=== PATIENT | female | born 1945 | race Caucasian/White ===

== ENCOUNTER 2023-04-26 10:14 | Outpatient (OUT) | payer MEDICARE, OTHER, SELFPAY ==
--- NOTE | 2023-04-26 | XR_ITS ---
The [address] [address] Patient Name: HOLA REESE MRN: [id number] date: 1945 Sex: F Assigned Patient Location: [facility] Current Patient Location: [facility] Accession/Order Number: [id number] Exam Date: 04/26/2023 10:44 Report Date: 04/26/2023 16:33 At the request of: REJI SINHA Procedure: XR foot TIARA min 3V EXAM: XR foot TIARA min 3V HISTORY: BILATERAL FOOT PAIN. COMPARISON: None. TECHNIQUE: Routine views of the bilateral feet were obtained. FINDINGS/IMPRESSION: Left foot: 1. There is severe osteoarthritis at the tarsometatarsal, first metatarsophalangeal and at the interphalangeal joints of the toes. 2. There is no evidence of acute fracture or subluxation. Right foot: 1. There is severe osteoarthritis at the first metatarsophalangeal joint and at the tarsometatarsal joints and moderate osteoarthritis at the interphalangeal joints of the toes. 2. There is no evidence of acute fracture or subluxation. Electronically authenticated by: KARIN CAMARGO Date: 04/26/2023 16:33
== END 2023-04-26 10:15 | disposition home or self-care (01) ==
LOC: RAD 10:15
PROVIDERS: Visit Provider Podiatrist Foot & Ankle Surgery
DX: M79.671 Pain in right foot (principal); M79.672 Pain in left foot
CPT/HCPCS: 73630

== ENCOUNTER 2023-11-22 10:57 | Outpatient (OUT) | payer MEDICARE, OTHER, SELFPAY ==
--- NOTE | 2023-11-22 | XR_ITS ---
The [address] [address] Patient Name: HOLA REESE MRN: [id number] date: 1945 Sex: F Assigned Patient Location: Current Patient Location: Accession/Order Number: [id number] Exam Date: 11/22/2023 11:09 Report Date: 11/24/2023 07:01 At the request of: REJI SINHA Procedure: XR foot LT min 3V PROCEDURE: XR foot LT min 3V HISTORY: LEFT FOOT PAIN ; first and 5th toe pain; no known injury COMPARISON: XR foot bilateral 04/26/2023 FINDINGS: BONES:Questionable nondisplaced fracture involving base of 5th metatarsal. SOFT TISSUES:No visible soft tissue swelling. EFFUSION:None visible. OTHER: Negative. XR/XR foot LT min 3V IMPRESSION: 1. No acute or suspicious abnormality the first toe. 2. Nondisplaced fracture versus summation artifact involving base of 5th proximal phalanx. Fracture is suspected. Electronically authenticated by: KENNEDY SUAREZ Date: 11/24/2023 07:01
== END 2023-11-22 10:58 | disposition home or self-care (01) ==
LOC: EC 10:58
PROVIDERS: Visit Provider Podiatrist Foot & Ankle Surgery
DX: M79.672 Pain in left foot (principal)
CPT/HCPCS: 73630

== ENCOUNTER 2023-12-05 13:29 | Outpatient (RCR) | payer MEDICARE, OTHER, SELFPAY | END 2024-01-07 10:03 | disposition home or self-care (01) | LOC: PT 13:29 | PROVIDERS: PCP Family Medicine | DX: M48.061 Spinal stenosis, lumbar region without neurogenic claudication (principal); M47.27 Other spondylosis with radiculopathy, lumbosacral region | CPT/HCPCS: 97012; 97110; 97140; 97162; G0283 ==

== ENCOUNTER 2024-05-21 11:17 | Outpatient (OUT) | payer MEDICARE, OTHER, SELFPAY ==
--- NOTE | 2024-05-21 13:12 | P.CN_ITS ---
Consult Note: HPI Data of Consult Patient: new to practice Consult date: 05/21/24 Requesting Physician: Iker Downs MD Primary Care Provider: ERICH JASSO Family Provider: ERICH JASSO Consult Narrative Reason for consult: bilateral foot, bilateral leg pain Narrative: 79yof who presents for evaluation. longstanding pain throughout bilateral feet. notes occasional sharp, stabbing pain in big toes bilaterally. also notes pain in right thigh. imaging shows multilevel disc displacement with resultant nerve root compression at l3-4 and l5-s1. also has multilevel facet arthropathy noted. is scheduled for what sounds like lumbar epidural steroid injection at [facility] next week. uses gabapentin, which does not help much. denies adverse med side effects. cc:: CC: Iker Downs MD Review of Systems ROS Status of ROS 10 or more systems reviewed and unremark able except as noted in history and below Exam Narrative Exam Narrative: Psych-alert and oriented x 3. Attentive and appropriate, constitutionally normal, displays normal mood and affect per situation. There are no obvious deficits in memory, reasoning, or intellect.? Skin-no obvious rashes, bruising, erythema noted to the patient's area of pain.? Extremities- extremities are warm with minimal edema and palpable pulses. Lumbar-tenderness to palpation noted in the lumbar spine and paraspinal musculature. Pain is not elicited with flexion, extension, and lateral rotation of the lumbar spine. Range of motion is not diminished with these motions. Facet loading maneuvers are negative.? Strength-noted to be unremarkable Sensory-no notable sensory deficits in the bilateral lower extremities to touch or pinprick in all dermatomal distributions with the exception to decreased sensation to the bilateral L5, S1 dermatomal distribution Coordination remains intact.? Gait remains non-antalgic. Assessment and Plan Assessment and Plan (1) Lumbar stenosis with neurogenic claudication: (2) Diabetic peripheral neuropathy: Plan 79yof who presents for evaluation. failed conservative measures, as noted. imaging reviewed, as noted. will try to obtain lumbar mri and emg results from [facility]. discussed that she may benefit from injection at l5-s1 for pain in feet. will assess after she sees [facility]. at this point, will discontinue g abapentin and trial lyrica 100mg tid. may be candidate for qutenza in the future. follow up in 4 weeks.
== END 2024-05-21 11:18 | disposition home or self-care (01) ==
PROVIDERS: PCP Family Medicine; Visit Provider Anesthesiology
DX: M48.062 Spinal stenosis, lumbar region with neurogenic claudication (principal); E11.42 Type 2 diabetes mellitus with diabetic polyneuropathy
CPT/HCPCS: G0463

== ENCOUNTER 2024-07-04 12:56 | Outpatient (OUT) | payer MEDICARE, OTHER, SELFPAY ==
--- NOTE | 2024-07-04 13:40 | PM.CN ---
Consult Note: HPI Data of Consult Requesting Physician: Marizol Holt NP Primary Care Provider: ERICH JASSO Family Provider: ERICH JASSO Consult Narrative Reason for consult: bilateral foot, bilateral leg pain Narrative: 79yof who presents for evaluation. longstanding pain throughout bilateral feet. notes occasional sharp, stabbing pain in big toes bilaterally. also notes pain in right thigh. imaging shows multilevel disc displacement with resultant nerve root compression at l3-4 and l5-s1. also has multilevel facet arthropathy noted. following with [facility] for back pain. unsure what injections shes been recieving. at last visit she was started on pregabalin ordered 100mg TID however shes taking 300mg HS with benefit. cc:: CC: Marizol Holt NP Review of Systems ROS Status of ROS 10 or more systems reviewed and unremarkable except as noted in history and below [facility] Medical History (Updated 05/21/24 @ 14:50 by Ayaka Collazo, RN) Osteoarthritis ?M19.90 - Unspecified osteoarthritis, unspecified site (ICD-10) Neuropathy ?G62.9 - Polyneuropathy, unspecified (ICD-10) Diabetes ?E11.9 - Type 2 diabetes mellitus without complications (ICD-10) Surgical History (Updated 05/21/24 @ 14:50 by Ayaka Collazo, RN) History of carpal tunnel release ?Z98.890 - Other specified postprocedural states (ICD-10) History of knee replacement ?Z96.659 - Presence of unspecified artificial knee joint (ICD-10) History of hysterectomy ?Z90.710 - Acquired absence of both cervix and uterus (ICD-10) Meds Home Medications and Allergies Home Medications ?Medication ?Instructions ?Recorded ?Confirmed ?Type cetirizine 10 mg tablet (24Hour 10 mg PO DAILY PRN allergy symptoms 05/21/24 05/21/24 History Allergy) citalopram 20 mg tablet 20 mg PO DAILY 05/21/24 05/21/24 History clonazepam 0.5 mg tablet 0.5 mg PO DAILY 05/21/24 05/21/24 History fluticasone propionate 50 2 spray intranasal DAILY PRN 05/21/24 05/21/24 History mcg/actuation nasal allergy symptoms spray,suspension (24 Hour Allergy Relief) pravastatin 20 mg tablet 20 mg PO DAILY 05/21/24 05/21/24 History pregabalin 100 mg capsule (Lyrica) 100 mg PO TID #90 caps 05/21/24 Rx tirzepatide 5 mg/0.5 mL 5 mg subcut QWEEK 05/21/24 05/21/24 History subcutaneous pen injector (Mounjaro) pregabalin 100 mg capsule (Lyrica) 100 mg PO TID #90 caps 06/21/24 Rx Allergies Allergy/AdvReac Type Severity Reaction Status Date / Time levofloxacin (From Levaquin) Allergy Rash Verified 05/21/24 13:47 moxifloxacin (From Avelox) Allergy Rash Verified 05/21/24 13:47 aspirin AdvReac Unknown Verified 05/21/24 13:47 Exam Narrative Exam Narrative: Psych-alert and oriented x 3. Attentive and appropriate, constitutionally normal, displays normal mood and affect per situation. There are no obvious deficits in memory, reasoning, or intellect.? Skin-no obvious rashes, bruising, erythema noted to the patient's area of pain.? Extremities- extremities are warm with minimal edema and palpable pulses. Lumbar-tenderness to palpation noted in the lumbar spine and paraspinal musculature. Pain is not elicited with flexion, extension, and lateral rotation of the lumbar spine. Range of motion is not diminished with these motions. Facet loading maneuvers are negative.? Strength-noted to be unremarkable Sensory-no notable sensory deficits in the bilateral lower extremities to touch or pinprick in all dermatomal distributions with the exception to decreased sensation to the bilateral L5, S1 dermatomal distribution Coordination remains intact.? Gait remains non-antalgic. Assessment and Plan Assessment and Plan (1) Lumbar stenosis with neurogenic claudication: (2) Diabetic peripheral neuropathy: Plan pt not interested in interventional therapy with our office, would like to transfer care to [facility]. increase pregabalin 150mg BID, risks vs benefits reviewed. f/u in 6 weeks to assess medication changes unless [facility] takes over.
== END 2024-07-04 12:57 | disposition home or self-care (01) ==
PROVIDERS: PCP Family Medicine; Visit Provider Nurse Practitioner
DX: M48.062 Spinal stenosis, lumbar region with neurogenic claudication (principal); E11.42 Type 2 diabetes mellitus with diabetic polyneuropathy
CPT/HCPCS: G0463

== ENCOUNTER 2024-11-07 12:27 | Outpatient (OUT) | payer MEDICARE, OTHER, SELFPAY ==
--- OUTSIDE RECORDS SUMMARY | 2024-01-31 06:15 | XMS_ITS ---
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 Name Role Phone Mike Gillis DO Primary Care Provider Agustin Valdes [phone] Allergies Allergen (clinical drug ingredient) Drug/Non Drug Allergy documented on EMR Reaction Allergy Type Onset Date Status moxifloxacin Avelox rash Drug Allergy Acti ve Levaquin rash Drug Allergy Active aspirin Aspirin blood platelets Drug Allergy A ctive REASON FOR VISIT 2 month follow up Medications Medication SIG (Take, Route, Frequency, Duration) Notes Start Date End Date Status Multi For Her Active Flogen 250-650 MG as directed Orally Active Gabapentin 300 MG 1 capsule Orally Onc e a day Active Fludrocortisone Acetate 0.1 MG 2 tablets Oral Once a day for 90 days Active Magnesium Active Citalopram Hydrobromide 20 MG 1 tablet Orally Once a day Active Calcium Active Claritin 10 MG 1 tablet Orally Once a day Active Urea 40 % 1 application as nee ded Externally Once a day for 30 days 07/06/2023 Active Ozempic (0.25 or 0.5 MG/DOSE) 2 MG/3ML INJECT 0.5mg SUBCUTANEOUSLY once a WEEK Subcutaneous for 90 Days Active Social History Tobacco Use: Social History Observation Description Date Details (start date - stop date) Never Smoker NA - NA Tobacco Use/Smoking Question Answer Notes Patient is a nonsmoker Vital Signs Height 68 in 01/31/2024 Temperature 97.9 degrees Fahrenheit 01/31/20 24 Heart Rate 80 /min 01/31/2024 Oximetry 97 % 01/31/2024 Encounters Encounter Location Date Provider Diagnosis [facility] (PODIATRY) [address] [place] [address] [place] [address] 01/31/2024 Agustin Bentley Left foot pain M79.672 ; Type 2 diabetes mellitus with diabetic polyneuropathy E11.42 and Primary osteoarthritis, left ankle and foot M19.072 Assessments Encounter Date Diagnosis (ICD Code) Assessment Notes Treatment Notes Treatment Clinical Notes Section Notes 01/31/2024 Left foot pain (ICD-10 - M79.672) Patient follows up relating that she does feel little bit better but her pain is still seemingly out of proportion. I did review her x-rays which were obtained at last appointment and reviewed them with her. Radiographically she does have moderate to severe midfoot arthritis but this does not correspond to the patient's main issue. I believe her pain is likely secondary to neuropathy [place] from her back or diabetes. Gabapentin was increased and has not seemed to help. Patient is scheduled to undergo injections with pain management in a few weeks and I am hopeful that this will help her foot pain. I did provide a prescription for physical therapy for nerve desensitization, range of motion and strengthening. Patient may follow-up with me as needed 01/31/2024 Type 2 diabetes mellitus with diabetic polyneuropathy (ICD-10 - E11.42) 01/31/2024 Primary osteoarthritis, left ankle and foot (ICD-10 - M19.072) Plan Of Treatment Treatment Notes Assessment Notes Left foot pain Patient follows up r elating that she does feel little bit better but her pain is still seemingly out of proportion. I did review her x-rays which were obtained at last appointment and reviewed them with her. Radiographically she does have moderate to severe midfoot arthritis but this does not correspond to the patient's main issue. I believe her pain is likely secondary to neuropathy [place] from her back or diabetes. Gabapentin was increased and has not seemed to help. Patient is scheduled to undergo injections with pain management in a few weeks and I am hopeful that this will help her foot pain. I did provide a prescription for physical therapy for nerve desensitization, range of motion and strengthening. Patient may follow-up with me as needed Progress Notes * Kina DOUGLAS:1945 (78 yo F)Acc No.[id number]:01/31/2024 Follow Up Patient: Phoebe FERRER Provider: Skyler Bentley DPM, MS :1945 A ge:78 Y S ex:Female Date:01/31/2024 Address:[address], [id number] Pcp:Mike Gillis, DO Check In:09:51 AM ESTCheck O ut:10:24 AM EST Subjective: * Chief Complaints: * 2 month follow up * HPI: G eneral: Patient returns to office today for reevaluation of left foot pain. Patient states her pain is a little better . States her left great toe and lateral foot hurts alot & all the time. also has a dorsal foot 'bump' that causes discomfort periodically. She is using a compound from [employer] on her foot but can only use 3 days in a row and then take a break due to causing dry skin to her foot. Describes pain is achy/sore 06/18. * ROS: G eneral/Constitutional: Chills d enies. F ever d enies. W eight gain?denies. W eight loss d enies. S kin: Skin Ulcers d enies. S kin lesion(s) d enies. ? C ardiovascular: Difficulty breathing on exertion d enies. L eg cramps?denies. E lindsay d enies. C hest pain d enies. R espiratory: Difficulty breathing d enies. D yspnea d enies.?Cough d enies. G astrointestinal: Diarrhea d enies. N ausea d enies. V omiting?denies. M usculoskeletal: Bone/Joint Symptoms d enies. C care home Pain d enies.?Leg cramps d enies. N eurologic: Numbness d enies. T ingling d enies . G ait abnormality d enies. ? H ematology: Anemia D enies. E asy bruising d enies. ? A ll Other Systems: Review of Systems (ROS) S ee HPI for details,All others negative except those mentioned in HPI. * Active Problem List M20.21 Hallux rigidus, righ t foot Modified On:05/03/2023W/U Status:confirmed M77.41 Metatarsalgia, right foot Modified On:05/03/2023W/U Status:confirmed S92.302A Fracture of unspecif ied metatarsal bone(s), left foot, initial encounter for closed fracture Modified On:07/06/2023U Status:confirmed M76.72 Peroneal tendinitis, left leg Modified On:07/06/2023U Status:confirmed M19.072 Primary osteoarthrit is, left ankle and foot Modified On:05/03/2023U Status:confirmed E11.42 Type 2 diabetes mary itus with diabetic polyneuropathy Modified On:07/06/2023U Status:confirmed M79.672 Left foot pain Modified On:11/16/2023 Status:confirmed * Medical History: * Surgical History: l eft knee replacement hysterectomy left hand surgery * Hospitalization/Major Diagno stic Procedure: * Family History: F ather: diagnosed with Diabetes mellitus without mention of complication, type II or unspecified type, not stated as uncontrolled, Unspecified heart disease. B rother(s): diagnosed with Diabetes mellitus without mention of complication, type II or unspecified type, not stated as uncontrolled. * Social History: T obacco Use: T obacco Use/Smoking P atient is a n onsmoker * Medications: T akingCalcium Citalopram Hydrobromide 20 MG Tablet 1 tablet Orally Once a day Claritin(Loratadine) 10 MG Tablet 1 tablet Orally Once a day Flogen(Hesperidin-Diosmin) 250-650 MG Tablet as directed Orally Fludrocortisone Acetate 0.1 MG Tablet 2 tablets Oral Once a day Gabapentin 300 MG Capsule 1 capsule Orally Once a day Magnesium Multi For Her Ozempic (0.25 or 0.5 MG/DOSE)(Semaglutide(0.25 or 0.5MG/DOS)) 2 MG/3ML Solution Pen-injector INJECT 0.5mg SUBCUTANEOUSLY once a WEEK Subcutaneous Urea 40 % Cream 1 application as needed Externally Once a day Taking Calcium Taking Citalopram Hydrobromide 20 MG Tablet 1 tablet Orally Once a day Taking Claritin(Loratadine) 10 MG Tablet 1 tablet Orally Once a day Taking Flogen(Hesperidin-Diosmin) 250-650 MG Tablet as directed Orally Taking Fludrocortisone Acetate 0.1 MG Tablet 2 tablets Oral Once a day Taking Gabapentin 300 MG Capsule 1 capsule Orally Once a day Taking Magnesium Taking Multi For Her Taking Ozempic (0.25 or 0.5 MG/DOSE)(Semaglutide(0.25 or 0.5MG/DOS)) 2 MG/3ML Solution Pen-injector INJECT 0.5mg SUBCUTANEOUSLY once a WEEK Subcutaneous Taking Urea 40 % Cream 1 application as needed Externally Once a day DiscontinuedAzithromycin 250 MG Tablet Oral Ozempic Urea 20 Intensive Hydrating(Urea) 20 % Cream apply 1 APPLICATION if needed externally once daily for 30 DAYS External Medication List reviewed and reconciled with the patientDiscontinued Azithromycin 250 MG Tablet Oral Discontinued Ozempic Discontinued Urea 20 Intensive Hydrating(Urea) 20 % Cream apply 1 APPLICATION if needed externally once daily for 30 DAYS External Medication List reviewed and reconciled with the patient * Allergies: A spirin: blood plateletsLevaquin: rashAvelox: rashno[Allergies Verified] Objective: * Vitals: H t: 68 in, Temp:97.9F, HR:80/min, Pain scale:31-10, Oxygen sat %:97%, Ht-cm: 172.72 cm. * Examination: P odiatry Examination: SKIN: s kin intact, n o sign of infection. MUSCULOSKELETAL: P atient's pain is out of proportion even with light touch over the great toe and lateral border of the foot. Any sort of range of motion of the foot or ankle elicits extreme pain. Patient does have a mild cavus foot with midfoot osteophyte but no significant swelling or erythema. Strength testing is guarded bilaterally.? NEUROLOGICAL: l ight touch sensation intact but hypersensitive along the first and fifth metatarsals.. VASCULAR: P edal pulses palpable, C apillaryrefill is brisk to toe, mild varicose veins noted bilaterally. . Assessment: * Assessment: 1. L eft foot pain - M79.672 (Primary) 2 . T ype 2 diabetes mellitus with diabetic polyneuropathy - E11.42 3 . P rimary osteoarthritis, left ankle and foot - M19.072 Plan: * Treatment: * Procedure Codes: * * Sign off status: Completed Visit Status: C HK (Check Out) true * Provider: Skyler Bentley DPM, MS Date: 1 Generated for Angie meadows/[employer]/eTransmitting on: 0 11/07/2024 12:32 PM EDT History and Physical Notes * HPI (History of Present Illness) Category Sub-Category Detail Notes Category Not es General Patient returns to office today for reevaluation of left foot pain. Patient states her pain is a little better . States her left great toe and lateral foot hurts alot & all the time. also has a dorsal foot 'bump' that causes discomfort periodically. She is using a compound from [employer] on her foot but can only use 3 days in a row and then take a break due to causing dry skin to her foot. Describes pain is achy/sore 06/18. Examination Category Sub-Category Detail Notes Category Not es Podiatry Examination SKIN: skin intact, no sign of infection MUSCULOSKELETAL: Patient's pain is ou t of proportion even with light touch over the great toe and lateral border of the foot. Any sort of range of motion of the foot or ankle elicits extreme pain. Patient does have a mild cavus foot with midfoot osteophyte but no significant swelling or erythema. Strength testing is guarded bilaterally NEUROLOGICAL: light touch sensatio n intact but hypersensitive along the first and fifth metatarsals. VASCULAR: Pedal pulses palpable, Capillary refill is brisk to toe, mild varicose veins noted bilaterally.
--- OUTSIDE RECORDS SUMMARY | 2024-03-27 06:30 | XMS_ITS ---
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 Role Phone Mike Gillis DO Primary Care Provider Agustin Valdes [phone] Allergies Allergen (clinical drug ingredient) Drug/Non Drug Allergy documented on EMR Reaction Allergy Type Onset Date Status moxifloxacin Avelox rash Drug Allergy Acti ve Levaquin rash Drug Allergy Active aspirin Aspirin blood platelets Drug Allergy A ctive REASON FOR VISIT 8 week f/u Medications Medication SIG (Take, Route, Frequency, Duration) Notes Start Date End Date Status Urea 40 % 1 application as nee ded Externally Once a day for 30 days 07/06/2023 Active Ozempic (0.25 or 0.5 MG/DOSE) 2 MG/3ML INJECT 0.5mg SUBCUTANEOUSLY once a WEEK Subcutaneous for 90 Days Active Multi For Her Active Citalopram Hydrobromide 20 MG 1 tablet Orally Once a day Active Calcium Active Gabapentin 300 MG 1 capsule Orally Onc e a day Active Fludrocortisone Acetate 0.1 MG 2 tablets Oral Once a day for 90 days Active Magnesium Active Flogen 250-650 MG as directed Orally Active Claritin 10 MG 1 tablet Orally Once a day Active Social History Tobacco Use: Social History Observation Description Date Details (start date - stop date) Never Smoker NA - NA Tobacco Use/Smoking Question Answer Notes Patient is a nonsmoker Problems Problem Type SNOMED Code ICD Code Onset Dates Problem Status W/U Status Risk Notes Problem [id number] 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) Active confirmed Vital Signs Height 68 in 03/27/2024 Temperature 97.9 degrees Fahrenheit 03/27/20 24 Heart Rate 78 /min 03/27/2024 Oximetry 96 % 03/27/2024 Encounters Encounter Location Date Provider Diagnosis [facility] (PODIATRY) [address] [place] [address] [place] [address] 03/27/2024 Agustin Bentley Causalgia of bilateral lower limbs G57.73 ; Primary osteoarthritis, left ankle and foot M19.072 ; Type 2 diabetes mellitus with diabetic polyneuropathy E11.42 and Corns and callosities L84 Assessments Encounter Date Diagnosis (ICD Code) Assessment Notes Treatment Notes Treatment Clinical Notes Section Notes 03/27/2024 Causalgia of bilateral lower limbs (ICD-10 - G57.73) Patient's symptoms subjectively and objectively are concerning for chronic regional pain syndrome. There is skin discoloration that is notable today as well as hypersensitivity bilaterally. Her pain is definitely out of proportion. She does have midfoot arthritis and mild hallux valgus but I do not recommend any surgical intervention for these issues as they do not correspond to the patient's subjective pain. I recommended continue following up with pain management 03/27/2024 Primary osteoarthritis, left ankle and foot (ICD-10 - M19.072) 03/27/2024 Type 2 diabetes mellitus with diabetic polyneuropathy (ICD-10 - E11.42) 03/27/2024 Corns and callosities (ICD-10 - L84) I recommended moisturizer and a pumice stone to be used daily. Cover fissure with a Band-Aid. Follow-up in 3 weeks if not improved Plan Of Treatment Treatment Notes Assessment Notes Causalgia of bilateral lower limbs Patie nt's symptoms subjectively and objectively are concerning for chronic regional pain syndrome. There is skin discoloration that is notable today as well as hypersensitivity bilaterally. Her pain is definitely out of proportion. She does have midfoot arthritis and mild hallux valgus but I do not recommend any surgical intervention for these issues as they do not correspond to the patient's subjective pain. I recommended continue following up with pain management Corns and callosities I recommended mois turizer and a pumice stone to be used daily. Cover fissure with a Band-Aid. Follow-up in 3 weeks if not improved Progress Notes * Libby DOUGLASOB:1945 (78 yo F)Acc No.[id number]:03/27/2024 Follow Up Patient: Phoebe FERRER Provider: Skyler Bentley DPM, MS :1945 A ge:78 Y S ex:Female Date:03/27/2024 Address:[address] [id number] Pcp:Mike Gillis, DO Check In:10:20 AM ESTCheck O ut:11:09 AM EST Subjective: * Chief Complaints: * 8 week f/u * HPI: G eneral: Patient returns to office today for bilateral foot pain. She has been having increased left foot pain in her great toe. Today she rates her pain 6/10 in b ut can reach 10/10 at times. She realtes that it feels like a shooting pain in her left great toe. TOday she is also having pain in her right foot. The pain is located in her right plantar heel and metatarsal fat pad. she states her right foot is hard to put pressure on and painful to walk. Patient did under go injections with pain managment but did not help with foot pain like we hoped. Patient has not started physical therapy but did finish balance therapy that she was doing at the [facility] in [place]. S he is continuing to use a compound from [facility] which she realted dries out her skin. * Active Problem List M20.21 Hallux rigidus, righ t foot Modified On:05/03/2023U Status:confirmed M77.41 Metatarsalgia, right foot Modified On:05/03/2023U Status:confirmed S92.302A Fracture of unspecif ied metatarsal bone(s), left foot, initial encounter for closed fracture Modified On:07/06/2023U Status:confirmed M76.72 Peroneal tendinitis, left leg Modified On:07/06/2023U Status:confirmed M19.072 Primary osteoarthrit is, left ankle and foot Modified On:05/03/2023 Status:confirmed E11.42 Type 2 diabetes mary itus with diabetic polyneuropathy Modified On:07/06/2023U Status:confirmed M79.672 Left foot pain Modified On:08/07/2024W/U Status:confirmed G57.73 Causalgia of bilater al lower limbs Modified On:03/27/2024W/U Status:confirmed * Medical History: * Surgical History: l eft knee replacement hysterectomy left hand surgery * Hospitalization/Major Diagno stic Procedure: N o Hospitalization History. * Family History: F ather: diagnosed with [...] application as needed Externally Once a day * Allergies: A spirin: blood plateletsLevaquin: rashAvelox: rashno[Allergies Verified] Objective: * Vitals: H t: 68 in, Temp:97.9F, HR:78/min, Oxygen sat %:96%, Ht-cm: 172.72 cm. * Examination: P odiatry Examination: SKIN: H yperkeratotic skin On plantar heels and over the forefoot especially medially. There is a small fissure on the posterior right heel. No signs of infection. MUSCULOSKELETAL: P ain on palpation globally over bilateral feet across the midfoot and toes as well as over the malleoli. Mild hallux valgus. NEUROLOGICAL: l ight touch sensation intact and is hypersensitive to all nerve distributions with the right being more severe than the left. VASCULAR: P edal pulses palpable, C apillaryrefill is brisk to toe, discoloration ofSkin: With the right foot being more pale in the left foot being red and warm.. Assessment: * Assessment: 1. C ausalgia of bilateral lower limbs - G57.73 (Primary) 2 . P rimary osteoarthritis, left ankle and foot - M19.072 3 . T ype 2 diabetes mellitus with diabetic polyneuropathy - E11.42 4 . C orns and callosities - L84 Plan: * Treatment: 2. C orns and callosities Notes: I recommended moisturizer and a pumice stone to be used daily. Cover fissure with a Band-Aid. Follow-up in 3 weeks if not improved * Procedure Codes: * * Sign off status: Completed Visit Status: C HK (Check Out) true * Provider: Skyler Bentley DPM, MS Date: 05/28/2023 Generated for Angie meadows/[employer]/Gunnaritting on: 0 11/07/2024 12:32 PM EDT History and Physical Notes * HPI (History of Present Illness) Category Sub-Category Detail Notes Category Not es General Patient returns to office today for bilateral foot pain. She has been having increased left foot pain in her great toe. Today she rates her pain 6/10 in but can reach 10/10 at times. She realtes that it feels like a shooting pain in her left great toe. TOday she is also having pain in her right foot. The pain is located in her right plantar heel and metatarsal fat pad. she states her right foot is hard to put pressure on and painful to walk. Patient did under go injections with pain managment but did not help with foot pain like we hoped. Patient has not started physical therapy but did finish balance therapy that she was doing at the [facility] in [place]. She is continuing to use a compound from [facility] which she realted dries out her skin. Examination Category Sub-Category Detail Notes Category Not es Podiatry Examination SKIN: Hyperkerato tic skin On plantar heels and over the forefoot especially medially. There is a small fissure on the posterior right heel. No signs of infection MUSCULOSKELETAL: Pain on palpation gl obally over bilateral feet across the midfoot and toes as well as over the malleoli. Mild hallux valgus NEUROLOGICAL: light touch sensatio n intact and is hypersensitive to all nerve distributions with the right being more severe than the left VASCULAR: Pedal pulses palpable, Capillary refill is brisk to toe, discoloration ofSkin: With the right foot being more pale in the left foot being red and warm.
--- OUTSIDE RECORDS SUMMARY | 2024-05-15 06:15 | XMS_ITS ---
Author Organization [facility] in [place] Address [address] [place] [address] Care Team Providers Care Clinical Researcher Name Role Phone Mike Gillis DO Primary Care Provider Agustin Valdes [phone] Allergies Allergen (clinical drug ingredient) Drug/Non Drug Allergy documented on EMR Reaction Allergy Type Onset Date Status moxifloxacin Avelox rash Drug Allergy Acti ve Levaquin rash Drug Allergy Active aspirin Aspirin blood platelets Drug Allergy A ctive Reason For Referral Reason Referral to Dr. Garnica Diagnosis 1 Causalgia of bilater al lower limbs (G57.73) Referral Organization [facility] (PODIATRY) Referring Provider First Name Agustin Referring Provider Last Name Mc Referring Provider Speciality Podiatry Referred Provider Specialty Pain Medicin e Referral Priority Routine REASON FOR VISIT left great toe pain Medications Medication SIG (Take, Route, Frequency, Duration) Notes Start Date End Date Status Ozempic (0.25 or 0.5 MG/DOSE) 2 MG/3ML INJECT 0.5mg SUBCUTANEOUSLY once a WEEK Subcutaneous for 90 Days Active Urea 40 % 1 application as nee ded Externally Once a day for 30 days 07/06/2023 Active Magnesium Active Multi For Her Active Gabapentin 300 MG 1 capsule Orally Onc e a day Active Flogen 250-650 MG as directed Orally Active Citalopram Hydrobromide 20 MG 1 tablet Orally Once a day Active Claritin 10 MG 1 tablet Orally Once a day Active Calcium Active Fludrocortisone Acetate 0.1 MG 2 tablets Oral Once a day for 90 days Active Social History Tobacco Use: Social History Observation Description Date Details (start date - stop date) Never Smoker NA - NA Tobacco Use/Smoking Question Answer Notes Patient is a nonsmoker Problems Problem Type SNOMED Code ICD Code Onset Dates Problem Status W/U Status Risk Notes Problem [id number] Other hammer toe(s) (acquired), left foot (M20.42) Active confirmed Vital Signs Height 68 in 05/15/2024 Temperature 97.0 degrees Fahrenheit 05/15/19 25 Heart Rate 78 /min 05/15/2024 Oximetry 98 % 05/15/2024 Encounters Encounter Location Date Provider Diagnosis [facility] (PODIATRY) [address] [place] [address] [place] [address] 05/15/2024 Agustin Bentley Causalgia of bilateral lower limbs G57.73 ; Type 2 diabetes mellitus with diabetic polyneuropathy E11.42 and Other hammer toe(s) (acquired), left foot M20.42 Assessments Encounter Date Diagnosis (ICD Code) Assessment Notes Treatment Notes Treatment Clinical Notes Section Notes 05/15/2024 Causalgia of bilateral lower limbs (ICD-10 - G57.73) Patient seen and evaluated. Patient education provided and all questions answered to her satisfaction. At last visit I discussed referral to pain management however this appointment was never made and I believe that, as stated in my previous note, that she has minor orthopedic type issues which include adductovarus fifth toe, mild bunion and midfoot arthritis however her pain is out of proportion. She also relates that pain is present at rest and at night with even the bed sheets on her toes.I believe her pain out of proportion is either secondary to CRPS versus painful diabetic neuropathy. I again referred her to pain management for evaluation and treatment as seen fit. 05/15/2024 Type 2 diabetes mellitus with diabetic polyneuropathy (ICD-10 - E11.42) 05/15/2024 Other hammer toe(s) (acquired), left foot (ICD-10 - M20.42) A gel pad/sleeve for her fifth toe was dispensed and she may attempt this to see if this makes her more comfortable. I do not recommend any invasive treatment including surgery or injections until she can be evaluated by pain management Plan Of Treatment Treatment Notes Assessment Notes Causalgia of bilateral lower limbs Patie nt seen and evaluated. Patient education provided and all questions answered to her satisfaction. At last visit I discussed referral to pain management however this appointment was never made and I believe that, as stated in my previous note, that she has minor orthopedic type issues which include adductovarus fifth toe, mild bunion and midfoot arthritis however her pain is out of proportion. She also relates that pain is present at rest and at night with even the bed sheets on her toes.I believe her pain out of proportion is either secondary to CRPS versus painful diabetic neuropathy. I again referred her to pain management for evaluation and treatment as seen fit. Other hammer toe(s) (acquired), left roberta t A gel pad/sleeve for her fifth toe was dispensed and she may attempt this to see if this makes her more comfortable. I do not recommend any invasive treatment including surgery or injections until she can be evaluated by pain management Referrals Referral Date Details 05/15/2024 05/15/2024, Referral to Dr. Garnica Progress Notes * Libby DOUGLASOB:1945 (79 yo F)Acc No.[id number]:05/15/2024 Follow Up Patient: Phoebe FERRER Provider: Skyler Bentley DPM, MS :1945 A ge:79 Y S ex:Female Date:05/15/2024 Address:[facility] [address] [place], [id number] Pcp:Mike Gillis, DO Check In:09:50 AM ESTCheck Al ut:11:42 AM EST Subjective: * Chief Complaints: * L eft great toe pain * HPI: G eneral: Patient returns to office today with increased right great toe pain. She states her pain reaches 9/10 when walking as well as at rest. She describes her pain as sharp shooting pains. She states that at times she has to take her sock and shoe off to massage her toe to ind comfort and alleviate the pain. She relates to periodic discoloration of bilateral feet but worse on the left. She has difficulty sleeping secondary to pain which is exacerbated by even the sheets running over her feet. She relates that she was recently seen by neurology at [facility] for workup for Parkinson's which was reportedly negative. She also attempted topical compound on her feet which did not help at all. She has not seen pain management as recommended at last appointment. * ROS: G eneral/Constitutional: Chills d enies. [...] M usculoskeletal: Bone/Joint Symptoms d enies. C jazmine Pain d enies.?Leg cramps d enies. N [...] On:07/06/2023U Status:confirmed M79.672 Left foot pain Modified On:11/16/2023U Status:confirmed G57.73 Causalgia of bilater al lower limbs Modified On:03/27/2024U Status:confirmed M20.42 Other hammer toe(s) (acquired), left foot Modified On:05/15/2024/U Status:confirmed * Medical History: * Surgical History: l eft knee replacement hysterectomy left hand surgery * Hospitalization/Major Diagno stic Procedure: N o Hospitalization History. * Family History: F ather: diagnosed with Unspecified heart disease, Diabetes mellitus without mention of complication, type II or unspecified type, not stated as uncontrolled. B rother(s): diagnosed with Diabetes mellitus without [...] application as needed Externally Once a day Medication List reviewed and reconciled with the patientTaking Calcium Taking Citalopram Hydrobromide 20 MG Tablet [...] application as needed Externally Once a day Medication List reviewed and reconciled with the patient * Allergies: A spirin: blood plateletsLevaquin: rashAvelox: rashno[Allergies Verified] Objective: * Vitals: H t: 68 in, Temp:97.0F, HR:78/min, Pain scale:61-10, Oxygen sat %:98%, Ht-cm: 172.72 cm. * Examination: P odiatry Examination: SKIN: s kin intact, n o sign of infection. MUSCULOSKELETAL: M ild hallux valgus deformity noted bilaterally as well as adductovarus fifth toe which is worse on the left compared to the right. Muscle strength is equal and symmetric in all planes. Examination ofRange of Motion: Is difficult given patient's pain out of proportion which is seemingly little worse on the left. NEUROLOGICAL: l ight touch sensation intact but is hypersensitive with pain out of proportion along the medial forefoot and into the left great toe. Hypersensitivity also noted on the dorsal right foot.. VASCULAR: P edal pulses palpable, C apillaryrefill is brisk to toe, D igitalhair absent. No swelling. No discoloration noted today. Assessment: * Assessment: 1. C ausalgia of bilateral lower limbs - G57.73 (Primary) 2 . T ype 2 diabetes mellitus with diabetic polyneuropathy - E11.42 3 . O ther hammer toe(s) (acquired), left foot - M20.42 Plan: * Treatment: 2. O ther hammer toe(s) (acquired), left foot Notes: A gel pad/sleeve for her fifth toe was dispensed and she may attempt this to see if this makes her more comfortable. I do not recommend any invasive treatment including surgery or injections until she can be evaluated by pain management * Procedure Codes: * * Sign off status: Completed Visit Status: C HK (Check Out) true * Provider: Skyler Bentley DPM, MS Date: 05/15/2024 Generated for Angie meadows/Bravo/Gunnaritting on: 0 11/07/2024 12:31 PM EDT History and Physical Notes * HPI (History of Present Illness) Category Sub-Category Detail Notes Category Not es General Patient returns to office today with increased right great toe pain. She states her pain reaches 9/10 when walking as well as at rest. She describes her pain as sharp shooting pains. She states that at times she has to take her sock and shoe off to massage her toe to ind comfort and alleviate the pain. She relates to periodic discoloration of bilateral feet but worse on the left. She has difficulty sleeping secondary to pain which is exacerbated by even the sheets running over her feet. She relates that she was recently seen by neurology at [facility] for workup for Parkinson's which was reportedly negative. She also attempted topical compound on her feet which did not help at all. She has not seen pain management as recommended at last appointment. Examination Category Sub-Category Detail Notes Category Not es Podiatry Examination SKIN: skin intact, no sign of infection MUSCULOSKELETAL: Mild hallux valgus d eformity noted bilaterally as well as adductovarus fifth toe which is worse on the left compared to the right. Muscle strength is equal and symmetric in all planes. Examination ofRange of Motion: Is difficult given patient's pain out of proportion which is seemingly little worse on the left NEUROLOGICAL: light touch sensatio n intact but is hypersensitive with pain out of proportion along the medial forefoot and into the left great toe. Hypersensitivity also noted on the dorsal right foot. VASCULAR: Pedal pulses palpable, Capillary refill is brisk to toe, Digital hair absent. No swelling. No discoloration noted today Consultation Request Notes Referral Date Referring Provider Referred Provider Not es 05/15/2024 Agustin Bentley , Referral t al Garnica
--- OUTSIDE RECORDS SUMMARY | 2024-10-08 06:00 | XMS_ITS ---
Author Organization [facility] Address [address] [place] [address] Care Team Providers Care Intake Man Name Role Phone Miri Domínguez Primary Care Provider [phone] Humera Fuentes [phone] REASON FOR VISIT BH f/u 2-4 weeks Encounters Encounter Location Date Provider Diagnosis [facility] [place] [address] [place] [address] 10/08/2024 Humera Fuentes Plan Of Treatment Next Appt Details Provider Name:Humera nevarez, 11/16/2024 09:00:00 AM, [facility] [place], [address], Progress Notes * ELISA DOUGLASOB:1945 (79 yo F)Acc No.[id number]:10/08/2024 BH F/U - Patient Patient: HOLA FERRER Provider: Felecia Fuentes :1945 A ge:79 Y S ex:Female Date:10/08/2024 Address:[address] [id number] Pcp:Miri Domínguez Subjective: * Chief Complaints: * 1 . BH f/u 2-4 weeks. Objective: Therapeutic Interventions: Assessment: Plan: * Images: Care Plan Details* * Electronic signature of SEBASTIEN Friend on 11/07/2024 at 12:31 PM EDT Sign off status: Pending * Provider: Felecia Fuentes Date: 0 10/08/2024 Generated for Angie meadows/Bravo/Kendell on: 0 11/07/2024 12:31 PM EDT
--- OUTSIDE RECORDS SUMMARY | 2024-10-30 05:30 | XMS_ITS ---
Author Organization [facility] Address [address] [place] [address] Care Team Providers Care Service Shop Foreman Name Role Phone Miri Domínguez Primary Care Provider Humera Fuentes [phone] REASON FOR VISIT BH f/u 2-4 weeks 10/08 Encounters Encounter Location Date Provider Diagnosis [facility] [address] [place] [address] 10/30/2024 Humera Fuentes Major depression, recurrent, chronic F33.9 Assessments Encounter Date Diagnosis (ICD Code) Assessment Notes Treatment Notes Treatment Clinical Notes Section Notes 10/30/2024 Major depression, recurrent, chronic (ICD-10 - F33.9) with anxious distress Plan Of Treatment Next Appt Details Provider Name:Humera nevarez, 11/16/2024 09:00:00 AM, [address] [place], [address], Progress Notes * ELISA DOUGLASOB:1945 (79 yo F)Acc No.[id number]:10/30/2024 F/U - Patient Patient: HOLA FERRER Provider: Felecia Fuentes :1945 A ge:79 Y S ex:Female Date:10/30/2024 Address:[address] [place], [id number] Pcp:Miri Domínguez Subjective: * Chief Complaints: * B H f/u 2-4 weeks RS 10/08 * Medications: Objective: Therapeutic Interventions: Assessment: * Assessment: 1. M cory depression, recurrent, chronic - F33.9 (Primary) N otes :with anxious distress Plan: * Procedure Codes: G 0470 PPS MENTAL HLTH EST [id number] EST PT&/FAMILY 60 MIN (53+) * Images: Care Plan Details* Problem B H F/U Progress Note, Assessing Risks/Immediate Needs Addendum Present At Appointment: Skyler chapman Session Type: F chelsey to Face Start Time/End Time: 9 :33am - 10:27am: 54 minutes Mental Status Examination Orientation: O riented x 4 Mood: A nxious Affect: C onstricted Insight/Judgment: G ood Thought Process: C omments :logical, goal directed and coherent Speech: N ormal Intervention Risk Assessment: P T denies all areas of risk. No contrary indications present. Therapy Modality: c ognitive behavioral;dialectical behavior therapy Interventions: a ssess safety risks;cognitive challenging;cognitive refocusing;cognitive reframing;encourage expression of needs;exploration of coping skills;exploration of relationship problems;healthy boundaries;identify unmet emotional needs;increase awareness of warning signs to triggers;psycho-education;reflective listening;process trauma/significant life events;review mood symptoms and triggers;supportive reflectionComments :Therapist and patient explored past and present stressors. Challenged negative thinking patterns. Encouraged increased self-care behaviors. Explored treatment goals and needs due to therapist leaving the agency. Response to Intervention: Skyler chapman engaged well during the appt., with minor prompts and encouragement. Patient reflected on how while she was waiting for today's appt., to start she began feeling significant anxiety and took several deep breaths and this was able to help her. 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 Patient reflected on her past marriage and how this impacted her present mood. Patient expressed how she has continued to improve her boundaries with her son. Patient expressed sadness upon hearing therapist is leaving the agency. Progress: m oderate-high Plan Recommended Frequency of Morgan atment: a s neededComments :3-4 weeks Homework: e xplore self-talk;mindfulness;healthy boundaries BH Case Management Assessing Risks/Immediate Needs Follow Up For Care/Coordinat ion P atient scheduled for for follow-up counseling appt. * Sign off status: Completed true * Provider: Felecia Fuentes Date: 10/30/2024 Generated for Angie Scruggs/Kendell on: 11/07/2024 12:31 PM EDT
--- OUTSIDE RECORDS SUMMARY | 2024-11-07 12:31 | XMS_ITS | Clinical Summary ---
Author Organization [facility] Address [address] [place] [address] Phone Care Team Providers Care Developer Programmer Analyst Name Role Phone Unavailable Primary Care Provider Unavailabl e Social History Tobacco Use Types Packs/Day Years Used Date Smoking Tobacco: Never Assessed Comments Unknown Sex and Gender Information Value Date Recorded Sex Assigned at Not on file Legal Sex Female 9:56 PM EST Gender Identity Not on file Sexual Orientation Not on file Plan of Treatment Not on file
--- OUTSIDE RECORDS SUMMARY | 2024-11-07 12:32 | XMS_ITS | Patient Health Record ---
Author Organization [facility] [place] Address [address] [place] [address] Care Team Providers Care Lathe Scalper Operator Name Role Phone Mike Gillis DO Primary Care Provider Reji Valdes [phone] Allergies Allergen (clinical drug ingredient) Drug/Non Drug Allergy documented on EMR Reaction Allergy Type Onset Date Status moxifloxacin Avelox rash Drug Allergy Acti ve Levaquin rash Drug Allergy Active aspirin Aspirin blood platelets Drug Allergy A ctive Results Component Value Reference Range Notes XR foot LT min 3V (Not yet r eviewed by provider) Interpretation: Performing Lab: Notes/Report: Source Facility: [place] [address] XRay Report Signed Patient: Phoebe Douglas MR#: [id number] : 1945 Acct:[id number] Age/Sex: 78 / F ADM Date: 11/22/23 Loc: EC Attending Dr: Reji Bentley D.P.M. Ordering Physician: Reji Bentley D.P.M. Date of Service: 11/22/23 Procedure(s): XR foot LT min 3V Accession Number(s): [id number] cc: Reji Bentley D.P.M.; Physician,Non-Staff [place] [address] Patient Name: PHOEBE DOUGLAS MRN: [id number] date: 1945 Sex: F Assigned Patient Location: EC Current Patient Location: Accession/Order Number: [id number] Exam Date: 11/22/2023 11:09 Report Date: 11/24/2023 07:01 At the request of: REJI BENTLEY Procedure: XR foot LT min 3V PROCEDURE: XR foot LT min 3V HISTORY: LEFT FOOT PAIN ; first and 5th toe pain; no known injury COMPARISON: XR foot bilateral 04/26/2023 FINDINGS: BONES:Questionable nondisplaced fracture involving base of 5th metatarsal. SOFT TISSUES:No visible soft tissue swelling. EFFUSION:None visible. OTHER: Negative. XR/XR foot LT min 3V IMPRESSION: 1. No acute or suspicious abnormality the first toe. 2. Nondisplaced fracture versus summation artifact involving base of 5th proximal phalanx. Fracture is suspected. Electronically authenticated by: CHINTAN MITTAL Date: 11/24/2023 07:01 Dictated By: Chintan Mittal M.D. Signed By: 11/24/23703 DD/ 0 TD/TT: [facility] Bander Hand: [place] [address] XRay Report Signed Patient: Estrellita Douglas MR#: [id number] : 1945 Acct:[id number] Age/Sex: 78 / F ADM Date: 11/22/23 Loc: EC Attending Dr: Reji Bentley D.P.M. Ordering Physician: Reji Bentley D.P.M. Date of Service: 11/22/23 Procedure(s): XR foot LT min 3V Accession Number(s): [id number] cc: Reji Bentley D.P.M.; Physician,Non-Staff [place] [address] Patient Name: PHOEBE DOUGLAS MRN: [id number] date: 1945 Sex: F Assigned Patient Location: EC Current Patient Location: Accession/Order Numb er: [id number] Exam Date: 11/22/2023 11:09 Report Date: 11/24/2023 07:01 At the request of: REJI BENTLEY Procedure: XR foot LT min 3V PROCEDURE: XR foot LT min 3V HISTORY: LEFT FOOT P AIN ; first and 5th toe pain; no known injury COMPARISON: XR foot bilateral 04/26/2023 FINDINGS: BONES:Questionable n ondisplaced fracture involving base of 5th metatarsal. SOFT TISSUES:No visi ble soft tissue swelling. EFFUSION:None visible. OTHER: Negative. X R/XR foot LT min 3V IMPRESSION: 1. No acute or suspi cious abnormality the first toe. 2. Nondisplaced frac ture versus summation artifact involving base of 5th proximal phalanx. Fr acture is suspected. Electronically authe nticated by: CHINTAN MITTAL Date: 11/24/2023 07:01 Dictated By: Chintan Mittal M.D. Signed By: 11/24/23703 DD/ 0 TD/TT: [facility]: Reason For Referral Reason see attached order Diagnosis 1 Left foot pain (M79. 672) Referral Organization [facility] (PODIAT[facility]) Referring Provider First Name Reji Referring Provider Last Name [facility] Referring Provider Speciality Podiatry Referred Provider Specialty Pharmacist Referral Priority Routine Reason Referral to Dr. Garnica Diagnosis 1 Causalgia of bilater al lower limbs (G57.73) Referral Organization [facility] ([facility]) Referring Provider First Name Reji Referring Provider Last Name [facility] Referring Provider Speciality Podiatry Referred Provider Specialty Pain Medicin e Referral Priority Routine Medications Medication SIG (Take, Route, Frequency, Duration) Notes Start Date End Date Status Flogen 250-650 MG as directed Orally Active Citalopram Hydrobromide 20 MG 1 tablet Orally Once a day Active Claritin 10 MG 1 tablet Orally Once a day Active Calcium Active Ozempic (0.25 or 0.5 MG/DOSE) 2 MG/3ML INJECT 0.5mg SUBCUTANEOUSLY once a WEEK Subcutaneous for 90 Days Active Urea 40 % 1 application as nee ded Externally Once a day for 30 days 07/06/2023 Active Magnesium Active Multi For Her Active Fludrocortisone Acetate 0.1 MG 2 tablets Oral Once a day for 90 days Active Gabapentin 300 MG 1 capsule Orally Onc e a day Active Social History Tobacco Use: Social History Observation Description Date Details (start date - stop date) Never Smoker NA - NA Tobacco Use/Smoking Question Answer Notes Patient is a nonsmoker Problems Problem Type SNOMED Code ICD Code Onset Dates Problem Status W/U Status Risk Notes Problem 37573436 Type 2 diabetes mellitus with diabetic polyneuropathy (E11.42) Active confirmed Problem 4318309220517744 Primary osteoarthritis, left ankle and foot (M19.072) Active confirmed Problem 856422048 Hallux rigidus, right foot (M20.21) Active confirmed Problem 680416594 Other hammer toe(s) (acquired), left foot (M20.42) Active confirmed Problem 296227219055866 Peroneal tendinitis, left leg (M76.72) Active confirmed Problem 396569386764423 Metatarsalgia, right foot (M77.41) Active confirmed Problem 56263434914825613 Fracture of unspecified metatarsal bone(s), left foot, initial encounter for closed fracture (S92.302A) Active confirmed Problem Left foot pain (M79.672) Active confirmed Problem 959554976 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) Active confirmed Vital Signs Heart Rate 78 /min 05/15/2024 Temperature 97.0 degrees Fahrenheit 05/15/2024 Oximetry 98 % 05/15/2024 Height 68 in 05/15/2024 Weight 175 lbs 11/22/2023 BMI 26.61 kg/m2 11/22/2023 Encounters Encounter Location Date Provider Diagnosis [facility] (PODI[facility]) [address] [place] [address] [place] [address] 11/22/2023 Reji Bentley Primary osteoarthritis, left ankle and foot M19.072 ; Type 2 diabetes mellitus with diabetic polyneuropathy E11.42 and Left foot pain M79.672 [facility] (PODIAT[facility]) [address] [place] [address] [place] [address] 01/31/2024 Reji Bentley Left foot pain M79.672 ; Type 2 diabetes mellitus with diabetic polyneuropathy E11.42 and Primary osteoarthritis, left ankle and foot M19.072 [facility] (PODI[facility]) [address] [place] [address] [place] [address] 03/27/2024 Reji Bentley Causalgia of bilateral lower limbs G57.73 ; Primary osteoarthritis, left ankle and foot M19.072 ; Type 2 diabetes mellitus with diabetic polyneuropathy E11.42 and Corns and callosities L84 [facility] (PODI[facility]) [address] [place] [address] [place] [address] 05/15/2024 Reji Bentley Causalgia of bilateral lower limbs G57.73 ; Type 2 diabetes mellitus with diabetic polyneuropathy E11.42 and Other hammer toe(s) (acquired), left foot M20.42 Assessments Encounter Date Diagnosis (ICD Code) Assessment Notes Treatment Notes Treatment Clinical Notes Section Notes 11/22/2023 Primary osteoarthritis, left ankle and foot (ICD-10 - M19.072) Patient seen and evaluated. Patient education provided. Patient recently had gabapentin increased by PCP has not seemed to help much. I [facility].I recommended alternative lacing and/or moleskin under the tongue of the shoe for additional padding. Referral was provided for new diabetic shoes. Patient will follow-up in 2 to 3 months no new x-rays are needed 11/22/2023 Type 2 diabetes mellitus with diabetic polyneuropathy (ICD-10 - E11.42) 03/27/2024 Causalgia of bilateral lower limbs (ICD-10 [...] left ankle and foot (ICD-10 - M19.072) 01/31/2024 Left foot pain (ICD-10 - M79.672) [...] with diabetic polyneuropathy (ICD-10 - E11.42) 05/15/2024 Causalgia of bilateral lower limbs (ICD-10 [...] she can be evaluated by pain management 01/31/2024 Primary osteoarthritis, left ankle and foot (ICD-10 - M19.072) 03/27/2024 Type 2 diabetes mellitus with diabetic polyneuropathy (ICD-10 - E11.42) 11/22/2023 Left foot pain (ICD-10 - M79.672) 03/27/2024 Corns and callosities (ICD-10 - L84) I recommended moisturizer and a pumice stone to be used daily. Cover fissure with a Band-Aid. Follow-up in 3 weeks if not improved Plan Of Treatment Pending Test Test Name Order Date XR Foot LT (3 views) * 11/22/2023 XR foot LT min 3V 11/24/2023 Insurance Providers Payer Name Payer Address Payer Phone Subscriber Number Group Number Insured Name Patient Relationship to Insured Coverage Start Date Coverage End Date [place] [address] [place] [address] [id number] Phoebe Douglas Self - patient is the insured [employer] [place] [address] [facility] [facility] MEDIC[facility] SUPP [facility] [address] [phone] [id number] PLAN Phoebe Caal Self - patient is the insured Medical (General) History Medical History History ICD Code hypotension diabetes arthritis Surgical History Surgery Date(Month/Year) left hand surgery left knee replacement hysterectomy
--- OUTSIDE RECORDS SUMMARY | 2024-11-07 12:33 | XMS_ITS | Patient Health Record ---
Author Organization [facility] Address [facility] [place] [address] Care Team Providers Care Rn Research Name Role Phone Lorraine Oneill MD Primary Care Provider UnavailZay Stern Unavailable [phone] Allergies Allergen (clinical drug ingredient) Drug/Non Drug Allergy documented on EMR Reaction Allergy Type Onset Date Status aspirin Aspirin Unknown Drug Allergy Active moxifloxacin Avelox Unknown Drug Allergy Acti ve Ciprofloxacin Unknown Drug Allergy Act jcarlos Levaquin Unknown Drug Allergy Active Reason For Referral No Information Medications Medication SIG (Take, Route, Frequency, Duration) Notes Start Date End Date Status Rosuvastatin Calcium 5 MG 1 tablet Orally Once a day Active Gabapentin 300 MG 1 capsule Orally Thr ee times a day Active Urea 20 Intensive Hydrating 20 % apply 1 APPLICATION if needed externally once daily for 30 DAYS; Duration: 30 Active Citalopram Hydrobromide 20 MG 1 tablet Orally Once a day A ctive Multivitamin Active Vitamin D3 5000 UNIT 1 capsule Orally On ce a week Active Calcium 600-200 MG-UNIT as directed Orally Active Ozempic 0.25 or 0.5 MG/DOSE as directed Subcutaneous Act jcarlos NexIUM 20 MG 1 capsule Orally Onc e a day Active clonazePAM 1 MG 1 tablet Orally Once a day Active Fluticasone Propionate 50 MCG/ACT 1 spray in each nostril Nasally Once a day Active Claritin 10 MG 1 capsule Orally Onc e a day Active Immunizations Vaccine Route Administration Date Status Comme nts Influenza Unknown 12/19/2017 Administered Pneumococcal Unknown 01/13/2015 Administered Social History Tobacco Use: Social History Observation Description Date Details (start date - stop date) Never Smoker NA - NA tobacco use Question Answer Notes Patient is a: non smoker Problems Problem Type SNOMED Code ICD Code Onset Dates Problem Status W/U Status Risk Notes Problem Polyneuropathy due to type 2 diabetes mellitus (583925832) Type 2 diabetes mellitus with diabetic polyneuropathy (E11.42) Active confirmed Problem Plantar nerve lesion (411927847) Lesion of plantar nerve, right lower limb (G57.61) Active confirmed Problem Plantar nerve lesion (991653560) Lesion of plantar nerve, left lower limb (G57.62) Active confirmed Problem Disorder of skin AND/OR subcutaneous tissue (25896535) Other specified disorders of the skin and subcutaneous tissue (L98.8) Active confirmed Problem Primary gout (06421874) Idiopathic gout, left ankle and foot (M10.072) Active confirmed Problem Localized, primary osteoarthritis of the ankle and/or foot (593679771) Primary osteoarthritis, left ankle and foot (M19.072) Active confirmed Problem Acquired hammer toe of right foot (6777318208719427 ) Other hammer toe(s) (acquired), right foot (M20.41) Active confirmed Problem Acquired hammer toe of left foot (9734462013904486 ) Other hammer toe(s) (acquired), left foot (M20.42) Active confirmed Problem Peroneal tendinitis (56603072) Peroneal tendinitis, left leg (M76.72) Active confirmed Problem Tibialis tendinitis (14673669) Posterior tibial tendinitis, right leg (M76.821) Active confirmed Problem Pain in right foot (840803618281098) Pain in right foot (M79.671) Active confirmed Problem Pain in left foot (775830630460436) Pain in left foot (M79.672) Active confirmed Problem Pain in limb (00860227) Pain in right toe(s) (M79.674) Active confirmed Problem Stress fracture of metatarsal bone (708422503) Stress fracture, right foot, initial encounter for fracture (M84.374A) Active confirmed Problem Stress fracture of right foot (disorder) (1205588570635961 4) Stress fracture, right foot, subsequent encounter for fracture with routine healing (M84.374D) Active confirmed Problem Stress fracture of metatarsal bone (032674580) Stress fracture, left foot, initial encounter for fracture (M84.375A) Active confirmed Problem Stress fracture of left foot (disorder) (8607077735540793 5) Stress fracture, left foot, subsequent encounter for fracture with routine healing (M84.375D) Active confirmed Problem Closed fracture of metatarsal bone (84541642) Nondisplaced fracture of second metatarsal bone, left foot, initial encounter for closed fracture (S92.325A) Active confirmed Problem Tinea unguium (007006956) Tinea unguium (B35.1) Active confirmed Plan Of Treatment Pending Test Test Name Order Date X ray: Foot, left 08/30/2013 X ray: Foot, right 08/30/2013 XR foot LT 2V 01/21/2020 XR foot LT 2V 11/11/2020 XR foot LT 2V 01/21/2023 XR foot RT 2V 11/11/2020 XR foot LT min 3V* 02/28/2023 XR foot LT min 3V* 08/09/2017 XR foot LT min 3V* 08/28/2018 XR foot RT min 3V* 06/05/2018 Insurance Providers Payer Name Payer Address Payer Phone Subscriber Number Group Number Insured Name Patient Relationship to Insured Coverage Start Date Coverage End Date Medicare Part B J-15 Part [facility] [place] [address] [id number] Phoebe Douglas Self - [place] [address] [phone] [id number] Phoebe Douglas Self - patient is the insured Medical (General) History Medical History History ICD Code diabetic gout hypercholesteremia hay fever IBS restless leg syndrome neuropathy low blood pressure Surgical History Surgery Date(Month/Year) hysterectomy 1993 1977 carpal tunnel release right 2006 lumpectomy 2001 Hospitalization History Reason Date(Month/Year) see sx hx
--- NOTE | 2024-11-07 13:00 | CA_ITS ---
[facility] Test Date: 2024-11-07 Pat Name: HOLA REESE Department: Room: - Gender: Female Account Management Specialist: Courtney Jalloh : 1945 Requested By: REJI SINHA Order Number: [id number] Heather MD: YVETTE PATEL M.D. Interpretive Statements Summary of the findings: Right leg: MELISSA= 1.19; TBI= 0.80. Doppler waveforms demonstrate biphasic flow at the posterior tibial and dorsalis pedis arteries. Left leg: MELISSA= 1.24; TBI= 0.88. Doppler waveforms demonstrate biphasic flow at the posterior tibial and dorsalis pedis arteries. Segmental pressures: Segmental pressures are normal bilaterally. Pulse volume recordings: PVRs at the high thigh, below knee, and ankle levels show normal waveforms. Conclusion: Right and left ankle-brachial indices are suggestive of normal overall arterial flow at rest. Toe-brachial indices are not suggestive of PAD. Segmental pressures show no segmental disease. Pulse volume recordings indicate good overall resting arterial flow. Overall normal physiologic examination. Electronically Signed On 11-07-2024 19:55:54 EDT by YVETTE PATEL M.D.
== END 2024-11-07 12:28 | disposition home or self-care (01) ==
PROVIDERS: PCP Family Medicine; Visit Provider Podiatrist Foot & Ankle Surgery
DX: R09.89 Other specified symptoms and signs involving the circulatory and respiratory systems (principal)
CPT/HCPCS: 93923

== ENCOUNTER 2025-01-15 13:53 | Outpatient (RCR) | payer MEDICARE, OTHER, SELFPAY | END 2025-02-22 09:54 | disposition home or self-care (01) | LOC: PT 13:53 | PROVIDERS: PCP Family Medicine; Visit Provider Podiatrist Foot & Ankle Surgery | DX: M76.71 Peroneal tendinitis, right leg (principal) | CPT/HCPCS: 97035; 97110; 97112; 97140; 97162 ==

== ENCOUNTER 2025-03-04 13:56 | Outpatient (OUT) | payer MEDICARE, OTHER, SELFPAY ==
--- OUTSIDE RECORDS SUMMARY | 2025-02-20 15:31 | XMS_ITS | Encounter Summary ---
Author Organization [facility] Address [address] [place] [address] Care Team Providers Care Salvager Name Role Phone Mike Gillis Primary Care Provider [phone] No, Referral Unavailable Unavailable Abhilash Conrad MD Unavailable [phone] Source Comments In the event this information is protected by the Federal Confidentiality of Alcohol and Drug AbusePatient Records regulations: The Federal rules restrict any use of the information to criminally investigate or prosecute any alcohol or drug abuse patient.[facility] Encounter Details DateTypeDepartmentCare Team (Latest Contact Info)Cjitvealuml14/12/2025 3:31 PM EST - 02/20/2025 11:59 PM ESTHospital Encounter [facility] Radiology Mammography [address] [place], [place] [id number] Discharge Disposition: Home Social History Tobacco UseTypesPacks/DayYears UsedDateSmoking Tobacco: NeverSmokeless Tobacco: NeverAlcohol UseStandard Drinks/WeekCommentsNot Currently0 (1 standard drink = 0.6 oz pure alcohol)PHQ-2AnswerDate RecordedPHQ-2 attrg0605Area Deprivation IndexAnswerDate RecordedNational Score (1-100), lower number is lower prtv253512/23/2022State Score (1-10), lower number is lower vmbu024 Data from: https://www.neighborhoodatlas.[facility].edu/. Last address used for nnmfdselpwc[address]CommentsNoSex and Gender InformationValueDate RecordedSex Assigned at TosqnLctubj60/28/2021 7:54 AM EDT Legal JmqYohegt35/02/2012 9:28 AM ESTGender GbpityjeQthtsl90/28/2021 7:54 AM EDT Sexual DvjtdmsnwwuHysfuval35/13/2022 1:03 PM ESTdocumented as of this encounter Functional Status * Are you deaf or do you have serious difficulty hearing?AnswerDate of YysjqwnsaoFyhzflLf93/15/2015 12:20 PM Esperanza Ortez LPN * Are you blind or do you have serious difficulty seeing, even when wearing glasses?AnswerDate of PtydtozezpOdyyrxLp67/15/2015 12:20 PM Esperanza Otrez LPN * Do you have serious difficulty walking or climbing stairs?AnswerDate of YamclnpgzjJhjdlwXf36/15/2015 12:20 PM Esperanza Ortez LPN * Do you have difficulty dressing or bathing?AnswerDate of AssessmentAuthorNo 07/24/2014 12:20 PM Esperanza Ortez LPN * Because of a physical, mental, or emotional condition, do you have difficulty doing errands alone such as visiting a doctor's office or shopping?AnswerDate of TqbxfysvfbGcyvnrNr91/15/2015 12:20 PM Esperanza Ortez LPN documented as of this encounter Mental Status * Because of a physical, mental, or emotional condition, do you have serious difficulty concentrating, remembering, or making decisions?AnswerEntry Date FdzgapZm22/15/2015 12:20 PM Esperanza Ortez LPN documented in this encounter Medications at Time of Discharge MedicationSigDispense QuantityRefillsLast FilledStart DateEnd pravastatin (PRAVACHOL) 10 mg tablet Take 1 tablet by mouth once daily. 90 tablet tirzepatide (MOUNJARO) 7.5 mg/0.5 mL pen injector Inject 7.5 mg subcutaneously one time a week. 2 mL 5004/18/2025 fludrocortisone (FLORINEF) 0.1 mg tablet Indications:Orthostatic lightheadednessTake 2 tablets by mouth once daily. 60 tablet citalopram (CELEXA) 20 mg tablet Take 1 tablet by mouth once daily.07/23/2024 DULoxetine (CYMBALTA) 30 mg capsule Take 1 capsule by mouth once daily.08/22/2024 pregabalin (LYRICA) 150 mg capsule Take 1 capsule by mouth two times a day.08/21/2024 lancets (TRUEPLUS LANCETS) 33 gauge Indications: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athy (HCC)Use with blood glucose test once daily 100 Each blood sugar diagnostic (TRUE METRIX GLUCOSE TEST STRIP) test strip Indications: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athy (HCC)Use with blood glucose test once daily 100 Strip Blood-Glucose Meter (TRUE METRIX GLUCOSE METER) Indications: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athy (HCC)1 Each once daily. 1 Each 09/08/2023 ergocalciferol 50,000 unit capsule (VITAMIN D2, DRISDOL) Indications:Vitamin D insufficiencyTAKE 1 CAPSULE ONE TIME WEEKLY 13 capsule clonazePAM (KLONOPIN) 0.5 mg tablet Take 1 tablet by mouth as needed. For restless leg dbdtalek50/08/2022 loratadine (CLARITIN) 10 mg tablet Take 10 mg by mouth once daily. fluticasone (FLONASE) 50 mcg/actuation nasal spray Use 2 Sprays in each nostril twice daily. pen needle, diabetic (COMFORT EZ PEN NEEDLES) 33 gauge x 5/16 ndle Indications:Well controlled type 2 diabetes mellitus with neurological manifestations (HCC)To inject weekly 10 Each MULTIVITAMIN (MULTI-DAY ORAL) Take by mouth once daily. calcium carbonate 600 mg-cholecalciferol 200 units (CALCIUM 600 + D,3,) 600 mg(1,500mg) -200 unit tab Take 1 tablet by mouth once daily. ocumented as of this encounter Progress Notes * Elayne Estrella RT(R) - 02/20/2025 3:40 PM EST Radiology Service Progress Note PATIENT NAME: Phoebe Douglas DATE OF SERVICE: February 20, 2025 TIME: 5:06 PM PATIENT IDENTITY VERIFICATION COMPLETED USING TWO (2) IDENTIFIERS: Name and Date of confirmedby patient verbally. FALL SCREENING: Has the patient had 2 falls in the last year or 1 fall with injury or currently using an Ambulatory Assistive Device (Walker, Cane, Wheelchair, Crutches, etc.)? No PATIENT GENDER DATA: Assigned female at . status: : No status:NO. PATIENT RELEVANT IMPLANT DATA REVIEWED: Not Applicable PATIENT PRESENTS WITH AN IMPLANTABLE OR ATTACHED FACE PAINTER: No RADIOLOGY DEPARTMENT: Mammography PERIPHERAL IV DATA: Not applicable SIGNED BY: RT Rohan(R) February 20, 2025 5:06 PM documented in this encounter Plan of Treatment DateTypeDepartmentCare Team (Latest Contact Info)Ycjnhtwnicq74/25/2025 10:00 AM ESTOffice Visit Neurology [address] [phone] Mariza Wolfe PA-C [address] [place] [address] 03/13/2025 4:00 PM ESTOffice Visit Neurology [id number] [place] [address] Kang H[place] [address] [place] [address] Bcxwubvt24/09/2026 11:00 AM ESTEducation Endocrinology [address] [place] [address] [address] [place] [address] Please schedule pt for in-person, joint follow-up with spouse Sravan ( ) on 04/19/24 @ 11AM-12PM. Thank you!05/07/2025 11:20 AM ESTOffice Visit Orthopaedics [address] [place] [address] Carl Hernadez MD [address] [place] [address] right hip pain05/29/2025 11:00 AM ESTEducation Endocrinology [address] [place] [address] [place] [address] Izuahw2208/21/2025 7:30 AM EDTProcedure Cardiology [address] [place] [address] DX:POTS (postural orthostatic tachycardia syndrome)08/21/2025 8:00 AM EDT Appointment Cardiology [address] [place] [address] DX:POTS (postural orthostatic tachycardia syndrome)08/21/2025 9:00 AM EDTOffice Visit Cardiology [address] [place] [address] Abhilash Conrad MD [address] [place] [address] DX:POTS (postural orthostatic tachycardia syndrome)08/21/2025 2:30 PM EDTOffice Visit Endocrinology [address] [place] [address] Lorraine Oneill MD [address] [place] [address] follow up01/17/2026 10:30 AM EDTOffice Visit Endocrinology [address] [place] [address] Saba Cook APRN.PARTS EXPEDITER [address] [place] [address] 1 year follow updocumented as of this encounter Goals GoalPatient Goal TypeAssociated ProblemsRecent ProgressPatient-Stated?Author Blood Pressure < 130/80 Blood Hxymasgy646/74(01/18/2025 11:06 AM EDT)Andrea You, MDdocumented as of this encounter Visit Diagnoses Not on filedocumented in this encounter Care Teams Team MemberRelationshipSpecialtyStart DateEnd Date Mike Gillis [address] [place] [phone] PCP - General10/28/09 No, Referral Referring12/29/17 Abhilash Conrad MD [address] [place] [address] Primary Staff PhysicianCardiology06/27/18documented as of this encounter
--- OUTSIDE RECORDS SUMMARY | 2025-02-21 03:31 | XMS_ITS | Continuity of Care Document ---
Author Organization [facility] Address [address] [place] [address] Phone Care Team Providers Care Yarn Packer Name Role Phone Mike Gillis DO Primary Care Provider [phone] Lorraine Oneill Attending Provider Mike Gillis DO Attending Provider Antony Ellis MD Attending Provider [phone] Care Teams Patient Care Team Team Status: Active Member Role/Relationship Status Dates Meliton Smith MD Specialist Active Moris Allen ManagerActiveLorraine DegrootpecialistActiveKENYATTA PaulpecialistActiveCoKENYATTA WatkinspecialistActiveAndrius Himanshu MD SpecialistActiveAgustin Bentley DPM MSSpecialistARimma Gillis DO Primary Care ProviderActive Visit Care Team Team Status: Active Member Role/Relationship Status Dates Mike Gillis DO Primary Care Provider Active Sta rt: November 28, 2024 Lorraine Andersen ProviderActiveStart: November 28, 2024 Visit Care Team Team Status: Inactive Member Role/Relationship Status Dates Mike Gillis DO Primary Care Provider Active Sta rt: December 18, 2024 End: December 18barbara Gillis DOAttmarisel ProviderActiveStart: December 18, 2024 End: December 18, 2024 Visit Care Team Team Status: Inactive Member Role/Relationship Status Dates Mike Gillis DO Primary Care Provider Active Sta rt: January 28, 2025 End: January 28, 2025Misty Caballero ProviderActiveStart: January 28, 2025 End: January 28, 2025 Patient Care Team Team Status: Inactive Member Role/Relationship Status Dates Mike Gillis DO Primary Care Provider Active Sta rt: February 21, 2025 End: February 21retmarvin Gillis DOAttmarisel ProviderActiveStart: February 21, 2025 End: February 21, 2025 Chief Complaint and Reason for Visit Chief Complaint Admit Date 3 month f/u- December 18, 2024 9:54am [facility] ([facility]) January 102024 9:53am Vist for DM shoes only February 21 7:42am Reason for Visit Admit Date Anxiety and depression December 18 9:54am Constipation December 18, 2024 9:54am Elevated TSH December 18, 2024 9:54am Lumbar radiculopathy December 18, 2024 9:54am Neuropathy December 18, 2024 9:54am Type 2 diabetes mellitus with complicati ons December 18, 2024 9:54am Unable to lose weight December 18 9:54am Abnormal weight gain January 28, 2025 9:53am Anxiety and depression January 28 9:53am CKD (chronic kidney disease) stage 3, GF R 30-59 ml/min January 28, 2025 9:53am Elevated TSH January 28, 2025 9 :53am Hepatic steatosis January 28, 2025 9 :53am Lumbar radiculopathy January 28, 2025 9:53am Metabolic syndrome January 28, 2025 9 :53am Mixed hyperlipidemia January 28, 2025 9:53am Type 2 diabetes mellitus with complicati ons January 28, 2025 9:53am Osteoarthritis of knee January 28 9:53am Allergies, Adverse Reactions, Alerts Allergen Type Severity Reaction Last Updated Verified Status Comments aspirin Allergy Severe Unknown Reaction February 21, 2025 7:56am Yes Active Bruising, platelet dysfunction levofloxacin Allergy Unknown Diarrhea, diarrhea, hot flashes February 21, 2025 7:56am Yes Active moxifloxacinAllergyUnknownUnknown Reaction, diarrheaNov2024 7:56am YesActiveSensation of Burning up from the inside NSAIDS (Non-Steroidal Anti-InflammaAllergyUnknownUnknown ReactionNovember 2024 7:56amYesActive affects platelets Social History Smoking Status Status Start Date End Date Date of Observa tion Never smoked tobacco (finding) January 28, 2025 10:38am Observation Status Observation Response Date of Response Legal Sex Female (finding) [facility] Family History Relationship Condition Age at Onset Recorded Date/T thuan father Chronic obstructive pulmonary disease Unk nown History of coronary artery bypass surgeryUnknownDiabetes mellitusUnknownDeceased UnknownHeart diseaseUnknownbrotherDiabetes mellitusUnknowngrandparentDiabetes mellitusUnknowngrandparentHistory of ovarian cancerUnknownDeceasedUnknown grandparentAneurysmUnknownDeceasedUnknownmotherAlzheimer's dementiaUnknownFamily history of mental disorderUnknownDeceasedUnknownsisterDeceasedUnknown Problems Active Problems Problem Diagnosis/Recorded Date Onset Date Status C omments Carpal tunnel syndrome, right June 20, 2023 1:53pm Unkn own Active TearfulnessJune 2023 10:54amUnknownActiveAbnormal platelet aggregation in response to epinephrineJune 2018 9:37amUnknownActiveMedicare annual wellness visit, subsequentFebruary 2024 12:19pmUnknownActiveUnable to lose weightSeptember 2024 10:08amUnknownActiveMulti-system degeneration of the autonomic nervous systemJune 2024 1:58pmUnknownActivePrimary osteoarthritis of left kneeMarch 2023 1:53pmUnknownActivePrimary osteoarthritis, right handMarch 2023 1:53pmUnknownActivePrimary osteoarthritis of left handMarch 2023 1:53pmUnknownActiveVaricose veins of bilateral lower extremities with painFebruary 2023 3:39pmUnknownActiveCarpal tunnel syndrome, leftMarch 2023 1:53pmUnknownActiveLumbar radiculopathyJune 2023 9:46amUnknown ActiveStyeJune 2024 2:02pmUnknownActiveRenal colicFebruary 2021 6:57pmUnknownActiveHoarsenessFebruary 2024 1:21pmUnknownActiveHepatic steatosisMar 2023 1:53pmUnknownActiveCKD (chronic kidney disease) stage 3, GFR 30-59 ml/minOctober 2024 4:47pmUnknownActiveCervical radiculopathy June 20, 2023 1:53pmUnknownActiveAbnormal weight gainOctober 2024 4:45pmUnknownActiveSymptomatic varicose veins of right lower extremityFebruary 2023 3:39pmUnknownActiveHyperlipidemiaKindred Hospital [facility] 2023 1:53pmUnknownActive Right leg painApril 2023 10:48amUnknownActiveMaxillary sinusitisMarch 2023 1:53pmUnknownActiveMixed hyperlipidemiaOctober 2024 4:46pmUnknown ActiveEasy bruisabilityMay 2018 1:48pmUnknownActiveType 2 diabetes mellitus with complicationsKindred Hospital [facility] 2023 1:53pmUnknownActiveOsteoarthritis of kneeMay 2018 12:53pmUnknownActiveHistory of fallNovember 2023 2:37pm UnknownActiveMetabolic syndromeOctober 2024 4:47pmUnknownActiveNeuropathy August 22, 2024 11:10amUnknownActiveRestless leg syndromeMar 2023 1:53pm UnknownActiveElevated TSHKindred Hospital [facility] 2023 1:53pmUnknownActiveBMI 28.0-28.9,adult December 18, 2024 10:07amUnknownActivePOTS (postural orthostatic tachycardia syndrome)June 20, 2023 1:53pmUnknownActiveAnxiety and depressionKindred Hospital [facility] 2023 1:53pmUnknownActiveS/P cataract surgeryJune 2023 9:46amUnknownActive bilateral eyes hronic back painJune 2024 2:03pmUnknownActiveLumbar back painMarch 2023 1:53pmUnknownActiveScreening for breast cancerAugust 2024 12:03pmUnknownActiveAllergic rhinitisMarch 2023 1:53pmUnknown ActiveArthritis of carpometacarpal (CMC) joint of thumbAugust 2022 7:52am UnknownActiveArthritis of carpometacarpal (CMC) joint of right thumbOctober 2023 2:54pmUnknownActiveConstipationJune 2024 1:20pmUnknownActive Contact dermatitisAugust 2023 12:02pmUnknownActiveInactive/Resolved Problems Problem Diagnosis/Recorded Date Onset Date Status C omments Right thigh pain February 2023 3:39pm Unknown Res olved Postoperative pain of extremityAugust 2022 7:52amUnknownResolvedBilateral lower extremity edemaFebruary 2023 3:39pmUnknownResolvedH/O carpal tunnel repairMarch 2023 8:09amUnknownResolvedCarpal tunnel syndromeAugust 2022 7:52amUnknownResolvedInfluenza AFebruary 2024 2:02pmUnknownResolved Dog biteMarch 2023 4:01pmUnknownResolvedDog bite of right handMarch 2023 1:59pmUnknownResolvedCerumen debris on tympanic membrane of left earJune 2023 9:48amUnknownResolvedDiverticulitisNovember 2020 2:07pmUnknown ResolvedAbdominal painFebruary 2021 7:13pmUnknownResolved Medications Medication Status Dose Units Route Directions Qty Days Refills S tart Date Stop Date End Date Reason(s) Instructions Adherence Amoxicillin-Pot Clavulanate 875-125 mg tablet Discontinued 1 TAB PO Twice daily 20 0March 2023 3:35pmMay 2023 1:14pmClonazepam 0.5 mg tabletActive0.5MG PODaily at bedtime as needed for Restless Leg(S)76453Fqvowzmp 2023 4:48pm Restless legs syndrome Restless legs syndromeComplies with drug therapyHydrocodone-Homatropine (Hycodan) 5-1.5 mg/5 mL (5 mL) unnulPqpmrpawflvn7QJPTKDBEF 4-6 HOURS as needed for azlwz56751Ynfmmelq 2024June 2024 1:35pmInfluenza due to influenza virus, type A, humanAzithromycin (Zithromax) 250 mg dftvbpGygtuvwwhkjm9OM .UZUUSFO96Jbihkese 2024 12:00amMarch 2024 2:29pmFor 250 mg dose pack: take 500 mg today (day 1), then 250 mg for 4 days (days 2-5) PO Methylprednisolone 4 mg tablets,dose lfwzOcnxczejsfzk6FSyvs package ozbtvwlfif88 0bruary 2024 12:00amMarch 2024 2:29pmPO PER PKG DIRAzithromycin (Zithromax) [address]gcukngxr3UD.[address] 2024 2:28pmJune 2024 1:32pmFor 250 mg dose pack: take 500 mg today (day 1), then 250 mg for 4 days (days 2-5) POMethylprednisolone 4 mg tablets,dose lybqUbsgbctbtpmr7KLrvj package wniaewljcv950Posfr 2024 2:29pmJune 2024 1:35pmPO PER PKG DIR Albuterol Sulfate 2.5 mg /3 mL (0.083 %) solution for nebulizationDiscontinued 2.5MGINHALATIONThree times dssey149Tpvea 2024 11:17amApril 2024 2:01pmAlbuterol Sulfate 90 mcg/actuation HFA aerosol gntlbruZvcmup1WIXHLEMIOJLYR Every 6 hours as needed for shortness of breath or wheezing8.52April 2024 11:00pmComplies with drug therapyPregabalin (Lyrica) 100 mg capsuleDiscontinued 100MGPOThree times aqmlq049833Jwxgb 2024 5:23amApril 2024 9:55am Restless legs syndrome Restless legs syndromePregabalin (Lyrica) 100 mg prdqhwrLvovpuekjcxy645JWVNJbwtu times sbihf999696Rhbpa 2024 9:55amApril 2024 10:01amRestless legs syndrome Restless legs syndromePregabalin (Lyrica) 150 mg umfboffGwyjlerptrub565IXMVMpsbq times motfv070153Ketdg 2024 11:00pmOctober 2024 7:39amRestless legs syndrome Restless legs syndromeDuloxetine (Cymbalta) 30 mg capsule,delayed release(DR/EC) Upszwsimwkav87EKXZZvznc371Zpa 2024 11:00pmJuly 2024 3:45pmNeuropathy Polyneuropathy, unspecifiedTobramycin 0.3 % awxxlRpqkbqtvobxk8PRLOUHTG-DGJWJ Every 4 zxibd393Uwq 2024 11:00pmJune 2024 1:35pmCephalexin 500 mg hgudiezGygckhjolrqv589DMBUKobpw wgwow514XxpAugust 27, 2024 11:00pmJune 2024 1:32pmDuloxetine 30 mg capsule,delayed release(DR/EC)Wpiwjv96HHRCIjmsd950Plsd 2024 3:45pmNeuropathy Polyneuropathy, unspecifiedComplies with drug therapyCitalopram (Celexa) 20 mg cacuoaWbhliripizlc57SRWUKpsgy067Esierm 2024 9:08amSeptember 2024 10:05amPregabalin (Lyrica) 150 mg cpzbrnxXklothlyokvj505IVQOZipdw times xkhpa973 901October 2024 7:39amOctober 2024 12:17pmRestless legs syndrome Restless legs syndromePregabalin (Lyrica) 150 mg udwcspyKfzzat093NJTPVuver times grguz336353Qwsgpfe 2024 12:17pmRestless legs syndrome Restless legs syndromeComplies with drug therapyMetformin 500 mg Tablet Ndsgeuekcefo6SUWIZOdhqv dailyroosevelt general hospitalt 2017 11:00pmJuly 2022 7:30am Albuterol Sulfate 2.5 mg /3 mL (0.083 %) Solution For NebulizationDiscontinued1 DOSEINHALATIONThree times daily as needed for Shortness Of BreathAugust 2017 11:00pmMay 2018 12:33pmCetirizine (Zyrtec) 10 mg TabletDiscontinued1 TABPODailyAuroosevelt general hospitalt 2017 11:00pmApril 2021 6:16amCalcium Carbonate- Vitamin D3 (Calcium 600 + D(3)) 600 mg(1,500mg) -200 unit RxqmupMuehzk2EDEQG Dailyroosevelt general hospital2017 11:00pmComplies with drug therapyCitalopram (Celexa) 20 mg TzgpcbVdevleukytzb56VTLXOXfirpDcfpas 2017 11:00pmMarch 2023 2:09pm Amitriptyline 10 mg FvvmvjMiypzraauqbv6GHVRDBdhva at bedtimeVcu Health [facility]2017 11:00pmFebruary 2021 4:24pmGabapentin 300 mg GlsxhlcRhhcgamnfsye9YFJIB Daily at bedtimeBard College 2017 11:00pmFebruary 2023 10:51amPravastatin (Pravachol) 20 mg BdotgzFyjnwwksvkvw3WEKFYKoywlTsekst 2017 11:00pmFebruary 2023 10:51amErgocalciferol (Vitamin D2) (Vitamin D2) 50,000 unit Capsule Dmbxtgxskofn7BAVTGnswbt weekVcu Health Community Memorial Hospital2017 11:00pmL[facility]des [facility] Hospitalch 2023 2:03pmOn FridaysMethylprednisolone 4 mg tablets,dose bbehIkxtnnzmgcpx5FORFPOz Directed November 10, 2017 11:00pmFebruary 2018 2:58pmAlbuterol Sulfate (Proventil Hfa) 90 mcg/actuation Hfa Aerosol VqeyukiBblnhibkeulv3AZWVGEAUHDBQBHH5C as needed for Shortness Of BreathAugust 2017 11:00pmMay 2018 12:33pm Fluticasone Propionate (Flonase Allergy Relief) 50 mcg/actuation [place],SuspensionActive1 - 2SPRAYINTRANASALDaily at bedtimeBard College 2017 11:00pmComplies with drug claschdNt-Jxjvlne-Ifw-Iron Fm-Fa-Vitk (Multi For Her) 18 mg iron-600 mcg-80 mcg YbhbkgIloxms1UEBVAWtwdpFszmng 2017 11:00pm Complies with drug therapyEmpagliflozin (Jardiance) 10 mg VitxpzFfgsdhasfrsq7OZV PODailyAugust 2017 11:00pmFebruary 2018 2:58pmGabapentin 300 mg vziolauPcawapsexlqz090KYFXEszjy at bedtimeGro[facility] 2023 10:50amMarch 2023 2:09pmGabapentin 300 mg bewxsmrLqrbxumusqhk423GLNIHptvz at bedAccess [facility] 2023 2:07pmMay 2023 1:17pmCitalopram (Celexa) 20 mg tablet Rtbiclzcwiey67INOFAnyalFyqiw 2023 2:07pmJune 2023 10:11amGabapentin 300 mg ggjzdpvSvyknuhzxkml886ZGMMGv [facility] 2023 1:15pmSeptember 2023 10:44am1 am, 1 in the evening and 3 at bedtimeGlyburide 5 mg Tablet Jisxverekesv4WCQDBXknzwPrldtnmc 2018 12:00amMay 2018 12:35pm Semaglutide (Ozempic) 0.25 mg or 0.5 mg(2 mg/1.5 mL) pen injectorDiscontinued 0.25MLSUBCUTAs DirectedMdy 2018 11:00pmFebruary 2021 4:23pmWeekly on SaturdaysHydrocodone-Acetaminophen 5-325 mg VblhplAcmvywwhxkxw4OLDSDA0P as needed for Zzyo104Ajncxfvv pril 2021 6:16amAbdominal pain Unspecified abdominal painAmoxicillin-Pot Clavulanate 875-125 mg tablet Spzlborshdfp0AJRJRNgivf qyitl846Ueuju 2023 12:00amMarch 2023 3:36pm Hydrocodone-Acetaminophen 5-325 mg jgypkyKuhmtvgxbgdi0VOGHPOwykp 6 hours as needed for wfym1570Heoke 2023March 2023 2:13pmDog bite Bitten by dog, initial encounterAmoxicillin-Pot Clavulanate (Augmentin) 875-125 mg xmlbdcTypdmdnqcjlw4MQWFJAvzum bzdwn063Byfjamcj 8th, 2021 12:00amFebruary 2021 11:30amOndansetron Hcl (Zofran) 4 mg hyzywuBbecqrsgboel1ZCQKranng 6 to 8 hours as needed for nausea and scyijqrf695Iuesstmp 2020 12:00am June 04, 2021 4:25pmHydrocodone-Acetaminophen 5-325 mg tabletDiscontinued1 TABPOEVERY 4-6 HOURS as needed for xbte309Wiczigyw 2020February 2021 4:25pmDiverticulitisSemaglutide (Ozempic) 1 mg/dose (4 mg/3 mL) Pen Injector Discontinued0.5MGSUBCUTevery weekFebruary 2021 12:00amMarch 2023 2:02pmmondayEsomeprazole Magnesium (Nexium) 40 mg Capsule,Delayed Release(Dr/Ec) Rsiilngonwfb33NVLRCxgenTdzhzpww 2021 12:00amMarch 2023 2:02pm Hydrocodone-Acetaminophen 5-325 mg szfdruQhudlljmdgja4RTPEYNqeiw daily as needed for qzbl7969Altktzys pril 2021 6:16amRenal colic Unspecified renal colicOndansetron Hcl 4 mg rknrnyLarzyagwjbaq1ZKPSXmorv daily as needed for nausea and gitsptoa9556Puhzaccj 2021 12:00amApril 2021 6:16amLoratadine (Claritin) 10 mg JcebdjRdjeocemsytx43ZZUYDtzkhLcltt 2021 11:00pmJune 2023 9:25amClonazepam 0.5 mg tabletDiscontinued0.5MGPODaily at bedtime as needed for Restless Leg(S)November 04, 2022 11:00pmMay 2023 1:47pmFludrocortisone 0.1 mg tabletDiscontinued0.1MGPOEvery morningJuly 2022 11:00pmNovember 2023 1:44pmHydrocodone-Acetaminophen 5-325 mg tablet Discontinued1 - 2TABPOEVERY 4-6 HOURS as needed for asyo7994Dygovp 2022June 07, 2023 10:51amPostoperative pain of extremity Arthritis of carpometacarpal (CMC) joint of thumb Carpal tunnel syndrome Other acute postprocedural pain Pain in unspecified limb Carpal tunnel syndrome, unspecified upper limbDoxycycline Hyclate 100 mg tablet Sntxzbsfgwdo250OXBJCscef mdgpo9889Tvaaoq 2022 11:00pmFebruary 2023 10:50amFludrocortisone 0.1 mg tabletActive0.2MGPOEvery morningFebruary 22, 2024 1:42pmComplies with drug therapyMethylprednisolone (Medrol (Ian)) 4 mg tablets,dose mexfOzrrdeoxvwcw0LKfwb package bgdvebenpi5783Rkcmu 2023 11:00pmMay 2023 1:15pmPO PER PKG DIRClonazepam 0.5 mg tabletDiscontinued 0.5MGPODaily at bedtime as needed for Restless Leg(S)12889Shi 2023 1:46pm February 14, 2024 4:48pmRestless legs syndrome Restless legs syndromeCetirizine (Zyrtec) 10 mg wmmvqatAuegvefpjrge37VIPJUuogp as neededJune 2023 11:00pmSeptember 2024 9:20amPrednisolone Acetate 1 % drops,suspensionDiscontinuedDROPSOPHTHALMICJune 2023 11:00pmNovember 2023 1:41pmCitalopram (Celexa) 20 mg glihyfWvvcukqgrfxt76MMLZQsbhi190Lpjs 2023 10:07amNovember 2023 2:38pmAzithromycin (Zithromax) 250 mg brzztvNhariwvkiwvy2TV.XDVEQSE95Owww 2023 11:00pmSept2023 10:33amFor 250 mg dose pack: take 500 mg today (day 1), then 250 mg for 4 days (days 2-5) POCetirizine (Zyrtec) 10 mg jzxjfanUfwcsv41SPSSRnleyHppluoehf 9th, 2025 9:17amComplies with drug therapyPregabalin (Lyrica) 100 mg capsule Lrtuvcndroln168WGZOJpqpw times dailyFebruary 2024 12:00amApril 2024 5:24amTirzepatide (Mounjaro) 5 mg/0.5 mL pen txmxihfnOsbhtvumvwnn9GZQGLBQSzoild weekFebr2024 12:00amJune 2024 1:36pmTirzepatide (Mounjaro) 10 mg/0.5 mL pen juoundsiVmrfjqtyoaua66OWWEKQAZewdqv weekSeptember 11, 2024 11:00pm January 28, 2025 9:42amDocusate Sodium (Dulcolax Stool Softener (Dss)) 100 mg drgljraRsyjzjvtsigt919URPTBqsdgGxoj 3rd, 2025 11:00pmJun2024 1:54pm Docusate Sodium (Dulcolax Stool Softener (Dss)) 100 mg uiqjweiOjdhrk987YANUBrjyg September 12, 2024 1:53pmComplies with drug therapyPlecanatide (Trulance) 3 mg clrubcBybhoxnpigec9WAXXAceyr41Mzwn 3rd, 2025 11:00pmSept2024 9:19am sample providedTobramycin 0.3 % obxxdDtdmompvpemw9NAWNLPMJ-RBGOBGewqd 4 bakuo225 September 12, 2024 2:02pmpt2024 9:19amClotrimazole-Betamethasone 1-0.05 % zisdhVsotopofnerz2JVLXRCOTGXUYVUtbmy daily as neededDecember 18, 2024 9:18am January 28, 2025 9:41amCitalopram (Celexa) 20 mg ckrrooIaesvs64FWOJGnyrf064 December 18, 2024 10:05amComplies with drug therapyLinaclotide (Linzess) 72 mcg ektawabUlmpgi07BWNXNYfljs67Dctqmasai 2024 11:00pmconstipationSamples of 72 mg and 145 mg provided. #4 of each.Complies with drug therapyRosuvastatin 5 mg uuqhoeUhuktoizpuew6XNDFVecctwgr 2023 12:00amNovember 2023 1:39pm Semaglutide (Ozempic) 0.25 mg or 0.5 mg (2 mg/3 mL) pen injectorDiscontinuedMG SUBCUTMarch 2023 11:00pmMay 2023 1:17pmEsomeprazole Magnesium 20 mg capsule,delayed release(DR/EC)Vugdegxgeddd39FEHQEkyfmLoizk 2023 11:00pm May 23, 2024 12:41pmCholecalciferol (Vitamin D3) 1,250 mcg (50,000 unit) oduufknEmumpbieslqk3329NFFWHervmn weekMarch 2023 11:00pmOctober 2024 9:40amLidocaine (Lidoderm) 5 % adhesive patch,mgltedggcHkfscvjsumqg2YPNJYJVUJYHW DailyMarch 2023 11:00pmMay 2023 1:15pmleave on most painful area for up to 12 hrsAlbuterol Sulfate 2.5 mg /3 mL (0.083 %) solution for nebulization DiscontinuedMGINHALATIONMarch 2023 11:00pmApril 2024 11:18am FreeTextSi ml prefilled vial Inhalation Three times a day prn; Note: Source Status: Taking; Provider: Carlin Mckeon RNebulizers miscActive0.RouteMarch 2023 11:00pmAs directedHydrocodone-Acetaminophen 5-325 mg izcqsmNijrmkpbxnxt1WYN POEvery 6 hours as needed for casz45134Eogka 2023May 2023 1:15pmDog bite Bitten by dog, initial encounterSemaglutide (Ozempic) 0.25 mg or 0.5 mg (2 mg/3 mL) pen getvlkoySyjgesivqyjd8HZDSLYEOWpi 2023 1:14pmSept2023 10:33amClotrimazole-Betamethasone 1-0.05 % kwhswWjiqblmfqvel7LYHODVTJVYGPUYxmoq tccuj266FozgteNovember 21, 2023 11:00pmSept2024 9:20amMethylprednisolone 4 mg tablets,dose ophuGltzouhlcagw8GOqbl package atptuoytpu845Bqkuhd2023 11:00pmDecember 22, 2023 10:33amPO PER PKG DIRPravastatin 10 mg tabletActive 10MGPONovember 2023 12:00amComplies with drug therapyGabapentin 300 mg gcbsnrmNdfkchleuiwu5VNCb DirectedSw[facility] Hospital2023 1:42pmFebruary 2024 12:41pm1 qam, 1 @ noon, 3 qhs orally as directed; 1 am, 1 in the evening and 3 at bedtimeCitalopram (Celexa) 20 mg tzsnelZavrnwdykxze46WKUDHgpia851Axnwzggd 13th, 2024 2:38pmAugust 2024 9:08amSemaglutide (Ozempic) 1 mg/dose (4 mg/3 mL) pen injectorDiscontinuedMGSUBCUTS2023 11:00pmFebruary 2024 12:43pmMethylprednisolone (Medrol (Ian)) 4 mg tablets,dose packDiscontinued 0POper package rhlevvxjly866Oaaxdeaet 11th, 2024 11:00pmOctober 2023 2:44pmPO PER PKG DIRAzithromycin (Zithromax Z-Ian) 250 mg aiewhmIibwrurrzjfz2IH .UDTCQCV36TgjogvxguDecember 21, 2023 11:00pmOctober 2023 2:44pmFor 250 mg dose pack: take 500 mg today (day 1), then 250 mg for 4 days (days 2-5) POGabapentin 300 mg zzqjhhpUqrrxcopkjtg580GNTMOd Rbmzajne0530Fzqzxlvny 12th, 2024 10:42am February 22, 2024 1:44pm1 am, 1 in the evening and 3 at bedtime Methylprednisolone (Medrol (Ian)) 4 mg tablets,dose efstBlljtmomduuu5KEfff package ahsyifhxys283Ocferuua 21st, 2024 12:00amFebruary 2024 12:43pmPO PER PKG DIRAzithromycin (Zithromax Z-Ian) 250 mg syfvhvPixxrmqhkpix6UN.XSMWGPR79 March 01, 2024 12:00amFebruary 2024 12:40pmFor 250 mg dose pack: take 500 mg today (day 1), then 250 mg for 4 days (days 2-5) POOseltamivir (Tamiflu) 75 mg pjkzpslLmqercjgrsqu51ATMEOqqnw trkgz5734Bwpigrrq 2024 12:00amJune 2024 1:35pmHydrocodone-Homatropine (Hycodan) 5-1.5 mg/5 mL (5 mL) syrup Bkkdrdyotulz9CDKKSCTLD 4-6 HOURS as needed for huskz78977Kthmrxtm 2024June 07, 2024 10:04amInfluenza due to influenza virus, type A, human Cholecalciferol (Vitamin D3) 125 mcg (5,000 unit) zbyzrmuUglwxy849ZOEVLCimja January 27, 2025 11:00pmComplies with drug therapyTirzepatide (Mounjaro) 7.5 mg/0.5 mL pen injectorActive7.5MGSUBCUTevery 2024 11:00pm Complies with drug therapy Immunizations Immunization Event Date Not Given Reason Dose Number It Account Manager Lot Number Reason(s) Given Vaccine Information Statement (VIS) Detail Administration Location COVID-19 mRNA, Comirnaty ([facility]) May 18, 2020 COVID-19 mRNA, Comirnaty ([facility])June 10OVI mRNA, Comirnaty ([facility])February 05OVID mRNA, Comirnaty ([facility])2020 COVID-19 mRNA, Comirnaty ([facility])January 24OVI mRNA, Comirnaty ([facility])March 08OVI mRNA Bivalent Booster ([facility])June 25OVID-19 ([employer]) 12Y and olderSeptember 2023Fluzone TIV High-Dose 65YR+March 30, 2014Fluzone TIV High-Dose 65YR+December 30, 2023Fluzone QIV High-Dose 65YR+December 08, 2020Fluzone QIV High-Dose 65YR+ March 15, 2022Fluzone QIV High-Dose 65YR+April 12, 2023Influenza, trivalentAugust 2017Influenza, trivalentOctober 2018influenza, unspecified formulationDece2013Pneumococcal Conjugate Vaccine, 13 valentAugust , 2019Pneumococcal Polysacc. Vaccine, 23 valentDecember 2021Quadrivalent InfluenzaDecemb, 2015Quadrivalent InfluenzaAugust , 2019Zo Vaccine Recombinant, AdjuvantedJune 2020Zo Vaccine Recombinant, AdjuvantedAugust 2020Tetanus, Diphtheria, Pertussis (Tdap) June [id number] [address] Hospital CtrTrivalent Influenza Vaccine December 01, 2017Trivalent Influenza VaccineOctober 2018Trivalent Influenza VaccineAugust 2019Trivalent Influenza VaccineDecember 2021 Shingles (Zoster)July 17, 2012 Medical Equipment Device Date Implanted Device Details Orthopaedic bone staple, non-adjustable, sterile November 15, 2022 VALARIE: [id number] Orthopaedic bone staple, non-adjustable, sterile November 15, 2022 VALARIE: ()[id number] Orthopaedic bone screw, non-bioabsorbable, non-sterile November 15, 2022 VALARIE: ()[id number] Relevant Diagnostic Tests and/or Laboratory Data Laboratory Results Test Collection Date/Time Result Date/Time Result Interpretation Reference Range Result Comment Performing Site Alanine Aminotransferase (ALT/SGPT) November 28, 2024 8:57am November 28, 2024 8:57am 23 U/L 7-38Thyroid Stimulating Hormone 3rd GenAugus2024 8:57amAugu2024 6:00pm5.150 mIU/LAbove high normal0.270-4.200HDL CholesterolNovember 28, 2024 8:572024 6:00pm33 mg/dLBelow low normal>3940-59 mg/dL, Acceptable>59 mg/dL, High: Negative risk factor for coronary heart disease<40 mg/dL, Low: Positive risk factor for coronary heart diseaseFree ThyroxineNovember 28, 2024 8:572024 8:57am1.0 ng/dL0.9-1.7Hemoglobin H9yAnzzfnNovember 28, 2024 8:572024 8:57am6.2 %Above high normal4.3-5.6American Diabetes Association guidelines indicate that patients with HgbA1c in the range 5.7-6.4% are at increased risk for development of diabetes, and intervention by lifestyle modification may be beneficial. HgbA1c greater or equal to 6.5% is considered diagnostic of diabetes.Urine Random CreatinineNovember 28, 2024 9:2024 9:99ee220.8 mg/dL20.0-300.0AlbuminNovember 28, 2024 8:572024 8:57am4.3 g/dL3.9-4.9LDL Cholesterol, CalculatedNovember 28, 2024 8:2024 6:42kb358 mg/dLAbove high normal<100<100 mg/dL, Optimal 100-129 mg/dL, Near optimal/above optimal 130-159 mg/dL, Borderline high 160-189 mg/dL, High>189 mg/dL, Very highSecondary prevention optimal LDL Cholesterol levels are recommended to be <70 mg/dLLDL cholesterol is calculated using the [place]-NIH equation.Estimated Average GlucoseNovember 28, 2024 8:2024 8:28hk016 mg/dLeAG: (Estimated average glucose) is a calculated value from HgbA1c and is sales representative printing paper of the average blood glucose level in the last 2-3 month period.Urine Albumin/Creatinine RatioNovember 28, 2024 9:092024 9:09am8 mg/g<30Adult Male and Female Nephrotic Criteria:<30 mg/g is considered normal to mildly gowoceotc15-416af/g is considered moderately increased>300 mg/g is considered severely increasedKDIGO. (2013). KDIGO 2012 Clinical Practice Guideline for the Evaluation and Management of Chronic Kidney Disease. Official Journal of the International Society of Nephrology, 3(1), 1-150.Aspartate Amino Transf (AST/SGOT)November 28, 2024 8:57amA2024 8:57am27 U/C88-45Evahpomttrq Risk FactorAugust 2024 8:57amA2024 6:72bc730 mg/dL<200<200 mg/dL, Desirable 200-239 mg/dL, Borderline high>239 mg/dL, HighUrine Microalbumin mg/dlAut 2024 9:09amAugu2024 9:09am12.7 mg/LTotal BilirubinAut 2024 8:57amA2024 8:57am0.5 mg/dL0.2-1.3 Triglycerides LevelAu2024 8:57amA2024 6:46le407 mg/dL Above high normal<150<150 mg/dL, Normal 150-199 mg/dL, Borderline high 200-499 mg/dL, High>499 mg/dL, Very highCarbon Dioxide LevelAu2024 8:57am November 28, 2024 8:57am25 mmol/F21-57Jaypolyblwd/HDL RatioAut 2024 8:57amA2024 6:00pm5.00<5.10Chloride LevelAu2024 8:57am November 28, 2024 8:32nk109 mmol/R68-515Gmmrpgwbyzj Ratio (LDL/HDL)November 28, 2024 8:572024 6:00pm3.15Above high normal<2.54Reference:1. National Cholesterol Education Program ATP III Guideline At-A-Glance Quick Desk Reference: National Heart, Lung, and Blood [place]. National Institutes of Health. 2001: NIH PublicationNo. 01-3305.2. An International Atherosclerosis Society position paper: global recommendations for the management of dyslipidemia: executive summary, Atherosclerosis. 2014: 232(2):410-413. CreatinineAugus2024 8:572024 8:57am1.24 mg/dLAbove high normal0.58-0.96VLDL CholesterolNovember 28, 2024 8:2024 6:00pm 26 mg/dL<30Glucose LevelAugust 2024 8:572024 8:44ru036 mg/dLAbove high -03Qfk [place] Diabetes Association (ADA) provides guidance for cutoff values for fasting glucose andrandom glucose. The ADA defines fasting as no caloric intake for at least 8 hours. Fasting plasma gl ucose results between 100 to 125 mg/dL indicate increased risk for diabetes (prediabetes).Fasting plasma glucose results greater than or equal to 126 mg/dL meet the criteria for diagnosis of diabetes. In the absence of unequivocal hyperglycemia, results should be confirmed by repeat testing. In a patient with classic symptoms of hyperglycemia or hyperglycemic crisis, random plasma glucose resultsgreater than or equal to 200 mg/dL meet the criteria for diagnosis of diabetes.Reference: Standardsof Medical Care in Diabetes 2016, [place] Diabetes Association. Diabetes Care. 2016.39(Suppl 1).Non-HDL CholesterolNovember 28, 2024 8:2024 6:60ne246 mg/dLAbove high normal<130<130 mg/dL, Optimal 130-159 mg/dL, Near optimal/above optimal 160-189 mg/dL, Borderline high 190-219 mg/dL, High>219 mg/dL, Very highSecondary prevention optimal non HDL Cholesterol levels are recommended to be <100 mg/dLPotassium LevelNovember 28, 2024 8:2024 8:57am4.3 mmol/L3.7-5.1Fasting StatusNovember 28, 2024 8:2024 6:00pm12 hrsSerum Total ProteinNovember 28, 2024 8:2024 8:57am6.9 g/dL6.3-8.0Sodium LevelAugus2024 8:572024 8:42df946 mmol/Q912-755Hkcmr Urea NitrogenAu5 8:57amAugust 2024 8:57am17 mg/dL7-21Alkaline PhosphataseAugust 2024 8:57amA2024 8:68ox165 U/P83-856Rafocmo LevelAugust 2024 8:57amAugu2024 8:57am9.9 mg/dL8.5-10.2Anion GapAugust 2024 8:57am November 28, 2024 8:57am11 mmol/L8-15Estimated GFR (CKD-EPI)November 28, 2024 8:57amA2024 8:57am45 mL/min/1.73m???Below low normal>=60Estimated Glomerular Filtration Rate (eGFR) is calculated using the 2020 CKD-EPI creatinine equation. This equation utilizes serum creatinine, sex, and age as parameters. The creatinine assay has traceable calibration to isotope dilution- mass spectrometry. Refer to KDIGO guidelines for clinical interpretation. In patients with unstable renal function, e.g. those with acute kidney injury, the eGFRmay not accurately reflect actual GFR. Vital Signs Vital Reading Result Reference Range Collection Date/Time Height 68 [in_i] December 18, 2024 9:10ldJaehrq50.27 kgSeptember 2024 9:21amHeart Rate79 /tqm39-507Hipopmcul 2024 9:21amRespiratory rate16 /mjc78-61Pbogeskbi 9th, 2025 9:21amOxygen saturation by Pulse lmppubaz66 %95-100September 2024 9:21amBP Gclzkuyn334 mm[Hg]100-140September 2024 9:21amBP Ggpevluyp56 mm[Hg]60-100September 2024 9:21amBMI (Body Mass Index)28.5 kg/m7Ntdbrpirk 2024 9:04vmZnkcoj72.5 [in_i]January 28, 2025 9:22zxQmdvct25.40 kgOctober 2024 9:33amHeart Rate79 /psn54-202Rvznlmk 2024 9:33amRespiratory rate16 /ste32-39Vfyywmm 2024 9:33amOxygen saturation by Pulse hotzawqk71 % 95-100October 2024 9:33amBP Xgvekysi851 mm[Hg]100-140October 2024 9:33amBP Jjuosgjxo58 mm[Hg]60-100October 2024 9:33amBMI (Body Mass Index) 29.5 kg/r6Rpxhfqx 2024 9:80hqLqromt73 [in_i]February 21, 2025 7:52am [facility]u61.18 [facility] 7:52amHeart Rate78 /gjl88-686SgzvubheFebruary 21, 2025 7:52amRespiratory rate16 /cbo95-82Lnkchefc 2024 7:52amOxygen saturation by Pulse cebsualh88 %95-100Nov2024 7:52amBP Bvnijgvm765 mm[Hg]100-140[facility]20[facility] 7:52amBP Umdcyanis42 mm[Hg]60-100Nov2024 7:52amBMI (Body Mass Index)28.8 kg/s5Facpprcr 2024 7:52am Advance Directives Advance Directive Response Recorded Date/ Time Advance Directives No November 22, 2023 7:55am Insurance Providers Guarantor Phoebe Douglas Address [address] [place] [address]Tduoakb Info.Home Phone: Payer Group Member ID Coverage Type Subscriber Relationship to Subscriber Effective Date Expiration Date Medicare [id number] K Braun Id: [id number] [address] [place] [address] Home Phone: Email: [email or web address] [place] Id: Plan [id number] K Braun Id: [id number] [address] [place] [address] Home Phone: Email: [email or web address] [id number] K Braun Id: [id number] [address] [place] [address] Home Phone: Email: [email or web address] Encounters Encounter Location(s) Arrival/Admit Date Discharge/Departure Date Discharge/Departure Disposition Provider(s) Non-patient / Non-visit -[facility] ugust 2024 9:57am Lorraine LinyDeparted Physician/Provider Office Visit-[facility] Family Medicine aSe2024 9:54amSept2024 11:06amDischarged to home care or self care (routine discharge)Mike Gillis , KEVONeparted Physician/Provider Office Visit-[facility] 9:53amOctober 2024 11:43amDischarged to home care or self care (routine discharge)Antony lElis , [facility] Family Medicine Reading February 21, 2025 7:42amNovember 2024 8:30amDischarged to home care or self care (routine discharge)Mike Gillis , DO Recent Diagnosis Onset Date Admit Date Anxiety and depression Unknown December 18, 2024 9:54am Constipation Unknown December 18 9:54am Elevated TSH Unknown December 18 9:54am Lumbar radiculopathy Unknown December 182024 9:54am Neuropathy Unknown December 18 9:54am Type 2 diabetes mellitus with complications Unkn own December 18, 2024 9:54am Unable to lose weight Unknown December 18, 2024 9:54am Abnormal weight gain Unknown January 9:53am Anxiety and depression Unknown January 102024 9:53am CKD (chronic kidney disease) stage 3, GFR 30-59 ml/min Unknown January 28, 2025 9:53am Elevated TSH Unknown January 28 9:53am Hepatic steatosis Unknown January 28, 2025 9:53am Lumbar radiculopathy Unknown January 9:53am Metabolic syndrome Unknown January 28, 2025 9:53am Mixed hyperlipidemia Unknown January 9:53am Type 2 diabetes mellitus with complications Unkn own January 28, 2025 9:53am Osteoarthritis of knee Unknown January 102024 9:53am Assessments Author Antony Ellis [facility]AuthoredOct[facility] 4:55pmAssessment: Highest weight: 191.0 lbs Start weight: 186.0 lbs. Starting Date: 01-28-2025. 1. Abnormal weight gain 2. Obesity-the patient has a long way to go to eat healthy and we went over in detail the plate method/benefits of eating healthy Whole Foods and increasing her activity with starting chair exercises and water exercise slowly. Currently only tolerating Mounjaro 7.5 mg but hopefully with eating more fiber, fruits vegetables drinking more water getting more exercise her constipation will improve and we can increase the Mounjaro dose higher. She previously did not feel that the 10 mg dose helped her lose weight but she was also not following a healthy diet or exercising or being active. Mounjaro is currently covered for her type 2 diabetes her A1c was 6.2 with starting the program. She is going to start FiberCon and increase the dose if no GI side effects or problems she does not get enough fiber in her diet. She will start working with our loan service officer for her type 2 diabetes as she will not be able to see them for her weight as her BMI is currently less than 30. She needs a bioimpedance scan as she most likely has decreased muscle mass with not exercising and not getting enough lean protein in her diet. She was sent here by her PCP and she sees an soaking pits supervisor at the [facility] who treats her type 2 diabetes. She notes despite being up to Mounjaro 10 mg she was not able to lose weight. She was having some worsening constipation so the dose was cut back by her soaking pits supervisor to 7.5 mg. Her last A1c was better at 6.2. She admits to I do not watch what I eat . The 24-hour food diary before starting the program showed a half a blueberry muffin for breakfast, lunch with a vanilla yogurt coleslaw and tapioca pudding afternoon snack a handful of caramel corn, dinner tomato based soup 3 crackers and some vanilla yogurt and evening snack a sherbert ice cream cone. She does like vegetables and fruits. She does not exercise. Her activity has been limited by some chronic low back pain with some radiation into her right lateral thigh. She notes it was recommended that she start chair exercises but she has not. She used to like doing water exercise. She has known fatty liver, incompletely controlled mixed hypercholesterolemia despite being on Pravachol 10 mg, subclinical hypothyroidism. She has had issues with neuropathy and CKD 3. She has a known history of incidental kidney stones. Her PHQ-9 was 10 with starting the program and she takes citalopram for depression. Her mood seemed good with starting the program. She has a history of lower blood pressure she states that is why she is on the fluticasone. ?The patient has a number of weight related health issues anxiety, chronic lowback pain that limits activity, daytime fatigue, Diabetes type 2, kidney stone, Polycystic Ovarian Syndrome. ?Behavioral: The patient's previous eating habits prior to starting our program fair. ?Before starting the program the biggest reasons for weight struggles include boredom eater, health issues, lack of exercise, late night snacking, unhealthy snacks. ?Exercise before starting the program:No. The patient will treat with long-term lifestyle changes of improved nutrition, increased exercise and activity, stress reduction, adequate sleep and behavioral modification versus short-term dieting. 3. Chronic constipation- Her constipation includes a bowel movement every 5 days which can be marblelike and harder despite taking some Colace. She does not have abdominal pain. Constipation handout given allowed lifestyle measures. She feels her recent trial of Linzess was not helpful. She is up-to-date with colonoscopies from 07/27/2021. 4. Type 2 diabetes with neuropathy and EAH-qfiqs-foru treatment with lifestyle changes, decrease simple sweets and starches, increase exercise and weight loss. Continue Mounjaro. 5. Fatty liver-treat with healthy diet and weight loss. 6. 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. Weight loss may be helpful along with correct exercises. 7. Knee arthritis-status post left knee replacement. Treat with weight loss and proper exercise. Recommended seek evaluation by physical therapy from her specialist for her back and knees exercises. 8. Depression-her mood seems good on citalopram. She was forced into nursing home which was stressful and she has not been as healthy since that time but her mood seems good with starting the program. She follows up with Dr. Jolley. She should start working with our psychologist in this program. 9. CKD 3-most recent creatinine 1.24 with GFR of 45. She is going to start drinking more water. 10. Mixed hyperlipidemia-treat with decreasing the simple sweets, added sugars, refined starches, and bad/added fats, increasing activity and exercise and continued long-term weight loss. Her triglycerides were 158, HDL low at 33 and LDL not at goal for a type II diabetic at 104 on Pravachol 10 mg before starting the program. 11. Increase TSH-she follows up with an soaking pits supervisor and is felt to be subclinical at this point. Monitor for worsening hypothyroidism. 12. History of incidental kidney stones-Will increase water intake. Avoid Topamax. 13. History of low blood pressure/POTS 14. Metabolic syndrome-treat with long-term healthy lifestyle changes, behavioral changes, healthy nutritional changes, increased activity and exercise and achieve long-term weight loss. The patient understands the metabolic syndrome increases the risk of diabetes and heart disease. Follow up with me in 6 weeks. New labs needed: Up-to-date. Continue regular blood work with her soaking pits supervisor at [facility] and PCP Dr. Jolley. The patient was instructed to consider logging all foods and caloric beverages. I highly recommended minimizing or stopping caloric beverages including alcohol. The importance of preplanning, shopping at the edge of the store, decreasing unhealthy food cues and environmental control stressed. I recommend packing snacks and meals when out of the home. Remove trigger/unhealthy foods if possible from the home. No macronutrient is completely restricted. We discussed the addictive nature and unhealthy biological changes that occur with ultra processed food. We discussed the brain and peripheral biological changes with obesity that make it a chronic disease. Importance of cooking most food items from scratch discussed. No skipping any meals. Avoid added sugar, refined starches, and added fats. I highly recommended preference for whole foods/real foods. Foods from the farm, not from the factory. The plate method discussed and handout given. Lean unprocessed protein with each meal and each snack to help control appetite, decrease cravings and lessen muscle loss with weight loss advised. Consider use of a protein shake or protein bar instead of missing a meal. The patient will try to get at least 5 or more servings of low carbohydrate veggies/salads daily. Recommend regular follow-up with our registered dietitian. Benefits of regular exercise including cardio and resistance training discussed and recommended as appropriate for the patient. Slowly increase activity. Our exercise program was recommended with our bearing grinder/obesity exercise group. Handout given. Our free weekly group support/food triggers program was highly recommended to help with long-term behavioral change and support. Handout given. The patient must start healthy behavioral changes. The patient was instructed on good sleep hygiene and on the importance of adequate sleep. Circadian rhythm and the importance of mealtime discussed. I recommended stress reduction. Medication addition and subtraction options discussed. Risks and benefits of prescribed meds discussed. Initial rsuh-mh-pmke interview/evaluation. The patient was counseled in detail on the options for weight loss in an individual setting. 77 minutes was spent caring for the patient, counseling/educating patient on the options for the treatment of obesity and related healthcare issues. The program's treatment goals were reviewed with the patient. Each aspect of the program was discussed with the patient. Plan of Treatment Author Stephanie Valentin [facility] HospitalAuthoredSeptember 2024 10:14amNeuropathy has not changed. No worse and no better. I do want to keep the plan of care the same for now. No changes in medication. Chronic constipation. Does take 3 stool softener's on a daily basis. At last visit she was given Trulance to try and she states that it did not help. States has taken miralax but that is not helpful. States she had tried Linzess when it first came out and this gave her diarrhea but is wanting to try it again. I did explain to her that the Linzess is very expensive. I do have a few samples that she could try. I have given her Linzess 72 mg #4 one daily and 145 mg #4 one daily to try and see how she reacts. TSH remains elevated. Thyroid antibodies were negative one year ago. I will continue to monitor. She is taking celexa for the depression with anxiety and this does seem to be keeping her mental health in check. I will provide her with refill on this medication as requested. Patient has been followed by pain management for some time and has had numerous injections that have not been helpful. She was referred to a print support specialist who did perform a different injection but it did not help. She was then referred to a spine surgeon at the [facility] for surgical options but she is refusing back surgery . Has chronic lumbar pain with right lower extremity radiculopathy. Encouraged to follow the plan of care with print support specialist and pain management. Surgical intervention is ultimately her decision. A1C is well controlled on the current medication. She is responding well to the Mounjaro 10 mg daily as far as glycemic control goes. Weight loss has been a struggle but she is not able to exercise due to the chronic back pain. Does have chronic constipation and she is trying to manage this. The weight gain could be due to the constipation and I again have offered Linzess samples today and hopefully this is helpful. She does have concerns about GLP-1 blood levels to see if her levels are off and this could be why she cannot lose weight. I have offered consultation with weight loss specialist, Dr. Ellis, for further discussion about this and weight management. Phoebe reports that she has been struggling to lose weight. This is starting to really bother her from a emotional stand point. Inability to exercise due to the chronic back pain is discouraging. She is on Mounjaro 10 mg weekly and her weight does fluctuate. Does have chronic constipation and has been provided with multiple options for treatment. She has multiple questions about different types of levels in her system the could be potentially off that is causing her inability to lose weight and therefore it was decided to see a bariatric specialist/weight management physician to discuss. Referral has been placed. Referral has been placed to Dr. Ellis to discuss inability to lose weight. Continue with plan of care as outlined. See me back in office in 3 months. A1C at that time Note scribed by Stephanie Valentin LPN for Mike Gillis, DO Future Tests Future scheduled test information is unavailable Pending Tests Pending diagnostic test information is unavailable Future Visits Future appointment information is unavailable Future Procedures Future procedure information is unavailable Future Medications Future medication information is unavailable Patient Instructions Patient instructions are unavailable
--- OUTSIDE RECORDS SUMMARY | 2025-03-04 14:01 | XMS_ITS | Clinical Summary ---
Author Organization [facility] Address [address] [place] [address] Phone Care Team Providers Care Sound Designer Name Role Phone Unavailable Primary Care Provider Unavailabl e Social History Tobacco UseTypesPacks/DayYears UsedDateSmoking Tobacco: Never Assessed CommentsUnknownSex and Gender InformationValueDate RecordedSex Assigned at Not on fileLegal MecNrzule92/25/2022 9:56 PM ESTGender IdentityNot on fileSexual OrientationNot on file Plan of Treatment Not on file
--- NOTE | 2025-03-04 14:02 | XR_ITS ---
The [address] [address] Patient Name: HOLA REESE MRN: [id number] date: 1945 Sex: F Assigned Patient Location: [facility] Current Patient Location: [facility] Accession/Order Number: [id number] Exam Date: 03/04/2025 14:10 Report Date: 03/04/2025 16:36 At the request of: REJI SINHA DPM Procedure: XR foot RT min 3V XR foot RT min 3V 03/04/2025 2:17 PM SIGNS AND SYMPTOMS: Right foot pain PROTOCOL: 3 views of the right foot COMPARISON: 04/26/2023 FINDINGS: There is narrowing of the first metatarsophalangeal joint. There is periosteal thickening along the shaft of the second and third metatarsals suspicious for a remote healed stress injury. There is degenerative change at the tarsometatarsal junctions. No acute displaced fracture. There is plantar surface calcaneal spurring. XR/XR foot RT min 3V IMPRESSION: Degenerative changes are noted at the tarsometatarsal junctions and first metatarsophalangeal joint showing slight interval progression. There is periosteal thickening along the shaft of the second and third metatarsals suspicious for a remote healed stress injury. This is slightly more prominent along the third metatarsal. The prior exam. Impression dictated by: Roberto Markham M.D. 03/04/2025 4:36 PM Dictation Location: [place] [address] Electronically authenticated by: [id number] Date: 03/04/2025 16:36
--- OUTSIDE RECORDS SUMMARY | 2025-03-04 14:02 | XMS_ITS | Clinical Summary ---
Author Organization [facility] Address [address] [place] [address] Care Team Providers Care Gun Perforator Name Role Phone Unavailable Primary Care Provider Unavailabl e Active Problems ProblemNoted DateDiagnosed DateLeft foot pain05/03/2023 Family History Medical HistoryRelationNameCommentsOvarian cancerMaternal GrandmotherRelation NameStatusCommentsFatherAliveMaternal GrandmotherMotherAlive Social History Tobacco UseTypesPacks/DayYears UsedDateSmoking Tobacco: NeverSmokeless Tobacco: Never Tobacco Cessation:Counseling Given: Not Answered Alcohol UseStandard Drinks/WeekCommentsNever0 (1 standard drink = 0.6 oz pure alcohol)caffeine 1-2 cups/dayCommentsUnknownSex and Gender Information ValueDate RecordedSex Assigned at BirthNot on fileLegal LofQjrfvj87/15/2023 7:23 PM EDTGender IdentityNot on fileSexual OrientationNot on file Last Filed Vital Signs Vital SignReadingTime TakenCommentsBlood Jhjmkcdm410/8205 12:00 PM EDT Pulse--Temperature--Respiratory Rate--Oxygen Saturation--Inhaled Oxygen Concentration--Ykinys91.6 kg (180 lb)08/14/2020 12:00 PM SERHfxail001.2 cm (5' 7 )08/14/2020 12:00 PM EDTBody Mass Index28.19008/14/2020 12:00 PM EDT Plan of Treatment DateTypeDepartmentCare Team (Latest Contact Info)Qslpyjslkxz02/05/2026 10:20 AM ESTOffice Visit [facility] [address] [place] [address] Suellen Patton PA [address] [place] [phone] Health MaintenanceDue DateLast DoneCommentsCOVID-19 Vaccine ( season) /, 03/08/2021, 02/05/2021, Additional history existsInfluenza Vaccine (#1)509/, 04/12/2023, 03/15/2022, Additional history existsPneumococcal Vaccine: 65+ LbwpzZuhffmflb16/05/2022, 12/02/2019 Insurance OF [employer], [place] [phone]
--- OUTSIDE RECORDS SUMMARY | 2025-03-04 14:02 | XMS_ITS | Encounter Summary ---
Author Organization 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 Encounter Details DateTypeDepartmentCare Team (Latest Contact Info)Pexydgkgtno06/20/2025Interfaced Data [employer] [address] [place] [address] [facility] Social History Tobacco UseTypesPacks/DayYears UsedDateSmoking Tobacco: NeverSmokeless Tobacco: NeverAlcohol UseStandard Drinks/WeekCommentsNot Currently0 (1 standard drink = 0.6 oz pure alcohol)PHQ-2AnswerDate RecordedPHQ-2 dflyh7735Area Deprivation IndexAnswerDate RecordedNational Score (1-100), lower number is lower cono874112/23/2022State Score (1-10), lower number is lower oknm982/ Data from: https://www.neighborhoodatlas.[facility]/. Last address used for rojbfackxy[address]CommentsNoSex and Gender InformationValueDate RecordedSex Assigned at YqberZwgwog07/28/2021 7:54 AM EDT Legal MokTfbjit79/02/2012 9:28 AM ESTGender FaluikblPzexgh98/28/2021 7:54 AM EDT Sexual HgnqesggzcyFdtpmujt41/13/2022 1:03 PM ESTdocumented as of this encounter Functional Status * Are you deaf or do you have serious difficulty hearing?AnswerDate of MgxwhtjbdrZnomefWa59/15/2015 12:20 PM Esperanza Ortez LPN * Are you blind or do you have serious difficulty seeing, even when wearing glasses?AnswerDate of SfhcushvwyScezzrLt90/15/2015 12:20 PM Esperanza Ortez LPN * Do you have serious difficulty walking or climbing stairs?AnswerDate of BrvsfyobfhFingzwHx76/15/2015 12:20 PM Esperanza Ortez LPN * Do you have difficulty dressing or bathing?AnswerDate of AssessmentAuthorNo 07/24/2014 12:20 PM Esperanza Ortez LPN * Because of a physical, mental, or emotional condition, do you have difficulty doing errands alone such as visiting a doctor's office or shopping?AnswerDate of XfupqbjmypArliptHb94/15/2015 12:20 PM Esperanza Ortez LPN documented as of this encounter Mental Status * Because of a physical, mental, or emotional condition, do you have serious difficulty concentrating, remembering, or making decisions?AnswerEntry Date MecdahTb85/15/2015 12:20 PM Esperanza Ortez LPN documented in this encounter Plan of Treatment DateTypeDepartmentCare Team (Latest Contact Info)Nzwmellfjae32/25/2025 10:00 AM ESTOffice Visit Neurology [address] [id number] Mariza Wolfe PA-C [address] [place] [address] 03/13/2025 4:00 PM ESTOffice Visit Neurology [id number] [place] [address] Kang H[place] [id number] [place] [address] Kmrpocrc19/09/2026 11:00 AM ESTEducation Endocrinology [address] [place] [address] [phone] [place] [address] Please schedule pt for in-person, joint follow-up with spouse Sravan ( ) on 04/19/24 @ 11AM-12PM. Thank you!05/07/2025 11:20 AM ESTOffice Visit Orthopaedics [address] [place] [address] Carl Hernadez MD [address] [place] [address] right hip pain05/29/2025 11:00 AM ESTEducdelaware [facility] center Endocrinology [address] [place] [phone] [place] [address] Duuymy9808/21/2025 7:30 AM EDTProcedure Cardiology [address] [place] [address] DX:POTS (postural orthostatic tachycardia syndrome)08/21/2025 8:00 AM EDT Appointment Cardiology [address] [place] [address] DX:POTS (postural orthostatic tachycardia syndrome)08/21/2025 9:00 AM EDTOffice Visit Cardiology [address] [place] [address] Abhilash Conrad MD [address] [place] [address] DX:POTS (postural orthostatic tachycardia syndrome)08/21/2025 2:30 PM EDTOffice Visit Endocrinology [address] [place] [address] Lorraine Oneill MD [address] [place] [address] follow up01/17/2026 10:30 AM EDTOffice Visit Endocrinology [address] [place] [address] Saba Cook APRN.SCREEN CLEANER [address] [place] [address] 1 year follow updocumented as of this encounter Goals GoalPatient Goal TypeAssociated ProblemsRecent ProgressPatient-Stated?Author Blood Pressure < 130/80 Blood Eiltaaen702/74(01/18/2025 11:06 AM EDT)Andrea You, MDdocumented as of this encounter Visit Diagnoses Not on filedocumented in this encounter Care Teams Team MemberRelationshipSpecialtyStart DateEnd Date Mike Gillis [address] [place] [phone] PCP - General10/28/09 No, Referral Referring12/29/17 Abhilash Conrad MD [address] [place] [address] Primary Staff PhysicianCardiology06/27/18documented as of this encounter
--- OUTSIDE RECORDS SUMMARY | 2025-03-04 14:02 | XMS_ITS | Clinical Summary ---
Author Organization [facility] Address [address] [place] [address] Care Team Providers Care Fabric Sourcer Name Role Phone Mike Gillis Primary Care Provider [phone] No, Referral Unavailable Unavailable Abhilash Conrad MD Unavailable [phone] Allergies Active AllergyReactionsCriticalityNoted HodbGmuimjsbLawjnhvplulZzfz87/08/2005 causes platelet disfunction AspirinUnknown,Other: See ZihtjfulMrkl09/20/2019Moxifloxacin HclIntolerance 06/03/2011 C/O burning feeling on skin LevofloxacinRash,Other: See DgawpfgnKtyf40/20/2018 Per pt feels like she on fire Medications MedicationSigDispense QuantityRefillsLast FilledStart DateEnd DateStatus calcium carbonate 600 mg-cholecalciferol 200 units (CALCIUM 600 + D,3,) 600 mg(1,500mg) -200 unit tab Take 1 tablet by mouth once daily. ctive MULTIVITAMIN (MULTI-DAY ORAL) Take by mouth once daily.Active pen needle, diabetic (COMFORT EZ PEN NEEDLES) 33 gauge x /16 ndle Indications:Well controlled type 2 diabetes mellitus with neurological manifestations (HCC)To inject weekly 10 Each Active fluticasone (FLONASE) 50 mcg/actuation nasal spray Use 2 Sprays in each nostril twice daily.Active loratadine (CLARITIN) 10 mg tablet Take 10 mg by mouth once daily.Active clonazePAM (KLONOPIN) 0.5 mg tablet Take 1 tablet by mouth as needed. For restless leg ydikrhdc57/08/2022Active ergocalciferol 50,000 unit capsule (VITAMIN D2, DRISDOL) Indications:Vitamin D insufficiencyTAKE 1 CAPSULE ONE TIME WEEKLY 13 capsule 3Active Blood-Glucose Meter (TRUE METRIX GLUCOSE METER) Indications: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athy (HCC)1 Each once daily. 1 Each 4Active blood sugar diagnostic (TRUE METRIX GLUCOSE TEST STRIP) test strip Indications: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athy (HCC)Use with blood glucose test once daily 100 Strip 4Active lancets (TRUEPLUS LANCETS) 33 gauge Indications: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athy (HCC)Use with blood glucose test once daily 100 Each 5Active pregabalin (LYRICA) 150 mg capsule Take 1 capsule by mouth two times a day.5Active citalopram (CELEXA) 20 mg tablet Take 1 tablet by mouth once daily.5Active DULoxetine (CYMBALTA) 30 mg capsule Take 1 capsule by mouth once daily.5Active fludrocortisone (FLORINEF) 0.1 mg tablet Indications:Orthostatic lightheadednessTake 2 tablets by mouth once daily. 60 tablet 5Active tirzepatide (MOUNJARO) 7.5 mg/0.5 mL pen injector Inject 7.5 mg subcutaneously one time a week. 2 mL 506Active pravastatin (PRAVACHOL) 10 mg tablet Take 1 tablet by mouth once daily. 90 tablet 5Active Active Problems ProblemNoted DateDiagnosed MzttFirahwqoermu19/13/2025Spinal stenosis of lumbar region with xszfzdngybiuj69/18/2025Lumbar sjynbvszdamqa41/18/2025Lumbosacral spondylosis with zslrifsdxpmxi30/29/2024Chronic bilateral back pain11/29/2023 Abnormal weight gain06/23/2023Type 2 diabetes mellitus with peripheral pwcryxljwk85/10/2022Elevated AST (SGOT)3333Teotcmbdc51/10/2022Restless legs qyfxlrpc67/10/2022ostmenopausal nlopjh5905/21/2021Mixed anxiety depressive zgidworr57/10/4860Aewtlxaeojjctr77/10/7401Mvuxw03/10/2022Chronic pain05/21/2021 Bruises oypyjr2605/21/2021Tinnitus, right ear03/16/2021ensory hearing loss, lhgbkjkaj92/06/2021Orthostatic qukreblnxig50/15/2021yspnea on exertion 12/24/20205359Nvkcwha95/15/2021Qualitative platelet ntqcroyd27/03/2020Osteoarthritis of knee12/05/2018Iron deficiency anemia, tcbwfhazwyy84/14/2019Right buttock pain 03/21/2015Pain in right hip03/21/2015Greater trochanteric bursitis of right hip 03/21/2015Vitamin D juiiajytangig53/03/2014ursitis of hip04/18/2013Type 2 diabetes mellitus with stage 3a chronic kidney disease, without long-term current use of fqjckpk0606/15/2007 Assessment & Plan (11/10/2018 10:32 AM EDT): Assessment: on oral medications Hemoglobin A1C (%) Date Value 05/17/2018 7.1 10/18/2017 6.9 04/19/2017 6.9 10/15/2016 6.4 03/05/2016 6.7 Hemoglobin A1C (POCT) (%) Date Value 09/13/2018 6.3 Mixed zygkzfyymatrdq12/06/2008 Assessment & Plan (11/10/2018 10:32 AM EDT): Assessment: stable on medication Carpal tunnel lrnlqxoi55/21/2006Localized osteoarthrosis not specified whether primary or secondary, hand12/29/2004Nonspecific abnormal findings on radiological or other examinations of the xzmtmk2412/17/2004 Resolved Problems ProblemNoted DateDiagnosed DateResolved DateLesion of ulnar nerve12/15/2004 11/10/2018Pain in limb Encounters DateTypeDepartmentCare UxfdWocvbibrilg08/20/2025Interfaced Data Ground Intelligence Officer Management [address] [place] [address] Mingo Gomes MD 02/20/2025 3:31 PM EST - 02/20/2025 11:59 PM ESTHospital Encounter [facility] Radiology Mammography [address] [place] [address] Discharge Disposition: Home02/14/2025Orders Only Cardiology [address] [place] [address] Abhilash Conrad MD POTS (postural orthostatic tachycardia syndrome) (Primary Dx); Orthostatic lightheadedness; Abnormal electrocardiogram (ECG) (EKG)02/14/20252073Saobxx42/06/2025 Patient [facility] Cardiology [address] [place] [address] Abhilash Conrad MD Appointment Mlufkfn0701/28/2025Refill Cardiology [address] [place] [address] Abhilash Conrad MD Refill Xoroqbe2201/18/2025 11:00 AM EDTOffice Visit Endocrinology [address] [place] [address] Saba Cook APRN.AUTOMOBILE MECHANIC ASSISTANT Type 2 diabetes mellitus with stage 3a chronic kidney disease, without long-term current use of insulin (HCC) (Primary Dx); 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athy (HCC); Overweight (BMI 25.0-29.9)01/18/20256415Zluozb23/01/2025 2:00 PM EDTEducation Endocrinology [address] [place] [address] Medical Nutrition Therapy (Diabetes/ Weight management follow-up)01/08/2025 Qwykpg7601/08/2025Telephone Endocrinology [address] [place] [address] Saba Cook APRN.AUTOMOBILE MECHANIC ASSISTANT 12/20/2024 Patient [facility] Cardiology [address] [place] [address] Abhilash Conrad MD Appointment Yhhvjwo2812/04/2024 Patient [facility] [id number] [place] [address] Provider, Ccf Appointment Time Changefrom Last 3 Months Immunizations ImmunizationAdministration DatesNext DueCOVID-19 original vaccine, age 12+ yr, monovalent (PFIZER-BIONTSearchbox - PURPLE TOP)01/24/2021,06/10/2020,2020 influenza (HD-IIV3) vaccine, age 65+ yr, high dose, trivalent, PF (FLUZONE HIGH-DOSE)03/30/2014influenza (aIIV3) vaccine, age 65+ yr, trivalent, PF (FLUAD) 02/03/2019,12/01/2017zoster (ZVL) vaccine, live (ZOSTAVAX)07/17/2012 Family History Medical HistoryRelationCommentsNo Known ProblemsBrother 1DementiaBrother 2No Known ProblemsBrother 3COPDFatherCoronary Artery DiseaseFatherOvarian cancer Maternal GrandmotherDementiaMotherBreast CancerOtherno known family h/o breast cancerRelationStatusCommentsBrother 1AliveBrother 2AliveBrother 3AliveFather (Age 85)Maternal GrandfatherDeceasedMaternal GrandmotherDeceasedMother (Age 83)OtherPaternal GrandfatherDeceasedPaternal GrandmotherDeceased Social History Tobacco UseTypesPacks/DayYears UsedDateSmoking Tobacco: NeverSmokeless Tobacco: Never Tobacco Cessation:Counseling Given: Not Answered Alcohol UseStandard Drinks/WeekCommentsNot Currently0 (1 standard drink = 0.6 oz pure alcohol)PHQ-2AnswerDate RecordedPHQ-2 xtdqy4775Area Deprivation IndexAnswerDate RecordedNational Score (1-100), lower number is lower risk55 12/23/2022State Score (1-10), lower number is lower mgln6813Data from: https://www.neighborhoodatlas.medicine.[facility], [place].edu/. Last address used for bfapozehecy[address]CommentsNoSex and Gender InformationValueDate RecordedSex Assigned at NjtbiJbvldi14/28/2021 7:54 AM EDT Legal FtmEwawib20/02/2012 9:28 AM ESTGender QdyuicaeLijfbb33/28/2021 7:54 AM EDT Sexual RwlelwpjcllTancjqhj06/13/2022 1:03 PM EST Last Filed Vital Signs Vital SignReadingTime TakenCommentsBlood Tzjbqcbf895/7410 11:06 AM EDT Wbvtp961501/18/2025 11:06 AM YODGkibuccukab54.6 ??C (97.8 ??F)10/09/2024 9:15 AM EDTRespiratory Mtaj1285 9:15 AM EDTOxygen Nujvixvolt94%10/09/2024 9:15 AM EDTInhaled Oxygen Concentration--Ndqzip81.5 kg (186 lb 4.6 oz)01/18/2025 11:06 AM RTNQufkps855.7 cm (5' 8 )09/11/2024 9:49 AM EDTBody Mass Index28.33 09/11/2024 9:49 AM EDT Plan of Treatment DateTypeDepartmentCare Team (Latest Contact Info)Vknavjyxdss16/25/2025 10:00 AM ESTOffice Visit Neurology [address] [place] [address] Mariza Wolfe PA-C [address] [place] [address] 03/13/2025 4:00 PM ESTOffice Visit Neurology [address] [place] [address] Kang Hightower [place] [id number] [place] [address] Mcedzezk22/09/2026 11:00 AM ESTEducation Endocrinology [address] [place] [address] [place] [address] Please schedule pt for in-person, joint follow-up with spouse Sravan ( ) on 04/19/24 @ 11AM-12PM. Thank you!05/07/2025 11:20 AM ESTOffice Visit Orthopaedics [address] [place] [address] Carl Hernadez MD [address] [place] [address] right hip pain05/29/2025 11:00 AM ESTEducation Endocrinology [address] [place] [address] Farzana Morrow, JORDY [address] [place] [address] Koocao5908/21/2025 7:30 AM EDTProcedure Cardiology [address] [place] [address] DX:POTS (postural orthostatic tachycardia syndrome)08/21/2025 8:00 AM EDT Appointment Cardiology [address] [place] [address] DX:POTS (postural orthostatic tachycardia syndrome)08/21/2025 9:00 AM EDTOffice Visit Cardiology [address] [place] [address] Abhilash Conrad MD [address] [place] [address] DX:POTS (postural orthostatic tachycardia syndrome)08/21/2025 2:30 PM EDTOffice Visit Endocrinology [address] [place] [address] Lorraine Oneill MD [address] [place] [address] follow up01/17/2026 10:30 AM EDTOffice Visit Endocrinology [address] [place] [address] Saba Cook APRN.AUTOMOBILE MECHANIC ASSISTANT [address] [place] [address] 1 year follow upHealth MaintenanceDue DateLast DoneCommentsAnnual PCP Team Chronic Disease Visit1965Hepatitis C Aeywckizt25/02/1966Bone Density Xlugruuay30/02/2013Medicare Annual Wellness Visit04/11/2013Hemoglobin/Hematocrit , 12/24/2020, 12/08/2018, Additional history existsRSV Vaccine (1 - 1-dose 75+ series)2022dvance Directive Rygxyrvfqv35/01/2025 Dilated Retinal Exam/, 05/23/2019, 05/19/2018, Additional history existsCovid-19 Vaccine ( season)509/, 06/25/2022, 03/08/2021, Additional history existsInfluenza Vaccine (#1) /, 04/12/2023, 03/15/2022, Additional history fhswlgXaL7S , 07/23/2024, 05/11/2024, Additional history existsDiabetic Foot Exam/, 05/24/2022, 05/21/2021, Additional history exists LDL Pzunpjhlthx27, 07/23/2024, 05/11/2024, Additional history existsSerum Whmlmcrtva95, 07/23/2024, 05/11/2024, Additional history existsUrine Albumin:Creatinine Ratio, 07/23/2024, 05/11/2024, Additional history existsDTaP,Tdap,Td Vaccine (2 - Td or Tdap) /11/2023Shingrix QalotvePdkvpzqgp49/30/2021, 09/18/2020, 07/17/2012 Pneumococcal Vaccine: 50+Psqdmoqtx16/05/2022, 12/02/2019Mammogram Screening Rwghomazbfdf59/12/2025, 01/05/2024, 12/30/2022, Additional history exists Goals GoalPatient Goal TypeAssociated ProblemsRecent ProgressPatient-Stated?Author Blood Pressure < 130/80 Blood Mrgdxmaa054/74(01/18/2025 11:06 AM EDT)Andrea You MD Medical Devices ImplantedTypeAreaManufacturerDevice IdentifierShelf Expiration DateModel / Serial / LotComponent 32mm Tritanium 10mm Patellar Asymmetric - [id number] Implanted:12/05/2018 at [facility] (Quantity not on file)Joint - KneeLeft: Bone - [facility] IETNGMTCGMD29/23/[id number] / / [id number] Triathlon 4 X3 9mm Tibial Condylar Stabilized Knee - [id number] Implanted:12/05/2018 at [facility] (Quantity not on file)Joint - KneeLeft: Bone - [facility] FAQLRQBVNWO61/05/[id number] / / [id number] Triathalon 4 Tritanium Tibial Coated Sterile Knee - [id number] Implanted:12/05/2018 at [facility] (Quantity not on file)Joint - KneeLeft: [facility] - [facility] BGNUPPLVRTK83/16/[id number] / / [id number] Triathlon 4 Pa Femoral Cruciate Retain Bead Knee Left - [id number] Implanted:12/05/2018 at [facility] (Quantity not on file)Joint - KneeLeft: Bone [facility] RWQZWZQFRZL49/08/[id number] / / [id number] Procedures Procedure NamePriorityDate/TimeAssociated DiagnosisCommentsMAM SCREENING W SINAN 02/20/2025 5:04 PM EST ALBUMIN/CREATININE RATIO, YPMKJYwianjp76/20/2025 10:09 AM EDT Type 2 diabetes mellitus with stage 3a chronic kidney disease, without long-term current use of insulin ([facility]) HEMOGLOBIN S6SLssgpal33/20/2025 9:57 AM EDT Type 2 diabetes mellitus with stage 3a chronic kidney disease, without long-term current use of insulin ([facility]) COMPREHENSIVE METABOLIC SHUUANiyvsoy12/20/2025 9:57 AM EDT Type 2 diabetes mellitus with stage 3a chronic kidney disease, without long-term current use of insulin ([facility]) LIPID PANEL, MEYGDOALanfnrc55/20/2025 9:57 AM EDT Type 2 diabetes mellitus with stage 3a chronic kidney disease, without long-term current use of insulin ([facility]) COMPLETE BLOOD SFVKZOwljpge28/02/2022 10:12 AM EST Uncontrolled type 2 diabetes with neuropathy (HCC) from Last 3 Months or Most Recently Relevant to Health Maintenance Results * ITALO SCREENING W SINAN (02/20/2025 5:04 PM EST)Anatomical RegionLaterality ModalityBreastMammographySpecimen (Source)Anatomical Location / Laterality Collection Method / VolumeCollection TimeReceived Time02/20/2025 5:04 PM EST Impressions 02/23/2025 7:15 AM EST IMPRESSION: Finding 1: ??Finding in the left breast requires additional evaluation. Diagnostic mammogram with possible ultrasound is recommended. BI-RADS Category 0: Incomplete: Needs Additional Imaging Evaluation RISK: Based on the Tyrer-Cuzick (TC) risk assessment model, this patient has a 3.0% ??lifetime risk of developing breast cancer, meaning they are at average risk for developing breast cancer. However, this is only an estimate based on available history provided on the patient's questionnaire. We encourage all patients to talk with their providers about these results, further recommendations for managing breast health, and appropriate supplemental screening options if the patient has dense breast tissue. REF#[id number]. Interpreting Radiologist: Xiomara Medrano M.D. Electronically signed on: 02/23/2025 Billing Administrator: RIAZ Transcrialiya Date/Time: Feb 20 2025 ??5:02P Dictated by : XIOMARA MEDRANO MD This examination was interpreted and the report reviewed and electronically signed by: XIOMARA MEDRANO MD on Feb 23 2025 ??7:09AM ??EST Narrative 02/23/2025 7:15 AM EST * * *Final Report* * * DATE OF EXAM: Feb 20 2025 ??5:04PM ?? VHW ?? 0582 ??- ??ITALO SCREENING W SINAN ??/ PROCEDURE REASON: Z12.39 ? * * * * Physician Interpretation * * * * RESULT: [facility] [address] [place] [address] #[id number] - ITALO SCREENING W SINAN HISTORY: 79 year-old patient presents for screening,a palpable abnormality in the lower inner quadrant of the left breast and focal pain in the left breast. Patient states no personal history of breast cancer. The patient has a family history of breast and ovarian cancer. COMPARISON STUDIES: The present examination has been compared to prior imaging studies dated 07/17/2020 (mammogram), 10/22/2021 (mammogram), 12/30/2022 (mammogram) and 01/05/2024 (mammogram). MAMMOGRAM TECHNIQUE: The study was acquired using full field digital technology and interpreted from soft copy. Digital Breast Tomosynthesis (DBT) images were obtained and used to assist in the interpretation of this examination. MAMMOGRAM FINDINGS: There are scattered areas of fibroglandular density. Finding 1: There is no mammographic correlation to correspond with patient's clinical findings of a palpable area in the lower inner left breast and diffuse pain in the left breast. Finding 2: There are post-biopsy changes in the right breast. Procedure Note Provider, [facility] - 02/23/2025 * * *Final Report* * * DATE OF EXAM: Feb 20 2025 5:04PM [facility] 0582 - ITALO SCREENING W SINAN / PROCEDURE REASON: Z12.39 * * * * Physician Interpretation * * * * RESULT: [facility] [address] [place] [address] #[id number] - [facility] SCREENING W SINAN HISTORY: 79 year-old patient presents for screening,a palpable abnormality in the lower inner quadrant of the left breast and focal pain in the left breast. Patient states no personal history of breast cancer. The patient has a family history of breast and ovarian cancer. COMPARISON STUDIES: The present examination has been compared to prior imaging studies dated 07/17/2020 (mammogram), 10/22/2021 (mammogram), 12/30/2022 (mammogram) and 01/05/2024 (mammogram). MAMMOGRAM TECHNIQUE: The study was acquired using full field digital technology and interpreted from soft copy. Digital Breast Tomosynthesis (DBT) images were obtained and used to assist in the interpretation of this examination. MAMMOGRAM FINDINGS: There are scattered areas of fibroglandular density. Finding 1: There is no mammographic correlation to correspond with patient's clinical findings of a palpable area in the lower inner left breast and diffuse pain in the left breast. Finding 2: There are post-biopsy changes in the right breast. IMPRESSION IMPRESSION: Finding 1: Finding in the left breast requires additional evaluation. Diagnostic mammogram with possible ultrasound is recommended. BI-RADS Category 0: Incomplete: Needs Additional Imaging Evaluation RISK: Based on the Tyrer-Cuzick (TC) risk assessment model, this patient has a 3.0% lifetime risk of developing breast cancer, meaning they are at average risk for developing breast cancer. However, this is only an estimate based on available history provided on the patient's questionnaire. We encourage all patients to talk with their providers about these results, further recommendations for managing breast health, and appropriate supplemental screening options if the patient has dense breast tissue. REF#[id number]. Interpreting Radiologist: Xiomara Medrano M.D. Electronically signed on: 02/23/2025 Billing Administrator: RIAZ Transcribe Date/Time: Feb 20 2025 5:02P Dictated by : XIOMARA MEDRANO MD This examination was interpreted and the report reviewed and electronically signed by: XIOMARA MEDRANO MD on Feb 23 2025 7:09AM EST Authorizing ProviderResult TypeResult StatusBrett Leonardo Catherine-PAMAFinal Result * ALBUMIN/CREATININE RATIO, URINE (11/28/2024 10:09 AM EDT)ComponentValueRef RangeTest MethodAnalysis TimePerformed AtPathologist SignatureCreatinine, Ur Random (UCRR)166.820.0 - 300.0 mg/dL11/29/2024 10:38 AM [facility] LABAlbumin, Urine Iqniyb88.7mg/L11/29/2024 10:38 AM [facility] LABAlbumin/Creat Ratio8<30 mg/g011/29/2024 10:38 AM EDT [facility] LABComment: Adult Male and Female Nephrotic Criteria: <30 mg/g is considered normal to mildly increased 30-300 mg/g is considered moderately increased >300 mg/g is considered severely increased KDIGO. (2013). KDIGO 2012 Clinical Practice Guideline for the Evaluation and Management of Chronic Kidney Disease. Official Journal of the International Society of Nephrology, 3(1), 1-150. Specimen (Source)Anatomical Location / LateralityCollection Method / Volume Collection TimeReceived TimeUrineURINE SPECIMEN / UnknownNon Blood / Unknown 11/28/2024 10:09 AM EDT11/28/2024 10:09 AM EDT Narrative Authorizing ProviderResult TypeResult StatusLorraine Oneill MDLABORATORYFinal ResultPerforming OrganizationAddressCity/State/ZIP CodePhone Number [facility] [address] [facility] [address] [place] [address], * (ABNORMAL) LIPID PANEL, FASTING (11/28/2024 9:57 AM EDT)ComponentValueRef RangeTest MethodAnalysis TimePerformed AtPathologist SignatureCholesterol, Axgmn320<200 mg/dL11/28/2024 7:00 PM [facility] LAB Comment: <200 mg/dL, Desirable 200-239 mg/dL, Borderline high >239 mg/dL, High Znqxfidlbggr677(H)<150 mg/dL11/28/2024 7:00 PM [facility] LABComment: <150 mg/dL, Normal 150-199 mg/dL, Borderline high 200-499 mg/dL, High >499 mg/dL, Very high HDL Rnfnpojutwm91(L)>39 mg/dL11/28/2024 7:00 PM [facility] LABComment: 40-59 mg/dL, Acceptable >59 mg/dL, High: Negative risk factor for coronary heart disease <40 mg/dL, Low: Positive risk factor for coronary heart disease LDL Cholesterol, Whjqfrlucf982(H)<100 mg/dL11/28/2024 7:00 PM [facility] LABComment: <100 mg/dL, Optimal 100-129 mg/dL, Near optimal/above optimal 130-159 mg/dL, Borderline high 160-189 mg/dL, High >189 mg/dL, Very high Secondary prevention optimal LDL Cholesterol levels are recommended to be <70 mg/dL LDL cholesterol is calculated using the Browning-NIH equation. Non HDL Jadgrnvpsxt143(H)<130 mg/dL11/28/2024 7:00 PM [facility] LABComment: <130 mg/dL, Optimal 130-159 mg/dL, Near optimal/above optimal 160-189 mg/dL, Borderline high 190-219 mg/dL, High >219 mg/dL, Very high Secondary prevention optimal non HDL Cholesterol levels are recommended to be <100 mg/dL VLDL Xmwarvnejzn59<30 mg/dL11/28/2024 7:00 PM [facility] LABTC:HDL Ratio5.00<5.1008 7:00 PM [facility] LDL:HDL Ratio3.15(H)<2.54011/28/2024 7:00 PM [facility] Comment: Reference: 1. National Cholesterol Education Program ATP III Guideline At-A-Glance Quick Desk Reference: National Heart, Lung, and Blood [place]. National Institutes of Health. 2001: NIH Publication No. 01-3305. 2. An International Atherosclerosis Society position paper: global recommendations for the management of dyslipidemia: executive summary, Atherosclerosis. 2014: 232(2):410-413. Fasting Ijal70xzw93/20/2025 7:00 PM EDTNORTASCENSION [facility] Specimen (Source)Anatomical Location / LateralityCollection Method / Volume Collection TimeReceived TimeBloodBLOOD SPECIMEN / UnknownVenipuncture / Unknown 11/28/2024 9:57 AM EDT11/28/2024 9:57 AM EDT Narrative Authorizing ProviderResult TypeResult StatusLorraine Oneill MDLABORATORYFinal ResultPerforming OrganizationAddressCity/State/ZIP CodePhone Number [facility] [address] [facility] [address] [place] [address], [facility] [address] [place] [address] * (ABNORMAL) HEMOGLOBIN A1C (11/28/2024 9:57 AM EDT)ComponentValueRef RangeTest MethodAnalysis TimePerformed AtPathologist SignatureHemoglobin A1C6.2(H)4.3 - 5.6 %11/28/2024 5:55 PM EDTCJ.W. [facility] LABComment:[place] Diabetes Association guidelines indicate that patients with HgbA1c in the range 5.7-6.4% are at increased risk for development of diabetes, and intervention by lifestyle modification may be beneficial. HgbA1c greater or equal to 6.5% is considered diagnostic of diabetes.Estimated Average Glucose 131mg/dL11/28/2024 5:55 PM EDTCJ.[facility]. [facility] LABComment:eAG: (Estimated average glucose) is a calculated value from HgbA1c and is dermatology sales representative of the average blood glucose level in the last 2-3 month period.Specimen (Source)Anatomical Location / LateralityCollection Method / VolumeCollection TimeReceived TimeBloodBLOOD SPECIMEN / UnknownVenipuncture / Obrplbd3511/28/2024 9:57 AM EDT11/28/2024 9:57 AM EDT Narrative Authorizing ProviderResult TypeResult StatusLorraine Oneill MDLABORATORYFinal ResultPerforming OrganizationAddressCity/State/ZIP CodePhone Number [facility] [address] [place] [address], * (ABNORMAL) COMPREHENSIVE METABOLIC PANEL (11/28/2024 9:57 AM EDT)Component ValueRef RangeTest MethodAnalysis TimePerformed AtPathologist Signature Protein, Total6.96.3 - 8.0 g/dL11/28/2024 10:26 AM [facility]TNOR[facility] LABAlbumin4.33.9 - 4.9 g/dL11/28/2024 10:26 AM [facility]ORT[facility] LABCalcium, Total9.98.5 - 10.2 mg/dL11/28/2024 10:26 AM [facility]TNORT[facility] LABBilirubin, Total0.50.2 - 1.3 mg/dL 11/28/2024 10:26 AM [facility]ORTASC[facility] LABAlkaline Dqoykcgtctg28319 - 123 U/L11/28/2024 10:26 AM [facility] RTJPDV3232 - 35 U/L11/28/2024 10:26 AM [facility] [id number] - 38 U/L11/28/2024 10:26 AM [facility]ORT[facility] AQHKuvqvzg841(H)74 - 99 mg/dL11/28/2024 10:26 AM [facility] LABComment: The [place] [employer] (ADA) provides guidance for cutoff values for fasting glucose andrandom glucose. The ADA defines fasting as no caloric intake for at least 8 hours. Fasting plasma glucose results between 100 to 125 mg/dL indicate increased risk for diabetes (prediabetes). Fasting plasma glucose results greater than or equal to 126 mg/dL meet the criteria for diagnosis of diabetes. In the absence of unequivocal hyperglycemia, results should be confirmed by repeat testing. In a patient with classic symptoms of hyperglycemia or hyperglycemic crisis, random plasma glucose results greater than or equal to 200 mg/dL meet the criteria for diagnosis of diabetes. Reference: Standards of Medical Care in Diabetes 2016, [place] [employer]. Diabetes Care. 2016.39(Suppl 1). MMZ019 - 21 mg/dL11/28/2024 10:26 AM [facility] Creatinine1.24(H)0.58 - 0.96 mg/dL11/28/2024 10:26 AM [facility] TFNDmblgo188104 - 144 mmol/L11/28/2024 10:26 AM [facility] LABPotassium4.33.7 - 5.1 mmol/L11/28/2024 10:26 AM [facility] UFJCvaznsjz10723 - 107 mmol/L11/28/2024 10:26 AM [facility] WCGSO11108 - 30 mmol/L11/28/2024 10:26 AM [facility] LABAnion Ygl048 - 15 mmol/L11/28/2024 10:26 AM [facility] LABEstimated Glomerular Filtration Rate45(L)>=60 mL/min/1.73m 11/28/2024 10:26 AM [facility] LABComment:Estimated Glomerular Filtration Rate (eGFR) is calculated using the 2020 CKD-EPI creatinine equation. This equation utilizes serum creatinine, sex, and age as parameters. The creatinine assay has traceable calibration to isotope dilution- mass spectrometry. Refer to KDIGO guidelines for clinical interpretation. In patients with unstable renal function, e.g. those with acute kidney injury, the eGFRmay not accurately reflect actual GFR.Specimen (Source)Anatomical Location / LateralityCollection Method / VolumeCollection TimeReceived TimeBloodBLOOD SPECIMEN / UnknownVenipuncture / Ujdphov2911/28/2024 9:57 AM EDT11/28/2024 9:57 AM EDT Narrative Authorizing ProviderResult TypeResult StatusLorraine Oneill MDLABORATORYFinal ResultPerforming OrganizationAddressCity/State/ZIP CodePhone Number [facility] [address] [place] [phone] * CBC (2021 10:12 AM EST)ComponentValueRef RangeTest MethodAnalysis Time Performed AtPathologist SignatureWBC9.333.70 - 11.00 k/uL2021 10:09 AM [facility] CareRBC4.233.90 - 5.20 m/uL2021 10:09 AM [facility] DngzGvbphpebej91.111.5 - 15.5 g/dL2021 10:09 AM [facility] CareHematocrit 40.136.0 - 46.0 %2021 10:09 AM [facility] RmskWPU38.880.0 - 100.0 fL2021 10:09 AM [facility] ZfdfPFG35.026.0 - 34.0 pG2021 10:09 AM [facility] AkulUJBA91.730.5 - 36.0 g/dL2021 10:09 AM [facility] CareRDW-CV13.811.5 - 15.0 %2021 10:09 AM [facility] CarePlatelet [id number] - 400 k/uL 2021 10:09 AM [facility] CareMPV9.49.0 - 12.7 fL2021 10:09 AM [facility] CareAbsolute nRBC<0.01<0.01 k/uL02/05/2021 10:09 AM [facility] CareSpecimen (Source)Anatomical Location / LateralityCollection Method / VolumeCollection TimeReceived TimeBloodWHOLE BLOOD SPECIMEN / Unknown 2021 10:12 AM EST2021 10:09 AM EST Narrative Authorizing ProviderResult TypeResult StatusAdi E Apple MDLABORATORYFinal Result Performing OrganizationAddressCity/State/ZIP CodePhone Number [facility] [place] [address] [place] [address] [facility] [address], [place] from Last 3 Months or Most Recently Relevant to Health Maintenance [place] [id number] * Guarantor: [facility]Account TypeRelation to PatientDate of PhoneBilling AddressCorporateOther [address] [place] [address] Care Teams Team MemberRelationshipSpecialtyStart DateEnd Date Mike Gillis [address] [place] [phone] PCP - General10/28/09 No, Referral Referring12/29/17 Abhilash Conrad MD [address] [place] [address] Primary Staff PhysicianCardiology06/27/18
--- OUTSIDE RECORDS SUMMARY | 2025-03-04 14:06 | XMS_ITS | CCD ---
Author Organization [facility] Care Team Providers Care Document Preparation Specialist Name Role Phone ERICH GILLIS Primary Care Physician Erich Gillis Primary Care Provider [phone] No, Referral Unavailable Unavailable Da King MD Unavailable Merary Booth Unavailable Erich Gillis Unavailable Mayco Abel Unavailable Carlin, DO Mckeon Primary Care Provider Carlin, DO Mckeon Attending Provider MD Merary Booth Attending Provider Erich Gillis Primary Care Provider Da King MD Unavailable Erich Gillis Primary Care Provider [phone] No, Referral Unavailable Unavailable Da King MD Unavailable Carlin, DO Mckeon Primary Care Provider [phone] Arsenios, DO Mckeon Attending Provider Kuns, DO Mckeon Primary Care Provider Carlin, DO Mckeon Attending Provider [phone] Arsenios, DO Mckeon Primary Care Provider Carlin, DO Mckeon Attending Provider DO Madi Almonte Emergency Provider [phone] Arsenios, DO Mckeon Primary Care Provider [phone] Carlin, DO Mckeon Attending Provider MD Merary Booth Attending Provider [phone] No, Referral Unavailable Unavailable Arsenios, DO Mckeon Primary Care Provider Kuns, DO Erich Attending Provider Da King MD Unavailable Kuns, DO Erich Primary Care Provider [phone] Kuns, DO Erich Attending Provider Kuns, DO Erich Primary Care Provider Kuns, DO Erich Primary Care Provider MD Merary Booth Attending Provider [phone] Kuns, DO Mckeon Attending Provider [phone] Unavailable Primary Care Provider Unavailabl e DAUCH-SHOSHONE-PAIUTE, TAMEKA Mike Attending Unavail able REJI BENTLEY Referring Unavailable DAUCH-SHOSHONE-PAIUTE, TAMEKA Mike Attending Unavail able REJI BENTLEY Referring Unavailable DAUCH-SHOSHONE-PAIUTE, TAMEKA Mike Attending Unavail able REJI BENTLEY Referring Unavailable DAUCH-SHOSHONE-PAIUTE, TAMEKA Mike Attending Unavail able REJI BENTLEY Referring Unavailable DAUCH-SHOSHONE-PAIUTE, TAMEKA Mike Attending Unavail able REJI BENTLEY Referring Unavailable NEVA EPPS Attending Unavailable REJI BENTLEY Referring Unavailable DO Erich Gillis Primary Care Provider [phone] Jake [facility] Felecia E Emergency Provider WILMER HansenC Cheri Doss Attending Provider Erich Gillis Primary Care Provider Carlin, DO Mckeon Primary Care Provider [phone] Carlin, DO Mckeon Attending Provider KACI Saavedra Admitting Unavailabl e Kristie Saavedra Attending Unavailable ERICH GILLIS Referring Unavailable Anirudh Arroyo Attending Unavailable Anirudh Arroyo Admitting Unavailable ERICH GILLIS Referring Unavailable DO Anirudh Arroyo Admitting Unavailabl e Anirudh Arroyo Attending Unavailable Anirudh Arroyo Referring Unavailable Anirudh Arroyo Attending Unavailable Anirudh Arroyo Referring Unavailable Anirudh Arroyo Admitting Unavailable DO Anirudh Arroyo Admitting Unavailabl e Anirudh Arroyo Attending Unavailable Anirudh Arroyo Referring Unavailable Jamey Malone Attending Unavailable Jaemy Malone Referring Unavailable MD Jamey Malone Admitting Unavailable COOK, Ryan P Attending Unavailable COOK, Ryan P Attending Unavailable COOKRyan P Attending Unavailable Saavedra, Kristie Attending Unavailable Saavedra, Kristie Admitting Unavailable Saavedra, Kristie Attending Unavailable KACI Saavedra Kristie Admitting Unavailabl e KUNS, ERICH Referring Unavailable Saavedra, Kristie Attending Unavailable KACI Saavedra Kristie Admitting Unavailabl e KUNS, ERICH Referring Unavailable RIZWANA, TAGREED M Referring Unavailable KUNS, ERICH LEONARDO Primary Care Unavailable RIZWANA, TAGREED M Referring Unavailable KUNS, ERICH LEONARDO Primary Care Unavailable KUNS, ERICH LEONARDO Primary Care Unavailable RIZWANA, TAGREED M Referring Unavailable KUNS, ERICH LEONARDO Primary Care Unavailable SHERYL SCHWARTZ Referring Unavailable LORRAINE ONEILL Referring Unavailable KUNS, ERICH LEONARDO Primary Care Unavailable RIZWANA, TAGREED M Referring Unavailable KUNS, ERICH LEONARDO Primary Care Unavailable Himanshu BRICENO, Iker Maria Attending Unavailable Kuns, Erich Attending Unavailable Kuns, Erich Primary Care Unavailable Kuns, Erich Admitting Unavailable Kuns, Erich Primary Care Unavailable Cheri Hansen R Attending Unavailable BertoCheri R Admitting Unavailable Kuns, Erich Attending Unavailable Kuns, Erich Primary Care Unavailable Kuns, Erich Admitting Unavailable Kuns, Erich Primary Care Unavailable Bullimore, Felecia E Attending Unavailable Bullimore, Felecia E Admitting Unavailable Kuns DO, Erich Primary Care Provider Kuns DOErich Attending Provider [phone] Da King MD Unavailable Kuns DO, Erich Primary Care Provider Lorraine Oneill Attending Provider [phone] Kuns DO, Erich Attending Provider [phone] RIZWANA, TAGREED Referring Unavailable KUNS, ERICH LEONARDO Primary Care Unavailable RIZWANA, TAGREED Attending Unavailable KUNS, ERICH LEONARDO Primary Care Unavailable LORRAINE ONEILL Attending Unavailable KUNS, ERICH LEONARDO Primary Care Unavailable DA KING Attending Unavailable KUNS, ERICH LEONARDO Primary Care Unavailable SELF Referring Unavailable RIZWANA, TAGREED Referring Unavailable KUNS, ERICH LEONARDO Primary Care Unavailable KUNS, ERICH LEONARDO Primary Care Unavailable MATTHEW, LISBETHN Referring Unavailable KUNS, ERICH LEONARDO Primary Care Unavailable ANDRES RUBIO Attending Unavailable RIZWANA, TAGREED Referring Unavailable KUNS, ERICH LEONARDO Primary Care Unavailable BUCK DAY Attending Unavail able KUNS, ERICH LEONARDO Primary Care Unavailable RIZWANA, TAGREED Attending Unavailable KUNS, ERICH LEONARDO Primary Care Unavailable ZAK COHEN Admitting Unavailable ZAK COHEN Referring Unavailable ZAK COHEN Attending Unavailable KUNS, ERICH LEONARDO Primary Care Unavailable VICKI, ZAK Admitting Unavailable VICKI, ZAK Referring Unavailable ZAK COHEN Attending Unavailable KUNS, ERICH LEONARDO Primary Care Unavailable RIZWANA, TAGREED Referring Unavailable DORI PADILLA Attending Unavailable KUNS, ERICH LEONARDO Primary Care Unavailable ZAK COHEN Attending Unavailable KUNS, ERICH LEONARDO Primary Care Unavailable VICTOR MANUEL COHENIP Admitting Unavailable VICTOR MANUEL COHENIP Referring Unavailable KUNS, ERICH LEONARDO Primary Care Unavailable ZAK COHEN Attending Unavailable ZAK COHEN Admitting Unavailable JOELLEIS, ZAK Referring Unavailable KUNS, ERICH LEONARDO Primary Care Unavailable KARL COOK Attending Unavailable KUNS, ERICH LEONARDO Primary Care Unavailable FARZANA MORROW Attending Unavailable KUNS, ERICH LEONARDO Primary Care Unavailable RIZWANA, TAGREED Referring Unavailable KUNS, ERICH LEONARDO Primary Care Unavailable RIZWANA, TAGREED Attending Unavailable RIZWANA, TAGREED Referring Unavailable KUNS, ERICH LEONARDO Primary Care Unavailable RIZWANA, TAGREED Referring Unavailable KUNS, ERICH LEONARDO Primary Care Unavailable KUNS, ERICH LEONARDO Primary Care Unavailable RIZWANA, TAGREED Referring Unavailable KUNS, ERICH LEONARDO Primary Care Unavailable KARL COOK Attending Unavailable KUNS, ERICH LEONARDO Primary Care Unavailable FARZANA MORROW Attending Unavailable Caleb MD, Antony L Attending Provider [phone] Ryan LIVE Attending Unavailable Ryan LIVE Attending Unavailable Ryan LIVE Attending Unavailable Ryan LIVE Attending Unavailable Allergies Allergy ClassificationReported Allergen(s)Allergy TypeDate of OnsetReaction(s) Facility (20 sources)Aspirin; Translations: [aspirin]Drug Qgnyibt08-61-3304Liiiilk, Other: See Comments, Unknown (qualifier value)[facility] Other Comment on above:Blood platelets go very lowBruising, platelet dysfunction (20 sources)levoFLOXacin; Translations: [levofloxacin]Drug Iurljom57-82-3113 Rash, Other: See Comments, Itching (finding), Burning vapor (physical force) [facility] Other (20 sources)moxifloxacin; Translations: [moxifloxacin]Drug Axgbwoi86-15-2530 Itching (finding), Burning (qualifier value)[employer] Other Comment on above:Sensation of Burning up from the inside (18 sources)AmoxicillinDrug Qyggsyf04-33-3261Acfxrbjwzwc, ItchingWilson Health Work Phone: (20 sources)moxifloxacin; Translations: [MOXIFLOXACIN HCL]Drug Bjemvli76-78-8634 IntoleranceWilson Health (8 sources)Salicylic Acid; Translations: [SALICYLATES]Drug Fhlxhcl26-39-1107 [facility] Work Phone: (20 sources)Salicylate productDrug Ywjygxc87-47-9865[facility] Work Phone: (20 sources)NSAIDS (Non-Steroidal Anti-Inflamma; Translations: [NSAIDS (Non- Steroidal Anti-Inflamma]Allergy to rlpespnne55-29-4541Aarhmsz ReactionOhiohealth Grady Memorial HospitalComment on above:affects platelets (1 source)AspirinDrug Wxchvfa11-40-6552WvzclkqpcOhiohealth Grady Memorial Hospital Repository (1 source)levoFLOXacinDrug Wsrtoou97-52-3289LhhruuvtcOhiohealth Grady Memorial Hospital Repository (1 source)moxifloxacinDrug Yrlpzkm18-47-5738Xlrttzybf [facility] Medications Current Medications MedicationDrug Class(es)DatesSig (Normalized)Sig (Original)0.25 MG, 0.5 MG Dose 3 ML semaglutide 0.68 MG/ML Pen Injector [Ozempic] (9 sources)Start: 12-12-0326Mfgzmol 2 mg/3 mL (0.25 mg or 0.5 mg dose) subcutaneous solution Refills(s) 0 Start Date: 02/08/23 Status: Ordered0.5 ML tirzepatide 15 MG/ML Auto-Injector [Mounjaro] (2 sources)Start: 79-85-5277Zkbvqxzl 7.5 mg/0.5 mL subcutaneous solution 7.5 mg Start Date: 08/21/24 Status: Ordered Medication Dispense Status: Completed Total Allowed Fills: 1 Fills Dispensed: 0Start: 72-00-2793Sdzdwlwj 7.5 mg/0.5 mL subcutaneous solution 7.5 mg Start Date: 08/21/24 Status: Ordered Repeat number: 1Augmentin Tablets 875 MG (2 sources)Start: 04-11-3668vqqp 1 tablet by mouth every twelve hoursAugmentin Tablets 875 MG 1 tablet oral BID for 10 days Oct, Activeazelastine (15 sources)Histamine-1 Receptor AntagonistAstelin ActiveBlood-Glucose Meter (20 sources)Start: 67-79-2398Rnqqg-Glucose Meter Use as directed to check BG daily. Dx: E11.49 not on insulin 1 Each 1 05/28/2022 ActiveStart: 05-24-2022 End: 22-87-1715Qusma-Glucose Meter Use as directed to check BG daily 1 Each 05/24/2022 05/28/2022 DiscontinuedStart: 90-48-8179Pueba-Glucose Meter Use as directed to check BG daily 1 Each 05/24/2022 ActiveComment on above:Use as directed to check BG dailyUse as directed to check BG daily. Dx: E11.49 not on insulinBlood-Glucose Meter (TRUE METRIX GLUCOSE METER) (20 sources)Start: 09-25-9059Kmfeq-Glucose Meter (TRUE METRIX GLUCOSE METER) Indications: 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athy (HCC) 1 Each once daily. 1 Each 09/08/2023 ActiveStart: 45-67-4816Ssrlf-Glucose Meter (TRUE METRIX GLUCOSE METER) Indications: 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athy (HCC) 1 Each once daily. 1 Each 0 09/08/2023 Ecnlju477 actuat budesonide 0.16 mg/actuat / formoterol fumarate 0.0048 mg/actuat / glycopyrrolate 0.009 mg/actuat metered dose inhaler (10 sources)Corticosteroid, beta2-Adrenergic AgonistStart: 77-85-1480jyii 2 puff(s) by inhalation twice dailyBreztri Aerosphere 160-9-4.8 MCG/ACT 2 puffs Inhalation Twice a day Nov, ActiveCalcium (20 sources)Phosphate Binder, CalciumStart: 56-42-8310tplb 1 dose by mouth once dailyCalcium 600+D Oral, Daily, Refill(s) 0, Prophylaxis Start Date: 06/23/15 Status: Ordered Medication Dispense Status: Completed Total Allowed Fills: 1 Fills Dispensed: 0Start: 09-07-6554Djzigfh 600+D Oral, Daily, Refill(s) 0, Prophylaxis Start Date: 06/23/15 Status: Ordered Repeat number: 1Start: 28-61-1653Zkixjdi 600+D Oral, Daily, Refill(s) 0, Prophylaxis Start Date: 06/23/15 Status: Orderedcalcium carbonate 1500 mg oral tablet (20 sources)Start: 83-95-2319gcdm 1 tablet by mouth twice dailycalcium (as carbonate) 600 mg oral tablet 600 mg = 1 tab(s), Oral, BID, Refills(s) 0 Start Date: 11/24/21 Status: Ordered Medication Dispense Status: Completed Total Allowed Fills: 1 Fills Dispensed: 0calcium carbonate 1500 mg / cholecalciferol 200 unt oral tablet (20 sources)Vitamin DStart: 60-93-3018whwc 1 tablet by mouth once dailyCalcium Carbonate-Vitamin D3 (Calcium 600 + D(3)) 600 mg(1,500mg) -200 unit Tablet Active 1 TAB PO Daily November 11, 2017 12:00am Complies with drug therapytake 1 tablet by mouth once daily at mealtimeCalcium + D 600-200 MG-UNIT 1 tablet with food Orally Once a day for 30 day(s) ActiveComment on above:Take 1 tablet by mouth once daily. cefdinir 300 mg oral capsule (6 sources)Cephalosporin AntibacterialStart: 28-26-5968dffq 1 capsule by mouth every twelve hoursCefdinir 300 MG 1 capsule Orally BID for 10 days Sep, ActiveZyrtec (20 sources)Histamine-1 Receptor AntagonistStart: 84-99-8150Kizpmm Refills(s) 0 Start Date: 10/21/23 Status: Ordered Medication Dispense Status: Completed Total Allowed Fills: 1 Fills Dispensed: 0Start: 37-76-0747Mmlcjy Refills(s) 0 Start Date: 10/21/23 Status: Ordered Repeat number: 1Start: 61-82-8135Vqbooe Refills(s) 0 Start Date: 10/21/23 Status: OrderedStart: 10-03-2023 End: 57-94-9074owqy 1 capsule by mouth once dailyCetirizine (Zyrtec) 10 mg capsule Active 10 MG PO Daily December 18, 2024 10:17am Complies with drug therapyStart: 11-11-2017 End: 40-39-8669brkk 1 tablet by mouth once dailyCetirizine (Zyrtec) 10 mg Tablet Discontinued 1 TAB PO Daily November 11, 2017 12:00am July 27, 2021 7:16am cholecalciferol 0.125 mg oral capsule (20 sources)Vitamin DStart: 38-65-9467qqup 1 capsule by mouth once daily Cholecalciferol (Vitamin D3) 125 mcg (5,000 unit) capsule Active 125 MCG PO Daily January 28, 2025 12:00am Complies with drug therapyStart: 06-20-2023 End: 73-22-4341pvbm 1 capsule by mouth every weekCholecalciferol (Vitamin D3) 1,250 mcg (50,000 unit) capsule Discontinued 1250 MCG PO every week June 20, 2023 12:00am January 28, 2025 10:40amtake 1 capsule by mouth every weekVitamin D3 1.25 MG (88880 UT) 1 capsule Orally weekly Activeciprofloxacin 500 mg oral tablet (2 sources)Quinolone AntimicrobialStart: 16-06-7710iodi 1 tablet by mouth every twelve hoursCiprofloxacin HCl 500 MG 1 tablet Orally every 12 hrs for 10 day(s) Feb, ActiveclonazePAM 0.5 mg oral tablet (20 sources)BenzodiazepineStart: 28-73-2450xyeb 0.25 mg by mouth once daily at bedtime as neededClonazePAM 0.5 mg Tab 0.25 mg = 0.5 tab(s), Oral, Once a day (at bedtime), PRN Leg cramps, Refills(s) 0 Start Date: 11/24/21 Status: Ordered Medication Dispense Status: Completed Total Allowed Fills: 1 Fills Dispensed: 0 Start: 08-16-2021 End: 41-31-9219rfgp 1 tablet by mouth once daily at bedtime as neededClonazepam 0.5 mg tablet Discontinued 0.5 MG PO Daily at bedtime as needed for Restless Leg(S) 30 30 2 August 31, 2023 2:46pm February 14, 2024 5:48pm Restless legs syndrome Restless legs syndromeStart: 65-39-4133vrni 1 tablet by mouth every twenty-four hoursKlonoPIN 0.5 MG 1 tablet at bedtime Orally Once a day PRN Dec, ActiveComment on above:Take 1 tablet by mouth as needed. For restless leg syndromedocusate sodium 100 mg oral capsule (6 sources)Start: 64-60-7496Idzszhke Sodium (Dulcolax Stool Softener (Dss)) 100 mg capsule Active 300 MG PO Daily September 12, 2024 2:53pm Complies with drug therapyStart: 09-12-2024 End: 82-55-7504ebzt 1 capsule by mouth once dailyDocusate Sodium (Dulcolax Stool Softener (Dss)) 100 mg capsule Discontinued 100 MG PO Daily September 12, 2024 12:00am September 12, 2024 2:54pmDULoxetine 30 mg delayed release oral capsule (18 sources)Serotonin and Norepinephrine Reuptake InhibitorStart: 08-22-2024 End: 52-51-0002vvul 1 capsule by mouth once dailyDuloxetine 30 mg capsule,delayed release(DR/EC) Active 30 MG PO Daily 90 1 October 24, 2024 4:45pm Neuropathy Polyneuropathy, unspecified Complies with drug therapy fludrocortisone acetate 0.1 mg oral tablet (20 sources)Start: 12-15-2023 End: 00-31-0320kozl 2 tablets by mouth once dailyfludrocortisone (FLORINEF) 0.1 mg tablet Indications: Orthostatic lightheadedness Take 2 tablets bymouth once daily. 60 tablet 3 10/27/2024 ActiveStart: 11-05-2022 End: 85-58-3039ehym 1 tablet by mouth once daily in the morningFludrocortisone 0.1 mg tablet Active 0.2 MG PO Every morning February 22, 2024 2:42pm Complies with drug therapyStart: 01-29-2022 End: 14-45-1972llhc 0.5 tablet by mouth once dailyfludrocortisone (FLORINEF) 0.1 mg tablet Indications: Orthostatic lightheadedness Take 0.5 tablets by mouth once daily. 30 tablet 3 01/29/2022 08/03/2023 DiscontinuedStart: 48-78-4647txau 1 tablet by mouth twice dailyfludrocortisone 0.1 mg Tab 0.1 mg = 1 tab(s), Oral, BID, Refills(s) 0 Start Date: 11/24/21 Status: Ordered Medication Dispense Status: Completed Total Allowed Fills: 1 Fills Dispensed: 0Start: 10-30-2021 End: 75-20-3906hsbh 1 tablet by mouth once dailyfludrocortisone (FLORINEF) 0.1 mg tablet Indications: Orthostatic lightheadedness Take 1 tablet by mouth once daily. 30 tablet 3 08/03/2023 ActiveComment on above:Take 1 tablet by mouth once daily.Take 0.5 tablets by mouth once daily.fluticasone propionate 0.05 mg/actuat metered dose nasal spray (20 sources)CorticosteroidStart: 51-36-3634Vfyezejaeus Propionate (Flonase Allergy Relief) 50 mcg/actuation Holly,Suspension Active 1 - 2 SPRAY INTRANASAL Daily at bedtime November 11, 2017 12:00am Complies with drug therapytake 2 spray(s) nasal route twice dailyfluticasone (FLONASE) 50 mcg/actuation nasal spray Use 2 Sprays in each nostril twice daily. Activetake 1 spray(s) nasal route once dailyFluticasone Propionate 50 MCG/ACT 1 spray in each nostril Nasally Once a day Activetake 1 spray(s) nasal route once dailyFluticasone Propionate 50 MCG/ACT 1 spray in each nostril Nasally Once a day ActiveComment on above:Use 2 Sprays in each nostril twice daily.hydrOXYzine hydrochloride 25 mg oral tablet (1 source)AntihistamineStart: 72-40-6243crzb 1 tablet by mouth every twenty-four hourshydrOXYzine HCl 25 MG 1 tablet at bedtime as needed Orally Once a day for 2 days Dec, Activeiv contrast (will be provided with radiology test) (4 sources)Start: 11-02-2023 End: 25-47-6952tboamr 1 dose intravenously onceiv contrast (will be provided with radiology test) MRI Brain Inject, intravenously, once for 1 dose.No IV access, insert saline lock prior to beginning of sedation, infusion, injection of imaging exam.Discontinue saline lock post exam. If Pt. has a central line or IVAD, may access for administration according to line specific nursing protocol.Once exam is complete flush line and de-access according to line specific nursing protocol in the MR contrast administration guidelines link 1 Each 0 11/02/2023 11/03/2023 ActiveStart: 07-26-2023 End: 73-84-6114lqqjxg 1 dose intravenously onceiv contrast (will be provided with radiology test) MRI Brain Inject, intravenously, once for 1 dose.No IV access, insert saline lock prior to beginning of sedation, infusion, injection of imaging exam.Discontinue saline lock post exam. If Pt. has a central line or IVAD, may access for administration according to line specific nursing protocol.Once exam is complete flush line and de-access according to line specific nursing protocol in the MR contrast administration guidelines link 1 Each 0 07/26/2023 07/27/2023 ActiveComment on above:MRI Brain Inject, intravenously, once for 1 dose.No IV access, insert saline lock prior to beginning of sedation, infusion, injection of imaging exam.Discontinue saline lock post exam. If Pt. has a central line or IVAD, may access for administration according to line specific nursing protocol.Once exam is complete flush line and de-access according to line specific nursing protocol in the MR contrast administration guidelines linklinaclotide 0.072 mg oral capsule (1 source)Guanylate Cyclase-C AgonistStart: 88-36-8762Ddkmtyjnamu (Linzess) 72 mcg capsule Active 72 MCG PO Daily 4 0 December 18, 2024 12:00am constipation Samples of 72 mg and 145 mg provided. #4 of each. Complies with drug therapy Claritin (20 sources)Start: 59-40-4123Ozdjdgoa Daily, Refills(s) 0 Start Date: 02/08/23 Status: OrderedStart: 07-27-2021 End: 51-90-7614brto 1 tablet by mouth once dailyLoratadine (Claritin) 10 mg Tablet Discontinued 10 MG PO Daily July 27, 2021 12:00am October 03, 2023 10:25amComment on above:Take 10 mg by mouth once daily.metroNIDAZOLE 500 mg oral tablet (3 sources)Nitroimidazole AntimicrobialStart: 92-92-5473afje 1 tablet by mouth every eight hoursmetroNIDAZOLE 500 MG 1 tablet Orally Three times a day for 10 day(s) Feb, ActiveMulti For Her (20 sources)Multi For Her as directed Orally ActiveMultivitamin preparation (20 sources)MULTIVITAMIN (MULTI-DAY ORAL) Take by mouth once daily. Active MULTIVITAMIN (MULTI-DAY ORAL) Take by mouth once daily. 0 ActiveComment on above:Take by mouth once daily.Multivitamins and Minerals (20 sources)Start: 81-39-0632atgf 1 tablet by mouth once dailyMultivitamins and Minerals 1 tab, Oral, Daily, Refill(s) 0, Prophylaxis Start Date: 06/24/15 Status:Ordered Medication Dispense Status: Completed Total Allowed Fills: 1 Fills Dispensed: 0Start: 03-07-2039kunt 1 tablet by mouth once daily Multivitamins and Minerals 1 tab, Oral, Daily, Refill(s) 0, Prophylaxis Start Date: 06/24/15 Status:Ordered Repeat number: 1Start: 12-06-0570adou 1 tablet by mouth once dailyMultivitamins and Minerals 1 tab, Oral, Daily, Refill(s) 0, Prophylaxis Start Date: 06/24/15 Status:CmpkjwwYw-Qkjckfy-Gvv-Iron Fm-Fa-Vitk (Multi For Her) 18 mg iron-600 mcg-80 mcg Tablet (20 sources)Start: 83-07-1136xpao 1 tablet by mouth once daily Lk-Vetjkxw-Ivb-Iron Fm-Fa-Vitk (Multi For Her) 18 mg iron-600 mcg-80 mcg Tablet Active 1 TAB PO Daily November 11, 2017 12:00am Complies with drug therapyStart: 35-12-1422exjw 1 tablet by mouth once mlcghHi-Ryvkpag-Qez-Iron Fm-Fa-Vitk (Multi For Her) 18 mg iron-600 mcg-80 mcg Tablet Active 1 TAB PO Daily November 10, 2017 11:00pmStart: 13-71-6007jxce 1 tablet by mouth once daily Ud-Jusvvhg-Wnw-Iron Fm-Fa-Vitk (Multi For Her) 18 mg iron-600 mcg-80 mcg Tablet Active 1 TAB PO Daily November 11, 2017 12:00amnebulizer machine (20 sources)Start: 64-22-2980Qpqfq: 35-45-7132chlxyflua machine as directed prn Apr, ActiveNebulizers (9 sources)Start: 47-38-1563Dzlekkyyrp Active 0 .Route June 20, 2023 12:00am As directedStart: 51-72-1547Dmlhobounp Active 0 .ROUTE June 20, 2023 12:00am As directedNebulizers misc (9 sources)Start: 10-07-3162Cmsatwrhtv misc Active 0 .Route June 20, 2023 12:00am As directedStart: 56-52-6161Hixdmhyxfy misc Active 0 .Route June 19, 2023 11:00pm As directedOzempic 0.25 or 0.5 MG/DOSE (20 sources)inject 0.5 mg by subcutaneous injection every weekOzempic 0.25 or 0.5 MG/DOSE 0.5 mg Subcutaneous weekly ActiveOzempic 0.25 or 0.5 MG/DOSE as directed Subcutaneous 0.5 Activepain medication (2 sources)Start: 18-45-1407tusp medication pain medication, Oral, Pain Start Date: 12/07/22 Status: OrderedPlecanatide (Trulance) 3 mg tablet (1 source)Start: 86-48-4707zzwn 1 tablet by mouth once dailyPlecanatide (Trulance) 3 mg tablet Active 3 MG PO Daily September 12, 2024 12:00am sample providedpravastatin sodium 10 mg oral tablet (20 sources)HMG-CoA Reductase InhibitorStart: 02-15-2024 End: 71-85-1071Bldsxtspcoz 10 mg tablet Active 10 MG PO February 22, 2024 1:00am Complies with drug therapyStart: 71-45-4982mhvv 1 tablet by mouth once dailypravastatin 20 mg Tab 20 mg = 1 tab(s), Oral, Daily Start Date: 02/06/24 Status: Ordered MedicationDispense Status: Completed Total Allowed Fills: 1 Fills Dispensed: 0Start: 06-23-2015 End: 47-75-5480ohqk 1 tablet by mouth once dailyPravastatin (Pravachol) 20 mg Tablet Discontinued 1 TAB PO Daily November 11, 2017 12:00am June 07, 2023 11:51amComment on above:Take 1 tablet by mouth daily at bedtime.predniSONE 10 mg oral tablet (7 sources)Start: 45-49-7774pwkj 1 tablet by mouth every twelve hourspredniSONE 10 MG 1 tablet Orally bid for 5 days Jun, Activepregabalin 150 mg oral capsule (20 sources)Start: 65-43-7684mycx 1 capsule by mouth twice dailypregabalin (LYRICA) 150 mg capsule Take 1 capsule by mouth two times a day. 08/21/2024 ActiveStart: 08-03-2024 End: 45-56-8697vxpu 1 capsule by mouth three times dailyPregabalin (Lyrica) 150 mg capsule Active 150 MG PO Three times daily 270 90 1 January 28, 2025 8:39am Restless legs syndrome Restless legs syndrome Complies with drug therapyStart: 05-23-2024 End: 17-94-3600omec 1 capsule by mouth three times dailyPregabalin (Lyrica) 100 mg capsule Discontinued 100 MG PO Three times daily 270 90 0 August 01, 2024 10:55am August 03, 2024 11:01am Restless legs syndrome Restless legs syndrome tamsulosin hydrochloride 0.4 mg oral capsule (8 sources)alpha-Adrenergic Blockertake 1 capsule by mouth every twenty-four hoursTamsulosin HCl 0.4 MG 1 capsule Orally Once a day ActiveTirzepatide (1 source)Start: 31-84-3747Wiamltyuori (Mounjaro) 7.5 mg/0.5 mL pen injector Active 7.5 MG SUBCUT every week January 28, 2025 12:00am Complies with drug therapytirzepatide (MOUNJARO) 10 mg/0.5 mL pen injector (15 sources)Start: 98-97-0687boidih 10 mg by subcutaneous injection every week tirzepatide (MOUNJARO) 10 mg/0.5 mL pen injector Indications: Type 2 diabetes mellitus with stage 3a chronic kidney disease, without long-term current use of insulin (HCC) Inject 10 mg subcutaneouslyone time a week. 2 mL 5 08/29/2024 ActiveStart: 30-14-1524bohppt 10 mg by subcutaneous injection every week tirzepatide (MOUNJARO) 10 mg/0.5 mL pen injector Indications: Type 2 diabetes mellitus with stage 3a chronic kidney disease, without long-term current use of insulin (HCC) Inject 10 mg subcutaneouslyone time a week. 2 mL 5 08/21/2024 ActivetraMADol hydrochloride 50 mg oral tablet (15 sources)Opioid AgonistStart: 96-69-6299xzbd 1 tablet by mouth every six hourstraMADol HCl 50 MG 1 tablet Orally QID for 7 day(s) May, Active Start: 20-45-7914wjvj 1 tablet by mouth every six hourstraMADol HCl 50 MG 1 tablet Orally QID for 7 days Apr, ActiveVitamin D (20 sources)Start: 03-42-9471kxsy 1 dose by mouth every weekVitamin D 50,000 International_Unit, Oral, qWeek, Refills(s) 0, Prophylaxis Start Date: 06/23/15 Status: Ordered Medication Dispense Status: Completed Total Allowed Fills: 1 Fills Dispensed: 0Start: 92-10-2205Fjxekdj D 50,000 International_Unit, Oral, qWeek, Refills(s) 0, Prophylaxis Start Date: 06/23/15 Status: Ordered Repeat number: 1Start: 04-30-8402Frlksyr D 50,000 International_Unit, Oral, qWeek, Refills(s) 0, Prophylaxis Start Date: 06/23/15 Status: OrderedVitamin D2 2000 UNIT (20 sources)Vitamin D2 2000 UNIT Orally Activevortioxetine 10 mg oral tablet (11 sources)Start: 45-34-3631lwqa 1 tablet by mouth once dailyTrintellix 10 mg oral tablet 10 mg = 1 tab(s), Oral, Daily, Refills(s) 0 Start Date: 12/07/21 Status: OrderedStart: 11-27-2021 End: 04-37-2868nfgd 1 tablet by mouth every twenty-four hoursTrintellix 5 MG 1 tablet Orally Once a day for 30 day(s) samples Nov, ActiveStart: 17-27-5534otsw 1 tablet by mouth every twenty-four hoursTrintellix 10 MG 1 tablet Orally Once a day samples Nov, Active Completed/Discontinued Medications MedicationDrug Class(es)DatesSig (Normalized)Sig (Original)acetaminophen 325 mg / HYDROcodone bitartrate 5 mg oral tablet (20 sources)Opioid AgonistStart: 06-17-2023 End: 51-92-4716wnzh 1 tablet by mouth every six hours as needed for pain Hydrocodone-Acetaminophen 5-325 mg tablet Discontinued 1 TAB PO Every 6 hours as needed for pain 2430 0 June 20, 2023 August 31, 2023 2:15pm Dog bite Bitten by dog, initial encounterStart: 72-18-7024tfbs 1-2 tablets by mouth every four to six hours as neededNorco 5-325 MG 1-2 tablet as needed Orally every 4-6 hrs Nov, ActiveStart: 02-25-9181ighx 1-2 tablets by mouth every four to six hours as neededNorco 5-325 MG 1-2 tablet as needed Orally every 4-6 hrs for 7 days Nov, ActiveStart: 11-15-2022 End: 12-86-0526saen 1 tablet by mouth every four to six hours as needed for pain Hydrocodone-Acetaminophen 5-325 mg tablet Discontinued 1 - 2 TAB PO EVERY 4-6 HOURS as needed for pain 50 7 0 November 15, 2022 June 07, 2023 11:51am Postoperative pain of extremity Arthritis ofcarpometacarpal (CMC) joint of thumb Carpal tunnel syndrome Other acute postprocedural pain Pain inunspecified limb Carpal tunnel syndrome, unspecified upper limbStart: 06-08-2021 End: 49-02-1357xjch 1 tablet by mouth every four hours as needed for pain Hydrocodone-Acetaminophen 5-325 mg Tablet Discontinued 1 TAB PO Q4H as needed for Pain 6 5 0 June 08, 2021 July 27, 2021 7:16am Abdominal pain Unspecified abdominal painStart: 06-04-2021 End: 76-67-6784fpfp 1 tablet by mouth twice daily as needed for painHydrocodone- Acetaminophen 5-325 mg tablet Discontinued 1 TAB PO Twice daily as needed for pain 10 50 June 04, 2021 July 27, 2021 7:16am Renal colic Unspecified renal colicStart: 02-16-2021 End: 52-89-9763zata 1 tablet by mouth every four to six hours as needed for pain Hydrocodone-Acetaminophen 5-325 mg tablet Discontinued 1 TAB PO EVERY 4-6 HOURS as needed for pain 7 2 0 February 16, 2021 June 04, 2021 5:25pm Diverticulitistake 1 tablet by mouth every six hoursHYDROcodone-Acetaminophen 5- 325 MG 1 tablet as needed Orally every 6 hrs Activeacetylcholine 10% solution - cchs compounding (3 sources)Start: 03-26-2021 End: 69-21-2937vwfhhmkadgneo 10% solution - cchs compoundingStart: 03-26-2021 acetylcholine 10% solution - cchs compoundingalbuterol 0.83 mg/ml inhalation solution (20 sources)beta2-Adrenergic AgonistStart: 07-26-2024 End: 15-61-6980ckuo 2.5 mg by inhalation three times dailyAlbuterol Sulfate 2.5 mg /3 mL (0.083 %) solution for nebulization Discontinued 2.5 MG INHALATION Th ree times daily 90 2 July 26, 2024 12:17pm July 26, 2024 3:01pmStart: 11-86-7379Fjjveyovy Sulfate 90 mcg/actuation HFA aerosol inhaler Active 1 INH INHALATION Every 6 hours as needed for shortness of breath or wheezing 8.5 2 July 26, 2024 12:00am Complies with drug therapyStart: 06-20-2023 End: 35-19-8153ieqtedkbw (PROVENTIL) 2.5 mg /3 mL (0.083 %) nebulizer solution as needed. 0 06/20/2023 09/13/2023 DiscontinuedStart: 06-20-2023 End: 30-07-9997bwgj 3 mL by inhalation three times daily as neededAlbuterol Sulfate 2.5 mg /3 mL (0.083 %) solution for nebulization Discontinued MG INHALATION 2023 12:00am July 26, 2024 12:18pm FreeTextSi ml prefilled vial Inhalation Three timesa day prn; Note: Source Status: Taking; Provider: Carlin Mckeon RStart: 11-11-2017 End: 79-11-5130hxax 1 dose by inhalation three times daily as neededAlbuterol Sulfate 2.5 mg /3 mL (0.083 %) Solution For Nebulization Discontinued 1 DOSE INHALATION Three times daily as needed for Shortness Of Breath November 11, 2017 12:00am August 28, 2018 1:33pmStart: 11-11-2017 End: 49-85-4046rhew 1 puff(s) by inhalation every four hours as neededAlbuterol Sulfate (Proventil Hfa) 90 mcg/actuation Hfa Aerosol Inhaler Discontinued 2 PUFF INHALATION Q4H as needed for Shortness Of Breath November 11, 2017 12:00am August 28, 2018 1:33pmStart: 62-28-5591fznp 2 puff(s) by inhalation every four hours as neededProventil HFA 108 (90 Base) MCG/ACT 2 puffs as needed Inhalation every 4 hrs prn prn Jun, Not-TakingStart: 21-62-0729Prpyb: 99-63-4808Zkwzjupyn Sulfate (2.5 MG/3ML) 0.083% 3 ml prefilled vial Inhalation Three times a day prn Apr, ActiveStart: 50-29-7096Jaywwfyct Sulfate (2.5 MG/3ML) 0.083% 3 ml prefilled vial Inhalation Three times a day prn Apr, ActiveStart: 75-16-0880Yddydykaf Sulfate (2.5 MG/3ML) 0.083% 3 ml prefilled vial Inhalation Three times a day prn for 30 days Apr, ActiveStart: 04-18-2017 amitriptyline hydrochloride 10 mg oral tablet (20 sources)Tricyclic AntidepressantStart: 11-11-2017 End: 55-41-6820anqw 2 tablets by mouth once daily at bedtimeAmitriptyline 10 mg Tablet Discontinued 2 TAB PO Daily at bedtime November 11, 2017 12:00am June 04, 2021 5:24pmamoxicillin 500 mg oral capsule (6 sources)Penicillin-class AntibacterialStart: 06-23-2023 End: 39-06-7739vcdk 4 capsules by mouth every houramoxicillin (AMOXIL) 500 mg capsule TAKE 4 CAPSULES BY MOUTH ONE HOUR PRIOR TO DENTAL APPOINTMENT. 0 06/23/2023 09/13/2023 Discontinuedamoxicillin 875 mg / clavulanate 125 mg oral tablet (20 sources)Penicillin-class AntibacterialStart: 06-17-2023 End: 59-21-6925ebwc 1 tablet by mouth twice dailyAmoxicillin-Pot Clavulanate 875-125 mg tablet Discontinued 1 TAB PO Twice daily 20 June 23, 2023 4:35pm August 31, 2023 2:14pmStart: 31-10-0166ylye 1 tablet by mouth every twelve hours Amoxicillin-Pot Clavulanate 875-125 MG 1 tablet Orally every 12 hrs for 10 day(s) May, ActiveStart: 02-16-2021 End: 53-06-9976keho 1 tablet by mouth twice dailyAmoxicillin-Pot Clavulanate (Augmentin) 875-125 mg tablet Discontinued 1 TAB PO Twice daily 14 February 16, 2021 1:00am June 08, 2021 12:30pmazithromycin 250 mg oral tablet (20 sources)Macrolide AntimicrobialStart: 06-07-2024 End: 10-45-0029Yzqtgfngdewo (Zithromax) 250 mg tablet Discontinued 0 PO .COMPLEX 6 0 June 11, 2024 3:28pm September 12, 2024 2:32pm For 250 mg dose pack: take 500 mg today (day 1), then 250 mg for 4 days (days 2-5) POStart: 03-01-2024 End: 30-78-6298Mwgedafmgbzn (Zithromax Z-Babak) 250 mg tablet Discontinued 0 PO .COMPLEX 6 0 March 01, 2024 1:00am May 23, 2024 1:40pm For 250 mg dose pack: take 500 mg today (day 1), then 250 mg for 4 days (days 2-5) POStart: 10-03-2023 End: 72-05-7127Dqrkdoufbimf (Zithromax Z-Babak) 250 mg tablet Discontinued 0 PO .COMPLEX 6 0 December 22, 2023 12:00am February 08, 2024 3:44pm For 250 mg dose pack: take 500 mg today (day 1), then 250 mg for 4 days (days 2-5) POStart: 29-67-5903Rjyvurxxz Z-Babak 250 MG as directed Orally Mar, ActiveStart: 94-96-3630Qlevlraxt Z-Babak 250 MG as directed Orally as directed 1 pack Feb, ActiveStart: 56-89-6507Wrbtfrnvn Z-Babak 250 MG 2 tablets on the first day, then 1 tablet daily for 4 days Orally Once a dayAugust, ActiveStart: 26-37-9369Kgwtvjgxf Z-Babak 250 MG 2 tablet on the first day, then 1 tablet daily for 4 days Orally Once a day for 5 day(s) August, ActiveStart: 12-25-2020 take 2 tablets by mouth once daily, then take 1 tablet by mouth once daily Zithromax 250 MG 2 tablet on the first day, then 1 tablet daily for 4 days Orally as directed Apr, Activebetamethasone 0.5 mg/ml / clotrimazole 10 mg/ml topical cream (17 sources)Azole Antifungal, CorticosteroidStart: 11-22-2023 End: 42-37-2472Ftedltuaazgo-Betamethasone 1-0.05 % cream Discontinued 1 APPLIC TOPICAL Twice daily as needed December 18, 2024 10:18am January 28, 2025 10:41amStart: 18-76-0373Qfyoj: 26-95-7736Tpdnpjbvlwcy-Betamethasone 1-0.05 % 1 application Externally bid to thumb August, ActiveBlood-Glucose Sensor (DEXCOM G7 SENSOR) inmesh (11 sources)Start: 06-25-2024 End: 51-91-9355Iofaq-Glucose Sensor (DEXCOM G7 SENSOR) nimesh Indications: Type 2 diabetes mellitus with stage 3a chronic kidney disease, without long-term current use of insulin (HCC) , Type 2 diabetes mellitus withperipheral neuropathy (HCC) Change sensor every 10 days. 9 Each 06/25/2024 08/21/2024 DiscontinuedStart: 59-01-2532Cuzdd-Glucose Sensor (DEXCOM G7 SENSOR) nimesh Indications: Type 2 diabetes mellitus with stage 3a chronic kidney disease, without long-term current use of insulin (HCC) , 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athy (HCC) Change sensor every 10 days. 9 Each 06/25/2024 Activecephalexin 500 mg oral capsule (3 sources)Cephalosporin AntibacterialStart: 08-28-2024 End: 48-61-5840losx 1 capsule by mouth twice dailyCephalexin 500 mg capsule Discontinued 500 MG PO Twice daily August 28, 2024 12:00am September 12, 2024 2:32pmcitalopram 20 mg oral tablet (20 sources)Serotonin Reuptake InhibitorStart: 11-11-2017 End: 08-77-1848tbug 1 tablet by mouth once dailyCitalopram (Celexa) 20 mg tablet Discontinued 20 MG PO Daily February 22, 2024 3:38pm 2024 10:08amStart: 06-27-2666ibaa 0.5 tablet by mouth once dailyCitalopram (Celexa) 20 mg Tablet Active 0.5 TAB PO Daily November 11, 2017 12:00amStart: 06-23-2015 End: 44-26-2549xovb 10 mg by mouth once dailyCelexa 10 mg, Oral, Daily, Refills(s) 0, Depression Start Date: 06/23/15 Status: Ordered Medication Dispense Status: Completed Total Allowed Fills: 1 Fills Dispensed: 0Start: 06-23-2015 Celexa Oral, Daily, Refills(s) 0, Depression Start Date: 06/23/15 Status: Ordered Comment on above:Take 10 mg by mouth once daily.Take 20 mg by mouth once daily. diclofenac sodium 0.01 mg/mg topical gel (1 source)Nonsteroidal Anti-inflammatory DrugStart: 82-53-1248wkgay 2 g topically four times dailydiclofenac (VOLTAREN) 1 % topical gel Apply 2 g to affected area four times daily. 50 g 1 12/30/2022 ActiveComment on above:Apply 2 g to affected area four times daily.doxycycline hyclate 100 mg oral tablet (20 sources)Tetracycline-class DrugStart: 11-15-2022 End: 12-91-1005zlpy 1 tablet by mouth twice dailyDoxycycline Hyclate 100 mg tablet Discontinued 100 MG PO Twice daily 10 5 0 November 15, 2022 12:00am June 07, 2023 11:50amempagliflozin 10 mg oral tablet (20 sources)Sodium-Glucose Cotransporter 2 InhibitorStart: 11-11-2017 End: 76-81-9522uzdj 1 tablet by mouth once dailyEmpagliflozin (Jardiance) 10 mg Tablet Discontinued 1 TAB PO Daily November 11, 2017 12:00am June 08, 2018 3:58pmergocalciferol 1.25 mg oral capsule (20 sources)Provitamin D2 CompoundStart: 11-11-2017 End: 34-24-3772dskf 1 tablet by mouth every weekErgocalciferol (Vitamin D2) (Vitamin D2) 50,000 unit Capsule Discontinued 1 TAB PO every week November 11, 2017 12:00am June 20, 2023 3:03pm On Fridays End: 55-48-1391gjhrnjpichroot, vitamin D2, 50 mcg (2,000 unit) cap Take by mouth. 0 10/23/2021 Discontinued (Discontinued by Patient)Comment on above:TAKE 1 CAPSULE ONE TIME WEEKLYTake by mouth.esomeprazole 20 mg delayed release oral capsule (20 sources)Proton Pump InhibitorStart: 06-04-2021 End: 85-69-7983olle 1 capsule by mouth once dailyEsomeprazole Magnesium (Nexium) 40 mg Capsule,Delayed Release(Dr/Ec) Discontinued 40 MG PO Daily June 04, 2021 1:00am June 20, 2023 3:02pmStart: 11-10-2018 End: 25-00-5836sxka 1 capsule by mouth once dailyEsomeprazole Magnesium 20 mg capsule,delayed release(DR/EC) Discontinued 20 MG PO Daily June 12:00am May 23, 2024 1:41pmComment on above:Take 1 capsule by mouth DAILY (6 AM).30 actuat fluticasone furoate 0.1 mg/actuat / umeclidinium 0.0625 mg/actuat / vilanterol 0.025 mg/actuat dry powder inhaler (20 sources)Anticholinergic, Corticosteroid, beta2-Adrenergic AgonistStart: 06-64-7743ybrs 1 puff(s) by inhalation once dailyTrelegy Ellipta 100-62.5-25 MCG/ACT 1 puff Inhalation Once a day sample May, Not-TakingStart: 28-36-0265pwiaziwusz 300 mg oral capsule (20 sources)Anti-epileptic AgentStart: 08-31-2023 End: 70-37-9140qcch 1 capsule by mouth in the morning, then take 1 capsule by mouth in the evening, then take 3 capsules by mouth at bedtimeGabapentin 300 mg capsule Discontinued 300 MG PO As Directed 450 1 December 22, 2023 11:42am February 22, 2024 2:44pm 1 am, 1 in the evening and 3 at bedtimeStart: 08-31-2023 End: 88-53-7047Wgchgkfrgc 300 mg capsule Discontinued 0 PO As Directed February 22, 2024 2:42pm May 23, 2024 1:41pm 1 qam, 1 @ noon, 3 qhs orally as directed; 1 am, 1 in the evening and 3 at bedtimeStart: 07-29-2023 End: 98-93-1239mjpi 1 capsule by mouth twice daily, then take 3 capsules by mouth once daily at bedtimegabapentin (NEURONTIN) 300 mg capsule Take 1 capsule by mouth two times a day AND 3 capsules daily at bedtime. Do all this for 30 days. 150 capsule 0 07/29/2023 ActiveStart: 06-20-2023 End: 74-80-7668xkqn 900 mg by mouth once daily at bedtimeGabapentin Discontinued 900 MG PO Daily at bedtime June 20, 2023 3:07pm August 31, 2023 2:17pmStart: 11-05-2014 End: 26-04-5485zafd 3 tablets by mouth once daily at bedtimegabapentin See Instructions, 300mg qam, q noon, 3 tabs 300 mg Oral at bedtime, Refills(s) 0, Pain Start Date: 06/23/15 Status: Ordered Medication Dispense Status: Completed Total Allowed Fills: 1 Fills Dispensed: 0Start: 11-05-2014 End: 51-90-8228khul 1 capsule by mouth once daily at bedtimeGabapentin 300 mg capsule Discontinued 300 MG PO Daily at bedtime June 07, 2023 11:50am 2023 3:09pmComment on above:TAKE 3 CAPSULES EVERY DAY AT BEDTIMETAKE 3 CAPSULES DAILY AT BEDTIMETake 1 capsule by mouth two times a day AND 3 capsules daily at bedtime. Do all this for 30 days.glyBURIDE 5 mg oral tablet (20 sources)SulfonylureaStart: 06-08-2018 End: 81-27-5437grir 1 tablet by mouth once dailyGlyburide 5 mg Tablet Discontinued 1 TAB PO Daily June 08, 2018 1:00am August 28, 2018 1:35pm homatropine methylbromide 0.3 mg/ml / HYDROcodone bitartrate 1 mg/ml oral solution (20 sources)Opioid Agonist, Cholinergic Muscarinic AgonistStart: 05-30-2024 End: 02-75-3548Wmeqssqsodh-Homatropine (Hycodan) 5-1.5 mg/5 mL (5 mL) syrup Discontinued 5 ML PO EVERY 4-6 HOURS as needed for cough 120 7 0 June 07, 2024 September 12, 2024 2:35pm Influenza due to influenza virus, type A, humanStart: 95-87-4886RTEGErkinpy Bit-Homatrop MBr 5-1.5 MG/5ML 5 mL as needed Orally every 6 hrs prn Feb, ActiveStart: 73-67-1154LBTSRkykygd Bit-Homatrop MBr 5- 1.5 MG/5ML 5 mL as needed Orally BID PRN Apr, Not-TakingStart: 57-06-2918Atppj: 45-30-7643VQQGErorozl-Homatropine 5-1.5 MG/5ML 5 mL Orally every 6 hrs prn Dec, ActiveStart: 73-62-4859nhvi 5 mL by mouth every six hours as neededHycodan Syrup 5mg/1.5 mg 5ml po q 6 hrs prn PRN Dec, Activehyaluronate (20 sources)Start: 43-26-2029Utije: 68-66-2897Oudwohig May, 2 mLStart: 06-11-6796Xykwu: 27-38-2950Xgxtawnj May, 2 mLStart: 86-33-5672Uujhc: 39-06-7009Pxuptcuu May, 2 mLKetorolac (20 sources)Nonsteroidal Anti-inflammatory Drug, Cyclooxygenase InhibitorStart: 28-66-0603Zjqrl: 12-58-2962Cigdyxc per 15 mg Nov,Start: 18-86-3636Ckiha: 95-07-9303Qauczew per 15 mg Feb, 2 mLStart: 54-45-4653Rqyzq: 02-27-2013 Toradol per 15 mg Feb, 2 mLStart: 20-02-3414Totpt: 58-51-5064Gyuxtww per 15 mg Feb, 2 mLStart: 92-32-5652Eexxn: 09-68-6706Yttonwi per 15 mg Jan, 2 mLlidocaine 0.05 mg/mg medicated patch (20 sources)Antiarrhythmic, Amide Local AnestheticStart: 06-20-2023 End: 14-71-0183dvbax 1 dose topically once dailyLidocaine (Lidoderm) 5 % adhesive patch,medicated Discontinued 1 PATCH TOPICAL Daily June 20, 2023 12:00am August 31, 2023 2:15pm leave on most painful area for up to 12 hrsStart: 80-70-2407Scgalktf 5 % 1 patch (may cut to size) remove after 12 hours Externally Once a day Jan, Ansedo28 hr metFORMIN hydrochloride 500 mg extended release oral tablet (20 sources)BiguanideStart: 04-22-0010vfqWLFVQW ER (GLUCOPHAGE XR) 500 mg 24 hr tablet Indications: Well controlled type 2 diabetes mellitus with neurological manifestations (HCC) Take 1 tab twice daily with meals 180 tablet 3 04/21/2022 ActiveStart: 52-48-7565uecMQSUOB ER (GLUCOPHAGE XR) 500 mg 24 hr tablet Indications: Well controlled type 2 diabetes mellitus with neurological manifestations (HCC) Take 1 tab twice daily with meals 180 tablet 3 05/07/2021 ActiveStart: 06-23-2015 End: 80-32-1495mwtg 1 tablet by mouth twice dailyMetformin 500 mg Tablet Discontinued 1 TAB PO Twice daily November 11, 2017 12:00am November 05, 2022 8 :30amComment on above:Take 1 tab twice daily with mealsmethylPREDNISolone 4 mg oral tablet (20 sources)CorticosteroidStart: 06-07-2024 End: 31-36-4799Vrkqpoexgcgvgaqhtu 4 mg tablets,dose pack Discontinued 0 PO per package directions June 11, 2024 3:29pm September 12, 2024 2:35pm PO PER PKG DIRStart: 03-01-2024 End: 59-61-6927piht 1 tablet by mouth onceMethylprednisolone (Medrol (Babak)) 4 mg tablets,dose pack Discontinued 0 PO per package directions March 01, 2024 1:00am May 23, 2024 1:43pm PO PER PKG DIRStart: 12-22-2023 End: 76-76-2228kmyn 1 tablet by mouth onceMethylprednisolone (Medrol (Babak)) 4 mg tablets,dose pack Discontinued 0 PO per package directions December 22, 2023 12:00am February 08, 2024 3:44pm PO PER PKG DIRStart: 11-22-2023 End: 24-03-0285Qrlsyigdwhsgoayzag 4 mg tablets,dose pack Discontinued 0 PO per package directions November 22, 2023 12:00am December 22, 2023 11:33am PO PER PKG DIRStart: 11-22-2023 End: 98-17-8896Hafscxgyqoblfkbfml Discontinued 0 PO per package directions November 22, 2023 12:00am December 22, 2023 11:33am PO PER PKG DIRStart: 48-92-5874Ekdiydnmpncljdtqca Active 0 PO per package directions November 22, 2023 12:00am PO PER PKG DIRStart: 06-28-2023 End: 16-20-3427pisw 1 tablet by mouth onceMethylprednisolone (Medrol (Babak)) 4 mg tablets,dose pack Discontinued 0 PO per package directions June 28, 2023 12:00am August 31, 2023 2:15pm PO PER PKG DIRStart: 98-62-7143Lhjlxk 4 MG as directed Orally Mar, ActiveStart: 55-68-4653ltrscqGLRHXXWudhbu 4 MG as directed Orally as directed 1 pack Feb, ActiveStart: 08-27-2022 methylPREDNISolone 4 MG as directed Orally August, ActiveStart: 09-01-2021 Medrol 4 MG as directed Orally August, ActiveStart: 96-58-0605Aupqmy 4 MG as directed Orally Apr, ActiveStart: 11-11-2017 End: 55-02-5271Eiwogqhnqpthilqxcm 4 mg tablets,dose pack Discontinued 1 TAB PO As Directed November 11, 2017 12:00am June 08, 2018 3:58pmStart: 11-11-2017 End: 57-31-2148Edlbabkibhnhkexfez Discontinued 1 TAB PO As Directed November 10, 2017 11:00pm June 08, 2018 2:58pmStart: 11-11-2017 End: 62-53-6747Hxdqnmgowqupuhucqr Discontinued 1 TAB PO As Directed November 11, 2017 12:00am June 08, 2018 3:58pmnateglinide 60 mg oral tablet (20 sources)GlinideStart: 01-19-2024 End: 69-04-5656tsfc 1 tablet by mouth three times daily before mealtime nateglinide (STARLIX) 60 mg tablet Take 1 tablet by mouth three times a day before meals for 4 days. Start after your steroid injection. 12 tablet 06/25/2024 08/21/2024 Discontinuedondansetron 4 mg oral tablet (20 sources)Serotonin-3 Receptor AntagonistStart: 06-04-2021 End: 99-63-8321reim 1 tablet by mouth twice daily as needed for nausea and vomitingOndansetron Hcl 4 mg tablet Discontinued 4 MG PO Twice daily as needed for nausea and vomiting 20 50 June 04, 2021 1:00am July 27, 2021 7:16am Start: 02-16-2021 End: 98-87-2486Cqhwjrqrzmv Hcl (Zofran) 4 mg tablet Discontinued 4 MG PO every 6 to 8 hours as needed for nausea and vomiting 10 0 February 16, 2021 1:00am June 04, 2021 5:25pmoseltamivir 75 mg oral capsule (4 sources)Neuraminidase InhibitorStart: 05-30-2024 End: 12-81-4293hdzp 1 capsule by mouth twice dailyOseltamivir (Tamiflu) 75 mg capsule Discontinued 75 MG PO Twice daily 10 5 0 May 30, 2024 1:00am September 12, 2024 2:35pmplecanatide 3 mg oral tablet (2 sources)Start: 09-12-2024 End: 21-03-5300qclj 1 tablet by mouth once dailyPlecanatide (Trulance) 3 mg tablet Discontinued 3 MG PO Daily 3 0 September 12, 2024 12:00am December 18, 2024 10:19am sample providedpolyethylene glycol 3350 80808 mg powder for oral solution (20 sources)Osmotic LaxativeMiraLax 17 GM 1 packet mixed with 8 ounces of fluid Orally Once a day PRN Not-Taking/PRNprednisoLONE acetate 10 mg/ml ophthalmic suspension (14 sources)CorticosteroidStart: 10-03-2023 End: 58-16-3683Lxwsfaqdoxvy Acetate 1 % drops,suspension Discontinued DROPS OPHTHALMIC October 03, 2023 12:00am February 22, 2024 2:41pmStart: 10-03-2023 Prednisolone Acetate Active DROPS OPHTHALMIC October 03, 2023 12:00amrosuvastatin calcium 5 mg oral tablet (20 sources)HMG-CoA Reductase InhibitorStart: 06-07-2023 End: 82-20-0174Zrthduspzkvp 5 mg tablet Discontinued 5 MG PO June 07, 2023 1:00am February 22, 2024 2:39pmStart: 01-31-2023 End: 88-03-5662Lhkhexajoris 5 mg tablet Discontinued 5 MG PO June 07, 2023 1:00am February 22, 2024 2:39pmStart: 65-33-8775xxhm 1 tablet by mouth once daily at bedtimerosuvastatin (CRESTOR) 5 mg tablet Take 1 tablet by mouth daily at bedtime. 90 tablet 1 12/23/2022 ActiveComment on above:Take 1 tablet by mouth daily at bedtime.0.25 mg, 0.5 mg dose 1.5 ml semaglutide 1.34 mg/ml pen injector (20 sources)Start: 75-04-1437pbytkefhtil (OZEMPIC) 0.25 mg or 0.5 mg(2 mg/1.5 mL) pen Indications: Well controlled type 2 diabetes mellitus with neurological manifestations (HCC) ITake 0.5 mg q weekly 4.5 mL 3 04/21/2022 ActiveStart: 85-81-5671Mnjcrpa 2 mg/1.5 mL (0.25 mg or 0.5 mg dose) subcutaneous solution 0.25 mg, SubCutaneous, qWeek, Refill(s) 0 Start Date: 06/15/21 Status: Ordered Start: 11-92-6492fxbtievipyu (OZEMPIC) 0.25 mg or 0.5 mg(2 mg/1.5 mL) pen injector Indications: Well controlled type2 diabetes mellitus with neurological manifestations (HCC) ITake 0.5 mg q weekly 4.5 mL 3 05/21/2021 ActiveStart: 08-28-2018 End: 43-65-4362Tldwcnzlpsq (Ozempic) 0.25 mg or 0.5 mg(2 mg/1.5 mL) pen injector Discontinued 0.25 ML SUBCUT As Directed August 28, 2018 12:00am June 04, 2021 5:23pm Weekly on SaturdaysComment on above:ITake 0.5 mg q weeklySemaglutide (20 sources)Start: 12-22-2023 End: 65-45-9106Zmtglcdxgox (Ozempic) 1 mg/dose (4 mg/3 mL) pen injector Discontinued MG SUBCUT December 22, 2023 12:00am May 23, 2024 1:43pm Start: 12-22-2023 End: 89-25-5130Uqjmzzxaxon (Ozempic) 1 mg/dose (4 mg/3 mL) pen injector Discontinued MG SUBCUT December 21, 2023 11:00pm May 23, 2024 12:43pm Start: 91-71-7259Dcmsmfmyyza (Ozempic) 1 mg/dose (4 mg/3 mL) pen injector Active MG SUBCUT December 21, 2023 11:00pmStart: 54-04-3244Lxblftxtreo (Ozempic) 1 mg/dose (4 mg/3 mL) pen injector Active MG SUBCUT December 22, 2023 12:00am Start: 06-04-2021 End: 08-35-3488igorik 1 mg by subcutaneous injection every weekSemaglutide (Ozempic) 1 mg/dose (4 mg/3 mL) Pen Injector Discontinued 0.5 MG SUBCUT every week June 04, 2021 12:00am June 20, 2023 2:02pm mondaystart: 06-04-2021 End: 25-81-2597ckpemo 1 mg by subcutaneous injection every weekSemaglutide (Ozempic) 1 mg/dose (4 mg/3 mL) Pen Injector Discontinued 0.5 MG SUBCUT every week June 04, 2021 1:00am June 20, 2023 3:02pm mondaystart: 06-04-2021 inject 1 mg by subcutaneous injection every weekSemaglutide (Ozempic) 1 mg/dose (4 mg/3 mL) Pen Injector Active 0.5 MG SUBCUT every week June 04, 2021 12:00am mondaystart: 83-82-0270jwsctn 1 mg by subcutaneous injection every week Semaglutide (Ozempic) 1 mg/dose (4 mg/3 mL) Pen Injector Active 0.5 MG SUBCUT every week June 04, 2021 1:00am mondaystart: 30-57-5500amwaia 1 mg by subcutaneous injection every weekSemaglutide (Ozempic) 1 mg/dose (4 mg/3 mL) Pen Injector Active 0.5 MG SUBCUT every week June 04, 2021 12:00amStart: 91-12-3344bappkg 1 mg by subcutaneous injection every weekSemaglutide (Ozempic) 1 mg/dose (4 mg/3 mL) Pen Injector Active 0.5 MG SUBCUT every week June 042021 1:00amSemaglutide (20 sources)Start: 08-31-2023 End: 31-64-9480Qnccqjcginh (Ozempic) 0.25 mg or 0.5 mg (2 mg/3 mL) pen injector Discontinued 1 MG SUBCUT August 1:14pm December 22, 2023 10:33amStart: 08-31-2023 End: 99-71-8082Rheywbjwwpp (Ozempic) 0.25 mg or 0.5 mg (2 mg/3 mL) pen injector Discontinued 1 MG SUBCUT August 2:14pm December 22, 2023 11:33amStart: 97-71-7951Fafhopevyby (Ozempic) 0.25 mg or 0.5 mg (2 mg/3 mL) pen injector Active 1 MG SUBCUT August 31, 2023 2:14pmStart: 06-20-2023 End: 57-47-0593Lsotdzpfbsu (Ozempic) 0.25 mg or 0.5 mg (2 mg/3 mL) pen injector Discontinued MG SUBCUT June 11:00pm August 31, 2023 1:17pmStart: 06-20-2023 End: 89-38-2698Eqqsgnrgrje (Ozempic) 0.25 mg or 0.5 mg (2 mg/3 mL) pen injector Discontinued MG SUBCUT June 12:00am August 31, 2023 2:17pmStart: 60-75-2842Njtozhfrqmi (Ozempic) 0.25 mg or 0.5 mg (2 mg/3 mL) pen injector Active MG SUBCUT June 20, 2023 12:00amsemaglutide (OZEMPIC) 0.25 mg or 0.5 mg (2 mg/3 mL) pen (5 sources)Start: 04-14-2023 End: 29-12-4785zmoabq 0.5 mg by subcutaneous injection every weeksemaglutide (OZEMPIC) 0.25 mg or 0.5 mg (2 mg/3 mL) pen Inject 0.5 mg subcutaneously one time a week. 9 mL 3 04/14/2023 06/23/2023 DiscontinuedStart: 38-50-1983pqagux 0.5 mg by subcutaneous injection every weeksemaglutide (OZEMPIC) 0.25 mg or 0.5 mg (2 mg/3 mL) pen Inject 0.5 mg subcutaneously one time a week. 9 mL 3 04/14/2023 ActiveStart: 94-09-8734dxtmau 0.5 mg by subcutaneous injection every weeksemaglutide (OZEMPIC) 0.25 mg or 0.5 mg (2 mg/3 mL) pen Inject 0.5 mg subcutaneously one time a week. 9 mL 3 12/23/2022 ActiveComment on above:Inject 0.5 mg subcutaneously one time a week.semaglutide (OZEMPIC) 1 mg/dose (4 mg/3 mL) pen (20 sources)Start: 01-19-2024 End: 70-99-9116lfmyxm 1 mg by subcutaneous injection every weeksemaglutide (OZEMPIC) 1 mg/dose (4 mg/3 mL) pen Inject 1 mg subcutaneously one time a week. 6 mL 3 01/19/2024 05/01/2024 DiscontinuedStart: 69-21-2206fzlxub 1 mg by subcutaneous injection every weeksemaglutide (OZEMPIC) 1 mg/dose (4 mg/3 mL) pen Inject 1 mg subcutaneously one time a week. 6 mL 3 01/19/2024 ActiveStart: 10-26-2023 End: 81-07-0350usjnok 1 mg by subcutaneous injection every weeksemaglutide (OZEMPIC) 1 mg/dose (4 mg/3 mL) pen Inject 1 mg subcutaneously one time a week. 6 mL 3 10/26/2023 01/19/2024 DiscontinuedStart: 49-04-1177uhbkwy 1 mg by subcutaneous injection every weeksemaglutide (OZEMPIC) 1 mg/dose (4 mg/3 mL) pen Inject 1 mg subcutaneously one time a week. 6 mL 3 10/26/2023 ActiveStart: 06-23-2023 End: 06-66-8275nwcllv 1 mg by subcutaneous injection every weeksemaglutide (OZEMPIC) 1 mg/dose (4 mg/3 mL) pen Inject 1 mg subcutaneously one time a week. 6 mL 3 06/23/2023 10/26/2023 DiscontinuedStart: 80-37-0272dcmlri 1 mg by subcutaneous injection every weeksemaglutide (OZEMPIC) 1 mg/dose (4 mg/3 mL) pen Inject 1 mg subcutaneously one time a week. 6 mL 3 06/23/2023 ActiveComment on above:Inject 1 mg subcutaneously one time a week.Tirzepatide (6 sources)Start: 05-23-2024 End: 73-87-9707Ixlloyylimj (Mounjaro) 5 mg/0.5 mL pen injector Discontinued 5 MG SUBCUT every week May 23, 2024 1:00am September 12, 2024 2:36pmStart: 78-44-1983Livtfiynvpr (Mounjaro) 5 mg/0.5 mL pen injector Active 5 MG SUBCUT every week May 23, 2024 1:00amStart: 63-76-7999Wgsjzdiypmh (Mounjaro) 5 mg/0.5 mL pen injector Active 5 MG SUBCUT every week May 23, 2024 12:00am Tirzepatide (3 sources)Start: 09-12-2024 End: 98-97-3908Eviffjbfnxi (Mounjaro) 10 mg/0.5 mL pen injector Discontinued 10 MG SUBCUT every week September 12, 2024 12:00am January 28, 2025 10:42amStart: 36-75-7840Fyozbusrhqb (Mounjaro) 10 mg/0.5 mL pen injector Active 10 MG SUBCUT every week September 12, 2024 12:00am Complies with drug therapyStart: 09-12-2024 Tirzepatide (Mounjaro) 10 mg/0.5 mL pen injector Active 10 MG SUBCUT every week September 12, 2024 12:00amtirzepatide (MOUNJARO) 5 mg/0.5 mL pen injector (16 sources)Start: 05-01-2024 End: 60-29-7094iouvty 5 mg by subcutaneous injection every weektirzepatide (MOUNJARO) 5 mg/0.5 mL pen injector Indications: Type 2 diabetes mellitus with stage 3achronic kidney disease, without long-term current use of insulin (HCC) Inject 5 mg subcutaneously one time a week. 6 mL 05/01/2024 06/25/2024 DiscontinuedStart: 05-01-2024 End: 99-38-8683hhohul 5 mg by subcutaneous injection every weektirzepatide (MOUNJARO) 5 mg/0.5 mL pen injector Indications: Type 2 diabetes mellitus with stage 3achronic kidney disease, without long-term current use of insulin (HCC) Inject 5 mg subcutaneously one time a week. 6 mL 05/01/2024 07/30/2024 Active tirzepatide (MOUNJARO) 7.5 mg/0.5 mL pen injector (11 sources)Start: 06-25-2024 End: 14-20-0151pxzrcmswozw (MOUNJARO) 7.5 mg/0.5 mL pen injector Indications: Type 2 diabetes mellitus with stage 3a chronic kidney disease, without long-term current use of insulin (HCC) , Type 2 diabetes mellituswith peripheral neuropathy (HCC) Inject 7.5 mg subcutaneously one time a week. 2 mL 2 06/25/2024 08/21/2024 Discontinued (Dosage adjustment)Start: 06-25-2024 End: 49-21-6294yytzaubwmeo (MOUNJARO) 7.5 mg/0.5 mL pen injector Indications: Type 2 diabetes mellitus with stage 3a chronic kidney disease, without long-term current use of insulin (HCC) , Type 2 diabetes mellituswith peripheral neuropathy (HCC) Inject 7.5 mg subcutaneously one time a week. 2 mL 2 06/25/2024 09/23/2024 Activetobramycin 3 mg/ml ophthalmic solution (19 sources)Aminoglycoside AntibacterialStart: 53-23-2297soxqbfyfau (TOBREX) 0.3 % ophthalmic solution Use 1 drop in the right eye as directed. 08/28/2024 Ac tiveStart: 08-28-2024 End: 57-03-6058oaed 0.3 drop(s) into the eye(s) every four hoursTobramycin 0.3 % drops Discontinued 2 DROPS EYE-RIGHT Every 4 hours 5 7 0 September 12, 2024 3:02pm December 18, 2024 10:19amStart: 08-28-2024 End: 19-39-8356aaep 0.3 drop(s) into the eye(s) every four hoursTobramycin 0.3 % drops Active 2 DROPS EYE-RIGHT Every 4 hours 5 7 September 12, 2024 3:02pm triamcinolone acetonide 40 mg/ml injectable suspension (20 sources)CorticosteroidStart: 72-57-6951Gmogzlb-40 Jun, 20 mgStart: 17-79-8608Oapsbyw-40 Nov, 40 mgStart: 49-15-4092Arypw: 69-92-9285Sywiu: 99-56-8068Gnrfple -40 mg Apr, 20 mgStart: 53-06-1081Dssrs: 05-02-2020 Kenalog -40 mg Apr, 40 mgStart: 72-89-4723Ksnno: 04-73-9754Uzvirky -40 mg August, 40 mgStart: 27-45-3466Vksbe: 64-04-0167GJSYRCQ - 10 mg Oct, 40 mgStart: 69-33-2945Zsvhh: 05-51-3592Nijnbcv -40 mg Feb, 40 mg Start: 81-64-0325Vaqoz: 62-26-3566Ugnoubi -40 mg Jan, 40 mg Problems Active Problems Problem ClassificationProblemDateDocumented DateEpisodic/ChronicAbdominal pain (20 sources)Unspecified abdominal pain; Translations: [Left lower quadrant pain] Onset: 06-08-2021 Resolved: 39-93-4553YwnsbjeuWmgmeubj reactions (15 sources)Contact dermatitis; Translations: [Unspecified contact dermatitis, unspecified cause]80-42-2533YfuavzqgOqktpjz disorders (20 sources)Mixed anxiety and depressive disorder; Translations: [Other specified anxiety disorders]Onset: 05-21-2021 Resolved: 929851-92-2478UeleukbKidewe (20 sources)Moderate persistent asthma with (acute) exacerbation; Translations: [Acute exacerbation of moderatepersistent asthma]Onset: 05-04-2021 Resolved: 48-30-6472PtafpzfXcgxnwxm of urinary tract (20 sources)Kidney stone; Translations: [Calculus of kidney]Onset: 06-08-2021 Resolved: 12-52-2767BpuknflsQxkfjap dysrhythmias (20 sources)Postural orthostatic tachycardia syndrome ; Translations: [Other specified cardiac arrhythmias]ChronicChronic kidney disease (1 source)Chronic kidney disease; Translations: [Stage 3a chronic kidney disease (HCC)]Onset: 99-60-9155Jfpdqiduxdh and hemorrhagic disorders (20 sources)Qualitative platelet disorder; Translations: [Qualitative platelet defects]Onset: 646609-16-1024TksdkerAugnblpu mellitus with complications (20 sources)Type 2 diabetes mellitus; Translations: [Uncontrolled type 2 diabetes with neuropathy]Onset: 188665-66-3327QfxjhlyCbqbxcaf mellitus without complication (2 sources)Diabetes mellitus without complication; Translations: [Type 2 diabetes mellitus with stage 3a chronic kidney disease, without long-term current use of insulin (HCC)]Onset: 57-14-9668Lfbacurkk of lipid metabolism (20 sources)Mixed hyperlipidemia; Translations: [Mixed hyperlipidemia]Onset: 191726-80-9138JgpwxhoLoxzbyszoqzzyw and diverticulitis (20 sources)Diverticulitis; Translations: [Diverticulitis of intestine, part unspecified, without perforation or abscess without bleeding]Onset: 05-21-2021 Resolved: 394304-09-2063QwukpylQ Codes: Fall (3 sources)Fall; Translations: [Unspecified fall, initial encounter]Onset: 787175-96-8068JiegkqylG Codes: Natural/environment (18 sources)Dog bite - wound; Translations: [Bitten by dog, initial encounter] 36-20-8956YodvvqgfGxhvqotng hypertension (20 sources)Benign essential hypertension; Translations: [Essential (primary) hypertension]Onset: 315268-65-8106MskpfvcNtsdjkak of lower limb (1 source)Unspecified fracture of left foot, initial encounter for closed fractureEpisodicGenitourinary symptoms and ill-defined conditions (20 sources)Incontinence; Translations: [Mixed incontinence]Onset: 01-12-2022 03-17-9690JvkgoquEdlhumdidgifr symptoms and ill-defined conditions (20 sources)Delay when starting to pass urine; Translations: [Nocturia]Onset: 352913-29-1094VntsmntrIzgbwkklfzok; infection of eye (except that caused by tuberculosis or sexually transmitteddisease) (4 sources)External hordeolum; Translations: [Hordeolum externum unspecified eye, unspecified eyelid]44-84-8670UptnfickCrxdgpefj (4 sources)Influenza due to Influenza A virus; Translations: [Influenza due to other identified influenza virus with other respiratory manifestations] 31-39-6442HmaqqgvuSlgtyfdoyxugz mental health disorders (14 sources)Crying; Translations: [Other symptoms and signs involving emotional state]92-08-3379VxxihfsxWhhfxeepo of unspecified nature or uncertain behavior (1 source)Neoplasm of uncertain behavior, unspecifiedEpisodicNonmalignant breast conditions (1 source)Fibrocystic changes of bilateral breasts; Translations: [Diffuse cystic mastopathy of right breast]51-88-3961KinbuvmPluofxtgpofg breast conditions (5 sources)Pain of breast; Translations: [Mastodynia]EpisodicNutritional deficiencies (20 sources)Vitamin D deficiency; Translations: [Vitamin D deficiency, unspecified]Onset: 616859-61-7576UbmdtxhLayg wounds of extremities (20 sources)Dog bite of hand; Translations: [Open bite of right hand, initial encounter]53-77-2362NxmcygveJjgmbrtsavdrdw (20 sources)Degenerative joint disease of hand; Translations: [Primary osteoarthritis, unspecified hand]Onset: 12-29-2004 Resolved: 909226-11-0409XenmmorMixal acquired deformities (7 sources)Scoliosis deformity of spine; Translations: [Scoliosis, unspecified] 12-56-3142SkvcverNetew acquired deformities (1 source)Scoliosis, unspecified; Translations: [Scoliosis, unspecified scoliosis type, unspecified spinal region]Onset: 96-25-3030PwlsfmxKgjqv acquired deformities (2 sources)Spondylolisthesis; Translations: [Spondylolisthesis, cervical region] 66-59-3988NirschybHwhjo bone disease and musculoskeletal deformities (1 source)Costal chondritis; Translations: [Chondrocostal junction syndrome [Tietze]]65-75-9258FcwsgpfnBpaye circulatory disease (8 sources)Labile blood pressure; Translations: [Other specified symptoms and signs involving the circulatory and respiratory systems]EpisodicOther circulatory disease (20 sources)Low blood pressure; Translations: [Hypotension, unspecified]Episodic Other circulatory disease (3 sources)Hypotension, unspecifiedOnset: 10-27-2021 Resolved: 29-16-5729OagibpdsMmlsa circulatory disease (3 sources)Chronic hypotension; Translations: [Other hypotension]EpisodicOther circulatory disease (3 sources)Other specified symptoms and signs involving the circulatory and respiratory systems; Translations:[Other symptoms involving respiratory system and chest]Onset: 121149-51-2694HxyhvtjfFxhdn circulatory disease (2 sources)Pulmonary congestion ; Translations: [Other specified symptoms and signs involving the circulatory and respiratory systems]63-17-3347CmglivoiDjpgt connective tissue disease (3 sources)Foot pain; Translations: [Pain in unspecified foot]EpisodicOther connective tissue disease (1 source)Pain in left finger(s)EpisodicOther connective tissue disease (1 source)Pain in left footEpisodicOther connective tissue disease (6 sources)Pain in left foot; Translations: [Pain in left foot]Onset: 05-03-2023 75-28-4252RuhdhirxIdlgy connective tissue disease (16 sources)Thigh pain; Translations: [Pain in right thigh]66-90-6199Heesbnvw Other connective tissue disease (4 sources)Neurological symptom; Translations: [Other symptoms and signs involving the nervous system]59-05-5684OmwizeiuGcomc connective tissue disease (3 sources)Abnormal postural reflex; Translations: [Abnormal posture]07-26-2023 EpisodicOther connective tissue disease (15 sources)Pain in right lower limb; Translations: [Pain in right leg] 62-87-6700QlpohbypIekmv connective tissue disease (3 sources)Pain in right leg; Translations: [Pain in limb]31-21-0223Yqmdpxga Other connective tissue disease (2 sources)Bilateral weakness of upper limbs; Translations: [Other symptoms and signs involving the musculoskeletal system]05-47-4101HegwlbxcMindy connective tissue disease (2 sources)Trochanteric bursitis of right hip; Translations: [Trochanteric bursitis, right hip]57-20-3759RxxapqzbFhujw connective tissue disease (2 sources)Pain of right thigh; Translations: [Pain in right thigh]06-20-2023 EpisodicOther diseases of bladder and urethra (16 sources)Urethral -19-0928EdrlmjyzSqvtx diseases of bladder and urethra (1 source)Male urethral stricture; Translations: [Unspecified urethral stricture, male, unspecified site]Onset: 19-52-1056NszplzusRbhtw ear and sense organ disorders (20 sources)Bilateral sensory hearing loss; Translations: [Sensorineural hearing loss, bilateral]Onset: 946879-38-5252XcgfvwrJnoco ear and sense organ disorders (3 sources)Otalgia, right earEpisodicOther ear and sense organ disorders (1 source)Impacted cerumen, unspecified earEpisodicOther ear and sense organ disorders (1 source)Impacted cerumen, right earEpisodicOther ear and sense organ disorders (14 sources)Wax in ear canal; Translations: [Impacted cerumen, left ear] 72-22-5394RjfkkmqkMussu ear and sense organ disorders (4 sources)Impacted cerumen, left ear; Translations: [Impacted cerumen] 22-91-6248RetcggeyRasxf eye disorders (6 sources)Abnormal saccadic eye movement; Translations: [Saccadic eye movements]24-69-0726AiidvavRnsxq eye disorders (5 sources)Abnormal ocular motility; Translations: [Other irregular eye movements]81-90-4575TafsdgwJywob eye disorders (1 source)Saccadic eye movements; Translations: [Abnormal saccadic eye movement] Onset: 07-93-8617CzdaermHpukp eye disorders (1 source)Other irregular eye movements; Translations: [Pursuit movement deficiency]Onset: 12-40-5583NxesylrZybxl eye disorders (4 sources)Cataract extraction status, unspecified eye; Translations: [Cataract extraction status]51-47-6986UwxsitmwTbysb gastrointestinal disorders (20 sources)Constipation; Translations: [Constipation, unspecified]Onset: 552841-34-2691RbilyluyKazjs gastrointestinal disorders (3 sources)Diarrhea, unspecifiedOnset: 10-19-2021 Resolved: 89-67-6053CknxkyziTwtfk gastrointestinal disorders (1 source)Other specified symptoms and signs involving the digestive system and abdomenEpisodicOther gastrointestinal disorders (1 source)Constipation, unspecified; Translations: [Constipation, unspecified] 67-28-2393IgvuxlppQfgot hereditary and degenerative nervous system conditions (20 sources)Restless legs; Translations: [Restless legs syndrome]Onset: 138246-31-6270IzlzxleYttjh hereditary and degenerative nervous system conditions (11 sources)Restless legs syndrome; Translations: [Restless legs syndrome (RLS)] Onset: 08-12-2021 Resolved: 91-68-3343YfxkbinLevqe hereditary and degenerative nervous system conditions (1 source)Resting tremor; Translations: [Other specified forms of tremor]Chronic Other hereditary and degenerative nervous system conditions (1 source)Sympathotonic orthostatic hypotension; Translations: [Multi-system degeneration of the autonomic nervous system]43-39-6222XpmyqtmPuymt hereditary and degenerative nervous system conditions (3 sources)Multisystem degeneration of autonomic nervous system; Translations: [Multi-system degeneration of the autonomic nervous system]90-70-3255Xdpajds Other hereditary and degenerative nervous system conditions (1 source)Multi-system degeneration of the autonomic nervous system; Translations: [Unspecified disorder of autonomic nervous system]09-12-2024 ChronicOther injuries and conditions due to external causes (9 sources)History of fall; Translations: [History of falling]68-89-8255Nacqdtwk Other injuries and conditions due to external causes (3 sources)History of falling; Translations: [History of fall]03-40-1030Lmpkpjlc Other liver diseases (20 sources)Steatosis of liver; Translations: [Fatty (change of) liver, not elsewhere classified]93-36-2796DctxpxmRlfgg liver diseases (1 source)Fatty (change of) liver, not elsewhere classifiedChronicOther liver diseases (10 sources)Elevated liver enzymes level; Translations: [Abnormal levels of other serum enzymes]84-26-4841VvkcxsvsPqhmf liver diseases (3 sources)Abnormal levels of other serum enzymes; Translations: [Other nonspecific abnormal serum enzyme levels]10-93-0213ZvykzzetOgnep lower respiratory disease (1 source)Rib pain; Translations: [Pleurodynia]EpisodicOther lower respiratory disease (17 sources)Persistent cough; Translations: [Persistent cough]EpisodicOther nervous system disorders (20 sources)Carpal tunnel syndrome; Translations: [Carpal tunnel syndrome, unspecified upper limb]Onset: 302675-89-0599DyrekbhTaopu nervous system disorders (20 sources)Chronic pain; Translations: [Other chronic pain]Onset: 05-21-2021 10-85-1720LgjmsadHfguz nervous system disorders (20 sources)Carpal tunnel syndrome of right wrist; Translations: [Carpal tunnel syndrome, right upper limb]12-10-3004LcijiyaKolsy nervous system disorders (20 sources)Carpal tunnel syndrome of left wrist; Translations: [Carpal tunnel syndrome, left upper limb]98-98-6273HnxptfxQtorc nervous system disorders (20 sources)Carpal tunnel syndrome, left upper limb; Translations: [Carpal tunnel syndrome]Onset: 04-29-2021 Resolved: 84-00-3849GizyiccBgimn nervous system disorders (20 sources)Carpal tunnel syndrome, right upper limb; Translations: [Carpal tunnel syndrome]Onset: 04-29-2021 Resolved: 63-76-2722RxbyhkhZeuce nervous system disorders (2 sources)Small fiber neuropathy; Translations: [Polyneuropathy, unspecified] 51-38-4688XgwmgryEdxsz nervous system disorders (5 sources)Neuropathy; Translations: [Polyneuropathy, unspecified]08-22-2024 ChronicOther nervous system disorders (1 source)Polyneuropathy, unspecified; Translations: [Mononeuritis of unspecified site]14-49-2812YbjxffxPuxnf nervous system disorders (4 sources)Skin sensation disturbance; Translations: [Unspecified disturbances of skin sensation]EpisodicOther nervous system disorders (20 sources)Pain in limb; Translations: [Other acute postprocedural pain]Onset: 12-15-2004 Resolved: 537054-54-1778GcxrxmojFmypl nervous system disorders (1 source)Paresthesia; Translations: [Paresthesia of skin]99-17-7152Nffkpvae Other nervous system disorders (7 sources)Impairment of balance; Translations: [Other abnormalities of gait and mobility]17-40-8394WbiuwqfeOrcqc nervous system disorders (1 source)Postoperative pain ; Translations: [Other acute postprocedural pain] 00-54-4858FrjljyopYfxcd nutritional; endocrine; and metabolic disorders (2 sources)Body mass index 25-29 - overweight; Translations: [Overweight] 43-80-7746OnhnwmlqLiflq nutritional; endocrine; and metabolic disorders (2 sources)Overweight in adulthood with body mass index of 25 or more but less than 30; Translations: [Body mass index (BMI) 27.0-27.9, adult]01-04-2024 EpisodicOther nutritional; endocrine; and metabolic disorders (1 source)Overweight; Translations: [Overweight (BMI 25.0-29.9)]Onset: 73-73-4756UzkdvmcfPpooc nutritional; endocrine; and metabolic disorders (1 source)Body mass index (BMI) 28.0-28.9, adult; Translations: [BMI 28.0-28.9,adult]Onset: 60-04-3294PlhymvyqMpwfx nutritional; endocrine; and metabolic disorders (2 sources)Failure to lose weight; Translations: [Other symptoms and signs concerning food and fluid intake]90-42-2338BslgbkimNljoh screening for suspected conditions (not mental disorders or infectious disease) (20 sources)Abnormal findings on diagnostic imaging of breast; Translations: [Nonspecific abnormal findings on radiological and other examination of breast] Onset: 125869-31-6394YkwxsnapVlxsb skin disorders (20 sources)Easy bruising; Translations: [Other skin changes]Onset: 05-21-2021 88-91-6288BfwpcmdhJxyxp upper respiratory disease (20 sources)Allergic rhinitis; Translations: [Allergic rhinitis, unspecified] 67-28-6118XbwutycInkna upper respiratory disease (20 sources)Nasal discharge; Translations: [Other specified disorders of nose and nasal sinuses]EpisodicOther upper respiratory disease (4 sources)Congestion of nasal sinus; Translations: [Nasal congestion]03-01-2024 EpisodicOther upper respiratory disease (5 sources)Hoarse; Translations: [Dysphonia]52-30-1482ErznwwmaPzifk upper respiratory disease (2 sources)Dysphonia; Translations: [Dysphonia]00-97-7132WrxnjamlYeboh upper respiratory infections (20 sources)Maxillary sinusitis; Translations: [Chronic maxillary sinusitis] ChronicOther upper respiratory infections (20 sources)Acute sinusitis; Translations: [Acute sinusitis, unspecified] EpisodicOtitis media and related conditions (5 sources)Unspecified mastoiditis, unspecified earEpisodicResidual codes; unclassified (1 source)Chills (without fever)EpisodicResidual codes; unclassified (8 sources)Other specified postprocedural states; Translations: [Personal history of surgery to other organs]EpisodicResidual codes; unclassified (18 sources)Bilateral lower limb edema; Translations: [Localized edema] 67-81-2876MrjtzultNlnifoqr codes; unclassified (1 source)Family history of breast cancer; Translations: [Family history of malignant neoplasm of breast]92-66-0300DpnhiuwhWcukphpj codes; unclassified (1 source)Family history of malignant neoplasm of ovary; Translations: [Family history of malignant neoplasm of ovary]13-94-9314QhqyvdkdJrpetozogvf; intervertebral disc disorders; other back problems (20 sources)Cervical arthritis; Translations: [Unspecified inflammatory spondylopathy, cervical region]Onset: 692305-19-0830VfypqzpXtedxmieyec; intervertebral disc disorders; other back problems (20 sources)Cervical radiculopathy; Translations: [Radiculopathy, cervical region]Onset: 923301-22-0608ZmkufhkvYtyzqjj (6 sources)Loss of consciousness; Translations: [Syncope and collapse]Episodic Unclassified (1 source)Cough, unspecified; Translations: [Cough, unspecified]Onset: 10-71-7458Kiqnkcpgetty (1 source)Varicose veins of bilateral lower extremities with pain; Translations: [Varicose veins of bilaterallower extremities with pain]Onset: 06-27-2023 Unclassified (1 source)Puncture wound without foreign body of right hand, initial encounter; Translations: [Puncture woundwithout foreign body of right hand, initial encounter]Onset: 03-21-5632Gxllcjkfnsev (1 source)POTS (postural orthostatic tachycardia syndrome); Translations: [POTS (postural orthostatic tachycardia syndrome)]Onset: 02-91-7355Nqcplwh tract infections (12 sources)Postinfective urethral stricture of female; Translations: [Postinfective urethral stricture, not elsewhere classified, female]Onset: 75-34-9411TvqdgeyvPladozpy veins of lower extremity (20 sources)Varicose veins of lower extremity; Translations: [Varicose veins of bilateral lower extremities with pain]86-05-5122Wxmpfqwx Past or Other Problems Problem ClassificationProblemDateDocumented DateEpisodic/ChronicCardiac dysrhythmias (3 sources)Palpitations; Translations: [Palpitations]Onset: 17-37-7236Lsphacpk Conditions associated with dizziness or vertigo (20 sources)Dizziness and giddiness; Translations: [Dizziness]Onset: 10-19-2021 Resolved: 30-65-0673JcgoxvctSuwkadsqml and other anemia (20 sources)Iron deficiency anemia; Translations: [Iron deficiency anemia, unspecified]Onset: 355128-97-9390WtmlzqliHhuerego; including migraine (3 sources)Headache; including migraineMalaise and fatigue (20 sources)Fatigue; Translations: [Other fatigue]Onset: EpisodicOther circulatory disease (20 sources)Orthostatic hypotension; Translations: [Orthostatic hypotension] Onset: 590408-61-8825FoxfxhjgSaatd circulatory disease (2 sources)Orthostatic hypotension; Translations: [Orthostatic hypotension] Onset: 38-38-2078UllnfjvyCaajd connective tissue disease (20 sources)Bursitis of hip; Translations: [Other bursitis of hip, unspecified hip]Onset: 225425-15-8301WbcljsddFlfih connective tissue disease (20 sources)Pain in buttock; Translations: [Myalgia, other site]Onset: 360846-32-0879GzipxtxtMtpyq connective tissue disease (20 sources)Trochanteric bursitis; Translations: [Trochanteric bursitis, right hip]Onset: 330860-46-3283UzoemttdHdart connective tissue disease (2 sources)Pain in left handOnset: 04-29-2021 Resolved: 14-66-1799HcxmnqpdXbrmc connective tissue disease (2 sources)Pain in right handOnset: 04-29-2021 Resolved: 06-60-0954AgrvubxcNlivi connective tissue disease (3 sources)Other symptoms and signs involving the musculoskeletal system; Translations: [Other musculoskeletalsymptoms referable to limbs]Onset: 011243-75-0051GaodpeogUcrva connective tissue disease (1 source)Other symptoms and signs involving the nervous system; Translations: [Other symptoms and signs involving the nervous system]Onset: 59-03-4942Yztczqtn Other connective tissue disease (1 source)Trochanteric bursitis, right hip; Translations: [Trochanteric bursitis of right hip]Onset: 92-30-3515UvgixdkzCftec ear and sense organ disorders (20 sources)Tinnitus of right ear; Translations: [Tinnitus, right ear]Onset: 692559-07-6727NhazpnlbZkvkt inflammatory condition of skin (1 source)Pruritus, unspecifiedOnset: 12-18-2021 Resolved: 07-87-1001BoaxrsotVfkcf liver diseases (20 sources)Aspartate aminotransferase serum level raised; Translations: [Elevated AST (SGOT)]Onset: 965353-59-5813MgcwgbwyEiztz lower respiratory disease (20 sources)Dyspnea on exertion; Translations: [Dyspnea, unspecified]Onset: 257142-96-5605HtcxgylhDnayr lower respiratory disease (20 sources)Cough; Translations: [Cough]Onset: 264891-82-8214HrwmqtqtUgzdn nervous system disorders (20 sources)Lesion of ulnar nerve; Translations: [Lesion of ulnar nerve, unspecified upper limb]Onset: 12-15-2004 Resolved: 158829-18-7392OulrryoGdklj non-traumatic joint disorders (20 sources)Pain in right hip joint; Translations: [Pain in right hip]Onset: 406568-38-0776VbutzcogPmkkz non-traumatic joint disorders (20 sources)Hip pain; Translations: [Pain in right hip]Onset: 03-21-2015 08-69-6867GvtnolnbLfqkv nutritional; endocrine; and metabolic disorders (20 sources)Abnormal weight gain; Translations: [Abnormal weight gain]Onset: 361197-20-2368BvcnzoboGxqqwnqk codes; unclassified (20 sources)Postmenopausal state; Translations: [Asymptomatic menopausal state] Onset: 806494-32-9057EcrzgslnCfqfjzfgxkhn (1 source)Lumbar back pain M54.50Onset: 10-27-2021 Resolved: 23-15-7565Gpkhshndzdeg (4 sources)Cough R05.9Unclassified (1 source)History of COVID-19 Z86.16Unclassified (1 source)Persistent cough R05.3Unclassified (1 source)Acute cough R05.1 Results Test NameValueInterpretationReference RangeFacilityAmbulatory Visit Summaryon 97-19-9499Putgqcxbag Visit SummaryAmbulatory Visit Summary HOLA DOUGLAS :1945 Visit Date:02/12/2025 Ambulatory Visit Instructions Your Diagnosis Postinfective urethral stricture in female Your Care Team Attending Physician - HIRO BRICENO, Ryan Holland Primary Care Physician - ERICH GILLIS DO This Is Your Medications List Contact prescribing physician if questions or concerns calcium carbonate (calcium (as carbonate) 600 mg oral tablet) calcium-vitamin D (Calcium 600+D) cetirizine (Zyrtec) citalopram (Celexa) clonazepam (ClonazePAM 0.5 mg Tab) ergocalciferol (Vitamin D) fludrocortisone (fludrocortisone 0.1 mg Tab) gabapentin multivitamin with minerals (Multivitamins and Minerals) pravastatin (pravastatin 20 mg Tab) tirzepatide (Mounjaro 7.5 mg/0.5 mL subcutaneous solution) Procedures Performed Injection of sacroiliac joint using fluoroscopic guidance (09/19/2023), Injection of sacroiliac joint using fluoroscopic guidance (06/08/2023), Radiofrequency ablation of nerve root of lumbar spine using fluoroscopic guidance (04/20/2023), Injection into facet joint of lumbar spine using fluoroscopic guidance (02/28/2023), Left wrist (11/2022), Injection of sacroiliac joint using fluoroscopic guidance (11/08/2022), Trigger point (08/12/2022), Epidural injection of lumbar spine using fluoroscopic guidance (12/07/2021), Left hip (06/15/2021), UD - Urethral dilatation (03/27/2020), UD - Urethraldilatation (09/01/2018), UD - Urethral dilatation (11/28/2017), Cystoscope (02/07/2017), Carpal tunnel, Closed fracture of left foot, Injection of facet joint using fluoroscopic guidance. Discharge Vitals Temperature (Temporal Artery) 36.5 ???C Heart Rate (Peripheral) 96 Respiratory Rate 16 Blood Pressure 90/65 Height 172 cm Height 68 in Weight 85.2 kg Weight 187.834 lb BMI 28.8 What to do next Scheduled Follow-Up Appointments Tuesday. 2025 10:45 AM EDT With: Ryan LIVE MD Where: [facility] [address] [place] [address]- You Need to Schedule the Following Appointments Follow Up with Ryan LIVE MD, URL When: Where: [address] [place], [place] [address] [address] [address]- Medications What How Much When Instructions Unchanged calcium carbonate (calcium (as carbonate) 600 mg oral tablet) 1 Tablets By Mouth 2 times a day Contact prescribing physician if questions or concerns Unchanged calcium-vitamin D (Calcium 600+D) By Mouth Every day Contact prescribing physician if questions or concerns Unchanged cetirizine (Zyrtec) Contact prescribing physician if questions or concerns Unchanged citalopram (Celexa) 10 Milligram By Mouth Every day Contact prescribing physician if questions or concerns Unchanged clonazepam (ClonazePAM 0.5 mg Tab) 0.5 Tablets By Mouth Once a day (at bedtime) as neededfor Leg cramps Contact prescribing physician if questions or concerns Unchanged ergocalciferol (Vitamin D) 50,000 International unit By Mouth Every week Contact prescribing physician if questions or concerns Unchanged fludrocortisone (fludrocortisone 0.1 mg Tab) 1 Tablets By Mouth 2 times a day Contact prescribing physician if questions or concerns Unchanged gabapentin See instructions 300mg qam, q noon, 3 tabs 300 mg Oral at bedtime Contact prescribing physician if questions or concerns Unchanged multivitamin with minerals (Multivitamins and Minerals) 1 tab By Mouth Every day Contact prescribing physician if questions or concerns Unchanged pravastatin (pravastatin 20 mg Tab) 1 Tablets By Mouth Every day Contact prescribing physician if questions or concerns Unchanged tirzepatide (Mounjaro 7.5 mg/ 0.5 mL subcutaneous solution) 7.5 Milligram Contact prescribing physician if questions or concerns Allergies Avelox (Itching, Burning) Levaquin (Itching, Burning vapor) aspirin (Unknown) Problems Ongoing - Any problem that you are currently receiving treatment for. At risk for falls Mixed incontinence Nocturia Postinfective urethral stricture in female Type 2 diabetes mellitus Historical - Any problem that you are no longer receiving treatment for. Colonoscopy Hysterectomy Lumpectomy of breast Patient Survey You may receive a survey via text or e-mail asking about your office visit. Please share your experience with us by completing your survey. We appreciate your feedback and thank you for choosing us for your care. Education Materials Urethral Dilation Urethral dilation is a procedure to stretch open (dilate) the urethra. The urethra is the tube thatdrains pee (urine) from the bladder out of the body. In females, the urethra opens above the vaginal opening. In males, the urethra opens at the tip of the penis. Urethral dilation is usually done to treat narrowing of the urethra (urethral stricture), which canmake it difficult to pee (urinate). Urethral stric (more content not included)...NormalUnc Health Rexer [facility] HospitalUrology Office/Clinic Noteon 19-07-7557Leuqosp Office/Clinic NoteUrology Office/Clinic Note Chief Complaint IO UD HPI Staff 6 month follow up w/IO UD Previous DX: hesitancy, mixed incontinence, nocturia, postinfective stricture, urgency of urination, weak urinary stream denies abdominal/flank pain, denies dysuria, denies visible blood. History of Present Illness Tests reviewed: I have reviewed the previous health record information and history for this patient from Dr. Live. I have reviewed and verified the staff HPI to be accurate for this encounter. Review of Systems PHQ Score Initial Depression Screen Score: 0 SCORE ROS - Provider Constitutional: denies weight loss, denies hot flashes. Eyes: denies eye problems. Gastrointestinal: denies nausea, denies vomiting. Cardiovascular: denies chest pain or angina. Integumentary: no dryness Musculoskeletal: denies musculoskeletal symptoms. ENMT: denies otolaryngeal symptoms. Respiratory: no shortness of breath. Heme/Lymph: denies easy bleeding tendency, denies easy bruising tendency. Psychiatric: no confusion, no anxiety. Genitourinary: See HPI. Physical Exam Vitals & Measurements T: 36.5 ???C(Temporal Artery) HR: 96(Peripheral) RR: 16 BP: 90/65 HT: 68 in HT: 172 cm WT: 85.2 kg WT: 187.834 lb BMI: 28.8 General Appearance: alert, no distress, well nourished, well developed adult. Procedure Operative Information Anesthesia Type: Local Procedure: Local Urethral Dilation Complications: None Surgical risks, benefits, details of the procedure have been explained to the patient. Full informed consent has been obtained. Intraoperative Information Prepped: Patient is brought back to the endoscopy suite. Patient is placed in modified dorso/lithotomy position. Patient prepped in the usual fashion with Betadine solution. 2% Xylocaine Jelly is placed per Urethra. The Urethra is: Tight shannan at 16 Fr. The Urethra was dilated to: 16-30 Gibraltarian with sounds. Specimens Removed: None Postoperative Information Patient is discharged home. Follow up arranged. Assessment/Plan 1. Postinfective urethral stricture in female (N35.12: Postinfective urethral stricture, not elsewhere classified, female) Prior UDs: 08/21/24, 02/06/24, 07/26/23, 01/12/23, 03/27/20, 09/01/18. Pt unable to provide urine sample today. Follow up 6 mos UD or sooner if needed. Pt understands and agrees with plan. Overall the patient tolerates the urethral dilatation well. She did feel that she needed it again. Tentative plan for repeat with dilatation in about 6 months. Follow-up With When Contact Information HIRO BRICENO, Ryan Holland, URL [address] [address]- Additional Instructions: 6 mos UD Patient Education Urethral Dilation I, Brie Gamez, personally scribed for Dr. Live on 02/12/2025 09:43:54. . Documentation recorded by the scribe, Brie Gamez, accurately reflects the services(s) I performed and decisions made by me. Authenticated by Dr. Live on 02/12/2025 09:46:57. Portions of this record may have been created with voice recognition artificial intelligence software, specifically [employer], [employer] and or [employer]. Substitutions may have occurred due to the inherent limitations of voice recognition and artificial intelligence software. Problem List/Past Medical History Ongoing At risk for falls Mixed incontinence Nocturia Postinfective urethral stricture in female Type 2 diabetes mellitus Historical Colonoscopy Hysterectomy Lumpectomy of breast Procedure/Surgical History Injection of sacroiliac joint using fluoroscopic guidance (09/19/2023), Injection of sacroiliac joint using fluoroscopic guidance (06/08/2023), Radiofrequency ablation of nerve root of lumbar spine using fluoroscopic guidance (04/20/2023), Injection into facet joint of lumbar spine using fluoroscopic guidance (02/28/2023), Left wrist (11/2022), Injection of sacroiliac joint using fluoroscopic guidance (11/08/2022), Trigger point (08/12/2022), Epidural injection of lumbar spine using fluoroscopic guidance (12/07/2021), Left hip (06/15/2021), UD - Urethral dilatation (03/27/2020), UD - Urethraldilatation (09/01/2018), UD - Urethral dilatation (11/28/2017), Cystoscope (02/07/2017), Carpal tunnel, Closed fracture of left foot, Injection of facet joint using fluoroscopic guidance. Medications calcium (as carbonate) 600 mg oral tablet, 600 mg= 1 tab(s), Oral, BID Calcium 600+D, Oral, Daily Celexa, 10 mg, Oral, Daily ClonazePAM 0.5 mg Tab, 0.25 mg= 0.5 tab(s), Oral, Once a day (at bedtime), PRN fludrocortisone 0.1 mg Tab, 0.1 mg= 1 tab(s), Oral, BID gabapentin, See Instructions Mounjaro 7.5 mg/0.5 mL subcutaneous solution, 7.5 mg Multivitamins and Minerals, 1 tab, Oral, Daily pravastatin 20 mg Tab, 20 mg= 1 tab(s), Oral, Daily Vitamin D, 57419 International_Unit, Oral, qWeek Zyrtec Allergies Avelox ( (more content not included)...[facility] Health CenterComment on above:Result Comment: Electronically Signed By: Ryan LIVE MD\.br\Date and Time Signed: 02/12/25 09:47 EST\.br\Electronically Co-Signed By: Brie Gamez\.br\Date and Time Co-Signed: 02/12/25 09:44 Shane [id number] Office Visit (ENDOAV) HOLA DOUGLAS ([id number]) 1945 F Date Time Provider Department 01/18/25 11:00 AM KARL COOK During your visit today, we recorded the following information about you: Pulse Blood pressure Weight 74/minute 119/74 84.5 kg Karl CookHAN 01/18/2025 12:40 PM Signed Endocrinology Follow-up Recording using [employer] software for draft documentation of the visit was discussed with the patient/authorized physician relations representative; all questions welcomed and answered. Patient/authorized physician relations representative agreed to proceed History of Present Illness Hola Douglas is a 79 year old female presents today for follow up of DM Type 2. LV with Dr Oneill 08/21/24- Mounjaro was increased to 10 mg She reports worsening constipation and no weight loss. Had steroid injections in October Had cataract surgery this summer Hola Douglas is a 79-year-old female with a history of type 2 diabetes mellitus and neuropathy, presenting for follow-up on diabetes management and back pain. Type 2 Diabetes Mellitus: - Current medication: Mounjaro 10 mg. - Recent increase to [address] Melgar to aid weight loss; Hola requests reduction due to lack of weight loss and worsening constipation. - Reports severe constipation despite using multiple treatments. - Previously on Ozempic; prefers to continue Mounjaro. - Blood glucose levels in the mornins-170s mg/dL. - Denies hypoglycemic symptoms. - Recent A1c: 6.2%. - No recent changes in diet or exercise. - Recent cataract surgery with follow-up eye exam this summer. Neuropathy: - Current medications: Lyrica and Cymbalta. Back Pain: - Chronic back pain with sciatica radiating to the knee. - Recent steroid injection in October by Dr. Mcnair provided no relief. - Pain limits mobility, including walking and grocery shopping. - Uses Biofreeze for pain management. - Reports waking up every hour after 3 hours of sleep due to pain. - Denies desire for surgery. PMH significant for: PAST MEDICAL HISTORY Diagnosis Date Carpal tunnel syndrome Diverticulosis of colon (without mention of hemorrhage) Hypotension Localized osteoarthrosis not specified whether primary or secondary, hand Mastodynia Other chronic sinusitis Type II or unspecified type diabetes mellitus without mention of complication, uncontrolled Vertigo Current workup Date of Diagnosis: age 61 Last HbA1c: Hemoglobin A1C (%) Date Value 11/28/2024 6.2 07/23/2024 6.4 05/11/2024 6.5 10/06/2023 6.7 05/20/2023 7.0 2021 6.7 10/24/2020 6.7 05/01/2020 6.4 10/18/2019 6.4 04/06/2019 6.3 Hemoglobin A1C (POCT) (%) Date Value 01/19/2024 6.8 Complications Microvascular: neuropathy, CKD stage 3 Macrovascular: none Health Maintenance Topics Topic Date Due Dilated Retinal Exam 07/04/2024 Physical Activity: limited Diet: no specific regimen; eats 3 meals per day SMBG Frequency of Monitoring:daily in the morning BG Values: AM fasting 173 mg/dL 150s typically Hypoglycemia Frequency: denies Current DM Related Medications: Current Medications 01/18/2025 DIABETES THERAPIES Medication Dosage Pharm Subclass tirzepatide (MOUNJARO) 10 mg/0.5 mL pen injector Inject 10 mg subcutaneously one time a week. Antihyperglycemic - Dual GIP and GLP-1 Receptor Agonists CARDIOVASCULAR Medication Dosage Pharm Subclass pravastatin (PRAVACHOL) 10 mg tablet Take 1 tablet by mouth once daily. Antihyperlipidemic - HMG CoA Reductase Inhibitors (statins) OTHER Medication Dosage Pharm Subclass blood sugar diagnostic (TRUE METRIX GLUCOSE TEST STRIP) test strip Use with blood glucose test once daily Medical Supplies and DME - Blood Glucose Tests Blood-Glucose Meter (TRUE METRIX GLUCOSE METER) 1 Each once daily. Medical Supplies and DME - Glucose Monitoring Test Supplies calcium carbonate 600 mg-cholecalciferol 200 units (CALCIUM 600 + D,3,) 600 mg(1,500mg) -200 unit tab Take 1 tablet by mouth once daily. Minerals and Electrolytes - Calcium Replacement/Vitamin D Combinations citalopram (CELEXA) 20 mg tablet Take 1 tablet by mouth once daily. Antidepressant - Selective Serotonin Reuptake Inhibitors (SSRIs) clonazePAM (KLONOPIN) 0.5 mg tablet Take 1 tablet by mouth as needed. For restless leg syndrome Antianxiety Agent - Benzodiazepines DULoxetine (CYMBALTA) 30 mg capsule Take 1 capsule by mouth once daily. Antidepressant - Serotonin-Norepinephrine Reuptake Inhibitors (SNRIs) ergocalciferol 50,000 unit capsule (VITAMIN D2, DRISDOL) TAKE 1 CAPSULE ONE TIME WEEKLY Vitamins - D Derivatives fludrocortisone (FLORINEF) 0.1 mg tablet Take 2 tablets by mouth once daily. Mineralocorticoids fluticasone (FLONASE) 50 mcg/actuation nasal spray Use 2 Sprays in each nostril twice daily. Nasal Corticosteroids lancets (TRUEPLUS LANCETS) 33 gauge Use with blood glucose (more content not included)...NormalSelect Medical Specialty Hospital - TrumbullALBUMIN/CREATININE RATIO, URINEon 19-71-8005Bfxvwfb DL <= 20 mg/L (U) [Mass/Vol]12.7 mg/LNormalSelect Medical Specialty Hospital - TrumbullComment on above:Order Comment: Specimen Type: URINE SPECIMENOrdering Facility: [facility] Address:[address] [place], [place] [address]Performed By: #### UACR ####[facility] LABIA [id number] [place] [address] [place] Albumin/Creatinine (U) [Mass ratio]8 mg/gNormal<30[facility] Comment on above:Order Comment: Specimen Type: URINE SPECIMENOrdering Facility: [facility] Address:[address] [place], [place] [address]Result Comment: Adult Male and Female Nephrotic Criteria: <30 mg/g is considered normal to mildly increased 30-300 mg/g is considered moderately increased >300 mg/g is considered severely increased KDIGO. (2013). KDIGO 2012 Clinical Practice Guideline for the Evaluation and Management of Chronic Kidney Disease. Official Journal of the International Society of Nephrology, 3(1), 1-150.Performed By: #### UACR ####[facility]IA [id number] [place] [id number] [place] AMERICACreatinine (U) [Mass/Vol]166.8 mg/wSKvgipf96.0-300.0 [facility] on above:Order Comment: Specimen Type: URINE SPECIMENOrdering Facility: [facility] Address:[address] [place], [place] [address]Performed By: #### UACR ####[facility] LABCLIA [id number] [address] [address] [place] AMERICACholesterol in LDL Calc [Mass/Vol]Ordered By: Lorraine Oneill on 18-32-4704Xvbdimqlkry in LDL [Mass/Vol]104 mg/dLHigh<100[facility] HospitalComment on above:<100 mg/dL, Optimal 100-129 mg/dL, Near optimal/above optimal 130-159 mg/dL, Borderline high 160-189 mg/dL, High>189 mg/dL, Very highSecondary prevention optimal LDL Cholesterol levels are recom mended to be <70 mg/dLLDL cholesterol is calculated using the Browning-NIH equation.Cholesterol in VLDL Calc [Mass/Vol]Ordered By: Lorraine Oneill on 98-30-2959Gwbwdtmvmqk in VLDL [Mass/Vol]26 mg/dL<30[facility] Memorial HospitalComprehensive metabolic 2000 panelon 01-17-1769Ndonlme [Mass/Vol]4.3 g/dL Normal3.9-4.9CMcKitrick Hospital on above:Order Comment: Specimen Type: BLOOD SPECIMEN Ordering Facility: [facility] Address: [address] [place], [place] [address]Performed By: #### [id number] #### [facility] CLIA [id number] [address] [place], [place] [address]EGI [Catalytic activity/Vol]110 U/STjwthh36-891VeurlkrhdMartins Ferry Hospital on above:Order Comment: Specimen Type: BLOOD SPECIMEN Ordering Facility: [facility] Address: [address] [place], [place] [address]Performed By: #### [id number] #### [facility] CLIA [id number] [address] [place], [place] [address]ZNT [Catalytic activity/Vol]23 U/LNormal7-38[facility] on above:Order Comment: Specimen Type: BLOOD SPECIMEN Ordering Facility: [facility] Address: [address] [place], [place] [address]Performed By: #### [id number] #### [facility] CLIA [id number] [address] [place], [place] [address]Gblcy gap [Moles/Vol]11 mmol/LNormal8-15[facility] on above:Order Comment: Specimen Type: BLOOD SPECIMEN Ordering Facility: [facility] Address: [address] [place], [place] [address]Performed By: #### [id number] #### [facility] CLIA [id number] [address] [place], [place] [address]TAH [Catalytic activity/Vol]27 U/LZuurjy42-72BxfzfiaxgMartins Ferry Hospital on above:Order Comment: Specimen Type: BLOOD SPECIMEN Ordering Facility: [facility] Address: [address] [place], [place] [address]Performed By: #### [id number] #### [facility] CLIA [id number] [address] [place], [place] [address]Htyzsgnok [Mass/Vol]0.5 mg/dLNormal0.2-1.3CMcKitrick Hospital on above:Order Comment: Specimen Type: BLOOD SPECIMEN Ordering Facility: [facility] Address: [address] [place], [place] [address]Performed By: #### [id number] #### [facility] CLIA [id number] [address] [place] [address]Lnossbj [Mass/Vol]9.9 mg/dLNormal8.5-10.2CMcKitrick Hospital on above:Order Comment: Specimen Type: BLOOD SPECIMEN Ordering Facility: [facility] Address: [address] [place], [place] [address]Performed By: #### 60354-6 #### [facility] CLIA [id number] [address] [place], [place] [address]Wurfvxwu [Moles/Vol]105 mmol/VYgecoh16-895YipyenyvvMartins Ferry Hospital on above:Order Comment: Specimen Type: BLOOD SPECIMEN Ordering Facility: [facility] Address: [address] [place], [place] [address]Performed By: #### 09021-8 #### [facility] CLIA [id number] [address] [place], [place] [address]EO4 [Moles/Vol]25 mmol/ACclysb22-53VrondsrunSelect Medical Specialty Hospital - Trumbull Comment on above:Order Comment: Specimen Type: BLOOD SPECIMEN Ordering Facility: [facility] Address: [address] [place], [place] [address]Performed By: #### 30638-4 #### [facility] CLIA [id number] [address] [place], [place] [address]Etxxtuazbs [Mass/Vol]1.24 mg/dLHigh0.58-0.96[facility] - TrumbullComment on above:Order Comment: Specimen Type: BLOOD SPECIMEN Ordering Facility: [facility] Address: [address] [place], [place] [address]Performed By: #### 61864-1 #### [facility] CLIA [id number] [address] [place] [address] 08776wXYCzf SerPlBld CKD-EPI 235448 mL/min/1.73m???Low>=60[facility] - TrumbullComment on above:Order Comment: Specimen Type: BLOOD SPECIMEN Ordering Facility: [facility] Address: [address] [place], [place] [address]Result Comment: Estimated Glomerular Filtration Rate (eGFR) is calculated using the 2020 CKD-EPI cre atinine equation. This equation utilizes serum creatinine, sex, and age as parameters. The creatinine assay has traceable calibration to isotope dilution- mass spectrometry. Refer to KDIGO guidelines for clinical interpretation. In patients with unstable renal function, e.g. those with acute kidney injury, the eGFR may not accurately reflect actual GFR.Performed By: #### 12843-0 #### [facility] CLIA [id number] [address] [place] [address] 67858Pryuhac [Mass/Vol]131 mg/iLQduy30-01IwvigyrxnSelect Medical Specialty Hospital [facility] Comment on above:Order Comment: Specimen Type: BLOOD SPECIMEN Ordering Facility: [facility] Address: [address] [place] [address]Grtxnc Comment: The [place] Diabetes Association (ADA) provides guidance for cutoff values for fasting glucose and random glucose. The ADA defines fasting as no [...] Standards of Medical Care in Diabetes 2016, [place] Diabetes Association. Diabetes Care. 2016.39(Suppl 1).Performed By: #### 52552-2 #### [facility] CLIA [id number] [address] [place], [place] [address]Gaakqdgvk [Moles/Vol]4.3 mmol/LNormal3.7-5.1CMcKitrick Hospital on above:Order Comment: Specimen Type: BLOOD SPECIMEN Ordering Facility: [facility] Address: [address] [place], [place] [address]Performed By: #### 45772-2 #### [facility] CLIA [id number] [address] [place] [address] 32171Ddtutha [Mass/Vol]6.9 g/dLNormal6.3-8.0[facility] on above:Order Comment: Specimen Type: BLOOD SPECIMEN Ordering Facility: [facility] Address: [address] [place], [place] [address]Performed By: #### 98994-9 #### [facility] CLIA [id number] [address] [place] [address] 45187Dpfzza [Moles/Vol]141 mmol/ULcndur360-678BtawotllbMartins Ferry Hospital on above:Order Comment: Specimen Type: BLOOD SPECIMEN Ordering Facility: [facility] Address: [address] [place], [place] [address]Performed By: #### 07116-5 #### [facility] CLIA [id number] [address] [place] [address] 65609Pwol nitrogen [Mass/Vol]17 mg/dLNormal7-21[facility] on above:Order Comment: Specimen Type: BLOOD SPECIMEN Ordering Facility: [facility] Address: [address] [place], [place] [address]Performed By: #### 48918-7 #### [facility] CLIA [id number] [address] [place] [address] 211[address]Llrahisrgj filtration rate [Volume Rate/Area] in Serum, Plasma or Blood by CreatinineOrdered By: Lorraine Oneill on 00-61-0591Tkmgylaunk filtration rate [Volume Rate/Area] in Serum, Plasma or Blood by Ygmmnsjjio52 mL/min/1.73m???Low>=60[facility] HospitalComcaro center on above: Estimated Glomerular Filtration Rate (eGFR) is calculated using the 2020 CKD-EPI creatinine equation. This equation utilizes serum creatinine, sex, and age as parameters. The creatinine assay has traceable calibration to isotope dilution- mass spectrometry. Refer to KDIGO guidelines for clinical interpretation. In patients with unstable renal function, e.g. those with acute kidney injury, the eGFRmay not accurately reflect actual GFR.Glucose mean value [Mass/volume] in Blood Estimated from glycated hemoglobinOrdered By: Lorraine Oneill on 11-28-2024 Average glucose Estimated from glycated hemoglobin (Bld) [Mass/Vol]131 mg/dL [facility] HospitalComment on above:eAG: (Estimated average glucose) is a calculated value from HgbA1c and is physician relations representative of the average blood glucose level in the last 2-3 month period.HbA1c (Bld)on 57-72-1585Rfgoufe glucose Estimated from glycated hemoglobin (Bld) [Mass/Vol]131 mg/dLNormal [facility] on above:Order Comment: Specimen Type: BLOOD SPECIMEN Ordering Facility: [facility] Address: [address] [place], [place] [address]Result Comment: eAG: (Estimated average glucose) is a calculated value from HgbA1c and is physician relations representative of the average blood glucose level in the last 2-3 month period.Performed By: #### 28556-5 #### [facility] CLIA [id number] [address] [place] [address] [place] [address] [place] CVSTYRBLxJ4t (Bld) [Mass fraction] 6.2 %High4.3-5.6CTriHealth Bethesda North HospitalComcaro center on above:Order Comment: Specimen Type: BLOOD SPECIMEN Ordering Facility: [facility] Address: [address] [place], [place] [address]Result Comment: [place] Diabetes Association guidelines indicate that patients with HgbA1c in the range 5.7-6.4% are at increased risk for development of diabetes, and intervention by lifestyle modification may be beneficial. HgbA1c greater or equal to 6.5% is considered diagnostic of diabetes.Performed By: #### 91540-6 #### [facility] CLIA [id number] [address] [place] [address] [place] [address] [place] AMERICAHemoglobin A1c percentage Ordered By: Lorraine Oneill on 91-67-9168WkN1v (Bld) [Mass fraction]6.2 %High 4.3-5.6FSamaritan HospitalComment on above:[place] Diabetes Association guidelines indicate that patients with HgbA1c in the range 5.7-6.4% are at increased risk for development of diabetes, and intervention by lifestyle modification may be beneficial. HgbA1c greater or equal to 6.5% is considered diagnostic of diabetes.Laboratory - Chemistry and Chemistry - challengeOrdered By: Lorraine Oneill on 81-47-3444Zputrkl [Mass/Vol]4.3 g/dL3.9-4.9[facility] HospitalALP [Catalytic activity/Vol]110 U/O10-418OuoslzfgrOhiohealth Grady Memorial HospitalALT [Catalytic activity/Vol]23 U/L7-38[facility] HospitalAST [Catalytic activity/Vol]27 U/U51-61MpiqeqoqzOhiohealth Grady Memorial HospitalBilirubin [Mass/Vol]0.5 mg/dL0.2-1.3FSamaritan Hospital Calcium [Mass/Vol]9.9 mg/dL8.5-10.2FSamaritan HospitalChloride [Moles/Vol]105 mmol/P89-305FvsxezixyOhiohealth Grady Memorial HospitalCholesterol [Mass/Vol]165 mg/dL<200Ohio[facility] Memorial HospitalComment on above:<200 mg/dL, Desirable 200-239 mg/dL, Borderline high>239 mg/dL, HighCholesterol in HDL [Mass/Vol]33 mg/dLLow>39[facility] Memorial HospitalComment on above: 40-59 mg/dL, Acceptable>59 mg/dL, High: Negative risk factor for coronary heart disease<40 mg/dL, Low: Positive risk factor for coronary heart diseaseCO2 [Moles/Vol]25 mmol/V48-02TyohzedafOhiohealth Grady Memorial HospitalCreatinine [Mass/Vol] 1.24 mg/dLHigh0.58-0.96[facility] Memorial HospitalFree T4 [Mass/Vol]1.0 ng/dL0.9-1.7FSamaritan HospitalGlucose [Mass/Vol]131 mg/dLHigh 74-99[facility] Memorial HospitalComment on above:The [place] Diabetes Association (ADA) provides guidance for cutoff values for fasting glucose and random glucose. The ADA defines fasting as no [...] diabetes.Reference: Standardsof Medical Care in Diabetes 2016, [place] Diabetes Association. Diabetes Care. 2016.39(Suppl 1). Potassium [Moles/Vol]4.3 mmol/L3.7-5.1FKindred Hospital Daytonodium [Moles/Vol]141 mmol/K067-485GejbcpsmrOhiohealth Grady Memorial HospitalTriglyceride [Mass/Vol]158 mg/dLHigh<150Ohio[facility] Memorial HospitalComment on above: <150 mg/dL, Normal 150-199 mg/dL, Borderline high 200-499 mg/dL, High>499 mg/dL, Very highTSH Qn5.150 m[IU]/LHigh0.270-4.200[facility] Urea nitrogen [Mass/Vol]17 mg/dL7-21[facility] Memorial HospitalLipid 1996 panelon 89-71-2293Cfhxfafhenl [Mass/Vol]165 mg/dLNormal<200[facility] on above:Order Comment: Specimen Type: BLOOD SPECIMEN Ordering Facility: [facility] Address: [address] [place], [place] [address]Result Comment: <200 mg/dL, Desirable 200-239 mg/dL, Borderline high >239 mg/dL, HighPerformed By: #### HAN, 3024-7 #### [facility] CLIA [id number] [address] [place] [address] OF [place] #### 71238-2 #### [facility] CLIA [id number] [address] [place] [address] OF [facility] CLIA [id number] [address] [place] [address] 57[address]Ttmhmhonaoe in HDL [Mass/Vol]33 mg/dLLow>39[facility] on above:Order Comment: Specimen Type: BLOOD SPECIMEN Ordering Facility: [facility] Address: [address] [place], [place] [id number] Comment: 40-59 mg/dL, Acceptable >59 mg/dL, High: Negative risk factor for coronary heart disease <40 mg/dL, Low: Positive risk factor for coronary heart diseasePerformed By: #### HAN, 3024-7 #### [facility] CLIA [id number] [address] [place] [address] STATES [place] #### 14507-7 #### [facility] CLIA [id number] [address] [place] [address] OF [facility] CLIA [id number] [address] [place] [address] 36981Ierpprufuwg in LDL [Mass/Vol]104 mg/dLHigh<100[facility] on above:Order Comment: Specimen Type: BLOOD SPECIMEN Ordering Facility: [facility] Address: [address] [place], [place] [address]Result Comment: <100 mg/dL, Optimal 100-129 mg/dL, Near optimal/above optimal 130-159 mg/dL, Borderline high 160-189 mg/dL, High >189 mg/dL, Very high Secondary prevention optimal LDL Cholesterol levels are recommended to be <70 mg/dL LDL cholesterol is calculated using the Browning-NIH equation.Performed By: #### HAN, 3024-7 #### [facility] CLIA [id number] [address] [place] [address] #### 95668-4 #### [facility] CLIA [id number] [address] [place] [address] LAB CLIA [id number] [address] [place] [address] 84588Jpbyozrmpvm in LDL/Cholesterol in HDL [Mass ratio]3.15 {ratio} High<2.54[facility] on above:Order Comment: Specimen Type: BLOOD SPECIMEN Ordering Facility: [facility] Address: [address] [place], [place] [address]Result Comment: Reference: 1. National Cholesterol Education Program ATP III Guideline At-A-Glance Quick Desk Reference: National Heart, Lung, and Blood [place]. National Institutes of Health. 2001: NIH Publication No. 01-3305. 2. An International Atherosclerosis Society position paper: global recommendations for the management of dyslipidemia: executive summary, Atherosclerosis. 2014: 232(2):410-413.Performed By: #### HAN, 47 #### [facility] CLIA [id number] [address] [place] [address] #### 64457-9 #### [facility] CLIA [id number] [address] [place] [address] LAB CLIA [id number] [address] [place] [address] 07949Gpudddhrrsg in VLDL [Mass/Vol]26 mg/dLNormal<30[facility] on above:Order Comment: Specimen Type: BLOOD SPECIMEN Ordering Facility: [facility] Address: [address] [place], [place] [address]Performed By: #### HAN 3023-7 #### [facility] CLIA [id number] [address] [place] [address] [place] #### 55011-3 #### [facility] CLIA [id number] [address] [place] [address] [place] [facility] CLIA [id number] [address] [place] [address] 49190Nciyutcqila non HDL [Mass/Vol]132 mg/dLHigh<130[facility] on above:Order Comment: Specimen Type: BLOOD SPECIMEN Ordering Facility: [facility] Address: [address] [place], [place] [address]Result Comment: <130 mg/dL, Optimal 130-159 mg/dL, Near optimal/above optimal 160-189 mg/dL, Borderline high 190-219 mg/dL, High >219 mg/dL, Very high Secondary prevention optimal non HDL Cholesterol levels are recommended to be <100 mg/dLPerformed By: #### HAN 7 #### [facility] CLIA [id number] [address] [place] [address] [place] #### 58705-5 #### [facility] CLIA [id number] [address] [place], [place] [address] [place] [facility] CLIA [id number] [address] [place] [address] 29496Ovbbkcqpdap.total/Cholesterol in HDL [Mass ratio]5.00 {ratio} Normal<5.10[facility] on above:Order Comment: Specimen Type: BLOOD SPECIMEN Ordering Facility: [facility] Address: [address] [place], [place] [address]Performed By: #### HAN, 3023-7 #### [facility] CLIA [id number] [address] [place] [id number] [place] #### 45115-5 #### [facility] CLIA [id number] [address] [place], [place] [address] [facility] [place] [facility] CLIA [id number] [address] [place] [address] 54347IVTPGKX TIME12 hrsNormalCMcKitrick Hospital on above:Order Comment: Specimen Type: BLOOD SPECIMEN Ordering Facility: [facility] Address: [address] [place], [place] [address]Performed By: #### HAN, 302-7 #### [facility] CLIA [id number] [address] [place] [address] [place] #### 40530-6 #### [facility] CLIA [id number] [address] [place] [address] [place] [facility] CLIA [id number] [address] [place], [place] [id number] [Mass/Vol]158 mg/dLHigh<150[facility] on above:Order Comment: Specimen Type: BLOOD SPECIMEN Ordering Facility: [facility] Address: [address] [place], [place] [address]Result Comment: <150 mg/dL, Normal 150-199 mg/dL, Borderline high 200-499 mg/dL, High >499 mg/dL, Very highPerformed By: #### HAN, 3024-7 #### [facility] CLIA [id number] [address] [place], [place] [address] [place] #### 00012-2 #### [facility] CLIA [id number] [address] [place], [place] [address] [place] [facility] CLIA [id number] [address] [place] [address] 23048Es Panel InformationOrdered By: Lorraine Oneill on 11-28-2024 Urine Albumin/Creatinine Ratio8 mg/g<30[facility] Memorial HospitalComment on above:Adult Male and Female Nephrotic Criteria:<30 mg/g is considered normal to mildly livvvxeyr63-833rs/g is considered moderately increased>300 mg/g is considered severely increasedKDIGO. (2013). KDIGO 2012 Clinical Practice Guideline for the Evaluation and Management of Chronic Kidney Disease. Official Journal of the International Society of Nephrology, 3(1), 1-150.Urine Microalbumin mg/dl12.7 mg/LFSamaritan HospitalUrine Random Corgretmto515.8 mg/dL20.0-300.0[facility] Memorial HospitalCholesterol Ratio (LDL/HDL)3.15High<2.54[facility] Memorial HospitalComment on above: Reference:1. National Cholesterol Education Program ATP III Guideline At-A-Glance Quick Desk Reference: National Heart, Lung, and Blood [place]. National Institutes of Health. 2001: NIH PublicationNo. 01-3305.2. An International Atherosclerosis Society position paper: global recommendations for the management of dyslipidemia: executive summary, Atherosclerosis. 2014: 232(2):410-413.Fasting Ubehyt25 [facility] HospitalNon-HDL Cxzmtvsztrn516 mg/dLHigh<130[facility] Memorial HospitalComment on above: <130 mg/dL, Optimal 130-159 mg/dL, Near optimal/above optimal 160-189 mg/dL, Borderline high 190-219 mg/dL, High>219 mg/dL, Very highSecondary prevention optimal non HDL Cholesterol levels are recommended to be <100 mg/dLProtein [Mass/volume] in Serum or PlasmaOrdered By: Lorraine Oneill on 28-34-4044Ystswtp [Mass/Vol]6.9 g/dL6.3-8.0[facility] Hospitalerum or plasma anion gap determinationOrdered By: Lorraine Oneill on 74-06-2775Qayyd gap [Moles/Vol]11 mmol/L8-15[facility] Hospitalerum or plasma total cholesterol/high density lipoprotein (HDL) cholesterol mass ratOrdered By: Lorraine Oneill on 44-66-6804Vkegpijzjfz.total/Cholesterol in HDL [Mass ratio]5.00 {ratio}<5.10[facility] Memorial HospitalT4 Free SerPl-mCncon 16-79-8959Qdkk T4 [Mass/Vol]1.0 ng/dLNormal0.9-1.7CMcKitrick Hospital on above: Order Comment: Specimen Type: BLOOD SPECIMEN Ordering Facility: [facility] Address: [address] [place], [place] [address]Performed By: #### HAN, 3024-7 #### [facility] CLIA [id number] [address] [place] [address] OF [place] #### 10223-7 #### [facility] CLIA [id number] [address] [place] [address] LAB CLIA [id number] [address] [place] [address] 67298PRD W/REFLEX FT4on 73-04-4752PNI Qn5.150 m[IU]/LHigh 0.270-4.200[facility] on above:Order Comment: Specimen Type: BLOOD SPECIMEN Ordering Facility: [facility] Address: [address] [place], [place] [address]Performed By: #### HAN, 3024-7 #### [facility] CLIA [id number] [address] [place] [address] OF [place] #### 46750-5 #### [facility] CLIA [id number] [address] [place] [address] OF [facility] CLIA [id number] [address] [place] [address] 12312SNNQes 69-00-0105HUSYZlxowmwzm (ENDOMN) HOLA DOUGLAS ([id number]) 1945 F Date Time Provider Department 11/13/24 LORRAINE ONEILL During your visit today, we recorded the following information about you: Mone Parekh MA 11/13/2024 8:26 AM Signed November 13, 2024 8:23 AM Last encounter Visit on 08/21/2024 (with Lorraine Oneill) Hola Douglas called regarding labs. Patient states is at lab now and would like to get her labs drawn but it has an expected by date of 02/2025. She would like to have that removed so she can have them drawn noah. She can be reached at [phone]. Mone Parekh [employer] II Endocrinology AND Metabolism [place] [facility] F20 AND X20 Allergies As of Date: 11/13/2024 Noted Allergy Reaction ASA (SALICYLATES) 12/17/2004 Comments: causes platelet disfunction ASPIRIN 08/28/2018 16 - Unknown 14 - Other: See Comments LEVAQUIN (LEVOFLOXACIN) 12/29/2017 2 - Rash 14 - Other: See Comments Comments: Per pt feels like she on fire AVELOX (MOXIFLOXACIN HCL) 06/03/2011 5 - Intolerance Comments: C/O burning feeling on skin Date Reviewed: 10/09/2024 Reviewed by: Yane Hodgson, RN - Fully Assessed Reason for Visit: Orders [681] Prescriptions as of 11/13/2024 - fludrocortisone (FLORINEF) 0.1 mg tablet Take 2 tablets by mouth once daily. - tirzepatide (MOUNJARO) 10 mg/0.5 mL pen injector Inject 10 mg subcutaneously one time a week. - citalopram (CELEXA) 20 mg tablet Take 1 tablet by mouth once daily. - DULoxetine (CYMBALTA) 30 mg capsule Take 1 capsule by mouth once daily. - tobramycin (TOBREX) 0.3 % ophthalmic solution Use 1 drop in the right eye as directed. - pregabalin (LYRICA) 150 mg capsule Take 1 capsule by mouth two times a day. - lancets (TRUEPLUS LANCETS) 33 gauge Use with blood glucose test once daily - pravastatin (PRAVACHOL) 10 mg tablet Take 1 tablet by mouth once daily. - blood sugar diagnostic (TRUE METRIX GLUCOSE TEST STRIP) test strip Use with blood glucose test once daily - Blood-Glucose Meter (TRUE METRIX GLUCOSE METER) 1 Each once daily. - ergocalciferol 50,000 unit capsule (VITAMIN D2, DRISDOL) TAKE 1 CAPSULE ONE TIME WEEKLY - clonazePAM (KLONOPIN) 0.5 mg tablet Take 1 tablet by mouth as needed. For restless leg syndrome - loratadine (CLARITIN) 10 mg tablet Take 10 mg by mouth once daily. - fluticasone (FLONASE) 50 mcg/actuation nasal spray Use 2 Sprays in each nostril twice daily. - pen needle, diabetic (COMFORT EZ PEN NEEDLES) 33 gauge x 5/16 ndle To inject weekly - MULTIVITAMIN (MULTI-DAY ORAL) Take by mouth once daily. - calcium carbonate 600 mg-cholecalciferol 200 units (CALCIUM 600 + D,3,) 600 mg(1,500mg) -200 unit tab Take 1 tablet by mouth once daily. 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] 12/15/2004 11/10/2018 Pain in limb [M79.609] 12/15/2004 11/10/2018 ABNORMAL FINDINGS-BREAST [793.8] 12/17/2004 LOC OSTEOARTH NOS-HAND [M19.049] 12/29/2004 CARPAL TUNNEL SYNDROME [G56.00] 06/01/2005 Type 2 diabetes mellitus with stage 3a chronic *06/15/2007 MIXED HYPERLIPIDEMIA [E78.2] 06/15/2007 Bursitis of hip [M70.70] 04/18/2013 Vitamin D insufficiency [E55.9] 01/11/2014 Right buttock pain [M79.18] 03/21/2015 Pain in right hip [M25.551] 03/21/2015 Greater trochanteric bursitis of right hip [M70*03/21/2015 Iron deficiency anemia, unspecified [D50.9] 11/22/2018 Osteoarthritis of knee [M17.9] 12/05/2018 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] 04/13/2019 Orthostatic hypotension [I95.1] 12/24/2020 Dyspnea on exertion [R06.09] 12/24/2020 Fatigue [R53.83] 12/24/2020 Tinnitus, right ear [H93.11] 03/16/2021 Sensory hearing loss, 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] 03/16/2021 Restless legs syndrome [G25.81] 05/21/2021 Postmenopausal status [Z78.0] 05/21/2021 Mixed anxiety depressive disorder [F41.8] 05/21/2021 Diverticulitis [K57.92] 05/21/2021 Cough [R05.9] 05/21/2021 Chronic pain [G89.29] 05/21/2021 Bruises easily [R23.3] 05/21/2021 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*11/18/2021 Elevated AST (SGOT) [R74.01] 11/18/2021 Dizziness [R42] 11/18/2021 Abnormal weight gain [R63.5] 06/23/2023 Chronic bilateral back pain [M54.9, G89.29] 11/29/2023 Lumbosacral spondylosis with radiculopathy [M47*02/07/2024 Spinal stenosis of lumbar region with radiculop*06/26/2024 Lumbar radiculopathy [M54.16] 06/26/2024 Constipation [K59.00] 08/21/2024 Encounter Status:Closed by MONE PAREKH on 11/13/24NoVan Wert County HospitalDeepa 18-07-2212LAXVIbxkwadfi ([place]) HOLA DOUGLAS ([id number]) 1945 F Date Time Provider Department 10/17/24 DORI PADILLA During your visit today, we recorded the following information about you: Swapnil Borrego RN 10/17/2024 12:40 PM Signed RN returned patients call regarding blood pressure. Patient says her FLORINEF was increased to 0.1mg BID from once daily which had helped to resolve her dizziness. However, she says she has had increased dizziness and reports a fall last week. She did not mention any injury sustained from fall but she does say that she feels like her BP was low at the time. She did not record her blood pressure at that time. RN first encouraged an increase in conservative measures during summer months as heat can exacerbate symptoms. Specifically instructed patient to increase water and sodium intake. Patient agreed to do so and says she has been trying to avoid the heat by staying indoors. Patient says she does wear compression stockings but not an abdominal binder as suggested in her office visit note. RN explained that these could be found at her local medical supply store or pharmacy. Patient says she will check [facility]. RN also suggested searching [employer]. Last, RN explained plan to send patient instructions for an orthostatic log so that her provider has some objective data to help guide recommendations. Patient verbalized understanding and thanked RN for the call. GENESIS Vitale, RN, Dori Pérez PA-C 10/17/2024 3:07 PM Signed Looks good thank you. If new dizziness or new or worsening symptoms ER. Thanks, Dori Padilla PA-C Allergies As of Date: 10/17/2024 Noted Allergy Reaction ASA (SALICYLATES) 12/17/2004 Comments: causes platelet disfunction ASPIRIN 08/28/2018 16 - Unknown 14 - Other: See Comments LEVAQUIN (LEVOFLOXACIN) 12/29/2017 2 - Rash 14 - Other: See Comments Comments: Per pt feels like she on fire AVELOX (MOXIFLOXACIN HCL) 06/03/2011 5 - Intolerance Comments: C/O burning feeling on skin Date Reviewed: 10/09/2024 Reviewed by: Yane Hodgson RN - Fully Assessed Prescriptions as of 11/02/2024 - fludrocortisone (FLORINEF) 0.1 mg tablet Take 2 tablets by mouth once daily. - tirzepatide (MOUNJARO) 10 mg/0.5 mL pen injector Inject 10 mg subcutaneously one time a week. - citalopram (CELEXA) 20 mg tablet Take 1 tablet by mouth once daily. - DULoxetine (CYMBALTA) 30 mg capsule Take 1 capsule by mouth once daily. - tobramycin (TOBREX) 0.3 % ophthalmic solution Use 1 drop in the right eye as directed. - pregabalin (LYRICA) 150 mg capsule Take 1 capsule by mouth two times a day. - lancets (TRUEPLUS LANCETS) 33 gauge Use with blood glucose test once daily - pravastatin (PRAVACHOL) 10 mg tablet Take 1 tablet by mouth once daily. - blood sugar diagnostic (TRUE METRIX GLUCOSE TEST STRIP) test strip Use with blood glucose test once daily - Blood-Glucose Meter (TRUE METRIX GLUCOSE METER) 1 Each once daily. - ergocalciferol 50,000 unit capsule (VITAMIN D2, DRISDOL) TAKE 1 CAPSULE ONE TIME WEEKLY - clonazePAM (KLONOPIN) 0.5 mg tablet Take 1 tablet by mouth as needed. For restless leg syndrome - loratadine (CLARITIN) 10 mg tablet Take 10 mg by mouth once daily. - fluticasone (FLONASE) 50 mcg/actuation nasal spray Use 2 Sprays in each nostril twice daily. - pen needle, diabetic (COMFORT EZ PEN NEEDLES) 33 gauge x 5/16 ndle To inject weekly - MULTIVITAMIN (MULTI-DAY ORAL) Take by mouth once daily. - calcium carbonate 600 mg-cholecalciferol 200 units (CALCIUM 600 + D,3,) 600 mg(1,500mg) -200 unit tab Take 1 tablet by mouth once daily. 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] 12/15/2004 11/10/2018 Pain in limb [M79.609] 12/15/2004 11/10/2018 ABNORMAL FINDINGS-BREAST [793.8] 12/17/2004 LOC OSTEOARTH NOS-HAND [M19.049] 12/29/2004 CARPAL TUNNEL SYNDROME [G56.00] 06/01/2005 Type 2 diabetes mellitus with stage 3a chronic *06/15/2007 MIXED HYPERLIPIDEMIA [E78.2] 06/15/2007 Bursitis of hip [M70.70] 04/18/2013 Vitamin D insufficiency [E55.9] 01/11/2014 Right buttock pain [M79.18] 03/21/2015 Pain in right hip [M25.551] 03/21/2015 Greater trochanteric bursitis of right hip [M70*03/21/2015 Iron deficiency anemia, unspecified [D50.9] 11/22/2018 Osteoarthritis of knee [M17.9] 12/05/2018 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] 04/13/2019 Orthostatic hypotension [I95.1] 12/24/2020 Dyspnea on exertion [R06.09] 12/24/2020 Fatigue [R53.83] 12/24/2020 Tinnitus, right ear [H93.11] 03/16/2021 Sensory hearing loss, 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] 03/16/2021 Restless legs syndrome [G25.81] 05/21/2021 Postmenopausal status [Z78.0] 05/21/2021 Mixed anxiety depressive disorder [F41.8] 05/21/2021 Diverticulitis [K57.92] 05/21/2021 Cough [R05.9] 05/21/2021 Chronic pain [G89.29] 05/21/2021 Bruises easily [R2 (more content not included)...NormalSelect [facility] - TrumbullCNPNon [id number] (SPNSMN) HOLA DOUGLAS ([id number]) 1945 F Date Time Provider Department 10/11/24 ZAK COHEN SPNSMN During your visit today, we recorded the following information about you: Sofiya Haynes LPN 10/11/2024 11:53 AM Signed Post Spine Injection phone call: 10/11/24 Patient denies fever, chills, new headache, prolonged numbness nor exacerbation of pain status. Injection site(s) flat and dry with no redness nor drainage. Pre Procedure Pain level: 5, but can get to 9 Immediately Post Procedure: 9 Pain level today: 4-5 (0 = none - 10 = extreme) Percentage of pain relief: patient states it depends what she's doing. When she's sitting the pain is down and when she's doing something her pain is still there. She was unable to give percentage of pain relief Blood Glucose monitorin mg/dL October 10, 2024 Patient encouraged to monitor blood glucose for next 24 -48 for elevations. Patient verbalized understanding that it may take up to 14 days to realize full benefit of spinal injection. Follow up as indicated on order: Ordering Provider Via Office Visit: 4-6 weeks. Patient reminded to bring pain diary to follow appointment. If follow up appointment indicated on order, patient encouraged to schedule follow up appointment 4-6 weeks post procedure by calling [phone] Patient does not have any questions or concerns. Patient will call office with any questions or concerns. Allergies As of Date: 10/11/2024 Noted Allergy Reaction ASA (SALICYLATES) 12/17/2004 Comments: causes platelet disfunction ASPIRIN 08/28/2018 16 - Unknown 14 - Other: See Comments LEVAQUIN (LEVOFLOXACIN) 12/29/2017 2 - Rash 14 - Other: See Comments Comments: Per pt feels like she on fire AVELOX (MOXIFLOXACIN HCL) 06/03/2011 5 - Intolerance Comments: C/O burning feeling on skin Date Reviewed: 10/09/2024 Reviewed by: Yane Hodgson RN - Fully Assessed Reason for Visit: Post Injection Questions [Other] Prescriptions as of 10/11/2024 - tirzepatide (MOUNJARO) 10 mg/0.5 mL pen injector Inject 10 mg subcutaneously one time a week. - citalopram (CELEXA) 20 mg tablet Take 1 tablet by mouth once daily. - DULoxetine (CYMBALTA) 30 mg capsule Take 1 capsule by mouth once daily. - tobramycin (TOBREX) 0.3 % ophthalmic solution Use 1 drop in the right eye as directed. - pregabalin (LYRICA) 150 mg capsule Take 1 capsule by mouth two times a day. - fludrocortisone (FLORINEF) 0.1 mg tablet Take 2 tablets by mouth once daily. - lancets (TRUEPLUS LANCETS) 33 gauge Use with blood glucose test once daily - pravastatin (PRAVACHOL) 10 mg tablet Take 1 tablet by mouth once daily. - blood sugar diagnostic (TRUE METRIX GLUCOSE TEST STRIP) test strip Use with blood glucose test once daily - Blood-Glucose Meter (TRUE METRIX GLUCOSE METER) 1 Each once daily. - ergocalciferol 50,000 unit capsule (VITAMIN D2, DRISDOL) TAKE 1 CAPSULE ONE TIME WEEKLY - clonazePAM (KLONOPIN) 0.5 mg tablet Take 1 tablet by mouth as needed. For restless leg syndrome - loratadine (CLARITIN) 10 mg tablet Take 10 mg by mouth once daily. - fluticasone (FLONASE) 50 mcg/actuation nasal spray Use 2 Sprays in each nostril twice daily. - pen needle, diabetic (COMFORT EZ PEN NEEDLES) 33 gauge x 5/16 ndle To inject weekly - MULTIVITAMIN (MULTI-DAY ORAL) Take by mouth once daily. - calcium carbonate 600 mg-cholecalciferol 200 units (CALCIUM 600 + D,3,) 600 mg(1,500mg) -200 unit tab Take 1 tablet by mouth once daily. Problem List As Of Date 10/11/2024 Noted Resolved Lesion of ulnar nerve [G56.20] 12/15/2004 11/10/2018 Pain in limb [M79.609] 12/15/2004 11/10/2018 ABNORMAL FINDINGS-BREAST [793.8] 12/17/2004 LOC OSTEOARTH NOS-HAND [M19.049] 12/29/2004 CARPAL TUNNEL SYNDROME [G56.00] 06/01/2005 Type 2 diabetes mellitus with stage 3a chronic *06/15/2007 MIXED HYPERLIPIDEMIA [E78.2] 06/15/2007 Bursitis of hip [M70.70] 04/18/2013 Vitamin D insufficiency [E55.9] 01/11/2014 Right buttock pain [M79.18] 03/21/2015 Pain in right hip [M25.551] 03/21/2015 Greater trochanteric bursitis of right hip [M70*03/21/2015 Iron deficiency anemia, unspecified [D50.9] 11/22/2018 Osteoarthritis of knee [M17.9] 12/05/2018 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] 04/13/2019 Orthostatic hypotension [I95.1] 12/24/2020 Dyspnea on exertion [R06.09] 12/24/2020 Fatigue [R53.83] 12/24/2020 Tinnitus, right ear [H93.11] 03/16/2021 Sensory hearing loss, 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] 03/16/2021 Restless legs syndrome [G25.81] 05/21/2021 Postmenopausal status [Z78.0] 05/21/2021 Mixed anxiety depressive disorder [F41.8] 05/21/2021 Diverticulitis [K57.92] 05/21/2021 Cough [R05.9] 05/21/2021 Chronic pain [G89.29] 05/21/2021 Bruises easily [R23.3] 05/21/2021 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*11/18/2021 Elevated AST (SGOT) [R74.01] 11/18/2021 Dizzine (more content not included)...NormalSelect [facility] - Trumbull1000019on [id number] ID: [id number] Author: YANE HODGSON RN Service: ? Author Type: Registered Nurse Type: [id number] Filed: 10/09/2024 09:26 Note Text: [facility] Post-Procedure Pain Diary- Group 2 You MUST bring this diary with you to your follow-up appointment Date: ____/____/____ Injection Time: am/pm Draw where your pain is BEFORE the procedure Please indicate your pain level BEFORE the procedure At Rest 0 1 2 3 4 5 6 7 8 9 10 With Movement 0 1 2 3 4 5 6 7 8 9 10 Additional Comments? POST- PROCEDURE Pain Diary * Please score pain only for the area of pain treated with this procedure * 30 minutes after procedure At Rest With Movement 0 1 2 3 4 5 6 7 8 9 10 0 1 2 3 4 5 6 7 8 9 10 % Improvement 0 20 40 60 80 100 Comments: 1 hour after procedure At Rest With Movement 0 1 2 3 4 5 6 7 8 9 10 0 1 2 3 4 5 6 7 8 9 10 % Improvement 0 20 40 60 80 100 Comments: 2 hours after procedure At Rest With Movement 0 1 2 3 4 5 6 7 8 9 10 0 1 2 3 4 5 6 7 8 9 10 % Improvement 0 20 40 60 80 100 Comments: 3 hours after procedure At Rest With Movement 0 1 2 3 4 5 6 7 8 9 10 0 1 2 3 4 5 6 7 8 9 10 % Improvement 0 20 40 60 80 100 Comments: 4 hours after procedure At Rest With Movement 0 1 2 3 4 5 6 7 8 9 10 0 1 2 3 4 5 6 7 8 9 10 % Improvement 0 20 40 60 80 100 Comments: 5 hours after procedure At Rest With Movement 0 1 2 3 4 5 6 7 8 9 10 0 1 2 3 4 5 6 7 8 9 10 % Improvement 0 20 40 60 80 100 Comments: 6 hours after procedure At Rest With Movement 0 1 2 3 4 5 6 7 8 9 10 0 1 2 3 4 5 6 7 8 9 10 % Improvement 0 20 40 60 80 100 Comments: 1 week after procedure At Rest With Movement 0 1 2 3 4 5 6 7 8 9 10 0 1 2 3 4 5 6 7 8 9 10 % Improvement 0 20 40 60 80 100 Comments: 2 weeks after procedure At Rest With Movement 0 1 2 3 4 5 6 7 8 9 10 0 1 2 3 4 5 6 7 8 9 10 % Improvement 0 20 40 60 80 100 Comments:NormalThe Surgical Hospital at SouthwoodsTORY PHYSICALon [id number] PHYSICALHNO ID: [id number] Author: KARLI ARMENDARIZ APRN.ENVIRONMENTAL ENGINEER SCIENTIST Service: ? Author Type: Nurse Practitioner Type: H&P Filed: 10/09/2024 07:32 Note Text: LOCAL PROCEDURE HISTORY AND PHYSICAL EXAM SERVICE DATE: 10/09/2024 SERVICE TIME: 7:32 AM Provisional Diagnosis/Treatment Plan: INJECTION(S) STEROID TRANSFORAMINAL EPIDURAL LUMBAR W/IMAGE GUIDANCE FLUORO OR CT, INJECT ANES AGENT STEROID TRANSFORAMINAL EPIDURAL LUMBAR OR SACRAL EA ADD'L LEVEL W/IMAGE GUIDANCE FLUORO OR CT Subjective HPI: This is a 79 year old female who presents with back pain --scheduled for INJECTION(S) STEROID TRANSFORAMINAL EPIDURAL LUMBAR W/IMAGE GUIDANCE FLUORO OR CT, INJECT ANES AGENT STEROID TRANSFORAMINAL EPIDURAL LUMBAR OR SACRAL EA ADD'L LEVEL W/IMAGE GUIDANCE FLUORO OR CT today. Patient denies recent illnesses, fevers, chills, cough, SOB, CP, palpitations, or fluttering. MEDICATIONS: Prior to Admission medications as of 10/09/24 0724 Medication Sig Last Dose Taking citalopram (CELEXA) 20 mg tablet Take 1 tablet by mouth once daily. 10/08/2024 Yes DULoxetine (CYMBALTA) 30 mg capsule Take 1 capsule by mouth once daily. 10/08/2024 Yes pregabalin (LYRICA) 150 mg capsule Take 1 capsule by mouth two times a day. 10/08/2024 Yes fludrocortisone (FLORINEF) 0.1 mg tablet Take 2 tablets by mouth once daily. 10/08/2024 Yes lancets (TRUEPLUS LANCETS) 33 gauge Use with blood glucose test once daily 10/09/2024 Morning Yes pravastatin (PRAVACHOL) 10 mg tablet Take 1 tablet by mouth once daily. 10/08/2024 Yes blood sugar diagnostic (TRUE METRIX GLUCOSE TEST STRIP) test strip Use with blood glucose test once daily 10/09/2024 Morning Yes Blood-Glucose Meter (TRUE METRIX GLUCOSE METER) 1 Each once daily. 10/09/2024 Morning Yes ergocalciferol 50,000 unit capsule (VITAMIN D2, DRISDOL) TAKE 1 CAPSULE ONE TIME WEEKLY 10/08/2024 Yes loratadine (CLARITIN) 10 mg tablet Take 10 mg by mouth once daily. 10/08/2024 Yes fluticasone (FLONASE) 50 mcg/actuation nasal spray Use 2 Sprays in each nostril twice daily. 10/08/2024 Yes MULTIVITAMIN (MULTI-DAY ORAL) Take by mouth once daily. 10/08/2024 Yes calcium carbonate 600 mg-cholecalciferol 200 units (CALCIUM 600 + D,3,) 600 mg(1,500mg) -200 unit tab Take 1 tablet by mouth once daily. 10/08/2024 Yes tirzepatide (MOUNJARO) 10 mg/0.5 mL pen injector Inject 10 mg subcutaneously one time a week. 10/01/2024 tobramycin (TOBREX) 0.3 % ophthalmic solution Use 1 drop in the right eye as directed. clonazePAM (KLONOPIN) 0.5 mg tablet Take 1 tablet by mouth as needed. For restless leg syndrome Unknown pen needle, diabetic (COMFORT EZ PEN NEEDLES) 33 gauge x 5/16 ndle To inject weekly ALLERGIES Allergen Reactions Asa [Salicylates] causes platelet disfunction Aspirin Unknown, Other: See Comments Levaquin [Levofloxa* Rash, Other: See Comments Per pt feels like she on fire Avelox [Moxifloxaci* Intolerance C/O burning feeling on skin Objective PHYSICAL EXAM: The remainder of the physical exam is noncontributory. LUNGS: Lungs clear to auscultation CARDIAC: Regular rhythm,Regular rate BP 118/60 Pulse 78 Temp 36.1 ?C (97 ?F) (Temporal) Resp 16 SpO2 95% PAIN ASSESSMENT: PAIN EVALUATION 10/09/2024 0731 Pain Level: 5 Pain Location: Back-Lower Description: Stabbing Intervention/Comfort measure: Reposition;Relaxation Assessment/Plan Lumbosacral spondylosis with radiculopathy [M47.27] Scoliosis, unspecified scoliosis type, unspecified spinal region [M41.9] Lumbosacral stenosis [M48.07] Spinal stenosis, lumbar region, without neurogenic claudication [M48.061] SIGNATURE: aKrli Armendariz APRN.ENVIRONMENTAL ENGINEER SCIENTIST PATIENT NAME: Hola Douglas DATE: October 09, 2024 TIME: 7:32 AM PAGER:NormalSelect [facility] Hospital - TrumbullNURSING PROGon 10-09-2024 NURSING PROGHNO ID: [id number] Author: YANE HODGSON, RN Service: Nursing Author Type: Registered Nurse Type: Nursing Progress Note Filed: 10/09/2024 09:57 Note Text: Other: 0950 - Dr Cohen came to bedside to assure patient her feelings of pain and numbness were a common side effect and should get better with time.Normal [facility] TrumbullOPERATIVE NOon [id number] NOHNO ID: [id number] Author: ZAK COHEN DO Service: Physical Medicine AND Rehabilitation Author Type: Physician Type: Operative Report Filed: 10/09/2024 09:12 Note Text: PROCEDURE REPORT Surgery/Procedure Date: October 09, 2024 Interventionalist: Zak Cohen DO Procedure(s): Right L3-4 and L4-5 transforaminal epidural steroid injections Pre-Op/Pre-Procedure Diagnosis: Lumbar spinal stenosis with radiculopathy Post-Op Diagnosis: same SUBJECTIVE: Hola Douglas is a 79 year old female, who presents to the [facility] ambulatory surgery center for a right L3-L4 and L4-L5 transforaminal epidural steroid injection. 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 Pain is right low back to right lateral thigh. Pain is 5/10, but goes up to 9/10. I have reviewed the nurses notes and am aware of the patient's history. OBJECTIVE: Vital signs are documented in the paper chart prior to and throughout the procedure. INFORMED CONSENT: Risks, benefits, alternatives and personnel discussed with patient who consents to proceed. A formal sign in and timeout with team members and patient present were performed prior to procedure start/delivery of medication. PROCEDURE: Procedure: Right L3-L4 and L4-L5 Transforaminal Epidural Steroid Injection Hola Douglas was transferred to the Block Room. Time out was performed. After placement of routine monitors (blood pressure, pulse oximetry, and heart rate monitored by dedicated nurse), the procedure was performed in the usual manner. Anesthesia: Local only Start time: 856 Stop time: 908 Fluoroscopy time: 38 seconds Estimated blood loss: none Level: right L3-L4 and L4-L5 Technique: Patient positioned prone. Procedure area was prepped with Betadine and draped with sterile coverings. An oblique approach was used with C-arm guidance. The skin was anesthetized with 1% lidocaine. A #22 gauge short-bevel spinal needle was inserted to the proper location within the intervertebral foramen using intermittent fluoroscopy. Position was confirmed with iohexol contrast under live fluoroscopy. Needle position was verified in two views and epidurogram was visualized and recorded. 7.5 mg of dexamethasone and 1.25 cc of lidocaine 1% was injected at right L3-4. 7.5 mg of dexamethasone and 2.25 cc of lidocaine 1% was injected at right L4-5. The spinal needle was then removed. Adequate hemostasis was obtained at the needle puncture site. The patient's back was cleaned and a sterile dressing was applied. Patient could feel some pain radiating down right thigh at the L3-4 level, but tolerated the procedure well and was taken conscious and in stable condition to the recovery room for observation. No complications as a result of this procedure. Post procedure precautions and instructions were reviewed with the patient who verbalized understanding. I/primary surgeon/proceduralist performed the procedure alone. No complications were encountered. Estimated blood loss: none Specimens: none Implanted devices: none Drains: none Post procedure physical exam unchanged from pre procedure. Significant findings: Oblique 15 right for AP No tilt for L4-5 Caudal 5 for L3-4 Oblique 30 total for trajectory at both sites ASSESSMENT: Pre Procedure diagnosis: Lumbar spinal stenosis with radiculopathy Post-Procedure diagnosis: same Pre Procedure Pain Level: same as above Post Procedure Pain Level: as documented in nursing notes and paper chart Purposeful response to verbal or tactile stimulation: Yes PLAN: Post-procedure instructions reviewed with patient. Patient is to complete post-procedure pain diary and follow up with the ordering provider. Patient is to contact our office with any question or if any side effects are noted. Hola Douglas was transferred to the recovery room and is to be discharged home in stable condition. Zak Cohen [facility] [id number] Visit (SPSNAV) HOLA DOUGLAS ([id number]) 1945 F Date Time Provider Department 09/27/24 11:00 AM BUCK DAY SPSNAV During your visit today, we recorded the following information about you: Buck Day MD 09/27/2024 12:35 PM Signed SPINE SURGERY NEW PATIENT This is an in-person visit. PCP: Erich Gillis DO REFERRING PROVIDER: Steve Wagoner MD SUBJECTIVE CHIEF COMPLAINT: Lower back pain Radicular right leg pain HISTORY OF PRESENT ILLNESS: Hola Douglas is a 79 year old female presenting with spouse. Ms. Hola Douglas is a pleasant 79 year old female in the spine surgery clinic with a history of lower back and right leg pain without history of injury or fall. Pain radiates into right lower extremity up to the knee most of the time. Occasionally pain is radiating to right lower extremity up to feet.. Pain is sharp and shooting in nature. Sharp pain is sporadic in nature. Pain worsens with bending, standing, and walking for a long time. She is able to stand only for a short period before back pain worsens. She has numbness and tingling in both of her feet on the first two toes. Her numbness is sporadic. She complains of weakness and falling. Denies bowel and bladder dysfunction. She also notices numbness and tingling in her right three fingers. She has had carpal tunnel surgery on the right side in the past. She had multiple proximal metacarpal as well as finger surgeries in the past. Hx of diabetes. Last A1c was 6.4 on 07/23/2024. Hx of controlled hypotension. She has tried gabapentin in the past. Stopped since it was not helping. Currently taking Lyrica 150 mg 3x a day. Also taking Cymbalta Received right transforaminal epidural steroid injection with some pain relief. Received right L4-5 transforaminal epidural steroid injection with pain relief for a week. Received L3-4 interlaminar epidural steroid injection with 70-80% pain relief for two weeks. No previous spine surgeries. PRECIPITATING EVENT: None DURATION OF SYMPTOMS: Greater Than 6 Months PAIN EVALUATION 08/10/2024 0925 09/20/2024 1038 09/27/2024 1042 Pain Level: 7 7 5 Pain Location: Back-Lower Back-Lower Back-Lower Pain radiated down right thigh to right knee Description: Aching;Cramping;Radiating Aching;Cramping;Radiating Aching;Sharp Duration Amount of Time: 24 24 6 Duration Units: Hours Hours Months Frequency: Continuous Continuous Intermittent Intervention/Comfort measure: Positioning Positioning Medication;Therapeutic techniques-CPRP Pain Radiation: below the right knee Aggravating Factors: Standing, Walking Alleviating Factors: Medications Pain Ratio: Pain in the back and leg(s) is equal DERMATOMAL DISTRIBUTION: Right: L3, L4, and L5 AMBULATORY STATUS: Impaired Community Distances ANTIPLATELET OR ANTICOAGULATION STATUS: No PREVIOUS CONSERVATIVE TREATMENTS: Gabapentin Lyrica 150 mg 3x daily Cymbalta 30 mg once daily Received right transforaminal epidural steroid injection with some pain relief. Received right L4-5 transforaminal epidural steroid injection with pain relief for a week. Received L3-4 interlaminar epidural steroid injection with 70-80% pain relief for two weeks. 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 Dyspnea on exertion Fatigue Tinnitus, Right Ear Sensory Hearing Loss, Bilateral Restless Legs Syndrome Postmenopausal Status Mixed Anxiety Depressive Disorder Diverticulitis Cough Chronic Pain Bruises Easily Type 2 Diabetes Mellitus With Peripheral Neuropathy (Hcc) Elevated Ast (Sgot) Dizziness Abnormal Weight Gain Chronic Bilateral Back Pain 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 Lumbar Radiculopathy Constipation PAST MEDICAL HISTORY Diagnosis Date Carpal tunnel syndrome Diverticulosis of colon (without mention of hemorrhage) Hypotension Localized osteoarthrosis not specified whether primary or secondary, hand Mastodynia Other chronic sinusitis Type II or unspecified type diabetes mellitus without mention of complication, uncontrolled Vertigo Current workup PAST SURGICAL HISTORY Procedure Laterality Date ARTHROSCOPY KNEE DIAGNOSTIC W/WO SYNOVIAL BX SPX Left Arthroscopy, knee BIOPSY ROSSY (more content not included)...NormalAdena Fayette Medical CenterPNon [id number] (SPNSMN) HOLA DOUGLAS ([id number]) 1945 F Date Time Provider Department 09/26/24 ZAK COHEN SPNSMN During your visit today, we recorded the following information about you: Sofiya Haynes LPN 09/26/2024 10:55 AM Signed Phoned patient and spoke with patient to confirm appointment for Hola Douglas for spine procedure on 10/09/24. Patient notified that [facility] will call patient the night before with the time to arrive for injection. Patient verbalized understanding of the following: -Provided education on spine procedure and answered questions related to spine injection procedure. -Desk Editor is needed to drive patient home: Yes, and patient aware [employer] company flatbed driver will need to stay for procedure and drive her home. -NPO 6 hours prior to appointment, ok to take morning medications with sip of water. -Not to take any pain medications the day of injection to see how well injection works. -Do not take any NSAIDs/anti-inflammatories (mobic, ibuprofen, advil, aleve, etc) the day of procedure for all lumbar, hip, and sacroiliac joint procedures. Hold NSAIDs for 1 day prior to procedure for cervical cases. Allergies reviewed: Yes Allergy to IV contrast dye or steroids: No Taking any antiplatelet/anticoagulant (blood thinners): No Taking aspirin 81mg: no Any open wounds/sores?: No Taking Antibiotics?: No Diabetic: Yes, notified that blood sugar will be taken at office and ok to take morning diabetes medication. Patient given number [phone], spine injections schedulers, if there is any need to reschedule/ change appointment during normal business hours. Active MyChart users were informed to read [employer] procedure instructions prior to appointment. AMBULATORY PATIENT EDUCATION TOPIC: SPINE INJECTION PROCEDURE, PRE-INJECTION AND POST- INJECTION INSTRUCTIONS READINESS TO LEARN COGNITIVE ABILITY: ALERT AND ORIENTED MOTIVATION TO LEARN: Eager FAMILY SUPPORT: Unable to assess - Family not present INSTRUCTION PROVIDED TO: Patient PATIENT LEARNS BEST BY: INDIVIDUAL INSTRUCTION FACTORS AFFECTING LEARNING: None PHYSICAL LIMITATIONS AFFECTING LEARNING: None LEARNING RESPONSE METHOD OF INSTRUCTION: TEACH BACK AND INDIVIDUAL INSTRUCTION PATIENT / FAMILY RESPONSE: VERBALIZED UNDERSTANDING OF PRE AND POST INJECTION INSTRUCTIONS Allergies As of Date: 09/26/2024 Noted Allergy Reaction ASA (SALICYLATES) 12/17/2004 Comments: causes platelet disfunction ASPIRIN 08/28/2018 16 - Unknown 14 - Other: See Comments LEVAQUIN (LEVOFLOXACIN) 12/29/2017 2 - Rash 14 - Other: See Comments Comments: Per pt feels like she on fire AVELOX (MOXIFLOXACIN HCL) 06/03/2011 5 - Intolerance Comments: C/O burning feeling on skin Date Reviewed: 09/11/2024 Reviewed by: La Brothers OCCA - Fully Assessed Reason for Visit: Preperations for Procedure Call [Other] Prescriptions as of 09/26/2024 - tirzepatide (MOUNJARO) 10 mg/0.5 mL pen injector Inject 10 mg subcutaneously one time a week. - citalopram (CELEXA) 20 mg tablet Take 1 tablet by mouth once daily. - DULoxetine (CYMBALTA) 30 mg capsule Take 1 capsule by mouth once daily. - tobramycin (TOBREX) 0.3 % ophthalmic solution Use 1 drop in the right eye as directed. - pregabalin (LYRICA) 150 mg capsule Take 1 capsule by mouth two times a day. - fludrocortisone (FLORINEF) 0.1 mg tablet Take 2 tablets by mouth once daily. - lancets (TRUEPLUS LANCETS) 33 gauge Use with blood glucose test once daily - pravastatin (PRAVACHOL) 10 mg tablet Take 1 tablet by mouth once daily. - blood sugar diagnostic (TRUE METRIX GLUCOSE TEST STRIP) test strip Use with blood glucose test once daily - Blood-Glucose Meter (TRUE METRIX GLUCOSE METER) 1 Each once daily. - ergocalciferol 50,000 unit capsule (VITAMIN D2, DRISDOL) TAKE 1 CAPSULE ONE TIME WEEKLY - clonazePAM (KLONOPIN) 0.5 mg tablet Take 1 tablet by mouth as needed. For restless leg syndrome - loratadine (CLARITIN) 10 mg tablet Take 10 mg by mouth once daily. - fluticasone (FLONASE) 50 mcg/actuation nasal spray Use 2 Sprays in each nostril twice daily. - pen needle, diabetic (COMFORT EZ PEN NEEDLES) 33 gauge x 5/16 ndle To inject weekly - MULTIVITAMIN (MULTI-DAY ORAL) Take by mouth once daily. - calcium carbonate 600 mg-cholecalciferol 200 units (CALCIUM 600 + D,3,) 600 mg(1,500mg) -200 unit tab Take 1 tablet by mouth once daily. 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] 12/15/2004 11/10/2018 Pain in limb [M79.609] 12/15/2004 11/10/2018 ABNORMAL FINDINGS-BREAST [793.8] 12/17/2004 LOC OSTEOARTH NOS-HAND [M19.049] 12/29/2004 CARPAL TUNNEL SYNDROME [G56.00] 06/01/2005 Type 2 diabetes mellitus with stage 3a chronic *06/15/2007 MIXED HYPERLIPIDEMIA [E78.2] 06/15/2007 Bursitis of hip [M70.70] 04/18/2013 Vitamin D insufficiency [E55.9] 01/11/2014 (more content not included)...[facility] [id number] (SPNSMN) HOLA DOUGLAS ([id number]) 1945 F Date Time Provider Department 09/25/24 ZAK COHEN SPNSMN During your visit today, we recorded the following information about you: Sofiya Haynes LPN 09/25/2024 12:16 PM Signed [employer] message sent to patient with Procedure Instructions. Allergies As of Date: 09/25/2024 Noted Allergy Reaction ASA (SALICYLATES) 12/17/2004 Comments: causes platelet disfunction ASPIRIN 08/28/2018 16 - Unknown 14 - Other: See Comments LEVAQUIN (LEVOFLOXACIN) 12/29/2017 2 - Rash 14 - Other: See Comments Comments: Per pt feels like she on fire AVELOX (MOXIFLOXACIN HCL) 06/03/2011 5 - Intolerance Comments: C/O burning feeling on skin Date Reviewed: 09/11/2024 Reviewed by: La Brothers OCCA - Fully Assessed Reason for Visit: Preperations for Procedure [Other] Prescriptions as of 09/25/2024 - tirzepatide (MOUNJARO) 10 mg/0.5 mL pen injector Inject 10 mg subcutaneously one time a week. - citalopram (CELEXA) 20 mg tablet Take 1 tablet by mouth once daily. - DULoxetine (CYMBALTA) 30 mg capsule Take 1 capsule by mouth once daily. - tobramycin (TOBREX) 0.3 % ophthalmic solution Use 1 drop in the right eye as directed. - pregabalin (LYRICA) 150 mg capsule Take 1 capsule by mouth two times a day. - fludrocortisone (FLORINEF) 0.1 mg tablet Take 2 tablets by mouth once daily. - lancets (TRUEPLUS LANCETS) 33 gauge Use with blood glucose test once daily - pravastatin (PRAVACHOL) 10 mg tablet Take 1 tablet by mouth once daily. - blood sugar diagnostic (TRUE METRIX GLUCOSE TEST STRIP) test strip Use with blood glucose test once daily - Blood-Glucose Meter (TRUE METRIX GLUCOSE METER) 1 Each once daily. - ergocalciferol 50,000 unit capsule (VITAMIN D2, DRISDOL) TAKE 1 CAPSULE ONE TIME WEEKLY - clonazePAM (KLONOPIN) 0.5 mg tablet Take 1 tablet by mouth as needed. For restless leg syndrome - loratadine (CLARITIN) 10 mg tablet Take 10 mg by mouth once daily. - fluticasone (FLONASE) 50 mcg/actuation nasal spray Use 2 Sprays in each nostril twice daily. - pen needle, diabetic (COMFORT EZ PEN NEEDLES) 33 gauge x 5/16 ndle To inject weekly - MULTIVITAMIN (MULTI-DAY ORAL) Take by mouth once daily. - calcium carbonate 600 mg-cholecalciferol 200 units (CALCIUM 600 + D,3,) 600 mg(1,500mg) -200 unit tab Take 1 tablet by mouth once daily. 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] 12/15/2004 11/10/2018 Pain in limb [M79.609] 12/15/2004 11/10/2018 ABNORMAL FINDINGS-BREAST [793.8] 12/17/2004 LOC OSTEOARTH NOS-HAND [M19.049] 12/29/2004 CARPAL TUNNEL SYNDROME [G56.00] 06/01/2005 Type 2 diabetes mellitus with stage 3a chronic *06/15/2007 MIXED HYPERLIPIDEMIA [E78.2] 06/15/2007 Bursitis of hip [M70.70] 04/18/2013 Vitamin D insufficiency [E55.9] 01/11/2014 Right buttock pain [M79.18] 03/21/2015 Pain in right hip [M25.551] 03/21/2015 Greater trochanteric bursitis of right hip [M70*03/21/2015 Iron deficiency anemia, unspecified [D50.9] 11/22/2018 Osteoarthritis of knee [M17.9] 12/05/2018 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] 04/13/2019 Orthostatic hypotension [I95.1] 12/24/2020 Dyspnea on exertion [R06.09] 12/24/2020 Fatigue [R53.83] 12/24/2020 Tinnitus, right ear [H93.11] 03/16/2021 Sensory hearing loss, 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] 03/16/2021 Restless legs syndrome [G25.81] 05/21/2021 Postmenopausal status [Z78.0] 05/21/2021 Mixed anxiety depressive disorder [F41.8] 05/21/2021 Diverticulitis [K57.92] 05/21/2021 Cough [R05.9] 05/21/2021 Chronic pain [G89.29] 05/21/2021 Bruises easily [R23.3] 05/21/2021 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*11/18/2021 Elevated AST (SGOT) [R74.01] 11/18/2021 Dizziness [R42] 11/18/2021 Abnormal weight gain [R63.5] 06/23/2023 Chronic bilateral back pain [M54.9, G89.29] 11/29/2023 Lumbosacral spondylosis with radiculopathy [M47*02/07/2024 Spinal stenosis of lumbar region [M48.061] 06/26/2024 Lumbar radiculopathy [M54.16] 06/26/2024 Constipation [K59.00] 08/21/2024 Encounter Status:Closed by SOFIYA HAYNES on 09/25/24[facility] [id number] Visit (SPNMMN) HOLA DOUGLAS ([id number]) 1945 F Date Time Provider Department 09/11/24 9:40 AM STEVE WAGONER [facility] During your visit today, we recorded the following information about you: Pulse Blood pressure Weight Height 79/minute 121/70 86.2 kg 1.727 m Steve Wagoner MD 09/11/2024 10:21 AM Signed [facility] Established Visit CC: low back pain and lower extremity pain HPI: Ms. Douglas is a pleasant 79 year old female seen in follow-up for LSS, lumbar radiculoapthy, scoliosis. Patient was last seen on 07/12/2024-virtual visit. Please refer to that note for additional details. S/p interlaminar L3-4 ANGELA 08/14/2024. Helped 60-65% and notes only lasted apx 2 weeks. Was able to do more but still limited. Notes greater benefit compared to the R L4-5 TFESI 01/2024. Currently notes low back and L lateral leg pain to the knee. Worse with activities Limiting QOL. Pain is 5-9/10. Lyrica greater benefit than gabapentin-150 mg bid Cymbalta 30 mg once a day Doing HEP. Has appointment to see spine surgeon Prior interventions- R SI joint injection, Dr. Oleary 09/19/2023-no benefit. B SI joint injection 06/08/2023-helped. Lumbar RFAB L4/5 and L5/S1 04/20/2023 which helped and continues to help Allergies: ALLERGIES Allergen Reactions Asa [Salicylates] causes platelet disfunction Aspirin Unknown, Other: See Comments Levaquin [Levofloxa* Rash, Other: See Comments Per pt feels like she on fire Avelox [Moxifloxaci* Intolerance C/O burning feeling on skin Current Outpatient Medications Medication Sig tirzepatide (MOUNJARO) 10 mg/0.5 mL pen injector Inject 10 mg subcutaneously one time a week. citalopram (CELEXA) 20 mg tablet Take 1 tablet by mouth once daily. DULoxetine (CYMBALTA) 30 mg capsule Take 1 capsule by mouth once daily. tobramycin (TOBREX) 0.3 % ophthalmic solution Use 1 drop in the right eye as directed. pregabalin (LYRICA) 150 mg capsule Take 1 capsule by mouth two times a day. fludrocortisone (FLORINEF) 0.1 mg tablet Take 2 tablets by mouth once daily. lancets (TRUEPLUS LANCETS) 33 gauge Use with blood glucose test once daily pravastatin (PRAVACHOL) 10 mg tablet Take 1 tablet by mouth once daily. blood sugar diagnostic (TRUE METRIX GLUCOSE TEST STRIP) test strip Use with blood glucose test once daily Blood-Glucose Meter (TRUE METRIX GLUCOSE METER) 1 Each once daily. ergocalciferol 50,000 unit capsule (VITAMIN D2, DRISDOL) TAKE 1 CAPSULE ONE TIME WEEKLY clonazePAM (KLONOPIN) 0.5 mg tablet Take 1 tablet by mouth as needed. For restless leg syndrome loratadine (CLARITIN) 10 mg tablet Take 10 mg by mouth once daily. fluticasone (FLONASE) 50 mcg/actuation nasal spray Use 2 Sprays in each nostril twice daily. pen needle, diabetic (COMFORT EZ PEN NEEDLES) 33 gauge x 5/16 ndle To inject weekly MULTIVITAMIN (MULTI-DAY ORAL) Take by mouth once daily. calcium carbonate 600 mg-cholecalciferol 200 units (CALCIUM 600 + D,3,) 600 mg(1,500mg) -200 unit tab Take 1 tablet by mouth once daily. No current facility-administered medications for this visit. Physical Examination: BP 121/70 Pulse 79 Ht 5' 8 (1.73m) Wt 190 lb (86.2kg) SpO2 92% BMI 28.90 kg/(m2). General: NAD, pleasant Lungs: Symmetric chest expansion Gait: slightly antalgic on the R Palpation: lumbar tenderness and R trochanteric bursa tenderness Strength: Bilateral LE strength is normal R hip ROM with pain but non-focal Radiological Review: Fluor images Lumbar MRI Hip x-ray Impression: Scoliosis, R chronic lumbar radiculopathy, LSS R trochanteric bursitis Plan: Limited benefit despite extensive non-operative treatment. Would like to pursue surgical opinion. Has apt 09/27. 2. Ongoing HEP and activities as tolerated. Continue cymbalta and lyrica as tolerated. 3. Appears there is an overlap of R trochanteric bursitis. Would like to proceed with bursa injection, will request under image guidance as this potentially diagnostic and therapeutic. 4. Update office 2-4 weeks after. The patient is instructed to call/seek urgent medical care with worsening pain or change of neurological status. There are no barriers to patient education identified. Management options were discussed in detail. The patient is in agreement with the plan as outlined above and verbalized understanding. Tagreed MD Rizwana Phan Tagreed M, MD 09/11/2024 10:10 AM Signed Please update office 2 weeks after injection with update. Steve Wagoner MD Allergies As of Date: 09/11/2024 Noted Allergy Reaction ASA (SALICYLATES) 12/17/2004 Comments: causes platelet disfunction ASPIRIN 08/28/2018 16 - Unknown 14 - Other: See Comments LEVAQUIN (LEVOFLOXACIN) 12/29/2017 2 - Rash 14 - Other: See Comments Comments: Per pt feels like she on fire AVELOX (MOXIFLOXACIN HCL) (more content not included)...NormalAdena Fayette Medical CenterOVon [id number] Visit (ELIZABETH) HOLA DOUGLAS ([id number]) 1945 F Date Time Provider Department 08/29/24 1:15 PM DA KING During your visit today, we recorded the following information about you: Pulse Respiration Blood pressure Weight 83/minute 12/minute 110/60 86.2 kg Height 1.727 m Da King MD 08/29/2024 6:26 PM Signed [facility] [facility] Department of Cardiovascular Medicine SECTION OF CARDIOVASCULAR IMAGING OUTPATIENT VISIT DATE 08/29/2024 OUTPATIENT VISIT TYPE ESTABLISHED PRIMARY CARE PHYSICIAN: Erich Gillis DO [address] [place] [phone] CHIEF COMPLAINT: CV health management visit. HISTORY OF PRESENT ILLNESS: Ms. Douglas is a 79 year old female who presents today for a cardiovascular medicine follow-up visit. She has a past medical history significant for POTS, DM2, HTN, and HLD. Following with neurology. Has still issues with neuropathy. On lyrica. Hypotension and diabetes better. Today, Mrs. Douglas reports that she has been feeling tired, but has had no new cardiac symptoms. From a cardiovascular perspective, pt continues to do well and specifically denies any CP, SOB, palpitations, syncope, orthopnea, LE edema, focal neuro sx, post-prandial abdominal pain, or claudication. PAST CARDIAC HISTORY: SEE HPI PAST MEDICAL HISTORY Diagnosis Date Carpal tunnel syndrome Diverticulosis of colon (without mention of hemorrhage) Hypotension Localized osteoarthrosis not specified whether primary or secondary, hand Mastodynia Other chronic sinusitis Type II or unspecified type diabetes mellitus without mention of complication, uncontrolled Vertigo Current workup PAST SURGICAL HISTORY Procedure Laterality Date ARTHROSCOPY KNEE DIAGNOSTIC W/WO SYNOVIAL BX SPX Left Arthroscopy, knee BIOPSY BREAST OPEN INCISIONAL 1998 needle localization right breast BIOPSY BREAST OPEN INCISIONAL 1996 right breast CARPAL TUNNEL right LAPS ABD PRTMANDOMENTUM DX W/WO SPEC BR/WA SPX Laparoscopy PAST SURGICAL HISTORY OF 06/2023 Bilateral cataract surgery TOTAL ABDOMINAL HYSTERECT W/WO RMVL TUBE OVARY 1992 SOCIAL HISTORY Social History Tobacco Use Smoking status: Never Smokeless tobacco: Never Vaping Use Vaping status: Never Used Substance Use Topics Alcohol use: Not Currently Drug use: No Comment: denies tx for drug/alcohol abuse in the past. ALLERGIES: ALLERGIES Allergen Reactions Asa [Salicylates] causes platelet disfunction Aspirin Unknown, Other: See Comments Levaquin [Levofloxa* Rash, Other: See Comments Per pt feels like she on fire Avelox [Moxifloxaci* Intolerance C/O burning feeling on skin MEDICATIONS: citalopram (CELEXA) 20 mg tablet Take 1 tablet by mouth once daily. DULoxetine (CYMBALTA) 30 mg capsule Take 1 capsule by mouth once daily. tobramycin (TOBREX) 0.3 % ophthalmic solution Use 1 drop in the right eye as directed. tirzepatide (MOUNJARO) 10 mg/0.5 mL pen injector Inject 10 mg subcutaneously one time a week. pregabalin (LYRICA) 150 mg capsule Take 1 capsule by mouth two times a day. fludrocortisone (FLORINEF) 0.1 mg tablet Take 2 tablets by mouth once daily. lancets (TRUEPLUS LANCETS) 33 gauge Use with blood glucose test once daily pravastatin (PRAVACHOL) 10 mg tablet Take 1 tablet by mouth once daily. blood sugar diagnostic (TRUE METRIX GLUCOSE TEST STRIP) test strip Use with blood glucose test once daily Blood-Glucose Meter (TRUE METRIX GLUCOSE METER) 1 Each once daily. ergocalciferol 50,000 unit capsule (VITAMIN D2, DRISDOL) TAKE 1 CAPSULE ONE TIME WEEKLY clonazePAM (KLONOPIN) 0.5 mg tablet Take 1 tablet by mouth as needed. For restless leg syndrome loratadine (CLARITIN) 10 mg tablet Take 10 mg by mouth once daily. fluticasone (FLONASE) 50 mcg/actuation nasal spray Use 2 Sprays in each nostril twice daily. pen needle, diabetic (COMFORT EZ PEN NEEDLES) 33 gauge x 5/16 ndle To inject weekly calcium carbonate 600 mg-cholecalciferol 200 units (CALCIUM 600 + D,3,) 600 mg(1,500mg) -200 unit tab Take 1 tablet by mouth once daily. MULTIVITAMIN (MULTI-DAY ORAL) Take by mouth once daily. REVIEW OF SYSTEMS: POSITIVES IN BOLD GENERAL: Negative for: Weight loss or gain, Fever or Chills, Weakness and Sleep difficulties. HEENT: Negative for: Headache, Impaired Vision, Glasses, Hearing Impairment, Ringing in Ears, Nosebleeds, Poor dental care, Bleeding Gums, Dentures NECK: Negative for: Swelling, Pain, Stiffness CARDIOVASCULAR: SEE HPI RESPIRATORY: Negative for: Cough, Blood in Sputum, Shortness of breath, Wheezing, Apnea GASTROINTESTINAL: Negative for: Trouble swallowing, Heartburn, Change in bowel habits, Blood in stool, Dark black stools MUSCULOSKELETAL: Negative for: Muscle or joint pain, Stiffness, (more content not included)...[facility] EchocardiographyEchocardiography Report: Transthoracic Echo [facility] J1-5 Date of service: 08/29/2024 10:58:57 AM MAKER Ordering physician: DA KING Indication: POTS Technologist: Francisco Javier Hawk Interpreting physician: Rubio Bonner MD PATIENT: Name: MRS. HOLA DOUGLAS : 1945 Age: 79 years Gender: F History of hypertension, diabetes mellitus, dyslipidemia and arrhythmia. Primary rhythm: sinus. Height: 172.70 cm BSA: 2.00 m Weight: 83.50 kg BMI: 28.0 kg/m Heart rate 70 bpm Blood pressure 120/59 mmHg Technically difficult exam due to body habitus. Color Doppler was utilized to interrogate the cardiac valves assessed and spectral Doppler was utilized to determine the flow velocities and pressure gradients reported in this exam. MEASUREMENTS: Value Indexed Normal Max aortic dimension 3.7 cm Ao < 3.8 Left atrial volume 32 ml (Barr's) 16 ml/m Maddi <= 34 LV ID (diastole) 3.1 cm (2D) 1.55 cm/m LV ID (systole) 1.9 cm (2D) 0.95 cm/m IVS, leaflet tips 0.9 cm (2D) Posterior wall thickness 0.9 cm (2D) Left ventricular mass 74 g (2D) 37 g/m LV stroke volume 36 ml (2D biplane) LV end diastolic volume 58 ml (2D biplane) 29.0 ml/m 29<=EDVi<62 LV end systolic volume 22 ml (2D biplane) 11.0 ml/m Ejection Fraction 62 % (2D biplane) EF > 54 FINDINGS: LEFT VENTRICLE The left ventricle is normal in size. Left ventricular systolic function is normal. Normal left ventricular diastolic function. Mitral annular lateral E/e': 8.4. Mitral annular septal E/e': 12.8. Wall Motion: All scored segments are normal. RIGHT VENTRICLE The right ventricle is normal in size. Right ventricular systolic function is normal. RV systolic tissue Doppler velocity is 12.1 cm/s. Tricuspid annular displacement is 2.6 cm. Estimated right ventricular systolic pressure is not reported due to an insufficient tricuspid regurgitation signal. Estimated right atrial pressure is 3 mmHg based on IVC assessment. LEFT ATRIUM The left atrial cavity is normal in size. Pulmonary Veins: The pulmonary venous pattern showed normal systolic flow. RIGHT ATRIUM The right atrial cavity is normal in size. Inferior Vena Cava: The inferior vena cava appears normal measuring 1.6 cm. The vessel decreases greater than 50 percent with inspiration. MITRAL VALVE The mitral valve leaflets are structurally normal. There is trace mitral valve regurgitation. The pressure half time is 83 msec. The peak mitral E/A ratio is 0.74. The average mitral E/e' ratio is 10.6. The mitral flow deceleration time is 287 msec. TRICUSPID VALVE The tricuspid valve leaflets are structurally normal. There is trace tricuspid valve regurgitation. AORTIC VALVE The aortic valve cusps are structurally normal. There is mild (1+) aortic valve regurgitation. Tricuspid aortic valve. The peak gradient is 5 mmHg (peak velocity = 116.0 cm/s). PULMONIC VALVE The pulmonic valve cusps are structurally normal. There is trace pulmonic valve regurgitation. AORTA The visualized aorta is normal in size. Measurements - Sinus: 3.6 cm. Sinotubular junction 3.0 cm. Mid ascending aorta 3.7 cm. INTERATRIAL SEPTUM There is no evidence of intracardiac shunting as detected by Doppler. INTERVENTRICULAR SEPTUM There is no flow through the interventricular septum as detected by Doppler. PERICARDIUM There is no pericardial effusion. There is an epicardial fat pad. CONCLUSIONS: - Technically difficult exam due to body habitus. - Exam indication: POTS - The left ventricle is normal in size. Left ventricular systolic function is normal. EF = 62 5% (2D biplane) - The right ventricle is normal in size. Right ventricular systolic function is normal. - There are no significant valvular abnormalities. - Exam was compared with the prior CC echocardiographic exam performed on 07/18/2023. No significant changes. * * * Final * * * CC [facility] [facility] : [id number] [facility] CenterPNon [id number] (ENDOAV) HOLA DOUGLAS ([id number]) 1945 F Date Time Provider Department 08/27/24 LORRAINE ONEILL During your visit today, we recorded the following information about you: Kristie Cervantes 08/27/2024 4:59 PM Signed Pt states that tirzepatide should have went to [facility] [place] in [place] on . Patient has been identified by name and birthdate. Duration of symptoms: N/A Person calling: self Call patient at: on cell [phone] (home) [phone] (cell) Was an appointment scheduled: No Closing statement: Results or non-symptom based questions: Thank you for calling [facility], your call will be returned within the next business day. Edith Granados MA 08/28/2024 12:01 PM Signed Pharmacy updated. Most recent Endocrinology visit: Last encounter Visit on 08/21/2024 (with Lorraine Oneill) 12/23/2022 in [facility] with LORRAINE ONEILL for Well controlled type 2 diabetes mellitus with neurological manifestations (HCC) 05/02/2023 in [facility] with KARL COOK for Type 2 diabetes mellitus with stage 3a chronic kidney disease, without long-term current use of insulin (HCC) 06/23/2023 in [facility] with LORRAINE ONEILL for Type 2 diabetes mellitus with stage 3a chronic kidney disease, without long-term current use of insulin (HCC) 10/26/2023 in [facility] with KARL COOK for Type 2 diabetes mellitus with stage 3a chronic kidney disease, without long-term current use of insulin (HCC) 01/19/2024 in [facility] with LORRAINE ONEILL for Type 2 diabetes mellitus with stage 3a chronic kidney disease, without long-term current use of insulin (HCC) 06/25/2024 in [facility] with KARL COOK for Type 2 diabetes mellitus with stage 3a chronic kidney disease, without long-term current use of insulin (HCC) 08/21/2024 in [facility] with LORRAINE ONEILL for Type 2 diabetes mellitus with stage 3a chronic kidney disease, without long-term current use of insulin (HCC) Upcoming Endocrinology Appointments - Next 365 Days Visit Type Date Time Department EST SORAYA PATIENT 10/17/2024 11:00 AM ENDO DIAB [facility] EST SORAYA PATIENT 01/18/2025 11:00 AM ENDO [facility] EST SORAYA PATIENT 08/21/2025 2:40 PM [facility] Requested Prescriptions Pending Prescriptions Disp Refills tirzepatide (MOUNJARO) 10 mg/0.5 mL pen injector 2 mL 5 Sig: Inject 10 mg subcutaneously one time a week. Latest Ref Rng AND Units 07/23/2024 05/11/2024 01/19/2024 Hemoglobin A1C Hemoglobin A1C 4.3 - 5.6 % 6.4 6.5 Hemoglobin A1C (POCT) 4.3 - 5.6 % 6.8 Latest Ref Rng AND Units 07/23/2024 05/11/2024 10/06/2023 TSH TSH 0.270 - 4.200 mIU/L 3.430 4.560 4.320 Free T3: None on file in the last 12 months Latest Ref Rng AND Units 10/06/2023 12/21/2022 10/06/2022 FREE T4 Free T4 0.9 - 1.7 ng/dL 1.1 1.0 0.9 Thyroglobulin: None on file in the last 12 months Vitamin D: None on file in the last 12 months Hematocrit: None on file in the last 12 months Latest Ref Rng AND Units 07/23/2024 05/11/2024 10/06/2023 Creatinine Creatinine 0.58 - 0.96 mg/dL 1.06 1.20 1.14 Latest Ref Rng AND Units 07/23/2024 05/11/2024 10/06/2023 eGFR EGFR >=60 mL/min/1.73m? 54 47 50 Latest Ref Rng AND Units 07/23/2024 05/11/2024 10/06/2023 Potassium Potassium 3.7 - 5.1 mmol/L 4.0 4.4 4.6 Testosterone: None on file in the last 12 months IGF: None on file in the last 12 months Prolactin: None on file in the last 12 months Lorraine Oneill MD 08/29/2024 9:34 PM Signed The following approved medication requests have been transmitted electronically. Requested Prescriptions Signed Prescriptions Disp Refills tirzepatide (MOUNJARO) 10 mg/0.5 mL pen injector 2 mL 5 Sig: Inject 10 mg subcutaneously one time a week. Authorizing Provider: LORRAINE ONEILL MD, MAE Allergies As of Date: 08/27/2024 Noted Allergy Reaction ASA (SALICYLATES) 12/17/2004 Comments: causes platelet disfunction ASPIRIN 08/28/2018 16 - Unknown 14 - Other: See Comments LEVAQUIN (LEVOFLOXACIN) 12/29/2017 2 - Rash 14 - Other: See Comments Comments: Per pt feels like she on fire AVELOX (MOXIFLOXACIN HCL) 06/03/2011 5 - Intolerance Comments: C/O burning feeling on skin Date Reviewed: 08/21/2024 Reviewed by: Lupe Price MA - Fully Assessed Reason for Visit: Patient Question [1477] Visit Diagnosis:Type 2 diabetes mellitus with stage 3a chronic kidney disease, without long-term current use of insulin (HCC) [E11.22, N18.31] Order(s):tirzepatide (MOUNJARO) 10 mg/0.5 mL pen injectorInject 10 mg subcutaneously one time a week.Disp: 2 mLRfl: 5 Prescriptions as of 08/29/2024 - tirzepatide (MOUNJARO) 10 mg/0.5 mL pen injector Inject 10 mg subcutaneously one time a week. - citalopram (CELEXA) 20 mg tablet Take 1 tablet by mouth once daily. - DULoxetine (CYMBALTA) 30 mg capsule Take 1 capsule by mouth once daily. - tobramy (more content not included)...[facility] Summaryon [id number] Visit SummaryAmbulatory Visit Summary HOLA DOUGLAS :1945 Visit Date:08/21/2024 Ambulatory Visit Instructions Your Diagnosis Postinfective urethral stricture in female Your Care Team Attending Physician - Ryan LIVE MD Primary Care Physician - ERICH GILLIS DO This Is Your Medications List Contact prescribing physician if questions or concerns calcium carbonate (calcium (as carbonate) 600 mg oral tablet) calcium-vitamin D (Calcium 600+D) cetirizine (Zyrtec) citalopram (Celexa) clonazepam (ClonazePAM 0.5 mg Tab) ergocalciferol (Vitamin D) fludrocortisone (fludrocortisone 0.1 mg Tab) gabapentin multivitamin with minerals (Multivitamins and Minerals) pravastatin (pravastatin 20 mg Tab) tirzepatide (Mounjaro 7.5 mg/0.5 mL subcutaneous solution) Procedures Performed Injection of sacroiliac joint using fluoroscopic guidance (09/19/2023), Injection of sacroiliac joint using fluoroscopic guidance (06/08/2023), Radiofrequency ablation of nerve root of lumbar spine using fluoroscopic guidance (04/20/2023), Injection into facet joint of lumbar spine using fluoroscopic guidance (02/28/2023), Left wrist (11/2022), Injection of sacroiliac joint using fluoroscopic guidance (11/08/2022), Trigger point (08/12/2022), Epidural injection of lumbar spine using fluoroscopic guidance (12/07/2021), Left hip (06/15/2021), UD - Urethral dilatation (03/27/2020), UD - Urethraldilatation (09/01/2018), UD - Urethral dilatation (11/28/2017), Cystoscope (02/07/2017), Carpal tunnel, Closed fracture of left foot, Injection of facet joint using fluoroscopic guidance. Discharge Vitals Heart Rate (Peripheral) 76 Respiratory Rate 18 Blood Pressure 118/52 Height 172 cm Height 68 in Weight 88.0 kg Weight 194.007 lb BMI 29.75 What to do next Scheduled Follow-Up Appointments 2024 10:20 AM EST With: ROSEMARY Rodas APRN, Yu Torre Where: [facility] [address] [place] [address] [place] [address]- You Need to Schedule the Following Appointments Follow Up with HIRO BRICENO, Ryan Holland, ANGELO When: Where: [address] [place] [phone]- Medications What How Much When Instructions Unchanged calcium carbonate (calcium (as carbonate) 600 mg oral tablet) 1 Tablets By Mouth 2 times a day Contact prescribing physician if questions or concerns Unchanged calcium-vitamin D (Calcium 600+D) By Mouth Every day Contact prescribing physician if questions or concerns Unchanged cetirizine (Zyrtec) Contact prescribing physician if questions or concerns Unchanged citalopram (Celexa) 10 Milligram By Mouth Every day Contact prescribing physician if questions or concerns Unchanged clonazepam (ClonazePAM 0.5 mg Tab) 0.5 Tablets By Mouth Once a day (at bedtime) as neededfor Leg cramps Contact prescribing physician if questions or concerns Unchanged ergocalciferol (Vitamin D) 50,000 International unit By Mouth Every week Contact prescribing physician if questions or concerns Unchanged fludrocortisone (fludrocortisone 0.1 mg Tab) 1 Tablets By Mouth 2 times a day Contact prescribing physician if questions or concerns Unchanged gabapentin See instructions 300mg qam, q noon, 3 tabs 300 mg Oral at bedtime Contact prescribing physician if questions or concerns Unchanged multivitamin with minerals (Multivitamins and Minerals) 1 tab By Mouth Every day Contact prescribing physician if questions or concerns Unchanged pravastatin (pravastatin 20 mg Tab) 1 Tablets By Mouth Every day Contact prescribing physician if questions or concerns Unchanged tirzepatide (Mounjaro 7.5 mg/ 0.5 mL subcutaneous solution) 7.5 Milligram Contact prescribing physician if questions or concerns Allergies Avelox (Itching, Burning) Levaquin (Itching, Burning vapor) aspirin (Unknown) Problems Ongoing - Any problem that you are currently receiving treatment for. At risk for falls Hesitancy Mixed incontinence Nocturia Postinfective urethral stricture in female Type 2 diabetes mellitus Urgency of urination Weak urine stream Historical - Any problem that you are no longer receiving treatment for. Colonoscopy Hysterectomy Lumpectomy of breast Patient Survey You may receive a survey via text or e-mail asking about your office visit. Please share your experience with us by completing your survey. We appreciate your feedback and thank you for choosing us for your care. Education Materials Urethral Dilation Urethral dilation is a procedure to stretch open (dilate) the urethra. The urethra is the tube thatdrains pee (urine) from the bladder out of the body. In females, the urethra opens above the vaginal opening. In males, the urethra opens at the tip of the penis. Urethral dilation is usually done to treat narrowing of the urethra (urethral stricture), which canmake it difficult to pee (more content not included)... [facility] CenterCNOVon [id number] Visit (ENDOAV) STELLAHOLA ([id number]) 1945 F Date Time Provider Department 08/21/24 3:00 PM LORRAINE ONEILL During your visit today, we recorded the following information about you: Pulse Blood pressure Weight 80/minute 110/74 88 kg Lorraine Oneill MD 08/21/2024 4:57 PM Signed [facility] Endocrinology Department Today's Visit Information Reason for Visit: Diabetes Visit Type: Follow Up - Consultation Chief Complaint: Other CC Other: Patient is presenting for routine follow up. She is mainly concerned about her weight. She is now on Mounjaro 7.5 mg weekly, she has been on this dosage since June 25, 2024. She has no nausea, vomiting, no frequent defecation. She has constipation. She uses a stool softener, inadequately treated. She is no longer taking nateglinide. Patient noted no worsening of constipation with Mounjaro. Patient has regained 34 lb since July, (prior weight loss was contributed by illness, Flu). Patient has sciatica pain. She had steroid injections in June and again last week. Average 14 days blood glucose is 126 mg/dl (0.3 reading per day) Range of glucose levels is between 102- to 144 mg/dl Diabetes History Patient age (years) when first diagnosed with Diabetes: 61 Diabetes Type: DM Type 2 Diabetes Related Complications: Microvascular Microvascular Complications: Neuropathy, Nephropathy Neuropathy Details: Peripheral Nephropathy Details: CKD - Stage 3 Related Comorbidities: Hyperlipidemia, Other - Specify DM meds previously tried and discontinued: Metformin Specify Reason(s) for discontinuation: diarrrhea Insulin Treatment was: Never used Nutrition/Diet Summary Patient Current Diet: Other - Specify Specify Diet: She is following with dietitian Number of Meals per day: Three Number of Snacks per day/week: Per Day - Specify Number of snacks per day - Specify: 2 Exercise Summary Patient exercise routine: Other - Specify Exercise routine - Specify: Sciatica pain. Blood Glucose (BG) Monitoring Monitoring Frequency: Per week - Specify Weekly Monitoring - Specify: 2 Blood Glucose Summary/Pattern CGM Summary Patient Uses Personal CGM: No Current issues with Glycemic Control Primary problem(s) patient has with glycemic control include(s): No significant problem, No Hypoglycemia Dilated Retinal Exam Dilated Retinal Exam: Other - Specify Dilated Retinal Exam - Specify: She had cataract surgery around Feb, 2024, she is going to have a dilated eye exam after removing the second cataract. Pertinent ROS Patient reports Polyuria: No Patient reports Nocturia: Yes (Comment: She was seen by urology earlier today) Nocturia details (per night): 2 Patient reports Polydipsia: No Patient reports excess hunger: No Weight loss/gain: Non Intentional weight gain Current Medications 08/21/2024 DIABETES THERAPIES Medication Dosage Pharm Subclass tirzepatide (MOUNJARO) 7.5 mg/0.5 mL pen injector Inject 7.5 mg subcutaneously one time a week. Antihyperglycemic - Dual GIP and GLP-1 Receptor Agonists CARDIOVASCULAR Medication Dosage Pharm Subclass pravastatin (PRAVACHOL) 10 mg tablet Take 1 tablet by mouth once daily. Antihyperlipidemic - HMG CoA Reductase Inhibitors (statins) OTHER Medication Dosage Pharm Subclass blood sugar diagnostic (TRUE METRIX GLUCOSE TEST STRIP) test strip Use with blood glucose test once daily Medical Supplies and DME - Blood Glucose Tests Blood-Glucose Meter (TRUE METRIX GLUCOSE METER) 1 Each once daily. Medical Supplies and DME - Glucose Monitoring Test Supplies Blood-Glucose Sensor ([employer] G7 SENSOR) nimesh Change sensor every 10 days. Medical Supplies and DME - Glucose Monitoring Test Supplies calcium carbonate 600 mg-cholecalciferol 200 units (CALCIUM 600 + D,3,) 600 mg(1,500mg) -200 unit tab Take 1 tablet by mouth once daily. Minerals and Electrolytes - Calcium Replacement/Vitamin D Combinations clonazePAM (KLONOPIN) 0.5 mg tablet Take 1 tablet by mouth as needed. For restless leg syndrome Antianxiety Agent - Benzodiazepines ergocalciferol 50,000 unit capsule (VITAMIN D2, DRISDOL) TAKE 1 CAPSULE ONE TIME WEEKLY Vitamins - D Derivatives fludrocortisone (FLORINEF) 0.1 mg tablet Take 2 tablets by mouth once daily. Mineralocorticoids fluticasone (FLONASE) 50 mcg/actuation nasal spray Use 2 Sprays in each nostril twice daily. Nasal Corticosteroids lancets (TRUEPLUS LANCETS) 33 gauge Use with blood glucose test once daily Medical Supplies and DME - Glucose Monitoring Test Supplies loratadine (CLARITIN) 10 mg tablet Take 10 mg by mouth once daily. Antihistamines - 2nd Generation MULTIVITAMIN (MULTI-DAY ORAL) Take by mouth once daily. Multivitamins pen needle, diabetic (COMFORT EZ PEN NEEDLES) 33 gauge x 5/16 ndle To inject weekly Medical Supplies and DME - Insulin Needl (more content not included)...[facility] HospitalGLOOKO ON DEMANDon [id number] by an unspecified provider.[facility] Office/Clinic Noteon [id number] Office/Clinic NoteUrology Office/Clinic Note Chief Complaint IO UD HPI Staff 7 month follow up w/IO UD Previous DX: hesitancy, mixed incontinence, nocturia, postinfective stricture, urgency of urination, weak urinary stream Pt unable to give urine sample today History of Present Illness Tests reviewed: I have reviewed the previous health record information and history for this patient from Dr. Live. I have reviewed and verified the staff HPI to be accurate for this encounter. Review of Systems PHQ Score Initial Depression Screen Score: 0 SCORE ROS - Provider Constitutional: denies weight loss, denies hot flashes. Eyes: denies eye problems. Gastrointestinal: denies nausea, denies vomiting. Cardiovascular: denies chest pain or angina. Integumentary: no dryness Musculoskeletal: denies musculoskeletal symptoms. ENMT: denies otolaryngeal symptoms. Respiratory: no shortness of breath. Heme/Lymph: denies easy bleeding tendency, denies easy bruising tendency. Psychiatric: no confusion, no anxiety. Genitourinary: See HPI. Physical Exam Vitals & Measurements HR: 76(Peripheral) RR: 18 BP: 118/52 HT: 68 in HT: 172 cm WT: 88.0 kg WT: 194.007 lb BMI: 29.75 General Appearance: alert, no distress, well nourished, well developed female. Procedure Operative Information Anesthesia Type: Local Procedure: Local Urethral Dilation Complications: None Surgical risks, benefits, details of the procedure have been explained to the patient. Full informed consent has been obtained. Intraoperative Information Prepped: Patient is brought back to the endoscopy suite. Patient is placed in modified dorso/lithotomy position. Patient prepped in the usual fashion with Betadine solution. 2% Xylocaine Jelly is placed per Urethra. The Urethra is: _Tight maybe at 20 Fr, not a very narrow channel. The Urethra was dilated to: 16-30 Gib[place] with sounds. Specimens Removed: None Postoperative Information Patient is discharged home. Follow up arranged. Assessment/Plan 1. Postinfective urethral stricture in female (N35.12: Postinfective urethral stricture, not elsewhere classified, female) Prior UDs: 02/06/24, 07/26/23, 01/12/23, 03/27/20, 09/01/18. Pt unable to provide urine sample today. Pt had IO UD today wo complications. Follow up 6 mos for IO UD or sooner if needed. Pt understands and agrees with plan. Overall the patient tolerates urethral dilatation quite well having tight urethra at about 20 Gib[place]tarian. No bleeding upon dilation to 30 Gib[place]tarian. She will monitor symptomatology and see us back in about 6 months. Follow-up With When Contact Information HIRO BRICENO, Ryan Holland, URL [address] [place] [phone]- Additional Instructions: 6 mos for IO UD Patient Education Urethral Dilation I, Brie Gamez, personally scribed for Dr. Live on 08/21/2024 10:13:00. . Documentation recorded by the scribe, Brie Gamez, accurately reflects the services(s) I performed and decisions made by me. Authenticated by Dr. Live on 08/21/2024 10:18:36. Portions of this record may have been created with voice recognition artificial intelligence software, specifically [employer], [employer] and or [employer]. Substitutions may have occurred due to the inherent limitations of voice recognition and artificial intelligence software. Problem List/Past Medical History Ongoing At risk for falls Hesitancy Mixed incontinence Nocturia Postinfective urethral stricture in female Type 2 diabetes mellitus Urgency of urination Weak urine stream Historical Colonoscopy Hysterectomy Lumpectomy of breast Procedure/Surgical History Injection of sacroiliac joint using fluoroscopic guidance (09/19/2023), Injection of sacroiliac joint using fluoroscopic guidance (06/08/2023), Radiofrequency ablation of nerve root of lumbar spine using fluoroscopic guidance (04/20/2023), Injection into facet joint of lumbar spine using fluoroscopic guidance (02/28/2023), Left wrist (11/2022), Injection of sacroiliac joint using fluoroscopic guidance (11/08/2022), Trigger point (08/12/2022), Epidural injection of lumbar spine using fluoroscopic guidance (12/07/2021), Left hip (06/15/2021), UD - Urethral dilatation (03/27/2020), UD - Urethraldilatation (09/01/2018), UD - Urethral dilatation (11/28/2017), Cystoscope (02/07/2017), Carpal tunnel, Closed fracture of left foot, Injection of facet joint using fluoroscopic guidance. Medications calcium (as carbonate) 600 mg oral tablet, 600 mg= 1 tab(s), Oral, BID Calcium 600+D, Oral, Daily Celexa, 10 mg, Oral, Daily ClonazePAM 0.5 mg Tab, 0.25 mg= 0.5 tab(s), Oral, Once a day (at bedtime), PRN fludrocortisone 0.1 mg Tab, 0.1 mg= 1 tab(s), Oral, BID gabapentin, See Instructions Mounjaro 7.5 mg/0.5 mL subcutaneous solution, 7.5 mg Multivitamins and Minerals, 1 tab, Oral, Daily pravastatin 20 m (more content not included)...[facility] Comment on above:Result Comment: Electronically Signed By: Ryan LIVE MD\.br\Date and Time Signed: 08/21/24 10:19 EDT\.br\Electronically Co-Signed By: Brie Gamez\.br\Date and Time Co-Signed: 08/21/24 10:17 EDTCNPNon [id number] (SPNSMN) HOLA DOUGLAS ([id number]) 1945 F Date Time Provider Department 08/16/24 ZKA COHENMN During your visit today, we recorded the following information about you: Sofiya Haynes LPN 08/16/2024 6:19 PM Signed Post Spine Injection phone call: 08/16/24 Patient denies fever, chills, new headache, prolonged numbness nor exacerbation of pain status. Injection site(s) flat and dry with no redness nor drainage. Pre Procedure Pain level: 3, but can get to 8 Immediately Post Procedure 1-2 Pain level today 1 (0 = none - 10 = extreme) Percentage of pain relief: 90% Blood Glucose monitoring: patient states she has not checked her sugars today August 16, 2024 Patient encouraged to monitor blood glucose for next 24 -48 for elevations. Patient verbalized understanding that it may take up to 14 days to realize full benefit of spinal injection. Patient is scheduled with Dr. Wagoner on 09/11/24. Patient reminded to bring pain diary to follow appointment. Patient does not have any questions or concerns. Patient will call office with any questions or concerns. Allergies As of Date: 08/16/2024 Noted Allergy Reaction ASA (SALICYLATES) 12/17/2004 Comments: causes platelet disfunction ASPIRIN 08/28/2018 16 - Unknown 14 - Other: See Comments LEVAQUIN (LEVOFLOXACIN) 12/29/2017 2 - Rash 14 - Other: See Comments Comments: Per pt feels like she on fire AVELOX (MOXIFLOXACIN HCL) 06/03/2011 5 - Intolerance Comments: C/O burning feeling on skin Date Reviewed: 08/14/2024 Reviewed by: Raymond Cantu, RN - Fully Assessed Reason for Visit: Follow Up Phone Call [[phone]] Cmt: Post Injection Prescriptions as of 08/16/2024 - nateglinide (STARLIX) 60 mg tablet Take 1 tablet by mouth three times a day before meals for 4 days. Start after your steroid injection. - tirzepatide (MOUNJARO) 7.5 mg/0.5 mL pen injector Inject 7.5 mg subcutaneously one time a week. - Blood-Glucose Sensor (DEXCOM G7 SENSOR) nimesh Change sensor every 10 days. - fludrocortisone (FLORINEF) 0.1 mg tablet Take 2 tablets by mouth once daily. - lancets (TRUEPLUS LANCETS) 33 gauge Use with blood glucose test once daily - pravastatin (PRAVACHOL) 10 mg tablet Take 1 tablet by mouth once daily. - blood sugar diagnostic (TRUE METRIX GLUCOSE TEST STRIP) test strip Use with blood glucose test once daily - Blood-Glucose Meter (TRUE METRIX GLUCOSE METER) 1 Each once daily. - ergocalciferol 50,000 unit capsule (VITAMIN D2, DRISDOL) TAKE 1 CAPSULE ONE TIME WEEKLY - clonazePAM (KLONOPIN) 0.5 mg tablet Take 1 tablet by mouth as needed. For restless leg syndrome - loratadine (CLARITIN) 10 mg tablet Take 10 mg by mouth once daily. - fluticasone (FLONASE) 50 mcg/actuation nasal spray Use 2 Sprays in each nostril twice daily. - pen needle, diabetic (COMFORT EZ PEN NEEDLES) 33 gauge x 5/16 ndle To inject weekly - MULTIVITAMIN (MULTI-DAY ORAL) Take by mouth once daily. - calcium carbonate 600 mg-cholecalciferol 200 units (CALCIUM 600 + D,3,) 600 mg(1,500mg) -200 unit tab Take 1 tablet by mouth once daily. Problem List As Of Date 08/16/2024 Noted Resolved Lesion of ulnar nerve [G56.20] 12/15/2004 11/10/2018 Pain in limb [M79.609] 12/15/2004 11/10/2018 ABNORMAL FINDINGS-BREAST [793.8] 12/17/2004 LOC OSTEOARTH NOS-HAND [M19.049] 12/29/2004 CARPAL TUNNEL SYNDROME [G56.00] 06/01/2005 Type 2 diabetes mellitus with stage 3a chronic *06/15/2007 MIXED HYPERLIPIDEMIA [E78.2] 06/15/2007 Bursitis of hip [M70.70] 04/18/2013 Vitamin D insufficiency [E55.9] 01/11/2014 Right buttock pain [M79.18] 03/21/2015 Pain in right hip [M25.551] 03/21/2015 Greater trochanteric bursitis of right hip [M70*03/21/2015 Iron deficiency anemia, unspecified [D50.9] 11/22/2018 Osteoarthritis of knee [M17.9] 12/05/2018 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] 04/13/2019 Orthostatic hypotension [I95.1] 12/24/2020 Dyspnea on exertion [R06.09] 12/24/2020 Fatigue [R53.83] 12/24/2020 Tinnitus, right ear [H93.11] 03/16/2021 Sensory hearing loss, 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] 03/16/2021 Restless legs syndrome [G25.81] 05/21/2021 Postmenopausal status [Z78.0] 05/21/2021 Mixed anxiety depressive disorder [F41.8] 05/21/2021 Diverticulitis [K57.92] 05/21/2021 Cough [R05.9] 05/21/2021 Chronic pain [G89.29] 05/21/2021 Bruises easily [R23.3] 05/21/2021 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*11/18/2021 Elevated AST (SGOT) [R74.01] 11/18/2021 Dizziness [R42] 11/18/2021 Abnormal weight gain [R63.5] 06/23/2023 Chronic bilateral back pain [M54.9, G89.29] 11/29/2023 Lumbosacral spondylosis with radiculopathy [M47*02/07/2024 Spinal stenosis of lumbar region [M48.061] 06/26/2024 Lumbar radiculopathy [M54.16] 06/26/2024 Encounter Status:Closed by SOFIYA HAYNES on 08/16/24[facility]1000019on [id number] ID: [id number] Author: RAYMOND CANTU RN Service: ? Author Type: Registered Nurse Type: [id number] Filed: 08/14/2024 10:22 Note Text: [facility] Post-Procedure Pain Diary- Group 2 You MUST bring this diary with you to your follow-up appointment Date: ____/____/____ Injection Time: am/pm Draw where your pain is BEFORE the procedure Please indicate your pain level BEFORE the procedure At Rest 0 1 2 3 4 5 6 7 8 9 10 With Movement 0 1 2 3 4 5 6 7 8 9 10 Additional Comments? POST- PROCEDURE Pain Diary * Please score pain only for the area of pain treated with this procedure * 30 minutes after procedure At Rest With Movement 0 1 2 3 4 5 6 7 8 9 10 0 1 2 3 4 5 6 7 8 9 10 % Improvement 0 20 40 60 80 100 Comments: 1 hour after procedure At Rest With Movement 0 1 2 3 4 5 6 7 8 9 10 0 1 2 3 4 5 6 7 8 9 10 % Improvement 0 20 40 60 80 100 Comments: 2 hours after procedure At Rest With Movement 0 1 2 3 4 5 6 7 8 9 10 0 1 2 3 4 5 6 7 8 9 10 % Improvement 0 20 40 60 80 100 Comments: 3 hours after procedure At Rest With Movement 0 1 2 3 4 5 6 7 8 9 10 0 1 2 3 4 5 6 7 8 9 10 % Improvement 0 20 40 60 80 100 Comments: 4 hours after procedure At Rest With Movement 0 1 2 3 4 5 6 7 8 9 10 0 1 2 3 4 5 6 7 8 9 10 % Improvement 0 20 40 60 80 100 Comments: 5 hours after procedure At Rest With Movement 0 1 2 3 4 5 6 7 8 9 10 0 1 2 3 4 5 6 7 8 9 10 % Improvement 0 20 40 60 80 100 Comments: 6 hours after procedure At Rest With Movement 0 1 2 3 4 5 6 7 8 9 10 0 1 2 3 4 5 6 7 8 9 10 % Improvement 0 20 40 60 80 100 Comments: 1 week after procedure At Rest With Movement 0 1 2 3 4 5 6 7 8 9 10 0 1 2 3 4 5 6 7 8 9 10 % Improvement 0 20 40 60 80 100 Comments: 2 weeks after procedure At Rest With Movement 0 1 2 3 4 5 6 7 8 9 10 0 1 2 3 4 5 6 7 8 9 10 % Improvement 0 20 40 60 80 100 Comments:NormalThe Surgical Hospital at SouthwoodsTORY PHYSICALon [id number] PHYSICALHNO ID: [id number] Author: AFRICA BELTRAN APRN.ENVIRONMENTAL ENGINEER SCIENTIST Service: ? Author Type: Nurse Practitioner Type: H&P Filed: 08/14/2024 09:22 Note Text: LOCAL PROCEDURE HISTORY AND PHYSICAL EXAM SERVICE DATE: 08/14/2024 SERVICE TIME: 9:21 AM Provisional Diagnosis/Treatment Plan: Procedure(s) (LRB): SACRAL(CAUDAL) EPIDURAL BLOCK W/INJECTION NON NEUROLYTIC W/IMAGE GUIDANCE (Right) Subjective HPI: This is a 79 year old year old female who presents with Lumbosacral spondylosis with radiculopathy [M47.27] Spinal stenosis of lumbar region, unspecified whether neurogenic claudication present [M48.061] Has elected for above procedure. MEDICATIONS: Prior to Admission medications as of 08/14/24 0845 Medication Sig Last Dose Taking tirzepatide (MOUNJARO) 7.5 mg/0.5 mL pen injector Inject 7.5 mg subcutaneously one time a week. 08/13/2024 Yes fludrocortisone (FLORINEF) 0.1 mg tablet Take 2 tablets by mouth once daily. 08/13/2024 Yes pravastatin (PRAVACHOL) 10 mg tablet Take 1 tablet by mouth once daily. 08/13/2024 Yes loratadine (CLARITIN) 10 mg tablet Take 10 mg by mouth once daily. 08/13/2024 Yes fluticasone (FLONASE) 50 mcg/actuation nasal spray Use 2 Sprays in each nostril twice daily. 08/14/2024 Morning Yes nateglinide (STARLIX) 60 mg tablet Take 1 tablet by mouth three times a day before meals for 4 days. Start after your steroid injection. Blood-Glucose Sensor (Phurn[employer] G7 SENSOR) nimesh Change sensor every 10 days. lancets (TRUEPLUS LANCETS) 33 gauge Use with blood glucose test once daily blood sugar diagnostic (TRUE METRIX GLUCOSE TEST STRIP) test strip Use with blood glucose test once daily 08/12/2024 Blood-Glucose Meter (TRUE METRIX GLUCOSE METER) 1 Each once daily. 08/12/2024 ergocalciferol 50,000 unit capsule (VITAMIN D2, DRISDOL) TAKE 1 CAPSULE ONE TIME WEEKLY 08/03/2024 clonazePAM (KLONOPIN) 0.5 mg tablet Take 1 tablet by mouth as needed. For restless leg syndrome 07/14/2024 pen needle, diabetic (COMFORT EZ PEN NEEDLES) 33 gauge x 08/24 ndle To inject weekly MULTIVITAMIN (MULTI-DAY ORAL) Take by mouth once daily. 08/03/2024 calcium carbonate 600 mg-cholecalciferol 200 units (CALCIUM 600 + D,3,) 600 mg(1,500mg) -200 unit tab Take 1 tablet by mouth once daily. 08/03/2024 ALLERGIES Allergen Reactions Asa [Salicylates] causes platelet disfunction Aspirin Unknown, Other: See Comments Levaquin [Levofloxa* Rash, Other: See Comments Per pt feels like she on fire Avelox [Moxifloxaci* Intolerance C/O burning feeling on skin Objective PHYSICAL EXAM: The remainder of the physical exam is noncontributory. GENERAL: Alert, no distress, cooperative LUNGS: Lungs clear to auscultation, Good diaphragmatic excursion CARDIAC: Normal S1 and S2; no rubs, murmurs, or gallops BP 108/55 Pulse 75 Temp 36.4 ?C (97.6 ?F) (Temporal) Resp 16 SpO2 95% PAIN ASSESSMENT: PAIN EVALUATION 08/14/2024 0843 Pain Level: 0 Assessment/Plan Active Problems: Lumbosacral spondylosis with radiculopathy [M47.27] Spinal stenosis of lumbar region, unspecified whether neurogenic claudication present [M48.061] Medication and Non-Pharmacologic VTE Prophylaxis/Anticoagulants VTE Prophylaxis: N/A SIGNATURE: Africa Beltran APRN.CNP PATIENT NAME: Hola Douglas DATE: 08/14/2024 TIME: 9:21 AMNormalSelect Medical Specialty Hospital [facility] TrumbullOPERATIVE NOon [id number] NOHNO ID: [id number] Author: ZAK COHEN DO Service: Physical Medicine AND Rehabilitation Author Type: Physician Type: Operative Report Filed: 08/14/2024 10:10 Note Text: PROCEDURE REPORT Surgery/Procedure Date: August 14, 2024 Interventionalist: Zak Cohen DO Procedure(s): L3-4 interlaminar epidural steroid injection Pre-Op/Pre-Procedure Diagnosis: Lumbosacral spondylosis with radiculopathy Post-Op Diagnosis: same SUBJECTIVE: Hola Douglas is a 79 year old female who presents to [facility] ambulatory surgery center for a Lumbar epidural steroid injection. 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 Pain is right low back radiating to right lateral thigh to the knee. Pain is currently 3/10, but gets up to 9/10 at worst. I have reviewed the nurses notes and am aware of the patient's history. OBJECTIVE: Vital signs are documented in the chart by nursing prior to and throughout the procedure. INFORMED CONSENT: Risks, benefits, alternatives and personnel discussed with patient who consents to proceed. A formal sign in and timeout with team members and patient present were performed prior to procedure start/delivery of medication. PROCEDURE: Procedure: Lumbar Epidural Steroid Injection Hola Douglas was transferred to the Procedure Room. After placement of routine monitors (blood pressure, pulse oximetry, and heart rate monitored by dedicated nurse), the procedure was performed in the usual manner. Sedation: No. Start time: 0956 Stop time: 1008 Fluoroscopy time: 32 seconds Level: L3-L4 Technique: Patient positioned prone. Procedure area was prepped with Betadine and draped with sterile coverings. Entry point was identified utilizing fluoroscopic imaging. Entry point was anesthetized with 1% lidocaine. A right paramedian interlaminar approach was used with C-arm guidance. A #18 gauge Touhy needle was inserted and directed to appropriate location within the interlaminar window. Standard loss of resistance technique employed to identify epidural space. Aspiration revealed no blood or cerebrospinal fluid in the loss of resistance syringe. Syringe was removed and no CSF was visualized draining from needle. 2 cc of iohexol contrast was then injected. Fluoroscopic imaging was performed in two views and showed epidural flow pattern. A solution of 1% lidocaine 1.5 cc, preservative free saline 1 cc, and Dexamethasone 15 mg was injected. No paresthesias or pain were experienced. The needle was then removed. Adequate hemostasis was obtained at the needle puncture site. The patient's back was cleaned and a sterile dressing was applied. Patient tolerated the procedure well and was taken conscious and in stable condition to the recovery room for observation. No complications as a result of this procedure. Post procedure precautions and instructions were reviewed with the patient who verbalized understanding. I/primary surgeon/proceduralist performed the procedure alone. No complications were encountered. Estimated blood loss: none Specimens: none Implanted devices: none Drains: none Post procedure physical exam unchanged from pre procedure. Significant findings: Caudal 10 Oblique right 10 for AP Oblique 20 right for trajectory ASSESSMENT: Pre Procedure diagnosis: Lumbosacral spondylosis with radiculopathy Post-Procedure diagnosis: same Pre Procedure Pain Level: same as above Post Procedure Pain Level: As documented in nursing notes and paper chart Purposeful response to verbal or tactile stimulation: Yes PLAN: Patient is to complete post-procedure pain diary and follow up with the ordering provider. Hola Douglas was transferred to the recovery room and is to be discharged home in stable condition. Post op instructions reviewed with patient. Zak Cohen [facility] Centeron [id number] Telephone (SPNSMN) HOLA DOUGLAS ([id number]) 1945 F Date Time Provider Department 08/03/24 ZAK COHENMN During your visit today, we recorded the following information about you: Sofiya Haynes LPN 08/03/2024 4:41 PM Signed Phoned patient and spoke with patient to confirm appointment for Hola Douglas for spine procedure on 08/14/24. Patient notified that [facility] will call patient the night before with the time to arrive for injection. Patient verbalized understanding of the following: -Provided education on spine procedure and answered questions related to spine injection procedure. -Desk Editor is needed to drive patient home: Yes, patient aware [employer] company flatbed driver will need to stay for procedure and drive her home. -NPO 6 hours prior to appointment, ok to take morning medications with sip of water. -Not to take any pain medications the day of injection to see how well injection works. -Do not take any NSAIDs/anti-inflammatories (mobic, ibuprofen, advil, aleve, etc) the day of procedure for all lumbar, hip, and sacroiliac joint procedures. Hold NSAIDs for 1 day prior to procedure for cervical cases. Allergies reviewed: Yes Allergy to IV contrast dye or steroids: No Taking any antiplatelet/anticoagulant (blood thinners): No Taking aspirin 81mg: No Any open wounds/sores?: No Taking Antibiotics?: No Diabetic: Yes , notified that blood sugar will be taken at office and ok to take morning diabetes medication. Patient given number [phone], spine injections schedulers, if there is any need to reschedule/ change appointment during normal business hours. Active MyChart users were informed to read MyChart procedure instructions prior to appointment. AMBULATORY PATIENT EDUCATION TOPIC: SPINE INJECTION PROCEDURE, PRE-INJECTION AND POST- INJECTION INSTRUCTIONS READINESS TO LEARN COGNITIVE ABILITY: ALERT AND ORIENTED MOTIVATION TO LEARN: Eager FAMILY SUPPORT: Unable to assess - Family not present INSTRUCTION PROVIDED TO: Patient PATIENT LEARNS BEST BY: INDIVIDUAL INSTRUCTION FACTORS AFFECTING LEARNING: None PHYSICAL LIMITATIONS AFFECTING LEARNING: None LEARNING RESPONSE METHOD OF INSTRUCTION: TEACH BACK AND INDIVIDUAL INSTRUCTION PATIENT / FAMILY RESPONSE: VERBALIZED UNDERSTANDING OF PRE AND POST INJECTION INSTRUCTIONS Allergies As of Date: 08/03/2024 Noted Allergy Reaction ASA (SALICYLATES) 12/17/2004 Comments: causes platelet disfunction ASPIRIN 08/28/2018 16 - Unknown 14 - Other: See Comments LEVAQUIN (LEVOFLOXACIN) 12/29/2017 2 - Rash 14 - Other: See Comments Comments: Per pt feels like she on fire AVELOX (MOXIFLOXACIN HCL) 06/03/2011 5 - Intolerance Comments: C/O burning feeling on skin Date Reviewed: 06/26/2024 Reviewed by: Terri Willingham RN - Fully Assessed Reason for Visit: Preperations for Procedure Call [Other] Prescriptions as of 08/03/2024 - nateglinide (STARLIX) 60 mg tablet Take 1 tablet by mouth three times a day before meals for 4 days. Start after your steroid injection. - tirzepatide (MOUNJARO) 7.5 mg/0.5 mL pen injector Inject 7.5 mg subcutaneously one time a week. - Blood-Glucose Sensor (Phurn[employer] G7 SENSOR) nimesh Change sensor every 10 days. - fludrocortisone (FLORINEF) 0.1 mg tablet Take 2 tablets by mouth once daily. - lancets (TRUEPLUS LANCETS) 33 gauge Use with blood glucose test once daily - pravastatin (PRAVACHOL) 10 mg tablet Take 1 tablet by mouth once daily. - blood sugar diagnostic (TRUE METRIX GLUCOSE TEST STRIP) test strip Use with blood glucose test once daily - Blood-Glucose Meter (TRUE METRIX GLUCOSE METER) 1 Each once daily. - ergocalciferol 50,000 unit capsule (VITAMIN D2, DRISDOL) TAKE 1 CAPSULE ONE TIME WEEKLY - clonazePAM (KLONOPIN) 0.5 mg tablet Take 1 tablet by mouth as needed. For restless leg syndrome - loratadine (CLARITIN) 10 mg tablet Take 10 mg by mouth once daily. - fluticasone (FLONASE) 50 mcg/actuation nasal spray Use 2 Sprays in each nostril twice daily. - pen needle, diabetic (COMFORT EZ PEN NEEDLES) 33 gauge x 5/16 ndle To inject weekly - MULTIVITAMIN (MULTI-DAY ORAL) Take by mouth once daily. - calcium carbonate 600 mg-cholecalciferol 200 units (CALCIUM 600 + D,3,) 600 mg(1,500mg) -200 unit tab Take 1 tablet by mouth once daily. Problem List As Of Date 08/03/2024 Noted Resolved Lesion of ulnar nerve [G56.20] 12/15/2004 11/10/2018 Pain in limb [M79.609] 12/15/2004 11/10/2018 ABNORMAL FINDINGS-BREAST [793.8] 12/17/2004 LOC OSTEOARTH NOS-HAND [M19.049] 12/29/2004 CARPAL TUNNEL SYNDROME [G56.00] 06/01/2005 Type 2 diabetes mellitus with stage 3a chronic *06/15/2007 MIXED HYPERLIPIDEMIA [E78.2] 06/15/2007 Bursitis of hip [M70.70] 04/18/2013 Vitamin D insufficiency [E55.9] 01/11/2014 Right buttock pain [M79.18] 03/21/2015 Pain in right hip [M25.551] 03/21/2015 Greater trochanteric (more content not included)...NormalSelect Medical Specialty Hospital - TrumbullCNPNon [id number] (JUANMN) HOLA DOUGLAS ([id number]) 1945 F Date Time Provider Department 07/31/24 ZAK COHEN During your visit today, we recorded the following information about you: Sofiya Haynes LPN 07/31/2024 12:00 PM Signed [employer] message sent to patient with Procedure Instructions. Allergies As of Date: 07/31/2024 Noted Allergy Reaction ASA (SALICYLATES) 12/17/2004 Comments: causes platelet disfunction ASPIRIN 08/28/2018 16 - Unknown 14 - Other: See Comments LEVAQUIN (LEVOFLOXACIN) 12/29/2017 2 - Rash 14 - Other: See Comments Comments: Per pt feels like she on fire AVELOX (MOXIFLOXACIN HCL) 06/03/2011 5 - Intolerance Comments: C/O burning feeling on skin Date Reviewed: 06/26/2024 Reviewed by: Terri Willingham, RN - Fully Assessed Reason for Visit: Preperations for Procedure [Other] Cmt: Mychart Prescriptions as of 07/31/2024 - nateglinide (STARLIX) 60 mg tablet Take 1 tablet by mouth three times a day before meals for 4 days. Start after your steroid injection. - tirzepatide (MOUNJARO) 7.5 mg/0.5 mL pen injector Inject 7.5 mg subcutaneously one time a week. - Blood-Glucose Sensor (Phurnace Software G7 SENSOR) nimesh Change sensor every 10 days. - fludrocortisone (FLORINEF) 0.1 mg tablet Take 2 tablets by mouth once daily. - lancets (TRUEPLUS LANCETS) 33 gauge Use with blood glucose test once daily - pravastatin (PRAVACHOL) 10 mg tablet Take 1 tablet by mouth once daily. - blood sugar diagnostic (TRUE METRIX GLUCOSE TEST STRIP) test strip Use with blood glucose test once daily - Blood-Glucose Meter (TRUE METRIX GLUCOSE METER) 1 Each once daily. - ergocalciferol 50,000 unit capsule (VITAMIN D2, DRISDOL) TAKE 1 CAPSULE ONE TIME WEEKLY - clonazePAM (KLONOPIN) 0.5 mg tablet Take 1 tablet by mouth as needed. For restless leg syndrome - loratadine (CLARITIN) 10 mg tablet Take 10 mg by mouth once daily. - fluticasone (FLONASE) 50 mcg/actuation nasal spray Use 2 Sprays in each nostril twice daily. - pen needle, diabetic (COMFORT EZ PEN NEEDLES) 33 gauge x 5/16 ndle To inject weekly - MULTIVITAMIN (MULTI-DAY ORAL) Take by mouth once daily. - calcium carbonate 600 mg-cholecalciferol 200 units (CALCIUM 600 + D,3,) 600 mg(1,500mg) -200 unit tab Take 1 tablet by mouth once daily. 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] 12/15/2004 11/10/2018 Pain in limb [M79.609] 12/15/2004 11/10/2018 ABNORMAL FINDINGS-BREAST [793.8] 12/17/2004 LOC OSTEOARTH NOS-HAND [M19.049] 12/29/2004 CARPAL TUNNEL SYNDROME [G56.00] 06/01/2005 Type 2 diabetes mellitus with stage 3a chronic *06/15/2007 MIXED HYPERLIPIDEMIA [E78.2] 06/15/2007 Bursitis of hip [M70.70] 04/18/2013 Vitamin D insufficiency [E55.9] 01/11/2014 Right buttock pain [M79.18] 03/21/2015 Pain in right hip [M25.551] 03/21/2015 Greater trochanteric bursitis of right hip [M70*03/21/2015 Iron deficiency anemia, unspecified [D50.9] 11/22/2018 Osteoarthritis of knee [M17.9] 12/05/2018 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] 04/13/2019 Orthostatic hypotension [I95.1] 12/24/2020 Dyspnea on exertion [R06.09] 12/24/2020 Fatigue [R53.83] 12/24/2020 Tinnitus, right ear [H93.11] 03/16/2021 Sensory hearing loss, 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] 03/16/2021 Restless legs syndrome [G25.81] 05/21/2021 Postmenopausal status [Z78.0] 05/21/2021 Mixed anxiety depressive disorder [F41.8] 05/21/2021 Diverticulitis [K57.92] 05/21/2021 Cough [R05.9] 05/21/2021 Chronic pain [G89.29] 05/21/2021 Bruises easily [R23.3] 05/21/2021 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*11/18/2021 Elevated AST (SGOT) [R74.01] 11/18/2021 Dizziness [R42] 11/18/2021 Abnormal weight gain [R63.5] 06/23/2023 Chronic bilateral back pain [M54.9, G89.29] 11/29/2023 Lumbosacral spondylosis with radiculopathy [M47*02/07/2024 Spinal stenosis of lumbar region [M48.061] 06/26/2024 Lumbar radiculopathy [M54.16] 06/26/2024 Encounter Status:Closed by SOFIYA HAYNES on 07/31/24NormalCTriHealth Bethesda North HospitalALBUMIN/CREATININE RATIO, URINEon [id number] DL <= 20 mg/L (U) [Mass/Vol]17.4 mg/LNormalMartins Ferry Hospital on above:Order Comment: Specimen Type: URINE SPECIMEN Ordering Facility: [facility] Address: [address] [place], [place] [address]Performed By: #### UACR #### [facility] CLIA [id number] [address] [place] [address] [place] AMERICAAlbumin/Creatinine (U) [Mass ratio]5 mg/gNormal<30[facility] on above:Order Comment: Specimen Type: URINE SPECIMEN Ordering Facility: [facility] Address: [address] [place], [place] [address]Result Comment: Adult Male and Female Nephrotic Criteria: <30 mg/g is considered normal to mildly increased 30-300 mg/g is considered moderately increased >300 mg/g is considered severely increased KDIGO. (2013). KDIGO 2012 Clinical Practice Guideline for the Evaluation and Management of Chronic Kidney Disease. Official Journal of the International Society of Nephrology, 3(1), 1-150.Performed By: #### UACR #### [facility] CLIA [id number] [address] [place] [address] [place] AMERICACreatinine (U) [Mass/Vol] 328.5 mg/tDVpfq81.0-300.0[facility] on above:Order Comment: Specimen Type: URINE SPECIMEN Ordering Facility: [facility] Address: [address] [place], [place] [address]Performed By: #### UACR #### [facility] CLIA [id number] [address] [place] [address] [place] AMERICACholesterol in LDL Calc [Mass/Vol]on 17-20-6936Veasifqlavb in LDL [Mass/Vol]Cholesterol in LDL [Mass/volume] in Serum or Plasma by calculation<100[facility] HospitalComment on above:<100 mg/dL, Optimal 100-129 mg/dL, Near optimal/above optimal 130-159 mg/dL, Borderline high 160-189 mg/dL, High>189 mg/dL, Very highSecondary prevention optimal LDL Cholesterol levels are recommended to be < 70 mg/dLCholesterol in VLDL Calc [Mass/Vol]on 59-38-0332Otdrxjgihhy in VLDL [Mass/Vol]Cholesterol in VLDL [Mass/volume] in Serum or Plasma by calculation<30 [facility] HospitalGlucose mean value [Mass/volume] in Blood Estimated from glycated hemoglobinon 76-61-1978Fqhbfvp glucose Estimated from glycated hemoglobin (Bld) [Mass/Vol]Glucose mean value [Mass/volume] in Blood Estimated from glycated hemoglobinOhiohealth Grady Memorial HospitalComment on above:eAG: (Estimated average glucose) is a calculated value from HgbA1c and is physician relations representative of the average blood glucose level in the last 2-3 month period. HbA1c (Bld)on 14-05-3813Eapsilb glucose Estimated from glycated hemoglobin (Bld) [Mass/Vol]137 mg/dLNormalCMcKitrick Hospital on above:Order Comment: Specimen Type: BLOOD SPECIMEN Ordering Facility: [facility] Address: [address] [place], [place] [id number] Comment: eAG: (Estimated average glucose) is a calculated value from HgbA1c and is physician relations representative of the average blood glucose level in the last 2-3 month period.Performed By: #### 62335-2 #### [facility] CLIA [id number] [address] [place] [address] [place] ZAJZIYVGzZ0p (Bld) [Mass fraction] 6.4 %High4.3-5.6[facility] ClevelandComment on above:Order Comment: Specimen Type: BLOOD SPECIMEN Ordering Facility: [facility] Address: [address] [place], [place] [id number] Comment: [place] Diabetes Association guidelines indicate that patients with HgbA1c in the range 5.7-6.4% are at increased risk for development of diabetes, and intervention by lifestyle modification may be beneficial. HgbA1c greater or equal to 6.5% is considered diagnostic of diabetes.Performed By: #### [id number] #### [facility] CLIA [id number] [address] [place] [address] [place] [address] [place] [facility] MEDICAL CENTERHemoglobin A1c percentageon 57-91-8310ClZ6x (Bld) [Mass fraction]Hemoglobin A1c percentageHigh4.3-5.6 [facility] HospitalComment on above:[place] Diabetes Association guidelines indicate that patients with HgbA1c in the range 5.7-6.4% are at increased risk for development of diabetes, and intervention by lifestyle modification may be beneficial. HgbA1c greater or equal to 6.5% is considered diagnostic of diabetes.Laboratory - Chemistry and Chemistry - challengeon 32-21-3496Qyptrot [Mass/Vol]4.2 g/dL3.9-4.9[facility] Calcium [Mass/Vol]9.4 mg/dL8.5-10.2FSamaritan HospitalChloride [Moles/Vol]105 mmol/S30-055CroqlgomiOhiohealth Grady Memorial HospitalCholesterol [Mass/Vol]162 mg/dL<200[facility] HospitalComment on above:<200 mg/dL, Desirable 200-239 mg/dL, Borderline high>239 mg/dL, HighCholesterol in HDL [Mass/Vol]38 mg/dLLow>39[facility] HospitalComment on above: 40-59 mg/dL, Acceptable>59 mg/dL, High: Negative risk factor for coronary heart disease<40 mg/dL, Low: Positive risk factor for coronary heart diseaseCO2 [Moles/Vol]24 mmol/U82-09PgdycfwitOhiohealth Grady Memorial HospitalCreatinine [Mass/Vol] 1.06 mg/dLHigh0.58-0.96[facility] Memorial HospitalGlucose [Mass/Vol]123 mg/aAOfwt12-69HlwofvnnoOhiohealth Grady Memorial HospitalComment on above:The [place] Diabetes Association (ADA) provides guidance for cutoff [...] diabetes.Reference: Standardsof Medical Care in Diabetes 2016, [place] Diabetes Association. Diabetes Care. 2016.39(Suppl 1). Potassium [Moles/Vol]4.0 mmol/L3.7-5.1FKindred Hospital Daytonodium [Moles/Vol]141 mmol/J176-042VtxljelyeOhiohealth Grady Memorial HospitalTriglyceride [Mass/Vol]137 mg/dL<150Ohio[facility] Memorial HospitalComment on above:<150 mg/dL, Normal 150-199 mg/dL, Borderline high 200-499 mg/dL, High>499 mg/dL, Very highTSH Qn3.430 m[IU]/L0.270-4.200[facility] Memorial HospitalUrea nitrogen [Mass/Vol]17 mg/dL7-21[facility] Memorial HospitalLipid 1996 panel on 86-01-1873Wyqhoxytrsh [Mass/Vol]162 mg/dLNormal<200[facility] Comment on above:Order Comment: Specimen Type: BLOOD SPECIMENOrdering Facility: [facility] Address:[address] [place], [place] [address]Result Comment: <200 mg/dL, Desirable 200-239 mg/dL, Borderline high >239 mg/dL, HighPerformed By: #### 3016-3 ####[facility] [id number] [place] [address] [place]#### 32253-3 ####[facility] LABCLIA [id number] [address] LABCLIA [id number] [place], [place] [address]Hbysukkcpgc in HDL [Mass/Vol]38 mg/dLLow>39[facility] Comment on above:Order Comment: Specimen Type: BLOOD SPECIMENOrdering Facility: [facility] Address:[address] [place], [place] [id number] Comment: 40-59 mg/dL, Acceptable >59 mg/dL, High: Negative risk factor for coronary heart disease <40 mg/dL, Low: Positive risk factor for coronary heart diseasePerformed By: #### 3016-3 ####[facility]IA [id number] [place] [address] [place]#### 80061-9 ####[facility] LABCLIA [id number] [address] LABCLIA [id number] [place], [place] [address]Fifehyrzuwn in LDL [Mass/Vol]97 mg/dLNormal<100[facility] - TrumbullComment on above:Order Comment: Specimen Type: BLOOD SPECIMENOrdering Facility: [facility] Address:[address] [place], [place] [id number] Comment: <100 mg/dL, Optimal 100-129 mg/dL, Near optimal/above optimal 130-159 mg/dL, Borderline high 160-189 mg/dL, High >189 mg/dL, Very high Secondary prevention optimal LDL Cholesterol levels are recommended to be < 70 mg/dLPerformed By: #### 3016-3 ####[facility] LABCLIA [id number] [place] [address] [place]#### 90318-8 ####[facility] LABCLIA [id number] [address] LABCLIA [id number] [place], [place] [address]Nthqbqekhoe in LDL/Cholesterol in HDL [Mass ratio]2.55 {ratio}High<2.54 [facility] - TrumbullComment on above:Order Comment: Specimen Type: BLOOD SPECIMENOrdering Facility: [facility] Address:[address] [place], [place] [address]Result Comment: Reference: 1. National Cholesterol Education Program ATP III Guideline At-A-Glance Quick Desk Reference: National Heart, Lung, and Blood [place]. National Institutes of Health. 2001: NIH Publication No. 01-3305. 2. An International Atherosclerosis Society position paper: global recommendations for the management of dyslipidemia: executive summary, Atherosclerosis. 2014: 232(2):410-413.Performed By: #### 3016-3 ####[facility] LABCLIA [id number] [place] [address] [place]#### 49668-3 ####[facility] LABCLIA [id number] [address] LABCLIA [id number] [place], [place] [address]Yumkqvecunl in VLDL [Mass/Vol]27 mg/dLNormal<30[facility] TrumbullComment on above:Order Comment: Specimen Type: BLOOD SPECIMENOrdering Facility: [facility] Address:[address] [place], [place] [address]Performed By: #### 3016-3 ####[facility] LABCLIA [id number] [place] [address] [place]#### 44670-0 ####[facility] LABCLIA [id number] [address] LABCLIA [id number] [place], [place] [address]Seieweynzxa non HDL [Mass/Vol]124 mg/dLNormal<130[facility] Comment on above:Order Comment: Specimen Type: BLOOD SPECIMENOrdering Facility: [facility] Address:[address] [id number] Comment: <130 mg/dL, Optimal 130-159 mg/dL, Near optimal/above optimal 160-189 mg/dL, Borderline high 190-219 mg/dL, High >219 mg/dL, Very high Secondary prevention optimal non HDL Cholesterol levels are recommended to be <100 mg/dLPerformed By: #### 3016-3 ####[facility] LABCLIA [id number] [place] [address] [place]#### 85692-8 ####[facility] LABCLIA [id number] [address] LABCLIA [id number] [place], [place] [address]Dnfqbtxakzx.total/Cholesterol in HDL [Mass ratio]4.26 {ratio}Normal<5.10 [facility] on above:Order Comment: Specimen Type: BLOOD SPECIMENOrdering Facility: [facility] Address:[address] [place], [place] [address]Performed By: #### 3016-3 ####[facility] LABCLIA [id number] [place] [address] [place]#### 85737-7 ####[facility] LABCLIA [id number] [place] [id number] [facility] LABCLIA [id number] [place], [place] [address]QUHVTUD TIME12 hrsNoEast [facility] on above:Order Comment: Specimen Type: BLOOD SPECIMENOrdering Facility: [facility] Address:[address] [place], [place] [address]Performed By: #### 3016-3 ####[facility] LABCLIA [id number] [place] [address] [place]#### 49524-0 ####[facility] LABCLIA [id number] [address] LABCLIA [id number] [place], [place] [address]Omxqybhageln [Mass/Vol]137 mg/dLNormal<150 [facility] TrumbullComment on above:Order Comment: Specimen Type: BLOOD SPECIMENOrdering Facility: [facility] Address:[facility] [place], [place] [address]Result Comment: <150 mg/dL, Normal 150-199 mg/dL, Borderline high 200-499 mg/dL, High >499 mg/dL, Very highPerformed By: #### 3016-3 ####[facility] LABCLIA [id number] [address] [place]#### 54234-0 ####[facility] LABCLIA [id number] [place] [id number] [facility] LABCLIA [id number] [place], [place] [address]Mp Panel Informationon 07-29-2085Bvosg Albumin/Creatinine Ratio5 mg/g<30 [facility] HospitalComment on above:Adult Male and Female Nephrotic Criteria:<30 mg/g is considered normal to mildly bushqktim98-514ev/g is considered moderately increased>300 mg/g is considered severely increasedKDIGO. (2013). KDIGO 2012 Clinical Practice Guideline for the Evaluation and Management of Chronic Kidney Disease. Official Journal of the International Society of Nephrology, 3(1), 1-150.Urine Microalbumin mg/dl17.4 mg/LFSamaritan HospitalUrine Random Dvjxyigyxz104.5 mg/dLHigh 20.0-300.0[facility] HospitalCholesterol Ratio (LDL/HDL)2.55High <2.54[facility] HospitalComment on above:Reference:1. National Cholesterol Education Program ATP III Guideline At-A-Glance Quick Desk Referen ce: National Heart, Lung, and Blood [place]. National Institutes of Health. 2001: NIH PublicationNo. 01-3305.2. An International Atherosclerosis Society position paper: global recommendations for the management of dyslipidemia: executive summary, Atherosclerosis. 2014: 232(2):410-413.Estimated GFR (CKD-EPI) 54 mL/min/1.73m???Low>=60[facility] HospitalComment on above: Estimated Glomerular Filtration Rate (eGFR) is calculated using the 2020 CKD-EPI creatinine equation. This equation utilizes serum creatinine, sex, and age as parameters. The creatinine assay has traceable calibration to isotope dilution- mass spectrometry. Refer to KDIGO guidelines for clinical interpretation. In patients with unstable renal function, e.g. those with acute kidney injury, the eGFRmay not accurately reflect actual GFR.Fasting Ihzsyp82 hrsOhiohealth Grady Memorial HospitalNon-HDL Pqmdkiagoou313 mg/dL<130[facility] Comment on above:<130 mg/dL, Optimal 130-159 mg/dL, Near optimal/above optimal 160-189 mg/dL, Borderline high 190-219 mg/dL, High>219 mg/dL, Very highSecondary prevention optimal non HDL Cholesterol levels are recommended to be <100 mg/dL Phosphorus Level3.0 mg/dL2.7-4.8[facility] HospitalRenal function 2000 panelon 06-55-5102Qtarlmm [Mass/Vol]4.2 g/dLNormal3.9-4.9CMcKitrick Hospital on above:Order Comment: Specimen Type: BLOOD SPECIMEN Ordering Facility: [facility] Address: [address] [place], [place] [address]Performed By: #### 94683-0 #### [facility] CLIA [id number] [address] [place] [address]Xukaq gap [Moles/Vol]12 mmol/LNormal8-15[facility] TrumbullComcaro center on above:Order Comment: Specimen Type: BLOOD SPECIMEN Ordering Facility: [facility] Address: [address] [place], [place] [address]Performed By: #### 76203-8 #### [facility] CLIA [id number] [address] [place] [address]Phberlb [Mass/Vol]9.4 mg/dLNormal8.5-10.2CMcKitrick Hospital on above:Order Comment: Specimen Type: BLOOD SPECIMEN Ordering Facility: [facility] Address: [address] [place], [place] [address]Performed By: #### 94308-8 #### [facility] CLIA [id number] [address] [place], [place] [address]Ahnbhubc [Moles/Vol]105 mmol/SMgkauy83-977EtplfeanjMartins Ferry Hospital on above:Order Comment: Specimen Type: BLOOD SPECIMEN Ordering Facility: [facility] Address: [address] [place], [place] [address]Performed By: #### 04462-5 #### [facility] CLIA [id number] [address] [place] [address]PD6 [Moles/Vol]24 mmol/SIguqty74-73LsbdueiyxSelect Medical Specialty Hospital - [facility] Comment on above:Order Comment: Specimen Type: BLOOD SPECIMEN Ordering Facility: [facility] Address: [address] [place] [address]Rvnafervf By: #### 71020-1 #### [facility] CLIA [id number] [address] [place] [address]Slfjvgeijl [Mass/Vol]1.06 mg/dLHigh0.58-0.96[facility] on above:Order Comment: Specimen Type: BLOOD SPECIMEN Ordering Facility: [facility] Address: [address] [place] [address]Dywmbgxxj By: #### 52325-8 #### [facility] CLIA [id number] [address] [place], [place] [address]Dqhjxebtkz and Glomerular filtration rate.predicted panel (S/P/Bld)54 mL/min/1.73m???Low>=60[facility] on above: Order Comment: Specimen Type: BLOOD SPECIMEN Ordering Facility: [facility] Address: [address] [place], [place] [address]Result Comment: Estimated Glomerular Filtration Rate (eGFR) is calculated using the 2020 CKD-EPI cre atinine equation. This equation utilizes serum creatinine, sex, and age as parameters. The creatinine assay has traceable calibration to isotope dilution- mass spectrometry. Refer to KDIGO guidelines for clinical interpretation. In patients with unstable renal function, e.g. those with acute kidney injury, the eGFR may not accurately reflect actual GFR.Performed By: #### 47305-6 #### [facility] CLIA [id number] [address] [place] [address]Pnvxhja [Mass/Vol]123 mg/hNXocs50-22PthvbzzkcSelect Medical Specialty Hospital - [facility] Comment on above:Order Comment: Specimen Type: BLOOD SPECIMEN Ordering Facility: [facility] Address: [address] [place], [place] [address]Okdnfx Comment: The [place] Diabetes Association (ADA) provides guidance for cutoff values for fasting glucose and random glucose. The ADA defines fasting as no [...] Standards of Medical Care in Diabetes 2016, [place] [employer]. Diabetes Care. 2016.39(Suppl 1).Performed By: #### 60941-4 #### [facility] CLIA [id number] [address] [place] [address]Adzfnbrsw [Mass/Vol]3.0 mg/dLNormal2.7-4.8CTriHealth Bethesda North HospitalComment on above:Order Comment: Specimen Type: BLOOD SPECIMEN Ordering Facility: [facility] Address: [address] [place], [place] [address]Erftwjotr By: #### 42146-9 #### [facility] CLIA [id number] [address] [place], [place] [address]Wmkylfbdg [Moles/Vol]4.0 mmol/LNormal3.7-5.1ClevelUNC Health CaldwellComment on above:Order Comment: Specimen Type: BLOOD SPECIMEN Ordering Facility: [facility] Address: [address] [place], [place] [address]Performed By: #### 19415-9 #### [facility] CLIA [id number] [address] [place], [place] [address]Lklhqh [Moles/Vol]141 mmol/COepaaa869-981LzjuubnkeMartins Ferry Hospital on above:Order Comment: Specimen Type: BLOOD SPECIMEN Ordering Facility: [facility] Address: [address] [place], [place] [address]Performed By: #### 49316-1 #### [facility] CLIA [id number] [address] [place], [place] [address]Dsxr nitrogen [Mass/Vol]17 mg/dLNormal7-21[facility] on above:Order Comment: Specimen Type: BLOOD SPECIMEN Ordering Facility: [facility] Address: [address] [place], [place] [address]Performed By: #### 44074-4 #### [facility] CLIA [id number] [address] [place], [place] [address]Iccmt or plasma anion gap determinationon 08-55-7056Pkwwo gap [Moles/Vol]Serum or plasma anion gap determination8-15[facility] Hospitalerum or plasma total cholesterol/high density lipoprotein (HDL) cholesterol mass jewel 68-03-7744Iyuqnqlxnkd.total/Cholesterol in HDL [Mass ratio]Serum or plasma total cholesterol/high density lipoprotein (HDL) cholesterol mass rat<5.10[facility] HospitalTS SerPl-aCncon 67-31-5017KMH Qn3.430 m[IU]/LNormal0.270-4.200[facility] on above:Order Comment: Specimen Type: BLOOD SPECIMENOrdering Facility: [facility] Address:[address] [place] [address] Performed By: #### 3016-3 ####[facility] LABCLIA [id number] [place] [id number] [place]#### 26555-7 ####[facility] LABCLIA [id number] [place] [place] [place] [address] [facility]ITALORTHTRINITY [facility] LABCLIA [id number] [place], [place] [address]XKTUpz [id number] (ENDOAV) HOLA DOUGLAS ([id number]) 1945 F Date Time Provider Department 07/13/24 LORRAINE ONEILL ENDOAV During your visit today, we recorded the following information about you: Mili Handy LPN 07/13/2024 2:23 PM Signed Continuous glucose monitoring supplies order form received from [facility]. Form placed in Dr. Oneill's folder for review. Edith Knott MA 07/20/2024 2:14 PM Signed Form completed by provider and faxed back. Allergies As of Date: 07/13/2024 Noted Allergy Reaction ASA (SALICYLATES) 12/17/2004 Comments: causes platelet disfunction ASPIRIN 08/28/2018 16 - Unknown 14 - Other: See Comments LEVAQUIN (LEVOFLOXACIN) 12/29/2017 2 - Rash 14 - Other: See Comments Comments: Per pt feels like she on fire AVELOX (MOXIFLOXACIN HCL) 06/03/2011 5 - Intolerance Comments: C/O burning feeling on skin Date Reviewed: 06/26/2024 Reviewed by: Terri Willingham RN - Fully Assessed Reason for Visit: Patient Update [1234] Cmt: US MED Prescriptions as of 07/20/2024 - nateglinide (STARLIX) 60 mg tablet Take 1 tablet by mouth three times a day before meals for 4 days. Start after your steroid injection. - tirzepatide (MOUNJARO) 7.5 mg/0.5 mL pen injector Inject 7.5 mg subcutaneously one time a week. - Blood-Glucose Sensor ([employer] G7 SENSOR) nimesh Change sensor every 10 days. - fludrocortisone (FLORINEF) 0.1 mg tablet Take 2 tablets by mouth once daily. - lancets (TRUEPLUS LANCETS) 33 gauge Use with blood glucose test once daily - pravastatin (PRAVACHOL) 10 mg tablet Take 1 tablet by mouth once daily. - blood sugar diagnostic (TRUE METRIX GLUCOSE TEST STRIP) test strip Use with blood glucose test once daily - Blood-Glucose Meter (TRUE METRIX GLUCOSE METER) 1 Each once daily. - ergocalciferol 50,000 unit capsule (VITAMIN D2, DRISDOL) TAKE 1 CAPSULE ONE TIME WEEKLY - clonazePAM (KLONOPIN) 0.5 mg tablet Take 1 tablet by mouth as needed. For restless leg syndrome - loratadine (CLARITIN) 10 mg tablet Take 10 mg by mouth once daily. - fluticasone (FLONASE) 50 mcg/actuation nasal spray Use 2 Sprays in each nostril twice daily. - pen needle, diabetic (COMFORT EZ PEN NEEDLES) 33 gauge x 5/16 ndle To inject weekly - MULTIVITAMIN (MULTI-DAY ORAL) Take by mouth once daily. - calcium carbonate 600 mg-cholecalciferol 200 units (CALCIUM 600 + D,3,) 600 mg(1,500mg) -200 unit tab Take 1 tablet by mouth once daily. Problem List As Of Date 07/13/2024 Noted Resolved Lesion of ulnar nerve [G56.20] 12/15/2004 11/10/2018 Pain in limb [M79.609] 12/15/2004 11/10/2018 ABNORMAL FINDINGS-BREAST [793.8] 12/17/2004 LOC OSTEOARTH NOS-HAND [M19.049] 12/29/2004 CARPAL TUNNEL SYNDROME [G56.00] 06/01/2005 Type 2 diabetes mellitus with stage 3a chronic *06/15/2007 MIXED HYPERLIPIDEMIA [E78.2] 06/15/2007 Bursitis of hip [M70.70] 04/18/2013 Vitamin D insufficiency [E55.9] 01/11/2014 Right buttock pain [M79.18] 03/21/2015 Pain in right hip [M25.551] 03/21/2015 Greater trochanteric bursitis of right hip [M70*03/21/2015 Iron deficiency anemia, unspecified [D50.9] 11/22/2018 Osteoarthritis of knee [M17.9] 12/05/2018 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] 04/13/2019 Orthostatic hypotension [I95.1] 12/24/2020 Dyspnea on exertion [R06.09] 12/24/2020 Fatigue [R53.83] 12/24/2020 Tinnitus, right ear [H93.11] 03/16/2021 Sensory hearing loss, 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] 03/16/2021 Restless legs syndrome [G25.81] 05/21/2021 Postmenopausal status [Z78.0] 05/21/2021 Mixed anxiety depressive disorder [F41.8] 05/21/2021 Diverticulitis [K57.92] 05/21/2021 Cough [R05.9] 05/21/2021 Chronic pain [G89.29] 05/21/2021 Bruises easily [R23.3] 05/21/2021 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*11/18/2021 Elevated AST (SGOT) [R74.01] 11/18/2021 Dizziness [R42] 11/18/2021 Abnormal weight gain [R63.5] 06/23/2023 Chronic bilateral back pain [M54.9, G89.29] 11/29/2023 Lumbosacral spondylosis with radiculopathy [M47*02/07/2024 Spinal stenosis of lumbar region [M48.061] 06/26/2024 Lumbar radiculopathy [M54.16] 06/26/2024 Encounter Status:Closed by MILI HANDY on 07/13/24[facility] [id number] (ENDOAV) HOLA DOUGLAS ([id number]) 1945 F Date Time Provider Department 07/10/24 KARL COOK During your visit today, we recorded the following information about you: Edith Knott MA 07/10/2024 2:45 PM Signed Received CGM supply form from [facility]. Form placed in Karl Cook's folder for completion. Edith Knott MA 07/11/2024 4:30 PM Signed Form completed by provider and faxed back. Allergies As of Date: 07/10/2024 Noted Allergy Reaction ASA (SALICYLATES) 12/17/2004 Comments: causes platelet disfunction ASPIRIN 08/28/2018 16 - Unknown 14 - Other: See Comments LEVAQUIN (LEVOFLOXACIN) 12/29/2017 2 - Rash 14 - Other: See Comments Comments: Per pt feels like she on fire AVELOX (MOXIFLOXACIN HCL) 06/03/2011 5 - Intolerance Comments: C/O burning feeling on skin Date Reviewed: 06/26/2024 Reviewed by: Terri Willingham, RN - Fully Assessed Reason for Visit: Forms [913] Cmt: US Med Prescriptions as of 07/11/2024 - nateglinide (STARLIX) 60 mg tablet Take 1 tablet by mouth three times a day before meals for 4 days. Start after your steroid injection. - tirzepatide (MOUNJARO) 7.5 mg/0.5 mL pen injector Inject 7.5 mg subcutaneously one time a week. - Blood-Glucose Sensor ([employer] G7 SENSOR) nimesh Change sensor every 10 days. - fludrocortisone (FLORINEF) 0.1 mg tablet Take 2 tablets by mouth once daily. - lancets (TRUEPLUS LANCETS) 33 gauge Use with blood glucose test once daily - pravastatin (PRAVACHOL) 10 mg tablet Take 1 tablet by mouth once daily. - blood sugar diagnostic (TRUE METRIX GLUCOSE TEST STRIP) test strip Use with blood glucose test once daily - Blood-Glucose Meter (TRUE METRIX GLUCOSE METER) 1 Each once daily. - ergocalciferol 50,000 unit capsule (VITAMIN D2, DRISDOL) TAKE 1 CAPSULE ONE TIME WEEKLY - clonazePAM (KLONOPIN) 0.5 mg tablet Take 1 tablet by mouth as needed. For restless leg syndrome - loratadine (CLARITIN) 10 mg tablet Take 10 mg by mouth once daily. - fluticasone (FLONASE) 50 mcg/actuation nasal spray Use 2 Sprays in each nostril twice daily. - pen needle, diabetic (COMFORT EZ PEN NEEDLES) 33 gauge x 5/16 ndle To inject weekly - MULTIVITAMIN (MULTI-DAY ORAL) Take by mouth once daily. - calcium carbonate 600 mg-cholecalciferol 200 units (CALCIUM 600 + D,3,) 600 mg(1,500mg) -200 unit tab Take 1 tablet by mouth once daily. Problem List As Of Date 07/10/2024 Noted Resolved Lesion of ulnar nerve [G56.20] 12/15/2004 11/10/2018 Pain in limb [M79.609] 12/15/2004 11/10/2018 ABNORMAL FINDINGS-BREAST [793.8] 12/17/2004 LOC OSTEOARTH NOS-HAND [M19.049] 12/29/2004 CARPAL TUNNEL SYNDROME [G56.00] 06/01/2005 Type 2 diabetes mellitus with stage 3a chronic *06/15/2007 MIXED HYPERLIPIDEMIA [E78.2] 06/15/2007 Bursitis of hip [M70.70] 04/18/2013 Vitamin D insufficiency [E55.9] 01/11/2014 Right buttock pain [M79.18] 03/21/2015 Pain in right hip [M25.551] 03/21/2015 Greater trochanteric bursitis of right hip [M70*03/21/2015 Iron deficiency anemia, unspecified [D50.9] 11/22/2018 Osteoarthritis of knee [M17.9] 12/05/2018 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] 04/13/2019 Orthostatic hypotension [I95.1] 12/24/2020 Dyspnea on exertion [R06.09] 12/24/2020 Fatigue [R53.83] 12/24/2020 Tinnitus, right ear [H93.11] 03/16/2021 Sensory hearing loss, 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] 03/16/2021 Restless legs syndrome [G25.81] 05/21/2021 Postmenopausal status [Z78.0] 05/21/2021 Mixed anxiety depressive disorder [F41.8] 05/21/2021 Diverticulitis [K57.92] 05/21/2021 Cough [R05.9] 05/21/2021 Chronic pain [G89.29] 05/21/2021 Bruises easily [R23.3] 05/21/2021 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*11/18/2021 Elevated AST (SGOT) [R74.01] 11/18/2021 Dizziness [R42] 11/18/2021 Abnormal weight gain [R63.5] 06/23/2023 Chronic bilateral back pain [M54.9, G89.29] 11/29/2023 Lumbosacral spondylosis with radiculopathy [M47*02/07/2024 Spinal stenosis of lumbar region [M48.061] 06/26/2024 Lumbar radiculopathy [M54.16] 06/26/2024 Encounter Status:Closed by EDITH KNOTT on 07/10/24NoTrinity Health System West CampusCorry [id number] (NIQ) HOLA DOUGLAS ([id number]) 1945 F Date Time Provider Department 07/05/24 STEVE WAGONER During your visit today, we recorded the following information about you: Speed Nuclear Power Reactor OperatorAlthea 07/05/2024 10:15 AM Signed Call received for Steve Wagoner MD regarding Hola Douglas. Caller: self Patient Identified by Name and : Hola Douglas 1945 Reason for Call: Patient states he had her injection with Dr. Cohen on 06/26/24 and is still experiencing pain in her back and down the right leg Patient states the pain level is at a 7 Patient would like to know next step in her care Is there any additional information the provider should know? No Last Office Visit: 05/14/2024 Next scheduled appointment: 07/12/2024 Best number to reach caller: [phone] Best time to reach caller: anytime Is it OK to leave a detailed voice message? Yes Althea Castaneda Nuclear Power Reactor OperatorFadumo Keys RN 07/05/2024 11:14 AM Signed Neuro SPINE CARE COORDINATION QUICK NOTE MAGDA 06/26 Spoke with patient and advised her that the steroid injection can take anywhere from 2-4 weeks to see any kind of improvement with pain. We are at day 10 so I told her to wait another week and see how she is doing. Has follow up with Dr Wagoner on 07/12, she can discuss the next steps with patient at that visit. Allergies As of Date: 07/05/2024 Noted Allergy Reaction ASA (SALICYLATES) 12/17/2004 Comments: causes platelet disfunction ASPIRIN 08/28/2018 16 - Unknown 14 - Other: See Comments LEVAQUIN (LEVOFLOXACIN) 12/29/2017 2 - Rash 14 - Other: See Comments Comments: Per pt feels like she on fire AVELOX (MOXIFLOXACIN HCL) 06/03/2011 5 - Intolerance Comments: C/O burning feeling on skin Date Reviewed: 06/26/2024 Reviewed by: Terri Willingham, JEN - Fully Assessed Reason for Visit: Patient Update [1234] Patient Question [0967] Prescriptions as of 07/05/2024 - nateglinide (STARLIX) 60 mg tablet Take 1 tablet by mouth three times a day before meals for 4 days. Start after your steroid injection. - tirzepatide (MOUNJARO) 7.5 mg/0.5 mL pen injector Inject 7.5 mg subcutaneously one time a week. - Blood-Glucose Sensor ([employer] G7 SENSOR) nimesh Change sensor every 10 days. - fludrocortisone (FLORINEF) 0.1 mg tablet Take 2 tablets by mouth once daily. - lancets (TRUEPLUS LANCETS) 33 gauge Use with blood glucose test once daily - pravastatin (PRAVACHOL) 10 mg tablet Take 1 tablet by mouth once daily. - blood sugar diagnostic (TRUE METRIX GLUCOSE TEST STRIP) test strip Use with blood glucose test once daily - Blood-Glucose Meter (TRUE METRIX GLUCOSE METER) 1 Each once daily. - ergocalciferol 50,000 unit capsule (VITAMIN D2, DRISDOL) TAKE 1 CAPSULE ONE TIME WEEKLY - clonazePAM (KLONOPIN) 0.5 mg tablet Take 1 tablet by mouth as needed. For restless leg syndrome - loratadine (CLARITIN) 10 mg tablet Take 10 mg by mouth once daily. - fluticasone (FLONASE) 50 mcg/actuation nasal spray Use 2 Sprays in each nostril twice daily. - pen needle, diabetic (COMFORT EZ PEN NEEDLES) 33 gauge x 5/16 ndle To inject weekly - MULTIVITAMIN (MULTI-DAY ORAL) Take by mouth once daily. - calcium carbonate 600 mg-cholecalciferol 200 units (CALCIUM 600 + D,3,) 600 mg(1,500mg) -200 unit tab Take 1 tablet by mouth once daily. Problem List As Of Date 07/05/2024 Noted Resolved Lesion of ulnar nerve [G56.20] 12/15/2004 11/10/2018 Pain in limb [M79.609] 12/15/2004 11/10/2018 ABNORMAL FINDINGS-BREAST [793.8] 12/17/2004 LOC OSTEOARTH NOS-HAND [M19.049] 12/29/2004 CARPAL TUNNEL SYNDROME [G56.00] 06/01/2005 Type 2 diabetes mellitus with stage 3a chronic *06/15/2007 MIXED HYPERLIPIDEMIA [E78.2] 06/15/2007 Bursitis of hip [M70.70] 04/18/2013 Vitamin D insufficiency [E55.9] 01/11/2014 Right buttock pain [M79.18] 03/21/2015 Pain in right hip [M25.551] 03/21/2015 Greater trochanteric bursitis of right hip [M70*03/21/2015 Iron deficiency anemia, unspecified [D50.9] 11/22/2018 Osteoarthritis of knee [M17.9] 12/05/2018 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] 04/13/2019 Orthostatic hypotension [I95.1] 12/24/2020 Dyspnea on exertion [R06.09] 12/24/2020 Fatigue [R53.83] 12/24/2020 Tinnitus, right ear [H93.11] 03/16/2021 Sensory hearing loss, 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] 03/16/2021 Restless legs syndrome [G25.81] 05/21/2021 Postmenopausal status [Z78.0] 05/21/2021 Mixed anxiety depressive disorder [F41.8] 05/21/2021 Diverticulitis [K57.92] 05/21/2021 Cough [R05.9] 05/21/2021 Chronic pain [G89.29] 05/21/2021 Bruises easily [R23.3] 05/21/2021 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*11/18/2021 Elevated AST (SGOT) [R74.01] 11/18/2021 Dizziness [R42] 11/18/2021 Abnormal weight gain [R63.5] 06/23/2023 Chronic bilateral back pain [M54.9, G89.29] 11/29/2023 Lumbosacral spondylosis with radiculopathy [M47*02/07/2024 (more content not included)...NormalSelect [facility] Hospital - TrumbullCNPNon 06-29-2024 CNPNTelephone (SPNMMN) HOLA DOUGLAS ([id number]) 1945 F Date Time Provider Department 06/29/24 ZAK COHEN SPNMMN During your visit today, we recorded the following information about you: Sofiya Haynes LPN 06/29/2024 8:55 AM Signed Post Spine Injection phone call: 06/29/24 Patient denies fever, chills, new headache, prolonged numbness nor exacerbation of pain status. Injection site(s) flat and dry with no redness nor drainage. Pre Procedure Pain level: 3 Immediately Post Procedure 2 Pain level today 0 (0 = none - 10 = extreme) Percentage of pain relief: 95% Blood Glucose monitorin mg/dL June 29, 2024 Patient encouraged to monitor blood glucose for next 24 -48 for elevations. Patient verbalized understanding that it may take up to 14 days to realize full benefit of spinal injection. Patient is scheduled with Dr. Wagoner 07/12/24. Patient reminded to bring pain diary to follow appointment. Patient does not have any questions or concerns. Patient will call office with any questions or concerns. Allergies As of Date: 06/29/2024 Noted Allergy Reaction ASA (SALICYLATES) 12/17/2004 Comments: causes platelet disfunction ASPIRIN 08/28/2018 16 - Unknown 14 - Other: See Comments LEVAQUIN (LEVOFLOXACIN) 12/29/2017 2 - Rash 14 - Other: See Comments Comments: Per pt feels like she on fire AVELOX (MOXIFLOXACIN HCL) 06/03/2011 5 - Intolerance Comments: C/O burning feeling on skin Date Reviewed: 06/26/2024 Reviewed by: Terri Willingham RN - Fully Assessed Reason for Visit: Post Injection Questions [Other] Prescriptions as of 06/29/2024 - nateglinide (STARLIX) 60 mg tablet Take 1 tablet by mouth three times a day before meals for 4 days. Start after your steroid injection. - tirzepatide (MOUNJARO) 7.5 mg/0.5 mL pen injector Inject 7.5 mg subcutaneously one time a week. - Blood-Glucose Sensor (Phurn[employer] Software G7 SENSOR) nimesh Change sensor every 10 days. - fludrocortisone (FLORINEF) 0.1 mg tablet Take 2 tablets by mouth once daily. - lancets (TRUEPLUS LANCETS) 33 gauge Use with blood glucose test once daily - pravastatin (PRAVACHOL) 10 mg tablet Take 1 tablet by mouth once daily. - blood sugar diagnostic (TRUE METRIX GLUCOSE TEST STRIP) test strip Use with blood glucose test once daily - Blood-Glucose Meter (TRUE METRIX GLUCOSE METER) 1 Each once daily. - ergocalciferol 50,000 unit capsule (VITAMIN D2, DRISDOL) TAKE 1 CAPSULE ONE TIME WEEKLY - clonazePAM (KLONOPIN) 0.5 mg tablet Take 1 tablet by mouth as needed. For restless leg syndrome - loratadine (CLARITIN) 10 mg tablet Take 10 mg by mouth once daily. - fluticasone (FLONASE) 50 mcg/actuation nasal spray Use 2 Sprays in each nostril twice daily. - pen needle, diabetic (COMFORT EZ PEN NEEDLES) 33 gauge x 5/16 ndle To inject weekly - MULTIVITAMIN (MULTI-DAY ORAL) Take by mouth once daily. - calcium carbonate 600 mg-cholecalciferol 200 units (CALCIUM 600 + D,3,) 600 mg(1,500mg) -200 unit tab Take 1 tablet by mouth once daily. Problem List As Of Date 06/29/2024 Noted Resolved Lesion of ulnar nerve [G56.20] 12/15/2004 11/10/2018 Pain in limb [M79.609] 12/15/2004 11/10/2018 ABNORMAL FINDINGS-BREAST [793.8] 12/17/2004 LOC OSTEOARTH NOS-HAND [M19.049] 12/29/2004 CARPAL TUNNEL SYNDROME [G56.00] 06/01/2005 Type 2 diabetes mellitus with stage 3a chronic *06/15/2007 MIXED HYPERLIPIDEMIA [E78.2] 06/15/2007 Bursitis of hip [M70.70] 04/18/2013 Vitamin D insufficiency [E55.9] 01/11/2014 Right buttock pain [M79.18] 03/21/2015 Pain in right hip [M25.551] 03/21/2015 Greater trochanteric bursitis of right hip [M70*03/21/2015 Iron deficiency anemia, unspecified [D50.9] 11/22/2018 Osteoarthritis of knee [M17.9] 12/05/2018 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] 04/13/2019 Orthostatic hypotension [I95.1] 12/24/2020 Dyspnea on exertion [R06.09] 12/24/2020 Fatigue [R53.83] 12/24/2020 Tinnitus, right ear [H93.11] 03/16/2021 Sensory hearing loss, 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] 03/16/2021 Restless legs syndrome [G25.81] 05/21/2021 Postmenopausal status [Z78.0] 05/21/2021 Mixed anxiety depressive disorder [F41.8] 05/21/2021 Diverticulitis [K57.92] 05/21/2021 Cough [R05.9] 05/21/2021 Chronic pain [G89.29] 05/21/2021 Bruises easily [R23.3] 05/21/2021 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*11/18/2021 Elevated AST (SGOT) [R74.01] 11/18/2021 Dizziness [R42] 11/18/2021 Abnormal weight gain [R63.5] 06/23/2023 Chronic bilateral back pain [M54.9, G89.29] 11/29/2023 Lumbosacral spondylosis with radiculopathy [M47*02/07/2024 Spinal stenosis of lumbar region [M48.061] 06/26/2024 Lumbar radiculopathy [M54.16] 06/26/2024 Encounter Status:Closed by SOFIYA HAYNES on 06/29/24[facility]1000019on [id number] ID: [id number] Author: TERRI WILLINGHAM RN Service: ? Author Type: Registered Nurse Type: [id number] Filed: 06/26/2024 08:54 Note Text: [facility] Post-Procedure Pain Diary- Group 2 You MUST bring this diary with you to your follow-up appointment Date: ____/____/____ Injection Time: am/pm Draw where your pain is BEFORE the procedure Please indicate your pain level BEFORE the procedure At Rest 0 1 2 3 4 5 6 7 8 9 10 With Movement 0 1 2 3 4 5 6 7 8 9 10 Additional Comments? POST- PROCEDURE Pain Diary * Please score pain only for the area of pain treated with this procedure * 30 minutes after procedure At Rest With Movement 0 1 2 3 4 5 6 7 8 9 10 0 1 2 3 4 5 6 7 8 9 10 % Improvement 0 20 40 60 80 100 Comments: 1 hour after procedure At Rest With Movement 0 1 2 3 4 5 6 7 8 9 10 0 1 2 3 4 5 6 7 8 9 10 % Improvement 0 20 40 60 80 100 Comments: 2 hours after procedure At Rest With Movement 0 1 2 3 4 5 6 7 8 9 10 0 1 2 3 4 5 6 7 8 9 10 % Improvement 0 20 40 60 80 100 Comments: 3 hours after procedure At Rest With Movement 0 1 2 3 4 5 6 7 8 9 10 0 1 2 3 4 5 6 7 8 9 10 % Improvement 0 20 40 60 80 100 Comments: 4 hours after procedure At Rest With Movement 0 1 2 3 4 5 6 7 8 9 10 0 1 2 3 4 5 6 7 8 9 10 % Improvement 0 20 40 60 80 100 Comments: 5 hours after procedure At Rest With Movement 0 1 2 3 4 5 6 7 8 9 10 0 1 2 3 4 5 6 7 8 9 10 % Improvement 0 20 40 60 80 100 Comments: 6 hours after procedure At Rest With Movement 0 1 2 3 4 5 6 7 8 9 10 0 1 2 3 4 5 6 7 8 9 10 % Improvement 0 20 40 60 80 100 Comments: 1 week after procedure At Rest With Movement 0 1 2 3 4 5 6 7 8 9 10 0 1 2 3 4 5 6 7 8 9 10 % Improvement 0 20 40 60 80 100 Comments: 2 weeks after procedure At Rest With Movement 0 1 2 3 4 5 6 7 8 9 10 0 1 2 3 4 5 6 7 8 9 10 % Improvement 0 20 40 60 80 100 Comments: MAKE SURE TO CHECK YOUR BLOOD SUGAR DUE TO USE OF STEROID; IT MAY BE INCREASED. NormalSelect [facility] Specialty Hospital - TrumbullCNPNon [id number] (ENDCMN) HOLA DOUGLAS ([id number]) 1945 F Date Time Provider Department 06/26/24 KARL COOK [facility] During your visit today, we recorded the following information about you: Phyllis Thomas 06/26/2024 7:58 AM Signed tirzepatide (MOUNJARO) 7.5 mg/0.5 mL pen injector has been approved Notified patient through [facility] HEYDI DURAND [employer] II Endocrinology AND Metabolism [place] [facility] X-20 Allergies As of Date: 06/26/2024 Noted Allergy Reaction ASA (SALICYLATES) 12/17/2004 Comments: causes platelet disfunction ASPIRIN 08/28/2018 16 - Unknown 14 - Other: See Comments LEVAQUIN (LEVOFLOXACIN) 12/29/2017 2 - Rash 14 - Other: See Comments Comments: Per pt feels like she on fire AVELOX (MOXIFLOXACIN HCL) 06/03/2011 5 - Intolerance Comments: C/O burning feeling on skin Date Reviewed: 06/25/2024 Reviewed by: Karl Cook APRN.ENVIRONMENTAL ENGINEER SCIENTIST - Fully Assessed Reason for Visit: Insurance Authorization [[id number]] Cmt: Approval - tirzepatide (MOUNJARO) 7.5 mg/0.5 mL pen injector Prescriptions as of 06/26/2024 - nateglinide (STARLIX) 60 mg tablet Take 1 tablet by mouth three times a day before meals for 4 days. Start after your steroid injection. - tirzepatide (MOUNJARO) 7.5 mg/0.5 mL pen injector Inject 7.5 mg subcutaneously one time a week. - Blood-Glucose Sensor ([employer] G7 SENSOR) nimesh Change sensor every 10 days. - fludrocortisone (FLORINEF) 0.1 mg tablet Take 2 tablets by mouth once daily. - lancets (TRUEPLUS LANCETS) 33 gauge Use with blood glucose test once daily - pravastatin (PRAVACHOL) 10 mg tablet Take 1 tablet by mouth once daily. - blood sugar diagnostic (TRUE METRIX GLUCOSE TEST STRIP) test strip Use with blood glucose test once daily - Blood-Glucose Meter (TRUE METRIX GLUCOSE METER) 1 Each once daily. - ergocalciferol 50,000 unit capsule (VITAMIN D2, DRISDOL) TAKE 1 CAPSULE ONE TIME WEEKLY - clonazePAM (KLONOPIN) 0.5 mg tablet Take 1 tablet by mouth as needed. For restless leg syndrome - loratadine (CLARITIN) 10 mg tablet Take 10 mg by mouth once daily. - fluticasone (FLONASE) 50 mcg/actuation nasal spray Use 2 Sprays in each nostril twice daily. - pen needle, diabetic (COMFORT EZ PEN NEEDLES) 33 gauge x 5/16 ndle To inject weekly - esomeprazole (NEXIUM) 20 mg capsule Take 1 capsule by mouth DAILY (6 AM). - MULTIVITAMIN (MULTI-DAY ORAL) Take by mouth once daily. - calcium carbonate 600 mg-cholecalciferol 200 units (CALCIUM 600 + D,3,) 600 mg(1,500mg) -200 unit tab Take 1 tablet by mouth once daily. Problem List As Of Date 06/26/2024 Noted Resolved Lesion of ulnar nerve [G56.20] 12/15/2004 11/10/2018 Pain in limb [M79.609] 12/15/2004 11/10/2018 ABNORMAL FINDINGS-BREAST [793.8] 12/17/2004 LOC OSTEOARTH NOS-HAND [M19.049] 12/29/2004 CARPAL TUNNEL SYNDROME [G56.00] 06/01/2005 Type 2 diabetes mellitus with stage 3a chronic *06/15/2007 MIXED HYPERLIPIDEMIA [E78.2] 06/15/2007 Bursitis of hip [M70.70] 04/18/2013 Vitamin D insufficiency [E55.9] 01/11/2014 Right buttock pain [M79.18] 03/21/2015 Pain in right hip [M25.551] 03/21/2015 Greater trochanteric bursitis of right hip [M70*03/21/2015 Iron deficiency anemia, unspecified [D50.9] 11/22/2018 Osteoarthritis of knee [M17.9] 12/05/2018 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] 04/13/2019 Orthostatic hypotension [I95.1] 12/24/2020 Dyspnea on exertion [R06.09] 12/24/2020 Fatigue [R53.83] 12/24/2020 Tinnitus, right ear [H93.11] 03/16/2021 Sensory hearing loss, 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] 03/16/2021 Restless legs syndrome [G25.81] 05/21/2021 Postmenopausal status [Z78.0] 05/21/2021 Mixed anxiety depressive disorder [F41.8] 05/21/2021 Diverticulitis [K57.92] 05/21/2021 Cough [R05.9] 05/21/2021 Chronic pain [G89.29] 05/21/2021 Bruises easily [R23.3] 05/21/2021 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*11/18/2021 Elevated AST (SGOT) [R74.01] 11/18/2021 Dizziness [R42] 11/18/2021 Abnormal weight gain [R63.5] 06/23/2023 Chronic bilateral back pain [M54.9, G89.29] 11/29/2023 Lumbosacral spondylosis with radiculopathy [M47*02/07/2024 Encounter Status:Closed by PHYLLIS THOMAS on 06/26/24[facility] PHYSICALon [id number] PHYSICALHNO ID: [id number] Author: IMER LEWIS APRN.ENVIRONMENTAL ENGINEER SCIENTIST Service: Family Practice Author Type: Nurse Practitioner Type: H&P Filed: 06/26/2024 08:16 Note Text: LOCAL PROCEDURE HISTORY AND PHYSICAL EXAM SERVICE DATE: 06/26/2024 SERVICE TIME: 8:15 AM Provisional Diagnosis/Treatment Plan: Lumbar Spine - Transforaminal epidural steroid injection with fluoro guidance Level: L4-5 Subjective HPI: This is a 79 year old female who presents with back pain MEDICATIONS: Prior to Admission medications as of 06/25/24 1426 Medication Sig Last Dose Taking nateglinide (STARLIX) 60 mg tablet Take 1 tablet by mouth three times a day before meals for 4 days. Start after your steroid injection. tirzepatide (MOUNJARO) 7.5 mg/0.5 mL pen injector Inject 7.5 mg subcutaneously one time a week. Blood-Glucose Sensor (Phurn[employer] Software G7 SENSOR) nimesh Change sensor every 10 days. fludrocortisone (FLORINEF) 0.1 mg tablet Take 2 tablets by mouth once daily. lancets (TRUEPLUS LANCETS) 33 gauge Use with blood glucose test once daily pravastatin (PRAVACHOL) 10 mg tablet Take 1 tablet by mouth once daily. blood sugar diagnostic (TRUE METRIX GLUCOSE TEST STRIP) test strip Use with blood glucose test once daily Blood-Glucose Meter (TRUE METRIX GLUCOSE METER) 1 Each once daily. ergocalciferol 50,000 unit capsule (VITAMIN D2, DRISDOL) TAKE 1 CAPSULE ONE TIME WEEKLY clonazePAM (KLONOPIN) 0.5 mg tablet Take 1 tablet by mouth as needed. For restless leg syndrome loratadine (CLARITIN) 10 mg tablet Take 10 mg by mouth once daily. fluticasone (FLONASE) 50 mcg/actuation nasal spray Use 2 Sprays in each nostril twice daily. pen needle, diabetic (COMFORT EZ PEN NEEDLES) 33 gauge x 5/16 ndle To inject weekly esomeprazole (NEXIUM) 20 mg capsule Take 1 capsule by mouth DAILY (6 AM). MULTIVITAMIN (MULTI-DAY ORAL) Take by mouth once daily. calcium carbonate 600 mg-cholecalciferol 200 units (CALCIUM 600 + D,3,) 600 mg(1,500mg) -200 unit tab Take 1 tablet by mouth once daily. ALLERGIES Allergen Reactions Asa [Salicylates] causes platelet disfunction Aspirin Unknown, Other: See Comments Levaquin [Levofloxa* Rash, Other: See Comments Per pt feels like she on fire Avelox [Moxifloxaci* Intolerance C/O burning feeling on skin Objective PHYSICAL EXAM: The remainder of the physical exam is noncontributory. GENERAL: Alert, no distress, cooperative LUNGS: Lungs clear to auscultation, Good diaphragmatic excursion CARDIAC: Normal S1 and S2; no rubs, murmurs, or gallops There were no vitals taken for this visit. PAIN ASSESSMENT: PAIN EVALUATION No data found in the last 1 encounters. Assessment/Plan Active Problems: Lumbosacral spondylosis with radiculopathy (POA: Yes) Assessment AND Plan: Lumbar Spine - Transforaminal epidural steroid injection with fluoro guidance Level: L4-5 Spinal stenosis of lumbar region (POA: Unknown) Assessment AND Plan: Lumbar Spine - Transforaminal epidural steroid injection with fluoro guidance Level: L4-5 Resolved Problems: * No resolved hospital problems. * Medication and Non-Pharmacologic VTE Prophylaxis/Anticoagulants VTE Prophylaxis: NA SIGNATURE: Imer Lewis APRN.JUAN ANTONIO PATIENT NAME: Hola Douglas DATE: June 26, 2024 TIME: 8:15 AMNormalSelect Medical Specialty Hospital - TrumbullOPERATIVE NOon [id number] NOHNO ID: [id number] Author: ZAK COHEN DO Service: Physical Medicine AND Rehabilitation Author Type: Physician Type: Operative Report Filed: 06/26/2024 08:49 Note Text: PROCEDURE REPORT Surgery/Procedure Date: June 26, 2024 Interventionalist: Zak Cohen DO Procedure(s): Right L4-5 transforaminal epidural steroid injection Pre-Op/Pre-Procedure Diagnosis: Lumbar radiculopathy Post-Op Diagnosis: same SUBJECTIVE: Hola Douglas is a 79 year old female, who presents to the [facility] surgery center for a right L4-L5 transforaminal epidural steroid injection. 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 Pain is right low back/buttock down right lateral thigh to the knee. Right thigh pain is the worst. Pain is currently 3/10, but gets up to 8-9/10 at worst. I have reviewed the nurses notes and am aware of the patient's history. OBJECTIVE: Vital signs are documented in the paper chart prior to and throughout the procedure. INFORMED CONSENT: Risks, benefits, alternatives and personnel discussed with patient who consents to proceed. A formal sign in and timeout with team members and patient present were performed prior to procedure start/delivery of medication. PROCEDURE: Procedure: Right L4-L5 Transforaminal Epidural Steroid Injection IV was established in the upper limb. Hola Douglas was transferred to the Block Room. Time out was performed. After placement of routine monitors (blood pressure, pulse oximetry, and heart rate monitored by dedicated nurse), the procedure was performed in the usual manner. Anesthesia: Local only Start time: 0840 Stop time: 0848 Fluoroscopy time: 21 seconds Estimated blood loss: none Level: right L4-L5 Technique: Patient positioned prone. Procedure area was prepped with Betadine and draped with sterile coverings. An oblique approach was used with C-arm guidance. The skin was anesthetized with 1% lidocaine. A #22 gauge short-bevel spinal needle was inserted to the proper location within the intervertebral foramen using intermittent fluoroscopy. Position was confirmed with iohexol contrast under live fluoroscopy. Needle position was verified in two views and epidurogram was visualized and recorded. 10 mg of dexamethasone and 2 cc of lidocaine 1% was injected. The spinal needle was then removed. Adequate hemostasis was obtained at the needle puncture site. The patient's back was cleaned and a sterile dressing was applied. Patient tolerated the procedure well and was taken conscious and in stable condition to the recovery room for observation. No complications as a result of this procedure. Post procedure precautions and instructions were reviewed with the patient who verbalized understanding. I/primary surgeon/proceduralist performed the procedure alone. No complications were encountered. Estimated blood loss: none Specimens: none Implanted devices: none Drains: none Post procedure physical exam unchanged from pre procedure. Significant findings: No tilt Oblique 10 right for AP Oblique 30 right for trajectory ASSESSMENT: Pre Procedure diagnosis: Lumbar radiculopathy Post-Procedure diagnosis: same Pre Procedure Pain Level: same as above Post Procedure Pain Level: as documented in nursing notes and paper chart Purposeful response to verbal or tactile stimulation: Yes PLAN: Post-procedure instructions reviewed with patient. Patient is to complete post-procedure pain diary and follow up with the ordering provider. Patient is to contact our office with any question or if any side effects are noted. Hola Douglas was transferred to the recovery room and is to be discharged home in stable condition. Zak Cohen [facility] [id number] Visit (ENDOAV) DOUGLASHOLA Cao ([id number]) 1945 F Date Time Provider Department 06/25/24 3:00 PM KARL COOK ENDO[facility]RE[facility] During your visit today, we recorded the following information about you: Pulse Blood pressure Weight 73/minute 119/74 84.7 kg Karl Cook APRN.ENVIRONMENTAL ENGINEER SCIENTIST 06/26/2024 1:00 PM Signed Endocrinology Follow-up History of Present Illness Hola Douglas is a 79 year old female presents today for follow up of DM Type 2. LV with Dr Oneill- Ozempic was continued In between visits, she had reached out and Ozempic was switched to Mounjaro 5 mg weekly. Tolerating without side effects. A1C was 6.5% (05/11/24) She and her had Flu A- last month Required prednisone for this Did have some mild nausea with the Ozempic Will be receiving a steroid injection PMH significant for: PAST MEDICAL HISTORY Diagnosis Date Carpal tunnel syndrome Diverticulosis of colon (without mention of hemorrhage) Hypotension Localized osteoarthrosis not specified whether primary or secondary, hand Mastodynia Other chronic sinusitis Type II or unspecified type diabetes mellitus without mention of complication, uncontrolled Vertigo Current workup Date of Diagnosis: age 61 Last HbA1c: Hemoglobin A1C (%) Date Value 05/11/2024 6.5 10/06/2023 6.7 05/20/2023 7.0 12/21/2022 6.2 05/21/2022 6.4 2021 6.7 10/24/2020 6.7 05/01/2020 6.4 10/18/2019 6.4 04/06/2019 6.3 Hemoglobin A1C (POCT) (%) Date Value 01/19/2024 6.8 Complications Microvascular: neuropathy, CKD stage 3 Macrovascular: none Health Maintenance Topics Topic Date Due Dilated Retinal Exam 07/04/2024 Physical Activity: limited Diet: no specific regimen; eats 3 meals per day SMBG Frequency of Monitoring:daily in the morning BG Values: typically 110s Hypoglycemia Frequency: denies Current DM Related Medications: Current Medications 06/25/2024 DIABETES THERAPIES Medication Dosage Pharm Subclass nateglinide (STARLIX) 60 mg tablet Take 1 tablet by mouth three times a day before meals for 4 days. Start after your steroid injection. Antihyperglycemic - Meglitinide Analogs tirzepatide (MOUNJARO) 5 mg/0.5 mL pen injector Inject 5 mg subcutaneously one time a week. Antihyperglycemic - Dual GIP and GLP-1 Receptor Agonists CARDIOVASCULAR Medication Dosage Pharm Subclass pravastatin (PRAVACHOL) 10 mg tablet Take 1 tablet by mouth once daily. Antihyperlipidemic - HMG CoA Reductase Inhibitors (statins) OTHER Medication Dosage Pharm Subclass blood sugar diagnostic (TRUE METRIX GLUCOSE TEST STRIP) test strip Use with blood glucose test once daily Medical Supplies and DME - Blood Glucose Tests Blood-Glucose Meter (TRUE METRIX GLUCOSE METER) 1 Each once daily. Medical Supplies and DME - Glucose Monitoring Test Supplies calcium carbonate 600 mg-cholecalciferol 200 units (CALCIUM 600 + D,3,) 600 mg(1,500mg) -200 unit tab Take 1 tablet by mouth once daily. Minerals and Electrolytes - Calcium Replacement/Vitamin D Combinations clonazePAM (KLONOPIN) 0.5 mg tablet Take 1 tablet by mouth as needed. For restless leg syndrome Antianxiety Agent - Benzodiazepines ergocalciferol 50,000 unit capsule (VITAMIN D2, DRISDOL) TAKE 1 CAPSULE ONE TIME WEEKLY Vitamins - D Derivatives esomeprazole (NEXIUM) 20 mg capsule Take 1 capsule by mouth DAILY (6 AM). Gastric Acid Secretion [employer] - Proton Pump Inhibitors (PPIs) fludrocortisone (FLORINEF) 0.1 mg tablet Take 2 tablets by mouth once daily. Mineralocorticoids fluticasone (FLONASE) 50 mcg/actuation nasal spray Use 2 Sprays in each nostril twice daily. Nasal Corticosteroids gabapentin (NEURONTIN) 300 mg capsule Take 1 capsule by mouth two times a day AND 3 capsules daily at bedtime. Do all this for 90 days. Anticonvulsant - VALENTIN Analogs lancets (TRUEPLUS LANCETS) 33 gauge Use with blood glucose test once daily Medical Supplies and DME - Glucose Monitoring Test Supplies loratadine (CLARITIN) 10 mg tablet Take 10 mg by mouth once daily. Antihistamines - 2nd Generation MULTIVITAMIN (MULTI-DAY ORAL) Take by mouth once daily. Multivitamins pen needle, diabetic (COMFORT EZ PEN NEEDLES) 33 gauge x 5/16 ndle To inject weekly Medical Supplies and DME - Insulin [place]-Syringes and Admin Supplies Past History, Medications, Allergies PAST SURGICAL HISTORY Procedure Laterality Date ARTHROSCOPY KNEE DIAGNOSTIC W/WO SYNOVIAL BX SPX Left Arthroscopy, knee BIOPSY BREAST OPEN INCISIONAL 1998 needle localization right breast BIOPSY BREAST OPEN INCISIONAL 1996 right breast CARPAL TUNNEL right LAPS ABD PRTMANDOMENTUM DX W/WO SPEC BR/WA SPX Laparoscopy PAST SURGICAL HISTORY OF 06/2023 Bilateral cataract surgery TOTAL ABDOMINAL HYSTERECT W/WO RMVL TUBE OVARY 1992 ALLERGIES Allergen Reactions Asa [Salicylates] causes platelet disfunction Aspirin Unkno (more content not included)...[facility] [id number] (ENDAV3) HOLA DOUGLAS ([id number]) 1945 F Date Time Provider Department 06/19/24 FARZANA MORROW3 During your visit today, we recorded the following information about you: Hans YeyoLisa 06/19/2024 11:32 AM Signed Hola is calling Farzana Morrow RD today. She was seen by provider on 03/30/24. Wants to talk to provider to see about getting her in to see her. Please call patient. Patient has been identified by name and birthdate. Duration of symptoms: N/A Person calling: self Call patient at: on cell [phone] (home) [phone] (cell) Was an appointment scheduled: No Closing statement: Results or non-symptom based questions: Thank you for calling [facility], your call will be returned within the next business day. Lisa Mike Hans Pss Farzana Morrow RD 06/21/2024 4:07 PM Signed Spoke with pt via phone - pt set initial appt for spouse at end of September 2024. Pt reports spouse is experiencing unintentional weight loss. Set appt for [address] Allergies As of Date: 06/19/2024 Noted Allergy Reaction ASA (SALICYLATES) 12/17/2004 Comments: causes platelet disfunction ASPIRIN 08/28/2018 16 - Unknown 14 - Other: See Comments LEVAQUIN (LEVOFLOXACIN) 12/29/2017 2 - Rash 14 - Other: See Comments Comments: Per pt feels like she on fire AVELOX (MOXIFLOXACIN HCL) 06/03/2011 5 - Intolerance Comments: C/O burning feeling on skin Date Reviewed: 03/20/2024 Reviewed by: Etienne Marcus CT - Fully Assessed Reason for Visit: Patient Question [4723] Cmt: Pt calling for initial appt for spouse - pt reports significant unintentional weight loss. Prescriptions as of 06/21/2024 - fludrocortisone (FLORINEF) 0.1 mg tablet Take 2 tablets by mouth once daily. - lancets (TRUEPLUS LANCETS) 33 gauge Use with blood glucose test once daily - pravastatin (PRAVACHOL) 10 mg tablet Take 1 tablet by mouth once daily. - tirzepatide (MOUNJARO) 5 mg/0.5 mL pen injector Inject 5 mg subcutaneously one time a week. - nateglinide (STARLIX) 60 mg tablet Take 1 tablet by mouth three times a day before meals for 4 days. Start after your steroid injection. - gabapentin (NEURONTIN) 300 mg capsule Take 1 capsule by mouth two times a day AND 3 capsules daily at bedtime. Do all this for 90 days. - blood sugar diagnostic (TRUE METRIX GLUCOSE TEST STRIP) test strip Use with blood glucose test once daily - Blood-Glucose Meter (TRUE METRIX GLUCOSE METER) 1 Each once daily. - ergocalciferol 50,000 unit capsule (VITAMIN D2, DRISDOL) TAKE 1 CAPSULE ONE TIME WEEKLY - clonazePAM (KLONOPIN) 0.5 mg tablet Take 1 tablet by mouth as needed. For restless leg syndrome - loratadine (CLARITIN) 10 mg tablet Take 10 mg by mouth once daily. - fluticasone (FLONASE) 50 mcg/actuation nasal spray Use 2 Sprays in each nostril twice daily. - pen needle, diabetic (COMFORT EZ PEN NEEDLES) 33 gauge x 5/16 ndle To inject weekly - esomeprazole (NEXIUM) 20 mg capsule Take 1 capsule by mouth DAILY (6 AM). - MULTIVITAMIN (MULTI-DAY ORAL) Take by mouth once daily. - calcium carbonate 600 mg-cholecalciferol 200 units (CALCIUM 600 + D,3,) 600 mg(1,500mg) -200 unit tab Take 1 tablet by mouth once daily. Problem List As Of Date 06/19/2024 Noted Resolved Lesion of ulnar nerve [G56.20] 12/15/2004 11/10/2018 Pain in limb [M79.609] 12/15/2004 11/10/2018 ABNORMAL FINDINGS-BREAST [793.8] 12/17/2004 LOC OSTEOARTH NOS-HAND [M19.049] 12/29/2004 CARPAL TUNNEL SYNDROME [G56.00] 06/01/2005 Type 2 diabetes mellitus with stage 3a chronic *06/15/2007 MIXED HYPERLIPIDEMIA [E78.2] 06/15/2007 Bursitis of hip [M70.70] 04/18/2013 Vitamin D insufficiency [E55.9] 01/11/2014 Right buttock pain [M79.18] 03/21/2015 Pain in right hip [M25.551] 03/21/2015 Greater trochanteric bursitis of right hip [M70*03/21/2015 Iron deficiency anemia, unspecified [D50.9] 11/22/2018 Osteoarthritis of knee [M17.9] 12/05/2018 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] 04/13/2019 Orthostatic hypotension [I95.1] 12/24/2020 Dyspnea on exertion [R06.09] 12/24/2020 Fatigue [R53.83] 12/24/2020 Tinnitus, right ear [H93.11] 03/16/2021 Sensory hearing loss, 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] 03/16/2021 Restless legs syndrome [G25.81] 05/21/2021 Postmenopausal status [Z78.0] 05/21/2021 Mixed anxiety depressive disorder [F41.8] 05/21/2021 Diverticulitis [K57.92] 05/21/2021 Cough [R05.9] 05/21/2021 Chronic pain [G89.29] 05/21/2021 Bruises easily [R23.3] 05/21/2021 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*11/18/2021 Elevated AST (SGOT) [R74.01] 11/18/2021 Dizziness [R42] 11/18/2021 Abnormal weight gain [R63.5] 06/23/2023 Chronic bilateral back pain [M54.9, G89.29] 11/29/2023 Lumbosacral spondylosis with radiculopathy [M47*02/07/2024 Encounter Status:Closed by FARZANA MORROW on 06/21/24No[facility]on [id number] (SPNMMN) HOLA DOUGLAS ([id number]) 1945 F Date Time Provider Department 06/13/24 ZAK COHEN SPNMMN During your visit today, we recorded the following information about you: Sofiya Haynes LPN 06/13/2024 12:47 PM Signed Phoned patient and spoke with patient to confirm appointment for Hola Dogulas for spine procedure on 06/26/24. Patient notified that [facility] will call patient the night before with the time to arrive for injection. Patient verbalized understanding of the following: -Provided education on spine procedure and answered questions related to spine injection procedure. -Desk Editor is needed to drive patient home: Yes, and patient aware [employer] company flatbed driver will need to stay for procedure and drive her home. -NPO 6 hours prior to appointment, ok to take morning medications with sip of water. -Not to take any pain medications the day of injection to see how well injection works. -Do not take any NSAIDs/anti-inflammatories (mobic, ibuprofen, advil, aleve, etc) the day of procedure for all lumbar, hip, and sacroiliac joint procedures. Hold NSAIDs for 1 day prior to procedure for cervical cases. Allergies reviewed: Yes Allergy to IV contrast dye or steroids: No and not allergic to shellfish Taking any antiplatelet/anticoagulant (blood thinners): No Taking aspirin 81mg: No Any open wounds/sores?: No Taking Antibiotics?: Yes, patient states she will be off of this on Tuesday06/17/24 Diabetic: Yes , notified that blood sugar will be taken at office and ok to take morning diabetes medication. Patient given number [phone], spine injections schedulers, if there is any need to reschedule/ change appointment during normal business hours. Active MyChart users were informed to read MyChart procedure instructions prior to appointment. AMBULATORY PATIENT EDUCATION TOPIC: SPINE INJECTION PROCEDURE, PRE-INJECTION AND POST- INJECTION INSTRUCTIONS READINESS TO LEARN COGNITIVE ABILITY: ALERT AND ORIENTED MOTIVATION TO LEARN: Eager FAMILY SUPPORT: Unable to assess - Family not present INSTRUCTION PROVIDED TO: Patient PATIENT LEARNS BEST BY: INDIVIDUAL INSTRUCTION FACTORS AFFECTING LEARNING: None PHYSICAL LIMITATIONS AFFECTING LEARNING: None LEARNING RESPONSE METHOD OF INSTRUCTION: TEACH BACK AND INDIVIDUAL INSTRUCTION PATIENT / FAMILY RESPONSE: VERBALIZED UNDERSTANDING OF PRE AND POST INJECTION INSTRUCTIONS Allergies As of Date: 06/13/2024 Noted Allergy Reaction ASA (SALICYLATES) 12/17/2004 Comments: causes platelet disfunction ASPIRIN 08/28/2018 16 - Unknown 14 - Other: See Comments LEVAQUIN (LEVOFLOXACIN) 12/29/2017 2 - Rash 14 - Other: See Comments Comments: Per pt feels like she on fire AVFed PlaybookOX (MOXIFLOXACIN HCL) 06/03/2011 5 - Intolerance Comments: C/O burning feeling on skin Date Reviewed: 03/20/2024 Reviewed by: Etienne Marcus CT - Fully Assessed Reason for Visit: Preperations for Procedure Call [Other] Prescriptions as of 06/13/2024 - fludrocortisone (FLORINEF) 0.1 mg tablet TAKE 2 TABLETS BY MOUTH ONCE DAILY - tirzepatide (MOUNJARO) 5 mg/0.5 mL pen injector Inject 5 mg subcutaneously one time a week. - pravastatin (PRAVACHOL) 10 mg tablet Take 1 tablet by mouth once daily. - nateglinide (STARLIX) 60 mg tablet Take 1 tablet by mouth three times a day before meals for 4 days. Start after your steroid injection. - gabapentin (NEURONTIN) 300 mg capsule Take 1 capsule by mouth two times a day AND 3 capsules daily at bedtime. Do all this for 90 days. - blood sugar diagnostic (TRUE METRIX GLUCOSE TEST STRIP) test strip Use with blood glucose test once daily - lancets (TRUEPLUS LANCETS) 33 gauge Use with blood glucose test once daily - Blood-Glucose Meter (TRUE METRIX GLUCOSE METER) 1 Each once daily. - ergocalciferol 50,000 unit capsule (VITAMIN D2, DRISDOL) TAKE 1 CAPSULE ONE TIME WEEKLY - clonazePAM (KLONOPIN) 0.5 mg tablet Take 1 tablet by mouth as needed. For restless leg syndrome - loratadine (CLARITIN) 10 mg tablet Take 10 mg by mouth once daily. - fluticasone (FLONASE) 50 mcg/actuation nasal spray Use 2 Sprays in each nostril twice daily. - pen needle, diabetic (COMFORT EZ PEN NEEDLES) 33 gauge x 5/16 ndle To inject weekly - esomeprazole (NEXIUM) 20 mg capsule Take 1 capsule by mouth DAILY (6 AM). - MULTIVITAMIN (MULTI-DAY ORAL) Take by mouth once daily. - calcium carbonate 600 mg-cholecalciferol 200 units (CALCIUM 600 + D,3,) 600 mg(1,500mg) -200 unit tab Take 1 tablet by mouth once daily. 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] 12/15/2004 11/10/2018 Pain in limb [M79.609] 12/15/2004 11/10/2018 ABNORMAL FINDINGS-BREAST [793.8] 12/17/2004 LOC OSTEOARTH NOS-HAND [M19.049] 12/29/2004 CARPAL TUNNEL SYNDROME [G56.00] 06/01/2005 Type 2 diabetes mellitus with stage 3a chronic *06/14/ (more content not included)...NormalWilson Health ClevelandX-ray reportOrdered By: Naldo Baltazar on [id number] reportFIRFOSTORIA CITY [facility] Main [address] [address] XRay Report Signed Patient: Hola Douglas MR#: [id number] : 1945 Acct:[id number] Age/Sex: 79 / F ADM Date: 5 Loc: XDS Room: Type: REG CLI Attending Dr: Erich Gillis DO Copies to: Erich Gillis DO~ Ordering Provider: Erich Gillis DO Date of Service: 06/12/24 XR/XR chest 2V*: R05.9 - Cough, unspecified Chest 2 views CLINICAL HISTORY: Bad cough. COMPARISON: Chest 02/18/2023 FINDINGS: Heart normal size. Lungs are clear. No free air. XR/XR chest 2V* IMPRESSION: NO ACUTE CARDIOPULMONARY ABNORMALITY. Impression dictated by: Naldo Baltazar Jr., D.O.06/12/2024 3:26 PM Dictation Location: [place] [address] Transcribed By: [facility] 06/12/24 1526 Dictated By: Naldo Baltazar Jr, DO 06/12/24 1526 Signed By: 06/12/24 1526 [facility]*on [id number] chest 2V*[address] [address] XRay Report Signed Patient: Hola Douglas MR#: [id number] 22 : 1945 Acct:[id number] Age/Sex: 79 / F ADM Date: 06/12/24 [facility]: Type: REG CLI Attending Dr: Erich Gillis DO Copies to: Erich Gillis DO Ordering Provider: Erich Gillis DO Date of Service: 06/12/24 XR/XR chest 2V*: R05.9 - Cough, unspecified Chest 2 views CLINICAL HISTORY: Bad cough. COMPARISON: Chest 02/18/2023 FINDINGS: Heart normal size. Lungs are clear. No free air. XR/XR chest 2V* IMPRESSION: NO ACUTE CARDIOPULMONARY ABNORMALITY. Impression dictated by: Naldo Baltazar Jr., D.ORemberto06/12/2024 3:26 PM Dictation Location: [facility] Transcribed By: [facility] 06/12/24 1526 Dictated By: Naldo Baltazar Jr, DO 06/12/24 1526 Signed By: 06/12/24 1526[facility] GroupCNPNon [id number] (SPNMMN) OHLA DOUGLAS ([id number]) 1945 F Date Time Provider Department 06/06/24 ZAK COHEN SPNMMN During your visit today, we recorded the following information about you: Sofiya Haynes LPN 06/06/2024 1:01 PM Signed [employer] message sent to patient with Procedure Instructions. Allergies As of Date: 06/06/2024 Noted Allergy Reaction ASA (SALICYLATES) 12/17/2004 Comments: causes platelet disfunction ASPIRIN 08/28/2018 16 - Unknown 14 - Other: See Comments LEVAQUIN (LEVOFLOXACIN) 12/29/2017 2 - Rash 14 - Other: See Comments Comments: Per pt feels like she on fire AVELOX (MOXIFLOXACIN HCL) 06/03/2011 5 - Intolerance Comments: C/O burning feeling on skin Date Reviewed: 03/20/2024 Reviewed by: Etienne Marcus, SHERON - Fully Assessed Reason for Visit: Preperations for Procedure [Other] Cmt: Mychart Prescriptions as of 06/06/2024 - fludrocortisone (FLORINEF) 0.1 mg tablet TAKE 2 TABLETS BY MOUTH ONCE DAILY - tirzepatide (MOUNJARO) 5 mg/0.5 mL pen injector Inject 5 mg subcutaneously one time a week. - pravastatin (PRAVACHOL) 10 mg tablet Take 1 tablet by mouth once daily. - nateglinide (STARLIX) 60 mg tablet Take 1 tablet by mouth three times a day before meals for 4 days. Start after your steroid injection. - gabapentin (NEURONTIN) 300 mg capsule Take 1 capsule by mouth two times a day AND 3 capsules daily at bedtime. Do all this for 90 days. - blood sugar diagnostic (TRUE METRIX GLUCOSE TEST STRIP) test strip Use with blood glucose test once daily - lancets (TRUEPLUS LANCETS) 33 gauge Use with blood glucose test once daily - Blood-Glucose Meter (TRUE METRIX GLUCOSE METER) 1 Each once daily. - ergocalciferol 50,000 unit capsule (VITAMIN D2, DRISDOL) TAKE 1 CAPSULE ONE TIME WEEKLY - clonazePAM (KLONOPIN) 0.5 mg tablet Take 1 tablet by mouth as needed. For restless leg syndrome - loratadine (CLARITIN) 10 mg tablet Take 10 mg by mouth once daily. - fluticasone (FLONASE) 50 mcg/actuation nasal spray Use 2 Sprays in each nostril twice daily. - pen needle, diabetic (COMFORT EZ PEN NEEDLES) 33 gauge x 5/16 ndle To inject weekly - esomeprazole (NEXIUM) 20 mg capsule Take 1 capsule by mouth DAILY (6 AM). - MULTIVITAMIN (MULTI-DAY ORAL) Take by mouth once daily. - calcium carbonate 600 mg-cholecalciferol 200 units (CALCIUM 600 + D,3,) 600 mg(1,500mg) -200 unit tab Take 1 tablet by mouth once daily. 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] 12/15/2004 11/10/2018 Pain in limb [M79.609] 12/15/2004 11/10/2018 ABNORMAL FINDINGS-BREAST [793.8] 12/17/2004 LOC OSTEOARTH NOS-HAND [M19.049] 12/29/2004 CARPAL TUNNEL SYNDROME [G56.00] 06/01/2005 Type 2 diabetes mellitus with stage 3a chronic *06/15/2007 MIXED HYPERLIPIDEMIA [E78.2] 06/15/2007 Bursitis of hip [M70.70] 04/18/2013 Vitamin D insufficiency [E55.9] 01/11/2014 Right buttock pain [M79.18] 03/21/2015 Pain in right hip [M25.551] 03/21/2015 Greater trochanteric bursitis of right hip [M70*03/21/2015 Iron deficiency anemia, unspecified [D50.9] 11/22/2018 Osteoarthritis of knee [M17.9] 12/05/2018 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] 04/13/2019 Orthostatic hypotension [I95.1] 12/24/2020 Dyspnea on exertion [R06.09] 12/24/2020 Fatigue [R53.83] 12/24/2020 Tinnitus, right ear [H93.11] 03/16/2021 Sensory hearing loss, 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] 03/16/2021 Restless legs syndrome [G25.81] 05/21/2021 Postmenopausal status [Z78.0] 05/21/2021 Mixed anxiety depressive disorder [F41.8] 05/21/2021 Diverticulitis [K57.92] 05/21/2021 Cough [R05.9] 05/21/2021 Chronic pain [G89.29] 05/21/2021 Bruises easily [R23.3] 05/21/2021 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*11/18/2021 Elevated AST (SGOT) [R74.01] 11/18/2021 Dizziness [R42] 11/18/2021 Abnormal weight gain [R63.5] 06/23/2023 Chronic bilateral back pain [M54.9, G89.29] 11/29/2023 Lumbosacral spondylosis with radiculopathy [M47*02/07/2024 Encounter Status:Closed by SOFIYA HAYNES on 06/06/24NoVan Wert County HospitalPNon [id number] (NIQ) HOLA DOUGLAS ([id number]) 1945 F Date Time Provider Department 06/05/24 ZAK COHEN During your visit today, we recorded the following information about you: Deborah Oscar 06/05/2024 10:01 AM Signed Call received for Zak Cohen DO regarding Hola Douglas. Caller: self Patient Identified by Name and : Hola Douglas 1945 Reason for Call: General - pt called she has the flu, still on [place] flu, she needs to reschedule her injection with Dr. Cohen. Please call. Is there any additional information the provider should know? No Last Office Visit: 05/23/2024 Next scheduled appointment: Visit date not found Best number to reach caller: [phone] Best time to reach caller: any Is it OK to leave a detailed voice message? Yes Elayne Hodges, RN 06/05/2024 10:38 AM Signed Forwarded to schedulers to cancel Allergies As of Date: 06/05/2024 Noted Allergy Reaction ASA (SALICYLATES) 12/17/2004 Comments: causes platelet disfunction ASPIRIN 08/28/2018 16 - Unknown 14 - Other: See Comments LEVAQUIN (LEVOFLOXACIN) 12/29/2017 2 - Rash 14 - Other: See Comments Comments: Per pt feels like she on fire AVELOX (MOXIFLOXACIN HCL) 06/03/2011 5 - Intolerance Comments: C/O burning feeling on skin Date Reviewed: 03/20/2024 Reviewed by: Etienne Marcus CT - Fully Assessed Reason for Visit: Appointment [186] Prescriptions as of 06/06/2024 - fludrocortisone (FLORINEF) 0.1 mg tablet TAKE 2 TABLETS BY MOUTH ONCE DAILY - tirzepatide (MOUNJARO) 5 mg/0.5 mL pen injector Inject 5 mg subcutaneously one time a week. - pravastatin (PRAVACHOL) 10 mg tablet Take 1 tablet by mouth once daily. - nateglinide (STARLIX) 60 mg tablet Take 1 tablet by mouth three times a day before meals for 4 days. Start after your steroid injection. - gabapentin (NEURONTIN) 300 mg capsule Take 1 capsule by mouth two times a day AND 3 capsules daily at bedtime. Do all this for 90 days. - blood sugar diagnostic (TRUE METRIX GLUCOSE TEST STRIP) test strip Use with blood glucose test once daily - lancets (TRUEPLUS LANCETS) 33 gauge Use with blood glucose test once daily - Blood-Glucose Meter (TRUE METRIX GLUCOSE METER) 1 Each once daily. - ergocalciferol 50,000 unit capsule (VITAMIN D2, DRISDOL) TAKE 1 CAPSULE ONE TIME WEEKLY - clonazePAM (KLONOPIN) 0.5 mg tablet Take 1 tablet by mouth as needed. For restless leg syndrome - loratadine (CLARITIN) 10 mg tablet Take 10 mg by mouth once daily. - fluticasone (FLONASE) 50 mcg/actuation nasal spray Use 2 Sprays in each nostril twice daily. - pen needle, diabetic (COMFORT EZ PEN NEEDLES) 33 gauge x 5/16 ndle To inject weekly - esomeprazole (NEXIUM) 20 mg capsule Take 1 capsule by mouth DAILY (6 AM). - MULTIVITAMIN (MULTI-DAY ORAL) Take by mouth once daily. - calcium carbonate 600 mg-cholecalciferol 200 units (CALCIUM 600 + D,3,) 600 mg(1,500mg) -200 unit tab Take 1 tablet by mouth once daily. 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] 12/15/2004 11/10/2018 Pain in limb [M79.609] 12/15/2004 11/10/2018 ABNORMAL FINDINGS-BREAST [793.8] 12/17/2004 LOC OSTEOARTH NOS-HAND [M19.049] 12/29/2004 CARPAL TUNNEL SYNDROME [G56.00] 06/01/2005 Type 2 diabetes mellitus with stage 3a chronic *06/15/2007 MIXED HYPERLIPIDEMIA [E78.2] 06/15/2007 Bursitis of hip [M70.70] 04/18/2013 Vitamin D insufficiency [E55.9] 01/11/2014 Right buttock pain [M79.18] 03/21/2015 Pain in right hip [M25.551] 03/21/2015 Greater trochanteric bursitis of right hip [M70*03/21/2015 Iron deficiency anemia, unspecified [D50.9] 11/22/2018 Osteoarthritis of knee [M17.9] 12/05/2018 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] 04/13/2019 Orthostatic hypotension [I95.1] 12/24/2020 Dyspnea on exertion [R06.09] 12/24/2020 Fatigue [R53.83] 12/24/2020 Tinnitus, right ear [H93.11] 03/16/2021 Sensory hearing loss, 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] 03/16/2021 Restless legs syndrome [G25.81] 05/21/2021 Postmenopausal status [Z78.0] 05/21/2021 Mixed anxiety depressive disorder [F41.8] 05/21/2021 Diverticulitis [K57.92] 05/21/2021 Cough [R05.9] 05/21/2021 Chronic pain [G89.29] 05/21/2021 Bruises easily [R23.3] 05/21/2021 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*11/18/2021 Elevated AST (SGOT) [R74.01] 11/18/2021 Dizziness [R42] 11/18/2021 Abnormal weight gain [R63.5] 06/23/2023 Chronic bilateral back pain [M54.9, G89.29] 11/29/2023 Lumbosacral spondylosis with radiculopathy [M47*02/07/2024 Encounter Status:Closed by ELAYNE HDZ on 06/06/24NoWay[facility] Cepheidon [id number]-CoV-2 (COVID-19) RNA HANNAH+probe Ql (Unsp spec)COVID CepheidOhiohealth Grady Memorial HospitalLaboratory - Microbiology and Antimicrobial susceptibilityon [id number]-CoV-2 (COVID-19) RNA HANNAH+probe Ql (Unsp spec)NegativeOhiohealth Grady Memorial HospitalNo Panel Informationon [id number] Influenza A (PCR)PositiveOhiohealth Grady Memorial HospitalPO Influenza B (PCR)NegativeOhiohealth Grady Memorial HospitalCNPNon [id number] Telephone ([facility] HOLA DOUGLAS ([id number]) 1945 F Date Time Provider Department 05/23/24 ZAK COHEN [facility] During your visit today, we recorded the following information about you: Sofiya Haynes LPN 05/23/2024 6:27 PM Signed Called and left patient a message for patient to give office a call back regarding her spine procedure on 06/07/24. Sofiya Haynes LPN 05/30/2024 1:24 PM Signed Phoned patient and spoke with patient to confirm appointment for Hola Douglas for spine procedure on 06/07/24. Patient notified that [facility] will call patient the night before with the time to arrive for injection. Patient verbalized understanding of the following: -Provided education on spine procedure and answered questions related to spine injection procedure. -Desk Editor is needed to drive patient home: Yes, patient is aware [employer] company flatbed driver will need to stay for procedure and drive her home. -NPO 6 hours prior to appointment, ok to take morning medications with sip of water. -Not to take any pain medications the day of injection to see how well injection works. -Do not take any NSAIDs/anti-inflammatories (mobic, ibuprofen, advil, aleve, etc) the day of procedure for all lumbar, hip, and sacroiliac joint procedures. Hold NSAIDs for 1 day prior to procedure for cervical cases. Allergies reviewed: Yes Allergy to IV contrast dye or steroids: No and not allergic to shellfish. Taking any antiplatelet/anticoagulant (blood thinners): No Taking aspirin 81mg: No Any open wounds/sores?: No Taking Antibiotics?: No Diabetic: Yes , notified that blood sugar will be taken at office and ok to take morning diabetes medication. Patient given number [phone], spine injections schedulers, if there is any need to reschedule/ change appointment during normal business hours. Active MyChart users were informed to read MyChart procedure instructions prior to appointment. AMBULATORY PATIENT EDUCATION TOPIC: SPINE INJECTION PROCEDURE, PRE-INJECTION AND POST- INJECTION INSTRUCTIONS READINESS TO LEARN COGNITIVE ABILITY: ALERT AND ORIENTED MOTIVATION TO LEARN: Eager FAMILY SUPPORT: Unable to assess - Family not present INSTRUCTION PROVIDED TO: Patient PATIENT LEARNS BEST BY: INDIVIDUAL INSTRUCTION FACTORS AFFECTING LEARNING: None PHYSICAL LIMITATIONS AFFECTING LEARNING: None LEARNING RESPONSE METHOD OF INSTRUCTION: TEACH BACK AND INDIVIDUAL INSTRUCTION PATIENT / FAMILY RESPONSE: VERBALIZED UNDERSTANDING OF PRE AND POST INJECTION INSTRUCTIONS Allergies As of Date: 05/23/2024 Noted Allergy Reaction ASA (SALICYLATES) 12/17/2004 Comments: causes platelet disfunction ASPIRIN 08/28/2018 16 - Unknown 14 - Other: See Comments LEVAQUIN (LEVOFLOXACIN) 12/29/2017 2 - Rash 14 - Other: See Comments Comments: Per pt feels like she on fire AVELOX (MOXIFLOXACIN HCL) 06/03/2011 5 - Intolerance Comments: C/O burning feeling on skin Date Reviewed: 03/20/2024 Reviewed by: Etienne Marcus, CT - Fully Assessed Reason for Visit: Preperations for Procedure Call [Other] Prescriptions as of 05/30/2024 - fludrocortisone (FLORINEF) 0.1 mg tablet TAKE 2 TABLETS BY MOUTH ONCE DAILY - tirzepatide (MOUNJARO) 5 mg/0.5 mL pen injector Inject 5 mg subcutaneously one time a week. - pravastatin (PRAVACHOL) 10 mg tablet Take 1 tablet by mouth once daily. - nateglinide (STARLIX) 60 mg tablet Take 1 tablet by mouth three times a day before meals for 4 days. Start after your steroid injection. - gabapentin (NEURONTIN) 300 mg capsule Take 1 capsule by mouth two times a day AND 3 capsules daily at bedtime. Do all this for 90 days. - blood sugar diagnostic (TRUE METRIX GLUCOSE TEST STRIP) test strip Use with blood glucose test once daily - lancets (TRUEPLUS LANCETS) 33 gauge Use with blood glucose test once daily - Blood-Glucose Meter (TRUE METRIX GLUCOSE METER) 1 Each once daily. - ergocalciferol 50,000 unit capsule (VITAMIN D2, DRISDOL) TAKE 1 CAPSULE ONE TIME WEEKLY - clonazePAM (KLONOPIN) 0.5 mg tablet Take 1 tablet by mouth as needed. For restless leg syndrome - loratadine (CLARITIN) 10 mg tablet Take 10 mg by mouth once daily. - fluticasone (FLONASE) 50 mcg/actuation nasal spray Use 2 Sprays in each nostril twice daily. - pen needle, diabetic (COMFORT EZ PEN NEEDLES) 33 gauge x 5/16 ndle To inject weekly - esomeprazole (NEXIUM) 20 mg capsule Take 1 capsule by mouth DAILY (6 AM). - MULTIVITAMIN (MULTI-DAY ORAL) Take by mouth once daily. - calcium carbonate 600 mg-cholecalciferol 200 units (CALCIUM 600 + D,3,) 600 mg(1,500mg) -200 unit tab Take 1 tablet by mouth once daily. 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 Allergies As of Date: 05/21/2024 Noted Allergy Reaction ASA (SALICYLATES) 12/17/2004 Comments: causes platelet disfunction ASPIRIN 08/28/2018 16 - Unknown 14 - Other: See Comments LEVAQUIN (LEVOFLOXACIN) 12/29/2017 2 - Rash 14 - Other: See Comments Comments: Per pt feels like she on fire AVELOX (MOXIFLOXACIN HCL) 06/03/2011 5 - Intolerance Comments: C/O burning feeling on skin Date Reviewed: 03/20/2024 Reviewed by: Etienne Marcus CT - Fully Assessed Reason for Visit: Preperations for Procedure [Other] Cmt: Mychart Prescriptions as of 05/21/2024 - fludrocortisone (FLORINEF) 0.1 mg tablet TAKE 2 TABLETS BY MOUTH ONCE DAILY - tirzepatide (MOUNJARO) 5 mg/0.5 mL pen injector Inject 5 mg subcutaneously one time a week. - pravastatin (PRAVACHOL) 10 mg tablet Take 1 tablet by mouth once daily. - nateglinide (STARLIX) 60 mg tablet Take 1 tablet by mouth three times a day before meals for 4 days. Start after your steroid injection. - gabapentin (NEURONTIN) 300 mg capsule Take 1 capsule by mouth two times a day AND 3 capsules daily at bedtime. Do all this for 90 days. - blood sugar diagnostic (TRUE METRIX GLUCOSE TEST STRIP) test strip Use with blood glucose test once daily - lancets (TRUEPLUS LANCETS) 33 gauge Use with blood glucose test once daily - Blood-Glucose Meter (TRUE METRIX GLUCOSE METER) 1 Each once daily. - ergocalciferol 50,000 unit capsule (VITAMIN D2, DRISDOL) TAKE 1 CAPSULE ONE TIME WEEKLY - clonazePAM (KLONOPIN) 0.5 mg tablet Take 1 tablet by mouth as needed. For restless leg syndrome - loratadine (CLARITIN) 10 mg tablet Take 10 mg by mouth once daily. - fluticasone (FLONASE) 50 mcg/actuation nasal spray Use 2 Sprays in each nostril twice daily. - pen needle, diabetic (COMFORT EZ PEN NEEDLES) 33 gauge x 5/16 ndle To inject weekly - esomeprazole (NEXIUM) 20 mg capsule Take 1 capsule by mouth DAILY (6 AM). - MULTIVITAMIN (MULTI-DAY ORAL) Take by mouth once daily. - calcium carbonate 600 mg-cholecalciferol 200 units (CALCIUM 600 + D,3,) 600 mg(1,500mg) -200 unit tab Take 1 tablet by mouth once daily. 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] 12/15/2004 11/10/2018 Pain in limb [M79.609] 12/15/2004 11/10/2018 ABNORMAL FINDINGS-BREAST [793.8] 12/17/2004 LOC OSTEOARTH NOS-HAND [M19.049] 12/29/2004 CARPAL TUNNEL SYNDROME [G56.00] 06/01/2005 Type 2 diabetes mellitus with stage 3a chronic *06/15/2007 MIXED HYPERLIPIDEMIA [E78.2] 06/15/2007 Bursitis of hip [M70.70] 04/18/2013 Vitamin D insufficiency [E55.9] 01/11/2014 Right buttock pain [M79.18] 03/21/2015 Pain in right hip [M25.551] 03/21/2015 Greater trochanteric bursitis of right hip [M70*03/21/2015 Iron deficiency anemia, unspecified [D50.9] 11/22/2018 Osteoarthritis of knee [M17.9] 12/05/2018 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] 04/13/2019 Orthostatic hypotension [I95.1] 12/24/2020 Dyspnea on exertion [R06.09] 12/24/2020 Fatigue [R53.83] 12/24/2020 Tinnitus, right ear [H93.11] 03/16/2021 Sensory hearing loss, 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] 03/16/2021 Restless legs syndrome [G25.81] 05/21/2021 Postmenopausal status [Z78.0] 05/21/2021 Mixed anxiety depressive disorder [F41.8] 05/21/2021 Diverticulitis [K57.92] 05/21/2021 Cough [R05.9] 05/21/2021 Chronic pain [G89.29] 05/21/2021 Bruises easily [R23.3] 05/21/2021 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*11/18/2021 Elevated AST (SGOT) [R74.01] 11/18/2021 Dizziness [R42] 11/18/2021 Abnormal weight gain [R63.5] 06/23/2023 Chronic bilateral back pain [M54.9, G89.29] 11/29/2023 Lumbosacral spondylosis with radiculopathy [M47*02/07/2024 Encounter Status:Closed by SOFIYA HAYNES on 05/21/24NoTrinity Health System West CampusCNPNon [id number] (SPNMMN) HOLA DOUGLAS ([id number]) 1945 F Date Time Provider Department 05/14/24 STEVE WAGONER SPNMMN During your visit today, we recorded the following information about you: Steve Wagoner MD 05/14/2024 12:45 PM Signed Last visit 03/01. Reviewed the hip and lumbar x-rays-no fracture noted. Please get update from patient. MD Ranulfo Hsieh Jessica, RN 05/14/2024 3:02 PM Signed Neuro SPINE CARE COORDINATION QUICK NOTE Last OV 03/01 Spoke with patient to discuss hip and lumbar XR results and get an update with how she is doing. States she is still having pain, not getting any better. Pain is the same area, low back and leg pain. I told her that Dr Wagoner may consider placing an order for a spine surgery consult if she was interested. She asked if it was possible to get another injection. Per office note: If not better may consider spine surgery consult or repeat ANGELA. Steve Wagoner MD 05/15/2024 9:35 AM Signed Order placed for repeat ANGELA to see if helps. Please assist with f/u after, 2-4 weeks, can be virtual. MD Rizwana Hsieh Tagreed M, MD 05/15/2024 9:36 AM Signed Addended by: STEVE WAGONER on: 05/15/2024 09:36 AM Modules accepted: Orders Allergies As of Date: 05/14/2024 Noted Allergy Reaction ASA (SALICYLATES) 12/17/2004 Comments: causes platelet disfunction ASPIRIN 08/28/2018 16 - Unknown 14 - Other: See Comments LEVAQUIN (LEVOFLOXACIN) 12/29/2017 2 - Rash 14 - Other: See Comments Comments: Per pt feels like she on fire AVELOX (MOXIFLOXACIN HCL) 06/03/2011 5 - Intolerance Comments: C/O burning feeling on skin Date Reviewed: 03/20/2024 Reviewed by: Etienne Marcus CT - Fully Assessed Reason for Visit: Results [95] Primary Visit Diagnosis:Spinal stenosis of lumbar region, unspecified whether neurogenic claudication present [M48.061] Other Visit Diagnosis:Lumbosacral spondylosis with radiculopathy [M47.27] Order(s):SPINE INTERVENTION PROCEDURE [[id number]] Order #: [id number] Prescriptions as of 05/15/2024 - tirzepatide (MOUNJARO) 5 mg/0.5 mL pen injector Inject 5 mg subcutaneously one time a week. - fludrocortisone (FLORINEF) 0.1 mg tablet Take 2 tablets by mouth once daily. - pravastatin (PRAVACHOL) 10 mg tablet Take 1 tablet by mouth once daily. - nateglinide (STARLIX) 60 mg tablet Take 1 tablet by mouth three times a day before meals for 4 days. Start after your steroid injection. - gabapentin (NEURONTIN) 300 mg capsule Take 1 capsule by mouth two times a day AND 3 capsules daily at bedtime. Do all this for 90 days. - blood sugar diagnostic (TRUE METRIX GLUCOSE TEST STRIP) test strip Use with blood glucose test once daily - lancets (TRUEPLUS LANCETS) 33 gauge Use with blood glucose test once daily - Blood-Glucose Meter (TRUE METRIX GLUCOSE METER) 1 Each once daily. - ergocalciferol 50,000 unit capsule (VITAMIN D2, DRISDOL) TAKE 1 CAPSULE ONE TIME WEEKLY - clonazePAM (KLONOPIN) 0.5 mg tablet Take 1 tablet by mouth as needed. For restless leg syndrome - loratadine (CLARITIN) 10 mg tablet Take 10 mg by mouth once daily. - fluticasone (FLONASE) 50 mcg/actuation nasal spray Use 2 Sprays in each nostril twice daily. - pen needle, diabetic (COMFORT EZ PEN NEEDLES) 33 gauge x 5/16 ndle To inject weekly - esomeprazole (NEXIUM) 20 mg capsule Take 1 capsule by mouth DAILY (6 AM). - MULTIVITAMIN (MULTI-DAY ORAL) Take by mouth once daily. - calcium carbonate 600 mg-cholecalciferol 200 units (CALCIUM 600 + D,3,) 600 mg(1,500mg) -200 unit tab Take 1 tablet by mouth once daily. 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] 12/15/2004 11/10/2018 Pain in limb [M79.609] 12/15/2004 11/10/2018 ABNORMAL FINDINGS-BREAST [793.8] 12/17/2004 LOC OSTEOARTH NOS-HAND [M19.049] 12/29/2004 CARPAL TUNNEL SYNDROME [G56.00] 06/01/2005 Type 2 diabetes mellitus with stage 3a chronic *06/15/2007 MIXED HYPERLIPIDEMIA [E78.2] 06/15/2007 Bursitis of hip [M70.70] 04/18/2013 Vitamin D insufficiency [E55.9] 01/11/2014 Right buttock pain [M79.18] 03/21/2015 Pain in right hip [M25.551] 03/21/2015 Greater trochanteric bursitis of right hip [M70*03/21/2015 Iron deficiency anemia, unspecified [D50.9] 11/22/2018 Osteoarthritis of knee [M17.9] 12/05/2018 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] 04/13/2019 Orthostatic hypotension [I95.1] 12/24/2020 Dyspnea on exertion [R06.09] 12/24/2020 Fatigue [R53.83] 12/24/2020 Tinnitus, right ear [H93.11] 03/16/2021 Sensory hearing loss, 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] 03/16/2021 Restless legs syndrome [G25.81] 05/21/2021 Postmenopausal status [Z78.0] 05/21/2021 Mixed anxiety depressive disorder [F41.8] 05/21/2021 Diverticulitis [K57.92] 05/21/2021 Cough [R05.9] 05/21/2021 Chronic pain [G89.29] 05/21/2021 Bruises easily [R23.3] 05/21/2021 Type 2 diabetes m (more content not included)...NormalSelect Medical Specialty [facility] ALBUMIN/CREATININE RATIO, URINEon 56-76-1130Motabip DL <= 20 mg/L (U) [Mass/Vol] 23.2 mg/LNormalAvon HospitalComment on above:Order Comment: Specimen Type: BLOOD SPECIMEN Ordering Facility: [facility] Address: [address] [place], [place] [address]Performed By: #### 3016-3, 87085-4, 63838-6 #### [facility] CLIA [id number] [address] [place] [address] [place] AMERICAAlbumin/Creatinine (U) [Mass ratio]6 mg/g Normal<30Avon HospitalComment on above:Order Comment: Specimen Type: BLOOD SPECIMEN Ordering Facility: [facility] Address: [address] [id number] Comment: Adult Male and Female Nephrotic Criteria: <30 mg/g is considered normal to mildly increased 30-300 mg/g is considered moderately increased >300 mg/g is considered severely increased KDIGO. (2013). KDIGO 2012 Clinical Practice Guideline for the Evaluation and Management of Chronic Kidney Disease. Official Journal of the International Society of Nephrology, 3(1), 1-150.Performed By: #### 3016-3, 57039-9, 32892-2 #### [facility] CLIA [id number] [address] [place] [address] [place] AMERICACreatinine (U) [Mass/Vol]384.3 mg/dLHigh 20.0-300.0Avon HospitalComment on above:Order Comment: Specimen Type: BLOOD SPECIMEN Ordering Facility: [facility] Address: [address] [id number] By: #### 3016-3, 57151-5, 02305-3 #### [facility] CLIA [id number] [address] [place] [address] [place] AMERICACholesterol in LDL Calc [Mass/Vol]on 47-35-3675Auurmnnuvdy in LDL [Mass/Vol]Cholesterol in LDL [Mass/volume] in Serum or Plasma by calculationHigh<100Ohio[facility] HospitalComment on above:<100 mg/dL, Optimal 100-129 mg/dL, Near optimal/above optimal 130-159 mg/dL, Borderline high 160-189 mg/dL, High>189 mg/dL, Very highSecondary prevention optimal LDL Cholesterol levels are recommended to be < 70 mg/dL Cholesterol in VLDL Calc [Mass/Vol]on 15-95-8470Fviadzonxvx in VLDL [Mass/Vol] Cholesterol in VLDL [Mass/volume] in Serum or Plasma by calculation<30[facility] Memorial HospitalComprehensive metabolic 2000 panelon 96-16-8682Klsuqsz [Mass/Vol]4.1 g/dLNormal3.9-4.9Avon HospitalComment on above:Order Comment: Specimen Type: BLOOD SPECIMEN Ordering Facility: [facility] Address: [address] [place], [place] [address]Performed By: #### 3016-3, 26660-7, 73899-9 #### [facility] CLIA [id number] [address] [place] [address] [place] AMERICAALP [Catalytic activity/Vol]94 U/LNormal 34-123Avon HospitalComment on above:Order Comment: Specimen Type: BLOOD SPECIMEN Ordering Facility: [facility] Address: [address] [phone] By: #### 3016-3, 20023-5, 79461-5 #### [facility] CLIA [id number] [address] [place] [address] [place] AMERICAALT [Catalytic activity/Vol]25 U/LNormal 7-38Avon HospitalComment on above:Order Comment: Specimen Type: BLOOD SPECIMEN Ordering Facility: [facility] Address: [address] [place], [place] [address]Performed By: #### 3016-3, 91725-2, 44861-4 #### [facility] CLIA [id number] [address] [place] [address] [place] AMERICAAnion gap [Moles/Vol]9 mmol/LNormal8-15 [facility] HospitalComment on above:Order Comment: Specimen Type: BLOOD SPECIMEN Ordering Facility: [facility] Address: [address] [place], [place] [address]Performed By: #### 3016-3, 48597-9, 44179-9 #### [facility] CLIA [id number] [address] [place] [address] [place] AMERICAAST [Catalytic activity/Vol]28 U/LNormal 13-35[facility] HospitalComment on above:Order Comment: Specimen Type: BLOOD SPECIMEN Ordering Facility: [facility] Address: [address] [place], [place] [address]Performed By: #### 3016-3, 45271-3, 55842-6 #### [facility] CLIA [id number] [address] [place] [address] [place] AMERICABilirubin [Mass/Vol]0.4 mg/dLNormal 0.2-1.3Aann [facility] HospitalComment on above:Order Comment: Specimen Type: BLOOD SPECIMEN Ordering Facility: [facility] Address: [address] [place], [place] [address]Performed By: #### 3016-3, 08920-7, 76756-5 #### [facility] CLIA [id number] [address] [place] [address] [place] AMERICACalcium [Mass/Vol]8.8 mg/dLNormal8.5-10.2 [facility] HospitalComment on above:Order Comment: Specimen Type: BLOOD SPECIMEN Ordering Facility: [facility] Address: [address] [place], [place] [address]Performed By: #### 3016-3, 09866-9, 29758-0 #### [facility] CLIA [id number] [address] [place] [address] [place] AMERICAChloride [Moles/Vol]109 mmol/WPbnr56-407 [facility] HospitalComment on above:Order Comment: Specimen Type: BLOOD SPECIMEN Ordering Facility: [facility] Address: [address] [place] [address]Xfilabatd By: #### 3016-3, 61627-8, 73197-8 #### [facility] CLIA [id number] [address] [place] [address] [place] AMERICACO2 [Moles/Vol]26 mmol/TPntfup47-80Sigq HospitalComment on above:Order Comment: Specimen Type: BLOOD SPECIMEN Ordering Facility: [facility] Address: [address] [place] [address]Wiwueqdmd By: #### 3016-3, 46642-8, 28935-2 #### [facility] CLIA [id number] [address] [place] [address] [place] AMERICACreatinine [Mass/Vol]1.20 mg/dLHigh 0.58-0.96[facility] HospitalComment on above:Order Comment: Specimen Type: BLOOD SPECIMEN Ordering Facility: [facility] Address: [address] [place] [address]Odjeojlfc By: #### 3016-3, 09037-8, 30485-4 #### [facility] CLIA [id number] [address] [place] [address] [place] AMERICACreatinine and Glomerular filtration rate.predicted panel (S/P/Bld)47 mL/min/1.73m???Low>=60Av HospitalComment on above:Order Comment: Specimen Type: BLOOD SPECIMEN Ordering Facility: [facility] Address: [address] [place] [address]Rychlv Comment: Estimated Glomerular Filtration Rate (eGFR) is calculated using the 2020 CKD-EPI cre atinine equation. This equation utilizes serum creatinine, sex, and age as parameters. The creatinine assay has traceable calibration to isotope dilution- mass spectrometry. Refer to KDIGO guidelines for clinical interpretation. In patients with unstable renal function, e.g. those with acute kidney injury, the eGFR may not accurately reflect actual GFR.Performed By: #### 3016-3, 10274-7, 71691-4 #### [facility] CLIA [id number] [address] [place] [address] [place] AMERICAGlucose [Mass/Vol]96 mg/qMOziyqj14-84Nkiw HospitalComment on above:Order Comment: Specimen Type: BLOOD SPECIMEN Ordering Facility: [facility] Address: [address] [place], [place] [address]Result Comment: The [place] Diabetes Association (ADA) provides guidance for cutoff values for fasting glucose and random glucose. The ADA defines fasting as no [...] Standards of Medical Care in Diabetes 2016, [place] Diabetes Association. Diabetes Care. 2016.39(Suppl 1).Performed By: #### 3016-3, 47411-5, 28327-2 #### [facility] CLIA [id number] [address] [place] [address] [place] AMERICAPotassium [Moles/Vol]4.4 mmol/LNormal 3.7-5.1Avo HospitalComment on above:Order Comment: Specimen Type: BLOOD SPECIMEN Ordering Facility: [facility] Address: [address] [place], [place] [address]Pwdmrurif By: #### 3016-3, 67003-1, 12209-4 #### [facility] CLIA [id number] [address] [place] [address] [place] AMERICAProtein [Mass/Vol]6.7 g/dLNormal6.3-8.0 [facility] HospitalComment on above:Order Comment: Specimen Type: BLOOD SPECIMEN Ordering Facility: [facility] Address: [address] [place], [place] [address]Performed By: #### 3016-3, 58116-1, 57206-4 #### [facility] CLIA [id number] [address] [place] [address] [place] AMERICASodium [Moles/Vol]144 mmol/DGyghzt447-720 [facility] HospitalComment on above:Order Comment: Specimen Type: BLOOD SPECIMEN Ordering Facility: [facility] Address: [address] [place], [place] [id number] By: #### 3016-3, 32244-1, #### [facility] CLIA [id number] [address] [place] [address] [place] AMERICAUrea nitrogen [Mass/Vol]20 mg/dLNormal 7-21[facility] HospitalComment on above:Order Comment: Specimen Type: BLOOD SPECIMEN Ordering Facility: [facility] Address: [address] [place], [place] [id number] By: #### 3016-3, , #### [facility] IA [id number] [address] [place] [address] [place] AMERICAGlucose mean value [Mass/volume] in Blood Estimated from glycated hemoglobinon 77-71-9686Pklyrxb glucose Estimated from glycated hemoglobin (Bld) [Mass/Vol]Glucose mean value [Mass/volume] in Blood Estimated from glycated hemoglobinOhiohealth Grady Memorial HospitalComment on above:eAG: (Estimated average glucose) is a calculated value from HgbA1c and is physician relations representative of the average blood glucose level in the last 2-3 month period. HbA1c (Bld)on 22-39-4550Dzpgzll glucose Estimated from glycated hemoglobin (Bld) [Mass/Vol]140 mg/dLNoOverlook Medical Center HospitalComment on above:Order Comment: Specimen Type: BLOOD SPECIMEN Ordering Facility: [facility] Address: [address] [place] [address]Eyzefy Comment: eAG: (Estimated average glucose) is a calculated value from HgbA1c and is physician relations representative of the average blood glucose level in the last 2-3 month period.Performed By: #### 12962-1 #### [facility] CLIA [id number] [address] [place] [address] [place] FAMJJKOOwH9k (Bld) [Mass fraction] 6.5 %High4.3-5.6AMountain Point Medical CenterComment on above:Order Comment: Specimen Type: BLOOD SPECIMEN Ordering Facility: [facility] Address: [address] [place], [place] [address]Result Comment: [place] Diabetes Association guidelines indicate that patients with HgbA1c in the range 5.7-6.4% are at increased risk for development of diabetes, and intervention by lifestyle modification may be beneficial. HgbA1c greater or equal to 6.5% is considered diagnostic of diabetes.Performed By: #### 64420-9 #### [facility] CLIA [id number] [address] [place] [address] [place] AMERICAHemoglobin A1c percentageon 56-31-4012TzZ4a (Bld) [Mass fraction]Hemoglobin A1c percentageHigh4.3-5.6 [facility] HospitalComment on above:[place] Diabetes Association guidelines indicate that patients with HgbA1c in the range 5.7-6.4% are at increased risk for development of diabetes, and intervention by lifestyle modification may be beneficial. HgbA1c greater or equal to 6.5% is considered diagnostic of diabetes.Laboratory - Chemistry and Chemistry - challengeon 25-73-8148Zyxezsi [Mass/Vol]4.1 g/dL3.9-4.9[facility] HospitalALP [Catalytic activity/Vol]94 U/R85-971AsjkavgfjOhiohealth Grady Memorial HospitalALT [Catalytic activity/Vol]25 U/L7-38[facility] HospitalAST [Catalytic activity/Vol]28 U/P11-69LaodatlscOhiohealth Grady Memorial HospitalBilirubin [Mass/Vol]0.4 mg/dL0.2-1.3FSamaritan HospitalCalcium [Mass/Vol]8.8 mg/dL8.5-10.2FSamaritan HospitalChloride [Moles/Vol]109 mmol/L Eyox15-381AckjisdygOhiohealth Grady Memorial HospitalCholesterol [Mass/Vol]175 mg/dL<200 [facility] HospitalComment on above:<200 mg/dL, Desirable 200-239 mg/dL, Borderline high>239 mg/dL, HighCholesterol in HDL [Mass/Vol]44 mg/dL>39 [facility] HospitalComment on above:40-59 mg/dL, Acceptable>59 mg/dL, High: Negative risk factor for coronary heart disease<40 mg/dL, Low: Positive risk factor for coronary heart diseaseCO2 [Moles/Vol]26 mmol/L22-30 [facility] HospitalCreatinine [Mass/Vol]1.20 mg/dLHigh0.58-0.96 [facility] HospitalGlucose [Mass/Vol]96 mg/sE48-85GtofgftliOhiohealth Grady Memorial HospitalComment on above:The [place] Diabetes Association (ADA) provides guidance for cutoff [...] diabetes.Reference: Standardsof Medical Care in Diabetes 2016, [place] Diabetes Association. Diabetes Care. 2016.39(Suppl 1).Potassium [Moles/Vol]4.4 mmol/L 3.7-5.1FKindred Hospital Daytonodium [Moles/Vol]144 mmol/G622-118 [facility] HospitalTriglyceride [Mass/Vol]116 mg/dL<150Ohio[facility] Memorial HospitalComment on above:<150 mg/dL, Normal 150-199 mg/dL, Borderline high 200-499 mg/dL, High>499 mg/dL, Very highTSH Qn4.560 m[IU]/LHigh 0.270-4.200Ohio[facility] Memorial HospitalUrea nitrogen [Mass/Vol]20 mg/dL7-21 [facility] HospitalLipid 1996 panelon 49-91-9405Jfdnumjwqef [Mass/Vol]175 mg/dLNormal<200Avon HospitalComment on above:Order Comment: Specimen Type: BLOOD SPECIMEN Ordering Facility: [facility] Address: [address] [place], [place] [address]Igwgqa Comment: <200 mg/dL, Desirable 200-239 mg/dL, Borderline high >239 mg/dL, HighPerformed By: #### 3016-3, 66590-4, 68245-4 #### [facility] CLIA [id number] [address] [facility] [place] [address] [place] AMERICACholesterol in HDL [Mass/Vol]44 mg/dL Normal>39Avon HospitalComment on above:Order Comment: Specimen Type: BLOOD SPECIMEN Ordering Facility: [facility] Address: [address] [place] [address]Tiudqu Comment: 40-59 mg/dL, Acceptable >59 mg/dL, High: Negative risk factor for coronary heart disease <40 mg/dL, Low: Positive risk factor for coronary heart diseasePerformed By: #### 3016-3, 28553-9, 83257-0 #### [facility] CLIA [id number] [address] [facility] [place] [address] [place] AMERICACholesterol in LDL [Mass/Vol]108 mg/dL High<100Avon HospitalComment on above:Order Comment: Specimen Type: BLOOD SPECIMEN Ordering Facility: [facility] Address: [address] [place] [address]Enmecw Comment: <100 mg/dL, Optimal 100-129 mg/dL, Near optimal/above optimal 130-159 mg/dL, Borderline high 160-189 mg/dL, High >189 mg/dL, Very high Secondary prevention optimal LDL Cholesterol levels are recommended to be < 70 mg/dLPerformed By: #### 3016-3, 79018-2, 68413-7 #### [facility] CLIA [id number] [address] [place] [address] [place] AMERICACholesterol in LDL/Cholesterol in HDL [Mass ratio]2.45 {ratio}Normal<2.54Avon HospitalComment on above:Order Comment: Specimen Type: BLOOD SPECIMEN Ordering Facility: [facility] Address: [address] [place] [address]Vquqtp Comment: Reference: 1. National Cholesterol Education Program ATP III Guideline At-A-Glance Quick Desk Reference: National Heart, Lung, and Blood [place]. National Institutes of Health. 2001: NIH Publication No. 01-3305. 2. An International Atherosclerosis Society position paper: global recommendations for the management of dyslipidemia: executive summary, Atherosclerosis. 2014: 232(2):410-413.Performed By: #### 3016-3, 93501-9, 53396- 1 #### [facility] CLIA [id number] [address] [facility] [place] [address] [place] AMERICACholesterol in VLDL [Mass/Vol]23 mg/dL Normal<30Avon HospitalComment on above:Order Comment: Specimen Type: BLOOD SPECIMEN Ordering Facility: [facility] Address: [address] [place], [place] [address]Performed By: #### 3016-3, 63796-5, 42852-7 #### [facility] CLIA [id number] [facility] [place] [address] [place] OF AMERICACholesterol non HDL [Mass/Vol]131 mg/dL High<130Avon HospitalComment on above:Order Comment: Specimen Type: BLOOD SPECIMEN Ordering Facility: [facility] Address: [address] [place], [place] [address]Result Comment: <130 mg/dL, Optimal 130-159 mg/dL, Near optimal/above optimal 160-189 mg/dL, Borderline high 190-219 mg/dL, High >219 mg/dL, Very high Secondary prevention optimal non HDL Cholesterol levels are recommended to be <100 mg/dLPerformed By: #### 3016-3, 57054-6, 58712-3 #### [facility] CLIA [id number] [address] [place] [address] [place] OF AMERICACholesterol.total/Cholesterol in HDL [Mass ratio]3.98 {ratio}Normal<5.10Avon HospitalComment on above:Order Comment: Specimen Type: BLOOD SPECIMEN Ordering Facility: [facility] Address: [address] [place], [place] [address]Performed By: #### 3016-3, 85937-4, 13642-6 #### [facility] CLIA [id number] [address] [place] [address] UNITED STATES OF AMERICAFASTING TIME12 hoursNicholas [facility] Hospital Comment on above:Order Comment: Specimen Type: BLOOD SPECIMEN Ordering Facility: [facility] Address: [address] [place] [id number] By: #### 3016-3, 50463-7, 27482-2 #### [facility] CLIA [id number] [place] [address] [place] OF AMERICATriglyceride [Mass/Vol]116 mg/dLNormal <150Be[facility] Island HospitalComment on above:Order Comment: Specimen Type: BLOOD SPECIMEN Ordering Facility: [facility] Address: [address] [place], [place] [id number] Comment: <150 mg/dL, Normal 150-199 mg/dL, Borderline high 200-499 mg/dL, High >499 mg/dL, Very highPerformed By: #### 3016-3, 58533-2, 08541-1 #### [facility] CLIA [id number] [address] [place] [address] [facility] Panel Informationon 54-15-7250Hqoof Albumin/Creatinine Ratio6 mg/g<30Ohio[facility] Grady Memorial HospitalComment on above:Adult Male and Female Nephrotic Criteria:<30 mg/g is considered normal to mildly zckzjxiey71-369rf/g is considered moderately increased>300 mg/g is considered severely increasedKDIGO. (2013). KDIGO 2012 Clinical Practice Guideline for the Evaluation and Management of Chronic Kidney Disease. Official Journal of the International Society of Nephrology, 3(1), 1-150.Urine Microalbumin mg/dl23.2 mg/LFSamaritan HospitalUrine Random Cmoetzwtdt367.3 mg/tFAxhq72.0-300.0Ohio[facility] Gr[facility] Memorial HospitalEstimated GFR (CKD-EPI)47 mL/min/1.73m???Low>=60Ohio[facility] Grady Memorial HospitalComment on above:Estimated Glomerular Filtration Rate (eGFR) is calculated using the 2020 CKD-EPI creatinine equation. This equation utilizes serum creatinine, sex, and age as parameters. The creatinine assay has traceable calibration to isotope dilution-mass spectrometry. Refer to KDIGO guidelines for clinical inte rpretation. In patients with unstable renal function, e.g. those with acute kidney injury, the eGFRmay not accurately reflect actual GFR.Fasting Uixuiw69 hours hrsOhiohealth Grady Memorial HospitalNon-HDL Wippmsfyqkg433 mg/dLHigh<130 [facility] HospitalComment on above:<130 mg/dL, Optimal 130-159 mg/dL, Near optimal/above optimal 160-189 mg/dL, Borderline high 190-219 mg/dL, High>219 mg/dL, Very highSecondary prevention optimal non HDL Cholesterol levels are recommended to be <100 mg/dLRadiology Study observation (narrative) [facility] HealthProtein [Mass/volume] in Serum or Plasmaon 89-80-8437Wgcxqgu [Mass/Vol]Protein [Mass/volume] in Serum or Plasma6.3-8.0[facility] Hospitalerum or plasma anion gap determinationon 07-29-4164Vaslo gap [Moles/Vol]Serum or plasma anion gap determination8-15[facility] Hospitalerum or plasma total cholesterol/high density lipoprotein (HDL) cholesterol mass jewel 25-97-8399Owfqnyulolm.total/Cholesterol in HDL [Mass ratio]Serum or plasma total cholesterol/high density lipoprotein (HDL) cholesterol mass rat<5.10Ohio[facility] Gr[facility] Memorial HospitalTS SerPl-aCncon 13-27-7210MOO Qn4.560 m[IU]/LHigh0.270-4.200Av HospitalComment on above:Order Comment: Specimen Type: BLOOD SPECIMEN Ordering Facility: [facility] Address: [address] [place], [place] [address]Ozpgjnmfi By: #### 3016-3, 05380-2, 08159-2 #### [facility] CLIA [id number] [facility] [place] [address] [place] OF AMERICAXR HIP 3V PELV+ AP/LAT RTon 55-81-5838QJ HIP 3V PELV+ AP/LAT RT* * *Final Report* * * DATE OF EXAM: May 11 2024 10:24AM VHX 5352 - XR HIP 3V PELV+ AP/LAT RT / PROCEDURE REASON: Fall, initial encounter * * * * Physician Interpretation * * * * HISTORY: Fall, initial encounter . TECHNIQUE: XR HIP 3V PELV+ AP/LAT RT Laterality: RIGHT Number of different views (projections): 3 COMPARISON: None available. RESULT: There is no acute fracture or dislocation. Mild right hip osteoarthritis. Degenerative changes at the bilateral sacroiliac and left hip joints and pubic symphysis. No soft tissue swelling. No other significant abnormality. IMPRESSION: Mild right hip osteoarthritis. Fire Marshal: HEIDI Transcribe Date/Time: May 11 2024 12:22P Dictated by : JUNITO LOWERY MD This examination was interpreted and the report reviewed and electronically signed by: JUNITO LOWERY MD on May 11 2024 12:23PM EST [id number] Medical CenterXR LUMBAR 3V AP/LAT/L5-S1on 05-11-2024 XR LUMBAR 3V AP/LAT/L5-S1* * *Final Report* * * DATE OF EXAM: May 11 2024 10:24AM VHX 5228 - XR LUMBAR 3V AP/LAT/L5-S1 / PROCEDURE REASON: Fall, initial encounter * * * * Physician Interpretation * * * * HISTORY: Fall, initial encounter . TECHNIQUE: XR LUMBAR 3V AP/LAT/L5-S1 Laterality: NOT APPLICABLE Number of different views (projections): 3 COMPARISON: Radiographs dated 11/29/2023. RESULT: Counting reference: Lumbosacral junction. For the purposes of this report, L4-5 is considered the level of the iliac crest and there are 5 lumbar-type vertebrae. Anatomic Variants: None. Mild left apex scoliosis. Straightening of the lumbar spine curvature. Grade 1 anterolisthesis of L2 on L3 and mild retrolisthesis of L3 on L4, L4 on L5 and L5 on S1. There are multilevel degenerative changes with disc space narrowing, marginal endplate osteophytes and facet joint hypertrophy. Vascular calcifications are noted. No other significant abnormality. IMPRESSION: Spondylosis. Fire Marshal: PSCB Transcribe Date/Time: May 11 2024 12:18P Dictated by : JUNITO LOWERY MD This examination was interpreted and the report reviewed and electronically signed by: JUNITO LOWERY MD on May 11 2024 1:21PM EST [id number] Specialty Hospital-Grosse PointeXR Lumbar spine 3 Viewson 05-11-2024 IMPRESSION: Spondylosis. Fire Marshal: PSCB Transcribe Date/Time: May 11 2024 12:18P Dictated by : JUNITO LOWERY MD This examination was interpreted and the report reviewed and electronically signed by: JUNITO LOWERY MD on May 11 2024 1:21PM EST [facility]* * *Final Report* * * DATE OF EXAM: May 11 2024 10:24AM VHX 5228 - XR LUMBAR 3V AP/LAT/L5-S1 / PROCEDURE REASON: Fall, initial encounter * * * * Physician Interpretation * * * * HISTORY: Fall, initial encounter . TECHNIQUE: XR LUMBAR 3V AP/LAT/L5-S1 Laterality: NOT APPLICABLE Number of different views (projections): 3 COMPARISON: Radiographs dated 11/29/2023. RESULT: Counting reference: Lumbosacral junction. For the purposes of this report, L4-5 is considered the level of the iliac crest and there are 5 lumbar-type vertebrae. Anatomic Variants: None. Mild left apex scoliosis. Straightening of the lumbar spine curvature. Grade 1 anterolisthesis of L2 on L3 and mild retrolisthesis of L3 on L4, L4 on L5 and L5 on S1. There are multilevel degenerative changes with disc space narrowing, marginal endplate osteophytes and facet joint hypertrophy. Vascular calcifications are noted. No other significant abnormality. [facility] RADIOLOGYProphil, [facility] [place] - 05/11/2024 * * *Final Report* * * DATE OF EXAM: Rock 31 2025 10:24AM VHX 5228 - XR LUMBAR 3V AP/LAT/L5-S1 / PROCEDURE REASON: Fall, initial encounter * * * * Physician Interpretation * * * * HISTORY: Fall, initial encounter . TECHNIQUE: XR LUMBAR 3V AP/LAT/L5-S1 Laterality: NOT APPLICABLE Number of different views (projections): 3 COMPARISON: Radiographs dated 11/29/2023. RESULT: Counting reference: Lumbosacral junction. For the purposes of this report, L4-5 is considered the level of the iliac crest and there are 5 lumbar-type vertebrae. Anatomic Variants: None. Mild left apex scoliosis. Straightening of the lumbar spine curvature. Grade 1 anterolisthesis of L2 on L3 and mild retrolisthesis of L3 on L4, L4 on L5 and L5 on S1. There are multilevel degenerative changes with disc space narrowing, marginal endplate osteophytes and facet joint hypertrophy. Vascular calcifications are noted. No other significant abnormality. IMPRESSION IMPRESSION: Spondylosis. Fire Marshal: HEIDI Transcribe Date/Time: May 11 2024 12:18P Dictated by : JUNITO LOWERY MD This examination was interpreted and the report reviewed and electronically signed by: JUNITO LOWERY MD on May 11 2024 1:21PM [facility] Lumbar spine 3 ViewsOrdered By: Ccf Provider on 05-11-2024 [facility]XR Pelvis and Hip - right AP and Lateral frogon 05-11-2024 IMPRESSION: Mild right hip osteoarthritis. Fire Marshal: [facility] MEDICAL CENTERAvery Transcribe Date/Time: May 11 2024 12:22P Dictated by : JUNITO LOWERY MD This examination was interpreted and the report reviewed and electronically signed by: JUNITO LOWERY MD on May 11 2024 12:23PM [facility]* * *Final Report* * * DATE OF EXAM: May 11 2024 10:24AM VHX 5352 - XR HIP 3V PELV+ AP/LAT RT / PROCEDURE REASON: Fall, initial encounter * * * * Physician Interpretation * * * * HISTORY: Fall, initial encounter . TECHNIQUE: XR HIP 3V PELV+ AP/LAT RT Laterality: RIGHT Number of different views (projections): 3 COMPARISON: None available. RESULT: There is no acute fracture or dislocation. Mild right hip osteoarthritis. Degenerative changes at the bilateral sacroiliac and left hip joints and pubic symphysis. No soft tissue swelling. No other significant abnormality. VIVIEN MORALESGifford Medical Centervijair, [facility] [place] - 05/11/2024 * * *Final Report* * * DATE OF EXAM: May 11 2024 10:24AM VHX 5352 - XR HIP 3V PELV+ AP/LAT RT / PROCEDURE REASON: Fall, initial encounter * * * * Physician Interpretation * * * * HISTORY: Fall, initial encounter . TECHNIQUE: XR HIP 3V PELV+ AP/LAT RT Laterality: RIGHT Number of different views (projections): 3 COMPARISON: None available. RESULT: There is no acute fracture or dislocation. Mild right hip osteoarthritis. Degenerative changes at the bilateral sacroiliac and left hip joints and pubic symphysis. No soft tissue swelling. No other significant abnormality. IMPRESSION IMPRESSION: Mild right hip osteoarthritis. Fire Marshal: PSCB Transcribe Date/Time: May 11 2024 12:22P Dictated by : JUNITO LOWERY MD This examination was interpreted and the report reviewed and electronically signed by: JUNITO LOWERY MD on May 11 2024 12:23PM [facility] Medical CenterCNPNon [id number] (ENDOAV) HOLA DOUGLAS ([id number]) 1945 F Date Time Provider Department 05/01/24 KARL COOK SAMSON During your visit today, we recorded the following information about you: Mili Handy LPN 05/01/2024 11:34 AM Signed PA completed for Mounjaro see determination below. Approval Details Authorization number: [id number] Authorized from May 01, 2024 to April 10, 2025 Allergies As of Date: 05/01/2024 Noted Allergy Reaction ASA (SALICYLATES) 12/17/2004 Comments: causes platelet disfunction ASPIRIN 08/28/2018 16 - Unknown 14 - Other: See Comments LEVAQUIN (LEVOFLOXACIN) 12/29/2017 2 - Rash 14 - Other: See Comments Comments: Per pt feels like she on fire AVELOX (MOXIFLOXACIN HCL) 06/03/2011 5 - Intolerance Comments: C/O burning feeling on skin Date Reviewed: 03/20/2024 Reviewed by: Etienne Marcus CT - Fully Assessed Reason for Visit: Prior Authorization [Other] Cmt: Mounjaro Prescriptions as of 05/01/2024 - tirzepatide (MOUNJARO) 5 mg/0.5 mL pen injector Inject 5 mg subcutaneously one time a week. - fludrocortisone (FLORINEF) 0.1 mg tablet Take 2 tablets by mouth once daily. - pravastatin (PRAVACHOL) 10 mg tablet Take 1 tablet by mouth once daily. - nateglinide (STARLIX) 60 mg tablet Take 1 tablet by mouth three times a day before meals for 4 days. Start after your steroid injection. - gabapentin (NEURONTIN) 300 mg capsule Take 1 capsule by mouth two times a day AND 3 capsules daily at bedtime. Do all this for 90 days. - blood sugar diagnostic (TRUE METRIX GLUCOSE TEST STRIP) test strip Use with blood glucose test once daily - lancets (TRUEPLUS LANCETS) 33 gauge Use with blood glucose test once daily - Blood-Glucose Meter (TRUE METRIX GLUCOSE METER) 1 Each once daily. - ergocalciferol 50,000 unit capsule (VITAMIN D2, DRISDOL) TAKE 1 CAPSULE ONE TIME WEEKLY - clonazePAM (KLONOPIN) 0.5 mg tablet Take 1 tablet by mouth as needed. For restless leg syndrome - loratadine (CLARITIN) 10 mg tablet Take 10 mg by mouth once daily. - fluticasone (FLONASE) 50 mcg/actuation nasal spray Use 2 Sprays in each nostril twice daily. - pen needle, diabetic (COMFORT EZ PEN NEEDLES) 33 gauge x 5/16 ndle To inject weekly - esomeprazole (NEXIUM) 20 mg capsule Take 1 capsule by mouth DAILY (6 AM). - MULTIVITAMIN (MULTI-DAY ORAL) Take by mouth once daily. - calcium carbonate 600 mg-cholecalciferol 200 units (CALCIUM 600 + D,3,) 600 mg(1,500mg) -200 unit tab Take 1 tablet by mouth once daily. Problem List As Of Date 05/01/2024 Noted Resolved Lesion of ulnar nerve [G56.20] 12/15/2004 11/10/2018 Pain in limb [M79.609] 12/15/2004 11/10/2018 ABNORMAL FINDINGS-BREAST [793.8] 12/17/2004 LOC OSTEOARTH NOS-HAND [M19.049] 12/29/2004 CARPAL TUNNEL SYNDROME [G56.00] 06/01/2005 Type 2 diabetes mellitus with stage 3a chronic *06/15/2007 MIXED HYPERLIPIDEMIA [E78.2] 06/15/2007 Bursitis of hip [M70.70] 04/18/2013 Vitamin D insufficiency [E55.9] 01/11/2014 Right buttock pain [M79.18] 03/21/2015 Pain in right hip [M25.551] 03/21/2015 Greater trochanteric bursitis of right hip [M70*03/21/2015 Iron deficiency anemia, unspecified [D50.9] 11/22/2018 Osteoarthritis of knee [M17.9] 12/05/2018 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] 04/13/2019 Orthostatic hypotension [I95.1] 12/24/2020 Dyspnea on exertion [R06.09] 12/24/2020 Fatigue [R53.83] 12/24/2020 Tinnitus, right ear [H93.11] 03/16/2021 Sensory hearing loss, 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] 03/16/2021 Restless legs syndrome [G25.81] 05/21/2021 Postmenopausal status [Z78.0] 05/21/2021 Mixed anxiety depressive disorder [F41.8] 05/21/2021 Diverticulitis [K57.92] 05/21/2021 Cough [R05.9] 05/21/2021 Chronic pain [G89.29] 05/21/2021 Bruises easily [R23.3] 05/21/2021 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*11/18/2021 Elevated AST (SGOT) [R74.01] 11/18/2021 Dizziness [R42] 11/18/2021 Abnormal weight gain [R63.5] 06/23/2023 Chronic bilateral back pain [M54.9, G89.29] 11/29/2023 Lumbosacral spondylosis with radiculopathy [M47*02/07/2024 Encounter Status:Closed by MILI HANDY on 05/01/24NoVan Wert County HospitalDeepa [id number] (ENDOAV) HOLA DOUGLAS ([id number]) 1945 F Date Time Provider Department 04/26/24 KARL COOK During your visit today, we recorded the following information about you: Roberth Cruz 04/26/2024 3:07 PM Signed Hola is calling Karl Cook APRN.ENVIRONMENTAL ENGINEER SCIENTIST today to request to switch to Mounjaro instead of Ozempic. She discussed that with Farzana Morrow, the educator senior clinical and when she checked with her insurance, mounjaro would also be cheaper. Insurance would still need a prior auth. Please contact patient to advise. Patient has been identified by name and birthdate. Duration of symptoms: N/A Person calling: self Call patient at: on cell [phone] (home) [phone] (cell) Was an appointment scheduled: No Closing statement: Results or non-symptom based questions: Thank you for calling [facility], your call will be returned within the next business day. Roberth CruzKarl Hsieh APRN.ENVIRONMENTAL ENGINEER SCIENTIST 05/01/2024 8:14 AM Signed OK to switch to Mounjaro. Does patient have a supply of Ozempic left or is she looking to switch now. Please confirm pharmacy. Mili Handy LPN 05/01/2024 8:48 AM Signed Spoke with patient who reports she has enough Ozempic for this month. She would like the prescription sent to [email or web address] in [place] on [address] Karl Cook APRN.ENVIRONMENTAL ENGINEER SCIENTIST 05/01/2024 9:05 AM Signed Rx sent for Mounjaro 5 mg 90 day supply - she may start one week from her last Ozempic dosage ( she should finish out what she has) Mili Handy LPN 05/01/2024 10:36 AM Signed Spoke with the patient and updated her on Karl's recommendation. Patient verbalized understanding. Allergies As of Date: 04/26/2024 Noted Allergy Reaction ASA (SALICYLATES) 12/17/2004 Comments: causes platelet disfunction ASPIRIN 08/28/2018 16 - Unknown 14 - Other: See Comments LEVAQUIN (LEVOFLOXACIN) 12/29/2017 2 - Rash 14 - Other: See Comments Comments: Per pt feels like she on fire AVELOX (MOXIFLOXACIN HCL) 06/03/2011 5 - Intolerance Comments: C/O burning feeling on skin Date Reviewed: 03/20/2024 Reviewed by: Etienne Marcus CT - Fully Assessed Reason for Visit: Medication Problem [65] Primary Visit Diagnosis:Type 2 diabetes mellitus with stage 3a chronic kidney disease, without long-term current use of insulin (HCC) [E11.22, N18.31] Order(s):tirzepatide (MOUNJARO) 5 mg/0.5 mL pen injectorInject 5 mg subcutaneously one time a week.Disp: 6 mLRfl: 0 Prescriptions as of 05/01/2024 - tirzepatide (MOUNJARO) 5 mg/0.5 mL pen injector Inject 5 mg subcutaneously one time a week. - fludrocortisone (FLORINEF) 0.1 mg tablet Take 2 tablets by mouth once daily. - pravastatin (PRAVACHOL) 10 mg tablet Take 1 tablet by mouth once daily. - nateglinide (STARLIX) 60 mg tablet Take 1 tablet by mouth three times a day before meals for 4 days. Start after your steroid injection. - gabapentin (NEURONTIN) 300 mg capsule Take 1 capsule by mouth two times a day AND 3 capsules daily at bedtime. Do all this for 90 days. - blood sugar diagnostic (TRUE METRIX GLUCOSE TEST STRIP) test strip Use with blood glucose test once daily - lancets (TRUEPLUS LANCETS) 33 gauge Use with blood glucose test once daily - Blood-Glucose Meter (TRUE METRIX GLUCOSE METER) 1 Each once daily. - ergocalciferol 50,000 unit capsule (VITAMIN D2, DRISDOL) TAKE 1 CAPSULE ONE TIME WEEKLY - clonazePAM (KLONOPIN) 0.5 mg tablet Take 1 tablet by mouth as needed. For restless leg syndrome - loratadine (CLARITIN) 10 mg tablet Take 10 mg by mouth once daily. - fluticasone (FLONASE) 50 mcg/actuation nasal spray Use 2 Sprays in each nostril twice daily. - pen needle, diabetic (COMFORT EZ PEN NEEDLES) 33 gauge x 5/16 ndle To inject weekly - esomeprazole (NEXIUM) 20 mg capsule Take 1 capsule by mouth DAILY (6 AM). - MULTIVITAMIN (MULTI-DAY ORAL) Take by mouth once daily. - calcium carbonate 600 mg-cholecalciferol 200 units (CALCIUM 600 + D,3,) 600 mg(1,500mg) -200 unit tab Take 1 tablet by mouth once daily. Problem List As Of Date 04/26/2024 Noted Resolved Lesion of ulnar nerve [G56.20] 12/15/2004 11/10/2018 Pain in limb [M79.609] 12/15/2004 11/10/2018 ABNORMAL FINDINGS-BREAST [793.8] 12/17/2004 LOC OSTEOARTH NOS-HAND [M19.049] 12/29/2004 CARPAL TUNNEL SYNDROME [G56.00] 06/01/2005 Type 2 diabetes mellitus with stage 3a chronic *06/15/2007 MIXED HYPERLIPIDEMIA [E78.2] 06/15/2007 Bursitis of hip [M70.70] 04/18/2013 Vitamin D insufficiency [E55.9] 01/11/2014 Right buttock pain [M79.18] 03/21/2015 Pain in right hip [M25.551] 03/21/2015 Greater trochanteric bursitis of right hip [M70*03/21/2015 Iron deficiency anemia, unspecified [D50.9] 11/22/2018 Osteoarthritis of knee [M17.9] 12/05/2018 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 [facility] 64-36-1659PBMALgqmys Visit (NREUS2) HOLA DOUGLAS ([id number]) 1945 F Date Time Provider Department 03/20/24 2:00 PM ANDRES RUBIO NREUS2 During your visit today, we recorded the following information about you: Pulse Blood pressure Weight Height 75/minute 128/60 81.6 kg 1.727 m Andres Rubio MD 03/21/2024 8:39 AM Signed [facility] - FOLLOW UP EVALUATION Erich Gillis DO [address] [place] [id number] Dear Erich Gillis DO: I had the pleasure of seeing Ms. Douglas for follow-up today. As you know she is a 78 year old right-handed female with a history of orthostatic hypotension since 2020. diabetic since 2005 She is seen with her . Subjective Previous Plan-09/13/23: - Low concern for neurodegenerative parkinsonism at this time. See discussion above. Agree with obtaining MRI brain (scheduled for next month). Interval History: The patient reports ongoing back pain and right leg pain, with a history of falling after receiving an injection for pain relief. She has undergone balance therapy, which has led to some improvement in her stability. However, she continues to experience dizziness, particularly with rapid turning or bending over, which also causes lightheadedness. Her memory and mood remain stable, and there have been no significant changes in these areas. Sleep has been stable, although she continues to experience symptoms of restless legs syndrome (RLS), for which she has been using increased doses of clonazepam. She also reports episodes of double vision when turning her head left or right or sometimes when looking downward. Movement Disorders Medications Schedule - as of the start of the visit: Medications Questionnaires: In addition, the following areas that may be affected by abnormal involuntary movements were evaluated: Daily activities Difficulties with eatin (none) Difficulties in dressin (none) Difficulties with hygiene activities: 0 (none) Difficulties with handwritin (none) Difficulties with doing hobbies and other activities: Yes (mild) Difficulties turning in bed: 0 (none) Difficulties getting out of bed, car or chair: 0 (none) Tremors/Gait/Balance Shaking or tremors: 0 (none) Walking and balance problems: Yes (slight) Number of falls in the Last Month: 1 Gait freezin (none) Autonomic/Pain Lightheadeness on standing: Yes (mild) Urinary problems: 0 (none) Constipation problems: Yes (slight) Pain and other sensations: Yes (severe) Speech/Swallowing Speech problems: 0 (none) Drooling: Yes (mild) Chewing and swallowing problems: 0 (none) Sleep/Fatigue Sleep problems: Yes (slight) Daytime sleepiness: Yes (mild) Fatigue: Mood/Behavior Depression: PHQ-9 Score: 6 usually representing mild (5-9) depression. Anxiety: TRINITY-7 Total Score: 2 usually representing no significant (0-4) anxiety. Finally, the following table shows the patient's overall global physical and mental health using the PROMIS scale: PROMIS-10 Flowsheet Row Office Visit from 01/19/2024 in Endocrinology Most recent reading at 01/13/2024 9:15 PM Office Visit from 01/16/2024 in [facility] [place] Most recent reading at 01/13/2024 9:15 PM Global Physical Health T Score 34.9 34.9 Global Mental Health T Score 45.8 45.8 0-10 Standard Pain Scale 2 2 *PROMIS-10 scoring scale: mean = 50, over 50 is above average, under 50 is below average ALLERGIES Allergen Reactions Asa [Salicylates] causes platelet disfunction Aspirin Unknown, Other: See Comments Levaquin [Levofloxa* Rash, Other: See Comments Per pt feels like she on fire Avelox [Moxifloxaci* Intolerance C/O burning feeling on skin Current Outpatient Medications Medication Sig fludrocortisone (FLORINEF) 0.1 mg tablet Take 2 tablets by mouth once daily. pravastatin (PRAVACHOL) 10 mg tablet Take 1 tablet by mouth once daily. semaglutide (OZEMPIC) 1 mg/dose (4 mg/3 mL) pen Inject 1 mg subcutaneously one time a week. blood sugar diagnostic (TRUE METRIX GLUCOSE TEST STRIP) test strip Use with blood glucose test once daily lancets (TRUEPLUS LANCETS) 33 gauge Use with blood glucose test once daily Blood-Glucose Meter (TRUE METRIX GLUCOSE METER) 1 Each once daily. ergocalciferol 50,000 unit capsule (VITAMIN D2, DRISDOL) TAKE 1 CAPSULE ONE TIME WEEKLY clonazePAM (KLONOPIN) 0.5 mg tablet Take 1 tablet by mouth as needed. For restless leg syndrome loratadine (CLARITIN) 10 mg tablet Take 10 mg by mouth once daily. fluticasone (FLONASE) 50 mcg/actuation nasal spray Use 2 Sprays in each nostril twice daily. pen needle, diabetic (COMFORT EZ PEN NEEDLES) 33 gauge x 5/16 ndle To inject weekly MULTIVITAMIN (MULTI-DAY ORAL) Take by mouth once daily. calcium carbonate 600 mg-cholecalciferol 200 units (CALCIUM 600 + D,3,) 600 mg(1,500mg) -200 unit tab Take 1 tablet by (more content not included)...Normal [facility]ullInfluenza virus B Ag [Presence] in Upper respiratory specimen by Rapid immunoassayon [id number] Ag IA.rapid Ql (Nph)Influenza virus B Ag [Presence] in Upper respiratory specimen by Rapid immunoassay [facility] HospitalNo Panel Informationon [id number] Type A (Rapid)NegativeOhiohealth Grady Memorial HospitalPO SARS CoV-2 Antigen NegativeOhiohealth Grady Memorial HospitalNo Panel InformationOrdered By: Erich Gillis on [id number] Strep (POC)[facility] HospitalRSV (POC) [facility] HospitalCNPNon [id number] (SPNMMN) STELLAHOLA ([id number]) 1945 F Date Time Provider Department 02/20/24 STEVE WAGONER SPNMMN During your visit today, we recorded the following information about you: Fadumo Winchester RN 02/20/2024 10:38 AM Signed Neuro SPINE CARE COORDINATION QUICK NOTE S/P 02/06 TFESI L4-5 Pre procedure pain level: anywhere between 3-10 Pain level today: 4 Percentage of pain relief: 100% Has F/U on 03/01 Patient fell on 02/15. Landed on her left hip/back, pain radiating down anterior/lateral part of left leg to her knee. Denies fevers or any loss of bowel/bladder. Slight weakness from falling. Denies any numbness or tingling. Just complaining of the pain. Currently taking gabapentin 1 capsule BID and 3 capsules at bedtime. Steve Wagoner MD 02/20/2024 11:07 AM Signed Seen for R LE symptoms-s/p R Lumbar ANGELA, glad to hear is better. Appears now having new symptoms of L LE symptoms s/p fall 02/15. Given fall and pain recommend urgent care to best address and r/o fracture. 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 - semaglutide (OZEMPIC) 1 mg/dose (4 mg/3 mL) pen Inject 1 mg subcutaneously one time a week. - nateglinide (STARLIX) 60 mg tablet Take 1 tablet by mouth three times a day before meals for 4 days. Start after your steroid injection. - fludrocortisone (FLORINEF) 0.1 mg tablet Take 2 tablets by mouth once daily. - gabapentin (NEURONTIN) 300 mg capsule Take 1 capsule by mouth two times a day AND 3 capsules daily at bedtime. Do all this for 90 days. - blood sugar diagnostic (TRUE METRIX GLUCOSE TEST STRIP) test strip Use with blood glucose test once daily - lancets (TRUEPLUS LANCETS) 33 gauge Use with blood glucose test once daily - Blood-Glucose Meter (TRUE METRIX GLUCOSE METER) 1 Each once daily. - ergocalciferol 50,000 unit capsule (VITAMIN D2, DRISDOL) TAKE 1 CAPSULE ONE TIME WEEKLY - clonazePAM (KLONOPIN) 0.5 mg tablet Take 1 tablet by mouth as needed. For restless leg syndrome - loratadine (CLARITIN) 10 mg tablet Take 10 mg by mouth once daily. - fluticasone (FLONASE) 50 mcg/actuation nasal spray Use 2 Sprays in each nostril twice daily. - pen needle, diabetic (COMFORT EZ PEN NEEDLES) 33 gauge x 5/16 ndle To inject weekly - esomeprazole (NEXIUM) 20 mg capsule Take 1 capsule by mouth DAILY (6 AM). - MULTIVITAMIN (MULTI-DAY ORAL) Take by mouth once daily. - calcium carbonate 600 mg-cholecalciferol 200 units (CALCIUM 600 + D,3,) 600 mg(1,500mg) -200 unit tab Take 1 tablet by mouth once daily. Problem List As Of Date 02/20/2024 Noted Resolved Lesion of ulnar nerve [G56.20] 12/15/2004 11/10/2018 Pain in limb [M79.609] 12/15/2004 11/10/2018 ABNORMAL FINDINGS-BREAST [793.8] 12/17/2004 LOC OSTEOARTH NOS-HAND [M19.049] 12/29/2004 CARPAL TUNNEL SYNDROME [G56.00] 06/01/2005 Type 2 diabetes mellitus with stage 3a chronic *06/15/2007 MIXED HYPERLIPIDEMIA [E78.2] 06/15/2007 Bursitis of hip [M70.70] 04/18/2013 Vitamin D insufficiency [E55.9] 01/11/2014 Right buttock pain [M79.18] 03/21/2015 Pain in right hip [M25.551] 03/21/2015 Greater trochanteric bursitis of right hip [M70*03/21/2015 Iron deficiency anemia, unspecified [D50.9] 11/22/2018 Osteoarthritis of knee [M17.9] 12/05/2018 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] 04/13/2019 Orthostatic hypotension [I95.1] 12/24/2020 Dyspnea on exertion [R06.09] 12/24/2020 Fatigue [R53.83] 12/24/2020 Tinnitus, right ear [H93.11] 03/16/2021 Sensory hearing loss, 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] 03/16/2021 Restless legs syndrome [G25.81] 05/21/2021 Postmenopausal status [Z78.0] 05/21/2021 Mixed anxiety depressive disorder [F41.8] 05/21/2021 Diverticulitis [K57.92] 05/21/2021 Cough [R05.9] 05/21/2021 Chronic pain [G89.29] 05/21/2021 Bruises easily [R23.3] 05/21/2021 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*11/18/2021 Elevated AST (SGOT) [R74.01] 11/18/2021 Dizziness [R42] 11/18/2021 Abnormal weight gain [R63.5] 06/23/2023 Chronic bilateral back pain [M54.9, G89.29] 11/29/2023 Lumbosacral spondylosis with radiculopathy [M47*02/07/2024 Encounter Status:Closed by FADUMO WINCHESTER on 02/20/24NoTrinity Health System West CampusCNTHERAPYon [id number]/PT/Speech Visit (PTAVTC) STELLAHOLA ([id number]) 1945 F Date Time Provider Department 02/16/24 10:30 AM KARL LION [facility] Date Time Provider Department Center 02/16/2024 10:30 AM [id number], MARY [facility] Vivien Herron Reason for Visit: PT Discharge [752] Primary Visit Diagnosis:Imbalance [R26.89] Allergies As of Date: 02/16/2024 Noted Allergy Reaction ASA (SALICYLATES) 12/17/2004 Comments: causes platelet disfunction ASPIRIN 08/28/2018 16 - Unknown 14 - Other: See Comments LEVAQUIN (LEVOFLOXACIN) 12/29/2017 2 - Rash 14 - Other: See Comments Comments: Per pt feels like she on fire AVELOX (MOXIFLOXACIN HCL) 06/03/2011 5 - Intolerance Comments: C/O burning feeling on skin Date Reviewed: 02/07/2024 Reviewed by: Naldo Tariq, JEN - Fully Assessed Prescriptions as of 05/10/2024 - tirzepatide (MOUNJARO) 5 mg/0.5 mL pen injector Inject 5 mg subcutaneously one time a week. - fludrocortisone (FLORINEF) 0.1 mg tablet Take 2 tablets by mouth once daily. - pravastatin (PRAVACHOL) 10 mg tablet Take 1 tablet by mouth once daily. - nateglinide (STARLIX) 60 mg tablet Take 1 tablet by mouth three times a day before meals for 4 days. Start after your steroid injection. - gabapentin (NEURONTIN) 300 mg capsule Take 1 capsule by mouth two times a day AND 3 capsules daily at bedtime. Do all this for 90 days. - blood sugar diagnostic (TRUE METRIX GLUCOSE TEST STRIP) test strip Use with blood glucose test once daily - lancets (TRUEPLUS LANCETS) 33 gauge Use with blood glucose test once daily - Blood-Glucose Meter (TRUE METRIX GLUCOSE METER) 1 Each once daily. - ergocalciferol 50,000 unit capsule (VITAMIN D2, DRISDOL) TAKE 1 CAPSULE ONE TIME WEEKLY - clonazePAM (KLONOPIN) 0.5 mg tablet Take 1 tablet by mouth as needed. For restless leg syndrome - loratadine (CLARITIN) 10 mg tablet Take 10 mg by mouth once daily. - fluticasone (FLONASE) 50 mcg/actuation nasal spray Use 2 Sprays in each nostril twice daily. - pen needle, diabetic (COMFORT EZ PEN NEEDLES) 33 gauge x 5/16 ndle To inject weekly - esomeprazole (NEXIUM) 20 mg capsule Take 1 capsule by mouth DAILY (6 AM). - MULTIVITAMIN (MULTI-DAY ORAL) Take by mouth once daily. - calcium carbonate 600 mg-cholecalciferol 200 units (CALCIUM 600 + D,3,) 600 mg(1,500mg) -200 unit tab Take 1 tablet by mouth once daily.NormalGuernsey Memorial Hospitalon [id number] (JEANMN) HOLA DOUGLAS ([id number]) 1945 F Date Time Provider Department 02/10/24 ZAK COHEN [facility] During your visit today, we recorded the following information about you: Elayne Hdz RN 02/10/2024 9:14 AM Signed Left message on voicemail for patient to call office back or to read [employer] message regarding Post Spine Injection phone call: Right L4-5 transforaminal epidural steroid injection on 02/07/2024 Elayne Hdz RN 02/13/2024 11:25 AM Signed Post Spine Injection phone call: Right L4-5 transforaminal epidural steroid injection on 02/07/2024 Patient denies fever, chills, new headache, prolonged numbness nor exacerbation of pain status. Injection site(s) flat and dry with no redness nor drainage. Pre Procedure Pain level: Pain is currently 3/10, but gets up to 10/10 at the worst. Immediately Post Procedure 2 Pain level today (0 = none - 10 = extreme) 4 was at 6 yesterday Percentage of pain relief: 100% than she fell went 20% (fall) Blood Glucose monitoring: Taking the Nateglinide keeping it down 120 mg/dL February 13, 2024 Patient encouraged to monitor blood glucose for next 24 -48 for elevations. Patient verbalized understanding that it may take up to 14 days to realize full benefit of spinal injection. Follow up as indicated on order: Ordering Provider Via Virtual Visit: 2-4 weeks on 03/[address] Wagoner. Patient reminded to bring pain diary to follow appointment. If follow up appointment indicated on order, patient encouraged to schedule follow up appointment 2-4 weeks post procedure by calling [phone] Patient does not have any questions or concerns. Patient will call office with any questions or concerns. Patient said was going to call Dr. Wagoner's office. Had the injection was feeling good. Was at 100% relief and than she fell on last . Tripped on her carpet. Landed on her left hip/back. Said started having pain across lower back like before down left leg (outside/front) to the knee. No new loss of bowel or bladder control. Did have some slight weakness from fall. No tingling or numbness. It is just pain that is the problem. Pain was a 6 yesterday and today is a 4. Has a follow up VV on 03/01. Is taking Gabapentin 300 mg 1 BID and 3 at bedtime. Allergies As of Date: 02/10/2024 Noted Allergy Reaction ASA (SALICYLATES) 12/17/2004 Comments: causes platelet disfunction ASPIRIN 08/28/2018 16 - Unknown 14 - Other: See Comments LEVAQUIN (LEVOFLOXACIN) 12/29/2017 2 - Rash 14 - Other: See Comments Comments: Per pt feels like she on fire AVELOX (MOXIFLOXACIN HCL) 06/03/2011 5 - Intolerance Comments: C/O burning feeling on skin Date Reviewed: 02/07/2024 Reviewed by: Naldo Tariq RN - Fully Assessed Reason for Visit: Post Injection call [Other] Prescriptions as of 02/20/2024 - pravastatin (PRAVACHOL) 10 mg tablet Take 1 tablet by mouth once daily. - semaglutide (OZEMPIC) 1 mg/dose (4 mg/3 mL) pen Inject 1 mg subcutaneously one time a week. - nateglinide (STARLIX) 60 mg tablet Take 1 tablet by mouth three times a day before meals for 4 days. Start after your steroid injection. - fludrocortisone (FLORINEF) 0.1 mg tablet Take 2 tablets by mouth once daily. - gabapentin (NEURONTIN) 300 mg capsule Take 1 capsule by mouth two times a day AND 3 capsules daily at bedtime. Do all this for 90 days. - blood sugar diagnostic (TRUE METRIX GLUCOSE TEST STRIP) test strip Use with blood glucose test once daily - lancets (TRUEPLUS LANCETS) 33 gauge Use with blood glucose test once daily - Blood-Glucose Meter (TRUE METRIX GLUCOSE METER) 1 Each once daily. - ergocalciferol 50,000 unit capsule (VITAMIN D2, DRISDOL) TAKE 1 CAPSULE ONE TIME WEEKLY - clonazePAM (KLONOPIN) 0.5 mg tablet Take 1 tablet by mouth as needed. For restless leg syndrome - loratadine (CLARITIN) 10 mg tablet Take 10 mg by mouth once daily. - fluticasone (FLONASE) 50 mcg/actuation nasal spray Use 2 Sprays in each nostril twice daily. - pen needle, diabetic (COMFORT EZ PEN NEEDLES) 33 gauge x 5/16 ndle To inject weekly - esomeprazole (NEXIUM) 20 mg capsule Take 1 capsule by mouth DAILY (6 AM). - MULTIVITAMIN (MULTI-DAY ORAL) Take by mouth once daily. - calcium carbonate 600 mg-cholecalciferol 200 units (CALCIUM 600 + D,3,) 600 mg(1,500mg) -200 unit tab Take 1 tablet by mouth once daily. 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] 12/15/2004 11/10/2018 Pain in limb [M79.609] 12/15/2004 11/10/2018 ABNORMAL FINDINGS-BREAST [793.8] 12/17/2004 LOC OSTEOARTH NOS-HAND [M19.049] 12/29/2004 CARPAL TUNNEL SYNDROME [G56.00] 06/01/2005 Type 2 diabetes mellitus with stage 3a chronic *06/15/2007 MIXED HYPERLIPIDEMIA [E78.2] 06/15/2007 Bursitis of hip [M70.70] 04/18/2013 Vitamin D insufficiency [E55.9] 01/11/2014 Right buttock pa (more content not included)...Normal[facility] CNTHERAPYon [id number]/PT/Speech Visit ([facility]) HOLA DOUGLAS ([id number]) 1945 F Date Time Provider Department 02/09/24 3:15 PM KARL LION [facility] Date Time Provider Department Center 02/09/2024 3:15 PM [id number], MARY [facility] Vivien Herron Reason for Visit: Physical Therapy [503] Primary Visit Diagnosis:Imbalance [R26.89] Other Visit Diagnosis: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athy (HCC) [E11.42] Allergies As of Date: 02/09/2024 Noted Allergy Reaction ASA (SALICYLATES) 12/17/2004 Comments: causes platelet disfunction ASPIRIN 08/28/2018 16 - Unknown 14 - Other: See Comments LEVAQUIN (LEVOFLOXACIN) 12/29/2017 2 - Rash 14 - Other: See Comments Comments: Per pt feels like she on fire AVELOX (MOXIFLOXACIN HCL) 06/03/2011 5 - Intolerance Comments: C/O burning feeling on skin Date Reviewed: 02/07/2024 Reviewed by: Naldo Tariq, JEN - Fully Assessed Prescriptions as of 02/09/2024 - semaglutide (OZEMPIC) 1 mg/dose (4 mg/3 mL) pen Inject 1 mg subcutaneously one time a week. - nateglinide (STARLIX) 60 mg tablet Take 1 tablet by mouth three times a day before meals for 4 days. Start after your steroid injection. - pravastatin (PRAVACHOL) 10 mg tablet Take 10 mg by mouth once daily. - fludrocortisone (FLORINEF) 0.1 mg tablet Take 2 tablets by mouth once daily. - gabapentin (NEURONTIN) 300 mg capsule Take 1 capsule by mouth two times a day AND 3 capsules daily at bedtime. Do all this for 90 days. - blood sugar diagnostic (TRUE METRIX GLUCOSE TEST STRIP) test strip Use with blood glucose test once daily - lancets (TRUEPLUS LANCETS) 33 gauge Use with blood glucose test once daily - Blood-Glucose Meter (TRUE METRIX GLUCOSE METER) 1 Each once daily. - ergocalciferol 50,000 unit capsule (VITAMIN D2, DRISDOL) TAKE 1 CAPSULE ONE TIME WEEKLY - clonazePAM (KLONOPIN) 0.5 mg tablet Take 1 tablet by mouth as needed. For restless leg syndrome - loratadine (CLARITIN) 10 mg tablet Take 10 mg by mouth once daily. - fluticasone (FLONASE) 50 mcg/actuation nasal spray Use 2 Sprays in each nostril twice daily. - pen needle, diabetic (COMFORT EZ PEN NEEDLES) 33 gauge x 5/16 ndle To inject weekly - esomeprazole (NEXIUM) 20 mg capsule Take 1 capsule by mouth DAILY (6 AM). - MULTIVITAMIN (MULTI-DAY ORAL) Take by mouth once daily. - calcium carbonate 600 mg-cholecalciferol 200 units (CALCIUM 600 + D,3,) 600 mg(1,500mg) -200 unit tab Take 1 tablet by mouth once daily.NormalThe Surgical Hospital at SouthwoodsTORY PHYSICALon [id number] PHYSICALHNO ID: [id number] Author: AFRICA BELTRAN APRN.ENVIRONMENTAL ENGINEER SCIENTIST Service: ? Author Type: Nurse Practitioner Type: H&P Filed: 02/07/2024 12:31 Note Text: LOCAL PROCEDURE HISTORY AND PHYSICAL EXAM SERVICE DATE: 02/07/2024 SERVICE TIME: 12:27 PM Provisional Diagnosis/Treatment Plan: Procedure(s) (LRB): INJECTION(S) ANESTHETIC AGENT AND STEROID TRANSFORAMINAL EPIDURAL LUMBAR W/IMAGE GUIDANCE FLUORO OR CT (Right) Subjective HPI: This is a 78 year old year old female who presents with Spinal stenosis of lumbar region, unspecified whether neurogenic claudication present [M48.061] Lumbosacral spondylosis with radiculopathy [M47.27] Has elected for above procedure. MEDICATIONS: Prior to Admission medications as of 01/19/24 1506 Medication Sig Last Dose Taking semaglutide (OZEMPIC) 1 mg/dose (4 mg/3 mL) pen Inject 1 mg subcutaneously one time a week. nateglinide (STARLIX) 60 mg tablet Take 1 tablet by mouth three times a day before meals for 4 days. Start after your steroid injection. pravastatin (PRAVACHOL) 10 mg tablet Take 10 mg by mouth once daily. fludrocortisone (FLORINEF) 0.1 mg tablet Take 2 tablets by mouth once daily. gabapentin (NEURONTIN) 300 mg capsule Take 1 capsule by mouth two times a day AND 3 capsules daily at bedtime. Do all this for 90 days. blood sugar diagnostic (TRUE METRIX GLUCOSE TEST STRIP) test strip Use with blood glucose test once daily lancets (TRUEPLUS LANCETS) 33 gauge Use with blood glucose test once daily Blood-Glucose Meter (TRUE METRIX GLUCOSE METER) 1 Each once daily. ergocalciferol 50,000 unit capsule (VITAMIN D2, DRISDOL) TAKE 1 CAPSULE ONE TIME WEEKLY clonazePAM (KLONOPIN) 0.5 mg tablet Take 1 tablet by mouth as needed. For restless leg syndrome loratadine (CLARITIN) 10 mg tablet Take 10 mg by mouth once daily. fluticasone (FLONASE) 50 mcg/actuation nasal spray Use 2 Sprays in each nostril twice daily. pen needle, diabetic (COMFORT EZ PEN NEEDLES) 33 gauge x 5/16 ndle To inject weekly esomeprazole (NEXIUM) 20 mg capsule Take 1 capsule by mouth DAILY (6 AM). MULTIVITAMIN (MULTI-DAY ORAL) Take by mouth once daily. calcium carbonate 600 mg-cholecalciferol 200 units (CALCIUM 600 + D,3,) 600 mg(1,500mg) -200 unit tab Take 1 tablet by mouth once daily. ALLERGIES Allergen Reactions Asa [Salicylates] causes platelet disfunction Aspirin Unknown, Other: See Comments Levaquin [Levofloxa* Rash, Other: See Comments Per pt feels like she on fire Avelox [Moxifloxaci* Intolerance C/O burning feeling on skin Objective PHYSICAL EXAM: The remainder of the physical exam is noncontributory. GENERAL: Alert, no distress, cooperative LUNGS: Lungs clear to auscultation, Good diaphragmatic excursion CARDIAC: Normal S1 and S2; no rubs, murmurs, or gallops BP 145/72 Pulse 71 Temp 36.6 ?C (97.8 ?F) (Temporal) Resp 16 SpO2 96% PAIN ASSESSMENT: PAIN EVALUATION 02/07/2024 1220 Pain Level: 3 Pain Location: Leg-Right Assessment/Plan Active Problems: Spinal stenosis of lumbar region, unspecified whether neurogenic claudication present [M48.061] Lumbosacral spondylosis with radiculopathy [M47.27] Medication and Non-Pharmacologic VTE Prophylaxis/Anticoagulants VTE Prophylaxis: N/A SIGNATURE: Africa Beltran APRN.CNP PATIENT NAME: Hola Douglas DATE: 02/07/2024 TIME: 12:27 PMNormalSelect Medical Specialty Hospital - TrumbullOPERATIVE NOon [id number] NOHNO ID: [id number] Author: ZAK COHEN DO Service: Physical Medicine AND Rehabilitation Author Type: Physician Type: Operative Report Filed: 02/07/2024 12:54 Note Text: PROCEDURE REPORT Surgery/Procedure Date: February 07, 2024 Interventionalist: Zak Cohen DO Procedure(s): Right L4-5 transforaminal epidural steroid injection Pre-Op/Pre-Procedure Diagnosis: Lumbosacral spondylosis with radiculopathy Post-Op Diagnosis: same SUBJECTIVE: Hola Douglas is a 78 year old female, who presents to the [facility] ambulatory surgery center for a right L4-L5 transforaminal epidural steroid injection. 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 Pain is right lumbosacral back radiating around hip to the lateral more than anterior thigh to the knee. Pain is currently 3/10, but gets up to 10/10 at the worst. I have reviewed the nurses notes and am aware of the patient's history. OBJECTIVE: Vital signs are documented in the paper chart prior to and throughout the procedure. INFORMED CONSENT: Risks, benefits, alternatives and personnel discussed with patient who consents to proceed. A formal sign in and timeout with team members and patient present were performed prior to procedure start/delivery of medication. PROCEDURE: Procedure: Right L4-L5 Transforaminal Epidural Steroid Injection Hola Douglas was transferred to the Block Room. Time out was performed. After placement of routine monitors (blood pressure, pulse oximetry, and heart rate monitored by dedicated nurse), the procedure was performed in the usual manner. Anesthesia: Local only Start time: 1241 Stop time: 1250 Fluoroscopy time: 22 seconds Estimated blood loss: none Level: right L4-L5 Technique: Patient positioned prone. Procedure area was prepped with Betadine and draped with sterile coverings. An oblique approach was used with C-arm guidance. The skin was anesthetized with 1% lidocaine. A #22 gauge short-bevel spinal needle was inserted to the proper location within the intervertebral foramen using intermittent fluoroscopy. Position was confirmed with iohexol contrast under live fluoroscopy. Needle position was verified in two views and epidurogram was visualized and recorded. 7.5 mg of dexamethasone and 2.25 cc of lidocaine 1% was injected. The spinal needle was then removed. Adequate hemostasis was obtained at the needle puncture site. The patient's back was cleaned and a sterile dressing was applied. Patient tolerated the procedure well and was taken conscious and in stable condition to the recovery room for observation. No complications as a result of this procedure. Post procedure precautions and instructions were reviewed with the patient who verbalized understanding. I/primary surgeon/proceduralist performed the procedure alone. No complications were encountered. Estimated blood loss: none Specimens: none Implanted devices: none Drains: none Post procedure physical exam unchanged from pre procedure. Significant findings: Oblique 10 right for AP Oblique 30 right for trajectory Cephalad 5 ASSESSMENT: Pre Procedure diagnosis: Lumbosacral spondylosis with radiculopathy Post-Procedure diagnosis: same Pre Procedure Pain Level: same as above Post Procedure Pain Level: as documented in nursing notes and paper chart Purposeful response to verbal or tactile stimulation: Yes PLAN: Post-procedure instructions reviewed with patient. Patient is to complete post-procedure pain diary and follow up with the ordering provider. Patient is to contact our office with any question or if any side effects are noted. Hola Douglas was transferred to the recovery room and is to be discharged home in stable condition. Sylvie MedranoACMC Healthcare System GlenbeighAmbulatory Visit Summaryon [id number] Visit SummaryAmbulatory Visit Summary HOLA DOUGLAS :1945 Visit Date:02/06/2024 Ambulatory Visit Instructions Your Diagnosis Postinfective urethral stricture in female Mixed incontinence Your Care Team Attending Physician - Ryan LIVE MD Primary Care Physician - ERICH GILLIS DO This Is Your Medications List Contact prescribing physician if questions or concerns calcium carbonate (calcium (as carbonate) 600 mg oral tablet) calcium-vitamin D (Calcium 600+D) cetirizine (Zyrtec) citalopram (Celexa) clonazepam (ClonazePAM 0.5 mg Tab) ergocalciferol (Vitamin D) fludrocortisone (fludrocortisone 0.1 mg Tab) gabapentin multivitamin with minerals (Multivitamins and Minerals) pravastatin (pravastatin 20 mg Tab) semaglutide (Ozempic 2 mg/1.5 mL (0.25 mg or 0.5 mg dose) subcutaneous solution) Procedures Performed Injection of sacroiliac joint using fluoroscopic guidance (09/19/2023), Injection of sacroiliac joint using fluoroscopic guidance (06/08/2023), Radiofrequency ablation of nerve root of lumbar spine using fluoroscopic guidance (04/20/2023), Injection into facet joint of lumbar spine using fluoroscopic guidance (02/28/2023), Left wrist (11/2022), Injection of sacroiliac joint using fluoroscopic guidance (11/08/2022), Trigger point (08/12/2022), Epidural injection of lumbar spine using fluoroscopic guidance (12/07/2021), Left hip (06/15/2021), UD - Urethral dilatation (03/27/2020), UD - Urethraldilatation (09/01/2018), UD - Urethral dilatation (11/28/2017), Cystoscope (02/07/2017), Carpal tunnel, Closed fracture of left foot, Injection of facet joint using fluoroscopic guidance. Discharge Vitals Heart Rate (Peripheral) 78 Respiratory Rate 16 Blood Pressure 111/73 Height 172 cm Height 68 in Weight 82.9 kg Weight 182.38 lb BMI 28.02 What to do next Scheduled Follow-Up Appointments Tuesday 8:45 AM EDT With: Ryan LIVE MD Where: [facility] [address] [place] [address]- You Need to Schedule the Following Appointments Follow Up with HIRO BRICENO, ANGELO Tavera When: Where: [address] [place] [address]- Medications What How Much When Instructions Unchanged calcium carbonate (calcium (as carbonate) 600 mg oral tablet) 1 Tablets By Mouth 2 times a day Contact prescribing physician if questions or concerns Unchanged calcium-vitamin D (Calcium 600+D) By Mouth Every day Contact prescribing physician if questions or concerns Unchanged cetirizine (Zyrtec) Contact prescribing physician if questions or concerns Unchanged citalopram (Celexa) 10 Milligram By Mouth Every day Contact prescribing physician if questions or concerns Unchanged clonazepam (ClonazePAM 0.5 mg Tab) 0.5 Tablets By Mouth Once a day (at bedtime) as neededfor Leg cramps Contact prescribing physician if questions or concerns Unchanged ergocalciferol (Vitamin D) 50,000 International unit By Mouth Every week Contact prescribing physician if questions or concerns Unchanged fludrocortisone (fludrocortisone 0.1 mg Tab) 1 Tablets By Mouth 2 times a day Contact prescribing physician if questions or concerns Unchanged gabapentin See instructions 300mg qam, q noon, 3 tabs 300 mg Oral at bedtime Contact prescribing physician if questions or concerns Unchanged multivitamin with minerals (Multivitamins and Minerals) 1 tab By Mouth Every day Contact prescribing physician if questions or concerns Unchanged pravastatin (pravastatin 20 mg Tab) 1 Tablets By Mouth Every day Contact prescribing physician if questions or concerns Unchanged semaglutide (Ozempic 2 mg/ 1.5 mL (0.25 mg or 0.5 mg dose) subcutaneous solution) 0.25 Milligram Subcutaneous Every week Contact prescribing physician if questions or concerns Medications and Immunizations Administered Given lidocaine Top 2% Gel w/Appl 6 mL, 6 mL, Topical. For: Postinfective urethral stricture in female Allergies Avelox (Itching, Burning) Levaquin (Itching, Burning vapor) aspirin (Unknown) Problems Ongoing - Any problem that you are currently receiving treatment for. At risk for falls Hesitancy Mixed incontinence Nocturia Postinfective urethral stricture in female Type 2 diabetes mellitus Urgency of urination Weak urine stream Historical - Any problem that you are no longer receiving treatment for. Colonoscopy Hysterectomy Lumpectomy of breast Patient Survey You may receive a survey via text or e-mail asking about your office visit. Please share your experience with us by completing your survey. We appreciate your feedback and thank you for choosing us for your care. Education Materials Urethral Dilation Urethral dilation is a procedure to stretch open (dilate) the urethra. The urethra is the tube thatdrains pee (urine) from the bladder out of the body. In female (more content not included)...[facility] Noteon [id number] Office/Clinic NoteUrology Office/Clinic Note Chief Complaint 6 month follow up with UD HPI Staff 6 mo due to postinfective urethral stricture, here for possible UD. S/p UD 07/26/23. Dysuria: denies Incomplete bladder emptying: yes Hematuria: denies Frequency: once every hour Urgency: yes Nocturia: 2-3 x a night Stream: has hesitancy, stream varies Leaking: yes Post void dripping: denies Wearing pads/ Depends: underwear that has a pad daily Urge incontinence: yes Stress incontinence: yes when coughing, sneezing Incontinence without Sensory Awareness: denies Abdominal pain: denies Flank pain: denies Sexual complaints: _ History of Present Illness Tests reviewed: UA I have reviewed the previous health record information and history for this patient from Dr. Live. I have reviewed and verified the staff HPI to be accurate for this encounter. Review of Systems PHQ Score Initial Depression Screen Score: 0 SCORE ROS - Provider Constitutional: denies weight loss, denies hot flashes. Eyes: denies eye problems. Gastrointestinal: denies nausea, denies vomiting. Cardiovascular: denies chest pain or angina. Integumentary: no dryness Musculoskeletal: denies musculoskeletal symptoms. ENMT: denies otolaryngeal symptoms. Respiratory: no shortness of breath. Heme/Lymph: denies easy bleeding tendency, denies easy bruising tendency. Psychiatric: no confusion, no anxiety. Genitourinary: See HPI. Physical Exam Vitals & Measurements HR: 78(Peripheral) RR: 16 BP: 111/73 HT: 68 in HT: 172 cm WT: 82.9 kg WT: 182.38 lb BMI: 28.02 General Appearance: alert, no distress, well nourished, well developed female. Procedure Operative Information Anesthesia Type: Local Procedure: Local Urethral Dilation Complications: None Surgical risks, benefits, details of the procedure have been explained to the patient. Full informed consent has been obtained. Intraoperative Information Prepped: Patient is brought back to the endoscopy suite. Patient is placed in modified dorso/lithotomy position. Patient prepped in the usual fashion with Betadine solution. 2% Xylocaine Jelly is placed per Urethra. The Urethra is: Tight at 20 Fr. The Urethra was dilated to: 18-30 [place] with sounds. Specimens Removed: None Postoperative Information Patient is discharged home. Follow up arranged. Assessment/Plan 1. Postinfective urethral stricture in female (N35.12: Postinfective urethral stricture, not elsewhere classified, female) UDs: 01/12/23, 03/27/20, 09/01/18. Last UD 07/26/23. Does feel she is due for a dilation. No S/S of infection. No UTIs since prior OV. Since pt has required UDs q6mos, will schedule her for routine dilations q6mos. Follow up 6 mos IO UD or sooner if needed. Pt understands and agrees with plan. 2. Mixed incontinence (N39.46: Mixed incontinence) BBS 13.5 - sudden urge few times a week, UUI a few times a month, feeling of incomplete bladder emptying, CRISTI, no fecal incontinence. Due to continued symptomatology the patient does wish to have repeat urethral dilatation done today. She tolerates this well as documented above. The plan to be for 6-month follow-up for reconsideration. She knows to call the office for severe symptomatology prior to next visit. May have a discussion about the possibility of having an alpha-gurpreet again to her medication regimen hoping to chemically relax the bladder outlet. Follow-up With When Contact Information HIRO BRICENO, Ryan Holland, URL [address] [address]- Additional Instructions: 6 mos IO UD Patient Education Urethral Dilation I, Brie Gamez, personally scribed for Dr. Live on 02/06/2024 08:58:55. . Documentation recorded by the scribe, Brie Gamez, accurately reflects the services(s) I performed and decisions made by me. Authenticated by Dr. Live on 02/06/2024 09:05:24. Portions of this record may have been created with voice recognition artificial intelligence software, specifically [employer], [employer] and or [employer]. Substitutions may have occurred due to the inherent limitations of voice recognition and artificial intelligence software. Problem List/Past Medical History Ongoing At risk for falls Hesitancy Mixed incontinence Nocturia Postinfective urethral stricture in female Type 2 diabetes mellitus Urgency of urination Weak urine stream Historical Colonoscopy Hysterectomy Lumpectomy of breast Procedure/Surgical History Injection of sacroiliac joint using fluoroscopic guidance (09/19/2023), Injection of sacroiliac joint using fluoroscopic guidance (06/08/2023), Radiofrequency ablation of nerve root of lumbar spine using fluoroscopic guidance (04/20/2023), Injection into facet joint of lumbar spine using fluoroscopic guidance (02/28/2023), Left wrist (11/2022), Injection of sacroiliac join (more content not included)...[facility] Comment on above:Result Comment: Electronically Signed By: HIRO BRICENO, Ryan Holland\.chano\Date and Time Signed: 02/06/24 09:07 Lisa [id number] (SPNMMN) HOLA DOUGLAS ([id number]) 1945 F Date Time Provider Department 02/02/24 ZAK COHEN SPNMMN During your visit today, we recorded the following information about you: Elayne Hdz, RN 02/02/2024 10:52 AM Signed Phoned patient and spoke with patient to confirm appointment for Hola Douglas for spine procedure on 02/07/2024. Patient notified that Sumner will call patient the night before with the time to arrive for injection. Patient verbalized understanding of the following: -Provided education on spine procedure and answered questions related to spine injection procedure. -Desk Editor is needed to drive patient home. Patient's -Sravan will wait -NPO 6 hours prior to appointment, ok to take morning medications with sip of water. -Not to take any pain medications the day of injection to see how well injection works. -Do not take any NSAIDs/anti-inflammatories (mobic, ibuprofen, advil, aleve, etc) the day of procedure for all lumbar, hip, and sacroiliac joint procedures. Hold NSAIDs for 1 day prior to procedure for cervical cases. Allergies reviewed: Yes Allergy to IV contrast dye or steroids: No and not allergic to shellfish either Taking any antiplatelet/anticoagulant (blood thinners): No Taking aspirin 81mg: No Any open wounds/sores?: No Taking Antibiotics?: No Diabetic: Yes , notified that blood sugar will be taken at office and ok to take morning diabetes medication. Patient given number [phone], spine injections schedulers, if there is any need to reschedule/ change appointment during normal business hours. Active [employer] users were informed to read [employer] procedure instructions prior to appointment. AMBULATORY PATIENT EDUCATION TOPIC: SPINE INJECTION PROCEDURE, PRE-INJECTION AND POST- INJECTION INSTRUCTIONS READINESS TO LEARN COGNITIVE ABILITY: ALERT AND ORIENTED MOTIVATION TO LEARN: Eager FAMILY SUPPORT: Unable to assess - Family not present INSTRUCTION PROVIDED TO: Patient PATIENT LEARNS BEST BY: INDIVIDUAL INSTRUCTION FACTORS AFFECTING LEARNING: None PHYSICAL LIMITATIONS AFFECTING LEARNING: None LEARNING RESPONSE METHOD OF INSTRUCTION: TEACH BACK AND INDIVIDUAL INSTRUCTION PATIENT / FAMILY RESPONSE: VERBALIZED UNDERSTANDING OF PRE AND POST INJECTION INSTRUCTIONS Allergies As of Date: 02/02/2024 Noted Allergy Reaction ASA (SALICYLATES) 12/17/2004 Comments: causes platelet disfunction ASPIRIN 08/28/2018 16 - Unknown 14 - Other: See Comments LEVAQUIN (LEVOFLOXACIN) 12/29/2017 2 - Rash 14 - Other: See Comments Comments: Per pt feels like she on fire AVELOX (MOXIFLOXACIN HCL) 06/03/2011 5 - Intolerance Comments: C/O burning feeling on skin Date Reviewed: 01/19/2024 Reviewed by: Edith Knott MA - Fully Assessed Reason for Visit: Preparations For Procedures [899] Prescriptions as of 02/02/2024 - semaglutide (OZEMPIC) 1 mg/dose (4 mg/3 mL) pen Inject 1 mg subcutaneously one time a week. - nateglinide (STARLIX) 60 mg tablet Take 1 tablet by mouth three times a day before meals for 4 days. Start after your steroid injection. - pravastatin (PRAVACHOL) 10 mg tablet Take 10 mg by mouth once daily. - fludrocortisone (FLORINEF) 0.1 mg tablet Take 2 tablets by mouth once daily. - gabapentin (NEURONTIN) 300 mg capsule Take 1 capsule by mouth two times a day AND 3 capsules daily at bedtime. Do all this for 90 days. - blood sugar diagnostic (TRUE METRIX GLUCOSE TEST STRIP) test strip Use with blood glucose test once daily - lancets (TRUEPLUS LANCETS) 33 gauge Use with blood glucose test once daily - Blood-Glucose Meter (TRUE METRIX GLUCOSE METER) 1 Each once daily. - ergocalciferol 50,000 unit capsule (VITAMIN D2, DRISDOL) TAKE 1 CAPSULE ONE TIME WEEKLY - clonazePAM (KLONOPIN) 0.5 mg tablet Take 1 tablet by mouth as needed. For restless leg syndrome - loratadine (CLARITIN) 10 mg tablet Take 10 mg by mouth once daily. - fluticasone (FLONASE) 50 mcg/actuation nasal spray Use 2 Sprays in each nostril twice daily. - pen needle, diabetic (COMFORT EZ PEN NEEDLES) 33 gauge x 5/16 ndle To inject weekly - esomeprazole (NEXIUM) 20 mg capsule Take 1 capsule by mouth DAILY (6 AM). - MULTIVITAMIN (MULTI-DAY ORAL) Take by mouth once daily. - calcium carbonate 600 mg-cholecalciferol 200 units (CALCIUM 600 + D,3,) 600 mg(1,500mg) -200 unit tab Take 1 tablet by mouth once daily. Problem List As Of Date 02/02/2024 Noted Resolved Lesion of ulnar nerve [G56.20] 12/15/2004 11/10/2018 Pain in limb [M79.609] 12/15/2004 11/10/2018 ABNORMAL FINDINGS-BREAST [793.8] 12/17/2004 LOC OSTEOARTH NOS-HAND [M19.049] 12/29/2004 CARPAL TUNNEL SYNDROME [G56.00] 06/01/2005 Type 2 diabetes mellitus with stage 3a chronic *06/15/2007 MIXED HYPERLIPIDEMIA [E78.2] 06/15/2007 Bursitis of hip [M70.70] 04/18/2013 Vitamin D insufficiency [E (more content not included)...[facility] - TrumbullCNTHERAPYon [id number]/PT/Speech Visit ([facility]) HOLA DOUGLAS ([id number]) 1945 F Date Time Provider Department 02/02/24 12:00 PM KARL LION [facility] Date Time Provider Department Center 02/02/2024 12:00 PM [id number], MARY [facility] Vivien Herron Reason for Visit: Physical Therapy [503] Primary Visit Diagnosis:Imbalance [R26.89] Allergies As of Date: 02/02/2024 Noted Allergy Reaction ASA (SALICYLATES) 12/17/2004 Comments: causes platelet disfunction ASPIRIN 08/28/2018 16 - Unknown 14 - Other: See Comments LEVAQUIN (LEVOFLOXACIN) 12/29/2017 2 - Rash 14 - Other: See Comments Comments: Per pt feels like she on fire AVELOX (MOXIFLOXACIN HCL) 06/03/2011 5 - Intolerance Comments: C/O burning feeling on skin Date Reviewed: 01/19/2024 Reviewed by: Edith Knott MA - Fully Assessed Prescriptions as of 02/02/2024 - semaglutide (OZEMPIC) 1 mg/dose (4 mg/3 mL) pen Inject 1 mg subcutaneously one time a week. - nateglinide (STARLIX) 60 mg tablet Take 1 tablet by mouth three times a day before meals for 4 days. Start after your steroid injection. - pravastatin (PRAVACHOL) 10 mg tablet Take 10 mg by mouth once daily. - fludrocortisone (FLORINEF) 0.1 mg tablet Take 2 tablets by mouth once daily. - gabapentin (NEURONTIN) 300 mg capsule Take 1 capsule by mouth two times a day AND 3 capsules daily at bedtime. Do all this for 90 days. - blood sugar diagnostic (TRUE METRIX GLUCOSE TEST STRIP) test strip Use with blood glucose test once daily - lancets (TRUEPLUS LANCETS) 33 gauge Use with blood glucose test once daily - Blood-Glucose Meter (TRUE METRIX GLUCOSE METER) 1 Each once daily. - ergocalciferol 50,000 unit capsule (VITAMIN D2, DRISDOL) TAKE 1 CAPSULE ONE TIME WEEKLY - clonazePAM (KLONOPIN) 0.5 mg tablet Take 1 tablet by mouth as needed. For restless leg syndrome - loratadine (CLARITIN) 10 mg tablet Take 10 mg by mouth once daily. - fluticasone (FLONASE) 50 mcg/actuation nasal spray Use 2 Sprays in each nostril twice daily. - pen needle, diabetic (COMFORT EZ PEN NEEDLES) 33 gauge x 5/16 ndle To inject weekly - esomeprazole (NEXIUM) 20 mg capsule Take 1 capsule by mouth DAILY (6 AM). - MULTIVITAMIN (MULTI-DAY ORAL) Take by mouth once daily. - calcium carbonate 600 mg-cholecalciferol 200 units (CALCIUM 600 + D,3,) 600 mg(1,500mg) -200 unit tab Take 1 tablet by mouth once daily.NormalSelect Medical Specialty Hospital - TrumbullCNPNon [id number] (NENMMN) HOLA DOUGLAS ([id number]) 1945 F Date Time Provider Department 01/30/24 SHERYL SCHWARTZ During your visit today, we recorded the following information about you: Naina Ch 01/30/2024 10:27 AM Signed Call received for Sheryl Schwartz APRN.ENVIRONMENTAL ENGINEER SCIENTIST regarding Hola Douglas 1945. Caller: Self Patient Identified by Name and : Yes Was permission obtained from patient ? NA Reason for Call: Other: Patient called stating her BP is now high and wants to discuss dose of Fludrocortisone. Last Office Visit: 12/15/23 Last [facility] visit: Visit date not found Next scheduled appointment: 06/14/2024 Best number to reach caller: [phone] Best time to reach caller: any Is it OK to leave a detailed voice message? Yes Rosa Chan RN 01/30/2024 11:01 AM Signed Message sent to patient to obtain orthostatic vitals over 3 days. Gayle Roberto RN, BSN Allergies As of Date: 01/30/2024 Noted Allergy Reaction ASA (SALICYLATES) 12/17/2004 Comments: causes platelet disfunction ASPIRIN 08/28/2018 16 - Unknown 14 - Other: See Comments LEVAQUIN (LEVOFLOXACIN) 12/29/2017 2 - Rash 14 - Other: See Comments Comments: Per pt feels like she on fire AVELOX (MOXIFLOXACIN HCL) 06/03/2011 5 - Intolerance Comments: C/O burning feeling on skin Date Reviewed: 01/19/2024 Reviewed by: Edith Knott MA - Fully Assessed Reason for Visit: Patient Update [1234] Medication Update [1676] Prescriptions as of 01/30/2024 - semaglutide (OZEMPIC) 1 mg/dose (4 mg/3 mL) pen Inject 1 mg subcutaneously one time a week. - nateglinide (STARLIX) 60 mg tablet Take 1 tablet by mouth three times a day before meals for 4 days. Start after your steroid injection. - pravastatin (PRAVACHOL) 10 mg tablet Take 10 mg by mouth once daily. - fludrocortisone (FLORINEF) 0.1 mg tablet Take 2 tablets by mouth once daily. - gabapentin (NEURONTIN) 300 mg capsule Take 1 capsule by mouth two times a day AND 3 capsules daily at bedtime. Do all this for 90 days. - blood sugar diagnostic (TRUE METRIX GLUCOSE TEST STRIP) test strip Use with blood glucose test once daily - lancets (TRUEPLUS LANCETS) 33 gauge Use with blood glucose test once daily - Blood-Glucose Meter (TRUE METRIX GLUCOSE METER) 1 Each once daily. - ergocalciferol 50,000 unit capsule (VITAMIN D2, DRISDOL) TAKE 1 CAPSULE ONE TIME WEEKLY - clonazePAM (KLONOPIN) 0.5 mg tablet Take 1 tablet by mouth as needed. For restless leg syndrome - loratadine (CLARITIN) 10 mg tablet Take 10 mg by mouth once daily. - fluticasone (FLONASE) 50 mcg/actuation nasal spray Use 2 Sprays in each nostril twice daily. - pen needle, diabetic (COMFORT EZ PEN NEEDLES) 33 gauge x 5/16 ndle To inject weekly - esomeprazole (NEXIUM) 20 mg capsule Take 1 capsule by mouth DAILY (6 AM). - MULTIVITAMIN (MULTI-DAY ORAL) Take by mouth once daily. - calcium carbonate 600 mg-cholecalciferol 200 units (CALCIUM 600 + D,3,) 600 mg(1,500mg) -200 unit tab Take 1 tablet by mouth once daily. Problem List As Of Date 01/30/2024 Noted Resolved Lesion of ulnar nerve [G56.20] 12/15/2004 11/10/2018 Pain in limb [M79.609] 12/15/2004 11/10/2018 ABNORMAL FINDINGS-BREAST [793.8] 12/17/2004 LOC OSTEOARTH NOS-HAND [M19.049] 12/29/2004 CARPAL TUNNEL SYNDROME [G56.00] 06/01/2005 Type 2 diabetes mellitus with stage 3a chronic *06/15/2007 MIXED HYPERLIPIDEMIA [E78.2] 06/15/2007 Bursitis of hip [M70.70] 04/18/2013 Vitamin D insufficiency [E55.9] 01/11/2014 Right buttock pain [M79.18] 03/21/2015 Pain in right hip [M25.551] 03/21/2015 Greater trochanteric bursitis of right hip [M70*03/21/2015 Iron deficiency anemia, unspecified [D50.9] 11/22/2018 Osteoarthritis of knee [M17.9] 12/05/2018 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] 04/13/2019 Orthostatic hypotension [I95.1] 12/24/2020 Dyspnea on exertion [R06.09] 12/24/2020 Fatigue [R53.83] 12/24/2020 Tinnitus, right ear [H93.11] 03/16/2021 Sensory hearing loss, 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] 03/16/2021 Restless legs syndrome [G25.81] 05/21/2021 Postmenopausal status [Z78.0] 05/21/2021 Mixed anxiety depressive disorder [F41.8] 05/21/2021 Diverticulitis [K57.92] 05/21/2021 Cough [R05.9] 05/21/2021 Chronic pain [G89.29] 05/21/2021 Bruises easily [R23.3] 05/21/2021 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*11/18/2021 Elevated AST (SGOT) [R74.01] 11/18/2021 Dizziness [R42] 11/18/2021 Abnormal weight gain [R63.5] 06/23/2023 Chronic bilateral back pain [M54.9, G89.29] 11/29/2023 Encounter Status:Closed by SHERYL SCHWARTZ on 01/30/24NoVan Wert County HospitalJUSTICEon [id number] (PTAVTC) HOLA DOUGLAS ([id number]) 1945 F Date Time Provider Department 01/26/24 KARL LION PTAVTC During your visit today, we recorded the following information about you: Karl Lion, PT 01/26/2024 5:45 PM Signed PT called patient to ensure she was feeling better after having some dizziness and likely low blood sugar in PT session. Patient reports feeling much better and is now home and will take blood sugar levels. PT educated patient to seek medical attention if symptoms return or if glucose levels are out of appropriate ranges. Further progressions recommended. Karl Lion PT, DPT Board Certified Neurologic Clinical Specialist Allergies As of Date: 01/26/2024 Noted Allergy Reaction ASA (SALICYLATES) 12/17/2004 Comments: causes platelet disfunction ASPIRIN 08/28/2018 16 - Unknown 14 - Other: See Comments LEVAQUIN (LEVOFLOXACIN) 12/29/2017 2 - Rash 14 - Other: See Comments Comments: Per pt feels like she on fire AVELOX (MOXIFLOXACIN HCL) 06/03/2011 5 - Intolerance Comments: C/O burning feeling on skin Date Reviewed: 01/19/2024 Reviewed by: Edith Knott MA - Fully Assessed Reason for Visit: Patient Update [1234] Prescriptions as of 01/26/2024 - semaglutide (OZEMPIC) 1 mg/dose (4 mg/3 mL) pen Inject 1 mg subcutaneously one time a week. - nateglinide (STARLIX) 60 mg tablet Take 1 tablet by mouth three times a day before meals for 4 days. Start after your steroid injection. - pravastatin (PRAVACHOL) 10 mg tablet Take 10 mg by mouth once daily. - fludrocortisone (FLORINEF) 0.1 mg tablet Take 2 tablets by mouth once daily. - gabapentin (NEURONTIN) 300 mg capsule Take 1 capsule by mouth two times a day AND 3 capsules daily at bedtime. Do all this for 90 days. - blood sugar diagnostic (TRUE METRIX GLUCOSE TEST STRIP) test strip Use with blood glucose test once daily - lancets (TRUEPLUS LANCETS) 33 gauge Use with blood glucose test once daily - Blood-Glucose Meter (TRUE METRIX GLUCOSE METER) 1 Each once daily. - ergocalciferol 50,000 unit capsule (VITAMIN D2, DRISDOL) TAKE 1 CAPSULE ONE TIME WEEKLY - clonazePAM (KLONOPIN) 0.5 mg tablet Take 1 tablet by mouth as needed. For restless leg syndrome - loratadine (CLARITIN) 10 mg tablet Take 10 mg by mouth once daily. - fluticasone (FLONASE) 50 mcg/actuation nasal spray Use 2 Sprays in each nostril twice daily. - pen needle, diabetic (COMFORT EZ PEN NEEDLES) 33 gauge x 5/16 ndle To inject weekly - esomeprazole (NEXIUM) 20 mg capsule Take 1 capsule by mouth DAILY (6 AM). - MULTIVITAMIN (MULTI-DAY ORAL) Take by mouth once daily. - calcium carbonate 600 mg-cholecalciferol 200 units (CALCIUM 600 + D,3,) 600 mg(1,500mg) -200 unit tab Take 1 tablet by mouth once daily. Problem List As Of Date 01/26/2024 Noted Resolved Lesion of ulnar nerve [G56.20] 12/15/2004 11/10/2018 Pain in limb [M79.609] 12/15/2004 11/10/2018 ABNORMAL FINDINGS-BREAST [793.8] 12/17/2004 LOC OSTEOARTH NOS-HAND [M19.049] 12/29/2004 CARPAL TUNNEL SYNDROME [G56.00] 06/01/2005 Type 2 diabetes mellitus with stage 3a chronic *06/15/2007 MIXED HYPERLIPIDEMIA [E78.2] 06/15/2007 Bursitis of hip [M70.70] 04/18/2013 Vitamin D insufficiency [E55.9] 01/11/2014 Right buttock pain [M79.18] 03/21/2015 Pain in right hip [M25.551] 03/21/2015 Greater trochanteric bursitis of right hip [M70*03/21/2015 Iron deficiency anemia, unspecified [D50.9] 11/22/2018 Osteoarthritis of knee [M17.9] 12/05/2018 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] 04/13/2019 Orthostatic hypotension [I95.1] 12/24/2020 Dyspnea on exertion [R06.09] 12/24/2020 Fatigue [R53.83] 12/24/2020 Tinnitus, right ear [H93.11] 03/16/2021 Sensory hearing loss, 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] 03/16/2021 Restless legs syndrome [G25.81] 05/21/2021 Postmenopausal status [Z78.0] 05/21/2021 Mixed anxiety depressive disorder [F41.8] 05/21/2021 Diverticulitis [K57.92] 05/21/2021 Cough [R05.9] 05/21/2021 Chronic pain [G89.29] 05/21/2021 Bruises easily [R23.3] 05/21/2021 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*11/18/2021 Elevated AST (SGOT) [R74.01] 11/18/2021 Dizziness [R42] 11/18/2021 Abnormal weight gain [R63.5] 06/23/2023 Chronic bilateral back pain [M54.9, G89.29] 11/29/2023 Encounter Status:Closed by KARL LION on 01/26/24[facility]HERAPYon [id number]/PT/Speech Visit ([facility]) HOLA DOUGLAS ([id number]) 1945 F Date Time Provider Department 01/26/24 3:15 PM KARL LION [facility] Date Time Provider Department Center 01/26/2024 3:15 PM [id number], MARY [facility] Vivien Herron Reason for Visit: Physical Therapy [503] Primary Visit Diagnosis: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athy (HCC) [E11.42] Other Visit Diagnosis:Imbalance [R26.89] Allergies As of Date: 01/26/2024 Noted Allergy Reaction ASA (SALICYLATES) 12/17/2004 Comments: causes platelet disfunction ASPIRIN 08/28/2018 16 - Unknown 14 - Other: See Comments LEVAQUIN (LEVOFLOXACIN) 12/29/2017 2 - Rash 14 - Other: See Comments Comments: Per pt feels like she on fire AVELOX (MOXIFLOXACIN HCL) 06/03/2011 5 - Intolerance Comments: C/O burning feeling on skin Date Reviewed: 01/19/2024 Reviewed by: Edith Knott MA - Fully Assessed Prescriptions as of 01/26/2024 - semaglutide (OZEMPIC) 1 mg/dose (4 mg/3 mL) pen Inject 1 mg subcutaneously one time a week. - nateglinide (STARLIX) 60 mg tablet Take 1 tablet by mouth three times a day before meals for 4 days. Start after your steroid injection. - pravastatin (PRAVACHOL) 10 mg tablet Take 10 mg by mouth once daily. - fludrocortisone (FLORINEF) 0.1 mg tablet Take 2 tablets by mouth once daily. - gabapentin (NEURONTIN) 300 mg capsule Take 1 capsule by mouth two times a day AND 3 capsules daily at bedtime. Do all this for 90 days. - blood sugar diagnostic (TRUE METRIX GLUCOSE TEST STRIP) test strip Use with blood glucose test once daily - lancets (TRUEPLUS LANCETS) 33 gauge Use with blood glucose test once daily - Blood-Glucose Meter (TRUE METRIX GLUCOSE METER) 1 Each once daily. - ergocalciferol 50,000 unit capsule (VITAMIN D2, DRISDOL) TAKE 1 CAPSULE ONE TIME WEEKLY - clonazePAM (KLONOPIN) 0.5 mg tablet Take 1 tablet by mouth as needed. For restless leg syndrome - loratadine (CLARITIN) 10 mg tablet Take 10 mg by mouth once daily. - fluticasone (FLONASE) 50 mcg/actuation nasal spray Use 2 Sprays in each nostril twice daily. - pen needle, diabetic (COMFORT EZ PEN NEEDLES) 33 gauge x 5/16 ndle To inject weekly - esomeprazole (NEXIUM) 20 mg capsule Take 1 capsule by mouth DAILY (6 AM). - MULTIVITAMIN (MULTI-DAY ORAL) Take by mouth once daily. - calcium carbonate 600 mg-cholecalciferol 200 units (CALCIUM 600 + D,3,) 600 mg(1,500mg) -200 unit tab Take 1 tablet by mouth once daily.NormalGeorgetown Behavioral HospitalKO ON DEMANDon [id number] by an unspecified provider.[facility]tering Health DaytonHEMOGLOBIN A1C (POC)on [id number] (Bld) [Mass fraction]6.8 %Abnormal 4.3 - 5.6 %Wilson HealthComment on above:Location:[facility], [id number] [place] [address], [place], [place], [address] Point of care (POC) Hemoglobin A1c (HGBA1C) testing is intended to assess glucose control and provide a management tool for patients known to have diabetes and their healthcare providers. Target HGBA1C levels may depend on specific clinical circumstances. POC HGBA1C is not intended for use as a diagnostic or screening test; laboratory-based testing should be used for diagnostic purposes. The following information is supplemental and may not be applicable to specific diabetes management situations: The POC device chainstitch felled seam operator provides a normal range of 4.2% to 6.5% for the HGBA1C POC test. However, the [place] [employer] guidelines indicate that patients with HGBA1C in the range of 5.7% to 6.4% are at increased risk for development of diabetes and that intervention by lifestyle modification may be beneficial. A HGBA1C level greater than or equal to 6.5% is considered diagnostic of diabetes, pending confirmatory testing. Use of HGBA1C testing to evaluate glucose control may not be appropriate for patients with hemoglobin variants or other conditions (e.g. anemia) that alter red blood cell lifespan. Interpretation and review of laboratory resultsAbnormalClevelSt. Vincent HospitalXR CERV OTHER 4V AP/LAT/FLX/EXTon [id number]: Multilevel degenerative changes of the cervical spine with mild spondylolisthesis of C4 and C7. Congenital fusion of C5-C6 vertebral bodies. Fire Marshal: HEIDI Transcribe Date/Time: Jan 16 2024 10:18A Dictated by : TAQUERIA SKY MD This examination was interpreted and the report reviewed and electronically signed by: COLTEN DIANE MD on Jan 16 2024 10:37AM [facility] DIVISION OF RADIOLOGY* * *Final Report* * * DATE OF EXAM: Jan 16 2024 10:14AM [facility] [id number] - XR CERVICAL 4V AP/LAT/FLX/EXT / PROCEDURE REASON: Anterolisthesis of cervical spine * * * * Physician Interpretation * * * * EXAMINATION: XR CERVICAL 4V AP/LAT/FLX/EXT CLINICAL HISTORY: Anterolisthesis of cervical spine TECHNOLOGIST PROVIDED HISTORY: COMPARISON: MRI C-spine 12/04/2023 COUNTING REFERENCE: Craniocervical junction. Anatomic Variants: None. RESULT: No acute fracture or compression deformity. Mild anterolisthesis of C4 on C5 and minimal anterolisthesis of C7 on T1 without change on flexion/extension. Vertebral body heights preserved. Mild disc space narrowing at C4-C5 and C6-C7. 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 Degenerative changes SI joints at multiple levels including C4/C5 and C7/T1.. No prevertebral soft tissue swelling. DIVISION OF RADIOLOGYProvider, [facility] [place] - 01/16/2024 * * *Final Report* * * DATE OF EXAM: Jan 16 2024 10:14AM [id number] - XR CERVICAL 4V AP/LAT/FLX/EXT / PROCEDURE REASON: Anterolisthesis of cervical spine * * * * Physician Interpretation * * * * EXAMINATION: XR CERVICAL 4V AP/LAT/FLX/EXT CLINICAL HISTORY: Anterolisthesis of cervical spine TECHNOLOGIST PROVIDED HISTORY: COMPARISON: MRI C-spine 12/04/2023 COUNTING REFERENCE: Craniocervical junction. Anatomic Variants: None. RESULT: No acute fracture or compression deformity. Mild anterolisthesis of C4 on C5 and minimal anterolisthesis of C7 on T1 without change on flexion/extension. Vertebral body heights preserved. Mild disc space narrowing at C4-C5 and C6-C7. 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 Degenerative changes SI joints at multiple levels including C4/C5 and C7/T1.. No prevertebral soft tissue swelling. IMPRESSION IMPRESSION: Multilevel degenerative changes of the cervical spine with mild spondylolisthesis of C4 and C7. Congenital fusion of C5-C6 vertebral bodies. Fire Marshal: HEIDI Transcribe Date/Time: Jan 16 2024 10:18A Dictated by : TAQUERIA SKY MD This examination was interpreted and the report reviewed and electronically signed by: COLTEN DIANE MD on Jan 16 2024 10:37AM EST [facility] HealthRadiology Study observation (narrative)[facility] HealthXR CERV OTHER 4V AP/LAT/FLX/EXTOrdered By: Ccf Provider on [id number] ClinicDBT Breast - bilateral diagnostic for implanton [id number]: There is no mammographic evidence of malignancy in either breast. Return to screening mammogram in 1 year is recommended. BI-RADS Category 1: Negative RISK: Based on the Tyrer-Cuzick (TC) risk assessment model, this patient has a 2.8% lifetime risk of developing breast cancer, meaning they are at average risk for developing breast cancer. However, this is only an estimate based on available history provided on the patient's questionnaire. We encourage all patients talk with their providers about these results, further recommendations for managing breast health, and appropriate supplemental screening options if the patient has dense breast tissue. Interpreting Radiologist: Sergey Fountain M.D. Fire Marshal: RIAZ Transcribe Date/Time: Jan 05 2024 2:59P Dictated by : SERGEY FOUNTAIN MD This examination was interpreted and the report reviewed and electronically signed by: SERGEY FOUNTAIN MD on Jan 05 2024 3:23PM [facility] DIVISION OF RADIOLOGY* * *Final Report* * * DATE OF EXAM: Jan 05 2024 3:13PM [facility] - ITALO DIAG W BENIGNO MENJIVAR / PROCEDURE REASON: Mastodynia * * * * Physician Interpretation * * * * RESULT: [place] [address] HISTORY: Patient is 78 years old and is seen for diagnostic evaluation of diffuse pain in both breasts. The patient has no personal history of cancer. COMPARISON STUDIES: The present examination has been compared to prior imaging studies dated 07/17/2020 (mammogram), 10/22/2021 (mammogram) and 12/30/2022 (mammogram). MAMMOGRAM TECHNIQUE: The study was acquired using full field digital technology and interpreted from soft copy. Digital Breast Tomosynthesis (DBT) images were obtained and used to assist in the interpretation of this examination. Computer-aided detection was utilized by the radiologist in the interpretation of this examination. MAMMOGRAM FINDINGS: There are scattered areas of fibroglandular density. No suspicious masses, calcifications or other abnormalities are seen in either breast. There are no significant changes from the prior study. DIVISION OF RADIOLOGYProvider, [facility] [place] - 01/05/2024 * * *Final Report* * * DATE OF EXAM: Jan 05 2024 3:13PM [facility] - ITALO DIAG W BENIGNO MENJIVAR / PROCEDURE REASON: Mastodynia * * * * Physician Interpretation * * * * RESULT: [place] [id number] HISTORY: Patient is 78 years old and is seen for diagnostic evaluation of diffuse pain in both breasts. The patient has no personal history of cancer. COMPARISON STUDIES: The present examination has been compared to prior imaging studies dated 07/17/2020 (mammogram), 10/22/2021 (mammogram) and 12/30/2022 (mammogram). MAMMOGRAM TECHNIQUE: The study was acquired using full field digital technology and interpreted from soft copy. Digital Breast Tomosynthesis (DBT) images were obtained and used to assist in the interpretation of this examination. Computer-aided detection was utilized by the radiologist in the interpretation of this examination. MAMMOGRAM FINDINGS: There are scattered areas of fibroglandular density. No suspicious masses, calcifications or other abnormalities are seen in either breast. There are no significant changes from the prior study. IMPRESSION IMPRESSION: There is no mammographic evidence of malignancy in either breast. Return to screening mammogram in 1 year is recommended. BI-RADS Category 1: Negative RISK: Based on the Tyrer-Cuzick (TC) risk assessment model, this patient has a 2.8% lifetime risk of developing breast cancer, meaning they are at average risk for developing breast cancer. However, this is only an estimate based on available history provided on the patient's questionnaire. We encourage all patients talk with their providers about these results, further recommendations for managing breast health, and appropriate supplemental screening options if the patient has dense breast tissue. Interpreting Radiologist: Sergey Fountain M.D. Fire Marshal: RIAZ Transcribe Date/Time: Jan 05 2024 2:59P Dictated by : SERGEY FOUNTAIN MD This examination was interpreted and the report reviewed and electronically signed by: SERGEY FOUNTAIN MD on Jan 05 2024 3:23PM [facility]imaRadiology Study observation (narrative)[facility] HealthDB Breast - bilateral diagnostic for implantOrdered By: Ccf Provider on 01-05-2024 Wilson HealthInfluenza virus B Ag [Presence] in Upper respiratory specimen by Rapid immunoassayon [id number] Ag IA.rapid Ql (Nph)NegativeOhiohealth Grady Memorial HospitalFLUBV Ag IA.rapid Ql (Nph)Influenza virus B Ag [Presence] in Upper respiratory specimen by Rapid immunoassayOhiohealth Grady Memorial HospitalNo Panel Informationon [id number] Type A (Rapid)NegativeOhiohealth Grady Memorial HospitalPO SARS CoV-2 AntigenNegativeOhiohealth Grady Memorial HospitalMR Cervical spine WO contraston [id number]: At C4-5, there is a shallow broad disc osteophyte complex indenting the thecal sac. There is moderate right and mild left foraminal stenosis. 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 No significant central canal or foraminal stenosis. At C6-7, there is a shallow broad disc osteophyte complex indenting the thecal sac. There is moderate left foraminal stenosis. Intrinsic cord signal is normal. 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 Fire Marshal: HEIDI Transcribe Date/Time: Dec 04 2023 11:51A Dictated by : DENISE LEOMS MD This examination was interpreted and the report reviewed and electronically signed by: DENISE LEMOS MD on Dec 04 2023 12:02PM [facility] VIVIEN RADIOLOGY* * *Final Report* * * DATE OF EXAM: Dec 04 2023 11:18AM [facility] 0297 - MRI CERVICAL SPINE WO IVCON / PROCEDURE REASON: multiple diagnoses * * * * Physician Interpretation * * * * EXAMINATION: MRI CERVICAL SPINE WO IVCON CLINICAL HISTORY: Spinal stenosis of cervical region Bilateral arm weakness. Right arm weakness rule out myelopathy. TECHNIQUE: Routine cervical spine MR protocol without gadolinium. MQ: [id number] COMPARISON: None. RESULT: Counting reference: Craniocervical junction. 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 Localizer images: Unremarkable. Alignment: There is a mild anterolisthesis of C4 upon C5. There is a minimal anterolisthesis of C7 upon T1.. Craniocervical junction: Craniocervical junction is normal. Cord: The visualized cord is within normal limits of signal intensity and morphology. Bone marrow signal/fracture: No evidence of pathologic marrow infiltration. No evidence of prior fracture. Cervical soft tissues: The paraspinal soft tissues are within normal limits. C2-3: There is a disc bulge indenting the thecal sac. No significant central canal or foraminal stenosis. C3-4: There is a disc bulge indenting the thecal sac. The central canal is maintained. There is mild bilateral foraminal narrowing secondary to facet hypertrophy. The left foramen is patent. C4-5: There is a shallow broad disc osteophyte complex indenting the thecal sac. There is no cord compression or canal stenosis. There is moderate right and mild left foraminal stenosis secondary to facet and uncovertebral joint hypertrophy. 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 No significant central canal or foraminal stenosis. C6-7: There is a shallow broad disc osteophyte complex indenting the thecal sac. There is no cord compression or canal stenosis. There is moderate left foraminal stenosis secondary to facet and uncovertebral joint hypertrophy. The right neural foramen is patent. VIVIEN RADIOLOGYProvider, [facility] [place] - 12/04/2023 * * *Final Report* * * DATE OF EXAM: Dec 04 2023 11:18AM [facility] 0297 - MRI CERVICAL SPINE WO IVCON / PROCEDURE REASON: multiple diagnoses * * * * Physician Interpretation * * * * EXAMINATION: MRI CERVICAL SPINE WO IVCON CLINICAL HISTORY: Spinal stenosis of cervical region Bilateral arm weakness. Right arm weakness rule out myelopathy. TECHNIQUE: Routine cervical spine MR protocol without gadolinium. MQ: [id number] COMPARISON: None. RESULT: Counting reference: Craniocervical junction. 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 Localizer images: Unremarkable. Alignment: There is a mild anterolisthesis of C4 upon C5. There is a minimal anterolisthesis of C7 upon T1.. Craniocervical junction: Craniocervical junction is normal. Cord: The visualized cord is within normal limits of signal intensity and morphology. Bone marrow signal/fracture: No evidence of pathologic marrow infiltration. No evidence of prior fracture. Cervical soft tissues: The paraspinal soft tissues are within normal limits. C2-3: There is a disc bulge indenting the thecal sac. No significant central canal or foraminal stenosis. C3-4: There is a disc bulge indenting the thecal sac. The central canal is maintained. There is mild bilateral foraminal narrowing secondary to facet hypertrophy. The left foramen is patent. C4-5: There is a shallow broad disc osteophyte complex indenting the thecal sac. There is no cord compression or canal stenosis. There is moderate right and mild left foraminal stenosis secondary to facet and uncovertebral joint hypertrophy. 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 No significant central canal or foraminal stenosis. C6-7: There is a shallow broad disc osteophyte complex indenting the thecal sac. There is no cord compression or canal stenosis. There is moderate left foraminal stenosis secondary to facet and uncovertebral joint hypertrophy. The right neural foramen is patent. IMPRESSION IMPRESSION: At C4-5, there is a shallow broad disc osteophyte complex indenting the thecal sac. There is moderate right and mild left foraminal stenosis. 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 No significant central canal or foraminal stenosis. At C6-7, there is a shallow broad disc osteophyte complex indenting the thecal sac. There is moderate left foraminal stenosis. Intrinsic cord signal is normal. 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 Fire Marshal: HEIDI Transcribe Date/Time: Dec 04 2023 11:51A Dictated by : DENISE LEMOS MD This examination was interpreted and the report reviewed and electronically signed by: DENISE LEMOS MD on Dec 04 2023 12:02PM EST [facility] HealthRadiology Study observation (narrative)[facility] HealthMR Cervical spine WO contrastOrdered By: Ccf Provider on [id number] Clinic MR Lumbar spine WO contraston [id number]: At L3-4, there is a new right subarticular and foraminal disc osteophyte complex compressing both the exiting L3 nerve and traversing L4 nerve root. There is progressing mild to moderate central canal stenosis. There is progressing mild left foraminal stenosis. At L4-5, there is progressing mild to moderate central canal stenosis. There is progressing mild to moderate bilateral foraminal stenosis. At L5-S1, there is a mildly progressing left paracentral and foraminal disc osteophyte complex. There is progressing mass effect and displacement of the left traversing S1 nerve root. There is progressing moderate to severe left foraminal stenosis. Anatomic Lumbar Variant: None. L4-5 is considered the level of the iliac crest and assume there are 5 lumbar-type vertebrae. Fire Marshal: [facility] Transcribe Date/Time: Dec 04 2023 11:42A Dictated by : DENISE LEMOS MD This examination was interpreted and the report reviewed and electronically signed by: DENISE LEMOS MD on Dec 04 2023 11:51AM [facility] RADIOLOGY* * *Final Report* * * DATE OF EXAM: Dec 04 2023 11:17AM [facility] 0303 - MRI LUMBAR SPINE WO IVCON / PROCEDURE REASON: multiple diagnoses * * * * Physician Interpretation * * * * EXAMINATION: MRI LUMBAR SPINE WO IVCON CLINICAL HISTORY: Spinal stenosis of lumbar region, unspecified whether neurogenic claudication present Lumbosacral spondylosis with radiculopathy TECHNIQUE: Routine lumbosacral spine MR protocol without gadolinium. MQ: [id number] COMPARISON: MRI lumbar spine 01/01/2010. RESULT: Counting reference: Lumbosacral junction. For the purposes of this report, L4-5 is considered the level of the iliac crest and assume there are 5 lumbar-type vertebrae. Anatomic variant: None. Vertebral bodies are normal in height. There is progressing severe disc space narrowing at L3-4 with progressing endplate degenerative changes. There is stable slight disc space narrowing and endplate degenerative changes at L4-5 and L5-S1. There is a progressing moderate levoscoliosis centered at L3-4. The conus medullaris has a normal appearance and terminates at approximately the L1 level. L1-2: There is a disc bulge asymmetric to the left. There is mild facet hypertrophy. The central canal is maintained. There is mild left foraminal narrowing. The right foramen is patent. Findings are stable. L2-3: There is a grade 1 spondylolisthesis without evidence of spondylolysis. There is a disc bulge and moderate facet hypertrophy. The central canal is maintained. There is mild right and moderate left foraminal stenosis. Findings are stable. L3-4: There is a persistent disc bulge with a superimposed new right subarticular and foraminal disc osteophyte complex. It compresses both the right exiting L3 nerve and right traversing L4 nerve root. There is progressing facet and ligamentum flavum hypertrophy. There is progressing mild to moderate central canal stenosis. There is progressing mild left foraminal stenosis. L4-5: There is a persistent disc bulge indenting the thecal sac. There is progressing facet and ligamentum flavum hypertrophy. There is progressing mild to moderate central canal stenosis. There is progressing mild to moderate bilateral foraminal stenosis. L5-S1: There is a mildly progressing left paracentral and foraminal disc osteophyte complex. There is progressing mass effect and displacement of the left traversing S1 nerve root. There is progressing facet hypertrophy. There is progressing mild central canal stenosis. There is progressing moderate to severe left foraminal narrowing. The right foramen remains patent. Sacrum and iliac wings: The visualized sacrum and iliac wings are within normal limits. VIVIEN RADIOLOGYProvider, [facility] [place] - 12/04/2023 * * *Final Report* * * DATE OF EXAM: Dec 04 2023 11:17AM [facility] 0303 - MRI LUMBAR SPINE WO IVCON / PROCEDURE REASON: multiple diagnoses * * * * Physician Interpretation * * * * EXAMINATION: MRI LUMBAR SPINE WO IVCON CLINICAL HISTORY: Spinal stenosis of lumbar region, unspecified whether neurogenic claudication present Lumbosacral spondylosis with radiculopathy TECHNIQUE: Routine lumbosacral spine MR protocol without gadolinium. MQ: [id number] COMPARISON: MRI lumbar spine 01/01/2010. RESULT: Counting reference: Lumbosacral junction. For the purposes of this report, L4-5 is considered the level of the iliac crest and assume there are 5 lumbar-type vertebrae. Anatomic variant: None. Vertebral bodies are normal in height. There is progressing severe disc space narrowing at L3-4 with progressing endplate degenerative changes. There is stable slight disc space narrowing and endplate degenerative changes at L4-5 and L5-S1. There is a progressing moderate levoscoliosis centered at L3-4. The conus medullaris has a normal appearance and terminates at approximately the L1 level. L1-2: There is a disc bulge asymmetric to the left. There is mild facet hypertrophy. The central canal is maintained. There is mild left foraminal narrowing. The right foramen is patent. Findings are stable. L2-3: There is a grade 1 spondylolisthesis without evidence of spondylolysis. There is a disc bulge and moderate facet hypertrophy. The central canal is maintained. There is mild right and moderate left foraminal stenosis. Findings are stable. L3-4: There is a persistent disc bulge with a superimposed new right subarticular and foraminal disc osteophyte complex. It compresses both the right exiting L3 nerve and right traversing L4 nerve root. There is progressing facet and ligamentum flavum hypertrophy. There is progressing mild to moderate central canal stenosis. There is progressing mild left foraminal stenosis. L4-5: There is a persistent disc bulge indenting the thecal sac. There is progressing facet and ligamentum flavum hypertrophy. There is progressing mild to moderate central canal stenosis. There is progressing mild to moderate bilateral foraminal stenosis. L5-S1: There is a mildly progressing left paracentral and foraminal disc osteophyte complex. There is progressing mass effect and displacement of the left traversing S1 nerve root. There is progressing facet hypertrophy. There is progressing mild central canal stenosis. There is progressing moderate to severe left foraminal narrowing. The right foramen remains patent. Sacrum and iliac wings: The visualized sacrum and iliac wings are within normal limits. IMPRESSION IMPRESSION: At L3-4, there is a new right subarticular and foraminal disc osteophyte complex compressing both the exiting L3 nerve and traversing L4 nerve root. There is progressing mild to moderate central canal stenosis. There is progressing mild left foraminal stenosis. At L4-5, there is progressing mild to moderate central canal stenosis. There is progressing mild to moderate bilateral foraminal stenosis. At L5-S1, there is a mildly progressing left paracentral and foraminal disc osteophyte complex. There is progressing mass effect and displacement of the left traversing S1 nerve root. There is progressing moderate to severe left foraminal stenosis. Anatomic Lumbar Variant: None. L4-5 is considered the level of the iliac crest and assume there are 5 lumbar-type vertebrae. Fire Marshal: [facility] Transcribe Date/Time: Dec 04 2023 11:42A Dictated by : DENISE LEMOS MD This examination was interpreted and the report reviewed and electronically signed by: DENISE LEMOS MD on Dec 04 2023 11:51AM EST [facility] (narrative)[facility] Lumbar spine WO contrastOrdered By: Ccf Provider on [id number] ClinicMRI CERVICAL SPINE WO IVCONon [id number] CERVICAL SPINE WO IVCON* * *Final Report* * * DATE OF EXAM: Dec 04 2023 11:18AM [facility] 0297 - MRI CERVICAL SPINE WO IVCON / PROCEDURE REASON: multiple diagnoses * * * * Physician Interpretation * * * * EXAMINATION: MRI CERVICAL SPINE WO IVCON CLINICAL HISTORY: Spinal stenosis of cervical region Bilateral arm weakness. Right arm weakness rule out myelopathy. TECHNIQUE: Routine cervical spine MR protocol without gadolinium. MQ: [id number] COMPARISON: None. RESULT: Counting reference: Craniocervical junction. 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 Localizer images: Unremarkable. Alignment: There is a mild anterolisthesis of C4 upon C5. There is a minimal anterolisthesis of C7 upon T1.. Craniocervical junction: Craniocervical junction is normal. Cord: The visualized cord is within normal limits of signal intensity and morphology. Bone marrow signal/fracture: No evidence of pathologic marrow infiltration. No evidence of prior fracture. Cervical soft tissues: The paraspinal soft tissues are within normal limits. C2-3: There is a disc bulge indenting the thecal sac. No significant central canal or foraminal stenosis. C3-4: There is a disc bulge indenting the thecal sac. The central canal is maintained. There is mild bilateral foraminal narrowing secondary to facet hypertrophy. The left foramen is patent. C4-5: There is a shallow broad disc osteophyte complex indenting the thecal sac. There is no cord compression or canal stenosis. There is moderate right and mild left foraminal stenosis secondary to facet and uncovertebral joint hypertrophy. 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 No significant central canal or foraminal stenosis. C6-7: There is a shallow broad disc osteophyte complex indenting the thecal sac. There is no cord compression or canal stenosis. There is moderate left foraminal stenosis secondary to facet and uncovertebral joint hypertrophy. The right neural foramen is patent. IMPRESSION: At C4-5, there is a shallow broad disc osteophyte complex indenting the thecal sac. There is moderate right and mild left foraminal stenosis. 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 No significant central canal or foraminal stenosis. At C6-7, there is a shallow broad disc osteophyte complex indenting the thecal sac. There is moderate left foraminal stenosis. Intrinsic cord signal is normal. 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 Fire Marshal: PSCB Transcribe Date/Time: Dec 04 2023 11:51A Dictated by : DENISE LEMOS MD This examination was interpreted and the report reviewed and electronically signed by: DENISE LEMOS MD on Dec 04 2023 12:02PM EST [id number] LUMBAR SPINE WO IVCONon 12-04-2023 MRI LUMBAR SPINE WO IVCON* * *Final Report* * * DATE OF EXAM: Dec 04 2023 11:17AM [facility] 0303 - MRI LUMBAR SPINE WO IVCON / PROCEDURE REASON: multiple diagnoses * * * * Physician Interpretation * * * * EXAMINATION: MRI LUMBAR SPINE WO IVCON CLINICAL HISTORY: Spinal stenosis of lumbar region, unspecified whether neurogenic claudication present Lumbosacral spondylosis with radiculopathy TECHNIQUE: Routine lumbosacral spine MR protocol without gadolinium. MQ: [id number] COMPARISON: MRI lumbar spine 01/01/2010. RESULT: Counting reference: Lumbosacral junction. For the purposes of this report, L4-5 is considered the level of the iliac crest and assume there are 5 lumbar-type vertebrae. Anatomic variant: None. Vertebral bodies are normal in height. There is progressing severe disc space narrowing at L3-4 with progressing endplate degenerative changes. There is stable slight disc space narrowing and endplate degenerative changes at L4-5 and L5-S1. There is a progressing moderate levoscoliosis centered at L3-4. The conus medullaris has a normal appearance and terminates at approximately the L1 level. L1-2: There is a disc bulge asymmetric to the left. There is mild facet hypertrophy. The central canal is maintained. There is mild left foraminal narrowing. The right foramen is patent. Findings are stable. L2-3: There is a grade 1 spondylolisthesis without evidence of spondylolysis. There is a disc bulge and moderate facet hypertrophy. The central canal is maintained. There is mild right and moderate left foraminal stenosis. Findings are stable. L3-4: There is a persistent disc bulge with a superimposed new right subarticular and foraminal disc osteophyte complex. It compresses both the right exiting L3 nerve and right traversing L4 nerve root. There is progressing facet and ligamentum flavum hypertrophy. There is progressing mild to moderate central canal stenosis. There is progressing mild left foraminal stenosis. L4-5: There is a persistent disc bulge indenting the thecal sac. There is progressing facet and ligamentum flavum hypertrophy. There is progressing mild to moderate central canal stenosis. There is progressing mild to moderate bilateral foraminal stenosis. L5-S1: There is a mildly progressing left paracentral and foraminal disc osteophyte complex. There is progressing mass effect and displacement of the left traversing S1 nerve root. There is progressing facet hypertrophy. There is progressing mild central canal stenosis. There is progressing moderate to severe left foraminal narrowing. The right foramen remains patent. Sacrum and iliac wings: The visualized sacrum and iliac wings are within normal limits. IMPRESSION: At L3-4, there is a new right subarticular and foraminal disc osteophyte complex compressing both the exiting L3 nerve and traversing L4 nerve root. There is progressing mild to moderate central canal stenosis. There is progressing mild left foraminal stenosis. At L4-5, there is progressing mild to moderate central canal stenosis. There is progressing mild to moderate bilateral foraminal stenosis. At L5-S1, there is a mildly progressing left paracentral and foraminal disc osteophyte complex. There is progressing mass effect and displacement of the left traversing S1 nerve root. There is progressing moderate to severe left foraminal stenosis. Anatomic Lumbar Variant: None. L4-5 is considered the level of the iliac crest and assume there are 5 lumbar-type vertebrae. Fire Marshal: [facility] Transcribe Date/Time: Dec 04 2023 11:42A Dictated by : DENISE LEMOS MD This examination was interpreted and the report reviewed and electronically signed by: DENISE LEMOS MD on Dec 04 2023 11:51AM EST [id number] Specialty Hospital-Grosse PointeXR LUMBAR 4V AP/LAT/ FLEX/EXTon [id number] LUMBAR 4V AP/LAT/ FLEX/EXT* * *Final Report* * * DATE OF EXAM: Nov 29 2023 2:28PM [id number] - XR LUMBAR 4V AP/LAT/ FLEX/EXT / PROCEDURE REASON: multiple diagnoses * * * * Physician Interpretation * * * * EXAMINATION / TECHNIQUE: XR LUMBAR 4V AP/LAT/ FLEX/EXT HISTORY: chronic lower back pain Spinal stenosis of lumbar region, unspecified whether neurogenic claudication present Lumbosacral spondylosis with radiculopathy COMPARISON: 04/18/2013. RESULT: Counting reference: Lumbosacral junction. For the purposes of this report, L4-5 is considered the level of the iliac crest and assume there are 5 lumbar-type vertebrae. Anatomic variant: None. Vertebral body heights are maintained. Minimal retrolisthesis L3 on L4. Multilevel disc height loss is severe at L3-L4. There is mild leftward curvature of the lumbar spine. There is lower lumbar facet hypertrophy. The sacroiliac joints are intact. No dynamic instability. IMPRESSION: Degenerative changes as described. Fire Marshal: [facility] Transcribe Date/Time: Nov 29 2023 8:44P Dictated by : NATTY MALHOTRA MD This examination was interpreted and the report reviewed and electronically signed by: NATTY MALHOTRA MD on Nov 29 2023 8:44PM EST [id number] Lumbar spine Views W flexion and W extensionon [id number]: Degenerative changes as described. Fire Marshal: PSC Transcribe Date/Time: Nov 29 2023 8:44P Dictated by : NATTY MALHOTRA MD This examination was interpreted and the report reviewed and electronically signed by: NATTY MALHOTRA MD on Nov 29 2023 8:44PM EST [facility]* * *Final Report* * * DATE OF EXAM: Nov 29 2023 2:28PM [id number] - XR LUMBAR 4V AP/LAT/ FLEX/EXT / PROCEDURE REASON: multiple diagnoses * * * * Physician Interpretation * * * * EXAMINATION / TECHNIQUE: XR LUMBAR 4V AP/LAT/ FLEX/EXT HISTORY: chronic lower back pain Spinal stenosis of lumbar region, unspecified whether neurogenic claudication present Lumbosacral spondylosis with radiculopathy COMPARISON: 04/18/2013. RESULT: Counting reference: Lumbosacral junction. For the purposes of this report, L4-5 is considered the level of the iliac crest and assume there are 5 lumbar-type vertebrae. Anatomic variant: None. Vertebral body heights are maintained. Minimal retrolisthesis L3 on L4. Multilevel disc height loss is severe at L3-L4. There is mild leftward curvature of the lumbar spine. There is lower lumbar facet hypertrophy. The sacroiliac joints are intact. No dynamic instability. [facility] RADIOLOGYProvider, [facility] [place] - 11/29/2023 * * *Final Report* * * DATE OF EXAM: Nov 29 2023 2:28PM [id number] - XR LUMBAR 4V AP/LAT/ FLEX/EXT / PROCEDURE REASON: multiple diagnoses * * * * Physician Interpretation * * * * EXAMINATION / TECHNIQUE: XR LUMBAR 4V AP/LAT/ FLEX/EXT HISTORY: chronic lower back pain Spinal stenosis of lumbar region, unspecified whether neurogenic claudication present Lumbosacral spondylosis with radiculopathy COMPARISON: 04/18/2013. RESULT: Counting reference: Lumbosacral junction. For the purposes of this report, L4-5 is considered the level of the iliac crest and assume there are 5 lumbar-type vertebrae. Anatomic variant: None. Vertebral body heights are maintained. Minimal retrolisthesis L3 on L4. Multilevel disc height loss is severe at L3-L4. There is mild leftward curvature of the lumbar spine. There is lower lumbar facet hypertrophy. The sacroiliac joints are intact. No dynamic instability. IMPRESSION IMPRESSION: Degenerative changes as described. Fire Marshal: HEIDI Transcribe Date/Time: Nov 29 2023 8:44P Dictated by : NATTY MALHOTRA MD This examination was interpreted and the report reviewed and electronically signed by: NATTY MALHOTRA MD on Nov 29 2023 8:44PM EST [facility] (narrative)[facility] Lumbar spine Views W flexion and W extensionOrdered By: Ccf Provider on 11-29-2023 [facility] Brain WO and W contrast Tristan [id number]: 1. No acute intracranial process evident. 2. Periventricular signal abnormality without mass effect nor enhancement in keeping with small vessel ischemic changes. 3. Old ischemic changes in the right frontal white matter. 4. Central and cortical age related atrophy. 5. Mild paranasal sinus disease and mild fluid bilaterally at the mastoid air cells. Fire Marshal: HEIDI Transcribe Date/Time: Nov 05 2023 12:33P Dictated by : MELITON LUZ MD This examination was interpreted and the report reviewed and electronically signed by: MELITON LUZ MD on Nov 05 2023 12:38PM EST [facility]* * *Final Report* * * DATE OF EXAM: Nov 05 2023 11:54AM [facility] 0295 - MRI BRAIN WO/W IVCON / PROCEDURE REASON: multiple diagnoses * * * * Physician Interpretation * * * * HISTORY: 78-year-old with abnormal eye movements. TECHNIQUE: Routine MR imaging through the brain is performed both prior to and following the intravenous administration of 16 cc's of Dotarem. There are no prior studies for comparison. RESULT: Evaluation of diffusion-weighted images reveals no restricted diffusion within the brain parenchyma. Susceptibility weighted images reveal no magnetic susceptibility artifact to suggest intracranial hemorrhage. There is no mass effect, midline shift, nor extra-axial fluid collections identified. There are periventricular areas of increased T2 and FLAIR weighted signal intensity consistent with small vessel ischemic changes. There are more focal nonacute ischemic changes in the right frontal white matter. There is no abnormal signal intensity at the brainstem nor the cerebellum. There is prominence of the ventricular system and the cortical sulci in keeping with central and cortical atrophy. The flow voids of the vessels of the [place] and the dural venous sinuses are patent. There is mild mucosal thickening at the maxillary and ethmoid sinuses. There is mild fluid at the mastoid air cells bilaterally. Following IV contrast administration, there is no abnormal enhancement within the brain parenchyma nor at the leptomeningeal surface. Midline structures including corpus callosum, cerebellar vermis, brainstem, pituitary gland, and optic chiasm appear unremarkable. V[facility]EN RADIOLOGYProvider, [facility] [place] - 11/05/2023 * * *Final Report* * * DATE OF EXAM: Nov 05 2023 11:54AM [facility] 0295 - MRI BRAIN WO/W IVCON / PROCEDURE REASON: multiple diagnoses * * * * Physician Interpretation * * * * HISTORY: 78-year-old with abnormal eye movements. TECHNIQUE: Routine MR imaging through the brain is performed both prior to and following the intravenous administration of 16 cc's of Dotarem. There are no prior studies for comparison. RESULT: Evaluation of diffusion-weighted images reveals no restricted diffusion within the brain parenchyma. Susceptibility weighted images reveal no magnetic susceptibility artifact to suggest intracranial hemorrhage. There is no mass effect, midline shift, nor extra-axial fluid collections identified. There are periventricular areas of increased T2 and FLAIR weighted signal intensity consistent with small vessel ischemic changes. There are more focal nonacute ischemic changes in the right frontal white matter. There is no abnormal signal intensity at the brainstem nor the cerebellum. There is prominence of the ventricular system and the cortical sulci in keeping with central and cortical atrophy. The flow voids of the vessels of the [place] and the dural venous sinuses are patent. There is mild mucosal thickening at the maxillary and ethmoid sinuses. There is mild fluid at the mastoid air cells bilaterally. Following IV contrast administration, there is no abnormal enhancement within the brain parenchyma nor at the leptomeningeal surface. Midline structures including corpus callosum, cerebellar vermis, brainstem, pituitary gland, and optic chiasm appear unremarkable. IMPRESSION IMPRESSION: 1. No acute intracranial process evident. 2. Periventricular signal abnormality without mass effect nor enhancement in keeping with small vessel ischemic changes. 3. Old ischemic changes in the right frontal white matter. 4. Central and cortical age related atrophy. 5. Mild paranasal sinus disease and mild fluid bilaterally at the mastoid air cells. Fire Marshal: HEIDI Transcribe Date/Time: Nov 05 2023 12:33P Dictated by : MELITON LUZ MD This examination was interpreted and the report reviewed and electronically signed by: MELITON LUZ MD on Nov 05 2023 12:38PM EST [facility] (narrative)[facility] Brain WO and W contrast IVOrdered By: Ccf Provider on [id number] ClinicMRI BRAIN WO/W IVCONon [id number] BRAIN WO/W IVCON* * *Final Report* * * DATE OF EXAM: Nov 05 2023 11:54AM [facility] 0295 - MRI BRAIN WO/W IVCON / PROCEDURE REASON: multiple diagnoses * * * * Physician Interpretation * * * * HISTORY: 78-year-old with abnormal eye movements. TECHNIQUE: Routine MR imaging through the brain is performed both prior to and following the intravenous administration of 16 cc's of Dotarem. There are no prior studies for comparison. RESULT: Evaluation of diffusion-weighted images reveals no restricted diffusion within the brain parenchyma. Susceptibility weighted images reveal no magnetic susceptibility artifact to suggest intracranial hemorrhage. There is no mass effect, midline shift, nor extra-axial fluid collections identified. There are periventricular areas of increased T2 and FLAIR weighted signal intensity consistent with small vessel ischemic changes. There are more focal nonacute ischemic changes in the right frontal white matter. There is no abnormal signal intensity at the brainstem nor the cerebellum. There is prominence of the ventricular system and the cortical sulci in keeping with central and cortical atrophy. The flow voids of the vessels of the [place] and the dural venous sinuses are patent. There is mild mucosal thickening at the maxillary and ethmoid sinuses. There is mild fluid at the mastoid air cells bilaterally. Following IV contrast administration, there is no abnormal enhancement within the brain parenchyma nor at the leptomeningeal surface. Midline structures including corpus callosum, cerebellar vermis, brainstem, pituitary gland, and optic chiasm appear unremarkable. IMPRESSION: 1. No acute intracranial process evident. 2. Periventricular signal abnormality without mass effect nor enhancement in keeping with small vessel ischemic changes. 3. Old ischemic changes in the right frontal white matter. 4. Central and cortical age related atrophy. 5. Mild paranasal sinus disease and mild fluid bilaterally at the mastoid air cells. Fire Marshal: [facility] Transcribe Date/Time: Nov 05 2023 12:33P Dictated by : MELITON LUZ MD This examination was interpreted and the report reviewed and electronically signed by: MELITON LUZ MD on Nov 05 2023 12:38PM EST [id number] [facility] [id number] (AVXRGN) HOLA DOUGLAS ([id number]) 1945 F Date Time Provider Department 11/02/23 SHERYL GARZA AVXRGN During your visit today, we recorded the following information about you: Humera Lubin 11/02/2023 8:30 AM Signed Patient is coming in for an MRI on 11/04 and it looks like the order got discontinued for some reason. Can we get a new one placed ? MRI BRAIN WO/W IVCON Thank you in advance Sheryl Garza APRN.JUAN ANTONIO 11/02/2023 8:33 AM Signed New order placed, thank you. Sheryl Garza APRN.JUAN ANTONIO Allergies As of Date: 11/02/2023 Noted Allergy Reaction ASA (SALICYLATES) 12/17/2004 Comments: causes platelet disfunction ASPIRIN 08/28/2018 16 - Unknown 14 - Other: See Comments LEVAQUIN (LEVOFLOXACIN) 12/29/2017 2 - Rash 14 - Other: See Comments Comments: Per pt feels like she on fire AVELOX (MOXIFLOXACIN HCL) 06/03/2011 5 - Intolerance Comments: C/O burning feeling on skin Date Reviewed: 10/26/2023 Reviewed by: Karl Cook APRN.ENVIRONMENTAL ENGINEER SCIENTIST - Fully Assessed Reason for Visit: Orders [681] Prescriptions as of 11/02/2023 - iv contrast (will be provided with radiology test) MRI Brain Inject, intravenously, once for 1 dose.No IV access, insert saline lock prior to beginning of sedation, infusion, injection of imaging exam.Discontinue saline lock post exam. If Pt. has a central line or IVAD, may access for administration according to line specific nursing protocol.Once exam is complete flush line and de-access according to line specific nursing protocol in the MR contrast administration guidelines link - semaglutide (OZEMPIC) 1 mg/dose (4 mg/3 mL) pen Inject 1 mg subcutaneously one time a week. - rosuvastatin (CRESTOR) 5 mg tablet TAKE 1 TABLET BY MOUTH AT BEDTIME EVERY NIGHT - gabapentin (NEURONTIN) 300 mg capsule Take 1 capsule by mouth two times a day AND 3 capsules daily at bedtime. Do all this for 90 days. - blood sugar diagnostic (TRUE METRIX GLUCOSE TEST STRIP) test strip Use with blood glucose test once daily - lancets (TRUEPLUS LANCETS) 33 gauge Use with blood glucose test once daily - Blood-Glucose Meter (TRUE METRIX GLUCOSE METER) 1 Each once daily. - fludrocortisone (FLORINEF) 0.1 mg tablet Take 1 tablet by mouth once daily. - ergocalciferol 50,000 unit capsule (VITAMIN D2, DRISDOL) TAKE 1 CAPSULE ONE TIME WEEKLY - clonazePAM (KLONOPIN) 0.5 mg tablet Take 1 tablet by mouth as needed. For restless leg syndrome - loratadine (CLARITIN) 10 mg tablet Take 10 mg by mouth once daily. - fluticasone (FLONASE) 50 mcg/actuation nasal spray Use 2 Sprays in each nostril twice daily. - pen needle, diabetic (COMFORT EZ PEN NEEDLES) 33 gauge x 5/16 ndle To inject weekly - esomeprazole (NEXIUM) 20 mg capsule Take 1 capsule by mouth DAILY (6 AM). - MULTIVITAMIN (MULTI-DAY ORAL) Take by mouth once daily. - calcium carbonate 600 mg-cholecalciferol 200 units (CALCIUM 600 + D,3,) 600 mg(1,500mg) -200 unit tab Take 1 tablet by mouth once daily. Problem List As Of Date 11/02/2023 Noted Resolved Lesion of ulnar nerve [G56.20] 12/15/2004 11/10/2018 Pain in limb [M79.609] 12/15/2004 11/10/2018 ABNORMAL FINDINGS-BREAST [793.8] 12/17/2004 LOC OSTEOARTH NOS-HAND [M19.049] 12/29/2004 CARPAL TUNNEL SYNDROME [G56.00] 06/01/2005 Type 2 diabetes mellitus with stage 3a chronic *06/15/2007 MIXED HYPERLIPIDEMIA [E78.2] 06/15/2007 Bursitis of hip [M70.70] 04/18/2013 Vitamin D insufficiency [E55.9] 01/11/2014 Right buttock pain [M79.18] 03/21/2015 Pain in right hip [M25.551] 03/21/2015 Greater trochanteric bursitis of right hip [M70*03/21/2015 Iron deficiency anemia, unspecified [D50.9] 11/22/2018 Osteoarthritis of knee [M17.9] 12/05/2018 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] 04/13/2019 Orthostatic hypotension [I95.1] 12/24/2020 Dyspnea on exertion [R06.09] 12/24/2020 Fatigue [R53.83] 12/24/2020 Tinnitus, right ear [H93.11] 03/16/2021 Sensory hearing loss, 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] 03/16/2021 Restless legs syndrome [G25.81] 05/21/2021 Postmenopausal status [Z78.0] 05/21/2021 Mixed anxiety depressive disorder [F41.8] 05/21/2021 Diverticulitis [K57.92] 05/21/2021 Cough [R05.9] 05/21/2021 Chronic pain [G89.29] 05/21/2021 Bruises easily [R23.3] 05/21/2021 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*11/18/2021 Elevated AST (SGOT) [R74.01] 11/18/2021 Dizziness [R42] 11/18/2021 Abnormal weight gain [R63.5] 06/23/2023 Encounter Status:Closed by SHERYL GARZA on 11/02/23Central [facility] ON DEMANDon 18-35-8962Wjrpkun by an unspecified provider.[facility]age Medical CenterGlucose mean value [Mass/volume] in Blood Estimated from glycated hemoglobinon 47-27-3652Qsmuqke glucose Estimated from glycated hemoglobin (Bld) [Mass/Vol]146 mg/dLOhiohealth Grady Memorial HospitalComment on above:eAG: (Estimated average glucose) is a calculated value from HgbA1c and is physician relations representative of the average blood glucose level in the last 2-3 month period. Laboratory - Chemistry and Chemistry - challengeon 54-12-4040Nqhrqos [Mass/Vol] 4.2 g/dL3.9-4.9[facility] HospitalALP [Catalytic activity/Vol]94 U/A82-955UzihimouzOhiohealth Grady Memorial HospitalALT [Catalytic activity/Vol]42 U/LHigh 7-38[facility] HospitalAST [Catalytic activity/Vol]42 U/IIchq20-91 [facility] HospitalBilirubin [Mass/Vol]0.5 mg/dL0.2-1.3FSamaritan HospitalCalcium [Mass/Vol]9.7 mg/dL8.5-10.2FSamaritan HospitalChloride [Moles/Vol]105 mmol/Q29-643DlfyzibxzOhiohealth Grady Memorial HospitalCO2 [Moles/Vol]29 mmol/Z60-11LuzxgxsqtOhiohealth Grady Memorial HospitalCreatinine [Mass/Vol]1.14 mg/dLHigh0.58-0.96[facility] Memorial HospitalFree T4 [Mass/Vol]1.1 ng/dL0.9-1.7FSamaritan HospitalGlucose [Mass/Vol]119 mg/vBCrxs68-94WktzxdaynOhiohealth Grady Memorial HospitalComment on above:The [place] Diabetes Association (ADA) provides guidance for cutoff [...] diabetes.Reference: Standardsof Medical Care in Diabetes 2016, [place] Diabetes Association. Diabetes Care. 2016.39(Suppl 1). Potassium [Moles/Vol]4.6 mmol/L3.7-5.1FKindred Hospital Daytonodium [Moles/Vol]142 mmol/B167-496MxyrigxpzOhiohealth Grady Memorial HospitalTSH Qn4.320 m[IU]/L High0.270-4.200Ohio[facility] Memorial HospitalUrea nitrogen [Mass/Vol]18 mg/dL 7-21[facility] HospitalLaboratory - Hematology and Cell countson 97-26-5247JwL8u (Bld) [Mass fraction]6.7 %High4.3-5.6FSamaritan HospitalComment on above:[place] Diabetes Association guidelines indicate that patients with HgbA1c in the range 5.7-6.4% are at increased risk for development of diabetes, and intervention by lifestyle modification may be beneficial. HgbA1c greater or equal to 6.5% is considered diagnostic of diabetes.No Panel Informationon 61-83-1784Xlyrh Albumin/Creatinine Ratio<8 mg/g<30Ohiohealth Grady Memorial HospitalComment on above:Adult Male and Female Nephrotic Criteria:<30 mg/g is considered normal to mildly zimwlpowb83-396oj/g is considered moderately increased>300 mg/g is considered severely increasedKDIGO. (2013). KDIGO 2012 Clinical Practice Guideline for the Evaluation and Management of Chronic Kidney Disease. Official Journal of the International Society of Nephrology, 3(1), 1-150.Urine Microalbumin mg/dl<12.0 mg/LFSamaritan HospitalUrine Random Devdfncviz343.8 mg/dL20.0-300.0Ohio[facility] Grady Memorial HospitalEstimated GFR (CKD-EPI)50 mL/min/1.73m???Low>=60Ohio[facility]ady Memorial HospitalComment on above:Estimated Glomerular Filtration Rate (eGFR) is calculated using the 2020 CKD-EPI creatinine equation. This equation utilizes serum creatinine, sex, and age as parameters. The creatinine assay has traceable calibration to isotope dilution-mass spectrometry. Refer to KDIGO guidelines for clinical interpretation. In patients with unstable renal function, e.g. those with acute kidney injury, the eGFRmay not accurately reflect actual GFR.Protein [Mass/volume] in Serum or Plasmaon 50-39-4291Pnyovgo [Mass/Vol]6.9 g/dL6.3-8.0 [facility] Hospitalerum or plasma anion gap determinationon 01-33-8747Lfcoa gap [Moles/Vol]8 mmol/L8-15[facility] Alanine aminotransferase [Enzymatic activity/volume] in Serum or PlasmaOrdered By: Erich Gillis on 89-18-7535MQL [Catalytic activity/Vol]44 U/LNormal7-52 [facility] HospitalComment on above:Performed By: #### THY AB #### [facility] , #### TSH3 wRFLX, CMP #### [facility] [address] [id number] USAAlbumin [Mass/volume] in Serum or Plasma by Bromocresol green (BCG) dye binding methoOrdered By: Erich Gillis on 20-06-1944Jifnvzw BCG dye [Mass/Vol]4.4 g/dL3.5-5.7FSamaritan HospitalAlkaline phosphatase [Enzymatic activity/volume] in Serum or PlasmaOrdered By: Erich Gillis on 05-45-3824GXY [Catalytic activity/Vol]85 U/VVcebau94-175PktwbcmmcOhiohealth Grady Memorial HospitalComment on above:Performed By: #### THY AB #### [facility] , #### TSH3 wRFLX, CMP #### [facility] [address] [id number] USAAspartate aminotransferase [Enzymatic activity/volume] in Serum or PlasmaOrdered By: Erich Gillis on 56-85-0488WEO [Catalytic activity/Vol] 44 U/WMsck91-77RacwdphyfOhiohealth Grady Memorial HospitalComment on above:Performed By: #### THY AB #### [facility] , #### TSH3 wRFLX, CMP #### [facility] [address] [place] [address] USABilirubin.total [Mass/volume] in Serum or PlasmaOrdered By: Erich Kuns on 88-42-1980Dkwftckbt [Mass/Vol]0.5 mg/dLNormal0.3-1.0Ohio[facility] Memorial HospitalComment on above:Performed By: #### THY AB #### [facility] , #### TSH3 wRFLX, CMP #### [facility] [address] [place] [address] USACalcium [Mass/volume] in Serum or PlasmaOrdered By: Erich Kuns on 70-55-7409Esakmlx [Mass/Vol]9.7 mg/dLNormal8.6-10.3FSamaritan HospitalComment on above:Performed By: #### THY AB #### [facility] , #### TSH3 wRFLX, CMP #### [facility] [address] [place] [address] USACarbon dioxide, total [Moles/volume] in Serum or Plasma Ordered By: Erich Kuns on 58-86-6922VJ8 [Moles/Vol]30.5 mmol/RCtuyqt32.0-31.0 [facility] HospitalComment on above:Performed By: #### THY AB #### [facility] , #### TSH3 wRFLX, CMP #### [facility] [address] [place] [address] USAChloride [Moles/volume] in Serum or PlasmaOrdered By: Erich Kuns on 56-31-8078Doighadg [Moles/Vol]105 mmol/WOwezwi01-147JhycehkfkOhiohealth Grady Memorial HospitalComment on above:Performed By: #### THY AB #### [facility] , #### TSH3 wRFLX, CMP #### [facility] [address] [place] [address] USAComprehensive Metabolic Panelon 84-45-6454Mlntgsm [Mass/Vol]4.4 g/dLNormal3.5-5.7The [facility] Physician GroupComment on above: Performed By: #### THY AB #### [facility] , #### TSH3 wRFLX, CMP #### [facility] [address] [place] [address] USAGFR/1.73 sq M.predicted MDRD (S/P/Bld) [Vol rate/Area] 53.834 mL/min/{1.73_m2}NormalThe [facility] University Physician GroupComment on above: Performed By: #### THY AB #### [facility] , #### TSH3 wRFLX, CMP #### [facility] [address] [place] [address] USACreatinine [Mass/volume] in Serum or PlasmaOrdered By: Erich Gillis on 55-72-2673Rijzsgkpps [Mass/Vol]1.07 mg/dLNormal0.60-1.20[facility] Memorial HospitalComment on above:Performed By: #### THY AB #### [facility] , #### TSH3 wRFLX, CMP #### [facility] [address] [id number] USAGlucose [Mass/volume] in Serum or PlasmaOrdered By: Erich Gillis on 92-88-3652Lyvmokv [Mass/Vol]87 mg/lTPfvakg88-172VpkwgjdfeOhiohealth Grady Memorial HospitalComment on above:ADA recommended reference rangeRandom Glucose Reference Range is dependent on time and content of last meal. Glucose of more than 200 mg/dL in a nonstressed, ambulatory subject supports the diagnosisof Diabetes Mellitus.Result Comment: Random Glucose Reference Range is dependent on time and content of last meal. Glucose of more than 200 mg/dL in a nonstressed, ambulatory subject supports the diagnosis of Diabetes Mellitus. ADA recommended reference rangePerformed By: #### THY AB #### [facility] , #### TSH3 wRFLX, CMP #### [facility] [address] [place] [address] USANo Panel InformationOrdered By: Erich Gillis on 10-03-2023 Estimated GFR (CKD-EPI)53.834 mL/MinOhiohealth Grady Memorial HospitalPharmacy Creatinine Clearance (ChemN/[facility] HospitalQuick Strep (POC) [facility] HospitalPotassium [Moles/volume] in Serum or Plasma Ordered By: Erich Gillis on 21-26-4862Alsmypadh [Moles/Vol]4.5 mmol/LNormal3.5-5.1 [facility] HospitalComment on above:Performed By: #### THY AB #### [facility] , #### TSH3 wRFLX, CMP #### [facility] [address] [place] [address] USAProtein [Mass/volume] in Serum or PlasmaOrdered By: Erich Gillis on 79-50-4339Cqhlkiy [Mass/Vol]6.7 g/dLNormal6.4-8.9[facility] HospitalComment on above:Performed By: #### THY AB #### [facility] , #### TSH3 wRFLX, CMP #### [facility] [address] [place] [address] USASerum globulin measurement by calculation (mass/volume) Ordered By: Erich Gillis on 65-94-2866Msumfaen (S) [Mass/Vol]2.3 g/dLNormal [facility] HospitalComment on above:Performed By: #### THY AB #### [facility] , #### TSH3 wRFLX, CMP #### [facility] [address] [place] [address] USASerum or plasma albumin/globulin mass ratioOrdered By: Erich Gillis on 96-05-0534Jljsuxs/Globulin [Mass ratio]1.9 {ratio}NormalOhiohealth Grady Memorial HospitalComment on above:Performed By: #### THY AB #### [facility] , #### TSH3 wRFLX, CMP #### [facility] [address] [place] [address] USASerum or plasma anion gap determinationOrdered By: Erich Gillis on 86-25-7455Iengi gap [Moles/Vol]10.0 mmol/LNormal6.0-15.0[facility] HospitalComment on above:Performed By: #### THY AB #### [facility] , #### TSH3 Marcus, CMP #### [facility] [address] [place] [address] USASerum or plasma thyroglobulin antibody assay (units/volume)Ordered By: Erich Gillis on 41-46-5461Jnpzuyuuxeito Ab Qn[IU]/mL 0.0-0.9[facility] HospitalComment on above:Thyroglobulin Antibody measured by Ana CoulterMethodologyIt should be noted that the presence of thyroglobulinantibodies may not be pathogenic nor diagnostic, especiallyat very low levels. The assay chainstitch felled seam operator has found thatfour percent of individuals without evidence of thyroiddisease or autoimmunity will have positive TgAb levels upto 4 IU/mL.Performed at: [facility] [employer] [id number] Director: Campbell Abrams PhD, Phone: [phone] or plasma thyroperoxidase antibody assay (units/volume)Ordered By: Erich Gillis on 32-70-8535KOU Ab Qn[IU]/mL0-34[facility] Hospitalodium [Moles/volume] in Serum or PlasmaOrdered By: Erich Gillis on 57-05-2613Fdazyr [Moles/Vol]141 mmol/CIdrdns710-583VzpcirsikOhiohealth Grady Memorial HospitalComment on above:Performed By: #### THY AB #### [facility] , #### TSH3 Marcus, CMP #### [facility] [address] [place] [address] USAThyroid Antibodies TPO+Tg Abon 53-47-6706Sevgtjtongysmmggk Ab<1.7Qprpkb0.0-0.9The [facility] Physician GroupComment on above:Result Comment: Thyroglobulin Antibody measured by Ana Esme Methodology It should be noted that the presence of thyroglobulin antibodies may not be pathogenic nor diagnostic, especially at very low levels. The assay chainstitch felled seam operator has found that four percent of individuals without evidence of thyroid disease or autoimmunity will have positive TgAb levels up to 4 IU/mL. Performed at: [address] [id number] Die Keeper: Campbell Abrams PhD, Phone: [phone] PERFORMED BY: [place] [address] PATHOLOGIST SATELLITE MANAGER ALINA JOHNSON M.D.Performed By: #### THY AB #### [facility] , #### TSH3 wRFLX, CMP #### [facility] [address] [place] [address] USAThyroid Peroxidase Antibodies<0Fkhbxu4-65Fbt [facility] Physician GroupComment on above:Performed By: #### THY AB #### [facility] , #### TSH3 wRFLX, CMP #### [facility] [address] [place] [address] USAThyroid Stim Hormone w/Rflxon 26-82-7601Bxmvjfo Stim Hormone w/Rflx3.05 u[iU]/mLNormal0.45-5.33The [facility] Physician GroupComment on above:Result Comment: PERFORMED BY: [place] [address] PATHOLOGIST SATELLITE MANAGER ALINA JOHNSON M.D.Performed By: #### THY AB #### [facility] , #### TSH3 wRFLX, CMP #### [facility] [address] [place] [address] USAThyrotropin [Units/volume] in Serum or PlasmaOrdered By: Erich Gillis on 12-81-8306LHB Qn3.05 m[IU]/L0.45-5.33[facility] Memorial HospitalUrea nitrogen [Mass/volume] in Serum or PlasmaOrdered By: Erich Gillis on 88-01-0356Oexu nitrogen [Mass/Vol]17 mg/dLNormal7-25[facility] Memorial HospitalComment on above:Performed By: #### THY AB #### [facility] , #### TSH3 wRFLX, CMP #### [facility] [address] [place] [address] USACHEMISTRYOrdered By: Lab ROPUser on 75-96-0055Nvdgpfj [Mass/Vol]96 mg/uNPzikxy41 - 99 mg/dLDEACONESS H[facility] [place] POC SubsectionPOC Device SN [id number] 1Invalid Interpretation CodeDEACONESS HOSPITAL – [place] POC SubsectionPOC User [id number] 1Invalid Interpretation CodeDEACONESS HOSPITAL [facility] [place] POC SubsectionPOC UsernameGIES, MELINDAInvalid Interpretation CodeDEACONESS HOSPITAL – [place] POC SubsectionConsent for Treatmenton 02-24-7832Rtzznqn for [id number]#1.00TIFFOhioHealth Nelsonville Health CenterMain OR Preoperative Recordon 33-40-8154Ovtc OR Preoperative RecordHolding Area Document Type FTPM Summary Primary Physician: Anirudh Arroyo DO Finalized Date/Time: 09/19/23 12:46:31 Pt. Name: HOLA DOUGLAS/Sex: 1945 Female Med Rec #: [id number] Physician: Anirudh Arroyo DO Financial #: [id number] Pt. Type: P Room/Bed: / Admit/Disch: 09/19/23 12:18:44 - Institution: Case Times Holding FTPM Pre-Care Text: Verifies consent for planned procedure, identifies individual values and wishes concerning care, includes family members in perioperative teaching Secures patient's records' belongings, and valuables, maintains patient's dignity and privacy, and maintains patient confidentiality Entry 1 In Holding 09/19/23 12:39:00 Outcomes Met? Yes Last Modified By: Charity Andrews RN 09/19/23 12:39:32 Post-Care Text: The patient participates in decisions affecting his or her perioperative plan of care The patient'sright to privacy is maintained Surgery Checklist FTPM Entry 1 Patient Birthday, ID Band Procedure History and Physical, Identification: Check, Patient Verification: Surgical Consent, With Participation Patient NPO after Midnight: No Date/Time: 09/19/23 08:00:00 Personal Items: Cataract Lens Implant, Personal Items ring Jewelry Comment: Complaints of Pain: Yes Pain Comment: 12/19 right low back Operative Site Yes Marked By: cruz Marking: Location: right Availability Equipment, X-Ray Verified: Does Patient Smoke No Patient states Yes Comment - Adult sravan postop adult Supervision supervision available Case Cancelled in No Holding Area see comments below for reason Last Modified By: Charity Andrews RN 09/19/23 12:46:26 General Comments: toast Finalized By: Charity Andrews RN Document Signatures Signed By: Charity Andrews RN 09/19/23 12:46NoPremier Health Miami Valley HospitalPatient Correspondenceon 48-82-2758Swnvqzw Correspondence [id number]#1.00TIFSelect Medical Specialty Hospital - ColumbusEMG(NEURO/NI)on 33-88-8002Smxrsnl can be seen in attached scanned documents. If you are a patient reviewing this test result, call the doctor who ordered the test with any questions. [facility]OLOGICAL INSTITUTEWilson HealthConsent for Treatmenton 65-42-7725Rytmhaw for [id number]#1.00TIFSelect Medical Specialty Hospital - ColumbusConsultation Noteon 16-54-8214Nohdkgwrsggv NotePatient is presenting with complaints of 4-10 pain at present in her back and buttock as well as right lateral thigh to the level of the knee. This pain can be a 9 out of 10 when exacerbated such as standing walking twisting turning, bending and transitioning from seated to a standing position. When discussing this pain further she describes a sharp/stabbing sensation that worsens throughout the day and has not been relieved by anything she has tried thus far. This is exactly the same pain thatshe has had in the past with right-sided sacroiliitis, she feels that her sacroiliac joint is flared again. Additionally, she has pain over the lateral aspect of her hip/thigh area and has a point ofspecific tenderness with this. We also discussed her lumbar spondyloarthropathy however this is not acutely flared at this time. Will plan to work on her trochanteric region as well as her sacroiliacregion on the right. ERMELINDA Score: 36% PHQ-2: 2 Patient denies any symptoms of progressively worsening upper/lower extremity weakness, progressively worsening gait abnormality, new onset bowel/bladder incontinence/ urinary retention, or saddle anesthesia. No new or worsening symptoms of fever, chills, night sweats. 14 Point Review of systems negative unless otherwise noted. General: No acute distress. Patient appears well-nourished. HEENT: Head is normocephalic and external ears are normal in appearance. Cardiovascular: No signs of poor perfusion and no peripheral edema Pulmonary: Nonlabored breathing, symmetric chest movement. GI: Abdomen nondistended Integumentary: No lesions Musculoskeletal: Tender to palpation lumbar paraspinal musculature and over the right sacroiliac joint as well as over the right trochanteric bursa. Neurologic: Alert, oriented x3. 5/5 strength grossly in the bilateral lower extremities. Sensation intact to light touch in the bilateral lower extremities. Special Testing: Negative Dwight sign bilaterally. Positive LUIS F and Gaenslen's reproducing sacroiliac joint pain, positive lumbosacral spring and compression test reproducing sacroiliac joint pain, thigh thrust and sacral thrust also reproduced sacroiliac joint pain. Laterality of positive SI Joint Testing: Right. 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 -Sacroiliitis, flared on the right -Right trochanteric bursitis Plan: -We lengthy discussion about her current symptoms we discussed performing a right-sided sacroiliac joint injection under fluoroscopic guidance that she has had these in the past with excellent relief, we also discussed starting physician directed exercises targeting her right trochanteric bursitis,if this pain persist despite exercise and therapy we can consider an in office injection -Plan to follow-up 1 month postinjection or sooner if any issues arise Patient was counseled on the above diagnosis and treatment, all questions were answered and patientagrees to adhere to the plan above. Risk and benefits of appropriate procedures and medications were reviewed as well with patient, who voiced understanding and agreeance. Patient was counseled on appropriate use of opioids if prescribed or renewed today and naloxone was offered to patient if opioids were prescribed or maintained at this visit. PHQ-2 scoring reviewed with patient and discussed seeking treatment for depression or mood disorder as appropriate. Patient was counseled on smoking cessation and/or continuing to abstain from nicotine/tobacco products as appropriate based on history; as smoking/nicotine can contribute to increased pain overall and decreased wound healing. Patient counseled on maintaining a healthy BMI as part of the total treatment of their pain and to reduce stress/strain on joints. Patient invited to return or call with any questions or concerns that arise.[facility] Health CenterComment on above:Result Comment: Electronically Signed By: Anirudh Arroyo DO.br\Date and Time Signed: 08/16/23 10:53 EDTOffice/Clinic Note-Physicianon 62-40-7339Ejouyl/Clinic Note-Physician [id number]#1.00TIFSelect Medical Specialty Hospital - ColumbusPatient Correspondenceon 94-43-4380Dxnkjxn Correspondence [id number]#1.00TIFSelect Medical Specialty Hospital - ColumbusPatient History Officeon 93-56-6050Oqmcxut History Office [id number]#1.00TIFSelect Medical Specialty Hospital - ColumbusPatient History [id number]#1.00TIFF [facility] CenterXR Pelvis 1 or 2 Viewson 69-70-3462BR Pelvis 1 or 2 ViewsExam Date/Time: 07/30/2023 09:22 EDT Reason for Exam: [id number] Report IMPRESSION: NO ACUTE OSSEOUS ABNORMALITY OR SIGNIFICANT INTERVAL CHANGE. EXAM: XR Pelvis 1 or 2 Views HISTORY: Right hip pain COMPARISON: 07/02/2021 radiograph TECHNIQUE: Single AP film of the pelvis obtained. FINDINGS: No acute displaced pelvic fracture. Sacroiliac joints are within normal limits. Joint spaces of both hips are maintained. Degenerative changes of the lower lumbar spine. Pelvic phleboliths are noted. 3 cm area of increased density within the left aspect of the pelvis is most likely a calcified fibroid and is unchanged from prior examination. Ordering Provider: Kristie Saavedra FINAL REPORT Dictated: 08/03/2023 11:56 am Carl Foley DO Signed (Electronic Signature): 08/03/2023 11:56 am Signed by: Carl Foley DO Transcribed by: SAMUEL Technologist: MYESHA Technical Comments Radiation Dose: Ka,r in mGy = na DAP = naNormalFisher Johns Hopkins HospitalConsent for Treatmenton 07-30-2023 Consent for [id number]#1.00TIFAkron Children's HospitalPhysician Orderon 29-57-1154Euprvnfpi Order [id number]#1.00TIFSelect Medical Specialty Hospital - ColumbusOrders Officeon 25-85-8819Yezudj Office [id number]#1.00[facility] Health MiamisburgConsent for Procedure/Surgeryon 67-09-4542Nwzxrll for Procedure/Surgery [id number]#1.00TIFSelect Medical Specialty Hospital - ColumbusAmbulatory Visit Summaryon 89-48-1540Dztfnyjqou Visit Summary HOLA DOUGLAS :1945 Visit Date:07/26/2023 Ambulatory Visit Instructions Your Diagnosis Postinfective urethral stricture in female Hesitancy Mixed incontinence Your Care Team Attending Physician - HIRO BRICENO, Ryan Holland Primary Care Physician - ERICH GILLIS DO This Is Your Medications List Contact prescribing physician if questions or concerns calcium carbonate (calcium (as carbonate) 600 mg oral tablet) calcium-vitamin D (Calcium 600+D) citalopram (Celexa) clonazepam (ClonazePAM 0.5 mg Tab) ergocalciferol (Vitamin D) fludrocortisone (fludrocortisone 0.1 mg Tab) gabapentin loratadine (Claritin) multivitamin with minerals (Multivitamins and Minerals) rosuvastatin (rosuvastatin 5 mg Tab) semaglutide (Ozempic 2 mg/1.5 mL (0.25 mg or 0.5 mg dose) subcutaneous solution) semaglutide (Ozempic 2 mg/3 mL (0.25 mg or 0.5 mg dose) subcutaneous solution) Procedures Performed Injection of sacroiliac joint using fluoroscopic guidance (06/08/2023), Radiofrequency ablation of nerve root of lumbar spine using fluoroscopic guidance (04/20/2023), Injection into facet joint of lumbar spine using fluoroscopic guidance (02/28/2023), Left wrist (11/2022), Injection of sacroiliac joint using fluoroscopic guidance (11/08/2022), Trigger point (08/12/2022), Epidural injection of lumbar spine using fluoroscopic guidance (12/07/2021), Left hip (06/15/2021), UD - Urethral dilatation(03/27/2020), UD - Urethral dilatation (09/01/2018), UD - Urethral dilatation (11/28/2017), Cystoscope (02/07/2017), Carpal tunnel, Closed fracture of left foot, Injection of facet joint using fluoroscopic guidance. Discharge Vitals Temperature (Temporal Artery) 37 ?C Heart Rate (Peripheral) 70 Respiratory Rate 16 Blood Pressure 110/69 Height 172 cm Height 68 in Weight 78 kg Weight 171.6 lb BMI 26.37 What to do next Scheduled Follow-Up Appointments Tuesday 1:00 PM EDT With: HIRO BRICENO, Ryan Holland [facility] HospitalBasophil percentageon 66-89-1161Odyyetea wyizeukfjj25 ug/dL 80-155Ohiohealth Grady Memorial HospitalComment on above:This test was developed and its performance characteristics determined by [facility] [place] ([facility]). It has not been cleared or approved by the FDA. -[facility] is regulated under CLIA as qualified to perform high-complexity testing. Thistest is used for clinical purposes. It should not be regarded as investigational or for research.C-REACTIVE PROTEINon 70-45-7567TMB [Mass/Vol]<0.9 mg/dLCleveland ClinicComprehensive metabolic 2000 panelon 19-21-8053Foklyrz [Mass/Vol]4.2 g/dL3.9 - 4.9 g/dLChesaning ClinicALP [Catalytic activity/Vol]90 U/L34 - 123 U/LCleveland ClinicALT [Catalytic activity/Vol]44 U/LHigh7 - 38 U/LCleveland ClinicAnion gap [Moles/Vol]16 mmol/L9 - 18 mmol/LCleveland ClinicAST [Catalytic activity/Vol]52 U/LHigh13 - 35 U/L [facility] HealthBilirubin [Mass/Vol]0.2 mg/dL0.2 - 1.3 mg/dLWilson Health Calcium [Mass/Vol]9.8 mg/dL8.5 - 10.2 mg/dLChesaning ClinicChloride [Moles/Vol] 107 mmol/LHigh97 - 105 mmol/LCleveland ClinicCO2 [Moles/Vol]24 mmol/L22 - 30 mmol/LCleveland ClinicCreatinine [Mass/Vol]1.05 mg/dLHigh0.58 - 0.96 mg/dL [facility] HealthEstimated Glomerular Filtration Rate55 mL/min/1.73mLow>=60 mL/min/1.73mCleveland ClinicGlucose [Mass/Vol]87 mg/dL74 - 99 mg/dLWilson HealthPotassium [Moles/Vol]4.0 mmol/L3.7 - 5.1 mmol/LCleveland ClinicProtein [Mass/Vol]6.8 g/dL6.3 - 8.0 g/dLChesaning ClinicSodium [Moles/Vol]147 mmol/LHigh 136 - 144 mmol/LCleveland ClinicUrea nitrogen [Mass/Vol]15 mg/dL7 - 21 mg/dL [facility] HealthESR Westergren method (Bld) [Velocity]on 44-97-8918NYI (Bld) [Velocity]12 mm/h0 - 20 mm/hrWilson HealthImmunoglobulin light chains.kappa.free [Mass/volume] in Serumon 55-61-1828Zesryljudooizl light chains.kappa.free (S) [Mass/Vol]23.6 mg/L3.3-19.4FSamaritan HospitalComment on above:Rarely, increased serum free light chains levels may not be detected or accurately quantified due to prozone phenomenon or in high viscosity samples using this immunoturbidimetric assay. Correlation with other laboratory results and clinical findings is recommended. The Whatley Free Light Chain was performed using the Binding Site Optilite immunoturbidimetric method. Result obtained with different assay methods or kits cannot be used interchangeably.Immunoglobulin light chains.kappa.free/Immunoglobulin light chains.lambda.free [Lanette 99-76-7922Uerwywyffrvblr light chains.kappa.free/Immunoglobulin light chains.lambda.free (S) [Mass ratio]1.26 0.26-1.65Ohio[facility] Grady Memorial HospitalImmunoglobulin light chains.lambda.free [Mass/volume] in Serum or Plasmaon 33-52-0595Dqjhtufwnpzivg light chains.lambda.free [Mass/Vol]18.8 mg/L5.7-26.3FSamaritan HospitalComment on above:Rarely, increased serum free light chains levels may not be detected or accurately quantified due to prozone phenomenon or in high viscosity samples using this immunoturbidimetric assay. Correlation with other laboratory results and clinical findings is recommended. The Lambda Free Light Chain was performed using the Binding Site Optilite immunoturbidimetric method. Result obtained with differentassay methods or kits cannot be used interchangeably.Laboratory - Chemistry and Chemistry - challengeon 07-26-2023 Albumin [Mass/Vol]4.2 g/dL3.9-4.9Ohio[facility] Memorial HospitalALP [Catalytic activity/Vol]90 U/X92-371HfjjaoxxjOhiohealth Grady Memorial HospitalALT [Catalytic activity/Vol]44 U/L7-38[facility] Memorial HospitalAST [Catalytic activity/Vol]52 U/B37-83EybxxgdxdOhiohealth Grady Memorial HospitalBilirubin [Mass/Vol]0.2 mg/dL0.2-1.3FSamaritan HospitalCalcium [Mass/Vol]9.8 mg/dL 8.5-10.2FSamaritan HospitalChloride [Moles/Vol]107 mmol/L97-105 [facility] HospitalCO2 [Moles/Vol]24 mmol/Y05-43IxupokjvqOhiohealth Grady Memorial HospitalCobalamin (Vitamin B12) [Mass/Vol]818 pg/wU565-6233NvusferatOhiohealth Grady Memorial HospitalCreatinine [Mass/Vol]1.05 mg/dL0.58-0.96Ohio[facility] Memorial HospitalGlucose [Mass/Vol]87 mg/vG89-58DpmwajuhnOhiohealth Grady Memorial HospitalComment on above:The [place] Diabetes Association (ADA) provides guidance for cutoff [...] diabetes.Reference: Standardsof Medical Care in Diabetes 2016, [place] [employer] Association. Diabetes Care. 2016.39(Suppl 1).Potassium [Moles/Vol]4.0 mmol/L 3.7-5.1FKindred Hospital Daytonodium [Moles/Vol]147 mmol/K892-841 [facility] HospitalTSH Qn6.420 m[IU]/L0.270-4.200Ohio[facility] Memorial HospitalUrea nitrogen [Mass/Vol]15 mg/dL7-21[facility] Memorial HospitalLaboratory - Hematology and Cell countson 63-33-0157JGM (Bld) [Velocity]12 mm/h0-20[facility] HospitalNo Panel Informationon 26-80-4038XDpP Ganglionic Neuronal AntibodySEE NOTEOhiohealth Grady Memorial HospitalComment on above:NEGATIVEThis test did not detect abnormal levels of anti- ganglionicneuronal acetylcholine receptor antibodies (alpha 3AChR).Alpha- Tocopherol Level (Vitamin E)9.9 mg/L6.0-23.0[facility] Beta and Gamma Tocopherol2.1 mg/L0.3-3.2FSamaritan HospitalComment on above:This test was developed and its performance characteristics determined by [facility] [place] ([facility]). It has not been cleared or approved by the FDA. [facility] is regulated under CLIA as qualified to perform high-complexity testing. Thistest is used for clinical purposes. It should not be regarded as investigational or for research.C-Reactive Protein, Quantitative<0.3 mg/dL<0.9Ohio[facility] Grady Memorial HospitalEstimated GFR (CKD-EPI)55 mL/min/1.73m???>=60Ohio[facility] Memorial HospitalComment on above:Estimated Glomerular Filtration Rate (eGFR) is calculated using the 2020 CKD-EPI creatinine equation. This equation utilizes serum creatinine, sex, and age as parameters. The creatinine assay has traceable calibration to isotope dilution-mass spectrometry. Refer to KDIGO guidelines for clinical interpretation. In patients with unstable renal function, e.g. those with acute kidney injury, the eGFRmay not accurately reflect actual GFR. Leuk/Lymph Sign Pathologist (Misc)Reviewed by Carol Ann Gama MDOhiohealth Grady Memorial HospitalMisc Immunology Technical ResultSEE Green Cross HospitalComment on above: Interpretive Result Table INTERPRETIVE RESULT: NegativeTEST: anti-alpha 3AChRTECHNICAL RESULT: No abnormal levels of antibodies detected Miscellaneous Test 2SEE [facility] Cross HospitalComment on above:1. DEWEY Jarquin et al. (2006) Semin Oncol 33: 270-98. (PMID:95033221)2. Odalys, SVETLANA, et al. (2011)Eur J Neurol 18: 19-e3.(PMID: 69871778)3. Cee Sarabia et al. (2012) J Neurol Neurosurg Ilqhfbckzm43: 638-45. (PMID: 62406459)4. MR Fariba, et al. (2010) Oncologist 15: 603-17.(PMID: 75303303)5. Felecia Butler et al. (2008) Lancet Neurol 7: 327-40. (PMID:38160734)6. Felecia Delacruz et al. (2007) Orphanet J Rare Dis 2: 22.(PMID: 81309069)7. Lisa Whiteside et al. (2000) N Engl J Med 343: 847-55.(PMID: 70862001) This test was developed and its analytical performancecharacteristics have been determined by[facility].It has not been cleared or approved by the U.S. Food andDrug Administration. This assay has been validated pursuantto the CLIA regulations and is used for clinical purposes. Laboratory oversight provided by Rachel Saini M.D.,Ph.D., CLIA license n[place], [facility] (CLIA#[id number]) Testing performed at:[facility] [address] [place] [id number] Test Comment SEE Green Cross HospitalComment on above:Comments: This result does not exclude a diagnosis of anautoimmune etiology for the neurological sym ptoms associatedwith paraneoplastic disorder. Recommendations: Health care providers, please contact [facility] Client Services Department [phone] if you wish to speak with a clinicalconsultant regarding this test result. Other testing available: [facility] recommendsadditional testing, if not already performed. [employer] currently offers the following antibodytests:anti-Hu, anti-Yo, anti-Zic4, anti-CV2, anti-Ma1, anti-Ta,anti-Ri, anti-Recoverin, anti-VGCC, anti-VGKC,anti-Amphiphysin, anti- NMDA, anti-GAD65, anti-LGI1, andanti-CASPR2. Please contact the [facility] ClientServices Department or visit [facility] forinformation regarding additional testing that may beappropriate based on this individual's clinicalpresentation. Background information: Paraneoplastic neurologicalsyndromes or disorders (PNS or PND) are rare immune-mediatedd isorders resulting from the damage to the nervous systemdue to remote effects of a tumor (1, 2). PND of the centralnervous system may occur in association with eitheronconeural antibodies directed against intracellularantigens, or antibodies targeted against neuronal surfaceantigens (1, 3).Clinicalfeatures of PND may include ataxia, limbic orbrainstem encephalitis, sensory neuropathy, subacutecerebellar degeneration, dizziness, nystagmus, dysphagia,dysarthria, loss of muscle tone, loss of memory, visionproblems, sleep disturbances, dementia, seizures, and/orsensory loss in the limbs (4). In approximately 60% of PNDcases, neuropathic symptoms precede a tumor diagnosis (1).Some of the tumors related to PND include small cell lungcancer, ovarian teratoma and carcinoma, thymoma, lymphoma,breast cancer, and/or testicular cancer (2). PND may alsoinclude Lambert-Eaton myasthenic syndrome (LEMS), stiffperson syndrome, encephalomyelitis, myasthenia gravis,neuromyotonia, and opsoclonus-myoclonus (4). However, thesedisorders can also occur in individuals without underlyingcancer.Anti-alpha 3AChR antibodies have been strongly associatedwith acute and subacute (< 6 months) pandysautonomia,typically presenting with orthostatic hypotension,gastrointestinal dysmotility and other autonomic im pairment(5, 6, 7). A positive G-AChR antibody test indicates thatthe autonomic deficits may be responsive to immunomodulatorytherapy. Although not highly predictive of malignancy,Anti-alpha 3AChR antibodies may be found in patients withunderlying small-cell lung cancer, thymoma, or othercancers. Since neurological symptoms precede the detectionof an occult malignancy in two thirds of cases, patientmonitoring is recommended, and a search for occult cancershould be considered.Reference Lab Test NameSEE [facility] Cross HospitalComment on above:Detection of antibodies was performed by Radioimmunoassay(CHEN) methodology. Limitations of analysis: Reagent effectiveness may affectthe signal intensity of the response. Although rare, falsepositiveor false negative results may occur. All resultsshould be interpreted in the context of clinical findings,relevant history, and other laboratory data.Serum ImmunofixationNo M protein is identified.No M protein is identified.Ohio[facility] Grady Memorial HospitalPatient Educationon 07-26-2023 Patient EducationUrology Urethral Dilation Urethral dilation is a procedure to stretch open (dilate) the urethra. The urethra is the tube thatdrains urine from the bladder out of the body. In women, the urethra opens above the vaginal opening. In men, the urethra opens at the tip of the penis. Urethral dilation is usually done to treat narrowing of the urethra (urethral stricture), which can make it difficult to pass urine. Urethral dilation widens the urethra so that you can pass urine normally. Urethral dilation is done through the urethral opening. There are no incisions made during the procedure. Tell a health care provider about: ? Any allergies you have. ? All medicines you are taking, including vitamins, herbs, eye drops, creams, and kszd-oxq-bpnkzaf medicines. ? Any problems you or family members have had with anesthetic medicines. ? Any blood disorders you have. ? Any surgeries you have had. ? Any medical conditions you have. ? Whether you are or may be . What are the risks? Generally, this is a safe procedure. However, problems may occur, including: ? Bleeding. ? Infection. ? A return of urethral stricture, which requires repeating the dilation procedure. ? Damage to the urethra, which may require reconstructive surgery. ? Allergic reactions to medicines. What happens before the procedure? Medicines Ask your health care provider about: ? Changing or stopping your regular medicines. This is especially important if you are taking diabetes medicines or blood thinners. ? Taking medicines such as aspirin and ibuprofen. These medicines can thin your blood. Do not take these medicines unless your health care provider tells you to take them. ? Taking hcsc-oxd-izjiaqi medicines, vitamins, herbs, and supplements. General instructions ? Follow instructions from your health care provider about eating or drinking restrictions. ? Plan to have someone take you home from the hospital or clinic. ? If you will be going home right after the procedure, plan to have someone with you for 24 hours. ? Ask your health care provider what steps will be taken to help prevent infection. These may include: ? Washing skin with a germ-killing soap. ? Taking antibiotic medicine. What happens during the procedure? ? An IV may be inserted into one of your veins. ? You will be given one or more of the following medicines: ? A local anesthetic to numb your urethral opening. This will be applied as a gel that will also lubricate the urethral opening. ? A sedative to help you relax. ? A thin tube with a light and camera on the end (cystoscope) will be inserted into your urethra. ? Your urethra will be rinsed (irrigated) with a germ-free (sterile) water solution. ? Narrow parts of your urethra will be stretched open using a dilator tool. Your surgeon will startwith a very thin dilator, then use wider dilators as needed. ? A thin tube with an inflatable balloon on the tip may be inserted into your urethra. The balloon may be inflated to help stretch your urethra open. ? Your urethra will be irrigated. The procedure may vary among health care providers and hospitals. What can I expect after the procedure? ? After the procedure, it is common to have: ? Burning pain when urinating. ? Blood in your urine. ? A need to urinate frequently. ? You will be asked to urinate before you leave the hospital or clinic. ? Your urine flow should improve within a few days. Follow these instructions at home: Medicines ? Take aauw-lfc-thpriuo and prescription medicines only as told by your health care provider. ? If you were prescribed an antibiotic medicine, take it as told by your health care provider. Do not stop taking the antibiotic even if you start to feel better. ? Ask your health care provider if the medicine prescribed to you: ? Requires you to avoid driving or using heavy machinery. ? Can cause constipation. You may need to take these actions to prevent or treat constipation: ? Take tdmi-hud-rdonjzm or prescription medicines. ? Eat foods that are high in fiber, such as beans, whole grains, and fresh fruits and vegetables. ? Limit foods that are high in fat and processed sugars, such as fried or sweet foods. General instructions ? Do not drive for 24 hours if you were given a sedative during your procedure. ? If you were sent home with a small, lubricated tube (catheter) to help keep your urethra open, follow your health care provider's instructions about how and when to use it. ? Drink enough fluid to keep your urine pale yellow. ? Return to your normal activities as told by your health care provider. Ask your health care provider what activities are safe for you. ? Keep all follow-up visits as told by your health care provider. This is important. Contact a health care provider if: ? Your urine is cloudy and smells bad. ? You develop new bleeding when you urinate. ? You pa (more content not included)...NormalMount St. Mary HospitalProtein [Mass/volume] in Serum or Plasmaon 74-44-6531Bvzzihh [Mass/Vol]6.8 g/dL6.3-8.0 [facility] Hospitalerum or plasma anion gap determinationon 47-43-2609Xfpbz gap [Moles/Vol]16 mmol/L9-18FSamaritan Hospital THYROID STIMULATING HORMONEon 36-28-5896PJZ Qn6.420 m[IU]/LHigh0.270 - 4.200 mIU/LCleveland ClinicUrology Office/Clinic Noteon 00-80-1147Esrrfxb Office/Clinic NoteChief Complaint Pt is here for 6 month f/u HPI Staff Pt here for 6 mos f/u. ??IO UD?? Dysuria: denies Incomplete bladder emptying: yes Hematuria: denies Frequency: every hour Urgency: mild Nocturia: 0-3x a night Stream: weaker stream, start/stop, yes hesitation Leaking: denies Post void dripping: mild Wearing pads/ Depends: panty liner underwear Urge incontinence: denies Stress incontinence: mild cough sneeze Incontinence without Sensory Awareness: denies Abdominal pain: denies Flank pain: denies Sexual complaints: _ History of Present Illness Tests reviewed: none I have reviewed the previous health record information and history for this patient from Dr. Live. I have reviewed and verified the staff HPI to be accurate for this encounter. Review of Systems PHQ Score Initial Depression Screen Score: 0 SCORE ROS - Provider Constitutional: denies weight loss, denies hot flashes. Eyes: denies eye problems. Gastrointestinal: denies nausea, denies vomiting. Cardiovascular: denies chest pain or angina. Integumentary: no dryness Musculoskeletal: denies musculoskeletal symptoms. ENMT: denies otolaryngeal symptoms. Respiratory: no shortness of breath. Heme/Lymph: denies easy bleeding tendency, denies easy bruising tendency. Psychiatric: no confusion, no anxiety. Genitourinary: See HPI. Physical Exam Vitals & Measurements T: 37 ?C(Temporal Artery) HR: 70(Peripheral) RR: 16 BP: 110/69 HT: 68 in HT: 172 cm WT: 78 kg WT: 171.6 lb BMI: 26.37 General Appearance: alert , no acute distress, well nourished, well developed female. Procedure Operative Information Anesthesia Type: Local Procedure: Local Urethral Dilation Complications: None Surgical risks, benefits, details of the procedure have been explained to the patient. Full informed consent has been obtained. Intraoperative Information Prepped: Patient is brought back to the endoscopy suite. Patient is placed in modified dorso/lithotomy position. Patient prepped in the usual fashion with Betadine solution. 2% Xylocaine Jelly is placed per Urethra. The Urethra is: Tight The Urethra was dilated to: 18 to 30 Gibraltarian with sounds. Specimens Removed: None Postoperative Information Patient is discharged home. Follow up arranged. Assessment/Plan 1. Postinfective urethral stricture in female (N35.12: Postinfective urethral stricture, not elsewhere classified, female) S/p UD 09/01/18 S/p UD 03/27/20 S/p UD 01/12/23 Reports weaker stream and increased hesitation in starting stream. Pt had IO UD today without complications. Dilated from 18 to 30 Fr. Pt knows stricture can return and a repeat dilation may be indicated. -Cont sx monitoring -F/u in 6 mos for IO UD 2. Hesitancy (R39.11: Hesitancy of micturition) See #1 . 3. Mixed incontinence (N39.46: Mixed incontinence) Denies leakage at this time. Mild CRISTI. Not bothersome enough to warrant treatment. Overall this patient has had progressive increase in bladder outlet obstructive symptomatology and a bit of urinary incontinence. She tolerates urethral dilatation quite well up to 30 Gibraltarian. She will monitor the urinary flow after UDT today. Tentative plan for follow-up in 6 months with reconsideration of repeat UDT. She agrees with the plan Portions of this record may have been created with voice recognition artificial intelligence software, specifically [employer], [employer] and or [employer]ient Experience. Substitutions may have occurred due to the inherent limitations of voice recognition and artificial intelligence software. Follow-up With When Contact Information Ryan LIVE MD, URL [address] [facility] [address] [place] [address]- Additional Instructions: 6 mos for IO UD Patient Education Urethral Dilation I, Consuelo Rivera, personally scribed for Dr. Live on 07/26/2023 09:19:47. . Documentation recorded by the Consuelo cain acurately reflects the services(s) I performed anddecisions made by me. Authenticated by Dr. Live on 07/26/2023 09:23:51. Problem List/Past Medical History Ongoing At risk for falls Hesitancy Mixed incontinence Nocturia Postinfective urethral stricture in female Urgency of urination Weak urine stream Historical Colonoscopy Hysterectomy Lumpectomy of breast Procedure/Surgical History Injection of sacroiliac joint using fluoroscopic guidance (06/08/2023), Radiofrequency ablation of nerve root of lumbar spine using fluoroscopic guidance (04/20/2023), Injection into facet joint of lumbar spine using fluoroscopic guidance (02/28/2023), Left wrist (11/2022), Injection of sacroiliac joint using fluoroscopic guidance (11/08/2022), Trigger point (08/12/2022), Epidural injection of lumbar spine using fluoroscopic guidance (12/07/2021), Left hip (06/15/2021), UD - Urethral dilatation(03/27/2020), UD - Urethral dilatation (09/01/2018 (more content not included)...[facility] Nelsonville Health CenterComment on above:Result Comment: Electronically Signed By: Ryan LIVE MD\.br\Date and Time Signed: 07/26/23 09:24 EDT\.br\Electronically Co-Signed By: Consuelo Rivera\.br\Date and Time Co-Signed: 07/26/23 09:20 EDT VITAMIN B12on 24-50-5838Lpswingdg (Vitamin B12) [Mass/Vol]818 pg/mL232 - 1,245 pg/mLCleveland ClinicUS venous duplex LE RTon 02-43-9666DS venous duplex LE RT [facility] [place] [address] Ultrasound Report Signed Patient: Hola Douglas MR#: [id number] [birth year] : 1945 Acct:[id number] Age/Sex: 78 / F ADM Date: 06/27/23 Loc: Room: Type: [facility] Attending Dr: Cheri Hansen TON [employer]LINDER INSPECTOR-C Ordering Provider: Cheri Hansen APRN Date of Service: 06/27/23 US/US venous duplex LE RT: I83.813 - Varicose veins of bilateral lower extremities w... Copies to: Cheri Hansen APRN RIGHT LOWER EXTREMITY VENOUS DUPLEX INDICATION: Symptomatic varicose veins. Unilateral right lower extremity venous duplex Doppler study was obtained utilizing B-mode, color- flow and spectral Doppler. FINDINGS: The right common femoral, femoral, and popliteal veins showed adequate compressibility, color-flow and augmentation. The right posterior tibial and peroneal veins were compressible, as well as proximal greater saphenous vein. The contralateral left common femoral vein was compressible with color-flow and augmentation. US/US venous duplex LE RT IMPRESSION: NO EVIDENCE OF DEEP VENOUS THROMBOSIS IN THE RIGHT LOWER EXTREMITY. NO SUPERFICIAL THROMBOPHLEBITIS WAS NOTED. No reflux was identified in the right lower extremity. This includes the deep and superficial system. Impression dictated by: Chris Ferris MD06/28/2023 4:27 PM Dictation Location: [facility]04 Tech: Fadumo Galvez Transcribed By: [facility] 06/28/23 1627 Dictated By: Chris Ferris MD 06/28/23 1626 Signed By: 06/28/23 1627[facility] Physician GroupConsent for Treatmenton 64-74-8297Fbrmkea for Treatment [id number] Health MiamisburgConsultation Noteon 57-29-7260Ztlybxwbapbq NotePatient: HOLA DOUGLAS Age: 78 years Sex: Female : 1945 Associated Diagnoses: None Author: Kristie Saavedra PA-C Subjective Chief complaint 06/24/2023 10:34 EDT low back pain . Patient is a 78-year-old female. She presents today for follow-up after undergoing bilateral SIJI on 06/08/23 and got 100% relief. Prior to that she underwent right-sided L4-5 and L5-S1 facet RFA. This was done on 04/20/2023 and gave her 50% relief. She has some right lateral hip pain that she rates a /10 but she states that sheis doing well. She is feeling well. She is comfortable. She is happy. She feels that things are overall going very well. Historically, previous conservative treatments including physical therapy has not given her any long-term relief. OTC medications have not given her any long- term relief. Health Status Allergies: Allergic Reactions (Selected) Severity Not Documented Aspirin- Unknown. Avelox- Burning and itching. Levaquin- Burning vapor and itching., Allergies (3) Active Severity Reaction aspirin Unknown Avelox Burning, Itching Levaquin Burning vapor, Itching Current medications: (Selected) Documented Medications Documented Calcium 600+D: Oral, Daily, Refill(s) 0, Prophylaxis Celexa: 10 mg, Oral, Daily, Refills(s) 0, Depression Claritin: Daily, Refills(s) 0 ClonazePAM 0.5 mg Tab: 0.25 mg = 0.5 tab(s), Oral, Once a day (at bedtime), PRN Leg cramps, Refills(s) 0 Multivitamins and Minerals: 1 tab, Oral, Daily, Refill(s) 0, Prophylaxis Ozempic 2 mg/1.5 mL (0.25 mg or 0.5 mg dose) subcutaneous solution: 0.25 mg, SubCutaneous, qWeek, Refill(s) 0 Ozempic 2 mg/3 mL (0.25 mg or 0.5 mg dose) subcutaneous solution: Refills(s) 0 Vitamin D: 50,000 International_Unit, Oral, qWeek, Refills(s) 0, Prophylaxis calcium (as carbonate) 600 mg oral tablet: 600 mg = 1 tab(s), Oral, BID, Refills(s) 0 fludrocortisone 0.1 mg Tab: 0.1 mg = 1 tab(s), Oral, Daily, Refills(s) 0 gabapentin: 300 mg, Oral, Once a day (at bedtime), Refills(s) 0, Pain rosuvastatin 5 mg Tab: 5 mg = 1 tab(s), Oral, Once a day (at bedtime), Refills(s) 0 Problem list: All Problems Urethral stricture / SNOMED CT 841610134 / Confirmed Nocturia / SNOMED CT 580575988 / Confirmed Urgency of urination / SNOMED CT 982149162 / Confirmed Hesitancy / SNOMED CT 091290372 / Confirmed Weak urine stream / SNOMED CT 173115738 / Confirmed Mixed incontinence / SNOMED CT 74921007 / Confirmed At risk for falls / SNOMED CT 267936691 / Possible Resolved: Hysterectomy / SNOMED CT 905034159 Resolved: Lumpectomy of breast / SNOMED CT 3277049219 Resolved: Colonoscopy / SNOMED CT 524777607 Objective Vital Signs 06/24/2023 10:34 EDT Peripheral Pulse Rate 90 bpm Respiratory Rate 18 br/min Systolic Blood Pressure 106 mmHg Diastolic Blood Pressure 71 mmHg Mean Arterial Pressure, Cuff 83 mmHg General: Alert and oriented, No acute distress. Eye: Normal conjunctiva. HENT: Normocephalic, Normal hearing. Cardiovascular: No edema. Musculoskeletal Normal range of motion. Normal strength. 5/5 strength Injection site well-healed Integumentary: Warm, Dry, [place]. Neurologic: Alert, Oriented. Psychiatric: Cooperative, Appropriate mood & affect. 14 point review of systems was negative unless otherwise noted. Impression and Plan Patient is a 78-year-old female. She has a past medical history significant for lumbar spondylosis and sacroiliitis. Patient underwent bilateral sacroiliac joint injections done on 06/08/2023 that gave her 100% relief. Prior to that she underwent right-sided facet RFA that gave her at least 50% relief. She is at this time, she is doing well. She is feeling well. She is comfortable. She is happy. She is able to do the things she wants to do. She did have a recent dog bite and has her right arm wrapped and she is on antibiotics for the dog bite. At this time she is going to follow-up with her services as needed. She will let us know should she require anything from our services ERMELINDA score: 16%[facility] CenterComment on above:Result Comment: Electronically Signed By: Kristie Saavedra PA-C\.chano\Date and Time Signed: 06/24/23 10:59 EDTOffice/Clinic Note-Physicianon 92-53-1005Atkinj/Clinic Note-[id number]#1.00TIFFOhioHealth Nelsonville Health CenterPatient Correspondenceon 48-37-3043Gdezfss Correspondence [id number]#1.00TIFSelect Medical Specialty Hospital - ColumbusPatient [id number]#1.00TIFF [facility] CenterPatient Correspondence [id number]#1.00TIFSelect Medical Specialty Hospital - ColumbusPatient History Officeon 77-32-6920Pnzkaog History Office [id number]#1.00TIFSelect Medical Specialty Hospital - ColumbusInfluenza virus B Ag [Presence] in Upper respiratory specimen by Rapid immunoassayon 44-34-0203YUABT Ag IA.rapid Ql (Nph)NegativeOhiohealth Grady Memorial HospitalNo Panel Informationon 48-63-7065Qklfltvcp Type A (Rapid)Negative [facility] HospitalPO SARS CoV-2 AntigenNegativeOhiohealth Grady Memorial HospitalNo Panel InformationOrdered By: Erich Gillis on 06-20-2023 RSV (POC)[facility] HospitalXR hand RT min 3V*on 61-37-7357VC hand RT min 3V*[facility] Main [place] [id number] XRay Report Signed Patient: Hola Douglas MR#: [id number] 22 : 1945 Acct:[id number] Age/Sex: 78 / F ADM Date: 06/17/23 Loc: ER Room: Type: REG ER Attending Dr: Copies to: ROSEMARY Chandra Ordering Provider: ROSEMARY Chandra Date of Service: 06/17/23 XR/XR hand RT min 3V*: Animal Bite 3 views right hand plain film COMPARISON: None HISTORY: Dog bite right hand ACUTE FINDINGS: None DEGENERATIVE CHANGE: Extensive degenerative change SOFT TISSUE FINDINGS: No radiodense foreign body. JOINT EFFUSION: None POSTOP CHANGES: None BONY MINERALIZATION: Adequate XR/XR hand RT min 3V* IMPRESSION: No acute bony findings. Impression dictated by: Meliton Herrera M.D.06/17/2023 3:50 PM Dictation Location: [place] [address] Transcribed By: [facility] 06/17/23 1550 Dictated By: Meliton Herrera DO 06/17/23 1549 Signed By: 06/17/23 1550[facility] Physician GroupCHEMISTRYOrdered By: Lab ROPUser on 30-17-9269Zjepwen [Mass/Vol]148 mg/tWNnby44 - 99 mg/dLDEACONESS HOSPITAL – [place] POC SubsectionPOC Device [id number] 1Invalid Interpretation [facility] POC SubsectionPOC User [id number] 1Invalid Interpretation CodeDEACONESS HOSPITAL – [place] POC SubsectionPOC UsernameGIES, MELINDAInvalid Interpretation [facility] POC SubsectionCapillary Glucose POCon 63-15-7474Dwrfoit [Mass/Vol]148 mg/rQHdvo34-14YvcqgiMount St. Mary HospitalComment on above:Performed By: #### [id number] ####[facility] [address] [place], [place] [address]Ovbpofd for Procedure/Surgeryon 16-96-8375Yekzzcv for Procedure/Surgery [id number]#1.00TIFTabbyPremier Health Miami Valley HospitalConsent for Treatmenton 61-12-4247Zurrzma for Treatment [id number]#1.00TIFSelect Medical Specialty Hospital - ColumbusDischarge Instructionson 33-81-6039Rvniwakzf Instructions [id number]#1.00TIFSelect Medical Specialty Hospital - ColumbusIntraOperative Documentson 95-72-2666KxomxMuzzmqing Documents [id number]#1.00TIFSelect Medical Specialty Hospital - ColumbusMain OR Intraoperative Recordon 69-12-1991Tvyp OR Intraoperative Record IntraOp Document Type FTPM Summary Primary Physician: Anirudh Arroyo DO Finalized Date/Time: 06/08/23 10:28:10 Pt. Name: HOLA DOUGLAS Nash Pemberton/Sex: 1945 Female Med Rec #: [id number] Physician: Anirudh Arroyo DO Financial #: [id number] Pt. Type: P Room/Bed: / Admit/Disch: 06/08/23 09:32:24 - Institution: Case Times FTPM Entry 1 Patient Times In Room 06/08/23 10:20:00 Out Room 06/08/23 10:27:00 Procedure Times Start 06/08/23 10:23:00 Stop 06/08/23 10:26:00 Anesthesia Times Last Modified By: Didi Keller RN 06/08/23 10:26:34 Case Attendance FTPM Entry 1 Entry 2 Entry 3 Case Attendee Anirudh Arroyo DO, RN, Didi Centeno RN, Erica Izquierdo Role Performed Surgeon - Primary Drawing Machine Operator - Primary Scrub - Primary Time In 06/08/23 10:20:00 06/08/23 10:20:00 06/08/23 10:20:00 Time Out 06/08/23 10:27:00 06/08/23 10:27:00 06/08/23 10:27:00 Procedure SACROILIAC JOINT SACROILIAC JOINT SACROILIAC JOINT INJECTION(Bilateral) INJECTION(Bilateral) INJECTION(Bilateral) Comments Last Modified By: Krishna LI, Didi Keller RN, Didi Jewell RN 06/08/23 10:26:35 06/08/23 10:26:35 06/08/23 10:26:35 Entry 4 Case Attendee Noni Lobo Role Performed Residential Sales Executive Time In 06/08/23 10:20:00 Time Out 06/08/23 10:27:00 Procedure SACROILIAC JOINT INJECTION(Bilateral) Comments Last Modified By: Didi Keller RN 06/08/23 10:26:35 Perioperative Protocols FTPM Pre-Care Text: Implements protective measures prior to operative or invasive procedure, confirms identity before the operative or invasive procedure, verifies operative procedure, surgical site, and laterality Entry 1 Procedure(s) SACROILIAC JOINT Patient Identity Birthday, ID Band INJECTION(Bilateral) Verified (select at Check, Patient least 2): Participation Consents / H and P HandP, Surgery/Procedure Operative Site Present Verified Consent Marking Verified Surgical Site Yes Laterality Verified Yes Verified Procedure Verified Yes Correct Patient Yes Position Verified Availability Equipment, Medication, Prep Dry Yes Verified (If X-ray Applicable) PreOp Antibiotic No Time Out Didi Keller RN, Roderick RN, Cruz Juarez DO, Bradford A., Noni Lobo Time Out Complete 06/08/23 10:20:00 Outcomes Met? Yes Last Modified By: Didi Keller RN 06/08/23 10:20:45 Post-Care Text: The patient is free from signs and symptoms of injury caused by extraneous objects Allergy Information FTPM Pre-Care Text: Verifies allergies Entry 1 Allergies Reviewed? Yes Allergies Reviewed Self/Patient With Outcomes Met? Yes Last Modified By: Didi Keller RN 06/08/23 09:41:48 Post-Care Text: The patient received appropriate medication(s) safely administered during the perioperative period Surgical Procedures FTPM Entry 1 Procedure Description Procedure SACROILIAC JOINT Modifiers Bilateral INJECTION Surgeon Description SIJI Primary Procedure Yes Primary Surgeon Anirudh Arroyo DO Start 06/08/23 10:23:00 Stop 06/08/23 10:26:00 Anesthesia Type None Surgical Service Pain Management Wound Class 1 - Clean Last Modified By: Didi Keller RN 06/08/23 10:26:36 General Case Data FTPM Pre-Care Text: Classifies surgical wound, implements aseptic technique, initiates traffic control Entry 1 Case Information OR Pain Proc Room Case Level Level 2 Wound Class 1 - Clean Specialty Pain Management Preop Diagnosis M46.1 Postop Same As Preop Yes Postop Diagnosis M46.1 Outcomes Met? Yes Last Modified By: Didi Keller RN 06/08/23 10:21:08 Post-Care Text: The patient is free from signs and symptoms of infection Skin Assessment (Pre Procedure) FTPM Pre-Care Text: Implements protective measures to prevent skin/ tissue injury due to thermal or mechanical sources Evaluates for signs and symptoms of physical injury to skin and tissue Entry 1 Skin Integrity Intact, [place], Warm, and Skin Abnormality No Dry Outcomes Met? Yes Last Modified By: Didi Keller RN 06/08/23 09:42:04 Post-Care Text: The patient is free from signs and symptoms of injury caused by extraneous objects Patient Positioning FTPM Pre-Care Text: Identifies physical alterations that require additional precautions for procedure-specific positioning, verifies presence of prosthetics or corrective devices, positions the patient, evaluates the patient for signs and symptoms of injury as a result of positioning Entry 1 Procedure SACROILIAC JOINT Body Position Prone INJECTION(Bilateral) Feet Uncrossed? Yes Left Arm Position Resting at Side Right Arm Position Resting at Side Left Leg Position Extended Right Leg Position Extended Positioning Device Pillow Under Head Large, Safety Strap, Pillow Large Under Knees Press Points Checked Yes By Didi Keller RN Outcomes Met? Yes Last Mo (more content not included)...[facility] CenterMain OR Preoperative Recordon 66-81-0442Tlzk OR Preoperative RecordHolding Area Document Type FTPM Summary Primary Physician: Anirudh Arroyo DO Finalized Date/Time: 06/08/23 09:55:16 Pt. Name: HOLA DOUGLAS/Sex: 1945 Female Med Rec #: [id number] Physician: Anirudh Arroyo DO Financial #: [id number] Pt. Type: P Room/Bed: / Admit/Disch: 06/08/23 09:32:24 - Institution: Case Times Holding FTPM Pre-Care Text: Verifies consent for planned procedure, identifies individual values and wishes concerning care, includes family members in perioperative teaching Secures patient's records' belongings, and valuables, maintains patient's dignity and privacy, and maintains patient confidentiality Entry 1 In Holding 06/08/23 09:46:00 Outcomes Met? Yes Last Modified By: Annmarie Echeverria RN 06/08/23 09:46:55 Post-Care Text: The patient participates in decisions affecting his or her perioperative plan of care The patient'sright to privacy is maintained Surgery Checklist FTPM Entry 1 Patient Birthday, ID Band Procedure History and Physical, Identification: Check, Patient Verification: Surgical Consent, With Participation Patient Date/Time: 06/08/23 09:47:00 Results Reviewed 0730 toast and water Comments: Personal Items: Jewelry Personal Items Pt. wearing one ring Comment: Complaints of Pain: Yes Pain Comment: 6/10 lower back pain radiates into right thigh/buttock and occasionaly on left buttock Operative Site Yes Marked By: Dr. Arroyo Marking: Location: bilateral SIJI Availability Equipment, X-Ray Verified: Does Patient Smoke No Patient states Yes Comment - Adult -Sravan postop adult Supervision supervision available Case Cancelled in No Holding Area see comments below for reason Last Modified By: Annmraie Echeverria RN 06/08/23 09:55:15 Finalized By: Annmarie Echeverria RN Document Signatures Signed By: Annmarie Echeverria RN 06/08/23 09:55[facility] CenterPatient Correspondenceon 22-95-7092Trizimf Correspondence [id number]#1.00TIFSelect Medical Specialty Hospital - ColumbusConsent for Treatmenton 67-48-4670Wfgfifb for Treatment [id number]#1.00TIFSelect Medical Specialty Hospital - ColumbusConsultation Noteon 37-95-9857Jtlmlkzqgyfb NotePatient: HOLA DOUGLAS Age: 78 years Sex: Female : 1945 Associated Diagnoses: None Author: Kristie Saavedra PA-C Subjective Chief complaint 05/20/2023 10:17 EST Back pain . Patient is a 78-year-old female. She presents today for follow-up after undergoing right-sided L4-5and L5-S1 facet RFA. This was done on 04/20/2023 and unfortunate, she is only obtained 25% relief atthis time. She is having a lot of buttock pain. This affects her ambulatory status. This affects her quality life. This affects her activities and affects her ability to do the things she wants to do. She rates her discomfort a 3/10 with certain activities it is a stabbing type discomfort that getseven worse Historically, previous conservative treatments including physical therapy has not given her any long-term relief. OTC medications have not given her any long- term relief. Health Status Allergies: Allergic Reactions (Selected) Severity Not Documented Aspirin- Unknown. Avelox- Burning and itching. Levaquin- Burning vapor and itching., Allergies (3) Active Severity Reaction aspirin Unknown Avelox Burning, Itching Levaquin Burning vapor, Itching Current medications: (Selected) Documented Medications Documented Calcium 600+D: Oral, Daily, Refill(s) 0, Prophylaxis Celexa: 10 mg, Oral, Daily, Refills(s) 0, Depression Claritin: Daily, Refills(s) 0 ClonazePAM 0.5 mg Tab: 0.25 mg = 0.5 tab(s), Oral, Once a day (at bedtime), PRN Leg cramps, Refills(s) 0 Multivitamins and Minerals: 1 tab, Oral, Daily, Refill(s) 0, Prophylaxis Ozempic 2 mg/1.5 mL (0.25 mg or 0.5 mg dose) subcutaneous solution: 0.25 mg, SubCutaneous, qWeek, Refill(s) 0 Ozempic 2 mg/3 mL (0.25 mg or 0.5 mg dose) subcutaneous solution: Refills(s) 0 Vitamin D: 50,000 International_Unit, Oral, qWeek, Refills(s) 0, Prophylaxis calcium (as carbonate) 600 mg oral tablet: 600 mg = 1 tab(s), Oral, BID, Refills(s) 0 fludrocortisone 0.1 mg Tab: 0.1 mg = 1 tab(s), Oral, Daily, Refills(s) 0 gabapentin: 300 mg, Oral, Once a day (at bedtime), Refills(s) 0, Pain rosuvastatin 5 mg Tab: 5 mg = 1 tab(s), Oral, Once a day (at bedtime), Refills(s) 0 Problem list: All Problems Urethral stricture / SNOMED CT 733310827 / Confirmed Nocturia / SNOMED CT 224876588 / Confirmed Urgency of urination / SNOMED CT 061048889 / Confirmed Hesitancy / SNOMED CT 143780802 / Confirmed Weak urine stream / SNOMED CT 197342498 / Confirmed Mixed incontinence / SNOMED CT 39145198 / Confirmed At risk for falls / SNOMED CT 272059933 / Possible Resolved: Hysterectomy / SNOMED CT 448582573 Resolved: Lumpectomy of breast / SNOMED CT 6044287120 Resolved: Colonoscopy / SNOMED CT 345704938 Objective Vital Signs 05/20/2023 10:17 EST Peripheral Pulse Rate 87 bpm Respiratory Rate 18 br/min Systolic Blood Pressure 101 mmHg Diastolic Blood Pressure 47 mmHg LOW Mean Arterial Pressure, Cuff 65 mmHg General: Alert and oriented, No acute distress. Eye: Normal conjunctiva. HENT: Normocephalic, Normal hearing. Cardiovascular: No edema. Musculoskeletal Normal range of motion. Normal strength. 5/5 lower extremity straight Pain with compression of the bilateral sacroiliac joints Positive LUIS F test bilaterally. Positive thigh thrust bilaterally. Positive Gaenslen's test bilaterally Integumentary: Warm, Dry, [place]. Injection site well-healed Neurologic: Alert, Oriented. Psychiatric: Cooperative, Appropriate mood & affect. Results Review * Final Report * Reason For Exam M54.16, G89.29, M47.816 POWERSCRIBE REPORT IMPRESSION: MULTILEVEL DEGENERATIVE CHANGES. CLINICAL HISTORY: M54.16, G89.29, M47.816. Low back pain. COMMENT: Unenhanced images were obtained. There is mild lumbar levoscoliosis. There is degenerative disc dehydration of intervertebral discs. T11-T12: There is disc bulging, with slight indentation of the dural sac anteriorly. T12-L1: The disc is unremarkable. L1-L2: There is disc bulging, with slight indentation of the dural sac anteriorly. There are hypertrophic facet arthritic changes, with hypertrophy of the ligamentum flava. There is slight constriction of the spinal canal. L2-L3: There is mild grade 1 anterolisthesis. There is mild interspace narrowing. There is disc bulging, with mild indentation atrial sac anteriorly. There are hypertrophic facet arthritic changes with hypertrophy of ligamenta flava. There is mild focal spinal canal stenosis. L3-L4: There is minimal grade 1 retrolisthesis. There is prominent interspace narrowing, and there is some irregularity of the vertebral body endplates. There are anterior and posterior marginal hypertrophic spurs of the vertebral bodies. There is disc bulging, with indentation of the dural sac anteriorly. There are hypertrophic facet arthritic changes with hypertrophy of ligamenta flava, greater on the right than on the left. 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 (more content not included)...[facility] CenterComment on above:Result Comment: Electronically Signed By: Kristie Saavedra PA-C\.br\Date and Time Signed: 05/20/23 10:48 EST\.br\Electronically Co-Signed By: Anirudh Arroyo DO\.br\Date and Time Co-Signed: 05/20/23 15:20 ESTLegal Correspondence Officeon 76-43-2039Qledv Correspondence Office [id number]#1.00TIFSelect Medical Specialty Hospital - ColumbusOffice/Clinic Note-Physicianon 17-09-8100Flvrxk/Clinic Note-Physician [id number]#1.00TIFSelect Medical Specialty Hospital - ColumbusPatient Correspondenceon 94-08-9327Livuxss Correspondence [id number]#1.00[facility] MiamisburgPatient [id number]#1.00TIFF [facility] CenterPatient Correspondence [id number]#1.00[facility] HOSPITALFOhioHealth Nelsonville Health CenterPatient [id number]#1.00TIFF [facility] CenterPatient History Officeon 73-46-9252Lobojvk History [id number]#1.00[facility] MiamisburgCHEMISTRYOrdered By: Dayan Hassan on 82-15-4809Qdlnoxn [Mass/Vol]122 mg/aHYtpa63 - 99 mg/dLFT POC SubsectionPOC Device [id number] 1Invalid Interpretation CodeDEACONESS HOSP[facility] [place] POC SubsectionPOC User [id number] 1Invalid Interpretation CodeDEACONESS HOSP[facility] – [place] POC SubsectionPOC UsernameGIES, MELINDAInvalid Interpretation CodeDEACONESS HOSPITAL – [place] POC SubsectionCapillary Glucose POCon 24-75-2504Lndgcpq [Mass/Vol]122 mg/wNFdrk59-60XeaywmMount St. Mary HospitalComment on above: Performed By: #### [id number] #### [facility] [address] [place], [place] [address]Xulbdcx for Procedure/Surgeryon 77-24-0766Mbvajiq for Procedure/[id number]#1.00TIFSelect Medical Specialty Hospital - ColumbusConsent for Treatmenton 16-25-8460Zrtxagc for Treatment [id number]#1.00TIFSelect Medical Specialty Hospital - ColumbusDischarge Instructionson 29-84-0144Racghznvr Instructions [id number]#1.00[facility] MiamisburgIntraOperative Documentson 45-76-2593HvopvAsapdkfuv Documents [id number]#1.00[facility] MiamisburgMain OR Intraoperative Recordon 07-42-7284Gxbx OR Intraoperative Record IntraOp Document Type FTPM Summary Primary Physician: Anirudh Arroyo DO Finalized Date/Time: 04/20/23 09:18:54 Pt. Name: HOLA DOUGLAS/Sex: 1945 Female Med Rec #: [id number] Physician: Anirudh Arroyo DO Financial #: [id number] Pt. Type: P Room/Bed: / Admit/Disch: 04/20/23 07:52:51 - Institution: Case Times FTPM Entry 1 Patient Times In Room 04/20/23 08:50:00 Out Room 04/20/23 09:06:00 Procedure Times Start 04/20/23 08:53:00 Stop 04/20/23 09:07:00 Anesthesia Times Last Modified By: Didi Keller RN 04/20/23 09:18:02 Case Attendance FTPM Entry 1 Entry 2 Entry 3 Case Attendee Cruz KOENIG, Anirudh Keller RN, Didi Rodriguez RN, Sheryl Taylor Role Performed Surgeon - Primary Drawing Machine Operator - Primary Scrub - Relief Time In 04/20/23 08:50:00 04/20/23 08:50:00 04/20/23 08:50:00 Time Out 04/20/23 09:06:00 04/20/23 09:06:00 04/20/23 09:06:00 Procedure LUMBAR RADIO FREQUENCY LUMBAR RADIO FREQUENCY LUMBAR RADIO FREQUENCY ABLATION(Right) ABLATION(Right) ABLATION(Right) Comments Mookie Carranza RTR- Grisel Perry, Phyllis Harrison PMG Last Modified By: Krishna LI, Didi Keller RN, Didi Keller RN, Didi Holman 04/20/23 09:18:03 04/20/23 09:18:03 04/20/23 09:18:03 Entry 4 Entry 5 Case Attendee Jacobo LI, Ashvin Sahu Role Performed Scrub - Primary Residential Sales Executive Time In 04/20/23 08:50:00 04/20/23 08:50:00 Time Out 04/20/23 09:06:00 04/20/23 09:06:00 Procedure LUMBAR RADIO FREQUENCY LUMBAR RADIO FREQUENCY ABLATION(Right) ABLATION(Right) Comments Last Modified By: Krishna LI, Didi Keller RN, Didi Holman 04/20/23 09:18:03 04/20/23 09:18:03 Perioperative Protocols FTPM Pre-Care Text: Implements protective measures prior to operative or invasive procedure, confirms identity before the operative or invasive procedure, verifies operative procedure, surgical site, and laterality Entry 1 Procedure(s) LUMBAR RADIO FREQUENCY Patient Identity Birthday, ID Band ABLATION(Right) Verified (select at Check, Patient least 2): Participation Consents / H and P Surgery/Procedure Operative Site Present Verified Consent Marking Verified Surgical Site Yes Laterality Verified Yes Verified Procedure Verified Yes Correct Patient Yes Position Verified Availability Equipment, Medication, Prep Dry Yes Verified (If X-ray Applicable) PreOp Antibiotic No Time Out Didi Keller RN, Jacobo RN, Cruz Juarez DO, Bradford A., Jennifer RN, Lucy Hendrix Bryce Time Out Complete 04/20/23 08:52:00 Outcomes Met? Yes Last Modified By: Didi Keller RN 04/20/23 09:18:38 Post-Care Text: The patient is free from signs and symptoms of injury caused by extraneous objects Allergy Information FTPM Pre-Care Text: Verifies allergies Entry 1 Allergies Reviewed? Yes Allergies Reviewed Self/Patient With Outcomes Met? Yes Last Modified By: Didi Keller RN 04/20/23 08:49:31 Post-Care Text: The patient received appropriate medication(s) safely administered during the perioperative period Surgical Procedures FTPM Entry 1 Procedure Description Procedure LUMBAR RADIO FREQUENCY Modifiers Right ABLATION Surgeon Description L4/5 + L5.S1 RFA Primary Procedure Yes Primary Surgeon Anirudh Arroyo DO Start 04/20/23 08:53:00 Stop 04/20/23 09:07:00 Anesthesia Type None Surgical Service Pain Management Wound Class 1 - Clean Last Modified By: Didi Keller RN 04/20/23 09:18:43 General Case Data FTPM Pre-Care Text: Classifies surgical wound, implements aseptic technique, initiates traffic control Entry 1 Case Information OR Pain Proc Room Case Level Level 2 Wound Class 1 - Clean Specialty Pain Management Preop Diagnosis M47.816 Postop Same As Preop Yes Postop Diagnosis M47.816 Outcomes Met? Yes Last Modified By: Didi Keller RN 04/20/23 09:18:50 Post-Care Text: The patient is free from signs and symptoms of infection Skin Assessment (Pre Procedure) FTPM Pre-Care Text: Implements protective measures to prevent skin/ tissue injury due to thermal or mechanical sources Evaluates for signs and symptoms of physical injury to skin and tissue Entry 1 Skin Integrity Intact, [place], Warm, and Skin Abnormality No Dry Outcomes Met? Yes Last Modified By: Didi Keller RN 04/20/23 08:49:50 Post-Care Text: The patient is free from signs and symptoms of injury caused by extraneous objects Patient Positioning FTPM Pre-Care Text: Identifies physical alterations that require additional precautions for procedure-specific positioning, verifies presence of prosthetics or corrective devices, positions the patient, evaluates the patient for signs and symptoms of injury as a result of positioning Entry 1 Procedure LUMBAR RADIO FREQUENCY Body Position Prone ABLATION(Right) Feet Uncrossed? Yes Left Arm Position Resting at Side Right (more content not included)...[facility] Pre[facility] Recordon 66-24-2705Bxis OR Preoperative RecordHolding Area Document Type FTPM Summary Primary Physician: Anirudh Arroyo DO Finalized Date/Time: 04/20/23 08:05:22 Pt. Name: HOLA DOUGLAS/Sex: 1945 Female Med Rec #: [id number] Physician: Anirudh Arroyo DO Financial #: [id number] Pt. Type: P Room/Bed: / Admit/Disch: 04/20/23 07:52:51 - Institution: Case Times Holding FTPM Pre-Care Text: Verifies consent for planned procedure, identifies individual values and wishes concerning care, includes family members in perioperative teaching Secures patient's records' belongings, and valuables, maintains patient's dignity and privacy, and maintains patient confidentiality Entry 1 In Holding 04/20/23 08:01:00 Outcomes Met? Yes Last Modified By: Terri Ledbetter RN 04/20/23 08:01:33 Post-Care Text: The patient participates in decisions affecting his or her perioperative plan of care The patient'sright to privacy is maintained Surgery Checklist FTPM Entry 1 Patient Birthday, ID Band Procedure History and Physical, Identification: Check, Patient Verification: With Patient Participation NPO after Midnight: No Results Reviewed n/a Comments: Personal Items x2 baretts in hair, Complaints of Pain: Yes Comment: compression glove on left hand Pain Comment: 04/20 right hip Operative Site Yes Marking: Marked By: Dr Arroyo Location: right L4/5 +L5/S1 RFA Availability Equipment, X-Ray Verified: Does Patient Smoke No Case Cancelled in No Holding Area see comments below for reason Last Modified By: Terri Ledbetter RN 04/20/23 08:05:15 Finalized By: Terri Ledbetter RN Document Signatures Signed By: Terri Ledbetter RN 04/20/23 08:05NoPremier Health Miami Valley HospitalPatient Correspondenceon 92-95-3938Qhixnzi Correspondence [id number]#1.00TIFAsheville Specialty Hospitalmega [facility] HospitalInsurance Correspondence Officeon 01-27-6969Ytzxlsecg Correspondence [id number]#2.00TIFSelect Medical Specialty Hospital - ColumbusOffice/Clinic Note-Physicianon 83-53-5798Cqvhxt/Clinic Note-[id number]#1.00TIFSelect Medical Specialty Hospital - ColumbusInsurance Correspondence Officeon 75-18-2481Lmoqzrlta Correspondence [id number]#2.00TIFTabbymookie Watts [facility] HospitalPatient Correspondenceon 19-36-4368Fdokcwo [id number]#1.00TIFSelect Medical Specialty Hospital - ColumbusCOVID-19 Detected/Not DetectedOrdered By: Erich Gillis on 06-41-8953BHRR-CoV-2 (COVID-19) RNA HANNAH+non-probe Ql (Nph)Not detectedNot [facility] CenterComment on above:This is a duplicate RP2.1 COVID (PCR) result to be used for statistical tracking purpose only. Respiratory pathogens DNA and RNA panel - Nasopharynx by HANNAH with non-probe detectionOrdered By: Erich Gillis on 79-85-0043Zawxojvbari pathogens DNA and RNA panel HANNAH+non-probe (Nph)[facility] HospitalConsent for Treatment on 88-25-1512Uxzvdpk for Treatment [id number]#1.00TIFSelect Medical Specialty Hospital - ColumbusConsultation Noteon 35-94-8135Ziehkyvfvocy NotePatient: HOLA DOUGLAS Age: 77 years Sex: Female : 1945 Associated Diagnoses: None Author: Kristie Saavedra PA-C Subjective Chief complaint 03/07/2023 11:01 EST Back Pain . Patient is a 77-year-old female. She presents today for follow-up after undergoing her second right-sided L4-5 and L5-S1 facet medial branch block done on 02/28/2023 that gave her 100% relief for 24 hours. This was the second time she had this done. The first was on 01/17/2023 and she also had a 10%relief for 24 hours. Thus far, these 2 injections have given her significant short-term relief. Sheis eager to get long-term relief. Historically, previous conservative treatments including physicaltherapy has not given her any long-term relief. OTC medications have not given her any long-term relief. She is eager to get long-term relief of her right-sided lower back pain. The medial branch blocks have all done this so she is eager to get long-term relief. Health Status Allergies: Allergic Reactions (Selected) Severity Not Documented Aspirin- Unknown. Avelox- Burning and itching. Levaquin- Burning vapor and itching., Allergies (3) Active Reaction aspirin Unknown Avelox Burning Levaquin Burning vapor Current medications: (Selected) Documented Medications Documented Calcium 600+D: Oral, Daily, Refill(s) 0, Prophylaxis Celexa: 10 mg, Oral, Daily, Refills(s) 0, Depression Claritin: Daily, Refills(s) 0 ClonazePAM 0.5 mg Tab: 0.25 mg = 0.5 tab(s), Oral, Once a day (at bedtime), PRN Leg cramps, Refills(s) 0 Multivitamins and Minerals: 1 tab, Oral, Daily, Refill(s) 0, Prophylaxis Ozempic 2 mg/1.5 mL (0.25 mg or 0.5 mg dose) subcutaneous solution: 0.25 mg, SubCutaneous, qWeek, Refill(s) 0 Ozempic 2 mg/3 mL (0.25 mg or 0.5 mg dose) subcutaneous solution: Refills(s) 0 Vitamin D: 50,000 International_Unit, Oral, qWeek, Refills(s) 0, Prophylaxis calcium (as carbonate) 600 mg oral tablet: 600 mg = 1 tab(s), Oral, BID, Refills(s) 0 fludrocortisone 0.1 mg Tab: 0.1 mg = 1 tab(s), Oral, Daily, Refills(s) 0 gabapentin: 300 mg, Oral, Once a day (at bedtime), Refills(s) 0, Pain rosuvastatin 5 mg Tab: 5 mg = 1 tab(s), Oral, Once a day (at bedtime), Refills(s) 0 Problem list: All Problems Urethral stricture / SNOMED CT 053615146 / Confirmed Nocturia / SNOMED CT 662599095 / Confirmed Urgency of urination / SNOMED CT 888088976 / Confirmed Hesitancy / SNOMED CT 271568153 / Confirmed Weak urine stream / SNOMED CT 216045867 / Confirmed Mixed incontinence / SNOMED CT 39841571 / Confirmed At risk for falls / SNOMED CT 925502548 / Possible Resolved: Hysterectomy / SNOMED CT 555431854 Resolved: Lumpectomy of breast / SNOMED CT 4751367600 Resolved: Colonoscopy / SNOMED CT 735180866 Objective Vital Signs 03/07/2023 11:01 EST Peripheral Pulse Rate 80 bpm Respiratory Rate 14 br/min Systolic Blood Pressure 104 mmHg Diastolic Blood Pressure 67 mmHg Mean Arterial Pressure, Cuff 79 mmHg General: Alert and oriented, No acute distress. Eye: Normal conjunctiva. HENT: Normocephalic, Normal hearing. Cardiovascular: No edema. Musculoskeletal Normal range of motion. Normal strength. Pain with compression of the right-sided lumbar facet joints Increased right-sided lower back pain with facet loading Integumentary: Warm, Dry, [place]. Injection site well-healed Neurologic: Alert, Oriented. Psychiatric: Cooperative, Appropriate mood & affect. Results Review * Final Report * Reason For Exam M54.16, G89.29, M47.816 POWERSCRIBE REPORT IMPRESSION: MULTILEVEL DEGENERATIVE CHANGES. CLINICAL HISTORY: M54.16, G89.29, M47.816. Low back pain. COMMENT: Unenhanced images were obtained. There is mild lumbar levoscoliosis. There is degenerative disc dehydration of intervertebral discs. T11-T12: There is disc bulging, with slight indentation of the dural sac anteriorly. T12-L1: The disc is unremarkable. L1-L2: There is disc bulging, with slight indentation of the dural sac anteriorly. There are hypertrophic facet arthritic changes, with hypertrophy of the ligamentum flava. There is slight constriction of the spinal canal. L2-L3: There is mild grade 1 anterolisthesis. There is mild interspace narrowing. There is disc bulging, with mild indentation atrial sac anteriorly. There are hypertrophic facet arthritic changes with hypertrophy of ligamenta flava. There is mild focal spinal canal stenosis. L3-L4: There is minimal grade 1 retrolisthesis. There is prominent interspace narrowing, and there is some irregularity of the vertebral body endplates. There are anterior and posterior marginal hypertrophic spurs of the vertebral bodies. There is disc bulging, with indentation of the dural sac anteriorly. There are hypertrophic facet arthritic changes with hypertrophy of ligamenta flava, greater on the right than on the left. There is moderate to severe focal spinal canal stenosis. There are hyp (more content not included)...[facility] CenterComment on above:Result Comment: Electronically Signed By: Kristie Saavedra PA-C\.br\Date and Time Signed: 03/07/23 11:29 EST\.br\Electronically Co-Signed By: Faisal BRICENO, Jamey Bartlett\.br\Date and Time Co-Signed: 03/14/23 11:39 ESTOffice/Clinic Note-Nurseon 65-35-4988Wztcgl/Clinic Note-Nurse [id number]#1.00TIFSelect Medical Specialty Hospital - ColumbusOffice/Clinic Note-Physicianon 37-58-7754Xkzsvj/Clinic Note-Physician [id number]#1.00TIFFOhioHealth Nelsonville Health CenterPatient Correspondenceon 63-05-9517Yxvtvjr Correspondence [id number]#1.00TIFSelect Medical Specialty Hospital - ColumbusPatient [id number]#1.00TIFF [facility] CenterPatient Correspondence [id number]#1.00TIFSelect Medical Specialty Hospital - ColumbusPatient History Officeon 53-90-0513Thfmflc History Office [id number]#1.00[facility] MiamisburgCHEMISTRYOrdered By: Lab ROPUser on 54-56-1584Ljemoff [Mass/Vol]162 mg/dL High55 - 99 mg/dLDEACONESS HOSP[facility] [place] POC SubsectionPOC Device [id number] 1Invalid Interpretation CodeDEACONESS HOSPITAL – [place] POC SubsectionPOC UsernameGIES, MELINDAInvalid Interpretation CodeDEACONESS HOSPITAL [facility] [place] POC SubsectionSodium [Moles/Vol]017062157 mmol/LInvalid Interpretation CodeDEACONESS HOSPITAL – [place] POC SubsectionCapillary Glucose POCon 19-83-2174Dbbpdax [Mass/Vol]162 mg/oKYlhg06-18WhagygMount St. Mary HospitalComment on above: Performed By: #### [id number] #### [facility] [address] [place], [place] [address]Cfmwcqq for Procedure/Surgeryon 08-12-9848Qrubunm for Procedure/[id number]#1.00TIFSelect Medical Specialty Hospital - ColumbusConsent for Treatmenton 27-30-0658Gjmydsu for Treatment [id number]#1.00[facility] MiamisburgDischarge Instructionson 91-63-2852Dacpvtvve Instructions [id number]#1.00[facility] MiamisburgIntraOperative Documentson 19-47-4520MxvsuSkyczwgfx Documents [id number]#1.00[facility] Mi[facility]burgMain OR Intraoperative Recordon 29-93-0320Psgq OR Intraoperative Record IntraOp Document Type FTPM Summary Primary Physician: Jamey Malone MD Finalized Date/Time: 02/28/23 15:01:39 Pt. Name: HOLA DOUGLAS/Sex: 1945 Female Med Rec #: [id number] Physician: Faisal BRICENO, Jamey Bartlett Financial #: [id number] Pt. Type: P Room/Bed: / Admit/Disch: 02/28/23 09:44:10 - Institution: Case Times FTPM Entry 1 Patient Times In Room 02/28/23 10:28:00 Out Room 02/28/23 10:35:00 Procedure Times Start 02/28/23 10:31:00 Stop 02/28/23 10:34:00 Anesthesia Times Last Modified By: Erika Arellano RN 02/28/23 10:41:15 Case Attendance FTPM Entry 1 Entry 2 Entry 3 Case Attendee Faisal BRICENO, Jamey Keller RN, Erika Solitario RN Role Performed Surgeon - Primary Scrub - Primary Drawing Machine Operator - Primary Time In 02/28/23 10:28:00 02/28/23 10:28:00 02/28/23 10:28:00 Time Out 02/28/23 10:35:00 02/28/23 10:35:00 02/28/23 10:35:00 Procedure MEDIAL BRANCH MEDIAL BRANCH MEDIAL BRANCH BLOCK(Right) BLOCK(Right) BLOCK(Right) Comments Last Modified By: Erika Arellano RN 02/28/23 Erika Arellano RN 02/28/23 Erika Arellano RN 02/28/23 14:52:55 14:52:55 14:52:55 Entry 4 Case Attendee Viktoria CORDOVA(R)Lila Role Performed Residential Sales Executive Time In 02/28/23 10:28:00 Time Out 02/28/23 10:35:00 Procedure MEDIAL BRANCH BLOCK(Right) Comments Last Modified By: Erika Arellano RN 02/28/23 14:52:55 Perioperative Protocols FTPM Pre-Care Text: Implements protective measures prior to operative or invasive procedure, confirms identity before the operative or invasive procedure, verifies operative procedure, surgical site, and laterality Entry 1 Procedure(s) MEDIAL BRANCH Patient Identity Birthday, ID Band BLOCK(Right) Verified (select at Check, Patient least 2): Participation Consents / H and P HandP, Surgery/Procedure Operative Site Present Verified Consent Marking Verified Surgical Site Yes Laterality Verified Yes Verified Procedure Verified Yes Correct Patient Yes Position Verified Availability Equipment, Medication, Prep Dry Yes Verified (If X-ray Applicable) PreOp Antibiotic No Time Out Erika Arellano RN, Given Participants Krishna LI, Didi Holman, Faisal BRICENO, Jamey Bartlett, Viktoria RT(R), Lila Time Out Complete 02/28/23 10:30:00 Outcomes Met? Yes Last Modified By: Erika Arellano RN 02/28/23 10:30:17 Post-Care Text: The patient is free from signs and symptoms of injury caused by extraneous objects Allergy Information FTPM Pre-Care Text: Verifies allergies Entry 1 Allergies Reviewed? Yes Allergies Reviewed Self/Patient With Outcomes Met? Yes Last Modified By: Erika Arellano RN 02/28/23 09:52:49 Post-Care Text: The patient received appropriate medication(s) safely administered during the perioperative period Surgical Procedures FTPM Entry 1 Procedure Description Procedure MEDIAL BRANCH BLOCK Modifiers Right Surgeon Description L4/5,L5/S1 Primary Procedure Yes Primary Surgeon Faisal BRICENO, Jamey Bartlett Start 02/28/23 10:31:00 Stop 02/28/23 10:34:00 Anesthesia Type None Surgical Service Pain Management Wound Class 1 - Clean Last Modified By: Erika Arellano RN 02/28/23 14:52:54 General Case Data FTPM Pre-Care Text: Classifies surgical wound, implements aseptic technique, initiates traffic control Entry 1 Case Information OR Pain Proc Room Case Level Level 2 Wound Class 1 - Clean Specialty Pain Management Preop Diagnosis M47.816 Postop Same As Preop Yes Postop Diagnosis M47.816 Outcomes Met? Yes Last Modified By: Erika Arellano RN 02/28/23 14:52:59 Post-Care Text: The patient is free from signs and symptoms of infection Skin Assessment (Pre Procedure) FTPM Pre-Care Text: Implements protective measures to prevent skin/ tissue injury due to thermal or mechanical sources Evaluates for signs and symptoms of physical injury to skin and tissue Entry 1 Skin Integrity Intact, [place], Warm, and Skin Abnormality No Dry Outcomes Met? Yes Last Modified By: Erika Arellano RN 02/28/23 14:53:16 Post-Care Text: The patient is free from signs and symptoms of injury caused by extraneous objects Patient Positioning FTPM Pre-Care Text: Identifies physical alterations that require additional precautions for procedure-specific positioning, verifies presence of prosthetics or corrective devices, positions the patient, evaluates the patient for signs and symptoms of injury as a result of positioning Entry 1 Procedure MEDIAL BRANCH Body Position Prone BLOCK(Right) Feet Uncrossed? Yes Left Arm Position Resting at Side Right Arm Position Resting at Side Left Leg Position Extended Right Leg Position Extended Positioning Device Pillow Under Head Large, Safety Strap, Pillow Large Under Knees Press Points Checked Yes By Erika Arellano RN Outcomes Met? Yes Last Modified By: Erika Arellano RN 02/28/23 14:56:29 Post-Care Text: The patient is free from signs and symptoms of injury related to positioning Transpo (more content not included)...[facility] Preoperative Recordon 10-96-8644Xgrr OR Preoperative RecordHolding Area Document Type FTPM Summary Primary Physician: Jamey Malone MD Finalized Date/Time: 02/28/23 09:55:11 Pt. Name: HOLA DOUGLAS./Sex: 1945 Female Med Rec #: [id number] Physician: Jamey Malone MD Financial #: [id number] Pt. Type: P Room/Bed: / Admit/Disch: 02/28/23 09:44:10 - Institution: Case Times Holding FTPM Pre-Care Text: Verifies consent for planned procedure, identifies individual values and wishes concerning care, includes family members in perioperative teaching Secures patient's records' belongings, and valuables, maintains patient's dignity and privacy, and maintains patient confidentiality Entry 1 In Holding 02/28/23 09:53:00 Outcomes Met? Yes Last Modified By: Charity Andrews RN 02/28/23 09:53:28 Post-Care Text: The patient participates in decisions affecting his or her perioperative plan of care The patient'sright to privacy is maintained Surgery Checklist FTPM Entry 1 Patient Birthday, ID Band Procedure History and Physical, Identification: Check, Patient Verification: Surgical Consent, With Participation Patient NPO after Midnight: No Date/Time: 02/28/23 08:00:00 Personal Items: Jewelry Personal Items earrings Comment: Complaints of Pain: Yes Pain Comment: 06/18 right low back Operative Site Yes Marked By: faisal Marking: Location: right Availability Equipment, X-Ray Verified: Does Patient Smoke No Patient states Yes Comment - Adult sravan postop adult Supervision supervision available Case Cancelled in No Holding Area see comments below for reason Last Modified By: Charity Andrews RN 02/28/23 09:55:05 General Comments: kenji Finalized By: Charity Andrews RN Document Signatures Signed By: Charity Andrews RN 02/28/23 09:55[facility] CenterOperative Report on 66-34-6023Rvduqknbw ReportPatient: HOLA DOUGLAS Age: 77 years Sex: Female : 1945 Associated Diagnoses: None Author: Faisal BRICENO, Jamey Bartlett Procedure Procedure: Lumbar Facet Medial Branch Blocks to the Right L4/5 and L5/S1 Facet Joints with Fluoroscopic Guidance Diagnosis: Lumbar Spondylosis without myelopathy Anesthesia: Local The patient was identified in the pre-op area. The procedure, including risks benefits and alternatives was discussed with the patient. The patient agreed to proceed. Informed consent was obtained and the site(s) marked. The patient was brought to the procedure room and placed in the prone positionwith padding under the abdomen to reduce lumbar lordosis. Time out was performed. The back was prepped and draped in sterile fashion with Chloraprep. Skin and subcutaneous tissues were anesthetized with 3 mL of Lidocaine 2% through a 25G needle. 22G spinal needles were then advanced under fluoroscopic guidance to locations of the medial branch (dorsal ramus) nerves to the right L4/5 and L5/S1 facet joints. 0.2 mL of Isovue contrast was injected at each level demonstrating appropriate spread without vascular uptake. After confirmation of negative aspiration, 0.5mL of 0.5% bupivacaine was injected at each level. The needles were removed and bandages applied. The patient was brought to the recovery area in stable condition and then monitored for an appropriate period of time. The patient was discharged home in good condition with post-procedure instructions. No apparent complications. Epidural injection procedure Physical Exam: vital signs Vital Signs 02/28/2023 9:54 EST Heart Rate Monitored 81 bpm SpO2 95 % 02/28/2023 9:53 EST Temperature Axillary 36.4 DegC 02/28/2023 9:53 EST Systolic Blood Pressure 130 mmHg Diastolic Blood Pressure 72 mmHg Mean Arterial Pressure, Monitered 91 mmHg 02/28/2023 9:52 EST Respiratory Rate 14 br/min .NormalFisher Regis Medical CenterComment on above:Result Comment: Electronically Signed By: Faisal BRICENO, Jamey Ramriez.br\Date and Time Signed: 02/28/23 10:34 ESTAlanine aminotransferase [Enzymatic activity/volume] in Serum or PlasmaOrdered By: Erich Gillis on 49-19-6680EFX [Catalytic activity/Vol]49 U/L 7-52[facility] HospitalAlbumin [Mass/volume] in Serum or Plasma by Bromocresol green (BCG) dye binding methoOrdered By: Erich Gillis on 02-18-2023 Albumin BCG dye [Mass/Vol]4.1 g/dL3.5-5.7FSamaritan Hospital Alkaline phosphatase [Enzymatic activity/volume] in Serum or PlasmaOrdered By: Erich Gillis on 47-46-1740KUG [Catalytic activity/Vol]76 U/I89-790JvaqplfohOhiohealth Grady Memorial HospitalAspartate aminotransferase [Enzymatic activity/volume] in Serum or PlasmaOrdered By: Erich Gillis on 02-29-9119TXJ [Catalytic activity/Vol] 43 U/W97-73MmgkycsbqOhiohealth Grady Memorial HospitalBasophils Auto (Bld) [#/Vol]Ordered By: Erich Gillis on 23-52-8038Jrtjvuwpy (Bld) [#/Vol]0.1 10*3/uL0.0-0.2FSamaritan HospitalBasophils/100 WBC Auto (Bld)Ordered By: Erich Gillis on 24-09-6014Xbsyzvymy/100 WBC (Bld)0.7 %.[facility] Bilirubin.total [Mass/volume] in Serum or PlasmaOrdered By: Erich Gillis on 55-14-2965Tvshyhhxs [Mass/Vol]0.4 mg/dL0.3-1.0[facility] Calcium [Mass/volume] in Serum or PlasmaOrdered By: Erich Gillis on 02-18-2023 Calcium [Mass/Vol]9.8 mg/dL8.6-10.3FSamaritan HospitalCarbon dioxide, total [Moles/volume] in Serum or PlasmaOrdered By: Erich Gillis on 40-19-4704PV5 [Moles/Vol]29.4 mmol/L21.0-31.0[facility] Chloride [Moles/volume] in Serum or PlasmaOrdered By: Erich Gillis on 02-18-2023 Chloride [Moles/Vol]104 mmol/S41-879BezigjkaeOhiohealth Grady Memorial HospitalCreatinine [Mass/volume] in Serum or PlasmaOrdered By: Erich Gillis on 01-25-7954Xoyoevmjro [Mass/Vol]1.25 mg/dL0.60-1.20[facility] HospitalEosinophils Auto (Bld) [#/Vol]Ordered By: Erich Gillis on 92-39-6916Gbbflymwqbb (Bld) [#/Vol]0.1 10*3/uL0.0-0.45[facility] HospitalEosinophils/100 WBC Auto (Bld) Ordered By: Erich Gillis on 12-19-7308Jdyovksztrf/100 WBC (Bld)0.8 %.[facility] HospitalErythrocyte distribution width Auto (RBC) [Ratio]Ordered By: Erich Gillis on 94-25-7961Accrcxojyli distribution width (RBC) [Ratio]13.8 % 11.9-15.3FSamaritan HospitalGlobulin Calc (S) [Mass/Vol]Ordered By: Erich Gillis 41-88-3260Ruqcmptz (S) [Mass/Vol]2.3 g/dLOhiohealth Grady Memorial HospitalGlucose [Mass/volume] in Serum or PlasmaOrdered By: Erich Gillis 23-74-1723Tdbfyzl [Mass/Vol]149 mg/tY08-316HvtylhmxhOhiohealth Grady Memorial Hospital Comment on above:ADA recommended reference rangeRandom Glucose Reference Range is dependent on time and content of last meal. Glucose of more than 200 mg/dL in a nonstressed, ambulatory subject supports the diagnosisof Diabetes Mellitus. Hematocrit Auto (Bld) [Volume fraction]Ordered By: Erich Gillis on 02-18-2023 Hematocrit (Bld) [Volume fraction]41.7 %34.0-46.4FSamaritan HospitalHemoglobin [Mass/volume] in BloodOrdered By: Erich Gillis on 02-18-2023 Hemoglobin (Bld) [Mass/Vol]13.8 g/dL11.8-15.4FSamaritan Hospital Leukocytes [#/volume] corrected for nucleated erythrocytes in Blood by Automated counOrdered By: Erich Gillis on 76-84-1874PSH corrected for nucl RBC Auto (Bld) [#/Vol]10.5 10*3/uL3.8-11.6FSamaritan HospitalLymphocytes Auto (Bld) [#/Vol]Ordered By: Erich Gillis on 07-01-7622Xfotzzbshpx (Bld) [#/Vol]1.7 10*3/uL1.00-4.8[facility] HospitalLymphocytes/100 WBC Auto (Bld) Ordered By: Erich Gillis on 56-73-5123Dcepfoqrbob/100 WBC (Bld)16.5 %.[facility]H Auto (RBC) [Entitic mass]Ordered By: Erich Gillis on 14-29-4653WMC (RBC) [Entitic mass]30.9 pg24.7-34.3FSamaritan HospitalMCHC Auto (RBC) [Mass/Vol]Ordered By: Erich Gillis on 26-38-8489UZRU (RBC) [Mass/Vol]33.2 g/dL32.0-35.0[facility] HospitalMCV Auto (RBC) [Entitic vol]Ordered By: Erich Gillis on 74-59-6949VUD (RBC) [Entitic vol]93.1 fL 80-100[facility] HospitalMonocytes Auto (Bld) [#/Vol]Ordered By: Erich Gillis on 57-26-9595Bvayeodof (Bld) [#/Vol]0.9 10*3/uL0.0-0.8[facility] HospitalMonocytes/100 WBC Auto (Bld)Ordered By: Erich Gillis on 57-22-6703Sainwoddw/100 WBC (Bld)8.4 %.[facility] Neutrophils Auto (Bld) [#/Vol]Ordered By: Erich Gillis on 36-75-7841Kvuuipcokzu (Bld) [#/Vol]7.7 10*3/uL1.8-7.7FSamaritan HospitalNeutrophils/100 WBC Auto (Bld)Ordered By: Erich Gillis on 45-12-7949Hmgjjtsrsxk/100 WBC (Bld)73.6 %.[facility] HospitalNo Panel InformationOrdered By: Erich Gillis on 12-26-0486Qkkwkwqzh GFR (CKD-EPI)44.949 mL/MinOhiohealth Grady Memorial Hospital Pharmacy Creatinine Clearance (ChemN/AFSamaritan HospitalNucleated erythrocytes [Presence] in Blood by Automated countOrdered By: Erich Gillis on 58-71-1286Libyylemk RBC Auto Ql (Bld)0.0 /100{WBC}0-0.5FSamaritan HospitalPlatelet mean volume Auto (Bld) [Entitic vol]Ordered By: Erich Gillis on 66-27-3585Lxjsdjsz mean volume (Bld) [Entitic vol]8.6 fL6.3-10.7 [facility] HospitalPlatelets Auto (Bld) [#/Vol]Ordered By: Erich Gillis on 30-49-7739Iuaoosyvp (Bld) [#/Vol]314 10*3/dO563-018YfckdihomOhiohealth Grady Memorial HospitalPotassium [Moles/volume] in Serum or PlasmaOrdered By: Erich Gillis on 67-41-5147Dpgbvprtt [Moles/Vol]4.2 mmol/L3.5-5.1FSamaritan HospitalProtein [Mass/volume] in Serum or PlasmaOrdered By: Erich Gillis on 47-73-8332Hnmswfn [Mass/Vol]6.4 g/dL6.4-8.9[facility] HospitalRBC Auto (Bld) [#/Vol]Ordered By: Erich Gillis on 70-07-9532ZUO (Bld) [#/Vol]4.47 10*6/uL3.60-5.00[facility] Hospitalerum or plasma albumin/globulin mass ratioOrdered By: Erich Gillis on 48-55-2004Oimmvrf/Globulin [Mass ratio]1.8 {ratio}[facility] Hospitalerum or plasma anion gap determinationOrdered By: Erich Gillis on 55-94-6267Idydu gap [Moles/Vol]11.8 mmol/L6.0-15.0[facility] Hospitalodium [Moles/volume] in Serum or PlasmaOrdered By: Erich Gillis on 64-08-1187Fqikov [Moles/Vol]141 mmol/M273-293 [facility] HospitalUrea nitrogen [Mass/volume] in Serum or Plasma Ordered By: Erich Gillis on 52-06-0644Zhjz nitrogen [Mass/Vol]23 mg/dL7-25 [facility] HospitalWBC Auto (Bld) [#/Vol]Ordered By: Erich Gillis on 20-41-5977DKL (Bld) [#/Vol]10.5 10*3/uL3.8-11.6FSamaritan HospitalCOVID + FLU Quick Testingon 38-54-5666OKHX-CoV-2 (COVID-19) RNA HANNAH+probe Ql (Unsp spec)NegativeShayne Foods Other COVID + FLU Quick TestingNegativeNoShayne Foods Other Quick Strepon 02-14-2023S. pyogenes Org specific cx Ql (Throat)NegativeShayne Foods Other Quick StrepPodTech Other RSVon 07-16-0634QBF Ag IA Ql (Unsp spec)NegativeShayne Foods Other Ambulatory Visit Summaryon 95-91-7774Ddsfugqhfs Visit Summary HOLA DOUGLAS :1945 Visit Date:02/08/2023 Ambulatory Visit Instructions Your Diagnosis Urethral stricture Hesitancy Nocturia Mixed incontinence Tests Performed Urnls Dip Stick Auto w/o Microscopy POC 77521 Your Care Team Attending Physician - HIRO BRICENO, Ryan Holland Primary Care Physician - ERICH GILLIS DO This Is Your Medications List Contact prescribing physician if questions or concerns Non-Formulary Medication (Astaline) Non-Formulary Medication (pain medication) calcium carbonate (calcium (as carbonate) 600 mg oral tablet) calcium-vitamin D (Calcium 600+D) citalopram (Celexa) clonazepam (ClonazePAM 0.5 mg Tab) ergocalciferol (Vitamin D) fludrocortisone (fludrocortisone 0.1 mg Tab) gabapentin loratadine (Claritin) multivitamin with minerals (Multivitamins and Minerals) rosuvastatin (rosuvastatin 5 mg Tab) semaglutide (Ozempic 2 mg/1.5 mL (0.25 mg or 0.5 mg dose) subcutaneous solution) semaglutide (Ozempic 2 mg/3 mL (0.25 mg or 0.5 mg dose) subcutaneous solution) Procedures Performed Left wrist (11/2022), Injection of sacroiliac joint using fluoroscopic guidance (11/08/2022), Trigger point (08/12/2022), Epidural injection of lumbar spine using fluoroscopic guidance (12/07/2021), Left hip (06/15/2021), UD - Urethral dilatation (03/27/2020), UD - Urethral dilatation (09/01/2018),UD - Urethral dilatation (11/28/2017), Cystoscope (02/07/2017), Carpal tunnel, Closed fracture of left foot, Injection of facet joint using fluoroscopic guidance. Discharge Vitals Blood Pressure 124/78 Height 172 cm Height 68 in Weight 78.6 kg Weight 172.92 lb BMI 26.57 What to do next Scheduled Follow-Up Appointments Tuesday 11:00 AM EST With: Where: [facility] Tuesday 11:15 AM EST With: Kristie Saavedra PA-C Where: [facility] Tuesday 8:45 AM EDT With: Ryan LIVE MD Where: [facility] Education 01-63-3488Eayfnxy EducationUrology Urethral Stricture Urethral stricture is narrowing of the tube (urethra) that carries urine from the bladder out of the body. The urethra can become narrow due to scar tissue from an injury or infection. This can make it difficult to pass urine. In women, the urethra opens above the vaginal opening. In men, the urethra opens at the tip of the penis, and the urethra is much longer than it is in women. Because of the length of the male urethra, urethral stricture is much more common in men. This condition is treated with surgery. What are the causes? In both men and women, common causes of urethral stricture include: ? Urinary tract infection (UTI). ? Sexually transmitted infection (STI). ? Use of a tube placed into the urethra to drain urine from the bladder (urinary catheter). ? Urinary tract surgery. In men, common causes of urethral stricture include: ? A severe injury to the pelvis. ? Prostate surgery. ? Injury to the penis. In many cases, the cause of urethral stricture is not known. What increases the risk? You are more likely to develop this condition if you: ? Are male. Men who have had prostate surgery are at risk of developing this condition. ? Use a urinary catheter. ? Have had urinary tract surgery. What are the signs or symptoms? The main symptom of this condition is difficulty passing urine. This may cause decreased urine flow, dribbling, or spraying of urine. Other symptom of this condition may include: ? Frequent UTIs. ? Blood in the urine. ? Pain when urinating. ? Swelling of the penis in men. ? Inability to pass urine (urinary obstruction). How is this diagnosed? This condition may be diagnosed based on: ? Your medical history and a physical exam. ? Urine tests to check for infection or bleeding. ? X-rays. ? Ultrasound. ? Retrograde urethrogram. This is a type of test in which dye is injected into the urethra and thenan X-ray is taken. ? Urethroscopy. This is when a thin tube with a light and camera on the end (urethroscope) is used to look at the urethra. How is this treated? This condition is treated with surgery. The type of surgery that you have depends on the severity of your condition. You may have: ? Urethral dilation. In this procedure, the narrow part of the urethra is stretched open (dilated) with dilating instruments or a small balloon. ? Urethrotomy. In this procedure, a urethroscope is placed into the urethra, and the narrow part ofthe urethra is cut open with a surgical blade inserted through the urethroscope. ? Open surgery. In this procedure, an incision is made in the urethra, the narrow part is removed, and the urethra is reconstructed. Follow these instructions at home: ? Take umtg-cnt-zvjrurn and prescription medicines only as told by your health care provider. ? If you were prescribed an antibiotic medicine, take it as told by your health care provider. Do not stop taking the antibiotic even if you start to feel better. ? Drink enough fluid to keep your urine pale yellow. ? Keep all follow-up visits as told by your health care provider. This is important. Contact a health care provider if: ? You have signs of a urinary tract infection, such as: ? Frequent urination or passing small amounts of urine frequently. ? Needing to urinate urgently. ? Pain or burning with urination. ? Urine that smells bad or unusual. ? Cloudy urine. ? Pain in the lower abdomen or back. ? Trouble urinating. ? Blood in the urine. ? Vomiting or being less hungry than normal. ? Diarrhea or abdominal pain. ? Vaginal discharge, if you are female. ? Your symptoms are getting worse instead of better. Get help right away if: ? You cannot pass urine. ? You have a fever. ? You have swelling, bruising, or discoloration of your genital area. This includes the penis, scrotum, and inner thighs for men, and the outer genital organs (vulva) and inner thighs for women. ? You develop swelling in your legs. ? You have difficulty breathing. Summary ? Urethral stricture is narrowing of the tube (urethra) that carries urine from the bladder out of the body. The urethra can become narrow due to scar tissue from an injury or infection. ? This condition can make it difficult to pass urine. ? This condition is treated with surgery. The type of surgery that you have depends on the severityof your condition. ? Contact a health care provider if your symptoms get worse or you have signs of a urinary tract infection. This information is not intended to replace advice given to you by your health care provider. Make sure you discuss any questions you have with your health care provider. Document Revised: 02/02/2022 Document Reviewed: 02/02/2022 Elsevier Patient Education ? 2022 [employer] Urology Office/Clinic Noteon [id number] Office/Clinic NoteChief Complaint 1 year F/U HPI Staff Hola is a 77 y.o. female here for 1 year follow up to a Cysto/UD done on 01/12/22. This procedurehelped alot Previous Dx: hesitancy, mixed incontinence, nocturia, urethral stricture, urgency of urination, weak urine stream. S/P IO UD done on 01/12/22. Cystoscopy was scheduled in August but had to be canceled because she got COVID Dysuria: denies Incomplete bladder emptying: no Hematuria: denies visible blood Frequency: every hour Urgency: not always Nocturia: 4x nighty last night it is usually 2-3 times nightly Stream: yes hesitation, weaker stream, start and stop stream Leaking: denies Post void dripping: yes Wearing pads/ Depends: once and awhile she puts liner on for security Urge incontinence: denies Stress incontinence: yes all the time, sneezing and coughing Incontinence without Sensory Awareness: denies Abdominal pain: denies Flank pain: denies Sexual complaints: denies History of Present Illness Tests reviewed: reviewed UA I have reviewed the previous health record information and history for this patient from . I have reviewed and verified the staff HPI to be accurate for this encounter. There have been no associated fever, chills, flank pain, or blood in the urine. Denies any urinary infections since last encounter. Review of Systems PHQ Score Initial Depression Screen Score: 0 ROS - Provider Constitutional: denies weight loss, denies hot flashes. Eyes: denies eye problems. Gastrointestinal: denies nausea, denies vomiting. Cardiovascular: denies chest pain or angina. Integumentary: no dryness Musculoskeletal: denies musculoskeletal symptoms. ENMT: denies otolaryngeal symptoms. Respiratory: no shortness of breath. Heme/Lymph: denies easy bleeding tendency, denies easy bruising tendency. Psychiatric: no confusion, no anxiety. Genitourinary: See HPI. Physical Exam Vitals & Measurements BP: 124/78 HT: 68 in HT: 172 cm WT: 78.6 kg WT: 172.92 lb BMI: 26.57 General Appearance: alert , no acute distress, well nourished, well developed female. Genitourinary: bladder nonpalpable, no flank pain. Procedure Operative Information Anesthesia Type: Local Procedure: Local Urethral Dilation Complications: None Surgical risks, benefits, details of the procedure have been explained to the patient. Full informed consent has been obtained. Intraoperative Information Prepped: Patient is brought back to the endoscopy suite. Patient is placed in _ position. Patient prepped in the usual fashion with Betadine solution. 2% Xylocaine Jelly is placed per Urethra. The Urethra is: Tight The Urethra was dilated to: 16-30 Gibraltarian with sounds. Specimens Removed: None Postoperative Information Patient is discharged home. Follow up arranged. Assessment/Plan 1. Urethral stricture (N35.919: Unspecified urethral stricture, male, unspecified site) S/p UD 09/01/18 S/p UD 03/27/20 S/p UD 01/12/23 Pt was to have a cysto/UD done in August, appt got canceled due to COVID. Pt states that she has bothersome urinary sxs again and would like to get a UD done again. Advised pt that we can do an IO UD today if she owuld like. Pt states that she would like to do this. Risks discussed including bleeding and infection. She wanted to proceed. Pt had IO UD done today w/o complications. Follow up in 6 mos. All questions/concerns were discussed. Pt to call the office if she encounters any issues prior. Pt acknowledges understanding. 2. Hesitancy (R39.11: Hesitancy of micturition) Pt states this is getting progressively worse. 3. Nocturia (R35.1: Nocturia) mild 4. Mixed incontinence (N39.46: Mixed incontinence) -See #1 symptoms ongoing. Not bad enough to necessitate medical management regarding this. Follow-up With When Contact Information HIRO BRICENO, Ryan P, URL In [address] [place] [address]- Additional Instructions: Patient Education Urethral Stricture I, Yuliana Alexander, personally scribed for Dr. Live on 02/08/2023 11:15:57. . Documentation recorded by the scribeYuliana, accurately reflects the services(s) I performed and decisions made by me. Authenticated by Dr. Live on 02/08/2023 12:52:31. Portions of this record may have been created with voice recognition artificial intelligence software, specifically [employer], Dragon Express and or Dragon Ambient Experience. Substitutions may have occurred due to the inherent limitations of voice recognition and artificial intelligence software. Problem List/Past Medical History Ongoing At risk for falls Hesitancy Mixed incontinence Nocturia Urethral stricture Urgency of urination Weak urine stream Historical Colonoscopy Hysterectomy Lumpectomy of breast Procedure/Surgical History Left wrist (11/2022), Injection of sacroiliac joint u (more content not included)...[facility] CenterComment on above:Result Comment: Electronically Signed By: Ryan LIVE MD\.br\Date and Time Signed: 02/08/23 12:53 EDT\.br\Electronically Co-Signed By: Yuliana Alexander\.br\Date and Time Co-Signed: 02/08/23 11:16 EDTPatient Correspondenceon 31-55-4625Usmywql [id number]#1.00TIFFNoPremier Health Miami Valley HospitalXR hand LT min 3V*on 37-17-7944PX hand LT min 3V*[facility] [employer] Other XR hand LT min 3V*[facility] [employer] Other XR hand LT min 3V*[address] [place] [address] [employer] Other XR hand LT min 3V*[place], [place] [address]WrcfvEastern State Hospital [employer] Other XR hand LT min 3V*XRay ReportEastern State Hospital [employer] Other XR hand LT min 3V*SignedWells [employer] Other XR hand LT min 3V*Patient: Hola Douglas MR#: [id number] [employer] Other XR hand LT min 3V*[address] [place] [address] [employer] Other XR hand LT min 3V*: 1945 Acct:[id number] [employer] Other XR hand LT min 3V*Age/Sex: 77 / F ADM Date: 01/21/23 [employer] Other XR hand LT min 3V*Loc: [facility]: [facility]Cas[facility] Other XR hand LT min 3V*Attending Dr: Merary Booth MD [employer] Other XR hand LT min 3V*Copies to: Merary Booth MDWells [employer] Other XR hand LT min 3V*Ordering Provider: Merary Booth MDPlayful Data [employer] Other xr hand LT min 3V*Date of Service: 01/21/23Wells [employer] Other xr hand LT min 3V* XR/XR hand LT min 3V*: [facility] CenterShayne Foods Other XR hand LT min 3V*LEFT HAND - 4 [facility] [employer] Other xr hand LT min 3V*CLINICAL DATA: Follow-up fusion of the fifth finger and first carpal metacarpal jointWells [employer] Other XR hand LT min 3V*COMPARISON: 12/24/2022Wells [employer] Other xr hand LT min 3V*AP, lateral and oblique views were obtained lumbosacral minimal AP view of the thumb. A screw isWells [employer] Other XR hand LT min 3V*again visualized traversing the distal interphalangeal joint of the fifth finger. There are [facility] [employer] Other XR hand LT min 3V*orthopedic franklin at the first carpal metacarpal joint. The postoperative findings are stable.[employer] Other xr hand LT min 3V*There are no acute fractures or dislocation. There are degenerative changes at the remaining distalShayne Foods Other XR hand LT min 3V*interphalangeal joints and mild at the first metacarpal phalangeal joint. There is a bone graftingWells [employer] Other xr hand LT min 3V*donor site at the distal radius. No prominent soft tissue swelling is seen.[employer] Other xr hand LT min 3V* XR/XR hand LT min 3V*[employer] Other XR hand LT min 3V*IMPRESSION:[employer] Other XR hand LT min 3V*SIMILAR POSTOPERATIVE AND DEGENERATIVE CHANGES.[employer] Other xr hand LT min 3V*Impression dictated by: Karina Dalton M.D.01/21/2023 2:22 PMNpark[facility] center [employer] Other xr hand LT min 3V*Dictation Location: [id number] [employer] Other XR hand LT min 3V*Transcribed By: [facility] 01/21/23 [facility] [employer] Other xr hand LT min 3V*Dictated By: Karina Dalton MD 01/21/[address] [place] [address] [employer] Other xr hand LT min 3V*Signed By:[employer] Other xr hand LT min 3V*01/21/[address] [place] [address] [employer] Other MAM SCREENING W Vahid 46-98-1584Hmksouqvj Clinic Glucose Glucometer (BldC) [Mass/Vol]Ordered By: Merary Booth on 11-15-2022 Glucose [Mass/Vol]109 mg/dLOhiohealth Grady Memorial HospitalComment on above: Random Glucose Reference Range is dependent on time and content of last meal. Glucose of more than 200 mg/dL in a nonstressed, ambulatory subject supports the diagnosis of Diabetes Mellitus.CHEMISTRYOrdered By: Dayan Hassan on 11-08-2022 Glucose [Mass/Vol]118 mg/lFFxsc37 - 99 mg/dLDEACONESS HOSPITAL – [place] POC SubsectionPOC Device SN [id number] Interpretation CodeDEACONESS HOSPITAL – [place] POC SubsectionPOC User [id number] Invalid Interpretation CodeDEACONESS HOSPITAL – [place] POC SubsectionPOC UsernameGIES, MELINDAInvalid Interpretation CodeDEACONESS HOSPITAL – [place] POC SubsectionAlanine aminotransferase [Enzymatic activity/volume] in Serum or PlasmaOrdered By: Merary Booth on 92-28-1641PHI [Catalytic activity/Vol]32 U/L7-52[facility] HospitalAlbumin [Mass/volume] in Serum or Plasma by Bromocresol green (BCG) dye binding metho Ordered By: Merary Booth on 97-23-7952Amxqbqu BCG dye [Mass/Vol]4.1 g/dL 3.5-5.7FSamaritan HospitalAlkaline phosphatase [Enzymatic activity/volume] in Serum or PlasmaOrdered By: Merary Booth on 12-31-6037UFI [Catalytic activity/Vol]73 U/M55-451TmxkhheruOhiohealth Grady Memorial HospitalAspartate aminotransferase [Enzymatic activity/volume] in Serum or PlasmaOrdered By: Merary Booth on 97-62-6472DZO [Catalytic activity/Vol]31 U/A04-66OyxhbxyfzOhiohealth Grady Memorial HospitalBasophils Auto (Bld) [#/Vol]Ordered By: Merary Booth on 46-19-5644Sloehdhtf (Bld) [#/Vol]0.1 10*3/uL0.0-0.2FSamaritan HospitalBasophils/100 WBC Auto (Bld)Ordered By: Merary Booth on 11-05-2022 Basophils/100 WBC (Bld)0.9 %.[facility] HospitalBilirubin.total [Mass/volume] in Serum or PlasmaOrdered By: Merary Booth on 11-05-2022 Bilirubin [Mass/Vol]0.5 mg/dL0.3-1.0[facility] HospitalCalcium [Mass/volume] in Serum or PlasmaOrdered By: Merary Booth on 85-68-1115Uarrvyd [Mass/Vol]9.2 mg/dL8.6-10.3FSamaritan HospitalCarbon dioxide, total [Moles/volume] in Serum or PlasmaOrdered By: Merary Booth on 11-05-2022 CO2 [Moles/Vol]29.8 mmol/L21.0-31.0[facility] HospitalChloride [Moles/volume] in Serum or PlasmaOrdered By: Merary Booth on 11-05-2022 Chloride [Moles/Vol]106 mmol/B18-380GeoopjymqOhiohealth Grady Memorial HospitalCreatinine [Mass/volume] in Serum or PlasmaOrdered By: Merary Booth on 11-05-2022 Creatinine [Mass/Vol]1.07 mg/dL0.60-1.20[facility] Eosinophils Auto (Bld) [#/Vol]Ordered By: Merary Booth on 11-05-2022 Eosinophils (Bld) [#/Vol]0.2 10*3/uL0.0-0.45[facility] Eosinophils/100 WBC Auto (Bld)Ordered By: Merary Booth on 11-05-2022 Eosinophils/100 WBC (Bld)3.0 %.[facility] Memorial HospitalErythrocyte distribution width Auto (RBC) [Ratio]Ordered By: Merary Booth on 11-05-2022 Erythrocyte distribution width (RBC) [Ratio]15.0 %11.9-15.3FSamaritan HospitalGlobulin Calc (S) [Mass/Vol]Ordered By: Merary Booth 42-87-5429Aethvsfz (S) [Mass/Vol]2.1 g/dLOhiohealth Grady Memorial Hospital Glucose [Mass/volume] in Serum or PlasmaOrdered By: Merary Booth 11-05-2022 Glucose [Mass/Vol]93 mg/bA10-430XzecdkvchOhiohealth Grady Memorial HospitalHematocrit Auto (Bld) [Volume fraction]Ordered By: Merary Booth on 79-90-0162Uvsxtpokti (Bld) [Volume fraction]38.3 %34.0-46.4FSamaritan HospitalHemoglobin [Mass/volume] in BloodOrdered By: Merary Booth on 85-43-8941Bnnsiqoadg (Bld) [Mass/Vol]12.8 g/dL11.8-15.4FSamaritan HospitalLeukocytes [#/volume] corrected for nucleated erythrocytes in Blood by Automated coun Ordered By: Merary Booth on 08-15-5776OIF corrected for nucl RBC Auto (Bld) [#/Vol]6.8 10*3/uL3.8-11.6FSamaritan HospitalLymphocytes Auto (Bld) [#/Vol]Ordered By: Merary Booth on 21-47-8929Zkizbvmtojc (Bld) [#/Vol] 1.4 10*3/uL1.00-4.8[facility] HospitalLymphocytes/100 WBC Auto (Bld)Ordered By: Merary Booth on 63-02-7359Ldeveebcfun/100 WBC (Bld)20.7 %. [facility] HospitalH Auto (RBC) [Entitic mass]Ordered By: Merary Booth on 54-12-6030COM (RBC) [Entitic mass]31.3 pg24.7-34.3FSamaritan HospitalMCHC Auto (RBC) [Mass/Vol]Ordered By: Merary Booth on 87-68-0685HVRR (RBC) [Mass/Vol]33.3 g/dL32.0-35.0[facility] HospitalMCV Auto (RBC) [Entitic vol]Ordered By: Merary Booth on 22-16-1421UEO (RBC) [Entitic vol]93.9 nG67-234SxvqeoxemOhiohealth Grady Memorial HospitalMonocytes Auto (Bld) [#/Vol]Ordered By: Merary Booth on 66-90-8617Wjmjultlm (Bld) [#/Vol]0.6 10*3/uL0.0-0.8[facility] HospitalMonocytes/100 WBC Auto (Bld) Ordered By: Merary Booth on 64-98-0691Ylppnagsd/100 WBC (Bld)8.7 %.[facility] HospitalNeutrophils Auto (Bld) [#/Vol]Ordered By: Merary Booth on 00-51-0069Lcjadhylejb (Bld) [#/Vol]4.5 10*3/uL1.8-7.7FSamaritan HospitalNeutrophils/100 WBC Auto (Bld)Ordered By: Merary Booth on 82-01-6117Jmhwbegdmve/100 WBC (Bld)66.7 %.[facility] HospitalNo Panel InformationOrdered By: Merary Booth on 40-81-9261Qmavyufxh GFR (CKD-EPI) 54.170 mL/MinOhiohealth Grady Memorial HospitalPharmacy Creatinine Clearance (ChemN/AFSamaritan HospitalNucleated erythrocytes [Presence] in Blood by Automated countOrdered By: Merary Booth on 05-19-5173Pawpivgwa RBC Auto Ql (Bld)0.0 /100{WBC}0-0.5FSamaritan HospitalPlatelet mean volume Auto (Bld) [Entitic vol]Ordered By: Merary Booth on 21-59-2787Dmqncrdo mean volume (Bld) [Entitic vol]8.0 fL6.3-10.7FSamaritan Hospital Platelets Auto (Bld) [#/Vol]Ordered By: Merary Booth on 97-51-0095Ptwrqrzrc (Bld) [#/Vol]261 10*3/sO934-776JbsypgkakOhiohealth Grady Memorial HospitalPotassium [Moles/volume] in Serum or PlasmaOrdered By: Merary Booth on 11-05-2022 Potassium [Moles/Vol]4.2 mmol/L3.5-5.1FSamaritan HospitalProtein [Mass/volume] in Serum or PlasmaOrdered By: Merary Booth on 13-13-3875Yqwccip [Mass/Vol]6.2 g/dL6.4-8.9Ohio[facility] Memorial HospitalRBC Auto (Bld) [#/Vol] Ordered By: Merary Booth on 38-52-8634NPG (Bld) [#/Vol]4.08 10*6/uL3.60-5.00 [facility] Hospitalerum or plasma albumin/globulin mass ratio Ordered By: Merary Booth on 30-80-4303Sksjdgx/Globulin [Mass ratio]2.0 {ratio} [facility] Hospitalerum or plasma anion gap determinationOrdered By: Merary Booth on 74-95-2020Ftonp gap [Moles/Vol]10.4 mmol/L6.0-15.0 [facility] Hospitalodium [Moles/volume] in Serum or PlasmaOrdered By: Merary Booth on 51-89-0955Xrjjss [Moles/Vol]142 mmol/A562-562PgtfsqqvbOhiohealth Grady Memorial HospitalUrea nitrogen [Mass/volume] in Serum or PlasmaOrdered By: Merary Booth on 82-81-1989Cxwu nitrogen [Mass/Vol]16 mg/dL7-25Ohio[facility] HospitalWBC Auto (Bld) [#/Vol]Ordered By: Merary Booth on 06-76-3306JRT (Bld) [#/Vol]6.8 10*3/uL3.8-11.6FSamaritan Hospital XR hand LT min 3V*on 54-33-0994FG hand LT min 3V*[facility] [employer] Other XR hand LT min 3V*[facility] [employer] Other XR hand LT min 3V*[address] [place] [address] [employer] Other XR hand LT min 3V*GALA Bowers [address] [employer] Other XR hand LT min 3V*[facility] [employer] Other XR hand LT min 3V*[facility] [employer] Other XR hand LT min 3V*Patient: Hola Douglas MR#: [id number] [employer] Other XR hand LT min 3V*[address] [place] [address] [employer] Other XR hand LT min 3V*: 1945 Acct:[id number] [employer] Other XR hand LT min 3V*Age/Sex: 77 / F ADM Date: 11/03/22 [employer] Other XR hand LT min 3V*Loc: SOX Room: Type: [facility] [employer] Other XR hand LT min 3V*Attending Dr: Merary Booth MD [facility] [employer] Other XR hand LT min 3V*Copies to: Merary Booth MDEastern State Hospital [employer] Other XR hand LT min 3V*Ordering Provider: Merary Booth MDWells [employer] Other XR hand LT min 3V*Date of Service: 11/03/22[facility] [employer] Other XR hand LT min 3V* XR/XR hand LT min 3V*: Unilateral primary osteoarthritis of [facility] [place] by [facility] [employer] Other XR hand LT min 3V*carpometacarpal [facility] [employer] Other XR hand LT min 3V*XR hand LT min 3V* 11/03/2022 10:40 [facility] [employer] Other XR hand LT min 3V*SIGNS AND SYMPTOMS: Left first carpal metacarpal joint painEastern State Hospital [employer] Other XR hand LT min 3V*PROTOCOL: Frontal, lateral, and oblique radiographs of the left handEastern State Hospital [employer] Other XR hand LT min 3V*COMPARISON: [facility] [employer] Other XR hand LT min 3V*FINDINGS:[facility] [employer] Other XR hand LT min 3V*There is significant degenerative change of the first carpal metacarpal joint space. [facility] [employer] Other XR hand LT min 3V*of degenerative changes are noted in the first metacarpal phalangeal joint space. There isE[facility] [employer] Other XR hand LT min 3V*significant degenerative change with findings suggesting erosive osteoarthritis in the [facility] [employer] Other XR hand LT min 3V*interphalangeal joints diffusely. There is no fracture or dislocation. No significant soft tissueEastern State Hospital [employer] Other XR hand LT min 3V*swelling vascular calcifications are present in the volar soft tissues.[employer] Other XR hand LT min 3V* XR/XR hand LT min 3V*[employer] Other XR hand LT min 3V*IMPRESSION:[employer] Other XR hand LT min 3V*Findings consistent with multifocal erosive osteoarthritis as above.[employer] Other XR hand LT min 3V*No acute bony injury.[employer] Other XR hand LT min 3V*Impression dictated by: Roberto Markham M.D.11/03/2022 2:00 [facility] [employer] Other XR hand LT min 3V*Dictation Location: [address] [employer] Other XR hand LT min 3V*Transcribed By: NATO 11/03/22 [facility] [employer] Other XR hand LT min 3V*Dictated By: Roberto Markham II, MD 11/03/[address] [place] [address] [employer] Other XR hand LT min 3V*Signed By:[employer] Other XR hand LT min 3V*11/03/22 [facility] Other Alanine aminotransferase [Enzymatic activity/volume] in Serum or PlasmaOrdered By: Erich Gillis on 09-03-9774IRF [Catalytic activity/Vol]28 U/L7-52[facility] Memorial HospitalAlbumin [Mass/volume] in Serum or Plasma by Bromocresol green (BCG) dye binding methoOrdered By: Erich Gillis on 69-01-0096Qtjixvb BCG dye [Mass/Vol]4.0 g/dL3.5-5.7FSamaritan HospitalAlkaline phosphatase [Enzymatic activity/volume] in Serum or PlasmaOrdered By: rEich Gillis on 29-87-4036YBZ [Catalytic activity/Vol]72 U/L 34-104Ohio[facility] Memorial HospitalAspartate aminotransferase [Enzymatic activity/volume] in Serum or PlasmaOrdered By: Erich Gillis on 26-54-7146GMP [Catalytic activity/Vol]18 U/X38-89FrpcnorrzOhiohealth Grady Memorial Hospital Bilirubin.total [Mass/volume] in Serum or PlasmaOrdered By: Erich Gillis on 36-58-5548Zbiunoqqx [Mass/Vol]0.6 mg/dL0.3-1.0[facility] Calcium [Mass/volume] in Serum or PlasmaOrdered By: Erich Gillis on 09-20-2022 Calcium [Mass/Vol]8.9 mg/dL8.6-10.3FSamaritan HospitalCarbon dioxide, total [Moles/volume] in Serum or PlasmaOrdered By: Erich Gillis on 95-30-2474OY9 [Moles/Vol]25.7 mmol/L21.0-31.0[facility] Chloride [Moles/volume] in Serum or PlasmaOrdered By: Erich Gillis on 09-20-2022 Chloride [Moles/Vol]106 mmol/S28-321OrbiyfzgmOhiohealth Grady Memorial HospitalCreatinine [Mass/volume] in Serum or PlasmaOrdered By: Erich Gillis 17-42-9279Hhdcnvokdx [Mass/Vol]1.02 mg/dL0.60-1.20[facility] Memorial HospitalGlobulin Calc (S) [Mass/Vol]Ordered By: Erich Gillis on 37-45-8184Sexkttof (S) [Mass/Vol]2.3 g/dL [facility] HospitalGlucose [Mass/volume] in Serum or PlasmaOrdered By: Erich Gillis on 85-42-6143Atssxub [Mass/Vol]127 mg/iD14-368LdfctbzjpOhiohealth Grady Memorial HospitalComment on above:ADA recommended reference rangeRandom Glucose Reference Range is dependent on time and content of last meal. Glucose of more than 200 mg/dL in a nonstressed, ambulatory subject supports the diagnosisof Diabetes Mellitus.Hepatitis B virus surface Ag [Presence] in Serum or Plasma by ImmunoassayOrdered By: Erich Gillis on 97-85-3520MSZ surface Ag IA QlNegative NegativeOhiohealth Grady Memorial HospitalHepatitis C virus IgG Ab [Presence] in Serum or Plasma by ImmunoassayOrdered By: Erich Gillis on 07-64-5136CRO IgG IA Ql Non-ReactiveNon ReactiveOhiohealth Grady Memorial HospitalHepatitis C virus RNA [Units/volume] (viral load) in Serum or Plasma by HANNAH with probOrdered By: Erich Gillis on 17-82-5430IFY RNA HANNAH+probe QnN/[facility] Hepatitis C virus RNA [log units/volume] (viral load) in Serum or Plasma by HANNAH withOrdered By: Erich Gillis on 78-39-0271JVK RNA HANNAH+probe [Log units/Vol]N/A [facility] HospitalNo Panel InformationOrdered By: Erich Gillis on 79-76-2486Sitjdwtux GFR (CKD-EPI)57.371 mL/MinOhiohealth Grady Memorial Hospital Hepatitis A IgM AntibodyNegativeNegativeOhiohealth Grady Memorial Hospital Hepatitis B Core IgM AntibodyNegativeNegativeOhiohealth Grady Memorial Hospital Hepatitis C InterpretationSee comment.[facility] HospitalComment on above:Not infected with HCV unless early or acute infection issuspected (which may be delayed in an immunocompromisedindividual), or other evidence exists to indicate HCVinfection.Performed at: [facility] [id number] Director: Campbell Abrams PhD, Phone: [phone] Hepatitis C RNA QuantitativeN/[facility]Ph[facility] Creatinine Clearance (ChemN/[facility] HospitalPotassium [Moles/volume] in Serum or PlasmaOrdered By: Erich Gillis on 77-29-2841Oxwgxqksq [Moles/Vol]3.7 mmol/L3.5-5.1FSamaritan HospitalProtein [Mass/volume] in Serum or PlasmaOrdered By: Erich Gillis on 65-85-6210Oomcxzj [Mass/Vol]6.3 g/dL6.4-8.9[facility] Hospitalerum or plasma albumin/globulin mass ratioOrdered By: Erich Gillis on 52-80-0078Lmwwiww/Globulin [Mass ratio]1.7 {ratio}[facility] Hospitalerum or plasma anion gap determinationOrdered By: Erich Gillis on 85-33-8373Mpusi gap [Moles/Vol]15.0 mmol/L6.0-15.0[facility] Hospitalodium [Moles/volume] in Serum or PlasmaOrdered By: Erich Gillis on 60-40-4764Nkbfzu [Moles/Vol]143 mmol/L817-043 [facility] HospitalUrea nitrogen [Mass/volume] in Serum or Plasma Ordered By: Erich Gillis on 63-24-0805Trzj nitrogen [Mass/Vol]12 mg/dL7-25 [facility] HospitalAlanine aminotransferase [Enzymatic activity/volume] in Serum or PlasmaOrdered By: Erich Gillis on 24-02-8762DFQ [Catalytic activity/Vol]65 U/L7-52[facility] Memorial HospitalAlbumin [Mass/volume] in Serum or Plasma by Bromocresol green (BCG) dye binding metho Ordered By: Erich Gillis on 23-74-4778Lyojkyv BCG dye [Mass/Vol]3.6 g/dL3.5-5.7 [facility] HospitalAlkaline phosphatase [Enzymatic activity/volume] in Serum or PlasmaOrdered By: Erich Gillis on 48-73-6968ONH [Catalytic activity/Vol]87 U/E64-287AahmrvwyiOhiohealth Grady Memorial HospitalAspartate aminotransferase [Enzymatic activity/volume] in Serum or PlasmaOrdered By: Erich Gillis on 32-26-0663BFV [Catalytic activity/Vol]26 U/G36-13GgwmoeovjOhiohealth Grady Memorial HospitalBasophils Auto (Bld) [#/Vol]Ordered By: Erich Gillis on 09-08-2022 Basophils (Bld) [#/Vol]0.1 10*3/uL0.0-0.2FSamaritan Hospital Basophils/100 WBC Auto (Bld)Ordered By: Erich Gillis on 64-26-3201Ujshpbmfe/100 WBC (Bld)0.7 %.[facility] Memorial HospitalBilirubin.total [Mass/volume] in Serum or PlasmaOrdered By: Erich Gillis on 48-16-9771Xrdbslwbv [Mass/Vol]0.3 mg/dL0.3-1.0[facility] HospitalCalcium [Mass/volume] in Serum or PlasmaOrdered By: Erich Gillis on 46-61-3320Newcdih [Mass/Vol]8.6 mg/dL8.6-10.3 [facility] HospitalCarbon dioxide, total [Moles/volume] in Serum or PlasmaOrdered By: Erich Gillis on 10-57-1310LO0 [Moles/Vol]25.1 mmol/L21.0-31.0 [facility] HospitalChloride [Moles/volume] in Serum or Plasma Ordered By: Erich Gillis on 33-95-9640Cfunqegd [Moles/Vol]107 mmol/L98-107 [facility] HospitalCholesterol [Mass/volume] in Serum or Plasma Ordered By: Erich Gillis on 61-80-5546Jjnnbkwsdns [Mass/Vol]208 mg/yO819-099 [facility] HospitalComment on above:Chol less than 200 mg/dl low riskChol 201-239 mg/dl borderline riskChol 240 mg/dl and greater high risk Cholesterol in LDL Calc [Mass/Vol]Ordered By: Erich Gillis on 09-08-2022 Cholesterol in LDL [Mass/Vol]122 mg/dL0-100[facility] Comment on above:LDL ATP III CLASSIFICATIONLDL less than 100 mg/dL OptimalLDL 100-129 mg/dL Near or above xfkteniFCG740-507 mg/dL Borderline highLDL 160-189 mg/dL HighLDL greater than 189 mg/dL Very highCholesterol in VLDL Calc [Mass/Vol]Ordered By: Erich Gillis on 64-13-2612Ssexzvfdrsa in VLDL [Mass/Vol]44 mg/dLOhiohealth Grady Memorial HospitalCreatinine [Mass/volume] in Serum or PlasmaOrdered By: Erich Gillis on 51-82-5613Xvwajhnohp [Mass/Vol]0.92 mg/dL 0.60-1.20[facility] Memorial HospitalEosinophils Auto (Bld) [#/Vol]Ordered By: Erich Gillis on 26-14-2552Zqhmsmvnttc (Bld) [#/Vol]0.3 10*3/uL0.0-0.45 [facility] HospitalEosinophils/100 WBC Auto (Bld)Ordered By: Erich Gillis on 88-48-6116Dhzbhpsbnxi/100 WBC (Bld)2.7 %.[facility] HospitalErythrocyte distribution width Auto (RBC) [Ratio]Ordered By: Erich Gillis on 01-28-8528Lxfjzpqavbz distribution width (RBC) [Ratio]13.6 %11.9-15.3FSamaritan HospitalGlobulin Calc (S) [Mass/Vol]Ordered By: Erich Gillis on 20-58-3115Qaobeetv (S) [Mass/Vol]2.3 g/dLOhiohealth Grady Memorial Hospital Glucose [Mass/volume] in Serum or PlasmaOrdered By: Erich Gillis on 09-08-2022 Glucose [Mass/Vol]112 mg/fI06-908LxaxwwmzdOhiohealth Grady Memorial HospitalComment on above:ADA recommended reference rangeRandom Glucose Reference Range is dependent on time and content of last meal. Glucose of more than 200 mg/dL in a nonstressed, ambulatory subject supports the diagnosisof Diabetes Mellitus. Glucose mean value [Mass/volume] in Blood Estimated from glycated hemoglobin Ordered By: Erich Gillis on 26-14-9263Ymhluta glucose Estimated from glycated hemoglobin (Bld) [Mass/Vol]146 mg/dLOhiohealth Grady Memorial HospitalHematocrit Auto (Bld) [Volume fraction]Ordered By: Erich Gillis on 88-64-1422Tbaeskzrvj (Bld) [Volume fraction]38.6 %34.0-46.4FSamaritan HospitalHemoglobin A1c percentageOrdered By: Erich Gillis on 45-43-6165BuR0f (Bld) [Mass fraction]6.7 % 4.3-5.6FSamaritan HospitalComment on above:Increased risk for diabetes: 5.7 - 6.4diabetes: >6.4glycemic control for adults with diabetes: &l t;7.0Hemoglobin [Mass/volume] in BloodOrdered By: Erich Gillis on 09-08-2022 Hemoglobin (Bld) [Mass/Vol]12.8 g/dL11.8-15.4FSamaritan Hospital Leukocytes [#/volume] corrected for nucleated erythrocytes in Blood by Automated counOrdered By: Erich Gillis on 62-20-3771VCY corrected for nucl RBC Auto (Bld) [#/Vol]11.5 10*3/uL3.8-11.6FSamaritan HospitalLymphocytes Auto (Bld) [#/Vol]Ordered By: Erich Gillis on 42-81-0804Dfbeqzjgyne (Bld) [#/Vol]1.1 10*3/uL1.00-4.8[facility] Memorial HospitalLymphocytes/100 WBC Auto (Bld) Ordered By: Erich Gillis on 49-59-3857Fsgkkhgbyts/100 WBC (Bld)9.3 %.[facility] HospitalH Auto (RBC) [Entitic mass]Ordered By: Erich Gillis on 99-63-7536RAW (RBC) [Entitic mass]31.2 pg24.7-34.3FSamaritan HospitalMCHC Auto (RBC) [Mass/Vol]Ordered By: Erich Gillis on 51-28-2986THND (RBC) [Mass/Vol]33.2 g/dL32.0-35.0[facility] HospitalMCV Auto (RBC) [Entitic vol]Ordered By: Erich Gillis on 24-38-4967ZPT (RBC) [Entitic vol]94.1 fL 80-100[facility] HospitalMonocytes Auto (Bld) [#/Vol]Ordered By: Erich Gillis on 04-08-2245Jprdtwcjj (Bld) [#/Vol]1.0 10*3/uL0.0-0.8[facility] HospitalMonocytes/100 WBC Auto (Bld)Ordered By: Erich Gillis on 43-21-7500Qywyfnrqm/100 WBC (Bld)8.9 %.[facility] Neutrophils Auto (Bld) [#/Vol]Ordered By: Erich Gillis on 71-92-1047Miofkqlktbl (Bld) [#/Vol]9.0 10*3/uL1.8-7.7FSamaritan HospitalNeutrophils/100 WBC Auto (Bld)Ordered By: Erich Gillis on 39-11-1653Xlbidqozina/100 WBC (Bld)78.4 %.[facility] HospitalNo Panel InformationOrdered By: Erich Gillis on 41-44-7280Zkhvqgyuo GFR (CKD-EPI)> 60.0 mL/MinOhiohealth Grady Memorial Hospital Pharmacy Creatinine Clearance (ChemN/AFSamaritan HospitalNucleated erythrocytes [Presence] in Blood by Automated countOrdered By: Erich Gillis on 78-00-4192Cltmlftek RBC Auto Ql (Bld)0.1 /100{WBC}0-0.5FSamaritan HospitalPlatelet mean volume Auto (Bld) [Entitic vol]Ordered By: Erich Gillis on 82-86-0869Zkkxbhrb mean volume (Bld) [Entitic vol]8.6 fL6.3-10.7 [facility] HospitalPlatelets Auto (Bld) [#/Vol]Ordered By: Erich Gillis on 87-41-3659Dujwkbkzk (Bld) [#/Vol]302 10*3/dJ933-790PsqnymfioOhiohealth Grady Memorial HospitalPotassium [Moles/volume] in Serum or PlasmaOrdered By: Erich Gillis on 35-11-1824Wznorfkob [Moles/Vol]3.7 mmol/L3.5-5.1FSamaritan HospitalProtein [Mass/volume] in Serum or PlasmaOrdered By: Erich Gillis on 21-65-3516Jhlnplv [Mass/Vol]5.9 g/dL6.4-8.9[facility] HospitalRBC Auto (Bld) [#/Vol]Ordered By: Erich Gillis on 88-02-3293HVW (Bld) [#/Vol]4.10 10*6/uL3.60-5.00[facility] Hospitalerum or plasma albumin/globulin mass ratioOrdered By: Erich Gillis on 96-86-0063Lkwwyrp/Globulin [Mass ratio]1.6 {ratio}[facility] Hospitalerum or plasma anion gap determinationOrdered By: Erich Gillis on 80-33-5930Gnyof gap [Moles/Vol]12.6 mmol/L6.0-15.0[facility] Hospitalerum or plasma high density lipoprotein (HDL) cholesterol measurementOrdered By: Erich Gillis on 09-08-2022 Cholesterol in HDL [Mass/Vol]42 mg/qZ07-00MewdsfupmOhiohealth Grady Memorial Hospital Comment on above:HDL CHOL ATP-III CLASSIFICATION Cardiovascular RiskHDL > or equal to 60 mg/dL LOWHDL < 40 mg/dL HIGHSerum or plasma total cholesterol/high density lipoprotein (HDL) cholesterol mass ratOrdered By: Erich Gillis on 21-26-9604Lshedortvtm.total/Cholesterol in HDL [Mass ratio]5.0 {ratio}<5.0 [facility] Hospitalodium [Moles/volume] in Serum or PlasmaOrdered By: Erich Gillis on 80-44-0824Ilqvje [Moles/Vol]141 mmol/A479-711FwqrmklqkOhiohealth Grady Memorial HospitalThyrotropin [Units/volume] in Serum or PlasmaOrdered By: Erich Gillis on 57-68-7420MCG Qn4.72 m[IU]/L0.45-5.33[facility] HospitalTriglyceride [Mass/volume] in Serum or PlasmaOrdered By: Erich Gillis on 10-99-5848Lvbsihiukojn [Mass/Vol]220 mg/dL0-149[facility] Comment on above:TRIG ATP III CLASSIFICATIONTRIG less than 150 mg/dL NormalTRIG 150-199 mg/dL Borderline highTRIG 200-500 mg/dL High TRIG greater than 500 mg/dL Very highStandard traceable to the Center for Disease Conrtrol and Prevention (CDC) test method.Urea nitrogen [Mass/volume] in Serum or PlasmaOrdered By: Erich Gillis on 89-65-6516Jwla nitrogen [Mass/Vol]16 mg/dL7-25[facility] HospitalWBC Auto (Bld) [#/Vol]Ordered By: Erich Gillis on 19-21-2388YAN (Bld) [#/Vol]11.5 10*3/uL3.8-11.6FSamaritan HospitalAlanine aminotransferase [Enzymatic activity/volume] in Serum or PlasmaOrdered By: PROVIDER TEMSkyler on 13-18-0076GJQ [Catalytic activity/Vol]39 U/L7-52[facility] HospitalAlbumin [Mass/volume] in Serum or Plasma by Bromocresol green (BCG) dye binding methoOrdered By: PROVIDER TEMP on 97-67-0298Nuqozfj BCG dye [Mass/Vol]4.2 g/dL3.5-5.7FSamaritan HospitalAlkaline phosphatase [Enzymatic activity/volume] in Serum or PlasmaOrdered By: PROVIDER TEMP on 87-85-7932QLU [Catalytic activity/Vol]71 U/L14-806FfbfwbwzgOhiohealth Grady Memorial HospitalAspartate aminotransferase [Enzymatic activity/volume] in Serum or PlasmaOrdered By: PROVIDER TEMP on 94-27-4265LFE [Catalytic activity/Vol]46 U/L 13-39[facility] HospitalBasophils Auto (Bld) [#/Vol]Ordered By: PROVIDER TEMP on 34-51-8670Rpsvqmwqg (Bld) [#/Vol]0.0 10*3/uL0.0-0.2FSamaritan HospitalBasophils/100 WBC Auto (Bld)Ordered By: PROVIDER TEMP on 27-07-0641Ddswqhvfg/100 WBC (Bld)0.3 %.[facility] Bilirubin.total [Mass/volume] in Serum or PlasmaOrdered By: PROVIDER TEMP on 57-24-6368Bbsxajjpi [Mass/Vol]0.5 mg/dL0.3-1.0[facility] Calcium [Mass/volume] in Serum or PlasmaOrdered By: PROVIDER TEMP on 08-26-2022 Calcium [Mass/Vol]8.9 mg/dL8.6-10.3FSamaritan HospitalCarbon dioxide, total [Moles/volume] in Serum or PlasmaOrdered By: PROVIDER TEMP on 06-16-1126XN5 [Moles/Vol]28.0 mmol/L21.0-31.0[facility] Chloride [Moles/volume] in Serum or PlasmaOrdered By: PROVIDER TEMP on 46-09-6450Gyfdgffg [Moles/Vol]104 mmol/A66-167OwqgpimupOhiohealth Grady Memorial Hospital Creatinine [Mass/volume] in Serum or PlasmaOrdered By: PROVIDER TEMP on 09-83-3309Vxtckpqxwp [Mass/Vol]0.92 mg/dL0.60-1.20[facility] HospitalEosinophils Auto (Bld) [#/Vol]Ordered By: PROVIDER TEMP on 08-26-2022 Eosinophils (Bld) [#/Vol]0.1 10*3/uL0.0-0.45[facility] Eosinophils/100 WBC Auto (Bld)Ordered By: PROVIDER TEMP on 08-26-2022 Eosinophils/100 WBC (Bld)0.7 %.[facility] HospitalErythrocyte distribution width Auto (RBC) [Ratio]Ordered By: PROVIDER TEMP on 08-26-2022 Erythrocyte distribution width (RBC) [Ratio]14.1 %11.9-15.3FSamaritan HospitalGlobulin Calc (S) [Mass/Vol]Ordered By: PROVIDER TEMP on 01-07-5315Mbzsncqm (S) [Mass/Vol]2.9 g/dLOhiohealth Grady Memorial Hospital Glucose [Mass/volume] in Serum or PlasmaOrdered By: PROVIDER TEMP on 08-26-2022 Glucose [Mass/Vol]140 mg/bI43-619ImjciukxjOhiohealth Grady Memorial HospitalComment on above:ADA recommended reference rangeRandom Glucose Reference Range is dependent on time and content of last meal. Glucose of more than 200 mg/dL in a nonstressed, ambulatory subject supports the diagnosisof Diabetes Mellitus. Hematocrit Auto (Bld) [Volume fraction]Ordered By: PROVIDER TEMP on 08-26-2022 Hematocrit (Bld) [Volume fraction]39.0 %34.0-46.4FSamaritan HospitalHemoglobin [Mass/volume] in BloodOrdered By: PROVIDER TEMP on 08-26-2022 Hemoglobin (Bld) [Mass/Vol]13.1 g/dL11.8-15.4FSamaritan Hospital Leukocytes [#/volume] corrected for nucleated erythrocytes in Blood by Automated counOrdered By: PROVIDER TEMP on 98-93-2912BRS corrected for nucl RBC Auto (Bld) [#/Vol]9.5 10*3/uL3.8-11.6FSamaritan HospitalLymphocytes Auto (Bld) [#/Vol]Ordered By: PROVIDER TEMP on 36-54-7822Kgjzhnwinoi (Bld) [#/Vol]0.6 10*3/uL1.00-4.8[facility] HospitalLymphocytes/100 WBC Auto (Bld)Ordered By: PROVIDER TEMP on 88-67-7401Lozadexbfrn/100 WBC (Bld)6.3 %. [facility] HospitalH Auto (RBC) [Entitic mass]Ordered By: PROVIDER TEMP on 45-66-2861SVC (RBC) [Entitic mass]31.7 pg24.7-34.3FSamaritan HospitalMCHC Auto (RBC) [Mass/Vol]Ordered By: PROVIDER TEMP on 98-86-6289KSLW (RBC) [Mass/Vol]33.6 g/dL32.0-35.0[facility] HospitalMCV Auto (RBC) [Entitic vol]Ordered By: PROVIDER TEMP on 70-25-5823LOZ (RBC) [Entitic vol]94.4 vK78-226JnenngdazOhiohealth Grady Memorial HospitalMonocyte distribution width [Entitic volume] in Blood by AutomatedOrdered By: PROVIDER TEMP on 98-50-2261Esqbvdjz distribution width Auto (Bld) [Entitic vol]22.87 % 0.00-20.00[facility] HospitalComment on above:For adults in ED, MDW > 20.0 may be associated with a higher risk of sepsis during the first 12 h rs of hospital admissionMonocytes Auto (Bld) [#/Vol]Ordered By: PROVIDER TEMP on 04-67-7707Kfpvfonoz (Bld) [#/Vol]1.0 10*3/uL0.0-0.8[facility] HospitalMonocytes/100 WBC Auto (Bld)Ordered By: PROVIDER TEMP on 08-26-2022 Monocytes/100 WBC (Bld)10.7 %.[facility] HospitalNeutrophils Auto (Bld) [#/Vol]Ordered By: PROVIDER TEMP on 90-46-6272Ouzxkpniblz (Bld) [#/Vol]7.8 10*3/uL1.8-7.7FSamaritan HospitalNeutrophils/100 WBC Auto (Bld) Ordered By: PROVIDER TEMP on 02-86-1893Cmcotpjckba/100 WBC (Bld)82.0 %.[facility] HospitalNo Panel InformationOrdered By: PROVIDER TEMP on 12-06-6445Pdpjugthw GFR (CKD-EPI)> 60.0 mL/MinOhiohealth Grady Memorial Hospital Pharmacy Creatinine Clearance (Chem53.30[facility] Nucleated erythrocytes [Presence] in Blood by Automated countOrdered By: PROVIDER TEMP on 67-83-2729Ewsfyrvkz RBC Auto Ql (Bld)0.0 /100{WBC}0-0.5 [facility] HospitalPlatelet mean volume Auto (Bld) [Entitic vol] Ordered By: PROVIDER TEMP on 00-94-2623Vdwshklc mean volume (Bld) [Entitic vol] 8.6 fL6.3-10.7FSamaritan HospitalPlatelets Auto (Bld) [#/Vol] Ordered By: PROVIDER TEMP on 48-62-0141Zuplmgubz (Bld) [#/Vol]249 10*3/wS077-330 [facility] HospitalPotassium [Moles/volume] in Serum or Plasma Ordered By: PROVIDER TEMP on 34-61-0840Urgmthebp [Moles/Vol]3.7 mmol/L3.5-5.1 [facility] HospitalProtein [Mass/volume] in Serum or PlasmaOrdered By: PROVIDER TEMP on 56-07-9873Yshlmzh [Mass/Vol]7.1 g/dL6.4-8.9[facility] HospitalRBC Auto (Bld) [#/Vol]Ordered By: PROVIDER TEMP on 20-35-8191FQJ (Bld) [#/Vol]4.13 10*6/uL3.60-5.00[facility] Hospitalerum or plasma albumin/globulin mass ratioOrdered By: PROVIDER TEMP on 47-41-3411Gzatkou/Globulin [Mass ratio]1.4 {ratio}[facility] Hospitalerum or plasma anion gap determinationOrdered By: PROVIDER TEMP on 25-51-0670Msynl gap [Moles/Vol]11.7 mmol/L6.0-15.0[facility] Hospitalodium [Moles/volume] in Serum or PlasmaOrdered By: PROVIDER TEMP on 66-34-0188Wzgitw [Moles/Vol]140 mmol/L768-254JndgvacinOhiohealth Grady Memorial Hospital Urea nitrogen [Mass/volume] in Serum or PlasmaOrdered By: PROVIDER TEMP on 31-71-7758Bgyj nitrogen [Mass/Vol]13 mg/dL7-25[facility] WBC Auto (Bld) [#/Vol]Ordered By: PROVIDER TEMP on 73-72-7883IRZ (Bld) [#/Vol] 9.5 10*3/uL3.8-11.6FSamaritan HospitalAlanine aminotransferase [Enzymatic activity/volume] in Serum or PlasmaOrdered By: Erich Gillis on 69-74-5435BGK [Catalytic activity/Vol]30 U/L7-52[facility] HospitalAlbumin [Mass/volume] in Serum or Plasma by Bromocresol green (BCG) dye binding methoOrdered By: Erich Gillis on 54-81-4236Cakggid BCG dye [Mass/Vol]4.3 g/dL3.5-5.7FSamaritan HospitalAlkaline phosphatase [Enzymatic activity/volume] in Serum or PlasmaOrdered By: Erich Gillis on 59-42-9618QZI [Catalytic activity/Vol]81 U/L30-685GivtxqmwaOhiohealth Grady Memorial HospitalAspartate aminotransferase [Enzymatic activity/volume] in Serum or PlasmaOrdered By: Erich Gillis on 96-26-2236TZF [Catalytic activity/Vol]25 U/U89-22DfqensjylOhiohealth Grady Memorial HospitalBasophils Auto (Bld) [#/Vol]Ordered By: Erich Gillis on 06-24-2022 Basophils (Bld) [#/Vol]0.1 10*3/uL0.0-0.2FSamaritan Hospital Basophils/100 WBC Auto (Bld)Ordered By: Erich Gillis on 16-12-6987Hnbecrrqq/100 WBC (Bld)1.0 %.[facility] HospitalBilirubin.total [Mass/volume] in Serum or PlasmaOrdered By: Erich Gillis on 79-34-1551Znlrtuugh [Mass/Vol]0.5 mg/dL0.3-1.0[facility] HospitalCalcium [Mass/volume] in Serum or PlasmaOrdered By: Erich Gillis on 37-89-6306Tfszwec [Mass/Vol]10.1 mg/dL8.6-10.3 [facility] HospitalCarbon dioxide, total [Moles/volume] in Serum or PlasmaOrdered By: Erich Gillis on 81-72-9376WA8 [Moles/Vol]29.6 mmol/L21.0-31.0 [facility] HospitalChloride [Moles/volume] in Serum or Plasma Ordered By: Erich Gillis on 46-51-1920Sswqtwfp [Moles/Vol]105 mmol/L98-107 [facility] HospitalCholesterol [Mass/volume] in Serum or Plasma Ordered By: Erich Gillis on 66-31-3076Jfvmewmfzdn [Mass/Vol]165 mg/rC772-485 [facility] HospitalComment on above:Chol less than 200 mg/dl low riskChol 201-239 mg/dl borderline riskChol 240 mg/dl and greater high risk Cholesterol in LDL Calc [Mass/Vol]Ordered By: Erich Gillis on 06-24-2022 Cholesterol in LDL [Mass/Vol]88 mg/dL0-100[facility] Comment on above:LDL ATP III CLASSIFICATIONLDL less than 100 mg/dL OptimalLDL 100-129 mg/dL Near or above bunitdwSDJ836-446 mg/dL Borderline highLDL 160-189 mg/dL HighLDL greater than 189 mg/dL Very highCholesterol in VLDL Calc [Mass/Vol]Ordered By: Erich Gillis on 61-65-8464Sgkxvgxunge in VLDL [Mass/Vol]26 mg/dLOhiohealth Grady Memorial HospitalCreatinine [Mass/volume] in Serum or PlasmaOrdered By: Erich Gillis on 48-77-4092Culkurmjjr [Mass/Vol]0.97 mg/dL 0.60-1.20[facility] HospitalEosinophils Auto (Bld) [#/Vol]Ordered By: Erich Gillis on 83-09-0823Onyuomzvdgr (Bld) [#/Vol]0.2 10*3/uL0.0-0.45 [facility] HospitalEosinophils/100 WBC Auto (Bld)Ordered By: Erich Gillis on 71-89-8411Sronfnhpjqe/100 WBC (Bld)2.4 %.[facility] HospitalErythrocyte distribution width Auto (RBC) [Ratio]Ordered By: Erich Gillis on 50-37-3315Yaiyedymiqs distribution width (RBC) [Ratio]14.2 %11.9-15.3FSamaritan HospitalGlobulin Calc (S) [Mass/Vol]Ordered By: Erich Gillis on 90-36-3763Fdmchrxr (S) [Mass/Vol]2.5 g/dLOhiohealth Grady Memorial Hospital Glucose [Mass/volume] in Serum or PlasmaOrdered By: Erich Gillis on 06-24-2022 Glucose [Mass/Vol]84 mg/vI28-895AzohxdhdmOhiohealth Grady Memorial HospitalComment on above:ADA recommended reference rangeRandom Glucose Reference Range is dependent on time and content of last meal. Glucose of more than 200 mg/dL in a nonstressed, ambulatory subject supports the diagnosisof Diabetes Mellitus. Glucose mean value [Mass/volume] in Blood Estimated from glycated hemoglobin Ordered By: Erich Gillis on 97-59-2203Onzixtf glucose Estimated from glycated hemoglobin (Bld) [Mass/Vol]140 mg/dLOhiohealth Grady Memorial HospitalHematocrit Auto (Bld) [Volume fraction]Ordered By: Erich Gillis on 29-25-5822Nnzefycozl (Bld) [Volume fraction]41.1 %34.0-46.4FSamaritan HospitalHemoglobin A1c percentageOrdered By: Erich Gillis on 82-25-7200KzX2b (Bld) [Mass fraction]6.5 % 4.3-5.6FSamaritan HospitalComment on above:Increased risk for diabetes: 5.7 - 6.4diabetes: >6.4glycemic control for adults with diabetes: &l t;7.0Hemoglobin [Mass/volume] in BloodOrdered By: Erich Gillis on 06-24-2022 Hemoglobin (Bld) [Mass/Vol]13.7 g/dL11.8-15.4FSamaritan Hospital Laboratory - Chemistry and Chemistry - challengeOrdered By: Erich Gillis on 30-36-1343JSF/1.73 sq M.predicted MDRD (S/P/Bld) [Vol rate/Area]mL/min/{1.73_m2} [facility] HospitalLeukocytes [#/volume] corrected for nucleated erythrocytes in Blood by Automated counOrdered By: Erich Gillis on 89-64-8776RUZ corrected for nucl RBC Auto (Bld) [#/Vol]9.4 10*3/uL3.8-11.6FSamaritan HospitalLymphocytes Auto (Bld) [#/Vol]Ordered By: Erich Gillis on 06-24-2022 Lymphocytes (Bld) [#/Vol]2.0 10*3/uL1.00-4.8[facility] Lymphocytes/100 WBC Auto (Bld)Ordered By: Erich Gillis on 06-24-2022 Lymphocytes/100 WBC (Bld)20.7 %.[facility] HospitalH Auto (RBC) [Entitic mass]Ordered By: Erich Gillis on 92-12-2088EPC (RBC) [Entitic mass]31.5 pg24.7-34.3FSamaritan HospitalMCHC Auto (RBC) [Mass/Vol]Ordered By: Erich Gillis on 56-15-4050QXYK (RBC) [Mass/Vol]33.4 g/dL32.0-35.0[facility] HospitalMCV Auto (RBC) [Entitic vol]Ordered By: Erich Gillis on 03-05-5513QGU (RBC) [Entitic vol]94.2 sN58-826OxzebohatOhiohealth Grady Memorial Hospital Monocytes Auto (Bld) [#/Vol]Ordered By: Erich Gillis on 25-82-7967Wijoxdcnd (Bld) [#/Vol]0.8 10*3/uL0.0-0.8[facility] HospitalMonocytes/100 WBC Auto (Bld)Ordered By: Erich Gillis on 51-12-7617Ckuueihcn/100 WBC (Bld)8.0 %.[facility] HospitalNeutrophils Auto (Bld) [#/Vol]Ordered By: Erich Gillis on 04-62-0465Agdimecqsbp (Bld) [#/Vol]6.4 10*3/uL1.8-7.7FSamaritan HospitalNeutrophils/100 WBC Auto (Bld)Ordered By: Erich Gillis on 06-24-2022 Neutrophils/100 WBC (Bld)67.9 %.[facility] HospitalNo Panel InformationOrdered By: Erich Gillis on 97-49-1652Ihfmvfjc Creatinine Clearance (ChemN/AFSamaritan HospitalNucleated erythrocytes [Presence] in Blood by Automated countOrdered By: Erich Gillis on 80-91-4425Kspofzkia RBC Auto Ql (Bld)0.3 /100{WBC}0-0.5FSamaritan HospitalPlatelet mean volume Auto (Bld) [Entitic vol]Ordered By: Erich Gillis on 28-89-9855Gezcdrkx mean volume (Bld) [Entitic vol]7.9 fL6.3-10.7FSamaritan HospitalPlatelets Auto (Bld) [#/Vol]Ordered By: Erich Gillis on 60-86-8823Paofbnyea (Bld) [#/Vol]314 10*3/vG073-610ZrhetmylgOhiohealth Grady Memorial HospitalPotassium [Moles/volume] in Serum or PlasmaOrdered By: Erich Gillis on 44-42-3041Alsuiwlpe [Moles/Vol]4.6 mmol/L 3.5-5.1FSamaritan HospitalProtein [Mass/volume] in Serum or Plasma Ordered By: Erich Gillis on 34-65-8156Ynricbg [Mass/Vol]6.8 g/dL6.4-8.9[facility] HospitalRBC Auto (Bld) [#/Vol]Ordered By: Erich Gillis on 88-10-8235DQU (Bld) [#/Vol]4.36 10*6/uL3.60-5.00[facility] Hospitalerum or plasma albumin/globulin mass ratioOrdered By: Erich Gillis on 56-14-9453Uaijcpk/Globulin [Mass ratio]1.7 {ratio}[facility] Hospitalerum or plasma anion gap determinationOrdered By: Erich Gillis on 84-67-0332Qpaiv gap [Moles/Vol]13.0 mmol/L6.0-15.0[facility] Hospitalerum or plasma high density lipoprotein (HDL) cholesterol measurement Ordered By: Erich Gillis on 40-15-6232Pbhnaryldsd in HDL [Mass/Vol]51 mg/dL35-85 [facility] HospitalComment on above:HDL CHOL ATP-III CLASSIFICATION Cardiovascular RiskHDL > or equal to 60 mg/dL LOWHDL < 40 mg/dL HIGHSerum or plasma total cholesterol/high density lipoprotein (HDL) cholesterol mass ratOrdered By: Erich Gillis on 53-67-7247Liiskfivdxg.total/Cholesterol in HDL [Mass ratio]3.2 {ratio}<5.0[facility] Hospitalodium [Moles/volume] in Serum or PlasmaOrdered By: Erich Gillis on 73-45-7099Nqshfh [Moles/Vol]143 mmol/U533-224JdibewlkfOhiohealth Grady Memorial HospitalThyrotropin [Units/volume] in Serum or PlasmaOrdered By: Erich Gillis on 16-99-7928IUU Qn2.41 m[IU]/L0.45-5.33[facility] HospitalTriglyceride [Mass/volume] in Serum or PlasmaOrdered By: Erich Gillis on 80-97-4644Sgnkufdxphcj [Mass/Vol]130 mg/dL0-149[facility] HospitalComment on above:TRIG ATP III CLASSIFICATIONTRIG less than 150 mg/dL NormalTRIG 150-199 mg/dL Borderline highTRIG 200-500 mg/dL High TRIG greater than 500 mg/dL Very highStandard traceable to the Center for Disease Conrtrol and Prevention (CDC) test method. Urea nitrogen [Mass/volume] in Serum or PlasmaOrdered By: Erich Gillis on 10-24-5445Efkx nitrogen [Mass/Vol]19 mg/dL7-25[facility] WBC Auto (Bld) [#/Vol]Ordered By: Erich Gillis on 35-11-6009IPA (Bld) [#/Vol]9.4 10*3/uL3.8-11.6FSamaritan HospitalBasophils Auto (Bld) [#/Vol] Ordered By: Erich Gillis on 42-50-3504Fiujtkzzy (Bld) [#/Vol]0.1 10*3/uL0.0-0.2 [facility] HospitalBasophils/100 WBC Auto (Bld)Ordered By: Erich Gillis on 58-77-9144Njvgmhaxl/100 WBC (Bld)0.7 %.[facility] Body fluid albumin measurement (mass/volume)Ordered By: Erich Gillis on 05-10-2022 Albumin (Body fld) [Mass/Vol]4.0 g/dL3.2-5.5FSamaritan Hospital COVID + FLU Quick Testingon 89-17-9448GRYG-CoV-2 (COVID-19) RNA HANNAH+probe Ql (Unsp spec)NegativeWells [employer] Other COVID + FLU Quick TestingNegativeSaint Mary'S Hospital Of Blue SpringsArrayComm Other Complete Blood Count Auto Diffon 59-86-8686Fghfhhsmb (Bld) [#/Vol]0.207812638 10*3/uLNormal0.0-0.2 10*3/[employer] Other Basophils/100 WBC (Bld)0.700 %. %[employer] Other Eosinophils (Bld) [#/Vol]0.386724429 10*3/uLNormal0.0- 0.45 10*3/[employer] Other Eosinophils/100 WBC (Bld)3.500 %. %[employer] Other Erythrocyte distribution width (RBC) [Ratio]13.900 % Sizzjn55.9-15.3 %[employer] Other Hematocrit (Bld) [Volume fraction]43.800 %Vyqjzg59.0- 46.4 %[employer] Other Hemoglobin (Bld) [Mass/Vol]14.603507 g/eLScyruw94.8- 15.4 g/dLNoShayne Foods Other Lymphocytes (Bld) [#/Vol]1.420859443 10*3/uLNormal 1.00-4.8 10*3/[employer] Other Lymphocytes/100 WBC (Bld)20.700 %. %[employer] Other MCH (RBC) [Entitic mass]30.9000 qsTydxrg45.7-34.3 pg [employer] Other MCV (RBC) [Entitic vol]93.8000 lEThfeye92-732 MOPod[employer] Other Monocytes (Bld) [#/Vol]0.707927725 10*3/uLNormal0.0- 0.8 10*3/[employer] Other Monocytes/100 WBC (Bld)9.500 %. %[employer] Other Neutrophils (Bld) [#/Vol]5.159568986 10*3/uLNormal1.8- 7.7 10*3/[employer] Other Neutrophils/100 WBC (Bld)65.600 %. %[employer] Other Platelet mean volume (Bld) [Entitic vol]8.4000 fL Normal6.3-10.7 [facility] Children's HospitalShayne Foods Other WBC (Bld) [#/Vol]8.746099714 10*3/uLNormal3.8-11.6 10*3/[employer] Other Complete Blood Count Auto Diff8.3 10*3/uLNormal3.8- 11.6 10*3/[employer] Other Complete Blood Count Auto Diff33.0 g/uFRroplh15.0-35.0 g/dLPodTech Other Complete Blood Count Auto Diff0.1 /100{WBC}Normal0-0.5 /100{WBC}[facility] [employer] Other Comprehensive Metabolic Panelon 96-41-9215Jgmkqii [Mass/Vol]4.144438 g/dLNormal3.2-5.5 g/dLWells [employer] Other ALT [Catalytic activity/Vol]44 U/QEqolua29-51 U/LNparkland health center [employer] Other Bilirubin [Mass/Vol]0.3655228 mg/dLNormal0.3-1.2 mg/dL [facility] [employer] Other Calcium [Mass/Vol]9.5316119 mg/dLNormal8.2-10.2 mg/dL [facility] [employer] Other CO2 [Moles/Vol]24.33805799 mmol/GYipthe76.0-30.0 mmol/LNparkland health center [employer] Other Creatinine [Mass/Vol]1.46822938 mg/dLHigh0.44-1.03 mg/dLWells [employer] Other Potassium [Moles/Vol]4.34825853 mmol/LNormal3.5-5.1 mmol/LNparkland health center [employer] Other Protein [Mass/Vol]7.549064 g/dLNormal6.1-7.9 g/dLWells [employer] Other Comprehensive Metabolic Ahwao76Fphei [employer] Other Comprehensive Metabolic Mehwr70Oshzs [employer] Other Comprehensive Metabolic Panel3.0 g/dLWells [employer] Other Creatinine and Glomerular filtration rate.predicted panel (S/P/Bld)Ordered By: Erich Gillis on 44-91-4332Ywgfzftwnf [Mass/Vol]1.18 mg/dL0.44-1.03[facility] HospitalEosinophils Auto (Bld) [#/Vol] Ordered By: Erich Gillis on 87-01-5221Cuaacleakcr (Bld) [#/Vol]0.3 10*3/uL0.0-0.45 [facility] HospitalEosinophils/100 WBC Auto (Bld)Ordered By: Erich Gillis on 17-94-6799Sjkcdiutqll/100 WBC (Bld)3.5 %.[facility] HospitalErythrocyte distribution width Auto (RBC) [Ratio]Ordered By: Erich Gillis on 74-01-9337Uneaqywltek distribution width (RBC) [Ratio]13.9 %11.9-15.3FSamaritan HospitalErythrocytes [#/volume] in Blood by Automated count Ordered By: Erich Gillis on 90-47-2774IVB (Bld) [#/Vol]4.67 10*6/uL3.60-5.00 [facility] HospitalEstimated glomerular filtration rate (GFR) non- AmericanOrdered By: Erich Gillis on 15-69-3690FNN/1.73 sq M.predicted among non-blacks MDRD (S/P/Bld) [Vol rate/Area]45 mL/MinOhiohealth Grady Memorial HospitalGlobulin Calc (S) [Mass/Vol]Ordered By: Erich Gillis on 05-10-2022 Globulin (S) [Mass/Vol]3.0 g/dLOhiohealth Grady Memorial HospitalHematocrit Auto (Bld) [Volume fraction]Ordered By: Erich Gillis on 13-77-2550Lxqhppxatu (Bld) [Volume fraction]43.8 %34.0-46.4FSamaritan HospitalHemoglobin [Mass/volume] in BloodOrdered By: Erich Gillis on 71-81-4406Adinukzome (Bld) [Mass/Vol]14.4 g/dL11.8-15.4FSamaritan HospitalLeukocytes [#/volume] corrected for nucleated erythrocytes in Blood by Automated coun Ordered By: Erich Gillis on 49-44-1824VRT corrected for nucl RBC Auto (Bld) [#/Vol]8.3 10*3/uL3.8-11.6FSamaritan HospitalLymphocytes Auto (Bld) [#/Vol]Ordered By: Erich Gillis on 96-98-2726Lstlbbtmnbw (Bld) [#/Vol]1.7 10*3/uL1.00-4.8[facility] HospitalLymphocytes/100 WBC Auto (Bld) Ordered By: Erich Gillis on 70-96-0218Csqgzydjtvy/100 WBC (Bld)20.7 %.[facility] HospitalH Auto (RBC) [Entitic mass]Ordered By: Erich Gillis on 59-32-4197XBF (RBC) [Entitic mass]30.9 pg24.7-34.3FSamaritan HospitalMCHC Auto (RBC) [Mass/Vol]Ordered By: Erich Gillis on 93-22-8703WDVJ (RBC) [Mass/Vol]33.0 g/dL32.0-35.0[facility] HospitalMCV Auto (RBC) [Entitic vol]Ordered By: Erich Gillis on 82-59-2638JKG (RBC) [Entitic vol]93.8 fL 80-100[facility] HospitalMonocytes Auto (Bld) [#/Vol]Ordered By: Erich Gillis on 54-12-1261Lfnbhdeyx (Bld) [#/Vol]0.8 10*3/uL0.0-0.8[facility] HospitalMonocytes/100 WBC Auto (Bld)Ordered By: Erich Gillis on 82-63-9801Wzkeiwtuq/100 WBC (Bld)9.5 %.[facility] Neutrophils Auto (Bld) [#/Vol]Ordered By: Erich Gillis on 62-30-0899Ljyywfoveuz (Bld) [#/Vol]5.4 10*3/uL1.8-7.7FSamaritan HospitalNeutrophils/100 WBC Auto (Bld)Ordered By: Erich Gillis on 42-65-8604Vjozfxqrmxw/100 WBC (Bld)65.6 %.[facility] HospitalNo Panel InformationOrdered By: Erich Gillis on 11-97-1633Lhhhdwfci GFR ()54 mL/MinOhiohealth Grady Memorial HospitalComment on above:GFR estimated reference range: According to KDOQI guidelines, <60 ml/min/1.73m2 is sufficient todiagnose a patient with chronic kidney disease.Pharmacy Creatinine Clearance (ChemN/AFSamaritan HospitalNucleated erythrocytes [Presence] in Blood by Automated countOrdered By: Erich Gillis on 30-36-1470Pekxxecqx RBC Auto Ql (Bld)0.1 /100{WBC}0-0.5FSamaritan HospitalPlatelet mean volume Auto (Bld) [Entitic vol]Ordered By: Erich Gillis on 36-08-3228Iapydsvx mean volume (Bld) [Entitic vol]8.4 fL6.3-10.7 [facility] HospitalPlatelets [#/volume] in Blood by Automated countOrdered By: Erich Gillis on 60-85-0630Ruojtjgbc (Bld) [#/Vol]327 10*3/uL 150-450[facility] HospitalProtein [Mass/volume] in Serum or Plasma Ordered By: Erich Gillis on 80-23-2654Ehthlhw [Mass/Vol]7.0 g/dL6.1-7.9[facility] HospitalQuick Strepon 05-10-2022S. pyogenes Org specific cx Ql (Throat)NegativeWells [employer] Other Quick StrepCallFire [employer] Other RSVon 29-51-2042DEH Ag IA Ql (Unsp spec)NegativeEastern State Hospital [employer] Other Serum or plasma alanine aminotransferase measurement without P-5'-P (enzymatic activiOrdered By: Erich Gillis on 20-15-3308BYS No additional P-5'-P [Catalytic activity/Vol]44 U/M08-34SnomqbvayUC West Chester Hospitalerum or plasma albumin/globulin mass ratioOrdered By: Erich Gillis on 50-72-0950Dnohdur/Globulin [Mass ratio]1.3 {ratio}[facility] Hospitalerum or plasma alkaline phosphatase measurement (enzymatic activity/volume)Ordered By: Erich Gillis on 33-12-3922GLN [Catalytic activity/Vol] 74 U/L36-52TbwguuaghUC West Chester Hospitalerum or plasma anion gap determinationOrdered By: Erich Gillis on 72-97-6982Dvnae gap [Moles/Vol]14.3 mmol/L6.0-15.0[facility] Hospitalerum or plasma aspartate aminotransferase measurement (enzymatic activity/volume)Ordered By: Erich Gillis on 17-84-8409SKY [Catalytic activity/Vol]35 U/M63-76TvwpakyliUC West Chester Hospitalerum or plasma calcium measurement (mass/volume)Ordered By: Erich Gillis on 70-83-6409Fwskwoj [Mass/Vol]9.6 mg/dL8.2-10.2FSamaritan Hospital Serum or plasma chloride measurement (moles/volume)Ordered By: Erich Gillis on 73-82-2663Knatrxaq [Moles/Vol]104 mmol/E47-023YqgxaczomOhiohealth Grady Memorial Hospital Serum or plasma glucose measurement (mass/volume)Ordered By: Erich Gillis on 88-49-6186Wbvjqsd [Mass/Vol]92 mg/tD72-270YarcdqrsvOhiohealth Grady Memorial Hospital Comment on above:ADA recommended reference rangeRandom Glucose Reference Range is dependent on time and content of last meal. Glucose of more than 200 mg/dL in a nonstressed, ambulatory subject supports the diagnosisof Diabetes Mellitus. Serum or plasma potassium measurement (moles/volume)Ordered By: Erich Gillis on 79-34-9659Fvlaknkrc [Moles/Vol]4.1 mmol/L3.5-5.1FKindred Hospital Daytonerum or plasma sodium measurement (moles/volume)Ordered By: Erich Gillis on 45-08-9647Yudbqj [Moles/Vol]139 mmol/M718-733DuuvaskntOhiohealth Grady Memorial Hospital Serum or plasma total bilirubin measurement (mass/volume)Ordered By: Erich Gillis on 70-68-2599Idmzaiedh [Mass/Vol]0.4 mg/dL0.3-1.2FKindred Hospital Daytonerum or plasma total carbon dioxide measurement (moles/volume)Ordered By: Erich Gillis on 96-48-7910SC5 [Moles/Vol]24.8 mmol/L22.0-30.0[facility] Hospitalerum or plasma urea nitrogen measurement (mass/volume)Ordered By: Erich Gillis on 72-52-3540Ctjj nitrogen [Mass/Vol]11 mg/dL9-[facility] HospitalWBC Auto (Bld) [#/Vol]Ordered By: Erich Gillis on 67-13-3633MKA (Bld) [#/Vol]8.3 10*3/uL3.8-11.6FSamaritan HospitalXR chest 2V*on 82-48-0082CO chest 2V*[facility] [employer] Other XR chest 2V*[facility] [employer] Other XR chest 2V*[address] [place] [address] [employer] Other XR chest 2V*GALA Bowers [address]Jmekz [employer] Other XR chest 2V*[facility] [employer] Other XR chest 2V*[facility] [employer] Other XR chest 2V*Patient: Hola Douglas MR#: [id number] [employer] Other XR chest 2V*[address] [place] [address] [employer] Other XR chest 2V*: 1945 Acct:[id number] [employer] Other XR chest 2V*Age/Sex: 76 / F ADM Date: 05/10/22[facility] [employer] Other XR chest 2V*Loc: XDS Room: Type: [facility] [employer] Other XR chest 2V*Attending Dr: Erich Gillis [facility] Other XR chest 2V*Copies to: Erich Gillis,[employer] Other XR chest 2V*Ordering Provider: Erich Gillis,[facility] [employer] Other XR chest 2V*Date of Service: 05/10/22[facility] [employer] Other XR chest 2V* XR/XR chest 2V*: [facility] [employer] Other XR chest 2V*Chest 2 viewsE[facility] State Hospital [employer] Other XR chest 2V*CLINICAL HISTORY: Productive cough,[facility] [employer] Other XR chest 2V*COMPARISON: Chest 05/30/2017[facility] [employer] Other XR chest 2V*FINDINGS:[facility] [employer] Other XR chest 2V* XR/XR chest 2V*[facility] [employer] Other XR chest 2V*IMPRESSION:[facility] [employer] Other XR chest 2V*NO ACUTE CARDIOPULMONARY ABNORMALITY.[facility] [employer] Other XR chest 2V*Impression dictated by: Naldo Baltazar Jr., DRembertoORemberto05/10/2022 2:58 PMNWestchester Square Medical Center [employer] Other XR chest 2V*Dictation Location: [id number] [employer] Other XR chest 2V*Transcribed By: NATO 05/10/[address] [place] [address] [employer] Other XR chest 2V*Dictated By: Naldo Baltazar Jr, DO 05/10/[address] [place] [address] [employer] Other xr chest 2V*Signed By:[facility] [employer] Other xr chest 2V*05/10/[address] [place] [address] head/brain wo/w conon 50-89-9269ZF head/brain wo/w [facility] [employer] Other ct head/brain wo/w conFRMRegency Hospital Toledo [employer] Other ct head/brain wo/w [id number] [facility] [employer] Other ct head/brain wo/w GALA Luna [address]CckhmEastern State Hospital [employer] Other ct head/brain wo/w conCT Scan [facility] [employer] Other ct head/brain wo/w [facility] [employer] Other ct head/brain wo/w conPatient: Hola Douglas MR#: [id number] [place] [employer] Other ct head/brain wo/w [id number] [place] [address] [address] head/brain wo/w conDOB: 1945 Acct:[id number] [facility] [employer] Other ct head/brain wo/w conAge/Sex: 76 / F ADM Date: 05/07/22[facility] [employer] Other ct head/brain wo/w conLoc: CT Room: Type: [facility] [employer] Other ct head/brain wo/w conAttending Dr: Erich Gillis [facility] [employer] Other ct head/brain wo/w conCopies to: Erich Gillis,[facility] [employer] Other ct head/brain wo/w conOrdering Provider: Erich Gillis,[facility] [employer] Other ct head/brain wo/w conDate of Service: 05/07/22[facility] [employer] Other ct head/brain wo/w conAccession #: ([id number]) CT/CT head/brain wo/w con: Headache;Lightheadedness;Right earNojohn j. pershing va medical center [employer] Other ct head/brain wo/w conpain;MastoiditisNojohn j. pershing va medical center [employer] Other ct head/brain wo/w conEnhanced and unenhanced head CT [employer] Other ct head/brain wo/w conTECHNIQUE: Contiguous axial imaging of the head.90 cc of Isovue-300The CT exam was performed usingWells [employer] Other ct head/brain wo/w conone or more the following dose reduction techniques: Automated exposure control, adjustment of theNparkland health center [employer] Other ct head/brain wo/w conMA and/or Kv according to patient size, or use of the iterative reconstruction technique.[employer] Other ct head/brain wo/w conCOMPARISON:NoneNojohn j. pershing va medical center [employer] Other ct head/brain wo/w conHISTORY:Headache. Lightheadedness.[employer] Other ct head/brain wo/w conVentricles are normal in size and position allowing for diffuse brain parenchymal atrophy.[employer] Other ct head/brain wo/w conDecreased density of the white matter is most consistent with chronic small vessel disease.[employer] Other ct head/brain wo/w conNo intracranial hemorrhage, mass effect or herniation is identified.[employer] Other ct head/brain wo/w conNo recent vascular distribution infarction is seen.[employer] Other ct head/brain wo/w conNo abnormal extra-axial fluid collections identified.[employer] Other ct head/brain wo/w conSinuses, orbits and mastoid air cells are unremarkable.[employer] Other ct head/brain wo/w conBony structures are intact.[employer] Other ct head/brain wo/w conNo pathologic enhancement or enhancing mass identified.[employer] Other ct head/brain wo/w conORDER #: [id number] CT/CT head/brain wo/w [facility] [employer] Other ct head/brain wo/w conIMPRESSION:[employer] Other ct head/brain wo/w conNo acute intracranial findings. [employer] Other ct head/brain wo/w conImpression dictated by: Meliton Herrera M.D.05/07/2022 3:01 [facility] [employer] Other ct head/brain wo/w conDictation Location: [facility] [employer] Other ct head/brain wo/w conTranscribed By: PWS 05/07/[address] [place] [address] [address] [address] Other [address] head/brain wo/w conDictated By: Meliton Herrera DO 05/07/[address] [place] [address] [address] [address] Other [address] head/brain wo/w conSigned By:[employer] Other ct head/brain wo/w con05/07/22 [facility] CenterShayne Foods Other Creatinine (Bld) [Mass/Vol]Ordered By: Erich Gillis on 46-62-4314Ivawclsicr [Mass/Vol]1.1 mg/dL0.6-1.3FSamaritan Hospital Comment on above:ER/ESD physician is notified/shown all ISTAT results.Critical values may be confirmed by laboratorytesting ifdeemed necessary by ER attending doctor.No Panel InformationOrdered By: Erich Gillis on 71-36-5705EUN Estimated GFR Velbzifw77Sccqsfftl Regional Medical CenterComment on above:GFR estimated reference range: According to KDOQI guidelines, <60 ml/min/1.73m2 is sufficient todiagnose a patient with chronic kidney disease.POC Estimated GFR Non- Ohtx90TekxwzedoOhiohealth Grady Memorial HospitalCOVID + FLU Quick Testingon 76-51-1396DHKR-CoV-2 (COVID-19) RNA HANNAH+probe Ql (Unsp spec)NegativePodTech Other COVID + FLU Quick TestingNegativePodTech Other RSVon 10-66-6673BQF Ag IA Ql (Unsp spec)NegativePodTech Other Basi metabolic 2000 panelon 97-37-5072Zlgab gap [Moles/Vol]13 mmol/L9 - 18 mmol/LCleveland ClinicCalcium [Mass/Vol]9.5 mg/dL8.5 - 10.2 mg/dLChesaning ClinicChloride [Moles/Vol]104 mmol/L97 - 105 mmol/L Chesaning ClinicCO2 [Moles/Vol]28 mmol/L22 - 30 mmol/LCleveland ClinicCreatinine [Mass/Vol]0.95 mg/dL0.58 - 0.96 mg/dLWilson HealthEstimated Glomerular Filtration Rate63 mL/min/1.73m>=60 mL/min/1.73mCleveland ClinicGlucose [Mass/Vol]155 mg/kALuwq34 - 99 mg/dLChesaning ClinicPotassium [Moles/Vol]3.8 mmol/L3.7 - 5.1 mmol/LCleveland ClinicSodium [Moles/Vol]145 mmol/QXfcy198 - 144 mmol/LCleveland ClinicUrea nitrogen [Mass/Vol]13 mg/dL7 - 21 mg/dLWilson HealthCHEMISTRYOrdered By: Dayan Hassan on 31-30-1574Jagdeai [Mass/Vol]104 mg/dL High55 - 99 mg/dLDEACONESS [facility] [place] P[facility] SubsectionPOC Device [id number] Interpretation CodeDEACONESS [facility] [place] POC SubsectionPOC User [id number] Interpretation CodeDEACONESS [facility] [place] POC SubsectionPOC UsernameEBERSOLE, MARIAInvalid Interpretation Code [facility] POC SubsectionMAM SCREENINGon 61-20-8707Pxkigkcuk ClinicBasophils Auto (Bld) [#/Vol]Ordered By: Erich Gillis on 07-45-4656Dnstrnicn (Bld) [#/Vol]0.1 10*3/uL0.0-0.2FSamaritan HospitalBasophils/100 WBC Auto (Bld) Ordered By: Erich Gillis on 06-46-2292Jzkxvgmuu/100 WBC (Bld)0.9 %.[facility] HospitalBlood hemoglobin measurement (mass/volume)Ordered By: Erich Gillis on 99-42-2797Fbuherwbbc (Bld) [Mass/Vol]13.7 g/dL11.8-15.4FSamaritan HospitalBlood leukocytes automated count (number/volume)Ordered By: Erich Gillis on 52-16-2422ESP (Bld) [#/Vol]9.2 10*3/uL4.5-11.0Ohio[facility] Memorial HospitalBody fluid albumin measurement (mass/volume)Ordered By: Erich Gillis on 96-51-1657Usvogaf (Body fld) [Mass/Vol]4.1 g/dL3.2-5.5FSamaritan HospitalCreatinine and Glomerular filtration rate.predicted panel (S/P/Bld)Ordered By: Erich Gillis on 79-02-0592Iogtcmlrhj [Mass/Vol]1.17 mg/dL 0.44-1.03Ohio[facility] Grady Memorial HospitalEosinophils Auto (Bld) [#/Vol]Ordered By: Erich Gillis on 95-55-0724Yozzspeuyhf (Bld) [#/Vol]0.7 10*3/uL0.0-0.45 [facility] HospitalEosinophils/100 WBC Auto (Bld)Ordered By: Erich Gillis on 41-76-4621Avhlnegheon/100 WBC (Bld)7.3 %.[facility] Memorial HospitalErythrocyte distribution width Auto (RBC) [Ratio]Ordered By: Erich Gillis on 13-53-4261Gdxonhqcran distribution width (RBC) [Ratio]14.1 %11.9-15.3FSamaritan HospitalEstimated glomerular filtration rate (GFR) non- AmericanOrdered By: Erich Gillis on 99-94-6833AXY/1.73 sq M.predicted among non- blacks MDRD (S/P/Bld) [Vol rate/Area]45 mL/MinOhiohealth Grady Memorial Hospital Globulin Calc (S) [Mass/Vol]Ordered By: Erich Gillis on 92-13-0683Pfkbfypr (S) [Mass/Vol]2.5 g/dLOhiohealth Grady Memorial HospitalHematocrit Auto (Bld) [Volume fraction]Ordered By: Erich Gillis on 47-55-5258Aibiocbdwp (Bld) [Volume fraction] 40.9 %34.0-46.4FSamaritan HospitalLaboratory - Hematology and Cell countsOrdered By: Erich Gillis on 28-75-5875Ckdufctde RBC/100 WBC (Bld) [Ratio]0.1 %0-0.5FSamaritan HospitalLymphocytes Auto (Bld) [#/Vol]Ordered By: Erich Gillis on 79-83-9130Edowxzbksxf (Bld) [#/Vol]2.1 10*3/uL1.00-4.8 [facility] HospitalLymphocytes/100 WBC Auto (Bld)Ordered By: Erich Gillis on 39-10-7524Xtvudtapnyn/100 WBC (Bld)23.2 %.[facility] Auto (RBC) [Entitic mass]Ordered By: Erich Gillis on 83-62-0799HZI (RBC) [Entitic mass]31.5 pg24.7-34.3FSamaritan HospitalMCHC Auto (RBC) [Mass/Vol]Ordered By: Erich Gillis on 19-35-8113IOUE (RBC) [Mass/Vol]33.4 g/dL 32.0-35.0Ohio[facility] Memorial HospitalMCV Auto (RBC) [Entitic vol]Ordered By: Erich Gillis on 91-24-0956TQE (RBC) [Entitic vol]94.2 wS95-641SelndbnojOhiohealth Grady Memorial HospitalMonocytes Auto (Bld) [#/Vol]Ordered By: Erich Gillis on 56-22-2997Ihjolgawr (Bld) [#/Vol]0.7 10*3/uL0.0-0.8[facility] Memorial HospitalMonocytes/100 WBC Auto (Bld)Ordered By: Erich Gillis on 10-19-2021 Monocytes/100 WBC (Bld)7.7 %.[facility] Memorial HospitalNeutrophils Auto (Bld) [#/Vol]Ordered By: Erich Gillis on 55-96-9480Wljabfxhtae (Bld) [#/Vol]5.6 10*3/uL1.8-7.7FSamaritan HospitalNeutrophils/100 WBC Auto (Bld) Ordered By: Erich Gillis on 41-38-6359Npphfhjosdc/100 WBC (Bld)60.9 %.[facility] HospitalNo Panel InformationOrdered By: Erich Gillis on 10-19-2021 Estimated GFR ()55 mL/MinOhiohealth Grady Memorial Hospital Comment on above:GFR estimated reference range: According to KDOQI guidelines, <60 ml/min/1.73m2 is sufficient todiagnose a patient with chronic kidney disease.Pharmacy Creatinine Clearance (ChemN/[facility] Platelet mean volume Auto (Bld) [Entitic vol]Ordered By: Erich Gillis on 51-68-4463Jldeioqz mean volume (Bld) [Entitic vol]9.1 fL6.3-10.7FSamaritan HospitalPlatelets Auto (Bld) [#/Vol]Ordered By: Erich Gillis on 88-90-6544Auzpwgthu (Bld) [#/Vol]338 10*3/tP925-345FmlqdcckcOhiohealth Grady Memorial HospitalProtein [Mass/volume] in Serum or PlasmaOrdered By: Erich Gillis on 19-20-7143Vopbldm [Mass/Vol]6.6 g/dL6.1-7.9Ohio[facility] Memorial HospitalRBC Auto (Bld) [#/Vol]Ordered By: Erich Gillis on 47-10-2572ACI (Bld) [#/Vol]4.34 10*6/uL3.60-5.00[facility] Hospitalerum or plasma alanine aminotransferase measurement without P-5'-P (enzymatic activiOrdered By: Erich Gillis on 63-80-8343FYF No additional P-5'-P [Catalytic activity/Vol]49 U/L10-60 [facility] Hospitalerum or plasma albumin/globulin mass ratio Ordered By: Erich Gillis on 88-17-9826Wsjywtg/Globulin [Mass ratio]1.6 {ratio} [facility] Hospitalerum or plasma alkaline phosphatase measurement (enzymatic activity/volume)Ordered By: Erich Gillis on 11-16-9861ISR [Catalytic activity/Vol]64 U/G21-85HxrxfdcwyUC West Chester Hospitalerum or plasma aspartate aminotransferase measurement (enzymatic activity/volume)Ordered By: Erich Gillis on 56-49-2516FAY [Catalytic activity/Vol]47 U/N30-55CsfrmqailUC West Chester Hospitalerum or plasma calcium measurement (mass/volume)Ordered By: Erich Gillis on 96-86-3329Xnikgfl [Mass/Vol]10.0 mg/dL8.2-10.2FKindred Hospital Daytonerum or plasma chloride measurement (moles/volume) Ordered By: Erich Gillis on 44-32-3075Wpqrczpt [Moles/Vol]103 mmol/L95-114 [facility] Hospitalerum or plasma glucose measurement (mass/volume)Ordered By: Erich Gillis on 72-78-6347Kevepby [Mass/Vol]95 mg/dL 70-100Ohio[facility] Memorial HospitalComment on above:ADA recommended reference range Random Glucose Reference Range is dependent on time and content of last meal. Glucose of more than 200 mg/dL in a nonstressed, ambulatory subject supports the diagnosis of Diabetes Mellitus.Serum or plasma potassium measurement (moles/volume)Ordered By: Erich Gillis on 69-36-3965Yrlhmslhi [Moles/Vol]4.0 mmol/L3.5-5.1FKindred Hospital Daytonerum or plasma sodium measurement (moles/volume)Ordered By: Erich Gillis on 13-24-0447Uydfxq [Moles/Vol]139 mmol/L 136-146[facility] Hospitalerum or plasma total bilirubin measurement (mass/volume)Ordered By: Erich Gillis on 93-96-2170Ufxolllom [Mass/Vol]0.6 mg/dL0.3-1.2FKindred Hospital Daytonerum or plasma total carbon dioxide measurement (moles/volume)Ordered By: Erich Gillis on 10-19-2021 CO2 [Moles/Vol]27.5 mmol/L22.0-30.0[facility] Hospitalerum or plasma urea nitrogen measurement (mass/volume)Ordered By: Erich Gillis on 80-30-0015Vdxg nitrogen [Mass/Vol]15 mg/dL9-23[facility] TSH DL <= 0.005 mIU/L QnOrdered By: Erich Gillis on 23-42-6208GWM Qn3.51 m[IU]/L 0.45-5.33[facility] Memorial HospitalXR Knee AP and Lateral and Merchantson 78-97-2864AAIAXUNNEU: Unchanged left knee arthroplasty without evidence of hardware complication. Fire Marshal: HEIDI Transcribe Date/Time: Nov 29 2019 3:48P Dictated by : NATTY MALHOTRA MD This examination was interpreted and the report reviewed and electronically signed by: NATTY MALHOTRA MD on Nov 29 2019 3:49PM [facility] DIVISION OF RADIOLOGY* * *Final Report* * * DATE OF EXAM: Nov 29 2019 3:11PM LZX 5208 - XR KNEE 3V AP/LAT/MERCHANT LT / PROCEDURE REASON: Post-op pain * * * * Physician Interpretation * * * * EXAMINATION / TECHNIQUE: XR KNEE 3V AP/LAT/MERCHANT LT HISTORY: f/u left TKA November 2018 Post-op pain COMPARISON: 12/28/2018. RESULT: Status post left total knee arthroplasty with orthopedic hardware in standard position and alignment. There is no aggressive periprosthetic osteolysis or periprosthetic fracture. DIVISION OF RADIOLOGYProvider, [facility] [place] - 11/29/2019 * * *Final Report* * * DATE OF EXAM: Nov 29 2019 3:11PM LZX 5208 - XR KNEE 3V AP/LAT/MERCHANT LT / PROCEDURE REASON: Post-op pain * * * * Physician Interpretation * * * * EXAMINATION / TECHNIQUE: XR KNEE 3V AP/LAT/MERCHANT LT HISTORY: f/u left TKA November 2018 Post-op pain COMPARISON: 12/28/2018. RESULT: Status post left total knee arthroplasty with orthopedic hardware in standard position and alignment. There is no aggressive periprosthetic osteolysis or periprosthetic fracture. IMPRESSION IMPRESSION: Unchanged left knee arthroplasty without evidence of hardware complication. Fire Marshal: HEIDI Transcribe Date/Time: Nov 29 2019 3:48P Dictated by : NATTY MALHOTRA MD This examination was interpreted and the report reviewed and electronically signed by: NATTY MALHOTRA MD on Nov 29 2019 3:49PM EST [facility] HealthRadiology Study observation (narrative)[facility] HealthXR Knee AP and Lateral and MerchantsOrdered By: Ccf Provider on 46-25-0847Bobidxisq [facility] Vital Signs Date TimeVital SignValuePerforming MkfvuzwuuTpygfvol00-73-8145 10:33-0400Body iyddmh186.91 cmBrett Kuns DO Work Phone: [facility]10-20-2025 10:33-0400 Body mass index (BMI) [Ratio]29.5 kg/b1Rpibf Kuns DO Work Phone: [phone] [place], [place] 2452110-20-2025 10:33-0400 Body snwcje93.4 kgBrett Kuns DO Work Phone: [phone] [place], [place] 2452110-20-2025 10:33-0400 Diastolic blood vjivdukz09 mm[Hg]Erich Kuns DO Work Phone: [address] [place], [place] 46[address]10-20-2025 10:33-0400 Heart rate79 /minBrett Kuns DO Work Phone: [phone] [place], [place] 2452110-20-2025 10:33-0400 Respiratory rate16 /minBrett Kuns DO Work Phone: [phone]10-20-2025 10:33-0400 SaO2% (BldA) [Mass fraction]97 %Erich Kuns DO Work Phone: [phone] [place], [place] 2452110-20-2025 10:33-0400 Systolic blood mkwewflx780 mm[Hg]Erich Kuns DO Work Phone: [facility]09-09-2025 10:21-0400 Body xysttz541.72 cmBrett Kuns DO Work Phone: [facility]09-09-2025 10:21-0400 Body mass index (BMI) [Ratio]28.5 kg/h3Apmvs Kuns DO Work Phone: [facility]09-09-2025 10:21-0400 Body .27 kgBrett Kuns DO Work Phone: [phone] [place], [place] [address]-09-2025 10:21-0400 Diastolic blood cmjtrfei40 mm[Hg]Erich Kuns DO Work Phone: [phone]09-09-2025 10:21-0400 Heart rate79 /minBrett Kuns DO Work Phone: [phone]09-09-2025 10:21-0400 Respiratory rate16 /minBrett Kuns DO Work Phone: [phone]09-09-2025 10:21-0400 SaO2% (BldA) [Mass fraction]95 %Erich Kuns DO Work Phone: [phone]09-09-2025 10:21-0400 Systolic blood fwdccgda939 mm[Hg]Erich Kuns DO Work Phone: [facility]06-04-2025 14:40-0400 Body dakwme631.72 cmOhiohealth Grady Memorial Hospital06-04-2025 14:40-0400Body mass index (BMI) [Ratio]28.9 kg/r8UbhhulkygOhiohealth Grady Memorial Hospital06-04-2025 14:40-0400Body annngh96.4 kgOhiohealth Grady Memorial Hospital06-04-2025 14:40-0400Diastolic blood uivhocwq02 mm[Hg][facility] 09-12-2024 14:40-0400Heart rate86 /minOhiohealth Grady Memorial Hospital 09-12-2024 14:40-0400Respiratory rate16 /[facility] 09-12-2024 14:40-0310WzG1% (BldA) [Mass fraction]93 %[facility]06-04-2025 14:40-0400Systolic blood iimfresb520 mm[Hg][facility]06-03-2025 09:49-0400Body henkxn509.7 Ruchi Wagoner MD Work Phone: [facility]06-03-2025 09:49-0400Body mass index (BMI) [Ratio]28.89 kg/m8PloqmavSteve Wagoner MD Work Phone: [facility]06-03-2025 09:49-0400Body edohsv04.18 kgSteve Wagoner MD Work Phone: [facility]06-03-2025 09:49-0400Diastolic blood drpdsanu44 mm[Hg]Steve Wagoner MD Work Phone: [facility]06-03-2025 09:49-0400Heart rate79 /min Steve Wagoner MD Work Phone: [facility]06-03-2025 09:49-1128XoH5% (BldA) [Mass fraction]92 %Steve Wagoner MD Work Phone: [facility]06-03-2025 09:49-0400Systolic blood kinzphsj446 mm[Hg]Steve Wagoner MD Work Phone: [facility]2025 14:49-0400Body mass index (BMI) [Ratio]29.5 kg/d7TqhqrxLorraine Oneill MD Work Phone: [facility]2025 14:49-0400Body rjlkiu84 kg Lorraine Oneill MD Work Phone: [facility]2025 14:49-0400Diastolic blood thqmwitd68 mm[Hg]Lorraine Oneill MD Work Phone: [facility]2025 14:49-0400Heart rate80 /min Lorraine Oneill MD Work Phone: [facility]2025 14:49-0400Systolic blood mm[Hg]Lorraine Oneill MD Work Phone: [facility]2025 09:59-0400Blood Pressure LocationRyan LIVE [facility]2025 09:59-0400Diastolic blood oufynkcy82 mm[Hg]Ryan LIVE [facility]2025 09:59-0400Heart rate76 /minRyna ILVE [facility]2025 09:59-0400Respiratory rate18 /minRyan LIVE [facility]2025 09:59-0400Systolic blood mm[Hg]Ryan LIVE [facility]03-17-2025 14:19-0400Body mass index (BMI) [Ratio]28.39 kg/m2Karl Cook APRN.ENVIRONMENTAL ENGINEER SCIENTIST Work Phone: [facility]03-17-2025 14:19-0400Body jtselm33.7 kgKarl Cook APRN.ENVIRONMENTAL ENGINEER SCIENTIST Work Phone: [facility]03-17-2025 14:19-0400Diastolic blood onsldlca61 mm[Hg]Karl Cook APRN.ENVIRONMENTAL ENGINEER SCIENTIST Work Phone: [facility]03-17-2025 14:19-0400Heart rate73 /min Karl Cook APRN.ENVIRONMENTAL ENGINEER SCIENTIST Work Phone: [facility]03-17-2025 14:19-0400Systolic blood edybklqd880 mm[Hg]Karl Cook APRN.CNP Work Phone: [facility]02-12-2025 12:57-0500Body qpirsm528.72 cmOhiohealth Grady Memorial Hospital02-12-2025 12:57-0500Body mass index (BMI) [Ratio]28.4 kg/d8IphpoblfsOhiohealth Grady Memorial Hospital02-12-2025 12:57-0500Body pulkjv85.82 kgOhiohealth Grady Memorial Hospital02-12-2025 12:57-0500Diastolic blood cfnnabur91 mm[Hg][facility]02-12-2025 12:57-0500 Heart rate75 /[facility]02-12-2025 12:57-0500 Respiratory rate16 /[facility]02-12-2025 12:57-0500 SaO2% (BldA) [Mass fraction]94 %[facility]02-12-2025 12:57-0500Systolic blood toxqputl421 mm[Hg][facility] 03-20-2024 13:50-0500Body cbjzid491.7 Jose Luis Rubio MD Work Phone: [facility]12-10-2024 13:50-0500Body mass index (BMI) [Ratio]27.37 kg/m2Andres Rubio MD Work Phone: [facility]12-10-2024 13:50-0500Body tendvi80.65 kgAndres Rubio MD Work Phone: [facility]12-10-2024 13:50-0500Diastolic blood znhojtxz43 mm[Hg]Andres Rubio MD Work Phone: [facility]12-10-2024 13:50-0500Heart rate75 /min Andres Rubio MD Work Phone: [facility]12-10-2024 13:50-9498McI5% (BldA) [Mass fraction]97 %Andres Rubio MD Work Phone: [facility]12-10-2024 13:50-0500Systolic blood qfimyfuw953 mm[Hg]Andres Rubio MD Work Phone: [facility]11-13-2024 13:31-0500Body .72 cmOhiohealth Grady Memorial Hospital11-13-2024 13:31-0500Body mass index (BMI) [Ratio]27.6 kg/x7RizhyscssOhiohealth Grady Memorial Hospital11-13-2024 13:31-0500Body iuqrip85.55 kgOhiohealth Grady Memorial Hospital11-13-2024 13:31-0500Diastolic blood mm[Hg][facility]11-13-2024 13:31-0500 Heart rate87 /[facility]11-13-2024 13:31-0500 Respiratory rate18 /[facility]11-13-2024 13:31-0500 SaO2% (BldA) [Mass fraction]96 %[facility]11-13-2024 13:31-0500Systolic blood rfqyojat288 mm[Hg][facility] 02-16-2024 10:00-0500Diastolic blood stxmhxuw23 mm[Hg]Karl Lion PT Work Phone: [facility]11-07-2024 10:00-0500Heart rate80 /min Karl Lion PT Work Phone: [facility]11-07-2024 10:00-0500Systolic blood mdeadpxs010 mm[Hg]Karl Lion PT Work Phone: [address] [place], [place] 5484110-31-2024 15:00-0400Diastolic blood ntyxkqxy25 mm[Hg]Karl Lion PT Work Phone: [address] [place], [place] 5484110-31-2024 15:00-0400Heart rate63 /min Karl Lion PT Work Phone: [facility]10-31-2024 15:00-0400Systolic blood iewqwapr021 mm[Hg]Karl Lion PT Work Phone: [phone] [place], [place] 7184210-28-2024 08:35-0400Blood Pressure LocationRyan GlobalLab [facility] [place] 686540-28-2024 08:35-0400Diastolic blood ofmbpzcy72 mm[Hg]Ryan [employer] [facility] [place] 686540-28-2024 08:35-0400Heart rate78 /minRyan [employer] [facility] [place] 686540-28-2024 08:35-0400Respiratory rate16 /minRyan [employer] [facility] [place] 686540-28-2024 08:35-0400Systolic blood wxsekukd191 mm[Hg]Ryan [employer] [facility] [place] 686540-24-2024 12:00-0400Diastolic blood mlkwlgea46 mm[Hg]Karl Albason PT Work Phone: [phone] [place], [place] 0212210-24-2024 12:00-0400Heart rate83 /min Karl Albason PT Work Phone: [phone] [place], [place] 7184210-24-2024 12:00-0400Systolic blood paxpurqn928 mm[Hg]Karl Albason PT Work Phone: [phone])[facility] [place], [place] 7184210-17-2024 14:00-0400Diastolic blood kwbafszt80 mm[Hg]Karl Albason PT Work Phone: [phone])[facility] [place], [place] 7184210-17-2024 14:00-0400Heart rate75 /min Karl Albason PT Work Phone: [phone] [place], [place] 7184210-17-2024 14:00-2931HzY7% (BldA) [Mass fraction]98 %Karl AveryLion PT Work Phone: [phone] [place], [place] 7184210-17-2024 14:00-0400Systolic blood yldznkul477 mm[Hg]Karl Albason PT Work Phone: [facility]10-10-2024 15:06-0400Body mass index (BMI) [Ratio]27.99 kg/m3VpajfsLorraine Oneill MD Work Phone: [facility]10-10-2024 15:06-0400Body wmwubg21.5 kgLorraine Oneill MD Work Phone: [facility]10-10-2024 15:06-0400Diastolic blood zdrwauan08 mm[Hg]Lorraine Oneill MD Work Phone: [facility]10-10-2024 15:06-0400Heart rate73 /min Lorraine Oneill MD Work Phone: [facility]10-10-2024 15:06-0400Respiratory rate 16 /minLorraine Oneill MD Work Phone: [facility]10-10-2024 15:06-0400Systolic blood mm[Hg]Lorraine Oneill MD Work Phone: [facility]10-08-2024 11:00-0400Diastolic blood uocouiga63 mm[Hg]Karl Albason PT Work Phone: [facility]10-08-2024 11:00-0400Heart rate61 /min Karl Lion PT Work Phone: [address] [place], [place] 5484110-08-2024 11:00-8886SuU3% (BldA) [Mass fraction]100 %Karl Lion PT Work Phone: [facility]10-08-2024 11:00-0400Systolic blood srlpfxax761 mm[Hg]Karl AveryLion PT Work Phone: [facility]10-07-2024 09:10-0400Body qaqnux004.7 Ruchi Wagoner MD Work Phone: [facility]10-07-2024 09:10-0400Body mass index (BMI) [Ratio]27.86 kg/n2Xfqjczl Rizwana MD Work Phone: [facility]10-07-2024 09:10-0400Body ptlybj36.1 kgSteve Wagoner MD Work Phone: [facility]10-07-2024 09:10-0400Diastolic blood odsbqbjz23 mm[Hg]Steve Wagoner MD Work Phone: [facility]10-07-2024 09:10-0400Heart rate77 /min Steve Wagoner MD Work Phone: [facility]10-07-2024 09:10-0400Respiratory rate 12 /minSteve Wagoner MD Work Phone: [facility]10-07-2024 09:10-0344UdL7% (BldA) [Mass fraction]96 %Steve Wagoner MD Work Phone: [phone] HealthComment on above:room zxf20-59-8727 09:10-0400Systolic blood xarllixm152 mm[Hg]Steve Wagoner MD Work Phone: [facility]09-26-2024 14:17-0400Body .7 cmLtamar Ford MD Work Phone: [facility]09-26-2024 14:17-0400Body mass index (BMI) [Ratio]26.76 kg/q0XmlabgjHeather Ford MD Work Phone: [facility]09-26-2024 14:17-0400Body pjbloa92.83 Concepción Ford MD Work Phone: [phone]09-05-2024 12:14-0400Body yqgvuu589.7 cmAndrea Lees MD Work Phone: [facility]09-05-2024 12:14-0400Body mass index (BMI) [Ratio]27.22 kg/e4YjdfoufAndrea Lees MD Work Phone: [phone]09-05-2024 12:14-0400Body gmonyv82.19 Maria Isabel Lees MD Work Phone: [phone]09-05-2024 11:38-0400Body jagnng860.7 cmEkristen Garza [employer].ENVIRONMENTAL ENGINEER SCIENTIST Work Phone: [facility]09-05-2024 11:38-0400Body mass index (BMI) [Ratio]27.76 kg/m4GzacuSheryl Garza [employer].ENVIRONMENTAL ENGINEER SCIENTIST Work Phone: [place] [address]-05-2024 11:38-0400Body .8 kgSheryl Garza [employer].ENVIRONMENTAL ENGINEER SCIENTIST Work Phone: [place] [address]-05-2024 11:38-0400Diastolic blood pkqbyoql59 mm[Hg]Sheryl Garza [employer].ENVIRONMENTAL ENGINEER SCIENTIST Work Phone: [facility]09-05-2024 11:38-0400Heart rate84 /min Sheryl Garza [employer].ENVIRONMENTAL ENGINEER SCIENTIST Work Phone: [facility]09-05-2024 11:38-9335HtZ8% (BldA) [Mass fraction]93 %Sheryl Garza [employer].ENVIRONMENTAL ENGINEER SCIENTIST Work Phone: [facility]09-05-2024 11:38-0400Systolic blood mm[Hg]Sheryl Garza [employer].ENVIRONMENTAL ENGINEER SCIENTIST Work Phone: [phone]08-20-2024 13:00-0400Diastolic blood ivmzkjof80 mm[Hg]Rachele Santo PT Work Phone: [facility]08-20-2024 13:00-0400Systolic blood mnushfwa06 mm[Hg]Rachele Santo PT Work Phone: [facility]08-20-2024 10:45-0400Body ywgjsc094.7 Ruchi Wagoner MD Work Phone: [phone]08-20-2024 10:45-0400Diastolic blood mm[Hg]Steve Wagoner MD Work Phone: [facility]08-20-2024 10:45-0400Heart rate80 /min Steve Wagoner MD Work Phone: [facility]08-20-2024 10:45-0400Respiratory rate 18 /minSteve Wagoner MD Work Phone: [facility]08-20-2024 10:45-7397FlX6% (BldA) [Mass fraction]94 %Steve Wagoner MD Work Phone: [facility]08-20-2024 10:45-0400Systolic blood yuoctrix118 mm[Hg]Steve Wagoner MD Work Phone: [facility]08-13-2024 12:49-0400Body lsnrak255.72 cmDO [email or web address] Work Phone: [facility]08-13-2024 12:49-0400 Body mass index (BMI) [Ratio]27.5 kg/m2DO [email or web address] Work Phone: [facility]08-13-2024 12:49-0400 Body rvcsuz92.1 kgDO [email or web address] Work Phone: [facility]08-13-2024 12:49-0400 Diastolic blood achcrtwt73 mm[Hg]DO [email or web address] Work Phone: [facility] [facility] 12:49-0400 Heart rate96 /minDO Erich KODAs Work Phone: [facility]08-13-2024 12:49-0400 Respiratory rate18 /minDO Erich Kuns Work Phone: [facility]08-13-2024 12:49-0400 Systolic blood tdocjgsf814 mm[Hg]DO Erich KODAs Work Phone: [facility]07-27-2024 11:12-0400 Body mass index (BMI) [Ratio]26.61 kg/m2Mri (Istat/3t) Work Phone: [facility]07-27-2024 11:12-0400Body ewrgms62.38 kgMri (Istat/3t) Work Phone: [facility]07-17-2024 16:04-0400Body mass index (BMI) [Ratio]27.29 kg/m2Karl Peraltaleo [employer].ENVIRONMENTAL ENGINEER SCIENTIST Work Phone: [facility]07-17-2024 16:04-0400Body .4 kgKarl Cook [employer].ENVIRONMENTAL ENGINEER SCIENTIST Work Phone: [facility]07-17-2024 16:04-0400Diastolic blood rtehedql41 mm[Hg]Karl Cook [employer].ENVIRONMENTAL ENGINEER SCIENTIST Work Phone: [facility]07-17-2024 16:04-0400Heart rate73 /min Karl Cook [employer].ENVIRONMENTAL ENGINEER SCIENTIST Work Phone: [facility]07-17-2024 16:04-0400Respiratory rate 16 /minKarl Cook [employer].ENVIRONMENTAL ENGINEER SCIENTIST Work Phone: [facility]07-17-2024 16:04-0400Systolic blood mm[Hg]Karl Cook [employer].ENVIRONMENTAL ENGINEER SCIENTIST Work Phone: [facility]07-12-2024 12:39-0400Diastolic blood npebapkh83 mm[Hg]Kristie Saavedra [facility]07-12-2024 12:39-0400Heart rate82 /minAmanda Saavedra [facility]07-12-2024 12:39-0400Mean blood kuymnktq55 mm[Hg]Kristie Saavedra [facility]07-12-2024 12:39-0400 Respiratory rate14 /minAmanda Saavedra [facility]07-12-2024 12:39-0400 Systolic blood ahnvaaco83 mm[Hg]Kristie [facility]avedra [facility]06-10-2024 13:36-0400Heart rate73 /minBradfandi Cruz [facility]06-10-2024 13:36-0411QxB0% (BldA) [Mass fraction]96 %Anirudh Arroyo [facility]06-10-2024 13:36-0400 Respiratory rate16 /minBradford Cruz [facility]06-10-2024 13:35-0400 Diastolic blood qctigwrg03 mm[Hg]Anirudh Arroyo [facility]06-10-2024 13:35-0400Mean blood dlfjwgne96 mm[Hg]Anirudh [facility]royo [facility]06-10-2024 13:35-0400 Systolic blood touderel419 mm[Hg]Anirudh [facility]royo [facility]06-10-2024 13:31-0400 Diastolic blood wojbviws19 mm[Hg]Anirudh [facility]royo [facility]06-10-2024 13:31-0400Heart rate70 /minBradford Cruz [facility]06-10-2024 13:31-0400 Respiratory rate14 /minBradfandi Arroyo [facility]06-10-2024 13:31-1837KbH0% (BldA) [Mass fraction]96 %Anirudh Arroyo [facility]06-10-2024 13:31-0400 Systolic blood neicmjke919 mm[Hg]Anirudh [facility]royo [facility]06-10-2024 12:46-0400Heart rate73 /minBradfandi Arroyo [facility]06-10-2024 12:46-8277KcS0% (BldA) [Mass fraction]95 %Anirudh Arroy[facility]06-10-2024 12:46-0400 Respiratory rate13 /minBraevelinandi Arroyo [facility]06-10-2024 12:45-0400Body wyjjxrlhuio24.7 [degF]Anirudh [facility]royo [facility]06-10-2024 12:45-0400 Diastolic blood ukdsduxs62 mm[Hg]Anirudh [facility]royo [facility]06-10-2024 12:45-0400Mean blood rgyhfnej03 mm[Hg]Anirudh [facility]royo [facility]06-10-2024 12:45-0400 Systolic blood btkujrmj733 mm[Hg]Anirudh Arroyo [facility]06-04-2024 11:25-0400 Diastolic blood hcnqazqz90 mm[Hg]Andres Rubio MD Work Phone: [facility]06-04-2024 11:25-0400Heart rate86 /min Andres Rubio MD Work Phone: [facility]06-04-2024 11:25-4043KcR3% (BldA) [Mass fraction]94 %Andres Rubio MD Work Phone: [facility]06-04-2024 11:25-0400Systolic blood amylnkys997 mm[Hg]Andres Rubio MD Work Phone: [facility]05-22-2024 14:10-0400Body qgjnyb524.72 cmDO Erich Gillis Work Phone: [facility]05-22-2024 14:10-0400 Body mass index (BMI) [Ratio]27.3 kg/m2DO Erich Gillis Work Phone: [facility]05-22-2024 14:10-0400 Body bveply98.64 kgDO Erich Gillis Work Phone: [facility]05-22-2024 14:10-0400 Diastolic blood dhznsynf45 mm[Hg]DO Erich Kuns Work Phone: [facility]05-22-2024 14:10-0400 Heart rate90 /minDO Erich Gillis Work Phone: [facility]05-22-2024 14:10-0400 Respiratory rate18 /minDO Erich Gillis Work Phone: [facility]05-22-2024 14:10-0400 SaO2% (BldA) [Mass fraction]94 %DO Erich Gillis Work Phone: [facility]05-22-2024 14:10-0400 Systolic blood waxgtsju725 mm[Hg]DO Erich Gillis Work Phone: [facility]05-07-2024 09:42-0400 Diastolic blood mm[Hg]Anirudh Arroyo [facility]05-07-2024 09:42-0400Heart rate86 /minBradfandi Cruz [facility]05-07-2024 09:42-0400Mean blood huenialv86 mm[Hg]Anirudh Arroyo [facility]05-07-2024 09:42-0400 Respiratory rate15 /minBradfandi Arroyo [facility]05-07-2024 09:42-0400 Systolic blood xrbulsdz969 mm[Hg]Anirudh Arroyo [facility]04-24-2024 12:07-0400Body vsrnic618.7 cmDa King MD Work Phone: [facility]04-24-2024 12:07-0400Body mass index (BMI) [Ratio]26.46 kg/y8HxswxDa King MD Work Phone: [place] [address]-24-2024 12:07-0400Body xoocsa22.93 kgDa King MD Work Phone: [place] [address]-24-2024 12:07-0400Diastolic blood vkshuotj33 mm[Hg]Da King MD Work Phone: [phone] [address]-24-2024 12:07-0400Heart rate74 /min Da King MD Work Phone: [phone] [address]-24-2024 12:07-0400Respiratory rate 12 /minDa King MD Work Phone: [place] [address]-24-2024 12:07-2555FfV3% (BldA) [Mass fraction]98 %Da King MD Work Phone: [place] [address]-24-2024 12:07-0400Systolic blood pdwzuoyl853 mm[Hg]Da King MD Work Phone: [place] [address]-16-2024 15:33-0400Body vdtuaj185.7 cmEmily Kayla [employer].ENVIRONMENTAL ENGINEER SCIENTIST Work Phone: [phone] [address]-16-2024 15:33-0400Body rwqynm41.01 kgSheryl Garza [employer].ENVIRONMENTAL ENGINEER SCIENTIST Work Phone: [phone] [address]-16-2024 15:33-0400Diastolic blood hxggezgu78 mm[Hg]Sheryl Garza [employer].ENVIRONMENTAL ENGINEER SCIENTIST Work Phone: [phone]16-2024 15:33-0400Heart rate88 /min Sheryl Garza APRN.ENVIRONMENTAL ENGINEER SCIENTIST Work Phone: [phone] [address]-16-2024 15:33-7933UnQ8% (BldA) [Mass fraction]94 %Sheryl Garza [employer].ENVIRONMENTAL ENGINEER SCIENTIST Work Phone: [phone] [address]-16-2024 15:33-0400Systolic blood upgaxjyo210 mm[Hg]Sheryl Garza HAN Work Phone: [facility]04-16-2024 08:57-0400Body temperature 98.6 [degF]Ryan LIVE [facility]04-16-2024 08:57-0400Diastolic blood llduonyx07 mm[Hg]Ryan LIVE [facility] [place] [address]-16-2024 08:57-0400Heart rate70 /minRyan LIVE [facility] [place] [address]-16-2024 08:57-0400Respiratory rate16 /minRyan LIVE [facility] [place] [address]-16-2024 08:57-0400Systolic blood juqnzzdy942 mm[Hg]Ryan LIVE [facility]04-09-2024 11:21-0400Body qwhweh526.72 cmDO Erich Gillis Work Phone: [facility]04-09-2024 11:21-0400 Body mass index (BMI) [Ratio]27.3 kg/m2DO Erich Gillis Work Phone: [facility]04-09-2024 11:21-0400 Body qtfoomrbfyx05.1 [degF]DO Erich Gillis Work Phone: [facility]04-09-2024 11:21-0400 Body .64 kgDO Erich Gillis Work Phone: [facility]04-09-2024 11:21-0400 Diastolic blood ajsyiqzd14 mm[Hg]DO Erich Gillis Work Phone: [facility]04-09-2024 11:21-0400 Heart rate85 /minDO Erich Gillis Work Phone: [facility]04-09-2024 11:21-0400 SaO2% (BldA) [Mass fraction]96 %DO Erich Gillis Work Phone: [facility]04-09-2024 11:21-0400 Systolic blood mjajvdcu528 mm[Hg]DO Erich Gillis Work Phone: [facility]03-15-2024 10:34-0400 Diastolic blood okffvqbp26 mm[Hg]Kristie Saavedra [facility]03-15-2024 10:34-0400Heart rate90 /minAmanda Saavedra [facility]03-15-2024 10:34-0400Mean blood ahacoivv34 mm[Hg]Kristie Saavedra [facility]03-15-2024 10:34-0400 Respiratory rate18 /minAmanda Saavedra [facility]03-15-2024 10:34-0400 Systolic blood mm[Hg]Kristie Saavedra [facility]03-14-2024 14:32-0400Body zbesyy94.5 kgLorraine Oneill MD Work Phone: [facility]03-14-2024 14:32-0400Diastolic blood mm[Hg]Lorraine Oneill MD Work Phone: [facility]03-14-2024 14:32-0400Heart rate80 /min Lorraine Oneill MD Work Phone: [facility]03-14-2024 14:32-0400Systolic blood itmvjqif233 mm[Hg]Lorraine Oneill MD Work Phone: [facility]03-08-2024 15:21-0500Body bqtfje254.72 cmDO Erich Kuns Work Phone: [facility]03-08-2024 15:21-0500 Body zdxqovpbtsg17.5 [degF]DO Erich Kuns Work Phone: [facility]03-08-2024 15:21-0500 Body mnwypk80.64 kgDO Erich Kuns Work Phone: [facility]03-08-2024 15:21-0500 Diastolic blood tzdowuke12 mm[Hg]DO Erich Kuns Work Phone: [facility]03-08-2024 15:21-0500 Heart rate82 /minDO Erich Kuns Work Phone: [facility]03-08-2024 15:21-0500 Respiratory rate24 /minDO Erich Kuns Work Phone: [facility]03-08-2024 15:21-0500 SaO2% (BldA) [Mass fraction]97 %DO Erich Kuns Work Phone: [facility]03-08-2024 15:21-0500 Systolic blood mm[Hg]DO Erich Kuns Work Phone: [facility]03-04-2024 10:34-0500 Body .7 cmAndrea Lees MD Work Phone: [facility]03-04-2024 10:34-0500Body zyihzg25.65 kgAndrea Lees MD Work Phone: [facility]02-28-2024 11:22-0500Diastolic blood yuozxqhv83 mm[Hg]Anirudh Arroyo [facility]02-28-2024 11:22-0500Heart rate70 /minAnirudh Arroyo [facility]02-28-2024 11:22-0500 Respiratory rate16 /minBragiana Arroyo [facility]02-28-2024 11:22-1325YpD8% (BldA) [Mass fraction]95 %Anirudh Arroyo [facility]02-28-2024 11:22-0500 Systolic blood lulqxolq154 mm[Hg]Oleary Cruz [facility]02-28-2024 10:55-0500 Diastolic blood kubfslwh33 mm[Hg]Anirudh Arroyo [facility]02-28-2024 10:55-0500Heart rate71 /minBradfandi Cruz [facility]02-28-2024 10:55-0500 Respiratory rate16 /minBradford Cruz [facility]02-28-2024 10:55-1894AzR7% (BldA) [Mass fraction]97 %Anirudh Arroyo [facility]02-28-2024 10:55-0500 Systolic blood voycjxvb19 mm[Hg]Anirudh Arroyo [facility]02-28-2024 10:45-0500 Diastolic blood tqedsipt84 mm[Hg]Anirudh Arroyo [facility]02-28-2024 10:45-0500Heart rate81 /minBradfandi Arroyo [facility]02-28-2024 10:45-4671WuA9% (BldA) [Mass fraction]95 %Anirudh Arroyo [facility]02-28-2024 10:45-0500 Systolic blood uxgwacqh874 mm[Hg]Anirudh Arroyo [facility]02-28-2024 10:29-0500Mean blood zuxhhjlf95 mm[Hg]Anirudh Arroyo [facility]02-28-2024 10:29-0500 Respiratory rate20 /minBraevelinandi Arroyo [facility]02-28-2024 09:42-0500Body yamjbzxanoe98.7 [degF]Anirudh Arroyo [facility]02-28-2024 09:42-0500Mean blood bjatfgvd57 mm[Hg]Anirudh Arroyo [facility]02-27-2024 10:52-0500Body banujv267.72 cmDO Erich KODAs Work Phone: [facility]02-27-2024 10:52-0500 Body mass index (BMI) [Ratio]27.5 kg/m2DO Erich KODAs Work Phone: [facility]02-27-2024 10:52-0500 Body bmlhonckqlb09.6 [degF]DO Erich Kuns Work Phone: [facility]02-27-2024 10:52-0500 Body ldyomc92.1 kgDO Erich Kuns Work Phone: [facility]02-27-2024 10:52-0500 Diastolic blood hlvkwbuh40 mm[Hg]DO Erich Kuns Work Phone: [facility]02-27-2024 10:52-0500 Heart rate88 /minDO Erich Kuns Work Phone: [facility]02-27-2024 10:52-0500 Respiratory rate16 /minDO Erich Kuns Work Phone: [facility]02-27-2024 10:52-0500 SaO2% (BldA) [Mass fraction]98 %DO Erich Kuns Work Phone: [facility]02-27-2024 10:52-0500 Systolic blood rsvpewph685 mm[Hg]DO Erich Kuns Work Phone: [facility]02-09-2024 10:17-0500 Diastolic blood meaxurlj10 mm[Hg]Kristie Saavedra [facility]02-09-2024 10:17-0500Heart rate87 /minAmanda Saavedra [facility]02-09-2024 10:17-0500Mean blood cuhcghcn03 mm[Hg]Kristie Saavedra [address] [place], [place] 9676602-09-2024 10:17-0500 Respiratory rate18 /minAmanda Saavedra [address] [place], [place] 9676602-09-2024 10:17-0500 Systolic blood wshnqydm964 mm[Hg]Kristie Saavedra [address] [place], [place] 967[address]01-10-2024 09:08-0500Heart rate74 /minBradfandi Cruz [address] [place], [place] 9676601-10-2024 09:08-3051IzB8% (BldA) [Mass fraction]96 %Anirudh Arroyo [address] [place], [place] 967[address]01-10-2024 09:08-0500 Respiratory rate16 /minBradfandi Arroyo [address] [place], [place] 967[address]01-10-2024 09:08-0500 Diastolic blood cycptphh15 mm[Hg]Anirudh Arroyo [address] [place], [place] 967[address]01-10-2024 09:08-0500Mean blood swkzxeix155 mm[Hg]Anirudh Arroyo [address] [place], [place] 967[address]01-10-2024 09:08-0500 Systolic blood xvamevdl231 mm[Hg]Anirudh Arroyo [address] [place], [place] 967[address]01-10-2024 08:53-0500 Diastolic blood plmeimxk91 mm[Hg]Anirudh Arroyo [address] [place], [place] [address]67[address]01-10-2024 08:53-0500Heart rate70 /minBragiana Cruz [facility]01-10-2024 08:53-0500 Respiratory rate18 /minBragiana Cruz [facility]01-10-2024 08:53-6817QuY1% (BldA) [Mass fraction]96 %Anirudh Arroyo [facility]01-10-2024 08:53-0500 Systolic blood uoljxmlf440 mm[Hg]Anirudh Cruz [facility]01-10-2024 08:10-0500gluc 122 mg/dLBfarrukh Cruz [facility]01-10-2024 08:09-0500Heart rate73 /minBragiana Cruz [facility]01-10-2024 08:09-1528DbW6% (BldA) [Mass fraction]96 %Anirudh Arroyo [facility]01-10-2024 08:08-0500Body jabophbjleu12.7 [degF]Anirudh Arroyo [facility]01-10-2024 08:08-0500 Respiratory rate18 /minBragiana Arroyo [facility]01-10-2024 08:08-0500 Diastolic blood zngpaiua02 mm[Hg]Anirudh [facility]royo [facility]01-10-2024 08:08-0500Mean blood sephgkbg52 mm[Hg]Anirudh Arroyo [facility]01-10-2024 08:08-0500 Systolic blood kqovmqiy711 mm[Hg]Anirudh Arroyo [facility]11-29-2023 15:30-0500Body .72 cmBannerdrew Gillis Other [employer] Other 11-29-2023 15:30-0500Body mass index (BMI) [Ratio] 27.58 kg/o3Fpamn Kunlisa Other [employer] [facility] [employer] Other 11-29-2023 15:30-0500Body uwuppi98.28 kgBredrew Gillis Other [employer] Other 11-29-2023 15:30-0500Diastolic blood vzgowbyj91 mm[Hg] Erichdrew Gillis Other [employer] Other 11-29-2023 15:30-0500Respiratory rate18 /minBredrew Gillis Other [employer] Other 11-29-2023 15:30-4210FeY2% (BldA) [Mass fraction]96 % Erichdrew Gillis Other [employer] Other 11-29-2023 15:30-0500Systolic blood xkjavuld645 mm[Hg] Erichdrew Gillis Other [employer] [facility] [employer] Other 11-27-2023 11:01-0500Diastolic blood qkaigysu67 mm[Hg] Kristie [facility] [employer] [facility]11-27-2023 11:01-0500Heart rate80 /minAmanda [facility] [employer] [facility]11-27-2023 11:01-0500Mean blood dggfethd07 mm[Hg]Kristie [facility] [employer] [facility]11-27-2023 11:01-0500 Respiratory rate14 /minAmanda [facility]ucro [employer] [facility]11-27-2023 11:01-0500 Systolic blood eidebzcj523 mm[Hg]Kristiecrow Saavedra [facility]11-20-2023 10:38-0500Heart rate72 /minJoshkelsey Faisal [facility]11-20-2023 10:38-8294ChT1% (BldA) [Mass fraction]94 %Jamey Faisal [address] [place], [place] 967[address]11-20-2023 10:37-0500 Diastolic blood jgbfmexe20 mm[Hg]Jamey Faisal [facility]11-20-2023 10:37-0500Mean blood hzsimwwt66 mm[Hg]Jamey Faisal [facility]11-20-2023 10:37-0500 Systolic blood rluxpofs978 mm[Hg]Jamey Faisal [address] [place], [place] 967[address]11-20-2023 10:37-0500 Respiratory rate16 /minJoshkelsey Faisal [facility]11-20-2023 10:30-0500 Diastolic blood mm[Hg]Jameykenisha Ramirezner [facility]11-20-2023 10:30-0500Heart rate76 /minJoshua Faisal [facility]11-20-2023 10:30-0500 Respiratory rate16 /minJoshua Faisal [facility]11-20-2023 10:30-6685PbX2% (BldA) [Mass fraction]94 %Jamey Faisal [facility]11-20-2023 10:30-0500 Systolic blood euxudqxi613 mm[Hg]Jamey Faisal [address] [place], [place] 967[address]11-20-2023 09:54-0500Heart rate81 /minJamey Faisal [address] [place], [place] 967[address]11-20-2023 09:54-8396XtP2% (BldA) [Mass fraction]95 %Jamey Malone [address] [place], [place] 8835411-20-2023 09:53-0500Body tassyodydem37.52 [degF]Jameykenisha Ramirezner [address] [place], [place] 8835411-20-2023 09:53-0500 Diastolic blood mm[Hg]Jamey Malone [address] [place], [place] 8835411-20-2023 09:53-0500Mean blood ijgqkazq90 mm[Hg]Jameykelsey Ramirezner [address] [place], [place] 8835411-20-2023 09:53-0500 Systolic blood tuhaxusf819 mm[Hg]Jamey Ramirezner [address] [place], [place] 8835411-20-2023 09:52-0500 Respiratory rate14 /minJamey Ramirezner [address] [place], [place] 8835410-23-2023 11:02-0400 Diastolic blood ajmnyhts72 mm[Hg]Jamey Ramirezner [address] [place], [place] 8835410-23-2023 11:02-0400Heart rate79 /Zak Ramirezner [address] [place], [place] 8835410-23-2023 11:02-0400Mean blood gscqcyds20 mm[Hg]Jameykenisha Ramirezner [address]10-23-2023 11:02-0400 Respiratory rate14 /minChristianneshkelsey Faisal [address] [place], [place] 9676610-23-2023 11:02-0400 Systolic blood ywsshszj94 mm[Hg]Jamey Faisal [address] [place], [place] 8835409-21-2023 14:18-0400Body ivpebv145.7 cmSjaida Penaloza MD Work Phone: [facility]09-21-2023 14:18-0400Body erlwax76.38 kgHola Penaloza MD Work Phone: [facility]09-21-2023 14:18-0400Diastolic blood dawjsojf88 mm[Hg]Hola Penaloza MD Work Phone: [phone]09-21-2023 14:18-0400Heart rate84 /min Hola Penaloza MD Work Phone: [phone]09-21-2023 14:18-5706VzY0% (BldA) [Mass fraction]98 %Hola Penaloza MD Work Phone: [facility]09-21-2023 14:18-0400Systolic blood xmttjgdy763 mm[Hg]Hola Penaloza MD Work Phone: [facility]08-30-2023 13:30-0400Body ooegtb558.72 cmErich Gillis Other [employer] Other 08-30-2023 13:30-0400Body mass index (BMI) [Ratio]26 kg/f7OlfipErich Gillis Other [employer] Other 08-30-2023 13:30-0400Body xdtyjx41.57 kgErich Gillis Other [employer] Other 08-30-2023 13:30-0400Diastolic blood wpgmtbeq83 mm[Hg] Erich Gillis Other [employer] Other 08-30-2023 13:30-0400Respiratory rate16 /minErich Gillis Other [employer] Other 08-30-2023 13:30-1862IoD7% (BldA) [Mass fraction]94 % Erich Arsenios Other [facility] [employer] Other 08-30-2023 13:30-0400Systolic blood ezaluonz965 mm[Hg] Erich Kuns Other [facility] [employer] Other 08-29-2023 08:17-0400Diastolic blood lymwgtps53 mm[Hg] Jamey Malone [facility]08-29-2023 08:17-0400Heart rate64 /Zak Malone [facility]08-29-2023 08:17-0400Mean blood phcuaoty86 mm[Hg]Jamey Malone [facility]08-29-2023 08:17-0400 Respiratory rate16 /Zak Malone [facility]08-29-2023 08:17-0400 Systolic blood sjivgppa360 mm[Hg]Jamey Malone [facility]08-07-2023 12:45-0400 Diastolic blood mm[Hg]DO Erich Kuns Work Phone: [facility]08-07-2023 12:45-0400 Heart rate64 /minDO Erich Kuns Work Phone: [facility]08-07-2023 12:45-0400 Respiratory rate16 /minDO Erich Kuns Work Phone: [facility]08-07-2023 12:45-0400 SaO2% (BldA) [Mass fraction]94 %DO Erich Kuns Work Phone: [facility]08-07-2023 12:45-0400 Systolic blood mmbucykc106 mm[Hg]DO Erich Gillis Work Phone: [facility]08-07-2023 08:05-0400 Body nmesku001.72 cmDO Erich Gillis Work Phone: [facility]08-07-2023 08:05-0400 Body mass index (BMI) [Ratio]25.1 kg/m2DO Erich Gillis Work Phone: [facility]08-07-2023 08:05-0400 Body xxvecj46 kgDO Erichdrew Gillis Work Phone: [facility]08-07-2023 07:03-0400 Body tzypaqghfuc26.6 [degF]DO Erich Gillis Work Phone: [facility]07-31-2023 08:25-0400 Heart rate68 /minJamey Faisal [facility]07-31-2023 08:25-2835LkG8% (BldA) [Mass fraction]93 %Jamey Faisal [facility]07-31-2023 08:25-0400 Diastolic blood rcsezptg98 mm[Hg]Jamey Faisal [facility]07-31-2023 08:25-0400Mean blood uyjjxqpn61 mm[Hg]Jamey Faisal [facility]07-31-2023 08:25-0400 Systolic blood hooiiayl376 mm[Hg]Jamey Faisal [facility]07-31-2023 08:25-0400 Respiratory rate14 /minJoshua Faisal [facility]07-31-2023 08:21-0400 Diastolic blood yxuorhwy16 mm[Hg]Jamey Faisal [facility]07-31-2023 08:21-0400Heart rate70 /minChristianneshkelsey Faisal [facility]07-31-2023 08:21-0400 Respiratory rate14 /minJoshua Faisal [facility]07-31-2023 08:21-6875BhZ0% (BldA) [Mass fraction]94 %Jamey Faisal [facility]07-31-2023 08:21-0400 Systolic blood avsvagzm388 mm[Hg]Jamey Faisal [facility]07-31-2023 07:49-0400Heart rate71 /minChristianneshkelsey Faisal [facility]07-31-2023 07:49-0771WfA8% (BldA) [Mass fraction]95 %Jamey Faisal [facility]07-31-2023 07:49-0400 Diastolic blood yenscapz25 mm[Hg]Jamey Faisal [facility]07-31-2023 07:49-0400Mean blood ybrvlmwo46 mm[Hg]Jamey Faisal [facility]07-31-2023 07:49-0400 Systolic blood yzumppde379 mm[Hg]Jamey Faisal [facility]07-31-2023 07:49-0400Body zdwswlpygpw55.7 [degF]Jamey Faisal [facility]07-31-2023 07:48-0400 Respiratory rate12 /minJamey Faisal [facility]07-26-2023 10:30-0400Body .72 [facility] Christina Other [employer] Other 07-26-2023 10:30-0400Body mass index (BMI) [Ratio] 24.48 kg/o9Cgbnkyd Christina Other [facility] [employer] Other 07-26-2023 10:30-0400Body mpyoqh19.03 kgCollmorena Booth Other [facility] [employer] Other 07-18-2023 10:21-0400Diastolic blood wcpcghux31 mm[Hg] Jamey Fais[facility]07-18-2023 10:21-0400Heart rate92 /minChristianneshkelsey Faisal [facility]07-18-2023 10:21-0400Mean blood hpglcmka59 mm[Hg]Jamey Fais[facility]07-18-2023 10:21-0400 Respiratory rate14 /minJamey Faisal [facility]07-18-2023 10:21-0400 Systolic blood zrriinzd371 mm[Hg]Jamey [facility]06-27-2023 10:15-0400Body gokbqd567.72 cmColleen Christina Other [facility] [employer] Other 06-27-2023 10:15-0400Body mass index (BMI) [Ratio] 24.48 kg/d9Xhsabagmorena Booth Other [employer] Other 06-27-2023 10:15-0400Body eihcie65.03 kgCollmorena Booth Other [facility] [employer] Other 06-22-2023 10:15-0400Body ciwmfw189.72 cmBrett Arsenios Other [employer] Other 06-22-2023 10:15-0400Body mass index (BMI) [Ratio] 24.57 kg/x7Jrykj Arsenios Other [employer] Other 06-22-2023 10:15-0400Body .3 kgBrett Arsenios Other [employer] Other 06-22-2023 10:15-0400Diastolic blood kmvbpkio62 mm[Hg] Erich Arsenios Other [employer] Other 06-22-2023 10:15-0400Respiratory rate16 /minBredrew Gillis Other [employer] Other 06-22-2023 10:15-4601VbX1% (BldA) [Mass fraction]95 % Erichdrew Gillis Other [employer] Other 06-22-2023 10:15-0400Systolic blood rlhhivfh203 mm[Hg] Erichdrew Cesars Other [employer] Other 05-31-2023 13:00-0400Body .72 cmBrett Carlin Other [employer] Other 05-31-2023 13:00-0400Body mass index (BMI) [Ratio] 24.48 kg/l8Dacvt Arsenios Other [employer] Other 05-31-2023 13:00-0400Body qbiuoxlgtxk24.5 [degF]Erichdrew Cesars Other [employer] Other 05-31-2023 13:00-0400Body mjaqya41.03 kgBrett Kuns Other [facility] [facility] [employer] Other 05-31-2023 13:00-0400Diastolic blood tabclheg31 mm[Hg] Erich Kuns Other [employer] Other 05-31-2023 13:00-0400Respiratory rate18 /minBrett Kuns Other [employer] Other 05-31-2023 13:00-8828NfJ7% (BldA) [Mass fraction]96 % Erich Kuns Other [employer] Other 05-31-2023 13:00-0400Systolic blood jcyxvdxt21 mm[Hg] Erich Kuns Other [employer] [facility] [employer] Other 05-18-2023 20:08-0400Body uzaghp110.72 cmDO Erich Kuns Work Phone: [facility]05-18-2023 20:08-0400 Body oqgyajgczto90.9 [degF]DO Erich Kuns Work Phone: [facility]05-18-2023 20:08-0400 Body ekwvoj48.57 kgDO Erich Kuns Work Phone: [facility]05-18-2023 20:08-0400 Diastolic blood zvnontxh48 mm[Hg]DO Erich Kuns Work Phone: [facility]05-18-2023 20:08-0400 Heart rate96 /minDO Erich Kuns Work Phone: [facility]05-18-2023 20:08-0400 Respiratory rate20 /minDO Erich Arsenios Work Phone: [facility]05-18-2023 20:08-0400 SaO2% (BldA) [Mass fraction]94 %DO Erich Kuns Work Phone: [facility]05-18-2023 20:08-0400 Systolic blood ljbsmepe503 mm[Hg]DO Erich Kuns Work Phone: [facility]05-04-2023 11:46-0400 Diastolic blood mm[Hg]Reyes Zumbar [facility]05-04-2023 11:46-0400 Diastolic blood ypeetxoy56 mm[Hg]Reyes Zumbar [facility]05-04-2023 11:46-0400Heart rate95 /minZachary Zumbar [facility]05-04-2023 11:46-0400Heart rate91 /minZachary Zumbar [facility]05-04-2023 11:46-0400Mean blood aaetpbzc64 mm[Hg]Reyes Zumbar [facility]05-04-2023 11:46-0400 Respiratory rate14 /minZachary Zumbar [facility]05-04-2023 11:46-0400 Systolic blood amzbowod14 mm[Hg]Reyes Zumbar [facility]05-04-2023 11:46-0400 Systolic blood tihrgrgu409 mm[Hg]Reyes Zum[facility]04-25-2023 13:25-0400Body nktqyf803.7 cmDa King MD Work Phone: [place] [address]-25-2023 13:25-0400Body faidya09.58 kgDa King MD Work Phone: [facility]04-25-2023 13:25-0400Diastolic blood qiihokbq31 mm[Hg]Da King MD Work Phone: [facility]04-25-2023 13:25-0400Heart rate80 /min Da King MD Work Phone: [facility]04-25-2023 13:25-0400Respiratory rate 12 /minDa King MD Work Phone: [place] [address]-25-2023 13:25-4939AaA8% (BldA) [Mass fraction]98 %Da King MD Work Phone: [facility]04-25-2023 13:25-0400Systolic blood achlwxrt338 mm[Hg]Da King MD Work Phone: [facility]02-16-2023 11:45-0500Body falgme187.72 cmErich Arseniolisa Other [employer] Other 02-16-2023 11:45-0500Body mass index (BMI) [Ratio] 24.78 kg/m1IfsspErich Gillis Other [employer] Other 02-16-2023 11:45-0500Body .94 kgErich Gillis Other [employer] Other 02-16-2023 11:45-0500Diastolic blood ohearjib97 mm[Hg] Erich Gillis Other [employer] Other 02-16-2023 11:45-0500Respiratory rate18 /minErich Gillis Other [employer] Other 02-16-2023 11:45-0539BkB7% (BldA) [Mass fraction]97 % Erich Gillis Other [employer] Other 02-16-2023 11:45-0500Systolic blood ymhjvrce192 mm[Hg] Erich Gillis Other [employer] Other 02-13-2023 13:00-0500Body .07 kgKarl Cook [employer]ARD[employer].ENVIRONMENTAL ENGINEER SCIENTIST Work Phone: [employer] [phone] 13:00-0500Diastolic blood mm[Hg]Karl Cook [employer] WARD[employer].ENVIRONMENTAL ENGINEER SCIENTIST Work Phone: [facility] [id number] 13:00-0500Heart rate98 /min Karl Cook [employer] WARDEN.ENVIRONMENTAL ENGINEER SCIENTIST Work Phone: [employer] [id number] 13:00-0500Systolic blood gasyhgdu208 mm[Hg]Karl Cook [employer]ARD[employer].ENVIRONMENTAL ENGINEER SCIENTIST Work Phone: [facility]01-30-2023 10:45-0500Body gcbzda244.72 cmErich Gillis Other [employer] [facility] [employer] Other 01-30-2023 10:45-0500Body mass index (BMI) [Ratio] 24.99 kg/f7EzylsErich Gillis Other [employer] Other 01-30-2023 10:45-0500Body .57 kgErich Gillis Other [employer] Other 01-30-2023 10:45-0500Diastolic blood zavhersg37 mm[Hg] Erich Gillis Other [employer] Other 01-30-2023 10:45-0500Respiratory rate18 /minBrett Arsenios Other [employer] Other 01-30-2023 10:45-6592VfT4% (BldA) [Mass fraction]95 % Erichdrew Cesars Other [employer] Other 01-30-2023 10:45-0500Systolic blood mm[Hg] Erich Arsenios Other [employer] Other 01-23-2023 11:30-0500Body .72 cmBredrew Gillis Other [employer] Other 01-23-2023 11:30-0500Body mass index (BMI) [Ratio] 24.99 kg/h4Qrhed Kunlisa Other [employer] Other 01-23-2023 11:30-0500Body ljynkn28.57 kgBredrew Gillis Other [employer] Other 01-23-2023 11:30-0500Diastolic blood vajcgudc39 mm[Hg] Erich Arsenios Other [employer] Other 01-23-2023 11:30-0500Respiratory rate18 /minBrett Kuns Other [employer] Other 01-23-2023 11:30-4938McF0% (BldA) [Mass fraction]97 % Erichdrwe Cesars Other [employer] Other 01-23-2023 11:30-0500Systolic blood ssihkhqd321 mm[Hg] Erich Gillis Other [employer] Other [id number] 09:11-0500Body xajjqa776.7 cmDa King MD Work Phone: [facility]11-07-2022 09:11-0500Body dppyjj03.75 kgDa King MD Work Phone: [facility]11-07-2022 09:11-0500Diastolic blood ybkavrym91 mm[Hg]Da King MD Work Phone: [facility]11-07-2022 09:11-0500Heart rate70 /min Da King MD Work Phone: [facility]11-07-2022 09:11-0500Respiratory rate 12 /minDa King MD Work Phone: [facility]11-07-2022 09:11-5488HgF8% (BldA) [Mass fraction]98 %Da King MD Work Phone: [facility]11-07-2022 09:11-0500Systolic blood uahhpwft573 mm[Hg]Da King MD Work Phone: [facility]10-27-2022 14:45-0400Body dzvgde089.72 cmErich Gillis Other [employer] Other 10-27-2022 14:45-0400Body mass index (BMI) [Ratio] 26.15 kg/n9IfwuwErich Gillis Other [employer] Other 10-27-2022 14:45-0400Body zkmsag29.02 kgErich Gillis Other [employer] Other 10-27-2022 14:45-0400Diastolic blood ptevunwd18 mm[Hg] Erich Gillis Other [employer] Other 10-27-2022 14:45-0400Respiratory rate16 /minBrett Kuns Other [employer] Other 10-27-2022 14:45-5421NvH5% (BldA) [Mass fraction]98 % Erich Kuns Other [employer] Other 10-27-2022 14:45-0400Systolic blood ldcoehrw865 mm[Hg] Erich Kuns Other [employer] Other 10-10-2022 15:53-0400Body hhiesv853.7 cmAndrea Lees MD Work Phone: [facility]10-10-2022 15:53-0400Body dgavjv77.84 kgAndrea Lees MD Work Phone: [facility]09-29-2022 14:30-0400Body pxrjan692.72 cmErich Gillis Other [employer] Other 09-29-2022 14:30-0400Body mass index (BMI) [Ratio] 25.63 kg/z0HlnenErich Cesars Other [employer] Other 09-29-2022 14:30-0400Body csaatt10.48 kgBredrew Gillis Other [employer] Other 09-29-2022 14:30-0400Diastolic blood nuegwjdf34 mm[Hg] Erich Kuns Other [employer] Other 09-29-2022 14:30-0400Respiratory rate16 /minBrett Kuns Other [employer] Other 09-29-2022 14:30-8856ExQ1% (BldA) [Mass fraction]98 % Erich Kuns Other [employer] Other 09-29-2022 14:30-0400Systolic blood winkykov973 mm[Hg] Erich Kuns Other [employer] Other 09-09-2022 14:00-0400Body .72 cmBrett Kuns Other [employer] Other 09-09-2022 14:00-0400Diastolic blood jqgiyphk53 mm[Hg] Erich Kuns Other [employer] Other 09-09-2022 14:00-0400Respiratory rate18 /minBrett Kuns Other [employer] Other 09-09-2022 14:00-1009QnI4% (BldA) [Mass fraction]95 % Erich Kuns Other [facility] [facility] [employer] Other 09-09-2022 14:00-0400Systolic blood jyvglbad403 mm[Hg] Erich Kuns Other [employer] Other 08-29-2022 09:33-0400Diastolic blood ikcjjldc15 mm[Hg] Jamey Ramirezner [facility]08-29-2022 09:33-0400 Systolic blood kiilrych460 mm[Hg]Jamey Malone [facility]08-29-2022 09:25-0400 Diastolic blood fsjuscjw579 mm[Hg]Jamey Malone [facility]08-29-2022 09:25-0400Heart rate65 /Zak Malone [facility]08-29-2022 09:25-0400Mean blood mm[Hg]Jamey Malone [address] [place], [place] [address]-29-2022 09:25-0382GiL3% (BldA) [Mass fraction]95 %Jamey Malone [facility]08-29-2022 09:25-0400 Systolic blood sjdyzexp544 mm[Hg]Jamey Malone [address] [place], [place] 9676[address]-29-2022 09:21-0400 Diastolic blood solsibmu32 mm[Hg]Jamey Malone [address] [place], [place] [id number] 09:21-0400Heart rate59 /Zak Malone [facility]08-29-2022 09:21-0400 Respiratory rate18 /Zak Malone [facility]08-29-2022 09:21-3426EnQ5% (BldA) [Mass fraction]96 %Jamey Malone [facility]08-29-2022 09:21-0400 Systolic blood ibxjcviv568 mm[Hg]Jamey Malone [address] [place], [place] [id number] 09:03-0400Body zsbkrmcrjmi57.88 [degF]Jamey Malone [facility]08-29-2022 09:03-0400Heart rate67 /Zak Malone [address] [place], [place] 9[address]-29-2022 09:03-0400Mean blood whlxbhla740 mm[Hg]Jamey Malone [facility]08-29-2022 09:03-2759ZaK5% (BldA) [Mass fraction]96 %Jamey Malone [facility]08-19-2022 13:15-0400Body vxlwed495.72 cmErich Gillis Other [employer] Other 08-19-2022 13:15-0400Body mass index (BMI) [Ratio] 26.15 kg/e0LphwgErich Gillis Other [employer] Other 08-19-2022 13:15-0400Body jgvgep75.02 kgErich Gillis Other [employer] Other 08-19-2022 13:15-0400Diastolic blood dqmbatkj60 mm[Hg] Erich Gillis Other [employer] Other 08-19-2022 13:15-0400Respiratory rate16 /minErich Gillis Other [employer] Other 08-19-2022 13:15-2384BsN5% (BldA) [Mass fraction]96 % Erich Gillis Other [employer] Other 08-19-2022 13:15-0400Systolic blood pujwgytz099 mm[Hg] Erich Gillis Other [employer] Other 08-03-2022 11:06-0400Body .7 cmDa King MD Work Phone: [facility]08-03-2022 11:06-0400Body djgoje38.48 kgDa King MD Work Phone: [facility]08-03-2022 11:06-0400Diastolic blood mm[Hg]Da King MD Work Phone: [facility]08-03-2022 11:06-0400Heart rate74 /min Da King MD Work Phone: [facility]08-03-2022 11:06-8748ZaV1% (BldA) [Mass fraction]96 %Da King MD Work Phone: [facility]08-03-2022 11:06-0400Systolic blood caaeddet51 mm[Hg]Da King MD Work Phone: [facility]07-19-2022 14:00-0400Body hhedqo603.72 cmErich Gillis Other [employer] Other 07-19-2022 14:00-0400Body mass index (BMI) [Ratio] 25.69 kg/q2XycpzErich Gillis Other [employer] Other 07-19-2022 14:00-0400Body xkopzm53.66 kgErich Gillis Other [employer] Other 07-19-2022 14:00-0400Diastolic blood mm[Hg] Erich Gillis Other [employer] Other 07-19-2022 14:00-0400Respiratory rate16 /minErich Gillis Other [employer] Other 07-19-2022 14:00-2415TlA1% (BldA) [Mass fraction]96 % Erich Gillis Other [employer] Other 07-19-2022 14:00-0400Systolic blood ltrryhue880 mm[Hg] Erich Gillis Other [employer] Other 07-14-2022 15:23-0400Body xbsyod234.7 Vicky Penaloza MD Work Phone: [phone]07-14-2022 15:23-0400Body arfttn21.43 kgHola Penaloza MD Work Phone: [phone]07-14-2022 15:23-0400Diastolic blood mm[Hg]Hloa Penaloza MD Work Phone: [phone]07-14-2022 15:23-0400Heart rate85 /min Hola Penaloza MD Work Phone: [facility]07-14-2022 15:23-0400Systolic blood dvrjbzdy135 mm[Hg]Hola Penaloza MD Work Phone: [facility]07-14-2022 09:36-0400Body eqsddr350.7 cmEkristen Garza [employer].ENVIRONMENTAL ENGINEER SCIENTIST Work Phone: [phone]07-14-2022 09:36-0400Body fsoubr34.84 kgSheryl Garza [employer].ENVIRONMENTAL ENGINEER SCIENTIST Work Phone: [facility]07-14-2022 09:36-0400Diastolic blood hzpjocyn29 mm[Hg]Sheryl Garza [employer].ENVIRONMENTAL ENGINEER SCIENTIST Work Phone: [facility]07-14-2022 09:36-0400Heart rate96 /min Sheryl Garza [employer].ENVIRONMENTAL ENGINEER SCIENTIST Work Phone: [facility]07-14-2022 09:36-5763SyW9% (BldA) [Mass fraction]95 %Sheryl Garza [employer].ENVIRONMENTAL ENGINEER SCIENTIST Work Phone: [place] [address]-14-2022 09:36-0400Systolic blood wuwuphyp889 mm[Hg]Sheryl Garza [employer].ENVIRONMENTAL ENGINEER SCIENTIST Work Phone: [facility]07-11-2022 10:45-0400Body heberu038.72 cmErich Gillis Other [employer] Other 07-11-2022 10:45-0400Body mass index (BMI) [Ratio] 25.39 kg/a3QttybErich Gillis Other [employer] Other 07-11-2022 10:45-0400Body iapeusozatw01.6 [degF]Erich Gillis Other [employer] Other 07-11-2022 10:45-0400Body wrcups88.75 kgErich Gillis Other [employer] Other 07-11-2022 10:45-0400Diastolic blood mm[Hg] Erich Gillis Other [employer] Other 07-11-2022 10:45-0400Respiratory rate18 /minErich Gillis Other [employer] Other 07-11-2022 10:45-1503SaI7% (BldA) [Mass fraction]98 % Erichdrew Gillis Other [employer] Other 07-11-2022 10:45-0400Systolic blood kdpcgoug357 mm[Hg] Erich Gillis Other [employer] Other 02-28-2022 10:15-0500Body zfypmx904.72 cmBredrew Gillis Other [employer] Other 02-24-2022 15:15-0500Body .72 cmCtiesha Abel Other [facility] [employer] Other 02-24-2022 15:15-0500Body mass index (BMI) [Ratio] 25.24 kg/b0Nirhailmabel Abel Other [facility] [employer] Other 02-24-2022 15:15-0500Body nylwxs93.3 kgCammabel Abel Other [facility] [employer] Other 01-19-2022 11:30-0500Body .72 Maurice Booth Other [facility] [employer] Other 01-19-2022 11:30-0500Body mass index (BMI) [Ratio] 25.85 kg/q8Fhbixhinat Booth Other [employer] Other 01-19-2022 11:30-0500Body xwmkry65.11 kgConat Booth Other [employer] Other Encounters Encounter DateEncounter TypeCare ProviderFacilityStart: 80-47-6799maowjlbmjm Ryan LIVEFacility:EU SandsaeidyStart: 02-12-2025 End: 27-24-4198wmovlnqhoxEndcffd P COOKFacility:[place]kyStart: 02-12-2025 End: 45-15-7000Bmhpnja encounter procedureRyan LIVE [facility] [place] Start: 01-28-2025 End: 54-50-7969dtsliwmdthThovq Kuns DO Work Phone: [phone]-UBQKBlzod: 01-28-2025 End: 50-98-9469Koyuntw encounter procedureAntony Ellis MD-[facility] Work Phone: Start: 01-18-2025 End: 91-17-7966onaajodndsPQQHK ROGER KUNSFacility:[facility] Start: 01-09-2025 End: 58-33-0383ptyulfkuhrRDOQD ROGER KUNSFacility:[facility] Start: 12-18-2024 End: 83-59-2954kvdizrymzfYprvf Kuns DO Work Phone: [facility] Work Phone: Start: 12-18-2024 End: 40-56-3152Nbwbbed encounter procedureErich Gillis DO-[facility] Work Phone: Start: 23-23-3279Xrj-patient / Non-visitLorraine Oneill- [facility] Work Phone: Start: 11-28-2024 End: 72-51-2045jojjvxnpkpAYRZA ROGER KUNSFacility:[facility] Start: 11-13-2024 End: 27-60-7163Ytixyrctl encounterLorraine Oneill MD Work Phone: EndocrinologyComment on above:OrdersStart: 11-09-2024 End: 49-77-0112coznwhpfkyFvcotg Hamaty MD Work Phone: EndocrinologyStart: 11-09-2024 End: 16-85-2545Esdjboh encounter procedureLorraine Oneill MD Work Phone: EndocrinologyComment on above:DiabetesStart: 10-26-2024 End: 56-77-5890QbcrpyNapxj Mazur PA-C Work Phone: NeurologyComment on above:Refill RequestStart: 10-22-2024 End: 34-46-2995chghnvvaniBefcvcdsuov Subramaniam MD Work Phone: spine InstituteStart: 10-22-2024 End: 14-65-0890Jzopgvy encounter Jacoby Day MD Work Phone: spine InstituteComment on above:InjectionStart: 10-17-2024 End: 42-15-2711Qhatpdadg encounterDori Padilla PA-C Work Phone: NeurologyStart: 10-11-2024 End: 36-88-7288Mhrtkzntl encounterPhillip Danika Cohen DO Work Phone: spine InstituteComment on above:Post Injection QuestionsStart: 10-09-2024 End: 96-47-0157paromhhdjdCEMTV LEONARDO GILLISFacility:[facility] Start: 09-27-2024 End: 28-25-4668Xswhwh consultation new/estab patient 62 Nohelia Day MD Work Phone: Spine InstituteComment on above:Lumbosacral spondylosis with radiculopathy; Scoliosis, unspecified scoliosis type, unspecified spinal region; Spinal stenosis of lumbar region, unspecified whether neurogenic claudication presentStart: 09-27-2024 End: 05-04-0601lwllxvjqrlSTDTHPJ KHALAFFacility:[facility] Hospitaltart: 09-26-2024 End: 86-15-9173Uccwwydnx encounterPhiomar Cohen DO Work Phone: spine InstituteComment on above:Preperations for Procedure CallStart: 09-25-2024 End: 18-33-6955Gdxcogtvv encounterPhillip G Mendis DO Work Phone: spine InstituteComment on above:Preperations for ProcedureStart: 09-21-2024 End: 18-78-2152Ssgfoc OnlyPhillscar G Mendis DO Work Phone: spine InstituteComment on above:Trochanteric bursitis of right hip (Primary Dx); Lumbosacral spondylosis with radiculopathy; Scoliosis, unspecified scoliosis type, unspecified spinal region; Lumbosacral stenosisStart: 09-18-2024 End: 76-68-2254itslveciccRuypqch M Khalaf MD Work Phone: spine InstituteComment on above:InjectionStart: 09-12-2024 End: 92-24-4719dkjqsbhtcyYhxzngoel [facility] Center Work Phone: Start: 09-12-2024 End: 76-07-6349Glnqdut encounter procedureCarolinas Continuecare [facility] GroupMoh[facility] Work Phone: Start: 09-11-2024 End: 52-50-5992xydrmanccrANXAM ROGER KUNSFacility:[facility] Start: 09-11-2024 End: 75-84-3600Oqbgfji encounter procedureTamary Wagoner MD Work Phone: spine InstituteComment on above:Trochanteric bursitis of right hip (Primary Dx); Lumbosacral spondylosis with radiculopathy; Scoliosis, unspecified scoliosis type, unspecified spinal region; Lumbosacral stenosisStart: 09-04-2024 End: 60-46-6503vjcvpevmkxIx Pcp (Hist)[facility] EnterpriseStart: 09-04-2024 End: 13-98-1706Mmmdqoq encounter procedureNo Pcp (Hist)[facility] EnterpriseStart: 08-29-2024 End: 19-01-2989lnwwyjaqfeAQEEA P GRIFFINFacility:[facility] Hospitaltart: 08-29-2024 End: 74-81-2910kjnmmxhrueBRDHI ROGER KUNSFacility:[facility] Start: 08-27-2024 End: 22-14-7906vbednlvbadGglyq Mazur PA-C Work Phone: NeurologyComment on above:Orthostatic hypotension (Primary Dx); Small fiber neuropathyStart: 08-27-2024 End: 98-01-5088Zutygbyposnz consultation with Jocelyn Padilla PA-C Work Phone: NeurologyStart: 08-21-2024 End: 42-15-8285nqmzdrfwkcNOCXO ROGER KUNSFacility:[facility] Start: 08-21-2024 End: 27-45-0510scqewobiolXznaoup P COOKFacility:SEAN SinghuskyStart: 08-21-2024 End: 20-53-7901Txipbmj encounter Kelsy Oneill MD Work Phone: EndocrinologyComment on above:Type 2 diabetes mellitus with stage 3a chronic kidney disease, without long-term current use of insulin (HCC) (Primary Dx); Mixed hyperlipidemia; 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athy (HCC); Constipation, unspecified constipation typeStart: 08-16-2024 End: 12-12-5997Zpxsxbqvd encounterPhillscar Cohen DO Work Phone: spine InstituteComment on above:Follow Up Phone Call (Post Injection/)Start: 08-14-2024 End: 18-65-7140stkxnvazezFHUKZCJ MENDISFacility:[facility] Hospitaltart: 08-01-2024 End: 21-14-8891Gtpapu-up encounterKarl Cook APRN.CNP Work Phone: EndocrinologyStart: 07-31-2024 End: 85-27-7416Qbpizchhg encounterPhiomar Cohen DO Work Phone: spine InstituteComment on above:Preperations for Procedure (Mychart)Start: 07-27-2024 End: 19-07-9806Vtutlq OnlyPhiomar Garnica Mendpao DO Work Phone: spine InstituteComment on above:Lumbosacral spondylosis with radiculopathy (Primary Dx); Spinal stenosis of lumbar region, unspecified whether neurogenic claudication presentStart: 07-23-2024 End: 75-52-9461cclcvcsnvbNSYNWMadelyn Juradoity:[facility] Start: 07-23-2024 End: 99-45-8885pucpnmpvpnZRSQH ROGER KUNSFacility:[facility] Start: 95-52-6004Uik-patient / Non-visitFirriverside wal[facility] Phys[facility] GroupC[facility] Work Phone: Start: 07-17-2024 End: 45-02-0704vqhajtilymFnnhchm P COOKFacility:SEAN SanduskyStart: 07-13-2024 End: 95-83-0670Iltnmtgkb encounterLorraine Oneill MD Work Phone: EndocrinologyComment on above:Patient Update ([place] MED) Start: 07-12-2024 End: 71-25-2514Khzdvzl encounter procedureLorraine Oneill MD Work Phone: EndocrinologyComment on above:LyricaStart: 07-12-2024 End: 79-13-3328wqewerpxcaNpvxxyn M Khalaf MD Work Phone: Spfbb InstituteComment on above:Lumbosacral spondylosis with radiculopathy (Primary Dx); Scoliosis, unspecified scoliosis type, unspecified spinal region; Spinal stenosis of lumbar region, unspecified whether neurogenic claudication presentStart: 07-12-2024 End: 66-60-5183Iirbkujflbuq consultation with patientSteve Wagoner MD Work Phone: Sprvw InstituteStart: 07-10-2024 End: 72-97-0436Wcifxopyw encounterKarl Cook APRN.CNP Work Phone: EndocrinologyComment on above:Forms ([place] Med)Start: 06-29-2024 End: 99-52-7260Xvozsrkdg encounterPhiomar Cohen DO Work Phone: Spine InstituteComment on above:Post Injection QuestionsStart: 06-26-2024 End: 66-81-5703Iahxrctsa encounterKarl Cook APRN.ENVIRONMENTAL ENGINEER SCIENTIST Work Phone: EndocrinologyComment on above:Insurance Authorization (Approval - tirzepatide (MOUNJARO) 7.5 mg/0.5 mL pen injector)Start: 06-26-2024 End: 41-72-3808cfqybjfigxKXMLN ROGER KUNSFacility:[facility] Start: 06-25-2024 End: 42-30-1416kytoyihvxoBFCOJ ROGER KUNSFacility:[facility] Start: 06-25-2024 End: 09-12-6398Pzwotwp encounter Janessa Cook APRN.CNP Work Phone: EndocrinologyComment on above:Type 2 diabetes mellitus with stage 3a chronic kidney disease, without long-term current use of insulin (HCC) (Primary Dx); 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athy (HCC); Mixed hyperlipidemiaStart: 06-19-2024 End: 30-38-5902Awiyanguc encounterEmwaqas Morrow RD Work Phone: EndocrinologyComment on above:Patient Question (Pt calling for initial appt for spouse - pt reports significant unintentional weig ht loss. )Start: 06-14-2024 End: 19-99-5695WedvspCubno Griffin MD Work Phone: CardiologyComment on above:Refill RequestStart: 06-13-2024 End: 39-59-4879Qfoedizrz encounterPhiomar Garnica Mendis DO Work Phone: Spxbt InstituteComment on above:Preperations for Procedure CallStart: 06-12-2024 End: 95-60-3373Qksgjda encounter Charlene Gillis DO Work Phone: [facility] CtrStart: 06-12-2024 End: 72-96-6011kioayppipzAepbc KunsFacility:[facility] Start: 06-06-2024 End: 29-85-5386Jnsonjoli encounterPhillip G Mendis DO Work Phone: Spplp InstituteComment on above:Preperations for Procedure (Mychart)Start: 06-05-2024 End: 46-50-0634Ozhjrphoo encounterPhillip G Mendis DO Work Phone: NeurologyComment on above:AppointmentStart: 05-30-2024 End: 19-64-3361diihavcqzmRyfbuenzjUniversity Hospitals [facility] Work Phone: Start: 05-30-2024 End: 23-62-5340Zrovvmu encounter procedureCarolinas [facility]care [facility] Physician GroupMoh[facility] Work Phone: Start: 05-23-2024 End: 11-05-1266Xqzaynyfe encounterPhillip G Mendis DO Work Phone: spine InstituteComment on above:Preperations for Procedure CallStart: 05-23-2024 End: 34-36-0978zzvxppvaanVfhrhmqwtCommunity [facility] Work Phone: Start: 05-23-2024 End: 91-39-5352Jizzqjx encounter procedureCarolinas [facility] Work Phone: Start: 05-21-2024 End: 67-97-0480Mikipndbh encounterPhillip G Mendis DO Work Phone: spine InstituteComment on above:Preperations for Procedure (Mychart)Start: 05-21-2024 End: 51-44-2108pvpwenbdijMyghore Candace Downs MDFacility:PM Jazmín Start: 05-17-2024 End: 29-51-1529Drvmxa OnlyPhillip Danika Mendis DO Work Phone: spine InstituteComment on above:Spinal stenosis of lumbar region, unspecified whether neurogenic claudication present (Primary Dx); Lumbosacral spondylosis with radiculopathyStart: 05-17-2024 End: 60-19-8310DdkeovCmugp Hansel SHORT Work Phone: NeurologyComment on above:Refill RequestStart: 05-14-2024 End: 59-72-3797Jdqejzkbh encounterTamary Wagoner MD Work Phone: Sphlh InstituteComment on above:ResultsStart: 10-33-7932Jpc-patient / Non-visitCarolinas [facility]care [facility] Physician GroupC[facility] Professional [facility] Work Phone: Start: 05-11-2024 End: 73-15-6959hntbolseyzKXZOXQ HAMATYFacility:[facility]ivien HospitalStart: 05-11-2024 End: 53-44-7688Uhcmmoykdv hospital visit by physicianXr [facility] Work Phone: [facility] Radiology GeneralComment on above:Fall, initial encounter [W19.XXXA]Start: 05-09-2024 End: 95-78-1793ywecfnnchpPephopcblCommunity Regional Medical Center Work Phone: Start: 05-09-2024 End: 04-57-8150Iolvpuo encounter procedureCarolinas Continuecare Hospital At University Physician GroupKind[facility] Work Phone: Start: 05-01-2024 End: 31-60-9976Uscqpwmwn encounterMarleo Cook [employer]AME [employer]ARDEN.ENVIRONMENTAL ENGINEER SCIENTIST Work Phone: EndocrinologyComment on above:Prior Authorization (Mounjaro)Start: 04-26-2024 End: 22-91-7755Qtrilsphc encounterMary Joyce [employer]AME WARDEN.ENVIRONMENTAL ENGINEER SCIENTIST Work Phone: EndocrinologyComment on above:Medication ProblemStart: 04-24-2024 End: 86-73-7669snyedzbpmoYjnn Capelety [employer] GAME WARDEN.ENVIRONMENTAL ENGINEER SCIENTIST Work Phone: EndocrinologyStart: 04-24-2024 End: 74-56-4236Xcsxutf encounter procedureKarl Cook [employer]ARDEN.ENVIRONMENTAL ENGINEER SCIENTIST Work Phone: EndocrinologyComment on above:Insurance AARP for part DStart: 03-30-2024 End: 42-19-6403defvxduzppElii Rueth RD Work Phone: EndocrinologyStart: 03-30-2024 End: 23-16-5954Vkekyr-up encounterEmwaqas Morrow RD Work Phone: EndocrinologyComment on above:Medical Nutrition Therapy (Diabetes management follow-up)Start: 03-22-2024 End: 02-74-9546HworerWxbap P Schwartz [employer]AME WARDEN.ENVIRONMENTAL ENGINEER SCIENTIST Work Phone: NeurologyComment on above:Refill RequestStart: 03-20-2024 End: 66-67-2337qcerddurejSYQBV ROGER KUNSFacility:[facility] Start: 03-20-2024 End: 04-41-0215Qpfjpte encounter Rody Rubio MD Work Phone: Neurological RestorationComment on above:Postural instability (Primary Dx); Abnormal saccadic eye movement; VertigoStart: 20-99-3413Sap-patient / Non-visitCarolinas [facility]care [facility] Physician Formerly [facility] Work Phone: Start: 03-01-2024 End: 09-17-6765Nnfutgk encounter procedureFisher[facility] Work Phone: Start: 03-01-2024 End: 63-06-4829hzfmvuexizFwpkkwi M Khalaf MD Work Phone: [facility] Work Phone: Comment on above:Fall, initial encounter (Primary Dx); Spinal stenosis of lumbar region, unspecified whether neurogenic claudication present; Lumbosacral spondylosis with radiculopathy; Scoliosis, unspecified scoliosis type, unspecified spinal regionStart: 03-01-2024 End: 84-99-8355Ykwybmmatmvo consultation with patientSteve Wagoner MD Work Phone: Spine InstituteStart: 02-29-2024 End: 19-74-9770UytibrUnple P Manning [employer] G[employer] WARDEN.ENVIRONMENTAL ENGINEER SCIENTIST Work Phone: NeurologyComment on above:Refill RequestStart: 02-22-2024 End: 70-15-5108fdhrzmgmpcNhnvwqzitCommunity Regional Medical Center Work Phone: Start: 02-22-2024 End: 35-68-1259Uwfhuuy encounter procedureCarolinas [facility]care [facility] Physician Former[facility] Work Phone: Start: 02-20-2024 End: 70-52-4502Ydwdolszo encounterTamary Wagoner MD Work Phone: spine InstituteComment on above:B2B Sales Manager - OtherStart: 02-16-2024 End: 39-66-4304vfffhzliqdOehw Hutchinson PT Work Phone: [facility] Physical TherapyComment on above:Imbalance (Primary Dx)Start: 02-15-2024 End: 36-00-3697PbvdyoTnuil Griffin MD Work Phone: CardiologyComment on above:Refill RequestStart: 02-10-2024 End: 78-03-4903Dyumxhrjq encounterZak Cohen DO Work Phone: spine InstituteComment on above:Post Injection call Start: 02-09-2024 End: 29-36-8213ibtfbftbjbUjfa Hutchinson PT Work Phone: [facility] Physical TherapyComment on above:Imbalance (Primary Dx); 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athy (HCC)Start: 02-08-2024 End: 31-78-8258vhivtbfwbnPpxfspjluCommunity Regional Medical Center Work Phone: Start: 02-08-2024 End: 89-40-7530Yeabjds encounter procedureCarolinas Continuecare Hospital [facility] University Physician Group-[facility] Orthopedics Work Phone: Start: 02-07-2024 End: 93-98-1862hkwmqskqhvWPFMW ROGER KUNSFacility:[facility] Start: 02-06-2024 End: 57-57-4761bhxakjlehnHongtxl P COOKFacility:SEAN HawleyyStart: 02-06-2024 End: 84-44-0712Cmryzjt encounter Venkat LIVE [facility] Start: 02-02-2024 End: 20-83-0492Hgdzicxhy encounterZak Cohen DO Work Phone: [facility] InstituteComment on above:Preparations For ProceduresStart: 02-02-2024 End: 23-86-9348dtyzumkbkcKknd Hutchinson PT Work Phone: [facility] Physical TherapyComment on above:Imbalance (Primary Dx)Start: 01-30-2024 End: 90-00-5454Gjqvyuowe encounterEmjaret Schwartz APRN.ENVIRONMENTAL ENGINEER SCIENTIST Work Phone: NeurologyComment on above:Patient Update; Medication UpdateStart: 01-26-2024 End: 47-48-0786xmwcgdaxjkRuse Hutchinson PT Work Phone: [facility] Physical TherapyComment on above: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athy (HCC) (Primary Dx); ImbalanceStart: 01-26-2024 End: 72-99-4671Jwpyjqsin encounterKarl Lion PT Work Phone: [facility] Physical TherapyComment on above:Patient UpdateStart: 01-24-2024 End: 38-86-4317Bnoyeglsi to same day surgery sebZak Cohen DO Work Phone: ambulatory SurgeryComment on above:Preprocedure instructionsStart: 01-24-2024 End: 51-42-0837T-mail encounter from caregiverZak Cohen DO Work Phone: ambulatory SurgeryStart: 01-20-2024 End: 92-94-9971sgqnyohcsdUfirnmj Mayuga MD Work Phone: CardiologyComment on above:Low blood pressureStart: 01-19-2024 End: 78-02-1214Lmbfuz OnlyVictor Mnauelscar Cohen DO Work Phone: Spine InstituteComment on above:Spinal stenosis of lumbar region, unspecified whether neurogenic claudication present (Primary Dx); Lumbosacral spondylosis with radiculopathyType 2 diabetes mellitus with stage 3a chronic kidney disease, without long-term current use of insulin (HCC) (Primary Dx); 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athy (HCC); Mixed hyperlipidemiaStart: 01-17-2024 End: 83-57-6580jpcagxbzzxGqgsCorazon Lion PT Work Phone: [facility] Physical TherapyComment on above: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athy (HCC) (Primary Dx); ImbalanceStart: 01-16-2024 End: 05-91-1892eglphpiyfaLaqv Biopsy Work Phone: NeurologyComment on above:ProcedureStart: 01-16-2024 End: 16-32-6225Bnjobcx encounter procedureSkin Biopsy Work Phone: NeurologyStart: 01-16-2024 End: 93-08-2493Ouwwjgclwu hospital visit by physicianXr Main Ly8ZajgahecwKwofrkd on above:Anterolisthesis of cervical spine [M43.12]Start: 01-16-2024 End: 96-98-0770Chlqhiz encounter procedureTamary Wagoner MD Work Phone: ine InstituteComment on above:Lumbosacral spondylosis with radiculopathy (Primary Dx); Anterolisthesis of cervical spine; Spinal stenosis of lumbar region, unspecified whether neurogenic claudication present; Scoliosis, unspecified scoliosis type, unspecified spinal regionStart: 01-05-2024 End: 99-67-6749Cgsvwfo encounter procedureHeather Ford MD Work Phone: Breast CenterComment on above:Fibrocystic breast changes, bilateral (Primary Dx); Mastodynia; Family history of breast cancer; Family history of ovarian cancerStart: 01-05-2024 End: 60-36-8364Gwpagelppv hospital visit by physicianClinic Imaging Mammo Main MammographyComment on above:Screening breast examination [Z12.39]Start: 01-04-2024 End: 16-03-4420vxmzvvipwlHyvr Rueth RD Work Phone: EndocrinologyStart: 01-04-2024 End: 62-42-2294Fnrios-up encounterFarzana Morrow RD Work Phone: EndocrinologyComment on above:Medical Nutrition Therapy (Diabetes/ Weight management follow-up)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athy (HCC) (Primary Dx); ImbalanceStart: 12-27-2023 End: 44-59-8888Oipetbfhy encounterHeather Ford MD Work Phone: Breast CenterComment on above:AppointmentStart: 12-26-2023 End: 66-76-1243vwrlubtfleNrhssdm Mayuga MD Work Phone: CardiologyComment on above:Low Blood PresureStart: 12-22-2023 End: 22-18-0229iomdjezhxbCS Erich Gillis Work Phone: [facility] Work Phone: Start: 12-22-2023 End: 10-14-2276Ufbgkol encounter procedureDO Erich Gillis Work Phone: [facility] Phys[facility] GroupMoh[facility] Work Phone: Start: 12-21-2023 End: 66-75-8401VazkjkSubkv Skyler Schwartz APRN.ENVIRONMENTAL ENGINEER SCIENTIST Work Phone: NeurologyComment on above:Refill RequestStart: 12-19-2023 End: 24-53-2953tkwbzxrkvaXbkmxp Hamaty MD Work Phone: EndocrinologyStart: 12-19-2023 End: 67-69-8729Gogxldg encounter Kelsy Oneill MD Work Phone: EndocrinologyComment on above:Miley 3Start: 12-15-2023 End: 22-97-1407Mmfkilo encounter procedureSheryl Garza APRN.ENVIRONMENTAL ENGINEER SCIENTIST Work Phone: NeurologyComment on above:Neurogenic orthostatic hypotension (HCC) (Primary Dx); Imbalance; Orthostatic lightheadednessOrthostatic hypotension (Primary Dx)Start: 12-14-2023 End: 96-15-1581Xlztwtj encounter procedureSyncope Opd Nurse Work Phone: CardiologyComment on above:Near syncope (Primary Dx); Labile blood pressureStart: 12-13-2023 End: 57-07-0808Vvvwhdvdx encounterLizbeth Keller RNCardiologyStart: 12-07-2023 End: 52-79-5344Cbqkwdvtu encounterSteve Wagoner MD Work Phone: spine InstituteComment on above:B2B Sales Manager - OtherStart: 79-82-0290fayquvrsamUPZPZIR M KHALAFFacility:[facility] Centertart: 12-04-2023 End: 06-48-3133Lcuvouivkm hospital visit by physicianGuilherme [facility] (Istat/3t) Work Phone: [facility] Radiology MRIComment on above:Spinal stenosis of cervical region [M48.02]Spinal stenosis of lumbar region, unspecified whether neurogenic claudication present [M48.061]Start: 11-29-2023 End: 06-45-8460Dmzglug encounter procedureRachele Santo PT Work Phone: [facility] Physical TherapyComment on above: Chronic bilateral low back pain with right-sided sciatica (Primary Dx); Spinal stenosis of lumbar region, unspecified whether neurogenic claudication present; Lumbosacral spondylosis with radiculopathyStart: 11-29-2023 End: 88-44-5505comkdidiofCxcpl Adams PT Work Phone: [facility] Physical TherapyStart: 11-29-2023 End: 90-79-3485Gzaffvihrr hospital visit by physicianSamanta [facility] Work Phone: [facility] Radiology GeneralComment on above:Spinal stenosis of lumbar region, unspecified whether neurogenic claudication present [M48.061]Start: 11-29-2023 End: 03-97-3649Zsecznu encounter procedureTamary Wagoner MD Work Phone: spine InstituteComment on above:Spinal stenosis of cervical region (Primary Dx); Spinal stenosis of lumbar region, unspecified whether neurogenic claudication present; Lumbosacral spondylosis with radiculopathy; Bilateral arm weaknessRadiology XRStart: 11-22-2023 End: 10-08-9894ajwwjhrwiuGB Erich Gillis Work Phone: [facility] Work Phone: Start: 11-22-2023 End: 26-72-6349Adbpuqs encounter procedureDO Erich Cesarlisa Work Phone: [facility] Physician GroupMoh[facility] Work Phone: Start: 57-32-5228Gqdggyibj encounterEmwaqas Morrow RD Work Phone: Endocrinology & Metabolic InstituteComment on above: AppointmentStart: 78-33-8414Zwsatemkr encounterEmwaqas Morrow RD Work Phone: EndocrinologyComment on above:Patient Question (Patient called to ask for assistance with primo sensor)Returning Patient's Call (Pt reports unable to open Primo 3 sample provided by educator. Requests an other sample. )Start: 22-06-9346cordeexlldXRVHW ROGER KUNSFacility:[facility] Start: 11-05-2023 End: 82-37-2274Buysbhaiyr hospital visit by physicianGuilherme [facility] (Istat/3t) Work Phone: [facility] Radiology MRIComment on above:Labile blood pressure [R09.89]Start: 38-70-9011Vewczc OnlySheryl Garza APRN.ENVIRONMENTAL ENGINEER SCIENTIST Work Phone: NeurologyComment on above:Labile blood pressure (Primary Dx); Abnormal saccadic eye movement; Pursuit movement deficiency; Other symptoms and signs involving the nervous systemOrdersStart: 10-26-2023 End: 94-36-6609Aasdfwc encounter Janessa Cook APRN.ENVIRONMENTAL ENGINEER SCIENTIST Work Phone: EndocrinologyComment on above:Type 2 diabetes mellitus with stage 3a chronic kidney disease, without long-term current use of insulin (HCC) (Primary Dx); 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athy (HCC); Mixed hyperlipidemiaStart: 10-21-2023 End: 90-10-6094Emey [facility] Start: 49-53-0712BysbnkPbtmdyBeth Alexander MD Work Phone: EndocrinologyComment on above:Refill RequestStart: 90-33-9847Bfe-patient / Non-visitDO Erich Gillis Work Phone: [facility] Work Phone: Start: 10-05-2023 End: 09-68-8008eoyexwdvtyEqvq Rueth RD Work Phone: EndocrinologyStart: 10-05-2023 End: 59-47-4936Poqvdnj encounter procedureFarzana Morrow RD Work Phone: EndocrinologyComment on above:Medical Nutrition Therapy (Diabetes/ Abnormal weight gain management )Start: 10-03-2023 End: 74-17-0368Kmojnfa encounter procedureDO Erich Gillis Work Phone: [facility] Work Phone: Start: 10-03-2023 End: 00-84-6209fhuchkxkzbFL Erich Gillis Work Phone: [facility] Work Phone: Start: 10-03-2023 End: 28-35-7241qpbdygbaveCnuvfdbrrCommunity Regional Medical Center Work Phone: Start: 10-03-2023 End: 20-62-4260Wwtwolj encounter procedureCarolinas [facility]care [facility] Physician Group-[facility] Work Phone: Start: 22-76-2502Efdpccjpt encounterKarl Cook APRN.CNP Work Phone: EndocrinologyComment on above:OrdersStart: 09-22-2023 End: 56-02-7507Qkjyzojfcp hospital visit by physicianGuilherme Adams (Istat/3t) Work Phone: [facility] Radiology MRIComment on above:Canceled (Pt cx: Appointment Conflict)Start: 74-62-6627vrxeydrlseRU Anirudh Arroyo Facility:FTMCStart: 09-19-2023 End: 72-29-4927Lupf ManagementAnirudh Arroyo [facility] Start: 32-68-8568Yug-patient / Non-visitCarolinas [facility]care [facility] Physician GroupMoh[facility] Work Phone: Start: 98-71-2638SmgsslJfjkiCayla Garza APRN.CNP Work Phone: NeurologyComment on above:Refill RequestStart: 09-13-2023 End: 40-52-0420Tbvulti encounter Rody Rubio MD Work Phone: Neurological RestorationComment on above:Postural instability (Primary Dx); Labile blood pressure; Abnormal saccadic eye movement; Pursuit movement deficiencyStart: 73-20-6718Iytqrbeyl encounterLorraine Oneill MD Work Phone: EndocrinologyComment on above:Forms (DDM)Start: 33-15-9501Gwgrwypkl encounterLorraine Oneill MD Work Phone: Endocrinology & Metabolic InstituteComment on above: diabetic suppliesStart: 45-25-1303JgyvulNaduut Hamaty MD Work Phone: EndocrinologyComment on above:Refill RequestStart: 08-31-2023 End: 61-12-9234vguhwhkszzBB Erich Gillis Work Phone: [facility] Work Phone: Start: 08-31-2023 End: 81-27-9487Aednhxk encounter procedureDO Erich Gillis Work Phone: [facility] Work Phone: Start: 39-66-6554Okrjdfhgh encounterAndres Rubio MD Work Phone: Neurological RestorationComment on above:Question Start: 08-24-2023 End: 57-44-0785Bhhhzsh encounter procedureEmg 2 Neur [facility] Rej (Max Weight: 400) Work Phone: NeurologyComment on above:EMGStart: 08-16-2023 End: 76-08-1511vhpufypzsmOygbugxl A. JonesFacility:FTMCStart: 08-16-2023 End: 85-61-4215Cbbp ManagementAnirudh Arroyo [facility] Start: 08-03-2023 End: 23-16-6272Sktweuf encounter procedureDa King MD Work Phone: CardiologyComment on above:POTS (postural orthostatic tachycardia syndrome) (Primary Dx); Orthostatic lightheadedness; Palpitations; Dizziness; Mixed hyperlipidemiaStart: 07-30-2023 End: 74-81-5856haxbhlzrsoFbnvdt QuentinFacility:FTMCStart: 07-30-2023 End: 24-67-0048Vgnligw encounter procedureAmanda Quentin [facility] Start: 38-91-4546qppqevnfsoOstas P Silberman APRN.ENVIRONMENTAL ENGINEER SCIENTIST Work Phone: NeurologyComment on above:NeuropathyStart: 07-26-2023 Non-patient / Non-visitDO Erich Gillis Work Phone: [facility] Work Phone: Start: 07-26-2023 End: 15-39-9133Sdzygnl encounter procedureSheryl Garza FISH [employer] GAME WARDEN.ENVIRONMENTAL ENGINEER SCIENTIST Work Phone: NeurologyComment on above:Labile blood pressure (Primary Dx); Orthostatic lightheadedness; Abnormal saccadic eye movement; Pursuit movement deficiency; Other symptoms and signs involving the nervous system; Left leg weakness; Disturbance of skin sensation; Pain of foot, unspecified laterality; Postural instabilityStart: 07-26-2023 End: 35-03-5051drvpxmsgfhTzxwnca Skyler LIVEFacility:EU [place]uskyStart: 07-26-2023 End: 84-05-8170Bkupbmp encounter procedureRyan Holland HIRO [facility] Start: 07-19-2023 End: 19-73-0082kirvovuwpmIV Erich Gillis Work Phone: [facility] Work Phone: Start: 07-19-2023 End: 48-13-1906Qkugebu encounter procedureDO Erich Gillis Work Phone: [facility] Vascular Surgery Work Phone: Start: 93-40-3887Ouwqlojic encounterNorma Ferreira Research CoordinatorEndocrinologyComment on above:Research (IRB # [id number]/Phase 2 Study to Evaluate the Safety and Efficacy of RTA 901 in Patients with Diabetic Peripheral Neuropathic Pain/PI: Starla Jaramillo /Research Coordinator: Norma Ferreira/)Start: 06-28-2023 End: 81-69-5825fbnzhfaqagKX Erich Gillis Work Phone: [facility] Work Phone: Start: 06-28-2023 End: 53-57-7720Fklxciu encounter procedureDO Erich Gillis Work Phone: [facility] Orthopedics Work Phone: Start: 06-27-2023 End: 48-91-4086Ueanutb encounter procedureDO Erich Gillis Work Phone: [facility]-Ultrasound Main [place] Work Phone: Start: 06-27-2023 End: 90-08-8815wqekhwvgxwFC Erich Gillis Work Phone: [facility] Work Phone: Start: 06-24-2023 End: 06-97-1697bfuuepbnnaIwqaeg SpringerFacility:FTMCStart: 06-24-2023 End: 88-10-4243Bxvg ManagementAmanSky Ridge Medical Center [facility] Start: 06-23-2023 End: 29-65-6186Pawywgv encounter procedureLorraine Oneill MD Work Phone: EndocrinologyComment on above:Type 2 diabetes mellitus with stage 3a chronic kidney disease, without long-term current use of insulin (HCC) (Primary Dx); Abnormal weight gain; Mixed hyperlipidemia; 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athy (HCC)Start: 81-62-4852Ruh- patient / Non-visitDO Erich Gillis Work Phone: [facility] Work Phone: Start: 06-20-2023 End: 57-15-9558Bjcutog encounter procedureDO Erich Gillis Work Phone: [facility] Work Phone: Start: 06-17-2023 End: 82-50-7267Umyzfiuyc department patient visitDO Erich Gillis Work Phone: [facility]-Emergency Room Work Phone: Start: 81-56-1658vemeuqejpiCilxkw Hamaty MD Work Phone: EndocrinologyComment on above:Blood testStart: 06-13-2023 End: 07-28-4314Vctpgpq encounter procedureAndrea Lees MD Work Phone: CardiologyComment on above:Labile blood pressure (Primary Dx); Near syncopeStart: 06-08-2023 End: 51-21-7644psjqshxtxkExcoibmv A. JonesFacility:FTMCStart: 06-08-2023 End: 81-51-7916Lfkw ManagementAnirudh Arroyo [facility] Start: 06-07-2023 End: 69-40-8750Rwqsbzc encounter procedureDO Erich Gillis Work Phone: [facility] Vascular Surgery Work Phone: Start: 05-30-2023 End: 78-15-4807bfalnkkdgnVKGZ STRAUBNot AvailableStart: 05-23-2023 End: 63-41-4034qbpivggyjqAWGAZLT L DAUCH-REDDINGNot AvailableStart: 05-23-2023 Bamboo flowsheetNichole L Dauch-Resaca PT Work Phone: [facility] PTStart: 48-71-5938Ezebuy flowsheetNichole L Dauch-Resaca PT Work Phone: [facility] PTStart: 70-06-0705Oplxsdzil encounterErich GillisTUBA CITY REGIONAL [facility] Family Medicine [place]Start: 05-23-2023 End: 02-00-3866qfryywhkzhAnsolmu L Dauch-Arline PT Work Phone: [facility] PTComment on above:Left foot pain (Primary Dx)Start: 05-20-2023 End: 08-83-4908fdnajsscgtIlqqmq QuentinFacility:FTMCStart: 05-20-2023 End: 91-11-2944Feca ManagementKristie Saavedra [facility] Start: 05-16-2023 End: 84-32-6725mjidrulpvgYTSGKPM L DAUCH-REDDINGNot AvailableStart: 05-15-2023 Chart abstractingNichole L Dauch-Arline PT Work Phone: noms [facility] PTStart: 05-12-2023 End: 57-21-3083ftqhmxisegJxkeunj L Dauch-Arline PT Work Phone: noms SWS PTComment on above:Left foot pain (Primary Dx)Start: 05-06-2023 End: 21-29-3561vuvexcvglnREEQIFL L DAUCH-REDDINGNot AvailableStart: 05-03-2023 End: 49-86-1958zvlfjcrnjqZZBOJFB L DAUCH-REDDINGNot AvailableStart: 04-20-2023 End: 26-46-6130lastkfkaizQR Bradford A. JonesFacility:FTMCStart: 04-20-2023 End: 98-17-2401Qzab ManagementBragiana Arroyo [facility] Start: 04-06-2023 End: 62-54-4118azgjzcrnqoVlzspqg Calvey Other [facility] [employer] Other Start: 24-72-4290Ltejpc outpatient visit 15 minutes Merary Vyas [place] OrthopedicsStart: 39-91-1836Vrimusm encounter procedureDO Erich Gillis Work Phone: [facility]ashlandDeskwanted [facility]-Start: 03-24-2023 End: 94-75-9391sgergmzbcgWpbkd Kuns Other [place] [employer] Other Start: 79-84-6931Rppnymsvy encounterBrett Lexie Family Medicine [place]Start: 03-22-2023 End: 89-91-6212podgqtvpbxOkelb Kuns Other [facility] [employer] Other Start: 23-54-3807Trztmjsyq encounterBrett DamarisG Family Medicine [place]Start: 03-15-2023 End: 93-26-9324utqzegrlybKsfhq Kuns Other north [employer] Other Start: 23-52-1436Eikydljio encounterErich Owen [facility] CastaliaStart: 03-10-2023 End: 26-32-2600wfhnpelwppUF Brett Kuns Work Phone: [facility] Work Phone: Start: 03-10-2023 End: 72-87-0137Mzlmeyh encounter procedureDO Erich Gillis Work Phone: [facility]-Lab Main [place] Work Phone: Start: 03-09-2023 End: 90-80-3142wubpdyxfvoLmveo Kuns Other [employer]john [facility] [employer] Other Start: 23-57-6920Hytckz outpatient visit 25 minutes Erich GillisDanika [facility] [place]aliaStart: 03-07-2023 End: 42-73-8722lixunuvndaSPChris SaavedraFacility:FTMCStart: 03-07-2023 End: 75-87-3572Chsh Chad Saavedra [facility] Start: 02-28-2023 End: 94-47-4749qpgcpdeemnIwixyr D GoldnerFacility:FTMCStart: 02-28-2023 End: 55-13-4619Lltw [facility] Start: 04-87-0753Hifzxd outpatient visit 15 minutes Merary [facility] OrthopedicsStart: 02-25-2023 End: 74-79-7157oasspkwknuPY Erich Gillis Work Phone: [facility] Work Phone: Start: 02-25-2023 End: 99-25-9609Lvskfcf encounter procedureDO Erich Kuns Work Phone: [facility] Start: 02-24-2023 End: 13-39-7697kyoyqloagcMyiuj Arsenios Other [place] [employer] Other Start: 22-03-5894Qihtioxdq encounterBrett DamarisG [facility] CastaliaStart: 02-21-2023 End: 94-76-2147lbrcszqjaaIlrka Kuns Other [employer] Other Start: 81-79-3796Ynnjczkmh encounterBrett DamarisG [facility] CastaliaStart: 02-18-2023 End: 20-40-6399uzciawdupmRN Erichdrew Gillis Work Phone: [facility] Work Phone: Start: 02-18-2023 End: 27-79-9109Kcqdrad encounter procedureDO Erichdrew Gillis Work Phone: [facility]-XRay [facility] Work Phone: Start: 02-14-2023 End: 06-58-8581whrmqycqkvDplav Kuns Other [employer] Other Start: 40-53-0866Shbfkkv evaluation of patient and reportBredrew CarlinG [facility] CastaliaStart: 57-32-4086Jhcgsytkz encounter Erichdrew OcampoG Family Medicine CastaliaStart: 02-08-2023 End: 46-12-6638alrqgibhobQxbiqux P COOKFacility:SEAN SanduskyStart: 01-31-2023 End: 78-04-2106Rsaf [facility] Start: 12-14-9561Dzncgp follow up visit related to original pxColleen CalveyFPG [facility]Start: 01-21-2023 End: 87-09-0242fzcxadsuyaCP Erich Gillis Work Phone: [facility] Work Phone: Start: 01-21-2023 End: 87-66-8642Hjwepgs encounter procedureDO Erich Gillis Work Phone: [facility]Ray [facility] Start: 12-30-2022 End: 59-07-4330Zkmgzgg encounter procedureSjaida Penaloza MD Work Phone: Breast CenterComment on above:Costochondritis, acute (Primary Dx)Start: 12-30-2022 End: 70-60-0908Bfiqzpcvfo hospital visit by physicianClinic Imaging Mammo Main MammographyStart: 67-36-1840Jrgndg follow up visit related to original Ibanllmorena [facility]Start: 12-24-2022 End: 24-56-3109yizlyaivvwGF Erich Gillis Work Phone: [employer] Other Start: 12-24-2022 End: 39-83-0777Dvpxyxs encounter procedureDO Erich Gillis Work Phone: [facility]Ray [facility] Start: 12-20-2022 End: 32-38-7726ffnmtddvarXqasb Kuns Other [employer] Other Start: 58-60-0178Bopywdtlk encounterBredrew OcampoG Family [facility] CastaliaStart: 84-22-4118Tsniqokfv encounterLorraine Oneill MD Work Phone: Endocrinology & Metabolic InstituteComment on above: Lab OrdersStart: 51-95-1145Jjwgcjiqu encounterSjaida Penaloza MD Work Phone: General SurgeryComment on above:AppointmentStart: 12-08-2022 End: 61-74-9980pshxfpjjtwSdril Kuns Other [employer] Other Start: 05-82-3618Lkqyxv outpatient visit 25 minutes Erich Owen [facility] CastaliaStart: 12-07-2022 End: 10-81-9306Hvip [facility] Start: 12-01-2022 End: 04-52-5633bygqyqhxxsLhbbfnm Calvey Other [employer] Other Start: 06-51-5367Viyywb follow up visit related to original pxColleen CalveyFPG [facility]icsStart: 11-23-2022 End: 07-25-2385kbzrdzcczzKgzcbfh Calvey Other [employer] Other Start: 18-98-2374Pujsfl follow up visit related to original pxColleen CalveyFPG [facility]icsStart: 11-15-2022 End: 55-87-6655Aznxfzezf to same day surgery Radha Gillis Work Phone: [facility]Start: 11-15-2022 End: 92-62-3746gcnpgyczwpNY Brett Kuns Work Phone: [facility] Work Phone: Start: 59-79-1431Pkmxwnxzq Isela King MD Work Phone: CardiologyComment on above:Blood PressureStart: 11-08-2022 End: 41-96-6583Psds [facility] Start: 11-05-2022 End: 46-78-3840lymvyhchnuWR Erichdrew Gillis Work Phone: [facility] Work Phone: Start: 11-05-2022 End: 86-63-2393Birorch encounter procedureDO Erichdrew Gillis Work Phone: [facility] [employer] Work Phone: Start: 85-61-0077Yauxlo outpatient visit 25 minutes Merary Luna [facility]Start: 11-03-2022 End: 35-25-2648aahtjgeutzRR Erich Gillis Work Phone: [facility] [employer] Other Start: 11-03-2022 End: 99-62-5100Zqgquhr encounter procedureDO Erich Gillis Work Phone: [facility] Start: 10-26-2022 End: 52-84-5177Vbdb [facility] Start: 10-20-2022 End: 04-14-8708mfvfrpzgjrAeegw Kuns Other [employer] Other Start: 83-05-4290Umeiinuec encounterBredrew OcampoG Family [facility] [place]Start: 10-07-2022 End: 68-20-3914Vkkhhfs encounter procedureDO Erich Gillis Work Phone: [facility]-CT [address] Work Phone: Start: 10-05-2022 End: 23-98-3218hvszkcrwgfEfssqsn Calvey Other [employer]john [facility] [employer] Other Start: 03-21-4401Wqacxc outpatient visit 15 minutes Merary CalvRosa ElenaG [facility]icsStart: 09-30-2022 End: 13-61-1133chimynwgrzUjvti Kuns Other [employer] Other Start: 24-11-1807Alrbmi outpatient visit 25 minutes Erich [facility] CastaliaStart: 73-74-8472Fcadf abstractingJustice Andrews MAEndocrinologyComment on above:endocrine specialitesStart: 09-29-2022 Telephone encounterLorraine Oneill MD Work Phone: EndocrinologyComment on above:Forms ([facility] ) Start: 09-27-2022 End: 31-69-4746Qpvgtvg encounter procedureDO Erich Gillis Work Phone: [facility]-Ultrasound Main [place] Work Phone: Start: 09-24-2022 End: 94-55-7530ukopcdpbcoAynaz Kuns Other [employer] Other Start: 24-23-5287Cdyfllfjp encounterBredrew Owen [facility] CastaliaStart: 09-20-2022 End: 65-38-0607Vqzvufd encounter procedureDO Erich Gillis Work Phone: [facility]-Lab [place] Work Phone: Start: 23-78-8262WjdurwHueujo Hamaty MD Work Phone: EndocrinologyComment on above:Refill RequestStart: 09-09-2022 End: 85-57-9522ittdvglqzaTfjan Kuns Other [employer] Other Start: 79-63-9943Elubscqwv encounterBredrew CarlinDanika [facility] CastaliaStart: 09-08-2022 End: 08-67-7718Xulzmdn encounter procedureDO Erich Gillis Work Phone: [facility]trStart: 09-08-2022 End: 57-36-9920ekmmnupzdjIU Erich Gillis Work Phone: [facility] Work Phone: Start: 10-85-2063Vbaego outpatient visit 25 minutes Erich [facility] CastaliaStart: 76-19-3755Vxrqucabw encounteraD King MD Work Phone: CardiologyComment on above:Medication Question; Blood PressureStart: 08-26-2022 End: 09-24-1426Dtoffoboq department patient visitDO Erich Gillis Work Phone: [facility]-Emergency Room Work Phone: Start: 08-12-2022 End: 78-24-8367Nucqhre encounter procedureNorthern [facility] Start: 08-12-2022 End: 28-80-5879Fnhl ManagementNorthern Light [facility] Start: 08-09-2022 End: 98-63-2968xhwltdgutbKyvbc Carlin Other [employer] Other Start: 36-12-5190Dyplwwjir encounterErich GillisLudlow Hospital CastaliaStart: 08-03-2022 End: 97-01-9607Mhucmfb encounter procedureDa King MD Work Phone: CardiologyComment on above:POTS (postural orthostatic tachycardia syndrome) (Primary Dx); Hypotension, chronic; Palpitations; DizzinessStart: 76-75-8852Kxprtszye encounterKarl Cook APRN.CNP Work Phone: EndocrinologyComment on above:Forms ([facility] Medicare DWP)Start: 15-64-1023Lkpjmjflp encounterKarl Cook APRN.ENVIRONMENTAL ENGINEER SCIENTIST Work Phone: EndocrinologyComment on above:FormsStart: 06-24-2022 End: 79-90-3336kajywogsolTX Brett Kuns Work Phone: [facility] Work Phone: Start: 06-24-2022 End: 08-55-1206Gikjllg encounter procedure Erich Gillis Work Phone: [facility]-Lab Main [place] Work Phone: Start: 06-21-2022 End: 20-13-2697nhlrzcdethXprdd Carlin Other [employer] [facility]john [facility] [employer] Other Start: 32-44-4006Zvkcqlqqs encounterErich CesarlisaKEYANA Family [facility] CastaliaStart: 06-15-2022 End: 22-47-1271rpxgtfxhlgEgpzv Kuns Other [employer] Other Start: 69-53-0817Lewrlzbmu encounterBredrew CesarlisaDanika [facility] CastaliaStart: 06-14-2022 End: 60-41-0876kcirwmbhadXjzkddw Calvey Other [facility] [employer] Other Start: 76-72-0714Uqmvtv outpatient visit 15 minutes Merary BoothDanika [facility] OrthopedicsStart: 70-46-6814Qzhbgckna encounterLorraine Oneill MD Work Phone: EndocrinologyComment on above:FormsStart: 06-03-2022 Telephone encounterKarl Cook APRN.CNP Work Phone: EndocrinologyComment on above:Henry lombardo DWOStart: 25-71-6238TlrczqFidfPuneet Cook APRN.CNP Work Phone: [phone] InstituteStart: 05-27-2022 End: 54-66-2944abrxrtsdimOsemu Kuns Other [employer] Other Start: 87-26-2546Hqqlyr outpatient visit 25 minutes Erich CesarlisaSaint Monica's Home [facility] CastaliaStart: 47-66-0983Ngjzicfsf encounterKarl Cook APRN.ENVIRONMENTAL ENGINEER SCIENTIST Work Phone: EndocrinologyComment on above:Received Outside Medical Records (Podiatry )Start: 05-24-2022 End: 22-86-8980Plaeeqd encounter procedureKarl Cook APRN.ENVIRONMENTAL ENGINEER SCIENTIST Work Phone: EndocrinologyComment on above:Elevated TSH (Primary Dx); Well controlled type 2 diabetes mellitus with neurological manifestations (HCC); Other hyperlipidemia [E78.49 (ICD-10-CM)]Start: 94-75-7336Ubgfyvqsl encounter Karl Cook APRN.ENVIRONMENTAL ENGINEER SCIENTIST Work Phone: [phone] InstituteComment on above:OrdersStart: 05-12-2022 End: 86-65-8251xzkskutaitPyssb Kuns Other [employer] Other Start: 86-82-0065Jgpwjcusz encounterKeshadrew GillisTUBA CITY REGIONAL [facility]ARE CORPORATION [facility] CastaliaStart: 45-10-3848Kgapym outpatient visit 25 minutesErich GillisLudlow Hospital CastaliaStart: 05-10-2022 End: 62-72-9502ojcwaimoqaYH Erich Gillis Work Phone: [facility] Work Phone: Start: 05-10-2022 End: 66-62-7645Ttdsipo encounter procedureDO Erich Cesars Work Phone: [facility] CtrStart: 05-07-2022 End: 19-59-2950Rokiqpa encounter procedureDO Erich Cesars Work Phone: [facility]-CT Scan Main [place] Work Phone: Start: 05-06-2022 End: 83-61-8339dictjkbpgbAivpx Kuns Other [facility] [employer] Other Start: 10-41-1574Kvxlakghi encounterBrett Lexie [facility] CastaliaStart: 05-04-2022 End: 97-80-9177otchnubbapLygux Kuns Other [facility] [employer] Other Start: 63-67-1633Vonwcfaxn encounterBrett CarlinG Family Medicine CastaliaStart: 05-03-2022 End: 88-41-4649dsgkjjgocgOnwrz Arsenios Other [facility] [employer] Other Start: 85-73-7636Mbdzzd outpatient visit 25 minutes Erich CarlinTUBA CITY REGIONAL HEALTH CARE CORPORATION Family Medicine CastaliaStart: 35-94-3788Rjrxngixq encounterBrett CarlinG Family Medicine CastaliaStart: 18-60-6899NaatkeBssmii Hamaty MD Work Phone: EndocrinologyComment on above:Med Change RequestStart: 04-13-2022 End: 82-44-2160gkzpxqvymySqtqy Kuns Other [facility] [employer] Other Start: 36-50-3371Tkvlumqkl encounterBrett CarlinTUBA CITY REGIONAL HEALTH CARE CORPORATION Family Medicine CastaliaStart: 15-33-5056rtgqgctqzeDomlx P Silberman [employer].ENVIRONMENTAL ENGINEER SCIENTIST Work Phone: NeurologyComment on above:Blood Pressure charting Start: 04-06-2022 End: 03-44-4224hkgtgvpglrQzswx Kuns Other [facility] [employer] Other Start: 93-81-9090Tokkdli evaluation of patient and reportBrett CarlinTUBA CITY REGIONAL [facility]ALTH [facility]ARE CORPORATION Family Medicine CastaliaStart: 54-76-4759Exvzgslnb encounter Erich GillisLudlow Hospital CastaliaStart: 03-19-2022 End: 55-83-3020gbvskxtatbDdktxpc Calvey Other [facility] [employer] Other Start: 79-57-9850Iaawij outpatient visit 15 minutes Merary ShardagilbertoTUBA CITY REGIONAL HEALTH CARE CORPORATION [facility]icsStart: 02-15-2022 End: 13-94-8259Mtvwww Jorge King MD Work Phone: CardiologyComment on above:Dizziness (Primary Dx) Dizziness (Primary Dx); Hypotension, chronic; POTS (postural orthostatic tachycardia syndrome)Start: 60-44-0489hlknzdagzz Carlita Henley APRN.CNP Work Phone: NeurologyComment on above:Blood pressure charting Start: 02-04-2022 End: 98-58-4316klrbttagwkIgkxz Kuns Other [employer] Other Start: 06-82-7248Riegwb outpatient visit 25 minutes Erichdrew CesarFairview Hospital CastaliaStart: 85-32-1115Cvbqpwukk encounterLorraine Oneill MD Work Phone: EndocrinologyComment on above:carlos PodiatryStart: 01-29-2022 End: 64-69-0654hvpcgrrcxfEdbazm Dimare APRN.ENVIRONMENTAL ENGINEER SCIENTIST Work Phone: NeurologyComment on above:Orthostatic lightheadedness (Primary Dx)Start: 01-29-2022 End: 98-40-7446Gmnbfpjxszps consultation with patientCarlita Henley APRN.ENVIRONMENTAL ENGINEER SCIENTIST Work Phone: [facility] MAINStart: 45-11-8580Cqydtgcjv encounterLorraine Oneill MD Work Phone: EndocrinologyComment on above:Forms (Carlos)Start: 01-18-2022 End: 88-82-6909yygjetlbdyMwjrjmi Mayuga MD Work Phone: CardiologyComment on above:Transient loss of consciousness (Primary Dx)Start: 01-18-2022 End: 85-28-1608Ciadwhlvipkg consultation with Richa Lees MD Work Phone: ccF [facility] MAINStart: 01-12-2022 End: 65-36-8430Osckgaa encounter procedureGregory Skyler LIVE [facility] [place] Start: 01-11-2022 End: 90-02-0830zofmtybbtwXjcug Kuns Other [employer] Other Start: 15-23-5147Arppzraem encounterBrett Lexie [facility] CastaliaStart: 01-07-2022 End: 30-59-8892rvepkphdonXuxhq Kuns Other [employer] Other Start: 46-03-1511Tdwjlh outpatient visit 25 minutes Erichdrew Owen [facility] CastaliaStart: 12-18-2021 End: 13-43-3431wdlpufxbbpQiyvp Kuns Other [employer] Other Start: 48-74-1028Fkzknw outpatient visit 25 minutes Erichdrew Owen [facility] CastaliaStart: 12-07-2021 End: 04-15-1096Otjd ManagementJamey [facility] Start: 12-04-2021 End: 74-63-6733opoltbwvumQauut Kuns Other [employer] Other Start: 94-61-1580Unygjzcpn encounterBrett Lexie [facility] CastaliaStart: 11-27-2021 End: 79-78-1498awnwwllrlfHrmej Kuns Other [employer] Other Start: 94-66-7237Lznidp outpatient visit 25 minutes Erich wOen [facility] CastaliaStart: 11-27-2021 End: 52-24-6673Oqzdmxs encounter procedureDO Erich Gillis Work Phone: [facility] Start: 11-23-2021 End: 08-12-3985itnqxdrgtsCyjbr Kuns Other [employer] Other Start: 29-43-9887Tzyyesmlw encounterBrett Lexie [facility] CastaliaStart: 11-17-2021 End: 05-02-0669kgnexherhfLciiz Kuns Other [employer] Other Start: 57-08-1780Drhtcqatl encounterBredrew GillisLudlow Hospital CastaliaStart: 11-72-6082Vqjhhv OnlyDa King MD Work Phone: CardiologyComment on above:Dizziness (Primary Dx) Start: 11-12-2021 End: 46-34-1058Saljjgb encounter procedureJamey [facility] Start: 11-11-2021 End: 90-89-5796Kpabcqy encounter Freda King MD Work Phone: CardiologyComment on above:Dizziness (Primary Dx); Hypotension, chronic; Syncope, unspecified syncope type; POTS (postural orthostatic tachycardia syndrome)Start: 96-07-9486Qgpskekry encounterSheryl Garza APRN.ENVIRONMENTAL ENGINEER SCIENTIST Work Phone: NeurologyComment on above:Orders ([employer] )Start: 12-88-8139rbqrhnqpvtVnrhc P Silberman APRN.ENVIRONMENTAL ENGINEER SCIENTIST Work Phone: NeurologyComment on above:ResultsOrthostatic lightheadedness (Primary Dx)Start: 69-50-8559L-mail encounter from caregiver Sheryl Garza HAN Work Phone: [facility] MAINStart: 12-60-9441Yuxmqz Only Sheryl Holland Kayla HAN Work Phone: NeurologyComment on above:Orthostatic hypotension (Primary Dx)Blood pressure resultsStart: 88-37-9726Uhueqpeip encounterEmjaret Garza HAN Work Phone: NeurologyComment on above:OrdersStart: 10-27-2021 End: 24-75-9604mhoouamysgSabgq Kuns Other [employer] Other Start: 54-87-1066Kjdtkc outpatient visit 25 minutes Erich [facility] CastaliaStart: 34-91-8288Lugqrebvyixhe procedure Mammography CoordinatorCCF [facility] MAINStart: 05-90-6378Uflfdv encounterMammography CoordinatorWilson Health DepartmentStart: 10-22-2021 End: 18-60-6638Vchohtcris hospital visit by physicianClinic Imaging Mammo Main MammographyComment on above:Screening breast examination [Z12.39]Start: 10-22-2021 End: 60-02-6426Ciharzl encounter procedureEmjaret Skyler Kayla HAN Work Phone: NeurologyComment on above:Orthostatic intolerance (Primary Dx); Disturbance of skin sensation; Resting tremor; DizzinessMastalgia (Primary Dx); Rib pain on left sideStart: 10-19-2021 End: 54-83-1437eoynurfrmcNdmyt Kuns Other [employer] Other Start: 80-14-2776Jasquk outpatient visit 25 minutes Erich [facility] CastaliaStart: 10-19-2021 End: 98-37-8632Apteejf encounter procedureDO Erich Gillis Work Phone: [facility]-CT [address] RdStart: 10-16-2021 End: 05-93-3242sfrhptyfeaUyfnwyd Ditty Other [facility] [employer] Other Start: 53-29-2204Roofpfqfn encounterMayco Myers GastroenterologyStart: 10-15-2021 End: 67-20-9820jauoeyaiucGggxa Kuns Other [facility] [employer] Other Start: 78-51-5170Xnfcajbon encounterBredrew Owen [facility] CastaliaStart: 86-48-9369Dewfnfqza encounterLizbeth Hines RNCardiologyComment on above:B2B Sales Manager - OtherStart: 09-16-2021 End: 77-88-1948furrofjrhlZubcpephe MainNeurologyComment on above:DizzinessStart: 09-16-2021 End: 75-17-0178Vpptebd encounter procedureAutonomic 2 Neur MainCCF [facility] MAINStart: 09-16-2021 End: 19-83-0644ziolkcdpblChpljtiyb MainNeurologyComment on above:DizzinessStart: 09-16-2021 End: 51-93-1672Ppmsycv encounter procedureAutonomic 2 Neur MainCCF [facility] MAINStart: 09-16-2021 End: 84-77-2409Dkszhcg encounter procedureSyncope Opd Nurse Work Phone: CardiologyComment on above:Transient loss of consciousness (Primary Dx); Near syncope; Labile blood pressureStart: 46-93-7962Lvbelnwjm encounterLizbeth Hines RN CardiologyComment on above:B2B Sales Manager - OtherStart: 09-01-2021 End: 61-36-8852nvwkwceysbOjbzt Kuns Other [facility] [employer] Other Start: 59-90-8588Hzkihckmt encounterBredrew Owen [facility] CastaliaStart: 08-26-2021 End: 08-20-7507eijmjntokfXmrhg Kuns Other [facility] [employer] Other Start: 40-37-7784Vnbqeovzv encounterBredrew OcampoG Family Medicine CastaliaStart: 93-50-5581Scwehcsxk encounterRobryder Norwood DO Work Phone: NeurologyComment on above:Important Medication Instruction for ANS w/o TILT QSART 09/16Start: 08-12-2021 End: 81-03-0644esxjkedvsjCrrtw Kuns Other [employer] Other Start: 63-73-6579Onkluaafv encounterBredrew Owen [facility] CastaliaStart: 07-28-2021 End: 34-24-6884inqrfhishfVdbzlpd Ditty Other [facility] [employer] Other Start: 33-87-3584Bwaqnqvdd encounterCammabel Myers GastroenterologyStart: 07-02-2021 End: 28-34-9686Lfcixzn encounter Nell Saavedra [facility] Start: 06-09-2021 End: 26-32-0752nmlenwvyfxJhsqg Kuns Other [employer] Other Start: 78-78-8275Evzlub outpatient visit 15 minutes Erich [facility] Cast[place]Start: 06-08-2021 End: 10-55-5798locimtnjugXcmae Kuns Other [employer] Other Start: 83-62-9129Vysydv outpatient visit 15 minutes Erich OcampoG Family Medicine CastaliaStart: 86-26-6842Pvgwevttk encounter Maycoroque Myers GastroenterologyStart: 06-05-2021 End: 71-03-4551cnmfenedkgTfpurhm Ditty Other [employer] Other Start: 59-43-7393Vuhnqdurg encounterMayco ZaydaySOLISG Referral CoordinatorStart: 06-04-2021 End: 91-53-2998rrxwjecwevCwlefmi Ditty Other [facility] [employer] Other Start: 00-12-3535SVNF visit new patientMayco Colten RIDLEY GastroenterologyStart: 06-02-2021 End: 60-85-2062bcvacabhhpYhrmg Carlin Other [facility] [employer] Other Start: 87-58-2456Lefvpzhld encounterBrett Lexie [facility] CastaliaStart: 05-04-2021 End: 14-53-5733abgbongclbLemhx Carlin Other [facility] [employer] Other Start: 14-56-7824Yhrhsxqav encounterBrett Lexie [facility] CastaliaStart: 04-29-2021 End: 44-83-2793jwzblvbtofLsqrgog Calvey Other [facility] [employer] Other Start: 65-77-2895Mtvmwq outpatient visit 25 minutes Merary ChristinaTUBA CITY REGIONAL HEALTH CARE CORPORATION [facility]icsStart: 11-29-2019 End: 70-58-9294Dvapifomtf hospital visit by physicianSamanta Benson 1 Work Phone: RadiologyComment on above:Post-op pain [G89.18] Procedures DateProcedureProcedure DetailPerforming ClinicianStart: 18-47-7186Aeoumdmh of urethraGregory FREDONIA Start: 27-70-5643WOFZWR ON DEMANDCcf ProviderStart: 76-35-2342Lmqqk chest X-rayErich Arseniolisa DO Work Phone: Start: 44-60-7061Jwgtg hip unilateral with pelvis 2-3 viewsTamary Wagoner MD Work Phone: Start: 96-45-3284Utfvo Strep (POC)Start: 96-51-3688IDG (POC)Start: 72-96-9275WCQBSL ON DEMANDCcf ProviderStart: 15-49-6071Wikoozsgip A1c/Hemoglobin.total in BloodLorraine Oneill MD Work Phone: Start: 32-39-8553Cnnwi spine cervical 4 or 5 views Chrisreedouglas Wagoner MD Work Phone: Start: 52-61-2759Mfjczom breast tomosynthesis bilateralLaksamisha Ford MD Work Phone: Start: 12-04-2023 End: 36-74-1415Mae spinal canal cervical w/o contrast matrlTagrmiles Wagoner MD Work Phone: Start: 49-52-4972Tvavv spine lumbosacral minimum 4 viewsTagrmiles Wagoner MD Work Phone: Start: 17-25-9911Vgz brain brain stem w/o w/contrast materialEmjaret Garza [employer].ENVIRONMENTAL ENGINEER SCIENTIST Work Phone: Start: 23-47-0115Nifl bld gluc mntr dev cleared fda spec home useCcf ProviderStart: 03-53-5355Gdcdy Strep (POC)DO Erich Carlin Work Phone: Start: 65-38-8240Xszmanwsj of sacroiliac joint using fluoroscopic guidanceAmanda Saavedra comment on above:0% reliefStart: 60-05-1901Qqict conduction studies 5-6 studiesEmjaret Garza APRN.ENVIRONMENTAL ENGINEER SCIENTIST Work Phone: Start: 35-98-6571Zqxjhk scan of lower limb veinsDO Erich Kuns Work Phone: Start: 71-47-7027TUO (POC)DO Erichdrew Cesars Work Phone: Start: 30-48-4168Dtiaw X-ray of right handDO Erich Kuns Work Phone: Start: 68-06-6240Siaumdrho of sacroiliac joint using fluoroscopic guidanceWest Glacier [facility] comment on above:100% reliefStart: 04-20-2023 Radiofrequency ablation of nerve root of lumbar spine using fluoroscopic guidanceAmanda [facility] comment on above:Right L4/5+L5/S1- 25% reliefStart: 24-34-8026Jruhlkkzwsk Panel (PCR)DO Erich Gillis Work Phone: Start: 47-55-3169Kazkmkdzn into facet joint of lumbar spine using fluoroscopic guidanceWest Glacier [facility] comment on above:100% reliefStart: 06-27-7692Tpcyv X- ray of left handDO Erich Gillis Work Phone: Start: 74-48-4152Wavxk chest X-rayDO Erich Gillis Work Phone: Start: 04-82-4957Ofheq X-ray of left handDO Erich Gillis Work Phone: Start: 83-84-6882Qyyhhwgje digital breast tomosynthesis Josy Babin MD Work Phone: Start: 17-81-3701Saesd X-ray of left handDO Erichdrew Gillis Work Phone: Start: 22-90-0581Yhzzelsq of the trapeziumDO Erichdrew Cesars Work Phone: Start: 83-93-6851Cqtoh X-ray of left thumbDO rEich Gillis Work Phone: Start: 53-23-8755Gydslkzdi of left wrist (body structure)Jamey Malone start: 88-27-2139Egoxllxrp of sacroiliac joint using fluoroscopic guidanceJamey Malone comment on above:bilat SIJI (diagnostic)- 90% relief for at least 4 weeksStart: 98-27-4319Cjtac X-ray of left handDO Erich Gillis Work Phone: Start: 27-00-1840UQ of paranasal sinus without contrastDO Erich Carlin Work Phone: Start: 63-92-4051Lhoavllyymvcdkm of liverDO Erich Gillis Work Phone: Start: 23-98-5002Ntuoq chest X-rayDO Erich Gillis Work Phone: Start: 84-39-2430Zvbqqen point (body structure)Jamey Malone comment on above:100% relief until fall 1 week later. Start: 08-54-2401Rfijr chest X-rayDO Erich Gillis Work Phone: Start: 85-33-9071QJ of head with contrastDO Erich Gillis Work Phone: Start: 64-01-5390Corqnzgs injection of lumbar spine using fluoroscopic guidanceRyan LIVE Comment on above:L4/5 ANGELA- 95% reliefStart: 11-27-2021 Plain X-ray of bilateral handsDO Erich Gillis Work Phone: Start: 10-22-2021 End: 01-81-7907CrarfrnbbcfTwabft F Grundfest MD Work Phone: Start: 47-27-5162SU of abdomen and pelvis without contrastDO Erich Arsenios Work Phone: Start: 98-41-2805Wvnh hip region structure (body structure)Jameykenisha Malone comment on above:80% reliefStart: 87-49-0537Dhnwfbyahsa Carl Norwood DO Work Phone: Start: 06-70-2872Sshcvzus of urethraAmanda Saluc[facility] start: 89-67-9286Aqcahszfjo examination knee 3 views Naldo Browne MD Work Phone: Start: 90-10-1981Wevfymnc of urethraAmanda [facility]uc[facility] Healthcare Solutions start: 63-67-6406Mzopsbvd of urethraAmanda [facility]uc[facility] start: 44-27-2064Aucrjfaaud, device (physical object) [employer] carpal tunnel syndrome (disorder)Jamey Malone closed fracture of left foot (disorder)Jamey Malone colonoscopyColonoscopy( Confirmed )[employer] History of cataract extractionS/P cataract surgery Comment on above:bilateral eyes 08/2023History of decompression of median nerve Erich Gillis Other History of decompression of median nerveH/O carpal tunnel repairDO Erich Gillis Work Phone: HysterectomyHysterectomy( Confirmed )[employer] Injection of facet joint using fluoroscopic guidance Jamey Malone comment on above:R L4/L5 L5/S1 MBB-100% relief for 24 hoursLumpectomy of breastLumpectomy of breast( Confirmed )[employer] Plan of Treatment DateCare ActivityDetailAuthorStart: 11-12-3840Wkyct microalbumin profile DTaP,Tdap,Td Vaccine (2 - Td or Tdap)[facility] 08-21-2025 End: 90-08-7364Ozszxle encounter cgcnktitw12/13/2026 2:40 PM EDT Office Visit Endocrinology [address] [place] [address] Lorraine Oneill MD [address] [place] [address] follow upEndocrinologyComment on above:follow upStart: 41-41-7598Rymlzpjq foot examinationDiabetic Foot ExamCleveland Clinic Hillcrest Hospitaltart: 14-64-2608Wfursfpyjo measurementSerum CreatinineCleveland Clinic Hillcrest Hospitaltart: 31-48-4195Gmhjnbhsy B screeningUrine Albumin:Creatinine RatioCleveland Clinic Hillcrest Hospitaltart: 07-23-2025 Hepatitis B surface antibody levelLDL CholesterolCleveland Clinic Hillcrest Hospitaltart: 80-94-8924Amisdpwvix measurementSerum CreatinineCleveland Clinic Hillcrest Hospitaltart: 83-23-3525Cnevxhcvu B screeningUrine Albumin:Creatinine RatioWilson Health Start: 86-41-0457Qxkqflfxy B surface antibody levelLDL CholesterolCleveland Clinic Hillcrest Hospitaltart: 04-19-2025 End: 31-64-7997Sauxfwu encounter lovatlixc65/09/2026 11:00 AM EST Office Visit Endocrinology [address] [place] [address] Karl Cook APRN.ENVIRONMENTAL ENGINEER SCIENTIST [address] [place] [address] Return in about 6 months (around 02/21/2025) for with nurse practitioner and in one year with Aury Oneill.EndocrinologyComment on above:Return in about 6 months (around 02/21/2025) for with nurse practitioner and in one year with Aury Oneill.Start: 03-05-2025 End: 10-41-8991Zlmtagh encounter uvwzyeqnz24/25/2025 10:00 AM EST Office Visit Neurology [address] [place] [address] Dori Padilla PA-C [address] [place] [address] NeurologyStart: 02-21-2025 End: 79-55-7133Cagmaeuhnexhl metabolic 2000 panel - Serum or PlasmaCOMPREHENSIVE METABOLIC PANEL Lab Routine Type 2 diabetes mellitus with stage 3a chronic kidney disease, without long-term current use of insulin (HCC) Expected: 02/21/2025, Expires: 05/23/2025[facility] ClinicComment on above:Expected: 02/21/2025, Expires: 05/23/2025Start: 02-21-2025 End: 79-50-2893Veyldubnhr A1c in BloodHEMOGLOBIN A1C Lab Routine Type 2 diabetes mellitus with stage 3a chronic kidney disease, without long-term current use of insulin (HCC) Expected: 02/21/2025, Expires: 05/23/2025[facility] Work Phone: Comment on above:Expected: 02/21/2025, Expires: 05/23/2025Start: 02-21-2025 End: 59-08-5231Jqilv 1996 panel - Serum or PlasmaLIPID PANEL, FASTING Lab Routine Type 2 diabetes mellitus with stage 3a chronic kidney disease, without long-term current use of insulin (HCC) Expected: 02/21/2025, Expires: 05/23/2025 [facility] HealthComment on above:Expected: 02/21/2025, Expires: 05/23/2025Start: 02-21-2025 End: 44-07-0828Yfxarqrsmjok/Creatinine [Mass Ratio] in UrineALBUMIN/CREATININE RATIO, URINE Lab Routine Type 2 diabetes mellitus with stage 3a chronic kidney disease, without long-term current use of insulin (HCC) Expected: 02/21/2025, Expires: 05/23/2025[facility] ClinicComment on above:Expected: 02/21/2025, Expires: 05/23/2025Start: 02-21-2025 End: 76-60-5090EWV W/REFLEX FT4TSH W/REFLEX FT4 Lab Routine Type 2 diabetes mellitus with stage 3a chronic kidney disease, withoutlong-term current use of insulin (HCC) Expected: 02/21/2025, Expires: 05/23/2025[facility] ClinicComment on above:Expected: 02/21/2025, Expires: 05/23/2025Start: 38-05-0902Nopwsftydt A1c aozxhngqhupAgK4RAgyhbgxhe ClinicStart: 90-95-7342Zmeudipy foot examination Diabetic Foot ExamC[facility] Clinic Hillcre[facility] Hospitaltart: 01-18-2025 End: 02-68-7624Sevsdjq encounter gsmrdsfke51/10/2025 11:00 AM EDT Office Visit Endocrinology [address] [place] [address] Karl Cook APRN.ENVIRONMENTAL ENGINEER SCIENTIST [address] [place] [address] Return in about 6 months (around 12/26/2024).Endocrinology Comment on above:Return in about 6 months (around 12/26/2024).Start: 01-09-2025 End: 11-31-6049Ucadkoj encounter /01/2025 2:00 PM EDT Education Endocrinology [address] [place] [address] [place] [address] [place] [address] [place] [address] joint, in-person appt 10/17/24 @ 11AM-12PMEndocrinologyComment on above:joint, in-person appt 10/17/24 @ 11AM-12PMStart: 44-29-8026Gorwdpptl vaccinationInfluenza Vaccine (#1)[facility]: 45-10-2592Rbahndriig A1c iyyywjavbheBpL3YJcagancuy ClinicStart: 10-17-2024 End: 99-39-1249Duwuijb encounter /09/2025 11:00 AM EDT Education Endocrinology [address] [place] [address] [place] [address] [place] [address] joint, in-person appt 10/17/24 @ 11AM-12PMEndocrinologyComment on above:joint, in-person appt 10/17/24 @ 11AM-12PMStart: 10-09-2024 End: 32-64-2504Zvhdtezvi to same day surgery centerAmbulatory SurgeryComment on above:INJECT GREATER TROCHANTERIC BURSA RIGHTINJECTION(S) STEROID TRANSFORAMINAL EPIDURAL LUMBAR W/IMAGE GUIDANCE FLUORO OR CTStart: 10-09-2024 End: 90-45-5744Pberedxnwljhdc aspir&/inj major jt/bursa w/o [facility] [place] Start: 10-09-2024 End: 99-67-1416Cndvqvazporh guidance needle placement add [facility]AINStart: 10-09-2024 End: 40-58-7388Rry anes&/strd w/img tfrml edrl lmbr/sac 1 lvlINJECTION(S) STEROID TRANSFORAMINAL EPIDURAL LUMBAR W/IMAGE GUIDANCE FLUORO OR CT Lumbosacral spondylosis with radiculopathy Scoliosis, unspecified scoliosis type, unspecified spinal region Lumbosacral stenosis Spinal stenosis, lumbar region, without neurogenic claudication 10/09/2024 12:51 PM [facility] [place]Start: 10-09-2024 End: 90-23-7294Rgu anes&/strd w/img tfrml edrl lmbr/sac ea lvINJECT ANES AGENT STEROID TRANSFORAMINAL EPIDURAL LUMBAR OR SACRAL EA ADD'L LEVEL W/IMAGE GUIDANCE FLUORO OR CT Lumbosacral spondylosis with radiculopathy Scoliosis, unspecified scoliosis type, unspecified spinal region Lumbosacral stenosis Spinal stenosis, lumbar region, without neurogenic claudication 10/09/2024 12:51 PM [facility]AINStart: 00-54-3082Saxvepbrsh hospital visit by physicianAmbulatory Surgery Comment on above:Trochanteric bursitis of right hip [M70.61], Lumbosacral spondylosis with radiculopathy [M47.27], Scoliosis, unspecified scoliosis type, unspecified spinal region [M41.9], Lumbosacral stenosis [M48.07]Lumbosacral spondylosis with radiculopathy [M47.27], Scoliosis, unspecified scoliosis type, unspecified spinal region [M41.9], Lumbosacral stenosis [M48.07], Spinal stenosis, lumbar region, without neurogenic claudication [M48.061]Start: 46-56-6989Jzyvvdqlvf measurementSerum CreatinineCleveland Clinic Hillcrest Hospitaltart: 54-30-1020Sgggdogyu B screeningUrine Albumin:Creatinine RatioWilson Health Start: 09-27-2024 End: 09-53-6842Qwuapoo encounter ezgzqkctd17/19/2025 11:00 AM EDT Office Visit [facility] [address] [place] [address] [place] [address] [place] [address] s/p injectiosn with Dr. Hunt 08/14[facility] Comment on above:s/p injectiosn with Dr. Hunt 08/14Start: 09-13-2024 End: 76-95-4682Yvaojvj encounter omsuglzzt09/05/2025 11:00 AM EDT Office Visit Neurology [address] [place] [address] Sheryl Schwartz, MARÍA ELENA.ENVIRONMENTAL ENGINEER SCIENTIST [address] [place], [place] [id number] 6 month follow upNeurologyComment on above:6 month follow upStart: 09-11-2024 End: 66-75-6104Hksadjj encounter tbpfkgjoy93/03/2025 9:40 AM EDT Office Visit [facility] [address] [place] [address] tSeve Wagoner MD [address] [place], [place] [id number] 4-6 weeksSpwillis-kn[facility] InstituteComment on above:4-6 weeksStart: 08-29-2024 End: 33-31-2939Tjhublq encounter procedureCardiologyComment on above:potsDX:POTS (postural orthostatic tachycardia syndrome)Start: 08-27-2024 End: 19-65-9996Ftgpime encounter djagitxod19/19/2025 12:30 PM EDT Office Visit Neurology [address] [place] [address] Dori Padilla PA-C [address] [place], [place] [id number] 6 month follow upNeurologyComment on above:6 month follow upStart: 08-24-2024 End: 71-76-9178Oeenixo encounter rwtqgebnd99/16/2025 9:30 AM EDT Office Visit Neurology [address] [place] [address] Sheryl Schwartz APRN.ENVIRONMENTAL ENGINEER SCIENTIST [address] [place] [address] 6 month follow upNeurologyComment on above:6 month follow upStart: 08-21-2024 End: 69-17-9539Kezdjhx encounter /13/2025 3:00 PM EDT Office Visit Endocrinology [address] [place], [place] [phone] Lorraine Oneill MD [address] [place] [address] 6 month follow upEndocrinologyComment on above:6 month follow upStart: 08-21-2024 End: 46-40-3406Ansubaferr A1c in BloodHEMOGLOBIN A1C Lab Routine Type 2 diabetes mellitus with stage 3a chronic kidney disease, without long-term current use of insulin (HCC) 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athy (HCC) Expec evans: 08/21/2024, Expires: 11/20/2024[facility] ClinicComment on above:Expected: 08/21/2024, Expires: 11/20/2024Start: 08-21-2024 End: 55-16-2959Pfxru 1996 panel - Serum or PlasmaLIPID PANEL BASIC Lab Routine Type 2 diabetes mellitus with stage 3a chronic kidney disease, without long-term current use of insulin (HCC) 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athy (HCC) Expected: 08/21/2024, Expires: 11/20/2024[facility] Work Phone: Comment on above:Expected: 08/21/2024, Expires: 11/20/2024Start: 08-21-2024 End: 30-52-3506Adrkbecdifeb/Creatinine [Mass Ratio] in UrineALBUMIN/CREATININE RATIO, URINE Lab Routine Type 2 diabetes mellitus with stage 3a chronic kidney disease, without long-term current use of insulin (HCC) 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athy (HCC) Expected: 08/21/2024, Expires: 11/20/2024 [facility] HealthComment on above:Expected: 08/21/2024, Expires: 11/20/2024Start: 08-21-2024 End: 50-22-2394Qwyxh function 2000 panel - Serum or PlasmaRENAL FUNCTION PANEL Lab Routine Type 2 diabetes mellitus with stage 3a chronic kidney disease, with out long-term current use of insulin (HCC) 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athy (HCC) Expected: 08/21/2024, Expires: 11/20/2024leveland ClinicComment on above:Expected: 08/21/2024, Expires: 11/20/2024Start: 08-21-2024 End: 59-78-3474Awesfzfrjgg [Units/volume] in Serum or PlasmaTHYROID STIMULATING HORMONE Lab Routine Type 2 diabetes mellitus with stage 3a chronic kidney diseas e, without long-term current use of insulin (HCC) 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athy (HCC) Expected: 08/21/2024, Expires: 11/20/2024leveland ClinicComment on above:Expected: 08/21/2024, Expires: 11/20/2024Start: 08-16-2024 End: 46-69-5265Dphzzvw encounter ltilyyhus45/08/2025 11:00 AM EDT Office Visit [facility] [address] [facility] [place] [address] [place] [address] [place] [address] Lumbosacral spondylosis with radiculopathy [M47.27] Spine InstituteComment on above:Lumbosacral spondylosis with radiculopathy [M47.27]Start: 08-14-2024 End: 11-74-5712Jnhfyzufz to same day surgery uaarry3008/14/2024 11:07 AM EDT - 08/14/2024 11:45 AM EDT Surgery Ambulatory Surgery [address] [facility] [place] [address] Zak Cohen, DO [address] [place] [address] SACRAL(CAUDAL) EPIDURAL BLOCK W/INJECTION NON NEUROLYTIC W/IMAGE GUIDANCEAmbulatory SurgeryComment on above: SACRAL(CAUDAL) EPIDURAL BLOCK W/INJECTION NON NEUROLYTIC W/IMAGE GUIDANCEStart: 08-14-2024 End: 99-55-1166Iqi dx/ther sbst intrlmnr lmbr/sac w/img gdnSACRAL(CAUDAL) EPIDURAL BLOCK W/INJECTION NON NEUROLYTIC W/IMAGE GUIDANCE Lumbosacral spondylosis with radiculopathy Spinal stenosis of lumbar region, unspecified whether neurogenic claudication present 08/14/2024 11:07 AM EDTMC [place] Start: 16-66-1312Kvnwbrvvbi hospital visit by fgcywasuk27/06/2025 11:07 AM EDT Hospital Encounter Ambulatory Surgery [address] [place] [address] Zak Cohen, DO [address] [place] [address] Lumbosacral spondylosis with radiculopathy [M47.27], Spinal stenosis of lumbar region,unspecified whether neurogenic claudication present [M48.061]Ambulatory SurgeryComment on above: Lumbosacral spondylosis with radiculopathy [M47.27], Spinal stenosis of lumbar region, unspecified whether neurogenic claudication present [M48.061]Start: 75-43-3182Nveouokddh measurementSerum CreatinineChesaning ClinicStart: 01-18-8611Kclkzmjayl A1c ontqahvmoppGbT7JKwcphdycj ClinicStart: 07-12-2024 End: 74-22-2625stghelnyhj88/03/2025 9:30 AM EDT [facility] [address] [place] [address] Steve Wagoner MD [address] [place], [place] [id number] 2-4 weeks Spine InstituteComment on above:2-4 weeksStart: 42-78-4960Ekumrfrh screening Dilated Retinal ExamCleveland Clinic Hillcrest Hospitaltart: 03-08-8252Rvamx-19 Vaccine ( season)Covid-19 Vaccine ( season)[facility]: 06-28-2024 End: 14-11-3705hlzxchfvsp16/20/2025 9:30 AM EDT [facility] [address] [place] [address] Steve Wagoner MD [address] [place] [address] 2-4 weeks Spine InstituteComment on above:2-4 weeksStart: 06-26-2024 End: 71-22-0950Yhzorvkiz to same day surgery centerAmbulatory SurgeryComment on above:INJECTION(S) ANESTHETIC AGENT AND STEROID TRANSFORAMINAL EPIDURAL LUMBAR W/IMAGE GUIDANCE FLUORO ORCTStart: 07-58-5325Iyziadoxgw hospital visit by physicianAmbulatory SurgeryComment on above:Spinal stenosis of lumbar region, unspecified whether neurogenic claudication present [M48.061], Lumbosacral spondylosis with radiculopathy [M47.27]Start: 06-26-2024 End: 97-63-9222Ofx anes&/strd w/img tfrml edrl lmbr/sac 1 lvlCkettering health main campus Clinic Start: 06-25-2024 End: 08-14-1791Zptmqbc encounter nnmocjmns11/17/2025 3:00 PM EDT Office Visit Endocrinology [address] [place] [address] Karl Cook, [employer].ENVIRONMENTAL ENGINEER SCIENTIST [address] [place], [place] [phone] 6 month follow upEndocrinologyComment on above:6 month follow upStart: 96-60-6446Wqdnkezx foot examinationDiabetic Foot ExamWilson Health Start: 06-14-2024 End: 72-36-5379Yvvuixt encounter procedureNeurologyComment on above:6 month follow upStart: 06-07-2024 End: 12-94-1034Wissitfux to same day surgery fvzybu8306/07/2024 10:39 AM EST - 06/07/2024 11:07 AM EST Surgery Ambulatory Surgery [address] [facility] [place] [address] Zak Cohen, DO [address] [place] [address] INJECTION(S) ANESTHETIC AGENT AND STEROID TRANSFORAMINAL EPIDURAL LUMBAR W/IMAGE GUIDANCE FLUORO OR CT Ambulatory SurgeryComment on above:INJECTION(S) ANESTHETIC AGENT AND STEROID TRANSFORAMINAL EPIDURAL LUMBAR W/IMAGE GUIDANCE FLUORO ORCTStart: 06-07-2024 End: 07-66-3732Hik anes&/strd w/img tfrml edrl lmbr/sac 1 lvlINJECTION(S) ANESTHETIC AGENT AND STEROID TRANSFORAMINAL EPIDURAL LUMBAR W/IMAGE GUIDANCE FLUORO ORCT Spinal stenosis of lumbar region, unspecified whether neurogenic claudication present Lumbosacral spondylosis with radiculopathy 06/07/2024 10:39 AM [facility]Start: 08-82-1743Ekkkrojzrs hospital visit by physician 06/07/2024 10:39 AM [facility] Hospital Encounter Ambulatory Surgery [address] [facility] [place] [address] JoelleZak cedeno, DO [address] [place] [address] Spinal stenosis of lumbar region, unspecified whether neurogenic claudication present [M48.061], Lumbosacral spondylosis with radiculopathy [M47.27]Ambulatory SurgeryComment on above:Spinal stenosis of lumbar region, unspecified whether neurogenic claudication present [M48.061], Lumbosacral spondylosis with radiculopathy [M47.27]Start: 06-07-2024 End: 49-11-7496Hodemuulk to same day surgery decqjb6306/07/2024 8:04 AM EST - 06/07/2024 8:32 AM [facility] Surgery Ambulatory Surgery [address] [facility] [place] [address] Zak Cohen, DO [address] [place] [address] INJECTION(S) ANESTHETIC AGENT AND STEROID TRANSFORAMINAL EPIDURAL LUMBAR W/IMAGE GUIDANCE FLUORO OR CTAmbulatory SurgeryComment on above:INJECTION(S) ANESTHETIC AGENT AND STEROID TRANSFORAMINAL EPIDURAL LUMBAR W/IMAGE GUIDANCE FLUORO ORCTStart: 06-07-2024 End: 29-60-9902Flg anes&/strd w/img tfrml edrl lmbr/sac 1 lvlINJECTION(S) ANESTHETIC AGENT AND STEROID TRANSFORAMINAL EPIDURAL LUMBAR W/IMAGE GUIDANCE FLUORO ORCT Spinal stenosis of lumbar region, unspecified whether neurogenic claudication present Lumbosacral spondylosis with radiculopathy 06/07/2024 8:04 AM [facility]Start: 26-48-4768Ctbwvshega hospital visit by physician 06/07/2024 8:04 AM EST Hospital Encounter Ambulatory Surgery [address] [place] [address] Zak Cohen, DO [address] [place] [address] Spinal stenosis of lumbar region, unspecified whether neurogenic claudication present [M48.061], Lumbosacral spondylosis with radiculopathy [M47.27]Ambulatory SurgeryComment on above:Spinal stenosis of lumbar region, unspecified whether neurogenic claudication present [M48.061], Lumbosacral spondylosis with radiculopathy [M47.27]Start: 72-06-7322Xuhaymkhlg measurementSerum CreatinineWilson Health Start: 05-84-7121Zztkyxdnc B screeningUrine Albumin:Creatinine RatioCleveland Clinic Hillcrest Hospitaltart: 96-92-9569Vptozedun B surface antibody levelLDL Cholesterol [facility]: 04-27-2024 End: 53-29-8949Fvjuelw encounter wdndgsifn46/17/2025 11:00 AM EST Office Visit Endocrinology [address] [place] [address] Karl Cook APRN.ENVIRONMENTAL ENGINEER SCIENTIST [address] [place] [address] 6 month follow upEndocrinologyComment on above:6 month follow upStart: 04-20-2024 End: 87-46-2158Xuwxjhppytsww metabolic 2000 panel - Serum or PlasmaCOMPREHENSIVE METABOLIC PANEL Lab Routine Type 2 diabetes mellitus with stage 3a chronic kidney disease, without long-term current use of insulin (HCC) Expected: 04/20/2024, Expires: 07/20/2024leveland ClinicComment on above:Expected: 04/20/2024, Expires: 07/20/2024Start: 04-20-2024 End: 95-89-6764Emmlbekzwy A1c in BloodHEMOGLOBIN A1C Lab Routine Type 2 diabetes mellitus with stage 3a chronic kidney disease, without long-term current use of insulin (HCC) Expected: 04/20/2024, Expires: 07/20/2024[facility] Work Phone: Comment on above:Expected: 04/20/2024, Expires: 07/20/2024Start: 04-20-2024 End: 91-59-2386Chcem 1996 panel - Serum or PlasmaLIPID PANEL BASIC Lab Routine Type 2 diabetes mellitus with stage 3a chronic kidney disease, without long-term current use of insulin (HCC) Expected: 04/20/2024, Expires: 07/20/2024leveland ClinicComment on above:Expected: 04/20/2024, Expires: 07/20/2024Start: 04-20-2024 End: 37-09-4675Tmizssweoaze/Creatinine [Mass Ratio] in UrineALBUMIN/CREATININE RATIO, URINE Lab Routine Type 2 diabetes mellitus with stage 3a chronic kidney disease, without long-term current use of insulin (HCC) Expected: 04/20/2024, Expires: 07/20/2024leveland ClinicComment on above:Expected: 04/20/2024, Expires: 07/20/2024Start: 04-20-2024 End: 81-44-0662Hijttwuluif [Units/volume] in Serum or PlasmaTHYROID STIMULATING HORMONE Lab Routine Type 2 diabetes mellitus with stage 3a chronic kidney diseas e, without long-term current use of insulin (HCC) Expected: 04/20/2024, Expires: 5Cleveland ClinicComment on above:Expected: 04/20/2024, Expires: 07/20/2024Start: 13-81-6420Qlyeplw Directive DiscussionAdvance Directive DiscussionCleveland Clinic Hillcrest Hospitaltart: 41-17-8284Fnmwfkxlei A1c vviopjxcdftOcZ3Z [facility]: 03-30-2024 End: 76-78-2738Hlpdhs-up hlzucosmt80/20/2024 10:00 AM EST Education Endocrinology [address] [place] [address] [place] [address] [place] [address] FOLLOW UPEndocrinologyComment on above:FOLLOW UPStart: 03-20-2024 End: 60-58-3280Lxoxyfl encounter sigdpuxmq84/10/2024 2:00 PM EST Office Visit Neurological Baptism [address] [place] [phone] Andres Rubio MD [address] [place] [address] follow upNeurological RestorationComment on above:follow up Start: 03-01-2024 End: 91-94-2139aeukmduflf66/21/2024 10:00 AM EST [facility] [address] [place] [address] tSeve Wagoner MD [address] [place] [address] f/uSpine InstituteComment on above:f/uStart: 02-16-2024 End: 88-57-0151dgqrudrnzoFnoxWayne Memorial Hospital Physical TherapyComment on above: 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athy (HCC) [E11.42]Abnormality of GaitStart: 02-09-2024 End: 48-95-4844ecdusibhipPszdWayne Memorial Hospital Physical TherapyComment on above: 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athy (HCC) [E11.42]Abnormality of GaitStart: 02-07-2024 End: 18-90-5437Dctwckfpi to same day surgery xgdrkn2402/07/2024 1:20 PM EDT - 02/07/2024 1:55 PM EDT Surgery Ambulatory Surgery [address] [place] [address] Zak Cohen DO [address] [place] [address] INJECTION(S) ANESTHETIC AGENT AND STEROID TRANSFORAMINAL EPIDURAL LUMBAR W/IMAGE GUIDANCE FLUORO OR CTAmbulatory SurgeryComment on above:INJECTION(S) ANESTHETIC AGENT AND STEROID TRANSFORAMINAL EPIDURAL LUMBAR W/IMAGE GUIDANCE FLUORO ORCTStart: 02-07-2024 End: 17-93-5355Gdy anes&/strd w/img tfrml edrl lmbr/sac 1 lvlINJECTION(S) ANESTHETIC AGENT AND STEROID TRANSFORAMINAL EPIDURAL LUMBAR W/IMAGE GUIDANCE FLUORO ORCT Spinal stenosis of lumbar region, unspecified whether neurogenic claudication present Lumbosacral spondylosis with radiculopathy 02/07/2024 1:20 PM EDTMC [facility]AINStart: 36-12-9476Kkhnmtwewq hospital visit by physician 02/07/2024 1:20 PM EDT Hospital Encounter Ambulatory Surgery [address] [place] [address] Zak Cohen, DO [address] [place] [address] Spinal stenosis of lumbar region, unspecified whether neurogenic claudication present [M48.061], Lumbosacral spondylosis with radiculopathy [M47.27]Ambulatory SurgeryComment on above:Spinal stenosis of lumbar region, unspecified whether neurogenic claudication present [M48.061], Lumbosacral spondylosis with radiculopathy [M47.27]Start: 02-07-2024 End: 92-97-3007Rlwuwguot to same day surgery bwfcex6102/07/2024 8:38 AM EDT - 02/07/2024 9:13 AM EDT Surgery Ambulatory Surgery [address] [place] [address] Zak Cohen, [address] [place] [address] INJECTION(S) ANESTHETIC AGENT AND STEROID TRANSFORAMINAL EPIDURAL LUMBAR W/IMAGE GUIDANCE FLUORO OR CTAmbulatory SurgeryComment on above:INJECTION(S) ANESTHETIC AGENT AND STEROID TRANSFORAMINAL EPIDURAL LUMBAR W/IMAGE GUIDANCE FLUORO ORCTStart: 02-07-2024 End: 92-86-2009Ruj anes&/strd w/img tfrml edrl lmbr/sac 1 lvlINJECTION(S) ANESTHETIC AGENT AND STEROID TRANSFORAMINAL EPIDURAL LUMBAR W/IMAGE GUIDANCE FLUORO ORCT Spinal stenosis of lumbar region, unspecified whether neurogenic claudication present Lumbosacral spondylosis with radiculopathy 02/07/2024 8:38 AM EDTMC [facility]AINStart: 98-99-4256Gtqraoyuoy hospital visit by physician 02/07/2024 8:38 AM EDT Hospital Encounter Ambulatory Surgery [address] [place] [address] Zak Cohen DO [address] [place] [address] Spinal stenosis of lumbar region, unspecified whether neurogenic claudication present [M48.061], Lumbosacral spondylosis with radiculopathy [M47.27]Ambulatory SurgeryComment on above:Spinal stenosis of lumbar region, unspecified whether neurogenic claudication present [M48.061], Lumbosacral spondylosis with radiculopathy [M47.27]Start: 02-07-2024 End: 26-14-6255Mqogmbb encounter /29/2024 7:00 AM EDT Office Visit Pre Admission Testing [address] [place] [address] JoelleisPre Admission TestingComment on above:MendisStart: 02-02-2024 End: 51-53-2800bdnrfumnriQcgu [facility] Physical TherapyComment on above: 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athy (HCC) [E11.42]Abnormality of GaitStart: 01-26-2024 End: 34-26-7238uozpjnmnek45/17/2024 3:15 PM EDT OT/PT/Speech Visit [facility] [address] [place] [address] Karl Lion, PT [address] [place] [address] 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athy (HCC) [E11.42][facility] Physical TherapyComment on above: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athy (HCC) [E11.42]Start: 01-19-2024 End: 79-99-1352Psoltkw encounter zwjzywxlc95/10/2024 3:00 PM EDT Office Visit Endocrinology [address] [place] [address] Lorraine Oneill MD [address] [place] [address] 6 month follow upEndocrinologyComment on above:6 month follow upStart: 01-17-2024 End: 91-54-1593Xnpbtbm encounter txmligyxw25/08/2024 11:15 AM EDT OT/PT/Speech Visit [facility] [address] [place] [address] LionKarl watt, PT [address] [place] [address] PT consultFranciscan Health [facility] Physical TherapyComment on above:PT consultStart: 01-16-2024 End: 16-97-0729qgcgfrikzu38/07/2024 1:05 PM EDT Procedure Neurology [address] [place] [address] Neurogenic orthostatic hypotension NeurologyComment on above:Neurogenic orthostatic hypotensionStart: 01-16-2024 End: 86-51-9815Kjbkfwg encounter elmmvishd78/07/2024 9:40 AM EDT Office Visit [facility] [address] [place] [address] Steve Wagoner MD [address] [place], [place] [id number] f/u with provider,Spine InstituteComment on above:f/u with provider,Start: 01-14-2024 End: 19-95-1933Pvugipkyajmhr metabolic 2000 panel - Serum or PlasmaCOMPREHENSIVE METABOLIC PANEL Lab Routine Neurogenic orthostatic hypotension (HCC) Expected: 01/14/2024, Expires: 04/14/2024leveland ClinicComment on above:Expected: 01/14/2024, Expires: 04/14/2024Start: 01-06-2024 End: 20-77-1531Ghelvvc encounter owxgraayo61/27/2024 11:30 AM EDT Appointment Mammography [address] [address] Ppytgksmlxj Start: 01-05-2024 End: 97-37-8573Cdcdltq encounter procedureBreast CenterComment on above:Annual exam/mammogramIMAGING AT 245P; ESTABLISH CAREStart: 01-04-2024 End: 67-24-2279Qqsenl-up npqucbwwz33/25/2024 10:00 AM EDT Education Endocrinology [address] [place] [address] [place] [address] [place] [address] FOLLOW UPEndocrinologyComment on above:FOLLOW UPStart: 52-45-8479Xnsonclvk B surface antibody levelLDL CholesterolWilson Health Start: 55-71-4508Jszzs CreatinineSerum CreatinineCleveland Clinic Hillcrest Hospitaltart: 12-15-2023 End: 33-08-8948rwfyqdpxmc38/05/2024 1:00 PM EDT Results Only Cardiology [address] [place] [address] 6 month f/uCardiologyComment on above:6 month f/uStart: 12-15-2023 End: 85-16-8762Zaufyiv encounter procedureNeurologyComment on above:f/u6 month f/uStart: 12-14-2023 End: 00-37-5579Dpfepx OnlyCardiologyComment on above:[place] - Labile blood pressure [R09.89]; Near syncope [R55]Start: 10-32-9313Kjezf-19 Vaccine ()Covid-19 Vaccine ()[facility]: 96-85-9582Bpcxr-19 Vaccine ()Covid-19 Vaccine ()[facility]: 68-93-6500Jqgkswjxx vaccinationInfluenza Vaccine (#1)[facility]: 12-09-2023 End: 56-37-7103Icfrrpn encounter procedureCardiologyComment on above:Labile blood pressure [R09.89]; Near syncope [R55][place] - Labile blood pressure [R09.89]; Near syncope [R55]Start: 12-04-2023 End: 74-95-3872Uzqotdn encounter procedureBr[facility] MRIComment on above:Spinal stenosis of cervical region [M48.02]Spinal stenosis of lumbar region, unspecified whether neurogenic claudication present [M48.061]Start: 11-29-2023 End: 44-43-6461Fvmnjzd encounter smmdidoct39/20/2024 11:20 AM EDT Office Visit [facility] [address] [place], [place] [id number] Steve Wagoner MD [address] [place], [place] [id number] Former Pt--requests to see Dr. Wagoner [facility] Comment on above:Former Pt--requests to see Dr. Wagnoer againStart: 11-18-2023 Hemoglobin A1c sveninbaeuuXbV3ROyvzwsdsr ClinicStart: 11-05-2023 End: 66-85-1358Asphocm encounter hhbulzvfy44/27/2024 10:40 AM EDT Appointment [facility] Radiology MRI [address] [place], [place] [id number] [facility] MRIComment on above:MRI BRAIN WO/W IVCONStart: 60-01-8535Pumfuezzjt hospital visit by [facility] Radiology MRIComment on above:Labile blood pressure [R09.89]Start: 10-26-2023 End: 42-07-3086Qxwvqvv encounter aawhuiehi61/17/2024 4:00 PM EDT Office Visit Endocrinology [address] [facility] [place] [address] Karl Cook, [employer].ENVIRONMENTAL ENGINEER SCIENTIST [address] [place] [address] 3 month follow upEndocrinologyComment on above:3 month follow upStart: 10-17-2023 End: 84-94-3557Jrbrvnbgvssac metabolic 2000 panel - Serum or PlasmaCOMPREHENSIVE METABOLIC PANEL Lab Routine Well controlled type 2 diabetes mellitus with neurological manifestations (HCC) Expected: 10/17/2023, Expires: 01/16/2024 [facility] HealthComment on above:Expected: 10/17/2023, Expires: 01/16/2024Start: 10-17-2023 End: 80-65-3262Dxuenvlocs A1c in BloodHEMOGLOBIN A1C Lab Routine Well controlled type 2 diabetes mellitus with neurological manifestations (HCC) Expected: 10/17/2023, Expires: 01/16/2024[facility] CenterComment on above:Expected: 10/17/2023, Expires: 01/16/2024Start: 10-17-2023 End: 21-81-1187Itdujvxaxocs/Creatinine [Mass Ratio] in UrineALBUMIN/CREATININE RATIO, URINE Lab Routine Well controlled type 2 diabetes mellitus with neurological manifestations (HCC) Expected: 10/17/2023 (Approximate), Expires: 01/16/2024[facility] Work Phone: Comment on above:Expected: 10/17/2023 (Approximate), Expires: 01/16/2024Start: 10-17-2023 End: 50-19-4290Tjlxmmxuazb [Units/volume] in Serum or PlasmaTHYROID STIMULATING HORMONE Lab Routine Well controlled type 2 diabetes mellitus with neurological m anifestations (HCC) Expected: 10/17/2023, Expires: 01/16/2024[facility] Comment on above:Expected: 10/17/2023, Expires: 01/16/2024Start: 10-17-2023 End: 97-99-1825Ruvwqbmnv (T4) free [Mass/volume] in Serum or PlasmaT4 FREE/FREE THYROXINE Lab Routine Well controlled type 2 diabetes mellitus with neurological manifestations (HCC) Expected: 10/17/2023, Expires: 01/16/2024[facility] Comment on above:Expected: 10/17/2023, Expires: 01/16/2024Start: 10-05-2023 End: 28-87-9184Iwqvcbj encounter zuyinkkjr53/26/2024 11:00 AM EDT Education Endocrinology [address] [place] [address] [place] [address] [place] [address] Type 2 diabetes mellitus with stage 3a chronic kidney disease, without long-term current use of insulin (HCC) [E11.22, N18.31] EndocrinologyComment on above:Type 2 diabetes mellitus with stage 3a chronic kidney disease, without long-term current use of insulin (HCC) [E11.22, N18.31] Start: 61-97-6325ZyqainvtbUC West Chester Hospitaltart: 09-22-2023 End: 17-18-6560Sbmhllq encounter veprgyevx38/13/2024 2:00 PM EDT Appointment [facility] [place] [address] [place], [place] Labile blood pressure [R09.89][facility]iology MRIComment on above:Labile blood pressure [R09.89]Start: 55-47-7969Fozzhyuczl hospital visit by /13/2024 2:00 PM EDT Hospital Encounter [facility]iology [facility] [address] [place] [address] Canceled (Pt cx: Appointment Conflict)[facility] Radiology MRIComment on above:Canceled (Pt cx: Appointment Conflict)Start: 06-22-5511Cwhxdij referralWvumedicine [facility] Work Phone: Start: 09-13-2023 End: 94-02-8555Cpxprtl encounter xdbedhevn33/04/2024 11:00 AM EDT Office Visit Neurological [facility] [address] [place] [address] Andres Rubio MD [address] [place] [address] Labile blood pressure [R09.89]Neurological RestorationComment on above:Labile blood pressure [R09.89]Start: 08-24-2023 End: 36-92-8139Htohtzo encounter /15/2024 10:35 AM EDT Procedure Neurology [address] [facility] [place] [address] Xjgt leg weakness [R29.898]NeurologyComment on above:Left leg weakness [R29.898]Start: 50-49-3698XD CONTROLLED (<130/80)BP CONTROLLED (<130/80)[facility]: 07-26-2023 End: 89-46-6890Lmace tocopherol [Mass/volume] in Serum or PlasmaMercy Health Allen Hospital Work Phone: Comment on above:Expected: 07/26/2023, Expires: 10/25/2023Start: 07-26-2023 End: 23-69-5041FCVDWR BLOODMercy Health Allen Hospital Work Phone: Comment on above:Expected: 07/26/2023, Expires: 10/25/2023Start: 07-26-2023 End: 06-18-8650LXULYPKMSO NACHR ANTIBODYMercy Health Allen Hospital Work Phone: Comment on above:Expected: 07/26/2023, Expires: 10/25/2023Start: 07-26-2023 End: 74-30-1696HUXMTUSCMTQDSJ SCREEN, SERUMMercy Health Allen Hospital Work Phone: Comment on above:Expected: 07/26/2023, Expires: 10/25/2023Start: 07-26-2023 End: 35-26-9715GXUEX/JOLYNN PURI,SERMercy Health Allen Hospital Work Phone: Comment on above:Expected: 07/26/2023, Expires: 10/25/2023Start: 12-36-5584Ysnnng scan of lower limb veinsUS venous duplex LE RT [facility]: 81-90-7367QC Lower extremity vein - rightUC West Chester Hospitaltart: 87-87-2590Kqwesflgwu A1c/Hemoglobin.total in HgnlaAvN9QOwyetybgu ClinicStart: 06-02-2023 End: 85-86-6820ncvfehftnp26/22/2024 1:30 PM EST Treatment [facility] [address] [place] [address] Neva Epps PTAN[facility]S [facility] PTStart: 05-30-2023 End: 18-68-3930zbmwanhymf67/19/2024 1:30 PM EST Treatment [facility] [address] [place] [address] Neva Epps [facility]AN[facility] PTStart: 05-26-2023 End: 66-06-6986ksbidpvrqj54/15/2024 1:30 PM EST Treatment [facility] [address] [place] [address] Tameka Krause, PT [address] [place] [address] [facility] PTStart: comp foot exam completedDIABETIC FOOT EXAM [facility]: 47-68-5677VG CONTROLLED (<130/80)BP CONTROLLED (<130/80) [facility]: 74-72-9212Wtsebobk foot examinationDiabetic Foot Exam [facility]: 05-23-2023 End: 77-72-6066jzexuqaeapWBGY SWS PTComment on above:ArrivedStart: 05-21-2023 Hepatitis B screeningURINE ALBUMIN:CREATININE RATIOCleveland Clinic Hillcrest Hospitaltart: 34-78-1069Wzgjjkmyu B surface antibody levelLDL CHOLESTEROLWilson Health Start: 84-96-2183XRCYF CREATININESERUM CREATININECleveland Clinic Hillcrest Hospitaltart: 05-19-2023 End: 70-67-6409lykwcmbwnf90/08/2024 1:30 PM EST Treatment [facility] [address] [place] [address] Tameka Krause, PT [address] [place] [address] [facility] PTStart: 05-16-2023 End: 58-02-9252tlgwgcscqu56/05/2024 1:30 PM EST Treatment [facility] [address] [place] [phone] Tameka Krause, PT [address] [place] [address] [facility] PTStart: 59-03-6406Zpojyzi Directive DiscussionAdvance Directive DiscussionCleveland Clinic Hillcrest Hospitaltart: 97-84-8898YR CONTROLLED (<130/80)BP CONTROLLED (<130/80)[facility]: 19-55-4027HNWET CREATININESERUM CREATININE [facility]: 12-19-2022 End: 38-31-0710Khkbdysjkzmhy metabolic 2000 panel - Serum or PlasmaCOMP METABOLIC PANEL Lab Routine 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athy (HCC) Expected: 12/19/2022, Expires: 02/18/2023[facility] Work Phone: Comment on above:Expected: 12/19/2022, Expires: 02/18/2023Start: 12-19-2022 End: 84-66-3693Afwzhtkvdf A1c in BloodHGB A1C Lab Routine 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athy (HCC) Expected: 12/19/2022,Expires: 02/18/2023[facility] Work Phone: Comment on above:Expected: 12/19/2022, Expires: 02/18/2023Start: 12-19-2022 End: 90-34-6327Rgzzr 1996 panel - Serum or PlasmaLIPID PANEL BASIC Lab Routine 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athy (HCC) Expected: 12/19/2022, Expires: 02/18/2023[facility] Work Phone: Comment on above:Expected: 12/19/2022, Expires: 02/18/2023Start: 12-19-2022 End: 41-46-5646Gunssbwyjxw [Units/volume] in Serum or PlasmaTSH BLD Lab Routine 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athy (HCC) Expected: 12/19/2022, Expires: 02/18/2023[facility] Work Phone: Comment on above:Expected: 12/19/2022, Expires: 02/18/2023Start: 12-19-2022 End: 99-35-0212Ctgmaeqre (T4) free [Mass/volume] in Serum or PlasmaT4 FREE/FREE THYROX Lab Routine 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athy (HCC) Expected:12/19/2022, Expires: 02/18/2023[facility] Work Phone: Comment on above:Expected: 12/19/2022, Expires: 02/18/2023Start: 12-19-2022 End: 88-51-8627Mytpmppjbzpgesvd (T3) Free [Mass/volume] in Serum or PlasmaT3 FREE BLD Lab Routine 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athy (HCC) Expected: 12/19/2022, Expires: 02/18/2023[facility] Work Phone: Comment on above:Expected: 12/19/2022, Expires: 02/18/2023Start: 67-27-9664Ayqak-19 Vaccine ()Covid-19 Vaccine ()[facility]: 27-28-3351Plytr-19 Vaccine ()Covid-19 Vaccine ()[facility]: 69-02-0882Asyihkeie vaccinationCleveland Clinic Hillcrest Hospitaltart: comp foot exam completedDIABETIC FOOT EXAMCleveland Clinic Hillcre[facility] Hospitaltart: 19-41-7109HP CONTROLLED (<130/80)BP CONTROLLED (<130/80)[facility]: 88-93-7946Xrxruucilc A1c/Hemoglobin.total in XcwjuIPF7WCuufkpdwv ClinicStart: 46-53-6952JzgygoaavUC [facility] Hospitaltart: 04-52-1961EqmkopnclUC [facility] Hospitaltart: 98-16-4682Ueuar X-ray of left thumbXR finger LT thumbUC West Chester Hospitaltart: 17-66-9584MN Thumb - left ViewsOhiohealth Grady Memorial Hospital Start: 79-91-6734TC CONTROLLED (<130/80)BP CONTROLLED (<130/80)[facility] Start: 40-32-3303Ltdqljnnk B screeningURINE ALBUMIN:CREATININE RATIOCleveland Clinic [facility] Hospitaltart: 48-83-5815Ecbmznrzd B surface antibody levelLDL CHOLESTEROL [facility]: 83-25-3188YLMNA CREATININESERUM CREATININECleveland Clinic [facility] Hospitaltart: 04-70-8729CUVRC-19 VACCINE (7 - Pfizer series)COVID-19 VACCINE (7 - Pfizer series)[facility]: 22-59-8119BN CONTROLLED (<130/80)BP CONTROLLED (<130/80)[facility]: 26-16-4135AetbvsjkzajFYRDNNLKE [facility]: 08-21-2022 End: 43-44-3859Xzkxzqvbnpx [Units/volume] in Serum or PlasmaTSH BLD Lab Routine Elevated TSH Well controlled type 2 diabetes mellitus with neurological manifest ations (HCC) Expected: 08/21/2022, Expires: 10/21/2022[facility] Work Phone: Comment on above:Expected: 08/21/2022, Expires: 10/21/2022Start: 08-21-2022 End: 05-59-4149Uvmmjeqpl (T4) free [Mass/volume] in Serum or PlasmaT4 FREE/FREE THYROX Lab Routine Elevated TSH Well controlled type 2 diabetes mellitus with neurological manifestations (HCC) Expected: 08/21/2022, Expires: 10/21/2022 [facility] Work Phone: Comment on above:Expected: 08/21/2022, Expires: 10/21/2022Start: comp foot exam completedDIABETIC FOOT EXAMCleveland Clinic Hillcre[facility] Hospitaltart: 90-34-8635KZ CONTROLLED (<130/80)BP CONTROLLED (<130/80)[facility]: 05-20-2022 End: 82-41-5984HQKOSBD/CREAT RATIO RND URALBUMIN/CREAT RATIO RND UR Lab Routine 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athy (HCC) Expected: 05/20/2022, Expires: 05/20/2023[facility] Work Phone: Comment on above:Expected: 05/20/2022, Expires: 05/20/2023Start: 05-20-2022 End: 65-12-9154Egbrtrqvroorm metabolic 2000 panel - Serum or PlasmaCOMP METABOLIC PANEL Lab Routine 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athy (HCC) Expected: 05/20/2022, Expires: 05/20/2023[facility] Work Phone: Comment on above:Expected: 05/20/2022, Expires: 05/20/2023Start: 05-20-2022 End: 06-54-8138Ptyhcpfnwo A1c in BloodHGB A1C Lab Routine 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athy (HCC) Expected: 05/20/2022,Expires: 07/20/2022[facility] Work Phone: Comment on above:Expected: 05/20/2022, Expires: 07/20/2022Start: 05-20-2022 End: 25-26-0594Whzar 1996 panel - Serum or PlasmaLIPID PANEL BASIC Lab Routine Mixed hyperlipidemia Expected: 05/20/2022, Expires: 05/20/2023[facility] Work Phone: Comment on above:Expected: 05/20/2022, Expires: 05/20/2023Start: 05-20-2022 End: 81-29-3713Ratiaglrmaf [Units/volume] in Serum or PlasmaTSH BLD Lab Routine 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athy (HCC) Expected: 05/20/2022, Expires: 4C[facility] Work Phone: Comment on above:Expected: 05/20/2022, Expires: 05/20/2023Start: 25-57-7989Clealdlqhz A1c/Hemoglobin.total in TlgjdOWR3N [facility]: 40-82-1870Zwjwqrlf blood countHemoglobin/Hematocrit [facility]: 19-81-6489QDRXGIUIUL/HEMATOCRITHEMOGLOBIN/HEMATOCRIT [facility]: 21-91-1508Dptvakqls B screeningURINE ALBUMIN:CREATININE RATIOCleveland Clinic [facility] Hospitaltart: 15-95-9612Kazcciamt B surface antibody levelLDL CHOLESTEROLC[facility] Clinic Hill[facility] Hospitaltart: 82-64-7444GDJ Vaccine (1 - 1-dose 75+ series) RSV Vaccine (1 - 1-dose 75+ series)[facility]: 01-41-3292LTJBQSM DIRECTIVE DISCUSSIONADVANCE DIRECTIVE DISCUSSIONC[facility] Clinic [facility] Hospitaltart: 01-29-2022 End: 12-84-1124Jybpp metabolic 2000 panel - Serum or PlasmaBASIC METABOLIC PNL Lab Routine Orthostatic lightheadedness Expected: 01/29/2022, Expires: [address] [place] [address] Work Phone: Comment on above:Expected: 01/29/2022, Expires: 03/31/2022tart: 14-85-3366Xwzermzvz vaccinationINFLUENZA (#1)[facility] Start: 11-13-2021 End: 42-82-8447Agrsf metabolic 2000 panel - Serum or PlasmaBASIC METABOLIC PNL Lab Routine Orthostatic lightheadedness Expected: 11/13/2021, Expires: 2C[facility] Work Phone: Comment on above:Expected: 11/13/2021, Expires: 01/13/2022tart: 31-32-8811Wlfpsommak A1c/Hemoglobin.total in HiqjhNJN0W [facility]: 10-22-2021 End: 35-46-2542Ufhjy tocopherol [Mass/volume] in Serum or PlasmaVITAMIN E/TOCOPHEROL Lab Routine Resting tremor Expected: 10/22/2021, Expires: 12/22/2021[facility] Work Phone: Comment on above:Expected: 10/22/2021, Expires: 12/22/2021tart: 10-22-2021 End: 27-01-0088Izhsegxkztigb [Mass/volume] in Serum or PlasmaCERULOPLASMIN BLD Lab Routine Resting tremor Expected: 10/22/2021, Expires: 12/22/2021[facility] Work Phone: Comment on above:Expected: 10/22/2021, Expires: 12/22/2021tart: 10-22-2021 End: 37-01-3099Telfadrpu (Vitamin B12) [Mass/volume] in Serum or PlasmaVITAMIN B12 BLOOD Lab Routine Disturbance of skin sensation Expected: 10/22/2021, Expires: 12/22/2021[facility] Work Phone: Comment on above:Expected: 10/22/2021, Expires: 12/22/2021tart: 10-22-2021 End: 35-57-6056WCAQRYSRIZBCHA SCREEN, SERUMIMMUNOFIXATION SCREEN, SERUM Lab Routine Disturbance of skin sensation Expected: 10/22/2021, Expires: 12/22/2021 [facility] Work Phone: Comment on above:Expected: 10/22/2021, Expires: 12/22/2021tart: 10-22-2021 End: 60-54-7496EEQHV/PURI,FREE,SERKAPPA/PURI,FREE,SER Lab Routine Disturbance of skin sensation Expected: 10/22/2021, Expires: 12/22/2021[facility] Work Phone: [place] on above:Expected: 10/22/2021, Expires: 12/22/2021tart: 10-22-2021 End: 46-34-7904Qosepgdyrrlyqt [Moles/volume] in Serum or PlasmaMETHYLMALONIC ACID Lab Routine Disturbance of skin sensation Expected: 10/22/2021, Expires: 12/22/2021[facility] Work Phone: Comment on above:Expected: 10/22/2021, Expires: 12/22/2021tart: 13-46-5963JrumwdytwygTETYGFBNQRzwxboqme ClinicStart: 05-03-2021 COVID-19 VACCINE (5 - Booster)COVID-19 VACCINE (5 - Booster)[facility] Start: 73-08-3757VQLIBLP DIRECTIVE DISCUSSIONADVANCE DIRECTIVE DISCUSSION [facility]: 54-90-7414Twekfdbg screeningDilated Retinal ExamCleTrumbull Regional Medical Centertart: 47-56-7429Glotmkhyo C antibody, confirmatory testDILATED RETINAL EXAMCleveland Clinic [facility] Hospitaltart: 01-01-2014Medicare Annual Wellness VisitMedicare Annual Wellness VisitCleveland Clinic Hillcre[facility] Hospitaltart: 49-10-3804XEZTEWUD VACCINE (2 of 3) SHINGRIX VACCINE (2 of 3)[facility]: 29-66-5418TDGN DENSITYBONE DENSITYC[facility] Clinic [facility] Hospitaltart: 78-07-2158Dgin Density ScreeningBone Density ScreeningC[facility] Clinic Hillcre[facility] Hospitaltart: 63-21-0859FWFHCIXXK AGE 65 AND OVER WITH 5YR LOOKBACK (#1)PNEUMOVAX AGE 65 AND OVER WITH 5YR LOOKBACK (#1)[facility] Start: 61-61-1933Ekoxoflhu for osteoporosisBone Density ScreeningC[facility] Clinic Hill[facility] Hospitaltart: 47-21-4859Qiziomhln B Vaccine (1 of 3 - Risk 3-dose series) Hepatitis B Vaccine (1 of 3 - Risk 3-dose series)[facility]: 52-89-9394FEV Vaccine (1 - 1-dose 60+ series)RSV Vaccine (1 - 1-dose 60+ series) [facility]: 00-39-1880BKDVJIBFI (FIT-DNA)COLOGUARD (FIT-DNA)[facility]: 07-94-7809FjcdkjwhqfcYZPQUMBIHOTPgkpnmabk ClinicStart: 1992 COLORECTAL CANCER SCREENINGCOLORECTAL CANCER SCREENINGCleTrumbull Regional Medical Centertart: 96-64-9150BW COLONOGRAPHYCT COLONOGRAPHYCleTrumbull Regional Medical Centertart: 56-69-6589GFAZM OCCULT BLOODFECAL OCCULT BLOODC[facility] Hospitaltart: 61-60-7336AWKJOQTWNBPIS SIGMOIDOSCOPYC[facility] Hospitaltart: 73-88-9090Ydtib microalbumin profile [facility]: 85-50-3094NQKDMQ PCP TEAM CHRONIC DISEASE VISITANNUAL PCP TEAM CHRONIC DISEASE VISITCleveland Clinic Hillcrest Hospitaltart: 17-77-9018QFSRLFZTW C SCREENINGHEPATITIS C SCREENINGC[facility] Clinic [facility] Hospitaltart: 20-81-0968Uahawgbaf C screeningHepatitis C ScreeningC[facility] Clinic [facility] Hospitaltart: 19-95-9414Ktvmyikreytb Vaccine: 65+ (1 - PCV)Pneumococcal Vaccine: 65+ (1 - PCV)[facility]: [id number]: 65+ (1 - PCV)PNEUMOCOCCAL: 65+ (1 - PCV)[facility] Start: [id number] for malignant [facility] w/sw 24 hr+ rec scan miguel i&rAMBULATORY BP MONITORING Cardiology Routine Labile blood pressure Ordered: 07/[facility]2023[facility] [facility] Work Phone: Comment on above:Ordered: 07/26/2023ardiovascular function eval w/tilt table w/mntrTILT TABLE EVALUATION Cardiology Routine Labile blood pressure Near syncope Ordered: 06/13/2023[facility] Work Phone: Comment on above:Ordered: 06/13/2023omprehensive metabolic 2000 panel - Serum or PlasmaOhio[facility] End: 77-41-0609DKZ COMPLETEECG COMPLETE ECG Routine Dizziness 1 Occurrences starting 11/12/[address] [place] [address] Work Phone: Comment on above:1 Occurrences starting 11/12/2021 until 11/12/2022 End: 30-28-2020ZFB COMPLETEECG COMPLETE ECG Routine Dizziness 1 Occurrences starting 02/15/[address] [place] [address] Work Phone: Comment on above:1 Occurrences starting 02/15/2022 until 02/15/2023ECG COMPLETEECG COMPLETE ECG Routine Orthostatic lightheadedness POTS (postural orthostatic tachycardia syndrome) Palpitations Dizziness Mixed hyperlipidemia 1 Occurrences starting 08/03/2023[facility] Work Phone: Comment on above:1 Occurrences starting 08/03/2023 End: 06-51-3701GyqvivlxhszbcsxoMEOJ Cardiology Routine Labile blood pressure Near syncope 1 Occurrences starting 06/13/2023 until 06/12/2024[facility] Work Phone: Comment on above:1 Occurrences starting 06/13/2023 until 06/12/2024 End: 16-89-4435IfqoguumnldyydpxVQVR Cardiology Routine Orthostatic lightheadedness POTS (postural orthostatic tachycardia syndrome) Palpitations Dizziness Mixed hyperlipidemia 1 Occurrences starting 08/03/2023 until 08/02/2024[facility] Occurrences starting 08/03/2023 until 08/02/2024 End: 98-83-3237QYM(NEURO/NI)EMG(NEURO/NI) EMG Routine Left leg weakness Disturbance of skin sensation 1 Occurrences starting 07/26/2023 until 07/25/2024 [facility] Work Phone: Comment on above:1 Occurrences starting 07/26/2023 until 07/25/2024Glucose measurement estimated from glycated hemoglobinOhiohealth Grady Memorial HospitalGlucose measurement estimated from glycated hemoglobin [facility] HospitalHemoglobin A1c/Hemoglobin.total in [facility]/Hemoglobin.total in Blood [facility] End: 80-41-6904AQ Brain WO and W contrast IVMRI BRAIN WO/W IVCON Radiology Routine Labile blood pressure Abnormal saccadic eye movement Pursuitmovement deficiency Other symptoms and signs involving the nervous system 1 Occurrences starting 07/26/[address] [place] [address] Work Phone: Comayfd on above:1 Occurrences starting 07/26/2023 until 08/24/2024 End: 64-35-7755SO Brain WO and W contrast IVMRI BRAIN WO/W IVCON Radiology Routine Labile blood pressure Abnormal saccadic eye movement Pursuitmovement deficiency Other symptoms and signs involving the nervous system 1 Occurrences starting 11/02/[address] [place] [address] Work Phone: Comment on above:1 Occurrences starting 11/02/2023 until 12/01/2024 End: 25-26-6117MU Cervical spine WO contrastMRI CERVICAL SPINE WO IVCON Radiology Routine Spinal stenosis of cervical region Bilateral arm weakness 1 Occurrences starting 11/29/2023 until 12/28/2024[facility] ClinicComment [facility] above:1 Occurrences starting 11/29/2023 until 12/28/2024 End: 97-08-9823WV Lumbar spine WO contrastMRI LUMBAR SPINE WO IVCON Radiology Routine Spinal stenosis of lumbar region, unspecified whether neurogenic claudication present Lumbosacral spondylosis with radiculopathy 1 Occurrences starting 11/29/2023 until 12/28/2024[facility] ClinicComment on above:1 Occurrences starting 11/29/2023 until 12/28/2024Patient EducationWound Care ED Animal Bites [facility]Select [facility] Work Phone: Patient referralSelect Medical [facility] Work Phone: SKIN BIOPSY FOR NEUROPATHY/CNLSKIN BIOPSY FOR NEUROPATHY/CNL Procedures Routine Neurogenic orthostatic hypotension (HCC) Ordered:12/15/2023[facility] Work Phone: Comment on above:Ordered: 12/15/2023SPINE INTERVENTION PROCEDURESPINE INTERVENTION PROCEDURE Procedures Routine Spinal stenosis of lumbar region, unspecified whether neurogenic claudication present Lumbosacral spondylosis with radiculopathy Ordered: 01/16/2024[facility] Work Phone: Comment on above:Ordered: 01/16/2024SPINE INTERVENTION PROCEDURESPINE INTERVENTION PROCEDURE Procedures Routine Lumbosacral spondylosis with radiculopathy Spinal stenosis of lumbar region, unspecified whether neurogenic claudication present Ordered: 07/12/2024[facility] Work Phone: Comment on above:Ordered: 07/12/2024[facility] INTERVENTION PROCEDURESPINE INTERVENTION PROCEDURE Procedures Routine Trochanteric bursitis of right hip Lumbosacral spondylosis with radiculopathy Scoliosis, unspecified scoliosis type, unspecified spinal region Lumbosacral stenosis Ordered: [address] [place] [address] Work Phone: Comment on above:Ordered: 09/11/2024SPINE INTERVENTION PROCEDURESPINE INTERVENTION PROCEDURE Procedures Routine Spinal stenosis of lumbar region, unspecified whether neurogenic claudication present Ordered: [address] [place] [address] Work Phone: comment on above:Ordered: 09/27/2024Thyroglobulin Ab [Units/volume] in Serum or [facility] Thyroperoxidase Ab [Units/volume] in Serum or [facility] End: 79-00-6772KD Lumbar spine 3 ViewsXR LUMBAR GENERAL 3V AP/LAT/L5-S1 Radiology Routine Fall, initial encounter 1 Occurrences starting 03/01/[address] [place] [address] Work Phone: Comment on above:1 Occurrences starting 03/01/2024 until 03/31/2025 End: 64-31-6162EI Lumbar spine Views W flexion and W extensionXR LUMBAR MOTION 4V AP/LAT/ FLEX/EXT Radiology Routine Spinal stenosis of lumbar region, unspecified whether neurogenic claudication present Lumbosacral spondylosis with radiculopathy 1 Occurrences starting 11/29/[address] [place] [address] Work Phone: Comment on above:1 Occurrences starting 11/29/2023 until 12/28/2024XR Lumbar spine Views W flexion and W extensionXR LUMBAR MOTION 4V AP/LAT/ FLEX/EXT Radiology Routine Spinal stenosis of lumbar region, unspecified whether neurogenic claudication present Lumbosacral spondylosis with radiculopathy 11/29/2023 2:28PM [facility] End: 93-32-3753EY Pelvis and Hip - right AP and Lateral frogXR HIP GENERAL 3V PELV/AP/LAT RIGHT Radiology Routine Fall, initial encounter 1 Occurrences starting 03/01/[address] [place], [place] [address]Comment on above:1 Occurrences starting 03/01/[address] [place] [address] Immunizations Immunization DateImmunizationNotesCare JmljlpdwCaorxphi06-13-9620ENOQJ-24 (PFIZER) 12Y and olderOhiohealth [facility]ady [facility] Hospital09-20-2024 influenza virus vaccine, unspecified formulationGregWorkana [facility]09-20-2024influenza, high dose seasonal, preservative-freeOhiohealth Grady Memorial Hospital03-08-2024tetanus toxoid, reduced diphtheria toxoid, and acellular pertussis vaccine, adsorbedDO Erich Gillis Work Phone: [facility]01-02-2024Fluzone QIV High-Dose 65YR+[facility]01-02-2024influenza virus vaccine, unspecified formulationGregWorkana [facility]03-17-2023COVID-19 Pfizer (bivalent)Erich Gillis Other [facility] [place] 686542-05-2022influenza, seasonal, injectableBrett Carlin Other [facility]12-05-2022Fluzone QIV High-Dose 65YR+[facility]12-05-2022pneumococcal polysaccharide vaccine, 23 valentBredrew Gillis Other [facility] [place] 686542-05-2022influenza virus vaccine, unspecified formulationSjaida Penaloza MD Work Phone: [facility] [place] 686541-28-2021COVID-19 mRNA, Comirnaty (Pfizer)DO Erich Gillis Work Phone: [facility]10-28-2021SARS-CoV-2 (COVID-19) mRNA BNT-162b2 vaxDuolingo [facility] [place] 686540-16-2021COVID-19 vaccine, age 12+ yr (PFIZER-BIONTECH - PURPLE TOP) Carl Norwood DO Work Phone: [facility] HealthEgtujr14-49-3886Tfduvuk QIV High-Dose 65YR+ [facility]08-30-2021influenza virus vaccine, unspecified formulationGregWorkana [facility]08-30-2021zoster vaccine recombinantGregory GlobalLab [facility]-10-2021zoster vaccine recombinantColleen Calvey Other [facility]03-02-2021COVID-19 Vaccine Pfizer - Documentation Purposes OnlyColleen Calvey Other [facility] HealthComment on above:Result Comment: 2022-01-12: [id number]-06 Vaccine Pfizer - Documentation Purposes Only Merary Calvey Other [facility] HospitalComment on above: Result Comment: 2022-01-12: [id number]-75 vaccine, age 12+ yr (PFIZER- BIONTECH - PURPLE TOP)Carl Cuco DO Work Phone: [facility] HealthUmftxr32-31-9295vuofiokcb virus vaccine, unspecified formulationGregRhone Apparel [facility]08-23-2020influenza, injectable, quadrivalent, preservative free [facility]08-23-2020influenza, seasonal, injectable Merary Calvey Other [facility]08-23-2020 pneumococcal conjugate vaccine, 13 valentColleen Calvey Other [facility]10-26-2019influenza, seasonal, injectableColleen Calvey Other [facility]10-26-2019influenza virus vaccine, unspecified formulationGregory GlobalLab [facility] [place] 686540-26-2019Seasonal trivalent influenza vaccine, adjuvanted, preservative freeRobert Parkmobile DO Work Phone: [facility] HealthGurvbf66-01-0485peppqmwjw virus vaccine, unspecified formulationGregory GlobalLab [facility]08-23-2018Seasonal trivalent influenza vaccine, adjuvanted, preservative freeRobert Parkmobile DO Work Phone: [facility] HealthCiihme42-19-0727axvdqxbjl, seasonal, injectableColleen Calvey Other [facility]12-06-2016influenza, injectable, quadrivalent, preservative freeColleen Calvey Other [facility]12-20-2014influenza virus vaccine, unspecified formulationGregory [employer] [facility]-20-2014influenza, high dose seasonal, preservative-freeColleen Calvey Other [facility] HealthTgzgwt43-19-4726yaspeh vaccine, liveColleen Calvey Other [facility] Payers DatePayer CategoryPayerPolicy [id number] MEDICARE A AND B [id number] 2013-[facility] [phone] [facility] [place] [address] [id number] 2014Medicare [id number]1-3048Mzwaiyo Health InsuranceMUTPROVIDENCE CITY H[facility] .[id number]9439-21-2606PcwzsnxRDSGWM [facility] MEDICARE SUPPLEMENT [id number] 2013-Present [phone] [place] [id number] 1.2.840.158164.1.13.159.2.7.3.286431.40042-36-0741Emvnngt 1.2.840.615725.1.13.159.2.7.3.202631.315 [id number] 2..3.91862[id number] 2..4.626249.9230-02-1948 [id number] 2..1.266699.3.57[id number] 2.0.1.921883.3.57[id number] 2.0.1.839321.3.579.2.[id number] 2.160.1.487179.3.579.[id number] 2.0.1.790980.3.579.2.[id number] 2.0.1.390080.3.579.[id number] 2.0.1.853015.3.57[id number] 2.0.1.991930.3.579.2.30049-02-6694Nznqbqd40329567 2..1.052386.3.579.2.19589-03-0876Rhgvrrn21909703 2..1.606918.3.579.2.82[id number] 2..1.260506.3.579.2.52839-62-1998Woxmybs11892827 2..1.073052.3.579.2.62971-27-9016Vzurvtc85342866 2..1.802938.3.579.[id number] 2..1.379846.3.579.[id number] 2..1.693907.3.57[id number] 2.0.1.402809.3.579.2.77990-79-8085Tfpbjyr98116910 2.0.1.849269.3.579.[id number] 2.16.840.1.735725.3.579.[id number] 2.16.840.1.196944.3.579.2.50682-33-3231Fnbmnef10295647 2.16.840.1.251664.3.579.2.38102-52-0005Veqmrfq16736361 2.16.840.1.095910.3.579.2.74326-54-8080Jaqaznd02033251 2.16.840.1.720356.3.579.2.24748-66-9319Ofeancd46237428 2.16.840.1.1[id number] 2619e856-42sa-9a29-2y18-5i61196q38l2Nzgqaff91719955 2.16.840.1.237885.3.579.2.338Rarljrd43056055 2.16.840.1.823941.3.579.2.531 Jxnhyhx92355313 2.16.840.1.893813.3.579.2.462Ywqjvhu54011659 2.16.840.1.146013.3.579.2.531 Social History DateTypeDetailFacilityStart: 03-27-2020 End: 80-36-8105Nzlvlqd smoking statusNever smoked tobacco (finding)[facility] [employer] Other Start: 08-03-2022 End: 90-07-8046Mim Assigned At [facility] [employer] Other Start: 05-21-2021 End: 51-53-1083Uunnslu intakeEx-drinker (finding)[facility]: 85-10-8988Geb [facility]: 09-06-2021 End: 17-41-4199Zzkxkyhu to SARS-CoV-2 (event)Unable to assessWilson Health Start: 10-12-2021 End: 60-97-7474Kwroaoej to SARS-CoV-2 (event)Not sureCleveland Clinic Hillcrest Hospitaltart: 06-03-2011 End: 12-87-7678Hfmkeqv use and exposureSmokeless tobacco non-userCleveland Clinic Hillcrest Hospitaltart: 08-03-2022 End: 79-32-4635Vupsopq of Social functionWilson HealthAdult Depression Screening Quankmelrk7Dporxfuhj ClinicStart: 98-48-3963Lczlzl identityIdentifies as female gender (finding)[facility] Hospitaltart: 33-88-3215Dkhkil orientation Heterosexual (finding)[facility] Hospitaltart: 03-92-7827Iymsfaa intakeLifetime non-drinker (finding)[facility] HealthcareStart: 06-63-3148Fzjnaaz Commentcaffeine 1-2 cups/dayMOUNTAIN WEST MEDICAL CENTER HealthcareStart: 29-01-3475Ydy Assigned At BirthNot on fileMOUNTAIN WEST MEDICAL CENTER HealthcareStart: 07-23-2009 End: 68-12-6531GunGzhmag (finding)[facility] Hospitalexual OrientationExec[facility] Medical Equipment Procedure CodeEquipment CodeEquipment Original TextEquipment IdentifierDates TrapeziectomyOrthopaedic bone staple, non-adjustable, sterile ()[id number] FDAStart: 16-96-3848Foemcsqgxueiq Orthopaedic bone staple, non-adjustable, sterile ()[id number] FDAStart: 04-28-3900Mplsmynwweucv Orthopaedic bone screw, non-bioabsorbable, non-sterile()[id number] [facility] Start: 60-46-3656Upafmjopb 32mm Tritanium 10mm Patellar Asymmetric - [id number]_impStart: 27-59-5938Ofuubi Triathlon 4 X3 9mm Tibial Condylar Stabilized Knee - [id number]_hjvWjnqv: 26-97-8120Cptzuejxg Triathalon 4 Tritanium Tibial Coated Sterile Knee - [id number]_xcnRhcmq: 26-98-6508Xcefucqwp Triathlon 4 Pa Femoral Cruciate Retain Bead Knee Left - [id number]_ubj Start: 91-77-03646729616990, [id number], [id number], [id number], [id number], [id number], [id number], [id number], [id number], [id number]: 04-13-2019 End: 05-71-6240Yklsedw on above:To inject weeklyUse as instructed to check blood glucose dailyUse as instructed to check blood sugar dailyUse as instructed to check blood glucose daily. Dx: E11.49 not on insulinUse as instructed to check blood sugar daily. Dx: E11.49 not on insulin Goals DatePatient GoalDesired Activity/StatePersonal health goal Functional Status HiwjIujpdattqnEdjghsGzojtjem55-56-8979Cmeaxtqlhd StatusN/AExec[facility] of [facility]10-28-2024Functional StatusN/A[facility]07-12-2024Functional StatusN/A [facility]06-10-2024Functional StatusN/[facility]05-07-2024Functional StatusN/[facility] 24-38-0668Cbancqxjhx StatusN/A[facility]03-15-2024Functional StatusN/[facility]02-28-2024 Functional StatusN/[facility]02-09-2024Functional StatusN/A [facility]01-10-2024Functional StatusN/[facility]11-27-2023Functional StatusN/[facility] 76-59-5609Jimcmcsjjf StatusN/[facility]08-29-2023Functional StatusN/[facility]07-31-2023Functional StatusN/[facility]07-18-2023Functional StatusN/[facility] 55-83-4153Vdgupquloc StatusN/[facility]10-04-2022Functional StatusN/A[facility] Nwwnnkuh32-39-1226 Functional StatusN/[facility]04-15-2015Are you deaf, or do you have serious difficulty hearingNoWilson HealthSoqusz66-82-7334Qlr you blind, or do you have serious difficulty seeing, even when wearing glassesNoWilson HealthYkqbhr76-79-2841Wq you have serious difficulty walking or climbing stairsSelect Medical [facility]04-15-2015Do you have difficulty dressing or bathingMount St. Mary HospitalTtnzji48-70-8606Uygjiqz of a physical, mental, or emotional condition, do you have difficulty doing errands alone such as visiting a physician's office or shoppingMount St. Mary Hospital Mental Status RjyaDnhfurmvjmAvtcdtSmvapxqh38-06-3242Ixxrhfz of a physical, mental, or emotional condition, do you have serious difficulty concentrating, remembering, or making decisionsMount St. [facility] Clinical Notes 12-15-2004 to 02-12-2025 Note Date & LqucNbcfKjbnhlqx18-89-5834 Hospital Discharge instructions Patient Education 02/12/2025 09:36:54 Urethral Dilation Urethral Dilation Urethral dilation is a procedure to stretch open (dilate) the urethra. The urethra is the tube thatdrains pee (urine) from the bladder out of the body. In females, the urethra opens above the vaginal opening. In males, the urethra opens at the tip of the penis. Urethral dilation is usually done to treat narrowing of the urethra (urethral stricture), which canmake it difficult to pee (urinate). Urethral strictures can be caused by scar tissue, infection, injury, or surgery. Urethral dilation widens the urethra so that you can pee normally. Urethral dilation is done through the opening of the urethra. There are no incisions made during the procedure. Tell a health care provider about: Any allergies you have. All medicines you are taking, including vitamins, herbs, eye drops, creams, and hiup-dda-rbafwpp medicines. Any problems you or family members have had with anesthesia. Any bleeding problems you have. Any surgeries you have had. Any medical conditions you have. Whether you are or may be . What are the risks? Your health care provider will talk with you about risks. These may include: Bleeding. Infection. A return of urethral stricture, which requires repeating the dilation procedure or more surgery. Damage to the urethra, which may require reconstructive surgery. Allergic reactions to medicines. What happens before the procedure? Medicines Ask your provider about: Changing or stopping your regular medicines. These include any diabetes medicines or blood thinnersyou take. Taking medicines such as aspirin and ibuprofen. These medicines can thin your blood. Do not take them unless your provider tells you to. Taking mdez-efb-tbrwvak medicines, vitamins, herbs, and supplements. General instructions Follow instructions from your provider about what you may eat and drink. If you will be going home right after the procedure, plan to have a responsible adult: ?Take you home from the hospital or clinic. You will not be allowed to drive. ?Care for you for the time you are told. Ask your provider: ?How your surgery site will be marked. ?What steps will be taken to help prevent infection. These steps may include: ?Removing hair at the surgery site. ?Washing skin with a soap that kills germs. ?Taking antibiotics. What happens during the procedure? An IV may be inserted into one of your veins. You may be given: ?A local anesthetic to numb your urethral opening. This will be applied as a gel that will also lubricate the opening of the urethra. ?A sedative. This helps you relax. ?Anesthesia. This keeps you from feeling pain. It will make you fall asleep for surgery. A thin tube with a light and camera on the end (cystoscope) will be inserted into your urethra. Your urethra will be rinsed (irrigated) with a germ-free (sterile) water solution. Narrow parts of your urethra will be stretched open using a dilator tool. Your surgeon will start with a very thin dilator, then use wider dilators as needed. A thin tube with an inflatable balloon on the tip may be inserted into your urethra. The balloon may be inflated to help stretch your urethra open. The balloon may be coated with a medicine to help the urethra stay open longer. Your urethra will be irrigated. A catheter will be inserted into your bladder at the end of the procedure. The procedure may vary among providers and hospitals. What happens after the procedure? After the procedure, it is common to have: ?Burning pain when peeing. ?Blood in your pee. ?A need to pee frequently. You will be asked to pee before you leave the hospital or clinic. Your pee flow should improve within a few days. You may have a catheter in your bladder for 2 3 days following your procedure. Follow these instructions at home: Medicines Take mfyx-rha-joznhke and prescription medicines only as told by your provider. If you were prescribed antibiotics, take them as told by your provider. Do not stop using the antibiotic even if you start to feel better. Ask your provider if the medicine prescribed to you: ?Requires you to avoid driving or using machinery. ?Can cause constipation. You may need to take these actions to prevent or treat constipation: ?Take nykb-vtm-wwbypiq or prescription medicines. ?Eat foods that are high in fiber, such as beans, whole grains, and fresh fruits and vegetables. ?Limit foods that are high in fat and processed sugars, such as fried or sweet foods. General instructions If you were given a sedative during the procedure, it can affect you for several hours. Do not drive or operate machinery until your provider says that it is safe. If you were sent home with a soft tube (catheter) to help keep your urethra open, follow your provider's instructions about how and when to use it. Drink enough fluid to keep your pee pale yellow. Return to your normal activities as told by your provider. Ask your provider what activities are safe for you. Keep all follow-up visits. Your provider will check your healing and adjust your treatment plan as needed. Contact a health care provider if: Your pee is cloudy and smells bad. You develop new bleeding when you pee. You pass blood clots when you pee. You have pain that does not get better with medicine. You have a fever. Your genital area is swollen, bruised, or discolored. This includes: ?The penis, scrotum, and inner thighs for males. ?The outer genital organs (vulva) and inner thighs for females. Get help right away if: You develop new bleeding that does not stop. You cannot pee. Your catheter stops draining pee. You cannot pee after your catheter is removed. These symptoms may be an emergency. Get help right away. Call 911. Do not wait to see if the symptoms will go away. Do not drive yourself to the hospital. This information is not intended to replace advice given to you by your health care provider. Make sure you discuss any questions you have with your health care provider. Document Revised: 01/20/2023 Document Reviewed: 01/20/2023 [employer] Patient Education 2023 [employer]. Follow Up Care 08/21/2024 10:23:37 With:HIRO RBICENO, Ryan Holland, URL Address: [address] [address]- When: Unknown [facility] [place] [id number] NotePatient Education Urology Urethral Dilation Urethral dilation is a procedure to stretch open (dilate) the urethra. The urethra is the tube thatdrains pee (urine) from the bladder out of the body. In females, the urethra opens above the vaginal opening. In males, the urethra opens at the tip of the penis. Urethral dilation is usually done to treat narrowing of the urethra (urethral stricture), which canmake it difficult to pee (urinate). Urethral strictures can be caused by scar tissue, infection, injury, or surgery. Urethral dilation widens the urethra so that you can pee normally. Urethral dilation is done through the opening of the urethra. There are no incisions made during the procedure. Tell a health care provider about: ??? Any allergies you have. ??? All medicines you are taking, including vitamins, herbs, eye drops, creams, and mtxr-xlq-hxeibzi medicines. ??? Any problems you or family members have had with anesthesia. ??? Any bleeding problems you have. ??? Any surgeries you have had. ??? Any medical conditions you have. ??? Whether you are or may be . What are the risks? Your health care provider will talk with you about risks. These may include: ??? Bleeding. ??? Infection. ??? A return of urethral stricture, which requires repeating the dilation procedure or more surgery. ??? Damage to the urethra, which may require reconstructive surgery. ??? Allergic reactions to medicines. What happens before the procedure? Medicines Ask your provider about: ??? Changing or stopping your regular medicines. These include any diabetes medicines or blood thinners you take. ??? Taking medicines such as aspirin and ibuprofen. These medicines can thin your blood. Do not take them unless your provider tells you to. ??? Taking zgoa-uej-nrdnisw medicines, vitamins, herbs, and supplements. General instructions ??? Follow instructions from your provider about what you may eat and drink. ??? If you will be going home right after the procedure, plan to have a responsible adult: ? Take you home from the hospital or clinic. You will not be allowed to drive. ? Care for you for the time you are told. ??? Ask your provider: ? How your surgery site will be marked. ? What steps will be taken to help prevent infection. These steps may include: ? Removing hair at the surgery site. ? Washing skin with a soap that kills germs. ? Taking antibiotics. What happens during the procedure? An IV may be inserted into one of your veins. ??? You may be given: ? A local anesthetic to numb your urethral opening. This will be applied as a gel that will also lubricate the opening of the urethra. ? A sedative. This helps you relax. ? Anesthesia. This keeps you from feeling pain. It will make you fall asleep for surgery. ??? A thin tube with a light and camera on the end (cystoscope) will be inserted into your urethra. ??? Your urethra will be rinsed (irrigated) with a germ-free (sterile) water solution. ??? Narrow parts of your urethra will be stretched open using a dilator tool. Your surgeon will start with a very thin dilator, then use wider dilators as needed. ??? A thin tube with an inflatable balloon on the tip may be inserted into your urethra. The balloon may be inflated to help stretch your urethra open. The balloon may be coated with a medicine to help the urethra stay open longer. ??? Your urethra will be irrigated. ??? A catheter will be inserted into your bladder at the end of the procedure. The procedure may vary among providers and hospitals. What happens after the procedure? After the procedure, it is common to have: ? Burning pain when peeing. ? Blood in your pee. ? A need to pee frequently. ??? You will be asked to pee before you leave the hospital or clinic. ??? Your pee flow should improve within a few days. ??? You may have a catheter in your bladder for 2?3 days following your procedure. Follow these instructions at home: Medicines ??? Take uwjz-dyf-bbrcegq and prescription medicines only as told by your provider. ??? If you were prescribed antibiotics, take them as told by your provider. Do not stop using the antibiotic even if you start to feel better. ??? Ask your provider if the medicine prescribed to you: ? Requires you to avoid driving or using machinery. ? Can cause constipation. You may need to take these actions to prevent or treat constipation: ? Take bkjj-kfa-hwdnciq or prescription medicines. ? Eat foods that are high in fiber, such as beans, whole grains, and fresh fruits and vegetables. ? Limit foods that are high in fat and processed sugars, such as fried or sweet foods. General instructions ??? If you were given a sedative during the procedure, it can affect you for several hours. Do not drive or operate machinery until your provider says that it is safe. ??? If you were sent home with a soft tube (catheter) (more content not included)...[facility]10-10-2025 NoteHNO ID: [id number] Author: MILI HANDY LPN Service: ? Author Type: Licensed Nurse Type: Progress Notes Filed: 01/18/2025 12:40 Note Text: Patient consents to the use of AI technology during visit.[facility]10-10-2025 NoteHNO ID: [id number] Author: KARL COOK APRN.JUAN ANTONIO Service: ? Author Type: Nurse Practitioner Type: Progress Notes Filed: 01/18/2025 12:40 Note Text: Endocrinology Follow-up Recording using ambient AI software for draft documentation of the visit was discussed with the patient/authorized physician relations representative; all questions welcomed and answered. Patient/authorized physician relations representative agreed to proceed History of Present Illness Hola Douglas is a 79 year old female presents today for follow up of DM Type 2. LV with Dr Oneill 08/21/24- Mounjaro was increased to 10 mg She reports worsening constipation and no weight loss. Had steroid injections in October Had cataract surgery this summer Hola Douglas is a 79-year-old female with a history of type 2 diabetes mellitus and neuropathy, presenting for follow-up on diabetes management and back pain. Type 2 Diabetes Mellitus: - Current medication: Mounjaro 10 mg. - Recent increase to [address] Melgar to aid weight loss; Hola requests reduction due to lack of weight loss and worsening constipation. - Reports severe constipation despite using multiple treatments. - Previously on Ozempic; prefers to continue Mounjaro. - Blood glucose levels in the mornins-170s mg/dL. - Denies hypoglycemic symptoms. - Recent A1c: 6.2%. - No recent changes in diet or exercise. - Recent cataract surgery with follow-up eye exam this summer. Neuropathy: - Current medications: Lyrica and Cymbalta. Back Pain: - Chronic back pain with sciatica radiating to the knee. - Recent steroid injection in October by Dr. Mcnair provided no relief. - Pain limits mobility, including walking and grocery shopping. - Uses Biofreeze for pain management. - Reports waking up every hour after 3 hours of sleep due to pain. - Denies desire for surgery. PMH significant for: PAST MEDICAL HISTORY Diagnosis Date Carpal tunnel syndrome Diverticulosis of colon (without mention of hemorrhage) Hypotension Localized osteoarthrosis not specified whether primary or secondary, hand Mastodynia Other chronic sinusitis Type II or unspecified type diabetes mellitus without mention of complication, uncontrolled Vertigo Current workup Date of Diagnosis: age 61 Last HbA1c: Hemoglobin A1C (%) Date Value 11/28/2024 6.2 07/23/2024 6.4 05/11/2024 6.5 10/06/2023 6.7 05/20/2023 7.0 2021 6.7 10/24/2020 6.7 05/01/2020 6.4 10/18/2019 6.4 04/06/2019 6.3 Hemoglobin A1C (POCT) (%) Date Value 01/19/2024 6.8 Complications Microvascular: neuropathy, CKD stage 3 Macrovascular: none Health Maintenance Topics Topic Date Due Dilated Retinal Exam 07/04/2024 Physical Activity: limited Diet: no specific regimen; eats 3 meals per day SMBG Frequency of Monitoring:daily in the morning BG Values: AM fasting 173 mg/dL 150s typically Hypoglycemia Frequency: denies Current DM Related Medications: Current Medications 01/18/2025 DIABETES THERAPIES Medication Dosage Pharm Subclass tirzepatide (MOUNJARO) 10 mg/0.5 mL pen injector Inject 10 mg subcutaneously one time a week. Antihyperglycemic - Dual GIP and GLP-1 Receptor Agonists CARDIOVASCULAR Medication Dosage Pharm Subclass pravastatin (PRAVACHOL) 10 mg tablet Take 1 tablet by mouth once daily. Antihyperlipidemic - HMG CoA Reductase Inhibitors (statins) OTHER Medication Dosage Pharm Subclass blood sugar diagnostic (TRUE METRIX GLUCOSE TEST STRIP) test strip Use with blood glucose test once daily Medical Supplies and DME - Blood Glucose Tests Blood-Glucose Meter (TRUE METRIX GLUCOSE METER) 1 Each once daily. Medical Supplies and DME - Glucose Monitoring Test Supplies calcium carbonate 600 mg-cholecalciferol 200 units (CALCIUM 600 + D,3,) 600 mg(1,500mg) -200 unit tab Take 1 tablet by mouth once daily. Minerals and Electrolytes - Calcium Replacement/Vitamin D Combinations citalopram (CELEXA) 20 mg tablet Take 1 tablet by mouth once daily. Antidepressant - Selective Serotonin Reuptake Inhibitors (SSRIs) clonazePAM (KLONOPIN) 0.5 mg tablet Take 1 tablet by mouth as needed. For restless leg syndrome Antianxiety Agent - Benzodiazepines DULoxetine (CYMBALTA) 30 mg capsule Take 1 capsule by mouth once daily. Antidepressant - Serotonin-Norepinephrine Reuptake Inhibitors (SNRIs) ergocalciferol 50,000 unit capsule (VITAMIN D2, DRISDOL) TAKE 1 CAPSULE ONE TIME WEEKLY Vitamins - D Derivatives fludrocortisone (FLORINEF) 0.1 mg tablet Take 2 tablets by mouth once daily. Mineralocorticoids fluticasone (FLONASE) 50 mcg/actuation nasal spray Use 2 Sprays in each nostril twice daily. Nasal Corticosteroids lancets (TRUEPLUS LANCETS) 33 gauge Use with blood glucose test once daily Medical Supplies and DME - Glucose Monitoring Test Supplies loratadine (CLARITIN) 10 mg tablet Take 10 mg by mouth once daily. Antihistamines - 2nd Generation MULTIVITAMIN (MULTI-DAY ORAL) Take by mouth once daily. Mult (more content not included)...[facility]10-01-2025 NoteHNO ID: [id number] Author: FARZANA MORROW RD Service: ? Author Type: Registered Dietitian Type: Progress Notes Filed: 01/09/2025 14:49 Note Text: [facility] Nutritional Assessment Patient states reason for visit: Diabetes/ Weight Management:Follow Up Lab Results Component Value Date HBA1C 6.2 11/28/2024 HBA1C 6.4 07/23/2024 HBA1C 6.5 05/11/2024 HBA1C 6.8 01/19/2024 HBA1C 6.7 2021 HBA1C 6.7 10/24/2020 HBA1C 6.4 05/01/2020 DEMOGRAPHICS: NUTRITION THERAPY Co-Morbidities: PAST MEDICAL HISTORY Diagnosis Date Carpal tunnel syndrome Diverticulosis of colon (without mention of hemorrhage) Hypotension Localized osteoarthrosis not specified whether primary or secondary, hand Mastodynia Other chronic sinusitis Type II or unspecified type diabetes mellitus without mention of complication, uncontrolled Vertigo Current workup Current Weight Management Program: None Activity: Do you do a regular exercise? Very limited d/t lower back injury Symptoms: Patient's symptoms are as follows: Weight Concerns: weight gain and failure to lose weight How many hours of sleep on average? 7+ Diet History: Food log/recall reviewed today Lunch: fruit + Yoplait vanilla yogurt + small piece bread + PB Dinner: homemade casserole (beef + noodles + tomato soup + cream of mushroom soup); meat + starch + salad (with hard boiled eggs and cheese) Fluids/Drinks: 2-3x sparkling ICE drink Who Cooks: Self and Spouse Who Shops: Self and Spouse Food Dislikes: almost all vegetables (lettuce is ok) Allergies: No Food Allergy Medications: Current Outpatient Medications Medication Sig fludrocortisone (FLORINEF) 0.1 mg tablet Take 2 tablets by mouth once daily. tirzepatide (MOUNJARO) 10 mg/0.5 mL pen injector Inject 10 mg subcutaneously one time a week. citalopram (CELEXA) 20 mg tablet Take 1 tablet by mouth once daily. DULoxetine (CYMBALTA) 30 mg capsule Take 1 capsule by mouth once daily. tobramycin (TOBREX) 0.3 % ophthalmic solution Use 1 drop in the right eye as directed. pregabalin (LYRICA) 150 mg capsule Take 1 capsule by mouth two times a day. lancets (TRUEPLUS LANCETS) 33 gauge Use with blood glucose test once daily pravastatin (PRAVACHOL) 10 mg tablet Take 1 tablet by mouth once daily. blood sugar diagnostic (TRUE METRIX GLUCOSE TEST STRIP) test strip Use with blood glucose test once daily Blood-Glucose Meter (TRUE METRIX GLUCOSE METER) 1 Each once daily. ergocalciferol 50,000 unit capsule (VITAMIN D2, DRISDOL) TAKE 1 CAPSULE ONE TIME WEEKLY clonazePAM (KLONOPIN) 0.5 mg tablet Take 1 tablet by mouth as needed. For restless leg syndrome loratadine (CLARITIN) 10 mg tablet Take 10 mg by mouth once daily. fluticasone (FLONASE) 50 mcg/actuation nasal spray Use 2 Sprays in each nostril twice daily. pen needle, diabetic (COMFORT EZ PEN NEEDLES) 33 gauge x 5/16 ndle To inject weekly MULTIVITAMIN (MULTI-DAY ORAL) Take by mouth once daily. calcium carbonate 600 mg-cholecalciferol 200 units (CALCIUM 600 + D,3,) 600 mg(1,500mg) -200 unit tab Take 1 tablet by mouth once daily. No current facility-administered medications for this visit. ANTHROPOMETRICS Height: Last 1 Encounter Ht Readings: Date: Ht: 09/11/2024 172.7 cm (5' 8 ) Current weight: Last 1 Encounter Wt Readings: Date: Wt: 09/11/2024 86.2 kg (190 lb) 03/20/2024 81.6 kg (180 lb) 12/15/2023 82.8 kg (182 lb 8.7 oz) 08/03/2023 78.9 kg (174 lb) 07/26/2023 83 kg (183 lb) 06/23/2023 81.5 kg (179 lb 10.8 oz) BMI: 28.89 kg/(m2) READINESS TO LEARN Cognitive ability: Alert and oriented Motivation to learn: Eager Interested Family support: Unable to assess - Family not present Instruction provided to: Patient Patient learns best by: Multiple Methods Factors affecting learning: None Physical limitations affecting learning: None Stage of Change: Contemplation NUTRITION ASSESSMENT: Nutrition Diagnosis: Has not changed since previous diagnosis Nutrition Prescription: Calories Needed for Current Weight: Resting Metabolic Rate: 1400 Nutrition Intervention: -Diabetes Pathophysiology: insulin resistance and progression of Type 2 -Monitoring: A1c meaning and target <7% and BG targets -Healthy Eating: impact of carbs on BG, Plate Method, and foods with carbs -Medications: medication safety/timing, medication side effects, and reviewed home DM meds -Physical Activity: benefits of exercise, impact of exercise on BG, and types of exercise -Chronic Complications: LT complications and importance of BG control to reduce risks Education Materials: None Nutrition Monitoring AND Evaluation: Dietitian Goals: Maintained OR Improved Blood Glucose Control by next A1C test Criteria: A1C Patient Centered Goals: Patient Stated Goals at last Visit (Met/Not Met/Partially Met): 1. Increase exercise as able (discussed chair-exercises with small du (more content not included)...[facility]10-01-2025 NoteEducation (ENDAV3) OHLA DOUGLAS ([id number]) 1945 F Date Time Provider Department 01/09/25 2:00 PM FARZANA MORROW3 Reason for Visit: Medical Nutrition Therapy [1698] Cmt: Diabetes/ Weight management follow-up Primary Visit Diagnosis:Type 2 diabetes mellitus with stage 3a chronic kidney disease, without long-term current use of insulin (HCC) [E11.22, N18.31] Other Visit Diagnoses:Stage 3a chronic kidney disease (HCC) [N18.31] Overweight (BMI 25.0-29.9) [E66.3] BMI 28.0-28.9,adult [Z68.28] During your visit today, we recorded the following information about you: Allergies As of Date: 01/09/2025 Noted Allergy Reaction ASA (SALICYLATES) 12/17/2004 Comments: causes platelet disfunction ASPIRIN 08/28/2018 16 - Unknown 14 - Other: See Comments LEVAQUIN (LEVOFLOXACIN) 12/29/2017 2 - Rash 14 - Other: See Comments Comments: Per pt feels like she on fire AVELOX (MOXIFLOXACIN HCL) 06/03/2011 5 - Intolerance Comments: C/O burning feeling on skin Date Reviewed: 10/09/2024 Reviewed by: Yane Hodgson, JEN - Fully Assessed Prescriptions as of 01/09/2025 - fludrocortisone (FLORINEF) 0.1 mg tablet Take 2 tablets by mouth once daily. - tirzepatide (MOUNJARO) 10 mg/0.5 mL pen injector Inject 10 mg subcutaneously one time a week. - citalopram (CELEXA) 20 mg tablet Take 1 tablet by mouth once daily. - DULoxetine (CYMBALTA) 30 mg capsule Take 1 capsule by mouth once daily. - tobramycin (TOBREX) 0.3 % ophthalmic solution Use 1 drop in the right eye as directed. - pregabalin (LYRICA) 150 mg capsule Take 1 capsule by mouth two times a day. - lancets (TRUEPLUS LANCETS) 33 gauge Use with blood glucose test once daily - pravastatin (PRAVACHOL) 10 mg tablet Take 1 tablet by mouth once daily. - blood sugar diagnostic (TRUE METRIX GLUCOSE TEST STRIP) test strip Use with blood glucose test once daily - Blood-Glucose Meter (TRUE METRIX GLUCOSE METER) 1 Each once daily. - ergocalciferol 50,000 unit capsule (VITAMIN D2, DRISDOL) TAKE 1 CAPSULE ONE TIME WEEKLY - clonazePAM (KLONOPIN) 0.5 mg tablet Take 1 tablet by mouth as needed. For restless leg syndrome - loratadine (CLARITIN) 10 mg tablet Take 10 mg by mouth once daily. - fluticasone (FLONASE) 50 mcg/actuation nasal spray Use 2 Sprays in each nostril twice daily. - pen needle, diabetic (COMFORT EZ PEN NEEDLES) 33 gauge x 5/16 ndle To inject weekly - MULTIVITAMIN (MULTI-DAY ORAL) Take by mouth once daily. - calcium carbonate 600 mg-cholecalciferol 200 units (CALCIUM 600 + D,3,) 600 mg(1,500mg) -200 unit tab Take 1 tablet by mouth once daily. Encounter Status:Closed by FARZANA MORROW on 01/09/25[facility] 11-13-2024 Telephone encounter Note* Telephone Encounter - Mone Parekh MA - 11/13/2024 8:23 AM EDT November 13, 2024 8:23 AM Last encounter Visit on 08/21/2024 (with Lorraine Oneill) Hola Douglas called regarding labs. Patient states is at lab now and would like to get her labs drawn but it has an expected by date of 02/2025. She would like to have that removed so she can have them drawn noah. She can be reached at [phone]. Mone Parekh [employer] Maintenance Manager Endocrinology & Metabolism [facility] F20 & X20 [facility]08-05-2025 Miscellaneous Notes* Telephone Encounter - Mone Parekh MA - 11/13/2024 8:23 AM EDT November 13, 2024 8:23 AM Last encounter Visit on 08/21/2024 (with Lorraine Oneill) Hola Douglas called regarding labs. Patient states is at lab now and would like to get her labs drawn but it has an expected by date of 02/2025. She would like to have that removed so she can have them drawn noah. She can be reached at [phone]. Mone Parekh [employer] Maintenance Manager II Endocrinology & Metabolism [facility] F20 & X20 documented in this encounterWilson Health07-18-2025 Telephone encounter Note * Telephone Encounter - Jefry Raphael RN - 10/26/2024 12:04 PM EDT Florinef 0.1 mg tablet Last OV: VV on 08/27/24 Last Refill: 06/15/24 F/U OV: 03/05/25 Appropriate for refill. Routed to AM for review. Jefry Raphael RN, BSN [facility]07-18-2025 Miscellaneous Notes* Telephone Encounter - Jefry Raphael RN - 10/26/2024 12:04 PM EDT Florinef 0.1 mg tablet Last OV: VV on 08/27/24 Last Refill: 06/15/24 F/U OV: 03/05/25 Appropriate for refill. Routed to AM for review. Jefry Raphael RN, BSN documented in this encounterWilson Health07-09-2025 Telephone encounter Note * Telephone Encounter - Dori Padilla PA-C - 10/17/2024 3:07 PM EDT Looks good thank you. If new dizziness or new or worsening symptoms ER. Dori Jhaveri PA-C [facility] Work Phone: [phone]) 679-899607-09-2025 Miscellaneous Notes* Telephone Encounter - Dori Padilla PA-C - 10/17/2024 3:07 PM EDT Looks good thank you. If new dizziness or new or worsening symptoms ER. Dori Jhaveri PA-C * Telephone Encounter - Swapnil Borrego RN - 10/17/2024 12:28 PM EDT RN returned patients call regarding blood pressure. Patient says her FLORINEF was increased to 0.1mg BID from once daily which had helped to resolve her dizziness. However, she says she has had increased dizziness and reports a fall last week. She did not mention any injury sustained from fall but she does say that she feels like her BP was low at the time. She did not record her blood pressure at that time. RN first encouraged an increase in conservative measures during summer months as heat can exacerbate symptoms. Specifically instructed patient to increase water and sodium intake. Patientagreed to do so and says she has been trying to avoid the heat by staying indoors. Patient says shedoes wear compression stockings but not an abdominal binder as suggested in her office visit note. RN explained that these could be found at her local medical supply store or pharmacy. Patient says she will check [facility]. RN also suggested searching [employer]. Last, RN explained plan to send patientinstructions for an orthostatic log so that her provider has some objective data to help guide recom mendations. Patient verbalized understanding and thanked RN for the call. GENESIS Vitale, RN, SCRN documented in this encounterWilson Health07-09-2025 Telephone encounter Note * Telephone Encounter - Swapnil Borrego RN - 10/17/2024 12:28 PM EDT RN returned patients call regarding blood pressure. Patient says her FLORINEF was increased to 0.1mg BID from once daily which had helped to resolve her dizziness. However, she says she has had increased dizziness and reports a fall last week. She did not mention any injury sustained from fall but she does say that she feels like her BP was low at the time. She did not record her blood pressure at that time. RN first encouraged an increase in conservative measures during summer months as heat can exacerbate symptoms. Specifically instructed patient to increase water and sodium intake. Patientagreed to do so and says she has been trying to avoid the heat by staying indoors. Patient says shedoes wear compression stockings but not an abdominal binder as suggested in her office visit note. RN explained that these could be found at her local medical supply store or pharmacy. Patient says she will check [facility]. RN also suggested searching [employer]. Last, RN explained plan to send patientinstructions for an orthostatic log so that her provider has some objective data to help guide recom mendations. Patient verbalized understanding and thanked RN for the call. GENESIS Vitale, RN, SCRN [facility]07-03-2025 Telephone encounter Note* Telephone Encounter - Sofiya Haynes LPN - 10/11/2024 11:46 AM EDT Post Spine Injection phone call: 10/11/24 Patient denies fever, chills, new headache, prolonged numbness nor exacerbation of pain status. Injection site(s) flat and dry with no redness nor drainage. Pre Procedure Pain level: 5, but can get to 9 Immediately Post Procedure: 9 Pain level today: 4-5 (0 = none - 10 = extreme) Percentage of pain relief: patient states it depends what she's doing. When she's sitting the pain is down and when she's doing something her pain is still there. She was unable to give percentage of pain relief Blood Glucose monitorin mg/dL October 10, 2024 Patient encouraged to monitor blood glucose for next 24 -48 for elevations. Patient verbalized understanding that it may take up to 14 days to realize full benefit of spinal injection. Follow up as indicated on order: Ordering Provider Via Office Visit: 4-6 weeks. Patient reminded tobring pain diary to follow appointment. If follow up appointment indicated on order, patient encouraged to schedule follow up appointment 4-6 weeks post procedure by calling [phone] Patient does not have any questions or concerns. Patient will call office with any questions or concerns. [facility]07-03-2025 Miscellaneous Notes* Telephone Encounter - Sofiya Haynes LPN - 10/11/2024 11:46 AM EDT Post Spine Injection phone call: 10/11/24 Patient denies fever, chills, new headache, prolonged numbness nor exacerbation of pain status. Injection site(s) flat and dry with no redness nor drainage. Pre Procedure Pain level: 5, but can get to 9 Immediately Post Procedure: 9 Pain level today: 4-5 (0 = none - 10 = extreme) Percentage of pain relief: patient states it depends what she's doing. When she's sitting the pain is down and when she's doing something her pain is still there. She was unable to give percentage of pain relief Blood Glucose monitorin mg/dL October 10, 2024 Patient encouraged to monitor blood glucose for next 24 -48 for elevations. Patient verbalized understanding that it may take up to 14 days to realize full benefit of spinal injection. Follow up as indicated on order: Ordering Provider Via Office Visit: 4-6 weeks. Patient reminded tobring pain diary to follow appointment. If follow up appointment indicated on order, patient encouraged to schedule follow up appointment 4-6 weeks post procedure by calling [phone] Patient does not have any questions or concerns. Patient will call office with any questions or concerns. [facility] History of Present illness Narrative* Buck Day MD - 09/27/2024 11:00 AM EDT Images from the original note were not included. SPINE SURGERY NEW PATIENT This is an in-person visit. PCP: Erich Gillis DO REFERRING PROVIDER: Steve Wagoner MD SUBJECTIVE CHIEF COMPLAINT: Lower back pain Radicular right leg pain HISTORY OF PRESENT ILLNESS: Hola Douglas is a 79 year old female presenting with spouse. Ms. Hola Douglas is a pleasant 79 year old female in the spine surgery clinic with a history of lower back and right leg pain without history of injury or fall. Pain radiates into right lower extremity up to the knee most of the time. Occasionally pain is radiating to right lower extremity up to feet.. Pain is sharp and shooting in nature. Sharp pain is sporadic in nature. Pain worsens with bending, standing, and walking for a long time. She is able to stand only for a short period before back pain worsens. She has numbness and tingling in both of her feet on the first two toes. Her numbness is sporadic. She complains of weakness and falling. Denies bowel and bladder dysfunction. She also notices numbness and tingling in her right three fingers. She has had carpal tunnel surgery on the right side in the past. She had multiple proximal metacarpal as well as finger surgeries inthe past. Hx of diabetes. Last A1c was 6.4 on 07/23/2024. Hx of controlled hypotension. She has tried gabapentin in the past. Stopped since it was not helping. Currently taking Lyrica 150mg 3x a day. Also taking Cymbalta Received right transforaminal epidural steroid injection with some pain relief. Received right L4-5 transforaminal epidural steroid injection with pain relief for a week. Received L3-4 interlaminar epidural steroid injection with 70-80% pain relief for two weeks. No previous spine surgeries. PRECIPITATING EVENT: None DURATION OF SYMPTOMS: Greater Than 6 Months PAIN EVALUATION 08/10/2024 0925 09/20/2024 1038 09/27/2024 1042 Pain Level: 7 7 5 Pain Location: Back-Lower Back-Lower Back-Lower Pain radiated down right thigh to right knee Description: Aching;Cramping;Radiating Aching;Cramping;Radiating Aching;Sharp Duration Amount of Time: 24 24 6 Duration Units: Hours Hours Months Frequency: Continuous Continuous Intermittent Intervention/Comfort measure: Positioning Positioning Medication;Therapeutic techniques-CPRP Pain Radiation: below the right knee Aggravating Factors: Standing, Walking Alleviating Factors: Medications Pain Ratio: Pain in the back and leg(s) is equal DERMATOMAL DISTRIBUTION: Right: L3, L4, and L5 AMBULATORY STATUS: Impaired Community Distances ANTIPLATELET OR ANTICOAGULATION STATUS: No PREVIOUS CONSERVATIVE TREATMENTS: Gabapentin Lyrica 150 mg 3x daily Cymbalta 30 mg once daily Received right transforaminal epidural steroid injection with some pain relief. Received right L4-5 transforaminal epidural steroid injection with pain relief for a week. Received L3-4 interlaminar epidural steroid injection with 70-80% pain relief for two weeks. 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 Dyspnea on exertion Fatigue Tinnitus, Right Ear Sensory Hearing Loss, Bilateral Restless Legs Syndrome Postmenopausal Status Mixed Anxiety Depressive Disorder Diverticulitis Cough Chronic Pain Bruises Easily Type 2 Diabetes Mellitus With Peripheral Neuropathy (Hcc) Elevated Ast (Sgot) Dizziness Abnormal Weight Gain Chronic Bilateral Back Pain 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 Lumbar Radiculopathy Constipation PAST MEDICAL HISTORY Diagnosis Date Carpal tunnel syndrome Diverticulosis of colon (without mention of hemorrhage) Hypotension Localized osteoarthrosis not specified whether primary or secondary, hand Mastodynia Other chronic sinusitis Type II or unspecified type diabetes mellitus without mention of complication, uncontrolled Vertigo Current workup PAST SURGICAL HISTORY Procedure Laterality Date ARTHROSCOPY KNEE DIAGNOSTIC W/WO SYNOVIAL BX SPX Left Arthroscopy, knee BIOPSY BREAST OPEN INCISIONAL 1998 needle localization right breast BIOPSY BREAST OPEN INCISIONAL 1996 right breast CARPAL TUNNEL right LAPS ABD PRTM&OMENTUM DX W/WO SPEC BR/WA SPX Laparoscopy PAST SURGICAL HISTORY OF 06/2023 Bilateral cataract surgery TOTAL ABDOMINAL HYSTERECT W/WO RMVL TUBE OVARY 1992 FAMILY HISTORY Problem Relation Age of Onset Dementia Mother Coronary Artery Disease Father COPD Father No Known Problems Brother Dementia Brother No Known Problems Brother Ovarian cancer Maternal Grandmother Breast Cancer Other no known family h/o breast cancer Social History Tobacco Use Smoking status: Never Smokeless tobacco: Never Vaping Use Vaping status: Never Used Substance Use Topics Alcohol use: Not Currently Drug use: No Comment: denies tx for drug/alcohol abuse in the past. ALLERGIES Allergen Reactions Asa [Salicylates] causes platelet disfunction Aspirin Unknown, Other: See Comments Levaquin [Levofloxa* Rash, Other: See Comments Per pt feels like she on fire Avelox [Moxifloxaci* Intolerance C/O burning feeling on skin MEDICATIONS: tirzepatide (MOUNJARO) 10 mg/0.5 mL pen injector Inject 10 mg subcutaneously one time a week. citalopram (CELEXA) 20 mg tablet Take 1 tablet by mouth once daily. DULoxetine (CYMBALTA) 30 mg capsule Take 1 capsule by mouth once daily. tobramycin (TOBREX) 0.3 % ophthalmic solution Use 1 drop in the right eye as directed. pregabalin (LYRICA) 150 mg capsule Take 1 capsule by mouth two times a day. fludrocortisone (FLORINEF) 0.1 mg tablet Take 2 tablets by mouth once daily. lancets (TRUEPLUS LANCETS) 33 gauge Use with blood glucose test once daily pravastatin (PRAVACHOL) 10 mg tablet Take 1 tablet by mouth once daily. blood sugar diagnostic (TRUE METRIX GLUCOSE TEST STRIP) test strip Use with blood glucose test oncedaily Blood-Glucose Meter (TRUE METRIX GLUCOSE METER) 1 Each once daily. ergocalciferol 50,000 unit capsule (VITAMIN D2, DRISDOL) TAKE 1 CAPSULE ONE TIME WEEKLY clonazePAM (KLONOPIN) 0.5 mg tablet Take 1 tablet by mouth as needed. For restless leg syndrome loratadine (CLARITIN) 10 mg tablet Take 10 mg by mouth once daily. fluticasone (FLONASE) 50 mcg/actuation nasal spray Use 2 Sprays in each nostril twice daily. pen needle, diabetic (COMFORT EZ PEN NEEDLES) 33 gauge x 5/16 ndle To inject weekly MULTIVITAMIN (MULTI-DAY ORAL) Take by mouth once daily. calcium carbonate 600 mg-cholecalciferol 200 units (CALCIUM 600 + D,3,) 600 mg(1,500mg) -200 unit tab Take 1 tablet by mouth once daily. REVIEW OF SYSTEMS: PAIN ASSESSMENT: See HPI. GENERAL: Denies fever, chills malaise and weight loss. HEENT: No recent change in vision or hearing. CARDIOVASCULAR: Denies chest pain, history of A-fib, valvular disease, or pacemaker/ICD. RESPIRATORY: Denies SOB, sputum production, and hemoptysis. GI: Denies GI ulcers, inflammatory disease, or liver disease. : Denies change in frequency or urgency, kidney disease, and burning with urination. MUSCULOSKELETAL: Positive for low back pain SKIN: Denies rash or itching. PSYCHOLOGICAL: Denies uncontrolled depression or anxiety. NEURO: Denies CVA, seizures, headaches. ENDOCRINE: Denies diabetes, thyroid disease. HEMATOLOGY/LYMPHOLOGY: Denies cancer, bleeding or clotting disorders, anemia,and DVT's. ALLERGIC/IMMUNOLOGICAL: Denies risks for infection, or recent MRSA infections. Patient Entered Questionnaires 08/10/2024 09/04/2024 09/20/2024 Spine Questions Pain Location: Leg Lower back Leg Symptoms from neck/cervical spine: No Yes Yes 11/26/2023 02/28/2024 07/06/2024 Spine Red Flags Any type of cancer: No No No Unexplained fever: No No No Bowel or bladder disfunction: No No No Unintentional weight loss: No No No Osteoporosis: No No No 02/28/2024 07/06/2024 09/04/2024 Neck Questionnaires Benzel Modified DELANO Score Incomplete 14 (Moderate Myelopathy Symptoms) 14 (Moderate Myelopathy Symptoms) PROMIS Score Percentiles 07/06/2024 08/10/2024 09/04/2024 Physical Health Physical Function Percentile 5 8 7 Sleep Percentile 21* 34 27* Fatigue Percentile 18* 4 31 Pain Interference Percentile 5 12 12 07/06/2024 08/10/2024 09/04/2024 PROMIS SOCIAL ROLE SCORE Social Role Satisfaction Percentile 24* 14 24* 01/13/2024 06/19/2024 09/04/2024 PROMIS Global Health Scale Physical Health Percentile 7 22* 15 Mental Health Percentile 34 43 26* Patient-reported Percentiles provide an indication of how the patient's score ranks in relation to the general population. Higher percentile rankings indicate better function/quality of life. 50th percentile is the average of the general population and indicates half of respondents had a worse score. Descriptive Summary for PROMIS Physical Function T-score = 35 (Percentile 7) Much difficulty - Carry a laundry basket up a flight of stairs. Some difficulty - Walk at a normal speed. Unable - Walk more than a mile (1.6 km). Depression Screenin08/20/2024 08/22/2024 09/04/2024 PHQ-9 Score 13 13 8 08/20/2024 08/22/2024 09/04/2024 PHQ-9 Self-harm Question Question 9 Not at all Not at all Not at all PHQ-9 Self-Harm (Item 9) response options: 0 Not at all 1 Several days 2 More than half the days 3 Nearly every day PHQ-9 Levels: 0-4 No to mild depression 5-9 Mild depression 10-14 Moderate depression 15-19 Moderately severe depression 20-27 Severe depression OBJECTIVE: PHYSICAL EXAM There were no vitals taken for this visit. GENERAL APPEARANCE: Well nourished, well developed, and no apparent distress. NEURO PSYCH: Patient oriented to person, place, and time. Mood pleasant. Benign affect. CARDIOVASCULAR: Palpable pulses. No edema noted. No varicosities. SKIN: Head, neck, trunk, and extremities dry, intact and without lesions. LYMPHATICS: No palpable nodes in cervical or axillae areas. Groin exam deferred. MUSCULOSKELETAL VISUAL INSPECTION CERVICAL: WNL THORACIC: WNL LUMBAR: WNL PALPATION: SPINOUS PROCESS: No pain. PARASPINALS: No pain. MUSCLE BULK: Normal and symmetrical in the upper & lower extremities. MUSCLE TONE: Normal. MOTOR: 5/5 in all muscle groups. Pain related limitation of right lower extremity movements. SENSORY: Normal sensory exam GAIT: Antalgic. REFLEXES: +2 to bilateral U/L extremities. PROPRIOCEPTION: Normal. LONG TRACT SIGNS: No clonus. No Hoffmans. STRAIGHT LEG TEST: Ipsilateral: Positive on right side L'HERMITTES SIGN: Not tested. SPURLING'S TEST: Not tested. NEURO TESTS: Cranial Nerves: Normal mood and affect. CNII-XII grossly intact. DATA REVIEW [facility] records independently reviewed Images independently reviewed with the patient DATE OF EXAM: Dec 04 2023 11:17AM M [id number] - MRI LUMBAR SPINE WO IVCON / PROCEDURE REASON: multiple diagnoses * * * * Physician Interpretation * * * * EXAMINATION: MRI LUMBAR SPINE WO IVCON CLINICAL HISTORY: Spinal stenosis of lumbar region, unspecified whether neurogenic claudication present Lumbosacral spondylosis with radiculopathy TECHNIQUE: Routine lumbosacral spine MR protocol without gadolinium. MQ: [id number] COMPARISON: MRI lumbar spine 01/01/2010. RESULT: Counting reference: Lumbosacral junction. For the purposes of this report, L4-5 is considered the level of the iliac crest and assume there are 5 lumbar-type vertebrae. Anatomic variant: None. Vertebral bodies are normal in height. There is progressing severe disc space narrowing at L3-4 with progressing endplate degenerative changes. There is stable slight disc space narrowing and endplate degenerative changes at L4-5 and L5-S1. There is a progressing moderate levoscoliosis centered at L3-4. The conus medullaris has a normal appearance and terminates at approximately the L1 level. L1-2: There is a disc bulge asymmetric to the left. There is mild facet hypertrophy. The central canal is maintained. There is mild left foraminal narrowing. The right foramen is patent. Findings are stable. L2-3: There is a grade 1 spondylolisthesis without evidence of spondylolysis. There is a disc bulge and moderate facet hypertrophy. The central canal is maintained. There is mild right and moderate left foraminal stenosis. Findings are stable. L3-4: There is a persistent disc bulge with a superimposed new right subarticular and foraminal disc osteophyte complex. It compresses both the right exiting L3 nerve and right traversing L4 nerve root. There is progressing facet and ligamentum flavum hypertrophy. There is progressing mild to moderate central canal stenosis. There is progressing mild left foraminal stenosis. L4-5: There is a persistent disc bulge indenting the thecal sac. There is progressing facet and ligamentum flavum hypertrophy. There is progressing mild to moderate central canal stenosis. There is progressing mild to moderate bilateral foraminal stenosis. L5-S1: There is a mildly progressing left paracentral and foraminal disc osteophyte complex. There is progressing mass effect and displacement of the left traversing S1 nerve root. There is progressing facet hypertrophy. There is progressing mild central canal stenosis. There is progressing moderate to severe left foraminal narrowing. The right foramen remains patent. Sacrum and iliac wings: The visualized sacrum and iliac wings are within normal limits. DATE OF EXAM: Dec 04 2023 11:18AM [facility] [id number] - MRI CERVICAL SPINE WO IVCON / PROCEDURE REASON: multiple diagnoses * * * * Physician Interpretation * * * * EXAMINATION: MRI CERVICAL SPINE WO IVCON CLINICAL HISTORY: Spinal stenosis of cervical region Bilateral arm weakness. Right arm weakness rule out myelopathy. TECHNIQUE: Routine cervical spine MR protocol without gadolinium. MQ: [id number] COMPARISON: None. RESULT: Counting reference: Craniocervical junction. 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 Localizer images: Unremarkable. Alignment: There is a mild anterolisthesis of C4 upon C5. There is a minimal anterolisthesis of C7 upon T1.. Craniocervical junction: Craniocervical junction is normal. Cord: The visualized cord is within normal limits of signal intensity and morphology. Bone marrow signal/fracture: No evidence of pathologic marrow infiltration. No evidence of prior fracture. Cervical soft tissues: The paraspinal soft tissues are within normal limits. C2-3: There is a disc bulge indenting the thecal sac. No significant central canal or foraminal stenosis. C3-4: There is a disc bulge indenting the thecal sac. The central canal is maintained. There is mild bilateral foraminal narrowing secondary to facet hypertrophy. The left foramen is patent. C4-5: There is a shallow broad disc osteophyte complex indenting the thecal sac. There is no cord compression or canal stenosis. There is moderate right and mild left foraminal stenosis secondary to facet and uncovertebral joint hypertrophy. 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 No significant central canal or foraminal stenosis. C6-7: There is a shallow broad disc osteophyte complex indenting the thecal sac. There is no cord compression or canal stenosis. There is moderate left foraminal stenosis secondary to facet and uncovertebral joint hypertrophy. The right neural foramen is patent. DATE OF EXAM: Jan 16 2024 10:14AM [id number] - XR CERVICAL 4V AP/LAT/FLX/EXT / PROCEDURE REASON: Anterolisthesis of cervical spine * * * * Physician Interpretation * * * * EXAMINATION: XR CERVICAL 4V AP/LAT/FLX/EXT CLINICAL HISTORY: Anterolisthesis of cervical spine TECHNOLOGIST PROVIDED HISTORY: COMPARISON: MRI C-spine 12/04/2023 COUNTING REFERENCE: Craniocervical junction. Anatomic Variants: None. RESULT: No acute fracture or compression deformity. Mild anterolisthesis of C4 on C5 and minimal anterolisthesis of C7 on T1 without change on flexion/extension. Vertebral body heights preserved. Mild disc space narrowing at C4-C5 and C6-C7. 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 Degenerative changes SI joints at multiple levels including C4/C5 and C7/T1.. No prevertebral soft tissue swelling DATE OF EXAM: May 11 2024 10:24AM [id number] - XR LUMBAR 3V AP/LAT/L5-S1 / PROCEDURE REASON: Fall, initial encounter * * * * Physician Interpretation * * * * HISTORY: Fall, initial encounter . TECHNIQUE: XR LUMBAR 3V AP/LAT/L5-S1 Laterality: NOT APPLICABLE Number of different views (projections): 3 COMPARISON: Radiographs dated 11/29/2023. RESULT: Counting reference: Lumbosacral junction. For the purposes of this report, L4-5 is considered the level of the iliac crest and there are 5 lumbar-type vertebrae. Anatomic Variants: None. Mild left apex scoliosis. Straightening of the lumbar spine curvature. Grade 1 anterolisthesis of L2 on L3 and mild retrolisthesis of L3 on L4, L4 on L5 and L5 on S1. There are multilevel degenerative changes with disc space narrowing, marginal endplate osteophytes and facet joint hypertrophy. Vascular calcifications are noted. No other significant abnormality. ASSESSMENT/PLAN Ms. Hola Douglas is a pleasant 79 year old female in the spine surgery clinic with a history of lower back and right leg pain without history of injury or fall. Pain radiates into right lower extremity up to the knee most of the time. Occasionally pain is radiating to right lower extremity up to feet.. Pain is sharp and shooting in nature. Sharp pain is sporadic in nature. Pain worsens with bending, standing, and walking for a long time. She is able to stand only for a short period before back pain worsens. She has numbness and tingling in both of her feet on the first two toes. Her numbness is sporadic. She complains of weakness and falling. Denies bowel and bladder dysfunction. She also notices numbness and tingling in her right three fingers. She has had carpal tunnel surgery on the right side in the past. She had multiple proximal metacarpal as well as finger surgeries inthe past. Hx of diabetes. Last A1c was 6.4 on 07/23/2024. Hx of controlled hypotension. She has tried gabapentin in the past. Stopped since it was not helping. Currently taking Lyrica 150mg 3x a day. Also taking Cymbalta Received right transforaminal epidural steroid injection with some pain relief. Received right L4-5 transforaminal epidural steroid injection with pain relief for a week. Received L3-4 interlaminar epidural steroid injection with 70-80% pain relief for two weeks. No previous spine surgeries. Neurological examination showed antalgic gait. SLR is positive on right side. No focal motor weakness. Pain related limitation of right lower extremity movements. No sensory deficit. X-ray lumbar spine showed degenerative changes at multiple levels. Asymmetric collapse of disc space at L3-4 level more towards the right side. Lateral listhesis at L4-5 level. Lumbar spondylosis at L2-3, L5-S1 levels. MRI lumbar spine showed right subarticular and foraminal disc osteophyte complexcompressing both the exiting L3 nerve root as well as traversing L4 nerve root at L3-4 level. Moderate lumbar canal stenosis at L3-4 level. Moderate central canal stenosis at L4-5 level with moderatebilateral foraminal stenosis. Mild progressing left paracentral and foraminal disc osteophyte complex at L5-S1 level. Mild displacement of left transverse S1 root. 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 Anterolisthesis at the C4-5 level. Left cervical spondylosis at C6-7 level Discussed clinical, imaging finding. Showed images and explained detail. Discussed treatment options for lower back and right leg radiculopathy which includes continued conservative treatment of backexercises, physical therapy, pain medication, Lyrica 150 mg 3 times a day, Cymbalta, right L3-4, L4-5 transferral epidural injection and surgical intervention. Discussed in detail about epidural injection as well as surgical intervention. Discussed in detail about L3, L4 laminectomy, decompression of L3-4, L4-5 lumbar canal stenosis with bilateral root foraminotomy and L3-4, L4-5 transforaminal lumbar interbody fusion surgical procedure, its advantages and risks. Risks of surgery includes infection, bleeding, hematoma formation, nonhealing of wound, wound dehiscence, superficial wound infection, CSF leak, nerve damage, nonimprovement of pain, nonimprovement of numbness, worsening pain, knee/foot weakness, bowel/bladder dysfunction, retention of urine, screw malposition, vertebral body fracture, pedicle fracture, screw loosening, screw pullout, pseudoarthrosis/nonhealing of bone graft, adjacent segment disc disease, requirement of further surgery/extension of fusion in the future, pneumonia, DVT, heart attack, pulmonary embolism and . Also discussed the treatment option for cervical spondylosis which includes continue isometric neckexercise. Considering no features suggestive of radiculopathy or myelopathy, I do not think she requires surgical intervention for cervical spine at this time. Also discussed the related outcome of surgical intervention. Some of her pain is chronic in nature.Her chronic pain may not improve even after surgery. She also has spondylosis at multiple other levels. If she develop significant canal stenosis or foraminal stenosis in the future, she may require surgical intervention for other levels. All her questions were answered Hola Douglas prefers to try another epidural injection prior to consider surgical intervention. Right L3-4, L4-5 transferral epidural injection consult placed. If she fails conservative treatment, she may benefit from surgical intervention. Follow-up in spine surgery clinic after completion of injection The majority of the visit was spent counseling and/or coordinating care for the patient. The patient was counseled regarding lower back pain, right leg pain, right leg numbness, walking difficulty, lumbar canal stenosis, foraminal stenosis, lateral listhesis, lumbar spondylolisthesis, Lyrica, Cymbalta, epidural injections, lumbar decompression with fusion. Total face to face time was 45 minutes. By signing my name below, Owen Monk MA Student, attest that this documentation has been prepared under the direction and in the presence of Dr. Day Electronically signed, WAQAS Alejandra Scribe September 27, 2024 Provider Attestation: Buck Monk MD personally performed the services described in this documentation. All medical record entries made by the scribe were at my direction and in my presence. I have reviewed the chart and discharge instructions (if applicable) and agree that the record reflects my personal performance and is accurate and complete. Electronically Signed: Buck Day MD, 2024 SIGNATURE: Buck Day MD PATIENT NAME: Hola Douglas DATE: September 27, 2024 TIME: 11:33 AM PAGER: documented in this encounterWilson Health06-19-2025 NoteHNO ID: [id number] Author: BUCK DAY MD Service: ? Author Type: Physician Type: Progress Notes Filed: 09/27/2024 12:35 Note Text: SPINE SURGERY NEW PATIENT This is an in-person visit. PCP: Erich Gillis DO REFERRING PROVIDER: Steve Wagoner MD SUBJECTIVE CHIEF COMPLAINT: Lower back pain Radicular right leg pain HISTORY OF PRESENT ILLNESS: Hola Douglas is a 79 year old female presenting with spouse. Ms. Hola Douglas is a pleasant 79 year old female in the spine surgery clinic with a history of lower back and right leg pain without history of injury or fall. Pain radiates into right lower extremity up to the knee most of the time. Occasionally pain is radiating to right lower extremity up to feet.. Pain is sharp and shooting in nature. Sharp pain is sporadic in nature. Pain worsens with bending, standing, and walking for a long time. She is able to stand only for a short period before back pain worsens. She has numbness and tingling in both of her feet on the first two toes. Her numbness is sporadic. She complains of weakness and falling. Denies bowel and bladder dysfunction. She also notices numbness and tingling in her right three fingers. She has had carpal tunnel surgery on the right side in the past. She had multiple proximal metacarpal as well as finger surgeries in the past. Hx of diabetes. Last A1c was 6.4 on 07/23/2024. Hx of controlled hypotension. She has tried gabapentin in the past. Stopped since it was not helping. Currently taking Lyrica 150 mg 3x a day. Also taking Cymbalta Received right transforaminal epidural steroid injection with some pain relief. Received right L4-5 transforaminal epidural steroid injection with pain relief for a week. Received L3-4 interlaminar epidural steroid injection with 70-80% pain relief for two weeks. No previous spine surgeries. PRECIPITATING EVENT: None DURATION OF SYMPTOMS: Greater Than 6 Months PAIN EVALUATION 08/10/2024 0925 09/20/2024 1038 09/27/2024 1042 Pain Level: 7 7 5 Pain Location: Back-Lower Back-Lower Back-Lower Pain radiated down right thigh to right knee Description: Aching;Cramping;Radiating Aching;Cramping;Radiating Aching;Sharp Duration Amount of Time: 24 24 6 Duration Units: Hours Hours Months Frequency: Continuous Continuous Intermittent Intervention/Comfort measure: Positioning Positioning Medication;Therapeutic techniques-CPRP Pain Radiation: below the right knee Aggravating Factors: Standing, Walking Alleviating Factors: Medications Pain Ratio: Pain in the back and leg(s) is equal DERMATOMAL DISTRIBUTION: Right: L3, L4, and L5 AMBULATORY STATUS: Impaired Community Distances ANTIPLATELET OR ANTICOAGULATION STATUS: No PREVIOUS CONSERVATIVE TREATMENTS: Gabapentin Lyrica 150 mg 3x daily Cymbalta 30 mg once daily Received right transforaminal epidural steroid injection with some pain relief. Received right L4-5 transforaminal epidural steroid injection with pain relief for a week. Received L3-4 interlaminar epidural steroid injection with 70-80% pain relief for two weeks. 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 Dyspnea on exertion Fatigue Tinnitus, Right Ear Sensory Hearing Loss, Bilateral Restless Legs Syndrome Postmenopausal Status Mixed Anxiety Depressive Disorder Diverticulitis Cough Chronic Pain Bruises Easily Type 2 Diabetes Mellitus With Peripheral Neuropathy (Hcc) Elevated Ast (Sgot) Dizziness Abnormal Weight Gain Chronic Bilateral Back Pain 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 Lumbar Radiculopathy Constipation PAST MEDICAL HISTORY Diagnosis Date Carpal tunnel syndrome Diverticulosis of colon (without mention of hemorrhage) Hypotension Localized osteoarthrosis not specified whether primary or secondary, hand Mastodynia Other chronic sinusitis Type II or unspecified type diabetes mellitus without mention of complication, uncontrolled Vertigo Current workup PAST SURGICAL HISTORY Procedure Laterality Date ARTHROSCOPY KNEE DIAGNOSTIC W/WO SYNOVIAL BX SPX Left Arthroscopy, knee BIOPSY BREAST OPEN INCISIONAL 1998 needle localization right breast BIOPSY BREAST OPEN INCISIONAL 1996 right breast CARPAL TUNNEL right LAPS ABD PRTMANDOMENTUM DX W/WO SPEC BR/WA SPX Laparoscopy PAST (more content not included)...[facility]06-18-2025 Telephone encounter Note* Telephone Encounter - Sofiya Haynes LPN - 09/26/2024 10:51 AM EDT Phoned patient and spoke with patient to confirm appointment for Hola Douglas for spine procedureon 10/09/24. Patient notified that [facility]ner will call patient the night before with the time to arrive for injection. Patient verbalized understanding of the following: -Provided education on spine procedure and answered questions related to spine injection procedure. -Desk Editor is needed to drive patient home: Yes, and patient aware [employer] flatbed driver will need to stay for procedure and drive her home. -NPO 6 hours prior to appointment, ok to take morning medications with sip of water. -Not to take any pain medications the day of injection to see how well injection works. -Do not take any NSAIDs/anti-inflammatories (mobic, ibuprofen, advil, aleve, etc) the day of procedure for all lumbar, hip, and sacroiliac joint procedures. Hold NSAIDs for 1 day prior to procedure for cervical cases. Allergies reviewed: Yes Allergy to IV contrast dye or steroids: No Taking any antiplatelet/anticoagulant (blood thinners): No Taking aspirin 81mg: no Any open wounds/sores?: No Taking Antibiotics?: No Diabetic: Yes, notified that blood sugar will be taken at office and ok to take morning diabetes medication. Patient given number [phone], spine injections schedulers, if there is any need to reschedule/change appointment during normal business hours. Active MyChart users were informed to read MyChartprocedure instructions prior to appointment. AMBULATORY PATIENT EDUCATION TOPIC: SPINE INJECTION PROCEDURE, PRE-INJECTION AND POST- INJECTION INSTRUCTIONS READINESS TO LEARN COGNITIVE ABILITY: ALERT AND ORIENTED MOTIVATION TO LEARN: Eager FAMILY SUPPORT: Unable to assess - Family not present INSTRUCTION PROVIDED TO: Patient PATIENT LEARNS BEST BY: INDIVIDUAL INSTRUCTION FACTORS AFFECTING LEARNING: None PHYSICAL LIMITATIONS AFFECTING LEARNING: None LEARNING RESPONSE METHOD OF INSTRUCTION: TEACH BACK AND INDIVIDUAL INSTRUCTION PATIENT / FAMILY RESPONSE: VERBALIZED UNDERSTANDING OF PRE AND POST INJECTION INSTRUCTIONS [facility]06-18-2025 Miscellaneous Notes* Telephone Encounter - Sofiya Haynes LPN - 09/26/2024 10:51 AM EDT Phoned patient and spoke with patient to confirm appointment for Hola Douglas for spine procedureon 10/09/24. Patient notified that [facility] will call patient the night before with the time to arrive for injection. Patient verbalized understanding of the following: -Provided education on spine procedure and answered questions related to spine injection procedure. -Desk Editor is needed to drive patient home: Yes, and patient aware [employer] flatbed driver will need to stay for procedure and drive her home. -NPO 6 hours prior to appointment, ok to take morning medications with sip of water. -Not to take any pain medications the day of injection to see how well injection works. -Do not take any NSAIDs/anti-inflammatories (mobic, ibuprofen, advil, aleve, etc) the day of procedure for all lumbar, hip, and sacroiliac joint procedures. Hold NSAIDs for 1 day prior to procedure for cervical cases. Allergies reviewed: Yes Allergy to IV contrast dye or steroids: No Taking any antiplatelet/anticoagulant (blood thinners): No Taking aspirin 81mg: no Any open wounds/sores?: No Taking Antibiotics?: No Diabetic: Yes, notified that blood sugar will be taken at office and ok to take morning diabetes medication. Patient given number [phone], spine injections schedulers, if there is any need to reschedule/change appointment during normal business hours. Active MyChart users were informed to read MyChartprocedure instructions prior to appointment. AMBULATORY PATIENT EDUCATION TOPIC: SPINE INJECTION PROCEDURE, PRE-INJECTION AND POST- INJECTION INSTRUCTIONS READINESS TO LEARN COGNITIVE ABILITY: ALERT AND ORIENTED MOTIVATION TO LEARN: Eager FAMILY SUPPORT: Unable to assess - Family not present INSTRUCTION PROVIDED TO: Patient PATIENT LEARNS BEST BY: INDIVIDUAL INSTRUCTION FACTORS AFFECTING LEARNING: None PHYSICAL LIMITATIONS AFFECTING LEARNING: None LEARNING RESPONSE METHOD OF INSTRUCTION: TEACH BACK AND INDIVIDUAL INSTRUCTION PATIENT / FAMILY RESPONSE: VERBALIZED UNDERSTANDING OF PRE AND POST INJECTION INSTRUCTIONS documented in this encounterWilson Health06-17-2025 Telephone encounter Note * Telephone Encounter - Sofiya Haynes LPN - 09/25/2024 12:15 PM EDT [employer] message sent to patient with Procedure Instructions. [facility]06-17-2025 Miscellaneous Notes* Telephone Encounter - Sofiya Haynes LPN - 09/25/2024 12:15 PM EDT [employer] message sent to patient with Procedure Instructions. documented in this encounterWilson Health06-03-2025 Instructions* Patient Instructions* Steve Wagoner MD - 09/11/2024 10:10 AM EDT Please update office 2 weeks after injection with update. Steve Wagoner MD documented in this encounterWilson Health06-03-2025 NoteHNO ID: [id number] Author: STEVE WAGONER MD Service: ? Author Type: Physician Type: Progress Notes Filed: 09/11/2024 10:21 Note Text: [facility] Established Visit CC: low back pain and lower extremity pain HPI: Ms. Douglas is a pleasant 79 year old female seen in follow-up for LSS, lumbar radiculoapthy, scoliosis. Patient was last seen on 07/12/2024-virtual visit. Please refer to that note for additional details. S/p interlaminar L3-4 ANGELA 08/14/2024. Helped 60-65% and notes only lasted apx 2 weeks. Was able to do more but still limited. Notes greater benefit compared to the R L4-5 TFESI 01/2024. Currently notes low back and L lateral leg pain to the knee. Worse with activities Limiting QOL. Pain is 5-9/10. Lyrica greater benefit than gabapentin-150 mg bid Cymbalta 30 mg once a day Doing HEP. Has appointment to see spine surgeon Prior interventions- R SI joint injection, Dr. Oleary 09/19/2023-no benefit. B SI joint injection 06/08/2023-helped. Lumbar RFAB L4/5 and L5/S1 04/20/2023 which helped and continues to help Allergies: ALLERGIES Allergen Reactions Asa [Salicylates] causes platelet disfunction Aspirin Unknown, Other: See Comments Levaquin [Levofloxa* Rash, Other: See Comments Per pt feels like she on fire Avelox [Moxifloxaci* Intolerance C/O burning feeling on skin Current Outpatient Medications Medication Sig tirzepatide (MOUNJARO) 10 mg/0.5 mL pen injector Inject 10 mg subcutaneously one time a week. citalopram (CELEXA) 20 mg tablet Take 1 tablet by mouth once daily. DULoxetine (CYMBALTA) 30 mg capsule Take 1 capsule by mouth once daily. tobramycin (TOBREX) 0.3 % ophthalmic solution Use 1 drop in the right eye as directed. pregabalin (LYRICA) 150 mg capsule Take 1 capsule by mouth two times a day. fludrocortisone (FLORINEF) 0.1 mg tablet Take 2 tablets by mouth once daily. lancets (TRUEPLUS LANCETS) 33 gauge Use with blood glucose test once daily pravastatin (PRAVACHOL) 10 mg tablet Take 1 tablet by mouth once daily. blood sugar diagnostic (TRUE METRIX GLUCOSE TEST STRIP) test strip Use with blood glucose test once daily Blood-Glucose Meter (TRUE METRIX GLUCOSE METER) 1 Each once daily. ergocalciferol 50,000 unit capsule (VITAMIN D2, DRISDOL) TAKE 1 CAPSULE ONE TIME WEEKLY clonazePAM (KLONOPIN) 0.5 mg tablet Take 1 tablet by mouth as needed. For restless leg syndrome loratadine (CLARITIN) 10 mg tablet Take 10 mg by mouth once daily. fluticasone (FLONASE) 50 mcg/actuation nasal spray Use 2 Sprays in each nostril twice daily. pen needle, diabetic (COMFORT EZ PEN NEEDLES) 33 gauge x 5/16 ndle To inject weekly MULTIVITAMIN (MULTI-DAY ORAL) Take by mouth once daily. calcium carbonate 600 mg-cholecalciferol 200 units (CALCIUM 600 + D,3,) 600 mg(1,500mg) -200 unit tab Take 1 tablet by mouth once daily. No current facility-administered medications for this visit. Physical Examination: BP 121/70 Pulse 79 Ht 5' 8 (1.73m) Wt 190 lb (86.2kg) SpO2 92% BMI 28.90 kg/(m2). General: NAD, pleasant Lungs: Symmetric chest expansion Gait: slightly antalgic on the R Palpation: lumbar tenderness and R trochanteric bursa tenderness Strength: Bilateral LE strength is normal R hip ROM with pain but non-focal Radiological Review: Fluor images Lumbar MRI Hip x-ray Impression: Scoliosis, R chronic lumbar radiculopathy, LSS R trochanteric bursitis Plan: Limited benefit despite extensive non-operative treatment. Would like to pursue surgical opinion. Has apt 09/27. 2. Ongoing HEP and activities as tolerated. Continue cymbalta and lyrica as tolerated. 3. Appears there is an overlap of R trochanteric bursitis. Would like to proceed with bursa injection, will request under image guidance as this potentially diagnostic and therapeutic. 4. Update office 2-4 weeks after. The patient is instructed to call/seek urgent medical care with worsening pain or change of neurological status. There are no barriers to patient education identified. Management options were discussed in detail. The patient is in agreement with the plan as outlined above and verbalized understanding. Steve Wagoner, [facility]06-03-2025 History of Present illness Narrative* Steve Wagoner MD - 09/11/2024 9:51 AM EDT [facility] Established Visit CC: low back pain and lower extremity pain HPI: Ms. Douglas is a pleasant 79 year old female seen in follow-up for LSS, lumbar radiculoapthy, scoliosis. Patient was last seen on 07/12/2024-virtual visit. Please refer to that note for additional details. S/p interlaminar L3-4 ANGELA 08/14/2024. Helped 60-65% and notes only lasted apx 2 weeks. Was able to domore but still limited. Notes greater benefit compared to the R L4-5 TFESI 01/2024. Currently notes low back and L lateral leg pain to the knee. Worse with activities Limiting QOL. Pain is 5-9/10. Lyrica greater benefit than gabapentin-150 mg bid Cymbalta 30 mg once a day Doing HEP. Has appointment to see spine surgeon Prior interventions- R SI joint injection, Dr. Oleary 09/19/2023-no benefit. B SI joint injection 06/08/2023-helped. Lumbar RFAB L4/5 and L5/S1 04/20/2023 which helped and continues to help Allergies: ALLERGIES Allergen Reactions Asa [Salicylates] causes platelet disfunction Aspirin Unknown, Other: See Comments Levaquin [Levofloxa* Rash, Other: See Comments Per pt feels like she on fire Avelox [Moxifloxaci* Intolerance C/O burning feeling on skin Current Outpatient Medications Medication Sig tirzepatide (MOUNJARO) 10 mg/0.5 mL pen injector Inject 10 mg subcutaneously one time a week. citalopram (CELEXA) 20 mg tablet Take 1 tablet by mouth once daily. DULoxetine (CYMBALTA) 30 mg capsule Take 1 capsule by mouth once daily. tobramycin (TOBREX) 0.3 % ophthalmic solution Use 1 drop in the right eye as directed. pregabalin (LYRICA) 150 mg capsule Take 1 capsule by mouth two times a day. fludrocortisone (FLORINEF) 0.1 mg tablet Take 2 tablets by mouth once daily. lancets (TRUEPLUS LANCETS) 33 gauge Use with blood glucose test once daily pravastatin (PRAVACHOL) 10 mg tablet Take 1 tablet by mouth once daily. blood sugar diagnostic (TRUE METRIX GLUCOSE TEST STRIP) test strip Use with blood glucose test oncedaily Blood-Glucose Meter (TRUE METRIX GLUCOSE METER) 1 Each once daily. ergocalciferol 50,000 unit capsule (VITAMIN D2, DRISDOL) TAKE 1 CAPSULE ONE TIME WEEKLY clonazePAM (KLONOPIN) 0.5 mg tablet Take 1 tablet by mouth as needed. For restless leg syndrome loratadine (CLARITIN) 10 mg tablet Take 10 mg by mouth once daily. fluticasone (FLONASE) 50 mcg/actuation nasal spray Use 2 Sprays in each nostril twice daily. pen needle, diabetic (COMFORT EZ PEN NEEDLES) 33 gauge x 5/16 ndle To inject weekly MULTIVITAMIN (MULTI-DAY ORAL) Take by mouth once daily. calcium carbonate 600 mg-cholecalciferol 200 units (CALCIUM 600 + D,3,) 600 mg(1,500mg) -200 unit tab Take 1 tablet by mouth once daily. No current facility-administered medications for this visit. Physical Examination: BP 121/70 Pulse 79 Ht 5' 8 (1.73m) Wt 190 lb (86.2kg) SpO2 92% BMI 28.90 kg/(m^2). General: NAD, pleasant Lungs: Symmetric chest expansion Gait: slightly antalgic on the R Palpation: lumbar tenderness and R trochanteric bursa tenderness Strength: Bilateral LE strength is normal R hip ROM with pain but non-focal Radiological Review: Fluor images Lumbar MRI Hip x-ray Impression: Scoliosis, R chronic lumbar radiculopathy, LSS R trochanteric bursitis Plan: Limited benefit despite extensive non-operative treatment. Would like to pursue surgical opinion. Has apt 09/27. 2. Ongoing HEP and activities as tolerated. Continue cymbalta and lyrica as tolerated. 3. Appears there is an overlap of R trochanteric bursitis. Would like to proceed with bursa injection, will request under image guidance as this potentially diagnostic and therapeutic. 4. Update office 2-4 weeks after. The patient is instructed to call/seek urgent medical care with worsening pain or change of neurological status. There are no barriers to patient education identified. Management options were discussed in detail.The patient is in agreement with the plan as outlined above and verbalized understanding. Steve Wagoner MD documented in this encounterWilson Health05-27-2025 NoteHNO ID: [id number] Author: ?, ?, ? Service: ? Author Type: ? Type: Progress Notes Filed: 09/04/2024 15:59 Note Text: POPULATION HEALTH NAVIGATION OUTREACH Action/[facility] Support: Called pt to schedule an appt in Pain Management. Spoke w/ pt, will call back another time to schedule appt. Any agent can assist with scheduling. Reason for Outreach Care Gap/HCC or Scheduling Wellness Visits Care Gaps due: N/A Patient Contacted: Spoke to patient/parent/or legal guardian Patient identified by name and : Yes Care Gap/HCC/Scheduling Wellness actions taken: Patient declined: Patient will contact office directly to schedule Navigation Signature: Marianne Norton September 04, 2024 3:58 [facility]05-27-2025 History of Present illness Narrative* Marianne Norton - 09/04/2024 3:58 PM EDT POPULATION HEALTH NAVIGATION OUTREACH Action/[facility] Support: Called pt to schedule an appt in Pain Management. Spoke w/ pt, will call backanother time to schedule appt. Any agent can assist with scheduling. Reason for Outreach Care Gap/HCC or Scheduling Wellness Visits Care Gaps due: N/A Patient Contacted: Spoke to patient/parent/or legal guardian Patient identified by name and : Yes Care Gap/HCC/Scheduling Wellness actions taken: Patient declined: Patient will contact office directly to schedule Navigation Signature: Marianne Norton September 04, 2024 3:58 PM documented in this encounterWilson Health05-27-2025 NotePatient Outreach (NETNAV) HOLA DOUGLAS ([id number]) 1945 F Date Time Provider Department 09/04/24 NO PCP (MANDO) DANIEL During your visit today, we recorded the following information about you: Marianne Norton 09/04/2024 3:59 PM Signed POPULATION HEALTH NAVIGATION OUTREACH Action/[facility] [place] Support: Called pt to schedule an appt in Pain Management. Spoke w/ pt, will call back another time to schedule appt. Any agent can assist with scheduling. Reason for Outreach Care Gap/HCC or Scheduling Wellness Visits Care Gaps due: N/A Patient Contacted: Spoke to patient/parent/or legal guardian Patient identified by name and : Yes Care Gap/HCC/Scheduling Wellness actions taken: Patient declined: Patient will contact office directly to schedule Navigation Signature: Marianne Norton September 04, 2024 3:58 PM Allergies As of Date: 09/04/2024 Noted Allergy Reaction ASA (SALICYLATES) 12/17/2004 Comments: causes platelet disfunction ASPIRIN 08/28/2018 16 - Unknown 14 - Other: See Comments LEVAQUIN (LEVOFLOXACIN) 12/29/2017 2 - Rash 14 - Other: See Comments Comments: Per pt feels like she on fire AVELOX (MOXIFLOXACIN HCL) 06/03/2011 5 - Intolerance Comments: C/O burning feeling on skin Date Reviewed: 08/29/2024 Reviewed by: Shanita Kennedy MA - Fully Assessed Prescriptions as of 09/04/2024 - tirzepatide (MOUNJARO) 10 mg/0.5 mL pen injector Inject 10 mg subcutaneously one time a week. - citalopram (CELEXA) 20 mg tablet Take 1 tablet by mouth once daily. - DULoxetine (CYMBALTA) 30 mg capsule Take 1 capsule by mouth once daily. - tobramycin (TOBREX) 0.3 % ophthalmic solution Use 1 drop in the right eye as directed. - pregabalin (LYRICA) 150 mg capsule Take 1 capsule by mouth two times a day. - fludrocortisone (FLORINEF) 0.1 mg tablet Take 2 tablets by mouth once daily. - lancets (TRUEPLUS LANCETS) 33 gauge Use with blood glucose test once daily - pravastatin (PRAVACHOL) 10 mg tablet Take 1 tablet by mouth once daily. - blood sugar diagnostic (TRUE METRIX GLUCOSE TEST STRIP) test strip Use with blood glucose test once daily - Blood-Glucose Meter (TRUE METRIX GLUCOSE METER) 1 Each once daily. - ergocalciferol 50,000 unit capsule (VITAMIN D2, DRISDOL) TAKE 1 CAPSULE ONE TIME WEEKLY - clonazePAM (KLONOPIN) 0.5 mg tablet Take 1 tablet by mouth as needed. For restless leg syndrome - loratadine (CLARITIN) 10 mg tablet Take 10 mg by mouth once daily. - fluticasone (FLONASE) 50 mcg/actuation nasal spray Use 2 Sprays in each nostril twice daily. - pen needle, diabetic (COMFORT EZ PEN NEEDLES) 33 gauge x 5/16 ndle To inject weekly - MULTIVITAMIN (MULTI-DAY ORAL) Take by mouth once daily. - calcium carbonate 600 mg-cholecalciferol 200 units (CALCIUM 600 + D,3,) 600 mg(1,500mg) -200 unit tab Take 1 tablet by mouth once daily. Problem List As Of Date 09/04/2024 Noted Resolved Lesion of ulnar nerve [G56.20] 12/15/2004 11/10/2018 Pain in limb [M79.609] 12/15/2004 11/10/2018 ABNORMAL FINDINGS-BREAST [793.8] 12/17/2004 LOC OSTEOARTH NOS-HAND [M19.049] 12/29/2004 CARPAL TUNNEL SYNDROME [G56.00] 06/01/2005 Type 2 diabetes mellitus with stage 3a chronic *06/15/2007 MIXED HYPERLIPIDEMIA [E78.2] 06/15/2007 Bursitis of hip [M70.70] 04/18/2013 Vitamin D insufficiency [E55.9] 01/11/2014 Right buttock pain [M79.18] 03/21/2015 Pain in right hip [M25.551] 03/21/2015 Greater trochanteric bursitis of right hip [M70*03/21/2015 Iron deficiency anemia, unspecified [D50.9] 11/22/2018 Osteoarthritis of knee [M17.9] 12/05/2018 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] 04/13/2019 Orthostatic hypotension [I95.1] 12/24/2020 Dyspnea on exertion [R06.09] 12/24/2020 Fatigue [R53.83] 12/24/2020 Tinnitus, right ear [H93.11] 03/16/2021 Sensory hearing loss, 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] 03/16/2021 Restless legs syndrome [G25.81] 05/21/2021 Postmenopausal status [Z78.0] 05/21/2021 Mixed anxiety depressive disorder [F41.8] 05/21/2021 Diverticulitis [K57.92] 05/21/2021 Cough [R05.9] 05/21/2021 Chronic pain [G89.29] 05/21/2021 Bruises easily [R23.3] 05/21/2021 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*11/18/2021 Elevated AST (SGOT) [R74.01] 11/18/2021 Dizziness [R42] 11/18/2021 Abnormal weight gain [R63.5] 06/23/2023 Chronic bilateral back pain [M54.9, G89.29] 11/29/2023 Lumbosacral spondylosis with radiculopathy [M47*02/07/2024 Spinal stenosis of lumbar region [M48.061] 06/26/2024 Lumbar radiculopathy [M54.16] 06/26/2024 Constipation [K59.00] 08/21/2024 Encounter Status:Closed by MARIANNE NORTON on 09/04/24[facility] 08-29-2024 NoteHNO ID: [id number] Author: DA KING MD Service: ? Author Type: Physician Type: Progress Notes Filed: 08/29/2024 18:26 Note Text: [facility] [place] [facility] Department of Cardiovascular Medicine SECTION OF CARDIOVASCULAR IMAGING OUTPATIENT VISIT DATE 08/29/2024 OUTPATIENT VISIT TYPE ESTABLISHED PRIMARY CARE PHYSICIAN: Erich Gillis [address] [id number] CHIEF COMPLAINT: CV health management visit. HISTORY OF PRESENT ILLNESS: Ms. Douglas is a 79 year old female who presents today for a cardiovascular medicine follow-up visit. She has a past medical history significant for POTS, DM2, HTN, and HLD. Following with neurology. Has still issues with neuropathy. On lyrica. Hypotension and diabetes better. Today, Mrs. Douglas reports that she has been feeling tired, but has had no new cardiac symptoms. From a cardiovascular perspective, pt continues to do well and specifically denies any CP, SOB, palpitations, syncope, orthopnea, LE edema, focal neuro sx, post-prandial abdominal pain, or claudication. PAST CARDIAC HISTORY: SEE HPI PAST MEDICAL HISTORY Diagnosis Date Carpal tunnel syndrome Diverticulosis of colon (without mention of hemorrhage) Hypotension Localized osteoarthrosis not specified whether primary or secondary, hand Mastodynia Other chronic sinusitis Type II or unspecified type diabetes mellitus without mention of complication, uncontrolled Vertigo Current workup PAST SURGICAL HISTORY Procedure Laterality Date ARTHROSCOPY KNEE DIAGNOSTIC W/WO SYNOVIAL BX SPX Left Arthroscopy, knee BIOPSY BREAST OPEN INCISIONAL 1998 needle localization right breast BIOPSY BREAST OPEN INCISIONAL 1996 right breast CARPAL TUNNEL right LAPS ABD PRTMANDOMENTUM DX W/WO SPEC BR/WA SPX Laparoscopy PAST SURGICAL HISTORY OF 06/2023 Bilateral cataract surgery TOTAL ABDOMINAL HYSTERECT W/WO RMVL TUBE OVARY 1992 SOCIAL HISTORY Social History Tobacco Use Smoking status: Never Smokeless tobacco: Never Vaping Use Vaping status: Never Used Substance Use Topics Alcohol use: Not Currently Drug use: No Comment: denies tx for drug/alcohol abuse in the past. ALLERGIES: ALLERGIES Allergen Reactions Asa [Salicylates] causes platelet disfunction Aspirin Unknown, Other: See Comments Levaquin [Levofloxa* Rash, Other: See Comments Per pt feels like she on fire Avelox [Moxifloxaci* Intolerance C/O burning feeling on skin MEDICATIONS: citalopram (CELEXA) 20 mg tablet Take 1 tablet by mouth once daily. DULoxetine (CYMBALTA) 30 mg capsule Take 1 capsule by mouth once daily. tobramycin (TOBREX) 0.3 % ophthalmic solution Use 1 drop in the right eye as directed. tirzepatide (MOUNJARO) 10 mg/0.5 mL pen injector Inject 10 mg subcutaneously one time a week. pregabalin (LYRICA) 150 mg capsule Take 1 capsule by mouth two times a day. fludrocortisone (FLORINEF) 0.1 mg tablet Take 2 tablets by mouth once daily. lancets (TRUEPLUS LANCETS) 33 gauge Use with blood glucose test once daily pravastatin (PRAVACHOL) 10 mg tablet Take 1 tablet by mouth once daily. blood sugar diagnostic (TRUE METRIX GLUCOSE TEST STRIP) test strip Use with blood glucose test once daily Blood-Glucose Meter (TRUE METRIX GLUCOSE METER) 1 Each once daily. ergocalciferol 50,000 unit capsule (VITAMIN D2, DRISDOL) TAKE 1 CAPSULE ONE TIME WEEKLY clonazePAM (KLONOPIN) 0.5 mg tablet Take 1 tablet by mouth as needed. For restless leg syndrome loratadine (CLARITIN) 10 mg tablet Take 10 mg by mouth once daily. fluticasone (FLONASE) 50 mcg/actuation nasal spray Use 2 Sprays in each nostril twice daily. pen needle, diabetic (COMFORT EZ PEN NEEDLES) 33 gauge x 5/16 ndle To inject weekly calcium carbonate 600 mg-cholecalciferol 200 units (CALCIUM 600 + D,3,) 600 mg(1,500mg) -200 unit tab Take 1 tablet by mouth once daily. MULTIVITAMIN (MULTI-DAY ORAL) Take by mouth once daily. REVIEW OF SYSTEMS: POSITIVES IN BOLD GENERAL: Negative for: Weight loss or gain, Fever or Chills, Weakness and Sleep difficulties. HEENT: Negative for: Headache, Impaired Vision, Glasses, Hearing Impairment, Ringing in Ears, Nosebleeds, Poor dental care, Bleeding Gums, Dentures NECK: Negative for: Swelling, Pain, Stiffness CARDIOVASCULAR: SEE HPI RESPIRATORY: Negative for: Cough, Blood in Sputum, Shortness of breath, Wheezing, Apnea GASTROINTESTINAL: Negative for: Trouble swallowing, Heartburn, Change in bowel habits, Blood in stool, Dark black stools MUSCULOSKELETAL: Negative for: Muscle or joint pain, Stiffness, Joint swelling NEUROLOGIC/PSYCHIATRIC: Negative for: Weakness, Paralysis, Numbness, Tingling, Tremor, Nervousness, Depressed mood, Memory loss SKIN: Negative for: Rashes, Itching HEMATOLOGICAL/LYMPHATIC: Negative for: Easy bruising , Easy bleeding ENDOCRINE: Negative for: Heat o (more content not included)...[facility]05-19-2025 Instructions* Patient Instructions* Dori Padilla PA-C - 08/27/2024 1:07 PM EDT Alpha lipoic acid Although there are no cure for the damaged nerves in neuropathy, some medications may have a protective effect.I would prefer using a medication with little potential for interactions with other prescribed drugs you take. The supplement is called Alpha lipoid acid, please take 600 mg by mouth, once daily. This can be obtained over the counter or from a nutraceutical/[employer] store. The beneficial effects of this medication may be perceived after a couple months of consistent daily dosing. [facility] History of Present illness Narrative* Dori Padilla PA-C - 08/27/2024 12:30 PM EDT Images from the original note were not included. [facility] Follow-Up VIRTUAL VISIT This is a virtual visit using [employer] Zoom Video Visit. It required patient- provider interaction for the medical decision making as documented below. I have communicated my name and active licensure. The patient's identity and physical location wereverified at the time of this visit. Either the patient or their legal physician relations representative has been informed of the risks and benefits of -- and alternatives to -- treatment through a remote evaluation andconsents to proceed with the evaluation remotely. Hola Douglas is a 79 year old female here today for a follow up. Last Visit 12/15/2023 Last Filed Values Date of Most Recent Assessment and Plan 12/15/23 Specialty Neuromuscular Assessment Hola Douglas is a 78 year old here today for follow up. 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 Seen initially for onset of symptoms ~2020, at which time she developed hypotension. She has a longstanding history of poorly controlled DM2, and reports issues with diabetic neuropathy since ~2009. Reported occasional episodes of LOC preceded by feeling weak, tired, and lightheaded, able to lowerto the ground. No seizure signs. Orthostatic vitals in the office at initial appointment demonstrating maximum SBP reduction 19 mmHg. And heart rate increase 18 bpm. EPS tilt in 2017 demonstrating blood pressures meeting criteria for mild POTS vs OH (maximum heart rate increase of 29 bpm and SBP reduction of 21 mmHg both at [id number] of tiltm at which time testing was terminated due to symptoms). EPS tilt in 2021 with relativelystable BPs (maximum decrease SBP 12 mmHg, which recovered), with some tachycardia (maximum HR increase 35 bpm at minute 39). Most recent Echo 07/2023 demonstrating mild AR but otherwise WNL. Repeat tilt was ordered by cardiology and completed 12/14/2023. On most recent examination had sensory disturbance and LLE weakness disproportionate to R today, not clearly following dermatome. EMG completed 08/2023 and on my review consistent with PN vs lumbar radic L>R L4-5 >L5-S1. We discuss we will obtain skin biopsy to assess for SFN. Established with [facility] spine, and MRI cervical and lumbar completed 11/2023, demonstrating L3-L4 mild-moderate canal stenosis and L foraminal stenosis, L4-L5 mild-moderate canal stenosis and bilateral foraminal stenosis, and L5-S1 L paracentral disc osteophye comlex with mass effect on the S1 nerve root, moderate-severe L foraminal stenosis. 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 Reports in the interim worsened hypotension at home as well as increased feelings of imbalance and pre-syncope. No final tilt report available but remarks on SBP as low as 70s mmHg. She is hypotensive today while sitting with SBP 90s mmHg. Plan 1) Labs in 1 month (after starting increased fludrocortisone dose) 2) Skin biopsy 3) Increase fludrocortisone to 0.2 mg (2 tablets) daily in AM 4) Discuss cholesterol management with PCP or cardiology 5) Consider balance therapy when finished with PT for your back Today August 22, 2024 : Cardiology 12/2023: Supportive therapies, increasing florinef [facility]rological [facility] 03/2024: no evidence of parkinsonism, schdeuled for PT Spine Steve Wagoner, 07/2024; dx lumbar radiculopathy. Consult to spine surgery given - concern forinterlaminar device Ongoing Symptoms: Still having shooting pains in her feet bilaterally feels better when with her socks off and nothing touching it. Associated numbness and her toes ache. Following podiatry. Denies any recent TLOC Denies lightheadedness. Had an injection in her lower back recently due to right sciatica pain from pain management. Still dealing with daily pain. Scheduled to meet with spine surgery. Start Cymbalta today for pain management Florinef - 0.2 mg daily. She has noticed an improvement in her symptoms since this increased dosage. She checks her blood pressure Denies recent TLOC episodes Current management of orthostatic condition Diet: no restrictions Exercise: doing floor pedaling exercises Water: 24 oz. Per day Salt: starting to incorporate into diet Stockings: yes, not daily. Current Medications for orthostatic condition Florinef 0.1 mg - taking two tablets once daily Medications Reviewed tirzepatide (MOUNJARO) 10 mg/0.5 mL pen injector Inject 10 mg subcutaneously one time a week. pregabalin (LYRICA) 150 mg capsule Take 1 capsule by mouth two times a day. fludrocortisone (FLORINEF) 0.1 mg tablet Take 2 tablets by mouth once daily. lancets (TRUEPLUS LANCETS) 33 gauge Use with blood glucose test once daily pravastatin (PRAVACHOL) 10 mg tablet Take 1 tablet by mouth once daily. blood sugar diagnostic (TRUE METRIX GLUCOSE TEST STRIP) test strip Use with blood glucose test oncedaily Blood-Glucose Meter (TRUE METRIX GLUCOSE METER) 1 Each once daily. ergocalciferol 50,000 unit capsule (VITAMIN D2, DRISDOL) TAKE 1 CAPSULE ONE TIME WEEKLY clonazePAM (KLONOPIN) 0.5 mg tablet Take 1 tablet by mouth as needed. For restless leg syndrome loratadine (CLARITIN) 10 mg tablet Take 10 mg by mouth once daily. fluticasone (FLONASE) 50 mcg/actuation nasal spray Use 2 Sprays in each nostril twice daily. pen needle, diabetic (COMFORT EZ PEN NEEDLES) 33 gauge x 5/16 ndle To inject weekly MULTIVITAMIN (MULTI-DAY ORAL) Take by mouth once daily. calcium carbonate 600 mg-cholecalciferol 200 units (CALCIUM 600 + D,3,) 600 mg(1,500mg) -200 unit tab Take 1 tablet by mouth once daily. Allergies Reviewed Relevant Work Up To Date MRI Brain w/ wo 11/05/2023 IMPRESSION: 1. No acute intracranial process evident. 2. Periventricular signal abnormality without mass effect nor enhancement in keeping with small vessel ischemic changes. 3. Old ischemic changes in the right frontal white matter. 4. Central and cortical age related atrophy. 5. Mild paranasal sinus disease and mild fluid bilaterally at the mastoid air cells. --- EMG 08/24/2023 Extensive electrodiagnostic examination of the left lower including nerve conductions study and needle exam with additional studies of the right lower extremity reveals evidence of a generalized sensorimotor polyneuropathy, affecting the lower extremity, which is predominately axonal in type, and severe in degree electrically. This constellation of findings is nonspecific for etiology and consistent with an axon loss polyneuropathy affecting lower extremity in length dependent pattern, as may be seen in metabolic, toxic, nutritional or hereditary causes. Chronic motor axonal loss changes are present in muscles distal to the knee bilaterally. There is no evidence of L3-S1 motor radiculopathyon the left nor L5/S1 on the right. Pure sensory radiculopathy can not be assessed with EMG test. --- MRI Cervical wo 12/04/2023 IMPRESSION: At C4-5, there is a shallow broad disc osteophyte complex indenting the thecal sac. There is moderate right and mild left foraminal stenosis. 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 No significant central canal or foraminal stenosis. At C6-7, there is a shallow broad disc osteophyte complex indenting the thecal sac. There is moderate left foraminal stenosis. Intrinsic cord signal is normal. 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 --- MRI Lumbar wo 12/04/2023 IMPRESSION: At L3-4, there is a new right subarticular and foraminal disc osteophyte complex compressing both the exiting L3 nerve and traversing L4 nerve root. There is progressing mild to moderate central canal stenosis. There is progressing mild left foraminal stenosis. At L4-5, there is progressing mild to moderate central canal stenosis. There is progressing mild to moderate bilateral foraminal stenosis. At L5-S1, there is a mildly progressing left paracentral and foraminal disc osteophyte complex. There is progressing mass effect and displacement of the left traversing S1 nerve root. There is progressing moderate to severe left foraminal stenosis. Anatomic Lumbar Variant: None. L4-5 is considered the level of the iliac crest and assume there are 5 lumbar-type vertebrae. EPS Tilt 09/16/2021 * FINAL IMPRESSIONS * - The test was completed per protocol at 45 minutes of 70 degree tilt. - Systolic blood pressures remained stable from 115 mmHg at start to 122 mmHg at end of tilt. - Diastolic blood pressures oscillated from 63 mmHg at start to 54 mmHg at end of tilt. - Blood pressure upon return to supine position was 133/47 mmHg. - Heart rates increased from 70 bpm at start to 97 bpm at end of tilt. - Heart rate upon return to supine position was 66 bpm. - ECGs showed: sinus, baseline QTc 465, infrequent PVC; no diagnostic ST changes - Patient signs/symptoms included: DIZZINESS, HOT, PAIN, SEE NOTE, SOB, VISION CHANGES. - Overall: The test is negative for syncope. --- EPS TILT 01/17/2018 * FINAL IMPRESSIONS * - The test was stopped early at 34 out of 45 minutes of 70 degree tilt due to extensive symptoms nausea weakness and lightheadedness at patient's request. - Systolic blood pressures decreased from 131 mmHg at start to 112 mmHg at end of tilt. - Diastolic blood pressures decreased from 78 mmHg at start to 59 mmHg at end of tilt. - Blood pressure upon return to supine position was 141/70 mmHg. - Heart rates increased from 78 bpm at start to 107 bpm at end of tilt. - Heart rate upon return to supine position was 83 bpm. - ECGs showed: normal sinus rhythm with myocardial changes but no arrhythmias, and QT prolongation at baseline, repeat tilt and recovery. - Patient signs/symptoms included: HOT, LIGHTHEADED, LIGHTHEADEDNESS, NAUSEA, SEE NOTE. - Overall: The test is diagnostic for accentuated postural tachycardia. The test is diagnostic for orthostatic hypotension. --- Neuro Autonomic Reflex W/O 09/16/2021 Heart rate response to deep breathing is normal via the mean heart rate range and the E:I ratio. Heart rate response to the Valsalva maneuver, as assessed by the Valsalva ratio, is reduced but the blood pressure responses to phase II and phase IV of the maneuver are intact. This is an abnormal cardiovascular autonomic test panel due to a reduced Valsalva ratio. This finding is nonspecific but is consistent with a cardiovagal abnormality. However, other tests of cardiovagal function, the heart rate response to deep breathing via the mean heart rate range method and E:Iratio are normal. There is no evidence of a significant cardiovascular adrenergic abnormality. --- QSART 09/16/2021 QSART responses at the left forearm, proximal leg, distal leg , and foot are normal. There is no evidence of a significant postganglionic sympathetic sudomotor abnormality like that seen in autonomic/small fiber neuropathy. --- Cardiac Event Monitor 12/24/2020-01/07/2021 Patient had a min HR of 56 bpm, max HR of 167 bpm, and avg HR of 79 bpm. Predominant underlying rhythm was Sinus Rhythm. 6 Supraventricular Tachycardia runs occurred, the run with the fastest interval lasting 4 beats with a max rate of 167 bpm, the longest lasting 16 beats with an avg rate of 137 bpm. Isolated SVEs were rare (<1.0%), SVE Couplets were rare (<1.0%), and SVE Triplets were rare (<1.0%). Isolated VEs were rare (<1.0%), VE Couplets were rare (<1.0%), and no VE Triplets were present. Patient triggered events / symptom notations correlated with sinus rhythm, sinus tachycardia --- ECHO 12/24/2020 CONCLUSIONS: - Exam indication: Hypertensive heart disease - The left ventricle is normal in size. Left ventricular systolic function is normal. EF = 69 5% (2D 4-ch.) - The right ventricle is normal in size. Right ventricular systolic function is normal. -No significant valvular abnormalities noted on the study - Exam was compared with the prior echocardiographic exam performed on 12/29/2017. No significantchange. --- Echo 07/18/2023 CONCLUSIONS: - Exam indication: Abnormal BP - The left ventricle is normal in size. Left ventricular systolic function is normal. EF = 68 5% (2D biplane) Normal left ventricular diastolic function. - The right ventricle is normal in size. Right ventricular systolic function is normal. - Tricuspid aortic valve, better visualized on prior echocardiogram. - Exam was compared with the prior echocardiographic exam performed on 12/24/2020. Mild AR seen today. --- Skin biopsy 02/01/2024 IMPRESSION: - There is a reduction of the epidermal fiber densities at both sites. This would be consistent with a small fiber sensory neuropathy. 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 Dyspnea on exertion Fatigue Tinnitus, Right Ear Sensory Hearing Loss, Bilateral Restless Legs Syndrome Postmenopausal Status Mixed Anxiety Depressive Disorder Diverticulitis Cough Chronic Pain Bruises Easily Type 2 Diabetes Mellitus With Peripheral Neuropathy (Hcc) Elevated Ast (Sgot) Dizziness Abnormal Weight Gain Chronic Bilateral Back Pain 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 Lumbar Radiculopathy Constipation PAST SURGICAL HISTORY Procedure Laterality Date ARTHROSCOPY KNEE DIAGNOSTIC W/WO SYNOVIAL BX SPX Left Arthroscopy, knee BIOPSY BREAST OPEN INCISIONAL 1998 needle localization right breast BIOPSY BREAST OPEN INCISIONAL 1996 right breast CARPAL TUNNEL right LAPS ABD PRTM&OMENTUM DX W/WO SPEC BR/WA SPX Laparoscopy PAST SURGICAL HISTORY OF 06/2023 Bilateral cataract surgery TOTAL ABDOMINAL HYSTERECT W/WO RMVL TUBE OVARY 1992 Social History Tobacco Use Smoking status: Never Smokeless tobacco: Never Vaping Use Vaping status: Never Used Substance Use Topics Alcohol use: Not Currently Drug use: No Comment: denies tx for drug/alcohol abuse in the past. family history includes Breast Cancer in an other family member; COPD in her father; Coronary Artery Disease in her father; Dementia in her brother and mother; No Known Problems in her brother and brother; Ovarian cancer in her maternal grandmother. EXAM: Exam is observational at best. General Appearance: well appearing, in no acute distress Mental status evaluation during the interview and examination showed normal level of consciousness,orientation, language, memory, praxis, and higher intellectual function Affect: Normal Speech: normal Cranial Nerves: III, IV, -EOMI: full. VII-face is symmetric without evidence of weakness. VIII-hearing intact. XII-tongue protrudes midline with normal movements. Review of studies: IMPRESSION/PLAN: (I95.1) Orthostatic hypotension (primary encounter diagnosis) (G62.9) Small fiber neuropathy 1. Orthostatic hypotension (I95.1) 2. Small fiber neuropathy (G62.9) - Skin biopsy results confirm small fiber neuropathy, likely secondary to diabetes mellitus. OH secondary to SFN. - Hemoglobin A1c is stable at 6.4%, with a downtrend observed; recent labs ordered last week to monitor glycemic control. Continue follow up with Endocrinology to continue management. - Last visit Fludrocortisone 0.1 mg once daily was increased to 0.1 mg PO BID which has led to improved symptoms with no recent episodes of syncope or falls. Limited lightheadedness. - Patient is maintaining adequate salt intake and engaging in regular exercise using a floor Ellipse machine for 30-60 minutes daily - Advised to increase fluid intake to approximately 60 ounces daily to support blood pressure stability - Recommended continuation of compression stockings and/or use of an abdominal binder to assist with venous return, especially during warmer weather. - Discussed the use of alpha-lipoic acid as a supplement to potentially slow the progression of neuropathy; provided information for [id number] purchase in after visit summary. - Referral to pain management for further evaluation and management of severe neuropathic pain in the feet. - Follow-up scheduled for 03/05/2025 at 10 AM. Attestation: I have reviewed the clinical details obtained and documented by SCOTT Keller and I have participated in the cali components. I discussed the case and the management plans with SCOTT Keller , and I fully agree with the recommendations as outlined above. Edits to the note are indicated by italics and the note reflects my input. My impression and recommendations were discussed at length with the patient (and family members, ifpresent). The patient and family (if present) voiced understanding to my recommendations. All questions were answered. The patient was provided with a detailed after visit summary highlighting my impression and recommendations. Dori Padilla PA-C I spent a total of 55 minutes on the date of the service which included preparing to see the patient, [id number] patient care, completing clinical documentation, obtaining and/or reviewing separately obtained history, performing a medically appropriate examination, counseling and educating the pat ient/family/caregiver, and ordering medications, tests, or procedures. Dori Padilla PA-C Neuromuscular Medicine [address] [place]. [address] Appointment: [phone] During our virtual visit encounter we discussed my concerns neurologically in terms of diagnosis, impact on health and activities of living, and addressed questions. I tried to reassure the patient and also address questions. I explained to the patient to call if any questions, to review results, and I want to see them return for neurological follow up as mychart as next steps of communication isagreed upon Patient verbalizes understanding and I have addressed concerns and questions at this visit Patient has my contacts, educational material provided, and my chart sign up. After visit summary discussed. 1. This office note has been dictated and may contain minor typographic errors that escaped review 2. The nursing staff and medical assistants are a major part of YOUR TREATMENT TEAM and will be handling your phone calls and inquiries, if any. Unless explicitly told otherwise at the time of your office visit, your study results and ensuing treatment plans will be discussed during your follow-up appointment. If you do not have a follow-up appointment and wish to discuss any issues directly withme, please feel free to obtain one. 3. It is my practice to not fill disability or any other insurance-related forms/documention. All of the office notes, study results, and other pertinent documentation generated as part of your evaluation will be available to you and to your Primary Care Physician (PCP). Use of this material to complete such forms will be at the discretion of your PCP/referring physician Answers submitted by the patient for this visit: Compass 31 (Submitted on 08/22/2024) In the past year, have you ever felt faint, dizzy, goofy , or had difficulty thinking soon after standing up from a sitting or lying position?: No In the past year, have you ever noticed color changes in your skin, such as red, white, or purple?:No In the past 5 years, what changes, if any, have occurred in your general body sweating?: I sweat somewhat more than I used to Do your eyes feel excessively dry? : Yes Does your mouth feel excessively dry? : Yes For the symptom of dry eyes or dry mouth that you have had for the longest period of time, is this symptom:: Getting somewhat worse In the past year, have you noticed any changes in how quickly you get full when eating a meal?: I haven't noticed any change In the past year, have you felt excessively full or persistently full (bloated feeling) after a meal?: Sometimes In the past year, have you vomited after a meal? : Never In the past year, have you had a cramping or colicky abdominal pain?: Sometimes In the past year, have you had any bouts of diarrhea?: Yes In the past year, have you been constipated? : Yes In the past year, have you ever lost control of your bladder function?: Never In the past year, have you had difficulty passing urine?: Never In the past year, have you had trouble completely emptying your bladder?: Occasionally In the past year, without sunglasses or tinted glasses, has bright light bothered your eyes?: Frequently In the past year, have you had trouble focusing your eyes?: Never Is this most troublesome symptom with your eyes (i.e. sensitivity to bright light or trouble focusing) getting:: Staying about the same (Submitted on 08/22/2024) How frequently does this occur?: Occasionally How severe are these bouts of diarrhea?: Mild Are your bouts with diarrhea getting:: Somewhat better (Submitted on 08/22/2024) How frequently are you constipated? : Constantly How severe are these episodes of constipation? : Moderate Is your constipation getting:: Somewhat worse (Submitted on 08/22/2024) How severe is this sensitivity to bright light?: Moderate documented in this [facility]-19-2025 NoteHNO ID: [id number] Author: DORI PADILLA PA-C Service: ? Author Type: Physician Quality Improvement Consultant Type: Progress Notes Filed: 08/27/2024 15:23 Note Text: [facility] Follow-Up VIRTUAL VISIT This is a virtual visit using [employer] Video Visit. It required patient-provider interaction for the medical decision making as documented below. I have communicated my name and active licensure. The patient's identity and physical location were verified at the time of this visit. Either the patient or their legal physician relations representative has been informed of the risks and benefits of -- and alternatives to -- treatment through a remote evaluation and consents to proceed with the evaluation remotely. Hola Douglas is a 79 year old female here today for a follow up. Last Visit 12/15/2023 Last Filed Values Date of Most Recent Assessment and Plan 12/15/23 Specialty Neuromuscular Assessment Hola Douglas is a 78 year old here today for follow up. 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 Seen initially for onset of symptoms ~2020, at which time she developed hypotension. She has a long standing history of poorly controlled DM2, and reports issues with diabetic neuropathy since ~2009. Reported occasional episodes of LOC preceded by feeling weak, tired, and lightheaded, able to lower to the ground. No seizure signs. Orthostatic vitals in the office at initial appointment demonstrating maximum SBP reduction 19 mmHg. And heart rate increase 18 bpm. EPS tilt in 2017 demonstrating blood pressures meeting criteria for mild POTS vs OH (maximum heart rate increase of 29 bpm and SBP reduction of 21 mmHg both at minute 34 of tiltm at which time testing was terminated due to symptoms). EPS tilt in 2021 with relatively stable BPs (maximum decrease SBP 12 mmHg, which recovered), with some tachycardia (maximum HR increase 35 bpm at minute 39). Most recent Echo 07/2023 demonstrating mild AR but otherwise WNL. Repeat tilt was ordered by cardiology and completed 12/14/2023. On most recent examination had sensory disturbance and LLE weakness disproportionate to R today, not clearly following dermatome. EMG completed 08/2023 and on my review consistent with PN vs lumbar radic L>R L4-5 >L5-S1. We discuss we will obtain skin biopsy to assess for SFN. Established with [facility], and MRI cervical and lumbar completed 11/2023, demonstrating L3-L4 mild-moderate canal stenosis and L foraminal stenosis, L4-L5 mild-moderate canal stenosis and bilateral foraminal stenosis, and L5-S1 L paracentral disc osteophye comlex with mass effect on the S1 nerve root, moderate-severe L foraminal stenosis. At that time also had some abnormal eye movements and postural instability, referred to [facility] who did not feel she had neurodegenerative parkinsonism. MRI brain 10/2023 demonstrating while matter disease. Reports in the interim worsened hypotension at home as well as increased feelings of imbalance and pre-syncope. No final tilt report available but remarks on SBP as low as 70s mmHg. She is hypotensive today while sitting with SBP 90s mmHg. Plan 1) Labs in 1 month (after starting increased fludrocortisone dose) 2) Skin biopsy 3) Increase fludrocortisone to 0.2 mg (2 tablets) daily in AM 4) Discuss cholesterol management with PCP or cardiology 5) Consider balance therapy when finished with PT for your back Today August 22, 2024 : Cardiology 12/2023: Supportive therapies, increasing florinef [facility] 03/2024: no evidence of parkinsonism, schdeuled for PT Spine Steve Wagoner, 07/2024; dx lumbar radiculopathy. Consult to spine surgery given - concern for interlaminar device Ongoing Symptoms: Still having shooting pains in her feet bilaterally feels better when with her socks off and nothing touching it. Associated numbness and her toes ache. Following podiatry. Denies any recent TLOC Denies lightheadedness. Had an injection in her lower back recently due to right sciatica pain from pain management. Still dealing with daily pain. Scheduled to meet with spine surgery. Start Cymbalta today for pain management Florinef - 0.2 mg daily. She has noticed an improvement in her symptoms since this increased dosage. She checks her blood pressure Denies recent TLOC episodes Current management of orthostatic condition Diet: no restrictions Exercise: doing floor pedaling exercises Water: 24 oz. Per day Salt: starting to incorporate into diet Stockings: yes, not daily. Current Medications for orthostatic condition Florinef 0.1 mg - taking (more content not included)...[id number] Instructions* Patient Instructions* Lorraine Oneill MD - 08/21/2024 3:52 PM EDT Increase Mounjaro to 10 mg daily. For constipation: Consider Fibercon and Miralax (as a combination therapy) Follow with your primary care provider for other possible options. Discuss with your primary care physician the use of Cymbalata for your foot pain (it could be takenalong with Lyrica if needed). documented in this encounterWilson Health2025 NoteHNO ID: [id number] Author: LORRAINE ONEILL MD Service: ? Author Type: Physician Type: Progress Notes Filed: 08/21/2024 16:57 Note Text: [facility] Endocrinology Department Today's Visit Information Reason for Visit: Diabetes Visit Type: Follow Up - Consultation Chief Complaint: Other CC Other: Patient is presenting for routine follow up. She is mainly concerned about her weight. She is now on Mounjaro 7.5 mg weekly, she has been on this dosage since June 25, 2024. She has no nausea, vomiting, no frequent defecation. She has constipation. She uses a stool softener, inadequately treated. She is no longer taking nateglinide. Patient noted no worsening of constipation with Mounjaro. Patient has regained 34 lb since July, (prior weight loss was contributed by illness, Flu). Patient has sciatica pain. She had steroid injections in June and again last week. Average 14 days blood glucose is 126 mg/dl (0.3 reading per day) Range of glucose levels is between 102- to 144 mg/dl Diabetes History Patient age (years) when first diagnosed with Diabetes: 61 Diabetes Type: DM Type 2 Diabetes Related Complications: Microvascular Microvascular Complications: Neuropathy, Nephropathy Neuropathy Details: Peripheral Nephropathy Details: CKD - Stage 3 Related Comorbidities: Hyperlipidemia, Other - Specify DM meds previously tried and discontinued: Metformin Specify Reason(s) for discontinuation: diarrrhea Insulin Treatment was: Never used Nutrition/Diet Summary Patient Current Diet: Other - Specify Specify Diet: She is following with dietitian Number of Meals per day: Three Number of Snacks per day/week: Per Day - Specify Number of snacks per day - Specify: 2 Exercise Summary Patient exercise routine: Other - Specify Exercise routine - Specify: Sciatica pain. Blood Glucose (BG) Monitoring Monitoring Frequency: Per week - Specify Weekly Monitoring - Specify: 2 Blood Glucose Summary/Pattern CGM Summary Patient Uses Personal CGM: No Current issues with Glycemic Control Primary problem(s) patient has with glycemic control include(s): No significant problem, No Hypoglycemia Dilated Retinal Exam Dilated Retinal Exam: Other - Specify Dilated Retinal Exam - Specify: She had cataract surgery around Feb, 2024, she is going to have a dilated eye exam after removing the second cataract. Pertinent ROS Patient reports Polyuria: No Patient reports Nocturia: Yes (Comment: She was seen by urology earlier today) Nocturia details (per night): 2 Patient reports Polydipsia: No Patient reports excess hunger: No Weight loss/gain: Non Intentional weight gain Current Medications 08/21/2024 DIABETES THERAPIES Medication Dosage Pharm Subclass tirzepatide (MOUNJARO) 7.5 mg/0.5 mL pen injector Inject 7.5 mg subcutaneously one time a week. Antihyperglycemic - Dual GIP and GLP-1 Receptor Agonists CARDIOVASCULAR Medication Dosage Pharm Subclass pravastatin (PRAVACHOL) 10 mg tablet Take 1 tablet by mouth once daily. Antihyperlipidemic - HMG CoA Reductase Inhibitors (statins) OTHER Medication Dosage Pharm Subclass blood sugar diagnostic (TRUE METRIX GLUCOSE TEST STRIP) test strip Use with blood glucose test once daily Medical Supplies and DME - Blood Glucose Tests Blood-Glucose Meter (TRUE METRIX GLUCOSE METER) 1 Each once daily. Medical Supplies and DME - Glucose Monitoring Test Supplies Blood-Glucose Sensor ([employer]urn[employer] G7 SENSOR) nimesh Change sensor every 10 days. Medical Supplies and DME - Glucose Monitoring Test Supplies calcium carbonate 600 mg-cholecalciferol 200 units (CALCIUM 600 + D,3,) 600 mg(1,500mg) -200 unit tab Take 1 tablet by mouth once daily. Minerals and Electrolytes - Calcium Replacement/Vitamin D Combinations clonazePAM (KLONOPIN) 0.5 mg tablet Take 1 tablet by mouth as needed. For restless leg syndrome Antianxiety Agent - Benzodiazepines ergocalciferol 50,000 unit capsule (VITAMIN D2, DRISDOL) TAKE 1 CAPSULE ONE TIME WEEKLY Vitamins - D Derivatives fludrocortisone (FLORINEF) 0.1 mg tablet Take 2 tablets by mouth once daily. Mineralocorticoids fluticasone (FLONASE) 50 mcg/actuation nasal spray Use 2 Sprays in each nostril twice daily. Nasal Corticosteroids lancets (TRUEPLUS LANCETS) 33 gauge Use with blood glucose test once daily Medical Supplies and DME - Glucose Monitoring Test Supplies loratadine (CLARITIN) 10 mg tablet Take 10 mg by mouth once daily. Antihistamines - 2nd Generation MULTIVITAMIN (MULTI-DAY ORAL) Take by mouth once daily. Multivitamins pen needle, diabetic (COMFORT EZ PEN NEEDLES) 33 gauge x 5/16 ndle To inject weekly Medical Supplies and DME - Insulin [place] Admin Supplies LABS Creatinine (mg/dL) Date Value 07/23/2024 1.06 2021 1.08 Hemoglobin A1C (%) Date Value 07/23/2024 6.4 2021 6.7 Hemoglobin A1C (POCT) (%) Date Value 01/19/2024 6.8 Albumin, U (more content not included)...[id number] History of Present illness Narrative* Lorraine Oneill MD - 08/21/2024 2:47 PM EDT [facility] Endocrinology Department Today's Visit Information Reason for Visit: Diabetes Visit Type: Follow Up - Consultation Chief Complaint: Other CC Other: Patient is presenting for routine follow up. She is mainly concerned about her weight. She is now on Mounjaro 7.5 mg weekly, she has been on this dosage since June 25, 2024. She has no nausea, vomiting, no frequent defecation. She has constipation. She uses a stool softener, inadequately treated. She is no longer taking nateglinide. Patient noted no worsening of constipation with Mounjaro. Patient has regained 34 lb since July, (prior weight loss was contributed by illness, Flu). Patient has sciatica pain. She had steroid injections in June and again last week. Average 14 days blood glucose is 126 mg/dl (0.3 reading per day) Range of glucose levels is between 102- to 144 mg/dl Diabetes History Patient age (years) when first diagnosed with Diabetes: 61 Diabetes Type: DM Type 2 Diabetes Related Complications: Microvascular Microvascular Complications: Neuropathy, Nephropathy Neuropathy Details: Peripheral Nephropathy Details: CKD - Stage 3 Related Comorbidities: Hyperlipidemia, Other - Specify DM meds previously tried and discontinued: Metformin Specify Reason(s) for discontinuation: diarrrhea Insulin Treatment was: Never used Nutrition/Diet Summary Patient Current Diet: Other - Specify Specify Diet: She is following with dietitian Number of Meals per day: Three Number of Snacks per day/week: Per Day - Specify Number of snacks per day - Specify: 2 Exercise Summary Patient exercise routine: Other - Specify Exercise routine - Specify: Sciatica pain. Blood Glucose (BG) Monitoring Monitoring Frequency: Per week - Specify Weekly Monitoring - Specify: 2 Blood Glucose Summary/Pattern CGM Summary Patient Uses Personal CGM: No Current issues with Glycemic Control Primary problem(s) patient has with glycemic control include(s): No significant problem, No Hypoglycemia Dilated Retinal Exam Dilated Retinal Exam: Other - Specify Dilated Retinal Exam - Specify: She had cataract surgery around Feb, 2024, she is going to have a dilated eye exam after removing the second cataract. Pertinent ROS Patient reports Polyuria: No Patient reports Nocturia: Yes (Comment: She was seen by urology earlier today) Nocturia details (per night): 2 Patient reports Polydipsia: No Patient reports excess hunger: No Weight loss/gain: Non Intentional weight gain Current Medications 08/21/2024 DIABETES THERAPIES Medication Dosage Pharm Subclass tirzepatide (MOUNJARO) 7.5 mg/0.5 mL pen injector Inject 7.5 mg subcutaneously one time a week. Antihyperglycemic - Dual GIP and GLP-1 Receptor Agonists CARDIOVASCULAR Medication Dosage Pharm Subclass pravastatin (PRAVACHOL) 10 mg tablet Take 1 tablet by mouth once daily. Antihyperlipidemic - HMG CoA Reductase Inhibitors (statins) OTHER Medication Dosage Pharm Subclass blood sugar diagnostic (TRUE METRIX GLUCOSE TEST STRIP) test strip Use with blood glucose test oncedaily Medical Supplies and DME - Blood Glucose Tests Blood-Glucose Meter (TRUE METRIX GLUCOSE METER) 1 Each once daily. Medical Supplies and DME - Glucose Monitoring Test Supplies Blood-Glucose Sensor ([employer]urn[employer] G7 SENSOR) nimesh Change sensor every 10 days. Medical Supplies and DME - Glucose Monitoring Test Supplies calcium carbonate 600 mg-cholecalciferol 200 units (CALCIUM 600 + D,3,) 600 mg(1,500mg) -200 unit tab Take 1 tablet by mouth once daily. Minerals and Electrolytes - Calcium Replacement/Vitamin D Combinations clonazePAM (KLONOPIN) 0.5 mg tablet Take 1 tablet by mouth as needed. For restless leg syndrome Antianxiety Agent - Benzodiazepines ergocalciferol 50,000 unit capsule (VITAMIN D2, DRISDOL) TAKE 1 CAPSULE ONE TIME WEEKLY Vitamins - D Derivatives fludrocortisone (FLORINEF) 0.1 mg tablet Take 2 tablets by mouth once daily. Mineralocorticoids fluticasone (FLONASE) 50 mcg/actuation nasal spray Use 2 Sprays in each nostril twice daily. Nasal Corticosteroids lancets (TRUEPLUS LANCETS) 33 gauge Use with blood glucose test once daily Medical Supplies and DME- Glucose Monitoring Test Supplies loratadine (CLARITIN) 10 mg tablet Take 10 mg by mouth once daily. Antihistamines - 2nd Generation MULTIVITAMIN (MULTI-DAY ORAL) Take by mouth once daily. Multivitamins pen needle, diabetic (COMFORT EZ PEN NEEDLES) 33 gauge x 5/16 ndle To inject weekly Medical Supplies and DME - Insulin [place]ringes [facility] Admin Supplies LABS Creatinine (mg/dL) Date Value 07/23/2024 1.06 2021 1.08 Hemoglobin A1C (%) Date Value 07/23/2024 6.4 2021 6.7 Hemoglobin A1C (POCT) (%) Date Value 01/19/2024 6.8 Albumin, Urine Random (mg/L) Date Value 07/23/2024 17.4 2021 <12.0 Cholesterol, Total (mg/dL) Date Value 07/23/2024 162 2021 178 HDL Cholesterol (mg/dL) Date Value 07/23/2024 38 2021 53 LDL Cholesterol, Calculated (mg/dL) Date Value 07/23/2024 97 2021 100 Triglyceride (mg/dL) Date Value 07/23/2024 137 2021 124 PAST MEDICAL HISTORY Diagnosis Date Carpal tunnel syndrome Diverticulosis of colon (without mention of hemorrhage) Hypotension Localized osteoarthrosis not specified whether primary or secondary, hand Mastodynia Other chronic sinusitis Type II or unspecified type diabetes mellitus without mention of complication, uncontrolled Vertigo Current workup PAST SURGICAL HISTORY Procedure Laterality Date ARTHROSCOPY KNEE DIAGNOSTIC W/WO SYNOVIAL BX SPX Left Arthroscopy, knee BIOPSY BREAST OPEN INCISIONAL 1998 needle localization right breast BIOPSY BREAST OPEN INCISIONAL 1996 right breast CARPAL TUNNEL right LAPS ABD PRTM&OMENTUM DX W/WO SPEC BR/WA SPX Laparoscopy PAST SURGICAL HISTORY OF 06/2023 Bilateral cataract surgery TOTAL ABDOMINAL HYSTERECT W/WO RMVL TUBE OVARY 1992 Social History Tobacco Use Smoking status: Never Smokeless tobacco: Never Vaping Use Vaping status: Never Used Substance Use Topics Alcohol use: Not Currently Drug use: No Comment: denies tx for drug/alcohol abuse in the past. FAMILY HISTORY Problem Relation Age of Onset Dementia Mother Coronary Artery Disease Father COPD Father No Known Problems Brother Dementia Brother No Known Problems Brother Ovarian cancer Maternal Grandmother Breast Cancer Other no known family h/o breast cancer ALLERGIES Allergen Reactions Asa [Salicylates] causes platelet disfunction Aspirin Unknown, Other: See Comments Levaquin [Levofloxa* Rash, Other: See Comments Per pt feels like she on fire Avelox [Moxifloxaci* Intolerance C/O burning feeling on skin REVIEW OF SYSTEMS Review of Systems Constitutional: Negative for night sweats and recent unintentional weight change. Eyes: Negative for visual disturbance. Respiratory: Negative for difficulty breathing. Cardiovascular: Negative for chest pain and leg swelling. Gastrointestinal: Negative for nausea and diarrhea. Musculoskeletal: Negative for myalgias. Neurological: Negative for dizziness and headaches. Answers submitted by the patient for this visit: Core Review of Systems (Submitted on 06/19/2024) Fever : No Nasal Congestion: Yes Hearing Loss: No A cough: Yes Irregular heartbeat: No Black tarry stools: No Difficulty Urinating?: No Awaken at Night More Than Once to Urinate?: Yes Joint pain or stiffness: No A rash: No Memory Loss: No Seizures: No PHYSICAL EXAM: Vital Signs BP 110/74 Pulse 80 Wt 88 kg (194 lb 0.1 oz) BMI 29.50 kg/m Physical Exam Constitutional: Appearance: She is not ill-appearing or diaphoretic. Eyes: Conjunctiva/sclera: Conjunctivae normal. Neck: Thyroid: No thyromegaly or thyroid tenderness. Vascular: No carotid bruit. Cardiovascular: Rate and Rhythm: Normal rate and regular rhythm. Pulses: Dorsalis pedis pulses are 2+ on the right side and 2+ on the left side. Heart sounds: No murmur heard. No gallop. Comments: Trace edema in LE, uses compressive stocking. Musculoskeletal: Right lower leg: No edema. Left lower leg: No edema. Right foot: Deformity (High arch and toes deformities) present. Left foot: Deformity (High arch and toes deformities) present. Feet: Right foot: Skin integrity: Callus present. No ulcer or dry skin. Toenail Condition: Fungal disease present. Left foot: Skin integrity: Callus present. No ulcer or dry skin. Toenail Condition: Left toenails are normal. Comments: Onychomycosis in right second toe. Bilateral great toenails were removed surgically. Vibration sensation is moderately decreased in right great toe and absent in the left great toe. Lymphadenopathy: Cervical: No cervical adenopathy. Neurological: Mental Status: She is alert. DATA Diagnostic tests reviewed for today's visit: Most recent labs Impression and Plan Diabetes type (Diagnosis): DM Type 2 Adequacy of Glycemic Control: Without hypoglycemia, Adequate (Comment: Based on A1c. Otherswise, home glucose levels are higher with inadequate monitoring) Adequate Glycemic Control status: Improved Patient advised to contact the office if blood sugar readings are consistently high or if they are having frequent hypoglycemia: Yes Recommended Diet: Mediterranean, Other - Specify Recommended Diet - Specify: Patient is following with dietitian. Recommended Glucose Monitoring: Once a day, Other-Specify Glucose Monitoring - Specify: Frequent monitoring after her spinal steroid injection is recommended, at least in AM and HS. Glucose Monitoring before driving: Not applicable Diabetic Therapy Medication Changes: One (1) change made today - Specify Single DM Medication Change Today: Increase Mounjaro to 10 mg weekly. Additional DM Medication Information: Dosage of Mounjaro is increased because of weight regain. Sheshould ensure adequate treatment of constipation. Of note, weight regain is contributed by steroid therapy and Lyrica. Lipid Status: Mixed hyperlipidemia, On Statin LDL Goal: < 100 mg/dL Adequacy of Lipid Control: Adequate Lipid Medication Changes: No changes made today Blood Pressure Status: Other - Specify Blood Pressure Status - Specify: Hypotension Additional BP Medication Information: On treatment with Keddie-f by another provider. Weight Status: Overweight Complications: Microvascular Microvascular Complications: Neuropathy, Nephropathy Neuropathy Details: Peripheral, Radicular (Comment: Radicular neuropathy seems to be contributing) Nephropathy Details: CKD - Stage 3 Microvascular Complications Status: Stable, Other - Specify Microvascular Status (Other) - Specify: stable creatinine, last done in July 2024. Foot care was discussed today: Yes Related Comorbidities: Hyperlipidemia Other Conditions Addressed Today: # Constipation: Consider Fibercon and Miralax. Last colonoscopy was 2 years ago. Follow up with PCP for other possible treatment options # See lab orders. Patient expressed understanding and agreed with plan. Patient to continue to follow up with her PCP and with other consultants regarding her other medical problems. Next visit in 6 months, with Endocrinology Nurse Practitioner and in one year with me . I spent a total of 48 minutes on the date of the service which included preparing to see the patient, eoiz-yc-rrvq patient care, completing clinical documentation, obtaining and/or reviewing separately obtained history, performing a medically appropriate examination, counseling and educating the pat ient/family/caregiver, and ordering medications, tests, or procedures. SIGNATURE Lorraine Oneill MD August 21, 2024 documented in this encounterWilson Health[facility] Hospital Discharge instructions Patient Education 08/21/2024 10:05:35 Urethral Dilation Urethral Dilation Urethral dilation is a procedure to stretch open (dilate) the urethra. The urethra is the tube thatdrains pee (urine) from the bladder out of the body. In females, the urethra opens above the vaginal opening. In males, the urethra opens at the tip of the penis. Urethral dilation is usually done to treat narrowing of the urethra (urethral stricture), which canmake it difficult to pee (urinate). Urethral strictures can be caused by scar tissue, infection, injury, or surgery. Urethral dilation widens the urethra so that you can pee normally. Urethral dilation is done through the opening of the urethra. There are no incisions made during the procedure. Tell a health care provider about: Any allergies you have. All medicines you are taking, including vitamins, herbs, eye drops, creams, and zmie-yxp-bjoqnht medicines. Any problems you or family members have had with anesthesia. Any bleeding problems you have. Any surgeries you have had. Any medical conditions you have. Whether you are or may be . What are the risks? Your health care provider will talk with you about risks. These may include: Bleeding. Infection. A return of urethral stricture, which requires repeating the dilation procedure or more surgery. Damage to the urethra, which may require reconstructive surgery. Allergic reactions to medicines. What happens before the procedure? Medicines Ask your provider about: Changing or stopping your regular medicines. These include any diabetes medicines or blood thinnersyou take. Taking medicines such as aspirin and ibuprofen. These medicines can thin your blood. Do not take them unless your provider tells you to. Taking kcyd-swk-wxzfroq medicines, vitamins, herbs, and supplements. General instructions Follow instructions from your provider about what you may eat and drink. If you will be going home right after the procedure, plan to have a responsible adult: ?Take you home from the hospital or clinic. You will not be allowed to drive. ?Care for you for the time you are told. Ask your provider: ?How your surgery site will be marked. ?What steps will be taken to help prevent infection. These steps may include: ?Removing hair at the surgery site. ?Washing skin with a soap that kills germs. ?Taking antibiotics. What happens during the procedure? An IV may be inserted into one of your veins. You may be given: ?A local anesthetic to numb your urethral opening. This will be applied as a gel that will also lubricate the opening of the urethra. ?A sedative. This helps you relax. ?Anesthesia. This keeps you from feeling pain. It will make you fall asleep for surgery. A thin tube with a light and camera on the end (cystoscope) will be inserted into your urethra. Your urethra will be rinsed (irrigated) with a germ-free (sterile) water solution. Narrow parts of your urethra will be stretched open using a dilator tool. Your surgeon will start with a very thin dilator, then use wider dilators as needed. A thin tube with an inflatable balloon on the tip may be inserted into your urethra. The balloon may be inflated to help stretch your urethra open. The balloon may be coated with a medicine to help the urethra stay open longer. Your urethra will be irrigated. A catheter will be inserted into your bladder at the end of the procedure. The procedure may vary among providers and hospitals. What happens after the procedure? After the procedure, it is common to have: ?Burning pain when peeing. ?Blood in your pee. ?A need to pee frequently. You will be asked to pee before you leave the hospital or clinic. Your pee flow should improve within a few days. You may have a catheter in your bladder for 2 3 days following your procedure. Follow these instructions at home: Medicines Take adha-ryi-umdvpfc and prescription medicines only as told by your provider. If you were prescribed antibiotics, take them as told by your provider. Do not stop using the antibiotic even if you start to feel better. Ask your provider if the medicine prescribed to you: ?Requires you to avoid driving or using machinery. ?Can cause constipation. You may need to take these actions to prevent or treat constipation: ?Take yilh-gjk-ecmacbh or prescription medicines. ?Eat foods that are high in fiber, such as beans, whole grains, and fresh fruits and vegetables. ?Limit foods that are high in fat and processed sugars, such as fried or sweet foods. General instructions If you were given a sedative during the procedure, it can affect you for several hours. Do not drive or operate machinery until your provider says that it is safe. If you were sent home with a soft tube (catheter) to help keep your urethra open, follow your provider's instructions about how and when to use it. Drink enough fluid to keep your pee pale yellow. Return to your normal activities as told by your provider. Ask your provider what activities are safe for you. Keep all follow-up visits. Your provider will check your healing and adjust your treatment plan as needed. Contact a health care provider if: Your pee is cloudy and smells bad. You develop new bleeding when you pee. You pass blood clots when you pee. You have pain that does not get better with medicine. You have a fever. Your genital area is swollen, bruised, or discolored. This includes: ?The penis, scrotum, and inner thighs for males. ?The outer genital organs (vulva) and inner thighs for females. Get help right away if: You develop new bleeding that does not stop. You cannot pee. Your catheter stops draining pee. You cannot pee after your catheter is removed. These symptoms may be an emergency. Get help right away. Call 911. Do not wait to see if the symptoms will go away. Do not drive yourself to the hospital. This information is not intended to replace advice given to you by your health care provider. Make sure you discuss any questions you have with your health care provider. Document Revised: 01/20/2023 Document Reviewed: 01/20/2023 Elsevier Patient Education 2023 [employer]. Follow Up Care 08/09/2024 12:40:26 With:HIRO BRICENO, Ryan Holland, URL Address: Kala ARNOLD [address] [place] [id number] When: Unknown [facility] 2025 NotePatient Education Urology Urethral Dilation Urethral dilation is a procedure to stretch open (dilate) the urethra. The urethra is the tube thatdrains pee (urine) from the bladder out of the body. In females, the urethra opens above the vaginal opening. In males, the urethra opens at the tip of the penis. Urethral dilation is usually done to treat narrowing of the urethra (urethral stricture), which canmake it difficult to pee (urinate). Urethral strictures can be caused by scar tissue, infection, injury, or surgery. Urethral dilation widens the urethra so that you can pee normally. Urethral dilation is done through the opening of the urethra. There are no incisions made during the procedure. Tell a health care provider about: ??? Any allergies you have. ??? All medicines you are taking, including vitamins, herbs, eye drops, creams, and oyei-pkk-nckqljj medicines. ??? Any problems you or family members have had with anesthesia. ??? Any bleeding problems you have. ??? Any surgeries you have had. ??? Any medical conditions you have. ??? Whether you are or may be . What are the risks? Your health care provider will talk with you about risks. These may include: ??? Bleeding. ??? Infection. ??? A return of urethral stricture, which requires repeating the dilation procedure or more surgery. ??? Damage to the urethra, which may require reconstructive surgery. ??? Allergic reactions to medicines. What happens before the procedure? Medicines Ask your provider about: ??? Changing or stopping your regular medicines. These include any diabetes medicines or blood thinners you take. ??? Taking medicines such as aspirin and ibuprofen. These medicines can thin your blood. Do not take them unless your provider tells you to. ??? Taking iujm-nom-bcyzamq medicines, vitamins, herbs, and supplements. General instructions ??? Follow instructions from your provider about what you may eat and drink. ??? If you will be going home right after the procedure, plan to have a responsible adult: ? Take you home from the hospital or clinic. You will not be allowed to drive. ? Care for you for the time you are told. ??? Ask your provider: ? How your surgery site will be marked. ? What steps will be taken to help prevent infection. These steps may include: ? Removing hair at the surgery site. ? Washing skin with a soap that kills germs. ? Taking antibiotics. What happens during the procedure? An IV may be inserted into one of your veins. ??? You may be given: ? A local anesthetic to numb your urethral opening. This will be applied as a gel that will also lubricate the opening of the urethra. ? A sedative. This helps you relax. ? Anesthesia. This keeps you from feeling pain. It will make you fall asleep for surgery. ??? A thin tube with a light and camera on the end (cystoscope) will be inserted into your urethra. ??? Your urethra will be rinsed (irrigated) with a germ-free (sterile) water solution. ??? Narrow parts of your urethra will be stretched open using a dilator tool. Your surgeon will start with a very thin dilator, then use wider dilators as needed. ??? A thin tube with an inflatable balloon on the tip may be inserted into your urethra. The balloon may be inflated to help stretch your urethra open. The balloon may be coated with a medicine to help the urethra stay open longer. ??? Your urethra will be irrigated. ??? A catheter will be inserted into your bladder at the end of the procedure. The procedure may vary among providers and hospitals. What happens after the procedure? After the procedure, it is common to have: ? Burning pain when peeing. ? Blood in your pee. ? A need to pee frequently. ??? You will be asked to pee before you leave the hospital or clinic. ??? Your pee flow should improve within a few days. ??? You may have a catheter in your bladder for 2?3 days following your procedure. Follow these instructions at home: Medicines ??? Take ylpe-jse-uhkknxv and prescription medicines only as told by your provider. ??? If you were prescribed antibiotics, take them as told by your provider. Do not stop using the antibiotic even if you start to feel better. ??? Ask your provider if the medicine prescribed to you: ? Requires you to avoid driving or using machinery. ? Can cause constipation. You may need to take these actions to prevent or treat constipation: ? Take ocrl-vce-nptjude or prescription medicines. ? Eat foods that are high in fiber, such as beans, whole grains, and fresh fruits and vegetables. ? Limit foods that are high in fat and processed sugars, such as fried or sweet foods. General instructions ??? If you were given a sedative during the procedure, it can affect you for several hours. Do not drive or operate machinery until your provider says that it is safe. ??? If you were sent home with a soft tube (catheter) (more content not included)...[facility]05-08-2025 Telephone encounter Note* Telephone Encounter - Sofiya Haynes LPN - 08/16/2024 6:15 PM EDT Post Spine Injection phone call: 08/16/24 Patient denies fever, chills, new headache, prolonged numbness nor exacerbation of pain status. Injection site(s) flat and dry with no redness nor drainage. Pre Procedure Pain level: 3, but can get to 8 Immediately Post Procedure 1-2 Pain level today 1 (0 = none - 10 = extreme) Percentage of pain relief: 90% Blood Glucose monitoring: patient states she has not checked her sugars today August 16, 2024 Patient encouraged to monitor blood glucose for next 24 -48 for elevations. Patient verbalized understanding that it may take up to 14 days to realize full benefit of spinal injection. Patient is scheduled with Dr. Wagoner on 09/11/24. Patient reminded to bring pain diary to follow appointment. Patient does not have any questions or concerns. Patient will call office with any questions or concerns. [facility]05-08-2025 Miscellaneous Notes* Telephone Encounter - Sofiya Haynes LPN - 08/16/2024 6:15 PM EDT Post Spine Injection phone call: 08/16/24 Patient denies fever, chills, new headache, prolonged numbness nor exacerbation of pain status. Injection site(s) flat and dry with no redness nor drainage. Pre Procedure Pain level: 3, but can get to 8 Immediately Post Procedure 1-2 Pain level today 1 (0 = none - 10 = extreme) Percentage of pain relief: 90% Blood Glucose monitoring: patient states she has not checked her sugars today August 16, 2024 Patient encouraged to monitor blood glucose for next 24 -48 for elevations. Patient verbalized understanding that it may take up to 14 days to realize full benefit of spinal injection. Patient is scheduled with Dr. Wagoner on 09/11/24. Patient reminded to bring pain diary to follow appointment. Patient does not have any questions or concerns. Patient will call office with any questions or concerns. documented in this encounterWilson Health04-22-2025 Telephone encounter Note * Telephone Encounter - Sofiya Haynes LPN - 07/31/2024 11:58 AM EDT [employer] message sent to patient with Procedure Instructions. [facility]04-22-2025 Miscellaneous Notes* Telephone Encounter - Sofiya Haynes LPN - 07/31/2024 11:58 AM EDT [employer] message sent to patient with Procedure Instructions. documented in this encounterWilson Health04-08-2025 Telephone encounter Note * Telephone Encounter - Vijaya Borrego RN - 07/17/2024 8:44 AM EDT Please see patient's message and advise. AVE: 06/25/2024 Next visit: 08/21/2024 Thank you! Maggy Borrego RN [facility]04-08-2025 Miscellaneous Notes* Telephone Encounter - Vijaya Borrego RN - 07/17/2024 8:44 AM EDT Please see patient's message and advise. AVE: 06/25/2024 Next visit: 08/21/2024 Thank you! Maggy Borrego RN documented in this encounterWilson Health04-04-2025 Telephone encounter Note * Telephone Encounter - Mili Handy LPN - 07/13/2024 2:19 PM EDT Continuous glucose monitoring supplies order form received from [employer]. Form placed in Dr. Gonzalez for review. [facility]04-04-2025 Miscellaneous Notes* Telephone Encounter - Mili Handy LPN - 07/13/2024 2:19 PM EDT Continuous glucose monitoring supplies order form received from [employer]. Form placed in Dr. Gonzalez for review. documented in this encounterWilson Health04-03-2025 Note* Addendum Note - Steve Wagoner MD - 07/12/2024 11:57 AM EDTAddended by: STEVE WAGONER on: 07/12/2024 11:57 AM Modules accepted: Orders [facility]04-03-2025 Miscellaneous Notes* Addendum Note - Steve Wagoner MD - 07/12/2024 11:57 AM EDTAddended by: STEVE WAGONER on: 07/12/2024 11:57 AM Modules accepted: Orders documented in this encounterWilson Health04-03-2025 NoteHNO ID: [id number] Author: STEVE WAGONER MD Service: ? Author Type: Physician Type: Progress Notes Filed: 07/12/2024 11:57 Note Text: [facility] Virtual Established Visit I have communicated my name and active licensure. The patient's identity and physical location were verified at the time of this visit. Either the patient or their legal physician relations representative has been informed of the risks and benefits of -- and alternatives to -- treatment through a remote evaluation and consents to proceed with the evaluation remotely. Last Visit: 03/01/2024, virtual visit CC: low back pain and lower extremity pain HPI: Hola Douglas is a pleasant 79 year old female seen in follow-up for chronic lumbar issues, LSS. Patient was last seen on 03/01/2024. Please refer to that note for additional details. S/p R L4-5 TFESI-06/26, prior was 01/2024. No benefit. Notes the prior to the ANGELA was going to the lateral leg into the dorsum of the foot but main pain is lateral thigh to the knee. Denies numbness/tingling. Continues to be aggravated with transition-sit to stand, walking bothersome. Needs to rest and stop at times. R LE>low back pain. Prior interventions- R SI joint injection, Dr. Oleary 09/19/2023-no benefit . B SI joint injection 06/08/2023-helped. Lumbar RFAB L4/5 and L5/S1 04/20/2023 which helped and continues to help Does HEP-not much benefit Off of gabapentin Taking lyrica-helping a little more-150 mg tid, 2-3 weeks Was seeing pain management. Pain is a 7/10. Best 310-more at rest Patient Entered Questionnaires 01/13/2024 02/28/2024 07/06/2024 Spine Questions Pain Location: Leg Lower back Leg Pain Duration: 6 months - 1 year Pain over last 6 months: Every day or nearly every day in the past 6 months Symptoms from neck/cervical spine: No Yes Yes Employment Status: Retired Retired 11/26/2023 02/28/202407/0607/06/2024 Spine Red Flags Any type of cancer: No No No Unexplained fever: No No No Bowel or bladder disfunction: No No No Unintentional weight loss: No No No Osteoporosis: No No No 02/28/2024 07/06/2024 Neck Questionnaires Benzel Modified DELANO Score Incomplete 14 (Moderate Myelopathy Symptoms) PROMIS Score Percentiles 01/13/2024 02/28/2024 07/06/2024 Physical Health Physical Function Percentile 4 7 5 Sleep Percentile 34 34 21* Fatigue Percentile 18* 14 18* Pain Interference Percentile 7 5 5 01/13/2024 02/28/2024 07/06/2024 PROMIS SOCIAL ROLE SCORE Social Role Satisfaction Percentile 7 8 24* 10/19/2023 01/13/2024 06/19/2024 PROMIS Global Health Scale Physical Health Percentile 22* 7 22* Mental Health Percentile 19* 34 43 Patient-reported Percentiles provide an indication of how the patient's score ranks in relation to the general population. Higher percentile rankings indicate better function/quality of life. 50th percentile is the average of the general population and indicates half of respondents had a worse score. Depression Screenin02/28/2024 03/14/2024 07/06/2024 PHQ-9 Score 5 6 9 02/28/2024 03/14/2024 07/06/2024 PHQ-9 Self-harm Question Question 9 Not at all Not at all Not at all PHQ-9 Self-Harm (Item 9) response options: 0 Not at all 1 Several days 2 More than half the days 3 Nearly every day PHQ-9 Levels: 0-4 No - mild depression 5-9 Mild depression 10-14 Moderate depression 15-19 Moderately severe depression 20-27 Severe depression ALLERGIES Allergen Reactions Asa [Salicylates] causes platelet disfunction Aspirin Unknown, Other: See Comments Levaquin [Levofloxa* Rash, Other: See Comments Per pt feels like she on fire Avelox [Moxifloxaci* Intolerance C/O burning feeling on skin Current Outpatient Medications Medication Sig nateglinide (STARLIX) 60 mg tablet Take 1 tablet by mouth three times a day before meals for 4 days. Start after your steroid injection. tirzepatide (MOUNJARO) 7.5 mg/0.5 mL pen injector Inject 7.5 mg subcutaneously one time a week. Blood-Glucose Sensor ([employer] G7 SENSOR) nimesh Change sensor every 10 days. fludrocortisone (FLORINEF) 0.1 mg tablet Take 2 tablets by mouth once daily. lancets (TRUEPLUS LANCETS) 33 gauge Use with blood glucose test once daily pravastatin (PRAVACHOL) 10 mg tablet Take 1 tablet by mouth once daily. blood sugar diagnostic (TRUE METRIX GLUCOSE TEST STRIP) test strip Use with blood glucose test once daily Blood-Glucose Meter (TRUE METRIX GLUCOSE METER) 1 Each once daily. ergocalciferol 50,000 unit capsule (VITAMIN D2, DRISDOL) TAKE 1 CAPSULE ONE TIME WEEKLY clonazePAM (KLONOPIN) 0.5 mg tablet Take 1 tablet by mouth as needed. For restless leg syndrome loratadine (CLARITIN) 10 mg tablet Take 10 mg by mouth once daily. fluticasone (FLONASE) 50 mcg/actuation nasal spray Use 2 Sprays in each nostril twice daily. pen needle, diabetic (COMFORT EZ PEN NEEDLES) 33 gauge x 5/16 ndle To inject weekly MULTIVI (more content not included)...[facility]04-03-2025 History of Present illness Narrative* Steve Wagoner MD - 07/12/2024 9:39 AM EDT Images from the original note were not included. [facility] Virtual Established Visit I have communicated my name and active licensure. The patient's identity and physical location wereverified at the time of this visit. Either the patient or their legal physician relations representative has been informed of the risks and benefits of -- and alternatives to -- treatment through a remote evaluation andconsents to proceed with the evaluation remotely. Last Visit: 03/01/2024, virtual visit CC: low back pain and lower extremity pain HPI: Hola Douglas is a pleasant 79 year old female seen in follow-up for chronic lumbar issues, LSS. Patient was last seen on 03/01/2024. Please refer to that note for additional details. S/p R L4-5 TFESI-06/26, prior was 01/2024. No benefit. Notes the prior to the ANGELA was going to thelateral leg into the dorsum of the foot but main pain is lateral thigh to the knee. Denies numbness/tingling. Continues to be aggravated with transition-sit to stand, walking bothersome. Needs to rest and stop at times. R LE>low back pain. Prior interventions- R SI joint injection, Dr. Oleary 09/19/2023-no benefit . B SI joint injection 06/08/2023-helped. Lumbar RFAB L4/5 and L5/S1 04/20/2023 which helped and continues to help Does HEP-not much benefit Off of gabapentin Taking lyrica-helping a little more-150 mg tid, 2-3 weeks Was seeing pain management. Pain is a 7/10. Best 3/10-more at rest Patient Entered Questionnaires 01/13/2024 02/28/2024 07/06/2024 Spine Questions Pain Location: Leg Lower back Leg Pain Duration: 6 months - 1 year Pain over last 6 months: Every day or nearly every day in the past 6 months Symptoms from neck/cervical spine: No Yes Yes Employment Status: Retired Retired 11/26/2023 02/28/2024 07/06/2024 Spine Red Flags Any type of cancer: No No No Unexplained fever: No No No Bowel or bladder disfunction: No No No Unintentional weight loss: No No No Osteoporosis: No No No 02/28/2024 07/06/2024 Neck Questionnaires Benzel Modified DELANO Score Incomplete 14 (Moderate Myelopathy Symptoms) PROMIS Score Percentiles 01/13/2024 02/28/2024 07/06/2024 Physical Health Physical Function Percentile 4 7 5 Sleep Percentile 34 34 21* Fatigue Percentile 18* 14 18* Pain Interference Percentile 7 5 5 01/13/2024 02/28/2024 07/06/2024 PROMIS SOCIAL ROLE SCORE Social Role Satisfaction Percentile 7 8 24* 10/19/2023 01/13/2024 06/19/2024 PROMIS Global Health Scale Physical Health Percentile 22* 7 22* Mental Health Percentile 19* 34 43 Patient-reported Percentiles provide an indication of how the patient's score ranks in relation to the general population. Higher percentile rankings indicate better function/quality of life. 50th percentile is the average of the general population and indicates half of respondents had a worse score. Depression Screenin02/28/2024 03/14/2024 07/06/2024 PHQ-9 Score 5 6 9 02/28/2024 03/14/2024 07/06/2024 PHQ-9 Self-harm Question Question 9 Not at all Not at all Not at all PHQ-9 Self-Harm (Item 9) response options: 0 Not at all 1 Several days 2 More than half the days 3 Nearly every day PHQ-9 Levels: 0-4 No - mild depression 5-9 Mild depression 10-14 Moderate depression 15-19 Moderately severe depression 20-27 Severe depression ALLERGIES Allergen Reactions Asa [Salicylates] causes platelet disfunction Aspirin Unknown, Other: See Comments Levaquin [Levofloxa* Rash, Other: See Comments Per pt feels like she on fire Avelox [Moxifloxaci* Intolerance C/O burning feeling on skin Current Outpatient Medications Medication Sig nateglinide (STARLIX) 60 mg tablet Take 1 tablet by mouth three times a day before meals for 4 days. Start after your steroid injection. tirzepatide (MOUNJARO) 7.5 mg/0.5 mL pen injector Inject 7.5 mg subcutaneously one time a week. Blood-Glucose Sensor ([employer] G7 SENSOR) nimesh Change sensor every 10 days. fludrocortisone (FLORINEF) 0.1 mg tablet Take 2 tablets by mouth once daily. lancets (TRUEPLUS LANCETS) 33 gauge Use with blood glucose test once daily pravastatin (PRAVACHOL) 10 mg tablet Take 1 tablet by mouth once daily. blood sugar diagnostic (TRUE METRIX GLUCOSE TEST STRIP) test strip Use with blood glucose test oncedaily Blood-Glucose Meter (TRUE METRIX GLUCOSE METER) 1 Each once daily. ergocalciferol 50,000 unit capsule (VITAMIN D2, DRISDOL) TAKE 1 CAPSULE ONE TIME WEEKLY clonazePAM (KLONOPIN) 0.5 mg tablet Take 1 tablet by mouth as needed. For restless leg syndrome loratadine (CLARITIN) 10 mg tablet Take 10 mg by mouth once daily. fluticasone (FLONASE) 50 mcg/actuation nasal spray Use 2 Sprays in each nostril twice daily. pen needle, diabetic (COMFORT EZ PEN NEEDLES) 33 gauge x 5/16 ndle To inject weekly MULTIVITAMIN (MULTI-DAY ORAL) Take by mouth once daily. calcium carbonate 600 mg-cholecalciferol 200 units (CALCIUM 600 + D,3,) 600 mg(1,500mg) -200 unit tab Take 1 tablet by mouth once daily. No current facility-administered medications for this visit. PAST MEDICAL HISTORY Diagnosis Date Carpal tunnel syndrome Diverticulosis of colon (without mention of hemorrhage) Hypotension Localized osteoarthrosis not specified whether primary or secondary, hand Mastodynia Other chronic sinusitis Type II or unspecified type diabetes mellitus without mention of complication, uncontrolled Vertigo Current workup Physical Examination: General: NAD, pleasant Radiological Review: Fluoro images 06/2024. Lumbar MRI-images reviewed with patient Impression: Chronic lumbar radiculopathy, LSS Plan: Spine surgery consult given ongoing symptoms and limited activities despite attempted treatment, # provided to call and schedule. Advised contact office with difficulties scheduling. Ongoing HEP as tolerated and directed. On lyrica. May consider interlaminar ANGELA. The patient is instructed to call/seek urgent medical care with worsening pain or change of neurological status. There are no barriers to patient education identified. Management options were discussed in detail.The patient is in agreement with the plan as outlined above and verbalized understanding. Addendum-patient would like to proceed with interlaminar ANGELA, order placed. F/U: 2-4 weeks after. Steve Wagoner MD documented in this encounterWilson Health04-01-2025 Telephone encounter Note * Telephone Encounter - Edith Knott MA - 07/10/2024 2:44 PM EDT Received CGM supply form from [employer]. Form placed in Karl Cook's folder for completion. [facility]04-01-2025 Miscellaneous Notes* Telephone Encounter - Edith Knott MA - 07/10/2024 2:44 PM EDT Received CGM supply form from [employer]. Form placed in Karl Cook's folder for completion. documented in this encounterWilson Health03-21-2025 Telephone encounter Note * Telephone Encounter - Sofiya Haynes LPN - 06/29/2024 8:51 AM EDT Post Spine Injection phone call: 06/29/24 Patient denies fever, chills, new headache, prolonged numbness nor exacerbation of pain status. Injection site(s) flat and dry with no redness nor drainage. Pre Procedure Pain level: 3 Immediately Post Procedure 2 Pain level today 0 (0 = none - 10 = extreme) Percentage of pain relief: 95% Blood Glucose monitorin mg/dL June 29, 2024 Patient encouraged to monitor blood glucose for next 24 -48 for elevations. Patient verbalized understanding that it may take up to 14 days to realize full benefit of spinal injection. Patient is scheduled with Dr. Wagoner 07/12/24. Patient reminded to bring pain diary to follow appointment. Patient does not have any questions or concerns. Patient will call office with any questions or concerns. [facility]03-21-2025 Miscellaneous Notes* Telephone Encounter - Sofiya Haynes LPN - 06/29/2024 8:51 AM EDT Post Spine Injection phone call: 06/29/24 Patient denies fever, chills, new headache, prolonged numbness nor exacerbation of pain status. Injection site(s) flat and dry with no redness nor drainage. Pre Procedure Pain level: 3 Immediately Post Procedure 2 Pain level today 0 (0 = none - 10 = extreme) Percentage of pain relief: 95% Blood Glucose monitorin mg/dL June 29, 2024 Patient encouraged to monitor blood glucose for next 24 -48 for elevations. Patient verbalized understanding that it may take up to 14 days to realize full benefit of spinal injection. Patient is scheduled with Dr. Wagoner 07/12/24. Patient reminded to bring pain diary to follow appointment. Patient does not have any questions or concerns. Patient will call office with any questions or concerns. documented in this encounterWilson Health03-18-2025 Telephone encounter Note * Telephone Encounter - Phyllis Thomas - 06/26/2024 7:56 AM EDT Images from the original note were not included. tirzepatide (MOUNJARO) 7.5 mg/0.5 mL pen injector has been approved Notified patient through [employer] II Endocrinology & Metabolism [facility] X-20 [facility]03-18-2025 Miscellaneous Notes* Telephone Encounter - Phyllis Thomas - 06/26/2024 7:56 AM EDT Images from the original note were not included. tirzepatide (MOUNJARO) 7.5 mg/0.5 mL pen injector has been approved Notified patient through [employer] Maintenance Manager II Endocrinology & Metabolism [facility] X-20 documented in this encounterWilson Health03-17-2025 Instructions* Patient Instructions* Karl Cook APRN.CNP - 06/25/2024 3:16 PM EDT Increase Mounjaro to 7.5 mg once weekly - let me know if you do not tolerate Work on water intake- 64 ounces daily Can take starlix 60 mg before each meal for four days following steroid injection. Continue pravastatin 10 mg daily Repeat fastings labs and urine test prior to next appt. Follow up with Dr Oneill in August and see me in Dec Can consider dexcom stelo- subscription at [employer] documented in this encounterWilson Health03-17-2025 NoteHNO ID: [id number] Author: KARL COOK APRN.CNP Service: ? Author Type: Nurse Practitioner Type: Progress Notes Filed: 06/26/2024 13:00 Note Text: Endocrinology Follow-up History of Present Illness Hola Douglas is a 79 year old female presents today for follow up of DM Type 2. LV with Dr Oneill- Ozempic was continued In between visits, she had reached out and Ozempic was switched to Mounjaro 5 mg weekly. Tolerating without side effects. A1C was 6.5% (05/11/24) She and her had Flu A- last month Required prednisone for this Did have some mild nausea with the Ozempic Will be receiving a steroid injection PMH significant for: PAST MEDICAL HISTORY Diagnosis Date Carpal tunnel syndrome Diverticulosis of colon (without mention of hemorrhage) Hypotension Localized osteoarthrosis not specified whether primary or secondary, hand Mastodynia Other chronic sinusitis Type II or unspecified type diabetes mellitus without mention of complication, uncontrolled Vertigo Current workup Date of Diagnosis: age 61 Last HbA1c: Hemoglobin A1C (%) Date Value 05/11/2024 6.5 10/06/2023 6.7 05/20/2023 7.0 12/21/2022 6.2 05/21/2022 6.4 2021 6.7 10/24/2020 6.7 05/01/2020 6.4 10/18/2019 6.4 04/06/2019 6.3 Hemoglobin A1C (POCT) (%) Date Value 01/19/2024 6.8 Complications Microvascular: neuropathy, CKD stage 3 Macrovascular: none Health Maintenance Topics Topic Date Due Dilated Retinal Exam 07/04/2024 Physical Activity: limited Diet: no specific regimen; eats 3 meals per day SMBG Frequency of Monitoring:daily in the morning BG Values: typically 110s Hypoglycemia Frequency: denies Current DM Related Medications: Current Medications 06/25/2024 DIABETES THERAPIES Medication Dosage Pharm Subclass nateglinide (STARLIX) 60 mg tablet Take 1 tablet by mouth three times a day before meals for 4 days. Start after your steroid injection. Antihyperglycemic - Meglitinide Analogs tirzepatide (MOUNJARO) 5 mg/0.5 mL pen injector Inject 5 mg subcutaneously one time a week. Antihyperglycemic - Dual GIP and GLP-1 Receptor Agonists CARDIOVASCULAR Medication Dosage Pharm Subclass pravastatin (PRAVACHOL) 10 mg tablet Take 1 tablet by mouth once daily. Antihyperlipidemic - HMG CoA Reductase Inhibitors (statins) OTHER Medication Dosage Pharm Subclass blood sugar diagnostic (TRUE METRIX GLUCOSE TEST STRIP) test strip Use with blood glucose test once daily Medical Supplies and DME - Blood Glucose Tests Blood-Glucose Meter (TRUE METRIX GLUCOSE METER) 1 Each once daily. Medical Supplies and DME - Glucose Monitoring Test Supplies calcium carbonate 600 mg-cholecalciferol 200 units (CALCIUM 600 + D,3,) 600 mg(1,500mg) -200 unit tab Take 1 tablet by mouth once daily. Minerals and Electrolytes - Calcium Replacement/Vitamin D Combinations clonazePAM (KLONOPIN) 0.5 mg tablet Take 1 tablet by mouth as needed. For restless leg syndrome Antianxiety Agent - Benzodiazepines ergocalciferol 50,000 unit capsule (VITAMIN D2, DRISDOL) TAKE 1 CAPSULE ONE TIME WEEKLY Vitamins - D Derivatives esomeprazole (NEXIUM) 20 mg capsule Take 1 capsule by mouth DAILY (6 AM). Gastric Acid Secretion [employer] - Proton Pump Inhibitors (PPIs) fludrocortisone (FLORINEF) 0.1 mg tablet Take 2 tablets by mouth once daily. Mineralocorticoids fluticasone (FLONASE) 50 mcg/actuation nasal spray Use 2 Sprays in each nostril twice daily. Nasal Corticosteroids gabapentin (NEURONTIN) 300 mg capsule Take 1 capsule by mouth two times a day AND 3 capsules daily at bedtime. Do all this for 90 days. Anticonvulsant - VALENTIN Analogs lancets (TRUEPLUS LANCETS) 33 gauge Use with blood glucose test once daily Medical Supplies and DME - Glucose Monitoring Test Supplies loratadine (CLARITIN) 10 mg tablet Take 10 mg by mouth once daily. Antihistamines - 2nd Generation MULTIVITAMIN (MULTI-DAY ORAL) Take by mouth once daily. Multivitamins pen needle, diabetic (COMFORT EZ PEN NEEDLES) 33 gauge x 5/16 ndle To inject weekly Medical Supplies and DME - Insulin [place]-Syringes and Admin Supplies Past History, Medications, Allergies PAST SURGICAL HISTORY Procedure Laterality Date ARTHROSCOPY KNEE DIAGNOSTIC W/WO SYNOVIAL BX SPX Left Arthroscopy, knee BIOPSY BREAST OPEN INCISIONAL 1998 needle localization right breast BIOPSY BREAST OPEN INCISIONAL 1996 right breast CARPAL TUNNEL right LAPS ABD PRTMANDOMENTUM DX W/WO SPEC BR/WA SPX Laparoscopy PAST SURGICAL HISTORY OF 06/2023 Bilateral cataract surgery TOTAL ABDOMINAL HYSTERECT W/WO RMVL TUBE OVARY 1992 ALLERGIES Allergen Reactions Asa [Salicylates] causes platelet disfunction Aspirin Unknown, Other: See Comments Levaquin [Levofloxa* Rash, Other: See Comments Per pt feels like she on fire Avelox [Moxifloxaci* Intolerance C/O burning feeling on skin FAMILY HISTORY Problem Relation Age of Onset Dementia Mother Co (more content not included)...[facility]03-17-2025 History of Present illness Narrative* Karl Cook APRN.ENVIRONMENTAL ENGINEER SCIENTIST - 06/25/2024 2:24 PM EDT Endocrinology Follow-up History of Present Illness Hola Douglas is a 79 year old female presents today for follow up of DM Type 2. LV with Dr Oneill- Ozempic was continued In between visits, she had reached out and Ozempic was switched to Mounjaro 5 mg weekly. Tolerating without side effects. A1C was 6.5% (05/11/24) She and her had Flu A- last month Required prednisone for this Did have some mild nausea with the Ozempic Will be receiving a steroid injection PMH significant for: PAST MEDICAL HISTORY Diagnosis Date Carpal tunnel syndrome Diverticulosis of colon (without mention of hemorrhage) Hypotension Localized osteoarthrosis not specified whether primary or secondary, hand Mastodynia Other chronic sinusitis Type II or unspecified type diabetes mellitus without mention of complication, uncontrolled Vertigo Current workup Date of Diagnosis: age 61 Last HbA1c: Hemoglobin A1C (%) Date Value 05/11/2024 6.5 10/06/2023 6.7 05/20/2023 7.0 12/21/2022 6.2 05/21/2022 6.4 2021 6.7 10/24/2020 6.7 05/01/2020 6.4 10/18/2019 6.4 04/06/2019 6.3 Hemoglobin A1C (POCT) (%) Date Value 01/19/2024 6.8 Complications Microvascular: neuropathy, CKD stage 3 Macrovascular: none Health Maintenance Topics Topic Date Due Dilated Retinal Exam 07/04/2024 Physical Activity: limited Diet: no specific regimen; eats 3 meals per day SMBG Frequency of Monitoring:daily in the morning BG Values: typically 110s Hypoglycemia Frequency: denies Current DM Related Medications: Current Medications 06/25/2024 DIABETES THERAPIES Medication Dosage Pharm Subclass nateglinide (STARLIX) 60 mg tablet Take 1 tablet by mouth three times a day before meals for 4 days. Start after your steroid injection. Antihyperglycemic - Meglitinide Analogs tirzepatide (MOUNJARO) 5 mg/0.5 mL pen injector Inject 5 mg subcutaneously one time a week. Antihyperglycemic - Dual GIP and GLP-1 Receptor Agonists CARDIOVASCULAR Medication Dosage Pharm Subclass pravastatin (PRAVACHOL) 10 mg tablet Take 1 tablet by mouth once daily. Antihyperlipidemic - HMG CoA Reductase Inhibitors (statins) OTHER Medication Dosage Pharm Subclass blood sugar diagnostic (TRUE METRIX GLUCOSE TEST STRIP) test strip Use with blood glucose test oncedaily Medical Supplies and DME - Blood Glucose Tests Blood-Glucose Meter (TRUE METRIX GLUCOSE METER) 1 Each once daily. Medical Supplies and DME - Glucose Monitoring Test Supplies calcium carbonate 600 mg-cholecalciferol 200 units (CALCIUM 600 + D,3,) 600 mg(1,500mg) -200 unit tab Take 1 tablet by mouth once daily. Minerals and Electrolytes - Calcium Replacement/Vitamin D Combinations clonazePAM (KLONOPIN) 0.5 mg tablet Take 1 tablet by mouth as needed. For restless leg syndrome Antianxiety Agent - Benzodiazepines ergocalciferol 50,000 unit capsule (VITAMIN D2, DRISDOL) TAKE 1 CAPSULE ONE TIME WEEKLY Vitamins - D Derivatives esomeprazole (NEXIUM) 20 mg capsule Take 1 capsule by mouth DAILY (6 AM). Gastric Acid Secretion [employer] - Proton Pump Inhibitors (PPIs) fludrocortisone (FLORINEF) 0.1 mg tablet Take 2 tablets by mouth once daily. Mineralocorticoids fluticasone (FLONASE) 50 mcg/actuation nasal spray Use 2 Sprays in each nostril twice daily. Nasal Corticosteroids gabapentin (NEURONTIN) 300 mg capsule Take 1 capsule by mouth two times a day AND 3 capsules daily at bedtime. Do all this for 90 days. Anticonvulsant - VALENTIN Analogs lancets (TRUEPLUS LANCETS) 33 gauge Use with blood glucose test once daily Medical Supplies and DME- Glucose Monitoring Test Supplies loratadine (CLARITIN) 10 mg tablet Take 10 mg by mouth once daily. Antihistamines - 2nd Generation MULTIVITAMIN (MULTI-DAY ORAL) Take by mouth once daily. Multivitamins pen needle, diabetic (COMFORT EZ PEN NEEDLES) 33 gauge x 5/16 ndle To inject weekly Medical Supplies and DME - Insulin [place]-Syringes and Admin Supplies Past History, Medications, Allergies PAST SURGICAL HISTORY Procedure Laterality Date ARTHROSCOPY KNEE DIAGNOSTIC W/WO SYNOVIAL BX SPX Left Arthroscopy, knee BIOPSY BREAST OPEN INCISIONAL 1998 needle localization right breast BIOPSY BREAST OPEN INCISIONAL 1996 right breast CARPAL TUNNEL right LAPS ABD PRTM&OMENTUM DX W/WO SPEC BR/WA SPX Laparoscopy PAST SURGICAL HISTORY OF 06/2023 Bilateral cataract surgery TOTAL ABDOMINAL HYSTERECT W/WO RMVL TUBE OVARY 1992 ALLERGIES Allergen Reactions Asa [Salicylates] causes platelet disfunction Aspirin Unknown, Other: See Comments Levaquin [Levofloxa* Rash, Other: See Comments Per pt feels like she on fire Avelox [Moxifloxaci* Intolerance C/O burning feeling on skin FAMILY HISTORY Problem Relation Age of Onset Dementia Mother Coronary Artery Disease Father COPD Father No Known Problems Brother Dementia Brother No Known Problems Brother Ovarian cancer Maternal Grandmother Breast Cancer Other no known family h/o breast cancer Social History Tobacco Use Smoking status: Never Smokeless tobacco: Never Vaping Use Vaping status: Never Used Substance Use Topics Alcohol use: Not Currently Drug use: No Comment: denies tx for drug/alcohol abuse in the past. Review of Systems Answers submitted by the patient for this visit: Core Review of Systems (Submitted on 06/19/2024) Fever : No Night sweats: No Recent unintentional weight change: No Nasal Congestion: Yes Hearing Loss: No Vision Disturbance: No A cough: Yes Difficulty Breathing?: No Chest pain: No Irregular heartbeat: No Leg Swelling: No Nausea: No Diarrhea: No Black tarry stools: No Difficulty Urinating?: No Awaken at Night More Than Once to Urinate?: Yes Joint pain or stiffness: No Muscle aches: No A rash: No Dizziness: No Headaches: No Memory Loss: No Seizures: No Physical examination BP 119/74 Pulse 73 Wt 84.7 kg (186 lb 11.7 oz) BMI 28.39 kg/m GENERAL: Well nourished, well hydrated, in no distress and oriented x 3 COMMUNICATION: Hearing: normal; VOICE: normal EYES: no thyroid eye signs, Fundi normal and cornea normal. EOMI NECK: no visible nodules or goiter EXTREMITIES: No clubbing, no edema, no cyanosis and normal nails NEURO: normal strength, no tremor and normal reflexes SKIN: No rash or lesion Previous Laboratory Results LABS Glucose (mg/dL) Date Value 05/11/2024 96 10/06/2023 119 07/26/2023 87 2021 120 12/24/2020 111 10/24/2020 138 Potassium (mmol/L) Date Value 05/11/2024 4.4 2021 4.5 Sodium (mmol/L) Date Value 05/11/2024 144 10/06/2023 142 07/26/2023 147 2021 141 12/24/2020 141 10/24/2020 143 Chloride (mmol/L) Date Value 05/11/2024 109 10/06/2023 105 07/26/2023 107 2021 105 12/24/2020 104 10/24/2020 107 CO2 (mmol/L) Date Value 05/11/2024 26 10/06/2023 29 07/26/2023 24 2021 26 12/24/2020 26 10/24/2020 25 Creatinine (mg/dL) Date Value 05/11/2024 1.20 10/06/2023 1.14 07/26/2023 1.05 2021 1.08 12/24/2020 1.05 10/24/2020 1.00 BUN (mg/dL) Date Value 05/11/2024 20 10/06/2023 18 07/26/2023 15 2021 15 12/24/2020 14 10/24/2020 11 Anion Gap (mmol/L) Date Value 05/11/2024 9 10/06/2023 8 07/26/2023 16 2021 10 12/24/2020 11 10/24/2020 11 Calcium (mg/dL) Date Value 2021 9.5 12/24/2020 10.1 10/24/2020 9.0 Calcium, Total (mg/dL) Date Value 05/11/2024 8.8 10/06/2023 9.7 07/26/2023 9.8 eGFR- (no units) Date Value 2021 >60 12/24/2020 >60 10/24/2020 >60 eGFR-All Other Races (.) Date Value 2021 50 12/24/2020 51 10/24/2020 54 Estimated Glomerular Filtration Rate (mL/min/1.73m ) Date Value 05/11/2024 47 10/06/2023 50 07/26/2023 55 ALT (U/L) Date Value 05/11/2024 25 10/06/2023 42 07/26/2023 44 2021 52 12/24/2020 38 10/24/2020 27 TSH Date Value Ref Range Status 05/11/2024 4.560 (H) 0.270 - 4.200 mIU/L Final 10/06/2023 4.320 (H) 0.270 - 4.200 mIU/L Final 07/26/2023 6.420 (H) 0.270 - 4.200 mIU/L Final Free T4 Date Value Ref Range Status 10/06/2023 1.1 0.9 - 1.7 ng/dL Final 12/21/2022 1.0 0.9 - 1.7 ng/dL Final 10/06/2022 0.9 0.9 - 1.7 ng/dL Final Impression/Recommendations IMPRESSION Hola Douglas is a 79 year old here for evaluation of DM Type 2 complicated by hypertension, hyperlipidemia, nephropathy, and peripheral neuropathy A1C is at target, she is reporting weight gain since switching from the Ozempic, can increase Mounjaro to 7.5mg. Starlix is reordered for steroid injection. She reports she may be missing doses of her pravastatin- will continue current dosage and repeat prior to next visit. ASSESSMENT/PLAN: 1. Type 2 diabetes mellitus with stage 3a chronic kidney disease, without long- term current use of insulin (HCC) - ICD9: 250.40, 585.3, ICD10: E11.22, N18.31 (primary diagnosis) - Controlled - Increase tirzepatide (Mounjaro) - Blood glucose monitoring on a weekly schedule - Counseled on healthy diet and regular exercise - Follow up in 3 months, sooner should any other issues arise. - eGFR: 47 Stable - Counseled on avoiding NSAIDs, adequate hydration - Counseled on low sodium diet - TIRZEPATIDE 7.5 MG/0.5 ML SUBCUTANEOUS PEN INJECTOR - LIPID PANEL, FASTING - HEMOGLOBIN A1C - RENAL FUNCTION PANEL - THYROID STIMULATING HORMONE - ALBUMIN/CREATININE RATIO, URINE - DEXCOM G7 SENSOR DEVICE 2. 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athy (HCC) - ICD9: 250.60, 357.2, ICD10: E11.42 - Controlled - Increase tirzepatide (Mounjaro) - TIRZEPATIDE 7.5 MG/0.5 ML SUBCUTANEOUS PEN INJECTOR - LIPID PANEL, FASTING - HEMOGLOBIN A1C - RENAL FUNCTION PANEL - THYROID STIMULATING HORMONE - ALBUMIN/CREATININE RATIO, URINE - DEXCOM G7 SENSOR DEVICE 3. Mixed hyperlipidemia - ICD9: 272.2, ICD10: E78.2 - Worsening control - Continue current medications - Counseled on healthy diet and regular exercise RECOMMENDATIONS: 1. Glycemic control: Target HbA1C is less than 7.0% per ADA guidelines. Plan: Increase Mounjaro to 7.5 mg once weekly - let me know if you do not tolerate Work on water intake- 64 ounces daily Can take starlix 60 mg before each meal for four days following steroid injection. Continue pravastatin 10 mg daily Repeat fastings labs and urine test prior to next appt. Follow up with Dr Oneill in August and see me in Dec Can consider dexcom stelo- subscription at [facility] The patient was reminded to check their blood glucose as directed and to record the data in a logbook. This patient was advised to bring their logbook to each office visit. I recommended at least 150minutes per week of moderate physical activity, such as walking and to reduce carbohydrates and overall caloric intake. 2. Hypertension/BP control: BP goal for patients with diabetes is 130/80. 3. Lipids: Target LDL cholesterol in patients with diabetes is less than 100, less than 70 if patient has overt CVD. Several studies have shown cardiovascular benefits of statin therapy in all patients with diabetes over age 40 with at least 1 CVD risk factor. Cholesterol, Total Date Value Ref Range Status 05/11/2024 175 <200 mg/dL Final Comment: <200 mg/dL, Desirable 200-239 mg/dL, Borderline high >239 mg/dL, High HDL Cholesterol Date Value Ref Range Status 05/11/2024 44 >39 mg/dL Final Comment: 40-59 mg/dL, Acceptable >59 mg/dL, High: Negative risk factor for coronary heart disease <40 mg/dL, Low: Positive risk factor for coronary heart disease LDL Cholesterol Date Value Ref Range Status 05/11/2024 108 (H) <100 mg/dL Final Comment: <100 mg/dL, Optimal 100-129 mg/dL, Near optimal/above optimal 130-159 mg/dL, Borderline high 160-189 mg/dL, High >189 mg/dL, Very high Secondary prevention optimal LDL Cholesterol levels are recommended to be < 70 mg/dL Triglyceride Date Value Ref Range Status 05/11/2024 116 <150 mg/dL Final Comment: <150 mg/dL, Normal 150-199 mg/dL, Borderline high 200-499 mg/dL, High >499 mg/dL, Very high -- This patient is on statin therapy. 4. Nephropathy screening: Annual measurement of urine albumin excretion is recommended in patients with diabetes. Albumin/Creat Ratio (mg/g) Date Value 05/11/2024 6 2021 Not calculated Protein, Urine (mg/dL) Date Value 11/10/2018 30 (A) Creatinine, Ur Random (UCRR) (mg/dL) Date Value 05/11/2024 384.3 (H) 2021 151.7 -- This patient does not have microalbuminuria and is not on COREY-I or ARB therapy. 5. Ophthalmology: Annual dilated eye exams are recommended for patients with type 1 and type 2 diabetes. -- This patient is not up to date with their annual eye exam and was referred to an ophthalmologistat this visit. Patient to continue to follow up with his PCP and with other consultants regarding his other medical problems. Any part of this document that has been added/copied & pasted from other documents has been reviewed for accuracy and updated as appropriate at the time of the patient encounter I spent a total of 39 minutes on the date of the service which included preparing to see the patient, [id number] patient care, completing clinical documentation, obtaining and/or reviewing separately obtained history, performing a medically appropriate examination, counseling and educating the pat ient/family/caregiver, ordering medications, tests, or procedures, independently interpreting results (not separately reported), and communicating results to the patient/family/caregiver. Karl Cook APRN.JUAN ANTONIO documented in this encounterWilson Health03-13-2025 Telephone encounter Note * Telephone Encounter - Farzana Morrow RD - 06/21/2024 4:06 PM EDT Spoke with pt via phone - pt set initial appt for spouse at end of September 2024. Pt reports spouse is experiencing unintentional weight loss. Set appt for [address] [facility] Work Phone: [phone] Miscellaneous Notes* Telephone Encounter - Farzana Morrow RD - 06/21/2024 4:06 PM EDT Spoke with pt via phone - pt set initial appt for spouse at end of September 2024. Pt reports spouse is experiencing unintentional weight loss. Set appt for [address] * Telephone Encounter - Lisa Addison - 06/19/2024 11:30 AM EDT Hola is calling Farzana Morrow RD today. She was seen by provider on 03/30/24. Wants to talk to provider to see about getting her in to see her. Please call patient. Patient has been identified by name and birthdate. Duration of symptoms: N/A Person calling: self Call patient at: on cell [phone] (home) [phone] (cell) Was an appointment scheduled: No Closing statement: Results or non-symptom based questions: Thank you for calling [facility], your call will be returned within the next business day. Lisa Orona documented in this encounterWilson Health03-11-2025 Telephone encounter Note * Telephone Encounter - Lisa Addison - 06/19/2024 11:30 AM EDT Hola is calling Farzana Morrow RD today. She was seen by provider on 03/30/24. Wants to talk to provider to see about getting her in to see her. Please call patient. Patient has been identified by name and birthdate. Duration of symptoms: N/A Person calling: self Call patient at: on cell [phone] (home) [phone] (cell) Was an appointment scheduled: No Closing statement: Results or non-symptom based questions: Thank you for calling [facility], your call will be returned within the next business day. Lisa Maxwell Pss [facility]03-07-2025 Telephone encounter Note* Telephone Encounter - Swapnil Borrego RN - 06/15/2024 3:47 PM EST Last OV: 12/15/2023 Last Refill: FUV: 09/13/2024 Appropriate for refill. Routed to for review. GENESIS Vitale, RN, SCRN [facility]03-07-2025 Miscellaneous Notes* Telephone Encounter - Swapnil Borrego RN - 06/15/2024 3:47 PM EST Last OV: 12/15/2023 Last Refill: FUV: 09/13/2024 Appropriate for refill. Routed to for review. GENESIS Vitale, RN, SCRN documented in this encounterWilson Health03-06-2025 Telephone encounter Note * Telephone Encounter - Bryanna Valdez RN - 06/14/2024 2:44 PM EST Patients last Endocrinology visit occurred Last encounter Visit on 01/19/2024 (with Lorraine Oneill) Follow-up evaluation has been established Upcoming Endocrinology Appointments - Next 365 Days Visit Type Date Time Department EST SORAYA PATIENT 06/25/2024 3:00 PM ENDO [facility] REJ EST SORAYA PATIENT 08/21/2024 3:00 PM ENDO [facility] REJ . Requested Prescriptions Pending Prescriptions Disp Refills lancets (TRUEPLUS LANCETS) 33 gauge 100 Each 3 Sig: Use with blood glucose test once daily If patient is due for an appointment please route to provider for refill consideration and also to the endo scheduling pool. [facility]03-06-2025 Miscellaneous Notes* Telephone Encounter - Bryanna Valdez RN - 06/14/2024 2:44 PM EST Patients last Endocrinology visit occurred Last encounter Visit on 01/19/2024 (with Lorraine Oneill) Follow-up evaluation has been established Upcoming Endocrinology Appointments - Next 365 Days Visit Type Date Time Department EST SORAYA PATIENT 06/25/2024 3:00 PM ENDO [facility] REJ EST SORAYA PATIENT 08/21/2024 3:00 PM ENDO [facility] REJ . Requested Prescriptions Pending Prescriptions Disp Refills lancets (TRUEPLUS LANCETS) 33 gauge 100 Each 3 Sig: Use with blood glucose test once daily If patient is due for an appointment please route to provider for refill consideration and also to the endo scheduling pool. documented in this encounterWilson Health03-05-2025 Telephone encounter Note * Telephone Encounter - Sofiya HaynesNAM - 06/13/2024 12:42 PM EST Phoned patient and spoke with patient to confirm appointment for Hola Douglas for spine procedureon 06/26/24. Patient notified that Sumner will call patient the night before with the time to arrivefor injection. Patient verbalized understanding of the following: -Provided education on spine procedure and answered questions related to spine injection procedure. -Desk Editor is needed to drive patient home: Yes, and patient aware [employer] flatbed driver will need to stay for procedure and drive her home. -NPO 6 hours prior to appointment, ok to take morning medications with sip of water. -Not to take any pain medications the day of injection to see how well injection works. -Do not take any NSAIDs/anti-inflammatories (mobic, ibuprofen, advil, aleve, etc) the day of procedure for all lumbar, hip, and sacroiliac joint procedures. Hold NSAIDs for 1 day prior to procedure for cervical cases. Allergies reviewed: Yes Allergy to IV contrast dye or steroids: No and not allergic to shellfish Taking any antiplatelet/anticoagulant (blood thinners): No Taking aspirin 81mg: No Any open wounds/sores?: No Taking Antibiotics?: Yes, patient states she will be off of this on Tuesday06/17/24 Diabetic: Yes , notified that blood sugar will be taken at office and ok to take morning diabetes medication. Patient given number [phone], spine injections schedulers, if there is any need to reschedule/change appointment during normal business hours. Active MyChart users were informed to read MyChartprocedure instructions prior to appointment. AMBULATORY PATIENT EDUCATION TOPIC: SPINE INJECTION PROCEDURE, PRE-INJECTION AND POST- INJECTION INSTRUCTIONS READINESS TO LEARN COGNITIVE ABILITY: ALERT AND ORIENTED MOTIVATION TO LEARN: Eager FAMILY SUPPORT: Unable to assess - Family not present INSTRUCTION PROVIDED TO: Patient PATIENT LEARNS BEST BY: INDIVIDUAL INSTRUCTION FACTORS AFFECTING LEARNING: None PHYSICAL LIMITATIONS AFFECTING LEARNING: None LEARNING RESPONSE METHOD OF INSTRUCTION: TEACH BACK AND INDIVIDUAL INSTRUCTION PATIENT / FAMILY RESPONSE: VERBALIZED UNDERSTANDING OF PRE AND POST INJECTION INSTRUCTIONS [facility]03-05-2025 Miscellaneous Notes* Telephone Encounter - Sofiya Haynes LPN - 06/13/2024 12:42 PM EST Phoned patient and spoke with patient to confirm appointment for Hola Douglas for spine procedureon 06/26/24. Patient notified that Sumner will call patient the night before with the time to arrivefor injection. Patient verbalized understanding of the following: -Provided education on spine procedure and answered questions related to spine injection procedure. -Desk Editor is needed to drive patient home: Yes, and patient aware [employer] flatbed driver will need to stay for procedure and drive her home. -NPO 6 hours prior to appointment, ok to take morning medications with sip of water. -Not to take any pain medications the day of injection to see how well injection works. -Do not take any NSAIDs/anti-inflammatories (mobic, ibuprofen, advil, aleve, etc) the day of procedure for all lumbar, hip, and sacroiliac joint procedures. Hold NSAIDs for 1 day prior to procedure for cervical cases. Allergies reviewed: Yes Allergy to IV contrast dye or steroids: No and not allergic to shellfish Taking any antiplatelet/anticoagulant (blood thinners): No Taking aspirin 81mg: No Any open wounds/sores?: No Taking Antibiotics?: Yes, patient states she will be off of this on Tuesday06/17/24 Diabetic: Yes , notified that blood sugar will be taken at office and ok to take morning diabetes medication. Patient given number [phone], spine injections schedulers, if there is any need to reschedule/change appointment during normal business hours. Active MyChart users were informed to read MyChartprocedure instructions prior to appointment. AMBULATORY PATIENT EDUCATION TOPIC: SPINE INJECTION PROCEDURE, PRE-INJECTION AND POST- INJECTION INSTRUCTIONS READINESS TO LEARN COGNITIVE ABILITY: ALERT AND ORIENTED MOTIVATION TO LEARN: Eager FAMILY SUPPORT: Unable to assess - Family not present INSTRUCTION PROVIDED TO: Patient PATIENT LEARNS BEST BY: INDIVIDUAL INSTRUCTION FACTORS AFFECTING LEARNING: None PHYSICAL LIMITATIONS AFFECTING LEARNING: None LEARNING RESPONSE METHOD OF INSTRUCTION: TEACH BACK AND INDIVIDUAL INSTRUCTION PATIENT / FAMILY RESPONSE: VERBALIZED UNDERSTANDING OF PRE AND POST INJECTION INSTRUCTIONS documented in this encounterWilson Health02-26-2025 Telephone encounter Note * Telephone Encounter - Sofiya Haynes LPN - 06/06/2024 1:00 PM EST [employer] message sent to patient with Procedure Instructions. [facility]02-26-2025 Miscellaneous Notes* Telephone Encounter - Sofiya Haynes LPN - 06/06/2024 1:00 PM EST [employer] message sent to patient with Procedure Instructions. documented in this encounterWilson Health02-25-2025 Telephone encounter Note * Telephone Encounter - Elayne dHz RN - 06/05/2024 10:37 AM EST Forwarded to schedulers to cancel [facility]02-25-2025 Miscellaneous Notes* Telephone Encounter - Elayne Hdz RN - 06/05/2024 10:37 AM EST Forwarded to schedulers to cancel * Telephone Encounter - Deborah Oscar - 06/05/2024 9:57 AM EST Call received for Zak Cohen DO regarding Hola Douglas. Caller: self Patient Identified by Name and : Hola Douglas 1945 Reason for Call: General - pt called she has the flu, still on Hannah flu, she needs to reschedule her injection with Dr. Cohen. Please call. Is there any additional information the provider should know? No Last Office Visit: 05/23/2024 Next scheduled appointment: Visit date not found Best number to reach caller: [phone] Best time to reach caller: any Is it OK to leave a detailed voice message? Yes Deborah Oscar documented in this encounterWilson Health02-25-2025 Telephone encounter Note * Telephone Encounter - Deborah Oscar - 06/05/2024 9:57 AM EST Call received for Zak Cohen, DO regarding Hola Douglas. Caller: self Patient Identified by Name and : Hola Douglas 1945 Reason for Call: General - pt called she has the flu, still on Hannah flu, she needs to reschedule her injection with Dr. Cohen. Please call. Is there any additional information the provider should know? No Last Office Visit: 05/23/2024 Next scheduled appointment: Visit date not found Best number to reach caller: [phone] Best time to reach caller: any Is it OK to leave a detailed voice message? Yes Deborah Oscar [facility]02-19-2025 Telephone encounter Note* Telephone Encounter - Sofiya Haynes LPN - 05/30/2024 1:19 PM EST Phoned patient and spoke with patient to confirm appointment for Hola Douglas for spine procedureon 06/07/24. Patient notified that Sumner will call patient the night before with the time to arrivefor injection. Patient verbalized understanding of the following: -Provided education on spine procedure and answered questions related to spine injection procedure. -Desk Editor is needed to drive patient home: Yes, patient is aware [employer] flatbed driver will need to stay for procedure and drive her home. -NPO 6 hours prior to appointment, ok to take morning medications with sip of water. -Not to take any pain medications the day of injection to see how well injection works. -Do not take any NSAIDs/anti-inflammatories (mobic, ibuprofen, advil, aleve, etc) the day of procedure for all lumbar, hip, and sacroiliac joint procedures. Hold NSAIDs for 1 day prior to procedure for cervical cases. Allergies reviewed: Yes Allergy to IV contrast dye or steroids: No and not allergic to shellfish. Taking any antiplatelet/anticoagulant (blood thinners): No Taking aspirin 81mg: No Any open wounds/sores?: No Taking Antibiotics?: No Diabetic: Yes , notified that blood sugar will be taken at office and ok to take morning diabetes medication. Patient given number [phone], spine injections schedulers, if there is any need to reschedule/change appointment during normal business hours. Active MyChart users were informed to read MyChartprocedure instructions prior to appointment. AMBULATORY PATIENT EDUCATION TOPIC: SPINE INJECTION PROCEDURE, PRE-INJECTION AND POST- INJECTION INSTRUCTIONS READINESS TO LEARN COGNITIVE ABILITY: ALERT AND ORIENTED MOTIVATION TO LEARN: Eager FAMILY SUPPORT: Unable to assess - Family not present INSTRUCTION PROVIDED TO: Patient PATIENT LEARNS BEST BY: INDIVIDUAL INSTRUCTION FACTORS AFFECTING LEARNING: None PHYSICAL LIMITATIONS AFFECTING LEARNING: None LEARNING RESPONSE METHOD OF INSTRUCTION: TEACH BACK AND INDIVIDUAL INSTRUCTION PATIENT / FAMILY RESPONSE: VERBALIZED UNDERSTANDING OF PRE AND POST INJECTION INSTRUCTIONS [facility]02-19-2025 Miscellaneous Notes* Telephone Encounter - Sofiya Hyanes LPN - 05/30/2024 1:19 PM EST Phoned patient and spoke with patient to confirm appointment for Hola Douglas for spine procedureon 06/07/24. Patient notified that Sumner will call patient the night before with the time to arrivefor injection. Patient verbalized understanding of the following: -Provided education on spine procedure and answered questions related to spine injection procedure. -Desk Editor is needed to drive patient home: Yes, patient is aware [employer] flatbed driver will need to stay for procedure and drive her home. -NPO 6 hours prior to appointment, ok to take morning medications with sip of water. -Not to take any pain medications the day of injection to see how well injection works. -Do not take any NSAIDs/anti-inflammatories (mobic, ibuprofen, advil, aleve, etc) the day of procedure for all lumbar, hip, and sacroiliac joint procedures. Hold NSAIDs for 1 day prior to procedure for cervical cases. Allergies reviewed: Yes Allergy to IV contrast dye or steroids: No and not allergic to shellfish. Taking any antiplatelet/anticoagulant (blood thinners): No Taking aspirin 81mg: No Any open wounds/sores?: No Taking Antibiotics?: No Diabetic: Yes , notified that blood sugar will be taken at office and ok to take morning diabetes medication. Patient given number [phone], spine injections schedulers, if there is any need to reschedule/change appointment during normal business hours. Active MyChart users were informed to read MyChartprocedure instructions prior to appointment. AMBULATORY PATIENT EDUCATION TOPIC: SPINE INJECTION PROCEDURE, PRE-INJECTION AND POST- INJECTION INSTRUCTIONS READINESS TO LEARN COGNITIVE ABILITY: ALERT AND ORIENTED MOTIVATION TO LEARN: Eager FAMILY SUPPORT: Unable to assess - Family not present INSTRUCTION PROVIDED TO: Patient PATIENT LEARNS BEST BY: INDIVIDUAL INSTRUCTION FACTORS AFFECTING LEARNING: None PHYSICAL LIMITATIONS AFFECTING LEARNING: None LEARNING RESPONSE METHOD OF INSTRUCTION: TEACH BACK AND INDIVIDUAL INSTRUCTION PATIENT / FAMILY RESPONSE: VERBALIZED UNDERSTANDING OF PRE AND POST INJECTION INSTRUCTIONS * Telephone Encounter - Sofiya Haynes LPN - 05/23/2024 6:25 PM EST Called and left patient a message for patient to give office a call back regarding her spine procedure on 06/07/24. documented in this encounterWilson Health02-12-2025 Telephone encounter Note * Telephone Encounter - Sofiya Haynes LPN - 05/23/2024 6:25 PM EST Called and left patient a message for patient to give office a call back regarding her spine procedure on 06/07/24. [facility]02-12-2025 Evaluation note* Author Nichole Castro [facility] HospitalAuthoBeaumont Hospitalbruary 2024 2:18pmThe above note written by PATRICIA Donnelly acting as human recorder, note dictated by Dr.Brett Gillis. [facility] Work Phone: 1(658) 453-337202-12-2025 Evaluation note* Author Nichole Castro [facility] HospitalAuthoredFebruary 2024 1:18pmThe above note written by PATRICIA Donnelly acting as human recorder, note dictated by Dr.Brett Gillis. [facility] Work Phone: 1(360) 666-786102-10-2025 Telephone encounter Note* Telephone Encounter - Sofiya Haynes LPN - 05/21/2024 6:07 PM EST [employer] message sent to patient with Procedure Instructions. [facility]02-10-2025 Miscellaneous Notes* Telephone Encounter - Sofiya Haynes LPN - 05/21/2024 6:07 PM EST [employer] message sent to patient with Procedure Instructions. documented in this encounterWilson Health02-10-2025 Telephone encounter Note * Telephone Encounter - Swapnil Borrego RN - 05/21/2024 9:06 AM EST Last OV: 12/15/2023 Last Refill: 03/01/2024 FUV: 09/13/2024 Appropriate for refill. Routed to EM for review. GENESIS Vitale, RN, SCRN [facility]02-10-2025 Miscellaneous Notes* Telephone Encounter - Swapnil Borrego RN - 05/21/2024 9:06 AM EST Last OV: 12/15/2023 Last Refill: 03/01/2024 FUV: 09/13/2024 Appropriate for refill. Routed to EM for review. Bridgitte Borrego, BSN, RN, SCRN documented in this encounterWilson Health02-03-2025 Telephone encounter Note * Telephone Encounter - Fadumo Winchester RN - 05/14/2024 2:54 PM EST Neuro SPINE CARE COORDINATION QUICK NOTE Last OV 03/01 Spoke with patient to discuss hip and lumbar XR results and get an update with how she is doing. States she is still having pain, not getting any better. Pain is the same area, low back and leg pain. I told her that Dr Wagoner may consider placing an order for a spine surgery consult if she was interested. She asked if it was possible to get another injection. Per office note: If not better may consider spine surgery consult or repeat ANGELA. [facility]02-03-2025 Miscellaneous Notes* Telephone Encounter - Fadumo Winchester RN - 05/14/2024 2:54 PM EST Neuro SPINE CARE COORDINATION QUICK NOTE Last OV 03/01 Spoke with patient to discuss hip and lumbar XR results and get an update with how she is doing. States she is still having pain, not getting any better. Pain is the same area, low back and leg pain. I told her that Dr Wagoner may consider placing an order for a spine surgery consult if she was interested. She asked if it was possible to get another injection. Per office note: If not better may consider spine surgery consult or repeat ANGELA. * Telephone Encounter - Steve Wagoner MD - 05/14/2024 12:43 PM EST Last visit 03/01. Reviewed the hip and lumbar x-rays-no fracture noted. Please get update from patient. Steve Wagoner MD documented in this encounterWilson Health02-03-2025 Telephone encounter Note * Telephone Encounter - Steve Wagoner MD - 05/14/2024 12:43 PM EST Last visit 03/01. Reviewed the hip and lumbar x-rays-no fracture noted. Please get update from patient. Steve Wagoner MD [facility] Work Phone: 1(763) 676-136501-31-2025 NoteCholesterol Ratio (LDL/HDL)May 11, 2024 10:49am2.45<2.54Reference:1. National Cholesterol Education Program ATP III Guideline At-A-Glance Quick Desk Reference: National Heart, Lung, and Blood [place]. National Institutes of Health. 2001: NIH PublicationNo. 3304.2. An International Atherosclerosis Society position paper: global recommendations for the management of dyslipidemia: executive summary, Atherosclerosis. 2014: 232(2):410-413.[facility] HospitalComment on above:Reference:1. National Cholesterol Education Program ATP III Guideline At-A-Glance Quick Desk Reference: National Heart, Lung, and Blood [place]. National Institutes of Health. 2001: NIH PublicationNo. .2. An International Atherosclerosis Society position paper: global recommendations for the management of dyslipidemia: executive summary, Atherosclerosis. 2014: 232(2):410-413.05-11-2024 NoteCholesterol Ratio (LDL/HDL)May 11, 2024 10:49am2.45<2.54Reference:1. National Cholesterol Education Program ATP III Guideline At-A-Glance Quick Desk Reference: National Heart, Lung, and Blood [place]. National Institutes of Health. 2001: NIH PublicationNo. .2. An International Atherosclerosis Society position paper: global recommendations for the management of dyslipidemia: executive summary, Atherosclerosis. 2014: 232(2):410-413.[facility] HospitalComment on above:Reference:1. National Cholesterol Education Program ATP III Guideline At-A-Glance Quick Desk Reference: National Heart, Lung, and Blood [place]. National Institutes of Health. 2001: NIH PublicationNo. .2. An International Atherosclerosis Society position paper: global recommendations for the management of dyslipidemia: executive summary, Atherosclerosis. 2014: 232(2):410-413. 05-11-2024 NoteCholesterol Ratio (LDL/HDL)May 11, 2024 11:49am2.45<2.54 Reference:1. National Cholesterol Education Program ATP III Guideline At-A-Glance Quick Desk Reference: National Heart, Lung, and Blood [place]. National Institutes of Health. 2001: NIH PublicationNo. 3305.2. An International Atherosclerosis Society position paper: global recommendations for the management of dyslipidemia: executive summary, Atherosclerosis. 2014: 232(2):410-413.[facility] HospitalComment on above:Reference:1. National Cholesterol Education Program ATP III Guideline At-A-Glance Quick Desk Reference: National Heart, Lung, and Blood [place]. National Institutes of Health. 2001: NIH PublicationNo. 3305.2. An International Atherosclerosis Society position paper: global recommendations for the management of dyslipidemia: executive summary, Atherosclerosis. 2014: 232(2):410-413. 05-11-2024 History of Present illness Narrative* Bc Joyce RT(R) - 05/11/2024 10:00 AM EST Radiology Service Progress Note PATIENT NAME: Hola Douglas DATE OF SERVICE: May 11, 2024 TIME: 10:20 AM PATIENT IDENTITY VERIFICATION COMPLETED USING TWO (2) IDENTIFIERS: Name and Date of confirmedby patient verbally and Name and Date of confirmed by identification band. FALL SCREENING: Has the patient had 2 falls in the last year or 1 fall with injury or currently using an Ambulatory Assistive Device (Walker, Cane, Wheelchair, Crutches, etc.)? No PATIENT GENDER DATA: Assigned female at . status: : No status:NO. PATIENT RELEVANT IMPLANT DATA REVIEWED: Not Applicable PATIENT PRESENTS WITH AN IMPLANTABLE OR ATTACHED PUBLIC HEALTH DIETITIAN: No RADIOLOGY DEPARTMENT: General X-ray: Exam(s) Completed: Spine X-Ray(s): Lumbar AP / LAT / L5-S1 Pelvis X-Ray: Pelvis with Hip Right PERIPHERAL IV DATA: Not applicable SIGNED BY: RT Olegario(R) May 11, 2024 10:20 AM documented in this encounterWilson Health01-31-2025 NoteHNO ID: [id number] Author: BC JOYCE RT(Selam) Service: ? Author Type: Technologist Type: Progress Notes Filed: 05/11/2024 10:21 Note Text: Radiology Service Progress Note PATIENT NAME: Hola Douglas DATE OF SERVICE: May 11, 2024 TIME: 10:20 AM PATIENT IDENTITY VERIFICATION COMPLETED USING TWO (2) IDENTIFIERS: Name and Date of confirmed by patient verbally and Name and Date of confirmed by identification band. FALL SCREENING: Has the patient had 2 falls in the last year or 1 fall with injury or currently using an Ambulatory Assistive Device (Walker, Cane, Wheelchair, Crutches, etc.)? No PATIENT GENDER DATA: Assigned female at . status: : No status: NO. PATIENT RELEVANT IMPLANT DATA REVIEWED: Not Applicable PATIENT PRESENTS WITH AN IMPLANTABLE OR ATTACHED PUBLIC HEALTH DIETITIAN: No RADIOLOGY DEPARTMENT: General X-ray: Exam(s) Completed: Spine X-Ray(s): Lumbar AP / LAT / L5-S1 Pelvis X-Ray: Pelvis with Hip Right PERIPHERAL IV DATA: Not applicable SIGNED BY: RT Olegario(Selam) May 11, 2024 10:20 AMBrigham City Community [id number] Telephone encounter Note* Telephone Encounter - Mili Handy LPN - 05/01/2024 11:32 AM EST PA completed for Wiliam see determination below. Approval Details Authorization number: [id number] Authorized from May 01, 2024 to April 10, 2025 [facility]01-21-2025 Miscellaneous Notes* Telephone Encounter - Mili Handy LPN - 05/01/2024 11:32 AM EST PA completed for Wiliam see determination below. Approval Details Authorization number: [id number] Authorized from May 01, 2024 to April 10, 2025 documented in this encounterWilson Health01-21-2025 Telephone encounter Note * Telephone Encounter - Mili Handy LPN - 05/01/2024 10:35 AM EST Spoke with the patient and updated her on Karl's recommendation. Patient verbalized understanding. [facility]01-21-2025 Miscellaneous Notes* Telephone Encounter - Mili Handy LPN - 05/01/2024 10:35 AM EST Spoke with the patient and updated her on Karl's recommendation. Patient verbalized understanding. * Telephone Encounter - Karl Cook APRN.CNP - 05/01/2024 9:04 AM EST Rx sent for Mounjaro 5 mg 90 day supply - she may start one week from her last Ozempic dosage ( sheshould finish out what she has) * Telephone Encounter - Mili Handy LPN - 05/01/2024 8:47 AM EST Spoke with patient who reports she has enough Ozempic for this month. She would like the prescription sent to [facility] in [place] on [address] * Telephone Encounter - Karl Cook APRN.CNP - 05/01/2024 8:13 AM EST OK to switch to Mounjaro. Does patient have a supply of Ozempic left or is she looking to switch now. Please confirm pharmacy. * Telephone Encounter - Roberth Cruz - 04/26/2024 3:06 PM EST Hola is calling Karl Cook APRN.CNP today to request to switch to Mounjaro instead of Ozempic. She discussed that with Farzana Morrow, the educator senior clinical and when she checked with her insurance,mounjaro would also be cheaper. Insurance would still need a prior auth. Please contact patient to advise. Patient has been identified by name and birthdate. Duration of symptoms: N/A Person calling: self Call patient at: on cell [phone] (home) [phone] (cell) Was an appointment scheduled: No Closing statement: Results or non-symptom based questions: Thank you for calling [facility], your call will be returned within the next business day. Roberth Cruz documented in this encounterWilson Health01-21-2025 Telephone encounter Note * Telephone Encounter - Karl Cook APRN.CNP - 05/01/2024 9:04 AM EST Rx sent for Mounjaro 5 mg 90 day supply - she may start one week from her last Ozempic dosage ( sheshould finish out what she has) [facility]01-21-2025 Telephone encounter Note* Telephone Encounter - Mili Handy LPN - 05/01/2024 8:47 AM EST Spoke with patient who reports she has enough Ozempic for this month. She would like the prescription sent to [facility] in [place] on . [facility]01-21-2025 Telephone encounter Note* Telephone Encounter - Karl Cook APRN.CNP - 05/01/2024 8:13 AM EST OK to switch to Mounjaro. Does patient have a supply of Ozempic left or is she looking to switch now. Please confirm pharmacy. [facility]01-16-2025 Telephone encounter Note* Telephone Encounter - Roberth Cruz - 04/26/2024 3:06 PM EST Hola is calling Karl Cook APRN.CNP today to request to switch to Mounjaro instead of Ozempic. She discussed that with Farzana Morrow, the educator senior clinical and when she checked with her insurance,mounjaro would also be cheaper. Insurance would still need a prior auth. Please contact patient to advise. Patient has been identified by name and birthdate. Duration of symptoms: N/A Person calling: self Call patient at: on cell [phone] (home) [phone] (cell) Was an appointment scheduled: No Closing statement: Results or non-symptom based questions: Thank you for calling [facility], your call will be returned within the next business day. Roberth Cruz [facility]01-14-2025 Telephone encounter Note* Telephone Encounter - Mili Handy LPN - 04/24/2024 4:15 PM EST PA completed for Ozempic see approval below. Approval Details Authorization number: [id number] Authorized from April 24, 2024 to April 10, 2025 [facility]01-14-2025 Miscellaneous Notes* Telephone Encounter - Mili Handy LPN - 04/24/2024 4:15 PM EST PA completed for Ozempic see approval below. Approval Details Authorization number: [id number] Authorized from April 24, 2024 to April 10, 2025 * Telephone Encounter - Edith Knott MA - 04/24/2024 1:58 PM EST Prior authorization for Ozempic submitted via [employer]. Awaiting response from plan. documented in this encounterWilson Health01-14-2025 Telephone encounter Note * Telephone Encounter - Edith Knott MA - 04/24/2024 1:58 PM EST Prior authorization for Ozempic submitted via [employer]. Awaiting response from plan. [facility]12-20-2024 NoteEducation (ENDAV3) HOLA DOUGLAS ([id number]) 1945 F Date Time Provider Department 03/30/24 10:00 AM FARZANA MORROW3 Reason for Visit: Medical Nutrition Therapy [1690] Cmt: Diabetes management follow-up During your visit today, we recorded the following information about you: Allergies As of Date: 03/30/2024 Noted Allergy Reaction ASA (SALICYLATES) 12/17/2004 Comments: causes platelet disfunction ASPIRIN 08/28/2018 16 - Unknown 14 - Other: See Comments LEVAQUIN (LEVOFLOXACIN) 12/29/2017 2 - Rash 14 - Other: See Comments Comments: Per pt feels like she on fire AVELOX (MOXIFLOXACIN HCL) 06/03/2011 5 - Intolerance Comments: C/O burning feeling on skin Date Reviewed: 03/20/2024 Reviewed by: Etienne Marcus, CT - Fully Assessed Prescriptions as of 03/30/2024 - fludrocortisone (FLORINEF) 0.1 mg tablet Take 2 tablets by mouth once daily. - pravastatin (PRAVACHOL) 10 mg tablet Take 1 tablet by mouth once daily. - semaglutide (OZEMPIC) 1 mg/dose (4 mg/3 mL) pen Inject 1 mg subcutaneously one time a week. - nateglinide (STARLIX) 60 mg tablet Take 1 tablet by mouth three times a day before meals for 4 days. Start after your steroid injection. - gabapentin (NEURONTIN) 300 mg capsule Take 1 capsule by mouth two times a day AND 3 capsules daily at bedtime. Do all this for 90 days. - blood sugar diagnostic (TRUE METRIX GLUCOSE TEST STRIP) test strip Use with blood glucose test once daily - lancets (TRUEPLUS LANCETS) 33 gauge Use with blood glucose test once daily - Blood-Glucose Meter (TRUE METRIX GLUCOSE METER) 1 Each once daily. - ergocalciferol 50,000 unit capsule (VITAMIN D2, DRISDOL) TAKE 1 CAPSULE ONE TIME WEEKLY - clonazePAM (KLONOPIN) 0.5 mg tablet Take 1 tablet by mouth as needed. For restless leg syndrome - loratadine (CLARITIN) 10 mg tablet Take 10 mg by mouth once daily. - fluticasone (FLONASE) 50 mcg/actuation nasal spray Use 2 Sprays in each nostril twice daily. - pen needle, diabetic (COMFORT EZ PEN NEEDLES) 33 gauge x 5/16 ndle To inject weekly - esomeprazole (NEXIUM) 20 mg capsule Take 1 capsule by mouth DAILY (6 AM). - MULTIVITAMIN (MULTI-DAY ORAL) Take by mouth once daily. - calcium carbonate 600 mg-cholecalciferol 200 units (CALCIUM 600 + D,3,) 600 mg(1,500mg) -200 unit tab Take 1 tablet by mouth once daily. Encounter Status:Closed by FARZANA MORROW on 03/30/24[facility] 03-30-2024 NoteHNO ID: [id number] Author: FARZANA MORROW RD Service: ? Author Type: Registered Dietitian Type: Progress Notes Filed: 03/30/2024 11:06 Note Text: [facility] Nutritional Assessment Patient states reason for visit: Diabetes/ Abnormal weight gain Management:Follow Up Lab Results Component Value Date HBA1C 6.8 01/19/2024 HBA1C 6.7 10/06/2023 HBA1C 7.0 05/20/2023 HBA1C 6.2 12/21/2022 HBA1C 6.7 2021 HBA1C 6.7 10/24/2020 HBA1C 6.4 05/01/2020 DEMOGRAPHICS: NUTRITION THERAPY Co-Morbidities: PAST MEDICAL HISTORY Diagnosis Date Carpal tunnel syndrome Diverticulosis of colon (without mention of hemorrhage) Hypotension Localized osteoarthrosis not specified whether primary or secondary, hand Mastodynia Other chronic sinusitis Type II or unspecified type diabetes mellitus without mention of complication, uncontrolled Vertigo Current workup Current Weight Management Program: None Activity: Do you do a regular exercise? No d/t back pain and recent fall. Symptoms: Patient's symptoms are as follows: None How many hours of sleep on average? 7+ Diet History: Pt did not report full diet recall. Pt reports she continues to include breakfast, lunch and dinner. Pt reports she continues to dislike most vegetables, other than lettuce. Fluids/Drinks: water, sparkling ICE drink Who Cooks: Self and Spouse Who Shops: Self and Spouse Allergies: No Food Allergy Medications: Current Outpatient Medications Medication Sig fludrocortisone (FLORINEF) 0.1 mg tablet Take 2 tablets by mouth once daily. pravastatin (PRAVACHOL) 10 mg tablet Take 1 tablet by mouth once daily. semaglutide (OZEMPIC) 1 mg/dose (4 mg/3 mL) pen Inject 1 mg subcutaneously one time a week. nateglinide (STARLIX) 60 mg tablet Take 1 tablet by mouth three times a day before meals for 4 days. Start after your steroid injection. gabapentin (NEURONTIN) 300 mg capsule Take 1 capsule by mouth two times a day AND 3 capsules daily at bedtime. Do all this for 90 days. blood sugar diagnostic (TRUE METRIX GLUCOSE TEST STRIP) test strip Use with blood glucose test once daily lancets (TRUEPLUS LANCETS) 33 gauge Use with blood glucose test once daily Blood-Glucose Meter (TRUE METRIX GLUCOSE METER) 1 Each once daily. ergocalciferol 50,000 unit capsule (VITAMIN D2, DRISDOL) TAKE 1 CAPSULE ONE TIME WEEKLY clonazePAM (KLONOPIN) 0.5 mg tablet Take 1 tablet by mouth as needed. For restless leg syndrome loratadine (CLARITIN) 10 mg tablet Take 10 mg by mouth once daily. fluticasone (FLONASE) 50 mcg/actuation nasal spray Use 2 Sprays in each nostril twice daily. pen needle, diabetic (COMFORT EZ PEN NEEDLES) 33 gauge x 5/16 ndle To inject weekly esomeprazole (NEXIUM) 20 mg capsule Take 1 capsule by mouth DAILY (6 AM). MULTIVITAMIN (MULTI-DAY ORAL) Take by mouth once daily. calcium carbonate 600 mg-cholecalciferol 200 units (CALCIUM 600 + D,3,) 600 mg(1,500mg) -200 unit tab Take 1 tablet by mouth once daily. No current facility-administered medications for this visit. ANTHROPOMETRICS Height: Last 1 Encounter Ht Readings: Date: Ht: 03/20/2024 172.7 cm (5' 8 ) Current weight: Last 1 Encounter Wt Readings: Date: Wt: 03/20/2024 81.6 kg (180 lb) 12/15/2023 82.8 kg (182 lb 8.7 oz) 08/03/2023 78.9 kg (174 lb) 07/26/2023 83 kg (183 lb) 06/23/2023 81.5 kg (179 lb 10.8 oz) BMI: 27.37 kg/(m2) READINESS TO LEARN Cognitive ability: Alert and oriented Motivation to learn: Eager Family support: High - Very involved in pt care Instruction provided to: Patient and Spouse Patient learns best by: Multiple Methods Factors affecting learning: None Physical limitations affecting learning: None Stage of Change: Action NUTRITION ASSESSMENT: Nutrition Diagnosis: Has not changed since previous diagnosis Nutrition Prescription: Calories Needed for Current Weight: Resting Metabolic Rate: 1360 Nutrition Intervention: -Diabetes Pathophysiology: role of insulin in the body, role of glucose in the body, and insulin resistance -Monitoring: A1c meaning and target <7% and BG targets -Healthy Eating: Plate Method -Medications: reviewed home DM meds -Physical Activity: impact of exercise on BG, types of exercise, and exercise safety -Chronic Complications: LT complications and importance of BG control to reduce risks Education Materials: None Nutrition Monitoring AND Evaluation: Dietitian Goals: Maintained OR Improved Blood Glucose Control by next A1C test Criteria: A1C Patient Centered Goals: Patient Stated Goals at last Visit (Met/Not Met/Partially Met): 1. Increase exercise as able (discussed chair-exercises with small dumbbells) - NOT MET 2. Choose equal portions protein and carbs at meals - PARTIALLY MET Patient Stated Goals at today's visit: 1. Increase exercise as able (discussed chair-exercises with small dumbbells) 2: I might b (more content not included)...[facility]12-20-2024 History of Present illness Narrative* Farzana Morrow, RD - 03/30/2024 9:44 AM EST [facility] Nutritional Assessment Patient states reason for visit: Diabetes/ Abnormal weight gain Management:Follow Up Lab Results Component Value Date HBA1C 6.8 01/19/2024 HBA1C 6.7 10/06/2023 HBA1C 7.0 05/20/2023 HBA1C 6.2 12/21/2022 HBA1C 6.7 2021 HBA1C 6.7 10/24/2020 HBA1C 6.4 05/01/2020 DEMOGRAPHICS: NUTRITION THERAPY Co-Morbidities: PAST MEDICAL HISTORY Diagnosis Date Carpal tunnel syndrome Diverticulosis of colon (without mention of hemorrhage) Hypotension Localized osteoarthrosis not specified whether primary or secondary, hand Mastodynia Other chronic sinusitis Type II or unspecified type diabetes mellitus without mention of complication, uncontrolled Vertigo Current workup Current Weight Management Program: None Activity: Do you do a regular exercise? No d/t back pain and recent fall. Symptoms: Patient's symptoms are as follows: None How many hours of sleep on average? 7+ Diet History: Pt did not report full diet recall. Pt reports she continues to include breakfast, lunch and dinner. Pt reports she continues to dislike most vegetables, other than lettuce. Fluids/Drinks: water, sparkling ICE drink Who Cooks: Self and Spouse Who Shops: Self and Spouse Allergies: No Food Allergy Medications: Current Outpatient Medications Medication Sig fludrocortisone (FLORINEF) 0.1 mg tablet Take 2 tablets by mouth once daily. pravastatin (PRAVACHOL) 10 mg tablet Take 1 tablet by mouth once daily. semaglutide (OZEMPIC) 1 mg/dose (4 mg/3 mL) pen Inject 1 mg subcutaneously one time a week. nateglinide (STARLIX) 60 mg tablet Take 1 tablet by mouth three times a day before meals for 4 days. Start after your steroid injection. gabapentin (NEURONTIN) 300 mg capsule Take 1 capsule by mouth two times a day AND 3 capsules daily at bedtime. Do all this for 90 days. blood sugar diagnostic (TRUE METRIX GLUCOSE TEST STRIP) test strip Use with blood glucose test oncedaily lancets (TRUEPLUS LANCETS) 33 gauge Use with blood glucose test once daily Blood-Glucose Meter (TRUE METRIX GLUCOSE METER) 1 Each once daily. ergocalciferol 50,000 unit capsule (VITAMIN D2, DRISDOL) TAKE 1 CAPSULE ONE TIME WEEKLY clonazePAM (KLONOPIN) 0.5 mg tablet Take 1 tablet by mouth as needed. For restless leg syndrome loratadine (CLARITIN) 10 mg tablet Take 10 mg by mouth once daily. fluticasone (FLONASE) 50 mcg/actuation nasal spray Use 2 Sprays in each nostril twice daily. pen needle, diabetic (COMFORT EZ PEN NEEDLES) 33 gauge x 5/16 ndle To inject weekly esomeprazole (NEXIUM) 20 mg capsule Take 1 capsule by mouth DAILY (6 AM). MULTIVITAMIN (MULTI-DAY ORAL) Take by mouth once daily. calcium carbonate 600 mg-cholecalciferol 200 units (CALCIUM 600 + D,3,) 600 mg(1,500mg) -200 unit tab Take 1 tablet by mouth once daily. No current facility-administered medications for this visit. ANTHROPOMETRICS Height: Last 1 Encounter Ht Readings: Date: Ht: 03/20/2024 172.7 cm (5' 8 ) Current weight: Last 1 Encounter Wt Readings: Date: Wt: 03/20/2024 81.6 kg (180 lb) 12/15/2023 82.8 kg (182 lb 8.7 oz) 08/03/2023 78.9 kg (174 lb) 07/26/2023 83 kg (183 lb) 06/23/2023 81.5 kg (179 lb 10.8 oz) BMI: 27.37 kg/(m^2) READINESS TO LEARN Cognitive ability: Alert and oriented Motivation to learn: Eager Family support: High - Very involved in pt care Instruction provided to: Patient and Spouse Patient learns best by: Multiple Methods Factors affecting learning: None Physical limitations affecting learning: None Stage of Change: Action NUTRITION ASSESSMENT: Nutrition Diagnosis: Has not changed since previous diagnosis Nutrition Prescription: Calories Needed for Current Weight: Resting Metabolic Rate: 1360 Nutrition Intervention: -Diabetes Pathophysiology: role of insulin in the body, role of glucose in the body, and insulin resistance -Monitoring: A1c meaning and target <7% and BG targets -Healthy Eating: Plate Method -Medications: reviewed home DM meds -Physical Activity: impact of exercise on BG, types of exercise, and exercise safety -Chronic Complications: LT complications and importance of BG control to reduce risks Education Materials: None Nutrition Monitoring & Evaluation: Dietitian Goals: Maintained OR Improved Blood Glucose Control by next A1C test Criteria: A1C Patient Centered Goals: Patient Stated Goals at last Visit (Met/Not Met/Partially Met): 1. Increase exercise as able (discussed chair-exercises with small dumbbells) - NOT MET 2. Choose equal portions protein and carbs at meals - PARTIALLY MET Patient Stated Goals at today's visit: 1. Increase exercise as able (discussed chair-exercises with small dumbbells) 2: I might be read tomake a plan Comments: Pt reports FBG 109-123 mg/dL. Pt interested in Mounjaro - PCP recommended for weight loss. Pt reports continued limited exercise d/t back pain. Pt reports continued pain in feet (charity toes) d/t neuropathy. Discussed OTC capsicin cream, but recommended discussed with systems security analyst and avoiding all areaswith cracked skin. Per previous appt notes... Pt reports she recently had the flu and developed low BP. Discussed salt in diet - recommended pt keep consistent. Pt reports she stopped buying soda, so her intake of sugar-sweetened drinks has drastically decreased. Discussed BG control, current meds, etc. Need for Follow up: RD will remain available. Referred/Supervised by: Lorraine Oneill MD Consult Billing Type: Re-assess/15 minutes, 3 increment(s), 45 minutes Number of Increments: 3 (45 minutes) My final report will be communicated back to the requesting physician by way of shared medical record. Signed by: Farzana Morrow RD documented in this encounterWilson Health12-13-2024 Telephone encounter Note * Telephone Encounter - Rosa Roberto RN - 03/23/2024 9:10 AM EST Gabapentin refill refused. Advised patient to have PCP manage it going forward. Sheryl had advised patient that if she was managing it that no other provider should refill. Patient had PCP refill so Sheryl will not provide further refills. Message was sent to patient on 03/05/24 letting her know this. However, she has not read it. Resent message in reply to her refill request. Gayle Roberto RN, BSN [facility] Work Phone: 1(277) 997-645412-13-2024 Miscellaneous Notes* Telephone Encounter - Rosa Roberto RN - 03/23/2024 9:10 AM EST Gabapentin refill refused. Advised patient to have PCP manage it going forward. Sheryl had advised patient that if she was managing it that no other provider should refill. Patient had PCP refill so Sheryl will not provide further refills. Message was sent to patient on 03/05/24 letting her know this. However, she has not read it. Resent message in reply to her refill request. Gayle Roberto RN, BSN documented in this encounterWilson Health12-10-2024 NoteHNO ID: [id number] Author: ANDRES RUBIO MD Service: ? Author Type: Physician Type: Progress Notes Filed: 03/21/2024 08:39 Note Text: [facility] - FOLLOW UP EVALUATION Erich Gillis DO [address] [place] [phone] Dear Erich Gillis DO: I had the pleasure of seeing Ms. Douglas for follow-up today. As you know she is a 78 year old right-handed female with a history of orthostatic hypotension since 2020. diabetic since 2005 She is seen with her . Subjective Previous Plan-09/13/23: - Low concern for neurodegenerative parkinsonism at this time. See discussion above. Agree with obtaining MRI brain (scheduled for next month). Interval History: The patient reports ongoing back pain and right leg pain, with a history of falling after receiving an injection for pain relief. She has undergone balance therapy, which has led to some improvement in her stability. However, she continues to experience dizziness, particularly with rapid turning or bending over, which also causes lightheadedness. Her memory and mood remain stable, and there have been no significant changes in these areas. Sleep has been stable, although she continues to experience symptoms of restless legs syndrome (RLS), for which she has been using increased doses of clonazepam. She also reports episodes of double vision when turning her head left or right or sometimes when looking downward. Movement Disorders Medications Schedule - as of the start of the visit: Medications Questionnaires: In addition, the following areas that may be affected by abnormal involuntary movements were evaluated: Daily activities Difficulties with eatin (none) Difficulties in dressin (none) Difficulties with hygiene activities: 0 (none) Difficulties with handwritin (none) Difficulties with doing hobbies and other activities: Yes (mild) Difficulties turning in bed: 0 (none) Difficulties getting out of bed, car or chair: 0 (none) Tremors/Gait/Balance Shaking or tremors: 0 (none) Walking and balance problems: Yes (slight) Number of falls in the Last Month: 1 Gait freezin (none) Autonomic/Pain Lightheadeness on standing: Yes (mild) Urinary problems: 0 (none) Constipation problems: Yes (slight) Pain and other sensations: Yes (severe) Speech/Swallowing Speech problems: 0 (none) Drooling: Yes (mild) Chewing and swallowing problems: 0 (none) Sleep/Fatigue Sleep problems: Yes (slight) Daytime sleepiness: Yes (mild) Fatigue: Mood/Behavior Depression: PHQ-9 Score: 6 usually representing mild (5-9) depression. Anxiety: TRINITY-7 Total Score: 2 usually representing no significant (0-4) anxiety. Finally, the following table shows the patient's overall global physical and mental health using the PROMIS scale: PROMIS-10 Flowsheet Row Office Visit from 01/19/2024 in Endocrinology Most recent reading at 01/13/2024 9:15 PM Office Visit from 01/16/2024 in [facility] [place] Most recent reading at 01/13/2024 9:15 PM Global Physical Health T Score 34.9 34.9 Global Mental Health T Score 45.8 45.8 0-10 Standard Pain Scale 2 2 *PROMIS-10 scoring scale: mean = 50, over 50 is above average, under 50 is below average ALLERGIES Allergen Reactions Asa [Salicylates] causes platelet disfunction Aspirin Unknown, Other: See Comments Levaquin [Levofloxa* Rash, Other: See Comments Per pt feels like she on fire Avelox [Moxifloxaci* Intolerance C/O burning feeling on skin Current Outpatient Medications Medication Sig fludrocortisone (FLORINEF) 0.1 mg tablet Take 2 tablets by mouth once daily. pravastatin (PRAVACHOL) 10 mg tablet Take 1 tablet by mouth once daily. semaglutide (OZEMPIC) 1 mg/dose (4 mg/3 mL) pen Inject 1 mg subcutaneously one time a week. blood sugar diagnostic (TRUE METRIX GLUCOSE TEST STRIP) test strip Use with blood glucose test once daily lancets (TRUEPLUS LANCETS) 33 gauge Use with blood glucose test once daily Blood-Glucose Meter (TRUE METRIX GLUCOSE METER) 1 Each once daily. ergocalciferol 50,000 unit capsule (VITAMIN D2, DRISDOL) TAKE 1 CAPSULE ONE TIME WEEKLY clonazePAM (KLONOPIN) 0.5 mg tablet Take 1 tablet by mouth as needed. For restless leg syndrome loratadine (CLARITIN) 10 mg tablet Take 10 mg by mouth once daily. fluticasone (FLONASE) 50 mcg/actuation nasal spray Use 2 Sprays in each nostril twice daily. pen needle, diabetic (COMFORT EZ PEN NEEDLES) 33 gauge x 5/16 ndle To inject weekly MULTIVITAMIN (MULTI-DAY ORAL) Take by mouth once daily. calcium carbonate 600 mg-cholecalciferol 200 units (CALCIUM 600 + D,3,) 600 mg(1,500mg) -200 unit tab Take 1 tablet by mouth once daily. nateglinide (STARLIX) 60 mg tablet Take 1 tablet by mouth three times a day before meals for 4 days. Start after your steroid injection. gabapentin (NEURONTIN) 300 mg capsule Take 1 capsule by mouth two times a day AND 3 capsules daily at (more content not included)...[facility]12-10-2024 History of Present illness Narrative* Andres Rubio MD - 03/20/2024 1:51 PM EST [facility] - FOLLOW UP EVALUATION Erich Gillis, [address] [place] [phone] Dear Erich Gillis, DO: I had the pleasure of seeing Ms. Douglas for follow-up today. As you know she is a 78 year old right-handed female with a history of orthostatic hypotension since 2020. diabetic since 2005 She is seen with her . Subjective Previous Plan-09/13/23: - Low concern for neurodegenerative parkinsonism at this time. See discussion above. Agree with obtaining MRI brain (scheduled for next month). Interval History: The patient reports ongoing back pain and right leg pain, with a history of falling after receivingan injection for pain relief. She has undergone balance therapy, which has led to some improvement in her stability. However, she continues to experience dizziness, particularly with rapid turning orbending over, which also causes lightheadedness. Her memory and mood remain stable, and there have been no significant changes in these areas. Sleephas been stable, although she continues to experience symptoms of restless legs syndrome (RLS), forwhich she has been using increased doses of clonazepam. She also reports episodes of double vision when turning her head left or right or sometimes when looking downward. Movement Disorders Medications Schedule - as of the start of the visit: Medications Questionnaires: In addition, the following areas that may be affected by abnormal involuntary movements were evaluated: Daily activities Difficulties with eatin (none) Difficulties in dressin (none) Difficulties with hygiene activities: 0 (none) Difficulties with handwritin (none) Difficulties with doing hobbies and other activities: Yes (mild) Difficulties turning in bed: 0 (none) Difficulties getting out of bed, car or chair: 0 (none) Tremors/Gait/Balance Shaking or tremors: 0 (none) Walking and balance problems: Yes (slight) Number of falls in the Last Month: 1 Gait freezin (none) Autonomic/Pain Lightheadeness on standing: Yes (mild) Urinary problems: 0 (none) Constipation problems: Yes (slight) Pain and other sensations: Yes (severe) Speech/Swallowing Speech problems: 0 (none) Drooling: Yes (mild) Chewing and swallowing problems: 0 (none) Sleep/Fatigue Sleep problems: Yes (slight) Daytime sleepiness: Yes (mild) Fatigue: Mood/Behavior Depression: PHQ-9 Score: 6 usually representing mild (5-9) depression. Anxiety: TRINITY-7 Total Score: 2 usually representing no significant (0-4) anxiety. Finally, the following table shows the patient's overall global physical and mental health using the PROMIS scale: PROMIS-10 Flowsheet Row Office Visit from 01/19/2024 in Endocrinology Most recent reading at 01/13/2024 9:15 PM Office Visit from 01/16/2024 in [facility]ine [place] Most recent reading at 01/13/2024 9:15 PM Global Physical Health T Score 34.9 34.9 Global Mental Health T Score 45.8 45.8 0-10 Standard Pain Scale 2 2 *PROMIS-10 scoring scale: mean = 50, over 50 is above average, under 50 is below average ALLERGIES Allergen Reactions Asa [Salicylates] causes platelet disfunction Aspirin Unknown, Other: See Comments Levaquin [Levofloxa* Rash, Other: See Comments Per pt feels like she on fire Avelox [Moxifloxaci* Intolerance C/O burning feeling on skin Current Outpatient Medications Medication Sig fludrocortisone (FLORINEF) 0.1 mg tablet Take 2 tablets by mouth once daily. pravastatin (PRAVACHOL) 10 mg tablet Take 1 tablet by mouth once daily. semaglutide (OZEMPIC) 1 mg/dose (4 mg/3 mL) pen Inject 1 mg subcutaneously one time a week. blood sugar diagnostic (TRUE METRIX GLUCOSE TEST STRIP) test strip Use with blood glucose test oncedaily lancets (TRUEPLUS LANCETS) 33 gauge Use with blood glucose test once daily Blood-Glucose Meter (TRUE METRIX GLUCOSE METER) 1 Each once daily. ergocalciferol 50,000 unit capsule (VITAMIN D2, DRISDOL) TAKE 1 CAPSULE ONE TIME WEEKLY clonazePAM (KLONOPIN) 0.5 mg tablet Take 1 tablet by mouth as needed. For restless leg syndrome loratadine (CLARITIN) 10 mg tablet Take 10 mg by mouth once daily. fluticasone (FLONASE) 50 mcg/actuation nasal spray Use 2 Sprays in each nostril twice daily. pen needle, diabetic (COMFORT EZ PEN NEEDLES) 33 gauge x 5/16 ndle To inject weekly MULTIVITAMIN (MULTI-DAY ORAL) Take by mouth once daily. calcium carbonate 600 mg-cholecalciferol 200 units (CALCIUM 600 + D,3,) 600 mg(1,500mg) -200 unit tab Take 1 tablet by mouth once daily. nateglinide (STARLIX) 60 mg tablet Take 1 tablet by mouth three times a day before meals for 4 days. Start after your steroid injection. gabapentin (NEURONTIN) 300 mg capsule Take 1 capsule by mouth two times a day AND 3 capsules daily at bedtime. Do all this for 90 days. esomeprazole (NEXIUM) 20 mg capsule Take 1 capsule by mouth DAILY (6 AM). No current facility-administered medications for this visit. Objective Vital Signs: BP 128/60 (BP Site: Left Arm, BP Position: Sitting, BP Cuff Size: Regular Adult) Pulse 75 Ht 172.7 cm (5' 8 ) Wt 81.6 kg (180 lb) SpO2 97% BMI 27.37 kg/m Orthostatic Vitals: None for this encounter Weight: 81.6 kg (180 lb) Height: 172.7 cm (5' 8 ) No LMP recorded. Patient has had a hysterectomy. Body mass index is 27.37 kg/m . Neurologic Exam: Mental Status: orientation to time, place, person. Good historian. No aphasia Able to spell APPLE forwards and backwards. Knows 7 quarters in $1.75. Cranial nerves: Pupils equal round and reactive to light. No visual field defects. EOMI. Mild choppiness of smooth pursuit. Mild saccadic hypometria (without overshoot). Normal facial sensation. Tongue protrudes midline Motor: No pronator drift. Power is 5/5 throughout. Sensation: Light touch intact in all 4 extremities. Vibration intact at knees bilaterally Reflexes: Normal 2+ reflexes at patellars bilaterally Coordination: Normal finger-to- nose-finger Gait: Stands without pushing herself up, though with mild difficulty. Gait is cautious, but good stride length and good heel-toe strike.+Romberg. Movement exam: Normal tone No resting tremor No postural tremor Slight LUE kinetic tremor No bradykinesia Occasional fidgeting/restless movements of legs, sometimes seen slightly reduced blink rate Assessment and Plan: Assessment Ms. Douglas is a right-handed 78 year old year old female with orthostatic hypotension since 2020 whowas initially referred due to concern for possible parkinsonian disorder, and today presents for follow up. There is no hyposmia, no RBD, no micrographia, and no significant tremor. On exam there is no evidence of parkinsonism (no resting tremor, tone is normal, no bradykinesia). Smooth pursuit is choppy, and saccades are mildly hypometric, which are non-specific findings but frequently seen in SERGER small vessel ischemic disease. Previous EMG shows severe axonal polyneuropathy. Most likely her imbalance and orthostatic hypotension are secondary to diabetic neuropathy. Suspect small vessel ischemic disease may be contributing to eye movement abnormalities and gait disorder. Of note she has significant arthritis in her hands which affects her dexterity. At this point concern for neurodegenerative Parkinsonism is low. The following are the current problems noted and addressed during this visit: Postural instability (primary encounter diagnosis) Abnormal saccadic eye movement Vertigo Plan 03/20/2024 Visit: Gait Disorder - PT could be helpful She can follow up as needed Sincerely, Mimi Ortega MD With Dr. Andres Rubio Time spent 30 min on the day of service, which included preparing to see the patient, [id number] patient care, completing clinical documentation, obtaining and/or reviewing separately obtained history, performing a medically appropriate examination, and counseling and educating the patient/family/ caregiver. Thank you for allowing me to be part of the clinical care of this patient! I look forward to continued participation in the patient s care with you. Please do not hesitate to call with any questions. Sincerely, Andres Rubio MD Movement Disorders Associate Staff [facility] documented in this encounterWilson Health11-25-2024 Telephone encounter Note * Telephone Encounter - Rosa Roberto RN - 03/05/2024 3:24 PM EST Patient advised that Sheryl will no longer provide refills for gabapentin since she requested PCP fill. It was agreed upon that Sheryl would be the only prescriber when she took over managing gabapentin. Since filled by another provider Sheryl will no longer manage this script. Gayle Roberto RN, BSN [facility] Work Phone: 1(176) 345-601111-25-2024 Miscellaneous Notes* Telephone Encounter - Rosa Roberto RN - 03/05/2024 3:24 PM EST Patient advised that Sheryl will no longer provide refills for gabapentin since she requested PCP fill. It was agreed upon that Sheryl would be the only prescriber when she took over managing gabapentin. Since filled by another provider Sheryl will no longer manage this script. Gayle Roberto RN, BSN * Telephone Encounter - Rosa Roberto RN - 03/01/2024 11:33 AM EST Last OV: 12/15/23 Last Refill: Fludrocortisone 12/15/23 Gabapentin 09/20/23 but had PCP fill as pharmacy told her they could not get response from [facility] FU OV: 06/14/24 Appropriate for refill routed to for review due to EM NICO Gayle Roberto RN * Telephone Encounter - Naina Ch - 02/29/2024 3:34 PM EST Physician: Sheryl Schwartz Call from pharmacy requesting refill. Please E-Scribe Last OV: 12/15/23 with Lana Future OV: 06/14/24 with Lana Requested Prescriptions Pending Prescriptions Disp Refills fludrocortisone (FLORINEF) 0.1 mg tablet 30 tablet 3 Sig: Take 2 tablets by mouth once daily. gabapentin (NEURONTIN) 300 mg capsule 450 capsule 0 Sig: Take 1 capsule by mouth two times a day AND 3 capsules daily at bedtime. Do all this for 90 days. Pharmacy Name: [facility] Phone #: [phone] Naina Ch documented in this encounterWilson Health11-22-2024 Telephone encounter Note * Telephone Encounter - Rosa Roberto RN - 03/02/2024 9:34 AM EST Patient sent another request for gabapentin refill. Left for Sheryl to review upon her return next week. AGUSTÍN Ludwig RNN [facility] Work Phone: 1(876) 185-267311-22-2024 Miscellaneous Notes* Telephone Encounter - Rosa Roberto RN - 03/02/2024 9:34 AM EST Patient sent another request for gabapentin refill. Left for Sheryl to review upon her return next week. AGUSTÍN Ludwig RNN * Telephone Encounter - Rosa Roberto RN - 12/22/2023 3:23 PM EDT Message sent to patient to ask why another provider in [place] filled gabapentin for her since Sheryl has begun managing script. GENESIS Ludwig RN * Telephone Encounter - Rosa Roberto RN - 12/22/2023 9:42 AM EDT Last OV: 12/15/23 Last Refill: 09/20/23 FU OV: 06/14/24 Appropriate for refill routed to ES for review Gayle Roberto RN * Telephone Encounter - Naina Ch - 12/21/2023 11:23 AM EDT Physician: Sheryl Garza Call from pharmacy requesting refill. Please E-Scribe Last OV: 12/15/23 with Kayla Future OV: 06/14/24 with Kayla Requested Prescriptions Pending Prescriptions Disp Refills gabapentin (NEURONTIN) 300 mg capsule 450 capsule 0 Sig: Take 1 capsule by mouth two times a day AND 3 capsules daily at bedtime. Do all this for 90 days. Pharmacy Name: [email or web address] Phone #: [phone] Naina Ch documented in this encounterWilson Health11-21-2024 Telephone encounter Note * Telephone Encounter - Rosa Roberto RN - 03/01/2024 11:33 AM EST Last OV: 12/15/23 Last Refill: Fludrocortisone 12/15/23 Gabapentin 09/20/23 but had PCP fill as pharmacy told her they could not get response from [facility] FU OV: 06/14/24 Appropriate for refill routed to for review due to EM NICO Gayle Roberto RN [facility]11-21-2024 NoteHNO ID: [id number] Author: STEVE WAGONER MD Service: ? Author Type: Physician Type: Progress Notes Filed: 03/01/2024 10:15 Note Text: [facility] Virtual Established Visit I have communicated my name and active licensure. The patient's identity and physical location were verified at the time of this visit. Either the patient or their legal physician relations representative has been informed of the risks and benefits of -- and alternatives to -- treatment through a remote evaluation and consents to proceed with the evaluation remotely. Last Visit: 01/16/2024 CC: low back pain and lower extremity pain HPI: Hola Douglas is a pleasant 78 year old female seen in follow-up. Patient was last seen on 01/16/2024. Please refer to that note for additional details. S/p R L4 ANGELA 02/07/2024. Notes was feeling good and tripped over a carpet at home and fell 3 days later 02/09. Notes pain then returned. Notes landed on the R hip and low back pain. Did not get evaluated as did not feel broke anything. A little better, apx 20%. Ongoing R>L low back into the R leg-lateral thigh to the knee. Worse with bending and also walking. Doing HEP Taking 1500mg/day of gabapentin for neuropathy Pain is 08/18. Prior was -11/18. Patient Entered Questionnaires 11/26/2023 01/13/2024 02/28/2024 Spine Questions Pain Location: Lower back Leg Lower back Pain Duration: 6 months - 1 year Pain over last 6 months: Every day or nearly every day in the past 6 months Symptoms from neck/cervical spine: No No Yes Employment Status: Retired Retired Involved in law suit/legal claim: No 11/26/2023 02/28/2024 Spine Red Flags Any type of cancer: No No Unexplained fever: No No Bowel or bladder disfunction: No No Unintentional weight loss: No No Osteoporosis: No No 02/28/2024 Neck Questionnaires Benzel Modified DELANO Score Incomplete PROMIS Score Percentiles 11/26/2023 01/13/2024 02/28/2024 Physical Health Physical Function Percentile 8 4 7 Sleep Percentile 27* 34 34 Fatigue Percentile 5 18* 14 Pain Interference Percentile 8 7 5 11/26/2023 01/13/2024 02/28/2024 PROMIS SOCIAL ROLE SCORE Social Role Satisfaction Percentile 7 7 8 07/25/2023 10/19/2023 01/13/2024 PROMIS Global Health Scale Physical Health Percentile 22* 22* 7 Mental Health Percentile 19* 19* 34 Percentiles provide an indication of how the patient's score ranks in relation to the general population. Higher percentile rankings indicate better function/quality of life. 50th percentile is the average of the general population and indicates half of respondents had a worse score. Depression Screenin11/26/2023 01/13/2024 02/28/2024 PHQ-9 Score 9 8 5 11/26/2023 01/13/2024 02/28/2024 PHQ-9 Self-harm Question Question 9 Not at all Not at all Not at all PHQ-9 Self-Harm (Item 9) response options: 0 Not at all 1 Several days 2 More than half the days 3 Nearly every day PHQ-9 Levels: 0-4 No - mild depression 5-9 Mild depression 10-14 Moderate depression 15-19 Moderately severe depression 20-27 Severe depression ALLERGIES Allergen Reactions Asa [Salicylates] causes platelet disfunction Aspirin Unknown, Other: See Comments Levaquin [Levofloxa* Rash, Other: See Comments Per pt feels like she on fire Avelox [Moxifloxaci* Intolerance C/O burning feeling on skin Current Outpatient Medications Medication Sig pravastatin (PRAVACHOL) 10 mg tablet Take 1 tablet by mouth once daily. semaglutide (OZEMPIC) 1 mg/dose (4 mg/3 mL) pen Inject 1 mg subcutaneously one time a week. nateglinide (STARLIX) 60 mg tablet Take 1 tablet by mouth three times a day before meals for 4 days. Start after your steroid injection. fludrocortisone (FLORINEF) 0.1 mg tablet Take 2 tablets by mouth once daily. gabapentin (NEURONTIN) 300 mg capsule Take 1 capsule by mouth two times a day AND 3 capsules daily at bedtime. Do all this for 90 days. blood sugar diagnostic (TRUE METRIX GLUCOSE TEST STRIP) test strip Use with blood glucose test once daily lancets (TRUEPLUS LANCETS) 33 gauge Use with blood glucose test once daily Blood-Glucose Meter (TRUE METRIX GLUCOSE METER) 1 Each once daily. ergocalciferol 50,000 unit capsule (VITAMIN D2, DRISDOL) TAKE 1 CAPSULE ONE TIME WEEKLY clonazePAM (KLONOPIN) 0.5 mg tablet Take 1 tablet by mouth as needed. For restless leg syndrome loratadine (CLARITIN) 10 mg tablet Take 10 mg by mouth once daily. fluticasone (FLONASE) 50 mcg/actuation nasal spray Use 2 Sprays in each nostril twice daily. pen needle, diabetic (COMFORT EZ PEN NEEDLES) 33 gauge x 5/16 ndle To inject weekly esomeprazole (NEXIUM) 20 mg capsule Take 1 capsule by mouth DAILY (6 AM). MULTIVITAMIN (MULTI-DAY ORAL) Take by mouth once daily. calcium carbonate 600 mg-cholecalciferol 200 units (CALCIUM 600 + D,3,) 600 mg(1,500mg) -200 unit tab Take 1 tablet by mouth once daily. No current facility-a (more content not included)...[facility] 03-01-2024 History of Present illness Narrative* Steve Wagoner MD - 03/01/2024 9:56 AM EST [facility] Virtual Established Visit I have communicated my name and active licensure. The patient's identity and physical location wereverified at the time of this visit. Either the patient or their legal physician relations representative has been informed of the risks and benefits of -- and alternatives to -- treatment through a remote evaluation andconsents to proceed with the evaluation remotely. Last Visit: 01/16/2024 CC: low back pain and lower extremity pain HPI: Hola Douglas is a pleasant 78 year old female seen in follow-up. Patient was last seen on 01/16/2024. Please refer to that note for additional details. S/p R L4 ANGELA 02/07/2024. Notes was feeling good and tripped over a carpet at home and fell 3 days later 02/09. Notes pain then returned. Notes landed on the R hip and low back pain. Did not get evaluated as did not feel broke anything. A little better, apx 20%. Ongoing R>L low back into the R leg-lateral thigh to the knee. Worse with bending and also walking. Doing HEP Taking 1500mg/day of gabapentin for neuropathy Pain is 08/18. Prior was -11/18. Patient Entered Questionnaires 11/26/2023 01/13/2024 02/28/2024 Spine Questions Pain Location: Lower back Leg Lower back Pain Duration: 6 months - 1 year Pain over last 6 months: Every day or nearly every day in the past 6 months Symptoms from neck/cervical spine: No No Yes Employment Status: Retired Retired Involved in law suit/legal claim: No 11/26/2023 02/28/2024 Spine Red Flags Any type of cancer: No No Unexplained fever: No No Bowel or bladder disfunction: No No Unintentional weight loss: No No Osteoporosis: No No 02/28/2024 Neck Questionnaires Benzel Modified DELANO Score Incomplete PROMIS Score Percentiles 11/26/2023 01/13/2024 02/28/2024 Physical Health Physical Function Percentile 8 4 7 Sleep Percentile 27* 34 34 Fatigue Percentile 5 18* 14 Pain Interference Percentile 8 7 5 11/26/2023 01/13/2024 02/28/2024 PROMIS SOCIAL ROLE SCORE Social Role Satisfaction Percentile 7 7 8 07/25/2023 10/19/2023 01/13/2024 PROMIS Global Health Scale Physical Health Percentile 22* 22* 7 Mental Health Percentile 19* 19* 34 Percentiles provide an indication of how the patient's score ranks in relation to the general population. Higher percentile rankings indicate better function/quality of life. 50th percentile is the average of the general population and indicates half of respondents had a worse score. Depression Screenin11/26/2023 01/13/2024 02/28/2024 PHQ-9 Score 9 8 5 11/26/2023 01/13/2024 02/28/2024 PHQ-9 Self-harm Question Question 9 Not at all Not at all Not at all PHQ-9 Self-Harm (Item 9) response options: 0 Not at all 1 Several days 2 More than half the days 3 Nearly every day PHQ-9 Levels: 0-4 No - mild depression 5-9 Mild depression 10-14 Moderate depression 15-19 Moderately severe depression 20-27 Severe depression ALLERGIES Allergen Reactions Asa [Salicylates] causes platelet disfunction Aspirin Unknown, Other: See Comments Levaquin [Levofloxa* Rash, Other: See Comments Per pt feels like she on fire Avelox [Moxifloxaci* Intolerance C/O burning feeling on skin Current Outpatient Medications Medication Sig pravastatin (PRAVACHOL) 10 mg tablet Take 1 tablet by mouth once daily. semaglutide (OZEMPIC) 1 mg/dose (4 mg/3 mL) pen Inject 1 mg subcutaneously one time a week. nateglinide (STARLIX) 60 mg tablet Take 1 tablet by mouth three times a day before meals for 4 days. Start after your steroid injection. fludrocortisone (FLORINEF) 0.1 mg tablet Take 2 tablets by mouth once daily. gabapentin (NEURONTIN) 300 mg capsule Take 1 capsule by mouth two times a day AND 3 capsules daily at bedtime. Do all this for 90 days. blood sugar diagnostic (TRUE METRIX GLUCOSE TEST STRIP) test strip Use with blood glucose test oncedaily lancets (TRUEPLUS LANCETS) 33 gauge Use with blood glucose test once daily Blood-Glucose Meter (TRUE METRIX GLUCOSE METER) 1 Each once daily. ergocalciferol 50,000 unit capsule (VITAMIN D2, DRISDOL) TAKE 1 CAPSULE ONE TIME WEEKLY clonazePAM (KLONOPIN) 0.5 mg tablet Take 1 tablet by mouth as needed. For restless leg syndrome loratadine (CLARITIN) 10 mg tablet Take 10 mg by mouth once daily. fluticasone (FLONASE) 50 mcg/actuation nasal spray Use 2 Sprays in each nostril twice daily. pen needle, diabetic (COMFORT EZ PEN NEEDLES) 33 gauge x 5/16 ndle To inject weekly esomeprazole (NEXIUM) 20 mg capsule Take 1 capsule by mouth DAILY (6 AM). MULTIVITAMIN (MULTI-DAY ORAL) Take by mouth once daily. calcium carbonate 600 mg-cholecalciferol 200 units (CALCIUM 600 + D,3,) 600 mg(1,500mg) -200 unit tab Take 1 tablet by mouth once daily. No current facility-administered medications for this visit. PAST MEDICAL HISTORY Diagnosis Date Carpal tunnel syndrome Diverticulosis of colon (without mention of hemorrhage) Hypotension Localized osteoarthrosis not specified whether primary or secondary, hand Mastodynia Other chronic sinusitis Type II or unspecified type diabetes mellitus without mention of complication, uncontrolled Vertigo Current workup Physical Examination: General: NAD, pleasant Lungs: Symmetric chest expansion Gait: normal Radiological Review: fluoro images Impression: Lumbar radiculopathy, Lumbar stenosis, scoliosis H/o PN Plan: Update lumbar x-ray and R hip given fall, fracture felt less likely. Ongoing HEP and gabapentin as tolerated. May consider switch to lyrica. Update office in 2-4 weeks. If not better may consider spine surgery consult or repeat ANGELA. The patient is instructed to call/seek urgent medical care with worsening pain or change of neurological status. There are no barriers to patient education identified. Management options were discussed in detail.The patient is in agreement with the plan as outlined above and verbalized understanding. Steve Wagoner MD documented in this encounterWilson Health11-20-2024 Telephone encounter Note * Telephone Encounter - Naina Ch - 02/29/2024 3:34 PM EST Physician: Sheryl Schwartz Call from pharmacy requesting refill. Please E-Scribe Last OV: 12/15/23 with Lana Future OV: 06/14/24 with Lana Requested Prescriptions Pending Prescriptions Disp Refills fludrocortisone (FLORINEF) 0.1 mg tablet 30 tablet 3 Sig: Take 2 tablets by mouth once daily. gabapentin (NEURONTIN) 300 mg capsule 450 capsule 0 Sig: Take 1 capsule by mouth two times a day AND 3 capsules daily at bedtime. Do all this for 90 days. Pharmacy Name: [facility] Phone #: [phone] Naina Ch [facility]11-13-2024 Evaluation note* Diagnosis Onset Date Resolution Status Admit Date Anxiety and depression acuteNovember 2023 1:21pmHistory of fallacuteNovember 2023 1:21pm HyperlipidemiaacuteNovember 2023 1:21pmLumbar radiculopathyacuteNovember 2023 1:21pmType 2 diabetes mellitus with complicationsacuteNovember 2023 1:21pmArthritis of carpometacarpal (CMC) joint of right thumbacuteJanuary 2024 9:44amCarpal tunnel syndrome, leftacuteJanuary 2024 9:44am Carpal tunnel syndrome, rightacuteJanuary 2024 9:44am [facility] Work Phone: 1(771) 303-967911-11-2024 Telephone encounter Note* Telephone Encounter - Steve Wagoner MD - 02/20/2024 11:06 AM EST Seen for R LE symptoms-s/p R Lumbar ANGELA, glad to hear is better. Appears now having new symptoms of L LE symptoms s/p fall 02/15. Given fall and pain recommend urgent care to best address and r/o fracture. Steve Wagoner MD [facility] Work Phone: 1(569) 568-188711-11-2024 Miscellaneous Notes* Telephone Encounter - Steve Wagoner MD - 02/20/2024 11:06 AM EST Seen for R LE symptoms-s/p R Lumbar ANGELA, glad to hear is better. Appears now having new symptoms of L LE symptoms s/p fall 02/15. Given fall and pain recommend urgent care to best address and r/o fracture. Steve Wagoner MD * Telephone Encounter - Fadumo Winchester RN - 02/20/2024 10:28 AM EST Neuro SPINE CARE COORDINATION QUICK NOTE S/P 02/06 TFESI L4-5 Pre procedure pain level: anywhere between 3-10 Pain level today: 4 Percentage of pain relief: 100% Has F/U on 03/01 Patient fell on 02/15. Landed on her left hip/back, pain radiating down anterior/lateral part of left leg to her knee. Denies fevers or any loss of bowel/bladder. Slight weakness from falling. Denies any numbness or tingling. Just complaining of the pain. Currently taking gabapentin 1 capsule BID and 3 capsules at bedtime. documented in this encounterWilson Health11-11-2024 Telephone encounter Note * Telephone Encounter - Fadumo Winchester RN - 02/20/2024 10:28 AM EST Neuro SPINE CARE COORDINATION QUICK NOTE S/P 02/06 TFESI L4-5 Pre procedure pain level: anywhere between 3-10 Pain level today: 4 Percentage of pain relief: 100% Has F/U on 03/01 Patient fell on 02/15. Landed on her left hip/back, pain radiating down anterior/lateral part of left leg to her knee. Denies fevers or any loss of bowel/bladder. Slight weakness from falling. Denies any numbness or tingling. Just complaining of the pain. Currently taking gabapentin 1 capsule BID and 3 capsules at bedtime. [facility]11-07-2024 NoteHNO ID: [id number] Author: KARL LION PT Service: ? Author Type: Physical Therapist Type: Progress Notes Filed: 05/10/2024 10:46 Note Text: 05/10/2024 [facility] REHABILITATION AND SPORTS THERAPY PHYSICAL THERAPY DISCONTINUANCE OF CARE Plan of Care Period: Start of Care Date: 01/17/24 Last Visit Date: 02/16/2024 Therapy Program: The following is a summary of the interventions provided for this episode of care; Therapeutic exercise, Neuromuscular re-education, Therapeutic activities, and [facility]-[place] [facility] management Assessment: The following is the goal status: Goals for Episode of Care: established 01/17/24 Patient will demonstrate current home exercise program independently. Status: GOAL MET Improve five time sit to stand by 2.3 seconds to meet MCID and decrease risk of falls and (evaluation: 18.8 seconds). Status: GOAL MET Improve score on Timed Up and Go to <12 sec to decrease risk of falls . Status: GOAL MET Improve score on Timed Up and Go COG (TUG COG) to <13 seconds. Status: GOAL MET Improve 10 meter walk speed to >1.2 m/s to normalize gait speed. Status: GOAL MET Patient Goals: feel better, improve balance, improve dizziness Based on the most recent progress report, patient was progressing slower than expected toward functional goals based on medical complications . Reason for Discontinuation of Care: Patient has not returned to therapy or scheduled additional follow-up appointments. Karl Lion PT Episode Visit Count: 5 Therapist That Will Accept/Oversee The Plan Of Care: Karl Lion PT, DPT Start of Care Date: 01/17/24 Onset Date: 01/16/22 (the last 2 years, getting worse recently) Plan of Care Certification Date: 01/17/24 Next Certification Due Date: 03/17/24 REHABILITATION AND SPORTS THERAPY PHYSICAL THERAPY PROGRESS REPORT PLAN OF CARE UPDATE: Assessment: Hola Cao Douglas demonstrates significant improvement in walking in the community, physical activities, and recreational activities . The patient has progressed toward goals. Patient continues to present with impairments in overall function and symptom management that interfere with physical activities, lifting, bending, sleeping . Current prognosis is Good due to: current objective clinical presentation, Prognosis may be limited due to clinical presentation, multiple co- morbidities, chronic nature of impairments . Patient with GOOD improvements throughout therapy, but still limited by dizziness throughout sessions. 2 PT sessions have been limited by feels of dizziness and off sensation . PT monitored Blood Sugar and BP, both WNL and remained steady. 11:15am- BP 124/78 Blood glucose 113// 11:30am- BP 119/78 Blood glucose 115. PT educated patient that met current therapy goals and recommended MEDICAL follow up for continued symptoms. PT to message referring provider. 1 visit follow up scheduled for after patient meets with medical provider. Patient felt nauseated at the end of the session. The patient will benefit from continued skilled therapy services to meet the updated goals for this plan of care as noted below. Goals for Episode of Care: established 01/17/24 Patient will demonstrate current home exercise program independently. Status: GOAL MET Improve five time sit to stand by 2.3 seconds to meet MCID and decrease risk of falls and (evaluation: 18.8 seconds). Status: GOAL MET Improve score on Timed Up and Go to <12 sec to decrease risk of falls . Status: GOAL MET Improve score on Timed Up and Go COG (TUG COG) to <13 seconds. Status: GOAL MET Improve 10 meter walk speed to >1.2 m/s to normalize gait speed. Status: GOAL MET Patient Goals: feel better, improve balance, improve dizziness Time Frame for Goals and Treatment : 03/17/24 Patient Goals: feel better, improve balance, improve dizziness Planned Interventions, Frequency, and Duration: 1 visit, 1 visit Total Number of Visits Planned: 1 Patient to be seen for Therapeutic exercise (00146), Neuromuscular re-education (79857), Manual therapy (07101), Therapeutic activities (52070), [facility]-[place] [facility] management (74025), Gait Training (13320), Body Mechanics Training, Functional training, General Conditioning PLAN FOR NEXT VISIT: EC actvities, CMILL as tolerated, MONITOR VITALS SUBJECTIVE: Patient reports that she fell since the last PT session. She fell on Tuesday and therefore he back is bothering her more. Patient foot tripped over the rug and her foot caught and she went.. Patient Goals: feel better, improve balance, improve dizziness Functional Limitations: physical activities, lifting, bending, sleeping Pain: Pain Pain Level: 3 Pain Location: Low Back/Lumbar Spine - Right, Hip - Right, Thigh - Right Description: Aching Frequency: Continuous Post Treatment Pain Post Treatment Pain Level: No Change PROMIS Scales 01/26/2024 01/13/2024 11/26/2023 Higher is Better Phys Func - (more content not included)...[facility]11-07-2024 History of Present illness Narrative* Karl Lion, PT - 02/16/2024 10:27 AM EST Images from the original note were not included. Episode Visit Count: 5 Therapist That Will Accept/Oversee The Plan Of Care: Karl Lion PT, DPT Start of Care Date: 01/17/24 Onset Date: 01/16/22 (the last 2 years, getting worse recently) Plan of Care Certification Date: 01/17/24 Next Certification Due Date: 03/17/24 REHABILITATION AND SPORTS THERAPY PHYSICAL THERAPY PROGRESS REPORT PLAN OF CARE UPDATE: Assessment: Hola Douglas demonstrates significant improvement in walking in the community, physical activities, and recreational activities . The patient has progressed toward goals. Patient continues to present with impairments in overall function and symptom management that interfere with physical activities, lifting, bending, sleeping . Current prognosis is Good due to: current objective clinical presentation, Prognosis may be limited due to clinical presentation, multiple co- morbidities, chronic nature of impairments . Patient with GOOD improvements throughout therapy, but still limited by dizziness throughout sessions. 2 PT sessions have been limited by feels of dizziness and off sensation . PT monitored Blood Sugar and BP, both WNL and remained steady. 11:15am- BP 124/78 Blood glucose 113//11:30am- BP 119/78 Blood glucose 115. PT educated patient that met current therapy goals and recommended MEDICAL follow up for continued symptoms. PT to message referring provider. 1 visit follow up scheduled for after patient meets with medical provider. Patient felt nauseated at the end of the session. The patient will benefit from continued skilled therapy services to meet the updated goals for this plan of care as noted below. Goals for Episode of Care: established 01/17/24 Patient will demonstrate current home exercise program independently. Status: GOAL MET Improve five time sit to stand by 2.3 seconds to meet MCID and decrease risk of falls and (evaluation: 18.8 seconds). Status: GOAL MET Improve score on Timed Up and Go to <12 sec to decrease risk of falls . Status: GOAL MET Improve score on Timed Up and Go COG (TUG COG) to <13 seconds. Status: GOAL MET Improve 10 meter walk speed to >1.2 m/s to normalize gait speed. Status: GOAL MET Patient Goals: feel better, improve balance, improve dizziness Time Frame for Goals and Treatment : 03/17/24 Patient Goals: feel better, improve balance, improve dizziness Planned Interventions, Frequency, and Duration: 1 visit, 1 visit Total Number of Visits Planned: 1 Patient to be seen for Therapeutic exercise (55337), Neuromuscular re-education (98547), Manual therapy (59056), Therapeutic activities (27437), [facility]-[place] [facility] management (48404), Gait Training (78555), Body Mechanics Training, Functional training, General Conditioning PLAN FOR NEXT VISIT: EC actvities, CMILL as tolerated, MONITOR VITALS SUBJECTIVE: Patient reports that she fell since the last PT session. She fell on Tuesday and therefore he back is bothering her more. Patient foot tripped over the rug and her foot caught and she went.. Patient Goals: feel better, improve balance, improve dizziness Functional Limitations: physical activities, lifting, bending, sleeping Pain: Pain Pain Level: 3 Pain Location: Low Back/Lumbar Spine - Right, Hip - Right, Thigh - Right Description: Aching Frequency: Continuous Post Treatment Pain Post Treatment Pain Level: No Change PROMIS Scales 01/26/2024 01/13/2024 11/26/2023 Higher is Better Phys Func - Score 33 (moderate dysfunction) 36 (moderate dysfunction) Phys Func - Percentile 4 8 Self-Eff Symptom - Score 42 (Average) Self-Eff Symptom - Percentile 21 T-scores: mean of general population = 50. 5 points is clinically meaningfully difference Percentiles provide an indication of how the patient's score ranks in relation to the general population. Higher percentile rankings indicate better function/quality of life. 50th percentile is the average of the general population and indicates half of respondents had a worse score. OBJECTIVE MEASURES WITH LEVEL OF FUNCTION: Posture / Alignment Posture: Rounded shoulders Gait Gait: Independent Gait Distance (feet): 100+ Gait Device: None Gait Deviations: General Deviations General Deviations/Observations: Mela decreased, Wide base of support (Slow transitions) Gait Observation: Slow transitions and cautious turning Functional Performance Test Results Assistive Device: None 10 Meter Walk Test Trial 1 (seconds): 4.8 10 Meter Walk Test Trial 2 (seconds): 4.9 10 Meter Walk Test Average (m/sec): 1.24 5 Times Sit to Stand Test : 14.21 sec Timed Up and Go (sec): 9.35 sec Timed Up and Go Cognitive (sec): 9.5 sec Timed Up and Go Cognitive Comments: Serial 3's backwards from 100 Ramirez Balance Scale Sit to stand : 3 - Able to stand independently using hands Standing unsupported : 4 - Able to stand safety 2 min Sitting : 4 - Able to sit safety and securely for 2 min Stand to sit: 4 - Sits safey minimal use of hands Transfers: 4 - Able to transfer safety with minor use of hands Standing unsupported with eyes closed : 3 - Able to stand 10 sec with supervision Standing unsupported with feet together : 3 - Able to place feet together independently and stand for 1 min with supervision Reaching forward : 2 - Can reach forward >2 inches Picking up object from floor : 0 - Unable to try/needs assist to keep from losing balance or falling (Patient refused to complete) Looking over shoulder: Looks behind from both sides and weight shifts well Turn 360 degrees : 0 - Needs assistance while turning (Able to complete, then fall backwards after) Alternate foot on step: 4 - Able to stand independently and safely and complete 8 steps in 20 sec Tandem standing : 3 - Able to place foot ahead of other independently and hold 30 sec Standing on leg : 2 - Able to lift leg independently and hold equal to or > 3 sec Ramirez Balance Test Total (calculated): 40 Functional Gait Assessment Gait level surface : 3 - Normal- walks 20' no assist device, good speed, no imbalance, normal gait pattern Change in gait speed: 3 - Normal- albe to smoothly change walking speed without loss of balance or gait deivations. Shows significant difference in walking speeds Gait and horizontal head turns: 2 - Mild impairment- performs R/L head turns smoothly with slight change in gait velocity, minor disruption to smooth gait path or uses assistive device Gait and vertical head turns: 1 - Moderate impairment- performs R/L head turns with moderate changein gait velocity, slows down, staggers but recovers, can continue to walk Gait and pivot: 2 - Mild impairment- pivot turns safely in >3 sec, stops, no loss of balance Step over obstacle: 2 - Mild impairment- is able to step over box, but must slow down and adjust steps to clear box Gait with narrow base of support : 2 - Mild impairment- ambulates 7-9 steps Gait with eyes closed : 1 - Moderate impairment- walks 20', slow speed, abnormal gait pattern, evidence for imbalance, deviates 10-15 [address], requires more than 9 sec to ambulate 20 Ambulates backward : 3 - Normal- walks 20' no assist device, good speed, no imbalance, normal gait pattern, deviates no more than 6 outside 12 [address] Steps: 2 - Mild impairment- alternating feet, must use rail Functional Gait Assessment Total : 21 Vitals BP: 116/74 Pulse: 80 Intra BP 1: 119/76 Post BP: 119/78 11:15am- BP 124/78 Blood glucose 113 11:30am- BP 119/78 Blood glucose 115 TREATMENT: Therapeutic Exercise: 1: Vitals assessment and education of vitals and management for overall health: pre and post PT 2: FORCED rest breaks in session due to low activity tolerance and Increased sysmptoms with exercises without breaks 3: Comparison on BP cuff in PT session vs home BP cuff Skilled Intervention: Patient was educated in proper exercise technique and purpose for exercises. Reviewed and educated patient on additions/changes for home exercise program as above (*). Therapeutic Activity: 1: Patient monitoring- Patient feeling dizzy and internally swaying at end of session. PT monitoring patient's vitals and blood sugar, both WNL. Monitored patient for >10 minutes and measured again. WNL. 2: Discussion on medical needs for therapy Skilled Intervention: Educated on proper/safe technique for activities performed today. Activity progression based on professional judgment. Neuromuscular Re-Education: 1: Completion of outcome measues: FGA< BBS, 5xSTS, TUG, TUG Cog 2: Education on outcome measures and progress throughout therapy Skilled Intervention: Skilled judgment used to assess appropriate program for balance and coordination activity. Patient education as noted. Billing Therapeutic Exercise Treatment Minutes: 14 Therapeutic Activity Treatment Minutes: 15 Neuromuscular Re-Education Treatment Minutes: 35 Skilled Treatment Time Minutes (timed and untimed codes): 64 Total Session Time (minutes): 64 Session Start Time : 1025 Session Stop Time : 1129 Karl Lion PT documented in this encounterWilson [facility]11-04-[facility]24 Telephone encounter Note * Telephone Encounter - Elayne Hdz RN - 02/13/2024 11:08 AM EST Post Spine Injection phone call: Right L4-5 transforaminal epidural steroid injection on 02/07/2024 Patient denies fever, chills, new headache, prolonged numbness nor exacerbation of pain status. Injection site(s) flat and dry with no redness nor drainage. Pre Procedure Pain level: Pain is currently 3/10, but gets up to 10/10 at the worst. Immediately Post Procedure 2 Pain level today (0 = none - 10 = extreme) 4 was at 6 yesterday Percentage of pain relief: 100% than she fell went 20% (fall) Blood Glucose monitoring: Taking the N[place] keeping it down 120 mg/dL February 13, 2024 Patientencouraged to monitor blood glucose for next 24 -48 for elevations. Patient verbalized understanding that it may take up to 14 days to realize full benefit of spinal injection. Follow up as indicated on order: Ordering Provider Via Virtual Visit: 2-4 weeks on 03/[address] Wagoner. Patient reminded to bring pain diary to follow appointment. If follow up appointment indicated on order, patient encouraged to schedule follow up appointment 2-4 weeks post procedure by calling [phone] Patient does not have any questions or concerns. Patient will call office with any questions or concerns. Patient said was going to call Dr. Wagoner's office. Had the injection was feeling good. Was at 100%relief and than she fell on last . Tripped on her carpet. Landed on her left hip/back. Saidstarted having pain across lower back like before down left leg (outside/front) to the knee. No newloss of bowel or bladder control. Did have some slight weakness from fall. No tingling or numbness.It is just pain that is the problem. Pain was a 6 yesterday and today is a 4. Has a follow up VV on03/01. Is taking Gabapentin 300 mg 1 BID and 3 at bedtime. [facility]11-04-2024 Miscellaneous Notes* Telephone Encounter - Elayne Hdz RN - 02/13/2024 11:08 AM EST Post Spine Injection phone call: Right L4-5 transforaminal epidural steroid injection on 02/07/2024 Patient denies fever, chills, new headache, prolonged numbness nor exacerbation of pain status. Injection site(s) flat and dry with no redness nor drainage. Pre Procedure Pain level: Pain is currently 3/10, but gets up to 10/10 at the worst. Immediately Post Procedure 2 Pain level today (0 = none - 10 = extreme) 4 was at 6 yesterday Percentage of pain relief: 100% than she fell went 20% (fall) Blood Glucose monitoring: Taking the N[place]ide keeping it down 120 mg/dL February 13, 2024 Patientencouraged to monitor blood glucose for next 24 -48 for elevations. Patient verbalized understanding that it may take up to 14 days to realize full benefit of spinal injection. Follow up as indicated on order: Ordering Provider Via Virtual Visit: 2-4 weeks on 03/[address] Wagoner. Patient reminded to bring pain diary to follow appointment. If follow up appointment indicated on order, patient encouraged to schedule follow up appointment 2-4 weeks post procedure by calling [phone] Patient does not have any questions or concerns. Patient will call office with any questions or concerns. Patient said was going to call Dr. Wagoner's office. Had the injection was feeling good. Was at 100%relief and than she fell on last . Tripped on her carpet. Landed on her left hip/back. Saidstarted having pain across lower back like before down left leg (outside/front) to the knee. No newloss of bowel or bladder control. Did have some slight weakness from fall. No tingling or numbness.It is just pain that is the problem. Pain was a 6 yesterday and today is a 4. Has a follow up VV on03/01. Is taking Gabapentin 300 mg 1 BID and 3 at bedtime. * Telephone Encounter - Elayne Hdz RN - 02/10/2024 9:09 AM EDT Left message on voicemail for patient to call office back or to read [employer] message regarding PostSpine Injection phone call: Right L4-5 transforaminal epidural steroid injection on 02/07/2024 documented in this encounterWilson Health11-01-2024 Telephone encounter Note * Telephone Encounter - Elayne Hdz RN - 02/10/2024 9:09 AM EDT Left message on voicemail for patient to call office back or to read [employer] message regarding PostSpine Injection phone call: Right L4-5 transforaminal epidural steroid injection on 02/07/2024 [facility]10-31-2024 NoteHNO ID: [id number] Author: KARL LION PT Service: ? Author Type: Physical Therapist Type: Progress Notes Filed: 02/09/2024 16:10 Note Text: Episode Visit Count: 4 Therapist That Will Accept/Oversee The Plan Of Care: Karl Lion PT, DPT Start of Care Date: 01/17/24 Onset Date: 01/16/22 (the last 2 years, getting worse recently) Plan of Care Certification Date: 01/17/24 Next Certification Due Date: 03/17/24 REHABILITATION AND SPORTS THERAPY PHYSICAL THERAPY TREATMENT NOTE ASSESSMENT: Hola Douglas tolerated the session with fatigue, increased symptoms, and no issues. She demonstrated difficulty with posterior balance at this date. Further progressions recommended with continued rest breaks due to low activity tolerance. The patient will continue to benefit from ongoing skilled physical therapy to progress toward set goals. PLAN FOR NEXT VISIT: EC actvities, CMILL as tolerated, MONITOR VITALS SUBJECTIVE: Patient reports she got an injection in her back. Back pain is feeling a little better. Patient reports sugars have been a little high, but under control. Pain: Pain Pain Location: Low Back/Lumbar Spine - Right, Hip - Right, Thigh - Right Description: Aching Frequency: Continuous Post Treatment Pain Post Treatment Pain Level: No Change OBJECTIVE MEASURES WITH LEVEL OF FUNCTION: Posture / Alignment Posture: Rounded shoulders Gait Gait: Independent Gait Distance (feet): 100+ Gait Device: None Gait Deviations: General Deviations General Deviations/Observations: Mela decreased, Wide base of support (Slow transitions) Gait Observation: Slow transitions and cautious turning Vitals BP: 144/84 Pulse: 63 Post BP: 144/84 TREATMENT: Therapeutic Exercise: 1: Vitals assessment and education of vitals and management for overall health: pre and post PT 2: FORCED rest breaks in session due to low activity tolerance and Increased sysmptoms with exercises without breaks Skilled Intervention: Patient was educated in proper exercise technique and purpose for exercises. Reviewed and educated patient on additions/changes for home exercise program as above (*). Neuromuscular Re-Education: 1: STS on FOAM balance beam 1 x 10- D/C'ed due to back pain 2: LAteral walking on FOAM balance beam 5 feet x 6 rounds 3: Standing WBOS on FOAM balance beam EO x 30 seconds, EC x 30 seconds 4: Standing NBOS EC on FOAM 3 x 3 seconds. D/C due to difficulty 5: Standing self Ball toss on FOAM balance beam x 2 minutes with increased loss of anterior and posterior balance 6: Standing on FOAM balance beam valdovinos toss to PT x 2 minutes with 2 Losses of balance requring patient to sit down on bed 7: Blaze pods 3 LE pods 1 x 30 seconds with B LEs, no UE assist 8: Blaze pods 3 LE only pods with no UE assist with 3 pods on 3 different levels 3 rounds x 30 seconds Skilled Intervention: Skilled judgment used to assess appropriate program for balance and coordination activity. Patient education as noted. Billing Therapeutic Exercise Treatment Minutes: 8 Neuromuscular Re-Education Treatment Minutes: 30 Skilled Treatment Time Minutes (timed and untimed codes): 38 Total Session Time (minutes): 38 Session Start Time : 1522 Session Stop Time : 1600 Karl Lion [facility]10-31-2024 History of Present illness Narrative* Karl Lion, PT - 02/09/2024 3:23 PM EDT Episode Visit Count: 4 Therapist That Will Accept/Oversee The Plan Of Care: Karl Lino PT, DPT Start of Care Date: 01/17/24 Onset Date: 01/16/22 (the last 2 years, getting worse recently) Plan of Care Certification Date: 01/17/24 Next Certification Due Date: 03/17/24 REHABILITATION AND SPORTS THERAPY PHYSICAL THERAPY TREATMENT NOTE ASSESSMENT: Hola Cao Douglas tolerated the session with fatigue, increased symptoms, and no issues. She demonstrated difficulty with posterior balance at this date. Further progressions recommended with continued rest breaks due to low activity tolerance. The patient will continue to benefit from ongoing skilled physical therapy to progress toward set goals. PLAN FOR NEXT VISIT: EC actvities, CMILL as tolerated, MONITOR VITALS SUBJECTIVE: Patient reports she got an injection in her back. Back pain is feeling a little better.Patient reports sugars have been a little high, but under control. Pain: Pain Pain Location: Low Back/Lumbar Spine - Right, Hip - Right, Thigh - Right Description: Aching Frequency: Continuous Post Treatment Pain Post Treatment Pain Level: No Change OBJECTIVE MEASURES WITH LEVEL OF FUNCTION: Posture / Alignment Posture: Rounded shoulders Gait Gait: Independent Gait Distance (feet): 100+ Gait Device: None Gait Deviations: General Deviations General Deviations/Observations: Mela decreased, Wide base of support (Slow transitions) Gait Observation: Slow transitions and cautious turning Vitals BP: 144/84 Pulse: 63 Post BP: 144/84 TREATMENT: Therapeutic Exercise: 1: Vitals assessment and education of vitals and management for overall health: pre and post PT 2: FORCED rest breaks in session due to low activity tolerance and Increased sysmptoms with exercises without breaks Skilled Intervention: Patient was educated in proper exercise technique and purpose for exercises. Reviewed and educated patient on additions/changes for home exercise program as above (*). Neuromuscular Re-Education: 1: STS on FOAM balance beam 1 x 10- D/C'ed due to back pain 2: LAteral walking on FOAM balance beam 5 feet x 6 rounds 3: Standing WBOS on FOAM balance beam EO x 30 seconds, EC x 30 seconds 4: Standing NBOS EC on FOAM 3 x 3 seconds. D/C due to difficulty 5: Standing self Ball toss on FOAM balance beam x 2 minutes with increased loss of anterior and posterior balance 6: Standing on FOAM balance beam valdovinos toss to PT x 2 minutes with 2 Losses of balance requring patient to sit down on bed 7: Blaze pods 3 LE pods 1 x 30 seconds with B LEs, no UE assist 8: Blaze pods 3 LE only pods with no UE assist with 3 pods on 3 different levels 3 rounds x 30 seconds Skilled Intervention: Skilled judgment used to assess appropriate program for balance and coordination activity. Patient education as noted. Billing Therapeutic Exercise Treatment Minutes: 8 Neuromuscular Re-Education Treatment Minutes: 30 Skilled Treatment Time Minutes (timed and untimed codes): 38 Total Session Time (minutes): 38 Session Start Time : 1522 Session Stop Time : 1600 Karl Lion PT documented in this encounterWilson Health10-28-[facility]24 Hospital Discharge instructions Patient Education 02/06/2024 08:58:38 Urethral Dilation Urethral Dilation Urethral dilation is a procedure to stretch open (dilate) the urethra. The urethra is the tube thatdrains pee (urine) from the bladder out of the body. In females, the urethra opens above the vaginal opening. In males, the urethra opens at the tip of the penis. Urethral dilation is usually done to treat narrowing of the urethra (urethral stricture), which canmake it difficult to pee (urinate). Urethral strictures can be caused by scar tissue, infection, injury, or surgery. Urethral dilation widens the urethra so that you can pee normally. Urethral dilation is done through the opening of the urethra. There are no incisions made during the procedure. Tell a health care provider about: Any allergies you have. All medicines you are taking, including vitamins, herbs, eye drops, creams, and xzgb-ozv-vnpapbj medicines. Any problems you or family members have had with anesthesia. Any bleeding problems you have. Any surgeries you have had. Any medical conditions you have. Whether you are or may be . What are the risks? Your health care provider will talk with you about risks. These may include: Bleeding. Infection. A return of urethral stricture, which requires repeating the dilation procedure or more surgery. Damage to the urethra, which may require reconstructive surgery. Allergic reactions to medicines. What happens before the procedure? Medicines Ask your provider about: Changing or stopping your regular medicines. These include any diabetes medicines or blood thinnersyou take. Taking medicines such as aspirin and ibuprofen. These medicines can thin your blood. Do not take them unless your provider tells you to. Taking yqwo-orm-iwcoubh medicines, vitamins, herbs, and supplements. General instructions Follow instructions from your provider about what you may eat and drink. If you will be going home right after the procedure, plan to have a responsible adult: ?Take you home from the hospital or clinic. You will not be allowed to drive. ?Care for you for the time you are told. Ask your provider: ?How your surgery site will be marked. ?What steps will be taken to help prevent infection. These steps may include: ?Removing hair at the surgery site. ?Washing skin with a soap that kills germs. ?Taking antibiotics. What happens during the procedure? An IV may be inserted into one of your veins. You may be given: ?A local anesthetic to numb your urethral opening. This will be applied as a gel that will also lubricate the opening of the urethra. ?A sedative. This helps you relax. ?Anesthesia. This keeps you from feeling pain. It will make you fall asleep for surgery. A thin tube with a light and camera on the end (cystoscope) will be inserted into your urethra. Your urethra will be rinsed (irrigated) with a germ-free (sterile) water solution. Narrow parts of your urethra will be stretched open using a dilator tool. Your surgeon will start with a very thin dilator, then use wider dilators as needed. A thin tube with an inflatable balloon on the tip may be inserted into your urethra. The balloon may be inflated to help stretch your urethra open. The balloon may be coated with a medicine to help the urethra stay open longer. Your urethra will be irrigated. A catheter will be inserted into your bladder at the end of the procedure. The procedure may vary among providers and hospitals. What happens after the procedure? After the procedure, it is common to have: ?Burning pain when peeing. ?Blood in your pee. ?A need to pee frequently. You will be asked to pee before you leave the hospital or clinic. Your pee flow should improve within a few days. You may have a catheter in your bladder for 2 3 days following your procedure. Follow these instructions at home: Medicines Take mcix-osz-zdbfhdi and prescription medicines only as told by your provider. If you were prescribed antibiotics, take them as told by your provider. Do not stop using the antibiotic even if you start to feel better. Ask your provider if the medicine prescribed to you: ?Requires you to avoid driving or using machinery. ?Can cause constipation. You may need to take these actions to prevent or treat constipation: ?Take rvsg-ldz-ysldrom or prescription medicines. ?Eat foods that are high in fiber, such as beans, whole grains, and fresh fruits and vegetables. ?Limit foods that are high in fat and processed sugars, such as fried or sweet foods. General instructions If you were given a sedative during the procedure, it can affect you for several hours. Do not drive or operate machinery until your provider says that it is safe. If you were sent home with a soft tube (catheter) to help keep your urethra open, follow your provider's instructions about how and when to use it. Drink enough fluid to keep your pee pale yellow. Return to your normal activities as told by your provider. Ask your provider what activities are safe for you. Keep all follow-up visits. Your provider will check your healing and adjust your treatment plan as needed. Contact a health care provider if: Your pee is cloudy and smells bad. You develop new bleeding when you pee. You pass blood clots when you pee. You have pain that does not get better with medicine. You have a fever. Your genital area is swollen, bruised, or discolored. This includes: ?The penis, scrotum, and inner thighs for males. ?The outer genital organs (vulva) and inner thighs for females. Get help right away if: You develop new bleeding that does not stop. You cannot pee. Your catheter stops draining pee. You cannot pee after your catheter is removed. These symptoms may be an emergency. Get help right away. Call 911. Do not wait to see if the symptoms will go away. Do not drive yourself to the hospital. This information is not intended to replace advice given to you by your health care provider. Make sure you discuss any questions you have with your health care provider. Document Revised: 01/20/2023 Document Reviewed: 01/20/2023 [employer] Patient Education 2023 [employer]. Follow Up Care 07/26/2023 09:21:35 With:HIRO BRICENO, Ryan Holland, URL Address: [address] [place], [place] [id number]- When: Unknown [facility] [place] [id number] NotePatient Education Urology Urethral Dilation Urethral dilation is a procedure to stretch open (dilate) the urethra. The urethra is the tube thatdrains pee (urine) from the bladder out of the body. In females, the urethra opens above the vaginal opening. In males, the urethra opens at the tip of the penis. Urethral dilation is usually done to treat narrowing of the urethra (urethral stricture), which canmake it difficult to pee (urinate). Urethral strictures can be caused by scar tissue, infection, injury, or surgery. Urethral dilation widens the urethra so that you can pee normally. Urethral dilation is done through the opening of the urethra. There are no incisions made during the procedure. Tell a health care provider about: ??? Any allergies you have. ??? All medicines you are taking, including vitamins, herbs, eye drops, creams, and tqqu-xbc-dkiejht medicines. ??? Any problems you or family members have had with anesthesia. ??? Any bleeding problems you have. ??? Any surgeries you have had. ??? Any medical conditions you have. ??? Whether you are or may be . What are the risks? Your health care provider will talk with you about risks. These may include: ??? Bleeding. ??? Infection. ??? A return of urethral stricture, which requires repeating the dilation procedure or more surgery. ??? Damage to the urethra, which may require reconstructive surgery. ??? Allergic reactions to medicines. What happens before the procedure? Medicines Ask your provider about: ??? Changing or stopping your regular medicines. These include any diabetes medicines or blood thinners you take. ??? Taking medicines such as aspirin and ibuprofen. These medicines can thin your blood. Do not take them unless your provider tells you to. ??? Taking ioxi-eza-jlaxqkq medicines, vitamins, herbs, and supplements. General instructions ??? Follow instructions from your provider about what you may eat and drink. ??? If you will be going home right after the procedure, plan to have a responsible adult: ? Take you home from the hospital or clinic. You will not be allowed to drive. ? Care for you for the time you are told. ??? Ask your provider: ? How your surgery site will be marked. ? What steps will be taken to help prevent infection. These steps may include: ? Removing hair at the surgery site. ? Washing skin with a soap that kills germs. ? Taking antibiotics. What happens during the procedure? An IV may be inserted into one of your veins. ??? You may be given: ? A local anesthetic to numb your urethral opening. This will be applied as a gel that will also lubricate the opening of the urethra. ? A sedative. This helps you relax. ? Anesthesia. This keeps you from feeling pain. It will make you fall asleep for surgery. ??? A thin tube with a light and camera on the end (cystoscope) will be inserted into your urethra. ??? Your urethra will be rinsed (irrigated) with a germ-free (sterile) water solution. ??? Narrow parts of your urethra will be stretched open using a dilator tool. Your surgeon will start with a very thin dilator, then use wider dilators as needed. ??? A thin tube with an inflatable balloon on the tip may be inserted into your urethra. The balloon may be inflated to help stretch your urethra open. The balloon may be coated with a medicine to help the urethra stay open longer. ??? Your urethra will be irrigated. ??? A catheter will be inserted into your bladder at the end of the procedure. The procedure may vary among providers and hospitals. What happens after the procedure? After the procedure, it is common to have: ? Burning pain when peeing. ? Blood in your pee. ? A need to pee frequently. ??? You will be asked to pee before you leave the hospital or clinic. ??? Your pee flow should improve within a few days. ??? You may have a catheter in your bladder for 2?3 days following your procedure. Follow these instructions at home: Medicines ??? Take zhgb-fyb-iqpimfx and prescription medicines only as told by your provider. ??? If you were prescribed antibiotics, take them as told by your provider. Do not stop using the antibiotic even if you start to feel better. ??? Ask your provider if the medicine prescribed to you: ? Requires you to avoid driving or using machinery. ? Can cause constipation. You may need to take these actions to prevent or treat constipation: ? Take wruh-dzn-fdvdurd or prescription medicines. ? Eat foods that are high in fiber, such as beans, whole grains, and fresh fruits and vegetables. ? Limit foods that are high in fat and processed sugars, such as fried or sweet foods. General instructions ??? If you were given a sedative during the procedure, it can affect you for several hours. Do not drive or operate machinery until your provider says that it is safe. ??? If you were sent home with a soft tube (catheter) (more content not included)...[facility]10-24-2024 NoteHNO ID: [id number] Author: KARL LION, PT Service: ? Author Type: Physical Therapist Type: Progress Notes Filed: 02/02/2024 12:54 Note Text: Episode Visit Count: 3 Therapist That Will Accept/Oversee The Plan Of Care: Karl Lion PT, DPT Start of Care Date: 01/17/24 Onset Date: 01/16/22 (the last 2 years, getting worse recently) Plan of Care Certification Date: 01/17/24 Next Certification Due Date: 03/17/24 RE[facility]AB[facility]ATION AND SPORTS THERAPY PHYSICAL THERAPY TREATMENT NOTE ASSESSMENT: Hola Douglas tolerated the session with increased symptoms and no issues. She demonstrated better tolerance to PT session with FORCED rest breaks. Patient also demonstrated INCREASED visual dependence for balance and decreased use of vestibular system. Further progressions recommended as patient can tolerate. The patient will continue to benefit from ongoing skilled physical therapy to progress toward set goals. PLAN FOR NEXT VISIT: EC actvities, CMILL as tolerated, MONITOR VITALS SUBJECTIVE: Patient reports that she was feeling better after leaving last session. Patient took her blood sugar this morning at it was 120. Patient also brought home blood pressure cuff and wants to compare it to ours here Pain: Pain Pain Location: Low Back/Lumbar Spine - Right, Hip - Right, Thigh - Right Description: Aching Frequency: Continuous Additional Pain Information : Specific pain level not discussed in order to focus on movement/functional goals Post Treatment Pain Post Treatment Pain Level: No Change OBJECTIVE MEASURES WITH LEVEL OF FUNCTION: Posture / Alignment Posture: Rounded shoulders Gait Gait: Independent Gait Distance (feet): 1000+ Gait Device: None Gait Deviations: General Deviations General Deviations/Observations: Mela decreased, Wide base of support (Slow transitions) Gait Observation: Slow transitions and cautious turning Vitals BP: 121/80 Pulse: 83 Post BP: 135/83 TREATMENT: Therapeutic Exercise: 1: Vitals assessment and education of vitals and management for overall health: pre and post PT 2: FORCED rest breaks in session due to low activity tolerance and symptoms last session 3: Educaiton on continued vitals and Blood Sugar monitoring at home- bring BG monitor to session Skilled Intervention: Patient was educated in proper exercise technique and purpose for exercises. Patient education as noted. Neuromuscular Re-Education: 1: CMILL traffic jam x 4 minutes 2: -Increased instability with L SLS vs R SLS 3: 3 systems of baalnce and sensory organization training 4: Discussion on Vestibular system and role of vestibular system for balance 5: Completion of mCTSIB, no FOAM due to imbalance 6: Additions to HEP 7: *WBOS EC in a corner with chair in front 2 x30 seconds Skilled Intervention: Skilled judgment used to assess appropriate program for balance and coordination activity. Patient education as noted. Billing Therapeutic Exercise Treatment Minutes: 10 Neuromuscular Re-Education Treatment Minutes: 30 Skilled Treatment Time Minutes (timed and untimed codes): 40 Total Session Time (minutes): 47 Session Start Time : 1203 Session Stop Time : 1250 Karl Lion [facility] [place]10-24-2024 History of Present illness Narrative* Karl Lion, PT - 02/02/2024 12:07 PM EDT Episode Visit Count: 3 Therapist That Will Accept/Oversee The Plan Of Care: Karl Lion PT, DPT Start of Care Date: 01/17/24 Onset Date: 01/16/22 (the last 2 years, getting worse recently) Plan of Care Certification Date: 01/17/24 Next Certification Due Date: 03/17/24 REHABILITATION AND SPORTS THERAPY PHYSICAL THERAPY TREATMENT NOTE ASSESSMENT: Hola Douglas tolerated the session with increased symptoms and no issues. She demonstrated better tolerance to PT session with FORCED rest breaks. Patient also demonstrated INCREASED visual dependence for balance and decreased use of vestibular system. Further progressions recommendedas patient can tolerate. The patient will continue to benefit from ongoing skilled physical therapyto progress toward set goals. PLAN FOR NEXT VISIT: EC actvities, CMILL as tolerated, MONITOR VITALS SUBJECTIVE: Patient reports that she was feeling better after leaving last session. Patient took her blood sugar this morning at it was 120. Patient also brought home blood pressure cuff and wants tocompare it to ours here Pain: Pain Pain Location: Low Back/Lumbar Spine - Right, Hip - Right, Thigh - Right Description: Aching Frequency: Continuous Additional Pain Information : Specific pain level not discussed in order to focus on movement/functional goals Post Treatment Pain Post Treatment Pain Level: No Change OBJECTIVE MEASURES WITH LEVEL OF FUNCTION: Posture / Alignment Posture: Rounded shoulders Gait Gait: Independent Gait Distance (feet): 1000+ Gait Device: None Gait Deviations: General Deviations General Deviations/Observations: Mela decreased, Wide base of support (Slow transitions) Gait Observation: Slow transitions and cautious turning Vitals BP: 121/80 Pulse: 83 Post BP: 135/83 TREATMENT: Therapeutic Exercise: 1: Vitals assessment and education of vitals and management for overall health: pre and post PT 2: FORCED rest breaks in session due to low activity tolerance and symptoms last session 3: Educaiton on continued vitals and Blood Sugar monitoring at home- bring BG monitor to session Skilled Intervention: Patient was educated in proper exercise technique and purpose for exercises. Patient education as noted. Neuromuscular Re-Education: 1: CMILL traffic jam x 4 minutes 2: -Increased instability with L SLS vs R SLS 3: 3 systems of baalnce and sensory organization training 4: Discussion on Vestibular system and role of vestibular system for balance 5: Completion of mCTSIB, no FOAM due to imbalance 6: Additions to HEP 7: *WBOS EC in a corner with chair in front 2 x30 seconds Skilled Intervention: Skilled judgment used to assess appropriate program for balance and coordination activity. Patient education as noted. Billing Therapeutic Exercise Treatment Minutes: 10 Neuromuscular Re-Education Treatment Minutes: 30 Skilled Treatment Time Minutes (timed and untimed codes): 40 Total Session Time (minutes): 47 Session Start Time : 1203 Session Stop Time : 1250 Karl Lion PT documented in this encounterWilson Health10-24-2024 Telephone encounter Note * Telephone Encounter - Elayne Hdz RN - 02/02/2024 10:43 AM EDT Phoned patient and spoke with patient to confirm appointment for Hola Douglas for spine procedureon 02/07/2024. Patient notified that Sumner will call patient the night before with the time to arrive for injection. Patient verbalized understanding of the following: -Provided education on spine procedure and answered questions related to spine injection procedure. -Desk Editor is needed to drive patient home. Patient's -Sravan will wait -NPO 6 hours prior to appointment, ok to take morning medications with sip of water. -Not to take any pain medications the day of injection to see how well injection works. -Do not take any NSAIDs/anti-inflammatories (mobic, ibuprofen, advil, aleve, etc) the day of procedure for all lumbar, hip, and sacroiliac joint procedures. Hold NSAIDs for 1 day prior to procedure for cervical cases. Allergies reviewed: Yes Allergy to IV contrast dye or steroids: No and not allergic to shellfish either Taking any antiplatelet/anticoagulant (blood thinners): No Taking aspirin 81mg: No Any open wounds/sores?: No Taking Antibiotics?: No Diabetic: Yes , notified that blood sugar will be taken at office and ok to take morning diabetes medication. Patient given number [phone], spine injections schedulers, if there is any need to reschedule/change appointment during normal business hours. Active MyChart users were informed to read MyChartprocedure instructions prior to appointment. AMBULATORY PATIENT EDUCATION TOPIC: SPINE INJECTION PROCEDURE, PRE-INJECTION AND POST- INJECTION INSTRUCTIONS READINESS TO LEARN COGNITIVE ABILITY: ALERT AND ORIENTED MOTIVATION TO LEARN: Eager FAMILY SUPPORT: Unable to assess - Family not present INSTRUCTION PROVIDED TO: Patient PATIENT LEARNS BEST BY: INDIVIDUAL INSTRUCTION FACTORS AFFECTING LEARNING: None PHYSICAL LIMITATIONS AFFECTING LEARNING: None LEARNING RESPONSE METHOD OF INSTRUCTION: TEACH BACK AND INDIVIDUAL INSTRUCTION PATIENT / FAMILY RESPONSE: VERBALIZED UNDERSTANDING OF PRE AND POST INJECTION INSTRUCTIONS [facility]10-24-2024 Miscellaneous Notes* Telephone Encounter - Elayne Hdz RN - 02/02/2024 10:43 AM EDT Phoned patient and spoke with patient to confirm appointment for Hola Douglas for spine procedureon 02/07/2024. Patient notified that Sumner will call patient the night before with the time to arrive for injection. Patient verbalized understanding of the following: -Provided education on spine procedure and answered questions related to spine injection procedure. -Desk Editor is needed to drive patient home. Patient's -Sravan will wait -NPO 6 hours prior to appointment, ok to take morning medications with sip of water. -Not to take any pain medications the day of injection to see how well injection works. -Do not take any NSAIDs/anti-inflammatories (mobic, ibuprofen, advil, aleve, etc) the day of procedure for all lumbar, hip, and sacroiliac joint procedures. Hold NSAIDs for 1 day prior to procedure for cervical cases. Allergies reviewed: Yes Allergy to IV contrast dye or steroids: No and not allergic to shellfish either Taking any antiplatelet/anticoagulant (blood thinners): No Taking aspirin 81mg: No Any open wounds/sores?: No Taking Antibiotics?: No Diabetic: Yes , notified that blood sugar will be taken at office and ok to take morning diabetes medication. Patient given number [phone], spine injections schedulers, if there is any need to reschedule/change appointment during normal business hours. Active MyChart users were informed to read MyChartprocedure instructions prior to appointment. AMBULATORY PATIENT EDUCATION TOPIC: SPINE INJECTION PROCEDURE, PRE-INJECTION AND POST- INJECTION INSTRUCTIONS READINESS TO LEARN COGNITIVE ABILITY: ALERT AND ORIENTED MOTIVATION TO LEARN: Eager FAMILY SUPPORT: Unable to assess - Family not present INSTRUCTION PROVIDED TO: Patient PATIENT LEARNS BEST BY: INDIVIDUAL INSTRUCTION FACTORS AFFECTING LEARNING: None PHYSICAL LIMITATIONS AFFECTING LEARNING: None LEARNING RESPONSE METHOD OF INSTRUCTION: TEACH BACK AND INDIVIDUAL INSTRUCTION PATIENT / FAMILY RESPONSE: VERBALIZED UNDERSTANDING OF PRE AND POST INJECTION INSTRUCTIONS documented in this encounterWilson Health10-21-2024 Telephone encounter Note * Telephone Encounter - Rosa Roberto RN - 01/30/2024 11:01 AM EDT Message sent to patient to obtain orthostatic vitals over 3 days. AGUSTÍN Ludwig RNN [facility] Work Phone: [phone] Miscellaneous Notes* Telephone Encounter - Rosa Roberto RN - 01/30/2024 11:01 AM EDT Message sent to patient to obtain orthostatic vitals over 3 days. AGUSTÍN Ludwig RNN * Telephone Encounter - Naina Ch - 01/30/2024 10:21 AM EDT Call received for Sheryl Schwartz APRN.ENVIRONMENTAL ENGINEER SCIENTIST regarding Hola Douglas 1945. Caller: Self Patient Identified by Name and : Yes Was permission obtained from patient ? NA Reason for Call: Other: Patient called stating her BP is now high and wants to discuss dose of Fludrocortisone. Last Office Visit: 12/15/23 Last Distance Health visit: Visit date not found Next scheduled appointment: 06/14/2024 Best number to reach caller: [phone] Best time to reach caller: any Is it OK to leave a detailed voice message? Yes Naina Ch documented in this encounterWilson Health10-21-2024 Telephone encounter Note * Telephone Encounter - Naina Ch - 01/30/2024 10:21 AM EDT Call received for Sheryl Schwartz APRN.ENVIRONMENTAL ENGINEER SCIENTIST regarding Hola Douglas 1945. Caller: Self Patient Identified by Name and : Yes Was permission obtained from patient ? NA Reason for Call: Other: Patient called stating her BP is now high and wants to discuss dose of Fludrocortisone. Last Office Visit: 12/15/23 Last Distance Health visit: Visit date not found Next scheduled appointment: 06/14/2024 Best number to reach caller: [phone] Best time to reach caller: any Is it OK to leave a detailed voice message? Yes Naina Ch [facility]10-17-2024 Telephone encounter Note* Telephone Encounter - Karl Lion, PT - 01/26/2024 5:44 PM EDT PT called patient to ensure she was feeling better after having some dizziness and likely low bloodsugar in PT session. Patient reports feeling much better and is now home and will take blood sugar levels. PT educated patient to seek medical attention if symptoms return or if glucose levels are out of appropriate ranges. Further progressions recommended. Karl Lion PT, DPT Board Certified Neurologic Clinical Specialist [facility] Work Phone: [phone] Miscellaneous Notes* Telephone Encounter - Karl Lion PT - 01/26/2024 5:44 PM EDT PT called patient to ensure she was feeling better after having some dizziness and likely low bloodsugar in PT session. Patient reports feeling much better and is now home and will take blood sugar levels. PT educated patient to seek medical attention if symptoms return or if glucose levels are out of appropriate ranges. Further progressions recommended. Karl Lion PT, DPT Board Certified Neurologic Clinical Specialist documented in this encounterWilson Health10-17-2024 NoteHNO ID: [id number] Author: KARL LION PT Service: ? Author Type: Physical Therapist Type: Progress Notes Filed: 01/26/2024 15:59 Note Text: Episode Visit Count: 2 Therapist That Will Accept/Oversee The Plan Of Care: Karl Lion PT, DPT Start of Care Date: 01/17/24 Onset Date: 01/16/22 (the last 2 years, getting worse recently) Plan of Care Certification Date: 01/17/24 Next Certification Due Date: 03/17/24 REHABILITATION AND SPORTS THERAPY PHYSICAL THERAPY TREATMENT NOTE ASSESSMENT: Hola Douglas tolerated the session with increased symptoms and no issues. She demonstrated fair tolerance to exercise. Patient with balance score of 35/56 on BBS. Patient with INCREASED risk of falls with multiple instances of posterior loss of balance. At end of the session, patient reported feeling woozy and with an internal sense of motion. PT monitored patient's vitals and no orthostatic noted with vitals WNL. Patient reports she also has diabetes and this is what it feels like when blood sugar is low. PT offered patient Apple Juice and gram crackers, which patient accepted. Patient with decreased symptoms at end of session and felt back to normal. Patient education to go to Urgent Care if s/s return. The patient will continue to benefit from ongoing skilled physical therapy to progress toward set goals. PLAN FOR NEXT VISIT: Progress HEP, MONITOR VITALS SUBJECTIVE: Patient reports back and right leg have been bothering her. She reports she is getting an injection on the , but hoping to see if she can be seen earlier. Patient reports balance has been okay . No notable falls or imbalance Pain: Pain Pain Level: 4 Pain Location: Low Back/Lumbar Spine - Right, Hip - Right, Thigh - Right Description: Aching Frequency: Continuous Post Treatment Pain Post Treatment Pain Level: No Change OBJECTIVE MEASURES WITH LEVEL OF FUNCTION: Posture / Alignment Posture: Rounded shoulders Mobility Sit To Stand: Independent Stand To Sit: Independent Gait Gait: Independent Gait Distance (feet): 20 Gait Device: None Gait Deviations: General Deviations General Deviations/Observations: Mela decreased, Wide base of support (Slow transitions) Gait Observation: Slow transitions and cautious turning Ramirez Balance Scale Sit to stand : 3 - Able to stand independently using hands Standing unsupported : 4 - Able to stand safety 2 min Sitting : 4 - Able to sit safety and securely for 2 min Stand to sit: 4 - Sits safey minimal use of hands Transfers: 3 - Able to transfer safety definite need of hands Standing unsupported with eyes closed : 1 - Unable to keep eyese closed 3 sec but stays steady Standing unsupported with feet together : 3 - Able to place feet together independently and stand for 1 min with supervision Reaching forward : 3 - Can reach forward > 5 inches Picking up object from floor : 0 - Unable to try/needs assist to keep from losing balance or falling (Patient refused to complete due to recurrant dizziness with bending over) Looking over shoulder: Looks behind from both sides and weight shifts well Turn 360 degrees : 0 - Needs assistance while turning (Able to turn okay, at end of turn, fall backwards requiring PT assist to correct) Alternate foot on step: 2 - Able to complete 4 steps without aid with supervision Tandem standing : 3 - Able to place foot ahead of other independently and hold 30 sec Standing on leg : 1 - Tries to lift leg unable to hold 3 sec but remains standing independently Ramirez Balance Test Total (calculated): 35 Vitals BP: 117/78 Pulse: 75 SpO2: 98 % Intra BP 1: 129/79 Intra BP Position 1: Sitting Post Assessment: SpO2 Post Post Heart Rate: 69 Post BP: 122/85 Post BP Position: Sitting Post SpO2: 96 TREATMENT: Therapeutic Exercise: 1: Vitals assessment and education of vitals and management for overall health: pre and post PT 2: Rest break due to low BP and fatigeu Skilled Intervention: Patient was educated in proper exercise technique and purpose for exercises. Vitals assessed and interpreted for appropriateness for exercise.' Therapeutic Activity: 1: Patient monitoring- Patient feeling dizzy and internally swaying at end of session. PT monitoring patient's vitals and WNL. Patietn reports she felt as though blood sugar was low. PT offered juice and crackers which rolly accepted. Patient improvemetns in symptoms at the end of the session. 2: Active patient monitoring to ensure patient safety 3: Discussion on recommendation to go to urgent care with any return of s/s 4: Discussion to monitor glucose levels when she returns home Skilled Intervention: Activity progression based on professional judgment. Neuromuscular Re-Education: 1: Education on neural priming and benefits for therapy 2: NuStep for nerual priming x 8 mintues 3: Completion of BBS 4: Education on falls risk 5: Balanc (more content not included)...[facility]10-17-2024 History of Present illness Narrative* Karl Lion, PT - 01/26/2024 2:29 PM EDT Episode Visit Count: 2 Therapist That Will Accept/Oversee The Plan Of Care: Karl Lion PT, DPT Start of Care Date: 01/17/24 Onset Date: 01/16/22 (the last 2 years, getting worse recently) Plan of Care Certification Date: 01/17/24 Next Certification Due Date: 03/17/24 REHABILITATION AND SPORTS THERAPY PHYSICAL THERAPY TREATMENT NOTE ASSESSMENT: Hola Duoglas tolerated the session with increased symptoms and no issues. She demonstrated fair tolerance to exercise. Patient with balance score of 35/56 on BBS. Patient with INCREASEDrisk of falls with multiple instances of posterior loss of balance. At end of the session, patient reported feeling woozy and with an internal sense of motion. PT monitored patient's vitals and no orthostatic noted with vitals WNL. Patient reports she also has diabetes and this is what it feels like when blood sugar is low. PT offered patient Apple Juice and gram crackers, which patient accepted. Patient with decreased symptoms at end of session and felt back to normal. Patient education to go to Urgent Care if s/s return. The patient will continue to benefit from ongoing skilled physical therapy to progress toward set goals. PLAN FOR NEXT VISIT: Progress HEP, MONITOR VITALS SUBJECTIVE: Patient reports back and right leg have been bothering her. She reports she is getting an injection on the , but hoping to see if she can be seen earlier. Patient reports balance has been okay . No notable falls or imbalance Pain: Pain Pain Level: 4 Pain Location: Low Back/Lumbar Spine - Right, Hip - Right, Thigh - Right Description: Aching Frequency: Continuous Post Treatment Pain Post Treatment Pain Level: No Change OBJECTIVE MEASURES WITH LEVEL OF FUNCTION: Posture / Alignment Posture: Rounded shoulders Mobility Sit To Stand: Independent Stand To Sit: Independent Gait Gait: Independent Gait Distance (feet): 20 Gait Device: None Gait Deviations: General Deviations General Deviations/Observations: Mela decreased, Wide base of support (Slow transitions) Gait Observation: Slow transitions and cautious turning Ramirez Balance Scale Sit to stand : 3 - Able to stand independently using hands Standing unsupported : 4 - Able to stand safety 2 min Sitting : 4 - Able to sit safety and securely for 2 min Stand to sit: 4 - Sits safey minimal use of hands Transfers: 3 - Able to transfer safety definite need of hands Standing unsupported with eyes closed : 1 - Unable to keep eyese closed 3 sec but stays steady Standing unsupported with feet together : 3 - Able to place feet together independently and stand for 1 min with supervision Reaching forward : 3 - Can reach forward > 5 inches Picking up object from floor : 0 - Unable to try/needs assist to keep from losing balance or falling (Patient refused to complete due to recurrant dizziness with bending over) Looking over shoulder: Looks behind from both sides and weight shifts well Turn 360 degrees : 0 - Needs assistance while turning (Able to turn okay, at end of turn, fall backwards requiring PT assist to correct) Alternate foot on step: 2 - Able to complete 4 steps without aid with supervision Tandem standing : 3 - Able to place foot ahead of other independently and hold 30 sec Standing on leg : 1 - Tries to lift leg unable to hold 3 sec but remains standing independently Ramirez Balance Test Total (calculated): 35 Vitals BP: 117/78 Pulse: 75 SpO2: 98 % Intra BP 1: 129/79 Intra BP Position 1: Sitting Post Assessment: SpO2 Post Post Heart Rate: 69 Post BP: 122/85 Post BP Position: Sitting Post SpO2: 96 TREATMENT: Therapeutic Exercise: 1: Vitals assessment and education of vitals and management for overall health: pre and post PT 2: Rest break due to low BP and fatigeu Skilled Intervention: Patient was educated in proper exercise technique and purpose for exercises. Vitals assessed and interpreted for appropriateness for exercise.' Therapeutic Activity: 1: Patient monitoring- Patient feeling dizzy and internally swaying at end of session. PT monitoring patient's vitals and WNL. Rolly reports she felt as though blood sugar was low. PT offered juiceand crackers which rolly accepted. Patient improvemetns in symptoms at the end of the session. 2: Active patient monitoring to ensure patient safety 3: Discussion on recommendation to go to urgent care with any return of s/s 4: Discussion to monitor glucose levels when she returns home Skilled Intervention: Activity progression based on professional judgment. Neuromuscular Re-Education: 1: Education on neural priming and benefits for therapy 2: NuStep for nerual priming x 8 mintues 3: Completion of BBS 4: Education on falls risk 5: Balance work in Solo Step 6: -AMB forwards and backwards x 10 feet, notable issues with posterior balance 7: -4 sqaure stepping with step over x 5 each direction 8: -Addition of cog dual tasking with above task Skilled Intervention: Skilled judgment used to assess appropriate program for balance and coordination activity. Patient education as noted. Billing Therapeutic Exercise Treatment Minutes: 10 Therapeutic Activity Treatment Minutes: 20 Neuromuscular Re-Education Treatment Minutes: 46 Skilled Treatment Time Minutes (timed and untimed codes): 76 Total Session Time (minutes): 76 Session Start Time : 1436 Session Stop Time : 155 Karl Lion PT documented in this encounterWilson Health10-10-2024 Instructions* Patient Instructions* Lorraine Oneill MD - 01/19/2024 4:00 PM EDT After your spinal injection start Nateglinide (Starlix) one pill before each meal for 3-4 days. Monitor glucose before meals, at bedtime and as needed for hypoglycemia (low blood sugars), including before driving (for the days after steroid injections). Management of hypoglycemia: Give one of the following 1) 3-5 tabs of glucose tablet 2) 1 tube of glucose gel (especially if not able to swallow, such as having nausea) 3) 6 oz of apple juice After treating hypoglycemia, repeat blood glucose in 5-15 minutes and make sure that blood glucose is higher than 90 mg/dl. Repeat treatment as needed. Always keep with you glucose tablets and/or glucose gel with you. Keep some in your car documented in this encounterWilson Health10-10-2024 History of Present illness Narrative* Lorraine Oneill MD - 01/19/2024 3:26 PM EDT [facility] Endocrinology Department Today's Visit Information Reason for Visit: Diabetes Visit Type: Follow Up - Consultation Chief Complaint: Other CC Other: Routine follow up. Patient is having sciatica pain, RLE. She is going to have steroid injection on Feb 07, 2024. Average 14 days blood glucose is 156 mg/dl (0.4 reading per day) Range of glucose levels is between 144 to 168 mg/dl 0 readings were > 180 mg/dl. 0 readings were < 70 mg/dl. Diabetes History Patient age (years) when first diagnosed with Diabetes: 61 Diabetes Type: DM Type 2 Diabetes Related Complications: Microvascular Microvascular Complications: Neuropathy, Nephropathy Neuropathy Details: Peripheral Nephropathy Details: CKD - Stage 3 Related Comorbidities: Hyperlipidemia, Other - Specify DM meds previously tried and discontinued: Metformin Specify Reason(s) for discontinuation: diarrrhea Insulin Treatment was: Never used Nutrition/Diet Summary Patient Current Diet: No specific diet regimen, Other - Specify Specify Diet: She did not consult with dietitian. Management has not been adequate lately. Number of Meals per day: Three Number of Snacks per day/week: Per Day - Specify Number of snacks per day - Specify: 2 Exercise Summary Patient exercise routine: Not Exercising/exercise activity limited Exercise activity limited by - Specify: Sciatica pain. Blood Glucose (BG) Monitoring Monitoring Frequency: Per week - Specify Weekly Monitoring - Specify: 3-4 Blood Glucose Summary/Pattern CGM Summary Patient Uses Personal CGM: No Current issues with Glycemic Control Primary problem(s) patient has with glycemic control include(s): Fluctuations of glucose levels, Other - Specify, No Hypoglycemia Primary problem(s) - Specify: Inadequate control per limited monitoring. A1c is significantly better, 6.8% Dilated Retinal Exam Dilated Retinal Exam: Current - completed within last 12 months Dilated Retinal Exam month: May Dilated Retinal Exam year: 2023 Dilated Retinal Exam Findings: Outside provider. She reports good exam . She had cataract surgery in June or July,. Pertinent ROS Patient reports Neuropathic pain: Yes Neuropathic pain details: Numbness, Tingling (Comment: in both feet, along with sciatica of RLE) Patient reports Polyuria: No Patient reports Nocturia: Yes Nocturia details (per night): 2 Patient reports Polydipsia: No (Comment: She is drinking more water intentially) Weight loss/gain: Other - Specify Weight loss/gain details - Specify: Fluctuations of body weight, within 10 lb limit. Current Medications 01/19/2024 DIABETES THERAPIES Medication Dosage Pharm Subclass semaglutide (OZEMPIC) 1 mg/dose (4 mg/3 mL) pen Inject 1 mg subcutaneously one time a week. Antihyperglycemic - Glucagon-Like Peptide-1 (GLP-1) Receptor Agonists CARDIOVASCULAR Medication Dosage Pharm Subclass pravastatin (PRAVACHOL) 10 mg tablet Take 10 mg by mouth once daily. Antihyperlipidemic - HMG CoA Reductase Inhibitors (statins) rosuvastatin (CRESTOR) 5 mg tablet TAKE 1 TABLET BY MOUTH AT BEDTIME EVERY NIGHT Antihyperlipidemic- HMG CoA Reductase Inhibitors (statins) OTHER Medication Dosage Pharm Subclass blood sugar diagnostic (TRUE METRIX GLUCOSE TEST STRIP) test strip Use with blood glucose test oncedaily Medical Supplies and DME - Blood Glucose Tests Blood-Glucose Meter (TRUE METRIX GLUCOSE METER) 1 Each once daily. Medical Supplies and DME - Glucose Monitoring Test Supplies calcium carbonate 600 mg-cholecalciferol 200 units (CALCIUM 600 + D,3,) 600 mg(1,500mg) -200 unit tab Take 1 tablet by mouth once daily. Minerals and Electrolytes - Calcium Replacement/Vitamin D Combinations clonazePAM (KLONOPIN) 0.5 mg tablet Take 1 tablet by mouth as needed. For restless leg syndrome Antianxiety Agent - Benzodiazepines ergocalciferol 50,000 unit capsule (VITAMIN D2, DRISDOL) TAKE 1 CAPSULE ONE TIME WEEKLY Vitamins - D Derivatives esomeprazole (NEXIUM) 20 mg capsule Take 1 capsule by mouth DAILY (6 AM). Gastric Acid Secretion [employer] - Proton Pump Inhibitors (PPIs) fludrocortisone (FLORINEF) 0.1 mg tablet Take 2 tablets by mouth once daily. Mineralocorticoids fluticasone (FLONASE) 50 mcg/actuation nasal spray Use 2 Sprays in each nostril twice daily. Nasal Corticosteroids gabapentin (NEURONTIN) 300 mg capsule Take 1 capsule by mouth two times a day AND 3 capsules daily at bedtime. Do all this for 90 days. Anticonvulsant - VALENTIN Analogs lancets (TRUEPLUS LANCETS) 33 gauge Use with blood glucose test once daily Medical Supplies and DME- Glucose Monitoring Test Supplies loratadine (CLARITIN) 10 mg tablet Take 10 mg by mouth once daily. Antihistamines - 2nd Generation MULTIVITAMIN (MULTI-DAY ORAL) Take by mouth once daily. Multivitamins pen needle, diabetic (COMFORT EZ PEN NEEDLES) 33 gauge x 5/16 ndle To inject weekly Medical Supplies and DME - Insulin [place]-Syringes and Admin Supplies LABS Creatinine (mg/dL) Date Value 10/06/2023 1.14 2021 1.08 Hemoglobin A1C (%) Date Value 2021 6.7 Hemoglobin A1C (POCT) (%) Date Value 01/19/2024 6.8 Albumin, Urine Random (mg/L) Date Value 10/06/2023 <12.0 2021 <12.0 Cholesterol, Total (mg/dL) Date Value 05/20/2023 140 2021 178 HDL Cholesterol (mg/dL) Date Value 05/20/2023 41 2021 53 LDL Cholesterol (mg/dL) Date Value 05/20/2023 71 2021 100 Triglyceride (mg/dL) Date Value 05/20/2023 142 2021 124 PAST MEDICAL HISTORY Diagnosis Date Carpal tunnel syndrome Diverticulosis of colon (without mention of hemorrhage) Hypotension Localized osteoarthrosis not specified whether primary or secondary, hand Mastodynia Other chronic sinusitis Type II or unspecified type diabetes mellitus without mention of complication, uncontrolled Vertigo Current workup PAST SURGICAL HISTORY Procedure Laterality Date ARTHROSCOPY KNEE DIAGNOSTIC W/WO SYNOVIAL BX SPX Left Arthroscopy, knee BIOPSY BREAST OPEN INCISIONAL 1998 needle localization right breast BIOPSY BREAST OPEN INCISIONAL 1996 right breast CARPAL TUNNEL right LAPS ABD PRTM&OMENTUM DX W/WO SPEC BR/WA SPX Laparoscopy PAST SURGICAL HISTORY OF 06/2023 Bilateral cataract surgery TOTAL ABDOMINAL HYSTERECT W/WO RMVL TUBE OVARY 1992 Social History Tobacco Use Smoking status: Never Smokeless tobacco: Never Vaping Use Vaping status: Never Used Substance Use Topics Alcohol use: Not Currently Drug use: No Comment: denies tx for drug/alcohol abuse in the past. FAMILY HISTORY Problem Relation Age of Onset Dementia Mother Coronary Artery Disease Father COPD Father No Known Problems Brother Dementia Brother No Known Problems Brother Ovarian cancer Maternal Grandmother Breast Cancer Other no known family h/o breast cancer ALLERGIES Allergen Reactions Asa [Salicylates] causes platelet disfunction Aspirin Unknown, Other: See Comments Levaquin [Levofloxa* Rash, Other: See Comments Per pt feels like she on fire Avelox [Moxifloxaci* Intolerance C/O burning feeling on skin REVIEW OF SYSTEMS Review of Systems Constitutional: Negative for night sweats and recent unintentional weight change. Eyes: Negative for visual disturbance. Respiratory: Negative for difficulty breathing. Cardiovascular: Negative for leg swelling. Gastrointestinal: Negative for nausea and diarrhea. Musculoskeletal: Positive for myalgias. Neurological: Positive for dizziness. Negative for headaches. Answers submitted by the patient for this visit: Core Review of Systems (Submitted on 01/13/2024) Fever : No Nasal Congestion: Yes Hearing Loss: No A cough: No Irregular heartbeat: No Black tarry stools: No Difficulty Urinating?: No Awaken at Night More Than Once to Urinate?: No Joint pain or stiffness: Yes Leg or Foot Discomfort at Night?: Yes A rash: No Memory Loss: No Seizures: No PHYSICAL EXAM: Vital Signs BP 145/84 Pulse 73 Resp 16 Wt 83.5 kg (184 lb 1.4 oz) BMI 27.99 kg/m Physical Exam Constitutional: Appearance: She is not ill-appearing or diaphoretic. Eyes: Conjunctiva/sclera: Conjunctivae normal. Neck: Thyroid: No thyromegaly or thyroid tenderness. Vascular: No carotid bruit. Cardiovascular: Rate and Rhythm: Normal rate. Pulses: Dorsalis pedis pulses are 3+ on the right side and 3+ on the left side. Posterior tibial pulses are 3+ on the right side and 3+ on the left side. Heart sounds: No murmur heard. No gallop. Musculoskeletal: Right lower leg: No edema. Left lower leg: No edema. Right foot: Deformity (Hallux valgus) and bunion present. Left foot: Deformity (Hallux valgus) and bunion present. Feet: Right foot: Skin integrity: Callus and dry skin present. No ulcer. Toenail Condition: Right toenails are normal. Left foot: Skin integrity: Callus and dry skin present. No ulcer. Toenail Condition: Left toenails are normal. Comments: Vibration sensation is absent in bilateral great toes. Lymphadenopathy: Cervical: No cervical adenopathy. Neurological: Mental Status: She is alert. DATA Diagnostic tests reviewed for today's visit: Most recent labs Impression and Plan Diabetes type (Diagnosis): DM Type 2 Adequacy of Glycemic Control: Without hypoglycemia, Adequate (Comment: Based on A1c. Otherswise, home glucose levels are higher with inadequate monitoring) Patient advised to contact the office if blood sugar readings are consistently high or if they are having frequent hypoglycemia: Yes Recommended Diet: Mediterranean, Other - Specify Recommended Diet - Specify: Patient is following with dietitian. Recommended Glucose Monitoring: Once a day, Other-Specify Glucose Monitoring - Specify: Frequent monitoring after her spinal steroid injection is recommended. Glucose Monitoring before driving: Not applicable Diabetic Therapy Medication Changes: One (1) change made today - Specify Single DM Medication Change Today: After having the spinal steroid injection, start nateglinide 60 mg before each meal for 3-4days. Additional DM Medication Information: Please see patient instruction section for further details. Hypoglycemia and its management were discussed. A sample of Dexcom G7 was provided to use after her steroid injection. Lipid Status: Mixed hyperlipidemia, On Statin LDL Goal: < 100 mg/dL Adequacy of Lipid Control: Adequate Lipid Medication Changes: No changes made today Additional Lipid Medication Information: Treatment was changed to pravastatin one month ago. Rosuvastatin caused muscle aches. Repeat labs in 3 months. Blood Pressure Status: Other - Specify Blood Pressure Status - Specify: Hypotension Additional BP Medication Information: BP is mildly elevated. Patient is on Keddie-f by another provider. She is going to reduce the dosage to 0.15 mg daily. Weight Status: Overweight Complications: Microvascular Microvascular Complications: Neuropathy, Nephropathy Neuropathy Details: Peripheral, Radicular (Comment: Radicular neuropathy seems to be contributing) Nephropathy Details: CKD - Stage 3 Microvascular Complications Status: Stable, Other - Specify Microvascular Status (Other) - Specify: stable creatinine, last done in September,. Foot care was discussed today: Yes Related Comorbidities: Hyperlipidemia Other Conditions Addressed Today: See lab orders. Patient expressed understanding and agreed with plan. Patient to continue to follow up with her PCP and with other consultants regarding her other medical problems. Next visit in 3 months, with Endocrinology Nurse Practitioner and in 6 months with me . I spent a total of 40 minutes on the date of the service which included preparing to see the patient, [id number] patient care, completing clinical documentation, obtaining and/or reviewing separately obtained history, performing a medically appropriate examination, counseling and educating the pat ient/family/caregiver, and ordering medications, tests, or procedures. SIGNATURE Lorraine Oneill MD January 19, 2024 documented in this encounterWilson Health10-08-2024 History of Present illness Narrative* Karl Lion PT - 01/17/2024 12:15 PM EDT Program_ID:[id number] Access Code: [email or web address] URL: [email or web address]/ Date: 01-17-2024 Prepared By: Karl Lion Program Notes Exercises - Seated Heel Raise - x daily - x weekly - 3 sets - 10 reps - Seated Toe Raise - x daily - x weekly - 3 sets - 10 reps - Seated Long Arc Quad - x daily - x weekly - 3 sets - 10 reps * Karl Lion PT - 01/17/2024 11:27 AM EDT Images from the original note were not included. Episode Visit Count: 1 Therapist That Will Accept/Oversee The Plan Of Care: Karl Lion PT, DPT Start of Care Date: 01/17/24 Onset Date: 01/16/22 (the last 2 years, getting worse recently) Plan of Care Certification Date: 01/17/24 Next Certification Due Date: 03/17/24 Patient Identified by Name and Date of : Yes REHABILITATION AND SPORTS THERAPY PHYSICAL THERAPY EVALUATION PLAN OF CARE: Assessment: Hola Douglas presents with chief complaint of imbalance and concerns for falling thatinterferes with physical activities, lifting, bending, sleeping . The patient presents with impairments in balance, gait, independence in exercise, and overall function. PROMIS (Patient-Reported Outcomes Measurement Information System) scores were reviewed and identified as a rehabilitation concern. Prognosis for therapy is Good due to: current objective clinical presentation, Prognosis may be limited due to clinical presentation, multiple co- morbidities, chronic nature of impairments . Patient presents with impairments in balance and mobility. Patient with INCREASED risk of falls according to outcome measures this session including TUG and TUG Cog. Patient has been experiencing increased issues with BP management at home and orthostatic hypotension and possible POTS, currently being worked up for neurogenic cause of hypotension. At this visit, BP in good ranges. Educated on importanceof BP management and MEDICAL FOLLOW up with low blood pressures at home. Further progressions in balance and generalized mobility recommended as patient can tolerate. IF BP becomes issue in completing further therapy, consider cardiac. The patient will benefit from skilled therapy services to meet the goals established for this plan of care as noted below. Goals for Episode of Care: established 01/17/24 Patient will demonstrate current home exercise program independently. Status: Improve five time sit to stand by 2.3 seconds to meet MCID and decrease risk of falls and (evaluation: 18.8 seconds). Status: Improve score on Timed Up and Go to <12 sec to decrease risk of falls . Status: Improve score on Timed Up and Go COG (TUG COG) to <13 seconds. Status: Improve 10 meter walk speed to >1.2 m/s to normalize gait speed. Status: Patient Goals: feel better, improve balance, improve dizziness Time Frame for Goals and Treatment : 03/17/24 Planned Interventions, Frequency, and Duration: Current Frequency: 1x/week Duration: 8 weeks Total Number of Visits Planned: 8 Planned Treatment Interventions: Therapeutic exercise (93418), Neuromuscular re- education (05651), Manual therapy (81220), Therapeutic activities (98418), Self- [place] [facility] management (58614), Gait Training (25105), Body Mechanics Training, Functional training, General Conditioning PLAN FOR NEXT VISIT: BBS, Progress HEP, MONITOR VITALS Patient demonstrates good understanding of plan of care and treatment. The above goals and plan of care were discussed and agreed upon by patient/family. SUBJECTIVE: Balance. Patient reports that is feels like her balance is not what it used to be. She feels issueswhen standing and moving that makes her feels like she is swaying. Patient has diabetes and is known to have diabetic neuropathy. She has recently been gaving some issues with low blood pressure, buthas gotten new medication and compression socks and feels like this has helped. 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) Recreation / Current Exercise: Sitting exercises Hobbies / Interests: Reading- personal investment adviser/mystery novels Home Environment Patient Lives With: Spouse Assistance Available: PRN ( is a george, so out of the house most of the day 6-7x/week) Home Type: Multi-Level with First Floor Set-Up Entry To Home: Stairs, With Rail Number Of Stairs Into Home: 3 Tub/Shower Type: Walk in shower Laundry: first floor - pt typically completes Equipment Owned: Cane, Walker- Wheeled Transportation: Car Intake Information: Prescription present Previous Treatment: Vestibular Physical Therapy (Done at [facility]) Falls Interview: No positive findings with falls interview Aquatic Screen: No Pain: Pain Pain Level: 3 Pain Location: Low Back/Lumbar Spine - Right, Hip - Right, Thigh - Right Description: Aching Frequency: Continuous Post Treatment Pain Post Treatment Pain Level: No Change PROMIS Scales 01/13/2024 11/26/2023 07/25/2023 Higher is Better Phys Func - Score 33 (moderate dysfunction) 36 (moderate dysfunction) 36 (moderate dysfunction) Phys Func - Percentile 4 8 8 T-scores: mean of general population = 50. 5 points is clinically meaningfully difference Percentiles provide an indication of how the patient's score ranks in relation to the general population. Higher percentile rankings indicate better function/quality of life. 50th percentile is the average of the general population and indicates half of respondents had a worse score. OBJECTIVE MEASURES WITH LEVEL OF FUNCTION: Posture / Alignment Posture: Rounded shoulders Sensory Sensory Deficits: Light Touch Light Touch: Impaired (Feels less sensation on the RIGHT side compared to the LEFT) LE Strength R LE Strength: Grossly 3+/5- no overpressure due to recent skin biopsy L Hip Flexion (L2): 4-/5 L Knee Extension (L3): 4/5 L Knee Flexion: 4-/5 L Ankle Dorsiflexion (L4): 4/5 L Ankle Plantar Flexion: 4-/5 Mobility Sit To Stand: Independent Stand To Sit: Independent Gait Gait: Independent Gait Distance (feet): 20 Gait Device: None Gait Deviations: General Deviations General Deviations/Observations: Mela decreased, Wide base of support (Slow transitions) Gait Observation: Slow transitions and cautious turning Functional Performance Test Results Assistive Device: None 10 Meter Walk Test Trial 1 (seconds): 6.7 10 Meter Walk Test Trial 2 (seconds): 6.7 10 Meter Walk Test Average (m/sec): 0.9 5 Times Sit to Stand Test : 18.8 sec Timed Up and Go (sec): 15.4 sec Timed Up and Go Cognitive (sec): 16.9 sec Vitals BP: 123/85 Pulse: 61 SpO2: 100 % Additional Vitals: Yes Pre Assessment: SpO2, BP, Heart Rate Pre Heart Rate: 63 Pre BP: 123/85 Pre BP Position: Sitting Pre SpO2: 97 Intra Assessment 1: Heart Rate Intra 1, BP Intra 1, SpO2 Intra 1 Intra Heart Rate 1: 70 Intra BP 1: 121/75 Intra BP Position 1: Standing Intra SpO2 1: 95 Post Assessment: BP Post, Heart Rate Post Post Heart Rate: 66 Post BP: 120/81 Post BP Position: Sitting Education: Education Learning Preferences: Demonstration, Explanation Barriers: None Learning/educational needs: Health promotion, Safety, Home exercise program, Plan of Care Education Provided: Yes, see treatment interventions for education provided Education Provided To: Patient Education Mode/Type: Demonstration, Explanation/Discussion Response to Education/Teach Back: States/Identifies, Return Demonstration TREATMENT: PT Treatment Interventions: Neuromuscular Re-Education, Therapeutic Exercise, Therapeutic Activity Evaluation Therapeutic Exercise: 1: Vitals assessment and education of vitals and management for overall health: pre and post PT 2: Creation and demonstration of HEP 3: *Sitting exercises prior to standing (ankle pumps, LAQ) 4: *Sitting heel raises 2 x 10 5: *Sitting toe raised 2 x10 6: Orhtostaic vitasl assessment as noted 7: Discussion on cardiac rehab and possible benefit due to orthostatic hypotension issues Skilled Intervention: Patient was educated in proper exercise technique and purpose for exercises. Reviewed and educated patient on additions/changes for home exercise program as above (*). Therapeutic Activity: 1: Discussion on hypotension and danger of hypotension. Patient self reporting numbers as low as 60s/40s at home. Patient educated on DANGER of low blood pressure and blood profusion to organs. Patient educated to seek EMERGENCY medical attention if BP drops that low at home Skilled Intervention: Activity progression based on professional judgment. Billing * Evaluation Moderate Complexity: 1 Unit Therapeutic Exercise Treatment Minutes: 23 Therapeutic Activity Treatment Minutes: 5 Skilled Treatment Time Minutes (timed and untimed codes): 61 Total Session Time (minutes): 63 Session Start Time : 1123 Session Stop Time : 1226 Karl Lion PT documented in this encounterWilson Health10-07-2024 History of Present illness Narrative* Anibal Borges APRN.ENVIRONMENTAL ENGINEER SCIENTIST - 01/16/2024 12:34 PM EDT Skin Biopsy Procedure Note Skin Biopsy Accession Number: [id number] Biopsy Date: 01/16/2024 Referring physician: Sheryl Garza APRN ENVIRONMENTAL ENGINEER SCIENTIST UNIVERSAL PROTOCOL / SAFETY CHECKLIST Procedure to be Performed: Skin Nerve Biopsy Sign In: A Moment of CARE was completed. Personnel directly involved with the procedure wore the appropriate PPE (Personal Protective Equipment). Patient/Surrogate Stated/Verified: PATIENT VERIFIED(optional for EMERGENT procedures): Patient name, Date of , Relevant allergies, and The intended procedure Time Out Communication: Intended patient and procedure match the source documents. Consent documented and matches the intended procedure. Sign Out: SIGN OUT (optional for EMERGENT procedures): All specimen containers correctly labeled. NAM Amador APRN.ENVIRONMENTAL ENGINEER SCIENTIST Sign in Pt ID verified with patient. Yes, by name and date. Is patient allergic to lidocaine, epinephrine, or bandage adhesive: No Is patient on anticoagulant medicine or blood thinners: No Does patient have a history of surgery on legs or feet: yes left knee replacement Procedure verified with the patient: Yes, right leg biopsies, 2 sites. Right leg utilized given scarring on left knee. History 78 year old female with symptoms of for low blood pressure less than a year and neuropathy 18 years is referred for skin biopsy to evaluate for possible small fiber neuropathy. Written aftercare was given and explained: Yes Patient verbally agrees to proceed with the procedure. Sign in completed: Yes Procedure Note Procedure confirmed with provider and direct support professional. Yes, right leg 2 skin biopsies. The procedure was discussed with the patient, including the risks, benefits, instruments and personnel involved in this procedure. All of the patient s questions were answered. Informed consent discussed and signed: Yes Audible time-out documented: Yes Procedure Start Time: 1313 Procedure: After the patient was placed in a lateral position the following biopsy sites were identified: right distal leg and right distal thigh. These sites were cleansed with Chloroprep and injected with 0.5cc 1% Lidocaine. Two skin biopsies were obtained using a 3mm biopsy punch and removed with the forceps and surgical blade technique. Bleeding was minimal and hemostasis was obtained by pressure. Sterile dressing was applied to each biopsy site. Audible sign out completed: All specimens labeled, no equipment issues. Procedure End Time: 1316 Patient tolerated procedure well, without complications. Patient was discharged home. Specimens were labeled and sent to [facility] Cutaneous Nerve Laboratory. Procedure was performed by: Anibal Borges APRN.JUAN ANTONIO Assistance in supply/equipment preparation performed by: Pilar Tristan LPN Sign out is complete. documented in this encounterWilson Health10-07-2024 History of Present illness Narrative* Steve Wgaoner MD - 01/16/2024 9:18 AM EDT [facility] Established Visit Last Seen: 11/29/2023 CC: review of test results HPI: Ms. Douglas is a pleasant 78 year old female seen in follow-up. Patient was last seen on 11/29/2023.. Please refer to that note for additional details. Patient notes that she is feeling same. Pain continues to be bothersome R lateral thigh to the knee. Ongoing R>L low back pain. Constant. Went back to PT, no change in symptoms. Went for 1 month. Apx 8 times. Prior attempted treatment per last note: R SI joint injection, Dr. Oleary 09/19/2023-no benefit . B SI joint injection 06/08/2023-helped. Lumbar RFAB L4/5 and L5/S1 04/20/2023 which helped and continues to help PT in past-none recent Dcitbloztxk-fpzldzyzlj-essn not feeling helps much Pain is a 10/18. Averages 3-11/18. Allergies: ALLERGIES Allergen Reactions Asa [Salicylates] causes platelet disfunction Aspirin Unknown, Other: See Comments Levaquin [Levofloxa* Rash, Other: See Comments Per pt feels like she on fire Avelox [Moxifloxaci* Intolerance C/O burning feeling on skin Current Outpatient Medications Medication Sig pravastatin (PRAVACHOL) 10 mg tablet Take 10 mg by mouth once daily. fludrocortisone (FLORINEF) 0.1 mg tablet Take 2 tablets by mouth once daily. semaglutide (OZEMPIC) 1 mg/dose (4 mg/3 mL) pen Inject 1 mg subcutaneously one time a week. gabapentin (NEURONTIN) 300 mg capsule Take 1 capsule by mouth two times a day AND 3 capsules daily at bedtime. Do all this for 90 days. blood sugar diagnostic (TRUE METRIX GLUCOSE TEST STRIP) test strip Use with blood glucose test oncedaily lancets (TRUEPLUS LANCETS) 33 gauge Use with blood glucose test once daily Blood-Glucose Meter (TRUE METRIX GLUCOSE METER) 1 Each once daily. ergocalciferol 50,000 unit capsule (VITAMIN D2, DRISDOL) TAKE 1 CAPSULE ONE TIME WEEKLY clonazePAM (KLONOPIN) 0.5 mg tablet Take 1 tablet by mouth as needed. For restless leg syndrome loratadine (CLARITIN) 10 mg tablet Take 10 mg by mouth once daily. fluticasone (FLONASE) 50 mcg/actuation nasal spray Use 2 Sprays in each nostril twice daily. pen needle, diabetic (COMFORT EZ PEN NEEDLES) 33 gauge x 5/16 ndle To inject weekly esomeprazole (NEXIUM) 20 mg capsule Take 1 capsule by mouth DAILY (6 AM). MULTIVITAMIN (MULTI-DAY ORAL) Take by mouth once daily. calcium carbonate 600 mg-cholecalciferol 200 units (CALCIUM 600 + D,3,) 600 mg(1,500mg) -200 unit tab Take 1 tablet by mouth once daily. rosuvastatin (CRESTOR) 5 mg tablet TAKE 1 TABLET BY MOUTH AT BEDTIME EVERY NIGHT No current facility-administered medications for this visit. Physical Examination: BP 120/61 Pulse 77 Resp 12 Ht 5' 8 (1.73m) Wt 183 lb 3.2 oz (83.1kg) SpO2 96[room air]% BMI 27.86 kg/(m^2). General: NAD, pleasant Lungs: Symmetric chest expansion Gait: slow Palpation: lower lumbar paraspinal tenderness Strength: Bilateral upper and LE strength is normal Reflexes: Bilateral upper and LE reflexes are 1+ Neuro: Plantar response is downgoing. Negative gamez's R hip ROM appears intact w/o pain. Radiological Review: reviewed images and findings Cervical MRI-12/04/2023-degenerative changes most significant C4/5-mild central stenosis. Normal cord signal. Anterolisthesis grade I C4/5. Lumbar MRI-12/04/2023-multielvel degenerative changes with multilevel stenosis-R L3/4 NFS Lumbar l-yin-clranoryq-lateral shift to the L L3/4 and L4/5. No abnormal motion Impression/Plan: R lumbar radiculopathy, LSS, scoliosis. Ongoing pain despite recent PT and HEP. Prior injections SIand lumbar RFAB and medications w/o relief. Given symptoms and imaging findings R L4 TFESI recommended. Patient agreeable. Cervical stenosis w/o myelopathy. Cervical flexion/extension views f/u anterolisthesis. F/U: 2-4 weeks after ANGELA. If not better consider spine surgery consult (discussed now, would like to avoid). The patient is instructed to call/seek urgent medical care with worsening pain or change of neurological status. There are no barriers to patient education identified. Management options were discussed in detail.The patient is in agreement with the plan as outlined above and verbalized understanding. Steve Wagoner MD documented in this encounterWilson Health09-26-2024 History of Present illness Narrative* Jailene Garcia RT(R) - 01/05/2024 2:45 PM EDT Radiology Service Progress Note PATIENT NAME: Hola Douglas DATE OF SERVICE: January 05, 2024 TIME: 2:51 PM PATIENT IDENTITY VERIFICATION COMPLETED USING TWO (2) IDENTIFIERS: Name and Date of confirmedby patient verbally. FALL SCREENING: Has the patient had 2 falls in the last year or 1 fall with injury or currently using an Ambulatory Assistive Device (Walker, Cane, Wheelchair, Crutches, etc.)? No PATIENT GENDER DATA: Female. status: : No status: NO. PATIENT RELEVANT IMPLANT DATA REVIEWED: Yes PATIENT PRESENTS WITH AN IMPLANTABLE OR ATTACHED PUBLIC HEALTH DIETITIAN: No RADIOLOGY DEPARTMENT: Mammography PERIPHERAL IV DATA: Not applicable SIGNED BY: RT Tina(R) January 05, 2024 2:51 PM documented in this encounterWilson Health09-26-2024 History of Present illness Narrative* Heather Ford MD - 01/05/2024 2:00 PM EDT MEDICAL BREAST PATIENT NAME: Hola Douglas January 05, 2024 REFERRAL: She is self referred for an opinion regarding left breast soreness. HISTORY of PRESENT ILLNESS: Hola Douglas is a 78 year old postmenopausal female who [facility] today for to establish breast care. The patient denies any breast masses, skin changes, or nipple discharge. She does complain of breast tenderness, primarily on the Left. Genetic Testing: No Vitamin D 25 Hydroxy (ng/mL) Date Value 11/11/2021 58.6 2021 44.1 She takes vitamin D 50,000 units and calcium with vitamin D daily. BMD: Per patient report 2021, repeat 5 years PERSONAL BREAST HISTORY: Breast biopsy: see below Breast cysts: No Breast surgery: RT excisional 1996 and RT excisional 1998 per patient report benign. Breast cancer: No CANCER SURVEILLANCE: Mammograms: 12/30/2022 DBT, benign Breast MRI: No Colonoscopy: Per patient report 2021, repeat 5 years RISK FACTORS FOR BREAST CANCER: Age at the onset of menses: 14 years of age. P: 1 Age at the of first child: 32 years of age. She did not breast feed. Age at menopause: The patient underwent surgical menopause at age 47. Post- menopausal hormone therapy: Estrogen patch for 11 years. She is S/P total hysterectomy due to hemorrhaging; Date: 1992. She is postmenopausal and does not use control. and has had a hysterectomy and does not use control. History of Mantle Radiation prior to the age of 32: No Obesity: BMI 26 Mammographic density: There are scattered fibroglandular densities Personal History of Benign Atypical Breast Biopsy: No Alcohol use: Never PAST MEDICAL HISTORY: Patient specifically denies history of: DVT, PE, migraine headaches WITH AURA, migraine headaches without aura, osteopenia, and osteoporosis. +Diabetes, Abnormal uterine bleeding and Abnormal uterine biopsies. SOCIAL HISTORY: Social History Tobacco Use Smoking status: Never Smokeless tobacco: Never Vaping Use Vaping status: Never Used Substance Use Topics Alcohol use: Not Currently Drug use: No Comment: denies tx for drug/alcohol abuse in the past. Caffeine intake: 1 cup of coffee / day Exercise: Never FAMILY HISTORY: Family history of breast cancer: Paternal aunt in 60's, Family history of ovarian cancer: Maternal grandmother in 60's, Number of sisters: 0 Number of maternal aunts: 0 Number of paternal aunts: 1 Ashkenazi Ancestry: no Other Cancer: None There is no family history of prostate, colon, uterine, pancreatic, gastric, brain, renal cell or thyroid cancer. There is no family history of melanoma, sarcoma or leukemia. Osteoporosis: Mother Stroke: None Blood Clot: None Heart attack: Father Thyroid Nodule or Goiter: None Autism: None REVIEW OF SYSTEMS: The patient specifically denies unintentional weight loss, insomnia, hot flashes, night sweats, abnormal swelling in the arms or legs, chest pain, shortness of breath, persistant cough, heartburn, urinary incontinence, unusual bony pains or severe headaches. +Vaginal dryness and Decreased Libido PHYSICAL EXAM: General: well-nourished, healthy, female, alert and oriented x 3, calm Skin: warm, dry, skin color, texture, turgor normal Head/Eyes: normocephalic, atraumatic, and anicteric Breasts and Regional Lymph Nodes: The patient was examined in the upright and supine positions. There is no concerning supraclavicular, infraclavicular or axillary lymphadenopathy. The breasts are symmetrical in appearance without visible skin or nipple changes. There are no dominant breast masses or nipple discharge bilaterally. The breasts were tender diffusely in bilateral breasts inferiorly. There was mild fibrocystic change throughout. IMAGING: Bilateral diagnostic imaging was performed today in the breast center and were negative for malignancy. There are scattered fibroglandular densities. Assessment IMPRESSION/PLAN: Hola Douglas is a 78year old female with bilateral fibrocystic change and mastodynia There is no evidence of malignancy. The patient was reassured as to the benign nature of her clinical and mammographic findings. She is at average risk for the development of breast cancer. It is notnecessary that she continue follow-up in the Breast Center however given her history or annual visits, I will see her back in one year and she can try EPO for her pain Genetics referral made: No: Reason: Discussed that she meets guidelines given MGMo with ovarian cancer. Chemoprevention discussion: N/A The patient is advised to exercise regularly, achieve/maintain ideal body weight, and to limit alcohol consumption to less than 7 drinks weekly for breast cancer risk reduction and overall health. She will return in 12 months for follow-up evaluation. She will call me in the interim should she have any questions or concerns. My final recommendations will be communicated back to the requesting physician by way of shared medical record or letter via US mail. I spent a total of 45 minutes on the date of the service which included preparing to see the patient, ralf-lz-tvdx patient care, completing clinical documentation, obtaining and/or reviewing separately obtained history, performing a medically appropriate examination, counseling and educating the pat ient/family/caregiver, ordering medications, tests, or procedures, communicating with other HCPs (not separately reported), independently interpreting results (not separately reported), communicatingresults to the patient/family/caregiver, and care coordination (not separately reported). Heather Ford MD Medical Breast Specialist January 05, 2024 CC: Hola Penaloza [id number] [address] [facility] [id number] Erich GillisDO [address] [place] [phone] documented in this encounterWilson Health09-25-2024 History of Present illness Narrative* Farzana Morrow, RD - 01/04/2024 10:00 AM EDT Images from the original note were not included. 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 Limited d/t low BP. Pt reports weekly PT for back/ leg pain, finishing this week. Symptoms: Patient's symptoms are as follows: Weight Concerns: weight gain and failure to lose weight How many hours of sleep on average? 7+ Diet History: Pt did not report full diet recall. Pt reports she continues to include breakfast, lunch and dinner. Pt reports she continues to dislike most vegetables, other than lettuce. Fluids/Drinks: water, sparkling ICE drink Who Cooks: Self and Spouse Who Shops: Self and Spouse Allergies: No Food Allergy Medications: Current Outpatient Medications Medication Sig fludrocortisone (FLORINEF) 0.1 mg tablet Take 2 tablets by mouth once daily. semaglutide (OZEMPIC) 1 mg/dose (4 mg/3 mL) pen Inject 1 mg subcutaneously one time a week. rosuvastatin (CRESTOR) 5 mg tablet TAKE 1 TABLET BY MOUTH AT BEDTIME EVERY NIGHT gabapentin (NEURONTIN) 300 mg capsule Take 1 capsule by mouth two times a day AND 3 capsules daily at bedtime. Do all this for 90 days. blood sugar diagnostic (TRUE METRIX GLUCOSE TEST STRIP) test strip Use with blood glucose test oncedaily lancets (TRUEPLUS LANCETS) 33 gauge Use with blood glucose test once daily Blood-Glucose Meter (TRUE METRIX GLUCOSE METER) 1 Each once daily. ergocalciferol 50,000 unit capsule (VITAMIN D2, DRISDOL) TAKE 1 CAPSULE ONE TIME WEEKLY clonazePAM (KLONOPIN) 0.5 mg tablet Take 1 tablet by mouth as needed. For restless leg syndrome loratadine (CLARITIN) 10 mg tablet Take 10 mg by mouth once daily. fluticasone (FLONASE) 50 mcg/actuation nasal spray Use 2 Sprays in each nostril twice daily. pen needle, diabetic (COMFORT EZ PEN NEEDLES) 33 gauge x 5/16 ndle To inject weekly esomeprazole (NEXIUM) 20 mg capsule Take 1 capsule by mouth DAILY (6 AM). MULTIVITAMIN (MULTI-DAY ORAL) Take by mouth once daily. calcium carbonate 600 mg-cholecalciferol 200 units (CALCIUM 600 + D,3,) 600 mg(1,500mg) -200 unit tab Take 1 tablet by mouth once daily. No current facility-administered medications for this visit. ANTHROPOMETRICS Height: Last 1 Encounter Ht Readings: Date: Ht: 12/15/2023 172.7 cm (5' 8 ) Current weight: Last 1 Encounter Wt Readings: Date: Wt: 12/15/2023 82.8 kg (182 lb 8.7 oz) 08/03/2023 78.9 kg (174 lb) 07/26/2023 83 kg (183 lb) 06/23/2023 81.5 kg (179 lb 10.8 oz) BMI: 27.76 kg/(m^2) READINESS TO LEARN Cognitive ability: Alert and oriented Motivation to learn: Eager Family support: High - Very involved in pt care Instruction provided to: Patient and Spouse Patient learns best by: Multiple Methods Factors affecting learning: None Physical limitations affecting learning: None Stage of Change: Action NUTRITION ASSESSMENT: Nutrition Diagnosis: Has not changed since previous diagnosis Nutrition Prescription: Calories Needed for Current Weight: Resting Metabolic Rate: 1371 Nutrition Intervention: -Monitoring: A1c meaning and target <7% Meal Plan Topics -Balanced eating/Plate method, -Including non-stachy vegetables at meals/snacks, -Carb Counting/Calorie/Portion Sizes for foods/Other Portion Control methods, and -Lean Proteins Exercise Topics -Exercise Guidelines/Exercise Benefits/Exercise prescription and -Barriers to exercise Lifestyle Behaviors -Diet Profiles (large portions, emotional eating, peer/social eating, lack of readiness for termite helper lifestyle changes, convenient eating/time management, etc.) Weight Management Information -Factors effecting rate of weight loss Support -Encouraged successes Education Materials: None Nutrition Monitoring & Evaluation: Dietitian Goals: Maintained OR Improved Blood Glucose Control by next A1C test Weight Reduction of 5-10% within 6 months Criteria: A1C and Weight Patient Centered Goals: Patient Stated Goals at last Visit (Met/Not Met/Partially Met): Reduce regular soda/ sugar-sweetened - MET (pt quit buying soda entirely) Patient Stated Goals at today's visit: 1. Increase exercise as able (discussed chair-exercises with small dumbbells) 2: I might be read tomake a plan 2. Choose equal portions protein and carbs at meals 3: I have a plan to start Patient / Provider Comments: Pt reports she recently had the flu and developed low BP. Discussed salt in diet - recommended pt keep consistent. Pt reports she stopped buying soda, so her intake of sugar-sweetened drinks has drastically decreased. Discussed BG control, current meds, etc. Per initial appt notes... Pt reports dx T2DM in 2005. Pt reports strong family hx - father and several siblings. Pt reports desire to bring A1C further down to help with neuropathy symptoms - discussed in-depth. Pt reports she does not like most vegetables and drinks mostly regular soda daily - discussed and set goals accordingly. Need for Follow up: 03/30/24 @ 10-11AM in-person Referred/Supervised by: Lorraine Oneill MD Consult Billing Type: Re-assess/15 minutes, 4 increment(s), 60 minutes Number of Increments: 4 (60 minutes) My final report will be communicated back to the requesting physician by way of shared medical record. Signed by: Farzana Morrow RD documented in this encounterWilson Health09-24-2024 Telephone encounter Note * Telephone Encounter - Vale Holguin MA - 01/03/2024 9:39 AM EDT I spoke with patient regarding her upcoming appointment on 01/05/2024. Patient states she is experiencing left breast pain that comes and goes. Family history of ovarian cancer: Maternal grandmother at unknown age, No family history of breast cancer. I reminded patient of appointment time and location and asked for her to arrive 15-20 minutes earlyfor paperwork. Vale Holgiun MA [facility]09-24-2024 Miscellaneous Notes* Telephone Encounter - Vale Holguin MA - 01/03/2024 9:39 AM EDT I spoke with patient regarding her upcoming appointment on 01/05/2024. Patient states she is experiencing left breast pain that comes and goes. Family history of ovarian cancer: Maternal grandmother at unknown age, No family history of breast cancer. I reminded patient of appointment time and location and asked for her to arrive 15-20 minutes earlyfor paperwork. Vale Holguin MA * Telephone Encounter - Vale Holguin MA - 12/27/2023 9:08 AM EDT I called patient regarding her upcoming new patient appointment on 01/05/[address] Ford. Patient previously saw Dr. Penaloza due to right breast pain. Mammogram benigno- 12/30/2022 Benign (scattered) I left a message asking for patient to return my call. Vale Holguin MA documented in this encounterWilson Health09-17-2024 Telephone encounter Note * Telephone Encounter - Vale Holguin MA - 12/27/2023 9:08 AM EDT I called patient regarding her upcoming new patient appointment on 01/05/[address] Ford. Patient previously saw Dr. Penaloza due to right breast pain. Mammogram benigno- 12/30/2022 Benign (scattered) I left a message asking for patient to return my call. Vale Holguin MA [facility]09-12-2024 Telephone encounter Note* Telephone Encounter - Rosa Roberto RN - 12/22/2023 3:23 PM EDT Message sent to patient to ask why another provider in [place] filled gabapentin for her since Sheryl has begun managing script. Gayle Roberto RN, BSN [facility]09-12-2024 Evaluation note* Author [facility] 20[facility] 11:34amNurse visit by Zenobia Jackson LPN [facility] Work Phone: 1(283) 871-696309-12-2024 Evaluation note* Author Zenobia [facility] 2023 10:34amNurse visit by Zenobia Jackson LPN [facility] Work Phone: [phone]) 821-491809-12-2024 Telephone encounter Note* Telephone Encounter - Rosa Roberto RN - 12/22/2023 9:42 AM EDT Last OV: 12/15/23 Last Refill: 09/20/23 FU OV: 06/14/24 Appropriate for refill routed to for review Gayle Roberto RN [facility]09-11-2024 Telephone encounter Note* Telephone Encounter - Naina Ch - 12/21/2023 11:23 AM EDT Physician: Sheryl Garza Call from pharmacy requesting refill. Please E-Scribe Last OV: 12/15/23 with Kayla Future OV: 06/14/24 with Kayla Requested Prescriptions Pending Prescriptions Disp Refills gabapentin (NEURONTIN) 300 mg capsule 450 capsule 0 Sig: Take 1 capsule by mouth two times a day AND 3 capsules daily at bedtime. Do all this for 90 days. Pharmacy Name: [email or web address] Phone #: [phone] Naina Ch [facility]09-11-2024 Telephone encounter Note* Telephone Encounter - Vijaya Borrego RN - 12/21/2023 10:01 AM EDT This matter is being addressed in a separate encounter ( 9/10). Closing this encounter. Maggy Borrego RN [facility]09-11-2024 Miscellaneous Notes* Telephone Encounter - Vijaya Borrego RN - 12/21/2023 10:01 AM EDT This matter is being addressed in a separate encounter ( 9/10). Closing this encounter. Maggy Borrego RN documented in this encounterWilson Health09-05-2024 Instructions* Patient Instructions* Andrea Lees MD - 12/15/2023 2:46 PM EDT -When your symptoms are severe and your blood pressure is low, you can consider drinking 2 tall glasses of water quickly (around 500 ml), which may improve symptoms through better blood pressures. -This should not be done frequently (limit using this to only once per day) and should not be done routinely but can help with severe symptoms. documented in this encounterWilson Health09-05-2024 History of Present illness Narrative* Andrea Lees MD - 12/15/2023 2:35 PM EDT I personally reviewed the above information as obtained by the nurse and confirmed the findings. 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, hand No date: Mastodynia No date: Other chronic sinusitis No date: Type II or unspecified type diabetes mellitus without mention of complication, uncontrolled No date: Vertigo Comment: Current workup PAST SURGICAL HISTORY No date: ARTHROSCOPY KNEE DIAGNOSTIC W/WO SYNOVIAL BX SPX; Left Comment: Arthroscopy, knee 1998: BIOPSY BREAST OPEN INCISIONAL Comment: needle localization right breast 1996: BIOPSY BREAST OPEN INCISIONAL Comment: right breast No date: CARPAL TUNNEL Comment: right No date: LAPS ABD PRTM&OMENTUM DX W/WO SPEC BR/WA SPX Comment: Laparoscopy 1992: TOTAL ABDOMINAL HYSTERECT W/WO RMVL TUBE OVARY History as taken on 03/26/2021: Transient loss of consciousness (TLOC), near LOC, labile blood pressures last overt LOC was sometime in 2020, LOC duration unknown near LOC not often, 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 Douglas is a 75 year old female who is seen today for orthostatic hypotension. Her medical history is significant for HLD, DM2, PSVT, POTS and orthostatic hypotension diagnosed by tilt table test 01/2018. She was seen by Dr. King in December 2020 reporting frequent and progressive episodes of hypotension of the prior few months. Episodes occurred multiple times daily with associated worsened fatigue and lightheadedness with occasional nausea. Episodes occured randomly, but worsened with positionchange (standing up, bending down). She lies down and puts her feet up with relief of symptoms. Shemay have lost consciousness with the episodes. She also reports some episodes of tachycardia with these episodes. Zio monitor and echo were unremarkable. She was advised to ensure adequate hydration and use compression stockings. In follow-up visit with Dr. King in February, she reported some improvement in symptoms but occasionally wobbly. She was noted to be wobbly/swaying and have balance issues while standing for orthostatic VS, whichwere mostly stable. She reports that she had an episode a few days ago when she bent over, had balance issues and fell and bruised her leg. She reports continued leg cramps since the fall. She endorses lightheadedness and dizziness. She reports a cough d/t sinus drainage. She denies chest pain, shortness of breath, orthopnea, edema, palpitations, PND, near syncope or syncope. She tries to maintain adequate hydration with water and Powerade Zero, though she is uncertain of the quantity. She adds salt to her food. She occasionally drinks Dr. Pepper, but not daily. She abstains from alcohol. She has started wearing OTC compression socks. She does not have an exercise regimen. Prior testing (including outside reports) has included: ZIO MONITOR 12/24/2020-01/07/2021: Patient had a min HR of 56 bpm, max HR of 167 bpm, and avg HR of 79 bpm. Predominant underlying rhythm was Sinus Rhythm. 6 Supraventricular Tachycardia runs occurred, the run with the fastest interval lasting 4 beats with a max rate of 167 bpm, the longest lasting 16 beats with an avg rate of 137 bpm. Isolated SVEs were rare (<1.0%), SVE Couplets were rare (<1.0%), and SVE Triplets were rare (<1.0%). Isolated VEs were rare (<1.0%), VE Couplets were rare (<1.0%), and no VE Triplets were present. Patient triggered events / symptom notations correlated with sinus rhythm, sinus tachycardia ECHO 12/24/2020: CONCLUSIONS: - Exam indication: Hypertensive heart disease - The left ventricle is normal in size. Left ventricular systolic function is normal. EF = 69 5% (2D 4-ch.) - The right ventricle is normal in size. Right ventricular systolic function is normal. -No significant valvular abnormalities noted on the study - Exam was compared with the prior echocardiographic exam performed on 12/29/2017. No significantchange. EPS TILT 01/17/2018: * FINAL IMPRESSIONS * - The test was stopped early at 34 out of 45 minutes of 70 degree tilt due to extensive symptoms nausea weakness and lightheadedness at patient's request. - Systolic blood pressures decreased from 131 mmHg at start to 112 mmHg at end of tilt. - Diastolic blood pressures decreased from 78 mmHg at start to 59 mmHg at end of tilt. - Blood pressure upon return to supine position was 141/70 mmHg. - Heart rates increased from 78 bpm at start to 107 bpm at end of tilt. - Heart rate upon return to supine position was 83 bpm. - ECGs showed: normal sinus rhythm with myocardial changes but no arrhythmias, and QT prolongation at baseline, repeat tilt and recovery. - Patient signs/symptoms included: HOT, LIGHTHEADED, LIGHTHEADEDNESS, NAUSEA, SEE NOTE. - Overall: The test is diagnostic for accentuated postural tachycardia. The test is diagnostic for orthostatic hypotension. Tilt Table Test 09/16/2021: * FINAL IMPRESSIONS * - The test was completed per protocol at 45 minutes of 70 degree tilt. - Systolic blood pressures remained stable from 115 mmHg at start to 122 mmHg at end of tilt. - Diastolic blood pressures oscillated from 63 mmHg at start to 54 mmHg at end of tilt. - Blood pressure upon return to supine position was 133/47 mmHg. - Heart rates increased from 70 bpm at start to 97 bpm at end of tilt. - Heart rate upon return to supine position was 66 bpm. - ECGs showed: sinus, baseline QTc 465, infrequent PVC; no diagnostic ST changes - Patient signs/symptoms included: DIZZINESS, HOT, PAIN, SEE NOTE, SOB, VISION CHANGES. - Overall: The test is negative for syncope. Autonomic Reflex Testing 09/2021: Heart rate response to deep breathing is normal via the mean heart rate range and the E:I ratio. Heart rate response to the Valsalva maneuver, as assessed by the Valsalva ratio, is reduced but the blood pressure responses to phase II and phase IV of the maneuver are intact. This is an abnormal cardiovascular autonomic test panel due to a reduced Valsalva ratio. This finding is nonspecific but is consistent with a cardiovagal abnormality. However, other tests of cardiovagal function, the heart rate response to deep breathing via the mean heart rate range method and E:Iratio are normal. There is no evidence of a significant cardiovascular adrenergic abnormality. QSART 09/2021: QSART responses at the left forearm, proximal leg, distal leg , and foot are normal. There is no evidence of a significant postganglionic sympathetic sudomotor abnormality like that seen in autonomic/small fiber neuropathy. ECHO 07/18/23: CONCLUSIONS: - Exam indication: Abnormal BP - The left ventricle is normal in size. Left ventricular systolic function is normal. EF = 68 5% (2D biplane) Normal left ventricular diastolic function. - The right ventricle is normal in size. Right ventricular systolic function is normal. - Tricuspid aortic valve, better visualized on prior echocardiogram. - Exam was compared with the prior CC echocardiographic exam performed on 12/24/2020. Mild AR seen today. NEURO QSART 09/22/21: QSART responses at the left forearm, proximal leg, distal leg , and foot are normal. There is no evidence of a significant postganglionic sympathetic sudomotor abnormality like that seen in autonomic/small fiber neuropathy. NEURO CARDIO AUTONOMIC REFLEX W/WO TILT 09/22/21: IMPRESSION: Heart rate response to deep breathing is normal via the mean heart rate range and the E:I ratio. Heart rate response to the Valsalva maneuver, as assessed by the Valsalva ratio, is reduced but the blood pressure responses to phase II and phase IV of the maneuver are intact. This is an abnormal cardiovascular autonomic test panel due to a reduced Valsalva ratio. This finding is nonspecific but is consistent with a cardiovagal abnormality. However, other tests of cardiovagal function, the heart rate response to deep breathing via the mean heart rate range method and E:Iratio are normal. There is no evidence of a significant cardiovascular adrenergic abnormality. Tilt Table Test 12/14/2023 * FINAL IMPRESSIONS * - The test was stopped early at 20 out of 45 minutes of 70 degree tilt. - Systolic blood pressures decreased from 109 mmHg at start to 72 mmHg at end of tilt. - Diastolic blood pressures decreased from 68 mmHg at start to 44 mmHg at end of tilt. - Blood pressure upon return to supine position was 105/62 mmHg. - Heart rates remained stable from 74 bpm at start to 87 bpm at end of tilt. - Heart rate upon return to supine position was 72 bpm. - ECGs showed: sinus. - Patient signs/symptoms included: DIZZINESS, NAUSEA, SHORTNESS OF BREATH, VISION CHANGES. - Overall: The test is diagnostic for progressive orthostatic hypotension. Interval History as taken today 12/15/2023 : The patient presents today for a follow up visit. No overt loss of consciousness since last visit. Ht 172.7 cm (5' 8 ) Wt 81.2 kg (179 lb) BMI 27.22 kg/m BP w/Orthostatic Vitals Date and Time Orthostatic BP Orthostatic Pulse BP Pulse BP Position BP Site BP Cuff Size 12/15/23 1217 108/56 76 -- -- Standing -- -- 12/15/23 1216 96/44 78 -- -- Sitting -- -- 12/15/23 1214 111/57 69 -- -- Supine -- -- General/Constitutional: no acute distress, well appearing Psych: alert and oriented Skin: intact Eyes: EOMI ENT: adequate neck movement Cardiovascular: regular, normal S1 and S2 without S3 or S4, no significant murmurs, no significant lower extremity edema, no carotid bruit Resp: lungs generally clear to auscultation bilaterally, lungs with equal air entry bilaterally Neuro: no obvious focal motor deficits Musculoskeletal: knee high compression stockings, normal musculature Lab Results Component Value Date/Time HB 13.1 2021 10:12 AM HB 13.0 12/24/2020 04:55 PM K 4.6 10/06/2023 09:43 AM K 4.0 07/26/2023 05:09 PM K 4.5 2021 10:12 AM K 4.8 12/24/2020 04:55 PM CREAT 1.14 (H) 10/06/2023 09:43 AM CREAT 1.05 (H) 07/26/2023 05:09 PM CREAT 1.16 (H) 05/20/2023 08:29 AM CREAT 1.08 (H) 2021 10:12 AM CREAT 1.05 (H) 12/24/2020 04:55 PM CREAT 1.00 (H) 10/24/2020 10:17 AM TSH 4.320 (H) 10/06/2023 09:43 AM TSH 6.420 (H) 07/26/2023 05:09 PM TSH 3.480 2021 10:12 AM TSH 3.020 12/24/2020 04:55 PM ECG 12/15/2023 : sinus 70 bpm, omar 178, qrs 98, qt 440/475 Assessment and Recommendations #. Transient loss of consciousness (TLOC), near LOC, labile blood pressures. On prior (initial) visit 03/26/2021: Discussed that the prior Tilt Table Test in 2018 only reported a blood pressure decrease to 112/59 mmHg. Orthostatic vitals 03/26/2021 showed generally stable blood pressures from 122/72 mmHg supine to 113/66 mmHg standing. We discussed the possible benefit of a repeat 45-minute passive Tilt Table Test with [id number] blood pressure measurement (to see how low the blood pressures actually go) and the patient agrees; the risks, benefits, and alternatives were discussed with the patient and the consent form was signed. QSART and Autonomic Reflex testing will be requested to assess for autonomic neuropathy / autonomicdysfunction. On prior visit 01/18/2022: Tilt Table Test 09/2021 was negative for syncope. She was seen by Autonomic Neurology with concern for vertigo and she was sent to physical therapy for vertigo which has reportedly helped her dizziness. She was seen by Dr King and started on florinef 0.1 mg daily which has also helped her symptoms / dizziness. She denies TLOC since last visit with tn 03/26/2021. Advised that she monitor her blood pressures while on florinef and update Dr King with any persistently high blood pressures > 140s mmHg systolic. Advise periodic assessment for hypokalemia while taking florinef. Advise calcium and vitamin D supplementation if the patient is to take florinef termite helper. Discussed termite helper cardiac monitoring with an Implantable Loop Recorder to assess for any arrhythmogenic causes of TLOC and she will consider further; will mail educational material about the Implantable Loop Recorder. On prior visit 06/13/2023: She reports difficulties with low blood pressures down to 70s/40s mmHg. She reports taking fludrocortisone 0.[address] King. Orthostatic vitals here today 06/13/2023 showed blood pressures from 127/74 mmHg supine to 113/68 mmHg standing. Recheck echocardiogram; ECG with possible Q-waves (seen in the past as well). We discussed the possible benefit of a repeat 45-minute passive Tilt Table Test with [id number] blood pressure measurement and the patient agrees; the risks, benefits, and alternatives were discussed with the patient and the consent form was signed. Follow up with Autonomic Neurology Sheryl Garza to reassess for neurogenic etiology for low / labile blood pressures. Follow up with Endocrinology to assess for possible adrenal insufficiency. Follow up with Endocrinology as well for monitoring while on fludrocortisone; she reports taking calcium and Vitamin D but had foot fracture after slipping. Will copy Cardiology Dr King on these notes as well, with consideration for further evaluation of possible Q-waves on ECG depending on echocardiogram results. Depending upon Tilt Table Test results, can possibly recommend changing fludrocortisone to midodrine or other medication. Today 12/15/2023: Tilt Table Test 12/14/2023 showed progressive orthostatic hypotension despite taking florinef 0.1 mg daily including that morning. Discussed concern for neurogenic etiology for orthostatic hypotension, especially as the heart rates did not significantly increase with the decrease in blood pressure. Sheryl in Neurology increased florinef this morning to 0.2 mg daily. Advise periodic assessment for hypokalemia while taking florinef. Advise calcium and vitamin D supplementation if the patient is to take florinef termite helper. A prescription for pantyhose length compression stockings was also provided by Sheryl this morning. Advised that when her symptoms are severe and blood pressure is low, she can consider drinking 2 tall glasses of water quickly (around 500 ml), which may improve symptoms via a presumed pressor effect. This should not be done frequently (limit using this to only once per day) and should not be done routinely but can help with severe symptoms. Discussed that if symptomatic orthostatic hypotension still persists despite the increase in florinef along with these other measures, then midodrine can be considered. The following are also recommended: -Sit down or lie down when symptomatic -Caution with assuming upright position (especially at night), with use of the toilet, and with showering. -Avoid dehydration -Adequate fluid hydration -Care with / Avoid substances that cause vasodilation (eg alcohol) -Consider using a Home Medical Alert System / Personal Emergency Response System -Avoid activities that may be hazardous to yourself or others in the context of active episodes loss of consciousness or near loss of consciousness. -Local / state laws should be followed regarding driving. Otherwise, general recommendations include: -No private driving if symptoms occur while driving -No private driving for 1 month following an episode of syncope. [ACC/AHA Syncope Guidelines 2017. PMID 83022712] -If syncope is frequent (more than 6 episodes in 1 year), then no private driving until symptoms are controlled. [ACC/AHA Syncope Guidelines 2017. PMID [id number]] -For professional or commercial driving, driving recommendations may differ depending upon company or governmental regulations. Andrea Lees MD, [facility], [facility] Director of the Syncope Center Cardiac Electrophysiology [facility] The Nurses and Nurse Practitioners at [facility] are integral to your care. -*Test results will be available on [employer].* -For brief questions regarding the test results, please send a [employer] message or call the office ([phone]), and a Nurse will be in contact. -If you would prefer more extensive discussions of the test results and recommendations, you can request a follow up visit (which can be a Virtual Visit if you prefer). A copy of this note will be made available to your referring or primary physician. As a national referral center for syncope and related conditions seeing patients from across the country, we depend upon the involvement of your primary care physician for long-term, ongoing care. Notably, the ongoing management and follow-up of conditions such as Inappropriate Sinus Tachycardia (IST), Postural Tachycardia Syndrome (POTS), and other conditions of orthostatic intolerance involves your primary carephysician. Therefore, please contact your primary care physician to process any needed documentation (such as work forms, disability forms, etc.). Please note, pre-operative cardiac risk evaluation is not a service we provide. Tests or evaluations performed here can be made available upon request. Thank you for your visit today. Our hope is to be able to provide you with further appropriate evaluation of your symptoms to arrive at a diagnosis, and to provide guidance for you and your primary physician as you continue to work together for your ongoing care. Our hope is to help guide you towards the best of health. * Kelsea Figueroa, JEN - 12/15/2023 1:45 PM EDT Images from the original note were not included. [facility] [place] [facility] Department of Cardiovascular Medicine SECTION OF CARDIAC PACING and ELECTROPHYSIOLOGY OUTPATIENT VISIT DATE December 15, 2023 PRIMARY CARE PHYSICIAN: Erich Gillis DO [address] [place] [id number] NURSING INTAKE HISTORY: Ms. Douglas is a 78-year-old female who is seen today for follow-up for TLOC, LOC, and labile BPs. She was last seen in the office on 06/13/23. She has a past medical history of HLD, DM2, PSVT, TLOC, and LOC. She began having frequent and progressive episodes of hypotension in 2020. She would have episodes multiple times a day with associated worsened fatigue, lightheadedness, tachycardia, and occasional nausea. She noted that episodes occurred randomly, but did worse with postural changes. She also reported to get wobbly/physically sway. She may have had overt LOC with these episodes. She reports frequent dizziness/lt headedness daily, sometimes multiple times a day. She also endorses associated shortness of breath. She reports these episodes get severe/approach near-syncope about1-2x/week. She is not sure if she has ever experienced overt LOC. She has been maintained on florinef, and reports some slight improvement to her symptoms. She underwent a Tilt Table Test yesterday which was stopped early at 20 min into 70 degree HUT d/t drop in BP. Her previous tilt (09/16/21) was negative for syncope. Her most recent echo (07/18/23) showed an LVEF of 68% and mild AR. QSART (09/22/21) was negative. Cardiovascular autonomic panel (09/22/21)was abnormal d/t reduced Valsalva ration, which was consistent w/ a cardiovagal abnormality, however, there was no evidence of a significant cardiovascular adrenergic abnormality. A 2-week Zio Patch she wore in 2020 showed a min HR of 56 bpm, max HR of 167 bpm, and avg HR of 79 bpm. Predominant underlying rhythm was Sinus Rhythm. 6 Supraventricular Tachycardia runs occurred, fastest interval lasted 4 beats w/ max rate of 167 bpm, longest lasted 16 beats w/ avg rate of 137 bpm. Patient triggered events correlated w/ NSR and ST. She denies chest pain, orthopnea, cough, edema, palpitations, or PND. She tries to maintain adequate hydration with water, though she is uncertain of the quantity. She estimates 32 oz of water per day. She adds salt to her food. She doesn't drink alcohol or caffeine. She does wear compression stockings. She is currently doing PT for L3-L4, 2x/week. Of note, she is currently being evaluated by Neurology for her symptoms. It was determined she doesnot have neurodegenerative Parkinsonism. Her florinef was increased today from 1 tablet daily to 2,and a skin biopsy was ordered to assess for SFN. ECHO 07/18/23: CONCLUSIONS: - Exam indication: Abnormal BP - The left ventricle is normal in size. Left ventricular systolic function is normal. EF = 68 5% (2D biplane) Normal left ventricular diastolic function. - The right ventricle is normal in size. Right ventricular systolic function is normal. - Tricuspid aortic valve, better visualized on prior echocardiogram. - Exam was compared with the prior CC echocardiographic exam performed on 12/24/2020. Mild AR seen today. NEURO QSART 09/22/21: QSART responses at the left forearm, proximal leg, distal leg , and foot are normal. There is no evidence of a significant postganglionic sympathetic sudomotor abnormality like that seen in autonomic/small fiber neuropathy. NEURO CARDIO AUTONOMIC REFLEX W/WO TILT 09/22/21: IMPRESSION: Heart rate response to deep breathing is normal via the mean heart rate range and the E:I ratio. Heart rate response to the Valsalva maneuver, as assessed by the Valsalva ratio, is reduced but the blood pressure responses to phase II and phase IV of the maneuver are intact. This is an abnormal cardiovascular autonomic test panel due to a reduced Valsalva ratio. This finding is nonspecific but is consistent with a cardiovagal abnormality. However, other tests of cardiovagal function, the heart rate response to deep breathing via the mean heart rate range method and E:Iratio are normal. There is no evidence of a significant cardiovascular adrenergic abnormality. 2-week Zio Patch 12/24 - 01/07/21: Patient had a min HR of 56 bpm, max HR of 167 bpm, and avg HR of 79 bpm. Predominant underlying rhythm was Sinus Rhythm. 6 Supraventricular Tachycardia runs occurred, the run with the fastest interval lasting 4 beats with a max rate of 167 bpm, the longest lasting 16 beats with an avg rate of 137 bpm. Isolated SVEs were rare (<1.0%), SVE Couplets were rare (<1.0%), and SVE Triplets were rare (<1.0%). Isolated VEs were rare (<1.0%), VE Couplets were rare (<1.0%), and no VETriplets were present. Patient triggered events / symptom notations correlated with sinus rhythm, sinus tachycardia. PAST MEDICAL HISTORY No date: Carpal tunnel syndrome No date: Diverticulosis of colon (without mention of hemorrhage) No date: Hypotension No date: Localized osteoarthrosis not specified whether primary or secondary, hand No date: Mastodynia No date: Other chronic sinusitis No date: Type II or unspecified type diabetes mellitus without mention of complication, uncontrolled No date: Vertigo Comment: Current workupPAST SURGICAL HISTORY No date: ARTHROSCOPY KNEE DIAGNOSTIC W/WO SYNOVIAL BX SPX; Left Comment: Arthroscopy, knee 1998: BIOPSY BREAST OPEN INCISIONAL Comment: needle localization right breast 1996: BIOPSY BREAST OPEN INCISIONAL Comment: right breast No date: CARPAL TUNNEL Comment: right No date: LAPS ABD PRTM&OMENTUM DX W/WO SPEC BR/WA SPX Comment: Laparoscopy 1992: TOTAL ABDOMINAL HYSTERECT W/WO RMVL TUBE OVARY SOCIAL HISTORY Social History Tobacco Use Smoking status: Never Smokeless tobacco: Never Vaping Use Vaping status: Never Used Substance Use Topics Alcohol use: Not Currently Drug use: No Comment: denies tx for drug/alcohol abuse in the past. FAMILY HISTORY Problem Relation Age of Onset Dementia Mother Coronary Artery Disease Father COPD Father No Known Problems Brother Dementia Brother No Known Problems Brother Ovarian cancer Maternal Grandmother Breast Cancer Other no known family h/o breast cancer ALLERGIES: ALLERGIES Allergen Reactions Asa [Salicylates] causes platelet disfunction Aspirin Unknown, Other: See Comments Levaquin [Levofloxa* Rash, Other: See Comments Per pt feels like she on fire Avelox [Moxifloxaci* Intolerance C/O burning feeling on skin MEDICATIONS: fludrocortisone (FLORINEF) 0.1 mg tablet Take 2 tablets by mouth once daily. semaglutide (OZEMPIC) 1 mg/dose (4 mg/3 mL) pen Inject 1 mg subcutaneously one time a week. rosuvastatin (CRESTOR) 5 mg tablet TAKE 1 TABLET BY MOUTH AT BEDTIME EVERY NIGHT gabapentin (NEURONTIN) 300 mg capsule Take 1 capsule by mouth two times a day AND 3 capsules daily at bedtime. Do all this for 90 days. blood sugar diagnostic (TRUE METRIX GLUCOSE TEST STRIP) test strip Use with blood glucose test oncedaily lancets (TRUEPLUS LANCETS) 33 gauge Use with blood glucose test once daily Blood-Glucose Meter (TRUE METRIX GLUCOSE METER) 1 Each once daily. ergocalciferol 50,000 unit capsule (VITAMIN D2, DRISDOL) TAKE 1 CAPSULE ONE TIME WEEKLY clonazePAM (KLONOPIN) 0.5 mg tablet Take 1 tablet by mouth as needed. For restless leg syndrome loratadine (CLARITIN) 10 mg tablet Take 10 mg by mouth once daily. fluticasone (FLONASE) 50 mcg/actuation nasal spray Use 2 Sprays in each nostril twice daily. pen needle, diabetic (COMFORT EZ PEN NEEDLES) 33 gauge x 5/16 ndle To inject weekly esomeprazole (NEXIUM) 20 mg capsule Take 1 capsule by mouth DAILY (6 AM). MULTIVITAMIN (MULTI-DAY ORAL) Take by mouth once daily. calcium carbonate 600 mg-cholecalciferol 200 units (CALCIUM 600 + D,3,) 600 mg(1,500mg) -200 unit tab Take 1 tablet by mouth once daily. Ht 5' 8 (1.73m) Wt 179 lb (81.2kg) BMI 27.22 kg/(m^2). Orthos per Neurology appt earlier this afternoon BP w/Orthostatic Vitals Date and Time Orthostatic BP Orthostatic Pulse BP Pulse BP Position BP Site BP Cuff Size 12/15/23 1217 108/56 76 -- -- Standing -- -- 12/15/23 1216 96/44 78 -- -- Sitting -- -- 12/15/23 1214 111/57 69 -- -- Supine -- -- REVIEW OF SYSTEMS: [facility] Syncope [facility] Score Please estimate the frequency of the following symptoms: Never-0, Rare-1, Occasional-2, Frequent-3, Daily-4, Constant*-5 Symptoms Subtotal Syncope/Near Syncope Score 1 Dizziness/Lightheadedness Score 4 Exercise Intolerance Score 0 Headache Score 0 Sleep Problems Score 4 Total Frequency Score 9 *For syncope/near syncope multiple episodes daily Please estimate the severity of the following symptoms: None-0, Minimal-1, Mild-2, Moderate-3, Severe-4, Intolerable-5 Symptoms Subtotal Palpitations/Tachycardia Score 0 Fatigue Score 4 Brain Fog Score 2 Shortness of Breath Score 1 GI Symptoms Score* 4 Total Severity Score 11 *GI symptoms include nausea, bloating, diarrhea, constipation, poor appetite, abdominal pain, earlysatiety Total of Both Sections: 20 Kelsea Figueroa RN documented in this encounterWilson [facility]09-05-2024 Instructions* Patient Instructions* Sheryl Garza APRN.CNP - 12/15/2023 12:23 PM EDT 1) Labs in 1 month (after starting increased fludrocortisone dose) 2) Skin biopsy 3) Increase fludrocortisone to 0.2 mg (2 tablets) daily in AM 4) Discuss cholesterol management with PCP or cardiology 5) Consider balance therapy when finished with PT for your back FLUDROCORTISONE Fludrocortisone (Florinef) is a medication designed to retain sodium and therefore retain water. Itincreases the blood volume and will aide in boosting the blood pressure. By increasing the blood pressure, patients can have less dizziness, lightheadedness, and fatigue associated with postural changes. Negative side effects include GI upset, water retention, and low potassium levels. Like all medications, there is some risk of allergic reaction. Please monitor the blood pressure closely while starting medication, and let me know if the medication is getting too high (systolic BP / top number >150). documented in this encounterWilson Health09-05-2024 History of Present illness Narrative* Sheryl Garza, MARÍA ELENA.ENVIRONMENTAL ENGINEER SCIENTIST - 12/15/2023 12:00 PM EDT Images from the original note were not included. [facility] Follow-Up/Established Patient Visit Chief Complaint/Issues: Hola Douglas is a 78 year old handed right-handed female seen in the [facility] for: Follow up Orthostatic hypotension Brief HPI /Most Recent Department Assessment and Plan: Most recent follow up 07/26/2023: We discuss main concerns today: 1) Hypotension -Reports hypotension both while standing and seated. -On fludrocortisone 0.1 mg daily. -She had EPS tilt ordered to repeat by saida Shah for 11/2023. -Will add ambulatory BP monitor. 2) Lumbar symptoms -Following with local pain management for lumbar spondylosis. -Does have sensory disturbance and LLE weakness disproportionate to R today, which does not clearlyfollow dermatome. Will obtain EMG for probably radiculopathy vs asymmetry of neuropathy. 3) Neuropathic pain -Recently worsened Hgb A1C, sees PCP and endocrinology. -I will take over gabapentin management if she discusses with Pain management. 4) Other exam abnormalities -Abnormal eye movements are new today (jerky pursuits, hypermetric saccades, end point nystagmus). Some reduced arm swing is new as well. -Some concern for possible MSA / central abnormality, will obtain MRI brain and movement consult. 1) Labs 2) Agree with repeat EPS tilt - Final report not available 3) Ambulatory BP monitor - Not completed -Closely record symptoms and BP medications 4) EMG 5) MRI Brain w/ w/o 6) Consult to movement disorders 7) Follow up with pain mangement for leg / back pain --- Seen by [facility] Movement Disorders, 09/13/2023: Assessment Ms. Douglas is a right-handed 78 year old year old female with orthostatic hypotension since 2020 whois referred due to concern for possible parkinsonian disorder. There is no hyposmia, no RBD, no micrographia, and no significant tremor. On exam there is no evidence of parkinsonism (no resting tremor, tone is normal, no bradykinesia). Smooth pursuit is choppy, and saccades are mildly hypometric, which are non-specific findings but frequently seen in SERGER small vessel ischemic disease. Recent EMG shows severe axonal polyneuropathy. Most likely her imbalance and orthostatic hypotension are secondary to neuropathy. Suspect small vessel ischemic disease may be contributing to eye movement abnormalities and gait disorder. At this point concern for neurodegenerative Parkinsonism is fairly low; though she can follow up again in 6 months or so to ensure no new symptoms or exam findings present themselves. The following are the current problems noted and addressed during this visit: Labile blood pressure Abnormal saccadic eye movement Pursuit movement deficiency Postural instability Plan 09/13/2023 Visit: - Low concern for neurodegenerative parkinsonism at this time. See discussion above. Agree with obtaining MRI brain (scheduled for next month). Today, December 15, 2023: Accompanied by Sravan. Follow up tilt done yesterday, report not yet available. We review I cannot see the minute by minute data today but the tilt looks like it is likely OH. She did take her fludrocortisone during the tilt but nothing else. Having quite a few low BPs at home where she needs to lay down and elevate legs. Almost weekly. As low as 60s / 40s mmHg. 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 specified whether primary or secondary, hand No date: Mastodynia No date: Other chronic sinusitis No date: Type II or unspecified type diabetes mellitus without mention of complication, uncontrolled No date: Vertigo Comment: Current workup PAST SURGICAL HISTORY No date: ARTHROSCOPY KNEE DIAGNOSTIC W/WO SYNOVIAL BX SPX; Left Comment: Arthroscopy, knee 1998: BIOPSY BREAST OPEN INCISIONAL Comment: needle localization right breast 1996: BIOPSY BREAST OPEN INCISIONAL Comment: right breast No date: CARPAL TUNNEL Comment: right No date: LAPS ABD PRTM&OMENTUM DX W/WO SPEC BR/WA SPX Comment: Laparoscopy 1992: TOTAL ABDOMINAL HYSTERECT W/WO RMVL TUBE OVARY ALLERGIES Allergen Reactions Asa [Salicylates] causes platelet disfunction Aspirin Unknown, Other: See Comments Levaquin [Levofloxa* Rash, Other: See Comments Per pt feels like she on fire Avelox [Moxifloxaci* Intolerance C/O burning feeling on skin Social History Tobacco Use Smoking status: Never Smokeless tobacco: Never Vaping Use Vaping status: Never Used Substance Use Topics Alcohol use: Not Currently Drug use: No Comment: denies tx for drug/alcohol abuse in the past. FAMILY HISTORY Problem Relation Age of Onset Dementia Mother Coronary Artery Disease Father COPD Father No Known Problems Brother Dementia Brother No Known Problems Brother Ovarian cancer Maternal Grandmother Breast Cancer Other no known family h/o breast cancer Current management of orthostatic condition Conservative Measures: Increased water intake (2-2.5 liters of water daily) Increased salt intake (3-5 grams daily) Compression stockings Cardiac Rehab / Progressive exercise Shared medical appointment with Dr. Cuco Sepulveda head of bed Continue with mental health care Medications Current Outpatient Medications on File Prior to Visit Medication Sig semaglutide (OZEMPIC) 1 mg/dose (4 mg/3 mL) pen Inject 1 mg subcutaneously one time a week. rosuvastatin (CRESTOR) 5 mg tablet TAKE 1 TABLET BY MOUTH AT BEDTIME EVERY NIGHT gabapentin (NEURONTIN) 300 mg capsule Take 1 capsule by mouth two times a day AND 3 capsules daily at bedtime. Do all this for 90 days. blood sugar diagnostic (TRUE METRIX GLUCOSE TEST STRIP) test strip Use with blood glucose test oncedaily lancets (TRUEPLUS LANCETS) 33 gauge Use with blood glucose test once daily Blood-Glucose Meter (TRUE METRIX GLUCOSE METER) 1 Each once daily. fludrocortisone (FLORINEF) 0.1 mg tablet Take 1 tablet by mouth once daily. ergocalciferol 50,000 unit capsule (VITAMIN D2, DRISDOL) TAKE 1 CAPSULE ONE TIME WEEKLY clonazePAM (KLONOPIN) 0.5 mg tablet Take 1 tablet by mouth as needed. For restless leg syndrome loratadine (CLARITIN) 10 mg tablet Take 10 mg by mouth once daily. fluticasone (FLONASE) 50 mcg/actuation nasal spray Use 2 Sprays in each nostril twice daily. pen needle, diabetic (COMFORT EZ PEN NEEDLES) 33 gauge x 5/16 ndle To inject weekly esomeprazole (NEXIUM) 20 mg capsule Take 1 capsule by mouth DAILY (6 AM). MULTIVITAMIN (MULTI-DAY ORAL) Take by mouth once daily. calcium carbonate 600 mg-cholecalciferol 200 units (CALCIUM 600 + D,3,) 600 mg(1,500mg) -200 unit tab Take 1 tablet by mouth once daily. No current facility-administered medications on file prior to visit. Relevant Work Up To Date MRI Brain w/ wo 11/05/2023 IMPRESSION: 1. No acute intracranial process evident. 2. Periventricular signal abnormality without mass effect nor enhancement in keeping with small vessel ischemic changes. 3. Old ischemic changes in the right frontal white matter. 4. Central and cortical age related atrophy. 5. Mild paranasal sinus disease and mild fluid bilaterally at the mastoid air cells. --- EMG 08/24/2023 Extensive electrodiagnostic examination of the left lower including nerve conductions study and needle exam with additional studies of the right lower extremity reveals evidence of a generalized sensorimotor polyneuropathy, affecting the lower extremity, which is predominately axonal in type, and severe in degree electrically. This constellation of findings is nonspecific for etiology and consistent with an axon loss polyneuropathy affecting lower extremity in length dependent pattern, as may be seen in metabolic, toxic, nutritional or hereditary causes. Chronic motor axonal loss changes are present in muscles distal to the knee bilaterally. There is no evidence of L3-S1 motor radiculopathyon the left nor L5/S1 on the right. Pure sensory radiculopathy can not be assessed with EMG test. --- MRI Cervical wo 12/04/2023 IMPRESSION: At C4-5, there is a shallow broad disc osteophyte complex indenting the thecal sac. There is moderate right and mild left foraminal stenosis. 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 No significant central canal or foraminal stenosis. At C6-7, there is a shallow broad disc osteophyte complex indenting the thecal sac. There is moderate left foraminal stenosis. Intrinsic cord signal is normal. 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 --- MRI Lumbar wo 12/04/2023 IMPRESSION: At L3-4, there is a new right subarticular and foraminal disc osteophyte complex compressing both the exiting L3 nerve and traversing L4 nerve root. There is progressing mild to moderate central canal stenosis. There is progressing mild left foraminal stenosis. At L4-5, there is progressing mild to moderate central canal stenosis. There is progressing mild to moderate bilateral foraminal stenosis. At L5-S1, there is a mildly progressing left paracentral and foraminal disc osteophyte complex. There is progressing mass effect and displacement of the left traversing S1 nerve root. There is progressing moderate to severe left foraminal stenosis. Anatomic Lumbar Variant: None. L4-5 is considered the level of the iliac crest and assume there are 5 lumbar-type vertebrae. EPS Tilt 09/16/2021 * FINAL IMPRESSIONS * - The test was completed per protocol at 45 minutes of 70 degree tilt. - Systolic blood pressures remained stable from 115 mmHg at start to 122 mmHg at end of tilt. - Diastolic blood pressures oscillated from 63 mmHg at start to 54 mmHg at end of tilt. - Blood pressure upon return to supine position was 133/47 mmHg. - Heart rates increased from 70 bpm at start to 97 bpm at end of tilt. - Heart rate upon return to supine position was 66 bpm. - ECGs showed: sinus, baseline QTc 465, infrequent PVC; no diagnostic ST changes - Patient signs/symptoms included: DIZZINESS, HOT, PAIN, SEE NOTE, SOB, VISION CHANGES. - Overall: The test is negative for syncope. --- EPS TILT 01/17/2018 * FINAL IMPRESSIONS * - The test was stopped early at 34 out of 45 minutes of 70 degree tilt due to extensive symptoms nausea weakness and lightheadedness at patient's request. - Systolic blood pressures decreased from 131 mmHg at start to 112 mmHg at end of tilt. - Diastolic blood pressures decreased from 78 mmHg at start to 59 mmHg at end of tilt. - Blood pressure upon return to supine position was 141/70 mmHg. - Heart rates increased from 78 bpm at start to 107 bpm at end of tilt. - Heart rate upon return to supine position was 83 bpm. - ECGs showed: normal sinus rhythm with myocardial changes but no arrhythmias, and QT prolongation at baseline, repeat tilt and recovery. - Patient signs/symptoms included: HOT, LIGHTHEADED, LIGHTHEADEDNESS, NAUSEA, SEE NOTE. - Overall: The test is diagnostic for accentuated postural tachycardia. The test is diagnostic for orthostatic hypotension. --- Neuro Autonomic Reflex W/O 09/16/2021 Heart rate response to deep breathing is normal via the mean heart rate range and the E:I ratio. Heart rate response to the Valsalva maneuver, as assessed by the Valsalva ratio, is reduced but the blood pressure responses to phase II and phase IV of the maneuver are intact. This is an abnormal cardiovascular autonomic test panel due to a reduced Valsalva ratio. This finding is nonspecific but is consistent with a cardiovagal abnormality. However, other tests of cardiovagal function, the heart rate response to deep breathing via the mean heart rate range method and E:Iratio are normal. There is no evidence of a significant cardiovascular adrenergic abnormality. --- QSART 09/16/2021 QSART responses at the left forearm, proximal leg, distal leg , and foot are normal. There is no evidence of a significant postganglionic sympathetic sudomotor abnormality like that seen in autonomic/small fiber neuropathy. --- Cardiac Event Monitor 12/24/2020-01/07/2021 Patient had a min HR of 56 bpm, max HR of 167 bpm, and avg HR of 79 bpm. Predominant underlying rhythm was Sinus Rhythm. 6 Supraventricular Tachycardia runs occurred, the run with the fastest interval lasting 4 beats with a max rate of 167 bpm, the longest lasting 16 beats with an avg rate of 137 bpm. Isolated SVEs were rare (<1.0%), SVE Couplets were rare (<1.0%), and SVE Triplets were rare (<1.0%). Isolated VEs were rare (<1.0%), VE Couplets were rare (<1.0%), and no VE Triplets were present. Patient triggered events / symptom notations correlated with sinus rhythm, sinus tachycardia --- ECHO 12/24/2020 CONCLUSIONS: - Exam indication: Hypertensive heart disease - The left ventricle is normal in size. Left ventricular systolic function is normal. EF = 69 5% (2D 4-ch.) - The right ventricle is normal in size. Right ventricular systolic function is normal. -No significant valvular abnormalities noted on the study - Exam was compared with the prior CC echocardiographic exam performed on 12/29/2017. No significantchange. --- Echo 07/18/2023 CONCLUSIONS: - Exam indication: Abnormal BP - The left ventricle is normal in size. Left ventricular systolic function is normal. EF = 68 5% (2D biplane) Normal left ventricular diastolic function. - The right ventricle is normal in size. Right ventricular systolic function is normal. - Tricuspid aortic valve, better visualized on prior echocardiogram. - Exam was compared with the prior CC echocardiographic exam performed on 12/24/2020. Mild AR seen today. --- General Examination: BP 106/70 (BP Site: Left Arm, BP Position: Sitting, BP Cuff Size: Regular Adult) Pulse 84 Ht 172.7 cm (5' 8 ) Wt 82.8 kg (182 lb 8.7 oz) SpO2 93% BMI 27.76 kg/m 12/15/23 1138 12/15/23 1214 12/15/23 1216 12/15/23 1217 BP: 106/70 Orthostatic BP: 111/57 96/44 108/56 BP Site: Left Arm BP Position: Sitting Supine Sitting Standing BP Cuff Size: Regular Adult Pulse: 84 Orthostatic Pulse: 69 78 76 SpO2: 93% Weight: 82.8 kg (182 lb 8.7 oz) Height: 172.7 cm (5' 8 ) Neurological Examination: Cognition The patient is alert and attentive during conversation. Able to provide detailed medical hx. Speech Speech is normal in fluency, volume, and clarity. No dysarthria. Content and syntax are coherent. Cranial Nerves No ptosis. No gross asymmetry. Subjective Patient-Entered Data: Autonomic Screening COMPASS-31 Past Scores No data to display NM Treatment and Fall Risk PROMIS-10 10/19/2023 07/25/2023 PROMIS 10 Health, in general Good Good Quality of life, in general Good Good Physical health, in general Good Good Mental health, in general Good Good Social activities satisfaction Fair Fair Performing ADL's Mostly Moderately Social role satisfaction Good Fair Pain, on average 6 3 Fatigue, on average Moderate Moderate Emotional problems Sometimes Sometimes PHYSICAL Score 42.3 (Good) 42.3 (Good) MENTAL Score 41.1 (Good) 41.1 (Good) PHQ-9 11/26/2023 09/08/2023 PHQ-9 All Questions Little interest or pleasure in doing things 1 0 Feeling down, depressed, or hopeless 1 1 Trouble falling or staying asleep, or sleeping too much 2 1 Feeling tired or having little energy 3 2 Poor appetite or overeating 1 0 Feeling bad about yourself - or that you are a failure or have let yourself or your family down 1 0 Trouble concentrating on things, such as reading the newspaper or watching television 0 0 Moving or speaking so slowly that other people could have noticed. Or the opposite - being so fidgety or restless that you have been moving around a lot more than usual 0 0 Thoughts that you would be better off , or of hurting yourself in some way 0 0 PHQ-9 Score 9 4 (0-4) minimal depression (5-9) mild depression (10-14) moderate depression (15-19) moderately severe depression (20-27) severe depression TRINITY-7 09/08/2023 07/25/2023 TRINITY-7 All Questions Feeling nervous, anxious, or on edge Several days Not being able to stop or control worrying Not at all Not at all Worrying too much about different things Not at all Not at all Trouble relaxing Not at all Being so restless that it is hard to sit still Not at all Not at all Becoming easily annoyed or irritable Not at all Several days Feeling afraid, as if something awful might happen Not at all Not at all TRINITY-7 Score 1 (0-5) mild anxiety (6-10) moderate anxiety (11-15) moderately severe anxiety (16-21) severe anxiety Sleep 05/19/2022 11/05/2020 -- Snore Loudly No No Tired, fatigued or sleepy in daytime Yes Yes Stop breathing or choking/gasping during sleep No No High blood pressure No No Probability of moderate-severe sleep apnea (%) SAPS V2 31 (Sleep study not recommended) 32.22 (Sleep study not recommended) No data to display Assessment & Plan 12/15/2023 - Neuromuscular, Sheryl Garza, [employer].ENVIRONMENTAL ENGINEER SCIENTIST ASSESSMENT Hola Douglas is a 78 year old here today for follow up. 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 Seen initially for onset of symptoms ~2020, at which time she developed hypotension. She has a longstanding history of poorly controlled DM2, and reports issues with diabetic neuropathy since ~2009. Reported occasional episodes of LOC preceded by feeling weak, tired, and lightheaded, able to lowerto the ground. No seizure signs. Orthostatic vitals in the office at initial appointment demonstrating maximum SBP reduction 19 mmHg. And heart rate increase 18 bpm. EPS tilt in 2018 demonstrating blood pressures meeting criteria for mild POTS vs [place] (maximum heart rate increase of 29 bpm and SBP reduction of 21 mmHg both at [id number] of tiltm at which time testing was terminated due to symptoms). EPS tilt in 2021 with relativelystable BPs (maximum decrease SBP 12 mmHg, which recovered), with some tachycardia (maximum HR increase 35 bpm at minute 39). Most recent Echo 07/2023 demonstrating mild AR but otherwise WNL. Repeat tilt was ordered by cardiology and completed 12/14/2023. On most recent examination had sensory disturbance and LLE weakness disproportionate to R today, not clearly following dermatome. EMG completed 08/2023 and on my review consistent with PN vs lumbar radic L>R L4-5 >L5-S1. We discuss we will obtain skin biopsy to assess for SFN. Established with [facility], and MRI cervical and lumbar completed 11/2023, demonstrating L3-L4 mild-moderate canal stenosis and L foraminal stenosis, L4-L5 mild-moderate canal stenosis and bilateral foraminal stenosis, and L5-S1 L paracentral disc osteophye comlex with mass effect on the S1 nerve root, moderate-severe L foraminal stenosis. At that time also had some abnormal eye movements and postural instability, referred to [facility] who did not feel she had neurodegenerative parkinsonism. 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 Reports in the interim worsened hypotension at home as well as increased feelings of imbalance and pre-syncope. No final tilt report available but remarks on SBP as low as 70s mmHg. She is hypotensive today while sitting with SBP 90s mmHg. PLAN 1) Labs in 1 month (after starting increased fludrocortisone dose) 2) Skin biopsy 3) Increase fludrocortisone to 0.2 mg (2 tablets) daily in AM 4) Discuss cholesterol management with PCP or cardiology 5) Consider balance therapy when finished with PT for your back Return in about 6 months (around 06/13/2024). My impression and recommendations were discussed at length with the patient (and family members, ifpresent). The patient and family (if present) voiced understanding to my recommendations. All questions were answered. Medication side effects discussed as applicable. The patient was provided with adetailed after visit summary highlighting my impression and recommendations. I spent a total of 45 minutes on the date of the service which included preparing to see the patient, [id number] patient care, completing clinical documentation, obtaining and/or reviewing separately obtained history, counseling and educating the patient/family/caregiver, and ordering medications, tests, or procedures. Sheryl Garza APRN.[facility] [address] [place] [address] Appointment: [phone] During our face to face clinical encounter we discussed my concerns neurologically in terms of diagnosis, impact on health and activities of living, and addressed questions. I tried to reassure the patient and also address questions. I explained to the patient to call if any questions, to review res ults, and I want to see them return for neurological follow up as mychart as next steps of communication is agreed upon Patient verbalizes understanding and I have addressed concerns and questions at this visit Patient has my contacts, educational material provided, and my chart sign up. After visit summary discussed. 1. This office note has been dictated and may contain minor typographic errors that escaped review. 2. The nursing staff and medical assistants are a major part of YOUR TREATMENT TEAM and will be handling your phone calls and inquiries, if any. Unless explicitly told otherwise at the time of your office visit, your study results and ensuing treatment plans will be discussed during your follow-up appointment. If you do not have a follow-up appointment and wish to discuss any issues directly withme, please feel free to obtain one. 3. It is my practice to not fill disability or any other insurance-related forms/documention. All of the office notes, study results, and other pertinent documentation generated as part of your evaluation will be available to you and to your Primary Care Physician (PCP). Use of this material to complete such forms will be at the discretion of your PCP/referring physician documented in this encounterWilson Health09-04-2024 History of Present illness Narrative* Elvi Fenton RN - 12/14/2023 10:35 AM EDT UNIVERSAL PROTOCOL / SAFETY CHECKLIST Procedure to be performed: [facility]: TILT Sign in Communication: Completed Time Out: Team Confirms the Correct Patient, Correct Procedure, Correct Site and Site Marking, Correct Position (if applicable). Time: 11:05 STAFF: Andrea Lees MD Affirmation of Time Out: N/A Sign Out Discussion: Completed Elvi Fenton RN Orders placed 06/13/[address] Andrea Lees MD Allergies: Asa [Salicylates], Aspirin, Levaquin [Levofloxacin], and Avelox [Moxifloxacin Hcl] Test done in consult with Dr. Andrea eLes MD . Procedure Start Time: 11:06 Height 172.7 cm Weight 79.4 kg Patient fasting for 4 hours: Yes Support stockings taken off for procedure: Not applicable Pain Assessment: Patient states none Comfort Measures: Added pillow for head/shoulders Pacemaker: No IV Placement: by Elvi Fenton RN Baseline: BP 109/68 HR 74 Pre-Max Tilt : 70 degrees 19 min BP 82/50 HR 84 Max Tilt: 70 degrees 20 min BP 72/44 HR 87 Note: Test was stopped early at the 20 min into 70 degree HUT due to decrease in blood pressure testing stopped and resume supine positioning. See Final Report for Diagnosis. IV discontinued at 12:09 by Lizbeth Keller RN. Staff involved in procedure: Elvi Fenton RN ; Lizbeth Keller RN , Procedure Finish Time: 12:10 documented in this encounterWilson Health09-03-2024 Telephone encounter Note * Telephone Encounter - Lizbeth Keller RN - 12/13/2023 11:34 AM EDT Called patient, left message on patient-identifying VM requesting patient to call back regarding a medication question prior to her tilt table test [facility]09-03-2024 Miscellaneous Notes* Telephone Encounter - Lizbeth Keller RN - 12/13/2023 11:34 AM EDT Called patient, left message on patient-identifying VM requesting patient to call back regarding a medication question prior to her tilt table test documented in this encounterWilson Health08-25-2024 History of Present illness Narrative* Zack Pichardo MRI Tech - 12/04/2023 10:40 AM EDT Radiology Service Progress Note PATIENT NAME: Hola Douglas DATE OF SERVICE: December 04, 2023 TIME: 10:45 AM PATIENT IDENTITY VERIFICATION COMPLETED USING TWO (2) IDENTIFIERS: Name and Date of confirmedby patient verbally and Name and Date of confirmed by identification band. FALL SCREENING: Has the patient had 2 falls in the last year or 1 fall with injury or currently using an Ambulatory Assistive Device (Walker, Cane, Wheelchair, Crutches, etc.)? No PATIENT GENDER DATA: Female. status: : No status: NO. PATIENT RELEVANT IMPLANT DATA REVIEWED: Not Applicable PATIENT PRESENTS WITH AN IMPLANTABLE OR ATTACHED PUBLIC HEALTH DIETITIAN: No RADIOLOGY DEPARTMENT: MR; Exam(s) Completed: Spine: Cervical spine and Lumbar spine PERIPHERAL IV DATA: Not applicable SIGNED BY: GUILHERME Saenz December 04, 2023 10:45 AM documented in this encounterWilson Health08-25-2024 NoteHNO ID: [id number] Author: ZACK PICHARDO MRI Tech Service: Radiology Author Type: Technologist Type: Progress Notes Filed: 12/04/2023 10:46 Note Text: Radiology Service Progress Note PATIENT NAME: Hola Douglas DATE OF SERVICE: December 04, 2023 TIME: 10:45 AM PATIENT IDENTITY VERIFICATION COMPLETED USING TWO (2) IDENTIFIERS: Name and Date of confirmed by patient verbally and Name and Date of confirmed by identification band. FALL SCREENING: Has the patient had 2 falls in the last year or 1 fall with injury or currently using an Ambulatory Assistive Device (Walker, Cane, Wheelchair, Crutches, etc.)? No PATIENT GENDER DATA: Female. status: : No status: NO. PATIENT RELEVANT IMPLANT DATA REVIEWED: Not Applicable PATIENT PRESENTS WITH AN IMPLANTABLE OR ATTACHED PUBLIC HEALTH DIETITIAN: No RADIOLOGY DEPARTMENT: MR; Exam(s) Completed: Spine: Cervical spine and Lumbar spine PERIPHERAL IV DATA: Not applicable SIGNED BY: Zack Pichardo, flight inspector December 04, 2023 10:45 [facility] [id number] NoteHNO ID: [id number] Author: ANNA MARIE TREJO RT(Selam) Service: ? Author Type: Vortex Operator Type: Progress Notes Filed: 11/29/2023 14:25 Note Text: Radiology Service Progress Note PATIENT NAME: Hola Douglas DATE OF SERVICE: November 29, 2023 TIME: 2:24 PM PATIENT IDENTITY VERIFICATION COMPLETED USING TWO (2) IDENTIFIERS: Name and Date of confirmed by patient verbally and Name and Date of confirmed by identification band. FALL SCREENING: Has the patient had 2 falls in the last year or 1 fall with injury or currently using an Ambulatory Assistive Device (Walker, Cane, Wheelchair, Crutches, etc.)? No PATIENT GENDER DATA: Female. status: : No status: NO. PATIENT RELEVANT IMPLANT DATA REVIEWED: Not Applicable PATIENT PRESENTS WITH AN IMPLANTABLE OR ATTACHED PUBLIC HEALTH DIETITIAN: No RADIOLOGY DEPARTMENT: General X-ray: Exam(s) Completed: Spine X-Ray(s): Lumbar AP / LAT / L5-S1 / FLEX-EXT PERIPHERAL IV DATA: Not applicable SIGNED BY: RT Yury(R) November 29, 2023 2:24 [id number] History of Present illness Narrative* Anna Marie Trejo RT(R) - 11/29/2023 2:24 PM EDT Radiology Service Progress Note PATIENT NAME: Hola Douglas DATE OF SERVICE: November 29, 2023 TIME: 2:24 PM PATIENT IDENTITY VERIFICATION COMPLETED USING TWO (2) IDENTIFIERS: Name and Date of confirmedby patient verbally and Name and Date of confirmed by identification band. FALL SCREENING: Has the patient had 2 falls in the last year or 1 fall with injury or currently using an Ambulatory Assistive Device (Walker, Cane, Wheelchair, Crutches, etc.)? No PATIENT GENDER DATA: Female. status: : No status: NO. PATIENT RELEVANT IMPLANT DATA REVIEWED: Not Applicable PATIENT PRESENTS WITH AN IMPLANTABLE OR ATTACHED PUBLIC HEALTH DIETITIAN: No RADIOLOGY DEPARTMENT: General X-ray: Exam(s) Completed: Spine X-Ray(s): Lumbar AP / LAT / L5-S1 / FLEX-EXT PERIPHERAL IV DATA: Not applicable SIGNED BY: RT Yury(R) November 29, 2023 2:24 PM documented in this encounterWilson Health08-20-2024 History of Present illness Narrative* Rachele Santo, PT - 11/29/2023 1:19 PM EDT Images from the original note were not included. Episode Visit Count: 1 Therapist That Will Accept/Oversee The Plan Of Care: [place] Start of Care Date: 11/29/23 Onset Date: 11/29/23 Plan of Care Certification Date: 11/29/23 Next Certification Due Date: 11/29/23 Patient Identified by Name and Date of : Yes [facility]TS THERAPY PHYSICAL THERAPY EVALUATION PLAN OF CARE: Assessment: Hola Douglas presents with diagnosis of chronic LBP with RLE radiculopathy and Low blood pressure that interferes with physical activities, lifting, bending, sleeping . She presents with impairments in ADL's, gait, independence in exercise, strength, and symptom management. Patient did not complete the PROMIS (Patient Reported Outcome Measures Information System). Prognosis for therapy is Fair due to: clinical presentation, chronic nature of impairments . Patient and wouldlike to be seen in [place] outside of [facility]. Order issued. She will benefit from skilled therapy fortrunk strengthening and general conditioning.services to meet the goals established for this plan of care as noted below. Goals for Episode of Care: created on 11/29/23 through 11/29/23 Independent in home exercises. Patient will decrease pain rating by 2 points to meet minimal clinical important difference for numeric pain rating scale. Stand / Walk community distances without pain/symptoms. Sleep through night without pain/symptoms. Proper hydration Improve 5 time sit to stand by 10 seconds Patient Goals: reduce pain Planned Interventions, Frequency, and Duration: Current Frequency: Discontinue Therapy Services (patient wants to fu with PT in [place] , PT order copied and given to patient) Planned Treatment Interventions: PLAN FOR NEXT VISIT: Patient demonstrates fair understanding of plan of care and treatment. The above goals and plan of care were discussed and agreed upon by patient/family. SUBJECTIVE: chronic low back pain x 12 years . Hx of low back and RLE radicular pain .She has seen pain management at [facility] with injections this year and last year. This year they did not help. Hx of lowblood pressure and dizziness. Does not drink water at home. Here today wtih spouse Patient Goals: reduce pain Functional Limitations: physical activities, lifting, bending, sleeping Prior Level of Function: Independent without limitations Relevant History Past Relevant Medical Conditions: Arthritis, Diabetes (low blood pressure) Employment: Retired Recreation / Current Exercise: none, has a stationary bike and treadmill Home Environment Patient Lives With: Spouse Intake Information: Prescription present Previous Treatment: Pain Management (lidocane patch) Falls Interview: No positive findings with falls interview Aquatic Screen: No Red Flags Vertebral Fracture Red Flags: Female, Age >70 Vertebral Fracture Clinical Reasoning: Proceed with caution due to the above (1- 2) risk factors Abdominal Aortic Aneurysm Clinical Reasoning: No identified risk factors. Cancer Clinical Reasoning: No identified risk factors. Infection Clinical Reasoning: No identified risk factors. Cauda Equina Syndrome Clinical Reasoning: No identified risk factors. Red Flags - Cervical Cancer Clinical Reasoning: No identified risk factors. Infection Clinical Reasoning: No identified risk factors. Spine History Symptoms Location at Onset: Back, Buttock, Thigh Symptoms Since Onset: Worsening Pain is Worse Always: Bending, On the Move, Rest Sleeping Position: Side lying right, Side lying left Sleep Affected by Pain: Pain keeps from falling asleep, Pain awakens Pain: Pain Pain Level: 9 Pain Location: Low Back/Lumbar Spine- Midline (and RLE radicular pain to the thigh) Description: Sharp Frequency: Continuous Post Treatment Pain Post Treatment Pain Level: No Change PROMIS Scales 11/26/2023 07/25/2023 Higher is Better Phys Func - Score 36 (moderate dysfunction) 36 (moderate dysfunction) Phys Func - Percentile 8 8 T-scores: mean of general population = 50. 5 points is clinically meaningfully difference Percentiles provide an indication of how the patient's score ranks in relation to the general population. Higher percentile rankings indicate better function/quality of life. 50th percentile is the average of the general population and indicates half of respondents had a worse score. OBJECTIVE MEASURES WITH LEVEL OF FUNCTION: Posture / Alignment Posture: Hip asymmetry, Decreased lumbar lordosis Spine Observations R Lumbar Spine Palpation Tenderness: No tenderness noted L Lumbar Spine Palpation Tenderness: No tenderness noted Lumbar Spine AROM Lumbar Flexion: Normal Lumbar Extension: Minimal limitation Lumbar R Side-Bend: Minimal limitation Lumbar L Side-Bend: Minimal limitation Lumbar R Rotation: Minimal limitation Lumbar L Rotation: Minimal limitation LE Flexibility Flexibility: Hamstring Flexibility, Hip Internal Rotation Flexibility, Hip External Rotation Flexibility R Hamstring Flexibility: 65 L Hamstring Flexibility: 65 R Hip Internal Rotation Flexibility: wnl L Hip Internal Rotation Flexibility: wnl R Hip External Rotation Flexibility: wnl L Hip External Rotation Flexibility: wnl LE Strength R Hip Flexion (L2): 4-/5 R Hip ABduction: 3+/5 R Hip Internal Rotation: 4/5 R Hip External Rotation: 4/5 R Knee Extension (L3): 4/5 L Hip Extension: 5/5 L Hip ABduction: 4-/5 L Hip Internal Rotation: 4/5 L Hip External Rotation: 4/5 L Knee Flexion: 4-/5 Gait Weight Bearing Status: FWB Gait: Independent Gait Device: None Gait Deviations: General Deviations General Deviations/Observations: Arm swing decreased, Antalgic gait, Mela decreased, Flexed trunk posture, Step length decreased Functional Performance Test Results 5 Times Sit to Stand Test : 24.9 sec Vitals BP: 99/51 Pulse: 80 Education: Education Learning Preferences: Demonstration, Explanation, Performance, Printed Materials Barriers: None Learning/educational needs: Plan of Care, Home exercise program Education Provided: Yes, see treatment interventions for education provided Education Provided To: Patient, Family Education Mode/Type: Demonstration, Explanation/Discussion, Literature/Printed Materials, Performance Response to Education/Teach Back: States/Identifies, Return Demonstration, Requires Review/Additional Education TREATMENT: Self-Jail Management: 1: * does not drink water during the day . Educated on drinking water. 2: pateint would like to f/u with PT in [place] 3: discussed need for trunk strengthening and general conditioning Skilled Intervention: Reviewed patient specific diagnosis in relation to activities of daily living/home management. Activity progression based on professional judgement. PT Treatment Interventions: Therapeutic Exercise, Self-Jail Management Evaluation Self-Jail Management: 1: * does not drink water during the day . Educated on drinking water. 2: pateint would like to f/u with PT in [place] 3: discussed need for trunk strengthening and general conditioning Skilled Intervention: Skilled judgment in the selection of proper modification for activity of daily living/home management based on clinical presentation, deficits, and needs. Provided written instruction for activities of daily living techniques to facilitate proper performance and compliance. Reviewed patient specific diagnosis in relation to activities of daily living/home management. Activity progression based on professional judgement. Billing * Evaluation Low Complexity: 1 Unit Self-Care/Home Management Treatment Minutes: 10 Skilled Treatment Time Minutes (timed and untimed codes): 37 Total Session Time (minutes): 37 Session Start Time : 1330 Session Stop Time : 1407 Rachele Santo PT documented in this encounterWilson Health08-20-2024 History of Present illness Narrative* Steve Wagoner MD - 11/29/2023 10:52 AM EDT Images from the original note were not included. Spine Care Path Radicular Leg Pain - Chronic (> 12 weeks) Initial Exam SUBJECTIVE HISTORY OF PRESENT ILLNESS: Hola Douglas is a 78 year old female who presents with a chief complaint of low back pain and is seen at patient request. present. H/o LSS (congenital and degenerative), scoliosis and diabetic neuropathy. R>L Low back that radiates into the R lateral thigh to the knee that is constant and varies in intensity. Pain hurts . Denies below the knee. Some of the R groin. Compression socks for low blood pressure. Numbness of the feet and hands and has neuropathy related to diabetes. PAIN EVALUATION 11/26/2023 0916 Pain Level: 4 Pain Location: Back-Lower Description: Radiating;Sharp Duration Amount of Time: 12 Duration Units: Months Frequency: Continuous Intervention/Comfort measure: Other: See comment Comments: Bio freeze helps for a while, repostionong sometimes help Aggravating Factors: not sure, worse in am at times and some times ok. Alleviating Factors: klonopin helps sleep. Pain Ratio: R LE>low back pain Prior Therapy: R SI joint injection, Dr. Oleary 09/19/2023-no benefit . B SI joint injection 06/08/2023-helped. Lumbar RFAB L4/5 and L5/S1 04/20/2023 which helped and continues to help PT in past-none recent Kursyxgnxxm-wcxcdckglz-kxwa not feeling helps much Patient Entered Questionnaires 11/26/2023 Spine Questions Pain Location: Lower back Pain Duration: 6 months - 1 year Pain over last 6 months: Every day or nearly every day in the past 6 months Symptoms from neck/cervical spine: No Employment Status: Retired Involved in law suit/legal claim: No 11/26/2023 Spine Red Flags Any type of cancer: No Unexplained fever: No Bowel or bladder disfunction: No Unintentional weight loss: No Osteoporosis: No PROMIS Score Percentiles 07/25/2023 11/26/2023 Physical Health Physical Function Percentile 8 8 Sleep Percentile 27* Fatigue Percentile 5 Pain Interference Percentile 8 11/26/2023 PROMIS SOCIAL ROLE SCORE Social Role Satisfaction Percentile 7 12/18/2022 07/25/2023 10/19/2023 PROMIS Global Health Scale Physical Health Percentile 31 22* 22* Mental Health Percentile 43 19* 19* Percentiles provide an indication of how the patient's score ranks in relation to the general population. Higher percentile rankings indicate better function/quality of life. 50th percentile is the average of the general population and indicates half of respondents had a worse score. Depression Screenin07/25/2023 09/08/2023 11/26/2023 PHQ-9 Score 3 4 9 07/25/2023 09/08/2023 11/26/2023 PHQ-9 Self-harm Question Question 9 Not at all Not at all Not at all PHQ-9 Self-Harm (Item 9) response options: 0 Not at all 1 Several days 2 More than half the days 3 Nearly every day PHQ-9 Levels: 0-4 No - mild depression 5-9 Mild depression 10-14 Moderate depression 15-19 Moderately severe depression 20-27 Severe depression ACTIVE PROBLEM LIST Nonspecific Abnormal Findings On Radiological Or Other Examinations of The Breast Localized Osteoarthrosis Not Specified Whether Primary Or Secondary, Hand Carpal Tunnel Syndrome Type 2 Diabetes Mellitus With Stage 3a Chronic Kidney Disease, Without Long-Term Current Use of Insulin (Hcc) Mixed Hyperlipidemia Bursitis of Hip Vitamin D Insufficiency Right Buttock Pain Pain in Right Hip Greater Trochanteric Bursitis of Right Hip Iron Deficiency Anemia, Unspecified 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 Dyspnea on exertion Fatigue Tinnitus, Right Ear Sensory Hearing Loss, Bilateral Restless Legs Syndrome Postmenopausal Status Mixed Anxiety Depressive Disorder Diverticulitis Cough Chronic Pain Bruises Easily Type 2 Diabetes Mellitus With Peripheral Neuropathy (Hcc) Elevated Ast (Sgot) Dizziness Abnormal Weight Gain PAST MEDICAL HISTORY No date: Carpal tunnel syndrome No date: Diverticulosis of colon (without mention of hemorrhage) No date: Hypotension No date: Localized osteoarthrosis not specified whether primary or secondary, hand No date: Mastodynia No date: Other chronic sinusitis No date: Type II or unspecified type diabetes mellitus without mention of complication, uncontrolled No date: Vertigo Comment: Current workup PAST SURGICAL HISTORY No date: ARTHROSCOPY KNEE DIAGNOSTIC W/WO SYNOVIAL BX SPX; Left Comment: Arthroscopy, knee 1998: BIOPSY BREAST OPEN INCISIONAL Comment: needle localization right breast 1996: BIOPSY BREAST OPEN INCISIONAL Comment: right breast No date: CARPAL TUNNEL Comment: right No date: LAPS ABD PRTM&OMENTUM DX W/WO SPEC BR/WA SPX Comment: Laparoscopy 1992: TOTAL ABDOMINAL HYSTERECT W/WO RMVL TUBE OVARY Social History Tobacco Use Smoking status: Never Smokeless tobacco: Never Vaping Use Vaping status: Never Used Substance Use Topics Alcohol use: Not Currently Drug use: No Comment: denies tx for drug/alcohol abuse in the past. FAMILY HISTORY Problem Relation Age of Onset Dementia Mother Coronary Artery Disease Father COPD Father No Known Problems Brother Dementia Brother No Known Problems Brother Ovarian cancer Maternal Grandmother Breast Cancer Other no known family h/o breast cancer ALLERGIES Allergen Reactions Asa [Salicylates] causes platelet disfunction Aspirin Unknown, Other: See Comments Levaquin [Levofloxa* Rash, Other: See Comments Per pt feels like she on fire Avelox [Moxifloxaci* Intolerance C/O burning feeling on skin CURRENT MEDICATIONS: semaglutide (OZEMPIC) 1 mg/dose (4 mg/3 mL) pen Inject 1 mg subcutaneously one time a week. rosuvastatin (CRESTOR) 5 mg tablet TAKE 1 TABLET BY MOUTH AT BEDTIME EVERY NIGHT gabapentin (NEURONTIN) 300 mg capsule Take 1 capsule by mouth two times a day AND 3 capsules daily at bedtime. Do all this for 90 days. blood sugar diagnostic (TRUE METRIX GLUCOSE TEST STRIP) test strip Use with blood glucose test oncedaily lancets (TRUEPLUS LANCETS) 33 gauge Use with blood glucose test once daily Blood-Glucose Meter (TRUE METRIX GLUCOSE METER) 1 Each once daily. fludrocortisone (FLORINEF) 0.1 mg tablet Take 1 tablet by mouth once daily. ergocalciferol 50,000 unit capsule (VITAMIN D2, DRISDOL) TAKE 1 CAPSULE ONE TIME WEEKLY clonazePAM (KLONOPIN) 0.5 mg tablet Take 1 tablet by mouth as needed. For restless leg syndrome loratadine (CLARITIN) 10 mg tablet Take 10 mg by mouth once daily. fluticasone (FLONASE) 50 mcg/actuation nasal spray Use 2 Sprays in each nostril twice daily. pen needle, diabetic (COMFORT EZ PEN NEEDLES) 33 gauge x 5/16 ndle To inject weekly esomeprazole (NEXIUM) 20 mg capsule Take 1 capsule by mouth DAILY (6 AM). MULTIVITAMIN (MULTI-DAY ORAL) Take by mouth once daily. calcium carbonate 600 mg-cholecalciferol 200 units (CALCIUM 600 + D,3,) 600 mg(1,500mg) -200 unit tab Take 1 tablet by mouth once daily. REVIEW OF SYSTEMS: See above OBJECTIVE: PHYSICAL EXAM BP 103/64 Pulse 80 Resp 18 Ht 172.7 cm (5' 8 ) SpO2 94% BMI 26.61 kg/m General: Pleasant individual in NAD Mental Status: Oriented to person place and time. Displays appropriate mood and affect. GAIT: Gait is slow and tilted Strength Testing: Bilateral upper and lower extremity strength is normal and symmetric except for Btriceps and biceps 4/5. No atrophy or tone abnormalities are noted. Neuro: Bilateral upper and lower extremity coordination and muscle stretch reflexes are decreased and symmetric. Plantar response are downgoing. Negative gamez's Peripheral Joint ROM: Peripheral joint ROM is full and pain free of the upper and LE Provocative Maneuvers: Shoulder, hip, sacroiliac provocative maneuvers are negative. Straight Leg Raising: Straight leg raising in the sitting and supine positions is negative to radicular pain. Palpation: Inspection and palpatory examination of the spine upper/lower extremities is unremarkable except for lumbar paraspinal tenderness and more to the R, scoliosis. Peripheral Vascular: LE compression stockings in place. Data Review: Lumbar MRI 2010- L2-L3: Minimal anterolisthesis finds the thecal sac. Posterior element shortening contributes to mild canal stenosis. Neural foramina remain patent. L3-L4: Posterior element shortening results in mild canal stenosis, without foraminal encroachment. L4-L5: Posterior element shortening results in mild canal stenosis, with mild bilateral foraminal encroachment. L5-S1: There is mild posterior disk protrusion, minimally asymmetric to the left. There is contact , without displacement of both S1 nerve roots within the anterior epidural fat. No thecal sac deformity is present. Neural foramina are patent. Sacrum and iliac wings: The visualized sacrum and iliac wings are within normal limits. The presacral soft tissues are normal in appearance. IMPRESSION: Developmental posterior element shortening with degenerative changes resulting in mild canal stenosis L2-3, L3-4 and L4-5. No significant foraminal encroachment at these levels. Small L5 disk protrusion contacts but does not displace S1 nerve roots within anterior epidural fat. ASSESSMENT/PLAN Lumbar stenosis-congenital and degenerative. Suspect upper lumbar radiculopathy contributing to theR LE pain. Scoliosis. Plan: Update lumbar MRI in setting of symptoms to better determine potential etiology. Patient notes ongoing pain despite medications and above injections. Of recent s/p SI joint injection in September w/o benefit. Pending review may consider upper lumbar ANGELA, does not appear has had completed. Lumbar x-ray to include R hip Cervical MRI also recommended on exam has B UE weakness-r/o radiculopathy or myelopathy Update spine PT as tolerated. None recent. On gabapentin. F/u: after imaging. Steve Wagoner MD The above plan and management options were discussed at length with patient. Patient is in agreement with the above and verbalized understanding. Patient instructed to call/seek urgent medical care with worsening of symptoms or change of neurological status. Patient provided with office contact. SIGNATURE: Steve Wagoner MD PATIENT NAME: Hola Douglas DATE: November 29, 2023 TIME: 10:52 AM documented in this encounterWilson Health08-05-2024 Telephone encounter Note * Telephone Encounter - Maryjo Bach - 11/14/2023 1:27 PM EDT Pt called and said that Farzana wanted her to come in for a new sensor on Tuesday (11/16/23) at noon. Pt stated she forgot that she had another appointment during that time and wanted to know if she could come sooner. Please adviseRemberto Barrett [facility]08-05-2024 Miscellaneous Notes* Telephone Encounter - Maryjo Bach - 11/14/2023 1:27 PM EDT Pt called and said that Farzana wanted her to come in for a new sensor on Tuesday (11/16/23) at noon. Pt stated she forgot that she had another appointment during that time and wanted to know if she could come sooner. Please advise. Nena documented in this encounterWilson Health08-02-2024 Telephone encounter Note * Telephone Encounter - Farzana Morrow RD - 11/11/2023 2:36 PM EDT Pt reports she and spouse are unable to twist-open a Primo 3 CGM sample provided by race and sports book writer at [facility] appt. Discussed briefly. 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 Farzana Morrow RD 11/11/2023 [facility] Work Phone: 1(510) 729-650408-02-2024 Miscellaneous Notes* Telephone Encounter - Farzana Morrow RD - 11/11/2023 2:36 PM EDT Pt reports she and spouse are unable to twist-open a Primo 3 CGM sample provided by race and sports book writer at [facility] appt. Discussed briefly. 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 Farzana Morrow RD 11/11/2023 documented in this encounterWilson Health08-02-2024 Telephone encounter Note * Telephone Encounter - Alma Delia Stout - 11/11/2023 12:46 PM EDT Patient called to ask for assistance with primo sensor [facility]08-02-2024 Miscellaneous Notes* Telephone Encounter - Alma Delia Stout - 11/11/2023 12:46 PM EDT Patient called to ask for assistance with primo sensor documented in this encounterWilson Health07-27-2024 History of Present illness Narrative* Karl Magaña RN - 11/05/2023 10:40 AM EDT Radiology Service Progress Note DATE OF SERVICE: November 05, 2023 TIME: 11:12 AM PATIENT WEIGHT: 175 lb LBS PATIENT IDENTITY VERIFICATION COMPLETED USING TWO (2) STANDARD IDENTIFIERS: Name and Date of confirmed by patient verbally. FALL SCREENING: Has the patient had 2 falls in the last year or 1 fall with injury or currently using an Ambulatory Assistive Device (Walker, Cane, Wheelchair, Crutches, etc.)? No PATIENT GENDER DATA: Female. status: : No status: NO. ALLERGIES: Reviewed and unchanged CONTRAST ALLERGY: No EXAM: MRI - CONTRAST TYPE: GROUP II IV SITE: Ambulatory: A peripheral IV was started in the Left antecubital site with a Angio cath: 22gauge. and A Saline lock was inserted per protocol IV SITE APPEARANCE: Clean,Dry and Intact SIGNATURE: Karl Magaña RN PATIENT NAME: Hola Douglas DATE: November 05, 2023 TIME: 11:12 AM * Zack Pichardo MRI Tech - 11/05/2023 10:40 AM EDT Radiology Service Progress Note PATIENT NAME: Hola Douglas DATE OF SERVICE: November 05, 2023 TIME: 11:47 AM PATIENT IDENTITY VERIFICATION COMPLETED USING TWO (2) IDENTIFIERS: Name and Date of confirmedby patient verbally and Name and Date of confirmed by identification band. FALL SCREENING: Has the patient had 2 falls in the last year or 1 fall with injury or currently using an Ambulatory Assistive Device (Walker, Cane, Wheelchair, Crutches, etc.)? No PATIENT GENDER DATA: Female. status: : No status: NO. PATIENT RELEVANT IMPLANT DATA REVIEWED: Yes PATIENT PRESENTS WITH AN IMPLANTABLE OR ATTACHED PUBLIC HEALTH DIETITIAN: No RADIOLOGY DEPARTMENT: MR; Exam(s) Completed: Head: Routine Brain PERIPHERAL IV DATA: Site assessment: Clean,Dry and Intact, Site disposition Discontinued SIGNED BY: GUILHERME Saenz, RT(R)(MR) November 05, 2023 11:47 AM documented in this encounterWilson Health07-27-2024 NoteHNO ID: [id number] Author: KARL MAGAÑA RN Service: Nursing Author Type: Registered Nurse Type: Progress Notes Filed: 11/05/2023 11:18 Note Text: Radiology Service Progress Note DATE OF SERVICE: November 05, 2023 TIME: 11:12 AM PATIENT WEIGHT: 175 lb LBS PATIENT IDENTITY VERIFICATION COMPLETED USING TWO (2) STANDARD IDENTIFIERS: Name and Date of confirmed by patient verbally. FALL SCREENING: Has the patient had 2 falls in the last year or 1 fall with injury or currently using an Ambulatory Assistive Device (Walker, Cane, Wheelchair, Crutches, etc.)? No PATIENT GENDER DATA: Female. status: : No status: NO. ALLERGIES: Reviewed and unchanged CONTRAST ALLERGY: No EXAM: MRI - CONTRAST TYPE: GROUP II IV SITE: Ambulatory: A peripheral IV was started in the Left antecubital site with a Angio cath: 22 gauge. and A Saline lock was inserted per protocol IV SITE APPEARANCE: Clean,Dry and Intact SIGNATURE: Karl Magaña RN PATIENT NAME: Hola Douglas DATE: November 05, 2023 TIME: 11:12 AMBr[facility] City [facility] HospitalDjgfehbw07-47-5811 NoteHNO ID: [id number] Author: ZACK PICHARDO MRI Tech Service: Radiology Author Type: Technologist Type: Progress Notes Filed: 11/05/2023 11:48 Note Text: Radiology Service Progress Note PATIENT NAME: Hola Douglas DATE OF SERVICE: November 05, 2023 TIME: 11:47 AM PATIENT IDENTITY VERIFICATION COMPLETED USING TWO (2) IDENTIFIERS: Name and Date of confirmed by patient verbally and Name and Date of confirmed by identification band. FALL SCREENING: Has the patient had 2 falls in the last year or 1 fall with injury or currently using an Ambulatory Assistive Device (Walker, Cane, Wheelchair, Crutches, etc.)? No PATIENT GENDER DATA: Female. status: : No status: NO. PATIENT RELEVANT IMPLANT DATA REVIEWED: Yes PATIENT PRESENTS WITH AN IMPLANTABLE OR ATTACHED PUBLIC HEALTH DIETITIAN: No RADIOLOGY DEPARTMENT: MR; Exam(s) Completed: Head: Routine Brain PERIPHERAL IV DATA: Site assessment: Clean,Dry and Intact, Site disposition Discontinued SIGNED BY: Zack Pichardo, flight inspector Diana Mccoy, RT(R)(MR) November 05, 2023 11:47 [facility] [id number] Telephone encounter Note* Telephone Encounter - Sheryl Garza APRN.CNP - 11/02/2023 8:33 AM EDT New order placed, thank you. Sheryl Garza APRN.CNP [facility]07-24-2024 Miscellaneous Notes* Telephone Encounter - Sheryl Garza APRN.CNP - 11/02/2023 8:33 AM EDT New order placed, thank you. Sheryl Garza APRN.CNP * Telephone Encounter - Humera Lubin - 11/02/2023 8:28 AM EDT Patient is coming in for an MRI on 11/04 and it looks like the order got discontinued for some reason. Can we get a new one placed ? MRI BRAIN WO/W IVCON Thank you in advance documented in this encounterWilson Health07-24-2024 Telephone encounter Note * Telephone Encounter - Humera Lubin - 11/02/2023 8:28 AM EDT Patient is coming in for an MRI on 11/04 and it looks like the order got discontinued for some reason. Can we get a new one placed ? MRI BRAIN WO/W IVCON Thank you in advance [facility]07-23-2024 Evaluation note* Diagnosis Type 2 diabetes mellitus with stage 3a chronic kidney disease, without long-term current use of insulin (HCC)- Primary 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athy (HCC) Mixed hyperlipidemia documented in this encounter [facility]07-17-2024 Instructions* Patient Instructions* Karl Cook APRN.CNP - 10/26/2023 4:49 PM EDT Continue Ozempic 1 mg once weekly Notify the office if you have frequent highs Test sometimes in the evening Follow up with Dr Oneill in January, see me in April documented in this encounterWilson Health07-17-2024 History of Present illness Narrative* Karl Cook APRN.CNP - 10/26/2023 4:30 PM EDT Endocrinology Follow-up I have communicated my name and active licensure. The patient's identity and physical location wereverified at the time of this visit. Either the patient or their legal physician relations representative has been informed of the risks and benefits of -- and alternatives to -- treatment through a remote evaluation andconsents to proceed with the evaluation remotely. History of Present Illness Hola Douglas is a 78 year old female presents today for follow up of DM Type 2. LV with Dr Oneill 06/23/23- Ozempic was increased She is tolerating. A1C has improved to 6.7% Would like to discuss starting SGLT2i PMH significant for: PAST MEDICAL HISTORY Diagnosis Date Carpal tunnel syndrome Diverticulosis of colon (without mention of hemorrhage) Hypotension Localized osteoarthrosis not specified whether primary or secondary, hand Mastodynia Other chronic sinusitis Type II or unspecified type diabetes mellitus without mention of complication, uncontrolled Vertigo Current workup Date of Diagnosis: age 61 Last HbA1c: Hemoglobin A1C (%) Date Value 10/06/2023 6.7 05/20/2023 7.0 12/21/2022 6.2 05/21/2022 6.4 11/11/2021 6.2 2021 6.7 10/24/2020 6.7 05/01/2020 6.4 10/18/2019 6.4 04/06/2019 6.3 Complications Microvascular: neuropathy, CKD stage 3 Macrovascular: none Diabetic Foot and Retinal Eye Exam not Overdue Physical Activity: limited Diet: no specific regimen; eats 3 meals per day SMBG Frequency of Monitoring:daily in the morning BG Values: 110-194 ; average is 134. Hypoglycemia Frequency: denies Current DM Related Medications: Current Medications 10/26/2023 DIABETES THERAPIES Medication Dosage Pharm Subclass semaglutide (OZEMPIC) 1 mg/dose (4 mg/3 mL) pen Inject 1 mg subcutaneously one time a week. Antihyperglycemic - Glucagon-Like Peptide-1 (GLP-1) Receptor Agonists CARDIOVASCULAR Medication Dosage Pharm Subclass rosuvastatin (CRESTOR) 5 mg tablet TAKE 1 TABLET BY MOUTH AT BEDTIME EVERY NIGHT Antihyperlipidemic- HMG CoA Reductase Inhibitors (statins) OTHER Medication Dosage Pharm Subclass blood sugar diagnostic (TRUE METRIX GLUCOSE TEST STRIP) test strip Use with blood glucose test oncedaily Medical Supplies and DME - Blood Glucose Tests Blood-Glucose Meter (TRUE METRIX GLUCOSE METER) 1 Each once daily. Medical Supplies and DME - Glucose Monitoring Test Supplies calcium carbonate 600 mg-cholecalciferol 200 units (CALCIUM 600 + D,3,) 600 mg(1,500mg) -200 unit tab Take 1 tablet by mouth once daily. Minerals and Electrolytes - Calcium Replacement/Vitamin D Combinations clonazePAM (KLONOPIN) 0.5 mg tablet Take 1 tablet by mouth as needed. For restless leg syndrome Antianxiety Agent - Benzodiazepines ergocalciferol 50,000 unit capsule (VITAMIN D2, DRISDOL) TAKE 1 CAPSULE ONE TIME WEEKLY Vitamins - D Derivatives esomeprazole (NEXIUM) 20 mg capsule Take 1 capsule by mouth DAILY (6 AM). Gastric Acid Secretion [employer] - Proton Pump Inhibitors (PPIs) fludrocortisone (FLORINEF) 0.1 mg tablet Take 1 tablet by mouth once daily. Mineralocorticoids fluticasone (FLONASE) 50 mcg/actuation nasal spray Use 2 Sprays in each nostril twice daily. Nasal Corticosteroids gabapentin (NEURONTIN) 300 mg capsule Take 1 capsule by mouth two times a day AND 3 capsules daily at bedtime. Do all this for 90 days. Anticonvulsant - VALENTIN Analogs lancets (TRUEPLUS LANCETS) 33 gauge Use with blood glucose test once daily Medical Supplies and DME- Glucose Monitoring Test Supplies loratadine (CLARITIN) 10 mg tablet Take 10 mg by mouth once daily. Antihistamines - 2nd Generation MULTIVITAMIN (MULTI-DAY ORAL) Take by mouth once daily. Multivitamins pen needle, diabetic (COMFORT EZ PEN NEEDLES) 33 gauge x 5/16 ndle To inject weekly Medical Supplies and DME - Insulin [place]-Syringes and Admin Supplies vortioxetine (TRINTELLIX) 5 mg tablet Take 5 mg by mouth once daily. Antidepressant - SSRI and Serotonin (5-HT) Receptor Modulator Past History, Medications, Allergies PAST SURGICAL HISTORY Procedure Laterality Date ARTHROSCOPY KNEE DIAGNOSTIC W/WO SYNOVIAL BX SPX Left Arthroscopy, knee BIOPSY BREAST OPEN INCISIONAL 1998 needle localization right breast BIOPSY BREAST OPEN INCISIONAL 1996 right breast CARPAL TUNNEL right LAPS ABD PRTM&OMENTUM DX W/WO SPEC BR/WA SPX Laparoscopy TOTAL ABDOMINAL HYSTERECT W/WO RMVL TUBE OVARY 1992 ALLERGIES Allergen Reactions Asa [Salicylates] causes platelet disfunction Aspirin Unknown, Other: See Comments Levaquin [Levofloxa* Rash, Other: See Comments Per pt feels like she on fire Avelox [Moxifloxaci* Intolerance C/O burning feeling on skin FAMILY HISTORY Problem Relation Age of Onset Dementia Mother Coronary Artery Disease Father COPD Father No Known Problems Brother Dementia Brother No Known Problems Brother Ovarian cancer Maternal Grandmother Breast Cancer Other no known family h/o breast cancer Social History Tobacco Use Smoking status: Never Smokeless tobacco: Never Vaping Use Vaping Use: Never used Substance Use Topics Alcohol use: Not Currently Drug use: No Comment: denies tx for drug/alcohol abuse in the past. Review of Systems Answers submitted by the patient for this visit: Core Review of Systems (Submitted on 10/19/2023) Fever : No Night sweats: No Recent unintentional weight change: No Nasal Congestion: No Hearing Loss: No Vision Disturbance: No A cough: No Difficulty Breathing?: No Irregular heartbeat: No Leg Swelling: No Nausea: No Diarrhea: No Black tarry stools: No Difficulty Urinating?: No Awaken at Night More Than Once to Urinate?: No Joint pain or stiffness: Yes Muscle aches: Yes Leg or Foot Discomfort a t Night?: Yes A rash: No Dizziness: Yes Headaches: No Memory Loss: No Seizures: No Physical examination GENERAL: Well nourished, well hydrated, in no distress and oriented x 3 COMMUNICATION: Hearing: normal; VOICE: normal EYES: no thyroid eye signs, Fundi normal and cornea normal. EOMI NECK: no visible nodules or goiter EXTREMITIES: No clubbing, no edema, no cyanosis and normal nails NEURO: normal strength, no tremor and normal reflexes SKIN: No rash or lesion Previous Laboratory Results LABS Glucose (mg/dL) Date Value 10/06/2023 119 07/26/2023 87 05/20/2023 166 2021 120 12/24/2020 111 10/24/2020 138 Potassium (mmol/L) Date Value 10/06/2023 4.6 2021 4.5 Sodium (mmol/L) Date Value 10/06/2023 142 07/26/2023 147 05/20/2023 144 2021 141 12/24/2020 141 10/24/2020 143 Chloride (mmol/L) Date Value 10/06/2023 105 07/26/2023 107 05/20/2023 107 2021 105 12/24/2020 104 10/24/2020 107 CO2 (mmol/L) Date Value 10/06/2023 29 07/26/2023 24 05/20/2023 26 2021 26 12/24/2020 26 10/24/2020 25 Creatinine (mg/dL) Date Value 10/06/2023 1.14 07/26/2023 1.05 05/20/2023 1.16 2021 1.08 12/24/2020 1.05 10/24/2020 1.00 BUN (mg/dL) Date Value 10/06/2023 18 07/26/2023 15 05/20/2023 14 2021 15 12/24/2020 14 10/24/2020 11 Anion Gap (mmol/L) Date Value 10/06/2023 8 07/26/2023 16 05/20/2023 11 2021 10 12/24/2020 11 10/24/2020 11 Calcium (mg/dL) Date Value 2021 9.5 12/24/2020 10.1 10/24/2020 9.0 Calcium, Total (mg/dL) Date Value 10/06/2023 9.7 07/26/2023 9.8 05/20/2023 9.9 eGFR- (no units) Date Value 2021 >60 12/24/2020 >60 10/24/2020 >60 eGFR-All Other Races (.) Date Value 2021 50 12/24/2020 51 10/24/2020 54 Estimated Glomerular Filtration Rate (mL/min/1.73m ) Date Value 10/06/2023 50 07/26/2023 55 05/20/2023 49 ALT (U/L) Date Value 10/06/2023 42 07/26/2023 44 05/20/2023 40 2021 52 12/24/2020 38 10/24/2020 27 TSH Date Value Ref Range Status 10/06/2023 4.320 (H) 0.270 - 4.200 mIU/L Final 07/26/2023 6.420 (H) 0.270 - 4.200 mIU/L Final 12/21/2022 3.790 0.270 - 4.200 mIU/L Final Free T4 Date Value Ref Range Status 10/06/2023 1.1 0.9 - 1.7 ng/dL Final 12/21/2022 1.0 0.9 - 1.7 ng/dL Final 10/06/2022 0.9 0.9 - 1.7 ng/dL Final Impression/Recommendations IMPRESSION Hola Douglas is a 78 year old here for evaluation of DM Type 2 complicated by hypertension, hyperlipidemia, nephropathy, and peripheral neuropathy A1C is at target, she reports higher readings at times. Discussed monitoring BGs in the evening as well. She has CKD, however she also has history of hypotension which she takes florinef for. SGLT2i may be contraindicated. Will discuss with Dr Oneill. ASSESSMENT/PLAN: 1. Type 2 diabetes mellitus with stage 3a chronic kidney disease, without long- term current use of insulin (HCC) - ICD9: 250.40, 585.3, ICD10: E11.22, N18.31 (primary diagnosis) - Controlled - Continue current medications - Blood glucose monitoring on a once daily schedule - Follow up in 3 months, sooner should any other issues arise. - eGFR: 50 Stable - Counseled on avoiding NSAIDs, adequate hydration - Counseled on low sodium diet 2. 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athy (HCC) - ICD9: 250.60, 357.2, ICD10: E11.42 - Controlled - Continue current medications 3. Mixed hyperlipidemia - ICD9: 272.2, ICD10: E78.2 - Controlled - Counseled on healthy diet and regular exercise RECOMMENDATIONS: 1. Glycemic control: Target HbA1C is less than 7.0% per ADA guidelines. She is due for A1C. BGs seem to be back in range with few outliers. Patient is inquiring about increasing Ozempic. Will assess A1C, discussed meeting with supply specialist as well. I have recommended patient follow up with Dr Lees or Neurology regarding her low BPs. We also discussed obtaining the labs that Dr Oneill had ordered- this includes ACTH and cortisol The patient was reminded to check their blood glucose as directed and to record the data in a logbook. This patient was advised to bring their logbook to each office visit. I recommended at least 150minutes per week of moderate physical activity, such as walking and to reduce carbohydrates and overall caloric intake. 2. Hypertension/BP control: BP goal for patients with diabetes is 130/80. 3. Lipids: Target LDL cholesterol in patients with diabetes is less than 100, less than 70 if patient has overt CVD. Several studies have shown cardiovascular benefits of statin therapy in all patients with diabetes over age 40 with at least 1 CVD risk factor. Cholesterol, Total Date Value Ref Range Status 05/20/2023 140 <200 mg/dL Final Comment: <200 mg/dL, Desirable 200-239 mg/dL, Borderline high >239 mg/dL, High HDL Cholesterol Date Value Ref Range Status 05/20/2023 41 >39 mg/dL Final Comment: 40-59 mg/dL, Acceptable >59 mg/dL, High: Negative risk factor for coronary heart disease <40 mg/dL, Low: Positive risk factor for coronary heart disease LDL Cholesterol Date Value Ref Range Status 05/20/2023 71 <100 mg/dL Final Comment: <100 mg/dL, Optimal 100-129 mg/dL, Near optimal/above optimal 130-159 mg/dL, Borderline high 160-189 mg/dL, High >189 mg/dL, Very high Secondary prevention optimal LDL Cholesterol levels are recommended to be < 70 mg/dL Triglyceride Date Value Ref Range Status 05/20/2023 142 <150 mg/dL Final Comment: <150 mg/dL, Normal 150-199 mg/dL, Borderline high 200-499 mg/dL, High >499 mg/dL, Very high -- This patient is on statin therapy. 4. Nephropathy screening: Annual measurement of urine albumin excretion is recommended in patients with diabetes. Albumin/Creat Ratio (mg/g) Date Value 10/06/2023 <8 2021 Not calculated Protein, Urine (mg/dL) Date Value 11/10/2018 30 (A) Creatinine, Ur Random (UCRR) (mg/dL) Date Value 10/06/2023 157.8 2021 151.7 -- This patient does not have microalbuminuria and is not on COREY-I or ARB therapy. 5. Ophthalmology: Annual dilated eye exams are recommended for patients with type 1 and type 2 diabetes. -- This patient is not up to date with their annual eye exam and was referred to an ophthalmologistat this visit. Patient to continue to follow up with his PCP and with other consultants regarding his other medical problems. Any part of this document that has been added/copied & pasted from other documents has been reviewed for accuracy and updated as appropriate at the time of the patient encounter I spent a total of 39 minutes on the date of the service which included preparing to see the patient, [id number] patient care, completing clinical documentation, obtaining and/or reviewing separately obtained history, performing a medically appropriate examination, counseling and educating the pat ient/family/caregiver, ordering medications, tests, or procedures, independently interpreting results (not separately reported), and communicating results to the patient/family/caregiver. Karl Cook APRN.JUAN ANTONIO documented in this encounterWilson Health07-12-2024 Evaluation + Plan note Extracted from:Title:Pain Managment Follow upAuthor:Quentin CLEMONS, AmandaDate: 10/21/23 Impression and Plan Patient is a 78-year-old female with a past medical history significant for sacroiliitis, lumbar spondylosis, lumbar stenosis and lumbar neuritis. Unfortunately, recent injection did not give her anysignificant relief and at this time, she does not feel like she wants to pursue any more. MRI was re viewed. We discussed different options. At this time, she is getting ready to see a spine surgeon she saw in the past. She is going to discuss her options with them. She is going to follow-up with her services as needed. She will let us know if she requires anything from our services. ERMELINDA score: 40%. Future Appointments Appointment Date:02/07/2024 01:00:00 PM Scheduled Provider:Ryan LIVE MD Location:[facility] Appointment Type:URO Office Visit [facility]06-28-2024 Telephone encounter Note* Telephone Encounter - Livia Calhoun MA - 10/07/2023 9:01 AM EDT Requester: Pharmacy Patients last Endocrinology visit occurred 06/23/2023 Follow-up evaluation has been established 10/26/2023. Requested Prescriptions Pending Prescriptions Disp Refills rosuvastatin (CRESTOR) 5 mg tablet [Pharmacy Med Name: rosuvastatin 5 mg tablet] 90 tablet 1 Sig: TAKE 1 TABLET BY MOUTH AT BEDTIME EVERY NIGHT If patient is due for an appointment please route to provider for refill consideration and also to the endo scheduling pool. PSS NOTE: Patient needs scheduled appointment No [facility]06-28-2024 Miscellaneous Notes* Telephone Encounter - Livia Calhoun MA - 10/07/2023 9:01 AM EDT Requester: Pharmacy Patients last Endocrinology visit occurred 06/23/2023 Follow-up evaluation has been established 10/26/2023. Requested Prescriptions Pending Prescriptions Disp Refills rosuvastatin (CRESTOR) 5 mg tablet [Pharmacy Med Name: rosuvastatin 5 mg tablet] 90 tablet 1 Sig: TAKE 1 TABLET BY MOUTH AT BEDTIME EVERY NIGHT If patient is due for an appointment please route to provider for refill consideration and also to the endo scheduling pool. PSS NOTE: Patient needs scheduled appointment No documented in this encounterWilson Health06-26-2024 History of Present illness Narrative* Farzana Morrow RD - 10/05/2023 11:00 AM EDT [facility] Medical Nutrition Therapy Visit Type: In-Person (Face to Face): Vivien DALEY Patient states reason for visit: Diabetes/ Abnormal weight gain Management Initial DEMOGRAPHICS: Co-Morbidities: PAST MEDICAL HISTORY Diagnosis Date Carpal tunnel syndrome Diverticulosis of colon (without mention of hemorrhage) Hypotension Localized osteoarthrosis not specified whether primary or secondary, hand Mastodynia Other chronic sinusitis Type II or unspecified type diabetes mellitus without mention of complication, uncontrolled Vertigo Current workup Activity: Do you do a regular exercise? Limited d/t low BP Symptoms: Patient's symptoms are as follows: Weight Concerns: weight gain and failure to lose weight How many hours of sleep on average? 7+ Diet History: Breakfast: cereal + 1% milk; 1 pieces bread or bagel + peanut butter Lunch: 1 piece bread + peanut butter + fruit + pretzels Snack: chocolate Dinner: spaghetti + beef + red sauce + sometimes salad (lettuce + cheese) Snack: chocolate Fluids: regular soda, water, Naldo flavored water, regular Gatorade ETOH: did not report Dining/eating out? 0-1 times per week Allergies: No Food Allergy Patient / Provider Comments: Pt reports dx T2DM in 2005. Pt reports strong family hx - father and several siblings. Pt reports desire to bring A1C further down to help with neuropathy symptoms - discussed in-depth. Pt reports she does not like most vegetables and drinks mostly regular soda daily - discussed and set goals accordingly. Medications: Current Outpatient Medications Medication Sig gabapentin (NEURONTIN) 300 mg capsule Take 1 capsule by mouth two times a day AND 3 capsules daily at bedtime. Do all this for 90 days. blood sugar diagnostic (TRUE METRIX GLUCOSE TEST STRIP) test strip Use with blood glucose test oncedaily lancets (TRUEPLUS LANCETS) 33 gauge Use with blood glucose test once daily vortioxetine (TRINTELLIX) 5 mg tablet Take 5 mg by mouth once daily. Blood-Glucose Meter (TRUE METRIX GLUCOSE METER) 1 Each once daily. fludrocortisone (FLORINEF) 0.1 mg tablet Take 1 tablet by mouth once daily. semaglutide (OZEMPIC) 1 mg/dose (4 mg/3 mL) pen Inject 1 mg subcutaneously one time a week. rosuvastatin (CRESTOR) 5 mg tablet Take 1 tablet by mouth daily at bedtime. ergocalciferol 50,000 unit capsule (VITAMIN D2, DRISDOL) TAKE 1 CAPSULE ONE TIME WEEKLY clonazePAM (KLONOPIN) 0.5 mg tablet Take 1 tablet by mouth as needed. For restless leg syndrome loratadine (CLARITIN) 10 mg tablet Take 10 mg by mouth once daily. fluticasone (FLONASE) 50 mcg/actuation nasal spray Use 2 Sprays in each nostril twice daily. pen needle, diabetic (COMFORT EZ PEN NEEDLES) 33 gauge x 5/16 ndle To inject weekly esomeprazole (NEXIUM) 20 mg capsule Take 1 capsule by mouth DAILY (6 AM). MULTIVITAMIN (MULTI-DAY ORAL) Take by mouth once daily. calcium carbonate 600 mg-cholecalciferol 200 units (CALCIUM 600 + D,3,) 600 mg(1,500mg) -200 unit tab Take 1 tablet by mouth once daily. No current facility-administered medications for this visit. Labs: Glucose (mg/dL) Date Value 07/26/2023 87 2021 120 Potassium (mmol/L) Date Value 07/26/2023 4.0 2021 4.5 Sodium (mmol/L) Date Value 07/26/2023 147 2021 141 Chloride (mmol/L) Date Value 07/26/2023 107 2021 105 CO2 (mmol/L) Date Value 07/26/2023 24 2021 26 Creatinine (mg/dL) Date Value 07/26/2023 1.05 2021 1.08 BUN (mg/dL) Date Value 07/26/2023 15 2021 15 Anion Gap (mmol/L) Date Value 07/26/2023 16 2021 10 Calcium (mg/dL) Date Value 2021 9.5 Calcium, Total (mg/dL) Date Value 07/26/2023 9.8 Lab Results Component Value Date HBA1C 7.0 05/20/2023 HBA1C 6.2 12/21/2022 HBA1C 6.4 05/21/2022 HBA1C 6.7 2021 HBA1C 6.7 10/24/2020 HBA1C 6.4 05/01/2020 Cholesterol, Total Date Value Ref Range Status 05/20/2023 140 <200 mg/dL Final Comment: <200 mg/dL, Desirable 200-239 mg/dL, Borderline high >239 mg/dL, High HDL Cholesterol Date Value Ref Range Status 05/20/2023 41 >39 mg/dL Final Comment: 40-59 mg/dL, Acceptable >59 mg/dL, High: Negative risk factor for coronary heart disease <40 mg/dL, Low: Positive risk factor for coronary heart disease LDL Cholesterol Date Value Ref Range Status 05/20/2023 71 <100 mg/dL Final Comment: <100 mg/dL, Optimal 100-129 mg/dL, Near optimal/above optimal 130-159 mg/dL, Borderline high 160-189 mg/dL, High >189 mg/dL, Very high Secondary prevention optimal LDL Cholesterol levels are recommended to be < 70 mg/dL Triglyceride Date Value Ref Range Status 05/20/2023 142 <150 mg/dL Final Comment: <150 mg/dL, Normal 150-199 mg/dL, Borderline high 200-499 mg/dL, High >499 mg/dL, Very high Glucose (mg/dL) Date Value 07/26/2023 87 2021 120 Potassium (mmol/L) Date Value 07/26/2023 4.0 2021 4.5 Sodium (mmol/L) Date Value 07/26/2023 147 2021 141 Chloride (mmol/L) Date Value 07/26/2023 107 2021 105 CO2 (mmol/L) Date Value 07/26/2023 24 2021 26 Creatinine (mg/dL) Date Value 07/26/2023 1.05 2021 1.08 BUN (mg/dL) Date Value 07/26/2023 15 2021 15 Anion Gap (mmol/L) Date Value 07/26/2023 16 2021 10 Calcium (mg/dL) Date Value 2021 9.5 Calcium, Total (mg/dL) Date Value 07/26/2023 9.8 Protein, Total (g/dL) Date Value 07/26/2023 6.8 2021 6.6 Albumin (g/dL) Date Value 07/26/2023 4.2 2021 4.2 Bilirubin, Total (mg/dL) Date Value 07/26/2023 0.2 2021 0.6 Alkaline Phosphatase (U/L) Date Value 07/26/2023 90 2021 109 AST (U/L) Date Value 07/26/2023 52 2021 36 ALT (U/L) Date Value 07/26/2023 44 2021 52 ANTHROPOMETRICS Height: Last 1 Encounter Ht Readings: Date: Ht: 08/03/2023 172.7 cm (5' 8 ) Current weight: Last 3 Encounter Wt Readings: Date: Wt: 08/03/2023 78.9 kg (174 lb) 07/26/2023 83 kg (183 lb) 06/23/2023 81.5 kg (179 lb 10.8 oz) BMI: 26.46 kg/(m^2) READINESS TO LEARN Cognitive ability: Alert and oriented Motivation to learn: Eager Family support: High - Very involved in pt care Instruction provided to: Patient and Spouse Patient learns best by: Multiple Methods Factors affecting learning: None Physical limitations affecting learning: None Stage of Change: Preparation Nutrition Diagnosis: Food and nutrition related knowledge deficit, related to; lack of prior exposure to information and prior exposure to incorrect information, as evidenced by verbalizes inaccurateinformation and verbalizes incomplete information Calories Needed for Current Weight: Resting Metabolic Rate: 1332 Nutrition Intervention: -Diabetes Pathophysiology: diabetes disease process, role of insulin in the body, role of glucose in the body, insulin resistance, Type 2 diabetes risk factors, diagnosis criteria, progression of Type 2 , and symptoms of diabetes -Monitoring: BG targets, A1c meaning and target <7%, and testing frequency -Healthy Eating: impact of carbs on BG, Plate Method, basic carb counting, foods with carbs, portion sizes, reading food labels, and healthy heart options -Medications: reviewed home DM meds -Physical Activity: benefits of exercise and impact of exercise on BG -Chronic Complications: LT complications and importance of BG control to reduce risks Nutrition Monitoring & Evaluation: Dietitian Goals: Maintained OR Improved Blood Glucose Control by next A1C test Criteria: A1C Patient Stated Goals at today's visit: Reduce regular soda/ sugar-sweetened Adherence Potential to Goals: Fair Need for Follow up: 01/04/24 @ 10-11AM in-person Referred by: Lorraine Oneill MD Emma Rueth, RD Consult Billing Type/Increments: Initial Assessment/15 minutes, 4 increment(s), 60 minutes Start time: 11:00AM End time: 12:00PM My final report will be communicated back to the requesting physician by way of shared medical record. Signed by: Farzana Morrow RD documented in this encounterWilson Health06-26-2024 Evaluation note* Diagnosis Type 2 diabetes mellitus with stage 3a chronic kidney disease, without long-term current use of insulin (HCC)- Primary Abnormal weight gain Overweight (BMI 25.0-29.9) Overweight documented in this encounter [facility]06-20-2024 Telephone encounter Note* Telephone Encounter - Lizett Wang RN - 09/29/2023 11:21 AM EDT Spoke with patient and advised her of below. [facility]06-20-2024 Miscellaneous Notes* Telephone Encounter - Lizett Wang RN - 09/29/2023 11:21 AM EDT Spoke with patient and advised her of below. * Telephone Encounter - Karl Cook APRN.CNP - 09/29/2023 10:51 AM EDT Labs placed- nonfasting + urine test * Telephone Encounter - Lucia Nguyen RN - 09/28/2023 3:24 PM EDT Pended labs if agreeable. * Telephone Encounter - Nikki Marmolejo - 09/28/2023 2:51 PM EDT Hola is calling Karl Cook APRN.CNP today to ask if she should have labs done prior to her appointment in October Please advise Patient has been identified by name and birthdate. Duration of symptoms: N/A Person calling: self Call patient at: at home [phone] (home) [phone] (cell) Was an appointment scheduled: No Closing statement: Results or non-symptom based questions: Thank you for calling [facility], your call will be returned within the next business day. Nikki Orona documented in this encounterWilson Health06-20-2024 Telephone encounter Note * Telephone Encounter - Karl Cook APRN.CNP - 09/29/2023 10:51 AM EDT Labs placed- nonfasting + urine test [facility] Work Phone: 1(782) 176-439306-19-2024 Telephone encounter Note* Telephone Encounter - Lucia Nguyen RN - 09/28/2023 3:24 PM EDT Pended labs if agreeable. [facility]06-19-2024 Telephone encounter Note* Telephone Encounter - Nikki Marmolejo - 09/28/2023 2:51 PM EDT Hola is calling Karl Cook APRN.ENVIRONMENTAL ENGINEER SCIENTIST today to ask if she should have labs done prior to her appointment in October Please advise Patient has been identified by name and birthdate. Duration of symptoms: N/A Person calling: self Call patient at: at home [phone] (home) [phone] (cell) Was an appointment scheduled: No Closing statement: Results or non-symptom based questions: Thank you for calling [facility], your call will be returned within the next business day. Nikki Orona [facility]06-10-2024 Miscellaneous Notes* Telephone Encounter - Rosa Roberto RN - 09/19/2023 4:51 PM EDT Last OV: 07/26/23 Last Refill: 07/29/23 FU OV: 12/15/23 Appropriate for refill routed to ES for review Gayle Roberto RN documented in this encounterWilson Health06-10-2024 Telephone encounter Note * Telephone Encounter - Rosa Roberto RN - 09/19/2023 4:51 PM EDT Last OV: 07/26/23 Last Refill: 07/29/23 FU OV: 12/15/23 Appropriate for refill routed to ES for review Gayle Roberto RN [facility] Work Phone: [phone] 190-929906-10-2024 Evaluation + Plan noteExtracted from:Title: Right diagnostic and therapeutic sacroiliac joint injectionAuthor:Anirudh Arroyo DODate:09/19/23 Diagnosis: M46.1, sacroiliit is Procedure: Right diagnostic and therapeutic sacroiliac Joint injection under fluoroscopic guidance Anesthesia: Local Complications: none After informed consent was obtained, the patient was brought back to the procedure room and placed in the prone position. Back areas prepped and draped in the usual sterile fashion using fluoroscopicguidance, the skin and subcutaneous tissues overlying the needle trajectory over the lower aspect of sacroiliac joint were anesthetized with 2% lidocaine. The 22-gauge Quincke needles were then introduced in the lower aspect of the sacroiliac joint. Injection of contrast under fluoroscopy revealed appropriate intra-articular spread with confirmation in at least 2 views. Thereafter, 2 mL of 0.5% bu pivacaine with 40 mg of methylprednisolone was injected into the sacroiliac joint. The needle was then removed. The patient tolerated procedure well. Patient was then transferred to the recovery roomin stable condition. Follow-up: The patient will update us on the response to this procedure, and agrees to continue currently prescribed/recommended therapies. Future Appointments Appointment Date:10/21/2023 01:00:00 PM Scheduled Provider:Kristie Saavedra PA-C Location:[facility] Appointment Type:Pain Management - Follow Up (FT) Appointment Date:02/07/2024 01:00:00 PM Scheduled Provider:Ryan LIVE MD Location:[facility] Appointment Type:URO Office Visit [facility]06-07-2024 Telephone encounter Note* Telephone Encounter - Lizett Wang RN - 09/16/2023 10:27 AM EDT Signed note and office notes faxed back. [facility]06-07-2024 Miscellaneous Notes* Telephone Encounter - Lizett Wang RN - 09/16/2023 10:27 AM EDT Signed note and office notes faxed back. * Telephone Encounter - Lizett Wang RN - 09/09/2023 11:20 AM EDT Fax from [facility], needing office notes and signature on form from Dr. Oneill. Placed in folder. documented in this encounterWilson Health06-04-2024 Instructions* Patient Instructions* Andres Rubio MD - 09/13/2023 12:01 PM EDT I do not see any evidence of Parkinson's disease or any related condition. I think it is more likely that the balance problems you are having (and mild eye movement abnormalities seen on exam) are most likely due to long-standing diabetes. I agree with having an MRI done, which has already been ordered for you. Please see me again in 6 months or so, and we can check on everything again. documented in this encounterWilson Health06-04-2024 History of Present illness Narrative* Andres Rubio MD - 09/13/2023 11:00 AM EDT [facility] - NEW PATIENT EVALUATION Referring Provider: Sheryl Garza [address] [place] [id number] Primary Care Provider: Erich Gillis, [address] [id number] Dear Sheryl Garza: Thank you for referring Ms. Douglas to our clinic today. As you know she is a 78 year old right-handed female who is seen in consultation for evaluation of orthostatic hypotension since 2020. diabetic since [address] Garza for an opinion regarding possible movement disorder. My final recommendations will be communicated back to the requesting physician by way of shared Medical record or letter to requesting physician via US mail. Subjective HISTORY OF PRESENT ILLNESS: She is referred by general neurology due to orthostatic hypotension (since 2020, in the setting of longstanding DM2 w/neuropathy) and reduced arm swing. She tells me she is here because she was told her eye movements and gait were off . She tells me she has right sciatic pain which affects her walking. She feels unsteady with her walking, but does not fall ([place]Has felt unsteady for about a year. Walking slower for past 6 months maybe. Her gait is also affected by orthostatic hypotension. Needs to get up slowly. Has fainted in the past, over a year ago. Sometimes even when seated may feel lightheaded. She has neuropathy in hands and feet. Has had DM since 2005. Hands sometimes numb. Hands feel stiff, but she can button a shirt without issue, cut food without issue. Handwriting is fine, no change. She writes large . She denies tremors. She does have RLS - aching in leg and frequently moves them around, worse at night, worse at rest, not necessarily relieved by walking around. Takes Klonopin 0.5 mg prn, a few times per week. Also takes gabapentin. Pertinent Neurologic ROS: Patient reports depress mood/anxiety: Recently started trintellix, maybe helping more than Citalopram reports impaired Memory/Cognitive: Rare word-finding difficulty denies hallucinations: (did when on Ambien) Patient reports sleep disturbances.Trouble falling asleep and staying asleep. Never tried melatonin denies REM behavioral disorder (RBD): Patient reports difficulties bowel/bladder control. Some constipation, takes prunes, or OTC medication. Takes daily stool softener denies Swallowing difficulties. reports Orthostatic hypotension symptoms. Sense of smell is intact Handwriting is unchanged, large she says Movement Disorders Medications Schedule - as of the start of the visit: Medications Trintellix Clonazepam 0.5 mg prn Gabapentin 300/300/900 Questionnaires In addition, the following areas that may be affected by abnormal involuntary movements were evaluated: Daily activities Difficulties with eatin (none) Difficulties in dressin (none) Difficulties with hygiene activities: 0 (none) Difficulties with handwritin (none) Difficulties with doing hobbies and other activities: 0 (none) Difficulties turning in bed: 0 (none) Difficulties getting out of bed, car or chair: 0 (none) Tremors/Gait/Balance Shaking or tremors: 0 (none) Walking and balance problems: 0 (none) Number of falls in the Last Month: 0 Gait freezin (none) Autonomic/Pain Lightheadeness on standing: Yes (mild) Urinary problems: Yes (slight) Constipation problems: Yes (slight) Pain and other sensations: Yes (severe) Speech/Swallowing Speech problems: 0 (none) Drooling: Yes (mild) Chewing and swallowing problems: 0 (none) Sleep/Fatigue Sleep problems: Daytime sleepiness: Yes (mild) Fatigue: Yes (mild) Mood/Behavior Depression: PHQ-9 Score: 4 usually representing no significant (0-4) depression. Anxiety: TRINITY-7 Total Score: 1 usually representing no significant (0-4) anxiety. Finally, the following table shows the patient's overall global physical and mental health using the PROMIS scale: PROMIS-10 Flowsheet Row Office Visit from 07/26/2023 in Neurology Office Visit from 12/23/2022 in Endocrinology Global Physical Health T Score 42.3 44.9 Global Mental Health T Score 41.1 48.3 0-10 Standard Pain Scale 4 4 *PROMIS-10 scoring scale: mean = 50, over 50 is above average, under 50 is below average Review of Systems ALLERGIES Allergen Reactions Asa [Salicylates] causes platelet disfunction Aspirin Unknown, Other: See Comments Levaquin [Levofloxa* Rash, Other: See Comments Per pt feels like she on fire Avelox [Moxifloxaci* Intolerance C/O burning feeling on skin Current Outpatient Medications Medication Sig vortioxetine (TRINTELLIX) 5 mg tablet Take 5 mg by mouth once daily. lancets (InteKrinTOUCH DELICA PLUS LANCET) 33 gauge Use as instructed to check blood sugar daily. blood sugar diagnostic (InteKrinTOUCH ULTRA TEST) test strip Use as instructed to check blood glucose daily. Blood-Glucose Meter (TRUE METRIX GLUCOSE METER) 1 Each once daily. fludrocortisone (FLORINEF) 0.1 mg tablet Take 1 tablet by mouth once daily. semaglutide (OZEMPIC) 1 mg/dose (4 mg/3 mL) pen Inject 1 mg subcutaneously one time a week. rosuvastatin (CRESTOR) 5 mg tablet Take 1 tablet by mouth daily at bedtime. Blood-Glucose Meter Use as directed to check BG daily. Dx: E11.49 not on insulin ergocalciferol 50,000 unit capsule (VITAMIN D2, DRISDOL) TAKE 1 CAPSULE ONE TIME WEEKLY clonazePAM (KLONOPIN) 0.5 mg tablet Take 1 tablet by mouth as needed. For restless leg syndrome loratadine (CLARITIN) 10 mg tablet Take 10 mg by mouth once daily. fluticasone (FLONASE) 50 mcg/actuation nasal spray Use 2 Sprays in each nostril twice daily. pen needle, diabetic (COMFORT EZ PEN NEEDLES) 33 gauge x 5/16 ndle To inject weekly esomeprazole (NEXIUM) 20 mg capsule Take 1 capsule by mouth DAILY (6 AM). MULTIVITAMIN (MULTI-DAY ORAL) Take by mouth once daily. calcium carbonate 600 mg-cholecalciferol 200 units (CALCIUM 600 + D,3,) 600 mg(1,500mg) -200 unit tab Take 1 tablet by mouth once daily. albuterol (PROVENTIL) 2.5 mg /3 mL (0.083 %) nebulizer solution as needed. amoxicillin (AMOXIL) 500 mg capsule TAKE 4 CAPSULES BY MOUTH ONE HOUR PRIOR TO DENTAL APPOINTMENT. gabapentin (NEURONTIN) 300 mg capsule Take 1 capsule by mouth two times a day AND 3 capsules daily at bedtime. Do all this for 30 days. citalopram (CELEXA) 20 mg tablet Take 20 mg by mouth once daily. (Patient not taking: Reported on 09/13/2023) No current facility-administered medications for this visit. Past Medical and Surgical History: has a past medical history of Carpal tunnel syndrome, Diverticulosis of colon (without mention of hemorrhage), Hypotension, Localized osteoarthrosis not specified whether primary or secondary, hand, Mastodynia, Other chronic sinusitis, Type II or unspecified type diabetes mellitus without mention of complication, uncontrolled, and Vertigo. has a past surgical history that includes biopsy breast open incisional (1998); biopsy breast open incisional (1996); total abdominal hysterect w/wo rmvl tube ovary (1992); carpal tunnel; laps abd prtm&omentum dx w/wo spec br/wa spx; and arthroscopy knee diagnostic w/wo synovial bx spx (Left). Social History Tobacco Use Smoking status: Never Smokeless tobacco: Never Vaping Use Vaping Use: Never used Substance Use Topics Alcohol use: Not Currently Drug use: No Comment: denies tx for drug/alcohol abuse in the past. 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 Many family members with diabetes Mother had dementia Objective Vital Signs: BP 111/66 (BP Site: Right Arm, BP Position: Sitting, BP Cuff Size: Regular Adult) Pulse 86 [id number]% Neurologic Exam: Mental Status: orientation to time, place, person. Good historian. No aphasia Able to spell APPLE forwards and backwards. Knows 7 quarters in $1.75. Cranial nerves: Pupils equal round and reactive to light. No visual field defects. EOMI. Mild choppiness of smooth pursuit. Mild saccadic hypometria (without overshoot). Normal facial sensation. Tongue protrudes midline Motor: No pronator drift. Power is 5/5 throughout. Sensation: Light touch intact in all 4 extremities. Vibration intact at knees bilaterally Reflexes: Normal 2+ reflexes at patellars bilaterally Coordination: Normal finger-to- nose-finger Gait: Stands without pushing herself up, though with mild difficulty. Gait is cautious, but good stride length and good heel-toe strike. Slight reduced arm swing on right. +Romberg. Movement exam: Normal tone No resting tremor No postural tremor Slight LUE kinetic tremor No bradykinesia Occasional fidgeting/restless movements of legs, sometimes seen ?slightly reduced blink rate EMG August 2023: Study Interpretation Extensive electrodiagnostic examination of the left lower including nerve conductions study and needle exam with additional studies of the right lower extremity reveals evidence of a generalized sensorimotor polyneuropathy, affecting the lower extremity, which is predominately axonal in type, and severe in degree electrically. This constellation of findings is nonspecific for etiologyand consistent with an axon loss polyneuropathy affecting lower extremity in length dependent pattern, as may be seen in metabolic, toxic, nutritional or hereditary causes. Chronic motor axonal loss changes are present in muscles distal to the knee bilaterally. There is no evidence of L3-S1 motor radiculopathy on the left nor L5/S1 on the right. Pure sensory radiculopathy can not be assessed with EMG test. Assessment and Plan: Assessment Ms. Douglas is a right-handed 78 year old year old female with orthostatic hypotension since 2020 whois referred due to concern for possible parkinsonian disorder. There is no hyposmia, no RBD, no micrographia, and no significant tremor. On exam there is no evidence of parkinsonism (no resting tremor, tone is normal, no bradykinesia). Smooth pursuit is choppy, and saccades are mildly hypometric, which are non-specific findings but frequently seen in SERGER small vessel ischemic disease. Recent EMG shows severe axonal polyneuropathy. Most likely her imbalance and orthostatic hypotension are secondary to neuropathy. Suspect small vessel ischemic disease may be contributing to eye movement abnormalities and gait disorder. At this point concern for neurodegenerative Parkinsonism is fairly low; though she can follow up again in 6 months or so to ensure no new symptoms or exam findings present themselves. The following are the current problems noted and addressed during this visit: Labile blood pressure Abnormal saccadic eye movement Pursuit movement deficiency Postural instability Plan 09/13/2023 Visit: - Low concern for neurodegenerative parkinsonism at this time. See discussion above. Agree with obtaining MRI brain (scheduled for next month). Can follow up in 6 months Time spent 60 min on the day of service, which included preparing to see the patient, [id number] patient care, completing clinical documentation, obtaining and/or reviewing separately obtained history, performing a medically appropriate examination, and counseling and educating the patient/family/ caregiver. Thank you for allowing me to be part of the clinical care of this patient! I look forward to continued participation in the patient s care with you. Please do not hesitate to call with any questions. Sincerely, Andres Rubio MD documented in this encounterWilson Health05-31-2024 Telephone encounter Note * Telephone Encounter - Lizett Wang RN - 09/09/2023 11:20 AM EDT Fax from [facility], [facility] office notes and signature on form from Dr. Oneill. Placed in folder. [facility]05-29-2024 Miscellaneous Notes* Telephone Encounter - Lizett Wang RN - 09/07/2023 2:04 PM EDT Patients last Endocrinology visit occurred Last encounter Visit on 06/23/2023 (with Lorraine Oneill) Follow-up evaluation has been established Upcoming Endocrinology Appointments - Next 365 Days Visit Type Date Time Department [facility] DIETITIAN VISIT 10/05/2023 11:00 AM ENDO DIAB ED [facility] EST [facility] PATIENT 10/26/2023 4:00 PM ENDO [facility] EST [facility] PATIENT 01/19/2024 3:00 PM ENDO [facility] . Requested Prescriptions Pending Prescriptions Disp Refills Blood-Glucose Meter (TRUE METRIX GLUCOSE METER) 1 Each 0 Si Each once daily. blood sugar diagnostic (TRUE METRIX GLUCOSE TEST STRIP) test strip 100 Strip 5 Sig: Use with blood glucose test once daily lancets (TRUEPLUS LANCETS) 33 gauge 100 Each 5 Sig: Use with blood glucose test once daily If patient is due for an appointment please route to provider for refill consideration and also to the endo scheduling pool. * Telephone Encounter - Shannon Moeller - 09/07/2023 1:28 PM EDT Hola is calling Lorraine Oneill MD today with concern regarding diabetic supplies. She states her insurance will no longer cover the brand that she has and is requesting a new meter (must be Trumeter) and lancets and test strips to go with it. She also needs doctors notes from last visit to [facility]. She does not have the fax number. Please disregard previous message for refills of lancets and test strips as she needs this new brand. Patient has been identified by name and birthdate. Person calling: self Call patient at: at home [phone] (home) [phone] (cell) Was an appointment scheduled: No Closing statement: Results or non-symptom based questions: Thank you for calling [facility], your call will be returned within the next business day. Shannon Moeller documented in this encounterWilson Health05-29-2024 Telephone encounter Note * Telephone Encounter - Lizett Wang RN - 09/07/2023 2:04 PM EDT Patients last Endocrinology visit occurred Last encounter Visit on 06/23/2023 (with Lorraine Oneill) Follow-up evaluation has been established Upcoming Endocrinology Appointments - Next 365 Days Visit Type Date Time Department SORAYA DIETITIAN VISIT 10/05/2023 11:00 AM ENDO DIAB ED [facility] EST [facility] PATIENT 10/26/2023 4:00 PM ENDO [facility] EST [facility] PATIENT 01/19/2024 3:00 PM ENDO [facility] . Requested Prescriptions Pending Prescriptions Disp Refills Blood-Glucose Meter (TRUE METRIX GLUCOSE METER) 1 Each 0 Si Each once daily. blood sugar diagnostic (TRUE METRIX GLUCOSE TEST STRIP) test strip 100 Strip 5 Sig: Use with blood glucose test once daily lancets (TRUEPLUS LANCETS) 33 gauge 100 Each 5 Sig: Use with blood glucose test once daily If patient is due for an appointment please route to provider for refill consideration and also to the endo scheduling pool. [facility]05-29-2024 Telephone encounter Note* Telephone Encounter - Lizett Wang RN - 09/07/2023 1:36 PM EDT Per patient please disregard she needs a new brand. [facility]05-29-2024 Miscellaneous Notes* Telephone Encounter - Lizett Wang RN - 09/07/2023 1:36 PM EDT Per patient please disregard she needs a new brand. documented in this encounterWilson Health05-29-2024 Telephone encounter Note * Telephone Encounter - Shannon Moeller - 09/07/2023 1:28 PM EDT Hola is calling Lorraine Oneill MD today with concern regarding diabetic supplies. She states her insurance will no longer cover the brand that she has and is requesting a new meter (must be Trumeter) and lancets and test strips to go with it. She also needs doctors notes from last visit to [facility]. She does not have the fax number. Please disregard previous message for refills of lancets and test strips as she needs this new brand. Patient has been identified by name and birthdate. Person calling: self Call patient at: at home [phone] (home) [phone] (cell) Was an appointment scheduled: No Closing statement: Results or non-symptom based questions: Thank you for calling [facility], your call will be returned within the next business day. Shannon Moeller [facility]05-22-2024 Evaluation note* Author Francisca Godwin [facility] HospitalAuthoredNvy 2023 2:14pmThe above note written by Francisca GOMEZ acting as human recorder, note dictated by Dr. Erich Gillis. [facility] Work Phone: [phone] 322-231405-16-2024 Telephone encounter Note* Telephone Encounter - Magalis Baldwin - 08/25/2023 3:56 PM EDT Contacted pt to advise that she's in the right place and we look forward to seeing her in September! She thanked me for the return call. [facility]05-16-2024 Miscellaneous Notes* Telephone Encounter - Magalis Baldwin - 08/25/2023 3:56 PM EDT Contacted pt to advise that she's in the right place and we look forward to seeing her in September! She thanked me for the return call. * Telephone Encounter - Andres Rubio MD - 08/25/2023 11:23 AM EDT Per referring physician's note: Some concern for possible MSA / central abnormality, will obtain MRI brain and movement consult. Sounds like they are concerned about possible MSA, so in that case being evaluated by movement disorders is appropriate. Thanks, Andres Rubio MD Movement Disorders Associate Staff [facility] * Telephone Encounter - Magalis Baldwin - 08/25/2023 10:11 AM EDT Pt phoned - she is scheduled in September with Dr. Rubio and wanted to make sure this is an appropriate appointment. Referral info in [facility]. Forwarding to [facility] to advise. [phone] documented in this encounterWilson Health05-16-2024 Telephone encounter Note * Telephone Encounter - Andres Rubio MD - 08/25/2023 11:23 AM EDT Per referring physician's note: Some concern for possible MSA / central abnormality, will obtain MRI brain and movement consult. Sounds like they are concerned about possible MSA, so in that case being evaluated by movement disorders is appropriate. Thanks, Andres Rubio MD Movement Disorders Associate Staff [facility] Work Phone: 1(756) 159-535105-16-2024 Telephone encounter Note* Telephone Encounter - Magalis Baldwin - 08/25/2023 10:11 AM EDT Pt phoned - she is scheduled in September with Dr. Rubio and wanted to make sure this is an appropriate appointment. Referral info in [facility]. Forwarding to [facility] to advise. [phone] [facility]05-15-2024 History of Present illness Narrative* Brian Marcelo MD - 08/24/2023 10:44 AM EDT UNIVERSAL PROTOCOL / SAFETY CHECKLIST Procedure to be Performed: EMG Sign In: A Moment of CARE was completed. Personnel directly involved with the procedure wore the appropriate PPE (Personal Protective Equipment). Patient/Surrogate Stated/Verified: PATIENT VERIFIED(optional for EMERGENT procedures): Patient name, Date of , Relevant allergies, and The intended procedure Time Out Communication: Intended patient and procedure match the source documents. Correct side/site marked and visible. Sign Out: Brian Marcelo MD SIGN OUT (optional for EMERGENT procedures): Post-procedure follow-up management communicated and Plan of Care Visit completed when applicable. ORACIO Lind. Brian Marcelo MD documented in this encounterWilson Health05-07-2024 Evaluation + Plan note Extracted from:Title:chronic painAuthor:Arroyo Oleary Manda.Date:08/16/23 Patient is presenting with c omplaints of 4-10 pain at present in her back and buttock as well as right lateral thigh to the level of the knee. This pain can be a 9 out of 10 when exacerbated such as standing walking twisting turning, bending and transitioning from seated to a standing position. When discussing this pain further she describes a sharp/stabbing sensation that worsens throughout the day and has not been relieved by anything she has tried thus far. This is exactly the same pain that she has had in the past with right-sided sacroiliitis, she feels that her sacroiliac joint is flared again. Additionally, she has pain over the lateral aspect of her hip/thigh area and has a point of specific tenderness with this. We also discussed her lumbar spondyloarthropathy however this is not acutely flared at this time. Will plan to work on her trochanteric region as well as her sacroiliac region on the right. ERMELINDA Score: 36% PHQ-2: 2 Patient denies any symptoms of progressively worsening upper/lower extremity weakness, progressively worsening gait abnormality, new onset bowel/bladder incontinence/ urinary retention, or saddle anesthesia. No new or worsening symptoms of fever, chills, night sweats. 14 Point Review of systems negative unless otherwise noted. General: No acute distress. Patient appears well-nourished. HEENT: Head is normocephalic and external ears are normal in appearance. Cardiovascular: No signs of poor perfusion and no peripheral edema Pulmonary: Nonlabored breathing, symmetric chest movement. GI: Abdomen nondistended Integumentary: No lesions Musculoskeletal: Tender to palpation lumbar paraspinal musculature and over the right sacroiliac joint as well as over the right trochanteric bursa. Neurologic: Alert, oriented x3. 5/5 strength grossly in the bilateral lower extremities. Sensation intact to light touch in the bilateral lower extremities. Special Testing: Negative Dwight sign bilaterally. Positive LUISF and Gaenslen's reproducing sacroiliac joint pain, positive lumbosacral spring and compression test reproducing sacroiliac joint pain, thigh thrust and sacral thrust also reproduced sacroiliac joint pain. Laterality of positive SI Joint Testing: Right. 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 -Sacroiliitis, flared on the right -Right trochanteric bursitis Plan: -We lengthy discussion about her current symptoms we discussed performing a right-sided sacroiliac joint injection under fluoroscopic guidance that she has had these in the past with excellent relief, we also discussed starting physician directed exercises targeting her right trochanteric bursitis,if this pain persist despite exercise and therapy we can consider an in office injection -Plan to follow-up 1 month postinjection or sooner if any issues arise Patient was counseled on the above diagnosis and treatment, all questions were answered and patientagrees to adhere to the plan above. Risk and benefits of appropriate procedures and medications were reviewed as well with patient, who voiced understanding and agreeance. Patient was counseled on appropriate use of opioids if prescribed or renewed today and naloxone was offered to patient if opioids were prescribed or maintained at this visit. PHQ-2 scoring reviewed with patient and discussed seeking treatment for depression or mood disorder as appropriate. Patient was counseled on smoking cessation and/or continuing to abstain from nicotine/tobacco products as appropriate based on history; as smoking/nicotine can contribute to increased pain overall and decreased wound healing. Patient counseled on maintaining a healthy BMI as part of the total treatment of their pain and to reduce stress/strain on joints. Patient invited to return or call with any questions or concerns that arise. Future Appointments Appointment Date:02/07/2024 01:00:00 PM Scheduled Provider:Ryan LIVE MD Location:[facility] Appointment Type:URO Office Visit [facility]04-24-2024 History of Present illness Narrative* Da King MD - 08/03/2023 12:50 PM EDT Images from the original note were not included. [facility] [place] [facility] Department of Cardiovascular Medicine SECTION OF CARDIOVASCULAR IMAGING OUTPATIENT VISIT DATE 08/03/23 OUTPATIENT VISIT TYPE ESTABLISHED PRIMARY CARE PHYSICIAN: Erich Gillis DO [address] [place] [phone] CHIEF COMPLAINT: CV health management visit. HISTORY OF PRESENT ILLNESS: Ms. Douglas is a 77 year old female who presents today for a cardiovascular medicine follow-up visit.She has a past medical history significant for POTS, DM2, HTN, and HLD. Following with neurology. Has still issues with neuropathy. On gabapentin. Today, Mrs. Douglas reports that she has been feeling tired, but has had no new cardiac symptoms. From a cardiovascular perspective, pt continues to do well and specifically denies any CP, SOB, palpitations, syncope, orthopnea, LE edema, focal neuro sx, post-prandial abdominal pain, or claudication. PAST CARDIAC HISTORY: SEE HPI PAST MEDICAL HISTORY Diagnosis Date Carpal tunnel syndrome Diverticulosis of colon (without mention of hemorrhage) Hypotension Localized osteoarthrosis not specified whether primary or secondary, hand Mastodynia Other chronic sinusitis Type II or unspecified type diabetes mellitus without mention of complication, uncontrolled Vertigo Current workup PAST SURGICAL HISTORY Procedure Laterality Date ARTHROSCOPY KNEE DIAGNOSTIC W/WO SYNOVIAL BX SPX Left Arthroscopy, knee BIOPSY BREAST OPEN INCISIONAL 1998 needle localization right breast BIOPSY BREAST OPEN INCISIONAL 1996 right breast CARPAL TUNNEL right LAPS ABD PRTM&OMENTUM DX W/WO SPEC BR/WA SPX Laparoscopy TOTAL ABDOMINAL HYSTERECT W/WO RMVL TUBE OVARY 1992 SOCIAL HISTORY Social History Tobacco Use Smoking status: Never Smokeless tobacco: Never Vaping Use Vaping Use: Never used Substance Use Topics Alcohol use: Not Currently Drug use: No Comment: denies tx for drug/alcohol abuse in the past. ALLERGIES: ALLERGIES Allergen Reactions Asa [Salicylates] causes platelet disfunction Aspirin Unknown, Other: See Comments Levaquin [Levofloxa* Rash, Other: See Comments Per pt feels like she on fire Avelox [Moxifloxaci* Intolerance C/O burning feeling on skin MEDICATIONS: albuterol (PROVENTIL) 2.5 mg /3 mL (0.083 %) nebulizer solution as needed. amoxicillin (AMOXIL) 500 mg capsule TAKE 4 CAPSULES BY MOUTH ONE HOUR PRIOR TO DENTAL APPOINTMENT. gabapentin (NEURONTIN) 300 mg capsule Take 1 capsule by mouth two times a day AND 3 capsules daily at bedtime. Do all this for 30 days. semaglutide (OZEMPIC) 1 mg/dose (4 mg/3 mL) pen Inject 1 mg subcutaneously one time a week. blood sugar diagnostic (BLOOD GLUCOSE TEST) test strip Use as instructed to check blood glucose daily. Dx: E11.49 not on insulin Lancets lancets Use as instructed to check blood sugar daily. Dx: E11.49 not on insulin rosuvastatin (CRESTOR) 5 mg tablet Take 1 tablet by mouth daily at bedtime. Blood-Glucose Meter Use as directed to check BG daily. Dx: E11.49 not on insulin ergocalciferol 50,000 unit capsule (VITAMIN D2, DRISDOL) TAKE 1 CAPSULE ONE TIME WEEKLY citalopram (CELEXA) 20 mg tablet Take 20 mg by mouth once daily. fludrocortisone (FLORINEF) 0.1 mg tablet Take 0.5 tablets by mouth once daily. clonazePAM (KLONOPIN) 0.5 mg tablet Take 1 tablet by mouth as needed. For restless leg syndrome loratadine (CLARITIN) 10 mg tablet Take 10 mg by mouth once daily. fluticasone (FLONASE) 50 mcg/actuation nasal spray Use 2 Sprays in each nostril twice daily. pen needle, diabetic (COMFORT EZ PEN NEEDLES) 33 gauge x 5/16 ndle To inject weekly esomeprazole (NEXIUM) 20 mg capsule Take 1 capsule by mouth DAILY (6 AM). MULTIVITAMIN (MULTI-DAY ORAL) Take by mouth once daily. calcium carbonate 600 mg-cholecalciferol 200 units (CALCIUM 600 + D,3,) 600 mg(1,500mg) -200 unit tab Take 1 tablet by mouth once daily. REVIEW OF SYSTEMS: POSITIVES IN BOLD GENERAL: Negative for: Weight loss or gain, Fever or Chills, Weakness and Sleep difficulties. HEENT: Negative for: Headache, Impaired Vision, Glasses, Hearing Impairment, Ringing in Ears, Nosebleeds, Poor dental care, Bleeding Gums, Dentures NECK: Negative for: Swelling, Pain, Stiffness CARDIOVASCULAR: SEE HPI RESPIRATORY: Negative for: Cough, Blood in Sputum, Shortness of breath, Wheezing, Apnea GASTROINTESTINAL: Negative for: Trouble swallowing, Heartburn, Change in bowel habits, Blood in stool, Dark black stools MUSCULOSKELETAL: Negative for: Muscle or joint pain, Stiffness, Joint swelling NEUROLOGIC/PSYCHIATRIC: Negative for: Weakness, Paralysis, Numbness, Tingling, Tremor, Nervousness,Depressed mood, Memory loss SKIN: Negative for: Rashes, Itching HEMATOLOGICAL/LYMPHATIC: Negative for: Easy bruising , Easy bleeding ENDOCRINE: Negative for: Heat or cold intolerance, Excessive sweating, Frequent urination, Frequentthirst PHYSICAL EXAMINATION: POSITIVES IN BOLD BP 104/60 Pulse 74 Resp 12 Ht 172.7 cm (5' 8 ) Wt 78.9 kg (174 lb) SpO2 98% BMI 26.46 kg/m General: Well appearing, in no acute distress. Skin: No clubbing, no cyanosis. Eyes: Extra ocular movements intact Oropharynx: Teeth in good repair. Neck: No jugular venous distention, no carotid bruits, carotids have a normal upstroke, no palpablethyromegaly. Lungs: Clear to auscultation bilaterally, no wheezing or rhonchi. Heart: Regular rhythm, PMI not displaced, S1, S2 normal, no S3, no S4, no heaves, no rub and no murmur. Abdomen: Soft, nontender, bowel sounds normal, no palpable organomegaly, no bruits. Extremities: No peripheral edema . Grade 2/4 distal pulses bilaterally. Neuro: Oriented to person, place and time, alert, cooperative, gait coordinated. CARDIOVASCULAR MEDICINE TESTING: Electrocardiogram: Diagnosis: NORMAL SINUS RHYTHM I have personally reviewed the Electrocardiogram and labs Latest Ref Rng 05/20/2023 Cholesterol, Total <200 mg/dL 140 Triglyceride <150 mg/dL 142 HDL Cholesterol >39 mg/dL 41 Non HDL Cholesterol <130 mg/dL 99 Fasting Time hrs 12 VLDL Cholesterol <30 mg/dL 28 TC:HDL Ratio <5.10 3.41 LDL Cholesterol <100 mg/dL 71 LDL:HDL Ratio <2.54 1.73 IMPRESSION: Ms. Douglas is a 77 year old female who has a past medical history significant for POTS, DM2, HTN, and HLD. # Hypotension/orthostatic hypotension - BP today 108/64 -stable with fludrocortisone and compression stockings # Dizziness/unsteadiness - recurring - No changes in symptoms #lipids -well controlled PLAN AND RECOMMENDATIONS: - Continue current medical regimen - RTC in 12 months I personally interviewed, confirmed and edited the above information if obtained by others. CONTACT INFORMATION: Da King M.D., [facility] Section Head, Cardiovascular Imaging [facility] Department of Cardiovascular Medicine Heart and Vascular [facility] Desk [address] [place] [address] Office - [phone] extension [phone] Office Appointments: [phone] extension [phone] documented in this encounterWilson Health04-19-2024 Miscellaneous Notes* Telephone Encounter - Sheryl Garza APRN.CNP - 07/29/2023 10:59 AM EDT Gabapentin adjusted to 300 mg AM, 300 mg afternoon, 900 mg PM. Calculated Creatinine clearance of 51, dosage not to exceed 1,800 mg per UptoDate guidelines. Sheryl Garza APRN.CNP * Telephone Encounter - Rosa Roberto RN - 07/29/2023 9:05 AM EDT Patient states that pain management would like Sheryl to manage neuropathy. Gayle Roberto RN, BSN documented in this encounterWilson Health04-16-2024 Instructions* Patient Instructions* Sheryl Garza APRN.CNP - 07/26/2023 4:38 PM EDT 1) Labs 2) Agree with repeat EPS tilt 3) Ambulatory BP monitor -Closely record symptoms and BP medications 4) EMG 5) MRI Brain w/ w/o 6) Consult to movement disorders 7) Follow up with pain mangement for leg / back pain documented in this encounterWilson Health04-16-2024 History of Present illness Narrative* Sheryl Garza APRN.CNP - 07/26/2023 3:30 PM EDT Images from the original note were not included. [facility] Follow-Up/Established Patient Visit Chief Complaint/Issues: Hola Douglas is a 78 year old handed right-handed female seen in the [facility] for: Follow up Labile BP Brief HPI /Most Recent Department Assessment and Plan: Seen by myself most recently for initial evaluation 10/22/2021: Hola Douglas is a 76 year old here today for initial evaluation. She has relevant history of DM2,carpal tunnel syndrome, restless leg syndrome. She has symptoms of low blood pressure, she thinks starting about 1 year ago. She can often have SBP as low as 70s mmHg. She has a long standing history of poorly controlled DM2, and reports she has had diabetic neuropathy since ~2009. She can have episodes of syncope (most recently 1 week ago), where she feels weak, tired, and lightheaded. She can usually lower herself to the ground. Upon waking she does not feel confused, but is lethargic. No symptoms concerning for seizure (denies incontinence, mouth maceration, myalgias). No prodrome or post- ictal. This is consistent with hypotensive syncope. Her orthostatic VS are borderline for orthostatic hypotension today in the office with systolic decrease of 19 mmHg before the patient needed to sit down. She also reports dizziness which occurs when bending or turning head. This is described as an imbalanced feeling. This dizziness is most likely vertigo, and unrelated to episodes of hypotension. She is currently not drinking enough fluid and not exercising. We discussed the role of dehydrationand deconditioning in orthostatic conditions. 1. Vestibular PT 2. Fasting labs 3. Orthostatic VS Current management of orthostatic condition: Conservative Measures: -Increased water intake (2-2.5 liters of water daily) -Increased salt intake (3-5 grams daily) -Compression stockings -Light progressive exercise --- Today, July 26, 2023: Since last visit, her BP has been dropping for no reason. Reports sometimes while seated she feels unwell, and BP is 70/50 mmHg (without activity). Sometimes elevating the legs helps but not always. She does not typically feel the BP dropping while supine, but can occur rarely. Does not seem to follow a pattern. She is taking fludrocortisone 0.1 mg daily as of now. No passing out recently, but sometimes feels like she could pass out while standing. She has pre-syncopal symptoms of nausea and lightheadedness even while seated. Sometimes happens while standing. Reports neuropathy in her feet feels overall worse. She notices increased pain and numbness, pain goes into the posterior calf on both sides, but gets numbness in feet and hands bilaterally. She reports she has been having pain on the lateral R leg running down the side. Can feel sharp andaching. No groin pain. Does get lower back pain. She sees pain management at [facility] and had a radiofrequency ablation which has helped, but not with the hip pain: Plan Impression and Plan Patient is a 78-year-old female. She has a past medical history significant for lumbar spondylosis and sacroiliitis. Patient underwent bilateral sacroiliac joint injections done on 06/08/2023 that gave her 100% relief. Prior to that she underwent right-sided facet RFA that gave her at least 50% relief. She is at this time, she is doing well. She is feeling well. She is comfortable. She is happy. She is able to do the things she wants to do. She did have a recent dog bite and has her right arm wrapped and she is on antibiotics for the dog bite. At this time she is going to follow-up with her services as needed. She will let us know should she require anything from our services She has done PT for the back as well. Hgb A1C is up a little bit, was on steroids and antibiotic (had a bad dog bite). She does struggle with chronic constipation. She is scheduled to repeat her tilt in November. Hydration is better, she is forcing herself to drink water. She wears knee high stockings. She tried thigh highs and felt they roll down. PMH PAST MEDICAL HISTORY Diagnosis Date Carpal tunnel syndrome Diverticulosis of colon (without mention of hemorrhage) Hypotension Localized osteoarthrosis not specified whether primary or secondary, hand Mastodynia Other chronic sinusitis Type II or unspecified type diabetes mellitus without mention of complication, uncontrolled Vertigo Current workup PAST SURGICAL HISTORY Procedure Laterality Date ARTHROSCOPY KNEE DIAGNOSTIC W/WO SYNOVIAL BX SPX Left Arthroscopy, knee BIOPSY BREAST OPEN INCISIONAL 1998 needle localization right breast BIOPSY BREAST OPEN INCISIONAL 1996 right breast CARPAL TUNNEL right LAPS ABD PRTM&OMENTUM DX W/WO SPEC BR/WA SPX Laparoscopy TOTAL ABDOMINAL HYSTERECT W/WO RMVL TUBE OVARY 1992 ALLERGIES Allergen Reactions Asa [Salicylates] causes platelet disfunction Aspirin Unknown, Other: See Comments Levaquin [Levofloxa* Rash, Other: See Comments Per pt feels like she on fire Avelox [Moxifloxaci* Intolerance C/O burning feeling on skin Social History Tobacco Use Smoking status: Never Smokeless tobacco: Never Vaping Use Vaping Use: Never used Substance Use Topics Alcohol use: Not Currently Drug use: No Comment: denies tx for drug/alcohol abuse in the past. FAMILY HISTORY Problem Relation Age of Onset Dementia Mother Coronary Artery Disease Father COPD Father Breast Cancer Other no known family h/o breast cancer Cancer Other maternal grandmother with h/o ovarian cancer Current management of orthostatic condition Conservative Measures: Increased water intake (2-2.5 liters of water daily) Increased salt intake (3-5 grams daily) Compression stockings Progressive exercise Shared medical appointment with Dr. Cuco Sepulveda head of bed Continue with mental health care Medications Current Outpatient Medications on File Prior to Visit Medication Sig semaglutide (OZEMPIC) 1 mg/dose (4 mg/3 mL) pen Inject 1 mg subcutaneously one time a week. blood sugar diagnostic (BLOOD GLUCOSE TEST) test strip Use as instructed to check blood glucose daily. Dx: E11.49 not on insulin Lancets lancets Use as instructed to check blood sugar daily. Dx: E11.49 not on insulin rosuvastatin (CRESTOR) 5 mg tablet Take 1 tablet by mouth daily at bedtime. gabapentin (NEURONTIN) 300 mg capsule TAKE 3 CAPSULES DAILY AT BEDTIME Blood-Glucose Meter Use as directed to check BG daily. Dx: E11.49 not on insulin ergocalciferol 50,000 unit capsule (VITAMIN D2, DRISDOL) TAKE 1 CAPSULE ONE TIME WEEKLY citalopram (CELEXA) 20 mg tablet Take 20 mg by mouth once daily. fludrocortisone (FLORINEF) 0.1 mg tablet Take 0.5 tablets by mouth once daily. clonazePAM (KLONOPIN) 0.5 mg tablet Take 1 tablet by mouth as needed. For restless leg syndrome loratadine (CLARITIN) 10 mg tablet Take 10 mg by mouth once daily. fluticasone (FLONASE) 50 mcg/actuation nasal spray Use 2 Sprays in each nostril twice daily. pen needle, diabetic (COMFORT EZ PEN NEEDLES) 33 gauge x 5/16 ndle To inject weekly esomeprazole (NEXIUM) 20 mg capsule Take 1 capsule by mouth DAILY (6 AM). MULTIVITAMIN (MULTI-DAY ORAL) Take by mouth once daily. calcium carbonate 600 mg-cholecalciferol 200 units (CALCIUM 600 + D,3,) 600 mg(1,500mg) -200 unit tab Take 1 tablet by mouth once daily. No current facility-administered medications on file prior to visit. Relevant Work Up To Date Labs: Component Ref Range & Units 2 mo ago (05/20/23) 7 mo ago (12/21/22) 1 yr ago (05/21/22) 1 yr ago (11/11/21) 2 yr ago (05/13/21) 2 yr ago (10/24/20) 3 yr ago (05/01/20) Hemoglobin A1C 4.3 - 5.6 % 7.0 High 6.2 High CM 6.4 High CM 6.2 High CM 6.7 High CM 6.7 High CM 6.4 High CM --- Echo 07/18/2023 CONCLUSIONS: - Exam indication: Abnormal BP - The left ventricle is normal in size. Left ventricular systolic function is normal. EF = 68 5% (2D biplane) Normal left ventricular diastolic function. - The right ventricle is normal in size. Right ventricular systolic function is normal. - Tricuspid aortic valve, better visualized on prior echocardiogram. - Exam was compared with the prior echocardiographic exam performed on 12/24/2020. Mild AR seen today. --- Neuro Autonomic Reflex W/O 09/16/2021 Heart rate response to deep breathing is normal via the mean heart rate range and the E:I ratio. Heart rate response to the Valsalva maneuver, as assessed by the Valsalva ratio, is reduced but the blood pressure responses to phase II and phase IV of the maneuver are intact. This is an abnormal cardiovascular autonomic test panel due to a reduced Valsalva ratio. This finding is nonspecific but is consistent with a cardiovagal abnormality. However, other tests of cardiovagal function, the heart rate response to deep breathing via the mean heart rate range method and E:Iratio are normal. There is no evidence of a significant cardiovascular adrenergic abnormality. --- QSART 09/16/2021 QSART responses at the left forearm, proximal leg, distal leg , and foot are normal. There is no evidence of a significant postganglionic sympathetic sudomotor abnormality like that seen in autonomic/small fiber neuropathy. --- EPS Tilt 09/16/2021 * FINAL IMPRESSIONS * - The test was completed per protocol at 45 minutes of 70 degree tilt. - Systolic blood pressures remained stable from 115 mmHg at start to 122 mmHg at end of tilt. - Diastolic blood pressures oscillated from 63 mmHg at start to 54 mmHg at end of tilt. - Blood pressure upon return to supine position was 133/47 mmHg. - Heart rates increased from 70 bpm at start to 97 bpm at end of tilt. - Heart rate upon return to supine position was 66 bpm. - ECGs showed: sinus, baseline QTc 465, infrequent PVC; no diagnostic ST changes - Patient signs/symptoms included: DIZZINESS, HOT, PAIN, SEE NOTE, SOB, VISION CHANGES. - Overall: The test is negative for syncope. --- EPS TILT 01/17/2018 * FINAL IMPRESSIONS * - The test was stopped early at 34 out of 45 minutes of 70 degree tilt due to extensive symptoms nausea weakness and lightheadedness at patient's request. - Systolic blood pressures decreased from 131 mmHg at start to 112 mmHg at end of tilt. - Diastolic blood pressures decreased from 78 mmHg at start to 59 mmHg at end of tilt. - Blood pressure upon return to supine position was 141/70 mmHg. - Heart rates increased from 78 bpm at start to 107 bpm at end of tilt. - Heart rate upon return to supine position was 83 bpm. - ECGs showed: normal sinus rhythm with myocardial changes but no arrhythmias, and QT prolongation at baseline, repeat tilt and recovery. - Patient signs/symptoms included: HOT, LIGHTHEADED, LIGHTHEADEDNESS, NAUSEA, SEE NOTE. - Overall: The test is diagnostic for accentuated postural tachycardia. The test is diagnostic for orthostatic hypotension. --- Cardiac Event Monitor 12/24/2020-01/07/2021 Patient had a min HR of 56 bpm, max HR of 167 bpm, and avg HR of 79 bpm. Predominant underlying rhythm was Sinus Rhythm. 6 Supraventricular Tachycardia runs occurred, the run with the fastest interval lasting 4 beats with a max rate of 167 bpm, the longest lasting 16 beats with an avg rate of 137 bpm. Isolated SVEs were rare (<1.0%), SVE Couplets were rare (<1.0%), and SVE Triplets were rare (<1.0%). Isolated VEs were rare (<1.0%), VE Couplets were rare (<1.0%), and no VE Triplets were present. Patient triggered events / symptom notations correlated with sinus rhythm, sinus tachycardia --- ECHO 12/24/2020 CONCLUSIONS: - Exam indication: Hypertensive heart disease - The left ventricle is normal in size. Left ventricular systolic function is normal. EF = 69 5% (2D 4-ch.) - The right ventricle is normal in size. Right ventricular systolic function is normal. -No significant valvular abnormalities noted on the study - Exam was compared with the prior echocardiographic exam performed on 12/29/2017. No significantchange. --- General Examination: BP 122/61 (BP Site: Left Arm, BP Position: Sitting, BP Cuff Size: Regular Adult) Pulse 88 Ht 172.7 cm (5' 8 ) Wt 83 kg (183 lb) SpO2 94% BMI 27.83 kg/m 07/26/23 1533 07/26/23 1611 07/26/23 1612 07/26/23 1613 BP: 122/61 Orthostatic BP: 122/63 105/61 123/63 BP Site: Left Arm BP Position: Sitting Supine Standing Standing BP Cuff Size: Regular Adult Pulse: 88 Orthostatic Pulse: 78 83 87 SpO2: 94% Weight: 83 kg (183 lb) Height: 172.7 cm (5' 8 ) Neurological Examination: Cognition The patient is alert and oriented. Lucid and organized in conversation. Able to provide detailed medical hx. Speech Speech is normal in fluency, volume, and clarity. No dysarthria. Content and syntax are coherent. Comprehension: Able to follow several step commands. Cranial Nerves PERRLA No ptosis. Visual roberson are full to confrontation. +Hypermetric saccaddes to the L and midline Endpoint nystagmus to L Jerky pursuits throughout Facial motor exam is strong and symmetric. Equal sensation of trigeminal nerve - V1,V2, and V3. Soft palate elevation is symmetric, tongue is in midline, no tongue fasciculation. Neck range of motion is full. Trapezius Strength is symmetric, graded 5/5. Tone and Bulk Tone and bulk is normal and preserved bilaterally of arms. Tone and bulk is normal and preserved bilaterally of legs. No apparent muscle atrophy. No pes cavus or hammer toes. Strength Right Left Shoulder Abduction 5/5 5/5 Elbow Flexion 5/5 5/5 Elbow Extension 5/5 5/5 Wrist Flexion 5/5 5/5 Wrist Extension 5/5 5/5 Finger Extension 5/5 5/5 Finger Flexion 5/5 5/5 Finger Abduction 5/5 5/5 Hip Flexion 5/5 5/5 Hip Adduction 5/5 5/5 Hip Abduction 5/5 5/5 Knee Flexion 5/5 4/5 Knee Extension 5/5 4/5 Ankle Dorsiflexion 5/5 5/5 Ankle Plantarflexion 5/5 5/5 Movement/Coordination Finger-to- nose-finger and [id number] intact bilaterally. No evidence of ataxia arms. No limb dysmetria of arms and legs. Rapid alternating movements of pronation and supination, finger and hand tapping intact. No rigidity, cog wheeling, or bradykinesia. Action tremor L hand only No extrapyramidal findings or dystonia. Sensation Reduced temperature LLE laterally below knee, entire L foot RLE reduced pinprick laterally and entire foot, LLE below knee to toes LLE reduced vibration at toe and ankle LLE reduced proprioception Reflexes Right Left Bicep 04/14 04/14 Tricep 04/14 04/14 Brachioradialis 04/14 04/14 Patella 04/14 04/14 Ankle 04/14 04/14 No Clonus. Negative Babinski (toes curl down). Gamez sign - deferred due to severity of arthritis pain Gait Able to stand without upper body assistance. Some postural instability while seated. Slowed gait Reduced arm swing R arm. Romberg's sign is positive falls backwards. Subjective Patient-Entered Data: Autonomic Screening COMPASS-31 Past Scores No data to display NM Treatment and Fall Risk PROMIS-10 07/25/2023 12/18/2022 PROMIS 10 Health, in general Good Good Quality of life, in general Good Good Physical health, in general Good Good Mental health, in general Good Very good Social activities satisfaction Fair Very good Performing ADL's Moderately Mostly Social role satisfaction Fair Good Pain, on average 3 3 Fatigue, on average Moderate Moderate Emotional problems Sometimes Sometimes PHYSICAL Score 42.3 (Good) 44.9 (Good) MENTAL Score 41.1 (Good) 48.3 (Very Good) PHQ-9 07/25/2023 01/28/2022 PHQ-9 All Questions Little interest or pleasure in doing things 0 0 Feeling down, depressed, or hopeless 0 1 Trouble falling or staying asleep, or sleeping too much 1 2 Feeling tired or having little energy 2 2 Poor appetite or overeating 0 0 Feeling bad about yourself - or that you are a failure or have let yourself or your family down 0 0 Trouble concentrating on things, such as reading the newspaper or watching television 0 0 Moving or speaking so slowly that other people could have noticed. Or the opposite - being so fidgety or restless that you have been moving around a lot more than usual 0 0 Thoughts that you would be better off , or of hurting yourself in some way 0 0 PHQ-9 Score 3 5 5 (0-4) minimal depression (5-9) mild depression (10-14) moderate depression (15-19) moderately severe depression (20-27) severe depression TRINITY-7 07/25/2023 TRINITY-7 All Questions Not being able to stop or control worrying Not at all Worrying too much about different things Not at all Being so restless that it is hard to sit still Not at all Becoming easily annoyed or irritable Several days Feeling afraid, as if something awful might happen Not at all (0-5) mild anxiety (6-10) moderate anxiety (11-15) moderately severe anxiety (16-21) severe anxiety Sleep 05/19/2022 11/05/2020 -- Snore Loudly No No Tired, fatigued or sleepy in daytime Yes Yes Stop breathing or choking/gasping during sleep No No High blood pressure No No Probability of moderate-severe sleep apnea (%) SAPS V2 31 (Sleep study not recommended) 32.22 (Sleep study not recommended) No data to display Assessment & Plan 07/26/2023 - Neuromuscular, Sheryl Garza APRN.ENVIRONMENTAL ENGINEER SCIENTIST ASSESSMENT Hola Douglas is a 78 year old here today for follow up. Hola Douglas has a has a past medical history of Carpal tunnel syndrome, Diverticulosis, DM 2, Mastodynia, Restless leg syndrome, and Vertigo. Seen initially for onset of symptoms ~2020, at which time she developed hypotension. She has a longstanding history of poorly controlled DM2, and reports issues with diabetic neuropathy since ~2009. Reported occasional episodes of LOC preceded by feeling weak, tired, and lightheaded, able to lowerto the ground. No seizure signs. Orthostatic vitals in the office at initial appointment demonstrating maximum SBP reduction 19 mmHg. And heart rate increase 18 bpm. EPS tilt in 2017 demonstrating blood pressures meeting criteria for mild POTS vs OH (maximum heart rate increase of 29 bpm and SBP reduction of 21 mmHg both at [id number] of tiltm at which time testing was terminated due to symptoms). EPS tilt in 2021 with relativelystable BPs (maximum decrease SBP 12 mmHg, which recovered), with some tachycardia (maximum HR increase 35 bpm at minute 39). Most recent Echo 07/2023 demonstrating mild AR but otherwise WNL. Also reported dizziness and imbalance with bending, turning head. Vestibular PT ordered for vertigo. We discuss main concerns today: 1) Hypotension -Reports hypotension both while standing and seated. -On fludrocortisone 0.1 mg daily. -She had EPS tilt ordered to repeat by saida Shah for 11/2023. -Will add ambulatory BP monitor. 2) Lumbar symptoms -Following with local pain management for lumbar spondylosis. -Does have sensory disturbance and LLE weakness disproportionate to R today, which does not clearlyfollow dermatome. Will obtain EMG for probably radiculopathy vs asymmetry of neuropathy. 3) Neuropathic pain -Recently worsened Hgb A1C, sees PCP and endocrinology. -I will take over gabapentin management if she discusses with Pain management. 4) Other exam abnormalities -Abnormal eye movements are new today (jerky pursuits, hypermetric saccades, end point nystagmus). Some reduced arm swing is new as well. -Some concern for possible MSA / central abnormality, will obtain MRI brain and movement consult. PLAN 1) Labs 2) Agree with repeat EPS tilt 3) Ambulatory BP monitor -Closely record symptoms and BP medications 4) EMG 5) MRI Brain w/ w/o 6) Consult to movement disorders 7) Follow up with pain mangement for leg / back pain Return After tilt / testing. My impression and recommendations were discussed at length with the patient (and family members, ifpresent). The patient and family (if present) voiced understanding to my recommendations. All questions were answered. Medication side effects discussed as applicable. The patient was provided with adetailed after visit summary highlighting my impression and recommendations. I spent a total of 45 minutes on the date of the service which included preparing to see the patient, fnvj-qf-ywvy patient care, completing clinical documentation, obtaining and/or reviewing separately obtained history, performing a medically appropriate examination, counseling and educating the pat ient/family/caregiver, and ordering medications, tests, or procedures. Sheryl Garza APRN.[facility] General Neurology [address] [place] [address]. [id number] Appointment: [phone] During our face to face clinical encounter we discussed my concerns neurologically in terms of diagnosis, impact on health and activities of living, and addressed questions. I tried to reassure the patient and also address questions. I explained to the patient to call if any questions, to review res ults, and I want to see them return for neurological follow up as mychart as next steps of communication is agreed upon Patient verbalizes understanding and I have addressed concerns and questions at this visit Patient has my contacts, educational material provided, and my chart sign up. After visit summary discussed. 1. This office note has been dictated and may contain minor typographic errors that escaped review. 2. The nursing staff and medical assistants are a major part of YOUR TREATMENT TEAM and will be handling your phone calls and inquiries, if any. Unless explicitly told otherwise at the time of your office visit, your study results and ensuing treatment plans will be discussed during your follow-up appointment. If you do not have a follow-up appointment and wish to discuss any issues directly withme, please feel free to obtain one. 3. It is my practice to not fill disability or any other insurance-related forms/documention. All of the office notes, study results, and other pertinent documentation generated as part of your evaluation will be available to you and to your Primary Care Physician (PCP). Use of this material to complete such forms will be at the discretion of your PCP/referring physician documented in this encounterWilson Health04-16-2024 Hospital Discharge instructions Patient Education 07/26/2023 09:15:59 Urethral Dilation Urethral Dilation Urethral dilation is a procedure to stretch open (dilate) the urethra. The urethra is the tube thatdrains urine from the bladder out of the body. In women, the urethra opens above the vaginal opening. In men, the urethra opens at the tip of the penis. Urethral dilation is usually done to treat narrowing of the urethra (urethral stricture), which can make it difficult to pass urine. Urethral dilation widens the urethra so that you can pass urine normally. Urethral dilation is done through the urethral opening. There are no incisions made during the procedure. Tell a health care provider about: Any allergies you have. All medicines you are taking, including vitamins, herbs, eye drops, creams, and ngns-cmb-mhjhyay medicines. Any problems you or family members have had with anesthetic medicines. Any blood disorders you have. Any surgeries you have had. Any medical conditions you have. Whether you are or may be . What are the risks? Generally, this is a safe procedure. However, problems may occur, including: Bleeding. Infection. A return of urethral stricture, which requires repeating the dilation procedure. Damage to the urethra, which may require reconstructive surgery. Allergic reactions to medicines. What happens before the procedure? Medicines Ask your health care provider about: Changing or stopping your regular medicines. This is especially important if you are taking diabetes medicines or blood thinners. Taking medicines such as aspirin and ibuprofen. These medicines can thin your blood. Do not take these medicines unless your health care provider tells you to take them. Taking fqwu-zwi-qqlntbe medicines, vitamins, herbs, and supplements. General instructions Follow instructions from your health care provider about eating or drinking restrictions. Plan to have someone take you home from the hospital or clinic. If you will be going home right after the procedure, plan to have someone with you for 24 hours. Ask your health care provider what steps will be taken to help prevent infection. These may include: ?Washing skin with a germ-killing soap. ?Taking antibiotic medicine. What happens during the procedure? An IV may be inserted into one of your veins. You will be given one or more of the following medicines: ?A local anesthetic to numb your urethral opening. This will be applied as a gel that will also lubricate the urethral opening. ?A sedative to help you relax. A thin tube with a light and camera on the end (cystoscope) will be inserted into your urethra. Your urethra will be rinsed (irrigated) with a germ-free (sterile) water solution. Narrow parts of your urethra will be stretched open using a dilator tool. Your surgeon will start with a very thin dilator, then use wider dilators as needed. A thin tube with an inflatable balloon on the tip may be inserted into your urethra. The balloon may be inflated to help stretch your urethra open. Your urethra will be irrigated. The procedure may vary among health care providers and hospitals. What can I expect after the procedure? After the procedure, it is common to have: ?Burning pain when urinating. ?Blood in your urine. ?A need to urinate frequently. You will be asked to urinate before you leave the hospital or clinic. Your urine flow should improve within a few days. Follow these instructions at home: Medicines Take vszz-uia-uavttop and prescription medicines only as told by your health care provider. If you were prescribed an antibiotic medicine, take it as told by your health care provider. Do notstop taking the antibiotic even if you start to feel better. Ask your health care provider if the medicine prescribed to you: ?Requires you to avoid driving or using heavy machinery. ?Can cause constipation. You may need to take these actions to prevent or treat constipation: ?Take jzfj-nea-nhgsdcu or prescription medicines. ?Eat foods that are high in fiber, such as beans, whole grains, and fresh fruits and vegetables. ?Limit foods that are high in fat and processed sugars, such as fried or sweet foods. General instructions Do not drive for 24 hours if you were given a sedative during your procedure. If you were sent home with a small, lubricated tube (catheter) to help keep your urethra open, follow your health care provider's instructions about how and when to use it. Drink enough fluid to keep your urine pale yellow. Return to your normal activities as told by your health care provider. Ask your health care provider what activities are safe for you. Keep all follow-up visits as told by your health care provider. This is important. Contact a health care provider if: Your urine is cloudy and smells bad. You develop new bleeding when you urinate. You pass blood clots when you urinate. You have pain that does not get better with medicine. You have a fever. You have swelling, bruising, or discoloration of your genital area. This includes the penis, scrotum, and inner thighs for men, and the outer genital organs (vulva) and inner thighs for women. Get help right away if: You develop new bleeding that does not stop. You cannot pass urine. Summary Urethral dilation is a procedure to stretch open (dilate) the urethra. Urethral dilation is usually done to treat narrowing of the urethra (urethral stricture), which canmake it difficult to pass urine. Ask your health care provider about changing or stopping your regular medicines before the procedure. After the procedure, it is common to have burning pain when urinating, blood in your urine, and a need to urinate frequently. This information is not intended to replace advice given to you by your health care provider. Make sure you discuss any questions you have with your health care provider. Document Revised: 05/10/2019 Document Reviewed: 05/10/2019 [employer] Patient Education 2022 [employer]. Follow Up Care 02/08/2023 11:20:09 With:HIRO BRICENO, Ryan Holland, URL Address: [address] [address]- When: Unknown Comments:6 mos for IO [facility] [id number] Miscellaneous Notes* Telephone Encounter - Norma Ferreira, Research Coordinator - 07/05/2023 9:10 AM EDT Messaged patient about research study opportunity. documented in this encounterWilson Health03-15-2024 Evaluation + Plan note Extracted from:Title:Pain Managment Follow upAuthor:Quentin CLEMONS, AmandaDate: 06/24/23 Impression and Plan Patient is a 78-year-old female. She has a past medical history significant for lumbar spondylosis and sacroiliitis. Patient underwent bilateral sacroiliac joint injections done on 06/08/2023 that gave her 100% relief. Prior to that she underwent right-sided facet RFA that gave her at least 50% relief. She is at this time, she is doing well. She is feeling well. She is comfortable. She is happy. She is able to do the things she wants to do. She did have a recent dog bite and has her right arm wrapped and she is on antibiotics for the dog bite. At this time she is going to follow-up with her services as needed. She will let us know should she require anything from our services ERMELINDA score: 16% Future Appointments Appointment Date:07/26/2023 08:45:00 AM Scheduled Provider:Ryan LIVE MD Location:[facility] Appointment Type:URO Office Visit [facility]03-14-2024 Instructions* Patient Instructions* Lorraine Oneill MD - 06/23/2023 3:16 PM EDT Latest Ref Rng 05/20/2023 Protein, Total 6.3 - 8.0 g/dL 6.9 Albumin 3.9 - 4.9 g/dL 4.2 Calcium 8.5 - 10.2 mg/dL 9.9 Bilirubin, Total 0.2 - 1.3 mg/dL 0.5 Alkaline Phosphatase 34 - 123 U/L 96 AST 13 - 35 U/L 37 (H) ALT 7 - 38 U/L 40 (H) Glucose 74 - 99 mg/dL 166 (H) BUN 7 - 21 mg/dL 14 Creatinine 0.58 - 0.96 mg/dL 1.16 (H) Sodium 136 - 144 mmol/L 144 Potassium 3.7 - 5.1 mmol/L 3.8 Chloride 97 - 105 mmol/L 107 (H) CO2 22 - 30 mmol/L 26 Anion Gap 9 - 18 mmol/L 11 eGFR >=60 mL/min/1.73m 49 (L) Cholesterol, Total <200 mg/dL 140 Triglyceride <150 mg/dL 142 HDL Cholesterol >39 mg/dL 41 Non HDL Cholesterol <130 mg/dL 99 Fasting Time hrs 12 VLDL Cholesterol <30 mg/dL 28 TC:HDL Ratio <5.10 3.41 LDL Cholesterol <100 mg/dL 71 LDL:HDL Ratio <2.54 1.73 Creatinine, Ur Random (UCRR) 20.0 - 300.0 mg/dL 158.8 Albumin, Urine Random mg/L <12.0 Albumin/Creat Ratio <30 mg/g <8 Hemoglobin A1C 4.3 - 5.6 % 7.0 (H) Estimated Average Glucose mg/dL 154 ACTH 7.2 - 63.3 pg/mL 20.3 Cortisol 4.8 - 19.5 ug/dL 9.8 Legend: (H) High (L) Low documented in this encounterWilson Health03-14-2024 History of Present illness Narrative* Lorraine Oneill MD - 06/23/2023 2:41 PM EDT [facility] Endocrinology Department Today's Visit Information Reason for Visit: Diabetes Visit Type: Follow Up - Consultation Chief Complaint: Other CC Other: Routine follow up. Patient had a dog bite of right hand 5 days ago. She is now on antibiotics. Patient also had additional steroid treatments for sinusitis, last about 6 weeks ago. Also, about 6 weeks ago, she had a spinal injection (likely steroids). She noted some worsening of glucose levels. Average 14 days blood glucose is 129 mg/dl (0.6 reading per day) Range of glucose levels is between 108 to 152 mg/dl Monitoring frequency is now less, it is difficult to do after having the dog bite. Diabetes History Patient age (years) when first diagnosed with Diabetes: 61 Diabetes Type: DM Type 2 Diabetes Related Complications: Microvascular Microvascular Complications: Neuropathy, Nephropathy Neuropathy Details: Peripheral Nephropathy Details: CKD - Stage 3 Related Comorbidities: Hyperlipidemia, Other - Specify DM meds previously tried and discontinued: Metformin Specify Reason(s) for discontinuation: diarrrhea Insulin Treatment was: Never used Nutrition/Diet Summary Patient Current Diet: No specific diet regimen, Other - Specify Specify Diet: She did not consult with dietitian. Number of Meals per day: Three, Other - Specify Number of meals - Specify: Appetite for the past 5 days. Number of Snacks per day/week: Per Day - Specify Number of snacks per day - Specify: 2 Exercise Summary Patient exercise routine: Not Exercising/exercise activity limited Blood Glucose (BG) Monitoring Monitoring Frequency: Per week - Specify Weekly Monitoring - Specify: 3-4 Blood Glucose Summary/Pattern CGM Summary Patient Uses Personal CGM: No Current issues with Glycemic Control Primary problem(s) patient has with glycemic control include(s): Hyperglycemia, Other - Specify Primary problem(s) - Specify: mild AM hyperglycemia, she is monitoring fasting glucose only. A1c is 7% (worsening from previous). Dilated Retinal Exam Dilated Retinal Exam: Other - Specify Dilated Retinal Exam - Specify: About one year ago, she is scheduled for repeat exam next week. Pertinent ROS Patient reports Neuropathic pain: Yes Neuropathic pain details: Numbness, Tingling (Comment: mild. She has some pain in left great toe) Patient reports Polyuria: No Patient reports Nocturia: Yes Nocturia details (per night): 2 Patient reports Polydipsia: No Weight loss/gain: Non Intentional weight gain (Comment: 10 lb over 2 years.) Current Medications 06/23/2023 DIABETES THERAPIES Medication Dosage Pharm Subclass semaglutide (OZEMPIC) 0.25 mg or 0.5 mg (2 mg/3 mL) pen Inject 0.5 mg subcutaneously one time a week. Antihyperglycemic - Glucagon-Like Peptide-1 (GLP-1) Receptor Agonists CARDIOVASCULAR Medication Dosage Pharm Subclass rosuvastatin (CRESTOR) 5 mg tablet Take 1 tablet by mouth daily at bedtime. Antihyperlipidemic - HMG CoA Reductase Inhibitors (statins) OTHER Medication Dosage Pharm Subclass blood sugar diagnostic (BLOOD GLUCOSE TEST) test strip Use as instructed to check blood glucose daily. Dx: E11.49 not on insulin Medical Supplies and DME - Blood Glucose Tests Blood-Glucose Meter Use as directed to check BG daily. Dx: E11.49 not on insulin Medical Supplies and DME - Glucose Monitoring Test Supplies calcium carbonate 600 mg-cholecalciferol 200 units (CALCIUM 600 + D,3,) 600 mg(1,500mg) -200 unit tab Take 1 tablet by mouth once daily. Minerals and Electrolytes - Calcium Replacement/Vitamin D Combinations citalopram (CELEXA) 20 mg tablet Take 20 mg by mouth once daily. Antidepressant - Selective Serotonin Reuptake Inhibitors (SSRIs) clonazePAM (KLONOPIN) 0.5 mg tablet Take 1 tablet by mouth as needed. For restless leg syndrome Antianxiety Agent - Benzodiazepines ergocalciferol 50,000 unit capsule (VITAMIN D2, DRISDOL) TAKE 1 CAPSULE ONE TIME WEEKLY Vitamins - D Derivatives esomeprazole (NEXIUM) 20 mg capsule Take 1 capsule by mouth DAILY (6 AM). Gastric Acid Secretion [employer] - Proton Pump Inhibitors (PPIs) fludrocortisone (FLORINEF) 0.1 mg tablet Take 0.5 tablets by mouth once daily. Mineralocorticoids fluticasone (FLONASE) 50 mcg/actuation nasal spray Use 2 Sprays in each nostril twice daily. Nasal Corticosteroids gabapentin (NEURONTIN) 300 mg capsule TAKE 3 CAPSULES DAILY AT BEDTIME Anticonvulsant - VALENTIN Analogs Lancets lancets Use as instructed to check blood sugar daily. Dx: E11.49 not on insulin Medical Supplies and DME - Glucose Monitoring Test Supplies loratadine (CLARITIN) 10 mg tablet Take 10 mg by mouth once daily. Antihistamines - 2nd Generation MULTIVITAMIN (MULTI-DAY ORAL) Take by mouth once daily. Multivitamins pen needle, diabetic (COMFORT EZ PEN NEEDLES) 33 gauge x 5/16 ndle To inject weekly Medical Supplies and DME - Insulin [place]-Syringes and Admin Supplies LABS Creatinine (mg/dL) Date Value 05/20/2023 1.16 2021 1.08 Hemoglobin A1C (%) Date Value 05/20/2023 7.0 2021 6.7 Albumin, Urine Random (mg/L) Date Value 05/20/2023 <12.0 2021 <12.0 Cholesterol, Total (mg/dL) Date Value 05/20/2023 140 2021 178 HDL Cholesterol (mg/dL) Date Value 05/20/2023 41 2021 53 LDL Cholesterol (mg/dL) Date Value 05/20/2023 71 2021 100 Triglyceride (mg/dL) Date Value 05/20/2023 142 2021 124 PAST MEDICAL HISTORY Diagnosis Date Carpal tunnel syndrome Diverticulosis of colon (without mention of hemorrhage) Hypotension Localized osteoarthrosis not specified whether primary or secondary, hand Mastodynia Other chronic sinusitis Type II or unspecified type diabetes mellitus without mention of complication, uncontrolled Vertigo Current workup PAST SURGICAL HISTORY Procedure Laterality Date ARTHROSCOPY KNEE DIAGNOSTIC W/WO SYNOVIAL BX SPX Left Arthroscopy, knee BIOPSY BREAST OPEN INCISIONAL 1998 needle localization right breast BIOPSY BREAST OPEN INCISIONAL 1996 right breast CARPAL TUNNEL right LAPS ABD PRTM&OMENTUM DX W/WO SPEC BR/WA SPX Laparoscopy TOTAL ABDOMINAL HYSTERECT W/WO RMVL TUBE OVARY 1992 Social History Tobacco Use Smoking status: Never Smokeless tobacco: Never Vaping Use Vaping Use: Never used Substance Use Topics Alcohol use: Not Currently Drug use: No Comment: denies tx for drug/alcohol abuse in the past. FAMILY HISTORY Problem Relation Age of Onset Dementia Mother Coronary Artery Disease Father COPD Father Breast Cancer Other no known family h/o breast cancer Cancer Other maternal grandmother with h/o ovarian cancer ALLERGIES Allergen Reactions Asa [Salicylates] causes platelet disfunction Aspirin Unknown, Other: See Comments Levaquin [Levofloxa* Rash, Other: See Comments Per pt feels like she on fire Avelox [Moxifloxaci* Intolerance C/O burning feeling on skin PHYSICAL EXAM: Vital Signs BP 114/77 Pulse 80 Wt 81.5 kg (179 lb 10.8 oz) BMI 27.32 kg/m Body mass index is 27.32 kg/m . Physical Exam Constitutional: Appearance: She is not ill-appearing or diaphoretic. Eyes: Conjunctiva/sclera: Conjunctivae normal. Neck: Thyroid: No thyromegaly or thyroid tenderness. Vascular: No carotid bruit. Cardiovascular: Rate and Rhythm: Normal rate and regular rhythm. Pulses: Dorsalis pedis pulses are 2+ on the right side and 2+ on the left side. Posterior tibial pulses are 2+ on the right side and 2+ on the left side. Heart sounds: No murmur heard. No gallop. Musculoskeletal: Right lower leg: No edema. Left lower leg: No edema. Right foot: Deformity (High arch foot) present. Left foot: Deformity (High arch foot) present. Feet: Right foot: Skin integrity: Callus and dry skin present. No ulcer. Toenail Condition: Fungal disease present. Left foot: Skin integrity: Callus and dry skin present. Toenail Condition: Fungal disease present. Comments: Vibration sensation is significantly decreased in right great toe and absent in the left great toe. Lymphadenopathy: Cervical: No cervical adenopathy. Neurological: Mental Status: She is alert. DATA Diagnostic tests reviewed for today's visit: Most recent labs Impression and Plan Diabetes type (Diagnosis): DM Type 2 Adequacy of Glycemic Control: Not controlled, Without hypoglycemia Glycemic Control - Not controlled details: Worsening, Other - Specify Glycemic Control - Specify: A1c still reasonable, just at 7%. It is significant worsening from prior. Worsening control and weight gain are likely contributed by steroid therapy. Patient advised to contact the office if blood sugar readings are consistently high or if they are having frequent hypoglycemia: Yes Recommended Diet: Mediterranean, Other - Specify Recommended Diet - Specify: Consult dietitian Recommended Glucose Monitoring: Once a day Glucose Monitoring before driving: Not applicable Diabetic Therapy Medication Changes: One (1) change made today - Specify Single DM Medication Change Today: Increase Ozempic to 1 mg weekly Lipid Status: Mixed hyperlipidemia, On Statin LDL Goal: < 100 mg/dL Adequacy of Lipid Control: Adequate Lipid Medication Changes: No changes made today Blood Pressure Status: Other - Specify Blood Pressure Status - Specify: Hypotension Blood Pressure Control Status: Controlled Additional BP Medication Information: Patient is on Keddie-f by another provider. She had multiple use of steroids. There was no evidence of adrenal suppression per labs May, 2023 Weight Status: Overweight Complications: Microvascular Microvascular Complications: Neuropathy, Nephropathy Neuropathy Details: Peripheral, Radicular (Comment: Radicular neuropathy seems to be contributing) Nephropathy Details: CKD - Stage 3 Microvascular Complications Status: Stable, Other - Specify Microvascular Status (Other) - Specify: stable creatinine Foot care was discussed today: Yes Related Comorbidities: Hyperlipidemia Other Conditions Addressed Today: Patient expressed understanding and agreed with plan. Patient to continue to follow up with her PCP and with other consultants regarding her other medical problems. Next visit in 3 months, with Endocrinology Nurse Practitioner and in 6 months with me . DAVID Oneill MD June 23, 2023 documented in this encounterWilson Health03-14-2024 Evaluation note* Diagnosis Type 2 diabetes mellitus with stage 3a chronic kidney disease, without long-term current use of insulin (HCC)- Primary Abnormal weight gain Mixed hyperlipidemia 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athy (HCC) documented in this encounter [facility]03-11-2024 Evaluation note* Author Carmen Arroyo [facility] 2023 3:30pmNurse visit performed by Taina Arroyo APPLICATION CHEMIST [facility] Work Phone: [phone]) 955-809703-11-2024 Evaluation note* Author Francisca Godwni [facility] 2023 2:14pmThe above note written by Francisca GOMEZ acting as human recorder, note dictated by Dr. Erich Gillis. Author Carmen Arroyo [facility] 2023 3:30pmNurse visit performed by Taina Arroyo APPLICATION CHEMIST [facility] Work Phone: [phone]) 107-516403-04-2024 History of Present illness Narrative* Andrea Lees MD - 06/13/2023 10:42 AM EST I personally reviewed the above information as obtained by the nurse and confirmed the findings. Additional HPI: 78 year old female with a past medical history of: PAST MEDICAL HISTORY Diagnosis Date Carpal tunnel syndrome Diverticulosis of colon (without mention of hemorrhage) Hypotension Localized osteoarthrosis not specified whether primary or secondary, hand Mastodynia Other chronic sinusitis Type II or unspecified type diabetes mellitus without mention of complication, uncontrolled Vertigo Current workup PAST SURGICAL HISTORY Procedure Laterality Date ARTHROSCOPY KNEE DIAGNOSTIC W/WO SYNOVIAL BX SPX Left Arthroscopy, knee BIOPSY BREAST OPEN INCISIONAL 1998 needle localization right breast BIOPSY BREAST OPEN INCISIONAL 1996 right breast CARPAL TUNNEL right LAPS ABD PRTM&OMENTUM DX W/WO SPEC BR/WA SPX Laparoscopy TOTAL ABDOMINAL HYSTERECT W/WO RMVL TUBE OVARY 1992 History as taken on 03/26/2021: Transient loss of consciousness (TLOC), near LOC, labile blood pressures last overt LOC was sometime in 2020, LOC duration unknown near LOC not often, 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 Douglas is a 75 year old female who is seen today for orthostatic hypotension. Her medical history is significant for HLD, DM2, PSVT, POTS and orthostatic hypotension diagnosed by tilt table test 01/2018. She was seen by Dr. King in December 2020 reporting frequent and progressive episodes of hypotension of the prior few months. Episodes occurred multiple times daily with associated worsened fatigue and lightheadedness with occasional nausea. Episodes occured randomly, but worsened with positionchange (standing up, bending down). She lies down and puts her feet up with relief of symptoms. Shemay have lost consciousness with the episodes. She also reports some episodes of tachycardia with these episodes. Zio monitor and echo were unremarkable. She was advised to ensure adequate hydration and use compression stockings. In follow-up visit with Dr. King in February, she reported some improvement in symptoms but occasionally wobbly. She was noted to be wobbly/swaying and have balance issues while standing for orthostatic VS, whichwere mostly stable. She reports that she had an episode a few days ago when she bent over, had balance issues and fell and bruised her leg. She reports continued leg cramps since the fall. She endorses lightheadedness and dizziness. She reports a cough d/t sinus drainage. She denies chest pain, shortness of breath, orthopnea, edema, palpitations, PND, near syncope or syncope. She tries to maintain adequate hydration with water and Powerade Zero, though she is uncertain of the quantity. She adds salt to her food. She occasionally drinks Dr. Pepper, but not daily. She abstains from alcohol. She has started wearing OTC compression socks. She does not have an exercise regimen. Prior testing (including outside reports) has included: ZIO MONITOR 12/24/2020-01/07/2021: Patient had a min HR of 56 bpm, max HR of 167 bpm, and avg HR of 79 bpm. Predominant underlying rhythm was Sinus Rhythm. 6 Supraventricular Tachycardia runs occurred, the run with the fastest interval lasting 4 beats with a max rate of 167 bpm, the longest lasting 16 beats with an avg rate of 137 bpm. Isolated SVEs were rare (<1.0%), SVE Couplets were rare (<1.0%), and SVE Triplets were rare (<1.0%). Isolated VEs were rare (<1.0%), VE Couplets were rare (<1.0%), and no VE Triplets were present. Patient triggered events / symptom notations correlated with sinus rhythm, sinus tachycardia ECHO 12/24/2020: CONCLUSIONS: - Exam indication: Hypertensive heart disease - The left ventricle is normal in size. Left ventricular systolic function is normal. EF = 69 5% (2D 4-ch.) - The right ventricle is normal in size. Right ventricular systolic function is normal. -No significant valvular abnormalities noted on the study - Exam was compared with the prior CC echocardiographic exam performed on 12/29/2017. No significantchange. EPS TILT 01/17/2018: * FINAL IMPRESSIONS * - The test was stopped early at 34 out of 45 minutes of 70 degree tilt due to extensive symptoms nausea weakness and lightheadedness at patient's request. - Systolic blood pressures decreased from 131 mmHg at start to 112 mmHg at end of tilt. - Diastolic blood pressures decreased from 78 mmHg at start to 59 mmHg at end of tilt. - Blood pressure upon return to supine position was 141/70 mmHg. - Heart rates increased from 78 bpm at start to 107 bpm at end of tilt. - Heart rate upon return to supine position was 83 bpm. - ECGs showed: normal sinus rhythm with myocardial changes but no arrhythmias, and QT prolongation at baseline, repeat tilt and recovery. - Patient signs/symptoms included: HOT, LIGHTHEADED, LIGHTHEADEDNESS, NAUSEA, SEE NOTE. - Overall: The test is diagnostic for accentuated postural tachycardia. The test is diagnostic for orthostatic hypotension. Tilt Table Test 09/16/2021: * FINAL IMPRESSIONS * - The test was completed per protocol at 45 minutes of 70 degree tilt. - Systolic blood pressures remained stable from 115 mmHg at start to 122 mmHg at end of tilt. - Diastolic blood pressures oscillated from 63 mmHg at start to 54 mmHg at end of tilt. - Blood pressure upon return to supine position was 133/47 mmHg. - Heart rates increased from 70 bpm at start to 97 bpm at end of tilt. - Heart rate upon return to supine position was 66 bpm. - ECGs showed: sinus, baseline QTc 465, infrequent PVC; no diagnostic ST changes - Patient signs/symptoms included: DIZZINESS, HOT, PAIN, SEE NOTE, SOB, VISION CHANGES. - Overall: The test is negative for syncope. Autonomic Reflex Testing 09/2021: Heart rate response to deep breathing is normal via the mean heart rate range and the E:I ratio. Heart rate response to the Valsalva maneuver, as assessed by the Valsalva ratio, is reduced but the blood pressure responses to phase II and phase IV of the maneuver are intact. This is an abnormal cardiovascular autonomic test panel due to a reduced Valsalva ratio. This finding is nonspecific but is consistent with a cardiovagal abnormality. However, other tests of cardiovagal function, the heart rate response to deep breathing via the mean heart rate range method and E:Iratio are normal. There is no evidence of a significant cardiovascular adrenergic abnormality. QSART 09/2021: QSART responses at the left forearm, proximal leg, distal leg , and foot are normal. There is no evidence of a significant postganglionic sympathetic sudomotor abnormality like that seen in autonomic/small fiber neuropathy. Interval History as taken today 06/13/2023 : The patient presents today for a follow up visit. She reports foot fracture since last visit after she slipped. Ht 172.7 cm (5' 8 ) Wt 81.6 kg (180 lb) BMI 27.37 kg/m BP w/Orthostatic Vitals Date and Time Orthostatic BP Orthostatic Pulse BP Pulse BP Position BP Site BP Cuff Size 06/13/23 1038 113/68 84 -- -- Standing Left Arm -- 06/13/23 1036 118/67 77 -- -- Sitting Left Arm -- 06/13/23 1034 127/74 75 -- -- Supine Left Arm -- General/Constitutional: no acute distress, well appearing Psych: alert and oriented Skin: intact Eyes: EOMI ENT: adequate neck movement Cardiovascular: regular, normal S1 and S2 without S3 or S4, no significant murmurs, no significant lower extremity edema, no carotid bruit Resp: lungs generally clear to auscultation bilaterally, lungs with equal air entry bilaterally Neuro: no obvious focal motor deficits Musculoskeletal: brace left ankle Lab Results Component Value Date/Time HB 13.1 2021 10:12 AM HB 13.0 12/24/2020 04:55 PM K 3.8 05/20/2023 08:29 AM K 4.1 12/21/2022 09:07 AM K 4.5 2021 10:12 AM K 4.8 12/24/2020 04:55 PM CREAT 1.16 (H) 05/20/2023 08:29 AM CREAT 1.05 (H) 12/21/2022 09:07 AM CREAT 1.04 (H) 05/21/2022 09:36 AM CREAT 1.08 (H) 2021 10:12 AM CREAT 1.05 (H) 12/24/2020 04:55 PM CREAT 1.00 (H) 10/24/2020 10:17 AM TSH 3.790 12/21/2022 09:07 AM TSH 1.590 10/06/2022 09:01 AM TSH 3.480 2021 10:12 AM TSH 3.020 12/24/2020 04:55 PM ECG 06/13/2023 : sinus 79 bpm, omar 152, qrs 92, qt 392/449, possible inferior Qwaves (seen on prior ECG) Assessment and Recommendations #. Transient loss of consciousness (TLOC), near LOC, labile blood pressures. On prior (initial) visit 03/26/2021: Discussed that the prior Tilt Table Test in 2018 only reported a blood pressure decrease to 112/59 mmHg. Orthostatic vitals 03/26/2021 showed generally stable blood pressures from 122/72 mmHg supine to 113/66 mmHg standing. We discussed the possible benefit of a repeat 45-minute passive Tilt Table Test with [id number] blood pressure measurement (to see how low the blood pressures actually go) and the patient agrees; the risks, benefits, and alternatives were discussed with the patient and the consent form was signed. QSART and Autonomic Reflex testing will be requested to assess for autonomic neuropathy / autonomicdysfunction. On prior visit 01/18/2022: Tilt Table Test 09/2021 was negative for syncope. She was seen by Autonomic Neurology with concern for vertigo and she was sent to physical therapy for vertigo which has reportedly helped her dizziness. She was seen by Dr King and started on florinef 0.1 mg daily which has also helped her symptoms / dizziness. She denies TLOC since last visit with tn 03/26/2021. Advised that she monitor her blood pressures while on florinef and update Dr King with any persistently high blood pressures > 140s mmHg systolic. Advise periodic assessment for hypokalemia while taking florinef. Advise calcium and vitamin D supplementation if the patient is to take florinef snf. Discussed termite helper cardiac monitoring with an Implantable Loop Recorder to assess for any arrhythmogenic causes of TLOC and she will consider further; will mail educational material about the Implantable Loop Recorder. Today 06/13/2023: She reports difficulties with low blood pressures down to 70s/40s mmHg. She reports taking fludrocortisone 0.[address] King. Orthostatic vitals here today 06/13/2023 showed blood pressures from 127/74 mmHg supine to 113/68 mmHg standing. Recheck echocardiogram; ECG with possible Q-waves (seen in the past as well). We discussed the possible benefit of a repeat 45-minute passive Tilt Table Test with [id number] blood pressure measurement and the patient agrees; the risks, benefits, and alternatives were discussed with the patient and the consent form was signed. Follow up with Autonomic Neurology Sheryl Garza to reassess for neurogenic etiology for low / labile blood pressures. Follow up with Endocrinology to assess for possible adrenal insufficiency. Follow up with Endocrinology as well for monitoring while on fludrocortisone; she reports taking calcium and Vitamin D but had foot fracture after slipping. Will copy Cardiology Dr King on these notes as well, with consideration for further evaluation of possible Q-waves on ECG depending on echocardiogram results. Depending upon Tilt Table Test results, can possibly recommend changing fludrocortisone to midodrine or other medication. The following are also recommended: -Sit down or lie down when symptomatic -Caution with assuming upright position (especially at night), with use of the toilet, and with showering. -Avoid dehydration -Adequate fluid hydration -Care with / Avoid substances that cause vasodilation (eg alcohol) -Consider using a Home Medical Alert System / Personal Emergency Response System -Local / state laws should be followed regarding driving. Otherwise, general recommendations include: -No private driving if symptoms occur while driving -No private driving for 1 month following an episode of syncope. [ACC/AHA Syncope Guidelines 2017. PMID 11155262] -If syncope is frequent (more than 6 episodes in 1 year), then no private driving until symptoms are controlled. [ACC/AHA Syncope Guidelines 2017. PMID 82577634] -For professional or commercial driving, driving recommendations may differ depending upon company or governmental regulations. Andrea Lees MD, [facility] Director of the Syncope Center Cardiac Electrophysiology [facility] The Nurses and Nurse Practitioners at [facility] are integral to your care. -*Test results will be available on [employer].* -For brief questions regarding the test results, please send a [employer] message or call the office ([phone]), and a Nurse will be in contact. -If you would prefer more extensive discussions of the test results and recommendations, you can request a follow up visit (which can be a Virtual Visit if you prefer). A copy of this follow-up note can be made available to your referring or primary physician upon request. As a national referral center for syncope and related conditions seeing patients from across the country, we depend upon collaboration with the referring or primary physician for termite helper ongoing care. Please contact your referring or primary physician to process any needed documentation (such as work forms, disability forms, etc.). Please note, pre-operative cardiac risk evaluation is not a service we provide. Tests or evaluations performed here can be made available upon request. Thank you for your visit today. Our hope is to be able to provide you with further appropriate evaluation of your symptoms in order to arrive at a diagnosis, and to provide guidance for you and your primary physician as you continue to work together for your ongoing care. Our hope is to help guide you towards the best of health. * Sheryl Sargent RN - 06/13/2023 10:15 AM EST Images from the original note were not included. [facility] [place] [facility] Department of Cardiovascular Medicine SECTION OF CARDIAC PACING and ELECTROPHYSIOLOGY OUTPATIENT VISIT DATE June 13, 2023 PRIMARY CARE PHYSICIAN: Erich Gillis, DO [address] [place] [address] REFERRING PHYSICIAN: No referring provider defined for this encounter. NURSING INTAKE HISTORY: Ms. Douglas is a 78 year old female who is seen today for orthostatic hypotension. She has a PMH of HLD, DM2, PSVT, POTS and orthostatic hypotension diagnosed by tilt table test 01/2018. She was last seen via VV on 01/18/2022 and reported frequent episodes of hypotension with associated worsening fatigue and lightheadedness with occasional nausea. Episodes occur randomly, but worsen with position change. Notes episodes of tachycardia with events as well. Previous Zio monitor and echo were unremarkable. She underwent another tilt table test in September 2021 that was negative for syncope. She denies any episodes of syncope. She was seen by Autonomic Neurology with concern for vertigo and she was sent to physical therapy for vertigo which has reportedly helped her dizziness. She was seen by Dr King and started on florinef 0.1 mg daily which has also helped her symptoms / dizziness. Discussed possible ILR placement for termite helper monitoring and she wanted to consider further. She reports still having recurrence of hypotension. She notes worsening hypotension. She notes still having dizziness, fatigue, nausea. She notes this occurring daily with no triggers. She denies anypassing out events. She notes postural intolerance with sitting to standing an bending over. She is currently maintained on Florinef 0.1 mg tablets daily. She denies abdominal distention, chest pain, shortness of breath, orthopnea, cough, edema, palpitations. She drinks about 2 glasses of water a day. She does drink pop on a regular basis and drinks 2 cans a day. She does not drink any alcohol or add salt to her foods. She does wear compression stockings.She does not exercise. EK06/13/2023 PAST MEDICAL HISTORY Diagnosis Date Carpal tunnel syndrome Diverticulosis of colon (without mention of hemorrhage) Hypotension Localized osteoarthrosis not specified whether primary or secondary, hand Mastodynia Other chronic sinusitis Type II or unspecified type diabetes mellitus without mention of complication, uncontrolled Vertigo Current workup PAST SURGICAL HISTORY Procedure Laterality Date ARTHROSCOPY KNEE DIAGNOSTIC W/WO SYNOVIAL BX SPX Left Arthroscopy, knee BIOPSY BREAST OPEN INCISIONAL 1999 needle localization right breast BIOPSY BREAST OPEN INCISIONAL 1996 right breast CARPAL TUNNEL right LAPS ABD PRTM&OMENTUM DX W/WO SPEC BR/WA SPX Laparoscopy TOTAL ABDOMINAL HYSTERECT W/WO RMVL TUBE OVARY 1992 SOCIAL HISTORY Social History Tobacco Use Smoking status: Never Smokeless tobacco: Never Vaping Use Vaping Use: Never used Substance Use Topics Alcohol use: Not Currently Drug use: No Comment: denies tx for drug/alcohol abuse in the past. FAMILY HISTORY Problem Relation Age of Onset Dementia Mother Coronary Artery Disease Father COPD Father Breast Cancer Other no known family h/o breast cancer Cancer Other maternal grandmother with h/o ovarian cancer ALLERGIES: ALLERGIES Allergen Reactions Asa [Salicylates] causes platelet disfunction Aspirin Unknown, Other: See Comments Levaquin [Levofloxa* Rash, Other: See Comments Per pt feels like she on fire Avelox [Moxifloxaci* Intolerance C/O burning feeling on skin MEDICATIONS: blood sugar diagnostic (BLOOD GLUCOSE TEST) test strip Use as instructed to check blood glucose daily. Dx: E11.49 not on insulin Lancets lancets Use as instructed to check blood sugar daily. Dx: E11.49 not on insulin rosuvastatin (CRESTOR) 5 mg tablet Take 1 tablet by mouth daily at bedtime. semaglutide (OZEMPIC) 0.25 mg or 0.5 mg (2 mg/3 mL) pen Inject 0.5 mg subcutaneously one time a week. gabapentin (NEURONTIN) 300 mg capsule TAKE 3 CAPSULES DAILY AT BEDTIME Blood-Glucose Meter Use as directed to check BG daily. Dx: E11.49 not on insulin ergocalciferol 50,000 unit capsule (VITAMIN D2, DRISDOL) TAKE 1 CAPSULE ONE TIME WEEKLY citalopram (CELEXA) 20 mg tablet Take 20 mg by mouth once daily. fludrocortisone (FLORINEF) 0.1 mg tablet Take 0.5 tablets by mouth once daily. clonazePAM (KLONOPIN) 0.5 mg tablet Take 1 tablet by mouth as needed. For restless leg syndrome loratadine (CLARITIN) 10 mg tablet Take 10 mg by mouth once daily. fluticasone (FLONASE) 50 mcg/actuation nasal spray Use 2 Sprays in each nostril twice daily. pen needle, diabetic (COMFORT EZ PEN NEEDLES) 33 gauge x 5/16 ndle To inject weekly esomeprazole (NEXIUM) 20 mg capsule Take 1 capsule by mouth DAILY (6 AM). MULTIVITAMIN (MULTI-DAY ORAL) Take by mouth once daily. calcium carbonate 600 mg-cholecalciferol 200 units (CALCIUM 600 + D,3,) 600 mg(1,500mg) -200 unit tab Take 1 tablet by mouth once daily. Ht 5' 8 (1.73m) Wt 180 lb (81.6kg) BMI 27.38 kg/(m^2). Sheryl Sargent RN [facility] Syncope Center Score Please estimate the frequency of the following symptoms: Never-0, Rare-1, Occasional-2, Frequent-3, Daily-4, Constant*-5 Symptoms Subtotal Syncope/Near Syncope Score 1 Dizziness/Lightheadedness Score 2 Exercise Intolerance Score 2 Headache Score 2 Sleep Problems Score 4 Total Frequency Score 9 *For syncope/near syncope multiple episodes daily Please estimate the severity of the following symptoms: None-0, Minimal-1, Mild-2, Moderate-3, Severe-4, Intolerable-5 Symptoms Subtotal Palpitations/Tachycardia Score 0 Fatigue Score 3 Brain Fog Score 1 Shortness of Breath Score 1 GI Symptoms Score* 3 Total Severity Score 8 *GI symptoms include nausea, bloating, diarrhea, constipation, poor appetite, abdominal pain, earlysatiety Total of Both Sections: 17 [facility] in [facility] Evaluation + Plan note Extracted from:Title:Bilateral sacroiliac joint injectionAuthor:Anirudh Arroyo DODate:06/08/23 Diagnosis: M46.1, bilateral sacroiliitis Procedure: Bilateral diagnostic and therapeutic sacroiliac Joint injections under fluoroscopic guidance Anesthesia: Local Complications: none After informed consent was obtained, the patient was brought back to the procedure room and placed in the prone position. Back areas prepped and draped in the usual sterile fashion using fluoroscopicguidance, the skin and subcutaneous tissues overlying the needle trajectory over the lower aspect of sacroiliac joints were anesthetized with 2% lidocaine. The 22-gauge Quincke needles were then introduced in the lower aspect of the sacroiliac joint. Injection of contrast under fluoroscopy revealedappropriate intra-articular spread with confirmation in at least 2 views. Thereafter, 2 mL of 0.5% b upivacaine with 20 mg of methylprednisolone was injected into each sacroiliac joint. The needles were then removed. The patient tolerated procedure well. Patient was then transferred to the recovery room in stable condition. Follow-up: The patient will update us on the response to this procedure, and agrees to continue currently prescribed/recommended therapies. Future Appointments Appointment Date:06/24/2023 10:30:00 AM Scheduled Provider:Kristie Saavedra PA-C Location:[facility] Appointment Type:Pain Management - Follow Up () Appointment Date:07/26/2023 08:45:00 AM Scheduled Provider:Ryan LIVE MD Location:[facility] Appointment Type:URO Office Visit [facility]02-28-2024 Note [id number] NoteDiagnosis: M46.1, bilateral sacroiliitis Procedure: Bilateral diagnostic and therapeutic sacroiliac Joint injections under fluoroscopic guidance Anesthesia: Local Complications: none After informed consent was obtained, the patient was brought back to the procedure room and placed in the prone position. Back areas prepped and draped in the usual sterile fashion using fluoroscopicguidance, the skin and subcutaneous tissues overlying the needle trajectory over the lower aspect of sacroiliac joints were anesthetized with 2% lidocaine. The 22-gauge Quincke needles were then introduced in the lower aspect of the sacroiliac joint. Injection of contrast under fluoroscopy revealedappropriate intra-articular spread with confirmation in at least 2 views. Thereafter, 2 mL of 0.5% b upivacaine with 20 mg of methylprednisolone was injected into each sacroiliac joint. The needles were then removed. The patient tolerated procedure well. Patient was then transferred to the recovery room in stable condition. Follow-up: The patient will update us on the response to this procedure, and agrees to continue currently prescribed/recommended therapies.[facility] Comment on above:Result Comment: Electronically Signed By: Anirudh Arroyo DO\Date and Time Signed: 06/08/23 10:27 [id number] History of Present illness Narrative* Tameka Krause, PT - 05/23/2023 1:30 PM EST Physical Therapy Physical Therapy Treatment Visit Patient Name: Hola Douglas Today's Date: 05/23/2023 Encounter Diagnoses Name Primary? Left foot pain Yes Visit number: 5 Supervised time: 20 minutes Total time: 50 minutes Precautions: fracture of L foot 3 months ago Subjective Pain: Pt. Has no c/o L foot/ankle pain. Presents w/ use of ASO brace, which pt. States is helping to manage her pain. Overall progress: Pt. Has been ambulating w/ brace at all times, reports lessening of brace rubbingalong plantar aspect of her foot Objective: BP check: 115/74 110/71 103/48 98/62 Following last BP assessment pt. States that she felt well, was able to sit, stand w/o sx's present, ambulated out of clinic. Recommended pt. To seek a ride home, however she stated she was fine to leave on her own, on her own will. Advised her to contact physician if this episode persisted. Treatment: Therapeutic Exercise: per flow sheet x 20 minutes for ankle AROM, strengthening, foot intrinsic strengthening w/ emphasis on posture in standing, 10 minutes unsupervised Nustep Modalities: Ice to L foot/ankle x 10 minutes Assessment: Pt. Performed Nustep, standing gastroc stretching and standing active ankle DF/PF, INV/EV AROM and began showing signs of hypotension. Lowered pt. To chair, BP monitored throughout rest of session. Pt. Transferred to table to lay supine in attempts for recovery of her sx's. Pt. [place] sx's recover after 15 minutes, however BP reading remained low. Pt. Able to sit, stand and ambulate to BR w/o sx's.Advised to call for transportation however pt. Insisted she was able to drive and was no longer showing hypotensive like sx's including syncope like episode. Session was ended early. Plan: Hola Douglas will benefit from physical therapy 2 times per week for 4-6 weeks per plan of care. documented in this encounterNorth [facility] City [id number] Evaluation + Plan note Extracted from:Title:Pain Managment Follow upAuthor:Quentin CLEMONS, AmandaDate: 05/20/23 Impression and Plan Patient is a 78-year-old female with a past medical history significant for lumbar spondylosis and sacroiliitis. Recent right-sided L4-S1 facet RFA done on 04/20/2020 for has only given her 25% reliefat this time. We had a long session with the RFA process. Patient voiced understanding. Unfortunate, at this time some of her pain appears to be related to her sacroiliac joints. Based onher imaging findings, her pain pattern, her failure to improve with previous conservative treatments and the pain that she is experiencing at this time I would recommend bilateral sacroiliac joint injection under fluoroscopy for both diagnostic and therapeutic purposes. Procedure was discussed. Risks and benefits were discussed. Patient is agreeable. She will follow-up 2 weeks after the injectionfor reevaluation. Call clinic sooner if necessary. OARRS reviewed ERMELINDA score: 31% Future Appointments Appointment Date:07/26/2023 08:45:00 AM Scheduled Provider:Ryan LIVE MD Location:[facility] Appointment Type:URO Office Visit [facility]02-01-2024 History of Present illness Narrative* Tameka Krause PT - 05/12/2023 11:00 AM EST Physical Therapy Physical Therapy Treatment Visit Patient Name: Hola Douglas Today's Date: 05/12/2023 Encounter Diagnoses Name Primary? Left foot pain Yes Visit number: 3 Supervised time: 35 minutes Total time: 45 minutes Precautions: fracture of L foot 3 months ago Subjective Pain: lateral foot pain along base of 5th metatarsal as well as dorsum oif foot. Overall progress: Pt. Has ongoing pain present along lateral aspect, dorsal aspect of L foot following fracture and immobilization 3 months ago. Pt. Has worn ASO brace since previous session, and reports helps to stabilize foot and ankle while ambulating Objective: + point tenderness along base of 5th met along lateral and plantar surface Open end feel w/ PROM L ankle, most guarded in eversion and DF. Treatment: Manual: STM lateral foot/ankle, PROM ankle x 15 minutes Therapeutic Exercise: per flow sheet x 20 minutes for ankle AROM, strengthening, foot intrinsic strengthening Modalities: Ice to L foot/ankle x 10 minutes Assessment: Pt. Continues w/ episodes of moderate pain while palpating lateral foot at base of 5th metatarsal. Pt. Demonstrates significant bony deformity at base of 5th met that interferes w/ ability to WB through lateral aspect of foot. Tolerated AROM, PRE's in open chain this session w/o adverse pain. Primary weakness present w/ ankle eversion. Also noted during seated PWB heel raise w/ deviation toward lateral foot and inversion d/t weakness of peroneals. Begin to progress WB activities as tolerated toincrease ankle stability and tolerance for loading activities such as stair climbing and walking onunlevel surfaces. Plan: Hola Douglas will benefit from physical therapy 2 times per week for 4-6 weeks per plan of care. documented in this encounterNorth Kansas City [id number] Evaluation + Plan note Extracted from:Title:Right lumbar RFAAuthor:Anirudh Arroyo DO.Date:04/20/23 Diagnosis: M47.816, right-si ded lumbar spondyloarthropathy Procedure: Right-sided L3 and L4 medial branch and L5 posterior ramus radiofrequency ablation to target the facet joints of L4/5 and L5/S1 Anesthesia: Local Complications: None After informed consent was obtained, the patient was brought to the procedure room and placed in the prone position. The back area is prepped and draped in usual sterile fashion. The patient was placed on monitors via the anesthesia team. Using fluoroscopic guidance skin and subcutaneous tissue overlying needle trajectories to the target sites were anesthetized with 2% lidocaine. 20-gauge radiofrequency needles were advanced under fluoroscopic guidance to the appropriate anatomic landmarks. Needle tip position was confirmed in both the AP and lateral views. Next, all levels on the right were stimulated at 2Hz for motor stimulation at 2.0V with no lower extremity motor contractions. Next 1.0mL of 2.0% lidocaine was injected through each needle tip. Thereafter, radiofrequency lesioning was carried out at 80 degrees for 80 seconds twice. Next, all levels on the left were stimulated at 2Hz for motor stimulation at 2.0V with no lower extremity motor contractions. Next 1.0mL of 2.0% lidocaine was injected through each needle tip. Thereafter, radiofrequency lesioning was carried out at 80 degrees for 80 seconds twice. The needles were removed. The patient was then transferred to the recovery room in stable condition. Postprocedure lower extremity strength 5/5 bilaterally in hip flexors, quads, hamstrings, plantarflexion/dorsiflexion/FHL/EHL. Follow-up: Discharge instructions provided. The patient agrees to continue currently prescribed/recommended therapies. Future Appointments Appointment Date:05/20/2023 10:15:00 AM Scheduled Provider:Kristie Saavedra PA-C Location:[facility] Appointment Type:Pain Management - Follow Up (FT) Appointment Date:07/26/2023 08:45:00 AM Scheduled Provider:Ryan LIVE MD Location:[facility] Appointment Type:URO Office Visit [facility]01-10-2024 Note [id number]#[id number] [facility] NoteDiagnosis: M47.816, right-sided lumbar spondyloarthropathy Procedure: Right-sided L3 and L4 medial branch and L5 posterior ramus radiofrequency ablation to target the facet joints of L4/5 and L5/S1 Anesthesia: Local Complications: None After informed consent was obtained, the patient was brought to the procedure room and placed in the prone position. The back area is prepped and draped in usual sterile fashion. The patient was placed on monitors via the anesthesia team. Using fluoroscopic guidance skin and subcutaneous tissue overlying needle trajectories to the target sites were anesthetized with 2% lidocaine. 20-gauge radiofrequency needles were advanced under fluoroscopic guidance to the appropriate anatomic landmarks. Needle tip position was confirmed in both the AP and lateral views. Next, all levels on the right were stimulated at 2Hz for motor stimulation at 2.0V with no lower extremity motor contractions. Next 1.0mL of 2.0% lidocaine was injected through each needle tip. Thereafter, radiofrequency lesioning was carried out at 80 degrees for 80 seconds twice. Next, all levels on the left were stimulated at 2Hz for motor stimulation at 2.0V with no lower extremity motor contractions. Next 1.0mL of 2.0% lidocaine was injected through each needle tip. Thereafter, radiofrequency lesioning was carried out at 80 degrees for 80 seconds twice. The needles were removed. The patient was then transferred to the recovery room in stable condition. Postprocedure lower extremity strength 5/5 bilaterally in hip flexors, quads, hamstrings, plantarflexion/dorsiflexion/FHL/EHL. Follow-up: Discharge instructions provided. The patient agrees to continue currently prescribed/recommended therapies.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 The patient tolerated this well without complication. We discussed that the finger may feel numb and tingle for hours after this injection. Patient also instructed on the use of topical Voltaren Gel Mar,arpal tunnel syndrome, left (ICD-10 - G56.02) Mar,arpal tunnel syndrome, right (ICD-10 - G56.01)We performed a cortisone injection into the right carpal tunnel under sterile technique. The patient tolerated this well without complication. We discussed that the wrist/hand may feel numb and tingle for hours after this injection. 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 Surgical incisions are well approximated mostly healed and she voices improvement with her pain. Follow up with ortho as scheduled. 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 Chest xray on February 18 which was normal. Did have covid virus August 2022, did not fully recover and then became worse November and we have tested her for covid/flu/rsv a few weeks ago. Did use Breztri in November but she does not remember if this helped or not, does use albuterol breathing treatments. I will provider her with sample of Trelegy inhaler, will try to avoid oral steriods at this time if we can. Will order PCR full respiratory panel. Continue breathing treatments. Feb,OTS (postural orthostatic tachycardia syndrome) (ICD-10 - I49.8) Feb,Foot fracture, left (ICD-10 - S92.902A) Patient doing well post fracture, is out of her boot and walking well. [facility] Other 11-27-2023 Evaluation + Plan noteExtracted from:Title: Pain Managment Follow upAuthor:Quentin CLEMONS, AmandaDate:03/07/23 Impression and Plan Patient is a 77-year-old female with a past medical history significant for lumbosacral spondylosisand chronic right-sided lower back pain. Patient underwent her second right-sided L4-5 and L5-S1 facet medial branch block done on 02/28/2023 that gave her once again 100% relief for 24 hours. Both medial branch blocks have given her significant short-term relief. She is eager to get long-term relief. We once again reviewed her imaging. Based on her imaging findings, her pain pattern, and the significant response she got from both medial branch blocks I recommended to patient a right-sided L4-5and L5-S1 facet RFA under fluoroscopy for long-term relief. Procedure was discussed. Risk and benefits were discussed. Patient would like to pursue this but due to the uncomfortable nature of the procedure and how much pain she had during both medial branch blocks she would like to have this done under moderate sedation MAC anesthesia. She is aware of the risks. She will follow-up 3 weeks after the RFA for reevaluation. Call clinic sooner if necessary. 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 Feb,Unilateral primary osteoarthritis of first carpometacarpal joint, right hand (ICD-10 - M18.11) Feb,3Carpal tunnel syndrome, left (ICD-10 - G56.02) Feb,3Carpal tunnel syndrome, right (ICD-10 - G56.01) Feb,Other specified postprocedural states (ICD-10 - Z98.890) [facility] Other 11-16-2023 Evaluation note* Encounter Date Diagnosis Assessment Notes Treatment Notes Treatment Clinical Notes Feb, Moderate persistent asthmatic bronchitis with acute exacerbation (ICD-10 - J45.41) [facility] Other 11-06-2023 Evaluation note* Encounter Date Diagnosis Assessment Notes Treatment Notes Treatment Clinical Notes Feb, Acute cough (ICD-10 - R05.1) See TE for clinical treatment plan. Patient and provider aware of testing results. [facility] Other 10-23-2023 Evaluation + Plan noteExtracted from:Title: FUVAuthor:Faisal BRICENO, Jamey DDate:01/31/23 Impression and Plan 77-year-old female with right-sided severe low back pain consistent with lumbar spondylosis. The patient had excellent response to her first set of diagnostic facet blocks to the right L4-5 and L5-W7vmbnti. I recommend repeating the injections to confirm etiology of pain. If the patient experiences significant short-term relief for the duration of the local anesthetic following the second set ofdiagnostic blocks she would be a candidate for radiofrequency ablation at the same levels to provide longer lasting relief. Risk, benefits, and alternatives as well as the detailed plan of care was reviewed with the patient. She wishes to proceed to soon as possible. Follow-up 1 week after the diagn ostic blocks to assess response. Patient agrees with plan of care. 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 Patient was preepped and cortisone was injected into the right thumb CMC and right carpal tunnel under sterile conditions. Patient tolerated well with no adverse reactions. Jan,arpal tunnel syndrome, left (ICD-10 - G56.02) Jan,arpal tunnel syndrome, right (ICD-10 - G56.01) Jan,Other specified postprocedural states (ICD-10 - Z98.890)Radiographs reviewed with patient in detail. May discontinue bracing. Sent in order to buderer for compounded topical medication. [facility] Other 09-21-2023 History of Present illness Narrative* Hola Penaloza MD - 12/30/2022 2:44 PM EDT Hola Douglas is a 77 year old here today for right lower inner quadrant breast pain. Pain over 5th intercostal space and costochondral junction. 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 Hx platelet problems when on ASA many years ago. HISTORIES FAMILY HISTORY Problem Relation Age of Onset Dementia Mother Coronary Artery Disease Father COPD Father Breast Cancer Other no known family h/o breast cancer Cancer Other maternal grandmother with h/o ovarian cancer PAST MEDICAL HISTORY Diagnosis Date Carpal tunnel syndrome Diverticulosis of colon (without mention of hemorrhage) Hypotension Localized osteoarthrosis not specified whether primary or secondary, hand Mastodynia Other chronic sinusitis Type II or unspecified type diabetes mellitus without mention of complication, uncontrolled Vertigo Current workup PAST SURGICAL HISTORY Procedure Laterality Date ARTHROSCOPY KNEE DIAGNOSTIC W/WO SYNOVIAL BX SPX Left Arthroscopy, knee BIOPSY BREAST OPEN INCISIONAL 1998 needle localization right breast BIOPSY BREAST OPEN INCISIONAL 1996 right breast CARPAL TUNNEL right LAPS ABD PRTM&OMENTUM DX W/WO SPEC BR/WA SPX Laparoscopy TOTAL ABDOMINAL HYSTERECT W/WO RMVL TUBE OVARY 1992 Social History Tobacco Use Smoking status: Never Smokeless tobacco: Never Vaping Use Vaping Use: Never used Substance Use Topics Alcohol use: Not Currently Drug use: No Comment: denies tx for drug/alcohol abuse in the past. Breast Exam: Right breast with tenderness to pressure at 5th costochondral junction. Breasts are symmetrical and normal to inspection. The nipples are everted. No erythema, induration,ulceration, skin retraction, edema or masses are seen. There is no nipple discharge. No masses are palpated in either breast. There is no cervical, supraclavicular, or axillary adenopathy. Mammograms today show no lesions supicious for ca. IMP: Costochondritis PLAN: recommend a trial of topical Volaren See prn Hola Penaloza MD * Cinthia Bonner - 12/30/2022 2:14 PM EDT OUTPATIENT CLINIC PROGRESS NOTE Interval HPI: 77 year old female with presenting for follow up for right sided chest pain. She has been having intermittent right sided chest pain several times a week for the last month, the pain lasts less than 5 minutes each time. Not related to movement, but can induce the pain by pressing on her chest. Rates pain a 5/10. Denies redness, skin changes, lumps or discharge. She states the pain is similar in quality to the pain she had on the left side previously. PAST MEDICAL HISTORY: PAST MEDICAL HISTORY Diagnosis Date Carpal tunnel syndrome Diverticulosis of colon (without mention of hemorrhage) Hypotension Localized osteoarthrosis not specified whether primary or secondary, hand Mastodynia Other chronic sinusitis Type II or unspecified type diabetes mellitus without mention of complication, uncontrolled Vertigo Current workup PAST SURGICAL HISTORY: PAST SURGICAL HISTORY Procedure Laterality Date ARTHROSCOPY KNEE DIAGNOSTIC W/WO SYNOVIAL BX SPX Left Arthroscopy, knee BIOPSY BREAST OPEN INCISIONAL 1998 needle localization right breast BIOPSY BREAST OPEN INCISIONAL 1996 right breast CARPAL TUNNEL right LAPS ABD PRTM&OMENTUM DX W/WO SPEC BR/WA SPX Laparoscopy TOTAL ABDOMINAL HYSTERECT W/WO RMVL TUBE OVARY 1992 FAMILY HISTORY: FAMILY HISTORY Problem Relation Age of Onset Dementia Mother Coronary Artery Disease Father COPD Father Breast Cancer Other no known family h/o breast cancer Cancer Other maternal grandmother with h/o ovarian cancer SOCIAL HISTORY: Social History Tobacco Use Smoking status: Never Smokeless tobacco: Never Vaping Use Vaping Use: Never used Substance Use Topics Alcohol use: Not Currently Drug use: No Comment: denies tx for drug/alcohol abuse in the past. MEDICATIONS: Prior to Admission Medications: semaglutide (OZEMPIC) 0.25 mg or 0.5 mg (2 mg/3 mL) pen Inject 0.5 mg subcutaneously one time a week. rosuvastatin (CRESTOR) 5 mg tablet Take 1 tablet by mouth daily at bedtime. gabapentin (NEURONTIN) 300 mg capsule TAKE 3 CAPSULES DAILY AT BEDTIME blood sugar diagnostic (BLOOD GLUCOSE TEST) test strip Use as instructed to check blood glucose daily. Dx: E11.49 not on insulin Lancets lancets Use as instructed to check blood sugar daily. Dx: E11.49 not on insulin Blood-Glucose Meter Use as directed to check BG daily. Dx: E11.49 not on insulin ergocalciferol 50,000 unit capsule (VITAMIN D2, DRISDOL) TAKE 1 CAPSULE ONE TIME WEEKLY citalopram (CELEXA) 20 mg tablet Take 20 mg by mouth once daily. fludrocortisone (FLORINEF) 0.1 mg tablet Take 0.5 tablets by mouth once daily. clonazePAM (KLONOPIN) 0.5 mg tablet Take 1 tablet by mouth as needed. For restless leg syndrome loratadine (CLARITIN) 10 mg tablet Take 10 mg by mouth once daily. fluticasone (FLONASE) 50 mcg/actuation nasal spray Use 2 Sprays in each nostril twice daily. pen needle, diabetic (COMFORT EZ PEN NEEDLES) 33 gauge x 5/16 ndle To inject weekly esomeprazole (NEXIUM) 20 mg capsule Take 1 capsule by mouth DAILY (6 AM). MULTIVITAMIN (MULTI-DAY ORAL) Take by mouth once daily. calcium carbonate 600 mg-cholecalciferol 200 units (CALCIUM 600 + D,3,) 600 mg(1,500mg) -200 unit tab Take 1 tablet by mouth once daily. No current facility-administered medications for this visit. ALLERGIES: ALLERGIES Allergen Reactions Asa [Salicylates] causes platelet disfunction Aspirin Unknown, Other: See Comments Levaquin [Levofloxa* Rash, Other: See Comments Per pt feels like she on fire Avelox [Moxifloxaci* Intolerance C/O burning feeling on skin COMPLETE REVIEW OF SYSTEMS: GENERAL: Negative for malaise, significant weight loss and fever RESPIRATORY: Negative for wheezing and shortness of breath. Recently had a productive cough due to a sinus infection but has improved CARDIOVASCULAR: Negative for chest pain, leg swelling and palpitations GI: Negative for abdominal discomfort, blood in stools or black stools. Has chronic constipation treated with a stool softener : Negative for dysuria, frequency and incontinence DIRECTOR OF PRODUCT MARKETING: Negative for abnormal vaginal bleeding, abnormal vaginal discharge BREAST: See HPI All other systems negative. Exam: There were no vitals taken for this visit. There is no height or weight on file to calculate BMI. General Appearance: Well appearing, alert, in no acute distress, well-hydrated, well nourished. Skin: Skin color, texture, turgor normal, no suspicious rashes or lesions Respiratory: Lungs clear to auscultation. No wheezing, rhonchi, rales. Heart: RRR without murmur, gallop, or rubs. No ectopy Abdomen: Normal abdominal exam, Abdomen soft, non-tender. Bowel sounds normal. No masses, organomegaly BREASTS: Without skin dimpling, nipple discharge or masses. ASSESSMENT AND PLAN: 77 year old female with possible costochondritis. -Prescribed Voltaren for use as needed -Follow up PRN The patient expressed full understanding and agreement with the plan. SIGNATURE: Cinthia Bonner Medical Student DATE: December 30, 2022 TIME: 2:18 PM documented in this encounterWilson Health09-21-2023 History of Present illness Narrative* Hermila Llamas RT(R) - 12/30/2022 1:45 PM EDT Radiology Service Progress Note PATIENT NAME: Hola Douglas DATE OF SERVICE: December 30, 2022 TIME: 2:23 PM PATIENT IDENTITY VERIFICATION COMPLETED USING TWO (2) IDENTIFIERS: Name and Date of confirmedby patient verbally. FALL SCREENING: Has the patient had 2 falls in the last year or 1 fall with injury or currently using an Ambulatory Assistive Device (Walker, Cane, Wheelchair, Crutches, etc.)? No PATIENT GENDER DATA: Female. status: : No status: NO. 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 Due to patient's inflammatory response, we will send patient a Medrol dose babak. We will also give patient anorder for formal hand therapy. Patient can progress with weight on the left hand as tolerated. [facility] Other 09-09-2023 Miscellaneous Notes* Telephone Encounter - Lorraine Oneill MD - 12/18/2022 3:32 PM EDT Orders are approved. I sent a [employer] message with a request for a notification if the message is not read. Lorraine Oneill MD, MAE * Telephone Encounter - Lucia Nguyen RN - 12/15/2022 10:34 AM EDT Pended labs if agreeable * Telephone Encounter - Elli Hopkins Ma - 12/15/2022 10:24 AM EDT Hola Douglas is calling Lorraine Oneill MD today to request Lab Orders to be placed prior to the 12/23/22 visit. Please notify patient once labs are ordered. Patient has been identified by name and birthdate. Duration of symptoms: N/A Person calling: self Call patient at: at home and on cell [phone] (home) [phone] (cell) Was an appointment scheduled: No Closing statement: Results or non-symptom based questions: Thank you for calling [facility], your call will be returned within the next business day. Elli Hopkins Ma documented in this encounterWilson Health09-05-2023 Miscellaneous Notes* Telephone Encounter - Dilcia Murphy RN - 12/14/2022 1:51 PM EDT Confirmed upcoming appointment with Dr. Penaloza on 12/30. Patient aware of appointment location change to A10. New appointment location will be available in [employer]. Patient verbalized understandingand appreciative of call. documented in this encounterWilson Health08-30-2023 Evaluation note* Encounter Date Diagnosis Assessment Notes Treatment Notes Treatment Clinical Notes Nov, Maxillary sinusitis, unspecified chronicity (ICD-10 - J32.0) The patient states sinusitis symptoms comes and goes, triggered by allergies and the recent [place] fires. CT of the sinus obtained 10/07/22 revealed maxillary and sphenoid sinusitis. Discussion washad antibiotics will be the recommended treatment for flare-ups along with her regular allergy medications. Nov,Sphenoid sinusitis, unspecified chronicity (ICD-10 - J32.3) Mucosal thickening of right sphenoid upon review of CT sinus result obtained 10/07/22. Nov,Status post carpal tunnel release (ICD-10 - Z98.890) Left thumb fusion and left carpal tunnel release performed by orthopedic 11/15/22. Nov,OTS (postural orthostatic tachycardia syndrome) (ICD-10 - I49.8) The patient is following with specialist and for POTS management.Patient statesshe had a spell where her heart rate was running in the 40's, and the above medicaiton was adjusted. Lately reports findigs running 100. I advise she stay cognitive of her heartrate and stay in contact with the specialist for instructions. Nov,ersistent cough (ICD-10 - R05.3) Lungs are clear upon auscultation.Discussion was had sinusitis could be contributing to her persistent cough as well as irritation.I did provide a sample of Ameya today, instructions provided. We will continue to monitor. [facility] Other [id number] Evaluation + Plan noteExtracted from:Title: DAMARISuthor:Jamey Malone MD DDate:12/07/22 Impression and Plan 77-year-old female with a history of bilateral sacroiliitis significantly improved after the bilateral sacroiliac joint injections. Her persistent right- sided low back pain seems facet mediated. She does have considerable degenerative changes on her MRI at those levels. The pain has not responded to physical therapy exercises. Does not tolerate NSAIDs due to diverticulitis. We discussed the likely etiology of her pain. I suggested diagnostic facet blocks under fluoroscopic guidance of the rightL4/5 and L5/S1 facet joints to clarify etiology of pain. The patient does experience significant short-term relief and improved function for the duration of the local anesthetic following the blocks she would be a candidate for lumbar radiofrequency ablation at those levels. The procedure was reviewed with the patient including risk, benefits, and alternatives. The patient wishes to proceed. Follow-up 1 week after the diagnostic blocks to assess response. 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 Instructed patient to work on range of motion exercises. Patient placed in thumb spica brace and stax splint for small finger. Instructed patient to wear at all times, may remove for hyginge and range of motion exercises. Discussed with patient we will leave sutures in for 1 more week. Nov,Unilateral primary osteoarthritis of first carpometacarpal joint, right hand (ICD-10 - M18.11) Nov,arpal tunnel syndrome, left (ICD-10 - G56.02) Nov,arpal tunnel syndrome, right (ICD-10 - G56.01) Nov,Other specified postprocedural states (ICD-10 - Z98.890) [facility] Other 08-04-2023 Miscellaneous Notes* Telephone Encounter - Brigid Guthrie - 11/12/2022 4:57 PM EDT November 12, 2022 Patient Contact Number: [phone] (home) Patient last seen within the last year: Yes Date of last office visit: Reason For Call: BP is in low 50's/40's for last 2 days, SOB, wont go to ED Physician: Da King MD Patient was informed that non-urgent calls may be returned within the next three business days. 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 Patient would like to proceed with surgical treatment Oct,Unilateral primary osteoarthritis of first carpometacarpal joint, right hand (ICD-10 - M18.11) Oct,arpal tunnel syndrome, left (ICD-10 - G56.02) Oct,arpal tunnel syndrome, right (ICD-10 - G56.01) [facility] Other 07-18-2023 Evaluation + Plan noteExtracted from:Title: FUVAuthor:Faisal BRICENO, Jamey RILEYate:10/26/22 Impression and Plan 77-year-old female with severe bilateral back pain consistent with sacroiliitis. She may also be experiencing an element of neurogenic claudication associated with the known spinal stenosis. The painhas not responded to a full course of therapy exercises. Unable to take NSAIDs. Pain is significantly impacting quality life and activities of daily living. The patient and I discussed the likely Dallergy of her pain. Her questions were addressed. I suggested bilateral sacroiliac joint injections for diagnostic purposes. If the patient experiences significant relief directly following the injections this will confirm etiology of pain. Risk, benefits, and alternatives were reviewed with the patient. She wishes to proceed. Plan to follow-up 2 weeks after the injections to assess response. Patient agrees with plan of care. Consider lumbar epidural steroid injections in the future if her neurogenic claudication like symptoms return. Future Appointments Appointment Date:01/14/2023 09:15:00 AM Scheduled Provider:Ryan LIVE MD Location:[facility] Appointment Type:URO Office Visit [facility]06-22-2023 Evaluation note* Encounter Date Diagnosis Assessment Notes Treatment Notes Treatment Clinical Notes Sep, Moderate persistent asthmatic bronchitis with acute exacerbation (ICD-10 - J45.41) Patient reports a significant amount of mucous production coming from her sinus and chest. Tenderness noted over her sinus cavities. She did have covid recently which is likely related to her symptoms also but may have a component of sinusitis as well therefore will change her antibiotics and obtain sinus CT. Sep,ain of left thumb (ICD-10 - M79.645) Discussed with patient that I feel that the pain and inflammation is due to the long acting steriodthat she is receiving in this joint. This is helping her pain, however I feel that the steriod is causing some atrophy of her muscle and she should discuss with Dr. Booth. Low concern for a vasculitis. If the area is inflammed due to atrophy it may take 6-12 months to resolve. Sep,OTS (postural orthostatic tachycardia syndrome) (ICD-10 - I49.8) Voices significant improvement in her dizziness. Encouraged her to continue with the above and continue monitoring her blood pressure. 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 Sep,Elevated liver function tests (ICD-10 - R79.89) Liver function has improved and her hepatitis panel was negative. Sep,Hepatic steatosis (ICD-10 - K76.0) Discussed and educated patient on hepatic steatosis. Diet modifications recommended. Sep,ositive Bates's Sign (ICD-10 - R19.8) Upon review of her ultrasound today the data modeling architect noted a positive yessica sign, however her ultrasound did not show any evidence of acute cholecystitis or gall stones. Sep,Subacute sinusitis, unspecified location (ICD-10 - J01.90) Tenderness is noted over her right sinus area, and she voices a significant amount of mucous that she brings up multiple times a day. Will have her get a sinus CT and if truly a sinusitis concern will need to cover her with longer duration of antibiotics. 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 Onset was a few months ago. I recommended that she use lotrisone cream that she hasat home, and if persists will need to see dermatology. [facility] Other [phone] Miscellaneous Notes* Telephone Encounter - Lizett Wang RN - 09/29/2022 3:50 PM EDT Faxed back. * Telephone Encounter - Lizett Wang RN - 09/29/2022 10:23 AM EDT Form here from [facility] for signature. Placed in Dr. Pizano's inbox. documented in this encounterWilson Health06-21-2023 History of Present illness Narrative* Agusto Andrews MA - 09/29/2022 3:12 PM EDT Fax Report for [facility] regarding Hola Douglas Fax Confirmation Number [id number] documented in this encounterWilson Health06-06-2023 Miscellaneous Notes* Telephone Encounter - Carlita Drake LPN - 09/14/2022 3:55 PM EDT Requester: Patient Patients last Endocrinology visit occurred Last encounter Visit on 09/13/2022 (with Karl Cook) Follow-up evaluation has been established Upcoming Endocrinology Appointments - Next 365 Days Visit Type Date Time Department EST SORAYA PATIENT 12/23/2022 10:40 AM ENDO [facility] Requested Prescriptions Pending Prescriptions Disp Refills gabapentin (NEURONTIN) 300 mg capsule [Pharmacy Med Name: GABAPENTIN CAP 300MG] 270 capsule 0 Sig: TAKE 3 CAPSULES DAILY AT BEDTIME If patient is due for an appointment please route to provider for refill consideration and also to the endo scheduling pool. PSS NOTE: Patient needs scheduled appointment No documented in this encounterWilson Health05-31-2023 Miscellaneous Notes* Telephone Encounter - Kristie Ward PA-C - 09/08/2022 5:01 PM EDT I called the patient to discuss low blood pressure. Her fludrocorticosone had been discontinued. She saw her PCP today where her blood pressure was 90/60. I advised she needs to start taking the fludrocortisone again and offered a [employer]INDER INSPECTOR follow up but patient declined, she would like to wait and see Dr. King. I explained signs/symptoms and parameters for her to go to the ED. Patient verbalized understanding. Kristie Ward PA-C * Telephone Encounter - Brigid STARKS - 09/08/2022 4:39 PM EDT September 08, 2022 Patient Contact Number: [phone] Patient last seen within the last year: Yes Date of last office visit: 08/03/2022 Reason For Call: Medication Issue/Question:Patient was released from the hospital with covid. BP dropped 52/42 and remaining low,PCP was concerned about changing medication. Pt would like to discuss the medication to see if it is ok to take. Physician: Da King MD Patient was informed that non-urgent calls may be returned within the next three business days. Yes Brigid Tolbert ADM documented in this encounterWilson Health05-31-2023 Evaluation note* Encounter Date Diagnosis Assessment Notes Treatment Notes Treatment Clinical Notes August, Hyperlipidemia (ICD-10 - E78.5) Blood work ordered. 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 August,History of COVID-19 (ICD-10 - Z86.16) Patient was recently diagnosed with Covid 08/27/22. She continues with congestion, a productive cough, and significant fatigue. I did order a chest xray, blood work, refilled the medrol dp and advised her to pick up truck driver the refill for the zpak. Patient and voiced understanding. August,OTS (postural orthostatic tachycardia syndrome) (ICD-10 - I49.8) Discussion was had that patient had that patient's fatigue, hypotension, and tachycardia are likelyrelated to her POTS. She has not been taking the fludrocortisone as she states her blood pressure had been doing fine. I advised her to restart the fludrocortisone today and advised the to call her wind project manager, CC Dr. Johnston, to let them know of her current situation and get their opinion on starting midodrine. Patient and voiced understanding. [facility] Other 05-04-2023 Evaluation + Plan noteExtracted from:Title: Clinical DocumentAuthor:Gagan BRICENO, Aishasaint joseph hospitalDate:08/12/22 Chief complaint: Right-sided low back and leg pain History of present illness: This is a 77-year-old female here for a chief complaint of right-sided low back and leg pain. The patient rates the pain as a 10 out of 10. She reports that over the past months she has had increased pain in the right side of her lower back radiating into the front of the right leg. She had a similar issue on the left side a year ago. She underwent a lumbar epidural injection which helped a lot. She reports left-sided pain has remained more or less absent. She statesthe pain is constant but worse with standing and walking. It limits her activity. She is using gabapentin for another issue. She cannot use NSAIDs due to some GI issues. She has maintained some home exercises for her back. She reports that she is going to be taking a trip to [facility] 4 days from now.She denies new neurologic symptoms or any issues with bladder or bowel control. She has some chronic balance issues due to vertigo but they are not any different than they have been in the past. The patient denies additional neurologic symptoms or issues with bladder or bowel control. The patient's past medical, surgical, and social history along with medications and allergies were reviewed. Review of systems was done on 10 systems Physical examination: General: Pleasant white female in no acute distress. Patient appears well- nourished. Vital signs stable Head exam: Head is normocephalic and external ears are normal Neck exam: No tenderness Cardiovascular exam: No signs of poor perfusion and no peripheral edema Respiratory exam: Breathing is unlabored and there is no wheezing present Abdomen exam: Abdomen soft and nondistended Back exam: Right-sided lower lumbar and sacral tenderness Musculoskeletal exam: Strength 5 out of 5 with exception of 4 out of 5 with flexion of the right hip. No pain with internal or external rotation of the right hip. Normal gait. Neurologic exam: Sensation intact. Reflexes diminished but symmetric Psych exam: Affect is appropriate. Alert and oriented Skin exam: No lesions Assessment: The patient's signs and symptoms are consistent with lumbosacral spondylosis, lumbosacral radiculopathy, and lumbar myalgia. We reviewed the patient's imaging. Her MRI from last year was notable for multilevel spondylosis with some areas of moderate central stenosis. Oswestry disability index score was 20% OARRS report was reviewed and was appropriate Plan: I addressed options with her. We will check a new lumbar x-ray and since she [place] going [place] we will proceed with a right lumbosacral trigger point injection today. If she fails to benefit she may need a new MRI. I advised her to with regards some home exercises. We discussed the potential risks and benefits of this plan and the patient was in agreement to proceed. I will have her follow-up in 3 weeks for repeat evaluation. Procedure: Trigger point injection into the right lumbosacral paraspinal musculature Diagnosis: Myalgia Solution: 3 mL of 0.25% bupivacaine and Anesthesia: Local Complications: None After informed consent was obtained the patient was placed in the seated position. The area in question was prepped in sterile fashion. The patient's trigger point in the right lumbosacral paraspinalmusculature was located and a 25-gauge needle was inserted into the skin and advanced into the belly of the muscle. Aspiration was negative. The local anesthetic solution was injected. The needle wasremoved. Bleeding was nil. The patient tolerated the procedure well. Future Appointments Appointment Date:08/30/2022 10:15:00 AM Scheduled Provider:Ryan LIVE MD Location:[facility] Appointment Type:URO Office Visit Appointment Date:08/31/2022 11:30:00 AM Scheduled Provider:Jamey Malone MD Location:[facility] Appointment Type:Pain Management - Follow Up (FT) Appointment Date:01/14/2023 09:15:00 AM Scheduled Provider:Ryan LIVE MD Location:[facility] Appointment Type:URO Office Visit [facility]04-25-2023 History of Present illness Narrative* Da King MD - 08/03/2022 1:42 PM EDT Images from the original note were not included. [facility] [place] [facility] Department of Cardiovascular Medicine SECTION OF CARDIOVASCULAR IMAGING OUTPATIENT VISIT DATE August 03, 2022 OUTPATIENT VISIT TYPE ESTABLISHED PRIMARY CARE PHYSICIAN: Erich Gillis DO [address] [place] [phone] CHIEF COMPLAINT: CV health management visit. HISTORY OF PRESENT ILLNESS: Ms. Douglas is a 77 year old female who presents today for a cardiovascular medicine follow-up visit.She has a past medical history significant for POTS, DM2, HTN, and HLD. She was last seen in clinic on February 15, 2022. At that time, she was feeling ok and was tolerating a lower dose of fludrocortisone. She was instructed to follow up in 6 months. Today, Mrs. Douglas reports that she has been feeling tired, but has had no new cardiac symptoms. Shehas not been sleeping well due to restless legs. Will be traveling to [place]. From a cardiovascular perspective, pt continues to do well and specifically denies any CP, SOB, palpitations, syncope, orthopnea, LE edema, focal neuro sx, post-prandial abdominal pain, or claudication. PAST CARDIAC HISTORY: SEE HPI PAST MEDICAL HISTORY Diagnosis Date Carpal tunnel syndrome Diverticulosis of colon (without mention of hemorrhage) Hypotension Localized osteoarthrosis not specified whether primary or secondary, hand Mastodynia Other chronic sinusitis Type II or unspecified type diabetes mellitus without mention of complication, uncontrolled Vertigo Current workup PAST SURGICAL HISTORY Procedure Laterality Date ARTHROSCOPY KNEE DIAGNOSTIC W/WO SYNOVIAL BX SPX Left Arthroscopy, knee BIOPSY BREAST OPEN INCISIONAL 1998 needle localization right breast BIOPSY BREAST OPEN INCISIONAL 1996 right breast CARPAL TUNNEL right LAPS ABD PRTM&OMENTUM DX W/WO SPEC BR/WA SPX Laparoscopy TOTAL ABDOMINAL HYSTERECT W/WO RMVL TUBE OVARY 1992 SOCIAL HISTORY Social History Tobacco Use Smoking status: Never Smokeless tobacco: Never Vaping Use Vaping Use: Never used Substance Use Topics Alcohol use: Not Currently Drug use: No Comment: denies tx for drug/alcohol abuse in the past. ALLERGIES: ALLERGIES Allergen Reactions Asa [Salicylates] causes platelet disfunction Aspirin Unknown, Other: See Comments Levaquin [Levofloxa* Rash, Other: See Comments Per pt feels like she on fire Avelox [Moxifloxaci* Intolerance C/O burning feeling on skin MEDICATIONS: blood sugar diagnostic (BLOOD GLUCOSE TEST) test strip Use as instructed to check blood glucose daily. Dx: E11.49 not on insulin Lancets lancets Use as instructed to check blood sugar daily. Dx: E11.49 not on insulin Blood-Glucose Meter Use as directed to check BG daily. Dx: E11.49 not on insulin semaglutide (OZEMPIC) 0.25 mg or 0.5 mg(2 mg/1.5 mL) pen ITake 0.5 mg q weekly metFORMIN ER (GLUCOPHAGE XR) 500 mg 24 hr tablet Take 1 tab twice daily with meals gabapentin (NEURONTIN) 300 mg capsule TAKE 3 CAPSULES EVERY DAY AT BEDTIME pravastatin (PRAVACHOL) 20 mg tablet Take 1 tablet by mouth daily at bedtime. ergocalciferol 50,000 unit capsule (VITAMIN D2, DRISDOL) TAKE 1 CAPSULE ONE TIME WEEKLY citalopram (CELEXA) 20 mg tablet Take 20 mg by mouth once daily. fludrocortisone (FLORINEF) 0.1 mg tablet Take 0.5 tablets by mouth once daily. clonazePAM (KLONOPIN) 0.5 mg tablet Take 1 tablet by mouth as needed. For restless leg syndrome loratadine (CLARITIN) 10 mg tablet Take 10 mg by mouth once daily. fluticasone (FLONASE) 50 mcg/actuation nasal spray Use 2 Sprays in each nostril twice daily. pen needle, diabetic (COMFORT EZ PEN NEEDLES) 33 gauge x 5/16 ndle To inject weekly esomeprazole (NEXIUM) 20 mg capsule Take 1 capsule by mouth DAILY (6 AM). MULTIVITAMIN (MULTI-DAY ORAL) Take by mouth once daily. calcium carbonate 600 mg-cholecalciferol 200 units (CALCIUM 600 + D,3,) 600 mg(1,500mg) -200 unit tab Take 1 tablet by mouth once daily. REVIEW OF SYSTEMS: POSITIVES IN BOLD GENERAL: Negative for: Weight loss or gain, Fever or Chills, Weakness and Sleep difficulties. HEENT: Negative for: Headache, Impaired Vision, Glasses, Hearing Impairment, Ringing in Ears, Nosebleeds, Poor dental care, Bleeding Gums, Dentures NECK: Negative for: Swelling, Pain, Stiffness CARDIOVASCULAR: SEE HPI RESPIRATORY: Negative for: Cough, Blood in Sputum, Shortness of breath, Wheezing, Apnea GASTROINTESTINAL: Negative for: Trouble swallowing, Heartburn, Change in bowel habits, Blood in stool, Dark black stools MUSCULOSKELETAL: Negative for: Muscle or joint pain, Stiffness, Joint swelling NEUROLOGIC/PSYCHIATRIC: Negative for: Weakness, Paralysis, Numbness, Tingling, Tremor, Nervousness,Depressed mood, Memory loss SKIN: Negative for: Rashes, Itching HEMATOLOGICAL/LYMPHATIC: Negative for: Easy bruising , Easy bleeding ENDOCRINE: Negative for: Heat or cold intolerance, Excessive sweating, Frequent urination, Frequentthirst PHYSICAL EXAMINATION: POSITIVES IN BOLD BP 108/64 Pulse 80 Resp 12 Ht 172.7 cm (5' 8 ) Wt 72.6 kg (160 lb) SpO2 98% BMI 24.33 kg/m General: Well appearing, in no acute distress. Skin: No clubbing, no cyanosis. Eyes: Extra ocular movements intact Oropharynx: Teeth in good repair. Neck: No jugular venous distention, no carotid bruits, carotids have a normal upstroke, no palpablethyromegaly. Lungs: Clear to auscultation bilaterally, no wheezing or rhonchi. Heart: Regular rhythm, PMI not displaced, S1, S2 normal, no S3, no S4, no heaves, no rub and no murmur. Abdomen: Soft, nontender, bowel sounds normal, no palpable organomegaly, no bruits. Extremities: No peripheral edema . Grade 2/4 distal pulses bilaterally. Neuro: Oriented to person, place and time, alert, cooperative, gait coordinated. CARDIOVASCULAR MEDICINE TESTING: Electrocardiogram: August 03, 2022 I have personally reviewed the Electrocardiogram. LABS Component Latest Ref Rng & Units 05/21/2022 Protein, Total 6.3 - 8.0 g/dL 6.4 Albumin 3.9 - 4.9 g/dL 4.1 Calcium 8.5 - 10.2 mg/dL 9.5 Bilirubin, Total 0.2 - 1.3 mg/dL 0.3 Alkaline Phosphatase 34 - 123 U/L 98 AST 13 - 35 U/L 22 ALT 7 - 38 U/L 25 Glucose 74 - 99 mg/dL 114 (H) BUN 7 - 21 mg/dL 12 Creatinine 0.58 - 0.96 mg/dL 1.04 (H) Sodium 136 - 144 mmol/L 144 Potassium 3.7 - 5.1 mmol/L 4.4 Chloride 97 - 105 mmol/L 108 (H) CO2 22 - 30 mmol/L 27 Anion Gap 9 - 18 mmol/L 9 eGFR >=60 mL/min/1.73m 56 (L) Cholesterol, Total <200 mg/dL 149 Triglyceride <150 mg/dL 218 (H) HDL Cholesterol >39 mg/dL 39 (L) Non HDL Cholesterol <130 mg/dL 110 Fasting Time hrs 12 VLDL Cholesterol <30 mg/dL 44 (H) TC:HDL Ratio <5.10 3.82 LDL Cholesterol <100 mg/dL 66 LDL:HDL Ratio <2.54 1.69 Creatinine, Ur Random (UCRR) 20.0 - 300.0 mg/dL 76.7 Albumin, Urine Random mg/L <12.0 Albumin/Creat Ratio <30 mg/g <16 Hemoglobin A1C 4.3 - 5.6 % 6.4 (H) Estimated Average Glucose mg/dL 137 TSH 0.270 - 4.200 mIU/L 6.590 (H) Last 4 BP Last 4 Encounter BP Readings: Date: BP: 08/03/2022 108/64 05/24/2022 101/57 02/15/2022 120/62 11/18/2021 99/56 Creatinine Date Value Ref Range Status 05/21/2022 1.04 (H) 0.58 - 0.96 mg/dL Final 02/15/2022 0.95 0.58 - 0.96 mg/dL Final 11/11/2021 1.06 (H) 0.58 - 0.96 mg/dL Final 2021 1.08 (H) 0.58 - 0.96 mg/dL Final IMPRESSION: Ms. Douglas is a 77 year old female who has a past medical history significant for POTS, DM2, HTN, and HLD. # Hypotension/orthostatic hypotension - BP today 108/64 - Has discontinued fludrocortisone # Dizziness/unsteadiness - recurring - No changes in symptoms PLAN AND RECOMMENDATIONS: - Continue current medical regimen - RTC in 6 months I personally interviewed, confirmed and edited the above information if obtained by others. CONTACT INFORMATION: Scribe Attestation: By signing my name below, I, Rock Dye, Research Coordinator, attest that this documentation hasbeen prepared under the direction and in the presence of Dr. Da King MD. Electronically Signed:Rock Dye, Research Coordinator, payton, August 03, 2022 1:42 PM Provider Attestation: I, Da King MD, personally performed the services described in this documentation. All medical record entries made by the scribe were at my direction and in my presence. I have reviewed the chart and discharge instructions (if applicable) and agree that the record reflects my personal performance and is accurate and complete. Electronically Signed: Da King MD. August 03, 2022 Da King M.D., [facility] Section Head, Cardiovascular Imaging [facility] Department of Cardiovascular Medicine [facility] Desk [id number] [address] Office - [phone] extension [phone] Office Appointments: [phone] -[phone] extension [phone] documented in this encounterWilson Health03-23-2023 Miscellaneous Notes* Telephone Encounter - Edith Knott Ma - 07/01/2022 2:53 PM EDT Medicare Part B Detailed Written Order form for lancets completed by provider and [facility]. documented in this encounterWilson Health03-16-2023 Miscellaneous Notes* Telephone Encounter - Juanita Beltran Nuclear Power Reactor Operator - 06/24/2022 9:[address] notes to [facility]. Successfully transmitted to [phone] Juanita Beltran [employer] [place] [id number] documented in this encounterWilson Health03-13-2023 Evaluation note* Encounter Date Diagnosis Assessment Notes Treatment Notes Treatment Clinical Notes Jun, Abnormal bleeding time (ICD-10 - R79.1) [facility] Other 03-07-2023 Evaluation note* Encounter Date Diagnosis Assessment Notes Treatment Notes Treatment Clinical Notes Jun, Cough (ICD-10 - R05.9) [facility] Other 03-06-2023 Evaluation note* Encounter Date Diagnosis Assessment Notes Treatment Notes Treatment Clinical Notes Jun, Unilateral primary o steoarthritis of first carpometacarpal joint, left hand (ICD-10 - M18.12) , We performed a cortisone injection into the CMC joint under sterile technique. The patient tolerated this well without complication. We discussed that the finger may feel numb and tingle for hours after this injection. Jun,Unilateral primary osteoarthritis of first carpometacarpal joint, right hand (ICD-10 - M18.11), We performed a cortisone injection into the CMC joint under sterile technique. The patient tolerated this well without complication. We discussed that the finger may feel numb and tingle for hours a fter this injection. Jun,arpal tunnel syndrome, left (ICD-10 - G56.02), We performed a cortisone injection into the carpal tunnel under sterile technique. The patient tolerated this well without complication. We discussed that the wrist/hand may feel numb and tingle for hours after this injection. Jun, arpal tunnel syndrome, right (ICD-10 - G56.01), We performed a cortisone injection into the carpal tunnel under sterile technique. The patient tolerated this well without complication. We discussed that the wrist/hand may feel numb and tingle for hours after this injection. [facility] Other 03-01-2023 Miscellaneous Notes* Telephone Encounter - Jamil ORONA - 06/09/2022 10:51 AM EST Received CGM form from [facility] ,sent to to review and signed . documented in this encounterWilson Health02-23-2023 Miscellaneous Notes* Telephone Encounter - Tiara Skaggs RN - 06/03/2022 1:39 PM EST Dwo for one touch delica, test strips, and lancets from [facility] received, completed form placed inKarl Cook's in box for review and signature documented in this encounterWilson Health02-17-2023 Miscellaneous Notes* Telephone Encounter - Edith Knott Ma - 05/28/2022 1:21 PM EST Pharmacy updated. Requested Prescriptions Pending Prescriptions Disp Refills blood sugar diagnostic (BLOOD GLUCOSE TEST) test strip 100 Each 2 Sig: Use as instructed to check blood glucose daily. Dx: E11.49 not on insulin Lancets lancets 100 Each 2 Sig: Use as instructed to check blood sugar daily. Dx: E11.49 not on insulin Blood-Glucose Meter 1 Each 1 Sig: Use as directed to check BG daily. Dx: E11.49 not on insulin Please review and advise. Edith Knott Ma * Telephone Encounter - Marcela Mercy - 05/28/2022 9:42 AM EST Hola Cao Stella called today. : 1945 Allergies: Asa [Salicylates], Aspirin, Levaquin [Levofloxacin], and Avelox [Moxifloxacin Hcl] (home) [phone] (cell) Reason for call: robbie told patient the orders for the glucose meter, lancets and test strips need to go to [facility] and must be Medicare Part B. Patient last appointment: 05/19/2022 The patients preferred pharmacy has been captured for this encounter? no Marcela Madrid documented in this encounterWilson Health02-16-2023 Evaluation note* Encounter Date Diagnosis Assessment Notes Treatment Notes Treatment Clinical Notes May, Cough (ICD-10 - R05.9) The patient states she is feeling better although cough persists.Lung sounds have improved comparedto previous encounter. Chest x-ray performed 05/10/22 show no acute pulmonary abnormalities. I am in agreement she continue the Hycodan cough syrup and may take this during the day as long as she does not drive.A sample and instruction of Trelegy provided. May,Type 2 diabetes mellitus with complications (ICD-10 - E11.8) The patient encouraged to continue following with appellate court judge as scheduled. Hgb a1c appears to be stable upon review of blood work results ordered by endocrinology. 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 May,Hyperlipidemia (ICD-10 - E78.5) Pt is to continue with the above medication and continue watching their diet and increase their exercise regimen. May,Elevated TSH (ICD-10 - R79.89) The patient is following with endocrinology, I did review blood work results noting elevated TSH levels. Per patient blood work has been ordered to repeat in three months. [facility] Other [id number] Miscellaneous Notes* Telephone Encounter - Lizett Wang RN - 05/27/2022 11:58 AM EST Received office notes from Carlos Flood. Placed in Karl's folder. documented in this encounterWilson Health02-13-2023 Instructions* Patient Instructions* Karl Cook APRN.CNP - 05/24/2022 1:28 PM EST Continue Ozempic 0.5 mg once weekly Continue Metformin- if you start to have diarrhea, then go ahead and stop and do not restart. Call this number to see if there is a program for the Ozempic: By phone: [phone] ( ) Tuesday-Tuesday, 8:00am-11:00pm, and Tuesday, 11:00am-7:00pm ET. Follow up in [address] Oneill Repeat thyroid levels in 3 months- hold biotin for 3-5 days prior to your test. documented in this encounterWilson Health02-13-2023 History of Present illness Narrative* Karl Cook APRN.CNP - 05/24/2022 1:00 PM EST Endocrinology Follow-up History of Present Illness Hola Douglas is a 77 year old female presents today for follow up of DM Type 2. New patient to me; LV with Dr Oneill- 11/2021: consider holding metformin to see if it improves nausea and dizziness; She reports Ozempic is expensive, but she does not think she would qualify for PAP PMH significant for: PAST MEDICAL HISTORY Diagnosis Date Carpal tunnel syndrome Diverticulosis of colon (without mention of hemorrhage) Hypotension Localized osteoarthrosis not specified whether primary or secondary, hand Mastodynia Other chronic sinusitis Type II or unspecified type diabetes mellitus without mention of complication, uncontrolled Vertigo Current workup Date of Diagnosis: age 61 Last HbA1c: Hemoglobin A1C (%) Date Value 05/21/2022 6.4 11/11/2021 6.2 2021 6.7 10/24/2020 6.7 05/01/2020 6.4 10/18/2019 6.4 04/06/2019 6.3 Complications Microvascular: neuropathy, CKD stage 3 Macrovascular: none Health Maintenance Topics Topic Date Due DILATED RETINAL EXAM 05/23/2020 Physical Activity: limited Diet: no specific regimen; eats 3 meals per day SMBG Frequency of Monitoring:daily in the morning BG Values: 99-120 Hypoglycemia Frequency: Current DM Related Medications: Current Medications 05/24/2022 DIABETES THERAPIES Medication Dosage Pharm Subclass metFORMIN ER (GLUCOPHAGE XR) 500 mg 24 hr tablet Take 1 tab twice daily with meals Insulin ResponseEnhancers - Biguanides semaglutide (OZEMPIC) 0.25 mg or 0.5 mg(2 mg/1.5 mL) pen ITake 0.5 mg q weekly Antihyperglycemic - Glucagon-Like Peptide-1 (GLP-1) Receptor Agonists CARDIOVASCULAR Medication Dosage Pharm Subclass pravastatin (PRAVACHOL) 20 mg tablet Take 1 tablet by mouth daily at bedtime. Antihyperlipidemic - HMG CoA Reductase Inhibitors (statins) OTHER Medication Dosage Pharm Subclass calcium carbonate 600 mg-cholecalciferol 200 units (CALCIUM 600 + D,3,) 600 mg(1,500mg) -200 unit tab Take 1 tablet by mouth once daily. Minerals and Electrolytes - Calcium Replacement/Vitamin D Combinations citalopram (CELEXA) 20 mg tablet Take 20 mg by mouth once daily. Antidepressant - Selective Serotonin Reuptake Inhibitors (SSRIs) clonazePAM (KLONOPIN) 0.5 mg tablet Take 1 tablet by mouth as needed. For restless leg syndrome Antianxiety Agent - Benzodiazepines ergocalciferol 50,000 unit capsule (VITAMIN D2, DRISDOL) TAKE 1 CAPSULE ONE TIME WEEKLY Vitamins - D Derivatives esomeprazole (NEXIUM) 20 mg capsule Take 1 capsule by mouth DAILY (6 AM). Gastric Acid Secretion [employer] - Proton Pump Inhibitors (PPIs) fludrocortisone (FLORINEF) 0.1 mg tablet Take 0.5 tablets by mouth once daily. Mineralocorticoids fluticasone (FLONASE) 50 mcg/actuation nasal spray Use 2 Sprays in each nostril twice daily. Nasal Corticosteroids gabapentin (NEURONTIN) 300 mg capsule TAKE 3 CAPSULES EVERY DAY AT BEDTIME Anticonvulsant - VALENTIN Analogs loratadine (CLARITIN) 10 mg tablet Take 10 mg by mouth once daily. Antihistamines - 2nd Generation MULTIVITAMIN (MULTI-DAY ORAL) Take by mouth once daily. Multivitamins pen needle, diabetic (COMFORT EZ PEN NEEDLES) 33 gauge x 5/16 ndle To inject weekly Medical Supplies and DME - Insulin [place]-Syringes and Admin Supplies Past History, Medications, Allergies PAST SURGICAL HISTORY Procedure Laterality Date ARTHROSCOPY KNEE DIAGNOSTIC W/WO SYNOVIAL BX SPX Left Arthroscopy, knee BIOPSY BREAST OPEN INCISIONAL 1998 needle localization right breast BIOPSY BREAST OPEN INCISIONAL 1996 right breast CARPAL TUNNEL right LAPS ABD PRTM&OMENTUM DX W/WO SPEC BR/WA SPX Laparoscopy TOTAL ABDOMINAL HYSTERECT W/WO RMVL TUBE OVARY 1992 ALLERGIES Allergen Reactions Asa [Salicylates] causes platelet disfunction Aspirin Unknown, Other: See Comments Levaquin [Levofloxa* Rash, Other: See Comments Per pt feels like she on fire Avelox [Moxifloxaci* Intolerance C/O burning feeling on skin FAMILY HISTORY Problem Relation Age of Onset Dementia Mother Coronary Artery Disease Father COPD Father Breast Cancer Other no known family h/o breast cancer Cancer Other maternal grandmother with h/o ovarian cancer Social History Tobacco Use Smoking status: Never Smokeless tobacco: Never Vaping Use Vaping Use: Never used Substance Use Topics Alcohol use: Not Currently Drug use: No Comment: denies tx for drug/alcohol abuse in the past. Review of Systems Answers submitted by the patient for this visit: Endocrine Review of Systems (Submitted on 05/19/2022) Fatigue: Yes Night Sweats: No Recent Unintentional Weight Change: No Skin Color Changes: No Post-Nasal Drip: Yes Thyroid Pain (lower neck): No Trouble Swallowing: Yes Vision Disturbance: No Chest Pain: No Leg Swelling: Yes Blood Clots?: No Leg Pain while walking?: Yes Difficulty Breathing?: No Heartburn: Yes Nausea: Yes Vomiting?: No Diarrhea: Yes Constipation: Yes Abdominal Pain: Yes Bone Pain?: No Muscle Aches: Yes Muscle Weakness: Yes Joint Pain or Stiffness: Yes Headaches: No Dizziness: Yes Numbness?: Yes Urgency to Urinate?: Yes Increased Urination?: No Slow or Small Urine Stream?: Yes Have your menstrual cycles stopped?: Yes Flushing?: No Hot Flashes?: No Increased Thirst: Yes Change in Body Hair?: Yes Cold Intolerance: Yes Heat Intolerance?: Yes Physical examination BP 101/57 Pulse 98 Wt 75.1 kg (165 lb 8 oz) BMI 25.16 kg/m General appearance: Well appearing, alert, in no acute distress, well-hydrated, well nourished. Skin: Skin color, texture, turgor normal, no suspicious rashes or lesions HEART: normal rate LUNGS: unlabored, normal respiratory rate EXTREMITIES No deformities, No skin discoloration and No edema NEURO: Speech normal, mental status intact, no tremor noted. Feet:Shoes and socks removed, foot deformity noted bilaterally- high arches and hammer toes, significant decrease in sensitive to monofilament bilaterally worse in left foot, and calluses noted bilaterally Previous Laboratory Results LABS Glucose (mg/dL) Date Value 05/21/2022 114 02/15/2022 155 11/11/2021 101 2021 120 12/24/2020 111 10/24/2020 138 Potassium (mmol/L) Date Value 05/21/2022 4.4 2021 4.5 Sodium (mmol/L) Date Value 05/21/2022 144 02/15/2022 145 11/11/2021 143 2021 141 12/24/2020 141 10/24/2020 143 Chloride (mmol/L) Date Value 05/21/2022 108 02/15/2022 104 11/11/2021 105 2021 105 12/24/2020 104 10/24/2020 107 CO2 (mmol/L) Date Value 05/21/2022 27 02/15/2022 28 11/11/2021 26 2021 26 12/24/2020 26 10/24/2020 25 Creatinine (mg/dL) Date Value 05/21/2022 1.04 02/15/2022 0.95 11/11/2021 1.06 2021 1.08 12/24/2020 1.05 10/24/2020 1.00 BUN (mg/dL) Date Value 05/21/2022 12 02/15/2022 13 11/11/2021 16 2021 15 12/24/2020 14 10/24/2020 11 Anion Gap (mmol/L) Date Value 05/21/2022 9 02/15/2022 13 11/11/2021 12 2021 10 12/24/2020 11 10/24/2020 11 Calcium (mg/dL) Date Value 2021 9.5 12/24/2020 10.1 10/24/2020 9.0 Calcium, Total (mg/dL) Date Value 05/21/2022 9.5 02/15/2022 9.5 11/11/2021 9.9 eGFR- (no units) Date Value 2021 >60 12/24/2020 >60 10/24/2020 >60 eGFR-All Other Races (.) Date Value 2021 50 12/24/2020 51 10/24/2020 54 Estimated Glomerular Filtration Rate (mL/min/1.73m ) Date Value 05/21/2022 56 02/15/2022 63 11/11/2021 55 ALT (U/L) Date Value 05/21/2022 25 11/11/2021 38 2021 52 12/24/2020 38 10/24/2020 27 TSH Date Value Ref Range Status 05/21/2022 6.590 (H) 0.270 - 4.200 mIU/L Final 11/11/2021 3.990 0.270 - 4.200 mIU/L Final 2021 3.480 0.270 - 4.200 uU/mL Final Impression/Recommendations IMPRESSION Hola Douglas is a 77 year old here for evaluation of DM Type 2 complicated by hypertension, hyperlipidemia, nephropathy, and peripheral neuropathy RECOMMENDATIONS: 1. Glycemic control: Target HbA1C is less than 7.0% per ADA guidelines. A1C remains well controlled without hypoglycemia. Discussed cost issues with Ozempic, she would likely not qualify for PAP. She was given [facility] phone number to see if she would qualify for another program. Regardless of cost, she would like to continue Ozempic for now. She will let the office know if she can no longer afford the medication. Regarding the Metformin- she has had intermittent bouts of diarrhea and has stopped metformin in the past, since resuming it, she has not had any issues. She is asking about kidney protective medications- but due to hypotension, SGLT2i and ACEi would becontraindicated at this time. Plan Continue Ozempic 0.5 mg once weekly Continue Metformin- if you start to have diarrhea, then go ahead and stop and do not restart. Follow up in [address] Oneill Repeat thyroid levels in 3 months- hold biotin for 3-5 days prior to your test. The patient was reminded to check their blood glucose as directed and to record the data in a logbook. This patient was advised to bring their logbook to each office visit. I recommended at least 150minutes per week of moderate physical activity, such as walking and to reduce carbohydrates and overall caloric intake. 2. Hypertension/BP control: BP goal for patients with diabetes is 130/80. -- This patient is at target on their current regimen. 3. Lipids: Target LDL cholesterol in patients with diabetes is less than 100, less than 70 if patient has overt CVD. Several studies have shown cardiovascular benefits of statin therapy in all patients with diabetes over age 40 with at least 1 CVD risk factor. Cholesterol, Total Date Value Ref Range Status 05/21/2022 149 <200 mg/dL Final Comment: <200 mg/dL, Desirable 200-239 mg/dL, Borderline high >239 mg/dL, High HDL Cholesterol Date Value Ref Range Status 05/21/2022 39 (L) >39 mg/dL Final Comment: 40-59 mg/dL, Acceptable >59 mg/dL, High: Negative risk factor for coronary heart disease <40 mg/dL, Low: Positive risk factor for coronary heart disease LDL Cholesterol Date Value Ref Range Status 05/21/2022 66 <100 mg/dL Final Comment: <100 mg/dL, Optimal 100-129 mg/dL, Near optimal/above optimal 130-159 mg/dL, Borderline high 160-189 mg/dL, High >189 mg/dL, Very high Secondary prevention optimal LDL Cholesterol levels are recommended to be < 70 mg/dL Triglyceride Date Value Ref Range Status 05/21/2022 218 (H) <150 mg/dL Final Comment: <150 mg/dL, Normal 150-199 mg/dL, Borderline high 200-499 mg/dL, High >499 mg/dL, Very high -- This patient is on statin therapy. 4. Nephropathy screening: Annual measurement of urine albumin excretion is recommended in patients with diabetes. Albumin/Creat Ratio (mg/g) Date Value 05/21/2022 <16 2021 Not calculated Protein, Urine (mg/dL) Date Value 11/10/2018 30 (A) Creatinine, Ur Random (UCRR) (mg/dL) Date Value 05/21/2022 76.7 2021 151.7 -- This patient does not have microalbuminuria and is not on COREY-I or ARB therapy. 5. Ophthalmology: Annual dilated eye exams are recommended for patients with type 1 and type 2 diabetes. -- This patient is not up to date with their annual eye exam and was referred to an ophthalmologistat this visit. Patient to continue to follow up with his PCP and with other consultants regarding his other medical problems. Any part of this document that has been added/copied & pasted from other documents has been reviewed for accuracy and updated as appropriate at the time of the patient encounter I spent a total of 39 minutes on the date of the service which included preparing to see the patient, [id number] patient care, completing clinical documentation, obtaining and/or reviewing separately obtained history, performing a medically appropriate examination, counseling and educating the pat ient/family/caregiver, ordering medications, tests, or procedures, independently interpreting results (not separately reported), and communicating results to the patient/family/caregiver. Karl Cook APRN.CNP documented in this encounterWilson Health02-09-2023 Miscellaneous Notes* Telephone Encounter - Edith Knott Ma - 05/20/2022 2:14 PM EST Patient notified on voicemail. * Telephone Encounter - Karl Cook APRN.CNP - 05/20/2022 10:34 AM EST Orders for fasting blood work and urine test placed. Please notify patient * Telephone Encounter - Dinorah ORONA - 05/19/2022 8:10 AM EST Hola Cao Stella called today. : 1945 Allergies: Asa [Salicylates], Aspirin, Levaquin [Levofloxacin], and Avelox [Moxifloxacin Hcl] (home) [phone] (cell) Reason for call: Patient calling in asking if you would like her to complete labs prior to appt. Please call patient back. Patient last appointment: Visit date not found The patients preferred pharmacy has been captured for this encounter? no Dinorah ORONA documented in this encounterWilson Health01-30-2023 Evaluation note* Encounter Date Diagnosis Assessment Notes Treatment Notes Treatment Clinical Notes Apr, Mastoiditis (ICD-10 - H70.90) CT head/brain reviewed with no signs of tumors, mass, herniations, or abnormalities with her sinuses therefore I do not believe this is a mastoiditis and rather is likely musculoskeletal. Apr,ough (ICD-10 - R05.9) Patient is hoarse, her cough is productive, deep, mildly audible wheezing and harsh lung sounds noted upon auscultation. In house covid, flu, strep, and rsv tests obtained with negative results. She has had a cough off and on throughout the whole month that has worsened this past weekend. I did suggest she get a chest xray and blood work to rule out any pneumonia. She is agreeable. Order provided. I did provide another round of a zpak and medrol dose pack. Encouraged her to use her nebulizer machine as well. Apr,Sore throat (ICD-10 - J02.9) Patient does have a mild sore throat, in house strep test performed with negative results. Apr,Impacted cerumen of right ear (ICD-10 - H61.21) Upon examination, the right ear continues to be impacted with cerumen. She has been using OTC debrox drops but has not tried flushing this out on her own. [facility] Other 01-26-2023 Evaluation note* Encounter Date Diagnosis Assessment Notes Treatment Notes Treatment Clinical Notes Apr, Headache (ICD-10 - R51.9) Apr,Lightheadedness (ICD-10 - R42) Apr,Right ear pain (ICD-10 - H92.01) Apr,Mastoiditis (ICD-10 - H70.90) [facility] Other 01-24-2023 Evaluation note* Encounter Date Diagnosis Assessment Notes Treatment Notes Treatment Clinical Notes Apr, Headache (ICD-10 - R51.9) Apr,Lightheadedness (ICD-10 - R42) Apr,Mastoiditis (ICD-10 - H70.90) Apr,Right ear pain (ICD-10 - H92.01) [facility] Other 01-23-2023 Evaluation note* Encounter Date Diagnosis Assessment Notes Treatment Notes Treatment Clinical Notes Apr, Mastoiditis (ICD-10 - H70.90) [facility] Other 01-23-2023 Evaluation note* Encounter Date Diagnosis Assessment Notes Treatment Notes Treatment Clinical Notes Apr, Headache (ICD-10 - R51.9) Head/brain CT ordered. I advised patient to take tylenol as needed for pain. Apr,Mastoiditis (ICD-10 - H70.90) Upon discussion, I do believe this is a mastoiditis of right side. Therefore, we will order a brain/head CT to rule out abnormalities. We will start the patient on the above antibiotic. Apr,Right ear pain (ICD-10 - H92.01) Head/brain CT ordered. Patient is to take Tylenol as needed for pain. Apr,Impacted cerumen (ICD-10 - H61.20) Noted upon examination of the right ear. Patient is to start using debrox OTC, if patient is unableto get wax out I will remove. 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 Mar,hills (ICD-10 - R68.83) [facility] Other 12-09-2022 Evaluation note* Encounter Date Diagnosis Assessment Notes Treatment Notes Treatment Clinical Notes Mar, Unilateral primary o steoarthritis of first carpometacarpal joint, left hand (ICD-10 - M18.12) We performed a cortisone injection into the CMC joint under sterile technique. The patient tolerated this well without complication. We discussed that the finger may feel numb and tingle for hours after this injection. Mar,Unilateral primary osteoarthritis of first carpometacarpal joint, right hand (ICD-10 - M18.11)We performed a cortisone injection into the CMC joint under sterile technique. The patient tolerated this well without complication. We discussed that the finger may feel numb and tingle for hours after this injection. Mar,arpal tunnel syndrome, left (ICD-10 - G56.02) Mar,arpal tunnel syndrome, right (ICD-10 - G56.01) [facility] Other 11-07-2022 History of Present illness Narrative* Da King MD - 02/15/2022 9:24 AM EST Images from the original note were not included. [facility] [facility] Department of Cardiovascular Medicine SECTION OF CARDIOVASCULAR IMAGING OUTPATIENT VISIT DATE February 15, 2022 OUTPATIENT VISIT TYPE ESTABLISHED PRIMARY CARE PHYSICIAN: Erich Gillis DO [address] [place] [phone] CHIEF COMPLAINT: CV health management visit. HISTORY OF PRESENT ILLNESS: Ms. Douglas is a 76 year old female who presents today for a cardiovascular medicine follow-up visit.She has a past medical history significant for POTS, DM2, HTN, and HLD. She was last seen in clinic on 03/02/2021. At that time, she complained of persistently low BP as well as dizziness/poor balance. She was instructed to start fludrocortisone 0.1 mg. Today, Ms. Douglas reports that she has decreased fludrocortisone to half a 0.1 mg tablet daily as she was not tolerating the full dose well. Has increased dietary salt intake. From a cardiovascular perspective, pt continues to do well and specifically denies any CP, SOB, palpitations, syncope, orthopnea, LE edema, focal neuro sx, post-prandial abdominal pain, or claudication. PAST CARDIAC HISTORY: SEE HPI PAST MEDICAL HISTORY Diagnosis Date Carpal tunnel syndrome Diverticulosis of colon (without mention of hemorrhage) Hypotension Localized osteoarthrosis not specified whether primary or secondary, hand Mastodynia Other chronic sinusitis Type II or unspecified type diabetes mellitus without mention of complication, uncontrolled Vertigo Current workup PAST SURGICAL HISTORY Procedure Laterality Date ARTHROSCOPY KNEE DIAGNOSTIC W/WO SYNOVIAL BX SPX Left Arthroscopy, knee BIOPSY BREAST OPEN INCISIONAL 1998 needle localization right breast BIOPSY BREAST OPEN INCISIONAL 1996 right breast CARPAL TUNNEL right LAPS ABD PRTM&OMENTUM DX W/WO SPEC BR/WA SPX Laparoscopy TOTAL ABDOMINAL HYSTERECT W/WO RMVL TUBE OVARY 1992 SOCIAL HISTORY Social History Tobacco Use Smoking status: Never Smokeless tobacco: Never Vaping Use Vaping Use: Never used Substance Use Topics Alcohol use: Not Currently Drug use: No Comment: denies tx for drug/alcohol abuse in the past. ALLERGIES: ALLERGIES Allergen Reactions Asa [Salicylates] causes platelet disfunction Aspirin Unknown, Other: See Comments Levaquin [Levofloxa* Rash, Other: See Comments Per pt feels like she on fire Avelox [Moxifloxaci* Intolerance C/O burning feeling on skin MEDICATIONS: citalopram (CELEXA) 20 mg tablet Take 20 mg by mouth once daily. fludrocortisone (FLORINEF) 0.1 mg tablet Take 0.5 tablets by mouth once daily. clonazePAM (KLONOPIN) 0.5 mg tablet Take 1 tablet by mouth as needed. For restless leg syndrome loratadine (CLARITIN) 10 mg tablet Take 10 mg by mouth once daily. semaglutide (OZEMPIC) 0.25 mg or 0.5 mg(2 mg/1.5 mL) pen injector ITake 0.5 mg q weekly metFORMIN ER (GLUCOPHAGE XR) 500 mg 24 hr tablet Take 1 tab twice daily with meals fluticasone (FLONASE) 50 mcg/actuation nasal spray Use 2 Sprays in each nostril twice daily. pravastatin (PRAVACHOL) 20 mg tablet Take 1 tablet by mouth daily at bedtime. gabapentin (NEURONTIN) 300 mg capsule TAKE 3 CAPSULES EVERY DAY AT BEDTIME ergocalciferol 50,000 unit capsule (VITAMIN D2, DRISDOL) TAKE 1 CAPSULE ONE TIME WEEKLY pen needle, diabetic (COMFORT EZ PEN NEEDLES) 33 gauge x 5/16 ndle To inject weekly esomeprazole (NEXIUM) 20 mg capsule Take 1 capsule by mouth DAILY (6 AM). MULTIVITAMIN (MULTI-DAY ORAL) Take by mouth once daily. calcium carbonate 600 mg-cholecalciferol 200 units (CALCIUM 600 + D,3,) 600 mg(1,500mg) -200 unit tab Take 1 tablet by mouth once daily. REVIEW OF SYSTEMS: POSITIVES IN BOLD GENERAL: Negative for: Weight loss or gain, Fever or Chills, Weakness and Sleep difficulties. HEENT: Negative for: Headache, Impaired Vision, Glasses, Hearing Impairment, Ringing in Ears, Nosebleeds, Poor dental care, Bleeding Gums, Dentures NECK: Negative for: Swelling, Pain, Stiffness CARDIOVASCULAR: SEE HPI RESPIRATORY: Negative for: Cough, Blood in Sputum, Shortness of breath, Wheezing, Apnea GASTROINTESTINAL: Negative for: Trouble swallowing, Heartburn, Change in bowel habits, Blood in stool, Dark black stools MUSCULOSKELETAL: Negative for: Muscle or joint pain, Stiffness, Joint swelling NEUROLOGIC/PSYCHIATRIC: Negative for: Weakness, Paralysis, Numbness, Tingling, Tremor, Nervousness,Depressed mood, Memory loss SKIN: Negative for: Rashes, Itching HEMATOLOGICAL/LYMPHATIC: Negative for: Easy bruising , Easy bleeding ENDOCRINE: Negative for: Heat or cold intolerance, Excessive sweating, Frequent urination, Frequentthirst PHYSICAL EXAMINATION: POSITIVES IN BOLD BP 120/62 Pulse 70 Resp 12 Ht 172.7 cm (5' 8 ) Wt 75.8 kg (167 lb) SpO2 98% BMI 25.39 kg/m General: Well appearing, in no acute distress. Skin: No clubbing, no cyanosis. Eyes: Extra ocular movements intact Oropharynx: Teeth in good repair. Neck: No jugular venous distention, no carotid bruits, carotids have a normal upstroke, no palpablethyromegaly. Lungs: Clear to auscultation bilaterally, no wheezing or rhonchi. Heart: Regular rhythm, PMI not displaced, S1, S2 normal, no S3, no S4, no heaves, no rub and no murmur. Abdomen: Soft, nontender, bowel sounds normal, no palpable organomegaly, no bruits. Extremities: No peripheral edema . Grade 2/4 distal pulses bilaterally. Neuro: Oriented to person, place and time, alert, cooperative, gait coordinated. CARDIOVASCULAR MEDICINE TESTING: Electrocardiogram: February 15, 2022 SINUS RHYTHM WITH OCCASIONAL PREMATURE VENTRICULAR COMPLEXES NONSPECIFIC T WAVE ABNORMALITY ABNORMAL ECG I have personally reviewed the Electrocardiogram. LABS Component Latest Ref Rng & Units 02/15/2022 Glucose 74 - 99 mg/dL 155 (H) BUN 7 - 21 mg/dL 13 Creatinine 0.58 - 0.96 mg/dL 0.95 Sodium 136 - 144 mmol/L 145 (H) Potassium 3.7 - 5.1 mmol/L 3.8 Chloride 97 - 105 mmol/L 104 CO2 22 - 30 mmol/L 28 Anion Gap 9 - 18 mmol/L 13 Calcium 8.5 - 10.2 mg/dL 9.5 eGFR >=60 mL/min/1.73m 63 Last 4 BP Last 4 Encounter BP Readings: Date: BP: 02/15/2022 120/62 11/18/2021 99/56 11/11/2021 98/62 10/22/2021 116/67 Creatinine Date Value Ref Range Status 11/11/2021 1.06 (H) 0.58 - 0.96 mg/dL Final 2021 1.08 (H) 0.58 - 0.96 mg/dL Final 12/24/2020 1.05 (H) 0.58 - 0.96 mg/dL Final 10/24/2020 1.00 (H) 0.58 - 0.96 mg/dL Final IMPRESSION: Ms. Douglas is a 76 year old female who has a past medical history significant for POTS, DM2, HTN, and HLD. #Hypotension/orthostatic hypotension - BP today 120/62 - Improved with fludrocortisone, increased dietary salt, Na a little high today -reduce salt intakeagain - Continues to take citalopram #Dizziness/unsteadiness - recurring - Improved since previous visit, but she continues to have episodes of unsteadiness PLAN AND RECOMMENDATIONS: - Continue current medical regimen - RTC in 6 months I personally interviewed, confirmed and edited the above information if obtained by others. CONTACT INFORMATION: Scribe Attestation: By signing my name below, I, Rock Marnie, attest that this documentation has been prepared under the direction and in the presence of Dr. Da King MD. Electronically Signed:payton Ayala, February 15, 2022 9:24 AM Da King M.D., [facility] Section Head, Cardiovascular Imaging [facility] Department of Cardiovascular Medicine Heart and Vascular [facility] Desk [place] [address] Office - [phone] extension [phone] Office Appointments: [phone] -[phone] extension [phone] documented in this encounterWilson Health11-03-2022 Miscellaneous Notes* Telephone Encounter - Rosa Roberto RN - 02/11/2022 4:05 PM EDT Patient sending in blood pressure readings. Gayle Roberto RN documented in this encounterWilson Health10-27-2022 Evaluation note* Encounter Date Diagnosis Assessment Notes Treatment Notes Treatment Clinical Notes Jan, Diarrhea, unspecified type (ICD- 10 - R19.7) Patient does have episoded of diarrhea related to medication. There are times when she does developconstipation. This has been an ongoing maier to get an even ground with this. At the present time the diarrhea is controlled. 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 Blood sugars seem to be well controlled at this time. She is to continue with current meds Jan,nxiety and depression (ICD-10 - F41.8) Patient is doing well on the current medication regimen for the most part. She does have bouts of feeling down at times. She really does not have a reason for having these spells. States she does not like her physical size and this does bother her. She feels fat but years ago she did have some anorexia. Patient educated that as she ages her metabolism does slow down and the celexa does contribute to some weight gain and her DM also plays a part. I do not want to change meds at this time as she is stable for the most part. 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 Changes of season and different smells to trigger exacerbation Jan,Hypotension, unspecified hypotension type (ICD-10 - I95.9) Patient has been struggling with her low blood pressure again and may need to increase her florinefagain. She has been encouraged to contact her specialist at the [facility] to report her blood pressure readings Jan,estless leg syndrome (ICD-10 - G25.81) Patient has been using clonopin for her restless legs and I was hoping this medication could also benefit her anxiety. She has been using it as needed for the RLS and it does help. I have advised patient to check her bottle for refills. If she needs it to call. Requip was discussed as an option forRLS. This could be considered at some point if the the clonazepam does not work out. 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 Clonazepam to be used sparingly [facility] Other 10-26-2022 Miscellaneous Notes* Telephone Encounter - Tiara Skaggs RN - 02/03/2022 10:07 AM EDT [facility] form received, and placed in Dr Oneill's in box for review and signature documented in this encounterWilson Health10-21-2022 Instructions* Patient Instructions* Carlita Henley APRN.CNP - 01/29/2022 12:27 PM EDT Orthostatic Intolerance Conservative Measures Increased water intake (2-2.5 liters of water daily) Increased salt intake (3-5 grams daily) Compression stockings Exercise Medication Changes -Fludrocortisone 0.05 mg daily. Check your blood pressure daily and report back to myself or Sheryl Garza CNP in 2 weeks with update. Also, I have ordered a BMP to be drawn at the [facility] you for electrolyte monitoring with this medication. Orthostatic Workout There are videos /playlist/podcast to viewed and helped for exercises and wellness for POTS and Orthostatics Instructions:[email or web address] The nursing staff and medical assistants are a major part of YOUR TREATMENT TEAM and will be handling your phone calls, [employer] messages and inquiries, if any. Unless explicitly told otherwise at thetime of your office visit, your study results and ensuing treatment plans will be discussed during your follow-up appointment. If you do not have a follow-up appointment and wish to discuss any issues directly with me, please feel free to obtain one. In regards to blood work, testing, and radiology reports these are released automatically to the patients. We do not comment on most testing on [employer] in a message or commentary unless there is a concern. You will not receive a message from me of the result unless there is a specific concern of the result I need you to address further in care with us or your primary medical team. Make sure to check your my chart email or jose. As an international referral center for syncope, autonomic dysfunction, general neurology, headachecare, neuromuscular disease, and other related conditions, seeing patients from across the world, we do not have the resource of time or staffing to address inquiries for accommodations. As such, we do not provide or complete requests for work accommodations, FMLA, disability, or other such forms. We recommend seeking guidance through your primary care provider for these requests. We are happy toprovide our office notes from your visits and other tests or evaluations performed through our clinic, which can be made available upon request to assist you with this process. documented in this encounterWilson Health10-21-2022 History of Present illness Narrative* Carlita Henley APRN.CNP - 01/29/2022 11:00 AM EDT Images from the original note were not included. [facility] Established Patient Virtual Visit Today I had the opportunity to have a virtual visit with Hola Douglas is a 76 year old female. Patient presents with: Established Patient Last visit:10/22/2021 with Sheryl Garza CNP for orthostatic intolerance. Has had workup includingAutonomic reflex testing, a tilt table test, echo, zio. She has also been following with cardiologyand endocrinology for this concern. HPI/Interval History: She has been taking 0.1 mg florinef daily and has been sent to PT for vertigo. She has had improvement in symptoms since doing PT for vertigo. She had also temporarily stopped taking her metformin after having a bout of diarrhea lasting for 2 weeks. She has just recently restarted her metformin. She still performs exercises that her PT has had her doing. She notes that her episodes of orthostatic lightheadedness occur possibly once per week and she has had overall improvement in symptoms. She has taken her blood pressure during this virtual and it was 130/75 with a pulse of 64. She notes concern that it usually runs higher throughout the other days that she checks it. Reporting SBP 140's or higher. She did have a somewhat recent episode of lightheadedness that was constant throughout the day so she laid down that evening and the lightheadedness resolved. She thinks that her episode may have been triggered because she was getting up and down on a chair hanging curtains. She had also restarted her metformin around that time. She has not experienced an episode since. Denies loss of consciousness. She reports that her blood pressure was low that day, but it typically runs high now. Water: Tries to drink water and adds [place] to make it more tolerable. Drinks Gatorade. Has tried Propel but is not a fan of the taste. Salt: Has added salt to her food. Exercise: Has done PT exercises for Vertigo and found benefit. Continues those exercises and calf strengthening exercises at home. Compression: She has tried thigh high compression and found that she prefers knee high. The patient's prior records were reviewed including and lab testing, imaging, and procedures done since their last visit. Review of symptoms including constitutional, eyes, ENT, neck, respiratory, cardiovascular, GI, , musculoskeletal, hematologic, oncologic, endocrine, and psychiatric categories is unchanged unless specified above. No new details in the family history or social history were offered by the patient unless specifiedabove. Medications Reviewed clonazePAM (KLONOPIN) 0.5 mg tablet Take 1 tablet by mouth as needed. For restless leg syndrome fludrocortisone (FLORINEF) 0.1 mg tablet Take 1 tablet by mouth once daily. loratadine (CLARITIN) 10 mg tablet semaglutide (OZEMPIC) 0.25 mg or 0.5 mg(2 mg/1.5 mL) pen injector ITake 0.5 mg q weekly metFORMIN ER (GLUCOPHAGE XR) 500 mg 24 hr tablet Take 1 tab twice daily with meals fluticasone (FLONASE) 50 mcg/actuation nasal spray Use 2 Sprays in each nostril twice daily. pravastatin (PRAVACHOL) 20 mg tablet Take 1 tablet by mouth daily at bedtime. gabapentin (NEURONTIN) 300 mg capsule TAKE 3 CAPSULES EVERY DAY AT BEDTIME citalopram hydrobromide (CELEXA) 10 mg tablet Take 10 mg by mouth once daily. ergocalciferol 50,000 unit capsule (VITAMIN D2, DRISDOL) TAKE 1 CAPSULE ONE TIME WEEKLY pen needle, diabetic (COMFORT EZ PEN NEEDLES) 33 gauge x 5/16 ndle To inject weekly esomeprazole (NEXIUM) 20 mg capsule Take 1 capsule by mouth DAILY (6 AM). MULTIVITAMIN (MULTI-DAY ORAL) Take by mouth once daily. calcium carbonate 600 mg-cholecalciferol 200 units (CALCIUM 600 + D,3,) 600 mg(1,500mg) -200 unit tab Take 1 tablet by mouth once daily. Allergies Reviewed Allergies: Asa [Salicylates] Comment:causes platelet disfunction Aspirin Unknown, Other: See Comments Levaquin [Levofloxa* Rash, Other: See Comments Comment:Per pt feels like she on fire Avelox [Moxifloxaci* Intolerance Comment:C/O burning feeling on skin PAST MEDICAL HISTORY: PAST MEDICAL HISTORY Diagnosis Date Carpal tunnel syndrome Diverticulosis of colon (without mention of hemorrhage) Hypotension Localized osteoarthrosis not specified whether primary or secondary, hand Mastodynia Other chronic sinusitis Type II or unspecified type diabetes mellitus without mention of complication, uncontrolled Vertigo Current workup PAST SURGICAL HISTORY Procedure Laterality Date ARTHROSCOPY KNEE DIAGNOSTIC W/WO SYNOVIAL BX SPX Left Arthroscopy, knee BIOPSY BREAST OPEN INCISIONAL 1998 needle localization right breast BIOPSY BREAST OPEN INCISIONAL 1996 right breast CARPAL TUNNEL right LAPS ABD PRTM&OMENTUM DX W/WO SPEC BR/WA SPX Laparoscopy TOTAL ABDOMINAL HYSTERECT W/WO RMVL TUBE OVARY 1992 Social History Tobacco Use Smoking status: Never Smokeless tobacco: Never Vaping Use Vaping Use: Never used Substance Use Topics Alcohol use: Not Currently Drug use: No Comment: denies tx for drug/alcohol abuse in the past. family history includes Breast Cancer in an other family member; COPD in her father; Cancer in an other family member; Coronary Artery Disease in her father; Dementia in her mother. ROS: NEURO: SEE HPI Examination: Exam is observational at best. General: well appearing, in no acute distress, alert Pain Behaviors: no pain behaviors observed Neurological: Mental Status: Alert and oriented to person, place and time. Affect is normal and appropriate. Speech is spontaneous and fluent without dysarthria, normal in rate, volume and articulation, and clear,coherent, and relevant. Short and termite helper memory, cognition and general fund of knowledge are good. Attention span and concentration are excellent. HEENT: Head is normocephalic and features were symmetric. Cranial Nerves: III, IV, -EOMI: full. VII-face is symmetric without evidence of weakness. VIII-hearing intact. XII-tongue protrudes midline with normal movements. IMPRESSION/PLAN: Hola Douglas is a 76 year old female who presents virtually today as follow up regarding orthostatic intolerance. She was last seen by Sheryl Garza CNP on 10/22/2021. Since her visit with Sheryl she has done PT and noticed much improvement in her symptoms, noting that her symptoms with orthostatic intolerance occur roughly once per week. She has been taking fludrocortisone 0.1 mg daily for management of symptoms in addition to conservative management including increasing her water and salt intake, compression stockings, and exercise. She monitors her blood pressure and has found that it has been elevated, reporting that her systolic blood pressure can reach the 140's or higher. We discussed trying 0.5 tablets daily for 2 weeks and seeing how her symptoms and blood pressure are managed during that time. She is agreeable to check her blood pressure daily and update myself or Sheryl Garza following that time. I have ordered a BMP for follow up evaluation of electrolytes while taking the fludrocortisone. Orthostatic Intolerance Conservative Measures Increased water intake (2-2.5 liters of water daily) Increased salt intake (3-5 grams daily) Compression stockings Exercise Medication Changes -Fludrocortisone 0.05 mg daily. Check your blood pressure daily and report back to myself or Sheryl Garza CNP in 2 weeks with update. Also, I have ordered a BMP to be drawn at the [facility] near you for electrolyte monitoring with this medication. During our virtual visit encounter we discussed my concerns neurologically in terms of diagnosis, impact on health and activities of living, and addressed questions. I tried to reassure the patient and also address questions. I explained to the patient to call if any questions, to review results, and I want to see them return for neurological follow up as mychart as next steps of communication isagreed upon Patient verbalizes understanding and I have addressed concerns and questions at this visit Patient has my contacts, educational material provided, and my chart sign up. After visit summary discussed. I spent a total of 45 minutes on the date of the service which included preparing to see the patient, [id number] patient care, completing clinical documentation, obtaining and/or reviewing separately obtained history, counseling and educating the patient/family/caregiver, and ordering medications, tests, or procedures. 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 [address] Appointment: [phone] 1. This office note has been dictated and may contain minor typographic errors that escaped review 2. The nursing staff and medical assistants are a major part of YOUR TREATMENT TEAM and will be handling your phone calls and inquiries, if any. Unless explicitly told otherwise at the time of your office visit, your study results and ensuing treatment plans will be discussed during your follow-up appointment. If you do not have a follow-up appointment and wish to discuss any issues directly withme, please feel free to obtain one. 3. It is my practice to not fill disability or any other insurance-related forms/documention. All of the office notes, study results, and other pertinent documentation generated as part of your evaluation will be available to you and to your Primary Care Physician (PCP). Use of this material to complete such forms will be at the discretion of your PCP/referring physician documented in this encounterWilson Health10-18-2022 Miscellaneous Notes* Telephone Encounter - Santiago Duffy - 01/26/2022 10:55 AM EDT Faxed office notes to [facility] attn: Trina at [phone] Transmitted successfully Santiago Duffy [employer] [facility] documented in this encounterWilson Health10-10-2022 History of Present illness Narrative* Andrea Lees MD - 01/18/2022 4:18 PM EDT I personally reviewed the above information as obtained by the nurse and confirmed the findings. Additional HPI: 76 year old female with a past medical history of: PAST MEDICAL HISTORY Diagnosis Date Carpal tunnel syndrome Diverticulosis of colon (without mention of hemorrhage) Hypotension Localized osteoarthrosis not specified whether primary or secondary, hand Mastodynia Other chronic sinusitis Type II or unspecified type diabetes mellitus without mention of complication, uncontrolled Vertigo Current workup PAST SURGICAL HISTORY Procedure Laterality Date ARTHROSCOPY KNEE DIAGNOSTIC W/WO SYNOVIAL BX SPX Left Arthroscopy, knee BIOPSY BREAST OPEN INCISIONAL 1998 needle localization right breast BIOPSY BREAST OPEN INCISIONAL 1996 right breast CARPAL TUNNEL right LAPS ABD PRTM&OMENTUM DX W/WO SPEC BR/WA SPX Laparoscopy TOTAL ABDOMINAL HYSTERECT W/WO RMVL TUBE OVARY 1992 History as taken on 03/26/2021: Transient loss of consciousness (TLOC), near LOC, labile blood pressures last overt LOC was sometime in 2020, LOC duration unknown near LOC not often, 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 Douglas is a 75 year old female who is seen today for orthostatic hypotension. Her medical history is significant for HLD, DM2, PSVT, POTS and orthostatic hypotension diagnosed by tilt table test 01/2018. She was seen by Dr. King in December 2020 reporting frequent and progressive episodes of hypotension of the prior few months. Episodes occurred multiple times daily with associated worsened fatigue and lightheadedness with occasional nausea. Episodes occured randomly, but worsened with positionchange (standing up, bending down). She lies down and puts her feet up with relief of symptoms. Shemay have lost consciousness with the episodes. She also reports some episodes of tachycardia with these episodes. Zio monitor and echo were unremarkable. She was advised to ensure adequate hydration and use compression stockings. In follow-up visit with Dr. King in February, she reported some improvement in symptoms but occasionally wobbly. She was noted to be wobbly/swaying and have balance issues while standing for orthostatic VS, whichwere mostly stable. She reports that she had an episode a few days ago when she bent over, had balance issues and fell and bruised her leg. She reports continued leg cramps since the fall. She endorses lightheadedness and dizziness. She reports a cough d/t sinus drainage. She denies chest pain, shortness of breath, orthopnea, edema, palpitations, PND, near syncope or syncope. She tries to maintain adequate hydration with water and Powerade Zero, though she is uncertain of the quantity. She adds salt to her food. She occasionally drinks Dr. Pepper, but not daily. She abstains from alcohol. She has started wearing OTC compression socks. She does not have an exercise regimen. Prior testing (including outside reports) has included: ZIO MONITOR 12/24/2020-01/07/2021: Patient had a min HR of 56 bpm, max HR of 167 bpm, and avg HR of 79 bpm. Predominant underlying rhythm was Sinus Rhythm. 6 Supraventricular Tachycardia runs occurred, the run with the fastest interval lasting 4 beats with a max rate of 167 bpm, the longest lasting 16 beats with an avg rate of 137 bpm. Isolated SVEs were rare (<1.0%), SVE Couplets were rare (<1.0%), and SVE Triplets were rare (<1.0%). Isolated VEs were rare (<1.0%), VE Couplets were rare (<1.0%), and no VE Triplets were present. Patient triggered events / symptom notations correlated with sinus rhythm, sinus tachycardia ECHO 12/24/2020: CONCLUSIONS: - Exam indication: Hypertensive heart disease - The left ventricle is normal in size. Left ventricular systolic function is normal. EF = 69 5% (2D 4-ch.) - The right ventricle is normal in size. Right ventricular systolic function is normal. -No significant valvular abnormalities noted on the study - Exam was compared with the prior echocardiographic exam performed on 12/29/2017. No significantchange. EPS TILT 01/17/2018: * FINAL IMPRESSIONS * - The test was stopped early at 34 out of 45 minutes of 70 degree tilt due to extensive symptoms nausea weakness and lightheadedness at patient's request. - Systolic blood pressures decreased from 131 mmHg at start to 112 mmHg at end of tilt. - Diastolic blood pressures decreased from 78 mmHg at start to 59 mmHg at end of tilt. - Blood pressure upon return to supine position was 141/70 mmHg. - Heart rates increased from 78 bpm at start to 107 bpm at end of tilt. - Heart rate upon return to supine position was 83 bpm. - ECGs showed: normal sinus rhythm with myocardial changes but no arrhythmias, and QT prolongation at baseline, repeat tilt and recovery. - Patient signs/symptoms included: HOT, LIGHTHEADED, LIGHTHEADEDNESS, NAUSEA, SEE NOTE. - Overall: The test is diagnostic for accentuated postural tachycardia. The test is diagnostic for orthostatic hypotension. Tilt Table Test 09/16/2021: * FINAL IMPRESSIONS * - The test was completed per protocol at 45 minutes of 70 degree tilt. - Systolic blood pressures remained stable from 115 mmHg at start to 122 mmHg at end of tilt. - Diastolic blood pressures oscillated from 63 mmHg at start to 54 mmHg at end of tilt. - Blood pressure upon return to supine position was 133/47 mmHg. - Heart rates increased from 70 bpm at start to 97 bpm at end of tilt. - Heart rate upon return to supine position was 66 bpm. - ECGs showed: sinus, baseline QTc 465, infrequent PVC; no diagnostic ST changes - Patient signs/symptoms included: DIZZINESS, HOT, PAIN, SEE NOTE, SOB, VISION CHANGES. - Overall: The test is negative for syncope. Autonomic Reflex Testing 09/2021: Heart rate response to deep breathing is normal via the mean heart rate range and the E:I ratio. Heart rate response to the Valsalva maneuver, as assessed by the Valsalva ratio, is reduced but the blood pressure responses to phase II and phase IV of the maneuver are intact. This is an abnormal cardiovascular autonomic test panel due to a reduced Valsalva ratio. This finding is nonspecific but is consistent with a cardiovagal abnormality. However, other tests of cardiovagal function, the heart rate response to deep breathing via the mean heart rate range method and E:Iratio are normal. There is no evidence of a significant cardiovascular adrenergic abnormality. QSART 09/2021: QSART responses at the left forearm, proximal leg, distal leg , and foot are normal. There is no evidence of a significant postganglionic sympathetic sudomotor abnormality like that seen in autonomic/small fiber neuropathy. Interval History as taken today 01/18/2022 : here as followup no syncope since last visit BP 130s to 140s / 70s mmHg today 121/67 mmHg VIDEO EXAM: (if completed, performed via video enabled technology) No exam performed Lab Results Component Value Date/Time HB 13.1 2021 10:12 AM HB 13.0 12/24/2020 04:55 PM K 4.8 11/11/2021 10:14 AM K 4.5 2021 10:12 AM K 4.8 12/24/2020 04:55 PM CREAT 1.06 (H) 11/11/2021 10:14 AM CREAT 1.08 (H) 2021 10:12 AM CREAT 1.05 (H) 12/24/2020 04:55 PM CREAT 1.00 (H) 10/24/2020 10:17 AM TSH 3.990 11/11/2021 10:14 AM TSH 3.480 2021 10:12 AM TSH 3.020 12/24/2020 04:55 PM Assessment and Recommendations Virtual/Phone visit provided today 01/18/2022. #. Transient loss of consciousness (TLOC), near LOC, labile blood pressures. On last visit 03/26/2021: Discussed that the prior Tilt Table Test in 2018 only reported a blood pressure decrease to 112/59 mmHg. Orthostatic vitals 03/26/2021 showed generally stable blood pressures from 122/72 mmHg supine to 113/66 mmHg standing. We discussed the possible benefit of a repeat 45-minute passive Tilt Table Test with [id number] blood pressure measurement (to see how low the blood pressures actually go) and the patient agrees; the risks, benefits, and alternatives were discussed with the patient and the consent form was signed. QSART and Autonomic Reflex testing will be requested to assess for autonomic neuropathy / autonomicdysfunction. Today 01/18/2022: Tilt Table Test 09/2021 was negative for syncope. She was seen by Autonomic Neurology with concern for vertigo and she was sent to physical therapy for vertigo which has reportedly helped her dizziness. She was seen by Dr King and started on florinef 0.1 mg daily which has also helped her symptoms / dizziness. She denies TLOC since last visit with tn 03/26/2021. Advised that she monitor her blood pressures while on florinef and update Dr King with any persistently high blood pressures > 140s mmHg systolic. Advise periodic assessment for hypokalemia while taking florinef. Advise calcium and vitamin D supplementation if the patient is to take florinef termite helper. Discussed termite helper cardiac monitoring with an Implantable Loop Recorder to assess for any arrhythmogenic causes of TLOC and she will consider further; will mail educational material about the Implantable Loop Recorder. The following are also recommended: -Sit down or lie down when symptomatic -Caution with assuming upright position, especially at night and with use of the toilet. -Avoid dehydration -Local / state laws should be followed regarding driving. Otherwise, general recommendations include: -No private driving if symptoms occur while driving -No private driving for 1 month following an episode of syncope. [ACC/AHA Syncope Guidelines 2017. PMID [id number]] -If syncope is frequent (more than 6 episodes in 1 year), then no private driving until symptoms are controlled. [ACC/AHA Syncope Guidelines 2017. PMID [id number]] -For professional or commercial driving, driving recommendations may differ depending upon company or governmental regulations. The Nurses and Nurse Practitioners at [facility] are integral to your care. -*Test results will be available on [employer].* -For brief questions regarding the test results, please send a [employer] message or call the office ([phone]), and a Nurse will be in contact. -If you would prefer more extensive discussions of the test results and recommendations, you can request a follow visit (which can be a Virtual Visit) with a Nurse Practitioner or with Dr Lees. Andrea Lees MD, [facility] Cardiac Electrophysiology [facility] Thank you for your visit today. Our hope is to be able to provide you with further appropriate evaluation of your symptoms in order to arrive at a diagnosis, and to provide guidance for you and your primary physician as you continue to work together for your ongoing care. Our hope is to help guide you towards the best of health. Phone Visit: Total Time Spent: 21-30 minutes * Andrea Lees MD - 01/18/2022 4:15 PM EDT Heart[facility] V[facility] Thor[facility] [place] Department of Cardiovascular Medicine VIRTUAL VIDEO VISIT ESTABLISHED OUTPATIENT VISIT SERVICE DATE: 01/18/2022 Patient: Hola Douglas SERVICE TIME: 3:54 PM : 1945 This is a virtual video visit. It required patient-provider interaction for the medical decision making as documented below. Hola Douglas has consented to this video encounter. CHIEF COMPLAINT Transient loss of consciousness (TLOC) HISTORY OF PRESENT ILLNESS Hola Douglas is a 76 year old female who is seen today for orthostatic hypotension. Her medical history is significant for HLD, DM2, PSVT, POTS and orthostatic hypotension diagnosed by tilt table test 01/2018. She was seen by Dr. King in December 2020 reporting frequent and progressive episodes of hypotension of the prior few months. Episodes occurred multiple times daily with associated worsened fatigue and lightheadedness with occasional nausea. Episodes occured randomly, but worsened with positionchange .She may have lost consciousness with the episodes. She also reports some episodes of tachycardia with these episodes. Zio monitor and echo were unremarkable. She was advised to ensure adequate hydration and use compression stockings. She was last seen in office on 03/26/2021. She underwent another tilt table test in September 2021 that was negative for syncope. She denies any episodes of syncope. She denies chest pain, shortness of breath, orthopnea, edema, palpitations, PND, or near syncope. She tries to maintain adequate hydration with water. She adds salt to her food. She has started wearing OTC compression socks. Tilt table test 09/16/2021: * FINAL IMPRESSIONS * - The test was completed per protocol at 45 minutes of 70 degree tilt. - Systolic blood pressures remained stable from 115 mmHg at start to 122 mmHg at end of tilt. - Diastolic blood pressures oscillated from 63 mmHg at start to 54 mmHg at end of tilt. - Blood pressure upon return to supine position was 133/47 mmHg. - Heart rates increased from 70 bpm at start to 97 bpm at end of tilt. - Heart rate upon return to supine position was 66 bpm. - ECGs showed: sinus, baseline QTc 465, infrequent PVC; no diagnostic ST changes - Patient signs/symptoms included: DIZZINESS, HOT, PAIN, SEE NOTE, SOB, VISION CHANGES. - Overall: The test is negative for syncope. PAST MEDICAL HISTORY Diagnosis Date Carpal tunnel syndrome Diverticulosis of colon (without mention of hemorrhage) Hypotension Localized osteoarthrosis not specified whether primary or secondary, hand Mastodynia Other chronic sinusitis Type II or unspecified type diabetes mellitus without mention of complication, uncontrolled Vertigo Current workup PAST SURGICAL HISTORY Procedure Laterality Date ARTHROSCOPY KNEE DIAGNOSTIC W/WO SYNOVIAL BX SPX Left Arthroscopy, knee BIOPSY BREAST OPEN INCISIONAL 1998 needle localization right breast BIOPSY BREAST OPEN INCISIONAL 1996 right breast CARPAL TUNNEL right LAPS ABD PRTM&OMENTUM DX W/WO SPEC BR/WA SPX Laparoscopy TOTAL ABDOMINAL HYSTERECT W/WO RMVL TUBE OVARY 1992 FAMILY HISTORY Problem Relation Age of Onset Dementia Mother Coronary Artery Disease Father COPD Father Breast Cancer Other no known family h/o breast cancer Cancer Other maternal grandmother with h/o ovarian cancer Social History Tobacco Use Smoking status: Never Smokeless tobacco: Never Vaping Use Vaping Use: Never used Substance Use Topics Alcohol use: Not Currently Drug use: No Comment: denies tx for drug/alcohol abuse in the past. ALLERGIES Allergen Reactions Asa [Salicylates] causes platelet disfunction Aspirin Unknown, Other: See Comments Levaquin [Levofloxa* Rash, Other: See Comments Per pt feels like she on fire Avelox [Moxifloxaci* Intolerance C/O burning feeling on skin CURRENT MEDICATIONS clonazePAM (KLONOPIN) 0.5 mg tablet Take 1 tablet by mouth as needed. For restless leg syndrome fludrocortisone (FLORINEF) 0.1 mg tablet Take 1 tablet by mouth once daily. loratadine (CLARITIN) 10 mg tablet semaglutide (OZEMPIC) 0.25 mg or 0.5 mg(2 mg/1.5 mL) pen injector ITake 0.5 mg q weekly fluticasone (FLONASE) 50 mcg/actuation nasal spray Use 2 Sprays in each nostril twice daily. pravastatin (PRAVACHOL) 20 mg tablet Take 1 tablet by mouth daily at bedtime. gabapentin (NEURONTIN) 300 mg capsule TAKE 3 CAPSULES EVERY DAY AT BEDTIME citalopram hydrobromide (CELEXA) 10 mg tablet Take 10 mg by mouth once daily. ergocalciferol 50,000 unit capsule (VITAMIN D2, DRISDOL) TAKE 1 CAPSULE ONE TIME WEEKLY pen needle, diabetic (COMFORT EZ PEN NEEDLES) 33 gauge x 5/16 ndle To inject weekly esomeprazole (NEXIUM) 20 mg capsule Take 1 capsule by mouth DAILY (6 AM). MULTIVITAMIN (MULTI-DAY ORAL) Take by mouth once daily. calcium carbonate 600 mg-cholecalciferol 200 units (CALCIUM 600 + D,3,) 600 mg(1,500mg) -200 unit tab Take 1 tablet by mouth once daily. metFORMIN ER (GLUCOPHAGE XR) 500 mg 24 hr tablet Take 1 tab twice daily with meals (Patient not taking: Reported on 01/18/2022) [facility] Discharge instructions Patient Education 01/12/2022 15:42:20 Overactive Bladder, Adult Overactive Bladder, Adult Overactive bladder refers to a condition in which a person has a sudden need to pass urine. The person may leak urine if he or she cannot get to the bathroom fast enough (urinary incontinence). A person with this condition may also wake up several times in the night to go to the bathroom. Overactive bladder is associated with poor nerve signals between your bladder and your brain. Your bladder may get the signal to empty before it is full. You may also have very sensitive muscles thatmake your bladder squeeze too soon. These symptoms might interfere with daily work or social activities. What are the causes? This condition may be associated with or caused by: Urinary tract infection. Infection of nearby tissues, such as the prostate. Prostate enlargement. Surgery on the uterus or urethra. Bladder stones, inflammation, or tumors. Drinking too much caffeine or alcohol. Certain medicines, especially medicines that get rid of extra fluid in the body (diuretics). Muscle or nerve weakness, especially from: ?A spinal cord injury. ?Stroke. ?Multiple sclerosis. ?Parkinson's disease. Diabetes. Constipation. What increases the risk? You may be at greater risk for overactive bladder if you: Are an older adult. Smoke. Are going through menopause. Have prostate problems. Have a neurological disease, such as stroke, dementia, Parkinson's disease, or multiple sclerosis (MS). Eat or drink things that irritate the bladder. These include alcohol, spicy food, and caffeine. Are overweight or obese. What are the signs or symptoms? Symptoms of this condition include: Sudden, strong urge to urinate. Leaking urine. Urinating 8 or more times a day. Waking up to urinate 2 or more times a night. How is this diagnosed? Your health care provider may suspect overactive bladder based on your symptoms. He or she will diagnose this condition by: A physical exam and medical history. Blood or urine tests. You might need bladder or urine tests to help determine what is causing your overactive bladder. You might also need to see a health care provider who specializes in urinary tract problems (urologist). How is this treated? Treatment for overactive bladder depends on the cause of your condition and whether it is mild or severe. You can also make lifestyle changes at home. Options include: Bladder training. This may include: ?Learning to control the urge to urinate by following a schedule that directs you to urinate at regular intervals (timed voiding). ?Doing Kegel exercises to strengthen your pelvic floor muscles, which support your bladder. Toning these muscles can help you control urination, even if your bladder muscles are overactive. Special devices. This may include: ?Biofeedback, which uses sensors to help you become aware of your body's signals. ?Electrical stimulation, which uses electrodes placed inside the body (implanted) or outside the body. These electrodes send gentle pulses of electricity to strengthen the nerves or muscles that control the bladder. ?Women may use a plastic device that fits into the vagina and supports the bladder (pessary). Medicines. ?Antibiotics to treat bladder infection. ?Antispasmodics to stop the bladder from releasing urine at the wrong time. ?Tricyclic antidepressants to relax bladder muscles. ?Injections of botulinum toxin type A directly into the bladder tissue to relax bladder muscles. Lifestyle changes. This may include: ?Weight loss. Talk to your health care provider about weight loss methods that would work best for you. ?Diet changes. This may include reducing how much alcohol and caffeine you consume, or drinking fluids at different times of the day. ?Not smoking. Do not use any products that contain nicotine or tobacco, such as cigarettes and e-cigarettes. If you need help quitting, ask your health care provider. Surgery. ?A device may be implanted to help manage the nerve signals that control urination. ?An electrode may be implanted to stimulate electrical signals in the bladder. ?A procedure may be done to change the shape of the bladder. This is done only in very severe cases. Follow these instructions at home: Lifestyle Make any diet or lifestyle changes that are recommended by your health care provider. These may include: ?Drinking less fluid or drinking fluids at different times of the day. ?Cutting down on caffeine or alcohol. ?Doing Kegel exercises. ?Losing weight if needed. ?Eating a healthy and balanced diet to prevent constipation. This may include: ?Eating foods that are high in fiber, such as fresh fruits and vegetables, whole grains, and beans. ?Limiting foods that are high in fat and processed sugars, such as fried and sweet foods. General instructions Take sbdi-[id number]-skuggfw and prescription medicines only as told by your health care provider. If you were prescribed an antibiotic medicine, take it as told by your health care provider. Do notstop taking the antibiotic even if you start to feel better. Use any implants or pessary as told by your health care provider. If needed, wear pads to absorb urine leakage. Keep a journal or log to track how much and when you drink and when you feel the need to urinate. This will help your health care provider monitor your condition. Keep all follow-up visits as told by your health care provider. This is important. Contact a health care provider if: You have a fever. Your symptoms do not get better with treatment. Your pain and discomfort get worse. You have more frequent urges to urinate. Get help right away if: You are not able to control your bladder. Summary Overactive bladder refers to a condition in which a person has a sudden need to pass urine. Several conditions may lead to an overactive bladder. Treatment for overactive bladder depends on the cause and severity of your condition. Follow your health care provider's instructions about lifestyle changes, doing Kegel exercises, keeping a journal, and taking medicines. This information is not intended to replace advice given to you by your health care provider. Make sure you discuss any questions you have with your health care provider. Document Released: 01/22/2010 Document Revised: 07/19/2019 Document Reviewed: 04/13/2018 Elsevier Patient Education 2020 [employer] Follow Up Care 11/27/2021 11:30:08 With:HIRO BRICENO, Ryan Holland, URL Address: [address] [place] [id number]- When:01/12/2023 Comments:possible [facility] 09-29-2022 Evaluation note* Encounter Date Diagnosis Assessment Notes Treatment Notes Treatment Clinical Notes Dec, Anxiety and depression (ICD-10 - F41.8) Patient is doing okay on the medications. She is reports having difficulty with sleep recently and is requesting a refill on clonazepam that she uses for the RLS Dec,iarrhea, unspecified type (ICD-10 - R19.7) Patient is reporting diarrhea for the past week. I am have offered to collect stool sample to checkfor infectious process. Patient is also on metformin that can cause GI upset as well. I am cautiousof the diarrhea as this can cause depletion of potassium and sodium. Patient is to remain hydrated.Try gatoraid or propel. Watch added sugar. Stop the metformin for one week and see if this helps. She is to call this office with update. If she continues to have the diarrhea then I am ordering the stool studies and chemestries to check her electrolytes. She voiced understanding. Dec,estless leg syndrome (ICD-10 - G25.81) Patient takes Clonazepam for the RLS. She has been having difficulty with sleep due to this and refill is needed. This will be provided to her today. 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 I am concerned that the metformin may be causing this. She is still taking the Ozempic. Stop the Metformin for one week to seehow the diarrhea does. If no improvement this will be restarted. Advised to watch sugar closely since stopping the [employer] Other 09-09-2022 Evaluation note* Encounter Date Diagnosis Assessment Notes Treatment Notes Treatment Clinical Notes Dec, Anxiety and depression (ICD-10 - F41.8) Patient feels like the above medication has not been helping. She has also reported itchy after starting the above medication. Therefore I suggest she stop the trintellix. The patient feels like she was doing much better on the celexa. I advised the patient to start taking the celexa again, either 5mg or 10mg if the patient feels comfortable. The patient does have celexa left over at her home. Dec,estless leg syndrome (ICD-10 - G25.81) I advised the patient start taking a full tablet at bedtime. We will continue to monitor. Dec,Vertigo (ICD-10 - R42) Patient reports having the worse day of vertigo today, has not had any issues with vertigo in awhile. I encouraged the patient to check blood pressures through the day to make sure they do not get too low. Dec,Itching (ICD-10 - L29.9) I advised the patient to take at bedtime as needed for about one or two nights since the patient isalready taking the klonopin. [employer] Other 08-26-2022 Evaluation note* Encounter Date Diagnosis Assessment Notes Treatment Notes Treatment Clinical Notes Nov, Anxiety and depression (ICD-10 - F41.8) [employer] Other 08-19-2022 Evaluation note* Encounter Date Diagnosis Assessment Notes Treatment Notes Treatment Clinical Notes Nov, Anxiety and depression (ICD-10 - F41.8) Patient reports taking a 10mg every other day. She voices since lower the dose and frequency, she has been very tearful. Since the patient reports being hyoptensive since starting this medication, wewill try the patient on a different medication. Samples provided in the office today for the trintellix 5mg. Patient can start taking today. We will continue to monitor. Nov,Hypotension, unspecified hypotension type (ICD-10 - I95.9) The patients blood pressure was WNL upon check in. I did recheck again myself with a reading of 114/68. I advised the patient to keep checking blood pressures at home and also follow with the wind project manager as scheduled. Nov,Vertigo (ICD-10 - R42) Patient is to continue to follow with Jcarlos at for the vertigo. Nov,arpal tunnel syndrome, left (ICD-10 - G56.02) Patient is to continue to follow with Dr. Booth as scheduled. Nov,arpal tunnel syndrome, right (ICD-10 - G56.01) Patient is to continue to follow with Dr. Booth as scheduled. 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 We performed a cortisone injection into the CMC joint under sterile technique. The patient tolerated this well without complication. We discussed that the finger may feel numb and tingle for hours after this injection. In the future if the pain persists, we can consider surgical treatment. Nov,Unilateral primary osteoarthritis of first carpometacarpal joint, right hand (ICD-10 - M18.11)We performed a cortisone injection into the CMC joint under sterile technique. The patient tolerated this well without complication. We discussed that the finger may feel numb and tingle for hours after this injection. In the future if the pain persists, we can consider surgical treatment. Nov,arpal tunnel syndrome, left (ICD-10 - G56.02)We performed a cortisone injection into the carpal tunnel under sterile technique. The patient tolerated this well without complication. We discussed that the wrist/hand may feel numb and tingle for hours after this injection. In the future if the pain persists, we can consider surgical treatment. Nov,arpal tunnel syndrome, right (ICD-10 - G56.01)We performed a cortisone injection into the carpal tunnel under sterile technique. The patient tolerated this well without complication. We discussed that the wrist/hand may feel numb and tingle for hours after this injection. In the future if the pain persists, we can consider surgical treatment. Nov,ain of left hand (ICD-10 - M79.642) Nov,ain in right hand (ICD-10 - M79.641) [employer] Other 08-03-2022 History of Present illness Narrative* Da King MD - 11/11/2021 11:25 AM EDT Images from the original note were not included. [facility] [place] [facility] Department of Cardiovascular Medicine SECTION OF CARDIOVASCULAR IMAGING OUTPATIENT VISIT DATE November 11, 2021 OUTPATIENT VISIT TYPE ESTABLISHED PRIMARY CARE PHYSICIAN: Erich Gillis DO [address] [place] [id number] CHIEF COMPLAINT: CV health management visit. HISTORY OF PRESENT ILLNESS: Ms. Douglas is a 76 year old female who presents today for a cardiovascular medicine follow-up visit.She has a past medical history significant for POTS, DM2, HTN, and HLD. She was last seen in clinic on 03/02/2021. At that time, she endorsed occasional wobbliness, and was attempting to increase her fluid intake. She was instructed to follow up in 6 months and to followwith Dr. Lees. Today, Mrs. Douglas reports two falls in the past year. She note continually low BP, and has had difficulty keeping up adequate fluid intake. Her notes that she becomes unsteady when trying to stand still. She endorses a sensation of the room moving, as well as tinnitus in her right ear. From a cardiovascular perspective, pt continues to do well and specifically denies any CP, SOB, palpitations, syncope, orthopnea, LE edema, focal neuro sx, post-prandial abdominal pain, or claudication. PAST CARDIAC HISTORY: SEE HPI PAST MEDICAL HISTORY Diagnosis Date Carpal tunnel syndrome Diverticulosis of colon (without mention of hemorrhage) Hypotension Localized osteoarthrosis not specified whether primary or secondary, hand Mastodynia Other chronic sinusitis Type II or unspecified type diabetes mellitus without mention of complication, uncontrolled Vertigo Current workup PAST SURGICAL HISTORY Procedure Laterality Date ARTHROSCOPY KNEE DIAGNOSTIC W/WO SYNOVIAL BX SPX Left Arthroscopy, knee BIOPSY BREAST OPEN INCISIONAL 1998 needle localization right breast BIOPSY BREAST OPEN INCISIONAL 1996 right breast CARPAL TUNNEL right LAPS ABD PRTM&OMENTUM DX W/WO SPEC BR/WA SPX Laparoscopy TOTAL ABDOMINAL HYSTERECT W/WO RMVL TUBE OVARY 1992 SOCIAL HISTORY Social History Tobacco Use Smoking status: Never Smoker Smokeless tobacco: Never Used Vaping Use Vaping Use: Never used Substance Use Topics Alcohol use: Not Currently Drug use: No Comment: denies tx for drug/alcohol abuse in the past. ALLERGIES: ALLERGIES Allergen Reactions Asa [Salicylates] causes platelet disfunction Aspirin Unknown, Other: See Comments Levaquin [Levofloxa* Rash, Other: See Comments Per pt feels like she on fire Avelox [Moxifloxaci* Intolerance C/O burning feeling on skin MEDICATIONS: clonazePAM (KLONOPIN) 0.5 mg tablet Take 1 tablet by mouth as needed. For restless leg syndrome loratadine (CLARITIN) 10 mg tablet semaglutide (OZEMPIC) 0.25 mg or 0.5 mg(2 mg/1.5 mL) pen injector ITake 0.5 mg q weekly metFORMIN ER (GLUCOPHAGE XR) 500 mg 24 hr tablet Take 1 tab twice daily with meals fluticasone (FLONASE ALLERGY RELIEF) 50 mcg/actuation nasal spray Use 2 Sprays in each nostril twice daily. pravastatin (PRAVACHOL) 20 mg tablet Take 1 tablet by mouth daily at bedtime. gabapentin (NEURONTIN) 300 mg capsule TAKE 3 CAPSULES EVERY DAY AT BEDTIME citalopram hydrobromide (CELEXA) 10 mg tablet Take 10 mg by mouth once daily. ergocalciferol 50,000 unit capsule (VITAMIN D2, DRISDOL) TAKE 1 CAPSULE ONE TIME WEEKLY pen needle, diabetic (COMFORT EZ PEN NEEDLES) 33 gauge x 5/16 ndle To inject weekly esomeprazole (NEXIUM) 20 mg capsule Take 1 capsule by mouth DAILY (6 AM). MULTIVITAMIN (MULTI-DAY ORAL) Take by mouth once daily. calcium carbonate 600 mg-cholecalciferol 200 units (CALCIUM 600 + D,3,) 600 mg(1,500mg) -200 unit tab Take 1 tablet by mouth once daily. REVIEW OF SYSTEMS: POSITIVES IN BOLD GENERAL: Negative for: Weight loss or gain, Fever or Chills, Weakness and Sleep difficulties. HEENT: Negative for: Headache, Impaired Vision, Glasses, Hearing Impairment, Ringing in Ears, Nosebleeds, Poor dental care, Bleeding Gums, Dentures NECK: Negative for: Swelling, Pain, Stiffness CARDIOVASCULAR: SEE HPI RESPIRATORY: Negative for: Cough, Blood in Sputum, Shortness of breath, Wheezing, Apnea GASTROINTESTINAL: Negative for: Trouble swallowing, Heartburn, Change in bowel habits, Blood in stool, Dark black stools MUSCULOSKELETAL: Negative for: Muscle or joint pain, Stiffness, Joint swelling NEUROLOGIC/PSYCHIATRIC: Negative for: Weakness, Paralysis, Numbness, Tingling, Tremor, Nervousness,Depressed mood, Memory loss SKIN: Negative for: Rashes, Itching HEMATOLOGICAL/LYMPHATIC: Negative for: Easy bruising , Easy bleeding ENDOCRINE: Negative for: Heat or cold intolerance, Excessive sweating, Frequent urination, Frequentthirst PHYSICAL EXAMINATION: POSITIVES IN BOLD BP 98/62 (BP Site: Left Arm, BP Position: Sitting, BP Cuff Size: Regular Adult) Pulse 74 Ht 172.7 cm (5' 8 ) Wt 76.5 kg (168 lb 9.6 oz) SpO2 96% BMI 25.64 kg/m General: Well appearing, in no acute distress. Skin: No clubbing, no cyanosis. Eyes: Extra ocular movements intact Oropharynx: Teeth in good repair. Neck: No jugular venous distention, no carotid bruits, carotids have a normal upstroke, no palpablethyromegaly. Lungs: Clear to auscultation bilaterally, no wheezing or rhonchi. Heart: Regular rhythm, PMI not displaced, S1, S2 normal, no S3, no S4, no heaves, no rub and no murmur. Abdomen: Soft, nontender, bowel sounds normal, no palpable organomegaly, no bruits. Extremities: No peripheral edema . Grade 2/4 distal pulses bilaterally. Neuro: Oriented to person, place and time, alert, cooperative, gait coordinated. CARDIOVASCULAR MEDICINE TESTING: Electrocardiogram: November 11, 2021 NORMAL SINUS RHYTHM NORMAL ECG I have personally reviewed the Electrocardiogram. LABS Component Latest Ref Rng & Units 11/11/2021 Protein, Total 6.3 - 8.0 g/dL 6.7 Albumin 3.9 - 4.9 g/dL 4.3 Calcium 8.5 - 10.2 mg/dL 9.9 Bilirubin, Total 0.2 - 1.3 mg/dL 0.2 Alkaline Phosphatase 34 - 123 U/L 72 AST 13 - 35 U/L 43 (H) ALT 7 - 38 U/L 38 Glucose 74 - 99 mg/dL 101 (H) BUN 7 - 21 mg/dL 16 Creatinine 0.58 - 0.96 mg/dL 1.06 (H) Sodium 136 - 144 mmol/L 143 Potassium 3.7 - 5.1 mmol/L 4.8 Chloride 97 - 105 mmol/L 105 CO2 22 - 30 mmol/L 26 Anion Gap 9 - 18 mmol/L 12 eGFR >=60 mL/min/1.73m 55 (L) Cholesterol, Total <200 mg/dL 133 Triglyceride <150 mg/dL 236 (H) HDL Cholesterol >39 mg/dL 32 (L) Non HDL Cholesterol <130 mg/dL 101 Fasting Time hrs 2 VLDL Cholesterol <30 mg/dL 47 (H) TC:HDL Ratio <5.10 4.16 LDL Cholesterol <100 mg/dL 54 LDL:HDL Ratio <2.54 1.69 Creatinine, Ur Random (UCRR) 20.0 - 300.0 mg/dL 360.5 (H) Albumin, Urine Random mg/L 16.4 Albumin/Creat Ratio <30 mg/g 5 TSH 0.270 - 4.200 mIU/L 3.990 Last 4 BP Last 4 Encounter BP Readings: Date: BP: 11/11/2021 98/62 10/22/2021 116/67 10/22/2021 108/70 05/21/2021 116/65 Creatinine Date Value Ref Range Status 2021 1.08 (H) 0.58 - 0.96 mg/dL Final 12/24/2020 1.05 (H) 0.58 - 0.96 mg/dL Final 10/24/2020 1.00 (H) 0.58 - 0.96 mg/dL Final 05/01/2020 1.05 (H) 0.58 - 0.96 mg/dL Final IMPRESSION: Ms. Douglas is a 76 year old female with history of POTS (on tilt table 01/2018), DM2, HTN, and HLD. 1. Hypotension/orthostatic hypotension - BP today 98/62 - During visit: 108/62 seated; 108/68 - Can start fludrocortisone 0.1 mg daily 2. Dizziness/unsteadiness - Recommend follow up with physical therapy - Likely related to vestibular dysfunction such as Meniere's disease PLAN AND RECOMMENDATIONS: - Ordered fludrocortisone 0.1 mg daily - reach out in 2-3 weeks to update me - Follow with primary regarding switching Celexa given low BP - Continue compression stockings - Recommend follow up with Dr. Cee, Neurology - RTC in 3 months I personally interviewed, confirmed and edited the above information if obtained by others. CONTACT INFORMATION: Scribe Attestation: By signing my name below, I, Rock Dye, attest that this documentation has been prepared under the direction and in the presence of Dr. Da King MD. Electronically Signed:payton Ayala, November 11, 2021 11:25 AM Da King M.D., [facility] Section Head, Cardiovascular Imaging [facility] Department of Cardiovascular Medicine [facility] Desk [id number] [address] Office [phone] extension [phone] Office Appointments: [phone] extension [phone] documented in this encounterWilson Health07-25-2022 Miscellaneous Notes* Telephone Encounter - Rosa Roberto RN - 11/02/2021 1:23 PM EDT Message sent to patient that Sheryl wants her to wear thigh high stockings as ordered. Gayle Roberto RN * Telephone Encounter - Thomas Amaya Pss - 11/02/2021 10:14 AM EDT Call received from the patient she is asking for clarification regarding the order for compression stockings. She advise the order is for thigh high but was under the impression it was knee highs. She asked that the appropriate order be sent to the pharmacy. documented in this encounterWilson Health07-22-2022 Miscellaneous Notes* Telephone Encounter - Rosa Roberto RN - 10/30/2021 11:38 AM EDT Patient sending in orthostatic vitals. Gayle Roberto RN documented in this encounterWilson Health07-20-2022 Miscellaneous Notes* Telephone Encounter - Issac Posey - 10/28/2021 3:48 PM EDT Relationship to patient: Self Reason for call (non-seizure related) Patient needs prescription for compression socks [facility]n [facility] [place] Patient of Sheryl Garza documented in this encounterWilson Health07-19-2022 Evaluation note* Encounter Date Diagnosis Assessment Notes Treatment Notes Treatment Clinical Notes Oct, Left lower quadrant abdominal pa in (ICD-10 - R10.32) CT has been reviewed with patient in great detail related to abdomen/pelvic anatomy. Small stone noted in the left kidney that is not causing any obstruction. No appenicitis. Mild fatty liver infiltration identified. No further abdominal pain at the present time. Oct,Lumbar back pain (ICD-10 - M54.50) Recent CT of the abd/pelvis did show arthritic changes in the lumbar spine that I do believe patient is having referred pain into the abdomen from her back caused by a possible nerve. She had gone through PT at one point some time ago for her back pain. She did see Dr. Street, Pain Medicine, in the past for her pain control and also Dr. Shad Mccray and Dr. Osorio. She does not recall having MRI of the lumbar spine. Patient is wanting to go back and see Dr. Street again for evaluation of the backpain. MRI may need to be ordered for further eval. I will defer to Dr. Street at this time per patient request. Oct,Hypotension, unspecified hypotension type (ICD-10 - I95.9) Patient is being followed by wind project manager at the [facility] for the hypotension. Blood pressure is good in office today. Patient encouraged to follow up as scheduled. [employer] Other [id number] History of Present illness Narrative* Hola Penaloza MD - 10/22/2021 4:07 PM EDT Hola K Stella is a 76 year old woman who comes in today for pain in her left breast. I previously saw her for costochondritis last year and alsoin 2018. This pain is different, as it is more lateral. The pain has been present for several weeks. It is mainly on the upper and lower lateral breast radiating toward the mid breast. She does not recall any trauma, has not lifted anything heavy. No recent cough. She is not using any medication for it. HX of POTS, DM, dizziness. Review Of Systems GENERAL:No weight loss, malaise or fevers HEENT:Negative for frequent or significant headaches, No changes in hearing or vision, no nose bleeds or other nasal problems NECK:Negative for lumps, goiter, pain and significant neck swelling RESPIRATORY: Negative for cough, hemoptysis, wheezing, COPD, dyspnea or shortness of breath CARDIOVASCULAR: Negative for chest pain, leg swelling, hypertension, CHF or palpitations GASTROINTESTINAL: No nausea, vomiting, or diarrhea GENITOURINARY: No history of dysuria, frequency or incontinence DIRECTOR OF PRODUCT MARKETING: Negative for abnormal vaginal bleeding, abnormal vaginal discharge MUSCULOSKELETAL: Negative for joint pain or swelling, back pain or muscle pain NEUROLOGIC:Negative for focal numbness or weakness, headaches and dizziness or syncope. SKIN:Negative for lesions, rash, and itching PSYCHIATRIC: Negative for sleep disturbance, mood disorder and recent psychosocial stressors. HEMATOLOGIC/LYMPHATIC/IMMUNOLOGIC:Negative for prolonged bleeding, bruising easily or swollen nodes ENDOCRINE: Negative for cold or heat intolerance, polyuria, polydipsia and goiter The remainder of the ROS was negative. HISTORIES FAMILY HISTORY Problem Relation Age of Onset Breast Cancer Other no known family h/o breast cancer Cancer Other maternal grandmother with h/o ovarian cancer None Mother age 83- dementia Coronary Artery Disease Father age 85- COPD PAST MEDICAL HISTORY Diagnosis Date Carpal tunnel syndrome Diverticulosis of colon (without mention of hemorrhage) Localized osteoarthrosis not specified whether primary or secondary, hand Mastodynia Other chronic sinusitis Type II or unspecified type diabetes mellitus without mention of complication, uncontrolled PAST SURGICAL HISTORY Procedure Laterality Date ARTHROSCOPY KNEE DIAGNOSTIC W/WO SYNOVIAL BX SPX Left Arthroscopy, knee BIOPSY BREAST OPEN INCISIONAL 1998 needle localization right breast BIOPSY BREAST OPEN INCISIONAL 1996 right breast CARPAL TUNNEL right LAPS ABD PRTM&OMENTUM DX W/WO SPEC BR/WA SPX Laparoscopy TOTAL ABDOMINAL HYSTERECT W/WO RMVL TUBE OVARY 1992 Social History Tobacco Use Smoking status: Never Smoker Smokeless tobacco: Never Used Vaping Use Vaping Use: Never used Substance Use Topics Alcohol use: Not Currently Drug use: No Comment: denies tx for drug/alcohol abuse in the past. Problem list reviewed ACTIVE PROBLEM LIST Nonspecific Abnormal Findings On Radiological Or Other Examinations of The Breast Localized Osteoarthrosis Not Specified Whether Primary Or Secondary, Hand Carpal Tunnel Syndrome Uncontrolled Type 2 Diabetes With Neuropathy Mixed Hyperlipidemia Bursitis of Hip Vitamin D Insufficiency Essential Hypertension, Benign Right Buttock Pain Pain in Right Hip Greater Trochanteric Bursitis of Right Hip Iron Deficiency Anemia, Unspecified 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 Dyspnea on exertion Fatigue Tinnitus, Right Ear Sensory Hearing Loss, Bilateral Restless Legs Syndrome Postmenopausal Status Mixed Anxiety Depressive Disorder Diverticulitis Cough Chronic Pain Bruises Easily Breast Exam: Breasts are symmetrical and normal to inspection. The nipples are everted. No erythema, induration, ulceration, skin retraction, edema or masses are seen. There is no nipple discharge. No masses are palpated in either breast. There is no cervical, supraclavicular, or axillary adenopathy. There is exquisite tenderness to palpation over the left 7th rib laterally and some tenderness inthe lateral left breast. There is no skin rash to suggest zoster. The pain does not clearly follow a dermatome. No numbness. Heart RRR, no murmur, gallop or rub Lungs clear to auscultation. Mammograms today show no lesions supicious for ca. IMP: Chest wall pain. It does not seem to be neuropathic. PLAN: This will probably resolve on its own. In the meantime she may get relief from ice, Tylenol, ibuprofen or naproxen. Perhaps physical therapy would be useful, but at this point, I don't think it is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 documented in this encounterWilson Health05-25-2022 Miscellaneous Notes* Telephone Encounter - Lizbeth Hines - 09/02/2021 1:55 PM EDT Reviewed tilt table test instructions with pt. Answered pt questions. Referred pt to read her [employer] messages for copy of instructions as well as additional information. Pt expressed understanding documented in this encounterWilson Health05-18-2022 Evaluation note* Encounter Date Diagnosis Assessment Notes Treatment Notes Treatment Clinical Notes August, Anxiety and depression (ICD-10 - F41.8) [facility] Other [id number] Miscellaneous Notes* Telephone Encounter - Radha Motta - 08/24/2021 12:45 PM EDT Spoke Hola Stella about her medications for her upcoming Neuro Autonomic ANS without TILT and QSART on 09/16/2021. Patient gave verbal confirmation they understood instructions.-AM 08/24/2021 The medication(s) listed below will need to be stopped prior to your Autonomic testing. Please reach out to your prescribing physician to ensure it is safe to discontinue the medication(s) and to receive the tapering instructions, if necessary. Do not discontinue your medications without consultingyour prescribing physician. The [facility] recommends the following medication discontinuation lengths and instructions: Stop for 48 hours prior to testing: Claritin No Cannabidiol (CBD) oil or marijuana 7 days prior to testing No OVER THE COUNTER cold and cough medications, antihistamines, allergy medications, aspirin, or diuretics 48 hours prior to testing No alcohol 14 hours prior to testing No smoking/vaping or any form of nicotine 4 hours prior to testing No food or drinks that contain caffeine 4 hours prior to testing No lotion the day of testing Wear loose clothing in order to have arms and legs accessible for testing Bring your medications with you to take after the test, if necessary The Autonomic Lab is located on the 9th floor, Desk [address], at the corner of [address] If there are any concerns regarding these instructions, the lab can be reached at [phone]. Technicians may be with patients and will call you back within 24 hours. documented in this encounterWilson Health05-04-2022 Evaluation note* Encounter Date Diagnosis Assessment Notes Treatment Notes Treatment Clinical Notes August, RLS (restless legs syndrome) ( D-10 - G25.81) [facility] Other 03-01-2022 Evaluation note* Encounter Date Diagnosis Assessment Notes Treatment Notes Treatment Clinical Notes Jun, Abdominal pain (ICD-10 - R10.9) Differential diagnosis discussed at length with her today, as she has had two ER visits with CT scans which were not indicative of any acute process in her abdomen. She denies any relief with pain medication, which is causing worse constipation. She states that her bowels are starting to move. Discussed that her pains may be secondary to a nerve radiculopathy from her spine , and as we discussed further she is now starting to have some pain in her upper left leg. She has actually followed with pain managment in the past seconday to hip pain/radiculopathy therefore would like to prescribe a short burst of steriods. She is to monitor her sugars very closely and will f/u with her in about a week. Call with any concens . [facility] Other 02-28-2022 Evaluation note* Encounter Date Diagnosis Assessment Notes Treatment Notes Treatment Clinical Notes May, Left flank pain (ICD-10 - R10.9) Patient reports the pain has increased from ER visit on 06/04/21. May,Nephrolithiasis (ICD-10 - N20.0) CT scan from the ER noted two nonobstructing left kidney stones and was prescribed the above medications. We will discuss further with Dr. Abel to see what the next step is, as the patients pain hasincreased. During this virtual visit I did call Dr. Abel myself and discussed that this pain may not be gastro related and patient should get admitted for a full work up. I did agree with this plan and discussed with patient. Patient was very hesitate on going back to [facility] ER due to her last experience but after a long discussion the patient did agree to go in. I will call myself to [facility] ER to give report. May,iverticulitis (ICD-10 - K57.92) CT scan done at [facility] ER did not show evidence of diverticulitis. Patient has completed the round ofamoxicillin. [facility] Other 02-28-2022 Evaluation note* Encounter Date Diagnosis Assessment Notes Treatment Notes Treatment Clinical Notes May, Diverticulitis (ICD-10 - K57.92) [facility] Other 02-24-2022 Evaluation note* Encounter Date Diagnosis Assessment Notes Treatment Notes Treatment Clinical Notes May, Diverticulitis (ICD-10 - K57.92) PATIENT ADVISED WE WILL NEED TO DO IMAGING AND LABS AT THIS TIME. PATIENT ADVISED MAY HAVE TO DO REPEAT COLON 8 WEEKS AFTER RESOLVED. AFTER ASSESSMEN PATIENT TO REPORT TO ER FOR TESTING. 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 - M18.12) Bilateral carpal tunnel and bilateral thumb CMC joints injected with cortisone under sterile technique, patient tolerated well Apr,Unilateral primary osteoarthritis of first carpometacarpal joint, right hand (ICD-10 - M18.11) Bilateral carpal tunnel and bilateral thumb CMC joints injected with cortisone under sterile technique, patient tolerated well Apr,2Carpal tunnel syndrome, left (ICD-10 - G56.02) Bilateral carpal tunnel and bilateral thumb CMC joints injected with cortisone under sterile technique, patient tolerated well Apr, 2Carpal tunnel syndrome, right (ICD-10 - G56.01) Bilateral carpal tunnel and bilateral thumb CMC joints injected with cortisone under sterile technique, patient tolerated well Apr,ain of left hand (ICD-10 - M79.642) Apr,ain in right hand (ICD-10 - M79.641) [facility] Other 05-01-2016 History general Narrative - Reported* Type Description Date Medical History Anxiety and depression Medical HistoryColonoscopy 2015- Dr Stoutedical Historyfollows with Dr Arroyo for INJECTION PRESS OPERATOR careMedical HistoryDEXA 08/2015Medical HistoryStress Test 2009Medical HistoryDEXA 06/2018Surgical HistoryC-SectionSurgical HistoryHysterectomy (total) 1991Surgical HistoryLaproscopy for endometrosisSurgical HistoryRight Hand carpal tunnelSurgical History2 X lumpectomies on right breast (benign)Surgical History lumbar facet medial nerve branch blocks on the right side at the L3-4 and L4-5 (Dr Osorio)03/14/14Surgical HistoryL5-S1 dorsal rami block under fluroscopic qgoigopf73/4/14Surgical [id number] HistoryLeft orthoscopic knee surgery09/2014Surgical HistoryBilateral eyelid lift - Xjbbakcyr38/2020 Hospitalization HistorySee Above [facility] Other 05-01-2016 History general Narrative - Reported* Type Description Date Medical History Anxiety and depression Medical HistoryColonoscopy 2015- Dr Dimas Historyfollows with Dr Arroyo for INJECTION PRESS OPERATOR careMedical HistoryDEXA 08/2015Medical HistoryStress Test 2009Medical HistoryDEXA 06/2018Medical Cgoafys3910/22/2021 Mammogram - [facility] Surgical HistoryC-SectionSurgical HistoryHysterectomy (total)1991Surgical HistoryLaproscopy for endometrosisSurgical HistoryRight Hand carpal tunnel Surgical History2 X lumpectomies on right breast (benign)Surgical Historylumbar facet medial nerve branch blocks on the right side at the L3-4 and L4-5 (Dr Osorio)03/14/14Surgical HistoryL5-S1 dorsal rami block under fluroscopic guidance 03/14/14Surgical Historyinjections5/09434Pofyfjhs HistoryLeft orthoscopic knee surgery09/2014Surgical HistoryBilateral eyelid lift - Qjrmzfaht15/2020 Hospitalization HistorySee Above [facility] Other 05-01-2016 History general Narrative - Reported* Type Description Date Medical History Anxiety and depression Medical HistoryColonoscopy 2015- Dr Dimas Historyfollows with Dr Arroyo for INJECTION PRESS OPERATOR careMedical HistoryDEXA 08/2015Medical HistoryStress Test 2009Medical HistoryDEXA 06/2018Medical Xwvyogf7310/22/2021 [facility] CT head/brainSurgical HistoryC-SectionSurgical History Hysterectomy (total)1991Surgical HistoryLaproscopy for endometrosisSurgical HistoryRight Hand carpal tunnelSurgical History2 X lumpectomies on right breast (benign)Surgical Historylumbar facet medial nerve branch blocks on the right side at the L3-4 and L4-5 (Dr Osorio)03/14/14Surgical HistoryL5-S1 dorsal rami block under fluroscopic fwaqggiu50/4/14Surgical Historyinjections5/[id number] HistoryLeft orthoscopic knee surgery09/2014Surgical HistoryBilateral eyelid lift - Jafgzhtth49/2019Hospitalization HistorySee Above [facility] Other 05-01-2016 History general Narrative - Reported* Type Description Date Medical History Anxiety and depression Medical HistoryColonoscopy 2015- Dr Dimas Historyfollows with Dr Arroyo for INJECTION PRESS OPERATOR careMedical HistoryDEXA 08/2015Medical HistoryStress Test 2009Medical HistoryDEXA 06/2018Medical Ubyrmla0410/22/20[facility] CT head/brainSurgical HistoryC-SectionSurgical History Hysterectomy (total)1991Surgical HistoryLaproscopy for endometrosisSurgical HistoryRight Hand carpal tunnelSurgical History2 X lumpectomies on right breast (benign)Surgical Historylumbar facet medial nerve branch blocks on the right side at the L3-4 and L4-5 (Dr Osorio)03/14/14Surgical HistoryL5-S1 dorsal rami block under fluroscopic grtzpcay58/4/14Surgical Historyinjections39713Lkazjipk HistoryLeft orthoscopic knee surgery09/2014Surgical HistoryBilateral eyelid lift - Hotqbrzoi20/2020Surgical Historyleft thumb surgery per Dr. Booth11/2022 Hospitalization HistorySee Above [facility] Other 05-01-2016 History general Narrative - Reported* Type Description Date Medical History Anxiety and depression Medical HistoryColonoscopy 2015- Dr Dimas Historyfollows with Dr Arroyo for INJECTION PRESS OPERATOR careMedical HistoryDEXA 08/2015Medical HistoryStress Test 2009Medical HistoryDEXA 06/2018Medical Odccyce1710/22/20[facility] CT head/brainSurgical HistoryC-SectionSurgical History Hysterectomy (total)1991Surgical HistoryLaproscopy for endometrosisSurgical HistoryRight Hand carpal tunnelSurgical History2 X lumpectomies on right breast (benign)Surgical Historylumbar facet medial nerve branch blocks on the right side at the L3-4 and L4-5 (Dr Osorio)03/14/14Surgical HistoryL5-S1 dorsal rami block under fluroscopic exfsuzlr27/4/14Surgical Historyinjections5/25047Ltwkwwab HistoryLeft orthoscopic knee surgery09/2014Surgical HistoryBilateral eyelid lift - Lcobzvkqz46/2020Surgical Historyleft thumb surgery per Dr. Booth11/2022 Surgical Historyleft carpal tunnel release, left small finger DIP fusion/ arthrodesis, and left thumb [facility] fusionHospitalization HistorySee Above [facility] Other 09-06-2005 History of Past illness Narrative* Problem Noted DateResolved DateLesion of ulnar nerve12/15/Pain in limb documented as of this encounter (statuses as of 08/24/2021) [facility] of [facility] illness Narrative* ProblemNoted Date Resolved DateLesion of ulnar nervePain in limb12/15/2004 11/10/2018documented as of this encounter (statuses as of 09/02/2021) [facility] History of Past illness Narrative* ProblemNoted Date Resolved DateLesion of ulnar nervePain in limb12/15/2004 11/10/2018documented as of this encounter (statuses as of 09/16/2021) [facility] History of Past illness Narrative* ProblemNoted Date Resolved DateLesion of ulnar nervePain in limb12/15/2004 11/10/2018documented as of this encounter (statuses as of 09/22/2021) [facility] History of Past illness Narrative* ProblemNoted Date Resolved DateLesion of ulnar nervePain in limb12/15/2004 11/10/2018documented as of this encounter (statuses as of 09/28/2021) [facility] History of Past illness Narrative* ProblemNoted Date Resolved DateLesion of ulnar nervePain in limb12/15/2004 11/10/2018documented as of this encounter (statuses as of 10/22/2021) [address]06[address]2005 History of Past illness Narrative* ProblemNoted Date Resolved DateLesion of ulnar nervePain in limb12/15/2004 11/10/2018documented as of this encounter (statuses as of 10/23/2021) [facility] History of Past illness Narrative* ProblemNoted Date Resolved DateLesion of ulnar nervePain in limb12/15/2004 11/10/2018documented as of this encounter (statuses as of 10/23/2021) [facility] History of Past illness Narrative* ProblemNoted Date Resolved DateLesion of ulnar nervePain in limb12/15/2004 11/10/2018documented as of this encounter (statuses as of 10/24/2021) [place] [address]06-2005 History of Past illness Narrative* ProblemNoted Date Resolved DateLesion of ulnar nervePain in limb12/15/2004 11/10/2018documented as of this encounter (statuses as of 10/28/2021) [facility] History of Past illness Narrative* ProblemNoted Date Resolved DateLesion of ulnar nervePain in limb12/15/2004 11/10/2018documented as of this encounter (statuses as of 10/29/2021) [facility] History of Past illness Narrative* ProblemNoted Date Resolved DateLesion of ulnar nervePain in limb12/15/2004 11/10/2018documented as of this encounter (statuses as of 10/30/2021) [facility] History of Past illness Narrative* ProblemNoted Date Resolved DateLesion of ulnar nervePain in limb12/15/2004 11/10/2018documented as of this encounter (statuses as of 10/30/2021) [facility] History of Past illness Narrative* ProblemNoted Date Resolved DateLesion of ulnar nervePain in limb12/15/2004 11/10/2018documented as of this encounter (statuses as of 11/02/2021) [facility] History of Past illness Narrative* ProblemNoted Date Resolved DateLesion of ulnar nervePain in limb12/15/2004 11/10/2018documented as of this encounter (statuses as of 11/11/2021) [facility] History of Past illness Narrative* ProblemNoted Date Resolved DateLesion of ulnar nervePain in limb12/15/2004 11/10/2018documented as of this encounter (statuses as of 11/12/2021) [facility] History of Past illness Narrative* ProblemNoted Date Resolved DateLesion of ulnar nervePain in limb12/15/2004 11/10/2018documented as of this encounter (statuses as of 01/18/2022) [facility] History of Past illness Narrative* ProblemNoted Date Resolved DateLesion of ulnar nervePain in limb12/15/2004 11/10/2018documented as of this encounter (statuses as of 01/26/2022) [facility] History of Past illness Narrative* ProblemNoted Date Resolved DateLesion of ulnar nervePain in limb12/15/2004 11/10/2018documented as of this encounter (statuses as of 01/29/2022) [facility] History of Past illness Narrative* ProblemNoted Date Resolved DateLesion of ulnar nervePain in limb12/15/2004 11/10/2018documented as of this encounter (statuses as of 02/03/2022) [facility] History of Past illness Narrative* ProblemNoted Date Resolved DateLesion of ulnar nervePain in limb12/15/2004 11/10/2018documented as of this encounter (statuses as of 02/12/2022) [address]06[address]2005 History of Past illness Narrative* ProblemNoted Date Resolved DateLesion of ulnar nervePain in limb12/15/2004 11/10/2018documented as of this encounter (statuses as of 02/15/2022) [address]06[address]2005 History of Past illness Narrative* ProblemNoted Date Resolved DateLesion of ulnar nervePain in limb12/15/2004 11/10/2018documented as of this encounter (statuses as of 02/15/2022) [place] [address]06-2005 History of Past illness Narrative* ProblemNoted Date Resolved DateLesion of ulnar nervePain in limb12/15/2004 11/10/2018documented as of this encounter (statuses as of 04/23/2022) [facility] History of Past illness Narrative* ProblemNoted Date Resolved DateLesion of ulnar nervePain in limb12/15/2004 11/10/2018documented as of this encounter (statuses as of 04/29/2022) [facility] History of Past illness Narrative* ProblemNoted Date Resolved DateLesion of ulnar nervePain in limb12/15/2004 11/10/2018documented as of this encounter (statuses as of 05/20/2022) [facility] History of Past illness Narrative* ProblemNoted Date Resolved DateLesion of ulnar nervePain in limb12/15/2004 11/10/2018documented as of this encounter (statuses as of 05/25/2022) [facility] History of Past illness Narrative* ProblemNoted Date Resolved DateLesion of ulnar nervePain in limb12/15/2004 11/10/2018documented as of this encounter (statuses as of 05/28/2022) [address]06[address]2005 History of Past illness Narrative* ProblemNoted Date Resolved DateLesion of ulnar nervePain in limb12/15/2004 11/10/2018documented as of this encounter (statuses as of 06/03/2022) [place] [address]2005 History of Past illness Narrative* ProblemNoted Date Resolved DateLesion of ulnar nervePain in limb12/15/2004 11/10/2018documented as of this encounter (statuses as of 06/09/2022) [facility] History of Past illness Narrative* ProblemNoted Date Resolved DateLesion of ulnar nervePain in limb12/15/2004 11/10/2018documented as of this encounter (statuses as of 06/24/2022) [facility] History of Past illness Narrative* ProblemNoted Date Resolved DateLesion of ulnar nervePain in limb12/15/2004 11/10/2018documented as of this encounter (statuses as of 06/24/2022) [facility] History of Past illness Narrative* ProblemNoted Date Resolved DateLesion of ulnar nervePain in limb12/15/2004 11/10/2018documented as of this encounter (statuses as of 07/01/2022) [facility] History of Past illness Narrative* ProblemNoted Date Resolved DateLesion of ulnar nervePain in limb12/15/2004 11/10/2018documented as of this encounter (statuses as of 08/04/2022) [facility] History of Past illness Narrative* ProblemNoted Date Resolved DateLesion of ulnar nervePain in limb12/15/2004 11/10/2018documented as of this encounter (statuses as of 09/09/2022) [place] [address]2005 History of Past illness Narrative* ProblemNoted Date Resolved DateLesion of ulnar nervePain in limb12/15/2004 11/10/2018documented as of this encounter (statuses as of 09/15/2022) [facility] History of Past illness Narrative* ProblemNoted Date Resolved DateLesion of ulnar nervePain in limb12/15/2004 11/10/2018documented as of this encounter (statuses as of 09/30/2022) [facility] History of Past illness Narrative* ProblemNoted Date Diagnosed DateResolved DateLesion of ulnar nervePain in limbdocumented as of this encounter (statuses as of 11/13/2022) [facility] History of Past illness Narrative* ProblemNoted Date Diagnosed DateResolved DateLesion of ulnar nervePain in limbdocumented as of this encounter (statuses as of 12/15/2022) [facility] History of Past illness Narrative* ProblemNoted Date Diagnosed DateResolved DateLesion of ulnar nervePain in limbdocumented as of this encounter (statuses as of 12/18/2022) [facility] History of Past illness Narrative* ProblemNoted Date Diagnosed DateResolved DateLesion of ulnar nervePain in limbdocumented as of this encounter (statuses as of 12/31/2022) [facility] History of Past illness Narrative* ProblemNoted Date Diagnosed DateResolved DateLesion of ulnar nervePain in limbdocumented as of this encounter (statuses as of 12/31/2022) [facility] History of Past illness Narrative* ProblemNoted Date Diagnosed DateResolved DateLesion of ulnar nervePain in limb12/15/documented as of this encounter (statuses as of 06/13/2023) [facility]2005 History of Past illness Narrative* ProblemNoted Date Diagnosed DateResolved DateLesion of ulnar nervePain in limbdocumented as of this encounter (statuses as of 06/16/2023) [facility]2005 History of Past illness Narrative* ProblemNoted Date Diagnosed DateResolved DateLesion of ulnar nervePain in limbdocumented as of this encounter (statuses as of 06/24/2023) [facility]2005 History of Past illness Narrative* ProblemNoted Date Diagnosed DateResolved DateLesion of ulnar nervePain in limb12/15/documented as of this encounter (statuses as of 07/27/2023) [facility]2005 History of Past illness Narrative* ProblemNoted Date Diagnosed DateResolved DateLesion of ulnar nervePain in limbdocumented as of this encounter (statuses as of 07/27/2023) [facility] History of Past illness Narrative* ProblemNoted Date Diagnosed DateResolved DateLesion of ulnar nervePain in limbdocumented as of this encounter (statuses as of 07/29/2023) [facility] Future App[facility]ments Appointment Date:07/07/2021 09:45:00 AM Scheduled Provider:Jamey Malone MD Location[facility]ments Appointment Date:11/24/2021 01:15:00 PM Scheduled Provider:Jamey Malone MD Location:[facility] Appointment [facility] Future Appointments Appointment Date:12/21/2021 02:15:00 PM Scheduled Provider:Jamey Malone MD Location:[facility] Appointment Type:Pain Management - Follow Up (FT) Appointment Date:01/12/2022 03:15:00 PM Scheduled Provider:Ryan LIVE MD Location:[facility] Appointment Type:URO [facility] Future Appointments Appointment Date:01/14/2023 09:15:00 AM Scheduled Provider:Ryan LIVE MD Location:[facility] Appointment Type:URO Office Visit [facility] Evaluation + Plan note Future Appointments Appointment Date:08/30/2022 10:15:00 AM Scheduled Provider:Ryan LIVE MD Location:[facility] Appointment Type:URO Office Visit Appointment Date:08/31/2022 11:30:00 AM Scheduled Provider:Jamey Malone MD Location:[facility] Appointment Type:Pain Management - Follow Up (FT) Appointment Date:01/14/2023 09:15:00 AM Scheduled Provider:Ryan LIVE MD Location:[facility] Future Appointments Appointment Date:11/22/2022 11:00:00 AM Scheduled Provider:Jamey Malone MD Location:[facility] Appointment Type:Pain Management - Follow Up (FT) Appointment Date:01/14/2023 09:15:00 AM Scheduled Provider:Ryan LIVE [facility] Future Appointments Appointment Date:03/07/2023 11:15:00 AM Scheduled Provider:Kristie Saavedra PA-C Location:[facility] Appointment Type:Pain Management - Follow Up (FT) Appointment Date:07/26/2023 08:45:00 AM Scheduled Provider:Ryan LIVE MD Location:[facility] Future Appointments Appointment Date:02/07/2024 01:00:00 PM Scheduled Provider:Ryan LIVE MD Location:[facility] Appointment Type:URO Office Visit [facility] Evaluation + Plan note Future Appointments Appointment Date:08/18/2023 11:15:00 AM Scheduled Provider:Anirudh Arroyo DO Location:[facility] Appointment Type:Pain Management - Follow Up (FT) Appointment Date:02/07/2024 01:00:00 PM Scheduled Provider:Ryan LIVE MD Location:[facility]ment [facility] Future Appointments Appointment Date:07/17/2024 08:45:00 AM Scheduled Provider:Ryan LIVE MD Location:[facility] Appointment Type:URO Office Visit [facility] evaluation + Plan note Future Appointments Appointment Date:02/21/2025 10:20:00 AM Scheduled Provider:ROSEMARY Rodas APRN, [place] [facility] Location:[facility] Appointment Type:URO Office Visit [facility] evaluation note* Diagnosis Transient loss of consciousness- Primary Syncope and collapse Near syncope Syncope and collapse Labile blood pressure Elevated blood pressure reading without diagnosis of hypertension documented in this encounter [facility] note* Diagnosis Orthostatic lightheadedness- Primary Dizziness and giddiness documented in this encounter [facility] note* Diagnosis Orthostatic lightheadedness- Primary Dizziness and giddiness documented in this encounter [facility] noteNo [facility] [employer] Other [employer] note* Diagnosis Orthostatic intolerance- Primary Disturbance of skin sensation Resting tremor Abnormal involuntary movements Dizziness Dizziness and giddiness documented in this encounter [facility] note* Diagnosis Screening breast examination Breast screening, unspecified documented in this encounter [facility] note* Diagnosis Mastalgia- Primary Mastodynia Rib pain on left side Chest pain, unspecified documented in this encounter [facility] note* Diagnosis Orthostatic hypotension- Primary documented in this encounter [facility] note* Diagnosis Orthostatic lightheadedness- Primary Dizziness and giddiness documented in this encounter [facility] note* Diagnosis Dizziness- Primary Dizziness and giddiness Hypotension, chronic Chronic hypotension Syncope, unspecified syncope type POTS (postural orthostatic tachycardia syndrome) Tachycardia, unspecified documented in this encounter [facility] note* Diagnosis Dizziness- Primary Dizziness and giddiness documented in this encounter [facility] noteNo assessment information availableMansfield Hospital Work Phone: Evaluation note* Diagnosis Transient loss of consciousness- Primary Syncope and collapse documented in this encounter [facility] note* Diagnosis Orthostatic lightheadedness- Primary Dizziness and giddiness documented in this encounter [facility] note* Diagnosis Dizziness- Primary Dizziness and giddiness documented in this encounter [facility] note* Diagnosis Dizziness- Primary Dizziness and giddiness Hypotension, chronic Chronic hypotension POTS (postural orthostatic tachycardia syndrome) Tachycardia, unspecified documented in this encounter [facility] note* Diagnosis Well controlled type 2 diabetes mellitus with neurological manifestations (HCC) Type II or unspecified type diabetes mellitus with neurological manifestations, not stated as uncontrolled documented in this encounter [facility] note* Diagnosis 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 Mixed hyperlipidemia documented in this encounter [facility] note* Diagnosis Elevated TSH- Primary Nonspecific abnormal results of thyroid function study Well controlled type 2 diabetes mellitus with neurological manifestations (HCC) Type II or unspecified type diabetes mellitus with neurological manifestations, not stated as uncontrolled Other hyperlipidemia [E78.49 (ICD-10-CM)] documented in this encounter [facility] note* Diagnosis POTS (postural orthostatic tachycardia syndrome)- Primary Tachycardia, unspecified Hypotension, chronic Chronic hypotension Palpitations Dizziness Dizziness and giddiness documented in this encounter [facility] note* Diagnosis Pain of foot, unspecified laterality documented in this encounter [facility] noteNort [employer] Other Evaluation [facility]NoNor[facility] [employer] Other Evaluation note* Diagnosis 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 Fatigue, unspecified type documented in this encounter [facility] note* Diagnosis Costochondritis, acute- Primary Tietze's disease documented in this encounter [facility] note* Diagnosis Encounter for breast cancer screening other than mammogram Breast screening, unspecified Breast pain Mastodynia Encounter for screening mammogram for malignant neoplasm of breast Other screening mammogram [facility]* Diagnosis Left foot pain- Primary Pain in soft tissues of limb [facility] Diagnosis Left foot pain- Primary Pain in soft tissues of limb [facility]* Diagnosis Labile blood pressure- Primary Elevated blood pressure reading without diagnosis of hypertension Near syncope Syncope and collapse documented in this encounter [facility] note* Diagnosis Labile blood pressure- Primary Elevated blood pressure reading without diagnosis of hypertension Orthostatic lightheadedness Dizziness and giddiness Abnormal saccadic eye movement Pursuit movement deficiency Deficiencies of smooth pursuit movements Other symptoms and signs involving the nervous system Left leg weakness Other musculoskeletal symptoms referable to limbs Disturbance of skin sensation Pain of foot, unspecified laterality Postural instability Disorders of soft tissue, unspecified [facility]* Diagnosis Pain of foot, unspecified laterality documented in this encounter [facility] note* Diagnosis POTS (postural orthostatic tachycardia syndrome)- Primary Tachycardia, unspecified Orthostatic lightheadedness Dizziness and giddiness Palpitations Dizziness Dizziness and giddiness Mixed hyperlipidemia documented in this encounter [facility] note* Diagnosis Low back pain with right-sided sciatica, unspecified back pain laterality, unspecified chronicity- Primary Left leg weakness Other musculoskeletal symptoms referable to limbs Disturbance of skin sensation Type 2 diabetes mellitus with diabetic polyneuropathy, without long-term current use of insulin (HCC) Paresthesia of skin Disturbance of skin sensation documented in this encounter [facility] note* Diagnosis 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 documented in this encounter [facility] note* Diagnosis Well controlled type 2 diabetes mellitus with neurological manifestations (HCC) Type II or unspecified type diabetes mellitus with neurological manifestations, not stated as uncontrolled [facility]* Diagnosis Postural instability- Primary Disorders of soft tissue, unspecified Labile blood pressure Elevated blood pressure reading without diagnosis of hypertension Abnormal saccadic eye movement Pursuit movement deficiency Deficiencies of smooth pursuit movements Labile blood pressure Elevated blood pressure reading without diagnosis of hypertension Abnormal saccadic eye movement Pursuit movement deficiency Deficiencies of smooth pursuit movements Other symptoms and signs involving the nervous system [facility] Diagnosis Labile blood pressure Elevated blood pressure reading without diagnosis of hypertension Abnormal saccadic eye movement Pursuit movement deficiency Deficiencies of smooth pursuit movements Other symptoms and signs involving the nervous system [facility] Diagnosis 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 Type II or unspecified type diabetes mellitus with neurological manifestations, not stated as uncontrolled [facility]* Diagnosis Labile blood pressure- Primary Elevated blood pressure reading without diagnosis of hypertension Abnormal saccadic eye movement Pursuit movement deficiency Deficiencies of smooth pursuit movements Other symptoms and signs involving the nervous system [facility]* Diagnosis Labile blood pressure Elevated blood pressure reading without diagnosis of hypertension Abnormal saccadic eye movement Pursuit movement deficiency Deficiencies of smooth pursuit movements Other symptoms and signs involving the nervous system [facility]* Diagnosis Pre-operative clearance- Primary Preoperative examination, unspecified Pain in extremity, unspecified extremity Essential hypertension, benign Uncontrolled type 2 diabetes with neuropathy Type II or unspecified type diabetes mellitus with neurological manifestations, uncontrolled Mixed hyperlipidemia Iron deficiency anemia, unspecified iron deficiency anemia type Diarrhea due to malabsorption Personal history of other diseases of digestive system Spinal stenosis of cervical region- Primary Spinal stenosis in cervical region Spinal stenosis of lumbar region, unspecified whether neurogenic claudication present Lumbosacral spondylosis with radiculopathy Bilateral arm weakness Other musculoskeletal symptoms referable to limbs [facility]* Diagnosis Pre-operative clearance- Primary Preoperative examination, unspecified Pain in extremity, unspecified extremity Essential hypertension, benign Uncontrolled type 2 diabetes with neuropathy Type II or unspecified type diabetes mellitus with neurological manifestations, uncontrolled Mixed hyperlipidemia Iron deficiency anemia, unspecified iron deficiency anemia type Diarrhea due to malabsorption Personal history of other diseases of digestive system 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 Spinal stenosis of lumbar region, unspecified whether neurogenic claudication present Lumbosacral spondylosis with radiculopathy [facility]* Diagnosis Pre-operative clearance- Primary Preoperative examination, unspecified Pain in extremity, unspecified extremity Essential hypertension, benign Uncontrolled type 2 diabetes with neuropathy Type II or unspecified type diabetes mellitus with neurological manifestations, uncontrolled Mixed hyperlipidemia Iron deficiency anemia, unspecified iron deficiency anemia type Diarrhea due to malabsorption Personal history of other diseases of digestive system Spinal stenosis of lumbar region, unspecified whether neurogenic claudication present Lumbosacral spondylosis with radiculopathy [facility] Diagnosis Pre-operative clearance- Primary Preoperative examination, unspecified Pain in extremity, unspecified extremity Essential hypertension, benign Uncontrolled type 2 diabetes with neuropathy Type II or unspecified type diabetes mellitus with neurological manifestations, uncontrolled Mixed hyperlipidemia Iron deficiency anemia, unspecified iron deficiency anemia type Diarrhea due to malabsorption Personal history of other diseases of digestive system Spinal stenosis of cervical region Spinal stenosis in cervical region Bilateral arm weakness Other musculoskeletal symptoms referable to limbs [facility]* Diagnosis Pre-operative clearance- Primary Preoperative examination, unspecified Pain in extremity, unspecified extremity Essential hypertension, benign Uncontrolled type 2 diabetes with neuropathy Type II or unspecified type diabetes mellitus with neurological manifestations, uncontrolled Mixed hyperlipidemia Iron deficiency anemia, unspecified iron deficiency anemia type Diarrhea due to malabsorption Personal history of other diseases of digestive system Spinal stenosis of lumbar region, unspecified whether neurogenic claudication present Lumbosacral spondylosis with radiculopathy [facility]* Diagnosis Pre-operative clearance- Primary Preoperative examination, unspecified Pain in extremity, unspecified extremity Essential hypertension, benign Uncontrolled type 2 diabetes with neuropathy Type II or unspecified type diabetes mellitus with neurological manifestations, uncontrolled Mixed hyperlipidemia Iron deficiency anemia, unspecified iron deficiency anemia type Diarrhea due to malabsorption Personal history of other diseases of digestive system Near syncope- Primary Syncope and collapse Labile blood pressure Elevated blood pressure reading without diagnosis of hypertension [facility]* Diagnosis Pre-operative clearance- Primary Preoperative examination, unspecified Pain in extremity, unspecified extremity Essential hypertension, benign Uncontrolled type 2 diabetes with neuropathy Type II or unspecified type diabetes mellitus with neurological manifestations, uncontrolled Mixed hyperlipidemia Iron deficiency anemia, unspecified iron deficiency anemia type Diarrhea due to malabsorption Personal history of other diseases of digestive system Neurogenic orthostatic hypotension (HCC)- Primary Imbalance Abnormality of gait Orthostatic lightheadedness Dizziness and giddiness [facility]* Diagnosis Pre-operative clearance- Primary Preoperative examination, unspecified Pain in extremity, unspecified extremity Essential hypertension, benign Uncontrolled type 2 diabetes with neuropathy Type II or unspecified type diabetes mellitus with neurological manifestations, uncontrolled Mixed hyperlipidemia Iron deficiency anemia, unspecified iron deficiency anemia type Diarrhea due to malabsorption Personal history of other diseases of digestive system Orthostatic hypotension- Primary documented in this encounter [facility] note* Author Zenobia Jackson [facility] HospitalAuthoredSeptember 2023 11:34amNurse visit by Zenobia Jackson LPN [facility] Work Phone: Evaluation note* Diagnosis Pre-operative clearance- Primary Preoperative examination, unspecified Pain in extremity, unspecified extremity Essential hypertension, benign Uncontrolled type 2 diabetes with neuropathy Type II or unspecified type diabetes mellitus with neurological manifestations, uncontrolled Mixed hyperlipidemia Iron deficiency anemia, unspecified iron deficiency anemia type Diarrhea due to malabsorption Personal history of other diseases of digestive system Type 2 diabetes mellitus with stage 3a chronic kidney disease, without long-term current use of insulin (HCC)- Primary Overweight (BMI 25.0-29.9) Overweight BMI 27.0-27.9,adult Body Mass Index 27.0-27.9, adult documented in this encounter [facility] note* Diagnosis Pre-operative clearance- Primary Preoperative examination, unspecified Pain in extremity, unspecified extremity Essential hypertension, benign Uncontrolled type 2 diabetes with neuropathy Type II or unspecified type diabetes mellitus with neurological manifestations, uncontrolled Mixed hyperlipidemia Iron deficiency anemia, unspecified iron deficiency anemia type Diarrhea due to malabsorption Personal history of other diseases of digestive system 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 Imbalance Abnormality of gait documented in this encounter [facility] note* Diagnosis Pre-operative clearance- Primary Preoperative examination, unspecified Pain in extremity, unspecified extremity Essential hypertension, benign Uncontrolled type 2 diabetes with neuropathy Type II or unspecified type diabetes mellitus with neurological manifestations, uncontrolled Mixed hyperlipidemia Iron deficiency anemia, unspecified iron deficiency anemia type Diarrhea due to malabsorption Personal history of other diseases of digestive system Fibrocystic breast changes, bilateral- Primary Mastodynia Family history of breast cancer Family history of malignant neoplasm of breast Family history of ovarian cancer Family history of malignant neoplasm of ovary [facility]* Diagnosis Pre-operative clearance- Primary Preoperative examination, unspecified Pain in extremity, unspecified extremity Essential hypertension, benign Uncontrolled type 2 diabetes with neuropathy Type II or unspecified type diabetes mellitus with neurological manifestations, uncontrolled Mixed hyperlipidemia Iron deficiency anemia, unspecified iron deficiency anemia type Diarrhea due to malabsorption Personal history of other diseases of digestive system Breast disease Unspecified breast disorder Mastodynia [facility]* Diagnosis Pre-operative clearance- Primary Preoperative examination, unspecified Pain in extremity, unspecified extremity Essential hypertension, benign Uncontrolled type 2 diabetes with neuropathy Type II or unspecified type diabetes mellitus with neurological manifestations, uncontrolled Mixed hyperlipidemia Iron deficiency anemia, unspecified iron deficiency anemia type Diarrhea due to malabsorption Personal history of other diseases of digestive system Lumbosacral spondylosis with radiculopathy- Primary Anterolisthesis of cervical spine Spinal stenosis of lumbar region, unspecified whether neurogenic claudication present Scoliosis, unspecified scoliosis type, unspecified spinal region Anterolisthesis of cervical spine [facility]* Diagnosis Pre-operative clearance- Primary Preoperative examination, unspecified Pain in extremity, unspecified extremity Essential hypertension, benign Uncontrolled type 2 diabetes with neuropathy Type II or unspecified type diabetes mellitus with neurological manifestations, uncontrolled Mixed hyperlipidemia Iron deficiency anemia, unspecified iron deficiency anemia type Diarrhea due to malabsorption Personal history of other diseases of digestive system Disturbance of skin sensation- Primary [facility]* Diagnosis Pre-operative clearance- Primary Preoperative examination, unspecified Pain in extremity, unspecified extremity Essential hypertension, benign Uncontrolled type 2 diabetes with neuropathy Type II or unspecified type diabetes mellitus with neurological manifestations, uncontrolled Mixed hyperlipidemia Iron deficiency anemia, unspecified iron deficiency anemia type Diarrhea due to malabsorption Personal history of other diseases of digestive system 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 Imbalance Abnormality of gait [facility]* Diagnosis Pre-operative clearance- Primary Preoperative examination, unspecified Pain in extremity, unspecified extremity Essential hypertension, benign Uncontrolled type 2 diabetes with neuropathy Type II or unspecified type diabetes mellitus with neurological manifestations, uncontrolled Mixed hyperlipidemia Iron deficiency anemia, unspecified iron deficiency anemia type Diarrhea due to malabsorption Personal history of other diseases of digestive system Anterolisthesis of cervical spine [facility] Diagnosis Pre-operative clearance- Primary Preoperative examination, unspecified Pain in extremity, unspecified extremity Essential hypertension, benign Uncontrolled type 2 diabetes with neuropathy Type II or unspecified type diabetes mellitus with neurological manifestations, uncontrolled Mixed hyperlipidemia Iron deficiency anemia, unspecified iron deficiency anemia type Diarrhea due to malabsorption Personal history of other diseases of digestive system Post-op pain Other acute postoperative pain documented in this encounter [facility] note* Diagnosis Pre-operative clearance- Primary Preoperative examination, unspecified Pain in extremity, unspecified extremity Essential hypertension, benign Uncontrolled type 2 diabetes with neuropathy Type II or unspecified type diabetes mellitus with neurological manifestations, uncontrolled Mixed hyperlipidemia Iron deficiency anemia, unspecified iron deficiency anemia type Diarrhea due to malabsorption Personal history of other diseases of digestive system Spinal stenosis of lumbar region, unspecified whether neurogenic claudication present- Primary Lumbosacral spondylosis with radiculopathy Spinal stenosis of lumbar region, unspecified whether neurogenic claudication present Lumbosacral spondylosis with radiculopathy documented in this encounter [facility] note* Diagnosis Pre-operative clearance- Primary Preoperative examination, unspecified Pain in extremity, unspecified extremity Essential hypertension, benign Uncontrolled type 2 diabetes with neuropathy Type II or unspecified type diabetes mellitus with neurological manifestations, uncontrolled Mixed hyperlipidemia Iron deficiency anemia, unspecified iron deficiency anemia type Diarrhea due to malabsorption Personal history of other diseases of digestive system Type 2 diabetes mellitus with stage 3a chronic kidney disease, without long-term current use of insulin (HCC)- Primary 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athy (HCC) Mixed hyperlipidemia Spinal stenosis of lumbar region, unspecified whether neurogenic claudication present Lumbosacral spondylosis with radiculopathy documented in this encounter [facility] note* Diagnosis Pre-operative clearance- Primary Preoperative examination, unspecified Pain in extremity, unspecified extremity Essential hypertension, benign Uncontrolled type 2 diabetes with neuropathy Type II or unspecified type diabetes mellitus with neurological manifestations, uncontrolled Mixed hyperlipidemia Iron deficiency anemia, unspecified iron deficiency anemia type Diarrhea due to malabsorption Personal history of other diseases of digestive system 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 Imbalance Abnormality of gait Spinal stenosis of lumbar region, unspecified whether neurogenic claudication present Lumbosacral spondylosis with radiculopathy documented in this encounter [facility] note* Diagnosis Pre-operative clearance- Primary Preoperative examination, unspecified Pain in extremity, unspecified extremity Essential hypertension, benign Uncontrolled type 2 diabetes with neuropathy Type II or unspecified type diabetes mellitus with neurological manifestations, uncontrolled Mixed hyperlipidemia Iron deficiency anemia, unspecified iron deficiency anemia type Diarrhea due to malabsorption Personal history of other diseases of digestive system Imbalance- Primary Abnormality of gait Spinal stenosis of lumbar region, unspecified whether neurogenic claudication present Lumbosacral spondylosis with radiculopathy [facility]* Diagnosis Pre-operative clearance- Primary Preoperative examination, unspecified Pain in extremity, unspecified extremity Essential hypertension, benign Uncontrolled type 2 diabetes with neuropathy Type II or unspecified type diabetes mellitus with neurological manifestations, uncontrolled Mixed hyperlipidemia Iron deficiency anemia, unspecified iron deficiency anemia type Diarrhea due to malabsorption Personal history of other diseases of digestive system Imbalance- Primary Abnormality of gait 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athy (HCC) [facility]* Diagnosis Pre-operative clearance- Primary Preoperative examination, unspecified Pain in extremity, unspecified extremity Essential hypertension, benign Uncontrolled type 2 diabetes with neuropathy Type II or unspecified type diabetes mellitus with neurological manifestations, uncontrolled Mixed hyperlipidemia Iron deficiency anemia, unspecified iron deficiency anemia type Diarrhea due to malabsorption Personal history of other diseases of digestive system Imbalance- Primary Abnormality of gait [facility]* Diagnosis Pre-operative clearance- Primary Preoperative examination, unspecified Pain in extremity, unspecified extremity Essential hypertension, benign Uncontrolled type 2 diabetes with neuropathy Type II or unspecified type diabetes mellitus with neurological manifestations, uncontrolled Mixed hyperlipidemia Iron deficiency anemia, unspecified iron deficiency anemia type Diarrhea due to malabsorption Personal history of other diseases of digestive system Fall, initial encounter- Primary Spinal stenosis of lumbar region, unspecified whether neurogenic claudication present Lumbosacral spondylosis with radiculopathy Scoliosis, unspecified scoliosis type, unspecified spinal region [facility]* Diagnosis Pre-operative clearance- Primary Preoperative examination, unspecified Pain in extremity, unspecified extremity Essential hypertension, benign Uncontrolled type 2 diabetes with neuropathy Type II or unspecified type diabetes mellitus with neurological manifestations, uncontrolled Mixed hyperlipidemia Iron deficiency anemia, unspecified iron deficiency anemia type Diarrhea due to malabsorption Personal history of other diseases of digestive system Orthostatic lightheadedness Dizziness and giddiness documented [facility]* Diagnosis Pre-operative clearance- Primary Preoperative examination, unspecified Pain in extremity, unspecified extremity Essential hypertension, benign Uncontrolled type 2 diabetes with neuropathy Type II or unspecified type diabetes mellitus with neurological manifestations, uncontrolled Mixed hyperlipidemia Iron deficiency anemia, unspecified iron deficiency anemia type Diarrhea due to malabsorption Personal history of other diseases of digestive system Postural instability- Primary Disorders of soft tissue, unspecified Abnormal saccadic eye movement Vertigo Dizziness and giddiness documented [facility]* Diagnosis Pre-operative clearance- Primary Preoperative examination, unspecified Pain in extremity, unspecified extremity Essential hypertension, benign Uncontrolled type 2 diabetes with neuropathy Type II or unspecified type diabetes mellitus with neurological manifestations, uncontrolled Mixed hyperlipidemia Iron deficiency anemia, unspecified iron deficiency anemia type Diarrhea due to malabsorption Personal history of other diseases of digestive system Type 2 diabetes mellitus with stage 3a chronic kidney disease, without long-term current use of insulin ([facility])- Primary documented in this encounter [facility] note* Diagnosis Pre-operative clearance- Primary Preoperative examination, unspecified Pain in extremity, unspecified extremity Essential hypertension, benign Uncontrolled type 2 diabetes with neuropathy Type II or unspecified type diabetes mellitus with neurological manifestations, uncontrolled Mixed hyperlipidemia Iron deficiency anemia, unspecified iron deficiency anemia type Diarrhea due to malabsorption Personal history of other diseases of digestive system Fall, initial encounter documented in this encounter [facility] note* Diagnosis Pre-operative clearance- Primary Preoperative examination, unspecified Pain in extremity, unspecified extremity Essential hypertension, benign Uncontrolled type 2 diabetes with neuropathy Type II or unspecified type diabetes mellitus with neurological manifestations, uncontrolled Mixed hyperlipidemia Iron deficiency anemia, unspecified iron deficiency anemia type Diarrhea due to malabsorption Personal history of other diseases of digestive system Spinal stenosis of lumbar region, unspecified whether neurogenic claudication present- Primary Lumbosacral spondylosis with radiculopathy Spinal stenosis of lumbar region, unspecified whether neurogenic claudication present Lumbosacral spondylosis with radiculopathy documented in this encounter [facility] note* Diagnosis Pre-operative clearance- Primary Preoperative examination, unspecified Pain in extremity, unspecified extremity Essential hypertension, benign Uncontrolled type 2 diabetes with neuropathy Type II or unspecified type diabetes mellitus with neurological manifestations, uncontrolled Mixed hyperlipidemia Iron deficiency anemia, unspecified iron deficiency anemia type Diarrhea due to malabsorption Personal history of other diseases of digestive system Orthostatic lightheadedness Dizziness and giddiness Spinal stenosis of lumbar region, unspecified whether neurogenic claudication present Lumbosacral spondylosis with radiculopathy [facility]* Author Nichole Castro [facility] HospitalAuthoredFebruary 2024 1:18pmThe above note written by PATRICIA Donnelly acting as human recorder, note dictated by Dr.Brett Gillis. [facility] Work Phone: Evaluation note* Diagnosis Pre-operative clearance- Primary Preoperative examination, unspecified Pain in extremity, unspecified extremity Essential hypertension, benign Uncontrolled type 2 diabetes with neuropathy Type II or unspecified type diabetes mellitus with neurological manifestations, uncontrolled Mixed hyperlipidemia Iron deficiency anemia, unspecified iron deficiency anemia type Diarrhea due to malabsorption Personal history of other diseases of digestive system 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athy (HCC) Spinal stenosis of lumbar region, unspecified whether neurogenic claudication present Lumbosacral spondylosis with radiculopathy documented in this encounter [facility] note* Diagnosis Pre-operative clearance- Primary Preoperative examination, unspecified Pain in extremity, unspecified extremity Essential hypertension, benign Uncontrolled type 2 diabetes with neuropathy Type II or unspecified type diabetes mellitus with neurological manifestations, uncontrolled Mixed hyperlipidemia Iron deficiency anemia, unspecified iron deficiency anemia type Diarrhea due to malabsorption Personal history of other diseases of digestive system Orthostatic lightheadedness Dizziness and giddiness Spinal stenosis of lumbar region, unspecified whether neurogenic claudication present Lumbosacral spondylosis with radiculopathy [facility] Diagnosis Pre-operative clearance- Primary Preoperative examination, unspecified Pain in extremity, unspecified extremity Essential hypertension, benign Uncontrolled type 2 diabetes with neuropathy Type II or unspecified type diabetes mellitus with neurological manifestations, uncontrolled Mixed hyperlipidemia Iron deficiency anemia, unspecified iron deficiency anemia type Diarrhea due to malabsorption Personal history of other diseases of digestive system Type 2 diabetes mellitus with stage 3a chronic kidney disease, without long-term current use of insulin (HCC)- Primary 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athy (HCC) Mixed hyperlipidemia documented in this encounter [facility] note* Diagnosis Pre-operative clearance- Primary Preoperative examination, unspecified Pain in extremity, unspecified extremity Essential hypertension, benign Uncontrolled type 2 diabetes with neuropathy Type II or unspecified type diabetes mellitus with neurological manifestations, uncontrolled Mixed hyperlipidemia Iron deficiency anemia, unspecified iron deficiency anemia type Diarrhea due to malabsorption (HCC) Personal history of other diseases of digestive system Lumbosacral spondylosis with radiculopathy- Primary Scoliosis, unspecified scoliosis type, unspecified spinal region Spinal stenosis of lumbar region, unspecified whether neurogenic claudication present [facility]* Diagnosis Pre-operative clearance- Primary Preoperative examination, unspecified Pain in extremity, unspecified extremity Essential hypertension, benign Uncontrolled type 2 diabetes with neuropathy Type II or unspecified type diabetes mellitus with neurological manifestations, uncontrolled Mixed hyperlipidemia Iron deficiency anemia, unspecified iron deficiency anemia type Diarrhea due to malabsorption (HCC) Personal history of other diseases of digestive system Type 2 diabetes mellitus with stage 3a chronic kidney disease, without long-term current use of insulin (HCC)- Primary [facility]* Diagnosis Pre-operative clearance- Primary Preoperative examination, unspecified Pain in extremity, unspecified extremity Essential hypertension, benign Uncontrolled type 2 diabetes with neuropathy Type II or unspecified type diabetes mellitus with neurological manifestations, uncontrolled Mixed hyperlipidemia Iron deficiency anemia, unspecified iron deficiency anemia type Diarrhea due to malabsorption (HCC) Personal history of other diseases of digestive system Lumbosacral spondylosis with radiculopathy- Primary Spinal stenosis of lumbar region, unspecified whether neurogenic claudication present Lumbosacral spondylosis with radiculopathy Spinal stenosis of lumbar region, unspecified whether neurogenic claudication present [facility] Diagnosis Pre-operative clearance- Primary Preoperative examination, unspecified Pain in extremity, unspecified extremity Essential hypertension, benign Uncontrolled type 2 diabetes with neuropathy Type II or unspecified type diabetes mellitus with neurological manifestations, uncontrolled Mixed hyperlipidemia Iron deficiency anemia, unspecified iron deficiency anemia type Diarrhea due to malabsorption (HCC) Personal history of other diseases of digestive system Type 2 diabetes mellitus with stage 3a chronic kidney disease, without long-term current use of insulin (HCC)- Primary Mixed hyperlipidemia 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athy (HCC) Constipation, unspecified constipation type documented [facility] this [facility]* Diagnosis Pre-operative clearance- Primary Preoperative examination, unspecified Pain in extremity, unspecified extremity Essential hypertension, benign Uncontrolled type 2 diabetes with neuropathy Type II or unspecified type diabetes mellitus with neurological manifestations, uncontrolled Mixed hyperlipidemia Iron deficiency anemia, unspecified iron deficiency anemia type Diarrhea due to malabsorption (HCC) Personal history of other diseases of digestive system Orthostatic hypotension- Primary 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 Erich Gillis. [facility] Work Phone: Evaluation note* Diagnosis Pre-operative clearance- Primary Preoperative examination, unspecified Pain in extremity, unspecified extremity Essential hypertension, benign Uncontrolled type 2 diabetes with neuropathy Type II or unspecified type diabetes mellitus with neurological manifestations, uncontrolled Mixed hyperlipidemia Iron deficiency anemia, unspecified iron deficiency anemia type Diarrhea due to malabsorption (HCC) Personal history of other diseases of digestive system Trochanteric bursitis of right hip- Primary Enthesopathy of hip region Lumbosacral spondylosis with radiculopathy Scoliosis, unspecified scoliosis type, unspecified spinal region Lumbosacral stenosis Spinal stenosis, lumbar region, without neurogenic claudication Trochanteric bursitis of right hip Enthesopathy of hip region Lumbosacral spondylosis with radiculopathy Scoliosis, unspecified scoliosis type, unspecified spinal region Lumbosacral stenosis Spinal stenosis, lumbar region, without neurogenic claudication documented [facility]* Diagnosis Pre-operative clearance- Primary Preoperative examination, unspecified Pain in extremity, unspecified extremity Essential hypertension, benign Uncontrolled type 2 diabetes with neuropathy Type II or unspecified type diabetes mellitus with neurological manifestations, uncontrolled Mixed hyperlipidemia Iron deficiency anemia, unspecified iron deficiency anemia type Diarrhea due to malabsorption (HCC) Personal history of other diseases of digestive system Trochanteric bursitis of right hip- Primary Enthesopathy of hip region Lumbosacral spondylosis with radiculopathy Scoliosis, unspecified scoliosis type, unspecified spinal region Lumbosacral stenosis Spinal stenosis, lumbar region, without neurogenic claudication documented [facility]* Diagnosis Pre-operative clearance- Primary Preoperative examination, unspecified Pain in extremity, unspecified extremity Essential hypertension, benign Uncontrolled type 2 diabetes with neuropathy Type II or unspecified type diabetes mellitus with neurological manifestations, uncontrolled Mixed hyperlipidemia Iron deficiency anemia, unspecified iron deficiency anemia type Diarrhea due to malabsorption (HCC) Personal history of other diseases of digestive system Lumbosacral spondylosis with radiculopathy Scoliosis, unspecified scoliosis type, unspecified spinal region Spinal stenosis of lumbar region, unspecified whether neurogenic claudication present Lumbosacral spondylosis with radiculopathy Scoliosis, unspecified scoliosis type, unspecified spinal region Lumbosacral stenosis Spinal stenosis, lumbar region, without neurogenic claudication Spinal stenosis, lumbar region, without neurogenic claudication [facility]* Diagnosis Pre-operative clearance- Primary Preoperative examination, unspecified Pain in extremity, unspecified extremity Essential hypertension, benign Uncontrolled type 2 diabetes with neuropathy Type II or unspecified type diabetes mellitus with neurological manifestations, uncontrolled Mixed hyperlipidemia Iron deficiency anemia, unspecified iron deficiency anemia type Diarrhea due to malabsorption (HCC) Personal history of other diseases of digestive system Orthostatic lightheadedness Dizziness and giddiness documented [facility]* Diagnosis Onset Date Resolution Status Admit Date Anxiety and depression acuteSeptember 2024 9:54amConstipationacuteSeptember 2024 9:54am Elevated TSHacuteSeptember 2024 9:54amLumbar radiculopathyacuteSeptember 2024 9:54amNeuropathyacuteSeptember 2024 9:54amType 2 diabetes mellitus with complicationsacuteSeptember 2024 9:54am [facility] Work Phone: Evaluation note* Author Corina Carter [facility] HospitalAuthoredOctdeaconess hospital 2024 10:57amAssessment: Highest weight: 191.0 lbs Start weight: 186.0 lbs. Starting Date: 01-28-2025. 1. Abnormal weight gain 2. Obesity-the patient will treat with long-term lifestyle changes of improved nutrition, increased exercise and activity, stress reduction, adequate sleep and behavioral modification versus short-term dieting. [ ] 3. [ ] 4. [ ] 5. [ ] 6. [ ] 7. [ ] 8. [ ] 9. [ ] 10. [ ] 11. [ ] Follow up with me in 6 weeks. New labs needed: [TSH, cholesterol profile, and CMP] The patient was instructed to consider logging [...] Our exercise program was recommended with our screw cutter/obesity exercise group. Handout given. Our free weekly [...] and benefits of prescribed meds discussed. Initial [id number] interview/evaluation. The patient was counseled in detail on the options for weight loss in an individual setting. [ ] minutes was spent caring for the patient, counseling/educating patient on the options for the treatment of obesity and related healthcare issues. The program's treatment goals were reviewed with the patient. Each aspect of the program was discussed with the patient. [facility] Work Phone: History general Narrative - ReportedPodTech Other History general Narrative - ReportedPodTech Other History general Narrative - ReportedPodTech Other Hospital course Narrative No data available for this section [facility] Discharge instructions No data available for this section [facility] Discharge instructions Additional Instructions DR. BOOTH'S POST OP INSTRUCTIONS Take prescribed pain medication as directed and as needed to control your post- operative pain. -In addition to the prescribed medication, you may take ibuprofen (Advil, Motrin) or naproxen (Aleve/Naprosyn) to help control pain and decrease swelling. -DO NOT TAKE ibuprofen/Naprosyn/naproxen if you have a history of bleeding ulcer, are taking anticoagulation medication (Coumadin/warfarin, Eliquis, Xarelto, Plavix, Lovenox), if you have had a history of gastric bypass surgery, or if you have a history of kidney disease. Elevate the operative area as much as possible, using at least 2-3 pillows, keeping the hand higher than the elbow. Keep ice at the operative area as much as possible. It takes longer than 20 minutes for the cold to penetrate the bandages, so leave the ice bag or cold pack in place until the ice melts, then it is time to change to a fresh ice bag or cold pack. -Elevation and ice help to lessen the swelling post-operatively which helps to lessen pain so that you will need to take less pain medication, as well as maintaining better range of motion and function of your hand (more swelling, less movement). You may wiggle your fingers, bending, flexing, and move them to decrease stiffness. You may use your hands for light activities of 2-5 lbs. This is lifting your coffee cup, using your silverware, and typing on a computer or tablet. -Do NOT perform strenuous lifting or lift greater than 10 lbs until 4-6 weeks after surgery to minimize exacerbation of pain at the surgery site. DO NOT REMOVE your bandage; it will be removed and changed at our first office appointment in one week - Keep the bandage covered with a plastic bag or cast cover in the shower - You may loosen the bandage if too tight DO NOT REMOVE your splint; leave your splint in place until your office appointment in one week - Keep your splint covered with a plastic bag or cast cover in the shower - You may loosen the splint if too tight - Patient was counseled on bone healing protocol including smoking cessation/ avoidance of nicotine products, appropriate weight bearing restrictions and limitations, and vitamin supplementation to aid in bone and fracture healing/ strengthening. Patient was counseled to take: 1) Vitamin C 500 mg PO Q daily 2) Calcium 500-600 mg/ Vitamin D 200-400 Units PO Q TID Take antibiotics as directed to decrease risk of infection after surgery [facility] Work Phone: Progress note No data available for this section [facility] for referral (narrative)* Diagnostic Procedure Only (Routine) - ClosedSpecialtyDiagnoses / ProceduresReferred By ContactReferred To [facility] Diagnoses Screening breast examination Procedures ITALO SCREENING SCREENING MAMMOGRAPHY BI 2-VIEW BREAST [place], [place] [address] [place] [id number] [facility] [address] [place] [id number] Ref[facility] DateExpiration DateVisits RequestedVisits [id number] Auto-Generated Referral / [facility] for referral (narrative)* Outpatient Procedure (Routine) - AuthorizedSpecialtyDiagnoses / ProceduresReferred By ContactReferred To [facility] Diagnoses Dizziness Procedures ECG COMPLETE ECG ROUTINE ECG W/LEAST 12 LDS W/I&R Da King MD [address] [place] [address] [facility] [address] [place] [id number] Ref[facility] IDStatus[facility] DateExpiration DateVisits RequestedVisits [id number] Auto-Generated Referral [facility] for referral (narrative)* Outpatient Procedure (Routine) - AuthorizedSpecialtyDiagnoses / ProceduresReferred By ContactReferred To [facility] Diagnoses Dizziness Procedures ECG COMPLETE ECG ROUTINE ECG W/LEAST 12 LDS W/I&R Da King MD [address] [place] [address] [place] [address] Referral IDStatusReasonStart DateExpiration DateVisits RequestedVisits [id number] Auto-Generated Referral [facility] for referral (narrative)* Outpatient Procedure (Routine) - Pending ReviewSpecialtyDiagnoses / ProceduresReferred By ContactReferred To [facility] Diagnoses Orthostatic lightheadedness POTS (postural orthostatic tachycardia syndrome) Palpitations Dizziness Mixed hyperlipidemia Procedures ECHO ECHO TTHRC R-T 2D W/WOM-MODE COMPL SPEC&COLR D Da King MD [address] [place] [address] [place] [address] Referral IDStatusKatieasonart DateExpiration DateVisits RequestedVisits [id number] Review Auto-Generated Referral * Outpatient Procedure (Routine) - Pending ReviewSpecialtyDiagnoses / Procedures Referred By ContactReferred To [facility] Diagnoses Orthostatic lightheadedness POTS (postural orthostatic tachycardia syndrome) Palpitations Dizziness Mixed hyperlipidemia Procedures ECG COMPLETE ECG ROUTINE ECG W/LEAST 12 LDS W/[place] [address] [place] [address] [place] [address] Referral IDStatusReasonStart DateExpiration DateVisits RequestedVisits [id number] Review Auto-Generated Referral [id number] * Transition of Care (Routine) - Ref Not RequiredSpecialtyDiagnoses / Procedures Referred By ContactReferred To [facility] Procedures CARDIOVASCULAR MEDICINE OP FOLLOW UP APPT ORDER Da King MD [address] [place] [address] [facility] [address] [place] [address] Referral [facility]Status[facility] DateExpiration DateVisits RequestedVisits [id number] Not Required PCP Requested Referral [facility] for referral (narrative)* Diagnostic Procedure Only (Routine) - ClosedSpecialtyDiagnoses / ProceduresReferred By ContactReferred To ContactXR IMAGING Diagnoses Spinal stenosis of lumbar region, unspecified whether neurogenic claudication present Lumbosacral spondylosis with radiculopathy Procedures XR LUMBAR MOTION 4V AP/LAT/ FLEX/EXT RADEX SPINE LUMBOSACRAL MINIMUM 4 VIEWS Steve Wagoner MD [address] [place] [address] [facility] [place] [address] Referral IDStatusReasonAustin DateExpiration DateVisits RequestedVisits [id number] Auto-Generated Referral [facility] for referral (narrative)* Diagnostic Procedure Only (Routine) - ClosedSpecialtyDiagnoses / ProceduresReferred By ContactReferred To ContactXR IMAGING Diagnoses Anterolisthesis of cervical spine Procedures XR CERV OTHER 4V AP/LAT/FLX/EXT RADEX SPINE CERVICAL 4 OR 5 VIEWS Steve Wagoner MD [address] [place] [address] [facility] [place] [address] Referral IDStatusReasonAustin DateExpiration DateVisits RequestedVisits [id number] Auto-Generated Referral / T [facility] for referral (narrative)* Diagnostic Procedure Only (Routine) - ClosedSpecialtyDiagnoses / ProceduresReferred By ContactReferred To ContactXR IMAGING Diagnoses Anterolisthesis of cervical spine Procedures XR CERV OTHER 4V AP/LAT/FLX/EXT RADEX SPINE CERVICAL 4 OR 5 VIEWS Steve Wagoner MD [address] [place] [address] [facility] [place] [address] Referral IDStatusReasonAustin DateExpiration DateVisits RequestedVisits [id number] Auto-Generated Referral / [facility] for referral (narrative)* Diagnostic Procedure Only (Routine) - New RequestSpecialtyDiagnoses / ProceduresReferred By Contact Referred To ContactXR IMAGING Diagnoses Fall, initial encounter Procedures XR HIP GENERAL 3V PELV/AP/LAT RIGHT RADEX HIP UNILATERAL WITH PELVIS 2-3 VIEWS Steve Wagoner MD [address] [place] [address] [facility] [place] [address] Ref[facility]Status[facility] DateExpiration DateVisits RequestedVisits [id number] Request Auto-Generated Referral / * Diagnostic Procedure Only (Routine) - New RequestSpecialtyDiagnoses / ProceduresReferred By ContactReferred To ContactXR IMAGING Diagnoses Fall, initial encounter Procedures XR LUMBAR GENERAL 3V AP/LAT/L5-S1 RADEX SPINE LUMBOSACRAL 2/3 VIEWS Steve Wagoner MD [address] [place] [id number] [facility] [place] [address] Referral IDStatusReasonStart DateExpiration DateVisits RequestedVisits [id number] Request Auto-Generated Referral [facility] for referral (narrative)* Diagnostic Procedure Only (Routine) - ClosedSpecialtyDiagnoses / ProceduresReferred By ContactReferred To ContactXR IMAGING Diagnoses Fall, initial encounter Procedures XR HIP GENERAL 3V PELV/AP/LAT RIGHT RADEX HIP UNILATERAL WITH PELVIS 2-3 VIEWS Steve Wagoner MD [address] [place] [address] [facility] [place] [address] Referral IDStatusReasonStart DateExpiration DateVisits RequestedVisits [id number] Auto-Generated Referral * Diagnostic Procedure Only (Routine) - ClosedSpecialtyDiagnoses / Procedures Referred By ContactReferred To ContactXR IMAGING Diagnoses Fall, initial encounter Procedures XR LUMBAR GENERAL 3V AP/LAT/L5-S1 RADEX SPINE LUMBOSACRAL 2/3 VIEWS Steve Wagoner MD [address] [place] [address] [facility] [place] [address] Referral IDStatusReasonStart DateExpiration DateVisits RequestedVisits [id number] Auto-Generated Referral [facility] for referral (narrative)No reason for referral information availableW[facility]umedicine [facility] Work Phone: Reason for visit NarrativePATIENT HERE AT THE REQUEST OF DR. ERICH GILLIS FOR EVALUATION & TREATMENT OF DIVERTICULITIS., PATIENT IS ON MEDICATION AT THIS TIME. PATIENT STATES DOING BETTER BUT STILL HAVING THE PAIN. PATIENT STATES IN THE 4 MONTHS SHE HAS HAD 3 EPISODES. PATIENT HAS HAD COLONOSCOPY IN THE PST MAYBE 5 YEARS.[employer] Other [facility] for [facility] Narrative* Diagnostic Procedure Only (Routine) - ClosedSpecialtyDiagnoses / ProceduresReferred By ContactReferred To ContactXR IMAGING Diagnoses Spinal stenosis of lumbar region, unspecified whether neurogenic claudication present Lumbosacral spondylosis with radiculopathy Procedures XR LUMBAR MOTION 4V AP/LAT/ FLEX/EXT RADEX SPINE LUMBOSACRAL MINIMUM 4 VIEWS Steve Wagoner MD [address] [place] [address] [facility] [place] [address] Referral IDStatusReasonStart DateExpiration DateVisits RequestedVisits [id number] Auto-Generated Referral / [facility] for visit Narrative* Diagnostic Procedure Only (Routine) - ClosedSpecialtyDiagnoses / ProceduresReferred By ContactReferred To Contact XR IMAGING Diagnoses Anterolisthesis of cervical spine Procedures XR CERV OTHER 4V AP/LAT/FLX/EXT RADEX SPINE CERVICAL 4 OR 5 VIEWS Steve Wagoner MD [address] [place] [address] [facility] [place] [address] Referral IDStatusReasonStart DateExpiration DateVisits RequestedVisits [id number] Auto-Generated Referral / [facility] Advance Directives No Advanced Directives Records FoundDocuments on File TypeDate RecordedPatient RepresentativeExplanationAdvance Directive(s)Advance Directive(s)12/05/2018 6:50 AMTypeDate RecordedPatient RepresentativeExplanation Advance Directive(s)Advance Directive(s)12/05/2018 6:50 AM Advance Directive Response Recorded Date/ Time Advance Directives No December 7:22am Advance Directive Response Recorded Date/ Time Advance Directives No December 6:22am Advance Directive Response Recorded Date/ Time Advance Directives No May 09, 2023 11:21am Advance Directive Response Recorded Date/ Time Advance Directives No November 22, 2023 8:55am Advance Directive Response Recorded Date/ Time Advance Directives No November 22, 2023 7:55am Medications Administered Section Medication OrderMAR ActionAction DateDoseRateSite acetylcholine 10% solution - cchs compounding 20 mL, IRRIGATION, ONE TIME, 1 dose, Starting on Kayce 03/26/21 at 1318, Until 09/16/21 at 1245, Protect from Light. 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 Chief Complaint R79.89 R94.5 R79.89 J45.41 j01.90 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 Chief Complaint J45.41 j01.90 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 Chief Complaint 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 Z98.890 Chief Complaint Z98.890 z98.890 R05.9 Chief Complaint Z98.890 z98.890 R05.9 M18.12 J45.41 Chief Complaint SELF REF FOR VARICOS E VEINS rt hand dog bite covid, flu, rsv, strep- take pic of hand/[facility]rap [facility] Follow-Up I83.813Reason for VisitSymptomatic varicose veins of right lower extremity Varicose veins of bilateral lower extremities with pain Cough Dog bite of right hand Chief Complaint SELF REF FOR VARICOS E VEINS rt hand dog bite covid, flu, rsv, strep- take pic of hand/rewrap [facility]/ED Follow-Up I83.813 [facility] DOG BITE RT HANDReason for VisitSymptomatic varicose veins of right lower extremity Varicose veins of bilateral lower extremities with pain Cough Dog bite of right hand Dog bite of right hand H/O carpal tunnel repair Chief Complaint SELF REF FOR VARICOS E VEINS rt hand dog bite covid, flu, rsv, strep- take pic of hand/rewrap [facility] Follow-Up I83.813 ER [facility] DOG BITE RT HAND GO OVER VENOUS DUPLEXReason for VisitSymptomatic varicose veins of right lower extremity Varicose veins of bilateral lower extremities with pain Cough Dog bite of right hand Dog bite of right hand Chief Complaint SELF REF FOR VARICOS E VEINS rt hand dog bite covid, flu, rsv, strep- take pic of hand/rewrap [facility] Follow-Up I83.813 [facility] DOG BITE RT HAND GO OVER VENOUS DUPLEX follow upReason for VisitSymptomatic varicose veins of right lower extremity Varicose veins of bilateral lower extremities with pain Cough Dog bite of right hand Dog bite of right hand Right leg pain Anxiety and depression Elevated TSH Restless leg syndrome Spondylosis without myelopathy or radiculopathy, lumbar region Chief Complaint GO OVER VENOUS DUPLE X follow up Amb Documentation 1 month follow upReason for VisitRight leg pain Anxiety and depression Elevated TSH Restless leg syndrome Spondylosis without myelopathy or radiculopathy, lumbar region Anxiety and depression Cerumen debris on tympanic membrane of left ear Elevated TSH Lumbar radiculopathy S/P cataract surgery Sore throat Chief Complaint GO OVER VENOUS DUPLE X follow up Amb Documentation 1 month follow upReason for VisitRight leg pain Anxiety and depression Elevated TSH Restless leg syndrome Spondylosis without myelopathy or radiculopathy, lumbar region Anxiety and depression Cerumen debris on tympanic membrane of left ear Elevated liver enzymes Elevated TSH Lumbar radiculopathy S/P cataract surgery Sore throat Chief Complaint follow up Amb Documentation 1 month follow up R79.89 rash on neckReason for VisitAnxiety and depression Elevated TSH Restless leg syndrome Spondylosis without myelopathy or radiculopathy, lumbar region Anxiety and depression Cerumen debris on tympanic membrane of left ear Elevated liver enzymes Elevated TSH Lumbar radiculopathy S/P cataract surgery Sore throat Contact dermatitis Type 2 diabetes mellitus with complications Chief Complaint 1 month follow up R79.89 rash on neck covid/flu [place] out to carReason for VisitAnxiety and depression Cerumen debris on tympanic membrane of left ear Elevated liver enzymes Elevated TSH Lumbar radiculopathy S/P cataract surgery Sore throat Contact dermatitis Type 2 diabetes mellitus with complications Cough Chief Complaint rash on neck covid/flu [place] out to car OP SP TIARA HAND PAINReason for VisitContact dermatitis Type 2 diabetes mellitus with complications Cough Arthritis of carpometacarpal (CMC) joint of right thumb Carpal tunnel syndrome, left Carpal tunnel syndrome, right Chief Complaint Admit Date covid/flu [place] out to car [facility] 2023 11:10am OP SP TIARA HAND PAIN February 08, 2024 3 :30pm 3 month February 22, 2024 1:21pm Reason for Visit Admit Date Cough December 22, 2023 11:10am Arthritis of carpometacarpal (CMC) joint of right thumb February 08, 2024 3:30pm Carpal tunnel syndrome, left January 3:30pm Carpal tunnel syndrome, right February 072023 3:30pm Anxiety and depression February 21 1:21pm History of fall February 22, 2024 1:21pm Hyperlipidemia February 22, 2024 1:21pm Lumbar radiculopathy February 22, 2024 1:21pm Type 2 diabetes mellitus with complicati ons February 22, 2024 1:21pm Chief Complaint Admit Date covid/[facility] [place] [facility] HAND PA[facility] February 08, 2024 3 :30pm 3 month February 22, 2024 1:21pm swab for everything- [place] March 01, 2024 10:32am Amb Documentation March 01, 2024 11:25am Chief Complaint Admit Date 3 month February 22, 2024 1:21pm swab for everything- [place] March 01, 2024 10:32am Amb Documentation March 01, 2024 11:25am 3 MONTHS May 09, 2024 9 :44am Reason for Visit Admit Date Anxiety and depression February 21 1:21pm History of fall February 22, 2024 1:21pm Hyperlipidemia February 22, 2024 1:21pm Lumbar radiculopathy February 22, 2024 1:21pm Type 2 diabetes mellitus with complicati ons February 22, 2024 1:21pm Arthritis of carpometacarpal (CMC) joint of right thumb May 09, 2024 9:44am Carpal tunnel syndrome, left April 9:44am Carpal tunnel syndrome, right May 092024 9:44am Chief Complaint Admit Date swab for everything- [place] March 01, 2024 10:32am Amb Documentation March 01, 2024 11:25am 3 MONTHS May 09, 2024 9 :44am medicare wellness-lvm to move appt to 04 09May 23, 2024 12:28pm Reason for Visit Admit Date Arthritis of carpometacarpal (CMC) joint of right thumb May 09, 2024 9:44am Carpal tunnel syndrome, left April 9:44am Carpal tunnel syndrome, right May 092024 9:44am Anxiety and depression May 23 12:28pm Hyperlipidemia May 23, 2024 12:28pm Medicare annual wellness visit, subseque nt May 23, 2024 12:28pm Type 2 diabetes mellitus with complicati ons May 23, 2024 12:28pm Chief Complaint Admit Date swab for everything- [place] March 01, 2024 10:32am Amb Documentation March 01, 2024 11:25am 3 MONTHS May 09, 2024 9 :44am medicare wellness-lvm to move appt to 04 09May 23, 2024 12:28pm testing-[place] May 30, 2 12:59pm Reason for Visit Admit Date Arthritis of carpometacarpal (CMC) joint of right thumb May 09, 2024 9:44am Carpal tunnel syndrome, left April 9:44am Carpal tunnel syndrome, right May 092024 9:44am Anxiety and depression May 23 12:28pm Hyperlipidemia May 23, 2024 12:28pm Medicare annual wellness visit, subseque nt May 23, 2024 12:28pm Type 2 diabetes mellitus with complicati ons May 23, 2024 12:28pm Chest congestion May 30, 2024 12:59pm Cough May 30, 2024 12:59pm Hoarseness May 30, 2024 12:59pm Chief Complaint Admit Date 3 MONTHS May 09, 2024 9 :44am medicare wellness-lvm to move appt to 04 09May 23, 2024 12:28pm testing-[place] May 30, 2 025 12:59pm R05.09 June 12, 2024 12:1 6pm Chief Complaint Admit Date nerve pain /discuss starting new med-con stipation September 12, 2024 2:09pm Reason for Visit Admit Date Chronic back pain September 12, 2024 2:09p m Constipation September 12, 2024 2:09p m 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 September 12, 2024 2:09pm Neuropathy September 12, 2024 2:09p m Stye September 12, 2024 2:09p m Chief Complaint Admit Date 3 month f/u- December 18, 2024 9:54am Reason for Visit Admit Date Anxiety and depression December 18 9:54am Constipation December 18, 2024 9:54am Elevated TSH December 18, 2024 9:54am Lumbar radiculopathy December 18, 2024 9:54am Neuropathy December 18, 2024 9:54am Type 2 diabetes mellitus with complicati ons December 18, 2024 9:54am Chief Complaint Admit Date 3 month f/u- December 18, 2024 9:54am [facility] ([facility]) January 102024 9:53am Reason for Visit Admit Date Anxiety and depression December 18 9:54am Constipation December 18, 2024 9:54am Elevated TSH December 18, 2024 9:54am Lumbar radiculopathy December 18, 2024 9:54am Neuropathy December 18, 2024 9:54am Type 2 diabetes mellitus with complicati ons December 18, 2024 9:54am Unable to lose weight December 18 9:54am Family History No Family History Records Found Relationship Condition Age at Onset Recorded Date/T thuan father History of coronary artery bypass surgery Unknown Chronic obstructive pulmonary diseaseUnknown Relationship Condition Age at Onset Recorded Date/T thuan father Chronic obstructive pulmonary disease Unk nown History of coronary artery bypass surgeryUnknownDiabetes mellitusUnknownbrother Diabetes mellitusUnknowngrandparentDiabetes mellitusUnknown Relationship Condition Age at Onset Recorded Date/T thuan father Chronic obstructive pulmonary disease Unk nown History of coronary artery bypass surgeryUnknownDiabetes mellitusUnknownbrother Diabetes mellitusUnknowngrandparentDiabetes mellitusUnknownfatherHeart disease UnknownDeceasedUnknowngrandparentDeceasedUnknowngrandparentHistory of ovarian cancerUnknowngrandparentAneurysmUnknownNot SpecifiedAlzheimer's dementiaUnknown Family history of mental disorderUnknownsisterDeceasedUnknown Relationship Condition Age at Onset Recorded Date/T thuan father Chronic obstructive pulmonary disease Unk nown History of coronary artery bypass surgeryUnknownDiabetes mellitusUnknownbrother Diabetes mellitusUnknowngrandparentDiabetes mellitusUnknownfatherHeart disease UnknownDeceasedUnknowngrandparentDeceasedUnknowngrandparentHistory of ovarian cancerUnknowngrandparentAneurysmUnknownmotherAlzheimer's dementiaUnknownFamily history of mental disorderUnknownsisterDeceasedUnknown Relationship Condition Age at Onset Recorded Date/T thuan father Chronic obstructive pulmonary disease Unk nown History of coronary artery bypass surgeryUnknownDiabetes mellitusUnknownbrother Diabetes mellitusUnknowngrandparentDiabetes mellitusUnknownfatherHeart disease UnknownDeceasedUnknowngrandparentHistory of ovarian cancerUnknowngrandparent AneurysmUnknowngrandparentDeceasedUnknownmotherAlzheimer's dementiaUnknownFamily history of mental disorderUnknownsisterDeceasedUnknown Relationship Condition Age at Onset Recorded Date/T thuan father Chronic obstructive pulmonary disease Unk nown History of coronary artery bypass surgeryUnknownDiabetes mellitusUnknownDeceased UnknownHeart diseaseUnknownbrotherDiabetes mellitusUnknowngrandparentDiabetes mellitusUnknowngrandparentHistory of ovarian cancerUnknowngrandparentAneurysm UnknownmotherAlzheimer's dementiaUnknownFamily history of mental disorderUnknown sisterDeceasedUnknown Reason for Referral SpecialtyDiagnoses / ProceduresReferred By ContactReferred To ContactCLEVELAND CL[facility] Diagnoses 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athy (HCC) Imbalance Procedures CONSULT TO PHYSICAL THERAPY PHYSICAL THERAPY EVALUATION HIGH COMPLEX 45 MINS Sheryl Garza, FISH AND GAME WARDEN.ENVIRONMENTAL ENGINEER SCIENTIST [address] [place] [address] [place] [address] Referral IDStatusReasonStart DateExpiration DateVisits RequestedVisits [id number] PCP Requested Referral Auto-Generated Referral [id number] / ProceduresReferred By ContactReferred To Critical access hospitalAB [facility] Diagnoses Spinal stenosis of lumbar region, unspecified whether neurogenic claudication present Lumbosacral spondylosis with radiculopathy Procedures CONSULT TO PHYSICAL THERAPY PHYSICAL THERAPY EVALUATION HIGH COMPLEX 45 MINS Steve Wagoner MD [address] [place] [address] [place] [address] Referral IDStatusReasonStart DateExpiration DateVisits RequestedVisits [id number] PCP Requested Referral Auto-Generated Referral [id number] / ProceduresReferred By ContactReferred To ContactMR IMAGING Diagnoses Spinal stenosis of lumbar region, unspecified whether neurogenic claudication present Lumbosacral spondylosis with radiculopathy Procedures MRI LUMBAR SPINE WO IVCON MRI SPINAL CANAL LUMBAR W/O CONTRAST MATERIAL Steve Wagoner MD [address] [place] [address] [facility] [place] [address] Referral IDStatusReasonStart DateExpiration DateVisits RequestedVisits [id number] Auto-Generated Referral [id number] / ProceduresReferred By ContactReferred To ContactMR IMAGING Diagnoses Spinal stenosis of cervical region Bilateral arm weakness Procedures MRI CERVICAL SPINE WO IVCON MRI SPINAL CANAL CERVICAL W/O CONTRAST MATRL Steve Wagoner MD [address] [place] [address] [facility] [place] [address] Referral IDStatusReasonStart DateExpiration DateVisits RequestedVisits [id number] Auto-Generated Referral [id number] / ProceduresReferred By ContactReferred To ContactXR IMAGING Diagnoses Spinal stenosis of lumbar region, unspecified whether neurogenic claudication present Lumbosacral spondylosis with radiculopathy Procedures XR LUMBAR MOTION 4V AP/LAT/ FLEX/EXT RADEX SPINE LUMBOSACRAL MINIMUM 4 VIEWS Steve Wagoner MD [address] [place] [address] Xr [facility] [place] [address] Referral IDStatusReasonStart DateExpiration DateVisits RequestedVisits [id number] Auto-Generated Referral [id number] / ProceduresReferred By ContactReferred To Contact Karl Cook, FISH AND GAME WARDEN.ENVIRONMENTAL ENGINEER SCIENTIST [address] [place] [address] Referral IDStatusReasonStart DateExpiration DateVisits RequestedVisits [id number] / ProceduresReferred By Contact Referred To ContactNeurology Diagnoses Labile blood pressure Abnormal saccadic eye movement Pursuit movement deficiency Postural instability Procedures CONSULT TO NEUROLOGY OFFICE/OUTPATIENT [facility] 60 MINUTES Sheryl Garza, [employer] AND G[employer] WARDEN.ENVIRONMENTAL ENGINEER SCIENTIST [address] [place] [address] Referral IDStatusReasonStart DateExpiration DateVisits RequestedVisits [id number] PCP Requested Referral [id number] / ProceduresReferred By ContactReferred To ContactNEUROLOGICAL INSTITUTE Diagnoses Left leg weakness Disturbance of skin sensation Procedures EMG(NEURO/NI) NERVE CONDUCTION STUDIES 9-10 STUDIES Sheryl Garza APRN.ENVIRONMENTAL ENGINEER SCIENTIST [address] [place] [address] [facility] [place] [address] [place] [address] Referral IDStatusReasonStart DateExpiration DateVisits RequestedVisits [id number] Auto-Generated Referral [id number] / ProceduresReferred By ContactReferred To ContactMR IMAGING Diagnoses Labile blood pressure Abnormal saccadic eye movement Pursuit movement deficiency Other symptoms and signs involving the nervous system Procedures MRI BRAIN WO/W IVCON MRI BRAIN BRAIN STEM W/O W/CONTRAST MATERIAL Sheryl Garza APRN.ENVIRONMENTAL ENGINEER SCIENTIST [address] [place] [address] [facility] [place] [address] Referral IDStatusReasonStart DateExpiration DateVisits RequestedVisits [id number] Auto-Generated Referral [id number] / ProceduresReferred By ContactReferred To Contact Lorraine Oneill MD [address] [place] [address] Referral IDStatusReasonStart DateExpiration DateVisits RequestedVisits [id number] / ProceduresReferred By Contact Referred To Contact Diagnoses Type 2 diabetes mellitus with stage 3a chronic kidney disease, without long-term current use of insulin (HCC) Abnormal weight gain Procedures ENDOCRINOLOGY DIETITIAN VISIT (MNT) MEDICAL NUTRITION ASSMT&IVNTJ INDIV EACH 15 HI MEDICAL NUTRITION ASSMT&IVNTJ INDIV EACH 15 HI MEDICAL NUTRITION ASSMT&IVNTJ INDIV EACH 15 HI MEDICAL NUTRITION ASSMT&IVNTJ INDIV EACH 15 HI Lorraine Oneill MD [address] [place] [id number] Referral IDStatusReasonStart DateExpiration DateVisits RequestedVisits [id number] PCP Requested Referral [id number] / ProceduresReferred By ContactReferred To Contact Procedures CARDIOVASCULAR MEDICINE OP FOLLOW UP APPT ORDER Andrea Lees MD [address] [place] [address] Referral IDStatusReasonStart DateExpiration DateVisits RequestedVisits [id number] Not Required PCP Requested Referral [id number] / ProceduresReferred By ContactReferred To ContactSALEM CITY H[facility]ITALRT [facility] Diagnoses Labile blood pressure Near syncope Procedures ECHO ECHO TTHRC R-T 2D W/WOM-MODE COMPL SPEC&COLR D Andrea Lees MD [address] [place] [address] [place] [address] Referral IDStatusReasonStportland DateExpiration DateVisits RequestedVisits [id number] Auto-Generated Referral Reason Please refer patient to Dr Bentley for left foot pain, previous fracture Diagnosis 1 Left foot pain (M79. 672) Referral Organization [facility] Referring Provider First Name Merary Referring Provider Last Name Christina Referring Provider Specialty Hand Surger y Referred Organization Unknown Facility Referred Provider Reji Bentley Referred Provider Specialty Podiatry - S urgical Chiropody Referral Priority Routine General Notes Kusum Herrera 04/06/2023 11:05:40 AM > pt was seeing Dr Zay Spicer, she will obtain records and xrays from him Summary Purpose Additional Source Comments Source Comments (unrecognize d section and content) In the event this informatio n is protected by the Federal Confidentiality of Alcohol and Drug Abuse Patient Records regulations: The Federal rules restrict any use of the information to criminally investigate or prosecute any alcohol or drug abuse patient.[facility] HealthIn the event this information is protected by the Federal Confidentiality of Alcohol and Drug Abuse Patient Records regulations: The Federal rules restrict any use of the information to criminally investigate or prosecute any alcohol or drug abuse patient.[facility] HealthIn the event this information is protected by the Federal Confidentiality of Alcohol and Drug Abuse Patient Records regulations: The Federal rules restrict any use of the information to criminally investigate or prosecute any alcohol or drug abuse patient.[facility] HealthIn the event this information is protected by the Federal Confidentiality of Alcohol and Drug Abuse Patient Records regulations: The Federal rules restrict any use of the information to criminally investigate or prosecute any alcohol or drug abuse patient.[facility] HealthIn the event this information is protected by the Federal Confidentiality of Alcohol and Drug Abuse Patient Records regulations: The Federal rules restrict any use of the information to criminally investigate or prosecute any alcohol or drug abuse patient.[facility] HealthIn the event this information is protected by the Federal Confidentiality of Alcohol and Drug Abuse Patient Records regulations: The Federal rules restrict any use of the information to criminally investigate or prosecute any alcohol or drug abuse patient.[facility] HealthIn the event this information is protected by the Federal Confidentiality of Alcohol and Drug Abuse Patient Records regulations: The Federal rules restrict any use of the information to criminally investigate or prosecute any alcohol or drug abuse patient.[facility] HealthIn the event this information is protected by the Federal Confidentiality of Alcohol and Drug Abuse Patient Records regulations: The Federal rules restrict any use of the information to criminally investigate or prosecute any alcohol or drug abuse patient.[facility] HealthIn the event this information is protected by the Federal Confidentiality of Alcohol and Drug Abuse Patient Records regulations: The Federal rules restrict any use of the information to criminally investigate or prosecute any alcohol or drug abuse patient.[facility] HealthIn the event this information is protected by the Federal Confidentiality of Alcohol and Drug Abuse Patient Records regulations: The Federal rules restrict any use of the information to criminally investigate or prosecute any alcohol or drug abuse patient.[facility] HealthIn the event this information is protected by the Federal Confidentiality of Alcohol and Drug Abuse Patient Records regulations: The Federal rules restrict any use of the information to criminally investigate or prosecute any alcohol or drug abuse patient.[facility] HealthIn the event this information is protected by the Federal Confidentiality of Alcohol and Drug Abuse Patient Records regulations: The Federal rules restrict any use of the information to criminally investigate or prosecute any alcohol or drug abuse patient.[facility] HealthIn the event this information is protected by the Federal Confidentiality of Alcohol and Drug Abuse Patient Records regulations: The Federal rules restrict any use of the information to criminally investigate or prosecute any alcohol or drug abuse patient.[facility] HealthIn the event this information is protected by the Federal Confidentiality of Alcohol and Drug Abuse Patient Records regulations: The Federal rules restrict any use of the information to criminally investigate or prosecute any alcohol or drug abuse patient.[facility] HealthIn the event this information is protected by the Federal Confidentiality of Alcohol and Drug Abuse Patient Records regulations: The Federal rules restrict any use of the information to criminally investigate or prosecute any alcohol or drug abuse patient.[facility] HealthIn the event this information is protected by the Federal Confidentiality of Alcohol and Drug Abuse Patient Records regulations: The Federal rules restrict any use of the information to criminally investigate or prosecute any alcohol or drug abuse patient.[facility] HealthIn the event this information is protected by the Federal Confidentiality of Alcohol and Drug Abuse Patient Records regulations: The Federal rules restrict any use of the information to criminally investigate or prosecute any alcohol or drug abuse patient.[facility] HealthIn the event this information is protected by the Federal Confidentiality of Alcohol and Drug Abuse Patient Records regulations: The Federal rules restrict any use of the information to criminally investigate or prosecute any alcohol or drug abuse patient.[facility] HealthIn the event this information is protected by the Federal Confidentiality of Alcohol and Drug Abuse Patient Records regulations: The Federal rules restrict any use of the information to criminally investigate or prosecute any alcohol or drug abuse patient.[facility] HealthIn the event this information is protected by the Federal Confidentiality of Alcohol and Drug Abuse Patient Records regulations: The Federal rules restrict any use of the information to criminally investigate or prosecute any alcohol or drug abuse patient.[facility] HealthIn the event this information is protected by the Federal Confidentiality of Alcohol and Drug Abuse Patient Records regulations: The Federal rules restrict any use of the information to criminally investigate or prosecute any alcohol or drug abuse patient.[facility] HealthIn the event this information is protected by the Federal Confidentiality of Alcohol and Drug Abuse Patient Records regulations: The Federal rules restrict any use of the information to criminally investigate or prosecute any alcohol or drug abuse patient.[facility] HealthIn the event this information is protected by the Federal Confidentiality of Alcohol and Drug Abuse Patient Records regulations: The Federal rules restrict any use of the information to criminally investigate or prosecute any alcohol or drug abuse patient.[facility] HealthIn the event this information is protected by the Federal Confidentiality of Alcohol and Drug Abuse Patient Records regulations: The Federal rules restrict any use of the information to criminally investigate or prosecute any alcohol or drug abuse patient.[facility] HealthIn the event this information is protected by the Federal Confidentiality of Alcohol and Drug Abuse Patient Records regulations: The Federal rules restrict any use of the information to criminally investigate or prosecute any alcohol or drug abuse patient.[facility] HealthIn the event this information is protected by the Federal Confidentiality of Alcohol and Drug Abuse Patient Records regulations: The Federal rules restrict any use of the information to criminally investigate or prosecute any alcohol or drug abuse patient.[facility] HealthIn the event this information is protected by the Federal Confidentiality of Alcohol and Drug Abuse Patient Records regulations: The Federal rules restrict any use of the information to criminally investigate or prosecute any alcohol or drug abuse patient.[facility] HealthIn the event this information is protected by the Federal Confidentiality of Alcohol and Drug Abuse Patient Records regulations: The Federal rules restrict any use of the information to criminally investigate or prosecute any alcohol or drug abuse patient.[facility] HealthIn the event this information is protected by the Federal Confidentiality of Alcohol and Drug Abuse Patient Records regulations: The Federal rules restrict any use of the information to criminally investigate or prosecute any alcohol or drug abuse patient.[facility] HealthIn the event this information is protected by the Federal Confidentiality of Alcohol and Drug Abuse Patient Records regulations: The Federal rules restrict any use of the information to criminally investigate or prosecute any alcohol or drug abuse patient.[facility] HealthIn the event this information is protected by the Federal Confidentiality of Alcohol and Drug Abuse Patient Records regulations: The Federal rules restrict any use of the information to criminally investigate or prosecute any alcohol or drug abuse patient.[facility] the event this information is protected by the Federal Confidentiality of Alcohol and Drug Abuse Patient Records regulations: The Federal rules restrict any use of the information to criminally investigate or prosecute any alcohol or drug abuse patient.[facility]In the event this information is protected by the Federal Confidentiality of Alcohol and Drug Abuse Patient Records regulations: The Federal rules restrict any use of the information to criminally investigate or prosecute any alcohol or drug abuse patient.[facility]In the event this information is protected by the Federal Confidentiality of Alcohol and Drug Abuse Patient Records regulations: The Federal rules restrict any use of the information to criminally investigate or prosecute any alcohol or drug abuse patient.[facility]In the event this information is protected by the Federal Confidentiality of Alcohol and Drug Abuse Patient Records regulations: The Federal rules restrict any use of the information to criminally investigate or prosecute any alcohol or drug abuse patient.[facility]In the event this information is protected by the Federal Confidentiality of Alcohol and Drug Abuse Patient Records regulations: The Federal rules restrict any use of the information to criminally investigate or prosecute any alcohol or drug abuse patient.[facility]In the event this information is protected by the Federal Confidentiality of Alcohol and Drug Abuse Patient Records regulations: The Federal rules restrict any use of the information to criminally investigate or prosecute any alcohol or drug abuse patient.[facility]In the event this information is protected by the Federal Confidentiality of Alcohol and Drug Abuse Patient Records regulations: The Federal rules restrict any use of the information to criminally investigate or prosecute any alcohol or drug abuse patient.[facility]In the event this information is protected by the Federal Confidentiality of Alcohol and Drug Abuse Patient Records regulations: The Federal rules restrict any use of the information to criminally investigate or prosecute any alcohol or drug abuse patient.[facility]In the event this information is protected by the Federal Confidentiality of Alcohol and Drug Abuse Patient Records regulations: The Federal rules restrict any use of the information to criminally investigate or prosecute any alcohol or drug abuse patient.[facility]In the event this information is protected by the Federal Confidentiality of Alcohol and Drug Abuse Patient Records regulations: The Federal rules restrict any use of the information to criminally investigate or prosecute any alcohol or drug abuse patient.[facility]In the event this information is protected by the Federal Confidentiality of Alcohol and Drug Abuse Patient Records regulations: The Federal rules restrict any use of the information to criminally investigate or prosecute any alcohol or drug abuse patient.[facility]In the event this information is protected by the Federal Confidentiality of Alcohol and Drug Abuse Patient Records regulations: The Federal rules restrict any use of the information to criminally investigate or prosecute any alcohol or drug abuse patient.[facility]In the event this information is protected by the Federal Confidentiality of Alcohol and Drug Abuse Patient Records regulations: The Federal rules restrict any use of the information to criminally investigate or prosecute any alcohol or drug abuse patient.[facility]In the event this information is protected by the Federal Confidentiality of Alcohol and Drug Abuse Patient Records regulations: The Federal rules restrict any use of the information to criminally investigate or prosecute any alcohol or drug abuse patient.[facility]In the event this information is protected by the Federal Confidentiality of Alcohol and Drug Abuse Patient Records regulations: The Federal rules restrict any use of the information to criminally investigate or prosecute any alcohol or drug abuse patient.[facility]In the event this information is protected by the Federal Confidentiality of Alcohol and Drug Abuse Patient Records regulations: The Federal rules restrict any use of the information to criminally investigate or prosecute any alcohol or drug abuse patient.[facility]In the event this information is protected by the Federal Confidentiality of Alcohol and Drug Abuse Patient Records regulations: The Federal rules restrict any use of the information to criminally investigate or prosecute any alcohol or drug abuse patient.[facility]In the event this information is protected by the Federal Confidentiality of Alcohol and Drug Abuse Patient Records regulations: The Federal rules restrict any use of the information to criminally investigate or prosecute any alcohol or drug abuse patient.[facility]In the event this information is protected by the Federal Confidentiality of Alcohol and Drug Abuse Patient Records regulations: The Federal rules restrict any use of the information to criminally investigate or prosecute any alcohol or drug abuse patient.[facility]In the event this information is protected by the Federal Confidentiality of Alcohol and Drug Abuse Patient Records regulations: The Federal rules restrict any use of the information to criminally investigate or prosecute any alcohol or drug abuse patient.[facility]In the event this information is protected by the Federal Confidentiality of Alcohol and Drug Abuse Patient Records regulations: The Federal rules restrict any use of the information to criminally investigate or prosecute any alcohol or drug abuse patient.[facility]In the event this information is protected by the Federal Confidentiality of Alcohol and Drug Abuse Patient Records regulations: The Federal rules restrict any use of the information to criminally investigate or prosecute any alcohol or drug abuse patient.[facility]In the event this information is protected by the Federal Confidentiality of Alcohol and Drug Abuse Patient Records regulations: The Federal rules restrict any use of the information to criminally investigate or prosecute any alcohol or drug abuse patient.[facility]In the event this information is protected by the Federal Confidentiality of Alcohol and Drug Abuse Patient Records regulations: The Federal rules restrict any use of the information to criminally investigate or prosecute any alcohol or drug abuse patient.[facility]In the event this information is protected by the Federal Confidentiality of Alcohol and Drug Abuse Patient Records regulations: The Federal rules restrict any use of the information to criminally investigate or prosecute any alcohol or drug abuse patient.[facility]In the event this information is protected by the Federal Confidentiality of Alcohol and Drug Abuse Patient Records regulations: The Federal rules restrict any use of the information to criminally investigate or prosecute any alcohol or drug abuse patient.[facility]In the event this information is protected by the Federal Confidentiality of Alcohol and Drug Abuse Patient Records regulations: The Federal rules restrict any use of the information to criminally investigate or prosecute any alcohol or drug abuse patient.[facility]In the event this information is protected by the Federal Confidentiality of Alcohol and Drug Abuse Patient Records regulations: The Federal rules restrict any use of the information to criminally investigate or prosecute any alcohol or drug abuse patient.[facility]In the event this information is protected by the Federal Confidentiality of Alcohol and Drug Abuse Patient Records regulations: The Federal rules restrict any use of the information to criminally investigate or prosecute any alcohol or drug abuse patient.[facility]In the event this information is protected by the Federal Confidentiality of Alcohol and Drug Abuse Patient Records regulations: The Federal rules restrict any use of the information to criminally investigate or prosecute any alcohol or drug abuse patient.[facility]In the event this information is protected by the Federal Confidentiality of Alcohol and Drug Abuse Patient Records regulations: The Federal rules restrict any use of the information to criminally investigate or prosecute any alcohol or drug abuse patient.[facility]In the event this information is protected by the Federal Confidentiality of Alcohol and Drug Abuse Patient Records regulations: The Federal rules restrict any use of the information to criminally investigate or prosecute any alcohol or drug abuse patient.[facility]In the event this information is protected by the Federal Confidentiality of Alcohol and Drug Abuse Patient Records regulations: The Federal rules restrict any use of the information to criminally investigate or prosecute any alcohol or drug abuse patient.[facility]In the event this information is protected by the Federal Confidentiality of Alcohol and Drug Abuse Patient Records regulations: The Federal rules restrict any use of the information to criminally investigate or prosecute any alcohol or drug abuse patient.[facility]In the event this information is protected by the Federal Confidentiality of Alcohol and Drug Abuse Patient Records regulations: The Federal rules restrict any use of the information to criminally investigate or prosecute any alcohol or drug abuse patient.[facility]In the event this information is protected by the Federal Confidentiality of Alcohol and Drug Abuse Patient Records regulations: The Federal rules restrict any use of the information to criminally investigate or prosecute any alcohol or drug abuse patient.[facility]In the event this information is protected by the Federal Confidentiality of Alcohol and Drug Abuse Patient Records regulations: The Federal rules restrict any use of the information to criminally investigate or prosecute any alcohol or drug abuse patient.[facility]In the event this information is protected by the Federal Confidentiality of Alcohol and Drug Abuse Patient Records regulations: The Federal rules restrict any use of the information to criminally investigate or prosecute any alcohol or drug abuse patient.[facility]In the event this information is protected by the Federal Confidentiality of Alcohol and Drug Abuse Patient Records regulations: The Federal rules restrict any use of the information to criminally investigate or prosecute any alcohol or drug abuse patient.[facility]In the event this information is protected by the Federal Confidentiality of Alcohol and Drug Abuse Patient Records regulations: The Federal rules restrict any use of the information to criminally investigate or prosecute any alcohol or drug abuse patient.[facility]In the event this information is protected by the Federal Confidentiality of Alcohol and Drug Abuse Patient Records regulations: The Federal rules restrict any use of the information to criminally investigate or prosecute any alcohol or drug abuse patient.[facility]In the event this information is protected by the Federal Confidentiality of Alcohol and Drug Abuse Patient Records regulations: The Federal rules restrict any use of the information to criminally investigate or prosecute any alcohol or drug abuse patient.[facility]In the event this information is protected by the Federal Confidentiality of Alcohol and Drug Abuse Patient Records regulations: The Federal rules restrict any use of the information to criminally investigate or prosecute any alcohol or drug abuse patient.[facility]In the event this information is protected by the Federal Confidentiality of Alcohol and Drug Abuse Patient Records regulations: The Federal rules restrict any use of the information to criminally investigate or prosecute any alcohol or drug abuse patient.[facility]In the event this information is protected by the Federal Confidentiality of Alcohol and Drug Abuse Patient Records regulations: The Federal rules restrict any use of the information to criminally investigate or prosecute any alcohol or drug abuse patient.[facility]In the event this information is protected by the Federal Confidentiality of Alcohol and Drug Abuse Patient Records regulations: The Federal rules restrict any use of the information to criminally investigate or prosecute any alcohol or drug abuse patient.[facility]In the event this information is protected by the Federal Confidentiality of Alcohol and Drug Abuse Patient Records regulations: The Federal rules restrict any use of the information to criminally investigate or prosecute any alcohol or drug abuse patient.[facility]In the event this information is protected by the Federal Confidentiality of Alcohol and Drug Abuse Patient Records regulations: The Federal rules restrict any use of the information to criminally investigate or prosecute any alcohol or drug abuse patient.[facility]In the event this information is protected by the Federal Confidentiality of Alcohol and Drug Abuse Patient Records regulations: The Federal rules restrict any use of the information to criminally investigate or prosecute any alcohol or drug abuse patient.[facility]In the event this information is protected by the Federal Confidentiality of Alcohol and Drug Abuse Patient Records regulations: The Federal rules restrict any use of the information to criminally investigate or prosecute any alcohol or drug abuse patient.[facility]In the event this information is protected by the Federal Confidentiality of Alcohol and Drug Abuse Patient Records regulations: The Federal rules restrict any use of the information to criminally investigate or prosecute any alcohol or drug abuse patient.[facility]In the event this information is protected by the Federal Confidentiality of Alcohol and Drug Abuse Patient Records regulations: The Federal rules restrict any use of the information to criminally investigate or prosecute any alcohol or drug abuse patient.[facility]In the event this information is protected by the Federal Confidentiality of Alcohol and Drug Abuse Patient Records regulations: The Federal rules restrict any use of the information to criminally investigate or prosecute any alcohol or drug abuse patient.[facility]In the event this information is protected by the Federal Confidentiality of Alcohol and Drug Abuse Patient Records regulations: The Federal rules restrict any use of the information to criminally investigate or prosecute any alcohol or drug abuse patient.[facility]In the event this information is protected by the Federal Confidentiality of Alcohol and Drug Abuse Patient Records regulations: The Federal rules restrict any use of the information to criminally investigate or prosecute any alcohol or drug abuse patient.[facility]In the event this information is protected by the Federal Confidentiality of Alcohol and Drug Abuse Patient Records regulations: The Federal rules restrict any use of the information to criminally investigate or prosecute any alcohol or drug abuse patient.[facility]In the event this information is protected by the Federal Confidentiality of Alcohol and Drug Abuse Patient Records regulations: The Federal rules restrict any use of the information to criminally investigate or prosecute any alcohol or drug abuse patient.[facility]In the event this information is protected by the Federal Confidentiality of Alcohol and Drug Abuse Patient Records regulations: The Federal rules restrict any use of the information to criminally investigate or prosecute any alcohol or drug abuse patient.[facility]In the event this information is protected by the Federal Confidentiality of Alcohol and Drug Abuse Patient Records regulations: The Federal rules restrict any use of the information to criminally investigate or prosecute any alcohol or drug abuse patient.[facility]In the event this information is protected by the Federal Confidentiality of Alcohol and Drug Abuse Patient Records regulations: The Federal rules restrict any use of the information to criminally investigate or prosecute any alcohol or drug abuse patient.[facility]In the event this information is protected by the Federal Confidentiality of Alcohol and Drug Abuse Patient Records regulations: The Federal rules restrict any use of the information to criminally investigate or prosecute any alcohol or drug abuse patient.[facility]In the event this information is protected by the Federal Confidentiality of Alcohol and Drug Abuse Patient Records regulations: The Federal rules restrict any use of the information to criminally investigate or prosecute any alcohol or drug abuse patient.[facility]In the event this information is protected by the Federal Confidentiality of Alcohol and Drug Abuse Patient Records regulations: The Federal rules restrict any use of the information to criminally investigate or prosecute any alcohol or drug abuse patient.[facility]In the event this information is protected by the Federal Confidentiality of Alcohol and Drug Abuse Patient Records regulations: The Federal rules restrict any use of the information to criminally investigate or prosecute any alcohol or drug abuse patient.[facility]In the event this information is protected by the Federal Confidentiality of Alcohol and Drug Abuse Patient Records regulations: The Federal rules restrict any use of the information to criminally investigate or prosecute any alcohol or drug abuse patient.[facility]In the event this information is protected by the Federal Confidentiality of Alcohol and Drug Abuse Patient Records regulations: The Federal rules restrict any use of the information to criminally investigate or prosecute any alcohol or drug abuse patient.[facility]In the event this information is protected by the Federal Confidentiality of Alcohol and Drug Abuse Patient Records regulations: The Federal rules restrict any use of the information to criminally investigate or prosecute any alcohol or drug abuse patient.[facility]In the event this information is protected by the Federal Confidentiality of Alcohol and Drug Abuse Patient Records regulations: The Federal rules restrict any use of the information to criminally investigate or prosecute any alcohol or drug abuse patient.[facility]In the event this information is protected by the Federal Confidentiality of Alcohol and Drug Abuse Patient Records regulations: The Federal rules restrict any use of the information to criminally investigate or prosecute any alcohol or drug abuse patient.[facility]In the event this information is protected by the Federal Confidentiality of Alcohol and Drug Abuse Patient Records regulations: The Federal rules restrict any use of the information to criminally investigate or prosecute any alcohol or drug abuse patient.[facility]In the event this information is protected by the Federal Confidentiality of Alcohol and Drug Abuse Patient Records regulations: The Federal rules restrict any use of the information to criminally investigate or prosecute any alcohol or drug abuse patient.[facility]In the event this information is protected by the Federal Confidentiality of Alcohol and Drug Abuse Patient Records regulations: The Federal rules restrict any use of the information to criminally investigate or prosecute any alcohol or drug abuse patient.[facility]In the event this information is protected by the Federal Confidentiality of Alcohol and Drug Abuse Patient Records regulations: The Federal rules restrict any use of the information to criminally investigate or prosecute any alcohol or drug abuse patient.[facility]In the event this information is protected by the Federal Confidentiality of Alcohol and Drug Abuse Patient Records regulations: The Federal rules restrict any use of the information to criminally investigate or prosecute any alcohol or drug abuse patient.[facility]In the event this information is protected by the Federal Confidentiality of Alcohol and Drug Abuse Patient Records regulations: The Federal rules restrict any use of the information to criminally investigate or prosecute any alcohol or drug abuse patient.[facility]In the event this information is protected by the Federal Confidentiality of Alcohol and Drug Abuse Patient Records regulations: The Federal rules restrict any use of the information to criminally investigate or prosecute any alcohol or drug abuse patient.[facility]In the event this information is protected by the Federal Confidentiality of Alcohol and Drug Abuse Patient Records regulations: The Federal rules restrict any use of the information to criminally investigate or prosecute any alcohol or drug abuse patient.[facility]In the event this information is protected by the Federal Confidentiality of Alcohol and Drug Abuse Patient Records regulations: The Federal rules restrict any use of the information to criminally investigate or prosecute any alcohol or drug abuse patient.[facility]In the event this information is protected by the Federal Confidentiality of Alcohol and Drug Abuse Patient Records regulations: The Federal rules restrict any use of the information to criminally investigate or prosecute any alcohol or drug abuse patient.[facility]In the event this information is protected by the Federal Confidentiality of Alcohol and Drug Abuse Patient Records regulations: The Federal rules restrict any use of the information to criminally investigate or prosecute any alcohol or drug abuse patient.[facility]In the event this information is protected by the Federal Confidentiality of Alcohol and Drug Abuse Patient Records regulations: The Federal rules restrict any use of the information to criminally investigate or prosecute any alcohol or drug abuse patient.[facility]In the event this information is protected by the Federal Confidentiality of Alcohol and Drug Abuse Patient Records regulations: The Federal rules restrict any use of the information to criminally investigate or prosecute any alcohol or drug abuse patient.[facility]In the event this information is protected by the Federal Confidentiality of Alcohol and Drug Abuse Patient Records regulations: The Federal rules restrict any use of the information to criminally investigate or prosecute any alcohol or drug abuse patient.[facility]In the event this information is protected by the Federal Confidentiality of Alcohol and Drug Abuse Patient Records regulations: The Federal rules restrict any use of the information to criminally investigate or prosecute any alcohol or drug abuse patient.[facility]In the event this information is protected by the Federal Confidentiality of Alcohol and Drug Abuse Patient Records regulations: The Federal rules restrict any use of the information to criminally investigate or prosecute any alcohol or drug abuse patient.[facility]In the event this information is protected by the Federal Confidentiality of Alcohol and Drug Abuse Patient Records regulations: The Federal rules restrict any use of the information to criminally investigate or prosecute any alcohol or drug abuse patient.[facility]In the event this information is protected by the Federal Confidentiality of Alcohol and Drug Abuse Patient Records regulations: The Federal rules restrict any use of the information to criminally investigate or prosecute any alcohol or drug abuse patient.[facility]In the event this information is protected by the Federal Confidentiality of Alcohol and Drug Abuse Patient Records regulations: The Federal rules restrict any use of the information to criminally investigate or prosecute any alcohol or drug abuse patient.[facility]In the event this information is protected by the Federal Confidentiality of Alcohol and Drug Abuse Patient Records regulations: The Federal rules restrict any use of the information to criminally investigate or prosecute any alcohol or drug abuse patient.Wilson HealthIn the event this information is protected by the Federal Confidentiality of Alcohol and Drug Abuse Patient Records regulations: The Federal rules restrict any use of the information to criminally investigate or prosecute any alcohol or drug abuse patient.Wilson HealthIn the event this information is protected by the Federal Confidentiality of Alcohol and Drug Abuse Patient Records regulations: The Federal rules restrict any use of the information to criminally investigate or prosecute any alcohol or drug abuse patient.Wilson HealthIn the event this information is protected by the Federal Confidentiality of Alcohol and Drug Abuse Patient Records regulations: The Federal rules restrict any use of the information to criminally investigate or prosecute any alcohol or drug abuse patient.Wilson HealthIn the event this information is protected by the Federal Confidentiality of Alcohol and Drug Abuse Patient Records regulations: The Federal rules restrict any use of the information to criminally investigate or prosecute any alcohol or drug abuse patient.Wilson HealthIn the event this information is protected by the Federal Confidentiality of Alcohol and Drug Abuse Patient Records regulations: The Federal rules restrict any use of the information to criminally investigate or prosecute any alcohol or drug abuse patient.Wilson HealthIn the event this information is protected by the Federal Confidentiality of Alcohol and Drug Abuse Patient Records regulations: The Federal rules restrict any use of the information to criminally investigate or prosecute any alcohol or drug abuse patient.Wilson HealthIn the event this information is protected by the Federal Confidentiality of Alcohol and Drug Abuse Patient Records regulations: The Federal rules restrict any use of the information to criminally investigate or prosecute any alcohol or drug abuse patient.Wilson HealthIn the event this information is protected by the Federal Confidentiality of Alcohol and Drug Abuse Patient Records regulations: The Federal rules restrict any use of the information to criminally investigate or prosecute any alcohol or drug abuse patient.Wilson HealthIn the event this information is protected by the Federal Confidentiality of Alcohol and Drug Abuse Patient Records regulations: The Federal rules restrict any use of the information to criminally investigate or prosecute any alcohol or drug abuse patient.Wilson HealthIn the event this information is protected by the Federal Confidentiality of Alcohol and Drug Abuse Patient Records regulations: The Federal rules restrict any use of the information to criminally investigate or prosecute any alcohol or drug abuse patient.Wilson HealthIn the event this information is protected by the Federal Confidentiality of Alcohol and Drug Abuse Patient Records regulations: The Federal rules restrict any use of the information to criminally investigate or prosecute any alcohol or drug abuse patient.Wilson HealthIn the event this information is protected by the Federal Confidentiality of Alcohol and Drug Abuse Patient Records regulations: The Federal rules restrict any use of the information to criminally investigate or prosecute any alcohol or drug abuse patient.Wilson HealthIn the event this information is protected by the Federal Confidentiality of Alcohol and Drug Abuse Patient Records regulations: The Federal rules restrict any use of the information to criminally investigate or prosecute any alcohol or drug abuse patient.Wilson HealthIn the event this information is protected by the Federal Confidentiality of Alcohol and Drug Abuse Patient Records regulations: The Federal rules restrict any use of the information to criminally investigate or prosecute any alcohol or drug abuse patient.Wilson HealthIn the event this information is protected by the Federal Confidentiality of Alcohol and Drug Abuse Patient Records regulations: The Federal rules restrict any use of the information to criminally investigate or prosecute any alcohol or drug abuse patient.Wilson HealthIn the event this information is protected by the Federal Confidentiality of Alcohol and Drug Abuse Patient Records regulations: The Federal rules restrict any use of the information to criminally investigate or prosecute any alcohol or drug abuse patient.Wilson HealthIn the event this information is protected by the Federal Confidentiality of Alcohol and Drug Abuse Patient Records regulations: The Federal rules restrict any use of the information to criminally investigate or prosecute any alcohol or drug abuse patient.Wilson HealthIn the event this information is protected by the Federal Confidentiality of Alcohol and Drug Abuse Patient Records regulations: The Federal rules restrict any use of the information to criminally investigate or prosecute any alcohol or drug abuse patient.Wilson HealthIn the event this information is protected by the Federal Confidentiality of Alcohol and Drug Abuse Patient Records regulations: The Federal rules restrict any use of the information to criminally investigate or prosecute any alcohol or drug abuse patient.Wilson HealthIn the event this information is protected by the Federal Confidentiality of Alcohol and Drug Abuse Patient Records regulations: The Federal rules restrict any use of the information to criminally investigate or prosecute any alcohol or drug abuse patient.Wilson HealthIn the event this information is protected by the Federal Confidentiality of Alcohol and Drug Abuse Patient Records regulations: The Federal rules restrict any use of the information to criminally investigate or prosecute any alcohol or drug abuse patient.Wilson HealthIn the event this information is protected by the Federal Confidentiality of Alcohol and Drug Abuse Patient Records regulations: The Federal rules restrict any use of the information to criminally investigate or prosecute any alcohol or drug abuse patient.Wilson HealthIn the event this information is protected by the Federal Confidentiality of Alcohol and Drug Abuse Patient Records regulations: The Federal rules restrict any use of the information to criminally investigate or prosecute any alcohol or drug abuse patient.[facility] HealthIn the event this information is protected by the Federal Confidentiality of Alcohol and Drug Abuse Patient Records regulations: The Federal rules restrict any use of the information to criminally investigate or prosecute any alcohol or drug abuse patient.[facility] HealthIn the event this information is protected by the Federal Confidentiality of Alcohol and Drug Abuse Patient Records regulations: The Federal rules restrict any use of the information to criminally investigate or prosecute any alcohol or drug abuse patient.Wilson HealthIn the event this information is protected by the Federal Confidentiality of Alcohol and Drug Abuse Patient Records regulations: The Federal rules restrict any use of the information to criminally investigate or prosecute any alcohol or drug abuse patient.[facility] HealthIn the event this information is protected by the Federal Confidentiality of Alcohol and Drug Abuse Patient Records regulations: The Federal rules restrict any use of the information to criminally investigate or prosecute any alcohol or drug abuse patient.Wilson HealthIn the event this information is protected by the Federal Confidentiality of Alcohol and Drug Abuse Patient Records regulations: The Federal rules restrict any use of the information to criminally investigate or prosecute any alcohol or drug abuse patient.[facility] HealthIn the event this information is protected by the Federal Confidentiality of Alcohol and Drug Abuse Patient Records regulations: The Federal rules restrict any use of the information to criminally investigate or prosecute any alcohol or drug abuse patient.Wilson HealthIn the event this information is protected by the Federal Confidentiality of Alcohol and Drug Abuse Patient Records regulations: The Federal rules restrict any use of the information to criminally investigate or prosecute any alcohol or drug abuse patient.Wilson HealthIn the event this information is protected by the Federal Confidentiality of Alcohol and Drug Abuse Patient Records regulations: The Federal rules restrict any use of the information to criminally investigate or prosecute any alcohol or drug abuse patient.Wilson HealthIn the event this information is protected by the Federal Confidentiality of Alcohol and Drug Abuse Patient Records regulations: The Federal rules restrict any use of the information to criminally investigate or prosecute any alcohol or drug abuse patient.[facility] HealthIn the event this information is protected by the Federal Confidentiality of Alcohol and Drug Abuse Patient Records regulations: The Federal rules restrict any use of the information to criminally investigate or prosecute any alcohol or drug abuse patient.Wilson HealthIn the event this information is protected by the Federal Confidentiality of Alcohol and Drug Abuse Patient Records regulations: The Federal rules restrict any use of the information to criminally investigate or prosecute any alcohol or drug abuse patient.Wilson HealthIn the event this information is protected by the Federal Confidentiality of Alcohol and Drug Abuse Patient Records regulations: The Federal rules restrict any use of the information to criminally investigate or prosecute any alcohol or drug abuse patient.Wilson HealthIn the event this information is protected by the Federal Confidentiality of Alcohol and Drug Abuse Patient Records regulations: The Federal rules restrict any use of the information to criminally investigate or prosecute any alcohol or drug abuse patient.[facility] Reason for Visit (unrecogniz ed section and content) ReasonCommentsPT Progress NoteSpecialtyDiagnoses / ProceduresReferred By Contact Referred To ContactREHAB AND SPORTS THERAPY INS Diagnoses Spinal stenosis of lumbar region, unspecified whether neurogenic claudication present Lumbosacral spondylosis with radiculopathy Procedures CONSULT TO PHYSICAL THERAPY PHYSICAL THERAPY EVALUATION HIGH COMPLEX 45 MINS Steve Wagoner MD [address] [place] [address] [facility] [address] [place] [address] Referral IDStatusReasonStart DateExpiration DateVisits RequestedVisits [id number] PCP Requested Referral Auto-Generated Referral [id number] TherapyReasonCommentsImportant Medication Instruction for ANS w/o TILT QSART 09/16ReasonCommentsCare Coordinator - OtherReasonCommentsDizzinessReasonCommentsNew PatientReasonCommentsRadiology MammogramSpecialtyDiagnoses / ProceduresReferred By ContactReferred To ContactBR IMAGING Diagnoses Screening breast examination Procedures ITALO SCREENING SCREENING MAMMOGRAPHY BI 2-[place] [address] [address] [place] [id number] [facility] [address] [place] [phone] Referral IDStatusReasonStart DateExpiration DateVisits RequestedVisits [id number] Auto-Generated Referral [id number]qjDzbvlijeLpllarQtlgouwzjsy StockingsReasonCommentsSyncopeReasonCommentsFormsHuronReasonCommentsEstablished PatientReasonCommentshuron PodiatryReasonCommentsMed Change RequestReason CommentsFollow UpReasonComments[facility] DWOReasonCommentsFormsReasonComments Received Outside Medical RecordsPodiatryReasonCommentsFormsRite-Aid Medicare DWP ReasonCommentsMedication QuestionBlood PressureReasonCommentsRefill Request ReasonCommentsendocrine specialitesReasonCommentsFormsHuron PodiatryReason CommentsBlood PressureReasonCommentsAppointmentReasonCommentsLab OrdersReason CommentsYearly Exam With MammogramReasonCommentsRadiology MammogramSpecialty Diagnoses / ProceduresReferred By ContactReferred To ContactBR IMAGING Diagnoses Encounter for breast cancer screening other than mammogram Breast pain Encounter for screening mammogram for malignant neoplasm of breast Procedures ITALO SCREENING SCREENING MAMMOGRAPHY BI 2-VIEW BREAST INC CAD Marizol Babin MD [address] [place] [address] [facility] [address] [place] [phone] Referral IDStatusReasonStart DateExpiration DateVisits RequestedVisits [id number] Auto-Generated Referral [id number] / ProceduresReferred By ContactReferred To ContactPhysical Therapy Diagnoses Pain in right foot Procedures ME PHYSICAL THERAPY EVALUATION LOW COMPLEX 20 MINS Reji Bentley MD [address] [place] [address] [place] [address] Tameka Krause, PT [address] [place] [address] Referral IDStatusReasonStart DateExpiration DateVisits RequestedVisits [id number] Consult and Treat [id number] UpReasonCommentsResearchIRB # [id number] 2 Study to Evaluate the Safety and Efficacy of RTA 901 in Patients with Diabetic Peripheral Neuropathic PainPI: Starla Jaramillo Research Coordinator: Norma DelacruzCommentsEstablished PatientFollow UpReasonOnset DateCommentsEMG 08/24/2023SpecialtyDiagnoses / ProceduresReferred By ContactReferred To Contact [facility] Diagnoses Left leg weakness Disturbance of skin sensation Procedures EMG(NEURO/NI) NERVE CONDUCTION STUDIES 9-10 STUDIES Sheryl Garza APRN.ENVIRONMENTAL ENGINEER SCIENTIST [address] [place] [address] [facility] [address] [place] [address] Referral IDStatusReasonStart DateExpiration DateVisits RequestedVisits [id number] Auto-Generated Referral /[id number]gcowFqenhvpaajdtgvni suppliesReason CommentsNew PatientNEW NI MEDICALSpecialtyDiagnoses / ProceduresReferred By ContactReferred To ContactNeurology Diagnoses Labile blood pressure Abnormal saccadic eye movement Pursuit movement deficiency Postural instability Procedures CONSULT TO NEUROLOGY OFFICE/OUTPATIENT [facility] 60 MINUTES Sheryl Garza APRN.ENVIRONMENTAL ENGINEER SCIENTIST [address] [phone] Referral IDStatusReasonStart DateExpiration DateVisits RequestedVisits [id number] PCP Requested Referral /[id number]biltQcoyx DateCommentsRefill Request 4ReasonCommentsMedical Nutrition TherapyDiabetes/ Abnormal weight gain managementSpecialtyDiagnoses / ProceduresReferred By ContactReferred To Contact Diagnoses Type 2 diabetes mellitus with stage 3a chronic kidney disease, without long-term current use of insulin (HCC) Abnormal weight gain Procedures ENDOCRINOLOGY DIETITIAN VISIT (MNT) MEDICAL NUTRITION ASSMT&IVNTJ INDIV EACH 15 HI MEDICAL NUTRITION ASSMT&IVNTJ INDIV EACH 15 HI MEDICAL NUTRITION ASSMT&IVNTJ INDIV EACH 15 HI MEDICAL NUTRITION ASSMT&IVNTJ INDIV EACH 15 HI Lorraine [place]ill [place] [facility] [place] [address] Referral IDStatusReasonStart DateExpiration DateVisits RequestedVisits [id number] PCP Requested Referral /[id number]xvukMvnzbdwqUycyztfkh MRISpecialty Diagnoses / ProceduresReferred By ContactReferred To ContactMR IMAGING Diagnoses Labile blood pressure Abnormal saccadic eye movement Pursuit movement deficiency Other symptoms and signs involving the nervous system Procedures MRI BRAIN WO/W IVCON MRI BRAIN BRAIN STEM W/O W/CONTRAST MATERIAL Sheryl Garza, [place] [address] [facility] [place] [address] Referral IDStatusReasonStart DateExpiration DateVisits RequestedVisits [id number] Auto-Generated Referral /[id number] QuestionPatient called to ask for assistance with primo sensorReasonCommentsReturning Patient's CallPt reports unable to open Primo 3 sample provided by educator. Requests another sample. ReasonCommentsNew PatientBack pain and right legReasonCommentsRadiology XRReason CommentsPT EvalSpecialtyDiagnoses / ProceduresReferred By ContactReferred To ContactMR IMAGING Diagnoses Spinal stenosis of cervical region Bilateral arm weakness Procedures MRI CERVICAL SPINE WO IVCON MRI SPINAL CANAL CERVICAL W/O CONTRAST MATRL Steve Wagoner MD [address] [place] [address] [facility] [place] [address] Referral IDStatusReasonStart DateExpiration DateVisits RequestedVisits [id number] Auto-Generated Referral [id number] / ProceduresReferred By ContactReferred To ContactMR IMAGING Diagnoses Spinal stenosis of lumbar region, unspecified whether neurogenic claudication present Lumbosacral spondylosis with radiculopathy Procedures MRI LUMBAR SPINE WO IVCON MRI SPINAL CANAL LUMBAR W/O CONTRAST MATERIAL Steve Wagoner MD [address] [place] [address] [facility] [place] [address] Referral IDStatusReBryan [facility] DateExpiration DateVisits RequestedVisits [id number] Auto-Generated Referral [id number]x PatientFollow UpSpecialtyDiagnoses / ProceduresReferred By ContactReferred To Contact Procedures CARDIOVASCULAR MEDICINE OP FOLLOW UP APPT ORDER Andrea Lees MD [address] [place] [address] Referral IDStatusReasonAustin DateExpiration DateVisits RequestedVisits [id number] Not Required PCP Requested Referral [id number] Nutrition TherapyDiabetes/ Weight management follow-upSpecialtyDiagnoses / ProceduresReferred By ContactReferred To ContactBR IMAGING Diagnoses Breast disease Procedures ITALO DIAGNOSTIC BILATERAL DIAGNOSTIC MAMMOGRAPHY COMPUTER-AIDED DETCJ BI Heather Ford MD [address] [place] [address] [facility] [address] [place], [place] [phone] Referral IDStatusReasonStart DateExpiration DateVisits RequestedVisits [id number] Auto-Generated Referral [id number]i PatientReasonCommentsProcedure SpecialtyDiagnoses / ProceduresReferred By ContactReferred To ContactREHAB AND SPORTS THERAPY INS Diagnoses 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athy (HCC) Imbalance Procedures CONSULT TO PHYSICAL THERAPY PHYSICAL THERAPY EVALUATION HIGH COMPLEX 45 MINS Sheryl Schwartz, FISH AND GAME WARDEN.ENVIRONMENTAL ENGINEER SCIENTIST [address] [place] [address] [facility] [place] [address] Referral IDStatusReasonStart DateExpiration DateVisits RequestedVisits [id number] PCP Requested Referral Auto-Generated Referral /[id number]mitdWepldvzyFnlahmw UpdateReason CommentsPatient UpdateMedication UpdateReasonCommentsPreparations For Procedures ReasonCommentsPost Injection callReasonOnset DateCommentsRefill Request 4ReasonCommentsFollow UpLeg PainLow Back PainReasonOnset DateComments Refill Qymabqy25/11/2024ReasonOnset DateCommentsRefill Vrxslyf78/20/2024Reason Onset DateCommentsRefill Gqhfhyk54/12/2024ReasonCommentsMedical Nutrition TherapyDiabetes management follow-upReasonCommentsMedication ProblemReason CommentsPrior AuthorizationMounjaroReasonCommentsRadio Gen RMPSpecialtyDiagnoses / ProceduresReferred By ContactReferred To ContactXR IMAGING Diagnoses Fall, initial encounter Procedures XR HIP GENERAL 3V PELV/AP/LAT RIGHT RADEX HIP UNILATERAL WITH PELVIS 2-3 VIEWS Steve Wagoner MD [address] [place] [address] [facility] [place] [address] Referral IDStatusReasonStart DateExpiration DateVisits RequestedVisits [id number] Auto-Generated Referral [id number]ooeTxwgywjfIjwpboowcqpd for ProcedureMychartReasonCommentsPreperations for Procedure CallReasonComments Preperations for ProcedureMychartReasonOnset DateCommentsRefill Request 06/14/2024ReasonCommentsPatient QuestionPt calling for initial appt for spouse - pt reports significant unintentional weight loss.ReasonCommentsInsurance AuthorizationApproval - tirzepatide (MOUNJARO) 7.5 mg/0.5 mL pen injectorReason CommentsDiabetesDexcomReasonCommentsPost Injection QuestionsReasonCommentsForms US MedReasonCommentsFollow UpReasonCommentsPatient UpdateUS MEDReasonComments Follow Up Phone CallPost InjectionReasonCommentsDiabetesFollow UpMounjaro is causing weight gainReasonCommentsPreperations for ProcedureReasonCommentsNew Patient EvaluationNew patientSpecialtyDiagnoses / ProceduresReferred By Contact Referred To Contact Diagnoses Lumbosacral spondylosis with radiculopathy Scoliosis, unspecified scoliosis type, unspecified spinal region Spinal stenosis of lumbar region, unspecified whether neurogenic claudication present Procedures CONSULT TO SPINE SURGERY OFFICE/OUTPATIENT [facility] 60 MINUTES Steve Wagoner MD [address] [place] [address] Phone: tel: fax: Referral IDStatusReasonStart DateExpiration DateVisits RequestedVisits [id number] PCP Requested Referral 1ReasonOnset DateCommentsRefill Dokkrfq5510/26/2024 Care Teams (unrecognized sec tion and content) Team Status: Active Member Role Status Dates Erich Gillis DO Primary Care Provider Active Team Status: Inactive Member Role Status Dates Erich Gillis DO Primary Care Provider, Attending Provi jair Active Team MemberRelationshipSpecialtyStart DateEnd Date Erich Gillis [address] [place] [phone] PCP - General10/28/09 No, Referral Referring12/29/17 Da King MD [address] [place] [address] Primary Staff PhysicianCardiology06/27/18Team MemberRelationshipSpecialtyStart DateEnd [facility] Erich Gillis [place] [phone] PCP - General10/28/09 No, Referral Referring12/29/17 Da King MD [address] [phone] Primary Staff PhysicianCardiology06/27/18Team MemberRelationshipSpecialtyStart DateEnd Date [address] [place] [phone] PCP - General10/28/09 No, Referral Referring12/29/17 Da King MD [address] [phone] Primary Staff PhysicianCardiology06/27/18Team MemberRelationshipSpecialtyStart DateEnd Date [place] [phone] PCP - General10/28/09 No, Referral Referring12/29/17 Da King MD [address] [phone] Primary Staff PhysicianCardiology06/27/18Team MemberRelationshipSpecialtyStart DateEnd Date Arsen[address] [phone] PCP - [facility]10/28/09 No, Referral Referring12/29/17 Da King MD [address] [place] [address] Primary Staff PhysicianCardiology3Team MemberRelationshipSpecialtyStart DateEnd Date Erich Gillis [place] [phone] PCP - General10/28/09 No, Referral Referring12/29/17 Da King MD [address] [place] [address] Primary Staff PhysicianCardiology3Team MemberRelationshipSpecialtyStart DateEnd Date [place] [place] [phone] PCP - General10/28/09 No, Referral Referring12/29/17 Da King MD [address] [place] [address] Primary Staff PhysicianCardiology3Team MemberRelationshipSpecialtyStart DateEnd Date [place] [phone] PCP - General10/28/09 No, Referral Referring12/29/17 Da King MD [address] [place] [address] Primary Staff PhysicianCardiology3Team MemberRelationshipSpecialtyStart DateEnd Date [address] [place] [phone] PCP - General10/28/09 No, Referral Referring12/29/17 Da King MD [address] [place] [address] Primary Staff PhysicianCardiology06/27/18Team MemberRelationshipSpecialtyStart DateEnd Date E[place] [phone] PCP - General10/28/09 No, Referral Referring12/29/17 Da King MD [address] [place] [address] Primary Staff PhysicianCardiology06/27/18Team MemberRelationshipSpecialtyStart DateEnd Date ArseniorEich saenz [place] [phone] PCP - General10/28/09 No, Referral Referring12/29/17 Da King MD [address] [place] [address] Primary Staff PhysicianCardiology06/27/18Team MemberRelationshipSpecialtyStart DateEnd Date ArsenioErich saenz [place] [phone] PCP - General10/28/09 No, Referral Referring12/29/17 Da King MD [address] [place] [address] Primary Staff PhysicianCardiology06/27/18 Team Status: Inactive Member Role Status Dates Erich Gillis DO Primary Care Provider Active Misty Marshall ProviderActive Team Status: Inactive Member Role Status Dates Erich Gillis , Primary Care Provider Active Erich Gillis DO CHCAttending ProviderActiveTeam MemberRelationshipSpecialtyStart DateEnd Date CarlinEricher [address] [place] [phone] PCP - General10/28/09 No, Referral Referring12/29/17 Da King MD [address] [place] [address] Primary Staff PhysicianCardiology06/27/18Team MemberRelationshipSpecialtyStart DateEnd Date [place] [id number] PCP - General10/28/09 No, Referral Referring12/29/17 Da King MD [address] [place] [address] Primary Staff PhysicianCardiology06/27/18Team MemberRelationshipSpecialtyStart DateEnd Date [place] [phone] PCP - General7 No, Referral Referring12/29/17 Da King MD [address] [place] [address] Primary Staff PhysicianCardiology06/27/18Team MemberRelationshipSpecialtyStart DateEnd Date [place] [phone] PCP - General10/28/09 No, Referral Referring12/29/17 Da King MD [address] [place] [address] Primary Staff PhysicianCardiology06/27/18Team MemberRelationshipSpecialtyStart DateEnd Date ArsenioKesha saenz[address] [address] PCP - General710 No, Referral Referring12/29/17 Da King MD [address] [place], [place] [id number] Primary Staff PhysicianCardiology06/27/18Team MemberRelationshipSpecialtyStart DateEnd Date Erich Gillis [address] [place], [place] [phone] PCP - General10/28/09 No, Referral Referring12/29/17 Da King MD [address] [place] [address] Primary Staff PhysicianCardiology06/27/18Team MemberRelationshipSpecialtyStart DateEnd Date Erich Gillis [address] [place] [phone] PCP - General10/28/09 No, Referral Referring12/29/17 Da King MD [address] [place] [address] Primary Staff PhysicianCardiology06/27/18 Team Status: Inactive Member Role Status Dates Erich Gillis DO Primary Care Provider Active Madi Almonte , [facility] ProviderActiveTeam MemberRelationshipSpecialtyStart DateEnd Date Erich Gillis [address] [place] [phone] PCP - General10/28/09 No, Referral Referring12/29/17 Da King MD [address] [place] [address] Primary Staff PhysicianCardiology06/27/18Team MemberRelationshipSpecialtyStart DateEnd Date Erich Gillis [address] [place], [place] [phone] PCP - General10/28/09 No, Referral Referring12/29/17 Da King MD [address] [place] [address] Primary Staff PhysicianCardiology06/27/18Team MemberRelationshipSpecialtyStart DateEnd Date Erich Gillis [address] [place], [place] [phone] PCP - General10/28/09 No, Referral Referring12/29/17 Da King MD [address] [place] [address] Primary Staff PhysicianCardiology06/27/18Team MemberRelationshipSpecialtyStart DateEnd Date Erich Gillis [address] [place], [place] [phone] PCP - General10/28/09 No, Referral Referring12/29/17 Da King MD [address] [place] [id number] Primary Staff PhysicianCardiology06/27/18Team MemberRelationshipSpecialtyStart DateEnd Date Erich Gillis [address] [place], [place] [phone] PCP - General10/28/09 No, Referral Referring12/29/17 Da King MD [address] [place] [address] Primary Staff PhysicianCardiology06/27/18Team MemberRelationshipSpecialtyStart DateEnd [facility] Erich Gillis [address] [place], [place] [phone] PCP - General10/28/09 No, Referral Referring12/29/17 Da King MD [address] [place] [id number] Primary Staff PhysicianCardiology06/27/18Team MemberRelationshipSpecialtyStart DateEnd [facility] Erich Gillis [address] [place] [phone] PCP - General10/28/09 No, Referral Referring12/29/17 Da King MD [address] [place] [address] Primary Staff PhysicianCardiology06/27/18 Team Status: Active Member Role Status Jatin Reddy LPN Care Manager Active Patricia Dominguez Care ProviderActive Team Status: Active Member Role Status Dates Provider Conversion Attending Provider Active St art: April 06, 2023 Team Status: Inactive Member Role Status Jatin Gillis DO Primary Care Provider Active Sta rt: June 07, 2023 End: June 07, 2023Misty Fernández ProviderActiveStart: June 07, 2023 End: June 07, 2023 Team Status: Inactive Member Role Status Jatin Gillis DO Primary Care Provider Active Sta rt: June 17, 2023 End: June 17, 2023ANA LAURA ChandraP-BCEmergency ProviderActiveStart: June 17, 2023 End: June 17, 2023 Team Status: Inactive Member Role Status Jatin Gillis DO Primary Care Provide r, Attending Provider Active Start: June 20, 2023 End: June 20, 2023 Team Status: Active Member Role Status Dates Erich Gillis DO Primary Care Provide r, Attending Provider Active Start: June 21, 2023 Team Status: Inactive Member Role Status Dates Erich Gillis DO Primary Care Provider Active Sta rt: June 27, 2023 End: June 27, 2023Cheri Hansen NP-CAttenalbert ProviderActiveStart: June 27, 2023 End: June 27, 2023 Team Status: Inactive Member Role Status Dates Erich Gillis DO Primary Care Provider Active Sta rt: June 28, 2023 End: June 27Misty Kirkland ProviderActiveStart: June 28, 2023 End: June 28, 2023 Team Status: Inactive Member Role Status Dates Erich Gillis DO Primary Care Provider Active Sta rt: July 19, 2023 End: July 19, 2023Misty Fernández ProviderActiveStart: July 19, 2023 End: July 19, 2023Team MemberRelationshipSpecialtyStart DateEnd Date Erich Gillis [address] [place], [place] [phone] PCP - General10/28/09 No, Referral Referring12/29/17 Da King MD [address] [place] [address] Primary Staff PhysicianCardiology06/27/18Team MemberRelationshipSpecialtyStart DateEnd Date Erich Gillis [address] [place] [phone] PCP - General10/28/09 No, Referral Referring12/29/17 Da King MD [address] [place], [place] [id number] Primary Staff PhysicianCardiology06/27/18Team MemberRelationshipSpecialtyStart DateEnd Date Erich Gillis [address] [place], [place] [phone] PCP - General10/28/09 No, Referral Referring12/29/17 Da King MD [address] [place], [place] [id number] Primary Staff PhysicianCardiology06/27/18Team MemberRelationshipSpecialtyStart DateEnd Date Erich Gillis [address] [place], [place] [phone] PCP - General10/28/09 No, Referral Referring12/29/17 Da King MD [address] [place] [address] Primary Staff PhysicianCardiology06/27/18 Team Status: Active Member Role Status Dates Erich Gillis DO Primary Care Provide r, Attending Provider Active Start: July 26, 2023 Team Status: Inactive Member Role Status Dates Erich Gillis DO Primary Care Provide r, Attending Provider Active Start: August 31, 2023 End: August 31, 2023Team MemberRelationshipSpecialtyStart DateEnd Date Erich Gillis [address] [place], [place] [phone] PCP - General10/28/09 No, Referral Referring12/29/17 Da King MD [address] [place] [address] Primary Staff PhysicianCardiology06/27/18Team MemberRelationshipSpecialtyStart DateEnd Date Erich Gillis [address] [place], [place] [phone] PCP - General10/28/09 No, Referral Referring12/29/17 Da King MD [address] [place] [id number] Primary Staff PhysicianCardiology06/27/18Team MemberRelationshipSpecialtyStart DateEnd Date Erich Gillis [address] [place] [address] PCP - General10/28/09 No, Referral Referring12/29/17 Da King MD [address] [place] [address] Primary Staff PhysicianCardiology06/27/18Team MemberRelationshipSpecialtyStart DateEnd Date Erich Gillis [address] [place], [place] [phone] PCP - General10/28/09 No, Referral Referring12/29/17 Da King MD [address] [place] [id number] Primary Staff PhysicianCardiology06/27/18 Team Status: Active Member Role Status Dates Erich Gillis DO Primary Care Provider Active Sta rt: September 19, 2023 Jordan Lim ProviderActiveStart: September 19, 2023 Team Status: Inactive Member Role Status Dates Erich Gillis DO Primary Care Provide r, Attending Provider Active Start: October 03, 2023 End: October 03, 2023Team MemberRelationshipSpecialtyStart DateEnd Date Erich Gillis [address] [place], [place] [phone] PCP - General10/28/09 No, Referral Referring12/29/17 Da King MD [address] [place] [address] Primary Staff PhysicianCardiology06/27/18Team MemberRelationshipSpecialtyStart DateEnd Date Erich Gillis [address] [place], [place] [phone] PCP - General10/28/09 No, Referral Referring12/29/17 Da King MD [address] [place] [id number] Primary Staff PhysicianCardiology06/27/18Team MemberRelationshipSpecialtyStart DateEnd Date Erich Gillis [address] [place], [place] [phone] PCP - General10/28/09 No, Referral Referring12/29/17 Da King MD [address] [place], [place] [id number] Primary Staff PhysicianCardiology06/27/18Team MemberRelationshipSpecialtyStart DateEnd Date Erich Gillis [address] [place], [place] [phone] PCP - General10/28/09 No, Referral Referring12/29/17 Da King MD [address] [place] [address] Primary Staff PhysicianCardiology06/27/18 Team Status: Active Member Role Status Dates Erich Gillis DO Primary Care Provider Active Sta rt: October 06, 2023 Eri Capelety , TON CYLINDER INSPECTOR-CAttending ProviderActiveStart: October 06, 2023 Team Status: Inactive Member Role Status Dates Erich Gillis DO Primary Care Provide r, Attending Provider Active Start: November 22, 2023 End: November 22, 2023Team MemberRelationshipSpecialtyStart DateEnd Date Erich Gillis [address] [place], [place] [phone] PCP - General10/28/09 No, Referral Referring12/29/17 Da King MD [address] [place] [address] Primary Staff PhysicianCardiology06/27/18Team MemberRelationshipSpecialtyStart DateEnd Date Erich Gillis [address] [place] [phone] PCP - General10/28/09 No, Referral Referring12/29/17 Da King MD [address] [place] [address] Primary Staff PhysicianCardiology06/27/18Team MemberRelationshipSpecialtyStart DateEnd Date Erich Gillis [address] [place] [phone] PCP - General10/28/09 No, Referral Referring12/29/17 Da King MD [address] [place] [id number] Primary Staff PhysicianCardiology06/27/18Team MemberRelationshipSpecialtyStart DateEnd Date Erich Gillis [address] [place], [place] [phone] PCP - General10/28/09 No, Referral Referring12/29/17 Da King MD [address] [place] [id number] Primary Staff PhysicianCardiology06/27/18Team MemberRelationshipSpecialtyStart DateEnd Date Erich Gillis [address] [place], [place] [phone] PCP - General10/28/09 No, Referral Referring12/29/17 Da King MD [address] [place] [address] Primary Staff PhysicianCardiology06/27/18Team MemberRelationshipSpecialtyStart DateEnd Date Erich Gillis [address] [place], [place] [phone] PCP - General10/28/09 No, Referral Referring12/29/17 Da King MD [address] [place] [id number] Primary Staff PhysicianCardiology3Team MemberRelationshipSpecialtyStart DateEnd Date Erich Gillis [address] [place] [phone] PCP - General10/28/09 No, Referral Referring12/29/17 Da King MD [address] [place] [address] Primary Staff PhysicianCardiology06/27/18 Team Status: Inactive Member Role Status Dates Erich Gillis DO Primary Care Provide r, Attending Provider Active Start: December 22, 2023 End: December 22, 2023Team MemberRelationshipSpecialtyStart DateEnd Date Erich Gillis [address] [place], [place] [phone] PCP - General10/28/09 No, Referral Referring12/29/17 Da King MD [address] [place] [address] Primary Staff PhysicianCardiology06/27/18Team MemberRelationshipSpecialtyStart DateEnd Date Erich Gillis [address] [place], [place] [phone] PCP - General10/28/09 No, Referral Referring12/29/17 Da King MD [address] [place] [address] Primary Staff PhysicianCardiology06/27/18Team MemberRelationshipSpecialtyStart DateEnd Date Erich Gillis [address] [place] [phone] PCP - General10/28/09 No, Referral Referring12/29/17 Da King MD [address] [place] [address] Primary Staff PhysicianCardiology06/27/18Team MemberRelationshipSpecialtyStart DateEnd Date Erich Gillis [address] [place], [place] [phone] PCP - General10/28/09 No, Referral Referring12/29/17 Da King MD [address] [place] [id number] Primary Staff PhysicianCardiology06/27/18Team MemberRelationshipSpecialtyStart DateEnd Date Erich Gillis [address] [place], [place] [phone] PCP - General10/28/09 No, Referral Referring12/29/17 Da King MD [address] [place] [address] Primary Staff PhysicianCardiology06/27/18Team MemberRelationshipSpecialtyStart DateEnd Date Erich Gillis [address] [place], [place] [phone] PCP - General10/28/09 No, Referral Referring12/29/17 Da King MD [address] [place] [address] Primary Staff PhysicianCardiology06/27/18 Team Status: Inactive Member Role Status Dates Erich Kuns , DO Primary Care Provider Active Sta rt: February 08, 2024 End: February 07olleen Misty Ramires ProviderActiveStart: February 08, 2024 End: February 08, 2024Team MemberRelationshipSpecialtyStart DateEnd Date Erich Gillis [address] [place], [place] [phone] PCP - General10/28/09 No, Referral Referring12/29/17 Da King MD [address] [place] [address] Primary Staff PhysicianCardiology06/27/18 Team Status: Inactive Member Role Status Dates Erich Gillis DO Primary Care Provide r, Attending Provider Active Start: February 22, 2024 End: February 22, 2024 Team Status: Inactive Member Role Status Dates Erich Gillis DO Primary Care Provide r, Attending Provider Active Start: March 01, 2024 End: March 01, 2024 Team Status: Active Member Role Status Dates Erich Gillis DO Primary Care Provider Active Sta rt: March 01, 2024 Jordan Lim ProviderActiveStart: March 01, 2024 Team MemberRelationshipSpecialtyStart DateEnd Date Erich Gillis [address] [place] [phone] PCP - General10/28/09 No, Referral Referring12/29/17 Da King MD [address] [place], [place] [address] Primary Staff PhysicianCardiology06/27/18Team MemberRelationshipSpecialtyStart DateEnd Date Erich Gillis [address] [place] [phone] PCP - General10/28/09 No, Referral Referring12/29/17 Da King MD [address] [place] [address] Primary Staff PhysicianCardiology06/27/18 Team Status: Inactive Member Role Status Dates Erich Gillis DO Primary Care Provider Active Sta rt: May 09, 2024 End: May 09Misty Kirkland ProviderActiveStart: May 09, 2024 End: May 09, 2024 Team Status: Active Member Role Status Dates Meliton Smith MD Specialist Active Lauren Reddy [facility] ManagerActiveLorraine DegrootpecialistActiveCamKENYATTA HaddadpecialistActiveCoKENYATTA WatkinspecialistActiveAndnilda Downs MD SpecialistActiveReji Bentley , RAZIA [facility] ASSOCIATIONpecialistARimma Gillis DO Primary Care ProviderActive Team Status: Active Member Role Status Jatin Gillis DO Primary Care Provider Active Sta rt: May 11, 2024 Lorraine Andersen ProviderActiveStart: May 11, 2024 Team Status: Inactive Member Role Status Jatin Gillis DO Primary Care Provide r, Attending Provider Active Start: May 23, 2024 End: May 23, 2024 Team Status: Inactive Member Role Status Jatin Gillis DO Primary Care Provide r, Attending Provider Active Start: May 30, 2024 End: May 30, 2024 Team Status: Inactive Member Role Status Jatin Gillis DO Primary Care Provide r, Attending Provider Active Start: June 12, 2024 End: June 12, 2024Team MemberRelationshipSpecialtyStart DateEnd Date Erich Gillis [address] [place] [phone] PCP - General10/28/09 No, Referral Referring12/29/17 Da King MD [address] [place] [address] Primary Staff PhysicianCardiology06/27/18Team MemberRelationshipSpecialtyStart DateEnd Date Erich Gillis [address] [place], [place] [phone] PCP - General10/28/09 No, Referral Referring12/29/17 Da King MD [address] [place] [id number] Primary Staff PhysicianCardiology06/27/18 Team Status: Active Member Role Status Dates Erich Gillis DO Primary Care Provider Active Sta rt: July 23, 2024 Karl Cook , T[employer] CYLINDER INSPECTOR-CAttending ProviderActiveStart: July 23, 2024 Team Status: Inactive Member Role Status Dates Erich Gillis DO Primary Care Provide r, Attending Provider Active Start: September 12, 2024 End: September 12, 2024Team MemberRelationshipSpecialtyStart DateEnd Date Erich Gillis [address] [place], [place] [phone] PCP - General10/28/09 No, Referral Referring12/29/17 Da King MD [address] [place] [id number] Primary Staff PhysicianCardiology06/27/18Team MemberRelationshipSpecialtyStart DateEnd Date Erich Gillis [address] [place], [place] [phone] PCP - General10/28/09 No, Referral Referring12/29/17 Da King MD [address] [place] [id number] Primary Staff PhysicianCardiology3Team MemberRelationshipSpecialtyStart DateEnd Date Erich Gillis [address] [place], [place] [phone] PCP - General10/28/09 No, Referral Referring12/29/17 Da King MD [address] [place] [address] Primary Staff PhysicianCardiology06/27/18Team MemberRelationshipSpecialtyStart DateEnd Date Erich Gillis [address] [place], [place] [phone] PCP - General10/28/09 No, Referral Referring12/29/17 Da King MD [address] [place] [address] Primary Staff PhysicianCardiology3Team MemberRelationshipSpecialtyStart DateEnd Date Erich Gillis [address] [place], [place] [phone] PCP - General10/28/09 No, Referral Referring12/29/17 Da King MD [address] [place] [id number] Primary Staff PhysicianCardiology3Team MemberRelationshipSpecialtyStart DateEnd Date Erich Gillis [address] [place], [place] [phone] PCP - General10/28/09 No, Referral Referring12/29/17 Da King MD [address] [place] [address] Primary Staff PhysicianCardiology06/27/18 Team Status: Active Member Role Status Jatin Gillis DO Primary Care Provider Active Sta rt: November 28, 2024 Lorraine Andersen ProviderActiveStart: November 28, 2024 Team Status: Inactive Member Role Status Jatin Gillis DO Primary Care Provider Active Sta rt: December 18, 2024 End: December 18barbara Gillis DOAttmarisel ProviderActiveStart: December 18, 2024 End: December 18, 2024 Team Status: Active Member Role/Relationship Status Dates Meliton Smith MD Specialist Active Lauren Reddy [facility] ManagerActiveRunnells Specialized Hospitalflower DegrootpecialistActiveCamKENYATTA HaddadpecialistActiveCollKENYATTA CradonapecialistActiveAndnilda Downs MD SpecialistActivePeRice DPM [facility] ASSOCIATIONpecialistARimma Gillis DO Primary Care ProviderActive Team Status: Active Member Role/Relationship Status Jatin Gillis DO Primary Care Provider Active Sta rt: November 28, 2024 Lorraine Andersen ProviderActiveStart: November 28, 2024 Team Status: Inactive Member Role/Relationship Status Jatin Gillis DO Primary Care Provider Active Sta rt: December 18, 2024 End: December 18barbara Gillis DOAttmarisel ProviderActiveStart: December 18, 2024 End: December 18, 2024 Team Status: Inactive Member Role/Relationship Status Jatin Gillis DO Primary Care Provider Active Sta rt: January 28, 2025 End: January 28, 2025Misty Caballero ProviderActiveStart: January 28, 2025 End: January 28, 2025 Goals (unrecognized section and content) Goals may be documented in a n alternate section INFORMATION SOURCE (unrecogn ized section and content) DATE CREATED AUTHOR 05/31/2023 [facility] DATE CREATED AUTHOR AUTHOR'S ORGANIZ ATION 02/08/[address] [facility] DATE CREATED AUTHOR AUTHOR'S ORGANIZ ATION 2024 [facility] DATE CREATED AUTHOR AUTHOR'S ORGANIZ ATION 05/27/2024 [facility] DATE CREATED AUTHOR AUTHOR'S ORGANIZ ATION 06/14/2024 [facility] DATE CREATED AUTHOR AUTHOR'S ORGANIZ ATION 01/20/2025 [facility] DATE CREATED AUTHOR AUTHOR'S ORGANIZ ATION 02/14/[address] [facility] FOR RECORDS PERTAINING TO PATIENTS WHO ARE OR HAVE BEEN ENROLLED IN A CHEMICAL DEPENDENCY/SUBSTANCEABUSE PROGRAM, SOME INFORMATION MAY BE OMITTED. This clinical summary was aggregated from multiple sources. Caution should be exercised in using it in the provision of clinical care. This summary normalizes information from multiple sources, and as a consequence, information in this document may materially change the coding, format and clinical context of patient data. In addition, data may be omitted in some cases. CLINICAL DECISIONS SHOULD BE BASED ON THE PRIMARY CLINICAL RECORDS. [facility] provides no warranty or guarantee of the accuracy or completeness of information in this document.
== END 2025-03-04 13:57 | disposition home or self-care (01) ==
LOC: RAD 13:57
PROVIDERS: PCP Family Medicine; Visit Provider Podiatrist Foot & Ankle Surgery
DX: M79.671 Pain in right foot (principal); M19.071 Primary osteoarthritis, right ankle and foot
CPT/HCPCS: 73630

== ENCOUNTER 2025-03-21 08:24 | Outpatient (OUT) | payer MEDICARE, OTHER, SELFPAY ==
--- OUTSIDE RECORDS SUMMARY | 2025-03-18 20:34 | XMS_ITS | Continuity of Care Document ---
Author Organization [facility] Address [address] [place] [address] Phone Care Team Providers Care Straightener And Aligner Name Role Phone Mike Gillis DO Primary Care Provider Antony Ellis MD Attending Provider Mike Gillis DO Attending Provider Care Teams Patient Care Team Team Status: Active Member Role/Relationship Status Dates Meliton Smith MD Specialist Active Moris Allen ManagerActiveLorraine DegrootpecialistActiveKENYATTA PaulpecialistActiveKENYATTA MarshallpecialistActiveIker Downs MD SpecialistActiveAgustin Bentley , RAZIA MSSpecialistActiveMike Gillis DO Primary Care ProviderActive Visit Care Team Team Status: Inactive Member Role/Relationship Status Dates Mike Gillis DO Primary Care Provider Active Sta rt: January 28, 2025 End: January 28, 2025Misty Caballero ProviderActiveStart: January 28, 2025 End: January 28, 2025 Visit Care Team Team Status: Inactive Member Role/Relationship Status Dates Mike Gillis DO Primary Care Provider Active Sta rt: February 21, 2025 End: February 21retmarvin Gillis DOAttmarisel ProviderActiveStart: February 21, 2025 End: February 21, 2025 Visit Care Team Team Status: Inactive Member Role/Relationship Status Dates Mike Gillis DO Primary Care Provider Active Sta rt: March 18, 2025 End: March 18barbara Gillis DOAttending ProviderActiveStart: March 18, 2025 End: March 18, 2025 Visit Care Team Team Status: Inactive Member Role/Relationship Status Dates Mike Gillis DO Primary Care Provider Active Sta rt: March 18, 2025 End: March 18barbara Gillis DOAttending ProviderActiveStart: March 18, 2025 End: March 18, 2025 Visit Care Team Team Status: Inactive Member Role/Relationship Status Dates Mike Gillis DO Primary Care Provider Active Sta rt: March 18, 2025 End: March 18barbara Gillis DOAttending ProviderActiveStart: March 18, 2025 End: March 18, 2025 Chief Complaint and Reason for Visit Chief Complaint Admit Date [facility] (one) January 102024 9:53am Vist for DM shoes only February 21 7:42am Coughing March 18, 2025 9 :23am J45.909 March 18, 2025 1 0:58am Reason for Visit Admit Date Abnormal weight gain January 28, 2025 9:53am [...] 9:53am Osteoarthritis of knee January 28 9:53am Type 2 diabetes mellitus with complicati ons February 21, 2025 7:42am Acute asthmatic bronchitis March 18, 2025 9:23am Allergies, Adverse Reactions, Alerts Allergen Type Severity Reaction Last Updated Verified Status Comments aspirin Allergy Severe Unknown Reaction March 18, 2025 9:49am Yes Active Bruising, platelet dysfunction levofloxacin Allergy Unknown Diarrhea, diarrhea, hot flashes March 18, 2025 9:49am Yes Active moxifloxacinAllergyUnknownUnknown Reaction, diarrheaDecember 2024 9:49amYes ActiveSensation of Burning up from the inside NSAIDS (Non-Steroidal Anti-InflammaAllergyUnknownUnknown ReactionDecember 2024 9:49amYesActive affects platelets Social History Smoking Status Status Start Date End Date Date of Observa tion Never smoked tobacco (finding) January 28, 2025 10:38am Observation Status Observation Response Date of Response Legal Sex Female (finding) [facility] 1945 Family History Relationship Condition Age at [...] 2024 2:02pmUnknownActiveRenal colicFebruary 2021 6:57pmUnknownActiveHoarsenessFebruary 2024 1:21pmUnknownActiveHepatic steatosisMarch 2023 1:53pmUnknownActiveCKD (chronic kidney disease) stage 3, GFR 30-59 ml/minOctober 2024 4:47pmUnknownActiveCervical radiculopathy June 20, 2023 1:53pmUnknownActiveAbnormal weight gainOctober 2024 4:45pmUnknownActiveSymptomatic varicose veins of right lower extremityFebruary 2023 3:39pmUnknownActiveHyperlipidemiaMarch 2023 1:53pmUnknownActive Right leg painApril 2023 10:48amUnknownActiveMaxillary sinusitisMarch 2023 1:53pmUnknownActiveMixed hyperlipidemiaOctober 2024 4:46pmUnknown ActiveAcute asthmatic bronchitisDeceer 2024 10:19amUnknownActiveEasy bruisabilityMay 2018 1:48pmUnknownActiveType 2 diabetes mellitus with complicationsMarch 2023 1:53pmUnknownActiveOsteoarthritis of kneeMay 2018 12:53pmUnknownActiveHistory of fallNovember 2023 2:37pmUnknownActive Metabolic syndromeOctober 2024 4:47pmUnknownActiveNeuropathyMay 2024 11:10amUnknownActiveRestless leg syndromeMarch 2023 1:53pmUnknownActive Elevated TSHMarch 2023 1:53pmUnknownActiveBMI 28.0-28.9,adultSeptember 2024 10:07amUnknownActivePOTS (postural orthostatic tachycardia syndrome) June 20, 2023 1:53pmUnknownActiveAnxiety and depressionMarch 2023 1:53pmUnknownActiveS/P cataract surgeryJune 2023 9:46amUnknownActive bilateral eyes hronic back painJune 2024 2:03pmUnknownActiveLumbar back painMarch 2023 1:53pmUnknownActiveAbnormal mammogramNovember 2024 8:11amUnknownActiveScreening for breast cancerAugust 2024 12:03pm UnknownActiveAllergic rhinitisMarch 2023 1:53pmUnknownActiveArthritis of carpometacarpal (CMC) joint of thumbAugust 2022 7:52amUnknownActive Arthritis of carpometacarpal (CMC) joint of right thumbOctober 2023 2:54pm UnknownActiveConstipationJune 2024 1:20pmUnknownActiveContact dermatitis November 22, 2023 12:02pmUnknownActiveInactive/Resolved Problems Problem Diagnosis/Recorded Date Onset Date Status C omments Right thigh pain June 07, 2023 3:39pm Unknown Res olved Postoperative pain [...] 0March 2023 3:35pmMay 2023 1:14pmClonazepam 0.5 mg tablet Discontinued0.5MGPODaily at bedtime as needed for Restless Leg(S)42953Oeyytlrh 2023 4:48pmNovember 2024 4:43pmRestless legs syndrome Restless legs syndromeHydrocodone-Homatropine (Hycodan) 5-1.5 mg/5 mL (5 mL) gjdkiJthvseilgfva6AGIZUTZDC 4-6 HOURS as needed for atxdc62926Jtaapggy 2024June 2024 1:35pmInfluenza due to influenza virus, type A, human Azithromycin (Zithromax) 250 mg geuyruOkagsydahrfc9CK.ISBPQDP76Gtkflfzk 2024 12:00amMarch 2024 2:29pmFor 250 mg dose pack: take 500 mg today (day 1), then 250 mg for 4 days (days 2-5) POMethylprednisolone 4 mg tablets,dose kmxzGfsehbwalbok7SKwmj package libtonoech902Uesesqbn 2024 12:00amMarch 2024 2:29pmPO PER PKG DIRAzithromycin (Zithromax) 250 mg tabletDiscontinued 0PO.EIZORRA95Kkzcd 2024 2:28pmJune 2024 1:32pmFor 250 mg dose pack: take 500 mg today (day 1), then 250 mg for 4 days (days 2-5) PO Methylprednisolone 4 mg tablets,dose vsjuTqzejjuepbet3SSlsq package sveyyvohid09 2024 2:29pmJune 2024 1:35pmPO PER PKG DIRAlbuterol Sulfate 2.5 mg /3 mL (0.083 %) solution for nebulizationDiscontinued2.5MGINHALATIONThree times cngqr261Xbqof 2024 11:17amApril 2024 2:01pmAlbuterol Sulfate 90 mcg/actuation HFA aerosol bdqlxqhEqenii9ATDZBKPXFIOTJLbdhj 6 hours as needed for shortness of breath or wheezing8.52April 2024 11:00pmUnknownPregabalin (Lyrica) 100 mg dfcpivzRktwirvzunme938HFYWOmamn times allfa189128Cqcto 2024 5:23amApril 2024 9:55amRestless legs syndrome Restless legs syndromePregabalin (Lyrica) 100 mg rupecuwYdmjdboagybn630MARHMeoit times vxyww405872Jtggl 2024 9:55amApril 2024 10:01amRestless legs syndrome Restless legs syndromePregabalin (Lyrica) 150 mg eqzqgneVoefxdcpssze588KVPLAuchy times dqrbr484081Tpxvb 2024 11:00pmOctober 2024 7:39amRestless legs syndrome Restless legs syndromeDuloxetine (Cymbalta) 30 mg capsule,delayed release(DR/EC) Feldfokruouq05AZOHAblgf413Cep 2024 11:00pmJuly 2024 3:45pmNeuropathy Polyneuropathy, unspecifiedTobramycin 0.3 % nnxrtFxtfncdjrczs7KKXWHZFF-QFWLP Every 4 otjmy888Wav 2024 11:00pmJune 2024 1:35pmCephalexin 500 mg oighemcPdyvraqarhmu942EVQGTrkrt xzsfk492MxuAugust 27, 2024 11:00pmJune 2024 1:32pmDuloxetine 30 mg capsule,delayed release(DR/EC)Sczvzo37WSTJPusbr328Pgiq 2024 3:45pmNeuropathy Polyneuropathy, unspecifiedUnknownCitalopram (Celexa) 20 mg redfniZrtowltfqpjy59 QOFTNvwqd796Abcmef 2024 9:08amSeptember 2024 10:05amPregabalin (Lyrica) 150 mg llbtgqaOkpssffmfpvq305HLUCEgthf times pfbka339525Qxjkabm 2024 7:39amOctober 2024 12:17pmRestless legs syndrome Restless legs syndromePregabalin (Lyrica) 150 mg qqsjdfnJgoasq575MLWLGsefz times zksjf214748Ctxcymp 2024 12:17pmRestless legs syndrome Restless legs syndromeUnknownClonazepam 0.5 mg tabletDiscontinued0.5MGPODaily at bedtime as needed for Restless Leg(S)09951Pvjjpuau 2024 4:43pmNovember 2024 4:47pmRestless legs syndrome Restless legs syndromeClonazepam 0.5 mg tabletActive0.5MGPODaily at bedtime as needed for Restless Leg(S)65161Besdtpzm 2024 4:46pmRestless legs syndrome Restless legs syndromerx verbally called into pharmacy 03/05/25 per Odilon Metformin 500 mg OadvbrZyicawaehkaa1QHDXVAyzpk dailyAugust 2017 11:00pmJuly 2022 7:30amAlbuterol Sulfate 2.5 mg /3 mL (0.083 %) Solution For SrbkcwjhfiahLiqxgxqheawm5ODAQHJOLLHTHTEZywdy times daily as needed for Shortness Of BreathAugust 2017 11:00pmMay 2018 12:33pmCetirizine (Zyrtec) 10 mg HwflgzDdtphujevmad8GGMSEZezfeObrhdp 2017 11:00pmApril 2021 6:16am Calcium Carbonate-Vitamin D3 (Calcium 600 + D(3)) 600 mg(1,500mg) -200 unit SxlogpDegcyd6CGGEQTwwicFcfbkf 2017 11:00pmUnknownCitalopram (Celexa) 20 mg OzumszBjafqwepsebv70KHUJDKslqqQdxseu 2017 11:00pmMarch 2023 2:09pm Amitriptyline 10 mg VkbosqHtjqoekopgqo4CJUGLYqrsy at bedtimeAugust 2017 11:00pmFebruary 2021 4:24pmGabapentin 300 mg IgzajwjBoballojmgaj0LHSDJ Daily at bedtimeAugust 2017 11:00pmFebruary 2023 10:51amPravastatin (Pravachol) 20 mg JojzwcExijqwhtzgon7JOTJIGhvzqFsawyi 2017 11:00pmFebruary 2023 10:51amErgocalciferol (Vitamin D2) (Vitamin D2) 50,000 unit Capsule Zwpgitifimux4JHMVRhwikn weekrust2017 11:00pmMarch 2023 2:03pmOn FridaysMethylprednisolone 4 mg tablets,dose pepxWbgqjkzhxvfz4PLIFTPt Directed November 10, 2017 11:00pmFebruary 2018 2:58pmAlbuterol Sulfate (Proventil Hfa) 90 mcg/actuation Hfa Aerosol QhkiloqInrciewdpsad8PYQQPSBTESCCNHO8V as needed for Shortness Of Breathgust 2017 11:00pmMay 2018 12:33pm Fluticasone Propionate (Flonase Allergy Relief) 50 mcg/actuation [place],SuspensionActive1 - 2SPRAYINTRANASALDaily at bedtimeNeihart 2017 11:19uoYivnphrYj-Voqqbvq-Ieo-Iron Fm-Fa-Vitk (Multi For Her) 18 mg iron-600 mcg- 80 mcg UdsfnpHqlyaw6UNLAPSspvqIkpcpk 2nd, 2018 11:00pmUnknownEmpagliflozin (Jardiance) 10 mg HphbrvRfnpjrvfurxt7SOYRSRcjmsKkeghm 2017 11:00pmFebruary 2018 2:58pmGabapentin 300 mg okafskqRgcbpywdabmo257UYMASszug at bedtime June 07, 2023 10:50amMarch 2023 2:09pmGabapentin 300 mg capsule Rkxnugsmsboq737AFRCEqemp at bedtimeMet[facility] 2023 2:07pmMay 2023 1:17pm Citalopram (Celexa) 20 mg ljphrkQukobfxvgibh34KAQWMaeuyVzpox 2023 2:07pm October 03, 2023 10:11amGabapentin 300 mg bacpykdXcfkkaexooru069TFQVPv Directed August 31, 2023 1:15pmSeptember 2023 10:44am1 am, 1 in the evening and 3 at bedtimeGlyburide 5 mg DnkasbJcgnvxlfouuv4RJPKUUddyxGbbgmqnp 2018 12:00am August 28, 2018 12:35pmSemaglutide (Ozempic) 0.25 mg or 0.5 mg(2 mg/1.5 mL) pen injectorDiscontinued0.25MLSUBCUTAs DirectedBloomington 2018 11:00pmFebruary 2021 4:23pmWeekly on SaturdaysHydrocodone-Acetaminophen 5-325 mg Tablet Ozeshulemhxi3SKWIEZ1K as needed for Xeij442Gxtshxoj pril 2021 6:16amAbdominal pain Unspecified abdominal painAmoxicillin-Pot Clavulanate 875-125 mg tablet Dfujpuphmhfg3PDEOJJppka joavp952Xcifd 2023 12:00amMarch 2023 3:36pm Hydrocodone-Acetaminophen 5-325 mg anxtczKrhtvcsphpnv4QDUOADwrpo 6 hours as needed for inlv2281Gnaft 2023March 2023 2:13pmDog bite Bitten by dog, initial encounterAmoxicillin-Pot Clavulanate (Augmentin) 875-125 mg raqnfnRzladrftbzjc6NKYRDMxbso meiyh008Kmeucocn 2020 12:00amFebruary 2021 11:30amOndansetron Hcl (Zofran) 4 mg jotgjhGgcwerxfkcjd4NNPHtiybl 6 to 8 hours as needed for nausea and vrjddbhx475Ecpginsp 8th, 2021 12:00am June 04, 2021 4:25pmHydrocodone-Acetaminophen 5-325 mg tabletDiscontinued1 TABPOEVERY 4-6 HOURS as needed for lujw177Rwztputz 8th, 2021February 2021 4:25pmDiverticulitisSemaglutide (Ozempic) 1 mg/dose (4 mg/3 mL) Pen Injector Discontinued0.5MGSUBCUTevery weekbruary 2021 12:00amMarch 2023 2:02pmmondayEsomeprazole Magnesium (Nexium) 40 mg Capsule,Delayed Release(Dr/Ec) Pilplcfftlnu96VRTMGyulpFgokjkkj 2021 12:00amMarch 2023 2:02pm Hydrocodone-Acetaminophen 5-325 mg trdulhYalmcmwuwasx7VLAXQWhetr daily as needed for eqxy2858Ouglhmbz pril 2021 6:16amRenal colic Unspecified renal colicOndansetron Hcl 4 mg bfkrxfBpcttlhygtob9BTWKHjryx daily as needed for nausea and aararqkl2690Evhtjclh 2021 12:00amApril 2021 6:16amLoratadine (Claritin) 10 mg NcbzkyFacjkxlembvb93RTLPRzekkUenvw 2021 11:00pmJune 2023 9:25amClonazepam 0.5 mg tabletDiscontinued0.5MGPODaily at bedtime as needed for Restless Leg(S)November 04, 2022 11:00pmMay 2023 1:47pmFludrocortisone 0.1 mg tabletDiscontinued0.1MGPOEvery morningJuly 2022 11:00pmNovember 2023 1:44pmHydrocodone-Acetaminophen 5-325 mg tablet Discontinued1 - 2TABPOEVERY 4-6 HOURS as needed for hfpl5638Ljbygm 2022June 07, 2023 10:51amPostoperative pain of extremity Arthritis of carpometacarpal (CMC) joint of thumb Carpal tunnel syndrome Other acute postprocedural pain Pain in unspecified limb Carpal tunnel syndrome, unspecified upper limbDoxycycline Hyclate 100 mg tablet Rdezdhptbktb502FXSHUwpko eziav4815Qmhyqh 2022 11:00pmFebruary 2023 10:50amFludrocortisone 0.1 mg tabletActive0.2MGPOEvery morningNovember 2023 1:42pmUnknownMethylprednisolone (Medrol (Ian)) 4 mg tablets,dose pack Nhrhbdxxrooe7WIqzp package hjpxuunayu7079Kdccw 2023 11:00pmMay 2023 1:15pmPO PER PKG DIRClonazepam 0.5 mg tabletDiscontinued0.5MGPODaily at bedtime as needed for Restless Leg(S)2023 1:46pmNovember 2023 4:48pm Restless legs syndrome Restless legs syndromeCetirizine (Zyrtec) 10 mg abjkqnkLmrbuuleqkor58CRYRKeckw as neededJune 2023 11:00pmSeptember 2024 9:20amPrednisolone Acetate 1 % drops,suspensionDiscontinuedDROPSOPHTHALMICJune 2023 11:00pmNovember 2023 1:41pmCitalopram (Celexa) 20 mg sojezhAbfiaaotankp22RDFIUggtt375Umpg 2023 10:07amNovember 2023 2:38pmAzithromycin (Zithromax) 250 mg fhxxfuRygvgrccrdyx4WP.CAVHUAC38Sfbn 2023 11:00pmSeptember 2023 10:33amFor 250 mg dose pack: take 500 mg today (day 1), then 250 mg for 4 days (days 2-5) POCetirizine (Zyrtec) 10 mg pyaijpdWytaby72ASNIPfmekPkqagkwdf 2024 9:17amUnknownPregabalin (Lyrica) 100 mg fvygdtvPmojwcncjudz973HYPFVnvno times dailyFebruary 2024 12:00amApril 2024 5:24amTirzepatide (Mounjaro) 5 mg/0.5 mL pen cooayvegIkxjfvjfiola2LXCOGYOGoadpx weekFebruary 2024 12:00amJune 2024 1:36pmTirzepatide (Mounjaro) 10 mg/0.5 mL pen dgfxsljpRtfpcyxwnpua35VMEGHHGFgpmkw weekJune 2024 11:00pmOctober 2024 9:42amDocusate Sodium (Dulcolax Stool Softener (Dss)) 100 mg capsuleDiscontinued 100MGPODailyJune 2024 11:00pmJune 2024 1:54pmDocusate Sodium (Dulcolax Stool Softener (Dss)) 100 mg wrjqbusKpogbn083PXBWBrxszElvj 2024 1:53pm UnknownPlecanatide (Trulance) 3 mg jwpouqXqesdvzkaazz7VRTWTlwqx34Galh 2024 11:00pmSeptember 2024 9:19amsample providedTobramycin 0.3 % drops Wzhcukznkjge1NPGZSGLG-GBJWJApqde 4 ylczd404Cxxh 2024 2:02pmSeptember 2024 9:19amClotrimazole-Betamethasone 1-0.05 % pjxztPuqqxzninotp6JTCERXGZRJECP Twice daily as neededSe2024 9:18amOctober 2024 9:41am Citalopram (Celexa) 20 mg fnipcnAzthaq91KKNLOqorp304Qvuvmtvoz 9th, 2025 10:05am UnknownLinaclotide (Linzess) 72 mcg bgpkztkCjssok99AYYFCFdxhf94Kvjwdcacy 8th, 2025 11:00pmconstipationSamples of 72 mg and 145 mg provided. #4 of each.Unknown Cefdinir 300 mg dtkhnhlKnebfs734VKDGDuegr gxoqd507XxpzytllMarch 18, 2025 12:00am Acute asthmatic bronchitis Unspecified asthma, uncomplicatedUnknownHydrocodone-Homatropine 5-1.5 mg/5 mL (5 mL) ibevkhztTdnemi5QACNUJGRR 4-6 HOURS as needed for gbmqc75316Ajfcnlcv 8th, 2025Acute asthmatic bronchitis Unspecified asthma, uncomplicatedUnknownAlbuterol Sulfate 2.5 mg /3 mL (0.083 %) solution for nebulizationActive2.5MGINHALATIONThree times yzjht782Jnowuhaa 8th, 2025 10:28amAcute asthmatic bronchitis Unspecified asthma, uncomplicatedUnknownMethylprednisolone 4 mg tablets,dose fltsAmrkfq7WZpai package dhjfcajcib642Xihuqfbw 2024 10:29amPO PER PKG DIR UnknownRosuvastatin 5 mg rcppiyZcnrerfkigjd6BGVSMwxndlmc 2023 12:00am February 22, 2024 1:39pmSemaglutide (Ozempic) 0.25 mg or 0.5 mg (2 mg/3 mL) pen injectorDiscontinuedMGSUBCUTMarch 2023 11:00pmMay 2023 1:17pm Esomeprazole Magnesium 20 mg capsule,delayed release(DR/EC)Okifdshwudyb99IJDH DailyMarch 2023 11:00pmFebruary 2024 12:41pmCholecalciferol (Vitamin D3) 1,250 mcg (50,000 unit) tojcmgiHplcywcgaacj7683LTHPCtpysl weekMarch 2023 11:00pmOctober 2024 9:40amLidocaine (Lidoderm) 5 % adhesive patch,warwrxfdgOybecxhpglfi1MAAVCTBNJAOYFhfrtBqjyd 2023 11:00pmMay 2023 1:15pmleave on most painful area for up to 12 hrsAlbuterol Sulfate 2.5 mg /3 mL (0.083 %) solution for nebulizationDiscontinuedMGINHALATIONMar 2023 11:00pmApril 2024 11:18amFreeTextSi ml prefilled vial Inhalation Three times a day prn; Note: Source Status: Taking; Provider: Carlin Doss Nebulizers miscActive0.RouteMet[facility] 2023 11:00pmAs directedHydrocodone- Acetaminophen 5-325 mg iljujzNnycuxompwgg4CXEJEEbkro 6 hours as needed for pain 76852Uemdn 2023May 2023 1:15pmDog bite Bitten by dog, initial encounterSemaglutide (Ozempic) 0.25 mg or 0.5 mg (2 mg/3 mL) pen lqazdakdMkpcacubqizt9WZLEVTZNNkn 2023 1:14pmSeptember 2023 10:33amClotrimazole-Betamethasone 1-0.05 % spkvtPlauefpxupna1HCISXDKZDMESQDqwhb wdhiy448Hzxmlw 2023 11:00pmSeptember 2024 9:20amMethylprednisolone 4 mg tablets,dose paruErcetjxzjwwr4DTkwk package pxvegbkanq852Qiwvod 2023 11:00pmSeptember 2023 10:33amPO PER PKG DIRPravastatin 10 mg tabletActive 10MGPONovember 2023 12:00amUnknownGabapentin 300 mg urzjfbdBqtwpshxxmng9VE As DirectedNovember 2023 1:42pmFebruary 2024 12:41pm1 qam, 1 @ noon, 3 qhs orally as directed; 1 am, 1 in the evening and 3 at bedtimeCitalopram (Celexa) 20 mg pgkedoPivotzvzpqxo56JIZNLwqdl379Mpqznufa 13th, 2024 2:38pmAugust 2024 9:08amSemaglutide (Ozempic) 1 mg/dose (4 mg/3 mL) pen injector DiscontinuedMGSUBCUTSept2023 11:00pmFebruary 2024 12:43pm Methylprednisolone (Medrol (Ian)) 4 mg tablets,dose cqamHwqydarhmdwv9NTyfz package honxriarmz914Xitfuqnnx 11th, 2024 11:00pmOctober 2023 2:44pmPO PER PKG DIRAzithromycin (Zithromax Z-Ian) 250 mg ewpbkeBsyqondmsjzn8VJ.MRLZBKE92 December 21, 2023 11:00pmOctober 2023 2:44pmFor 250 mg dose pack: take 500 mg today (day 1), then 250 mg for 4 days (days 2-5) POGabapentin 300 mg valiesqSshlkjoejwod610GJESOe Ddpimrsi6805Wlhagqaia 12th, 2024 10:42amNoveer 2023 1:44pm1 am, 1 in the evening and 3 at bedtimeMethylprednisolone (Medrol (Ian)) 4 mg tablets,dose zyblDwymdkplglsb9JZytf package ezcxpklqqc658 March 01, 2024 12:00amFebruary 2024 12:43pmPO PER PKG DIRAzithromycin (Zithromax Z-Ian) 250 mg xlcgonKjddkhtcnyuj1OZ.AKGMSJD68EfusughbMarch 01, 2024 12:00amFebruary 2024 12:40pmFor 250 mg dose pack: take 500 mg today (day 1), then 250 mg for 4 days (days 2-5) POOseltamivir (Tamiflu) 75 mg capsule Tkjqpqdjbuhc07ARLHPdpmo pxjqk4125Jgynhdec 2024 12:00amJune 2024 1:35pmHydrocodone-Homatropine (Hycodan) 5-1.5 mg/5 mL (5 mL) syrupDiscontinued5 MLPOEVERY 4-6 HOURS as needed for wgqjs95111Zafbhwqu 2024February 2024 10:04amInfluenza due to influenza virus, type A, humanCholecalciferol (Vitamin D3) 125 mcg (5,000 unit) iupedklXxtjnn641HBBAVYzczxCdpgthx 2024 11:00pmUnknownTirzepatide (Mounjaro) 7.5 mg/0.5 mL pen injectorActive7.5MGSUBCUT every weekOctkosair [facility]'s hospital 2024 11:00pmUnknown Immunizations Immunization Event Date Not Given Reason Dose Number Environmental Program Manager Lot Number Reason(s) Given Vaccine Information Statement (VIS) Detail Administration Location COVID-19 mRNA, Comirnaty (Kickplay) May 18, 2020 COVID-19 mRNA, Comirnaty (Kickplay)June 10OVID19 mRNA, Comirnaty (Kickplay)February 05OVID mRNA, Comirnaty (Kickplay)2020 COVID-19 mRNA, Comirnaty (Kickplay)January 24OVID mRNA, Comirnaty (Kickplay)March 08OVI mRNA Bivalent Booster (Kickplay)June 25OVID (EnviroGene) 12Y and olderSeptember 2023Fluzone TIV High-Dose 65YR+March 30, 2014Fluzone TIV High-Dose 65YR+December 30, 2023Fluzone QIV High-Dose 65YR+December 08, 2020Fluzone QIV High-Dose 65YR+ March 15, 2022Fluzone QIV High-Dose 65YR+April 12, 2023Influenza, trivalentAugust 2017Influenza, trivalentOctober 2018influenza, unspecified formulationDecember 2013Pneumococcal Conjugate Vaccine, 13 valentAugust 2019Pneumococcal Polysacc. Vaccine, 23 valentDecember 2021Quadrivalent InfluenzaDecember 2015Quadrivalent InfluenzaAugust 2019Zoster Vaccine Recombinant, AdjuvantedJune 2020Zoster Vaccine Recombinant, AdjuvantedAugust 2020Tetanus, Diphtheria, Pertussis (Tdap) June [id number] Clinic Avon Hospital CtrTrivalent Influenza Vaccine December 01, 2017Trivalent Influenza VaccineOctober 2018Trivalent Influenza VaccineAugust 2019Trivalent Influenza VaccineDecemb2021 Shingles (Zoster)July 17, 2012 Medical Equipment Device Date Implanted Device Details Orthopaedic bone staple, non-adjustable, sterile November 15, 2022 VALARIE: [id number] Orthopaedic bone staple, non-adjustable, sterile November 15, 2022 VALARIE: [id number] Orthopaedic bone screw, non-bioabsorbable, non-sterile November 15, 2022 VALARIE: [id number] Procedures Procedure Date Performed Status XR chest 2V* March 18, 2025 11:03am compl eted RSV (POC) March 18, 2025 completed Relevant Diagnostic Tests and/or Laboratory Data Laboratory Results Test Collection Date/Time Result Date/Time Result Interpretation Reference Range Result Comment Performing Site POC SARS CoV-2 Antigen March 18, 2025 10:01a m March 18, 2025 10:12am Negative Influenza Type A (Rapid)March 18, 2025 10:01amDece2024 10:12am NegativeInfluenza Type B (Rapid)March 18, 2025 10:01amDe2024 10:12amNegativeCorrected White Blood CountDe2024 10:31amDece2024 2:26pm7.7 10*3/uL3.8-11.6FC[facility] [id number] [address] [facility] [address]Chddwutdepx WBC CountMarch 18, 2025 10:31amDece2024 2:26pm7.7 10*3/uL3.8-11.6FC[facility] [id number] [address] [facility] [address]Qmz Blood CountDecember 2024 10:31amDecember 2024 2:26pm4.50 10*6/uL3.60-5.00[facility] [id number] [address] [facility] 31808NmnhvajvyqMlcxklla 2024 10:31amDecember 2024 2:26pm 13.9 g/dL11.8-15.4FC[facility] [id number] [address] [place] [address] 95878IqccuoevweTftulycg 2024 10:31amDecember 2024 2:26pm 41.5 %34.0-46.4FC[facility] [id number] [address] [place] [address] 85553Soft Corpuscular VolumeDecember 2024 10:31amDecember 2024 2:26pm92.2 aR57-060UnrdgjpswKettering [facility] [id number] [address] [place] [address] 22113Aiqy Corpuscular HemoglobinDecember 2024 10:31amDecember 2024 2:26pm31.0 pg24.7-34.3FC[facility] [id number] [address] [place] [address] 32818Jokw Corpuscular Hemoglobin ConcentDecember 2024 10:31am March 18, 2025 2:26pm33.6 g/dL32.0-35.0[facility] [id number] [address] [place] [address] 04350Nwn Cell Distribution WidthDecember 2024 10:31amDecember 2024 2:26pm14.0 %11.9-15.3[facility] [id number] [address] [place] [address] 56966Rtnxtlft CountDecember 2024 10:31amDecember 2024 2:64ih221 10*3/zD091-593YgmgxsykgK[facility] [id number] [address] [place] [address] 48460Gmgm Platelet VolumeDecember 2024 10:312024 2:26pm9.8 fL6.3-10.7[facility] [id number] [address] [facility] [address]98[address]Comypmtrnsw (%) (Auto)March 18, 2025 10:312024 2:26pm64.1 %.[facility] [id number] [address] [facility] [id number] (%) (Auto)March 18, 2025 10:312024 2:26pm21.0 %.[facility] [id number] [address] [facility] 59157Etiyptyce (%) (Auto)March 18, 2025 10:312024 2:26pm9.6 %.[facility] [id number] [address] [facility] 50262Pidepljdwej (%) (Auto)March 18, 2025 10:312024 2:26pm4.4 %.[facility] [id number] [address] [facility] 14357Ykwbqxtkg (%) (Auto)March 18, 2025 10:312024 2:26pm0.9 %.[facility] [id number] [address] [facility] 36581Dfqgeynvm RBC Relative Count (auto)March 18, 2025 10:31am March 18, 2025 2:26pm0.1 /100{WBC}0-0.5[facility] [facility] [id number] [address] [facility] [address]Sgritwpbvre # (Auto)March 18, 2025 10:312024 2:26pm5.0 10*3/uL1.8-7.7[facility] [id number] [address] [facility] 62276Qkzhzqzjjnc # (Auto)March 18, 2025 10:312024 2:26pm1.6 10*3/uL1.00-4.8[facility] [id number] [address] [facility] 64885Zzshhtbyh # (Auto)March 18, 2025 10:312024 2:26pm0.7 10*3/uL0.0-0.8[facility] [id number] [address] [facility] 16428Tbgboogwsiu # (Auto)March 18, 2025 10:312024 2:26pm0.3 10*3/uL0.0-0.45[facility] [id number] [address] [place] [id number] # (Auto)March 18, 2025 10:312024 2:26pm0.1 10*3/uL0.0-0.2[facility] [id number] [address] [facility] [address]Cfhfarr LevelMarch 18, 2025 10:312024 2:36ri487 mg/dLAbove high vjiypj78-597AXE recommended reference rangeRandom Glucose Reference Range is dependent on time and content of last meal. Glucose of more than 200 mg/dL in a nonstressed, ambulatory subject supports the diagnosisof Diabetes Mellitus.[facility] [id number] [address] [facility] 38303Lmwml Urea NitrogenMarch 18, 2025 10:312024 2:55pm15 mg/dL7-25[facility] [id number] [address] [facility] 85684WigtdzfwwtHrtyegfz 8th, 2025 10:312024 2:55pm 1.16 mg/dL0.60-1.20[facility] [id number] [address] [facility] 33930Qitjxfspb GFR (CKD-EPI)March 18, 2025 10:312024 2:55pm48.558 mL/MinKettering Health [facility] Ctr [id number] [address] [facility] 453[address]Tblmbi LevelDe2024 10:31amDecember 2024 2:55pm 143 mmol/Z085-320SjonmuzxpKettering Health [facility] Ctr [id number] [address] [facility] [address]Fydultxvm LevelDecember 2024 10:31amDecember 2024 2:55pm4.5 mmol/L3.5-5.1[facility] [id number] [address] [facility] 29198Usqfesmv LevelDecember 2024 10:31amDecember 2024 2:21ir602 mmol/F24-613ErbaumcodK[facility] Health [facility] [id number] [address] [facility] 969[address]Hhmdmz Dioxide LevelDecember 2024 10:31amDecember 2024 2:55pm30.8 mmol/L21.0-31.0[facility] [id number] [address] [facility] 28967Uvcio GapDecember 2024 10:31amDecember 2024 2:55pm 11.7 mEq/L6.0-15.0[facility] [id number] [address] [facility] 48266Zqatyua LevelDeceer 2024 10:31amDecember 2024 2:55pm9.4 mg/dL8.6-10.3[facility] [id number] [address] [facility] [address]Quely ProteinDecember 2024 10:31amDecember 2024 2:55pm6.9 g/dL6.4-8.9[facility] [id number] [address] [facility] 535[address]OcemqbpQksaopin 2024 10:31amDecember 2024 2:55pm4.3 g/dL3.5-5.7[facility] [id number] [address] [facility] 31734GqpcesehVoywrrdw 2024 10:31amDecember 2024 2:55pm2.6 g/dLKettering Health [facility] Ctr [id number] [address] [place] [address] 58515Mcpomma/Globulin RatioDece2024 10:31amMarch 18, 2025 2:55pm1.7[facility] [id number] [address] [place] [address] 28407Oclcq BilirubinDece2024 10:31amMarch 18, 2025 2:55pm0.4 mg/dL0.3-1.0[facility] [id number] [address] [place] [address] 01883Azhxngzfy Amino Transf (AST/SGOT)March 18, 2025 10:31am March 18, 2025 2:55pm20 U/G92-61DdxndcdqsKettering Health [facility] [id number] [address] [place] [address] 54265Nisqvly Aminotransferase (ALT/SGPT)March 18, 2025 10:31am March 18, 2025 2:55pm19 U/L7-52[facility] [id number] [address] [place] [address] 46571Unaxobqo PhosphataseMarch 18, 2025 10:31amMarch 18, 2025 2:55pm99 U/C74-159TbiywmqdeKettering Health [facility] Ctr [id number] [address] [place] [address] 75414Gyohlzrk Creatinine Clearance (ChemDe2024 10:31am March 18, 2025 2:55pmN/[facility] [id number] [address] [place] [address]92 Microbiology Results Procedure Source Result Collection Date/Time Result Date/Time Result Comment Performing Site RSV (POC) Nasopharyngeal March 18, 2025 10:01amMarch 18, 2025 10:13am Diagnostic Imaging Reports Author Meliton Herrera CentervilleReport Date/TimeDece2024 5:04pm [facility] Main [place] [address] [place] [address] XRay Report Signed Patient: Phoebe Douglas MR#: [id number] : 1945 Acct:[id number] Age/Sex: 79 / F ADM Date: 5 Loc: XDS Room: Type: [facility] CLI Attending Dr: Mike Gillis DO Copies to: Mike Gillis DO~ Ordering Provider: Mike Gillis DO Date of Service: 03/18/25 XR/XR chest 2V*: J45.909 - Unspecified asthma, uncomplicated Plain film chest 2 view HISTORY: Cough and congestion COMPARISON: 06/12/2024 FINDINGS: SUPPORT DEVICES: None POSTSURGICAL CHANGES: None HEART: Within normal limits PULMONARY LOI: Within normal limits MEDIASTINUM: Unremarkable LUNGS AND PLEURA: No acute lung process, pleural effusion or pneumothorax identified. BONY STRUCTURES: Intact ADDITIONAL FINDINGS None XR/XR chest 2V* IMPRESSION: No acute process. Impression dictated by: Meliton Herrera M.D. 03/18/2025 5:04 PM Dictation Location: [facility]16 Transcribed By: [facility] 03/18/251703 Dictated By: Meliton Herrera DO 03/18/251703 Signed By: <Electronically signed by Meliton Herrrea DO in OV> 03/18/25 170 Vital Signs Vital Reading Result Reference Range Collection Date/Time Height 66.5 [in_i] January 28, 2025 9:48bjLeqcwv28.40 kgOct2024 9:33amHeart Rate79 /sel41-878QhhissxJanuary 28, 2025 9:33amRespiratory rate16 /vba49-50MpfdaguJanuary 28, 2025 9:33amOxygen saturation by Pulse oeqhgaka48 %95-100January 28, 2025 9:33amBP Putazmhd908 mm[Hg]100-140January 28, 2025 9:33amBP Bfjebuzfv50 mm[Hg] 60-100Oct2024 9:33amBMI (Body Mass Index)29.5 kg/o2Uzxtdvj2024 9:99jeQdphce86 [in_i]February 21, 2025 7:48ouSpyqse18.18 kgNov2024 7:52amHeart Rate78 /scu47-075AksvcxcqFebruary 21, 2025 7:52amRespiratory rate16 /rbt25-10PrtpyaxrFebruary 21, 2025 7:52amOxygen saturation by Pulse wbtjuwgf40 %95-100 February 21, 2025 7:52amBP Wupjlbsi868 mm[Hg]100-140February 21, 2025 7:52am BP Xidssgkvz50 mm[Hg]60-100February 21, 2025 7:52amBMI (Body Mass Index)28.8 kg/y1QvcfmlgiFebruary 21, 2025 7:37eqIyzyuy69 [in_i]March 18, 2025 10:11amWeight 85.72 kgDece2024 10:02amBody Rloqdriyjtk47.2 [degF]97.6-99.0ce2024 10:02amHeart Rate88 /yce24-994Cigeivvt 8th, 2025 10:02amRespiratory rate18 /xwq39-96VrwhqeesMarch 18, 2025 10:02amOxygen saturation by Pulse culwjzls06 %95-100March 18, 2025 10:02amBP Yiorxutg318 mm[Hg]100-140Dece2024 10:02amBP Rqlgkgiwz30 mm[Hg]60-100Decemb2024 10:02amBMI (Body Mass Index)28.7 kg/e8Xqptxmvu2024 10:02am Advance Directives Advance Directive Response Recorded Date/ Time Advance Directives No November 22, 2023 7:55am Insurance Providers Guarantor Phoebe Douglas Address [address] [place] [address]Luvejkm Info.Home Phone: Payer Group Member ID Coverage Type Subscriber Relationship to Subscriber Effective Date Expiration Date Medicare [id number] K Braun Id: [id number] [address] [place] [address] Home Phone: Email: [email or web address] [place] Id: Plan [id number] K Braun Id: [id number] [address] [place] [address] Home Phone: Email: [email or web address] [facility] [id number] K Braun Id: [id number] [address] [place] [address] Home Phone: Email: [email or web address] Encounter Location(s) Arrival/Admit Date Discharge/Departure Date Discharge/Departure Disposition Provider(s) Departed Physician/ Provider Office Visit -[facility] January 28, 2025 9:53am January 28, 2025 11:43am Discharged to home care or self care (routine discharge) Antony Ellis MD Departed Physician/ Provider Office Visit -[facility] February 21, 2025 7:42am February 21, 2025 8:30am Discharged to home care or self care (routine discharge) Mike Gillis DO Departed Physician/ Provider Office Visit -[facility] March 18, 2025 9:23am March 18, 2025 10:29am Discharged to home care or self care (routine discharge) Mike Gillis DO Departed Clinical -[facility] March 18, 2025 10:31am March 18, 2025 10:32am Discharged to home care or self care (routine discharge) Mike Gillis DO Departed Clinical -X-Ray [facility] March 18, 2025 10:58am March 18, 2025 10:59am Discharged to home care or self care (routine discharge) Mike Gillis DO Recent Diagnosis Onset Date Admit Date Abnormal weight gain Unknown January 9:53am Anxiety [...] Osteoarthritis of knee Unknown January 102024 9:53am Type 2 diabetes mellitus with complications Unkn own February 21, 2025 7:42am Acute asthmatic bronchitis Unknown Decem 2024 9:23am Assessments Author Carmen Arroyo CentervilleAuthoredDecember 2024 10:07amSooner if needed, the ER if concerns,The above note written by Carmen Arroyo LPN acting as human recorder, note dictated by Dr. Mike Gillis Author Antony Ellis CentervilleAuthoredOctober 2024 4:55pmAssessment: Highest weight: 191.0 lbs Start weight: [...] diet. She will start working with our greenhouse assistant for her type 2 diabetes as she will not be able to see them for her weight as her BMI is currently less than 30. She needs a bioimpedance scan as she most likely has decreased muscle mass with not exercising and not getting enough lean protein in her diet. She was sent here by her PCP and she sees an retail general manager at the [facility] who treats her type 2 diabetes. She notes despite being up to Mounjaro 10 mg she was not able to lose weight. She was having some worsening constipation so the dose was cut back by her retail general manager to 7.5 mg. Her last A1c was [...] 4. Type 2 diabetes with neuropathy and FTA-hihtt-wvxz treatment with lifestyle changes, decrease simple sweets and starches, increase exercise and weight loss. Continue Mounjaro. 5. Fatty liver-treat with healthy diet and weight loss. 6. 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 Weight loss may be helpful along with correct exercises. 7. Knee arthritis-status post left knee replacement. Treat with weight loss and proper exercise. Recommended seek evaluation by physical therapy from her specialist for her back and knees exercises. 8. Depression-her mood seems good on citalopram. She was forced into fdc which was stressful and she has not [...] 11. Increase TSH-she follows up with an retail general manager and is felt to be subclinical at [...] Up-to-date. Continue regular blood work with her retail general manager at [facility] and PCP Dr. Jolley. The patient was [...] Our exercise program was recommended with our it systems manager/obesity exercise group. Handout given. Our free weekly [...] and benefits of prescribed meds discussed. Initial kbdj-kb-xenj interview/evaluation. The patient was counseled in detail on the options for weight loss in an individual setting. 77 minutes was spent caring for the patient, counseling/educating patient on the options for the treatment of obesity and related healthcare issues. The program's treatment goals were reviewed with the patient. Each aspect of the program was discussed with the patient. Plan of Treatment Author Carmen Arroyo CentervilleDoraAri 2024 10:32amIn house rapid covid, flu, and rsv testing today is negative. Her cough is deep and consistent with a bronchitis therefore encouraged she use the albuterol nebulizer solution and will provide an rx for both Cefdinir and Medrol dp as well as some Hycodan cough syrup. Due to her being diabetic, I would also like her to get a CBC, CMP, and CXR done today to rule out any significant abnormalities, patient is in agreement. Orders provided. Author Slime Tillman CentervilleDoraSarah 2024 9:14amPatient presented to the office today for DM shoe exam. Patient continues to follow with her cooker chip Dr. Agustin Bentley but he told her at her last office visit that he no longer does the exams for her shoes and that she would need to have this done through her PCP. Last A1c resulted at 6.2 on 11/28/24. Weight management recently decreased her mounjaro from 10 mg to 7.5 mg since patient was experiencing constipation and reports that she still is while doing the 7.5 mg dosage. Patient is doing PT and her right foot is taped to help stabilize her foot since she does experience pain and discomfort on the outer side of her feet bilaterally. Patient has also had an EMG done in the past. She does continue to use aquaphor on her heels to help with her calluses. No note of any open sores or abscesses. She also follows with weight management and her cooker chip. Samples of linzess provided today in office to help with the constipation. Patient is to continue following with her other specialists and see me back in April for a follow up at that time. Continue with the compression stockings and monitor feet and toenails. The above patient has the presence of one or more of the following conditions and would benefit from diabetic shoes; previous amputation of the other foot, or part of either foot, history of previous right foot ulceration of either foot, history of pre-ulcerative calluses of either foot, peripheral neuropathy and evidence of callus formation of either foot, foot deformity of either foot, poor circulation (i.e. small or large vessel arterial insufficiency) in either foot. The above note written by Slime Tillman MA, acting as human recorder, note dictated by Dr. Mike Gillis. Future Tests Future scheduled test information is unavailable Pending Tests Pending diagnostic test information is unavailable Future Visits Future appointment information is unavailable Future Procedures Future procedure information is unavailable Future Medications Future medication information is unavailable Patient Instructions Patient instructions are unavailable
--- NOTE | 2025-03-21 08:27 | MR_ITS ---
[place] [id number] Patient Name: HOLA REESE MRN: [id number] date: 1945 Sex: F Assigned Patient Location: MRI Current Patient Location: MRI Accession/Order Number: [id number] Exam Date: 03/21/2025 08:40 Report Date: 03/21/2025 17:26 At the request of: REJI SINHA DPM Procedure: MR ankle RT wo con MR ankle RT wo con 03/21/2025 9:30 AM SIGNS AND SYMPTOMS: Peroneal Tendonitis, chronic right lateral ankle pain PROTOCOL: Multiplanar multisequence MR images of the right ankle without contrast COMPARISON: None. FINDINGS: Alignment: Normal. Fluid: Tibiotalar: No joint effusion. Subtalar: No joint effusion. Medial: Medial malleolus: Intact. Tendons: Posterior tibial tendon: Intact. Flexor digitorum longus: Intact. Flexor hallucis longus: Intact. Ligaments: Deltoid ligament complex - superficial: Intact. Deltoid ligament complex - deep: Intact. Spring (plantar calcaneo-navicular) ligament: Intact. Lateral: Lateral malleolus: Normal. Retromalleolar groove: Normal. Tendons: Peroneus longus: Intact. Peroneus brevis: There is a split thickness tear of the peroneus brevis posterior to the lateral malleolus. The tendon is otherwise intact. Peroneal retinaculum: Intact. Ligaments: Anterior inferior tibiofibular (syndesmosis): Intact. Posterior inferior tibiofibular (syndesmosis): Intact. Anterior talofibular ligament: Intact. Calcaneofibular ligament: Intact. Posterior talofibular ligament: Intact. Posterior: Posterior talus: Normal. Intermalleolar ligament: Intact. Achilles tendon: Intact. Plantar fascia: Intact. Anterior: Tendons: Anterior tibial tendon: Intact. Extensor hallucis longus: Intact. Extensor digitorum longus: Intact. Tibiotalar joint: Intact. Subtalar joint: Intact. Bones (other than subarticular marrow): Degenerative changes are noted along the navicular, the cuneiforms, and the cuboid with subchondral edema. There is spurring along the dorsal aspect of the tarsometatarsal junctions greatest at the base of the second metatarsal. Muscles: Normal Tarsal tunnel: Normal Sinus tarsi: Normal. MR/MR ankle RT wo con IMPRESSION: There is a split thickness tear of the peroneus brevis posterior to the lateral malleolus. The tendon is otherwise intact. Degenerative changes are noted in the tarsal bones and tarsometatarsal junctions, greatest along the base of the second metatarsal. Impression dictated by: Roberto Markham M.D. 03/21/2025 5:26 PM Dictation Location: [place] [address] Electronically authenticated by: [id number] Y Date: 03/21/2025 17:26
--- OUTSIDE RECORDS SUMMARY | 2025-03-21 08:35 | XMS_ITS | CCD ---
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 Name Role Phone ERICH GILLIS Primary Care Physician Erich Gillis Primary Care Provider No, Referral Unavailable Unavailable Da King MD Unavailable Merary Booth Unavailable Erich Gillis Unavailable Mayco Abel Unavailable Carlin, DO Mckeon Primary Care Provider Carlin, DO Mckeon Attending Provider MD Merary Booth Attending Provider [phone] Erich Gillis Primary Care Provider Da King MD Unavailable Erich Gillis Primary Care Provider No, Referral Unavailable Unavailable Da King MD Unavailable Carlin, DO Mckeon Primary Care Provider Arsenios, DO Mckeon Attending Provider Kuns, DO Mckeon Primary Care Provider Carlin, DO Mckeon Attending Provider Arsenios, DO Mckeon Primary Care Provider [phone] Arsenios, DO Mckeon Attending Provider DO Madi [place] Emergency Provider Arsenios, DO Mckeon Primary Care Provider [phone] Carlin, DO Mckeon Attending Provider MD Merary Booth Attending Provider [phone] No, Referral Unavailable Unavailable Arsenios, DO Mckeon Primary Care Provider [phone] Kuns, DO Erich Attending Provider [phone] Da King MD Unavailable Kuns, DO Erich Primary Care Provider Kuns, DO Erich Attending Provider [phone] Kuns, DO Erich Primary Care Provider Kuns, DO Erich Primary Care Provider [phone] MD Merary Booth Attending Provider Kuns, DO Mckeon Attending Provider [phone] Unavailable Primary Care Provider Unavailabl e [place], [place] Mike Attending Unavail able REJI BENTLEY Referring Unavailable [place] Mike Attending Unavail able REJI BENTLEY Referring Unavailable [place] Mike Attending Unavail able REJI BENTLEY Referring Unavailable [place] Mike Attending Unavail able REJI BENTLEY Referring Unavailable [place] Mike Attending Unavail able REJI BENTLEY Referring Unavailable NEVA EPPS Attending Unavailable REJI BENTLEY Referring Unavailable DO Erich Gillis Primary Care Provider Jake [facility] Felecia E Emergency Provider [phone] WILMER HansenC Cheri Doss Attending Provider Erich Gillis Primary Care Provider Carlin, DO Mckeon Primary Care Provider [phone] Carlin, DO Mckeon Attending Provider KACI Saavedra [...] [place] Referring Unavailable Jamey Malone Attending Unavailable Jamey Malone Referring Unavailable MD Jamey Malone Admitting [...] Unavailable Kuns DO, Erich Primary Care Provider [phone] Kuns DOErich Attending Provider Da King MD Unavailable [phone] Kuns DO, Erich Primary Care Provider Lorraine Oneill Attending Provider Kuns DO, Erich Attending Provider RIZWANA, TAGREED Referring Unavailable KUNS, ERICH LEONARDO [...] Unavailable Caleb MD, Antony L Attending Provider [phone] Ryan LIVE Attending Unavailable Ryan LIVE Attending Unavailable Ryan LIVE Attending Unavailable Ryan LIVE Attending Unavailable Allergies Allergy ClassificationReported Allergen(s)Allergy TypeDate of OnsetReaction(s) Facility (20 sources)Aspirin; Translations: [aspirin]Drug Xekdxfk85-11-1306[place], Other: See Comments, Unknown (qualifier value)[facility] Other Comment on above:Blood platelets go very lowBruising, platelet dysfunction (20 sources)levoFLOXacin; Translations: [levofloxacin]Drug Lrkfhqe27-31-2536 Rash, Other: See Comments, Itching (finding), Burning vapor (physical force) [facility] Other (20 sources)moxifloxacin; Translations: [moxifloxacin]Drug Xmrvmro93-08-0425 Itching (finding), Burning (qualifier value)[facility] Other Comment on above:Sensation of Burning up from the inside (18 sources)AmoxicillinDrug Lrebjhh02-42-2025Pgkxhfqdips, ItchingMer[facility] Work Phone: (20 sources)moxifloxacin; Translations: [MOXIFLOXACIN HCL]Drug Yfivtky98-77-[address] [facility] (8 sources)Salicylic Acid; Translations: [SALICYLATES]Drug Sgbhdnb22-15-[address] [facility] Work Phone: (20 sources)Salicylate productDrug Sacdulu85-54-0327[facility] Work Phone: (20 sources)NSAIDS (Non-Steroidal Anti-Inflamma; Translations: [NSAIDS (Non- Steroidal Anti-Inflamma]Allergy to aeiulvsnz50-90-4277Hkfylfq ReactionMartins Ferry HospitalComment on above:affects platelets (1 source)AspirinDrug Sasmddh43-30-7128DvqfwonpdMartins Ferry Hospital Repository (1 source)levoFLOXacinDrug Xskopdv44-56-2156DiiymxmlxMartins Ferry Hospital Repository (1 source)moxifloxacinDrug Yxrcnpz13-28-3636[facility]iqp [facility] Medications Current Medications MedicationDrug Class(es)DatesSig (Normalized)Sig (Original)0.25 MG, 0.5 MG Dose 3 ML semaglutide 0.68 MG/ML Pen Injector [Ozempic] (9 sources)Start: 81-26-2592Kkhkflb 2 mg/3 mL (0.25 mg or 0.5 mg dose) subcutaneous solution Refills(s) 0 Start Date: 02/08/23 Status: Ordered0.5 ML tirzepatide 15 MG/ML Auto-Injector [Mounjaro] (2 sources)Start: 18-45-4713Swnybypk 7.5 mg/0.5 mL subcutaneous solution 7.5 mg Start Date: 08/21/24 Status: Ordered Medication Dispense Status: Completed Total Allowed Fills: 1 Fills Dispensed: 0Start: 57-21-9809Ryrdmxkd 7.5 mg/0.5 mL subcutaneous solution 7.5 mg Start Date: 08/21/24 Status: Ordered Repeat number: 1Augmentin Tablets 875 MG (2 sources)Start: 07-19-1924eide 1 tablet by mouth every twelve hoursAugmentin Tablets 875 MG 1 tablet oral BID for 10 days Oct, Activeazelastine (15 sources)Histamine-1 Receptor AntagonistAstelin ActiveBlood-Glucose Meter (20 sources)Start: 58-28-1497Pnogc-Glucose Meter Use as directed to check BG daily. Dx: E11.49 not on insulin 1 Each 1 05/28/2022 ActiveStart: 05-24-2022 End: 04-51-1292Spjeo-Glucose Meter Use as directed to check BG daily 1 Each 05/24/2022 05/28/2022 DiscontinuedStart: 32-30-7514Htgsp-Glucose Meter Use as directed to check BG daily 1 Each 05/24/2022 ActiveComment on above:Use as directed to check BG dailyUse as directed to check BG daily. Dx: E11.49 not on insulinBlood-Glucose Meter (TRUE METRIX GLUCOSE METER) (20 sources)Start: 64-22-5488Aoqnf-Glucose Meter (TRUE METRIX GLUCOSE METER) Indications: 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athy (HCC) 1 Each once daily. 1 Each 09/08/2023 ActiveStart: 66-14-6381Ftvey-Glucose Meter (TRUE METRIX GLUCOSE METER) Indications: 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athy (HCC) 1 Each once daily. 1 Each 0 09/08/2023 Jhgrrr115 actuat budesonide 0.16 mg/actuat / formoterol fumarate 0.0048 mg/actuat / glycopyrrolate 0.009 mg/actuat metered dose inhaler (10 sources)Corticosteroid, beta2-Adrenergic AgonistStart: 69-48-3956chgg 2 puff(s) by inhalation twice dailyBreztri Aerosphere 160-9-4.8 MCG/ACT 2 puffs Inhalation Twice a day Nov, ActiveCalcium (20 sources)Phosphate Binder, CalciumStart: 67-30-4203pnzp 1 dose by mouth once dailyCalcium 600+D Oral, Daily, Refill(s) 0, Prophylaxis Start Date: 06/23/15 Status: Ordered Medication Dispense Status: Completed Total Allowed Fills: 1 Fills Dispensed: 0Start: 68-68-4896Nfvzymw 600+D Oral, Daily, Refill(s) 0, Prophylaxis Start Date: 06/23/15 Status: Ordered Repeat number: 1Start: 67-96-5758Viopdvi 600+D Oral, Daily, Refill(s) 0, Prophylaxis Start Date: 06/23/15 Status: Orderedcalcium carbonate 1500 mg oral tablet (20 sources)Start: 67-34-5976mexn 1 tablet by mouth twice dailycalcium (as carbonate) 600 mg oral tablet 600 mg = 1 tab(s), Oral, BID, Refills(s) 0 Start Date: 11/24/21 Status: Ordered Medication Dispense Status: Completed Total Allowed Fills: 1 Fills Dispensed: 0calcium carbonate 1500 mg / cholecalciferol 200 unt oral tablet (20 sources)Vitamin DStart: 96-99-6648ndzw 1 tablet by mouth once dailyCalcium Carbonate-Vitamin [...] 300 mg oral capsule (6 sources)Cephalosporin AntibacterialStart: 16-31-4742yxuj 1 capsule by mouth every twelve hoursCefdinir 300 MG 1 capsule Orally BID for 10 days Sep, ActiveZyrtec (20 sources)Histamine-1 Receptor AntagonistStart: 84-90-0858Chgduu Refills(s) 0 Start Date: 10/21/23 Status: Ordered Medication Dispense Status: Completed Total Allowed Fills: 1 Fills Dispensed: 0Start: 92-94-8139Gdgbsv Refills(s) 0 Start Date: 10/21/23 Status: Ordered Repeat number: 1Start: 40-72-1789Lxbuju Refills(s) 0 Start Date: 10/21/23 Status: OrderedStart: 10-03-2023 End: 55-30-4363cvoy 1 capsule by mouth once dailyCetirizine (Zyrtec) 10 mg capsule Active 10 MG PO Daily December 18, 2024 10:17am Complies with drug therapyStart: 11-11-2017 End: 02-56-7517thwm 1 tablet by mouth once dailyCetirizine (Zyrtec) 10 mg Tablet Discontinued 1 TAB PO Daily November 11, 2017 12:00am July 27, 2021 7:16am cholecalciferol 0.125 mg oral capsule (20 sources)Vitamin DStart: 87-81-0954qjyj 1 capsule by mouth once daily Cholecalciferol (Vitamin D3) 125 mcg (5,000 unit) capsule Active 125 MCG PO Daily January 28, 2025 12:00am Complies with drug therapyStart: 06-20-2023 End: 05-36-9081qruc 1 capsule by mouth every weekCholecalciferol (Vitamin D3) 1,250 mcg (50,000 unit) capsule Discontinued 1250 MCG PO every week June 20, 2023 12:00am January 28, 2025 10:40amtake 1 capsule by mouth every weekVitamin D3 1.25 MG (11403 UT) 1 capsule Orally weekly Activeciprofloxacin 500 mg oral tablet (2 sources)Quinolone AntimicrobialStart: 59-98-1025nfwg 1 tablet by mouth every twelve hoursCiprofloxacin HCl 500 MG 1 tablet Orally every 12 hrs for 10 day(s) Feb, ActiveclonazePAM 0.5 mg oral tablet (20 sources)BenzodiazepineStart: 13-06-7508wmri 0.25 mg by mouth once daily at bedtime as neededClonazePAM 0.5 mg Tab 0.25 mg = 0.5 tab(s), Oral, Once a day (at bedtime), PRN Leg cramps, Refills(s) 0 Start Date: 11/24/21 Status: Ordered Medication Dispense Status: Completed Total Allowed Fills: 1 Fills Dispensed: 0 Start: 08-16-2021 End: 89-61-5832azbj 1 tablet by mouth once daily at bedtime as neededClonazepam 0.5 mg tablet Discontinued 0.5 MG PO Daily at bedtime as needed for Restless Leg(S) 30 30 2 August 31, 2023 2:46pm February 14, 2024 5:48pm Restless legs syndrome Restless legs syndromeStart: 04-15-9074atjf 1 tablet by mouth every twenty-four hoursKlonoPIN 0.5 MG 1 tablet at bedtime Orally Once a day PRN Dec, ActiveComment on above:Take 1 tablet by mouth as needed. For restless leg syndromedocusate sodium 100 mg oral capsule (6 sources)Start: 61-00-5038Wricqvmq Sodium (Dulcolax Stool Softener (Dss)) 100 mg capsule Active 300 MG PO Daily September 12, 2024 2:53pm Complies with drug therapyStart: 09-12-2024 End: 08-20-9700jwqt 1 capsule by mouth once dailyDocusate Sodium (Dulcolax Stool Softener (Dss)) 100 mg capsule Discontinued 100 MG PO Daily September 12, 2024 12:00am September 12, 2024 2:54pmDULoxetine 30 mg delayed release oral capsule (18 sources)Serotonin and Norepinephrine Reuptake InhibitorStart: 08-22-2024 End: 86-09-4711kclp 1 capsule by mouth once dailyDuloxetine 30 mg capsule,delayed release(DR/EC) Active 30 MG PO Daily 90 1 October 24, 2024 4:45pm Neuropathy Polyneuropathy, unspecified Complies with drug therapy fludrocortisone acetate 0.1 mg oral tablet (20 sources)Start: 12-15-2023 End: 33-04-0105gduo 2 tablets by mouth once dailyfludrocortisone (FLORINEF) 0.1 mg tablet Indications: Orthostatic lightheadedness Take 2 tablets bymouth once daily. 60 tablet 3 10/27/2024 ActiveStart: 11-05-2022 End: 33-35-9902vdij 1 tablet by mouth once daily in the morningFludrocortisone 0.1 mg tablet Active 0.2 MG PO Every morning February 22, 2024 2:42pm Complies with drug therapyStart: 01-29-2022 End: 90-42-3702cilq 0.5 tablet by mouth once dailyfludrocortisone (FLORINEF) 0.1 mg tablet Indications: Orthostatic lightheadedness Take 0.5 tablets by mouth once daily. 30 tablet 3 01/29/2022 08/03/2023 DiscontinuedStart: 77-03-4721gfqq 1 tablet by mouth twice dailyfludrocortisone 0.1 mg Tab 0.1 mg = 1 tab(s), Oral, BID, Refills(s) 0 Start Date: 11/24/21 Status: Ordered Medication Dispense Status: Completed Total Allowed Fills: 1 Fills Dispensed: 0Start: 10-30-2021 End: 57-68-9735ryvv 1 tablet by mouth once dailyfludrocortisone (FLORINEF) 0.1 mg tablet Indications: Orthostatic lightheadedness Take 1 tablet by mouth once daily. 30 tablet 3 08/03/2023 ActiveComment on above:Take 1 tablet by mouth once daily.Take 0.5 tablets by mouth once daily.fluticasone propionate 0.05 mg/actuat metered dose nasal spray (20 sources)CorticosteroidStart: 81-73-0382Yoxrbiufhpy Propionate (Flonase Allergy Relief) 50 mcg/actuation [place],Suspension Active 1 - 2 SPRAY INTRANASAL Daily [...] hydrochloride 25 mg oral tablet (1 source)AntihistamineStart: 02-96-8823racz 1 tablet by mouth every twenty-four hourshydrOXYzine HCl 25 MG 1 tablet at bedtime as needed Orally Once a day for 2 days Dec, Activeiv contrast (will be provided with radiology test) (4 sources)Start: 11-02-2023 End: 95-47-3544yddvkq 1 dose intravenously onceiv contrast (will be [...] Each 0 11/02/2023 11/03/2023 ActiveStart: 07-26-2023 End: 14-77-2830ikxtpq 1 dose intravenously onceiv contrast (will be [...] mg oral capsule (1 source)Guanylate Cyclase-C AgonistStart: 33-88-8248Ughukxsvuhe (Linzess) 72 mcg capsule Active 72 MCG PO Daily 4 0 December 18, 2024 12:00am constipation Samples of 72 mg and 145 mg provided. #4 of each. Complies with drug therapy Claritin (20 sources)Start: 97-57-2763Bqweuulz Daily, Refills(s) 0 Start Date: 02/08/23 Status: OrderedStart: 07-27-2021 End: 30-33-2158delj 1 tablet by mouth once dailyLoratadine (Claritin) 10 mg Tablet Discontinued 10 MG PO Daily July 27, 2021 12:00am October 03, 2023 10:25amComment on above:Take 10 mg by mouth once daily.metroNIDAZOLE 500 mg oral tablet (3 sources)Nitroimidazole AntimicrobialStart: 64-01-6891wenq 1 tablet by mouth every eight hoursmetroNIDAZOLE 500 MG 1 tablet Orally Three times a day for 10 day(s) Feb, ActiveMulti For Her (20 sources)Multi For Her as directed Orally ActiveMultivitamin preparation (20 sources)MULTIVITAMIN (MULTI-DAY ORAL) Take by mouth once daily. Active MULTIVITAMIN (MULTI-DAY ORAL) Take by mouth once daily. 0 ActiveComment on above:Take by mouth once daily.Multivitamins and Minerals (20 sources)Start: 57-35-7679tdia 1 tablet by mouth once dailyMultivitamins and Minerals 1 tab, Oral, Daily, Refill(s) 0, Prophylaxis Start Date: 06/24/15 Status:Ordered Medication Dispense Status: Completed Total Allowed Fills: 1 Fills Dispensed: 0Start: 65-61-4978cdcj 1 tablet by mouth once daily Multivitamins and Minerals 1 tab, Oral, Daily, Refill(s) 0, Prophylaxis Start Date: 06/24/15 Status:Ordered Repeat number: 1Start: 40-33-3358irzo 1 tablet by mouth once dailyMultivitamins and Minerals 1 tab, Oral, Daily, Refill(s) 0, Prophylaxis Start Date: 06/24/15 Status:OuebggwJm-Bqkgwdc-Wvv-Iron Fm-Fa-Vitk (Multi For Her) 18 mg iron-600 mcg-80 mcg Tablet (20 sources)Start: 96-16-0934fpid 1 tablet by mouth once daily Gm-Lpdybke-Ldw-Iron Fm-Fa-Vitk (Multi For Her) 18 mg iron-600 mcg-80 mcg Tablet Active 1 TAB PO Daily November 11, 2017 12:00am Complies with drug therapyStart: 30-85-9011uyyg 1 tablet by mouth once djqfnOs-Qasirbl-Klt-Iron Fm-Fa-Vitk (Multi For Her) 18 mg iron-600 mcg-80 mcg Tablet Active 1 TAB PO Daily November 10, 2017 11:00pmStart: 06-70-8481qvox 1 tablet by mouth once daily Pl-Boosipo-Yke-Iron Fm-Fa-Vitk (Multi For Her) 18 mg iron-600 mcg-80 mcg Tablet Active 1 TAB PO Daily November 11, 2017 12:00amnebulizer machine (20 sources)Start: 78-03-0556Ofurz: 80-80-5904kztjeazqd machine as directed prn Apr, ActiveNebulizers (9 sources)Start: 52-78-3582Ogmbozobll Active 0 .Route June 20, 2023 12:00am As directedStart: 20-99-9628Oxfejmdnjy Active 0 .ROUTE June 20, 2023 12:00am As directedNebulizers misc (9 sources)Start: 36-36-7019Lccxjxibjr misc Active 0 .Route June 20, 2023 12:00am As directedStart: 31-89-9520Wphfzglgji misc Active 0 .Route June 19, 2023 11:00pm As directedOzempic 0.25 or 0.5 MG/DOSE (20 sources)inject 0.5 mg by subcutaneous injection every weekOzempic 0.25 or 0.5 MG/DOSE 0.5 mg Subcutaneous weekly ActiveOzempic 0.25 or 0.5 MG/DOSE as directed Subcutaneous 0.5 Activepain medication (2 sources)Start: 26-78-9423azlh medication pain medication, Oral, Pain Start Date: 12/07/22 Status: OrderedPlecanatide (Trulance) 3 mg tablet (1 source)Start: 72-29-5986hfyv 1 tablet by mouth once dailyPlecanatide (Trulance) 3 mg tablet Active 3 MG PO Daily September 12, 2024 12:00am sample providedpravastatin sodium 10 mg oral tablet (20 sources)HMG-CoA Reductase InhibitorStart: 02-15-2024 End: 80-68-4526Kpmkpinllxg 10 mg tablet Active 10 MG PO February 22, 2024 1:00am Complies with drug therapyStart: 92-82-3195qmnc 1 tablet by mouth once dailypravastatin 20 mg Tab 20 mg = 1 tab(s), Oral, Daily Start Date: 02/06/24 Status: Ordered MedicationDispense Status: Completed Total Allowed Fills: 1 Fills Dispensed: 0Start: 06-23-2015 End: 66-96-2657adde 1 tablet by mouth once dailyPravastatin (Pravachol) 20 mg Tablet Discontinued 1 TAB PO Daily November 11, 2017 12:00am June 07, 2023 11:51amComment on above:Take 1 tablet by mouth daily at bedtime.predniSONE 10 mg oral tablet (7 sources)Start: 51-77-4640cglh 1 tablet by mouth every twelve hourspredniSONE 10 MG 1 tablet Orally bid for 5 days Jun, Activepregabalin 150 mg oral capsule (20 sources)Start: 46-46-6527pzez 1 capsule by mouth twice dailypregabalin (LYRICA) 150 mg capsule Take 1 capsule by mouth two times a day. 08/21/2024 ActiveStart: 08-03-2024 End: 85-33-6632wxbb 1 capsule by mouth three times dailyPregabalin (Lyrica) 150 mg capsule Active 150 MG PO Three times daily 270 90 1 January 28, 2025 8:39am Restless legs syndrome Restless legs syndrome Complies with drug therapyStart: 05-23-2024 End: 31-40-1323uypq 1 capsule by mouth three times dailyPregabalin (Lyrica) 100 mg capsule Discontinued 100 MG PO Three times daily 270 90 0 August 01, 2024 10:55am August 03, 2024 11:01am Restless legs syndrome Restless legs syndrome tamsulosin hydrochloride 0.4 mg oral capsule (8 sources)alpha-Adrenergic Blockertake 1 capsule by mouth every twenty-four hoursTamsulosin HCl 0.4 MG 1 capsule Orally Once a day ActiveTirzepatide (1 source)Start: 70-69-7815Rgsumwcspbb (Mounjaro) 7.5 mg/0.5 mL pen injector Active 7.5 MG SUBCUT every week January 28, 2025 12:00am Complies with drug therapytirzepatide (MOUNJARO) 10 mg/0.5 mL pen injector (15 sources)Start: 62-14-5517sswslh 10 mg by subcutaneous injection every week tirzepatide (MOUNJARO) 10 mg/0.5 mL pen injector Indications: Type 2 diabetes mellitus with stage 3a chronic kidney disease, without long-term current use of insulin (HCC) Inject 10 mg subcutaneouslyone time a week. 2 mL 5 08/29/2024 ActiveStart: 83-08-8517scirxt 10 mg by subcutaneous injection every week tirzepatide (MOUNJARO) 10 mg/0.5 mL pen injector Indications: Type 2 diabetes mellitus with stage 3a chronic kidney disease, without long-term current use of insulin (HCC) Inject 10 mg subcutaneouslyone time a week. 2 mL 5 08/21/2024 ActivetraMADol hydrochloride 50 mg oral tablet (15 sources)Opioid AgonistStart: 89-78-8657ivll 1 tablet by mouth every six hourstraMADol HCl 50 MG 1 tablet Orally QID for 7 day(s) May, Active Start: 91-93-7720hqam 1 tablet by mouth every six hourstraMADol HCl 50 MG 1 tablet Orally QID for 7 days Apr, ActiveVitamin D (20 sources)Start: 15-30-9732refn 1 dose by mouth every weekVitamin D 50,000 International_Unit, Oral, qWeek, Refills(s) 0, Prophylaxis Start Date: 06/23/15 Status: Ordered Medication Dispense Status: Completed Total Allowed Fills: 1 Fills Dispensed: 0Start: 39-50-2657Rujvqbd D 50,000 International_Unit, Oral, qWeek, Refills(s) 0, Prophylaxis Start Date: 06/23/15 Status: Ordered Repeat number: 1Start: 23-77-5008Nbdoqmv D 50,000 International_Unit, Oral, qWeek, Refills(s) 0, Prophylaxis Start Date: 06/23/15 Status: OrderedVitamin D2 2000 UNIT (20 sources)Vitamin D2 2000 UNIT Orally Activevortioxetine 10 mg oral tablet (11 sources)Start: 05-75-6648knys 1 tablet by mouth once dailyTrintellix 10 mg oral tablet 10 mg = 1 tab(s), Oral, Daily, Refills(s) 0 Start Date: 12/07/21 Status: OrderedStart: 11-27-2021 End: 90-39-3062dpcp 1 tablet by mouth every twenty-four hoursTrintellix 5 MG 1 tablet Orally Once a day for 30 day(s) samples Nov, ActiveStart: 88-36-6198gnvu 1 tablet by mouth every twenty-four hoursTrintellix 10 MG 1 tablet Orally Once a day samples Nov, Active Completed/Discontinued Medications MedicationDrug Class(es)DatesSig (Normalized)Sig (Original)acetaminophen 325 mg / HYDROcodone bitartrate 5 mg oral tablet (20 sources)Opioid AgonistStart: 06-17-2023 End: 56-20-4473jybu 1 tablet by mouth every six hours as needed for pain Hydrocodone-Acetaminophen 5-325 mg tablet Discontinued 1 TAB PO Every 6 hours as needed for pain 2430 0 June 20, 2023 August 31, 2023 2:15pm Dog bite Bitten by dog, initial encounterStart: 84-04-9636pvdj 1-2 tablets by mouth every four to six hours as neededNorco 5-325 MG 1-2 tablet as needed Orally every 4-6 hrs Nov, ActiveStart: 67-32-3118ctki 1-2 tablets by mouth every four to six hours as neededNorco 5-325 MG 1-2 tablet as needed Orally every 4-6 hrs for 7 days Nov, ActiveStart: 11-15-2022 End: 57-62-0585vcwb 1 tablet by mouth every four to [...] tunnel syndrome, unspecified upper limbStart: 06-08-2021 End: 89-02-9145gazv 1 tablet by mouth every four hours as needed for pain Hydrocodone-Acetaminophen 5-325 mg Tablet Discontinued 1 TAB PO Q4H as needed for Pain 6 5 0 June 08, 2021 July 27, 2021 7:16am Abdominal pain Unspecified abdominal painStart: 06-04-2021 End: 30-90-6616zjcn 1 tablet by mouth twice daily as needed for painHydrocodone- Acetaminophen 5-325 mg tablet Discontinued 1 TAB PO Twice daily as needed for pain 10 50 June 04, 2021 July 27, 2021 7:16am Renal colic Unspecified renal colicStart: 02-16-2021 End: 21-49-3604vmna 1 tablet by mouth every four to [...] - cchs compounding (3 sources)Start: 03-26-2021 End: 05-22-6115yxivnnzceloxb 10% solution - cchs compoundingStart: 03-26-2021 acetylcholine 10% solution - cchs compoundingalbuterol 0.83 mg/ml inhalation solution (20 sources)beta2-Adrenergic AgonistStart: 07-26-2024 End: 29-08-8891qaog 2.5 mg by inhalation three times dailyAlbuterol Sulfate 2.5 mg /3 mL (0.083 %) solution for nebulization Discontinued 2.5 MG INHALATION Th ree times daily 90 2 July 26, 2024 12:17pm July 26, 2024 3:01pmStart: 78-48-9218Ibbynwdhi Sulfate 90 mcg/actuation HFA aerosol inhaler Active 1 INH INHALATION Every 6 hours as needed for shortness of breath or wheezing 8.5 2 July 26, 2024 12:00am Complies with drug therapyStart: 06-20-2023 End: 29-91-6205trdyslcax (PROVENTIL) 2.5 mg /3 mL (0.083 %) nebulizer solution as needed. 0 06/20/2023 09/13/2023 DiscontinuedStart: 06-20-2023 End: 60-05-6414xpav 3 mL by inhalation three times daily as neededAlbuterol Sulfate 2.5 mg /3 mL (0.083 %) solution for nebulization Discontinued MG INHALATION 2023 12:00am July 26, 2024 12:18pm FreeTextSi ml prefilled vial Inhalation Three timesa day prn; Note: Source Status: Taking; Provider: Carlin Mckeon RStart: 11-11-2017 End: 49-78-8924gidj 1 dose by inhalation three times daily as neededAlbuterol Sulfate 2.5 mg /3 mL (0.083 %) Solution For Nebulization Discontinued 1 DOSE INHALATION Three times daily as needed for Shortness Of Breath November 11, 2017 12:00am August 28, 2018 1:33pmStart: 11-11-2017 End: 95-85-1668ihcq 1 puff(s) by inhalation every four hours as neededAlbuterol Sulfate (Proventil Hfa) 90 mcg/actuation Hfa Aerosol Inhaler Discontinued 2 PUFF INHALATION Q4H as needed for Shortness Of Breath November 11, 2017 12:00am August 28, 2018 1:33pmStart: 39-43-0332weah 2 puff(s) by inhalation every four hours as neededProventil HFA 108 (90 Base) MCG/ACT 2 puffs as needed Inhalation every 4 hrs prn prn Jun, Not-TakingStart: 14-70-7119Auzvz: 21-78-8691Qjlqlosmb Sulfate (2.5 MG/3ML) 0.083% 3 ml prefilled vial Inhalation Three times a day prn Apr, ActiveStart: 36-32-9204Vknblmdan Sulfate (2.5 MG/3ML) 0.083% 3 ml prefilled vial Inhalation Three times a day prn Apr, ActiveStart: 01-75-1497Idyxiiwjn Sulfate (2.5 MG/3ML) 0.083% 3 ml prefilled vial Inhalation Three times a day prn for 30 days Apr, ActiveStart: 04-18-2017 amitriptyline hydrochloride 10 mg oral tablet (20 sources)Tricyclic AntidepressantStart: 11-11-2017 End: 18-22-0185leit 2 tablets by mouth once daily at bedtimeAmitriptyline 10 mg Tablet Discontinued 2 TAB PO Daily at bedtime November 11, 2017 12:00am June 04, 2021 5:24pmamoxicillin 500 mg oral capsule (6 sources)Penicillin-class AntibacterialStart: 06-23-2023 End: 26-55-6358drnt 4 capsules by mouth every houramoxicillin (AMOXIL) 500 mg capsule TAKE 4 CAPSULES BY MOUTH ONE HOUR PRIOR TO DENTAL APPOINTMENT. 0 06/23/2023 09/13/2023 Discontinuedamoxicillin 875 mg / clavulanate 125 mg oral tablet (20 sources)Penicillin-class AntibacterialStart: 06-17-2023 End: 84-93-3430wtyt 1 tablet by mouth twice dailyAmoxicillin-Pot Clavulanate 875-125 mg tablet Discontinued 1 TAB PO Twice daily 20 June 23, 2023 4:35pm August 31, 2023 2:14pmStart: 05-99-9983bilv 1 tablet by mouth every twelve hours Amoxicillin-Pot Clavulanate 875-125 MG 1 tablet Orally every 12 hrs for 10 day(s) May, ActiveStart: 02-16-2021 End: 20-91-4024eofj 1 tablet by mouth twice dailyAmoxicillin-Pot Clavulanate (Augmentin) 875-125 mg tablet Discontinued 1 TAB PO Twice daily 14 February 16, 2021 1:00am June 08, 2021 12:30pmazithromycin 250 mg oral tablet (20 sources)Macrolide AntimicrobialStart: 06-07-2024 End: 05-52-2503Kmlvfxarkshk (Zithromax) 250 mg tablet Discontinued 0 PO .COMPLEX 6 0 June 11, 2024 3:28pm September 12, 2024 2:32pm For 250 mg dose pack: take 500 mg today (day 1), then 250 mg for 4 days (days 2-5) POStart: 03-01-2024 End: 49-30-7882Avcjcnbsvbst (Zithromax Z-Babak) 250 mg tablet Discontinued 0 PO .COMPLEX 6 0 March 01, 2024 1:00am May 23, 2024 1:40pm For 250 mg dose pack: take 500 mg today (day 1), then 250 mg for 4 days (days 2-5) POStart: 10-03-2023 End: 79-17-1242Whtowxqthhlf (Zithromax Z-Babak) 250 mg tablet Discontinued 0 PO .COMPLEX 6 0 December 22, 2023 12:00am February 08, 2024 3:44pm For 250 mg dose pack: take 500 mg today (day 1), then 250 mg for 4 days (days 2-5) POStart: 29-88-9178Uclsqztrx Z-Babak 250 MG as directed Orally Mar, ActiveStart: 61-02-2693Dyacrdfst Z-Babak 250 MG as directed Orally as directed 1 pack Feb, ActiveStart: 75-84-6998Xqmkweldp Z-Babak 250 MG 2 tablets on the first day, then 1 tablet daily for 4 days Orally Once a dayAugust, ActiveStart: 85-87-8877Ufgpyfnpv Z-Babak 250 MG 2 tablet on the [...] cream (17 sources)Azole Antifungal, CorticosteroidStart: 11-22-2023 End: 97-69-5270Hvhglrtyoddp-Betamethasone 1-0.05 % cream Discontinued 1 APPLIC TOPICAL Twice daily as needed December 18, 2024 10:18am January 28, 2025 10:41amStart: 93-15-7432Wgkqg: 02-93-4724Gqkfpmdksimx-Betamethasone 1-0.05 % 1 application Externally bid to thumb August, ActiveBlood-Glucose Sensor (DEXCOM G7 SENSOR) nimesh (11 sources)Start: 06-25-2024 End: 61-40-0053Ycogq-Glucose Sensor (DEXCOM G7 SENSOR) nimesh Indications: Type 2 diabetes mellitus with stage 3a chronic kidney disease, without long-term current use of insulin (HCC) , Type 2 diabetes mellitus withperipheral neuropathy (HCC) Change sensor every 10 days. 9 Each 06/25/2024 08/21/2024 DiscontinuedStart: 45-96-9658Vktsu-Glucose Sensor (DEXCOM G7 SENSOR) nimesh Indications: Type 2 diabetes mellitus with stage 3a chronic kidney disease, without long-term current use of insulin (HCC) , 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athy (HCC) Change sensor every 10 days. 9 Each 06/25/2024 Activecephalexin 500 mg oral capsule (3 sources)Cephalosporin AntibacterialStart: 08-28-2024 End: 69-16-5425rxfp 1 capsule by mouth twice dailyCephalexin 500 mg capsule Discontinued 500 MG PO Twice daily August 28, 2024 12:00am September 12, 2024 2:32pmcitalopram 20 mg oral tablet (20 sources)Serotonin Reuptake InhibitorStart: 11-11-2017 End: 95-35-8675otzy 1 tablet by mouth once dailyCitalopram (Celexa) 20 mg tablet Discontinued 20 MG PO Daily February 22, 2024 3:38pm 2024 10:08amStart: 00-79-5922plwl 0.5 tablet by mouth once dailyCitalopram (Celexa) 20 mg Tablet Active 0.5 TAB PO Daily November 11, 2017 12:00amStart: 06-23-2015 End: 46-25-2287yhkz 10 mg by mouth once dailyCelexa 10 [...] mg/mg topical gel (1 source)Nonsteroidal Anti-inflammatory DrugStart: 91-48-8990mcpzm 2 g topically four times dailydiclofenac (VOLTAREN) 1 % topical gel Apply 2 g to affected area four times daily. 50 g 1 12/30/2022 ActiveComment on above:Apply 2 g to affected area four times daily.doxycycline hyclate 100 mg oral tablet (20 sources)Tetracycline-class DrugStart: 11-15-2022 End: 11-79-3630rqqf 1 tablet by mouth twice dailyDoxycycline Hyclate 100 mg tablet Discontinued 100 MG PO Twice daily 10 5 0 November 15, 2022 12:00am June 07, 2023 11:50amempagliflozin 10 mg oral tablet (20 sources)Sodium-Glucose Cotransporter 2 InhibitorStart: 11-11-2017 End: 48-04-8893eafn 1 tablet by mouth once dailyEmpagliflozin (Jardiance) 10 mg Tablet Discontinued 1 TAB PO Daily November 11, 2017 12:00am June 08, 2018 3:58pmergocalciferol 1.25 mg oral capsule (20 sources)Provitamin D2 CompoundStart: 11-11-2017 End: 72-46-6452lkjw 1 tablet by mouth every weekErgocalciferol (Vitamin D2) (Vitamin D2) 50,000 unit Capsule Discontinued 1 TAB PO every week November 11, 2017 12:00am June 20, 2023 3:03pm On Fridays End: 00-60-3228wdjwilvlmfocag, vitamin D2, 50 mcg (2,000 unit) cap Take by mouth. 0 10/23/2021 Discontinued (Discontinued by Patient)Comment on above:TAKE 1 CAPSULE ONE TIME WEEKLYTake by mouth.esomeprazole 20 mg delayed release oral capsule (20 sources)Proton Pump InhibitorStart: 06-04-2021 End: 54-45-9167qdat 1 capsule by mouth once dailyEsomeprazole Magnesium (Nexium) 40 mg Capsule,Delayed Release(Dr/Ec) Discontinued 40 MG PO Daily June 04, 2021 1:00am June 20, 2023 3:02pmStart: 11-10-2018 End: 36-26-0410crjh 1 capsule by mouth once dailyEsomeprazole Magnesium 20 mg capsule,delayed release(DR/EC) Discontinued 20 MG PO Daily June 12:00am May 23, 2024 1:41pmComment on above:Take 1 capsule by mouth DAILY (6 AM).30 actuat fluticasone furoate 0.1 mg/actuat / umeclidinium 0.0625 mg/actuat / vilanterol 0.025 mg/actuat dry powder inhaler (20 sources)Anticholinergic, Corticosteroid, beta2-Adrenergic AgonistStart: 35-93-1088emae 1 puff(s) by inhalation once dailyTrelegy Ellipta 100-62.5-25 MCG/ACT 1 puff Inhalation Once a day sample May, Not-TakingStart: 37-56-4895tuovbclcfz 300 mg oral capsule (20 sources)Anti-epileptic AgentStart: 08-31-2023 End: 52-49-4854pequ 1 capsule by mouth in the morning, then take 1 capsule by mouth in the evening, then take 3 capsules by mouth at bedtimeGabapentin 300 mg capsule Discontinued 300 MG PO As Directed 450 1 December 22, 2023 11:42am February 22, 2024 2:44pm 1 am, 1 in the evening and 3 at bedtimeStart: 08-31-2023 End: 43-45-2280Jddipbghyw 300 mg capsule Discontinued 0 PO As Directed February 22, 2024 2:42pm May 23, 2024 1:41pm 1 qam, 1 @ noon, 3 qhs orally as directed; 1 am, 1 in the evening and 3 at bedtimeStart: 07-29-2023 End: 45-29-1720wzyf 1 capsule by mouth twice daily, then take 3 capsules by mouth once daily at bedtimegabapentin (NEURONTIN) 300 mg capsule Take 1 capsule by mouth two times a day AND 3 capsules daily at bedtime. Do all this for 30 days. 150 capsule 0 07/29/2023 ActiveStart: 06-20-2023 End: 70-66-5483whhs 900 mg by mouth once daily at bedtimeGabapentin Discontinued 900 MG PO Daily at bedtime June 20, 2023 3:07pm August 31, 2023 2:17pmStart: 11-05-2014 End: 68-97-8120kylp 3 tablets by mouth once daily at bedtimegabapentin See Instructions, 300mg qam, q noon, 3 tabs 300 mg Oral at bedtime, Refills(s) 0, Pain Start Date: 06/23/15 Status: Ordered Medication Dispense Status: Completed Total Allowed Fills: 1 Fills Dispensed: 0Start: 11-05-2014 End: 97-89-8589ptfp 1 capsule by mouth once daily at [...] mg oral tablet (20 sources)SulfonylureaStart: 06-08-2018 End: 64-64-0794vlpj 1 tablet by mouth once dailyGlyburide 5 mg Tablet Discontinued 1 TAB PO Daily June 08, 2018 1:00am August 28, 2018 1:35pm homatropine methylbromide 0.3 mg/ml / HYDROcodone bitartrate 1 mg/ml oral solution (20 sources)Opioid Agonist, Cholinergic Muscarinic AgonistStart: 05-30-2024 End: 97-78-9280Urfmozrqhbr-Homatropine (Hycodan) 5-1.5 mg/5 mL (5 mL) syrup Discontinued 5 ML PO EVERY 4-6 HOURS as needed for cough 120 7 0 June 07, 2024 September 12, 2024 2:35pm Influenza due to influenza virus, type A, humanStart: 29-00-2900TKGJDnjdisx Bit-Homatrop MBr 5-1.5 MG/5ML 5 mL as needed Orally every 6 hrs prn Feb, ActiveStart: 50-20-1688MHCVJayqoti Bit-Homatrop MBr 5- 1.5 MG/5ML 5 mL as needed Orally BID PRN Apr, Not-TakingStart: 11-67-4371Hgfnm: 73-70-4626BADJYcbrtwm-Homatropine 5-1.5 MG/5ML 5 mL Orally every 6 hrs prn Dec, ActiveStart: 59-61-1286intc 5 mL by mouth every six hours as neededHycodan Syrup 5mg/1.5 mg 5ml po q 6 hrs prn PRN Dec, Activehyaluronate (20 sources)Start: 67-78-2455Lijvb: 34-97-2713Udrncruu May, 2 mLStart: 25-20-5381Wqzgz: 40-64-0468Olaznwyv May, 2 mLStart: 89-01-6736Splws: 55-23-6348Qeusqdzm May, 2 mLKetorolac (20 sources)Nonsteroidal Anti-inflammatory Drug, Cyclooxygenase InhibitorStart: 89-82-1519Jgyxi: 90-57-4579Exswabv per 15 mg Nov,Start: 98-59-4679Gnckp: 71-28-6930Auhnvfk per 15 mg Feb, 2 mLStart: 02-46-7861Beemi: 02-27-2013 Toradol per 15 mg Feb, 2 mLStart: 73-31-3521Dfodr: 12-02-2715Aexmpvn per 15 mg Feb, 2 mLStart: 08-53-3951Udhve: 49-69-9337Bczxxcw per 15 mg Jan, 2 mLlidocaine 0.05 mg/mg medicated patch (20 sources)Antiarrhythmic, Amide Local AnestheticStart: 06-20-2023 End: 35-80-3507bkxys 1 dose topically once dailyLidocaine (Lidoderm) 5 % adhesive patch,medicated Discontinued 1 PATCH TOPICAL Daily June 20, 2023 12:00am August 31, 2023 2:15pm leave on most painful area for up to 12 hrsStart: 55-55-8094Xzujnbyy 5 % 1 patch (may cut to size) remove after 12 hours Externally Once a day Jan, Pzviog59 hr metFORMIN hydrochloride 500 mg extended release oral tablet (20 sources)BiguanideStart: 03-63-0927qisWOSEZH ER (GLUCOPHAGE XR) 500 mg 24 hr tablet Indications: Well controlled type 2 diabetes mellitus with neurological manifestations (HCC) Take 1 tab twice daily with meals 180 tablet 3 04/21/2022 ActiveStart: 40-97-0158ufuNGACKB ER (GLUCOPHAGE XR) 500 mg 24 hr tablet Indications: Well controlled type 2 diabetes mellitus with neurological manifestations (HCC) Take 1 tab twice daily with meals 180 tablet 3 05/07/2021 ActiveStart: 06-23-2015 End: 99-93-2266rwev 1 tablet by mouth twice dailyMetformin 500 mg Tablet Discontinued 1 TAB PO Twice daily November 11, 2017 12:00am November 05, 2022 8 :30amComment on above:Take 1 tab twice daily with mealsmethylPREDNISolone 4 mg oral tablet (20 sources)CorticosteroidStart: 06-07-2024 End: 84-28-8520Yexkaupdzsstebuefv 4 mg tablets,dose pack Discontinued 0 PO per package directions June 11, 2024 3:29pm September 12, 2024 2:35pm PO PER PKG DIRStart: 03-01-2024 End: 63-63-4019mbcj 1 tablet by mouth onceMethylprednisolone (Medrol (Babak)) 4 mg tablets,dose pack Discontinued 0 PO per package directions March 01, 2024 1:00am May 23, 2024 1:43pm PO PER PKG DIRStart: 12-22-2023 End: 28-90-3642uruh 1 tablet by mouth onceMethylprednisolone (Medrol (Babak)) 4 mg tablets,dose pack Discontinued 0 PO per package directions December 22, 2023 12:00am February 08, 2024 3:44pm PO PER PKG DIRStart: 11-22-2023 End: 46-02-6418Egptwbfgeqxgllcxhp 4 mg tablets,dose pack Discontinued 0 PO per package directions November 22, 2023 12:00am December 22, 2023 11:33am PO PER PKG DIRStart: 11-22-2023 End: 61-54-6505Tssnbcfmtclrfiewwe Discontinued 0 PO per package directions November 22, 2023 12:00am December 22, 2023 11:33am PO PER PKG DIRStart: 17-10-3240Bdvmkaukugpmcsrfie Active 0 PO per package directions November 22, 2023 12:00am PO PER PKG DIRStart: 06-28-2023 End: 36-64-1378ilks 1 tablet by mouth onceMethylprednisolone (Medrol (Babak)) 4 mg tablets,dose pack Discontinued 0 PO per package directions June 28, 2023 12:00am August 31, 2023 2:15pm PO PER PKG DIRStart: 85-49-8819Jlvicx 4 MG as directed Orally Mar, ActiveStart: 50-77-5058egboriSDKNOJExzumf 4 MG as directed Orally as directed 1 pack Feb, ActiveStart: 08-27-2022 methylPREDNISolone 4 MG as directed Orally August, ActiveStart: 09-01-2021 Medrol 4 MG as directed Orally August, ActiveStart: 05-39-2181Rlylgd 4 MG as directed Orally Apr, ActiveStart: 11-11-2017 End: 10-10-9481Tbnqufxcdxndfproom 4 mg tablets,dose pack Discontinued 1 TAB PO As Directed November 11, 2017 12:00am June 08, 2018 3:58pmStart: 11-11-2017 End: 22-86-1325Kgegszhhrsootbhmxo Discontinued 1 TAB PO As Directed November 10, 2017 11:00pm June 08, 2018 2:58pmStart: 11-11-2017 End: 09-91-5003Rhsellqxsycnznzafg Discontinued 1 TAB PO As Directed November 11, 2017 12:00am June 08, 2018 3:58pmnateglinide 60 mg oral tablet (20 sources)GlinideStart: 01-19-2024 End: 03-36-9576earb 1 tablet by mouth three times daily before mealtime nateglinide (STARLIX) 60 mg tablet Take 1 tablet by mouth three times a day before meals for 4 days. Start after your steroid injection. 12 tablet 06/25/2024 08/21/2024 Discontinuedondansetron 4 mg oral tablet (20 sources)Serotonin-3 Receptor AntagonistStart: 06-04-2021 End: 41-74-4370xayp 1 tablet by mouth twice daily as needed for nausea and vomitingOndansetron Hcl 4 mg tablet Discontinued 4 MG PO Twice daily as needed for nausea and vomiting 20 50 June 04, 2021 1:00am July 27, 2021 7:16am Start: 02-16-2021 End: 72-22-3571Nzkpkvamdrw Hcl (Zofran) 4 mg tablet Discontinued 4 MG PO every 6 to 8 hours as needed for nausea and vomiting 10 0 February 16, 2021 1:00am June 04, 2021 5:25pmoseltamivir 75 mg oral capsule (4 sources)Neuraminidase InhibitorStart: 05-30-2024 End: 76-45-6745nzub 1 capsule by mouth twice dailyOseltamivir (Tamiflu) 75 mg capsule Discontinued 75 MG PO Twice daily 10 5 0 May 30, 2024 1:00am September 12, 2024 2:35pmplecanatide 3 mg oral tablet (2 sources)Start: 09-12-2024 End: 53-12-4798qvee 1 tablet by mouth once dailyPlecanatide (Trulance) 3 mg tablet Discontinued 3 MG PO Daily 3 0 September 12, 2024 12:00am December 18, 2024 10:19am sample providedpolyethylene glycol 3350 31095 mg powder for oral solution (20 sources)Osmotic LaxativeMiraLax 17 GM 1 packet mixed with 8 ounces of fluid Orally Once a day PRN Not-Taking/PRNprednisoLONE acetate 10 mg/ml ophthalmic suspension (14 sources)CorticosteroidStart: 10-03-2023 End: 41-76-7591Oaxbkqrefkhf Acetate 1 % drops,suspension Discontinued DROPS OPHTHALMIC October 03, 2023 12:00am February 22, 2024 2:41pmStart: 10-03-2023 Prednisolone Acetate Active DROPS OPHTHALMIC October 03, 2023 12:00amrosuvastatin calcium 5 mg oral tablet (20 sources)HMG-CoA Reductase InhibitorStart: 06-07-2023 End: 48-00-2272Jwkbuloybzzu 5 mg tablet Discontinued 5 MG PO June 07, 2023 1:00am February 22, 2024 2:39pmStart: 01-31-2023 End: 15-17-3941Iqnmnzcdsspp 5 mg tablet Discontinued 5 MG PO June 07, 2023 1:00am February 22, 2024 2:39pmStart: 22-33-6584fszj 1 tablet by mouth once daily at bedtimerosuvastatin (CRESTOR) 5 mg tablet Take 1 tablet by mouth daily at bedtime. 90 tablet 1 12/23/2022 ActiveComment on above:Take 1 tablet by mouth daily at bedtime.0.25 mg, 0.5 mg dose 1.5 ml semaglutide 1.34 mg/ml pen injector (20 sources)Start: 42-61-9601olhnlahfznd (OZEMPIC) 0.25 mg or 0.5 mg(2 mg/1.5 mL) pen Indications: Well controlled type 2 diabetes mellitus with neurological manifestations (HCC) ITake 0.5 mg q weekly 4.5 mL 3 04/21/2022 ActiveStart: 67-84-9001Xztszzd 2 mg/1.5 mL (0.25 mg or 0.5 mg dose) subcutaneous solution 0.25 mg, SubCutaneous, qWeek, Refill(s) 0 Start Date: 06/15/21 Status: Ordered Start: 53-71-9314oonyswuedsu (OZEMPIC) 0.25 mg or 0.5 mg(2 mg/1.5 mL) pen injector Indications: Well controlled type2 diabetes mellitus with neurological manifestations (HCC) ITake 0.5 mg q weekly 4.5 mL 3 05/21/2021 ActiveStart: 08-28-2018 End: 40-19-5687Xhxxzjtqeoo (Ozempic) 0.25 mg or 0.5 mg(2 mg/1.5 mL) pen injector Discontinued 0.25 ML SUBCUT As Directed August 28, 2018 12:00am June 04, 2021 5:23pm Weekly on SaturdaysComment on above:ITake 0.5 mg q weeklySemaglutide (20 sources)Start: 12-22-2023 End: 16-53-1829Fezjqlgmpno (Ozempic) 1 mg/dose (4 mg/3 mL) pen injector Discontinued MG SUBCUT December 22, 2023 12:00am May 23, 2024 1:43pm Start: 12-22-2023 End: 17-12-0619Manrrxslysb (Ozempic) 1 mg/dose (4 mg/3 mL) pen injector Discontinued MG SUBCUT December 21, 2023 11:00pm May 23, 2024 12:43pm Start: 14-17-0465Lggdmylabwl (Ozempic) 1 mg/dose (4 mg/3 mL) pen injector Active MG SUBCUT December 21, 2023 11:00pmStart: 81-15-2490Waunfqkcded (Ozempic) 1 mg/dose (4 mg/3 mL) pen injector Active MG SUBCUT December 22, 2023 12:00am Start: 06-04-2021 End: 15-17-6408szvcpv 1 mg by subcutaneous injection every weekSemaglutide (Ozempic) 1 mg/dose (4 mg/3 mL) Pen Injector Discontinued 0.5 MG SUBCUT every week June 04, 2021 12:00am June 20, 2023 2:02pm mondaystart: 06-04-2021 End: 33-50-0897tbnlbp 1 mg by subcutaneous injection every weekSemaglutide (Ozempic) 1 mg/dose (4 mg/3 mL) Pen Injector Discontinued 0.5 MG SUBCUT every week June 04, 2021 1:00am June 20, 2023 3:02pm mondaystart: 06-04-2021 inject 1 mg by subcutaneous injection every weekSemaglutide (Ozempic) 1 mg/dose (4 mg/3 mL) Pen Injector Active 0.5 MG SUBCUT every week June 04, 2021 12:00am mondaystart: 80-65-1220suzpyo 1 mg by subcutaneous injection every week Semaglutide (Ozempic) 1 mg/dose (4 mg/3 mL) Pen Injector Active 0.5 MG SUBCUT every week June 04, 2021 1:00am mondaystart: 91-61-9561mebvin 1 mg by subcutaneous injection every weekSemaglutide (Ozempic) 1 mg/dose (4 mg/3 mL) Pen Injector Active 0.5 MG SUBCUT every week June 04, 2021 12:00amStart: 01-27-9568utdwti 1 mg by subcutaneous injection every weekSemaglutide (Ozempic) 1 mg/dose (4 mg/3 mL) Pen Injector Active 0.5 MG SUBCUT every week June 042021 1:00amSemaglutide (20 sources)Start: 08-31-2023 End: 21-62-8732Fxlxrsrzhos (Ozempic) 0.25 mg or 0.5 mg (2 mg/3 mL) pen injector Discontinued 1 MG SUBCUT August 1:14pm December 22, 2023 10:33amStart: 08-31-2023 End: 63-50-9549Bdcwpuvkydo (Ozempic) 0.25 mg or 0.5 mg (2 mg/3 mL) pen injector Discontinued 1 MG SUBCUT August 2:14pm December 22, 2023 11:33amStart: 57-84-5568Xagzqeuripe (Ozempic) 0.25 mg or 0.5 mg (2 mg/3 mL) pen injector Active 1 MG SUBCUT August 31, 2023 2:14pmStart: 06-20-2023 End: 51-74-8405Ztqtbzhjvyv (Ozempic) 0.25 mg or 0.5 mg (2 mg/3 mL) pen injector Discontinued MG SUBCUT June 11:00pm August 31, 2023 1:17pmStart: 06-20-2023 End: 90-75-5688Xgaujtpzxcc (Ozempic) 0.25 mg or 0.5 mg (2 mg/3 mL) pen injector Discontinued MG SUBCUT June 12:00am August 31, 2023 2:17pmStart: 00-05-8347Whdlscuvdtd (Ozempic) 0.25 mg or 0.5 mg (2 mg/3 mL) pen injector Active MG SUBCUT June 20, 2023 12:00amsemaglutide (OZEMPIC) 0.25 mg or 0.5 mg (2 mg/3 mL) pen (5 sources)Start: 04-14-2023 End: 68-97-9884jmttkf 0.5 mg by subcutaneous injection every weeksemaglutide (OZEMPIC) 0.25 mg or 0.5 mg (2 mg/3 mL) pen Inject 0.5 mg subcutaneously one time a week. 9 mL 3 04/14/2023 06/23/2023 DiscontinuedStart: 80-05-3157olfsnq 0.5 mg by subcutaneous injection every weeksemaglutide (OZEMPIC) 0.25 mg or 0.5 mg (2 mg/3 mL) pen Inject 0.5 mg subcutaneously one time a week. 9 mL 3 04/14/2023 ActiveStart: 38-43-8882vtrbhy 0.5 mg by subcutaneous injection every weeksemaglutide (OZEMPIC) 0.25 mg or 0.5 mg (2 mg/3 mL) pen Inject 0.5 mg subcutaneously one time a week. 9 mL 3 12/23/2022 ActiveComment on above:Inject 0.5 mg subcutaneously one time a week.semaglutide (OZEMPIC) 1 mg/dose (4 mg/3 mL) pen (20 sources)Start: 01-19-2024 End: 85-71-8553ofwplq 1 mg by subcutaneous injection every weeksemaglutide (OZEMPIC) 1 mg/dose (4 mg/3 mL) pen Inject 1 mg subcutaneously one time a week. 6 mL 3 01/19/2024 05/01/2024 DiscontinuedStart: 11-78-4135fqrthx 1 mg by subcutaneous injection every weeksemaglutide (OZEMPIC) 1 mg/dose (4 mg/3 mL) pen Inject 1 mg subcutaneously one time a week. 6 mL 3 01/19/2024 ActiveStart: 10-26-2023 End: 44-38-8512qjvfjk 1 mg by subcutaneous injection every weeksemaglutide (OZEMPIC) 1 mg/dose (4 mg/3 mL) pen Inject 1 mg subcutaneously one time a week. 6 mL 3 10/26/2023 01/19/2024 DiscontinuedStart: 66-66-2301cdsiqu 1 mg by subcutaneous injection every weeksemaglutide (OZEMPIC) 1 mg/dose (4 mg/3 mL) pen Inject 1 mg subcutaneously one time a week. 6 mL 3 10/26/2023 ActiveStart: 06-23-2023 End: 67-44-6305ownqbw 1 mg by subcutaneous injection every weeksemaglutide (OZEMPIC) 1 mg/dose (4 mg/3 mL) pen Inject 1 mg subcutaneously one time a week. 6 mL 3 06/23/2023 10/26/2023 DiscontinuedStart: 99-32-3360ddarqe 1 mg by subcutaneous injection every weeksemaglutide (OZEMPIC) 1 mg/dose (4 mg/3 mL) pen Inject 1 mg subcutaneously one time a week. 6 mL 3 06/23/2023 ActiveComment on above:Inject 1 mg subcutaneously one time a week.Tirzepatide (6 sources)Start: 05-23-2024 End: 43-25-7582Ybwptalnoce (Mounjaro) 5 mg/0.5 mL pen injector Discontinued 5 MG SUBCUT every week May 23, 2024 1:00am September 12, 2024 2:36pmStart: 11-00-1556Pmcewrbwhjs (Mounjaro) 5 mg/0.5 mL pen injector Active 5 MG SUBCUT every week May 23, 2024 1:00amStart: 93-37-3907Yioibgjltgy (Mounjaro) 5 mg/0.5 mL pen injector Active 5 MG SUBCUT every week May 23, 2024 12:00am Tirzepatide (3 sources)Start: 09-12-2024 End: 68-09-0898Ckmoafawhzt (Mounjaro) 10 mg/0.5 mL pen injector Discontinued 10 MG SUBCUT every week September 12, 2024 12:00am January 28, 2025 10:42amStart: 46-20-1857Xcwmmqjkzwn (Mounjaro) 10 mg/0.5 mL pen injector Active 10 MG SUBCUT every week September 12, 2024 12:00am Complies with drug therapyStart: 09-12-2024 Tirzepatide (Mounjaro) 10 mg/0.5 mL pen injector Active 10 MG SUBCUT every week September 12, 2024 12:00amtirzepatide (MOUNJARO) 5 mg/0.5 mL pen injector (16 sources)Start: 05-01-2024 End: 33-43-3373cfiebt 5 mg by subcutaneous injection every weektirzepatide (MOUNJARO) 5 mg/0.5 mL pen injector Indications: Type 2 diabetes mellitus with stage 3achronic kidney disease, without long-term current use of insulin (HCC) Inject 5 mg subcutaneously one time a week. 6 mL 05/01/2024 06/25/2024 DiscontinuedStart: 05-01-2024 End: 83-84-0930iztgxe 5 mg by subcutaneous injection every weektirzepatide (MOUNJARO) 5 mg/0.5 mL pen injector Indications: Type 2 diabetes mellitus with stage 3achronic kidney disease, without long-term current use of insulin (HCC) Inject 5 mg subcutaneously one time a week. 6 mL 05/01/2024 07/30/2024 Active tirzepatide (MOUNJARO) 7.5 mg/0.5 mL pen injector (11 sources)Start: 06-25-2024 End: 63-89-2124shhydtjwtwq (MOUNJARO) 7.5 mg/0.5 mL pen injector Indications: Type 2 diabetes mellitus with stage 3a chronic kidney disease, without long-term current use of insulin (HCC) , Type 2 diabetes mellituswith peripheral neuropathy (HCC) Inject 7.5 mg subcutaneously one time a week. 2 mL 2 06/25/2024 08/21/2024 Discontinued (Dosage adjustment)Start: 06-25-2024 End: 83-89-0989ggkqvoznyou (MOUNJARO) 7.5 mg/0.5 mL pen injector Indications: Type 2 diabetes mellitus with stage 3a chronic kidney disease, without long-term current use of insulin (HCC) , Type 2 diabetes mellituswith peripheral neuropathy (HCC) Inject 7.5 mg subcutaneously one time a week. 2 mL 2 06/25/2024 09/23/2024 Activetobramycin 3 mg/ml ophthalmic solution (19 sources)Aminoglycoside AntibacterialStart: 40-16-9248nnijjoeqhm (TOBREX) 0.3 % ophthalmic solution Use 1 drop in the right eye as directed. 08/28/2024 Ac tiveStart: 08-28-2024 End: 06-75-8124rkug 0.3 drop(s) into the eye(s) every four hoursTobramycin 0.3 % drops Discontinued 2 DROPS EYE-RIGHT Every 4 hours 5 7 0 September 12, 2024 3:02pm December 18, 2024 10:19amStart: 08-28-2024 End: 48-85-7818irei 0.3 drop(s) into the eye(s) every four hoursTobramycin 0.3 % drops Active 2 DROPS EYE-RIGHT Every 4 hours 5 7 September 12, 2024 3:02pm triamcinolone acetonide 40 mg/ml injectable suspension (20 sources)CorticosteroidStart: 18-52-0845Nkekvnm-40 Jun, 20 mgStart: 64-58-0660Qckeusu-40 Nov, 40 mgStart: 32-68-3221Snaqz: 72-84-6668Xshwc: 13-87-1328Kkcemzb -40 mg Apr, 20 mgStart: 77-05-7722Chrni: 05-02-2020 Kenalog -40 mg Apr, 40 mgStart: 98-29-1729Jynal: 05-50-9797Ycggewq -40 mg August, 40 mgStart: 62-78-2794Yvkyp: 96-24-2030TMGMNHM - 10 mg Oct, 40 mgStart: 43-50-4522Eoxzo: 54-64-5314Wjjgwiw -40 mg Feb, 40 mg Start: 32-51-2689Tibxi: 81-57-1936Ssdofwu -40 mg Jan, 40 mg Problems Active Problems Problem ClassificationProblemDateDocumented DateEpisodic/ChronicAbdominal pain (20 sources)Unspecified abdominal pain; Translations: [Left lower quadrant pain] Onset: 06-08-2021 Resolved: 54-43-5057XingzpwlArggxbep reactions (15 sources)Contact dermatitis; Translations: [Unspecified contact dermatitis, unspecified cause]55-41-1788HsadfjzxUsdlpfd disorders (20 sources)Mixed anxiety and depressive disorder; Translations: [Other specified anxiety disorders]Onset: 05-21-2021 Resolved: 125068-76-2782OmivufeWgtncy (20 sources)Moderate persistent asthma with (acute) exacerbation; Translations: [Acute exacerbation of moderatepersistent asthma]Onset: 05-04-2021 Resolved: 61-75-3001LparpxkPxpheehs of urinary tract (20 sources)Kidney stone; Translations: [Calculus of kidney]Onset: 06-08-2021 Resolved: 09-37-3462AfjmqzlzShbelfn dysrhythmias (20 sources)Postural orthostatic tachycardia syndrome ; Translations: [Other specified cardiac arrhythmias]ChronicChronic kidney disease (1 source)Chronic kidney disease; Translations: [Stage 3a chronic kidney disease (HCC)]Onset: 88-08-0947Poswwmcqskc and hemorrhagic disorders (20 sources)Qualitative platelet disorder; Translations: [Qualitative platelet defects]Onset: 071768-79-7641HaaykynQmmohpln mellitus with complications (20 sources)Type 2 diabetes mellitus; Translations: [Uncontrolled type 2 diabetes with neuropathy]Onset: 737656-53-4509SxcgfsrThtofgqn mellitus without complication (2 sources)Diabetes mellitus without complication; Translations: [Type 2 diabetes mellitus with stage 3a chronic kidney disease, without long-term current use of insulin (HCC)]Onset: 45-88-1806Tsftrvayz of lipid metabolism (20 sources)Mixed hyperlipidemia; Translations: [Mixed hyperlipidemia]Onset: 596590-71-0747PvpjpurVghqakzndzsrdq and diverticulitis (20 sources)Diverticulitis; Translations: [Diverticulitis of intestine, part unspecified, without perforation or abscess without bleeding]Onset: 05-21-2021 Resolved: 648607-93-8819NnzdqdeF Codes: Fall (3 sources)Fall; Translations: [Unspecified fall, initial encounter]Onset: 158800-87-1181GesigviyT Codes: Natural/environment (18 sources)Dog bite - wound; Translations: [Bitten by dog, initial encounter] 20-85-5502TsgowdoeEvqgkrcaq hypertension (20 sources)Benign essential hypertension; Translations: [Essential (primary) hypertension]Onset: 135988-50-8418BvusdtoLnkkynqo of lower limb (1 source)Unspecified fracture of left foot, initial encounter for closed fractureEpisodicGenitourinary symptoms and ill-defined conditions (20 sources)Incontinence; Translations: [Mixed incontinence]Onset: 01-12-2022 28-16-4453QkwdhjiYecfuxwaubooc symptoms and ill-defined conditions (20 sources)Delay when starting to pass urine; Translations: [Nocturia]Onset: 643022-79-5212KgeaffpyWcsadwybylgh; infection of eye (except that caused by tuberculosis or sexually transmitteddisease) (4 sources)External hordeolum; Translations: [Hordeolum externum unspecified eye, unspecified eyelid]57-09-7225TerqyzfkIqoluziyb (4 sources)Influenza due to Influenza A virus; Translations: [Influenza due to other identified influenza virus with other respiratory manifestations] 83-26-1722ZzrwwwshNkigklyqxyrmw mental health disorders (14 sources)Crying; Translations: [Other symptoms and signs involving emotional state]72-63-1791EmgvjdfbBnfyivfnz of unspecified nature or uncertain behavior (1 source)Neoplasm of uncertain behavior, unspecifiedEpisodicNonmalignant breast conditions (1 source)Fibrocystic changes of bilateral breasts; Translations: [Diffuse cystic mastopathy of right breast]15-89-4234JskjcbpXnelvawitkwo breast conditions (5 sources)Pain of breast; Translations: [Mastodynia]EpisodicNutritional deficiencies (20 sources)Vitamin D deficiency; Translations: [Vitamin D deficiency, unspecified]Onset: 820486-28-5434VfwvuqiXroq wounds of extremities (20 sources)Dog bite of hand; Translations: [Open bite of right hand, initial encounter]50-07-8013WxkqnpezKlnavmxpkvjtue (20 sources)Degenerative joint disease of hand; Translations: [Primary osteoarthritis, unspecified hand]Onset: 12-29-2004 Resolved: 581043-60-7503PrxbcbbKhwjt acquired deformities (7 sources)Scoliosis deformity of spine; Translations: [Scoliosis, unspecified] 55-00-4784CiyiepdLjvgq acquired deformities (1 source)Scoliosis, unspecified; Translations: [Scoliosis, unspecified scoliosis type, unspecified spinal region]Onset: 96-48-1885IycwhbdCakej acquired deformities (2 sources)Spondylolisthesis; Translations: [Spondylolisthesis, cervical region] 70-30-8444VulwmyrlWmnxb bone disease and musculoskeletal deformities (1 source)Costal chondritis; Translations: [Chondrocostal junction syndrome [Tietze]]64-74-2381XfwzxegxTduql circulatory disease (8 sources)Labile blood pressure; Translations: [Other specified symptoms and signs involving the circulatory and respiratory systems]EpisodicOther circulatory disease (20 sources)Low blood pressure; Translations: [Hypotension, unspecified]Episodic Other circulatory disease (3 sources)Hypotension, unspecifiedOnset: 10-27-2021 Resolved: 26-34-2090XjqebbjeNktyj circulatory disease (3 sources)Chronic hypotension; Translations: [Other hypotension]EpisodicOther circulatory disease (3 sources)Other specified symptoms and signs involving the circulatory and respiratory systems; Translations:[Other symptoms involving respiratory system and chest]Onset: 346128-36-5699TfdhtftiPyelk circulatory disease (2 sources)Pulmonary congestion ; Translations: [Other specified symptoms and signs involving the circulatory and respiratory systems]96-09-2122LftueplyVilmy connective tissue disease (3 sources)Foot pain; Translations: [Pain in unspecified foot]EpisodicOther connective tissue disease (1 source)Pain in left finger(s)EpisodicOther connective tissue disease (1 source)Pain in left footEpisodicOther connective tissue disease (6 sources)Pain in left foot; Translations: [Pain in left foot]Onset: 05-03-2023 39-73-2294GwsxrzsvQqdxb connective tissue disease (16 sources)Thigh pain; Translations: [Pain in right thigh]12-95-0347Jgyywins Other connective tissue disease (4 sources)Neurological symptom; Translations: [Other symptoms and signs involving the nervous system]82-44-9588BanvvtnqNqlaq connective tissue disease (3 sources)Abnormal postural reflex; Translations: [Abnormal posture]07-26-2023 EpisodicOther connective tissue disease (15 sources)Pain in right lower limb; Translations: [Pain in right leg] 34-00-5117IbregviyWrbxi connective tissue disease (3 sources)Pain in right leg; Translations: [Pain in limb]17-90-4636Mdmcabdf Other connective tissue disease (2 sources)Bilateral weakness of upper limbs; Translations: [Other symptoms and signs involving the musculoskeletal system]69-41-1665NauddlzdLvchy connective tissue disease (2 sources)Trochanteric bursitis of right hip; Translations: [Trochanteric bursitis, right hip]10-95-7385CrcezpwtMblzi connective tissue disease (2 sources)Pain of right thigh; Translations: [Pain in right thigh]06-20-2023 EpisodicOther diseases of bladder and urethra (16 sources)Urethral zterbdxbt42-56-8031YveswgozHpwgs diseases of bladder and urethra (1 source)Male urethral stricture; Translations: [Unspecified urethral stricture, male, unspecified site]Onset: 78-05-1588KnvywtctTjkry ear and sense organ disorders (20 sources)Bilateral sensory hearing loss; Translations: [Sensorineural hearing loss, bilateral]Onset: 149739-67-8212VnamibyZmouz ear and sense organ disorders (3 sources)Otalgia, right earEpisodicOther ear and sense organ disorders (1 source)Impacted cerumen, unspecified earEpisodicOther ear and sense organ disorders (1 source)Impacted cerumen, right earEpisodicOther ear and sense organ disorders (14 sources)Wax in ear canal; Translations: [Impacted cerumen, left ear] 07-91-2243QnkmywahMslwc ear and sense organ disorders (4 sources)Impacted cerumen, left ear; Translations: [Impacted cerumen] 73-13-1129LbqpahgpKwoea eye disorders (6 sources)Abnormal saccadic eye movement; Translations: [Saccadic eye movements]74-22-1409DhgdrkdIwtrv eye disorders (5 sources)Abnormal ocular motility; Translations: [Other irregular eye movements]81-48-3306MtogzvrPayit eye disorders (1 source)Saccadic eye movements; Translations: [Abnormal saccadic eye movement] Onset: 92-13-2748MrlldcrVscaw eye disorders (1 source)Other irregular eye movements; Translations: [Pursuit movement deficiency]Onset: 89-65-4736MbtwhilUzdum eye disorders (4 sources)Cataract extraction status, unspecified eye; Translations: [Cataract extraction status]07-12-0301OntxfqnvEizuc gastrointestinal disorders (20 sources)Constipation; Translations: [Constipation, unspecified]Onset: 251383-81-5062LraptkweBupeu gastrointestinal disorders (3 sources)Diarrhea, unspecifiedOnset: 10-19-2021 Resolved: 27-42-6808FjtqppivSsvfz gastrointestinal disorders (1 source)Other specified symptoms and signs involving the digestive system and abdomenEpisodicOther gastrointestinal disorders (1 source)Constipation, unspecified; Translations: [Constipation, unspecified] 47-00-3908GhqeefxvVltxh hereditary and degenerative nervous system conditions (20 sources)Restless legs; Translations: [Restless legs syndrome]Onset: 213910-53-9936IczddemJepfr hereditary and degenerative nervous system conditions (11 sources)Restless legs syndrome; Translations: [Restless legs syndrome (RLS)] Onset: 08-12-2021 Resolved: 02-74-5729DxjhqpzHfnig hereditary and degenerative nervous system conditions (1 source)Resting tremor; Translations: [Other specified forms of tremor]Chronic Other hereditary and degenerative nervous system conditions (1 source)Sympathotonic orthostatic hypotension; Translations: [Multi-system degeneration of the autonomic nervous system]22-01-8383CyfoyxsOtrim hereditary and degenerative nervous system conditions (3 sources)Multisystem degeneration of autonomic nervous system; Translations: [Multi-system degeneration of the autonomic nervous system]56-09-3890Uvwycwx Other hereditary and degenerative nervous system conditions (1 source)Multi-system degeneration of the autonomic nervous system; Translations: [Unspecified disorder of autonomic nervous system]09-12-2024 ChronicOther injuries and conditions due to external causes (9 sources)History of fall; Translations: [History of falling]80-48-2528Uvavdbxh Other injuries and conditions due to external causes (3 sources)History of falling; Translations: [History of fall]73-70-6497Cvywrnmc Other liver diseases (20 sources)Steatosis of liver; Translations: [Fatty (change of) liver, not elsewhere classified]47-56-1334IzvyoisJbmez liver diseases (1 source)Fatty (change of) liver, not elsewhere classifiedChronicOther liver diseases (10 sources)Elevated liver enzymes level; Translations: [Abnormal levels of other serum enzymes]18-38-1552MwxawidjNesmg liver diseases (3 sources)Abnormal levels of other serum enzymes; Translations: [Other nonspecific abnormal serum enzyme levels]50-32-8923YcctbhpqNsvxy lower respiratory disease (1 source)Rib pain; Translations: [Pleurodynia]EpisodicOther lower respiratory disease (17 sources)Persistent cough; Translations: [Persistent cough]EpisodicOther nervous system disorders (20 sources)Carpal tunnel syndrome; Translations: [Carpal tunnel syndrome, unspecified upper limb]Onset: 322198-67-2967ZmqxgaoSbjci nervous system disorders (20 sources)Chronic pain; Translations: [Other chronic pain]Onset: 05-21-2021 15-61-9103GlhfvmrWhusi nervous system disorders (20 sources)Carpal tunnel syndrome of right wrist; Translations: [Carpal tunnel syndrome, right upper limb]01-70-7481ZpqugjwPtlwf nervous system disorders (20 sources)Carpal tunnel syndrome of left wrist; Translations: [Carpal tunnel syndrome, left upper limb]74-87-5230SqlzyfyRthbr nervous system disorders (20 sources)Carpal tunnel syndrome, left upper limb; Translations: [Carpal tunnel syndrome]Onset: 04-29-2021 Resolved: 47-56-7386JmjcmwfSfqbw nervous system disorders (20 sources)Carpal tunnel syndrome, right upper limb; Translations: [Carpal tunnel syndrome]Onset: 04-29-2021 Resolved: 98-49-9094DzhjwgfRvjsl nervous system disorders (2 sources)Small fiber neuropathy; Translations: [Polyneuropathy, unspecified] 86-16-9660LbunjyvQtnre nervous system disorders (5 sources)Neuropathy; Translations: [Polyneuropathy, unspecified]08-22-2024 ChronicOther nervous system disorders (1 source)Polyneuropathy, unspecified; Translations: [Mononeuritis of unspecified site]21-26-0718RxenbdjRcwpd nervous system disorders (4 sources)Skin sensation disturbance; Translations: [Unspecified disturbances of skin sensation]EpisodicOther nervous system disorders (20 sources)Pain in limb; Translations: [Other acute postprocedural pain]Onset: 12-15-2004 Resolved: 692564-11-2637NmomihxvXzkfc nervous system disorders (1 source)Paresthesia; Translations: [Paresthesia of skin]27-71-5860Uwccvlfh Other nervous system disorders (7 sources)Impairment of balance; Translations: [Other abnormalities of gait and mobility]29-62-7539DzfacrplFplmh nervous system disorders (1 source)Postoperative pain ; Translations: [Other acute postprocedural pain] 82-46-1682CxlbnxeiBhixh nutritional; endocrine; and metabolic disorders (2 sources)Body mass index 25-29 - overweight; Translations: [Overweight] 91-15-9620ZqwizkdvCraki nutritional; endocrine; and metabolic disorders (2 sources)Overweight in adulthood with body mass index of 25 or more but less than 30; Translations: [Body mass index (BMI) 27.0-27.9, adult]01-04-2024 EpisodicOther nutritional; endocrine; and metabolic disorders (1 source)Overweight; Translations: [Overweight (BMI 25.0-29.9)]Onset: 28-41-5506TmppwateXroey nutritional; endocrine; and metabolic disorders (1 source)Body mass index (BMI) 28.0-28.9, adult; Translations: [BMI 28.0-28.9,adult]Onset: 18-56-8603IkriyvadFrzqw nutritional; endocrine; and metabolic disorders (2 sources)Failure to lose weight; Translations: [Other symptoms and signs concerning food and fluid intake]03-32-9534JwblgxcdAtcpb screening for suspected conditions (not mental disorders or infectious disease) (20 sources)Abnormal findings on diagnostic imaging of breast; Translations: [Nonspecific abnormal findings on radiological and other examination of breast] Onset: 703210-45-1924WuzqqdwfIihwr skin disorders (20 sources)Easy bruising; Translations: [Other skin changes]Onset: 05-21-2021 17-56-1787UzdmhgtoJkkjm upper respiratory disease (20 sources)Allergic rhinitis; Translations: [Allergic rhinitis, unspecified] 74-59-0067CohtsvzNukro upper respiratory disease (20 sources)Nasal discharge; Translations: [Other specified disorders of nose and nasal sinuses]EpisodicOther upper respiratory disease (4 sources)Congestion of nasal sinus; Translations: [Nasal congestion]03-01-2024 EpisodicOther upper respiratory disease (5 sources)Hoarse; Translations: [Dysphonia]18-17-4836BpqgmfubJklfu upper respiratory disease (2 sources)Dysphonia; Translations: [Dysphonia]36-17-0201IyxfwlooRshzx upper respiratory infections (20 sources)Maxillary sinusitis; Translations: [Chronic maxillary sinusitis] ChronicOther upper respiratory infections (20 sources)Acute sinusitis; Translations: [Acute sinusitis, unspecified] EpisodicOtitis media and related conditions (5 sources)Unspecified mastoiditis, unspecified earEpisodicResidual codes; unclassified (1 source)Chills (without fever)EpisodicResidual codes; unclassified (8 sources)Other specified postprocedural states; Translations: [Personal history of surgery to other organs]EpisodicResidual codes; unclassified (18 sources)Bilateral lower limb edema; Translations: [Localized edema] 28-22-5357WbcweahrRmkdrjng codes; unclassified (1 source)Family history of breast cancer; Translations: [Family history of malignant neoplasm of breast]06-16-4913UjdzakxuLlpkuqmo codes; unclassified (1 source)Family history of malignant neoplasm of ovary; Translations: [Family history of malignant neoplasm of ovary]16-72-3739DhjbcgrfJyskaaqtxhf; intervertebral disc disorders; other back problems (20 sources)Cervical arthritis; Translations: [Unspecified inflammatory spondylopathy, cervical region]Onset: 336095-35-0535YlggswdLwlbilytnrj; intervertebral disc disorders; other back problems (20 sources)Cervical radiculopathy; Translations: [Radiculopathy, cervical region]Onset: 543689-58-3018IyjbyjemDzqtssr (6 sources)Loss of consciousness; Translations: [Syncope and collapse]Episodic Unclassified (1 source)Cough, unspecified; Translations: [Cough, unspecified]Onset: 60-61-5496Btakezzblrwt (1 source)Varicose veins of bilateral lower extremities with pain; Translations: [Varicose veins of bilaterallower extremities with pain]Onset: 06-27-2023 Unclassified (1 source)Puncture wound without foreign body of right hand, initial encounter; Translations: [Puncture woundwithout foreign body of right hand, initial encounter]Onset: 03-97-0632Arcukqwpbwrq (1 source)POTS (postural orthostatic tachycardia syndrome); Translations: [POTS (postural orthostatic tachycardia syndrome)]Onset: 79-41-1169Ijbghus tract infections (12 sources)Postinfective urethral stricture of female; Translations: [Postinfective urethral stricture, not elsewhere classified, female]Onset: 18-40-2062SbhgipkhCsxrlrvy veins of lower extremity (20 sources)Varicose veins of lower extremity; Translations: [Varicose veins of bilateral lower extremities with pain]40-42-1483Dtwgvsah Past or Other Problems Problem ClassificationProblemDateDocumented DateEpisodic/ChronicCardiac dysrhythmias (3 sources)Palpitations; Translations: [Palpitations]Onset: 19-64-7778Bbnxfgal Conditions associated with dizziness or vertigo (20 sources)Dizziness and giddiness; Translations: [Dizziness]Onset: 10-19-2021 Resolved: 76-99-1311NrcpbdftXmqudofdmt and other anemia (20 sources)Iron deficiency anemia; Translations: [Iron deficiency anemia, unspecified]Onset: 069320-93-8634VszytdelBcrlrnye; including migraine (3 sources)Headache; including migraineMalaise and fatigue (20 sources)Fatigue; Translations: [Other fatigue]Onset: EpisodicOther circulatory disease (20 sources)Orthostatic hypotension; Translations: [Orthostatic hypotension] Onset: 897729-75-0059TtdlmgvdShgxo circulatory disease (2 sources)Orthostatic hypotension; Translations: [Orthostatic hypotension] Onset: 05-32-4589IyjhcypnFplnj connective tissue disease (20 sources)Bursitis of hip; Translations: [Other bursitis of hip, unspecified hip]Onset: 117572-31-0210HsjmkhnoTvlwp connective tissue disease (20 sources)Pain in buttock; Translations: [Myalgia, other site]Onset: 694269-13-5765RqsjshpwKvykc connective tissue disease (20 sources)Trochanteric bursitis; Translations: [Trochanteric bursitis, right hip]Onset: 954339-13-4628QfffeoodJhfyr connective tissue disease (2 sources)Pain in left handOnset: 04-29-2021 Resolved: 48-50-4199KwlswiwvWdypt connective tissue disease (2 sources)Pain in right handOnset: 04-29-2021 Resolved: 50-81-8906XhnylteqMznid connective tissue disease (3 sources)Other symptoms and signs involving the musculoskeletal system; Translations: [Other musculoskeletalsymptoms referable to limbs]Onset: 249052-02-1978GyjuhuuvCdkuf connective tissue disease (1 source)Other symptoms and signs involving the nervous system; Translations: [Other symptoms and signs involving the nervous system]Onset: 88-89-6502Gmopdrea Other connective tissue disease (1 source)Trochanteric bursitis, right hip; Translations: [Trochanteric bursitis of right hip]Onset: 81-11-3557SaphxevfGbupw ear and sense organ disorders (20 sources)Tinnitus of right ear; Translations: [Tinnitus, right ear]Onset: 886320-15-3062SykdcthtCmxqk inflammatory condition of skin (1 source)Pruritus, unspecifiedOnset: 12-18-2021 Resolved: 35-46-9626SdcwnxspCmplz liver diseases (20 sources)Aspartate aminotransferase serum level raised; Translations: [Elevated AST (SGOT)]Onset: 939608-43-0167FujbmfzjToxjv lower respiratory disease (20 sources)Dyspnea on exertion; Translations: [Dyspnea, unspecified]Onset: 883186-59-3091KynafyipTucol lower respiratory disease (20 sources)Cough; Translations: [Cough]Onset: 333256-15-9548XxfzqgnzGrdpd nervous system disorders (20 sources)Lesion of ulnar nerve; Translations: [Lesion of ulnar nerve, unspecified upper limb]Onset: 12-15-2004 Resolved: 880650-33-3606UbdghofLhmdg non-traumatic joint disorders (20 sources)Pain in right hip joint; Translations: [Pain in right hip]Onset: 879000-35-3950CriapaecDhovn non-traumatic joint disorders (20 sources)Hip pain; Translations: [Pain in right hip]Onset: 03-21-2015 82-60-4533YwbojtgyKzdmz nutritional; endocrine; and metabolic disorders (20 sources)Abnormal weight gain; Translations: [Abnormal weight gain]Onset: 316252-51-5616KxotsovwAkecbnqx codes; unclassified (20 sources)Postmenopausal state; Translations: [Asymptomatic menopausal state] Onset: 951448-06-7261KyhpkfhvHtjaufgvsujz (1 source)Lumbar back pain M54.50Onset: 10-27-2021 Resolved: 40-85-6993Uznyvfrvpsnl (4 sources)Cough R05.9Unclassified (1 source)History of COVID-19 Z86.16Unclassified (1 source)Persistent cough R05.3Unclassified (1 source)Acute cough R05.1 Results Test NameValueInterpretationReference RangeFacilityAmbulatory Visit Summaryon 53-32-9359Jvuxetkgwd Visit SummaryAmbulatory Visit Summary HOLA DOUGLAS :1945 [...] Ryan LIVE MD Where: [facility] [address] [place] [address]- You Need to Schedule the Following Appointments Follow Up with Ryan LIVE MD, URL When: Where: [address] [place], [place] [address] [address] [address]- Medications What How Much When [...] pee (urinate). Urethral stric (more content not included)...NormalCritical Access Hospitaler [facility] CenterUrology Office/Clinic Noteon 03-36-4743Auxblut Office/Clinic NoteUrology Office/Clinic Note Chief Complaint IO [...] Fr. The Urethra was dilated to: 16-30 Tunisian with sounds. Specimens Removed: None Postoperative Information [...] [place], URL [address] [address]- Additional Instructions: 6 mos UD Patient Education Urethral Dilation I, Brie Gamez, personally scribed for Dr. Live on 02/12/2025 09:43:54. . Documentation recorded by the scribe, Brie Gamez, accurately reflects the services(s) I performed and decisions made by me. Authenticated by Dr. Live on 02/12/2025 09:46:57. Portions of this record may have been created with voice recognition artificial intelligence software, specifically [employer], [employer] and or [employer]. Substitutions may have occurred due to the [...] mg= 1 tab(s), Oral, Daily Vitamin D, [address] International_Unit, Oral, qWeek Zyrtec Allergies Avelox ( (more content not included)...[facility]Kitrick HospitalComment on above:Result Comment: Electronically Signed By: Ryan LIVE MD\.br\Date and Time Signed: 02/12/25 09:47 EST\.br\Electronically Co-Signed By: Brie Gamez\.br\Date and Time Co-Signed: 02/12/25 09:44 Shane 06-21-6768RGIT Office Visit (ENDOAV) HOLA DOUGLAS ([id number]) 1945 F Date Time Provider Department 01/18/25 11:00 AM KARL COOK During your visit today, we recorded the following information about you: Pulse Blood pressure Weight 74/minute 119/74 84.5 kg Karl CookHAN 01/18/2025 12:40 PM Signed Endocrinology Follow-up Recording using X[employer] software for draft documentation of the visit was discussed with the patient/authorized outside industrial sales representative; all questions welcomed and answered. Patient/authorized outside industrial sales representative agreed to proceed History of Present [...] Use with blood glucose (more content not included)...NormalSalem City HospitalALBUMIN/CREATININE RATIO, URINEon 37-71-0255Hmapfco DL <= 20 mg/L (U) [Mass/Vol]12.7 mg/LNormalSalem City HospitalComment on above:Order Comment: Specimen Type: URINE SPECIMENOrdering Facility: [facility] Address:[address] [place], [place] [address]Performed By: #### UACR ####[facility] LABIA [id number] [place] [address] [place] Albumin/Creatinine (U) [Mass ratio]8 mg/gNormal<30[facility] Comment on above:Order Comment: Specimen Type: URINE SPECIMENOrdering Facility: [facility] Address:[address] [place], [place] [address]Result Comment: Adult Male and Female Nephrotic Criteria: <30 mg/g is considered normal to mildly increased 30-300 mg/g is considered moderately increased >300 mg/g is considered severely increased KDIGO. (2013). KDIGO 2012 Clinical Practice Guideline for the Evaluation and Management of Chronic Kidney Disease. Official Journal of the International Society of Nephrology, 3(1), 1-150.Performed By: #### UACR ####[facility] LABIA [id number] [place] [id number] [place] OF AMERICACreatinine (U) [Mass/Vol]166.8 mg/rQDhmxjd13.0-300.0 [facility] on above:Order Comment: Specimen Type: URINE SPECIMENOrdering Facility: [facility] Address:[address] [place], [place] [address]Performed By: #### UACR ####[facility] LABCLIA [id number] [address] [address] [place] OF AMERICACholesterol in LDL Calc [Mass/Vol]Ordered By: Lorraine Oneill on 86-18-0781Puzjnetjrhn in LDL [Mass/Vol]104 mg/dLHigh<100[facility]erry HospitalComment on above:<100 mg/dL, Optimal 100-129 mg/dL, Near optimal/above optimal 130-159 mg/dL, Borderline high 160-189 mg/dL, High>189 mg/dL, Very highSecondary prevention optimal LDL Cholesterol levels are recom mended to be <70 mg/dLLDL cholesterol is calculated using the Browning-NIH equation.Cholesterol in VLDL Calc [Mass/Vol]Ordered By: Lorraine Oneill on 85-64-2514Bhndwzeccve in VLDL [Mass/Vol]26 mg/dL<30[facility]erry HospitalComprehensive metabolic 2000 panelon 90-33-1327Kvwuxou [Mass/Vol]4.3 g/dL Normal3.9-4.9CUniversity [facility] on above:Order Comment: Specimen Type: BLOOD SPECIMEN Ordering Facility: [facility] Address: [address] [place], [place] [address]Performed By: #### 06430-8 #### [facility] CLIA [id number] [address] [place], [place] [address]WOM [Catalytic activity/Vol]110 U/IXztezi99-056OtqzzttnfWVUMedicine Barnesville Hospital on above:Order Comment: Specimen Type: BLOOD SPECIMEN Ordering Facility[facility] Address: [address] [place], [place] [address]Performed By: #### 21607-8 #### [facility] CLIA [id number] [address] [place], [place] [address]BKT [Catalytic activity/Vol]23 U/LNormal7-38[facility] on above:Order Comment: Specimen Type: BLOOD SPECIMEN Ordering Facility: [facility] Address: [address] [place], [place] [address]Performed By: #### 35002-1 #### [facility] CLIA [id number] [address] [place], [place] [address]Cqzub gap [Moles/Vol]11 mmol/LNormal8-15[facility] on above:Order Comment: Specimen Type: BLOOD SPECIMEN Ordering Facility: [facility] Address: [address] [place], [place] [address]Performed By: #### 29177-6 #### [facility] CLIA [id number] [address] [place], [place] [address]OHU [Catalytic activity/Vol]27 U/ZBiyytp66-43BktwsxralWVUMedicine Barnesville Hospital on above:Order Comment: Specimen Type: BLOOD SPECIMEN Ordering Facility: [facility] Address: [address] [place], [place] [address]Performed By: #### 48995-1 #### [facility] CLIA [id number] [address] [place], [place] [address]Ycplclhrr [Mass/Vol]0.5 mg/dLNormal0.2-1.3CUniversity [facility]als [facility] on above:Order Comment: Specimen Type: BLOOD SPECIMEN Ordering Facility: [facility] Address: [address] [place], [place] [address]Performed By: #### 44149-5 #### [facility] CLIA [id number] [address] [place] [address]Wvmrnhe [Mass/Vol]9.9 mg/dLNormal8.5-10.2CUniversity [facility] on above:Order Comment: Specimen Type: BLOOD SPECIMEN Ordering Facility: [facility] Address: [address] [place], [place] [address]Performed By: #### 75942-9 #### [facility] CLIA [id number] [address] [place], [place] [address]Opklugqd [Moles/Vol]105 mmol/ZNleomm31-231PmgzcxixvWVUMedicine Barnesville Hospital on above:Order Comment: Specimen Type: BLOOD SPECIMEN Ordering Facility: [facility] Address: [address] [place], [place] [address]Performed By: #### 69797-7 #### [facility] CLIA [id number] [address] [place], [place] [address]TQ2 [Moles/Vol]25 mmol/YWvraol67-01IzexismbbSalem City Hospital Comment on above:Order Comment: Specimen Type: BLOOD SPECIMEN Ordering Facility: [facility] Address: [address] [place], [place] [address]Performed By: #### 95526-7 #### [facility] CLIA [id number] [address] [place], [place] [address]Lmfjyppwgd [Mass/Vol]1.24 mg/dLHigh0.58-0.96Salem City HospitalComment on above:Order Comment: Specimen Type: BLOOD SPECIMEN Ordering Facility: [facility] Address: [address] [place], [place] [address]Performed By: #### 34754-1 #### [facility] CLIA [id number] [address] [place] [address]fOCWuy SerPlBld CKD-EPI 166766 mL/min/1.73m???Low>=60Salem City HospitalComment on above:Order Comment: Specimen Type: BLOOD SPECIMEN Ordering Facility: [facility] Address: [address] [place], [place] [address]Result Comment: Estimated Glomerular Filtration Rate (eGFR) is [...] not accurately reflect actual GFR.Performed By: #### 64614-2 #### [facility] CLIA [id number] [address] [place] [address]Ndgdjqg [Mass/Vol]131 mg/hDWeal23-34YqkosunycSalem City Hospital Comment on above:Order Comment: Specimen Type: BLOOD SPECIMEN Ordering Facility: [facility] Address: [address] [place] [address]Qblcid Comment: The [place] Diabetes Association (ADA) provides guidance for cutoff [...] Standards of Medical Care in Diabetes 2016, [place] Diabetes Association. Diabetes Care. 2016.39(Suppl 1).Performed By: #### 40289-1 #### [facility] CLIA [id number] [address] [place], [place] [address]Izbuiwmfw [Moles/Vol]4.3 mmol/LNormal3.7-5.1CUniversity [facility]als [facility] on above:Order Comment: Specimen Type: BLOOD SPECIMEN Ordering Facility: [facility] Address: [address] [place], [place] [address]Performed By: #### 13131-6 #### [facility] CLIA [id number] [address] [place] [address]Akwabkx [Mass/Vol]6.9 g/dLNormal6.3-8.0[facility] on above:Order Comment: Specimen Type: BLOOD SPECIMEN Ordering Facility: [facility] Address: [address] [place], [place] [address]Performed By: #### 97115-0 #### [facility] CLIA [id number] [address] [place] [address]Knohwn [Moles/Vol]141 mmol/YNzbqug741-757EkalphlagWVUMedicine Barnesville Hospital on above:Order Comment: Specimen Type: BLOOD SPECIMEN Ordering Facility: [facility] Address: [address] [place], [place] [address]Performed By: #### 81095-6 #### [facility] CLIA [id number] [address] [place] [address]Eyjn nitrogen [Mass/Vol]17 mg/dLNormal7-21[facility] on above:Order Comment: Specimen Type: BLOOD SPECIMEN Ordering Facility: [facility] Address: [address] [place], [place] [address]Performed By: #### 77106-7 #### RYANNESIMEONRUIZ [facility] CLIA [id number] [address] [place] [address]Pitlzfdozi filtration rate [Volume Rate/Area] in Serum, Plasma or Blood by CreatinineOrdered By: Lorraine Oneill on 18-71-8433Fxyxfzozpp filtration rate [Volume Rate/Area] in Serum, Plasma or Blood by Cheneuvlgc94 mL/min/1.73m???Low>=60[facility] HospitalComformerly [facility] on above: Estimated Glomerular Filtration Rate (eGFR) [...] Estimated from glycated hemoglobin (Bld) [Mass/Vol]131 mg/dL [facility] Ferry HospitalComment on above:eAG: (Estimated average glucose) is a calculated value from HgbA1c and is outside industrial sales representative of the average blood glucose level in the last 2-3 month period.HbA1c (Bld)on 44-28-3780Yuxqggz glucose Estimated from glycated hemoglobin (Bld) [Mass/Vol]131 mg/dLNormal [facility] on above:Order Comment: Specimen Type: BLOOD SPECIMEN Ordering Facility: [facility] Address: [address] [place], [place] [address]Result Comment: eAG: (Estimated average glucose) is a calculated value from HgbA1c and is outside industrial sales representative of the average blood glucose level in the last 2-3 month period.Performed By: #### 12300-8 #### [facility] CLIA [id number] [address] [place] [address] [place] [address] [place] QXBEMSFZaD5f (Bld) [Mass fraction] 6.2 %High4.3-5.6CCleveland Clinic Euclid HospitalComformerly [facility] on above:Order Comment: Specimen Type: BLOOD SPECIMEN Ordering Facility: [facility] Address: [address] [place], [place] [address]Result Comment: [place] Diabetes Association guidelines indicate that patients with HgbA1c in the range 5.7-6.4% are at increased risk for development of diabetes, and intervention by lifestyle modification may be beneficial. HgbA1c greater or equal to 6.5% is considered diagnostic of diabetes.Performed By: #### 79152-2 #### [facility] CLIA [id number] [address] [place] [address] [place] [address] [place] AMERICAHemoglobin A1c percentage Ordered By: Lorraine Oneill on 13-02-9490PxO6z (Bld) [Mass fraction]6.2 %High 4.3-5.6FWright-Patterson Medical CenterComment on above:[place] Diabetes Association guidelines indicate that patients with HgbA1c in the range 5.7-6.4% are at increased risk for development of diabetes, and intervention by lifestyle modification may be beneficial. HgbA1c greater or equal to 6.5% is considered diagnostic of diabetes.Laboratory - Chemistry and Chemistry - challengeOrdered By: Lorraine Oneill on 80-42-0337Tycyjub [Mass/Vol]4.3 g/dL3.9-4.9Mart[facility] Ferry HospitalALP [Catalytic activity/Vol]110 U/R90-759XrswiktccMartins Ferry HospitalALT [Catalytic activity/Vol]23 U/L7-38[facility] HospitalAST [Catalytic activity/Vol]27 U/W91-17KyopremjjMartins Ferry HospitalBilirubin [Mass/Vol]0.5 mg/dL0.2-1.3FWright-Patterson Medical Center Calcium [Mass/Vol]9.9 mg/dL8.5-10.2FWright-Patterson Medical CenterChloride [Moles/Vol]105 mmol/M97-492NypypelutMartins Ferry HospitalCholesterol [Mass/Vol]165 mg/dL<200Mart[facility] Ferry HospitalComment on above:<200 mg/dL, Desirable 200-239 mg/dL, Borderline high>239 mg/dL, HighCholesterol in HDL [Mass/Vol]33 mg/dLLow>39[facility] Ferry HospitalComment on above: 40-59 mg/dL, Acceptable>59 mg/dL, High: Negative risk factor for coronary heart disease<40 mg/dL, Low: Positive risk factor for coronary heart diseaseCO2 [Moles/Vol]25 mmol/V55-07FnyzxfzqbMartins Ferry HospitalCreatinine [Mass/Vol] 1.24 mg/dLHigh0.58-0.96Mart[facility] Ferry HospitalFree T4 [Mass/Vol]1.0 ng/dL0.9-1.7FWright-Patterson Medical CenterGlucose [Mass/Vol]131 mg/dLHigh 74-99Mart[facility] Ferry HospitalComment on above:The [place] Diabetes Association (ADA) provides guidance for cutoff [...] diabetes.Reference: Standardsof Medical Care in Diabetes 2016, [place] Diabetes Association. Diabetes Care. 2016.39(Suppl 1). Potassium [Moles/Vol]4.3 mmol/L3.7-5.1FMercy Health St. Elizabeth Boardman Hospitalodium [Moles/Vol]141 mmol/C801-474GnephakrxMartins Ferry HospitalTriglyceride [Mass/Vol]158 mg/dLHigh<150Mart[facility] Ferry HospitalComment on above: <150 mg/dL, Normal 150-199 mg/dL, Borderline high 200-499 mg/dL, High>499 mg/dL, Very highTSH Qn5.150 m[IU]/LHigh0.270-4.200[facility] Urea nitrogen [Mass/Vol]17 mg/dL7-21Mart[facility] Ferry HospitalLipid 1996 panelon 37-64-9099Qgnavhanwfo [Mass/Vol]165 mg/dLNormal<200[facility] on above:Order Comment: Specimen Type: BLOOD SPECIMEN Order[facility] Address: [address] [place], [place] [address]Result Comment: <200 mg/dL, Desirable 200-239 mg/dL, Borderline high >239 mg/dL, HighPerformed By: #### HAN, 3024-7 #### [facility] CLIA [id number] [address] [place] [address] OF [place] #### 04375-6 #### [facility] CLIA [id number] [address] [place] [address] OF [facility] CLIA [id number] [address] [place] [address]Frtwmyvxiro in HDL [Mass/Vol]33 mg/dLLow>39[facility] on above:Order Comment: Specimen Type: BLOOD SPECIMEN Ordering Facility[facility] Address: [address] [place], [place] [address]Result Comment: 40-59 mg/dL, Acceptable >59 mg/dL, High: Negative risk factor for coronary heart disease <40 mg/dL, Low: Positive risk factor for coronary heart diseasePerformed By: #### HAN, 3024-7 #### [facility] CLIA [id number] [address] [place] [address] STATES [place] #### 96219-1 #### [facility] CLIA [id number] [address] [place] [address] OF [facility] CLIA [id number] [address] [place] [address]Hjewilipilm in LDL [Mass/Vol]104 mg/dLHigh<100[facility] on above:Order Comment: Specimen Type: BLOOD SPECIMEN Ordering [facility] Address: [address] [place], [place] [address]Result Comment: <100 mg/dL, Optimal 100-129 mg/dL, Near optimal/above optimal 130-159 mg/dL, Borderline high 160-189 mg/dL, High >189 mg/dL, Very high Secondary prevention optimal LDL Cholesterol levels are recommended to be <70 mg/dL LDL cholesterol is calculated using the Browning-NIH equation.Performed By: #### HAN, 3024-7 #### [facility] CLIA [id number] [address] [place] [address] #### 75787-5 #### [facility] CLIA [id number] [address] [place] [address] LAB CLIA [id number] [address] [place] [address]Kqqdlsgqlfk in LDL/Cholesterol in HDL [Mass ratio]3.15 {ratio} High<2.54[facility] on above:Order Comment: Specimen Type: BLOOD SPECIMEN Ordering [facility] Address: [address] [place], [place] [address]Result Comment: Reference: 1. National Cholesterol Education Program ATP III Guideline At-A-Glance Quick Desk Reference: National Heart, Lung, and Blood [place]. National Institutes of Health. 2001: NIH Publication No. 01-3305. 2. An International Atherosclerosis Society position paper: global recommendations for the management of dyslipidemia: executive summary, Atherosclerosis. 2014: 232(2):410-413.Performed By: #### HAN, 47 #### [facility] CLIA [id number] [address] [place] [address] #### 86149-6 #### [facility] CLIA [id number] [address] [place] [address] LAB CLIA [id number] [address] [place] [address]Epaxsvbfpet in VLDL [Mass/Vol]26 mg/dLNormal<30[facility] on above:Order Comment: Specimen Type: BLOOD SPECIMEN [facility] Address: [address] [place], [place] [address]Performed By: #### HAN 3023-7 #### [facility] CLIA [id number] [address] [place] [address] [place] #### 37293-9 #### [facility] CLIA [id number] [address] [place] [address] [place] [facility] CLIA [id number] [address] [place] [address]Anegidypwtt non HDL [Mass/Vol]132 mg/dLHigh<130[facility] on above:Order Comment: Specimen Type: BLOOD SPECIMEN [facility] Address: [address] [place], [place] [address]Result Comment: <130 mg/dL, Optimal 130-159 mg/dL, Near optimal/above optimal 160-189 mg/dL, Borderline high 190-219 mg/dL, High >219 mg/dL, Very high Secondary prevention optimal non HDL Cholesterol levels are recommended to be <100 mg/dLPerformed By: #### HAN 7 #### [facility] CLIA [id number] [address] [place] [address] [place] #### 57291-1 #### [facility] CLIA [id number] [address] [place], [place] [address] [place] [facility] CLIA [id number] [address] [place] [address]39[address]Emezxputdzq.total/Cholesterol in HDL [Mass ratio]5.00 {ratio} Normal<5.10[facility] on above:Order Comment: Specimen Type: BLOOD SPECIMEN [facility] Address: [address] [place], [place] [address]Performed By: #### HAN, 3023-7 #### [facility] CLIA [id number] [address] [place] [address] [place] #### 26360-6 #### [facility] CLIA [id number] [address] [place], [place] [address] [facility] OF [place] [facility] CLIA [id number] [address] [place] [address]65[address]YMZJDLJ TIME12 hrsNormalCUniversity Hospitals [facility]aut Medical Center on above:Order Comment: Specimen Type: BLOOD SPECIMEN [facility] Address: [address] [place], [place] [address]Performed By: #### HAN, 302-7 #### [facility] CLIA [id number] [address] [place] [address] [place] #### 70235-5 #### [facility] CLIA [id number] [address] [place] [address] [place] [facility] CLIA [id number] [address] [place], [place] [address]Triglyceride [Mass/Vol]158 mg/dLHigh<150[facility] on above:Order Comment: Specimen Type: BLOOD SPECIMEN [facility] Address: [address] [place], [place] [address]Result Comment: <150 mg/dL, Normal 150-199 mg/dL, Borderline high 200-499 mg/dL, High >499 mg/dL, Very highPerformed By: #### HAN, 3024-7 #### [facility] CLIA [id number] [address] [place], [place] [address] [place] #### 67494-5 #### [facility] CLIA [id number] [address] [place], [place] [address] [place] [facility] CLIA [id number] [address] [place] [address]Ru Panel InformationOrdered By: Lorraine Oneill on 11-28-2024 Urine Albumin/Creatinine Ratio8 mg/g<30Mart[facility] Ferry HospitalComment on above:Adult Male and Female Nephrotic Criteria:<30 mg/g is considered normal to mildly sllniqejy92-321nb/g is considered moderately increased>300 mg/g is considered severely increasedKDIGO. (2013). KDIGO 2012 Clinical Practice Guideline for the Evaluation and Management of Chronic Kidney Disease. Official Journal of the International Society of Nephrology, 3(1), 1-150.Urine Microalbumin mg/dl12.7 mg/LFWright-Patterson Medical CenterUrine Random Tnjqmglkcq330.8 mg/dL20.0-300.0[facility]erry HospitalCholesterol Ratio (LDL/HDL)3.15High<2.54Mart[facility] Ferry HospitalComment on above: Reference:1. National Cholesterol Education Program ATP III Guideline At-A-Glance Quick Desk Reference: National Heart, Lung, and Blood [place]. National Institutes of Health. 2001: NIH PublicationNo. 01-3305.2. An International Atherosclerosis Society position paper: global recommendations for the management of dyslipidemia: executive summary, Atherosclerosis. 2014: 232(2):410-413.Fasting Shdcvz05 [facility] HospitalNon-HDL Ltqgvsbkart417 mg/dLHigh<130Mart[facility]erry HospitalComment on above: <130 mg/dL, Optimal 130-159 mg/dL, Near optimal/above optimal 160-189 mg/dL, Borderline high 190-219 mg/dL, High>219 mg/dL, Very highSecondary prevention optimal non HDL Cholesterol levels are recommended to be <100 mg/dLProtein [Mass/volume] in Serum or PlasmaOrdered By: Lorraine Oneill on 54-01-2422Lfwxelz [Mass/Vol]6.9 g/dL6.3-8.0[facility]walk Memorial Hospitalerum or plasma anion gap determinationOrdered By: Lorraine Oneill on 56-60-5860Quxpr gap [Moles/Vol]11 mmol/L8-15Norwalk Memorial Hospitalerum or plasma total cholesterol/high density lipoprotein (HDL) cholesterol mass ratOrdered By: Lorraine Oneill on 25-62-3362Ledbvogwnld.total/Cholesterol in HDL [Mass ratio]5.00 {ratio}<5.10Martins Ferry HospitalT4 Free SerPl-mCncon 33-95-4059Njtv T4 [Mass/Vol]1.0 ng/dLNormal0.9-1.7CUniversity Hospitals [facility] Center on above: Order Comment: Specimen Type: BLOOD SPECIMEN [facility] Address: [address] [place], [place] [address]Performed By: #### HAN, 3024-7 #### [facility] CLIA [id number] [address] [place] [address] OF [place] #### 20708-1 #### [facility] CLIA [id number] [address] [place] [address] LAB CLIA [id number] [address] [place] [address]41NRY W/REFLEX FT4on 46-57-3452MKD Qn5.150 m[IU]/LHigh 0.270-4.200[facility] on above:Order Comment: Specimen Type: BLOOD SPECIMEN [facility] Address: [address] [place], [place] [address]Performed By: #### HAN, 3024-7 #### [facility] CLIA [id number] [address] [place] [address] OF [place] #### 32420-9 #### [facility] CLIA [id number] [address] [place] [address] OF [facility] CLIA [id number] [address] [place] [address] 78544IEGNdy 03-71-8835TPMTRjgntpsng (ENDOMN) HOLA DOUGLAS ([id number]) 1945 F Date Time Provider Department 11/13/24 [...] drawn noah. She can be reached at [phone]. Mone Parekh Advertising Director II Endocrinology AND Metabolism [place] [facility] F20 AND X20 Allergies As of Date: [...] Constipation [K59.00] 08/21/2024 Encounter Status:Closed by MONE APREKH on 11/13/24NoUniversity Hospitals TriPoint Medical CenterDeepa [id number] ([place]) HOLA DOUGLAS ([id number]) 1945 F Date Time Provider Department 10/17/24 [...] pharmacy. Patient says she will check [facility]. RN also suggested searching [facility]. Last, RN explained plan to send patient [...] 05/21/2021 Bruises easily [R2 (more content not included)...NormalSalem City HospitalCNPNon [id number] (SPNSMN) HOLA DOUGLAS ([id number]) 1945 F Date Time Provider Department 10/11/24 [...] appointment 4-6 weeks post procedure by calling [phone] Patient does not have any questions or [...] (SGOT) [R74.01] 11/18/2021 Dizzine (more content not included)...NormalSalem City Hospital1000019on [id number] ID: [id number] Author: YANE HODGSON RN Service: ? Author Type: Registered Nurse Type: [id number] Filed: 10/09/2024 09:26 Note Text: [facility] for [...] Improvement 0 20 40 60 80 100 Comments:NormalMarietta Memorial HospitalTORY PHYSICALon [id number] PHYSICALHNO ID: [id number] Author: KARLI ARMENDARIZ APRN.MATERIAL FLOW ENGINEER Service: ? Author Type: Nurse Practitioner Type: [...] lumbar region, without neurogenic claudication [M48.061] SIGNATURE: Karli Armendariz APRN.MATERIAL FLOW ENGINEER PATIENT NAME: Hola Douglas DATE: October 09, 2024 TIME: 7:32 AM PAGER:NormalSalem City HospitalNURSING PROGon 10-09-2024 NURSING PROGHNO ID: [id number] Author: YANE HODGSON, RN Service: Nursing Author Type: Registered Nurse Type: Nursing Progress Note Filed: 10/09/2024 09:57 Note Text: Other: 0950 - Dr Cohen came to bedside to assure patient her feelings of pain and numbness were a common side effect and should get better with time.Normal Salem City HospitalOPERATIVE NOon 13-28-6769FJQXIYRGT NOHNO ID: [id number] Author: ZAK COHEN DO Service: Physical Medicine AND Rehabilitation Author Type: Physician Type: Operative Report Filed: 10/09/2024 09:12 Note Text: PROCEDURE REPORT Surgery/Procedure Date: October 09, 2024 Interventionalist: Zak Cohen DO Procedure(s): Right L3-4 and L4-5 transforaminal epidural steroid injections Pre-Op/Pre-Procedure Diagnosis: Lumbar spinal stenosis with radiculopathy Post-Op Diagnosis: same SUBJECTIVE: Hola Douglas is a 79 year old female, who presents to the [facility] ambulatory surgery center for a right L3-L4 and L4-L5 transforaminal epidural steroid injection. 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 Pain is right [...] discharged home in stable condition. Zak Cohen [facility] [id number] Visit (SPSNAV) HOLA DOUGLAS ([id number]) 1945 F Date Time Provider Department 09/27/24 [...] knee BIOPSY ROSSY (more content not included)...NormalAdena Regional Medical CenterPNon [id number] (SPNSMN) HOLA DOUGLAS ([id number]) 1945 F Date Time Provider Department 09/26/24 ZAK COHEN SPNSMN During your visit today, we recorded the following information about you: Sofiya Haynes LPN 09/26/2024 10:55 AM Signed Phoned patient and spoke with patient to confirm appointment for Hola Douglas for spine procedure on 10/09/24. Patient notified that [facility] will call patient the night before with the time to arrive for injection. Patient verbalized understanding of the following: -Provided education on spine procedure and answered questions related to spine injection procedure. -Financial Operations Consultant is needed to drive patient home: Yes, and patient aware hearse driver will need to stay for procedure [...] take morning diabetes medication. Patient given number [phone], spine injections schedulers, if there is any need to reschedule/ change appointment during normal business hours. Active MyChart users were informed to read [employer] procedure instructions prior to appointment. AMBULATORY PATIENT [...] insufficiency [E55.9] 01/11/2014 (more content not included)...Normal [facility] HospitalCNPNon [id number] (SPNSMN) HOLA DOUGLAS ([id number]) 1945 F Date Time Provider Department 09/25/24 ZAK COHEN SPNSMN During your visit today, we recorded the following information about you: Sofiya Haynes LPN 09/25/2024 12:16 PM Signed [employer] message sent to patient with Procedure Instructions. [...] 08/21/2024 Encounter Status:Closed by SOFIYA HAYNES on 09/25/24[facility] [id number] Visit (SPNMMN) HOLA DOUGLAS ([id number]) 1945 F Date Time Provider Department 09/11/24 9:40 AM STEVE WAGONER [facility] During your visit today, we recorded the following information about you: Pulse Blood pressure Weight Height 79/minute 121/70 86.2 kg 1.727 m Steve Wagoner MD 09/11/2024 10:21 AM Signed [facility] Established Visit CC: low back [...] AVELOX (MOXIFLOXACIN HCL) (more content not included)...NormalAdena Regional Medical CenterOVon [id number] Visit (ELIZABETH) HOLA DOUGLAS ([id number]) 1945 F Date Time Provider Department 08/29/24 1:15 PM DA KING During your visit today, we recorded the following information about you: Pulse Respiration Blood pressure Weight 83/minute 12/minute 110/60 86.2 kg Height 1.727 m Da King MD 08/29/2024 6:26 PM Signed [facility] [place] In[facility] Cotton Department of Cardiovascular Medicine SECTION OF CARDIOVASCULAR IMAGING OUTPATIENT VISIT DATE 08/29/2024 OUTPATIENT VISIT TYPE ESTABLISHED PRIMARY CARE PHYSICIAN: Erich Gillis DO [address] [place] [id number] CHIEF COMPLAINT: CV health management visit. 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 Patient has been identified by name and birthdate. Duration of symptoms: N/A Person calling: self Call patient at: on cell [phone] (home) [phone] (cell) Was an appointment scheduled: No Closing statement: Results or non-symptom based questions: Thank you for calling [facility], your call will be returned within the next business day. Edith Granados MA 08/28/2024 12:01 PM Signed Pharmacy updated. Most recent Endocrinology visit: Last encounter Visit on 08/21/2024 (with Lorraine Oneill) 12/23/2022 in [facility] with LORRAINE ONEILL for Well controlled type 2 diabetes mellitus with neurological manifestations (HCC) 05/02/2023 in [facility] with KARL COOK for Type 2 diabetes mellitus with stage 3a chronic kidney disease, without long-term current use of insulin (HCC) 06/23/2023 in [facility] with LORRAINE NOEILL for Type 2 diabetes mellitus with stage 3a chronic kidney disease, without long-term current use of insulin (HCC) 10/26/2023 in [facility] with KARL COOK for Type 2 diabetes mellitus with stage 3a chronic kidney disease, without long-term current use of insulin (HCC) 01/19/2024 in [facility] with LORRAINE ONEILL for Type 2 diabetes mellitus with stage 3a chronic kidney disease, without long-term current use of insulin (HCC) 06/25/2024 in [facility] with KARL COOK for Type 2 diabetes mellitus with stage 3a chronic kidney disease, without long-term current use of insulin (HCC) 08/21/2024 in [facility] with LORRAINE ONEILL for Type 2 diabetes mellitus with stage 3a chronic kidney disease, without long-term current use of insulin (HCC) Upcoming Endocrinology Appointments - Next 365 Days Visit Type Date Time Department EST SORAYA PATIENT 10/17/2024 11:00 AM ENDO DIAB ED [facility] REJ EST SORAYA PATIENT 01/18/2025 11:00 AM ENDO [facility] REJ EST SORAYA PATIENT 08/21/2025 2:40 PM [facility] Requested Prescriptions Pending Prescriptions Disp Refills tirzepatide [...] once daily. - tobramy (more content not included)...[facility] Ambulatory Visit Summaryon [id number] Visit SummaryAmbulatory Visit Summary HOLA DOUGLAS :1945 [...] APRN, Yu Torre Where: [facility] [address] [place] [address] [place] [address]- You Need to Schedule the Following Appointments Follow Up with HIRO BRICENO, Ryan Holland, ANGELO When: Where: [address] [place] [address]- Medications What How Much When Instructions Unchanged [...] difficult to pee (more content not included)... [facility] HospitalCNOVon [id number] Visit (ENDOAV) STELLAHOLA ([id number]) 1945 F Date Time Provider Department 08/21/24 [...] - Glucose Monitoring Test Supplies Blood-Glucose Sensor (HotPads G7 SENSOR) nimesh Change sensor every 10 [...] DME - Insulin Needl (more content not included)...[facility] HospitalGLOOKO ON DEMANDon 68-39-4032Pdjzmmz by an unspecified provider.[facility] DaytonUrology Office/Clinic Noteon 68-11-5787Cvvgvyq Office/Clinic NoteUrology Office/Clinic Note Chief Complaint IO [...] channel. The Urethra was dilated to: 16-30 Tunisian with sounds. Specimens Removed: None Postoperative Information [...] well having tight urethra at about 20 Tunisian. No bleeding upon dilation to 30 Tunisian. She will monitor symptomatology and see us back in about 6 months. Follow-up With When Contact Information HIRO BRICENO, Ryan Holland, URL [address] [place] [id number]- Additional Instructions: 6 mos for IO UD Patient Education Urethral Dilation I, Brie Gamez, personally scribed for Dr. Live on 08/21/2024 10:13:00. . Documentation recorded by the scribe, Brie Gamez, accurately reflects the services(s) I performed and decisions made by me. Authenticated by Dr. Live on 08/21/2024 10:18:36. Portions of this record may have been created with voice recognition artificial intelligence software, specifically [employer], [employer] and or [employer]. Substitutions may have occurred due to the [...] Daily pravastatin 20 m (more content not included)...[facility] Comment on above:Result Comment: Electronically Signed By: Ryan LIVE MD\.br\Date and Time Signed: 08/21/24 10:19 EDT\.br\Electronically Co-Signed By: Brie Gamez\.br\Date and Time Co-Signed: 08/21/24 10:17 EDTCNPNon [id number] (SPNSMN) HOLA DOUGLAS ([id number]) 1945 F Date Time Provider Department 08/16/24 ZAK COHENMN During your visit today, we [...] Reason for Visit: Follow Up Phone Call [3662] Cmt: Post Injection Prescriptions as of 08/16/2024 [...] 06/26/2024 Encounter Status:Closed by SOFIYA HAYNES on 08/16/24[facility]1000019on [id number] ID: [id number] Author: RAYMOND CANTU RN Service: ? Author Type: Registered Nurse Type: [id number] Filed: 08/14/2024 10:22 Note Text: [facility] [...] Improvement 0 20 40 60 80 100 Comments:NormalMarietta Memorial HospitalTORY PHYSICALon 49-53-8538PPMFSJT PHYSICALHNO ID: [id number] Author: AFRICA BELTRAN APRN.MATERIAL FLOW ENGINEER Service: ? Author Type: Nurse Practitioner Type: [...] Start after your steroid injection. Blood-Glucose Sensor (HotPads G7 SENSOR) nimesh Change sensor every 10 [...] NAME: Hola Douglas DATE: 08/14/2024 TIME: 9:21 AMNormalSalem City HospitalOPERATIVE NOon 15-06-8803OUGWIFOFH NOHNO ID: [id number] Author: ZAK COHEN DO Service: Physical Medicine AND Rehabilitation Author Type: Physician Type: Operative Report Filed: 08/14/2024 10:10 Note Text: PROCEDURE REPORT Surgery/Procedure Date: August 14, 2024 Interventionalist: Zak Cohen DO Procedure(s): L3-4 interlaminar epidural steroid injection Pre-Op/Pre-Procedure Diagnosis: Lumbosacral spondylosis with radiculopathy Post-Op Diagnosis: same SUBJECTIVE: Hola Douglas is a 79 year old female who presents to [facility] ambulatory surgery center for a Lumbar epidural steroid injection. 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 Pain is right [...] op instructions reviewed with patient. Zak Cohen [facility] Systemon 13-89-8541TNBR Telephone (SPNSMN) HOLA DOUGLAS ([id number]) 1945 F Date Time Provider Department 08/03/24 ZAK COHENMN During your visit today, we recorded the following information about you: Sofiya Haynes LPN 08/03/2024 4:41 PM Signed Phoned patient and spoke with patient to confirm appointment for Hola Douglas for spine procedure on 08/14/24. Patient notified that [facility] will call patient the night before with the time to arrive for injection. Patient verbalized understanding of the following: -Provided education on spine procedure and answered questions related to spine injection procedure. -Financial Operations Consultant is needed to drive patient home: Yes, patient aware hearse driver will need to stay for procedure [...] take morning diabetes medication. Patient given number [phone], spine injections schedulers, if there is any [...] one time a week. - Blood-Glucose Sensor (HotPads G7 SENSOR) nimesh Change sensor every 10 [...] [M25.551] 03/21/2015 Greater trochanteric (more content not included)...NormalSalem City HospitalCNPNon [id number] (JUANMN) HOLA DOUGLAS ([id number]) 1945 F Date Time Provider Department 07/31/24 ZAK COHEN During your visit today, we recorded the following information about you: Sofiya Haynes LPN 07/31/2024 12:00 PM Signed [employer] message sent to patient with Procedure Instructions. [...] one time a week. - Blood-Glucose Sensor (HotPads G7 SENSOR) nimesh Change sensor every 10 [...] 06/26/2024 Encounter Status:Closed by SOFIYA HAYNES on 07/31/24NormalCCleveland Clinic Euclid HospitalALBUMIN/CREATININE RATIO, URINEon 51-56-2401Xxgxjar DL <= 20 mg/L (U) [Mass/Vol]17.4 mg/LNormalWVUMedicine Barnesville Hospital on above:Order Comment: Specimen Type: URINE SPECIMEN Ordering Facility: [facility] Address: [address] [place], [place] [address]Performed By: #### UACR #### [facility] CLIA [id number] [address] [place] [address] [place] AMERICAAlbumin/Creatinine (U) [Mass ratio]5 mg/gNormal<30[facility] on above:Order Comment: Specimen Type: URINE SPECIMEN Ordering Facility: [facility] Address: [address] [place], [place] [address]Result Comment: Adult Male and Female Nephrotic Criteria: <30 mg/g is considered normal to mildly increased 30-300 mg/g is considered moderately increased >300 mg/g is considered severely increased KDIGO. (2013). KDIGO 2012 Clinical Practice Guideline for the Evaluation and Management of Chronic Kidney Disease. Official Journal of the International Society of Nephrology, 3(1), 1-150.Performed By: #### UACR #### [facility] CLIA [id number] [address] [place] [address] [place] AMERICACreatinine (U) [Mass/Vol] 328.5 mg/qMJpgk72.0-300.0[facility] on above:Order Comment: Specimen Type: URINE SPECIMEN Ordering Facility: [facility] Address: [address] [place], [place] [address]Performed By: #### UACR #### [facility] CLIA [id number] [address] [place] [address] [place] AMERICACholesterol in LDL Calc [Mass/Vol]on 72-74-1934Jokzihsajhl in LDL [Mass/Vol]Cholesterol in LDL [Mass/volume] in Serum or Plasma by calculation<100[facility] Ferry HospitalComment on above:<100 mg/dL, Optimal 100-129 mg/dL, Near optimal/above optimal 130-159 mg/dL, Borderline high 160-189 mg/dL, High>189 mg/dL, Very highSecondary prevention optimal LDL Cholesterol levels are recommended to be < 70 mg/dLCholesterol in VLDL Calc [Mass/Vol]on 87-55-0325Tifbtnmdfok in VLDL [Mass/Vol]Cholesterol in VLDL [Mass/volume] in Serum or Plasma by calculation<30 [facility] HospitalGlucose mean value [Mass/volume] in Blood Estimated from glycated hemoglobinon 01-66-3018Whzelef glucose Estimated from glycated hemoglobin (Bld) [Mass/Vol]Glucose mean value [Mass/volume] in Blood Estimated from glycated hemoglobinMartins Ferry HospitalComment on above:eAG: (Estimated average glucose) is a calculated value from HgbA1c and is outside industrial sales representative of the average blood glucose level in the last 2-3 month period. HbA1c (Bld)on 66-41-6408Qfojhjz glucose Estimated from glycated hemoglobin (Bld) [Mass/Vol]137 mg/dLNormalCUniversity Hospitals Conneaut [facility] Center on above:Order Comment: Specimen Type: BLOOD SPECIMEN Ordering Facility: [facility] Address: [address] [place], [place] [address]Result Comment: eAG: (Estimated average glucose) is a calculated value from HgbA1c and is outside industrial sales representative of the average blood glucose level in the last 2-3 month period.Performed By: #### 56292-1 #### [facility] CLIA [id number] [address] [place] [address] [place] HXGLDIOTnQ4q (Bld) [Mass fraction] 6.4 %High4.3-5.6[facility] Clinic ClevelandComment on above:Order Comment: Specimen Type: BLOOD SPECIMEN Ordering Facility: [facility] Address: [address] [place], [place] [address]Result Comment: [place] Diabetes Association guidelines indicate that patients with HgbA1c in the range 5.7-6.4% are at increased risk for development of diabetes, and intervention by lifestyle modification may be beneficial. HgbA1c greater or equal to 6.5% is considered diagnostic of diabetes.Performed By: #### 92442-0 #### [facility] CLIA [id number] [address] [place] [address] [place] [address] [place] [facility] HOSPITALHemoglobin A1c percentageon 87-46-0020KmX9f (Bld) [Mass fraction]Hemoglobin A1c percentageHigh4.3-5.6 [facility]erry HospitalComment on above:[place] Diabetes Association guidelines indicate that patients with HgbA1c in the range 5.7-6.4% are at increased risk for development of diabetes, and intervention by lifestyle modification may be beneficial. HgbA1c greater or equal to 6.5% is considered diagnostic of diabetes.Laboratory - Chemistry and Chemistry - challengeon 41-64-5658Rpjfijy [Mass/Vol]4.2 g/dL3.9-4.9[facility] Calcium [Mass/Vol]9.4 mg/dL8.5-10.2FWright-Patterson Medical CenterChloride [Moles/Vol]105 mmol/P24-109KhilbnevlMartins Ferry HospitalCholesterol [Mass/Vol]162 mg/dL<200Mart[facility]erry HospitalComment on above:<200 mg/dL, Desirable 200-239 mg/dL, Borderline high>239 mg/dL, HighCholesterol in HDL [Mass/Vol]38 mg/dLLow>39[facility]erry HospitalComment on above: 40-59 mg/dL, Acceptable>59 mg/dL, High: Negative risk factor for coronary heart disease<40 mg/dL, Low: Positive risk factor for coronary heart diseaseCO2 [Moles/Vol]24 mmol/Q74-32SldnhfahbMartins Ferry HospitalCreatinine [Mass/Vol] 1.06 mg/dLHigh0.58-0.96[facility] Ferry HospitalGlucose [Mass/Vol]123 mg/jIKfpu14-18BadsxndcyMartins Ferry HospitalComment on above:The [place] Diabetes Association (ADA) provides guidance for cutoff [...] diabetes.Reference: Standardsof Medical Care in Diabetes 2016, [place] Diabetes Association. Diabetes Care. 2016.39(Suppl 1). Potassium [Moles/Vol]4.0 mmol/L3.7-5.1FMercy Health St. Elizabeth Boardman Hospitalodium [Moles/Vol]141 mmol/L282-412FzysuvopoMartins Ferry HospitalTriglyceride [Mass/Vol]137 mg/dL<150Mart[facility] Ferry HospitalComment on above:<150 mg/dL, Normal 150-199 mg/dL, Borderline high 200-499 mg/dL, High>499 mg/dL, Very highTSH Qn3.430 m[IU]/L0.270-4.200Mart[facility] Ferry HospitalUrea nitrogen [Mass/Vol]17 mg/dL7-21Martins Ferry HospitalLipid 1996 panel on 90-27-8937Eyjmyxuuvyu [Mass/Vol]162 mg/dLNormal<200[facility] Comment on above:Order Comment: Specimen Type: BLOOD SPECIMENOrdering Facility: [facility] Address:[address] [place], [place] [address]Result Comment: <200 mg/dL, Desirable 200-239 mg/dL, Borderline high >239 mg/dL, HighPerformed By: #### 3016-3 ####[facility]CLIA [id number] [place] [address] [place]#### 84557-4 ####[facility] LABCLIA [id number] [address] LABCLIA [id number] [place], [place] [address]Jfrnvebchdn in HDL [Mass/Vol]38 mg/dLLow>39[facility] Comment on above:Order Comment: Specimen Type: BLOOD SPECIMENOrdering Facility: [facility] Address:[address] [place], [place] [address]Result Comment: 40-59 mg/dL, Acceptable >59 mg/dL, High: Negative risk factor for coronary heart disease <40 mg/dL, Low: Positive risk factor for coronary heart diseasePerformed By: #### 3016-3 ####[facility] LABCLIA [id number] [place] [address] [place]#### 31919-3 ####[facility] LABCLIA [id number] [address] LABCLIA [id number] [place], [place] [address]Akzjuujmhbt in LDL [Mass/Vol]97 mg/dLNormal<100[facility] HospitalComment on above:Order Comment: Specimen Type: BLOOD SPECIMENOrdering Facility: [facility] Address:[address] [place], [place] [address]Result Comment: <100 mg/dL, Optimal 100-129 mg/dL, Near optimal/above optimal 130-159 mg/dL, Borderline high 160-189 mg/dL, High >189 mg/dL, Very high Secondary prevention optimal LDL Cholesterol levels are recommended to be < 70 mg/dLPerformed By: #### 3016-3 ####[facility] LABCLIA [id number] [place] [address] [place]#### 94724-9 ####[facility] LABCLIA [id number] [address] LABCLIA [id number] [place], [place] [address]Aolmgxywdzb in LDL/Cholesterol in HDL [Mass ratio]2.55 {ratio}High<2.54 [facility] City HospitalComment on above:Order Comment: Specimen Type: BLOOD SPECIMENOrdering Facility: [facility] Address:[address] [place], [place] [address]Result Comment: Reference: 1. National Cholesterol Education Program ATP III Guideline At-A-Glance Quick Desk Reference: National Heart, Lung, and Blood [place]. National Institutes of Health. 2001: NIH Publication No. 01-3305. 2. An International Atherosclerosis Society position paper: global recommendations for the management of dyslipidemia: executive summary, Atherosclerosis. 2014: 232(2):410-413.Performed By: #### 3016-3 ####[facility] LABCLIA [id number] [place] [address] [place]#### 55944-2 ####[facility] LABCLIA [id number] [address] LABCLIA [id number] [place], [place] [address]Onsdoopbaci in VLDL [Mass/Vol]27 mg/dLNormal<30[facility] HospitalComment on above:Order Comment: Specimen Type: BLOOD SPECIMENOrdering Facility: [facility] Address:[address] [place], [place] [address]Performed By: #### 3016-3 ####[facility] LABCLIA [id number] [place] [address] [place]#### 04408-6 ####[facility] LABCLIA [id number] [address] LABCLIA [id number] [place], [place] [address]Szusevsaubf non HDL [Mass/Vol]124 mg/dLNormal<130[facility] Comment on above:Order Comment: Specimen Type: BLOOD SPECIMENOrdering Facility: [facility] Address:[address] [place] [id number] Comment: <130 mg/dL, Optimal 130-159 mg/dL, Near optimal/above optimal 160-189 mg/dL, Borderline high 190-219 mg/dL, High >219 mg/dL, Very high Secondary prevention optimal non HDL Cholesterol levels are recommended to be <100 mg/dLPerformed By: #### 3016-3 ####[facility] LABCLIA [id number] [place] [address] [place]#### 53790-8 ####[facility] LABCLIA [id number] [address] LABCLIA [id number] [place], [place] [address]Ttuontsahkq.total/Cholesterol in HDL [Mass ratio]4.26 {ratio}Normal<5.10 [facility] on above:Order Comment: Specimen Type: BLOOD SPECIMENOrdering Facility: [facility] Address:[address] [place], [place] [address]Performed By: #### 3016-3 ####[facility] LABCLIA [id number] [place] [address] [place]#### 23247-5 ####[facility] LABCLIA [id number] [place] [id number] [facility] LABCLIA [id number] [place], [place] [address]KQDVBWD TIME12 hrsNoFayette County Memorial Hospital on above:Order Comment: Specimen Type: BLOOD SPECIMENOrdering Facility: [facility] Address:[address] [place], [place] [address]Performed By: #### 3016-3 ####[facility] LABCLIA [id number] [place] [address] [place]#### 64052-6 ####[facility] LABCLIA [id number] [address] LABCLIA [id number] [place], [place] [address]Ivtzdnszfnkv [Mass/Vol]137 mg/dLNormal<150 [facility] HospitalComment on above:Order Comment: Specimen Type: BLOOD SPECIMENOrdering Facility: [facility] Address:[facility] [place], [place] [address]Result Comment: <150 mg/dL, Normal 150-199 mg/dL, Borderline high 200-499 mg/dL, High >499 mg/dL, Very highPerformed By: #### 3016-3 ####[facility] LABCLIA [id number] [address] [place]#### 60273-5 ####[facility] LABCLIA [id number] [place] [id number] [facility] LABCLIA [id number] [place], [place] [address]Jv Panel Informationon 28-04-0789Mylmy Albumin/Creatinine Ratio5 mg/g<30 [facility] Ferry HospitalComment on above:Adult Male and Female Nephrotic Criteria:<30 mg/g is considered normal to mildly dzabvocyg31-652em/g is considered moderately increased>300 mg/g is considered severely increasedKDIGO. (2013). KDIGO 2012 Clinical Practice Guideline for the Evaluation and Management of Chronic Kidney Disease. Official Journal of the International Society of Nephrology, 3(1), 1-150.Urine Microalbumin mg/dl17.4 mg/LFWright-Patterson Medical CenterUrine Random Jbfyqaoadp875.5 mg/dLHigh 20.0-300.0Mart[facility] Ferry HospitalCholesterol Ratio (LDL/HDL)2.55High <2.54Martins Ferry HospitalComment on above:Reference:1. National Cholesterol Education Program ATP III Guideline At-A-Glance Quick Desk Referen ce: National Heart, Lung, and Blood [place]. National Institutes of Health. 2001: NIH PublicationNo. 01-3305.2. An International Atherosclerosis Society position paper: global recommendations for the management of dyslipidemia: executive summary, Atherosclerosis. 2014: 232(2):410-413.Estimated GFR (CKD-EPI) 54 mL/min/1.73m???Low>=60Martins Ferry HospitalComment on above: Estimated Glomerular Filtration Rate (eGFR) is calculated using the 2020 CKD-EPI creatinine equation. This equation utilizes serum creatinine, sex, and age as parameters. The creatinine assay has traceable calibration to isotope dilution- mass spectrometry. Refer to KDIGO guidelines for clinical interpretation. In patients with unstable renal function, e.g. those with acute kidney injury, the eGFRmay not accurately reflect actual GFR.Fasting Szrwwu41 hrsMartins Ferry HospitalNon-HDL Iwgdgqhstvz745 mg/dL<130[facility] Comment on above:<130 mg/dL, Optimal 130-159 mg/dL, Near optimal/above optimal 160-189 mg/dL, Borderline high 190-219 mg/dL, High>219 mg/dL, Very highSecondary prevention optimal non HDL Cholesterol levels are recommended to be <100 mg/dL Phosphorus Level3.0 mg/dL2.7-4.8Mart[facility] Ferry HospitalRenal function 2000 panelon 22-45-5171Tiuiigr [Mass/Vol]4.2 g/dLNormal3.9-4.9CUniversity Hospitals Conneaut Medical Center on above:Order Comment: Specimen Type: BLOOD SPECIMEN Ordering Facility: [facility] Address: [address] [place], [place] [address]Performed By: #### 40072-2 #### [facility] CLIA [id number] [address] [place] [address] 52231Zxgwi gap [Moles/Vol]12 mmol/LNormal8-15[facility] HospitalComformerly [facility] on above:Order Comment: Specimen Type: BLOOD SPECIMEN Ordering Facility: [facility] Address: [address] [place], [place] [address]Performed By: #### 32548-7 #### [facility] CLIA [id number] [address] [place] [address] 09043Tqsthyy [Mass/Vol]9.4 mg/dLNormal8.5-10.2CUniversity Hospitals Conneaut Medical Center on above:Order Comment: Specimen Type: BLOOD SPECIMEN Ordering Facility: [facility] Address: [address] [place], [place] [address]Performed By: #### 69058-0 #### [facility] CLIA [id number] [address] [place], [place] [address]Wbjrnpyy [Moles/Vol]105 mmol/XCxilnw57-574VnotzcjcgWVUMedicine Barnesville Hospital on above:Order Comment: Specimen Type: BLOOD SPECIMEN Ordering Facility: [facility] Address: [address] [place], [place] [address]Performed By: #### 12803-9 #### [facility] CLIA [id number] [address] [place] [address] 86700DD0 [Moles/Vol]24 mmol/GLybvsb96-13GhlswbfurSalem City Hospital Comment on above:Order Comment: Specimen Type: BLOOD SPECIMEN Ordering Facility: [facility] Address: [address] [place] [address]Ajhpcewwc By: #### 57565-2 #### [facility] CLIA [id number] [address] [place] [address] 03487Qwwopdfpxt [Mass/Vol]1.06 mg/dLHigh0.58-0.96WV[facility] on above:Order Comment: Specimen Type: BLOOD SPECIMEN Ordering Facility: [facility] Address: [address] [place] [address] 01107Xbbqewxen By: #### 00888-0 #### [facility] CLIA [id number] [address] [place], [place] [address]Sidymyamoe and Glomerular filtration rate.predicted panel (S/P/Bld)54 mL/min/1.73m???Low>=60[facility] on above: Order Comment: Specimen Type: BLOOD SPECIMEN Ordering Facility: [facility] Address: [address] [place], [place] [address]Result Comment: Estimated Glomerular Filtration Rate (eGFR) is [...] not accurately reflect actual GFR.Performed By: #### 44910-0 #### [facility] CLIA [id number] [address] [place] [address] 801[address]Qkkmlux [Mass/Vol]123 mg/pENkzo81-21XckgyrypnSalem City Hospital Comment on above:Order Comment: Specimen Type: BLOOD SPECIMEN Ordering Facility: [facility] Address: [address] [place], [place] [address]Htubdt Comment: The [place] Diabetes Association (ADA) provides guidance for cutoff [...] Standards of Medical Care in Diabetes 2016, [place] Diabetes Association. Diabetes Care. 2016.39(Suppl 1).Performed By: #### 02999-9 #### [facility] CLIA [id number] [address] [place] [address] 08586Tktgctjew [Mass/Vol]3.0 mg/dLNormal2.7-4.8CCleveland Clinic Euclid HospitalComment on above:Order Comment: Specimen Type: BLOOD SPECIMEN Ordering Facility: [facility] Address: [address] [place], [place] [address]Bxejorrhh By: #### 43499-2 #### [facility] CLIA [id number] [address] [place], [place] [address]Tllledmvx [Moles/Vol]4.0 mmol/LNormal3.7-5.1ClevelAtrium Health StanlyComment on above:Order Comment: Specimen Type: BLOOD SPECIMEN Ordering Facility: [facility] Address: [address] [place], [place] [address]Performed By: #### 47219-7 #### [facility] CLIA [id number] [address] [place], [place] [address]Wkskdy [Moles/Vol]141 mmol/GWbietn624-085ExcvrrwyaWVUMedicine Barnesville Hospital on above:Order Comment: Specimen Type: BLOOD SPECIMEN Ordering Facility: [facility] Address: [address] [place], [place] [address]Performed By: #### 74304-9 #### [facility] CLIA [id number] [address] [place], [place] [address]Xabv nitrogen [Mass/Vol]17 mg/dLNormal7-21WV[facility] on above:Order Comment: Specimen Type: BLOOD SPECIMEN Ordering Facility: [facility] Address: [address] [place], [place] [address]Performed By: #### 94121-9 #### [facility] CLIA [id number] [address] [place], [place] [address]Ppslq or plasma anion gap determinationon 50-47-2311Idjdy gap [Moles/Vol]Serum or plasma anion gap determination8-15Norwalk Memorial Hospitalerum or plasma total cholesterol/high density lipoprotein (HDL) cholesterol mass jewel 92-02-5793Zmurdigwetq.total/Cholesterol in HDL [Mass ratio]Serum or plasma total cholesterol/high density lipoprotein (HDL) cholesterol mass rat<5.10Martins Ferry HospitalTS SerPl-aCncon 08-40-6628HOW Qn3.430 m[IU]/LNormal0.270-4.200[facility] on above:Order Comment: Specimen Type: BLOOD SPECIMENOrdering Facility: [facility] Address:[address] [place] [address] Performed By: #### 3016-3 ####[facility] LABCLIA [id number] [place] [id number] [place]#### 54022-5 ####[facility]CLIA [id number] [address], [place] [address] [facility] HOSPITALORTHALEDA E[facility] LABCLIA [id number] [place], [place] [address]SEIAch 98-05-1935UORBKdkzjibki (ENDOAV) HOLA DOUGLAS ([id number]) 1945 F Date Time Provider Department 07/13/24 LORRAINE ONEILL ENDOAV During your visit today, we recorded the following information about you: Mili Handy LPN 07/13/2024 2:23 PM Signed Continuous glucose monitoring supplies order form received from [facility]. Form placed in Dr. Oneill's folder for review. Eidth Knott MA 07/20/2024 2:14 PM Signed Form [...] one time a week. - Blood-Glucose Sensor (BusyFlowCOM G7 SENSOR) nimesh Change sensor every 10 [...] 06/26/2024 Encounter Status:Closed by MILI HANDY on 07/13/24[facility] HospitalCorry [id number] (ENDOAV) HOLA DOUGLAS ([id number]) 1945 F Date Time Provider Department 07/10/24 KARL COOK During your visit today, we recorded the following information about you: Edith Kntot MA 07/10/2024 2:45 PM Signed Received CGM supply form from [facility]. Form placed in Karl Cook's folder for [...] one time a week. - Blood-Glucose Sensor (HotPads G7 SENSOR) nimesh Change sensor every 10 [...] 06/26/2024 Encounter Status:Closed by EDITH KNOTT on 07/10/24NoAultman Orrville HospitalCorry [id number] (NIQ) HOLA DOUGLAS ([id number]) 1945 F Date Time Provider Department 07/05/24 STEVE WAGONER During your visit today, we recorded the following information about you: Speed Door To Door Lead GenerationAlthea 07/05/2024 10:15 AM Signed Call received for [...] appointment: 07/12/2024 Best number to reach caller: [phone] Best time to reach caller: anytime Is it OK to leave a detailed voice message? Yes Althea Castaneda Door To Door Lead GenerationFadumo Keys RN 07/05/2024 11:14 AM Signed Neuro [...] for Visit: Patient Update [1234] Patient Question [5172] Prescriptions as of 07/05/2024 - nateglinide (STARLIX) 60 mg tablet Take 1 tablet by mouth three times a day before meals for 4 days. Start after your steroid injection. - tirzepatide (MOUNJARO) 7.5 mg/0.5 mL pen injector Inject 7.5 mg subcutaneously one time a week. - Blood-Glucose Sensor (HotPads G7 SENSOR) nimesh Change sensor every 10 [...] spondylosis with radiculopathy [M47*02/07/2024 (more content not included)...NormalSalem City HospitalCNPNon 06-29-2024 CNPNTelephone (SPNMMN) HOLA DOUGLAS ([id number]) 1945 F Date Time Provider Department 06/29/24 [...] one time a week. - Blood-Glucose Sensor (HotPads G7 SENSOR) nimesh Change sensor every 10 [...] 06/26/2024 Encounter Status:Closed by SOFIYA HAYNES on 06/29/24[facility]1000019on [id number] ID: [id number] Author: TERRI WILLINGHAM RN Service: ? Author Type: Registered Nurse Type: [id number] Filed: 06/26/2024 08:54 Note Text: Center for [...] USE OF STEROID; IT MAY BE INCREASED. NormalSalem City HospitalCNPNon 07-91-0182GIDULymmrogeg (ENDCMN) HOLA DOUGLAS ([id number]) 1945 F Date Time Provider Department 06/26/24 KARL COOK [facility] During your visit today, we recorded the following information about you: Phyllis Thomas 06/26/2024 7:58 AM Signed tirzepatide (MOUNJARO) 7.5 mg/0.5 mL pen injector has been approved Notified patient through [facility] HEYDI DURAND Advertising Director II Endocrinology AND Metabolism [facility] X-20 Allergies As of Date: 06/26/2024 Noted [...] Date Reviewed: 06/25/2024 Reviewed by: Karl Cook APRN.MATERIAL FLOW ENGINEER - Fully Assessed Reason for Visit: Insurance Authorization [1223] Cmt: Approval - tirzepatide (MOUNJARO) 7.5 mg/0.5 mL pen injector Prescriptions as of 06/26/2024 - nateglinide (STARLIX) 60 mg tablet Take 1 tablet by mouth three times a day before meals for 4 days. Start after your steroid injection. - tirzepatide (MOUNJARO) 7.5 mg/0.5 mL pen injector Inject 7.5 mg subcutaneously one time a week. - Blood-Glucose Sensor (HotPads G7 SENSOR) nimesh Change sensor every 10 [...] [M47*02/07/2024 Encounter Status:Closed by PHYLLIS THOMAS on 06/26/24[facility] PHYSICALon 33-87-9463MOUFYNV PHYSICALHNO ID: [id number] Author: IMER LEWIS APRN.MATERIAL FLOW ENGINEER Service: Family Practice Author Type: Nurse Practitioner [...] subcutaneously one time a week. Blood-Glucose Sensor (HotPads G7 SENSOR) nimesh Change sensor every 10 [...] Douglas DATE: June 26, 2024 TIME: 8:15 AMNormalSalem City HospitalOPERATIVE NOon 75-20-3268WOGPIKIOA NOHNO ID: [id number] Author: ZAK COHEN DO Service: Physical Medicine AND Rehabilitation Author Type: Physician Type: Operative Report Filed: 06/26/2024 08:49 Note Text: PROCEDURE REPORT Surgery/Procedure Date: June 26, 2024 Interventionalist: Zak Cohen DO Procedure(s): Right L4-5 transforaminal epidural steroid injection Pre-Op/Pre-Procedure Diagnosis: Lumbar radiculopathy Post-Op Diagnosis: same SUBJECTIVE: Hola Douglas is a 79 year old female, who presents to the [facility] for a right L4-L5 transforaminal epidural steroid injection. 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 Pain is right [...] discharged home in stable condition. Zak Cohen [facility] 67-27-3310CNEWMdrimg Visit (ENDOAV) DOUGLASHOLA Cao ([id number]) 1945 F Date Time Provider Department 06/25/24 3:00 PM KARL COOK ENDOANDREW During your visit today, we recorded the following information about you: Pulse Blood pressure Weight 73/minute 119/74 84.7 kg Karl Cook APRN.MATERIAL FLOW ENGINEER 06/26/2024 1:00 PM Signed Endocrinology Follow-up History of Present Illness Hola Dougals is a 79 year old female presents [...] mouth DAILY (6 AM). 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 - Proton Pump Inhibitors (PPIs) fludrocortisone (FLORINEF) [...] weekly Medical Supplies and DME - Insulin Abercrombie-Syringes and Admin Supplies Past History, Medications, Allergies [...] platelet disfunction Aspirin Unkno (more content not included)...NormalGood Samaritan Hospital on 47-32-0486NAPAHiacpliij (ENDAV3) HOLA DOUGLAS ([id number]) 1945 F Date Time Provider Department 06/19/24 [...] calling: self Call patient at: on cell [phone] (home) [phone] (cell) Was an appointment scheduled: No Closing statement: Results or non-symptom based questions: Thank you for calling [facility], your call will be returned within the [...] Fully Assessed Reason for Visit: Patient Question [7130] Cmt: Pt calling for initial appt for [...] [M47*02/07/2024 Encounter Status:Closed by FARZANA MORROW on 06/21/24NoParkwood Hospitalon 14-35-8256XTGOPvdnmumqp (SPNMMN) HOLA DOUGLAS ([id number]) 1945 F Date Time Provider Department 06/13/24 ZAK COHEN SPNMMN During your visit today, we recorded the following information about you: Sofiya Haynes LPN 06/13/2024 12:47 PM Signed Phoned patient and spoke with patient to confirm appointment for Hola Douglas for spine procedure on 06/26/24. Patient notified that [facility] will call patient the night before with the time to arrive for injection. Patient verbalized understanding of the following: -Provided education on spine procedure and answered questions related to spine injection procedure. -Financial Operations Consultant is needed to drive patient home: Yes, and patient aware hearse driver will need to stay for procedure [...] take morning diabetes medication. Patient given number [phone], spine injections schedulers, if there is any [...] Per pt feels like she on fire AVWeeks CommunicationsOX (MOXIFLOXACIN HCL) 06/03/2011 5 - Intolerance Comments: [...] stage 3a chronic *06/14/ (more content not included)...NormalMercy Health [facility] ClevelandX-ray reportOrdered By: Naldo Baltazar on 02-95-5077Nogqh reportFIRFLOWER HOSPITAL Main [address] [address] XRay Report Signed Patient: Hola Douglas MR#: [id number] : 1945 Acct:[id number] Age/Sex: 79 / F ADM Date: 5 [...] Baltazar Jr., D.O.06/12/2024 3:26 PM Dictation Location: [place] [address] Transcribed By: [facility] 06/12/24 1526 Dictated By: Naldo Baltazar Jr, DO 06/12/24 1526 Signed By: 06/12/24 1526 [facility] Ferry HospitalXR chest 2V*on 39-61-4886QX chest 2V*[address] [address] XRay Report Signed Patient: Hola Douglas MR#: [id number] 22 : 1945 Acct:[id number] Age/Sex: 79 / F ADM Date: 06/12/24 [facility]: [facility] Room: Type: REG CLI Attending Dr: [...] Baltazar Jr., D.ORemberto06/12/2024 3:26 PM Dictation Location: [facility] Transcribed By: [facility] 06/12/24 1526 Dictated By: Naldo Baltazar Jr, DO 06/12/24 1526 Signed By: 06/12/24 1526[facility] Physician GroupCNPNon 84-02-4288ZEGLLvoypphrt (SPNMMN) HOLA DOUGLAS ([id number]) 1945 F Date Time Provider Department 06/06/24 ZAK COHEN SPNMMN During your visit today, we recorded the following information about you: Sofiya Haynes LPN 06/06/2024 1:01 PM Signed [employer] message sent to patient with Procedure Instructions. [...] [M47*02/07/2024 Encounter Status:Closed by SOFIYA HAYNES on 06/06/24NoUniversity Hospitals TriPoint Medical CenterPNon [id number] (NIQ) HOLA DOUGLAS ([id number]) 1945 F Date Time Provider Department 06/05/24 ZAK COHEN During your visit today, we recorded the following information about you: Deborah Oscar 06/05/2024 10:01 AM Signed Call received for Zak Cohen DO regarding Hola Douglas. Caller: self Patient Identified by Name and : Hola Douglas 1945 Reason for Call: General - pt called she has the flu, still on [place] flu, she needs to reschedule her injection with Dr. Cohen. Please call. Is there any additional information the provider should know? No Last Office Visit: 05/23/2024 Next scheduled appointment: Visit date not found Best number to reach caller: [phone] Best time to reach caller: any Is [...] [M47*02/07/2024 Encounter Status:Closed by ELAYNE HDZ on 06/06/24NoLima City Hospital Cepheidon 64-10-6523CVPM-CoV-2 (COVID-19) RNA HANNAH+probe Ql (Unsp spec)COVID CepheidMartins Ferry HospitalLaboratory - Microbiology and Antimicrobial susceptibilityon 30-25-0257GQSC-CoV-2 (COVID-19) RNA HANNAH+probe Ql (Unsp spec)NegativeMartins Ferry HospitalNo Panel Informationon 96-30-2534HAO Influenza A (PCR)PositiveMartins Ferry HospitalPO Influenza B (PCR)NegativeMartins Ferry HospitalCNPNon 70-66-9479BPNT Telephone (CHRISBANNER) HOLA DOUGLAS ([id number]) 1945 F Date Time Provider Department 05/23/24 ZAK COHEN [facility] During your visit today, we recorded [...] spine procedure on 06/07/24. Patient notified that [facility] will call patient the night before with the time to arrive for injection. Patient verbalized understanding of the following: -Provided education on spine procedure and answered questions related to spine injection procedure. -Financial Operations Consultant is needed to drive patient home: Yes, patient is aware hearse driver will need to stay for procedure [...] take morning diabetes medication. Patient given number [phone], spine injections schedulers, if there is any [...] OSTEOARTH NOS-HAND [M19.049] more content not included)...Normal Salem City HospitalCNPNon 28-64-3163VRPYHykkirxtf (SPNMMN) HOLA DOUGLAS ([id number]) 1945 F Date Time Provider Department 05/21/24 ZAK COHEN [facility] During your visit today, we recorded the following information about you: Sofiya Haynes LPN 05/21/2024 6:09 PM Signed [employer] message sent to patient with Procedure Instructions. [...] [M47*02/07/2024 Encounter Status:Closed by SOFIYA HAYNES on 05/21/24NoAultman Orrville HospitalCNPNon 42-34-2953BNWCIdysgaahc (SPNMMN) HOLA DOUGLAS ([id number]) 1945 F Date Time Provider Department 05/14/24 [...] spondylosis with radiculopathy [M47.27] Order(s):SPINE INTERVENTION PROCEDURE [[id number]] Order #: [id number] Prescriptions as of 05/15/2024 - tirzepatide (MOUNJARO) [...] Type 2 diabetes m (more content not included)...NormalSalem City Hospital ALBUMIN/CREATININE RATIO, URINEon 69-49-9378Ovehdyh DL <= 20 mg/L (U) [Mass/Vol] 23.2 mg/LNormalAvon HospitalComment on above:Order Comment: Specimen Type: BLOOD SPECIMEN Ordering Facility[facility] Address: [address] [place], [place] [address]Performed By: #### 3016-3, 30416-6, 39949-8 #### [facility] CLIA [id number] [address] [place] [address] [place] AMERICAAlbumin/Creatinine (U) [Mass ratio]6 mg/g Normal<30Avon HospitalComment on above:Order Comment: Specimen Type: BLOOD SPECIMEN Ordering Facility: [facility] Address: [address] [place] [address]Result Comment: Adult Male and Female Nephrotic Criteria: <30 mg/g is considered normal to mildly increased 30-300 mg/g is considered moderately increased >300 mg/g is considered severely increased KDIGO. (2013). KDIGO 2012 Clinical Practice Guideline for the Evaluation and Management of Chronic Kidney Disease. Official Journal of the International Society of Nephrology, 3(1), 1-150.Performed By: #### 3016-3, 51836-3, 89580-7 #### [facility] CLIA [id number] [address] [place] [address] [place] AMERICACreatinine (U) [Mass/Vol]384.3 mg/dLHigh 20.0-300.0Avon HospitalComment on above:Order Comment: Specimen Type: BLOOD SPECIMEN Ordering Facility: [facility] Address: [address] [place] [address]Performed By: #### 3016-3, 65340-9, 98472-9 #### [facility] CLIA [id number] [address] [place] [address] [place] AMERICACholesterol in LDL Calc [Mass/Vol]on 92-92-0670Xqpxzlsavbf in LDL [Mass/Vol]Cholesterol in LDL [Mass/volume] in Serum or Plasma by calculationHigh<100Mart[facility] Ferry HospitalComment on above:<100 mg/dL, Optimal 100-129 mg/dL, Near optimal/above optimal 130-159 mg/dL, Borderline high 160-189 mg/dL, High>189 mg/dL, Very highSecondary prevention optimal LDL Cholesterol levels are recommended to be < 70 mg/dL Cholesterol in VLDL Calc [Mass/Vol]on 07-06-8378Kicmlxtnqrr in VLDL [Mass/Vol] Cholesterol in VLDL [Mass/volume] in Serum or Plasma by calculation<30Mart[facility] Ferry HospitalComprehensive metabolic 2000 panelon 38-95-3097Yrajwbz [Mass/Vol]4.1 g/dLNormal3.9-4.9Avon HospitalComment on above:Order Comment: Specimen Type: BLOOD SPECIMEN Ordering Facility: [facility] Address: [address] [place], [place] [address]Performed By: #### 3016-3, 96736-6, 54813-5 #### [facility] CLIA [id number] [address] [place] [address] [place] AMERICAALP [Catalytic activity/Vol]94 U/LNormal 34-123Avon HospitalComment on above:Order Comment: Specimen Type: BLOOD SPECIMEN Ordering Facility: [facility] Address: [address] [place] [id number] By: #### 3016-3, 09960-5, 94719-8 #### [facility] CLIA [id number] [address] [place] [address] [place] AMERICAALT [Catalytic activity/Vol]25 U/LNormal 7-38Avon HospitalComment on above:Order Comment: Specimen Type: BLOOD SPECIMEN Ordering Facility[facility] Address: [address] [place], [place] [address]Performed By: #### 3016-3, 89661-9, 50224-9 #### [facility] CLIA [id number] [address] [place] [address] [place] AMERICAAnion gap [Moles/Vol]9 mmol/LNormal8-15 Gravity HospitalComment on above:Order Comment: Specimen Type: BLOOD SPECIMEN Ordering Facility[facility] Address: [address] [place], [place] [address]Performed By: #### 3016-3, 57223-6, 60237-0 #### [facility] CLIA [id number] [address] [place] [address] [place] AMERICAAST [Catalytic activity/Vol]28 U/LNormal 13-35Gravity HospitalComment on above:Order Comment: Specimen Type: BLOOD SPECIMEN Ordering Facility: [facility] Address: [address] [place], [place] [address]Performed By: #### 3016-3, 13991-6, 08589-8 #### [facility] CLIA [id number] [address] [place] [address] [place] AMERICABilirubin [Mass/Vol]0.4 mg/dLNormal 0.2-1.3Ajefferson washington township hospital (formerly [facility]) HospitalComment on above:Order Comment: Specimen Type: BLOOD SPECIMEN Ordering Facility[facility] Address: [address] [place], [place] [address]Performed By: #### 3016-3, 79451-0, 44745-2 #### [facility] CLIA [id number] [address] [place] [address] [place] AMERICACalcium [Mass/Vol]8.8 mg/dLNormal8.5-10.2 Gravity HospitalComment on above:Order Comment: Specimen Type: BLOOD SPECIMEN Ordering [facility] Address: [address] [place], [place] [address]Performed By: #### 3016-3, 76879-9, 06671-4 #### [facility] CLIA [id number] [address] [place] [address] [place] AMERICAChloride [Moles/Vol]109 mmol/HHbzg10-028 [facility] HospitalComment on above:Order Comment: Specimen Type: BLOOD SPECIMEN Ordering Facility[facility] Address: [address] [place] [address]Qabzkjyir By: #### 3016-3, 82476-9, 34519-3 #### [facility] CLIA [id number] [address] [place] [address] [place] AMERICACO2 [Moles/Vol]26 mmol/OGjnqyh85-09Suvq HospitalComment on above:Order Comment: Specimen Type: BLOOD SPECIMEN Ordering Facility: [facility] Address: [address] [place] [address] 15[address]Ybwhbdmzn By: #### 3016-3, 38200-1, 03702-0 #### [facility] CLIA [id number] [address] [place] [address] [place] OF AMERICACreatinine [Mass/Vol]1.20 mg/dLHigh 0.58-0.96Gravity HospitalComment on above:Order Comment: Specimen Type: BLOOD SPECIMEN Ordering Facility: [facility] Address: [address] [place] [address] 61881Ctggluxjr By: #### 3016-3, 78623-7, 38157-9 #### [facility] CLIA [id number] [address] [place] [address] [place] OF AMERICACreatinine and Glomerular filtration rate.predicted panel (S/P/Bld)47 mL/min/1.73m???Low>=60Av HospitalComment on above:Order Comment: Specimen Type: BLOOD SPECIMEN Ordering Facility: [facility] Address: [address] [place] [address]Jqnksb Comment: Estimated Glomerular Filtration Rate (eGFR) is [...] accurately reflect actual GFR.Performed By: #### 3016-3, 21835-8, 36403-2 #### [facility] CLIA [id number] [address] [place] [address] [place] AMERICAGlucose [Mass/Vol]96 mg/cMCsxeft66-15Qetd HospitalComment on above:Order Comment: Specimen Type: BLOOD SPECIMEN Ordering Facility: [facility] Address: [address] [place], [place] [address]Result Comment: The [place] Diabetes Association (ADA) provides guidance for cutoff [...] Standards of Medical Care in Diabetes 2016, [place] Diabetes Association. Diabetes Care. 2016.39(Suppl 1).Performed By: #### 3016-3, 14422-6, 64653-6 #### [facility] CLIA [id number] [address] [place] [address] [place] AMERICAPotassium [Moles/Vol]4.4 mmol/LNormal 3.7-5.1Avo HospitalComment on above:Order Comment: Specimen Type: BLOOD SPECIMEN Ordering Facility: [facility] Address: [address] [place], [place] [address]Mgitmmfqe By: #### 3016-3, 85578-5, 62301-0 #### [facility] CLIA [id number] [address] [place] [address] [place] AMERICAProtein [Mass/Vol]6.7 g/dLNormal6.3-8.0 Gravity HospitalComment on above:Order Comment: Specimen Type: BLOOD SPECIMEN Ordering Facility: [facility] Address: [address] [place], [place] [address]Performed By: #### 3016-3, 42369-3, 62782-4 #### [facility] CLIA [id number] [address] [place] [address] [place] AMERICASodium [Moles/Vol]144 mmol/YJadogx114-578 [facility] HospitalComment on above:Order Comment: Specimen Type: BLOOD SPECIMEN Ordering Facility: [facility] Address: [address] [place], [place] [address]Performed By: #### 3016-3, 34656-1, #### [facility] CLIA [id number] [address] [place] [address] [place] AMERICAUrea nitrogen [Mass/Vol]20 mg/dLNormal 7-21Gravity HospitalComment on above:Order Comment: Specimen Type: BLOOD SPECIMEN Ordering Facility: [facility] Address: [address] [place], [place] [address]Performed By: #### 3016-3, , #### [facility] IA [id number] [address] [place] [address] [place] AMERICAGlucose mean value [Mass/volume] in Blood Estimated from glycated hemoglobinon 16-37-2373Dbqffca glucose Estimated from glycated hemoglobin (Bld) [Mass/Vol]Glucose mean value [Mass/volume] in Blood Estimated from glycated hemoglobinMartins Ferry HospitalComment on above:eAG: (Estimated average glucose) is a calculated value from HgbA1c and is outside industrial sales representative of the average blood glucose level in the last 2-3 month period. HbA1c (Bld)on 35-83-2629Ceqjsep glucose Estimated from glycated hemoglobin (Bld) [Mass/Vol]140 mg/dLNoThe Rehabilitation Hospital of Tinton Falls HospitalComment on above:Order Comment: Specimen Type: BLOOD SPECIMEN Ordering Facility: [facility] Address: [address] [place] [address]Yagcrv Comment: eAG: (Estimated average glucose) is a calculated value from HgbA1c and is outside industrial sales representative of the average blood glucose level in the last 2-3 month period.Performed By: #### 13120-8 #### [facility] CLIA [id number] [address] [place] [address] [place] OF CNUPYQCUdK0t (Bld) [Mass fraction] 6.5 %High4.3-5.6APark City HospitalComment on above:Order Comment: Specimen Type: BLOOD SPECIMEN Ordering Facility: [facility] Address: [address] [place], [place] [address]Result Comment: [place] Diabetes Association guidelines indicate that patients with HgbA1c in the range 5.7-6.4% are at increased risk for development of diabetes, and intervention by lifestyle modification may be beneficial. HgbA1c greater or equal to 6.5% is considered diagnostic of diabetes.Performed By: #### 93204-1 #### [facility] CLIA [id number] [address] [place] [address] [place] AMERICAHemoglobin A1c percentageon 06-84-3144BgM1h (Bld) [Mass fraction]Hemoglobin A1c percentageHigh4.3-5.6 [facility] Ferry HospitalComment on above:[place] Diabetes Association guidelines indicate that patients with HgbA1c in the range 5.7-6.4% are at increased risk for development of diabetes, and intervention by lifestyle modification may be beneficial. HgbA1c greater or equal to 6.5% is considered diagnostic of diabetes.Laboratory - Chemistry and Chemistry - challengeon 32-60-6370Hazoijp [Mass/Vol]4.1 g/dL3.9-4.9Mart[facility] Ferry HospitalALP [Catalytic activity/Vol]94 U/O71-661TtkyidbwdMartins Ferry HospitalALT [Catalytic activity/Vol]25 U/L7-38[facility] HospitalAST [Catalytic activity/Vol]28 U/S81-51VymthgyftMartins Ferry HospitalBilirubin [Mass/Vol]0.4 mg/dL0.2-1.3FWright-Patterson Medical CenterCalcium [Mass/Vol]8.8 mg/dL8.5-10.2FWright-Patterson Medical CenterChloride [Moles/Vol]109 mmol/L Lohz52-064QownghrdsMartins Ferry HospitalCholesterol [Mass/Vol]175 mg/dL<200 [facility] Ferry HospitalComment on above:<200 mg/dL, Desirable 200-239 mg/dL, Borderline high>239 mg/dL, HighCholesterol in HDL [Mass/Vol]44 mg/dL>39 [facility]erry HospitalComment on above:40-59 mg/dL, Acceptable>59 mg/dL, High: Negative risk factor for coronary heart disease<40 mg/dL, Low: Positive risk factor for coronary heart diseaseCO2 [Moles/Vol]26 mmol/L22-30 [facility] HospitalCreatinine [Mass/Vol]1.20 mg/dLHigh0.58-0.96 [facility]erry HospitalGlucose [Mass/Vol]96 mg/nM19-15FcdoaukbfMartins Ferry HospitalComment on above:The [place] Diabetes Association (ADA) provides guidance for cutoff [...] diabetes.Reference: Standardsof Medical Care in Diabetes 2016, [place] Diabetes Association. Diabetes Care. 2016.39(Suppl 1).Potassium [Moles/Vol]4.4 mmol/L 3.7-5.1FMercy Health St. Elizabeth Boardman Hospitalodium [Moles/Vol]144 mmol/G574-284 [facility]erry HospitalTriglyceride [Mass/Vol]116 mg/dL<150Martins Ferry HospitalComment on above:<150 mg/dL, Normal 150-199 mg/dL, Borderline high 200-499 mg/dL, High>499 mg/dL, Very highTSH Qn4.560 m[IU]/LHigh 0.270-4.200Martins Ferry HospitalUrea nitrogen [Mass/Vol]20 mg/dL7-21 [facility]erry HospitalLipid 1996 panelon 79-80-8980Vaznfmaehby [Mass/Vol]175 mg/dLNormal<200Avon HospitalComment on above:Order Comment: Specimen Type: BLOOD SPECIMEN Ordering Facility: [facility] Address: [address] [place], [place] [address]Hblqpn Comment: <200 mg/dL, Desirable 200-239 mg/dL, Borderline high >239 mg/dL, HighPerformed By: #### 3016-3, 59950-4, 36101-3 #### [facility] CLIA [id number] [address] [place] [address] [place] AMERICACholesterol in HDL [Mass/Vol]44 mg/dL Normal>39Avon HospitalComment on above:Order Comment: Specimen Type: BLOOD SPECIMEN Ordering Facility: [facility] Address: [address] [place] [address]Fblpky Comment: 40-59 mg/dL, Acceptable >59 mg/dL, High: Negative risk factor for coronary heart disease <40 mg/dL, Low: Positive risk factor for coronary heart diseasePerformed By: #### 3016-3, 46114-4, 02177-2 #### [facility] CLIA [id number] [address] [place] [address] [place] AMERICACholesterol in LDL [Mass/Vol]108 mg/dL High<100Avon HospitalComment on above:Order Comment: Specimen Type: BLOOD SPECIMEN Ordering Facility: [facility] Address: [address] [place] [address]Sorypq Comment: <100 mg/dL, Optimal 100-129 mg/dL, Near optimal/above optimal 130-159 mg/dL, Borderline high 160-189 mg/dL, High >189 mg/dL, Very high Secondary prevention optimal LDL Cholesterol levels are recommended to be < 70 mg/dLPerformed By: #### 3016-3, 74878-7, 84676-6 #### [facility] CLIA [id number] [address] [place] [address] [place] AMERICACholesterol in LDL/Cholesterol in HDL [Mass ratio]2.45 {ratio}Normal<2.54Avon HospitalComment on above:Order Comment: Specimen Type: BLOOD SPECIMEN Ordering Facility: [facility] Address: [address] [place] [address]Mzacwn Comment: Reference: 1. National Cholesterol Education Program ATP III Guideline At-A-Glance Quick Desk Reference: National Heart, Lung, and Blood [place]. National Institutes of Health. 2001: NIH Publication No. 01-3305. 2. An International Atherosclerosis Society position paper: global recommendations for the management of dyslipidemia: executive summary, Atherosclerosis. 2014: 232(2):410-413.Performed By: #### 3016-3, 19382-1, 73425- 1 #### [facility] CLIA [id number] [address] [place] [address] [place] AMERICACholesterol in VLDL [Mass/Vol]23 mg/dL Normal<30Avon HospitalComment on above:Order Comment: Specimen Type: BLOOD SPECIMEN Ordering Facility: [facility] Address: [address] [place], [place] [address]Performed By: #### 3016-3, 42416-9, 33200-9 #### [facility] CLIA [id number] [address] [place] [address] [place] AMERICACholesterol non HDL [Mass/Vol]131 mg/dL High<130Avon HospitalComment on above:Order Comment: Specimen Type: BLOOD SPECIMEN Ordering Facility: [facility] Address: [address] [place], [place] [address]Result Comment: <130 mg/dL, Optimal 130-159 mg/dL, Near optimal/above optimal 160-189 mg/dL, Borderline high 190-219 mg/dL, High >219 mg/dL, Very high Secondary prevention optimal non HDL Cholesterol levels are recommended to be <100 mg/dLPerformed By: #### 3016-3, 04902-9, 91791-3 #### [facility] CLIA [id number] [address] [place] [address] [place] AMERICACholesterol.total/Cholesterol in HDL [Mass ratio]3.98 {ratio}Normal<5.10Avon HospitalComment on above:Order Comment: Specimen Type: BLOOD SPECIMEN Ordering Facility: [facility] Address: [address] [place], [place] [address]Performed By: #### 3016-3, 97157-2, 68736-1 #### [facility] CLIA [id number] [address] [place] [address] [place] OF AMERICAFASTING TIME12 hoursMarshall County Hospital Comment on above:Order Comment: Specimen Type: BLOOD SPECIMEN Ordering Facility: [facility] Address: [address] [place] [address]Bnkpxofxc By: #### 3016-3, 30781-2, 95867-6 #### [facility] CLIA [id number] [address] [place] [address] [place] AMERICATriglyceride [Mass/Vol]116 mg/dLNormal <150Gravity HospitalComment on above:Order Comment: Specimen Type: BLOOD SPECIMEN Ordering Facility: [facility] Address: [address] [place], [place] [address]Result Comment: <150 mg/dL, Normal 150-199 mg/dL, Borderline high 200-499 mg/dL, High >499 mg/dL, Very highPerformed By: #### 3016-3, 70925-4, 53129-3 #### [facility] CLIA [id number] [address] [place] [address] [facility] Panel Informationon 81-08-4642Fvtyq Albumin/Creatinine Ratio6 mg/g<30Martins Ferry HospitalComment on above:Adult Male and Female Nephrotic Criteria:<30 mg/g is considered normal to mildly -542mp/g is considered moderately increased>300 mg/g is considered severely increasedKDIGO. (2013). KDIGO 2012 Clinical Practice Guideline for the Evaluation and Management of Chronic Kidney Disease. Official Journal of the International Society of Nephrology, 3(1), 1-150.Urine Microalbumin mg/dl23.2 mg/LFWright-Patterson Medical CenterUrine Random Oaemnanqol215.3 mg/kENpib44.0-300.0Martins Ferry HospitalEstimated GFR (CKD-EPI)47 mL/min/1.73m???Low>=60Mart[facility] Ferry HospitalComment on above:Estimated Glomerular Filtration Rate (eGFR) is calculated using the 2020 CKD-EPI creatinine equation. This equation utilizes serum creatinine, sex, and age as parameters. The creatinine assay has traceable calibration to isotope dilution-mass spectrometry. Refer to KDIGO guidelines for clinical inte rpretation. In patients with unstable renal function, e.g. those with acute kidney injury, the eGFRmay not accurately reflect actual GFR.Fasting Abjjqg96 hours hrsMartins Ferry HospitalNon-HDL Yyxqpvfafhz142 mg/dLHigh<130 [facility]erry HospitalComment on above:<130 mg/dL, Optimal 130-159 mg/dL, Near optimal/above optimal 160-189 mg/dL, Borderline high 190-219 mg/dL, High>219 mg/dL, Very highSecondary prevention optimal non HDL Cholesterol levels are recommended to be <100 mg/dLRadiology Study observation (narrative) [facility] CenterProtein [Mass/volume] in Serum or Plasmaon 98-52-5743Gmfizxd [Mass/Vol]Protein [Mass/volume] in Serum or Plasma6.3-8.0[facility]walk Memorial Hospitalerum or plasma anion gap determinationon 22-64-9374Eomml gap [Moles/Vol]Serum or plasma anion gap determination8-15Norwalk Memorial Hospitalerum or plasma total cholesterol/high density lipoprotein (HDL) cholesterol mass jewel 66-82-5754Axxruobdfix.total/Cholesterol in HDL [Mass ratio]Serum or plasma total cholesterol/high density lipoprotein (HDL) cholesterol mass rat<5.10Martins Ferry HospitalTS SerPl-aCncon 44-99-1724MTI Qn4.560 m[IU]/LHigh0.270-4.200Av HospitalComment on above:Order Comment: Specimen Type: BLOOD SPECIMEN Ordering Facility: [facility] Address: [address] [place], [place] [address]Wvqfmeyds By: #### 3016-3, 25243-9, 88002-2 #### [facility] CLIA [id number] [address] [place] [address] [place] AMERICAXR HIP 3V PELV+ AP/LAT RTon 69-37-1966XP HIP 3V PELV+ AP/LAT RT* * *Final [...] significant abnormality. IMPRESSION: Mild right hip osteoarthritis. Qa Intern: HEIDI Transcribe Date/Time: May 11 2024 12:22P Dictated by : JUNITO LOWERY MD This examination was interpreted and the report reviewed and electronically signed by: JUNITO LOWERY MD on May 11 2024 12:23PM EST [id number] County Memorial HospitalXR LUMBAR 3V AP/LAT/L5-S1on 05-11-2024 XR LUMBAR 3V [...] noted. No other significant abnormality. IMPRESSION: Spondylosis. Qa Intern: PSCB Transcribe Date/Time: May 11 2024 12:18P Dictated by : JUNITO LOWERY MD This examination was interpreted and the report reviewed and electronically signed by: JUNITO LOWERY MD on May 11 2024 1:21PM EST [id number] HealthcareXR Lumbar spine 3 Viewson 05-11-2024 IMPRESSION: Spondylosis. Qa Intern: PSCB Transcribe Date/Time: May 11 2024 12:18P [...] noted. No other significant abnormality. VIVIEN RADIOLOGYProphil, [facility] [place] - 05/11/2024 * * *Final Report* * [...] No other significant abnormality. IMPRESSION IMPRESSION: Spondylosis. Qa Intern: HEIDI Transcribe Date/Time: May 11 2024 12:18P Dictated by : JUNITO LOWERY MD This examination was interpreted and the report reviewed and electronically signed by: JUNITO LOWERY MD on May 11 2024 1:21PM [facility] Lumbar spine 3 ViewsOrdered By: Ccf Provider on 05-11-[address] [facility] Medical CenterXR Pelvis and Hip - right AP and Lateral frogon 05-11-2024 IMPRESSION: Mild right hip osteoarthritis. Qa Intern: KOSAIR CHILDREN'S HOSPITALAvery Transcribe Date/Time: May 11 2024 12:22P Dictated by : JUNITO LOWERY MD This examination was interpreted and the report reviewed and electronically signed by: JUNITO LOWERY MD on May 11 2024 12:23PM [facility] RADIOLOG[facility]* * *Final Report* * * DATE [...] tissue swelling. No other significant abnormality. VIVIEN MORALESHolden Memorial Hospitalvijair, [facility] [place] - 05/11/2024 * * *Final Report* * [...] abnormality. IMPRESSION IMPRESSION: Mild right hip osteoarthritis. Qa Intern: PSCB Transcribe Date/Time: May 11 2024 12:22P Dictated by : JUNITO LOWERY MD This examination was interpreted and the report reviewed and electronically signed by: JUNITO LOWERY MD on May 11 2024 12:23PM City HospitalCNPNon 84-09-1230EEYQHennlokle (ENDOAV) HOLA DOUGLAS ([id number]) 1945 F Date Time Provider Department 05/01/24 KARL COOK SAMSON During your visit today, we recorded the following information about you: Mili Handy LPN 05/01/2024 11:34 AM Signed PA completed for Mounjaro see determination below. Approval Details Authorization number: [id number] Authorized from May 01, 2024 to April [...] with radiculopathy [M47*02/07/2024 Encounter Status:Closed by MILI HNADY on 05/01/24NoUniversity Hospitals TriPoint Medical CenterDeepa 40-01-8195RQZLXnuqyesuw (ENDOAV) HOLA DOUGLAS ([id number]) 1945 F Date Time Provider Department 04/26/24 KARL COOK During your visit today, we recorded the following information about you: Roberth Cruz 04/26/2024 3:07 PM Signed Hola is calling Karl Cook APRN.MATERIAL FLOW ENGINEER today to request to switch to Mounjaro instead of Ozempic. She discussed that with Farzana Morrow, the silviculture professor and when she checked with her insurance, mounjaro would also be cheaper. Insurance would still need a prior auth. Please contact patient to advise. Patient has been identified by name and birthdate. Duration of symptoms: N/A Person calling: self Call patient at: on cell [phone] (home) [phone] (cell) Was an appointment scheduled: No Closing statement: Results or non-symptom based questions: Thank you for calling [facility], your call will be returned within the next business day. Roberth CruzKarl Hsieh APRN.MATERIAL FLOW ENGINEER 05/01/2024 8:14 AM Signed OK to switch to Mounjaro. Does patient have a supply of Ozempic left or is she looking to switch now. Please confirm pharmacy. Mili Handy LPN 05/01/2024 8:48 AM Signed Spoke with patient who reports she has enough Ozempic for this month. She would like the prescription sent to [facility] in [place] on [address] Karl Cook APRN.MATERIAL FLOW ENGINEER 05/01/2024 9:05 AM Signed Rx sent for [...] Dyspnea on exertion [R0 (more content not included)...NormalUniversity Hospitals Geaug[facility] Medical Center 90-96-7250TFKTTybndt Visit (NREUS2) HOLA DOUGLAS ([id number]) 1945 F Date Time Provider Department 03/20/24 2:00 PM ANDRES RUBIO NREUS2 During your visit today, we recorded the following information about you: Pulse Blood pressure Weight Height 75/minute 128/60 81.6 kg 1.727 m Andres Rubio MD 03/21/2024 8:39 AM Signed [facility] - FOLLOW UP EVALUATION Erich Gillis DO [address] [place] [phone] Dear Erich Gillis DO: I had the [...] PM Office Visit from 01/16/2024 in [facility] [place] Most recent reading at 01/13/2024 9:15 PM [...] 1 tablet by (more content not included)...Normal Salem City HospitalInfluenza virus B Ag [Presence] in Upper respiratory specimen by Rapid immunoassayon 90-00-9746FDLHB Ag IA.rapid Ql (Nph)Influenza virus B Ag [Presence] in Upper respiratory specimen by Rapid immunoassay [facility]erry HospitalNo Panel Informationon 86-77-2655Qubwrkpds Type A (Rapid)NegativeMartins Ferry HospitalPO SARS CoV-2 Antigen NegativeMartins Ferry HospitalNo Panel InformationOrdered By: Erich Gillis on 82-09-1444Ucypf Strep (POC)[facility] Ferry HospitalRSV (POC) [facility]erry HospitalCNPNon 97-03-0995SCBGRaqlhxucg (SPNMMN) STELLAHOLA ([id number]) 1945 F Date Time Provider Department 02/20/24 [...] RN - Fully Assessed Reason for Visit: Software Development Test Engineer - Other [3394] Prescriptions as of 02/20/2024 - pravastatin (PRAVACHOL) [...] [M47*02/07/2024 Encounter Status:Closed by FADUMO WINCHESTER on 02/20/24NoAultman Orrville HospitalCNTHERAPYon 66-83-2725FSMKKMJXSRV/PT/Speech Visit (PTAVTC) STELLAHOLA ([id number]) 1945 F Date Time Provider Department 02/16/24 10:30 AM KARL LION [facility] Date Time Provider Department Center 02/16/2024 10:30 AM [id number], MARY [facility] Vivien Herron Reason for Visit: PT Discharge [...] tab Take 1 tablet by mouth once daily.NormalGood Samaritan Hospitalon 86-24-8816DBSYTnmdfwoka (JEANMN) HOLA DOUGLAS ([id number]) 1945 F Date Time Provider Department 02/10/24 ZAK COHEN [facility] During your visit today, we recorded the following information about you: Elayne Hdz RN 02/10/2024 9:14 AM Signed Left message on voicemail for patient to call office back or to read Quewey message regarding Post Spine Injection phone call: [...] appointment 2-4 weeks post procedure by calling [phone] Patient does not have any questions or [...] 01/11/2014 Right buttock pa (more content not included)...NormalSalem City Hospital CNTHERAPYon 78-02-1236HAJDXQOJWJR/PT/Speech Visit ([facility]) HOLA DOUGLAS ([id number]) 1945 F Date Time Provider Department 02/09/24 3:15 PM KARL LION [facility] Date Time Provider Department Center 02/09/2024 3:15 PM [id number], MARY [facility] Vivien Herron Reason for Visit: Physical Therapy [...] tab Take 1 tablet by mouth once daily.NormalMarietta Memorial HospitalTORY PHYSICALon 60-26-1004SLPQAQY PHYSICALHNO ID: [id number] Author: AFRICA BELTRAN APRN.MATERIAL FLOW ENGINEER Service: ? Author Type: Nurse Practitioner Type: [...] NAME: Hola Douglas DATE: 02/07/2024 TIME: 12:27 PMNormalSalem City HospitalOPERATIVE NOon 07-29-1252KDOZMYIFP NOHNO ID: [id number] Author: ZAK COHEN DO Service: Physical Medicine AND Rehabilitation Author Type: Physician Type: Operative Report Filed: 02/07/2024 12:54 Note Text: PROCEDURE REPORT Surgery/Procedure Date: February 07, 2024 Interventionalist: Zak Cohen DO Procedure(s): Right L4-5 transforaminal epidural steroid injection Pre-Op/Pre-Procedure Diagnosis: Lumbosacral spondylosis with radiculopathy Post-Op Diagnosis: same SUBJECTIVE: Hola Douglas is a 78 year old female, who presents to the [facility] ambulatory surgery center for a right L4-L5 transforaminal epidural steroid injection. 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 Pain is right [...] be discharged home in stable condition. Sylvie MedranoSuburban Community Hospital & Brentwood HospitalAmbulatory Visit Summaryon 67-16-5034Uuikgeeuyq Visit SummaryAmbulatory Visit Summary HOLA DOUGLAS :1945 [...] Ryan LIVE MD Where: [facility] [address] [place] [address]- You Need to Schedule the Following Appointments Follow Up with HIRO BRICENO, ANGELO Tavera When: Where: [address] [place] [address]- Medications What How Much When Instructions Unchanged [...] the body. In female (more content not included)...[facility] HospitalUrology Office/Clinic Noteon 00-01-5706Fagahvf Office/Clinic NoteUrology Office/Clinic Note Chief Complaint 6 [...] Fr. The Urethra was dilated to: 18-30 Tunisian with sounds. Specimens Removed: None Postoperative Information [...] Information HIRO BRICENO, Ryan Holland, URL [address] [address]- Additional Instructions: 6 mos IO [...] with voice recognition artificial intelligence software, specifically [employer], [employer] and or [employer]. Substitutions may have occurred due to the [...] Injection of sacroiliac join (more content not included)...[facility] Comment on above:Result Comment: Electronically Signed By: HIRO BRICENO, Ryan Holland\.chano\Date and Time Signed: 02/06/24 09:07 Lisa [id number] (SPNMMN) HOLA DOUGLAS ([id number]) 1945 F Date Time Provider Department 02/02/24 ZAK COHEN SPNMMN During your visit today, we recorded the following information about you: Elayne Hdz, RN 02/02/2024 10:52 AM Signed Phoned patient and spoke with patient to confirm appointment for Hola Douglas for spine procedure on 02/07/2024. Patient notified that [facility] will call patient the night before with the time to arrive for injection. Patient verbalized understanding of the following: -Provided education on spine procedure and answered questions related to spine injection procedure. -Financial Operations Consultant is needed to drive patient home. Patient's [...] take morning diabetes medication. Patient given number [phone], spine injections schedulers, if there is any need to reschedule/ change appointment during normal business hours. Active Liquid Machineshart users were informed to read [place] procedure instructions prior to appointment. AMBULATORY PATIENT [...] Vitamin D insufficiency [E (more content not included)...NormalSalem City HospitalCNTHERAPYon 58-06-5308CLQLHYICISZ/PT/Speech Visit ([facility]) HOLA DOUGLAS ([id number]) 1945 F Date Time Provider Department 02/02/24 12:00 PM KARL LION [facility] Date Time Provider Department Center 02/02/2024 12:00 PM [id number], MARY [facility] Vivien Herron Reason for Visit: Physical Therapy [...] tab Take 1 tablet by mouth once daily.NormalSalem City HospitalCNPNon 21-28-5040ORLTIuhsxjdik (NENMMN) HOLA DOUGLAS ([id number]) 1945 F Date Time Provider Department 01/30/24 SHERYL SCHWARTZ During your visit today, we recorded the following information about you: Naina Ch 01/30/2024 10:27 AM Signed Call received for Sheryl Schwartz APRN.MATERIAL FLOW ENGINEER regarding Hola Douglas 1945. Caller: Self Patient Identified by Name and : Yes Was permission obtained from patient ? NA Reason for Call: Other: Patient called stating her BP is now high and wants to discuss dose of Fludrocortisone. Last Office Visit: 12/15/23 Last [facility] Health visit: Visit date not found Next scheduled appointment: 06/14/2024 Best number to reach caller: [phone] Best time to reach caller: any Is [...] 11/29/2023 Encounter Status:Closed by SHERYL SCHWARTZ on 01/30/24NoUniversity Hospitals TriPoint Medical CenterJUSTICEon 52-12-7456BXBLScuqstuct (PTAVTC) HOLA DOUGLAS ([id number]) 1945 F Date Time Provider Department 01/26/24 [...] 11/29/2023 Encounter Status:Closed by KARL LION on 01/26/24NoGrant HospitalHERAPYon [id number]/PT/Speech Visit ([facility]) HOLA DOUGLAS ([id number]) 1945 F Date Time Provider Department 01/26/24 3:15 PM KARL LION [facility] Date Time Provider Department Center 01/26/2024 3:15 PM [id number], MARY [facility] Vivien Herron Reason for Visit: Physical Therapy [...] tab Take 1 tablet by mouth once daily.NormalParma Community General HospitalKO ON DEMANDon 43-79-5785Bqcgoyi by an unspecified provider.[facility] DaytonHEMOGLOBIN A1C (POC)on 70-07-0993SwO2i (Bld) [Mass fraction]6.8 %Abnormal 4.3 - 5.6 %[facility] Vincent Medical CenterComment on above:Location:[facility], [address] [place] [address], [place], [place], [address] Point of care (POC) Hemoglobin A1c (HGBA1C) [...] specific diabetes management situations: The POC device service delivery analyst provides a normal range of 4.2% to 6.5% for the HGBA1C POC test. However, the [place] Diabetes Association guidelines indicate that patients with [...] cell lifespan. Interpretation and review of laboratory resultsAbnormalClevelAshtabula County Medical CenterXR CERV OTHER 4V AP/LAT/FLX/EXTon 13-42-0149LACUFJOBXW: Multilevel degenerative changes of the cervical spine with mild spondylolisthesis of C4 and C7. Congenital fusion of C5-C6 vertebral bodies. Qa Intern: HEIDI Transcribe Date/Time: Jan 16 2024 10:18A Dictated by : TAQUERIA SKY MD This examination was interpreted and the report reviewed and electronically signed by: COLTEN DIANE MD on Jan 16 2024 10:37AM [facility] DIVISION OF RADIOLOGY* * *Final Report* * [...] prevertebral soft tissue swelling. DIVISION OF RADIOLOGYProvider, [facility] [place] - 01/16/2024 * * *Final Report* * [...] C7. Congenital fusion of C5-C6 vertebral bodies. Qa Intern: HEIDI Transcribe Date/Time: Jan 16 2024 10:18A Dictated by : TAQUERIA SKY MD This examination was interpreted and the report reviewed and electronically signed by: COLTEN DIANE MD on Jan 16 2024 10:37AM EST [facility] Medical CenterRadiology Study observation (narrative)[facility] Medical CenterXR CERV OTHER 4V AP/LAT/FLX/EXTOrdered By: Ccf Provider on 29-44-0279Uffyfmqtq ClinicDBT Breast - bilateral diagnostic for implanton 83-88-6516YLLSCJYCEL: There is no mammographic evidence of malignancy [...] breast tissue. Interpreting Radiologist: Sergey Fountain M.D. Qa Intern: RIAZ Transcribe Date/Time: Jan 05 2024 2:59P Dictated by : SERGEY FOUNTAIN MD This examination was interpreted and the report reviewed and electronically signed by: SERGEY FOUNTAIN MD on Jan 05 2024 3:23PM [facility] DIVISION OF RADIOLOGY* * *Final Report* * * DATE OF EXAM: Jan 05 2024 3:13PM [facility] 0627 - ITALO DIAG W BENIGNO MENJIVAR / PROCEDURE REASON: Mastodynia * * * * Physician Interpretation * * * * RESULT: [place] [address] HISTORY: Patient is 78 years old and [...] from the prior study. DIVISION OF RADIOLOGYProvider, [facility] [place] - 01/05/2024 * * *Final Report* * * DATE OF EXAM: Jan 05 2024 3:13PM [facility] 0627 - ITALO DIAG W BENIGNO MENJIVAR / PROCEDURE REASON: Mastodynia * * * * Physician Interpretation * * * * RESULT: [place] [id number] HISTORY: Patient is 78 years old and [...] breast tissue. Interpreting Radiologist: Sergey Fountain M.D. Qa Intern: RIAZ Transcribe Date/Time: Jan 05 2024 2:59P Dictated by : SERGEY FOUNTAIN MD This examination was interpreted and the report reviewed and electronically signed by: SERGEY FOUNTAIN MD on Jan 05 2024 3:23PM [facility] CenterRadiology Study observation (narrative)[facility] Medical CenterDB Breast - bilateral diagnostic for implantOrdered By: Ccf Provider on 01-05-[address] [facility] Medical CenterInfluenza virus B Ag [Presence] in Upper respiratory specimen by Rapid immunoassayon 37-64-2352UWGKY Ag IA.rapid Ql (Nph)NegativeMartins Ferry HospitalFLUBV Ag IA.rapid Ql (Nph)Influenza virus B Ag [Presence] in Upper respiratory specimen by Rapid immunoassayMartins Ferry HospitalNo Panel Informationon 37-02-8436Zzfyqfney Type A (Rapid)NegativeMartins Ferry HospitalPO SARS CoV-2 AntigenNegativeMartins Ferry HospitalMR Cervical spine WO contraston 86-55-0163FGMWTNOUUL: At C4-5, there is a shallow broad [...] of the C5 and C6 vertebral segments. Qa Intern: HEIDI Transcribe Date/Time: Dec 04 2023 11:51A Dictated by : DENISE LEMOS MD This examination was interpreted and the report reviewed and electronically signed by: DENISE LEMOS MD on Dec 04 2023 12:02PM [facility] VIVIEN RADIOLOGY* * *Final Report* * * DATE OF EXAM: Dec 04 2023 11:18AM [facility] 0297 - MRI CERVICAL SPINE WO IVCON [...] right neural foramen is patent. VIVIEN RADIOLOGYProvider, [facility] [place] - 12/04/2023 * * *Final Report* * * DATE OF EXAM: Dec 04 2023 11:18AM [facility] 0297 - MRI CERVICAL SPINE WO IVCON [...] of the C5 and C6 vertebral segments. Qa Intern: HEIDI Transcribe Date/Time: Dec 04 2023 11:51A Dictated by : DENISE LEMOS MD This examination was interpreted and the report reviewed and electronically signed by: DENISE LEMOS MD on Dec 04 2023 12:02PM EST [facility] Medical CenterRadiology Study observation (narrative)[facility] Vincent Medical CenterMR Cervical spine WO contrastOrdered By: Ccf Provider on 76-17-9996Pbsfkboom Clinic MR Lumbar spine WO contraston 27-01-9675ETVYCSFOKN: At L3-4, there is a new right [...] and assume there are 5 lumbar-type vertebrae. Qa Intern: [facility] Transcribe Date/Time: Dec 04 2023 11:42A Dictated by : DENISE LEMOS MD This examination was interpreted and the report reviewed and electronically signed by: DENISE LEMOS MD on Dec 04 2023 11:51AM [facility] RADIOLOGY* * *Final Report* * * DATE OF EXAM: Dec 04 2023 11:17AM [facility] 0303 - MRI LUMBAR SPINE WO IVCON [...] wings are within normal limits. VIVIEN RADIOLOGYProvider, [facility] [place] - 12/04/2023 * * *Final Report* * * DATE OF EXAM: Dec 04 2023 11:17AM [facility] 0303 - MRI LUMBAR SPINE WO IVCON [...] and assume there are 5 lumbar-type vertebrae. Qa Intern: [facility] H[facility]ITALAvery Transcribe Date/Time: Dec 04 2023 11:42A Dictated by : DENISE LEMOS MD This examination was interpreted and the report reviewed and electronically signed by: DENISE LEMOS MD on Dec 04 2023 11:51AM EST [facility] Medical CenterRadiology Study observation (narrative)[facility] Lumbar spine WO contrastOrdered By: Ccf Provider on 86-99-6602Tgslybtoo ClinicMRI CERVICAL SPINE WO IVCONon 11-60-5355WWQ CERVICAL SPINE WO IVCON* * *Final Report* * * DATE OF EXAM: Dec 04 2023 11:18AM [facility] 0297 - MRI CERVICAL SPINE WO IVCON [...] of the C5 and C6 vertebral segments. Qa Intern: PSCB Transcribe Date/Time: Dec 04 2023 11:51A Dictated by : DENISE LEMOS MD This examination was interpreted and the report reviewed and electronically signed by: DENISE LEMOS MD on Dec 04 2023 12:02PM EST [id number] Medical Center Gladwin LUMBAR SPINE WO IVCONon 12-04-2023 MRI LUMBAR SPINE WO IVCON* * *Final Report* * * DATE OF EXAM: Dec 04 2023 11:17AM [facility] 0303 - MRI LUMBAR SPINE WO IVCON [...] and assume there are 5 lumbar-type vertebrae. Qa Intern: [facility] Transcribe Date/Time: Dec 04 2023 11:42A Dictated by : DENISE LEMOS MD This examination was interpreted and the report reviewed and electronically signed by: DENISE LEMOS MD on Dec 04 2023 11:51AM EST [id number] HealthcareXR LUMBAR 4V AP/LAT/ FLEX/EXTon 43-61-3783RU LUMBAR 4V AP/LAT/ FLEX/EXT* * *Final Report* [...] dynamic instability. IMPRESSION: Degenerative changes as described. Qa Intern: PSCB Transcribe Date/Time: Nov 29 2023 8:44P Dictated by : NATTY MALHOTRA MD This examination was interpreted and the report reviewed and electronically signed by: NATTY MALHOTRA MD on Nov 29 2023 8:44PM EST [id number] Affairs Medical Center Lumbar spine Views W flexion and W extensionon 53-84-1611JTXMQQXAJR: Degenerative changes as described. Qa Intern: PSC Transcribe Date/Time: Nov 29 2023 8:44P Dictated by : NATTY MALHOTRA MD This examination was interpreted and the report reviewed and electronically signed by: NATTY MALHOTRA MD on Nov 29 2023 8:44PM EST [facility]* * *Final Report* * * DATE [...] are intact. No dynamic instability. VIVIEN RADIOLOGYProvider, [facility] [place] - 11/29/2023 * * *Final Report* * [...] instability. IMPRESSION IMPRESSION: Degenerative changes as described. Qa Intern: HEIDI Transcribe Date/Time: Nov 29 2023 8:44P Dictated by : NATTY MALHOTRA MD This examination was interpreted and the report reviewed and electronically signed by: NATTY MALHOTRA MD on Nov 29 2023 8:44PM EST [facility] Medical CenterRadiology Study observation (narrative)[facility] Lumbar spine Views W flexion and W extensionOrdered By: Ccf Provider on 11-29-2023 [facility] Brain WO and W contrast Tristan 23-29-4488JLIKIBSLQE: 1. No acute intracranial process evident. 2. Periventricular signal abnormality without mass effect nor enhancement in keeping with small vessel ischemic changes. 3. Old ischemic changes in the right frontal white matter. 4. Central and cortical age related atrophy. 5. Mild paranasal sinus disease and mild fluid bilaterally at the mastoid air cells. Qa Intern: HEIDI Transcribe Date/Time: Nov 05 2023 12:33P Dictated by : MELITON LUZ MD This examination was interpreted and the report reviewed and electronically signed by: MELITON LUZ MD on Nov 05 2023 12:38PM EST [facility]* * *Final Report* * * DATE OF EXAM: Nov 05 2023 11:54AM [facility] 0295 - MRI BRAIN WO/W IVCON / [...] flow voids of the vessels of the elem of [place] and the dural venous sinuses [...] and optic chiasm appear unremarkable. VIVIEN RADIOLOGYProvider, [facility] [place] - 11/05/2023 * * *Final Report* * * DATE OF EXAM: Nov 05 2023 11:54AM [facility] 0295 - MRI BRAIN WO/W IVCON / [...] flow voids of the vessels of the elem of [place] and the dural venous sinuses [...] fluid bilaterally at the mastoid air cells. Qa Intern: HEIDI Transcribe Date/Time: Nov 05 2023 12:33P Dictated by : MELITON LUZ MD This examination was interpreted and the report reviewed and electronically signed by: MELITON LUZ MD on Nov 05 2023 12:38PM EST [facility] Medical CenterRadiology Study observation (narrative)[facility] Brain WO and W contrast IVOrdered By: Ccf Provider on 51-39-1541Tlbyrznaz ClinicMRI BRAIN WO/W IVCONon 69-72-9114IFA BRAIN WO/W IVCON* * *Final Report* * * DATE OF EXAM: Nov 05 2023 11:54AM [facility] 0295 - MRI BRAIN WO/W IVCON / [...] flow voids of the vessels of the elem of [place] and the dural venous sinuses [...] fluid bilaterally at the mastoid air cells. Qa Intern: [facility]ITALB Transcribe Date/Time: Nov 05 2023 12:33P Dictated by : MELITON LUZ MD This examination was interpreted and the report reviewed and electronically signed by: MELITON LUZ MD on Nov 05 2023 12:38PM EST [id number] Bay Hospital 12-20-9146RSTTBdwudybho (AVXRGN) HOLA DOUGLAS ([id number]) 1945 F Date Time Provider Department 11/02/23 [...] Date Reviewed: 10/26/2023 Reviewed by: Karl Cook APRN.MATERIAL FLOW ENGINEER - Fully Assessed Reason for Visit: Orders [...] 06/23/2023 Encounter Status:Closed by SHERYL GARZA on 11/02/23[facility] ON DEMANDon 31-77-4535Xhewjtr by an unspecified provider.[facility] HospitalGlucose mean value [Mass/volume] in Blood Estimated from glycated hemoglobinon 04-24-3885Drdphyb glucose Estimated from glycated hemoglobin (Bld) [Mass/Vol]146 mg/dLMartins Ferry HospitalComment on above:eAG: (Estimated average glucose) is a calculated value from HgbA1c and is outside industrial sales representative of the average blood glucose level in the last 2-3 month period. Laboratory - Chemistry and Chemistry - challengeon 91-85-7453Ooxhhts [Mass/Vol] 4.2 g/dL3.9-4.9Martins Ferry HospitalALP [Catalytic activity/Vol]94 U/E07-448IenlbueypMartins Ferry HospitalALT [Catalytic activity/Vol]42 U/LHigh 7-38Martins Ferry HospitalAST [Catalytic activity/Vol]42 U/ZDzhs95-10 [facility]erry HospitalBilirubin [Mass/Vol]0.5 mg/dL0.2-1.3FWright-Patterson Medical CenterCalcium [Mass/Vol]9.7 mg/dL8.5-10.2FWright-Patterson Medical CenterChloride [Moles/Vol]105 mmol/E51-496VpdviiixcMartins Ferry HospitalCO2 [Moles/Vol]29 mmol/N97-37VsaepfdvxMartins Ferry HospitalCreatinine [Mass/Vol]1.14 mg/dLHigh0.58-0.96Martins Ferry HospitalFree T4 [Mass/Vol]1.1 ng/dL0.9-1.7FWright-Patterson Medical CenterGlucose [Mass/Vol]119 mg/fKJquj20-02GqygupesnMartins Ferry HospitalComment on above:The [place] Diabetes Association (ADA) provides guidance for cutoff [...] diabetes.Reference: Standardsof Medical Care in Diabetes 2016, [place] Diabetes Association. Diabetes Care. 2016.39(Suppl 1). Potassium [Moles/Vol]4.6 mmol/L3.7-5.1FMercy Health St. Elizabeth Boardman Hospitalodium [Moles/Vol]142 mmol/A590-688GjrljczliMartins Ferry HospitalTSH Qn4.320 m[IU]/L High0.270-4.200Martins Ferry HospitalUrea nitrogen [Mass/Vol]18 mg/dL 7-21Martins Ferry HospitalLaboratory - Hematology and Cell countson 40-09-8044XjC9v (Bld) [Mass fraction]6.7 %High4.3-5.6FWright-Patterson Medical CenterComment on above:[place] Diabetes Association guidelines indicate that patients with HgbA1c in the range 5.7-6.4% are at increased risk for development of diabetes, and intervention by lifestyle modification may be beneficial. HgbA1c greater or equal to 6.5% is considered diagnostic of diabetes.No Panel Informationon 74-25-5012Siwsl Albumin/Creatinine Ratio<8 mg/g<30Martins Ferry HospitalComment on above:Adult Male and Female Nephrotic Criteria:<30 mg/g is considered normal to mildly ygtgqqnnq55-164wg/g is considered moderately increased>300 mg/g is considered severely increasedKDIGO. (2013). KDIGO 2012 Clinical Practice Guideline for the Evaluation and Management of Chronic Kidney Disease. Official Journal of the International Society of Nephrology, 3(1), 1-150.Urine Microalbumin mg/dl<12.0 mg/LFWright-Patterson Medical CenterUrine Random Whpcfsbrwz604.8 mg/dL20.0-300.0Martins Ferry HospitalEstimated GFR (CKD-EPI)50 mL/min/1.73m???Low>=60Martins Ferry HospitalComment on above:Estimated Glomerular Filtration Rate (eGFR) [...] actual GFR.Protein [Mass/volume] in Serum or Plasmaon 06-54-6340Odhafkh [Mass/Vol]6.9 g/dL6.3-8.0 [facility] Memorial Hospitalerum or plasma anion gap determinationon 80-06-0128Xpvbt gap [Moles/Vol]8 mmol/L8-15[facility] Alanine aminotransferase [Enzymatic activity/volume] in Serum or PlasmaOrdered By: Erich Gillis on 07-63-1996EEN [Catalytic activity/Vol]44 U/LNormal7-52 [facility] Ferry HospitalComment on above:Performed By: #### THY AB #### [facility] , #### TSH3 wRFLX, CMP #### [facility] [address] [place] [id number] USAAlbumin [Mass/volume] in Serum or Plasma by Bromocresol green (BCG) dye binding methoOrdered By: Erich Gillis on 63-29-1968Lnoostc BCG dye [Mass/Vol]4.4 g/dL3.5-5.7FWright-Patterson Medical CenterAlkaline phosphatase [Enzymatic activity/volume] in Serum or PlasmaOrdered By: Erich Gillis on 63-71-0111IDW [Catalytic activity/Vol]85 U/FFwycav89-625AewmvnvznMartins Ferry HospitalComment on above:Performed By: #### THY AB #### [facility] , #### TSH3 wRFLX, CMP #### [facility] [address] [place] [id number] USAAspartate aminotransferase [Enzymatic activity/volume] in Serum or PlasmaOrdered By: Erich Gillis on 46-69-0128CXM [Catalytic activity/Vol] 44 U/VDcai72-33MeoueyqbxMartins Ferry HospitalComment on above:Performed By: #### THY AB #### [facility] , #### TSH3 wRFLX, CMP #### [facility] [address] [place] [address] USABilirubin.total [Mass/volume] in Serum or PlasmaOrdered By: Erich Kuns on 68-87-3210Obcdsvbyv [Mass/Vol]0.5 mg/dLNormal0.3-1.0Martins Ferry HospitalComment on above:Performed By: #### THY AB #### [facility] , #### TSH3 wRFLX, CMP #### [facility] [address] [place] [address] USACalcium [Mass/volume] in Serum or PlasmaOrdered By: Erich Kuns on 90-49-3412Dixmksn [Mass/Vol]9.7 mg/dLNormal8.6-10.3FWright-Patterson Medical CenterComment on above:Performed By: #### THY AB #### [facility] , #### TSH3 wRFLX, CMP #### [facility] [address] [place] [address] USACarbon dioxide, total [Moles/volume] in Serum or Plasma Ordered By: Erich Kuns on 07-48-0523PK0 [Moles/Vol]30.5 mmol/RDvjqxu05.0-31.0 [facility]erry HospitalComment on above:Performed By: #### THY AB #### [facility] , #### TSH3 wRFLX, CMP #### [facility] [address] [place] [address] USAChloride [Moles/volume] in Serum or PlasmaOrdered By: Erich Kuns on 98-36-1066Uqkecmjb [Moles/Vol]105 mmol/NOcmzti89-346NzaorsrzpMartins Ferry HospitalComment on above:Performed By: #### THY AB #### [facility] , #### TSH3 wRFLX, CMP #### [facility] [address] [place] [address] USAComprehensive Metabolic Panelon 08-37-7508Pjlohnt [Mass/Vol]4.4 g/dLNormal3.5-5.7The [facility] University City Physician GroupComment on above: Performed By: #### THY AB #### [facility] , #### TSH3 wRFLX, CMP #### [facility] [address] [place] [address] USAGFR/1.73 sq M.predicted MDRD (S/P/Bld) [Vol rate/Area] 53.834 mL/min/{1.73_m2}NormalThe Atrium Health University City Physician GroupComment on above: Performed By: #### THY AB #### [facility] , #### TSH3 wRFLX, CMP #### [facility] [address] [place] [address] USACreatinine [Mass/volume] in Serum or PlasmaOrdered By: Erich Gillis on 25-90-5061Zhlnxayeof [Mass/Vol]1.07 mg/dLNormal0.60-1.20Mart[facility] Ferry HospitalComment on above:Performed By: #### THY AB #### [facility] , #### TSH3 wRFLX, CMP #### [facility] [address] [place] [id number] USAGlucose [Mass/volume] in Serum or PlasmaOrdered By: Erich Gillis on 44-83-0160Zenbypi [Mass/Vol]87 mg/wUMkrfwa05-636MufmhkklqMartins Ferry HospitalComment on above:ADA recommended reference rangeRandom Glucose [...] [facility] , #### TSH3 wRFLX, CMP #### [facility] [address] [place] [address] USANo Panel InformationOrdered By: Erich Gillis on 10-03-2023 Estimated GFR (CKD-EPI)53.834 mL/MinMartins Ferry HospitalPharmacy Creatinine Clearance (ChemN/Wilson Street HospitalQuick Strep (POC) [facility] Ferry HospitalPotassium [Moles/volume] in Serum or Plasma Ordered By: Erich Gillis on 90-82-7073Cxotmvrlz [Moles/Vol]4.5 mmol/LNormal3.5-5.1 [facility]erry HospitalComment on above:Performed By: #### THY AB #### [facility] , #### TSH3 wRFLX, CMP #### [facility] [address] [place] [address] USAProtein [Mass/volume] in Serum or PlasmaOrdered By: Erich Gillis on 08-49-2388Nirfnkg [Mass/Vol]6.7 g/dLNormal6.4-8.9Mart[facility] Ferry HospitalComment on above:Performed By: #### THY AB #### [facility] , #### TSH3 wRFLX, CMP #### [facility] [address] [place] [address] USASerum globulin measurement by calculation (mass/volume) Ordered By: Erich Gillis on 89-72-4985Izziyzix (S) [Mass/Vol]2.3 g/dLNormal [facility] Ferry HospitalComment on above:Performed By: #### THY AB #### [facility] , #### TSH3 wRFLX, CMP #### [facility] [address] [place] [address] USASerum or plasma albumin/globulin mass ratioOrdered By: Erich Gillis on 54-34-0207Clxpvrp/Globulin [Mass ratio]1.9 {ratio}NormalMartins Ferry HospitalComment on above:Performed By: #### THY AB #### [facility] , #### TSH3 wRFLX, CMP #### [facility] [address] [place] [address] USASerum or plasma anion gap determinationOrdered By: Erich Gillis on 20-02-3257Qclag gap [Moles/Vol]10.0 mmol/LNormal6.0-15.0Mart[facility] Ferry HospitalComment on above:Performed By: #### THY AB #### [facility] , #### TSH3 Marcus, CMP #### [facility] [address] [place] [address] USASerum or plasma thyroglobulin antibody assay (units/volume)Ordered By: Erich Gillis on 62-17-4427Jkofxhrvnppbq Ab Qn[IU]/mL 0.0-0.9Mart[facility] Ferry HospitalComment on above:Thyroglobulin Antibody measured by Ana CoulterMethodologyIt should be noted that the presence of thyroglobulinantibodies may not be pathogenic nor diagnostic, especiallyat very low levels. The assay service delivery analyst has found thatfour percent of individuals without evidence of thyroiddisease or autoimmunity will have positive TgAb levels upto 4 IU/mL.Performed at: [facility] [address] [id number] Director: Campbell Abrams PhD, Phone: [phone] or plasma thyroperoxidase antibody assay (units/volume)Ordered By: Erich Gillis on 77-57-0909WFA Ab Qn[IU]/mL0-34Norwalk Memorial Hospitalodium [Moles/volume] in Serum or PlasmaOrdered By: Erich Gillis on 68-85-9315Osqlqd [Moles/Vol]141 mmol/ARomtkq023-152NhcjtmykdMartins Ferry HospitalComment on above:Performed By: #### THY AB #### [facility] , #### TSH3 Marcus, CMP #### [facility] [address] [place] [address] USAThyroid Antibodies TPO+Tg Abon 83-60-6067Iloilmaqfvxyuunwd Ab<1.0Bpbcfj0.0-0.9The [facility] City Physician GroupComment on above:Result Comment: Thyroglobulin Antibody measured by Ana Esme Methodology It should be noted that the presence of thyroglobulin antibodies may not be pathogenic nor diagnostic, especially at very low levels. The assay service delivery analyst has found that four percent of individuals without evidence of thyroid disease or autoimmunity will have positive TgAb levels up to 4 IU/mL. Performed at: [address] [id number] Advertising Designer: Campbell Abrams PhD, Phone: [phone] PERFORMED BY: [place] [address] PATHOLOGIST WAREHOUSE SHIPPING SUPERVISOR ALINA JOHNSON M.D.Performed By: #### THY AB #### [facility] , #### TSH3 wRFLX, CMP #### [facility] [address] [place] [address] USAThyroid Peroxidase Antibodies<7Gzrosq9-29Yto [facility] City Physician GroupComment on above:Performed By: #### THY AB #### [facility] , #### TSH3 wRFLX, CMP #### [facility] [address] [place] [address] USAThyroid Stim Hormone w/Rflxon 99-48-0877Eyungaw Stim Hormone w/Rflx3.05 u[iU]/mLNormal0.45-5.33The [facility] City Physician GroupComment on above:Result Comment: PERFORMED BY: [place] [address] PATHOLOGIST WAREHOUSE SHIPPING SUPERVISOR ALINA JOHNSON M.D.Performed By: #### THY AB #### [facility] , #### TSH3 wRFLX, CMP #### [facility] [address] [place] [address] USAThyrotropin [Units/volume] in Serum or PlasmaOrdered By: Erich Gillis on 37-15-9150CRE Qn3.05 m[IU]/L0.45-5.33Martins Ferry HospitalUrea nitrogen [Mass/volume] in Serum or PlasmaOrdered By: Erich Gillis on 81-35-1248Awqv nitrogen [Mass/Vol]17 mg/dLNormal7-25Martins Ferry HospitalComment on above:Performed By: #### THY AB #### [facility] , #### TSH3 wRFLX, CMP #### [facility] [address] [place] [address] USACHEMISTRYOrdered By: Lab ROPUser on 67-74-3575Ujlgejn [Mass/Vol]96 mg/fNXtgxid45 - 99 mg/dLCOMMUNITY HOS[facility] [place] POC SubsectionPOC Device SN [id number] 1Invalid Interpretation CodeCOMMUNITY HOSPITAL – [facility] [place] POC SubsectionPOC User [id number] 1Invalid Interpretation CodeCOMMUNITY HOSPITAL [facility] [place] POC SubsectionPOC UsernameGIES, MELINDAInvalid Interpretation CodeCOMMUNITY HOSPITAL [facility] [place] POC SubsectionConsent for Treatmenton 77-80-0443Sppadpj for [id number]#1.00TIFFMcKitrick HospitalMain OR Preoperative Recordon 52-30-6475Rirn OR Preoperative RecordHolding Area Document Type FTPM Summary Primary Physician: Anirudh Arroyo DO Finalized Date/Time: 09/19/23 12:46:31 Pt. Name: HOLA DOUGLAS/Sex: 1945 Female Med Rec #: [id number] Physician: Anirudh Arroyo DO Financial #: [id number] Pt. Type: P Room/Bed: / Admit/Disch: 09/19/23 [...] Signatures Signed By: Charity Andrews RN 09/19/23 12:46NoSt. John of God HospitalPatient Correspondenceon 64-99-8138Dochckd Correspondence [id number]#1.00TIFBlanchard Valley Health System Blanchard Valley HospitalEMG(NEURO/NI)on 34-85-3689Gowpjaz can be seen in attached scanned documents. If you are a patient reviewing this test result, call the doctor who ordered the test with any questions. NEUROLOGICAL INSTITUTEMercy [facility] Medical CenterConsent for Treatmenton 68-22-6094Hguirpf for [id number]#1.00TIFBlanchard Valley Health System Blanchard Valley HospitalConsultation Noteon 33-74-1034Jrguedlbdshn NotePatient is presenting with complaints of 4-10 [...] call with any questions or concerns that arise.McKitrick HospitalComment on above:Result Comment: Electronically Signed By: Anirudh Arroyo DO.br\Date and Time Signed: 08/16/23 10:53 EDTOffice/Clinic Note-Physicianon 58-33-1965Jyqotw/Clinic Note-Physician [id number]#1.00TIFBlanchard Valley Health System Blanchard Valley HospitalPatient Correspondenceon 48-24-4386Tiihfvd Correspondence [id number]#1.00TIFBlanchard Valley Health System Blanchard Valley HospitalPatient History Officeon 25-66-1856Hvgloeu History Office [id number]#1.00TIFBlanchard Valley Health System Blanchard Valley HospitalPatient History [id number]#1.00TIFF McKitrick HospitalXR Pelvis 1 or 2 Viewson 49-13-3177OI Pelvis 1 or 2 ViewsExam Date/Time: 07/30/2023 [...] = na DAP = naNormalFisher [facility] Medical CenterConsent for Treatmenton 07-30-2023 Consent for [id number]#1.00TIFAdena Fayette Medical CenterPhysician Orderon 74-62-6951Cnnokjtoy Order [id number]#1.00TIFBlanchard Valley Health System Blanchard Valley HospitalOrders Officeon 94-97-2202Twjpwt Office [id number]#1.00[facility] Health MiamisburgConsent for Procedure/Surgeryon 95-65-4228Cngaeau for Procedure/Surgery [id number]#1.00TIFBlanchard Valley Health System Blanchard Valley HospitalAmbulatory Visit Summaryon 91-52-5366Nrxhfcpzjj Visit Summary HOLA DOUGLAS :1945 Visit Date:07/26/2023 [...] BRICENO, Ryan Holland Where: [facility] HospitalBasophil percentageon 63-95-2547Uqxvymbm ouqsnmjosw91 ug/dL 80-155Martins Ferry HospitalComment on above:This test was developed and its performance characteristics determined by [facility]'s RobertJ. [facility]ulkarniecu [facility] Pathology and Laboratory Medicine [place] ([facility]). It has not been cleared or approved by the FDA. -[facility] is regulated under CLIA as qualified to perform high-complexity testing. Thistest is used for clinical purposes. It should not be regarded as investigational or for research.C-REACTIVE PROTEINon 03-01-7165RAM [Mass/Vol]<0.9 mg/dLCleveland ClinicComprehensive metabolic 2000 panelon 78-64-6413Tlcyzxs [Mass/Vol]4.2 g/dL3.9 - 4.[address] Flat ClinicALP [Catalytic activity/Vol]90 U/L34 - 123 U/LCleveland ClinicALT [Catalytic activity/Vol]44 U/LHigh7 - 38 U/LCleveland ClinicAnion gap [Moles/Vol]16 mmol/L9 - 18 mmol/LCleveland ClinicAST [Catalytic activity/Vol]52 U/LHigh13 - 35 U/L [facility] Medical CenterBilirubin [Mass/Vol]0.2 mg/dL0.2 - 1.3 mg/dLMercy Health St. [facility] Calcium [Mass/Vol]9.8 mg/dL8.5 - 10.[address] Flat ClinicChloride [Moles/Vol] 107 mmol/LHigh97 - 105 mmol/LCleveland ClinicCO2 [Moles/Vol]24 mmol/L22 - 30 mmol/LCleveland ClinicCreatinine [Mass/Vol]1.05 mg/dLHigh0.58 - 0.96 mg/dL [facility] Medical CenterEstimated Glomerular Filtration Rate55 mL/min/1.73mLow>=60 mL/min/1.73mCleveland ClinicGlucose [Mass/Vol]87 mg/dL74 - 99 mg/dLMercy Health St. Vincent Medical CenterPotassium [Moles/Vol]4.0 mmol/L3.7 - 5.1 mmol/LCleveland ClinicProtein [Mass/Vol]6.8 g/dL6.3 - 8.[address] Flat ClinicSodium [Moles/Vol]147 mmol/LHigh 136 - 144 mmol/LCleveland ClinicUrea nitrogen [Mass/Vol]15 mg/dL7 - 21 mg/dL [facility] Medical CenterESR Westergren method (Bld) [Velocity]on 96-47-7824ILI (Bld) [Velocity]12 mm/h0 - 20 mm/hrMercy Health [address]. Vincent Medical CenterImmunoglobulin light chains.kappa.free [Mass/volume] in Serumon 65-48-0003Vlxbsrcsiiazzq light chains.kappa.free (S) [Mass/Vol]23.6 mg/L3.3-19.4FWright-Patterson Medical CenterComment on above:Rarely, increased serum free light chains levels may not be detected or accurately quantified due to prozone phenomenon or in high viscosity samples using this immunoturbidimetric assay. Correlation with other laboratory results and clinical findings is recommended. The Azure Free Light Chain was performed using the Binding Site Optilite immunoturbidimetric method. Result obtained with different assay methods or kits cannot be used interchangeably.Immunoglobulin light chains.kappa.free/Immunoglobulin light chains.lambda.free [Lanette 02-23-0802Fkfgejetkfkgsv light chains.kappa.free/Immunoglobulin light chains.lambda.free (S) [Mass ratio]1.26 0.26-1.65Martins Ferry HospitalImmunoglobulin light chains.lambda.free [Mass/volume] in Serum or Plasmaon 57-29-1346Etfirljbgqqkqm light chains.lambda.free [Mass/Vol]18.8 mg/L5.7-26.3FWright-Patterson Medical CenterComment on above:Rarely, increased serum free light chains [...] and Chemistry - challengeon 07-26-2023 Albumin [Mass/Vol]4.2 g/dL3.9-4.9Mart[facility] Ferry HospitalALP [Catalytic activity/Vol]90 U/N72-159TuzaihgfxMartins Ferry HospitalALT [Catalytic activity/Vol]44 U/L7-38Mart[facility]erry HospitalAST [Catalytic activity/Vol]52 U/F10-75EtxofjceoMartins Ferry HospitalBilirubin [Mass/Vol]0.2 mg/dL0.2-1.3FWright-Patterson Medical CenterCalcium [Mass/Vol]9.8 mg/dL 8.5-10.2FWright-Patterson Medical CenterChloride [Moles/Vol]107 mmol/L97-105 [facility] HospitalCO2 [Moles/Vol]24 mmol/G49-61VffwduskdMartins Ferry HospitalCobalamin (Vitamin B12) [Mass/Vol]818 pg/pT511-8071IeftofalzMartins Ferry HospitalCreatinine [Mass/Vol]1.05 mg/dL0.58-0.96Mart[facility]erry HospitalGlucose [Mass/Vol]87 mg/pH08-47IjmtjtbemMartins Ferry HospitalComment on above:The [place] Diabetes Association (ADA) provides guidance for cutoff [...] diabetes.Reference: Standardsof Medical Care in Diabetes 2016, [place] Diabetes Association. Diabetes Care. 2016.39(Suppl 1).Potassium [Moles/Vol]4.0 mmol/L 3.7-5.1FMercy Health St. Elizabeth Boardman Hospitalodium [Moles/Vol]147 mmol/X143-900 [facility]erry HospitalTSH Qn6.420 m[IU]/L0.270-4.200Mart[facility] Ferry HospitalUrea nitrogen [Mass/Vol]15 mg/dL7-21Mart[facility] Ferry HospitalLaboratory - Hematology and Cell countson 77-66-4942JBW (Bld) [Velocity]12 mm/h0-20Mart[facility] Ferry HospitalNo Panel Informationon 75-16-4778ZSaY Ganglionic Neuronal AntibodySEE NOTEMartins Ferry HospitalComment on above:NEGATIVEThis test did not detect abnormal levels of anti- ganglionicneuronal acetylcholine receptor antibodies (alpha 3AChR).Alpha- Tocopherol Level (Vitamin E)9.9 mg/L6.0-23.0[facility] Beta and Gamma Tocopherol2.1 mg/L0.3-3.2FWright-Patterson Medical CenterComment on above:This test was developed and its performance characteristics determined by [facility]'s [facility] Path[facility] and Laboratory Medicine [place] ([facility]). It has not been cleared or approved by the FDA. [facility] is regulated under CLIA as qualified to perform high-complexity testing. Thistest is used for clinical purposes. It should not be regarded as investigational or for research.C-Reactive Protein, Quantitative<0.3 mg/dL<0.9Mart[facility] Ferry HospitalEstimated GFR (CKD-EPI)55 mL/min/1.73m???>=60Mart[facility] Ferry HospitalComment on above:Estimated Glomerular Filtration Rate (eGFR) [...] Sign Pathologist (Misc)Reviewed by Carol Ann Gama MDMartins Ferry HospitalMisc Immunology Technical ResultSEE Dunlap Memorial HospitalComment on above: Interpretive Result Table INTERPRETIVE RESULT: NegativeTEST: anti-alpha 3AChRTECHNICAL RESULT: No abnormal levels of antibodies detected Miscellaneous Test 2SEE [facility] HospitalComment on above:1. DEWEY Jarquin et al. (2006) Semin Oncol 33: 270-98. (PMID:09517688)2. Odalys, SVETLANA, et al. (2011)Eur J Neurol 18: 19-e3.(PMID: 78394545)3. Cee Sarabia et al. (2012) J Neurol Neurosurg Tmtbzakryq35: 638-45. (PMID: 76915472)4. MR Fariba, et al. (2010) Oncologist 15: 603-17.(PMID: 70569863)5. Felecia Butler et al. (2008) Lancet Neurol 7: 327-40. (PMID:73523181)6. Felecia Delacruz et al. (2007) Orphanet J Rare Dis 2: 22.(PMID: 28248524)7. Lisa Whiteside et al. (2000) N Engl J Med 343: 847-55.(PMID: 20184685) This test was developed and its analytical performancecharacteristics have been determined by[facility].It has not been cleared or approved by the U.S. Food andDrug Administration. This assay has been validated pursuantto the CLIA regulations and is used for clinical purposes. Laboratory oversight provided by Rachel Saini M.D.,Ph.D., CLIA license nye, [facility] (CLIA#[id number]) Testing performed at:[facility] [address] [place] [address]Jynnovwuqgwlj Test Comment SEE [facility] Memorial HospitalComment on above:Comments: This result does not exclude a diagnosis of anautoimmune etiology for the neurological sym ptoms associatedwith paraneoplastic disorder. Recommendations: Health care providers, please contact [facility] Client Services Department [phone] if you wish to speak with a clinicalconsultant regarding this test result. Other testing available: [facility] recommendsadditional testing, if not already performed. [facility] currently offers the following antibodytests:anti-Hu, anti-Yo, anti-Zic4, anti-CV2, anti-Ma1, anti-Ta,anti-Ri, anti-Recoverin, anti-VGCC, anti-VGKC,anti-Amphiphysin, anti- NMDA, anti-GAD65, anti-LGI1, andanti-CASPR2. Please contact the [facility] ClientServices Department or visit [employer] forinformation regarding additional testing that may beappropriate [...] occult cancershould be considered.Reference Lab Test NameSEE [facility]lap Memorial HospitalComment on above:Detection of antibodies was performed by Radioimmunoassay(CHEN) methodology. Limitations of analysis: Reagent effectiveness may affectthe signal intensity of the response. Although rare, falsepositiveor false negative results may occur. All resultsshould be interpreted in the context of clinical findings,relevant history, and other laboratory data.Serum ImmunofixationNo M protein is identified.No M protein is identified.Mart[facility] Ferry HospitalPatient Educationon 07-26-2023 Patient EducationUrology Urethral Dilation [...] including vitamins, herbs, eye drops, creams, and bkth-snx-mlcsjiy medicines. ? Any problems you or family [...] tells you to take them. ? Taking zzkm-vtp-xoajdaj medicines, vitamins, herbs, and supplements. General instructions [...] these instructions at home: Medicines ? Take vscs-lza-maefmsh and prescription medicines only as told by [...] to prevent or treat constipation: ? Take gtkg-wbu-tfqfjba or prescription medicines. ? Eat foods that [...] urinate. ? You pa (more content not included)...NormalSamaritan HospitalProtein [Mass/volume] in Serum or Plasmaon 84-91-8476Ufrzxrt [Mass/Vol]6.8 g/dL6.3-8.0 [facility] Hospitalerum or plasma anion gap determinationon 77-38-6403Tdpot gap [Moles/Vol]16 mmol/L9-18FWright-Patterson Medical Center THYROID STIMULATING HORMONEon 34-72-2714ILF Qn6.420 m[IU]/LHigh0.270 - 4.200 mIU/LCleveland ClinicUrology Office/Clinic Noteon 55-32-9494Gnrzfco Office/Clinic NoteChief Complaint Pt is here for [...] Urethra was dilated to: 18 to 30 Tunisian with sounds. Specimens Removed: None Postoperative Information [...] urethral dilatation quite well up to 30 Tunisian. She will monitor the urinary flow after UDT today. Tentative plan for follow-up in 6 months with reconsideration of repeat UDT. She agrees with the plan Portions of this record may have been created with voice recognition artificial intelligence software, specifically [employer], [employer] and or Dragon Ambient Experience. Substitutions may have occurred due to the inherent limitations of voice recognition and artificial intelligence software. Follow-up With When Contact Information Ryan LIVE MD, URL [address] [facility] [address] [place] [address]- Additional Instructions: 6 mos for [...] - Urethral dilatation (09/01/2018 (more content not included)...McKitrick HospitalComment on above:Result Comment: Electronically Signed By: Ryan LIVE MD\.br\Date and Time Signed: 07/26/23 09:24 EDT\.br\Electronically Co-Signed By: Consuelo Rivera\.br\Date and Time Co-Signed: 07/26/23 09:20 EDT VITAMIN B12on 36-53-7760Pkgkcqotw (Vitamin B12) [Mass/Vol]818 pg/mL232 - 1,245 pg/mLCleveland ClinicUS venous duplex LE RTon 65-19-6941UV venous duplex LE RT [facility] [place] [address] Ultrasound Report Signed Patient: Hola Douglas MR#: [id number] 22 : 1945 Acct:[id number] Age/Sex: 78 / F ADM Date: 06/27/23 Loc: Room: Type: [facility] Attending Dr: Cheri Hansen TELEPHONE ENGINEER-C Ordering Provider: Cheri Hansen APRN Date of [...] Chris Ferris MD06/28/2023 4:27 PM Dictation Location: [facility] Tech: Fadumo Galvez Transcribed By: [facility] 06/28/23 1627 Dictated By: Chris Ferris MD 06/28/23 1626 Signed By: 06/28/23 1627[facility] Physician GroupConsent for Treatmenton 97-88-3887Nvrrkds for Treatment [id number]#1.00K[facility]tering Health MiamisburgConsultation Noteon 38-54-9036Uawowjwianrg NotePatient: HOLA DOUGLAS Age: 78 years Sex: [...] All Problems Urethral stricture / SNOMED CT 348311144 / Confirmed Nocturia / SNOMED CT 337224670 / Confirmed Urgency of urination / SNOMED CT 643181856 / Confirmed Hesitancy / SNOMED CT 938565145 / Confirmed Weak urine stream / SNOMED CT 225078037 / Confirmed Mixed incontinence / SNOMED CT 22646963 / Confirmed At risk for falls / SNOMED CT 073456509 / Possible Resolved: Hysterectomy / SNOMED CT 923016355 Resolved: Lumpectomy of breast / SNOMED CT 8920789984 Resolved: Colonoscopy / SNOMED CT 342754825 Objective Vital Signs 06/24/2023 10:34 EDT Peripheral Pulse Rate 90 bpm Respiratory Rate 18 br/min Systolic Blood Pressure 106 mmHg Diastolic Blood Pressure 71 mmHg Mean Arterial Pressure, Cuff 83 mmHg General: Alert and oriented, No acute distress. Eye: Normal conjunctiva. HENT: Normocephalic, Normal hearing. Cardiovascular: No edema. Musculoskeletal Normal range of motion. Normal strength. 5/5 strength Injection site well-healed Integumentary: Warm, Dry, Everman. Neurologic: Alert, Oriented. Psychiatric: Cooperative, Appropriate mood [...] require anything from our services ERMELINDA score: 16%McKitrick HospitalComment on above:Result Comment: Electronically Signed By: Kristie Saavedra PA-C\.chano\Date and Time Signed: 06/24/23 10:59 EDTOffice/Clinic Note-Physicianon 09-29-9235Vbinor/Clinic Note-[id number]#1.00TIFFMcKitrick HospitalPatient Correspondenceon 03-12-1619Uptewrv Correspondence [id number]#1.00TIFBlanchard Valley Health System Blanchard Valley HospitalPatient [id number]#1.00TIFF McKitrick HospitalPatient Correspondence [id number]#1.00TIFBlanchard Valley Health System Blanchard Valley HospitalPatient History Officeon 71-40-7238Qkwkbdv History Office [id number]#1.00TIFBlanchard Valley Health System Blanchard Valley HospitalInfluenza virus B Ag [Presence] in Upper respiratory specimen by Rapid immunoassayon 84-61-4024QNPXL Ag IA.rapid Ql (Nph)NegativeMartins Ferry HospitalNo Panel Informationon 28-29-7068Qkvcqjsqr Type A (Rapid)Negative [facility] Ferry HospitalPO SARS CoV-2 AntigenNegativeMartins Ferry HospitalNo Panel InformationOrdered By: Erich Gillis on 06-20-2023 RSV (POC)Mart[facility] Ferry HospitalXR hand RT min 3V*on 11-98-3643DW hand RT min 3V*[facility] Main [place] [id number] XRay Report Signed Patient: Hola Douglas MR#: [id number] 22 : 1945 Acct:[id number] Age/Sex: 78 / F ADM Date: 06/17/23 Loc: ER Room: Type: REG ER Attending Dr: Copies to: ROSEMARY hCandra Ordering Provider: ROSEMARY Chandra Date of Service: [...] Meliton Herrera M.D.06/17/2023 3:50 PM Dictation Location: [place] [address] Transcribed By: [facility] 06/17/23 1550 Dictated By: Meliton Herrera DO 06/17/23 1549 Signed By: 06/17/23 1550[facility] Physician GroupCHEMISTRYOrdered By: Lab ROPUser on 18-31-7235Ptjlyen [Mass/Vol]148 mg/hZVusu13 - 99 mg/dLCOMMUNITY HOSP[facility] [place] [place] POC SubsectionPOC Device [id number] 1Invalid Interpretation [facility] P[facility] SubsectionPOC User [id number] 1Invalid Interpretation CodeCOMMUNITY HOSPITAL – [facility] POC SubsectionPOC UsernameGIES, MELINDAInvalid Interpretation [facility] POC SubsectionCapillary Glucose POCon 51-33-8768Pbwphws [Mass/Vol]148 mg/xQLwam85-67PabitmSamaritan HospitalComment on above:Performed By: #### [id number] ####[facility] [address] [place], [place] [address]Dgyiakq for Procedure/Surgeryon 17-59-6362Muohbmb for Procedure/Surgery [id number]#1.00TIFTabbySt. John of God HospitalConsent for Treatmenton 15-60-2118Ssynyif for Treatment [id number]#1.00TIFBlanchard Valley Health System Blanchard Valley HospitalDischarge Instructionson 08-15-4634Gumgsgyfb Instructions [id number]#1.00TIFBlanchard Valley Health System Blanchard Valley HospitalIntraOperative Documentson 09-58-5331RghteUynexapck Documents [id number]#1.00TIFBlanchard Valley Health System Blanchard Valley HospitalMain OR Intraoperative Recordon 63-41-0685Barq OR Intraoperative Record IntraOp Document Type FTPM Summary Primary Physician: Anirudh Arroyo DO Finalized Date/Time: 06/08/23 10:28:10 Pt. Name: HOLA DOUGLAS Nash [place]ember[place]/Sex: 1945 Female Med Rec #: [id number] Physician: Anirudh Arroyo DO Financial #: [id number] Pt. Type: P Room/Bed: / Admit/Disch: 06/08/23 [...] Erica Izquierdo Role Performed Surgeon - Primary Bench Lay Out Technician - Primary Scrub - Primary Time In 06/08/23 10:20:00 06/08/23 10:20:00 06/08/23 10:20:00 Time Out 06/08/23 10:27:00 06/08/23 10:27:00 06/08/23 10:27:00 Procedure SACROILIAC JOINT SACROILIAC JOINT SACROILIAC JOINT INJECTION(Bilateral) INJECTION(Bilateral) INJECTION(Bilateral) Comments Last Modified By: Krishna LI, Didi Keller RN, Didi Jewell RN 06/08/23 10:26:35 06/08/23 10:26:35 06/08/23 10:26:35 Entry 4 Case Attendee Noni Lobo Role Performed Tie Maker Time In 06/08/23 10:20:00 Time Out 06/08/23 [...] and tissue Entry 1 Skin Integrity Intact, Everman, Warm, and Skin Abnormality No Dry Outcomes [...] Met? Yes Last Mo (more content not included)...McKitrick HospitalMain OR Preoperative Recordon 07-92-0874Zxaa OR Preoperative RecordHolding Area Document Type FTPM Summary Primary Physician: Anirudh Arroyo DO Finalized Date/Time: 06/08/23 09:55:16 Pt. Name: HOLA DOUGLAS/Sex: 1945 Female Med Rec #: [id number] Physician: Anirudh Arroyo DO Financial #: [id number] Pt. Type: P Room/Bed: / Admit/Disch: 06/08/23 [...] comments below for reason Last Modified By: Annmarie Echeverria RN 06/08/23 09:55:15 Finalized By: Annmarie Echeverria RN Document Signatures Signed By: Annmarie Echeverria RN 06/08/23 09:55McKitrick HospitalPatient Correspondenceon 82-06-0378Iiwdxzt Correspondence [id number]#1.00TIFBlanchard Valley Health System Blanchard Valley HospitalConsent for Treatmenton 42-39-3712Dlvubcb for Treatment [id number]#1.00TIFBlanchard Valley Health System Blanchard Valley HospitalConsultation Noteon 28-32-8191Kgykzwqqvzau NotePatient: HOLA DOUGLAS Age: 78 years Sex: [...] All Problems Urethral stricture / SNOMED CT 217380003 / Confirmed Nocturia / SNOMED CT 874914743 / Confirmed Urgency of urination / SNOMED CT 888083447 / Confirmed Hesitancy / SNOMED CT 050047016 / Confirmed Weak urine stream / SNOMED CT 896008496 / Confirmed Mixed incontinence / SNOMED CT 10870294 / Confirmed At risk for falls / SNOMED CT 917253381 / Possible Resolved: Hysterectomy / SNOMED CT 245581973 Resolved: Lumpectomy of breast / SNOMED CT 2106311806 Resolved: Colonoscopy / SNOMED CT 304814353 Objective Vital Signs 05/20/2023 10:17 EST Peripheral [...] Positive Gaenslen's test bilaterally Integumentary: Warm, Dry, Everman. Injection site well-healed Neurologic: Alert, Oriented. Psychiatric: [...] severe focal spinal jasper (more content not included)...McKitrick HospitalComment on above:Result Comment: Electronically Signed By: Kristie Saavedra PA-C\.br\Date and Time Signed: 05/20/23 10:48 EST\.br\Electronically Co-Signed By: Anirudh Arroyo DO\.br\Date and Time Co-Signed: 05/20/23 15:20 ESTLegal Correspondence Officeon 77-51-0486Nedvv Correspondence Office [id number]#1.00TIFBlanchard Valley Health System Blanchard Valley HospitalOffice/Clinic Note-Physicianon 41-37-9921Ljnsym/Clinic Note-Physician [id number]#1.00TIFBlanchard Valley Health System [facility] HospitalPatient Correspondenceon 16-98-9855Edbakbn Correspondence [id number]#1.00[facility]burgPatient [id number]#1.00TIFF [facility] HospitalPatient Correspondence [id number]#1.00[facility] AKRON CAMPUSFMcKitrick HospitalPatient [id number]#1.00TIFF [facility] HospitalPatient History Officeon 50-58-0054Uownati History [id number]#1.00[facility] MiamisburgCHEMISTRYOrdered By: Dayan Hassan on 17-51-8876[place] [Mass/Vol]122 mg/tKXfyw43 - 99 mg/dLFT POC SubsectionPOC Device [id number] 1Invalid Interpretation CodeCOMMUNITY [facility] [place] POC SubsectionPOC User [id number] 1Invalid Interpretation CodeCOMMUNITY [facility] [place] POC SubsectionPOC UsernameGIES, MELINDAInvalid Interpretation CodeCOMMUNITY HOS[facility] [place] POC SubsectionCapillary Glucose POCon 29-82-6981Yjdzmec [Mass/Vol]122 mg/tDJnfa58-67GpeqybSamaritan HospitalComment on above: Performed By: #### [id number] #### [facility] [address], [place] [address]Gxlrbyv for Procedure/Surgeryon 96-06-7467Ionnkst for Procedure/[id number]#1.00TIFBlanchard Valley Health System [facility] HospitalConsent for Treatmenton 61-58-0020Bbkilun for Treatment [id number]#1.00TIFBlanchard Valley Health System [facility] HospitalDischarge Instructionson 84-95-4621Snfcyprfu Instructions [id number]#1.00[facility] MiamisburgIntraOperative Documentson 53-68-3583JzdotGgpikiogv Documents [id number]#1.00[facility] MiamisburgMain OR Intraoperative Recordon 80-09-8472Iaxj OR Intraoperative Record IntraOp Document Type FTPM Summary Primary Physician: Anirudh Arroyo DO Finalized Date/Time: 04/20/23 09:18:54 Pt. Name: HOLA DOUGLAS/Sex: 1945 Female Med Rec #: [id number] Physician: Anirudh Arroyo DO Financial #: [id number] Pt. Type: P Room/Bed: / Admit/Disch: 04/20/23 [...] Sheryl Taylor Role Performed Surgeon - Primary Bench Lay Out Technician - Primary Scrub - Relief Time In [...] Ashvin Sahu Role Performed Scrub - Primary Tie Maker Time In 04/20/23 08:50:00 04/20/23 08:50:00 Time [...] and tissue Entry 1 Skin Integrity Intact, Everman, Warm, and Skin Abnormality No Dry Outcomes [...] Resting at Side Right (more content not included)...[facility] HospitalMain OR Preoperative Recordon 69-91-0941Cuaw OR Preoperative RecordHolding Area Document Type FTPM Summary Primary Physician: Anirudh Arroyo DO Finalized Date/Time: 04/20/23 08:05:22 Pt. Name: HOLA DOUGLAS/Sex: 1945 Female Med Rec #: [id number] Physician: Anirudh Arroyo DO Financial #: [id number] Pt. Type: P Room/Bed: / Admit/Disch: 04/20/23 [...] Signatures Signed By: Terri Ledbetter RN 04/20/23 08:05NoSt. John of God HospitalPatient Correspondenceon 08-23-7771Qqqxpql Correspondence [id number]#1.00TIFNovant Health, Encompass Healthmega [facility] Bayview Medical CenterInsurance Correspondence Officeon 47-74-3956Xvnsuqhng Correspondence [id number]#2.00TIFBlanchard Valley Health System [facility] Valley HospitalOffice/Clinic Note-Physicianon 99-75-2043Mgbcru/Clinic Note-[id number]#1.00TIFBlanchard Valley Health System [facility] HospitalInsurance Correspondence Officeon 41-42-8146Gnflldnlt Correspondence [id number]#2.00TIFTabbymookie Watts [facility] Medical CenterPatient Correspondenceon 63-01-3018Itayhaq Zrlr[id number]#1.00TIFBlanchard Valley Health System [facility] Valley HospitalCOVID-19 Detected/Not DetectedOrdered By: Erich Gillis on 71-43-9641BTVQ-CoV-2 (COVID-19) RNA HANNAH+non-probe Ql (Nph)Not detectedNot SCCI Hospital LimaComment on above:This is a duplicate RP2.1 COVID (PCR) result to be used for statistical tracking purpose only. Respiratory pathogens DNA and RNA panel - Nasopharynx by HANNAH with non-probe detectionOrdered By: Erich Gillis on 61-61-6416Tmtqxehbqtw pathogens DNA and RNA panel HANNAH+non-probe (Nph)[facility]erry HospitalConsent for Treatment on 17-65-3293Fxplcmx for Treatment [id number]#1.00TIFBlanchard Valley Health System [facility] HospitalConsultation Noteon 39-88-9193Quaivajmxmbx NotePatient: HOLA DOUGLAS Age: 77 years Sex: [...] All Problems Urethral stricture / SNOMED CT 932427864 / Confirmed Nocturia / SNOMED CT 916749610 / Confirmed Urgency of urination / SNOMED CT 281104054 / Confirmed Hesitancy / SNOMED CT 696738202 / Confirmed Weak urine stream / SNOMED CT 125678124 / Confirmed Mixed incontinence / SNOMED CT 19622556 / Confirmed At risk for falls / SNOMED CT 227633369 / Possible Resolved: Hysterectomy / SNOMED CT 173760591 Resolved: Lumpectomy of breast / SNOMED CT 3681557717 Resolved: Colonoscopy / SNOMED CT 635298499 Objective Vital Signs 03/07/2023 11:01 EST Peripheral [...] pain with facet loading Integumentary: Warm, Dry, Everman. Injection site well-healed Neurologic: Alert, Oriented. Psychiatric: [...] stenosis. There are hyp (more content not included)...[facility]Kitrick HospitalComment on above:Result Comment: Electronically Signed By: Kristie Saavedra PA-C\.br\Date and Time Signed: 03/07/23 11:29 EST\.br\Electronically Co-Signed By: Faisal BRICENO, Jamey Bartlett\.br\Date and Time Co-Signed: 03/14/23 11:39 ESTOffice/Clinic Note-Nurseon 96-12-0320Ecpetl/Clinic Note-Nurse [id number]#1.00TIFBlanchard Valley Health System [facility] HospitalOffice/Clinic Note-Physicianon 36-34-6530Fssnik/Clinic Note-Physician [id number]#1.00TIFFMcKitrick HospitalPatient Correspondenceon 08-49-3319Hkzxvzs Correspondence [id number]#1.00TIFBlanchard Valley Health System [facility] HospitalPatient O[id number]#1.00TIFF [facility] HospitalPatient Correspondence [id number]#1.00TIFBlanchard Valley Health System [facility] HospitalPatient History Officeon 91-94-8132Ztginks History Office [id number]#1.00[facility] MiamisburgCHEMISTRYOrdered By: Lab ROPUser on 23-98-0682Kqebcyz [Mass/Vol]162 mg/dL High55 - 99 mg/dLCOMMUNITY HOSP[facility] [place] POC SubsectionPOC Device [id number] 1Invalid Interpretation CodeCOMMUNITY [facility]OS[facility] [place] POC SubsectionPOC UsernameGIES, MELINDAInvalid Interpretation CodeCOMMUNITY HOS[facility] [place] POC SubsectionSodium [Moles/Vol]894228899 mmol/LInvalid Interpretation CodeCOMMUNITY HOSP[facility] [place] POC SubsectionCapillary Glucose POCon 44-52-3247Nqsjzmr [Mass/Vol]162 mg/xHKgbc91-06PvxjnmSamaritan HospitalComment on above: Performed By: #### [id number] #### [facility] [address] [place], [place] [address]Ihwlqxp for Procedure/Surgeryon 84-17-3830Ksfhwrj for Procedure/[id number]#1.00TIFBlanchard Valley Health System [facility] HospitalConsent for Treatmenton 55-00-4888Wkewytg for Treatment [id number]#1.00[facility] MiamisburgDischarge Instructionson 56-02-8969Fjvavvodt Instructions [id number]#1.00[facility] MiamisburgIntraOperative Documentson 62-18-3666NwwntSyuqggazv Documents [id number]#1.00[facility] MiamisburgMain OR Intraoperative Recordon 27-99-9826Sbrm OR Intraoperative Record IntraOp Document Type FTPM Summary Primary Physician: Jamey Malone MD Finalized Date/Time: 02/28/23 15:01:39 Pt. Name: HOLA DOUGLAS/Sex: 1945 Female Med Rec #: [id number] Physician: Faisal BRICENO, Jamey Bartlett Financial #: [id number] Pt. Type: P Room/Bed: / Admit/Disch: 02/28/23 [...] Performed Surgeon - Primary Scrub - Primary Bench Lay Out Technician - Primary Time In 02/28/23 10:28:00 02/28/23 10:28:00 02/28/23 10:28:00 Time Out 02/28/23 10:35:00 02/28/23 10:35:00 02/28/23 10:35:00 Procedure MEDIAL BRANCH MEDIAL BRANCH MEDIAL BRANCH BLOCK(Right) BLOCK(Right) BLOCK(Right) Comments Last Modified By: Erika Arellano RN 02/28/23 Erika Arellano RN 02/28/23 Erika Arellano RN 02/28/23 14:52:55 14:52:55 14:52:55 Entry 4 Case Attendee Viktoria CORDOVA(R)Lila Role Performed Tie Maker Time In 02/28/23 10:28:00 Time Out 02/28/23 [...] and tissue Entry 1 Skin Integrity Intact, Everman, Warm, and Skin Abnormality No Dry Outcomes [...] related to positioning Transpo (more content not included)...[facility] HospitalMain OR Preoperative Recordon 24-51-4073Awco OR Preoperative RecordHolding Area Document Type FTPM Summary Primary Physician: Jamey Malone MD Finalized Date/Time: 02/28/23 09:55:11 Pt. Name: HOLA DOUGLAS./Sex: 1945 Female Med Rec #: [id number] Physician: Jamey Malone MD Financial #: [id number] Pt. Type: P Room/Bed: / Admit/Disch: 02/28/23 [...] Signatures Signed By: Charity Andrews RN 02/28/23 09:55McKitrick HospitalOperative Report on 28-24-6472Ovgxmcwrb ReportPatient: HOLA DOUGLAS Age: 77 years Sex: [...] Comment: Electronically Signed By: Faisal BRICENO, Jamey Ramirez.br\Date and Time Signed: 02/28/23 10:34 ESTAlanine aminotransferase [Enzymatic activity/volume] in Serum or PlasmaOrdered By: Erich Gillis on 59-29-7664SOK [Catalytic activity/Vol]49 U/L 7-52Martins Ferry HospitalAlbumin [Mass/volume] in Serum or Plasma by Bromocresol green (BCG) dye binding methoOrdered By: Erich Gillis on 02-18-2023 Albumin BCG dye [Mass/Vol]4.1 g/dL3.5-5.7FWright-Patterson Medical Center Alkaline phosphatase [Enzymatic activity/volume] in Serum or PlasmaOrdered By: Erich Gillis on 54-69-2394EWD [Catalytic activity/Vol]76 U/A49-786EglhhysnxMartins Ferry HospitalAspartate aminotransferase [Enzymatic activity/volume] in Serum or PlasmaOrdered By: Erich Gillis on 98-96-7846ERQ [Catalytic activity/Vol] 43 U/V07-14BijwxhltyMartins Ferry HospitalBasophils Auto (Bld) [#/Vol]Ordered By: Erich Gillis on 31-15-6430Vjebklcfv (Bld) [#/Vol]0.1 10*3/uL0.0-0.2FWright-Patterson Medical CenterBasophils/100 WBC Auto (Bld)Ordered By: Erich Gillis on 33-88-3122Jfofdqapx/100 WBC (Bld)0.7 %.[facility] Bilirubin.total [Mass/volume] in Serum or PlasmaOrdered By: Erich Gillis on 00-07-4824Jcsoreymx [Mass/Vol]0.4 mg/dL0.3-1.0[facility] Calcium [Mass/volume] in Serum or PlasmaOrdered By: Erich Gillis on 02-18-2023 Calcium [Mass/Vol]9.8 mg/dL8.6-10.3FWright-Patterson Medical CenterCarbon dioxide, total [Moles/volume] in Serum or PlasmaOrdered By: Erich Gillis on 58-57-4115TH3 [Moles/Vol]29.4 mmol/L21.0-31.0[facility] Chloride [Moles/volume] in Serum or PlasmaOrdered By: Erich Gillis on 02-18-2023 Chloride [Moles/Vol]104 mmol/T87-793QesnatvbjMartins Ferry HospitalCreatinine [Mass/volume] in Serum or PlasmaOrdered By: Erich Gillis on 53-91-4979Mqwwmylljw [Mass/Vol]1.25 mg/dL0.60-1.20Mart[facility] Ferry HospitalEosinophils Auto (Bld) [#/Vol]Ordered By: Erich Gillis on 59-88-2859Icdlcasqrrk (Bld) [#/Vol]0.1 10*3/uL0.0-0.45Martins Ferry HospitalEosinophils/100 WBC Auto (Bld) Ordered By: Erich Gillis on 59-60-2415Qtmurvwpmud/100 WBC (Bld)0.8 %.[facility] Ferry HospitalErythrocyte distribution width Auto (RBC) [Ratio]Ordered By: Erich Gillis on 62-06-6749Akxiebucpdk distribution width (RBC) [Ratio]13.8 % 11.9-15.3FWright-Patterson Medical CenterGlobulin Calc (S) [Mass/Vol]Ordered By: Erich Gillis 82-33-3993Mzurilno (S) [Mass/Vol]2.3 g/dLMartins Ferry HospitalGlucose [Mass/volume] in Serum or PlasmaOrdered By: Erich Gillis 85-59-3739Cckzjry [Mass/Vol]149 mg/gC61-900PobbthsvvMartins Ferry Hospital Comment on above:ADA recommended reference rangeRandom Glucose Reference Range is dependent on time and content of last meal. Glucose of more than 200 mg/dL in a nonstressed, ambulatory subject supports the diagnosisof Diabetes Mellitus. Hematocrit Auto (Bld) [Volume fraction]Ordered By: Erich Gillis on 02-18-2023 Hematocrit (Bld) [Volume fraction]41.7 %34.0-46.4FWright-Patterson Medical CenterHemoglobin [Mass/volume] in BloodOrdered By: Erich Gillis on 02-18-2023 Hemoglobin (Bld) [Mass/Vol]13.8 g/dL11.8-15.4FWright-Patterson Medical Center Leukocytes [#/volume] corrected for nucleated erythrocytes in Blood by Automated counOrdered By: Erich Gillis on 15-27-8341IBF corrected for nucl RBC Auto (Bld) [#/Vol]10.5 10*3/uL3.8-11.6FWright-Patterson Medical CenterLymphocytes Auto (Bld) [#/Vol]Ordered By: Erich Gillis on 08-73-8832Oomxyrtfoct (Bld) [#/Vol]1.7 10*3/uL1.00-4.8Mart[facility] Ferry HospitalLymphocytes/100 WBC Auto (Bld) Ordered By: Erich Gillis on 68-62-6039Nbmdrvxqvvs/100 WBC (Bld)16.5 %.[facility] HospitalH Auto (RBC) [Entitic mass]Ordered By: Erich Gillis on 30-35-4784OTO (RBC) [Entitic mass]30.9 pg24.7-34.3FWright-Patterson Medical CenterMCHC Auto (RBC) [Mass/Vol]Ordered By: Erich Gillis on 15-13-3407CTIP (RBC) [Mass/Vol]33.2 g/dL32.0-35.0Mart[facility] Ferry HospitalMCV Auto (RBC) [Entitic vol]Ordered By: Erich Gillis on 52-79-8023NMF (RBC) [Entitic vol]93.1 fL 80-100Mart[facility] Ferry HospitalMonocytes Auto (Bld) [#/Vol]Ordered By: Erich Gillis on 87-85-3434Byxdwcvvi (Bld) [#/Vol]0.9 10*3/uL0.0-0.8Mart[facility] Ferry HospitalMonocytes/100 WBC Auto (Bld)Ordered By: Erich Gillis on 30-01-4777Fparzpvsw/100 WBC (Bld)8.4 %.[facility] Neutrophils Auto (Bld) [#/Vol]Ordered By: Erich Gillis on 06-12-9279Pgtluaohnin (Bld) [#/Vol]7.7 10*3/uL1.8-7.7FWright-Patterson Medical CenterNeutrophils/100 WBC Auto (Bld)Ordered By: Erich Gillis on 40-01-3938Rzxpbmhqcqp/100 WBC (Bld)73.6 %.[facility]erry HospitalNo Panel InformationOrdered By: Erich Gillis on 07-18-0632Aaaeqydyh GFR (CKD-EPI)44.949 mL/MinMartins Ferry Hospital Pharmacy Creatinine Clearance (ChemN/AFWright-Patterson Medical CenterNucleated erythrocytes [Presence] in Blood by Automated countOrdered By: Erich Gillis on 19-46-5234Bpcxmrjqf RBC Auto Ql (Bld)0.0 /100{WBC}0-0.5FWright-Patterson Medical CenterPlatelet mean volume Auto (Bld) [Entitic vol]Ordered By: Erich Gillis on 16-48-3779Clzrdmuq mean volume (Bld) [Entitic vol]8.6 fL6.3-10.7 [facility]erry HospitalPlatelets Auto (Bld) [#/Vol]Ordered By: Erich Gillis on 71-67-7856Rnmtlojhx (Bld) [#/Vol]314 10*3/iR608-704SedeprnwoMartins Ferry HospitalPotassium [Moles/volume] in Serum or PlasmaOrdered By: Erich Gillis on 67-09-6167Kizqhnwqq [Moles/Vol]4.2 mmol/L3.5-5.1FWright-Patterson Medical CenterProtein [Mass/volume] in Serum or PlasmaOrdered By: Erich Gillis on 46-31-6903Pqkdtwi [Mass/Vol]6.4 g/dL6.4-8.9Mart[facility] Ferry HospitalRBC Auto (Bld) [#/Vol]Ordered By: Eirch Gillis on 02-61-1180SCN (Bld) [#/Vol]4.47 10*6/uL3.60-5.00[facility] Hospitalerum or plasma albumin/globulin mass ratioOrdered By: Erich Gillis on 65-55-4684Unrfbfb/Globulin [Mass ratio]1.8 {ratio}[facility] Hospitalerum or plasma anion gap determinationOrdered By: Erich Gillis on 74-57-5953Vyboi gap [Moles/Vol]11.8 mmol/L6.0-15.0[facility] Hospitalodium [Moles/volume] in Serum or PlasmaOrdered By: Erich Gillis on 20-18-8525Prlzew [Moles/Vol]141 mmol/G833-839 [facility]erry HospitalUrea nitrogen [Mass/volume] in Serum or Plasma Ordered By: Erich Gillis on 82-08-5641Vefd nitrogen [Mass/Vol]23 mg/dL7-25 [facility] HospitalWBC Auto (Bld) [#/Vol]Ordered By: Erich Gillis on 65-78-7812SED (Bld) [#/Vol]10.5 10*3/uL3.8-11.6FWright-Patterson Medical CenterCOVID + FLU Quick Testingon 57-81-9292GVTE-CoV-2 (COVID-19) RNA HANNAH+probe Ql (Unsp spec)NegativeSnugg Home Other COVID + FLU Quick TestingNegativeNoSnugg Home Other Quick Strepon 02-14-2023S. pyogenes Org specific cx Ql (Throat)NegativeSnugg Home Other Quick StrepButtercoin Other RSVon 51-26-3530TDM Ag IA Ql (Unsp spec)NegativeSnugg Home Other Ambulatory Visit Summaryon 68-04-8881Heqehoiprc Visit Summary HOLA DOUGLAS :1945 Visit Date:02/08/2023 Ambulatory Visit Instructions Your Diagnosis Urethral stricture Hesitancy Nocturia Mixed incontinence Tests Performed Urnls Dip Stick Auto w/o Microscopy POC 51402 Your Care Team Attending Physician - HIRO BRICENO, Ryan Holland Primary Care Physician - ERICH GILILS DO This Is Your Medications List Contact [...] Appointments Tuesday 11:00 AM EST With: Where: [facility] Pain Management Tuesday 11:15 AM EST With: Kristie Saavedra PA-C Where: [facility] Tuesday 8:45 AM EDT With: Ryan LIEV MD Where: [facility] Education 30-43-0545Wikzemh EducationUrology Urethral Stricture Urethral stricture is narrowing [...] Follow these instructions at home: ? Take vyfz-aau-lylkmzn and prescription medicines only as told by [...] Reviewed: 02/02/2022 Elsevier Patient Education ? 2022 [employer] Office/Clinic Noteon 45-65-1365Iuexick Office/Clinic NoteChief Complaint 1 year F/U HPI [...] Tight The Urethra was dilated to: 16-30 Tunisian with sounds. Specimens Removed: None Postoperative Information [...] Ryan P, URL In [address] [place] [address]- Additional Instructions: Patient Education Urethral Stricture I, Yuliana Alexander, personally scribed for Dr. Live on 02/08/2023 11:15:57. . Documentation recorded by the scribeYuliana, accurately reflects the services(s) I performed and decisions made by me. Authenticated by Dr. Live on 02/08/2023 12:52:31. Portions of this record may have been created with voice recognition artificial intelligence software, specifically Makeblock, Dragon Express and or Dragon Ambient Experience. Substitutions may have occurred due to the inherent limitations of voice recognition and artificial intelligence software. Problem List/Past Medical History Ongoing At risk for falls Hesitancy Mixed incontinence Nocturia Urethral stricture Urgency of urination Weak urine stream Historical Colonoscopy Hysterectomy Lumpectomy of breast Procedure/Surgical History Left wrist (11/2022), Injection of sacroiliac joint u (more content not included)...[facility]rick HospitalComment on above:Result Comment: Electronically Signed By: Ryan LIVE MD\.br\Date and Time Signed: 02/08/23 12:53 EDT\.br\Electronically Co-Signed By: Yuliana Alexander\.br\Date and Time Co-Signed: 02/08/23 11:16 EDTPatient Correspondenceon 43-80-8797Fhfjyru [id number]#1.00TIFFNoSt. John of God HospitalXR hand LT min 3V*on 25-31-6884ZY hand LT min 3V*[facility] [employer] Other XR hand LT min 3V*[facility] [employer] Other XR hand LT min 3V*[address] [place] [address] [employer] Other XR hand LT min 3V*[place], [place] [address]ElcwlFairfax Hospital [employer] Other XR hand LT min 3V*XRay ReportFairfax Hospital [employer] Other XR hand LT min 3V*SignedSaint Vincent [employer] Other XR hand LT min 3V*Patient: Hola Douglas MR#: [id number] [employer] Other XR hand LT min 3V*[address] [place] [address] [employer] Other XR hand LT min 3V*: 1945 Acct:[id number] [employer] Other XR hand LT min 3V*Age/Sex: 77 / F ADM Date: 01/21/23 [employer] Other XR hand LT min 3V*Loc: [facility] Room: Type: [facility] SYSTEMDigital [employer] Other XR hand LT min 3V*Attending Dr: Merary Booth MD [facility] [employer] Other XR hand LT min 3V*Copies to: Merary Booth MDSaint Vincent [employer] Other XR hand LT min 3V*Ordering Provider: Merary Booth MDPhaseRx [employer] Other xr hand LT min 3V*Date of Service: 01/21/23[facility] [employer] Other xr hand LT min 3V* XR/XR hand LT min 3V*: [facility] CenterSnugg Home Other XR hand LT min 3V*LEFT HAND - 4 [facility] [employer] Other xr hand LT min 3V*CLINICAL DATA: Follow-up fusion of the fifth finger and first carpal metacarpal jointSaint Vincent [employer] Other XR hand LT min 3V*COMPARISON: 12/24/2022[facility] [employer] Other xr hand LT min 3V*AP, lateral and oblique views were obtained lumbosacral minimal AP view of the thumb. A screw isSaint Vincent [employer] Other XR hand LT min 3V*again visualized traversing the distal interphalangeal joint of the fifth finger. There are [facility] [employer] Other XR hand LT min 3V*orthopedic franklin at the first carpal metacarpal joint. The postoperative findings are stable.[employer] Other xr hand LT min 3V*There are no acute fractures or dislocation. There are degenerative changes at the remaining distalSnugg Home Other XR hand LT min 3V*interphalangeal joints and mild at the first metacarpal phalangeal joint. There is a bone graftingSaint Vincent [employer] Other xr hand LT min 3V*donor site at the distal radius. No prominent soft tissue swelling is seen.[employer] Other xr hand LT min 3V* XR/XR hand LT min 3V*[employer] Other XR hand LT min 3V*IMPRESSION:[employer] Other XR hand LT min 3V*SIMILAR POSTOPERATIVE AND DEGENERATIVE CHANGES.[employer] Other xr hand LT min 3V*Impression dictated by: Karina Dalton M.D.01/21/2023 2:22 PMNst. louis behavioral medicine institute [employer] Other xr hand LT min 3V*Dictation Location: XKVEA-FN-40Ielsy [employer] Other XR hand LT min 3V*Transcribed By: [facility] 01/21/23 [facility] [employer] Other xr hand LT min 3V*Dictated By: Karina Dalton MD 01/21/[address] [place] [address] [employer] Other xr hand LT min 3V*Signed By:[employer] Other xr hand LT min 3V*01/21/[address] [place] [address] [employer] Other MAM SCREENING W Vahid 73-30-9891Svlqcxooa Clinic Glucose Glucometer (BldC) [Mass/Vol]Ordered By: Merary Booth on 11-15-2022 Glucose [Mass/Vol]109 mg/dLMartins Ferry HospitalComment on above: Random Glucose Reference Range is dependent on time and content of last meal. Glucose of more than 200 mg/dL in a nonstressed, ambulatory subject supports the diagnosis of Diabetes Mellitus.CHEMISTRYOrdered By: Dayan Hassan on 11-08-2022 Glucose [Mass/Vol]118 mg/xQIddh51 - 99 mg/dLCOMMUNITY HOSP[facility] [place] POC SubsectionPOC Device SN [id number] Interpretation CodeCOMMUNITY HOSPITAL [facility] [place] POC SubsectionPOC User [id number] Invalid Interpretation CodeCOMMUNITY HOSP[facility] [place] POC SubsectionPOC UsernameGIES, MELINDAInvalid Interpretation CodeCOMMUNITY HOSP[facility] [place] POC SubsectionAlanine aminotransferase [Enzymatic activity/volume] in Serum or PlasmaOrdered By: Merary Booth on 83-48-7072YJY [Catalytic activity/Vol]32 U/L7-52Martins Ferry HospitalAlbumin [Mass/volume] in Serum or Plasma by Bromocresol green (BCG) dye binding metho Ordered By: Merary Booth on 65-38-8704Uxrrcjk BCG dye [Mass/Vol]4.1 g/dL 3.5-5.7FWright-Patterson Medical CenterAlkaline phosphatase [Enzymatic activity/volume] in Serum or PlasmaOrdered By: Merary Booth on 08-26-6396UXB [Catalytic activity/Vol]73 U/S09-853IltonqegvMartins Ferry HospitalAspartate aminotransferase [Enzymatic activity/volume] in Serum or PlasmaOrdered By: Merary Booth on 71-53-1970HET [Catalytic activity/Vol]31 U/K44-82PpbwbsoivMartins Ferry HospitalBasophils Auto (Bld) [#/Vol]Ordered By: Merary Booth on 64-57-9656Xtvlzbhdc (Bld) [#/Vol]0.1 10*3/uL0.0-0.2FWright-Patterson Medical CenterBasophils/100 WBC Auto (Bld)Ordered By: Merary Booth on 11-05-2022 Basophils/100 WBC (Bld)0.9 %.Martins Ferry HospitalBilirubin.total [Mass/volume] in Serum or PlasmaOrdered By: Merary Booth on 11-05-2022 Bilirubin [Mass/Vol]0.5 mg/dL0.3-1.0Mart[facility] Ferry HospitalCalcium [Mass/volume] in Serum or PlasmaOrdered By: Merary Booth on 52-74-1173Fwmslpo [Mass/Vol]9.2 mg/dL8.6-10.3FWright-Patterson Medical CenterCarbon dioxide, total [Moles/volume] in Serum or PlasmaOrdered By: Merary Booth on 11-05-2022 CO2 [Moles/Vol]29.8 mmol/L21.0-31.0Mart[facility] Ferry HospitalChloride [Moles/volume] in Serum or PlasmaOrdered By: Merary Booth on 11-05-2022 Chloride [Moles/Vol]106 mmol/Z82-103OqymuwmouMartins Ferry HospitalCreatinine [Mass/volume] in Serum or PlasmaOrdered By: Merary Booth on 11-05-2022 Creatinine [Mass/Vol]1.07 mg/dL0.60-1.20[facility] Eosinophils Auto (Bld) [#/Vol]Ordered By: Merary Booth on 11-05-2022 Eosinophils (Bld) [#/Vol]0.2 10*3/uL0.0-0.45[facility] Eosinophils/100 WBC Auto (Bld)Ordered By: Merary Booth on 11-05-2022 Eosinophils/100 WBC (Bld)3.0 %.[facility] HospitalErythrocyte distribution width Auto (RBC) [Ratio]Ordered By: Merary Booth on 11-05-2022 Erythrocyte distribution width (RBC) [Ratio]15.0 %11.9-15.3FWright-Patterson Medical CenterGlobulin Calc (S) [Mass/Vol]Ordered By: Merary Booth 65-21-7188Nqavpsih (S) [Mass/Vol]2.1 g/dLMartins Ferry Hospital Glucose [Mass/volume] in Serum or PlasmaOrdered By: Merary Booth 11-05-2022 Glucose [Mass/Vol]93 mg/jE57-499TtvcnmdhbMartins Ferry HospitalHematocrit Auto (Bld) [Volume fraction]Ordered By: Merary Booth on 95-89-0370Bpocxgjvbl (Bld) [Volume fraction]38.3 %34.0-46.4FWright-Patterson Medical CenterHemoglobin [Mass/volume] in BloodOrdered By: Merary Booth on 82-70-2752Gleadereaw (Bld) [Mass/Vol]12.8 g/dL11.8-15.4FWright-Patterson Medical CenterLeukocytes [#/volume] corrected for nucleated erythrocytes in Blood by Automated coun Ordered By: Merary Booth on 81-27-1818RXP corrected for nucl RBC Auto (Bld) [#/Vol]6.8 10*3/uL3.8-11.6FWright-Patterson Medical CenterLymphocytes Auto (Bld) [#/Vol]Ordered By: Merary Booth on 95-61-6276Zlmizpoyzuq (Bld) [#/Vol] 1.4 10*3/uL1.00-4.8[facility]erry HospitalLymphocytes/100 WBC Auto (Bld)Ordered By: Merary Booth on 57-16-8159Biwgucxvidx/100 WBC (Bld)20.7 %. [facility]H Auto (RBC) [Entitic mass]Ordered By: Merary Booth on 44-64-5393CCB (RBC) [Entitic mass]31.3 pg24.7-34.3FWright-Patterson Medical CenterMCHC Auto (RBC) [Mass/Vol]Ordered By: Merary Booth on 60-63-4161QJRX (RBC) [Mass/Vol]33.3 g/dL32.0-35.0[facility] HospitalMCV Auto (RBC) [Entitic vol]Ordered By: Merary Booth on 10-95-6181WHQ (RBC) [Entitic vol]93.9 iU66-627LrakcmcdnMartins Ferry HospitalMonocytes Auto (Bld) [#/Vol]Ordered By: Merary Booth on 01-97-2001Kvjnywsoo (Bld) [#/Vol]0.6 10*3/uL0.0-0.8[facility] HospitalMonocytes/100 WBC Auto (Bld) Ordered By: Merary Booth on 32-10-7156Idhkwvrxu/100 WBC (Bld)8.7 %.[facility] HospitalNeutrophils Auto (Bld) [#/Vol]Ordered By: Merary Booth on 81-29-7927Fzrwinutakd (Bld) [#/Vol]4.5 10*3/uL1.8-7.7FWright-Patterson Medical CenterNeutrophils/100 WBC Auto (Bld)Ordered By: Merary Booth on 42-79-5071Jacjiqiqvly/100 WBC (Bld)66.7 %.[facility] HospitalNo Panel InformationOrdered By: Merary Booth on 93-88-4918Hvkphtawt GFR (CKD-EPI) 54.170 mL/MinMartins Ferry HospitalPharmacy Creatinine Clearance (ChemN/AFWright-Patterson Medical CenterNucleated erythrocytes [Presence] in Blood by Automated countOrdered By: Merary Booth on 92-99-3314Pftstzupv RBC Auto Ql (Bld)0.0 /100{WBC}0-0.5FWright-Patterson Medical CenterPlatelet mean volume Auto (Bld) [Entitic vol]Ordered By: Merary Booth on 75-13-1338Iopwhhhb mean volume (Bld) [Entitic vol]8.0 fL6.3-10.7FWright-Patterson Medical Center Platelets Auto (Bld) [#/Vol]Ordered By: Merary Booth on 36-10-5214Xmlfbqulq (Bld) [#/Vol]261 10*3/yC821-984AmwagtrumMartins Ferry HospitalPotassium [Moles/volume] in Serum or PlasmaOrdered By: Merary Booth on 11-05-2022 Potassium [Moles/Vol]4.2 mmol/L3.5-5.1FWright-Patterson Medical CenterProtein [Mass/volume] in Serum or PlasmaOrdered By: Merary Booth on 34-91-3553Txifelf [Mass/Vol]6.2 g/dL6.4-8.9Mart[facility]erry HospitalRBC Auto (Bld) [#/Vol] Ordered By: Merary Booth on 14-68-3708QZC (Bld) [#/Vol]4.08 10*6/uL3.60-5.00 [facility] Hospitalerum or plasma albumin/globulin mass ratio Ordered By: Merary Booth on 95-28-1355Mgzeuxv/Globulin [Mass ratio]2.0 {ratio} [facility] Hospitalerum or plasma anion gap determinationOrdered By: Merary Booth on 62-77-5456Kuqzc gap [Moles/Vol]10.4 mmol/L6.0-15.0 [facility] Hospitalodium [Moles/volume] in Serum or PlasmaOrdered By: Merary Booth on 05-02-0477Trwdwz [Moles/Vol]142 mmol/W328-628XdlhpvuafMartins Ferry HospitalUrea nitrogen [Mass/volume] in Serum or PlasmaOrdered By: Merary Booth on 23-09-1158Xvhk nitrogen [Mass/Vol]16 mg/dL7-25Mart[facility] Ferry HospitalWBC Auto (Bld) [#/Vol]Ordered By: Merary Booth on 39-64-7026BES (Bld) [#/Vol]6.8 10*3/uL3.8-11.6FWright-Patterson Medical Center XR hand LT min 3V*on 27-77-4153NN hand LT min 3V*[facility] [employer] Other XR hand LT min 3V*[facility] [employer] Other XR hand LT min 3V*[address] [place] [address] [employer] Other XR hand LT min 3V*GALA Bowers [address]Vubcl [employer] Other XR hand LT min 3V*[facility] [employer] Other XR hand LT min 3V*[facility] [employer] Other XR hand LT min 3V*Patient: Hola Douglas MR#: [id number] [employer] Other XR hand LT min 3V*[address] [place] [address] [employer] Other XR hand LT min 3V*: 1945 Acct:[id number] [employer] Other XR hand LT min 3V*Age/Sex: 77 / F ADM Date: 11/03/22 [employer] Other XR hand LT min 3V*Loc: SOX Room: Type: [facility] [employer] Other XR hand LT min 3V*Attending Dr: Merary Booth MD [facility] [employer] Other XR hand LT min 3V*Copies to: Merary Booth MDFairfax Hospital [employer] Other XR hand LT min 3V*Ordering Provider: Merary Booth MDSaint Vincent [employer] Other XR hand LT min 3V*Date of Service: 11/03/22[facility] [employer] Other XR hand LT min 3V* XR/XR hand LT min 3V*: Unilateral primary osteoarthritis of [facility] [employer] Other XR hand LT min 3V*carpometacarpal [facility] [employer] Other XR hand LT min 3V*XR hand LT min 3V* 11/03/2022 10:40 [facility] [employer] Other XR hand LT min 3V*SIGNS AND SYMPTOMS: Left first carpal metacarpal joint painFairfax Hospital [employer] Other XR hand LT min 3V*PROTOCOL: Frontal, lateral, and oblique radiographs of the left handFairfax Hospital [employer] Other XR hand LT min 3V*COMPARISON: [facility] [employer] Other XR hand LT min 3V*FINDINGS:[facility] [employer] Other XR hand LT min 3V*There is significant degenerative change of the first carpal metacarpal joint space. [facility] [employer] Other XR hand LT min 3V*of degenerative changes are noted in the first metacarpal phalangeal joint space. There isFairfax Hospital [employer] Other XR hand LT min 3V*significant degenerative change with findings suggesting erosive osteoarthritis in the [facility] [employer] Other XR hand LT min 3V*interphalangeal joints diffusely. There is no fracture or dislocation. No significant soft tissueFairfax Hospital [employer] Other XR hand LT min 3V*swelling vascular calcifications are present in the volar soft tissues.[employer] Other XR hand LT min 3V* XR/XR hand LT min 3V*[employer] Other XR hand LT min 3V*IMPRESSION:[employer] Other XR hand LT min 3V*Findings consistent with multifocal erosive osteoarthritis as above.[employer] Other XR hand LT min 3V*No acute bony injury.[employer] Other XR hand LT min 3V*Impression dictated by: Roberto Markham M.D.11/03/2022 2:00 [facility] [employer] Other XR hand LT min 3V*Dictation Location: [address] [employer] Other XR hand LT min 3V*Transcribed By: NATO 11/03/22 [facility] [place] [employer] Other XR hand LT min 3V*Dictated By: Roberto Markham II, MD 11/03/[address] [place] [address] [employer] Other XR hand LT min 3V*Signed By:[employer] Other XR hand LT min 3V*11/03/22 [facility] Other Alanine aminotransferase [Enzymatic activity/volume] in Serum or PlasmaOrdered By: Erich Gillis on 04-93-4455AOQ [Catalytic activity/Vol]28 U/L7-52[facility] HospitalAlbumin [Mass/volume] in Serum or Plasma by Bromocresol green (BCG) dye binding methoOrdered By: Erich Gillis on 24-23-4723Ibqfvvv BCG dye [Mass/Vol]4.0 g/dL3.5-5.7FWright-Patterson Medical CenterAlkaline phosphatase [Enzymatic activity/volume] in Serum or PlasmaOrdered By: Erich Gillis on 74-85-8947ASU [Catalytic activity/Vol]72 U/L 34-104Mart[facility] Ferry HospitalAspartate aminotransferase [Enzymatic activity/volume] in Serum or PlasmaOrdered By: Erich Gillis on 61-99-9050JQV [Catalytic activity/Vol]18 U/Z66-75WsmbndukpMartins Ferry Hospital Bilirubin.total [Mass/volume] in Serum or PlasmaOrdered By: Erich Gillis on 47-94-9777Noxrolsfj [Mass/Vol]0.6 mg/dL0.3-1.0[facility] Calcium [Mass/volume] in Serum or PlasmaOrdered By: Erich Gillis on 09-20-2022 Calcium [Mass/Vol]8.9 mg/dL8.6-10.3FWright-Patterson Medical CenterCarbon dioxide, total [Moles/volume] in Serum or PlasmaOrdered By: Erich Gillis on 04-91-2438MC5 [Moles/Vol]25.7 mmol/L21.0-31.0[facility] Chloride [Moles/volume] in Serum or PlasmaOrdered By: Erich Gillis on 09-20-2022 Chloride [Moles/Vol]106 mmol/H23-270DslksvuiyMartins Ferry HospitalCreatinine [Mass/volume] in Serum or PlasmaOrdered By: Erich Gillis 73-37-4832Hatumzpdwk [Mass/Vol]1.02 mg/dL0.60-1.20[facility] HospitalGlobulin Calc (S) [Mass/Vol]Ordered By: Erich Gillis on 11-33-8829Zuijhtck (S) [Mass/Vol]2.3 g/dL [facility] HospitalGlucose [Mass/volume] in Serum or PlasmaOrdered By: Erich Gillis on 60-60-6602Kivgqqc [Mass/Vol]127 mg/fA22-128KwtwwoqwmMartins Ferry HospitalComment on above:ADA recommended reference rangeRandom Glucose Reference Range is dependent on time and content of last meal. Glucose of more than 200 mg/dL in a nonstressed, ambulatory subject supports the diagnosisof Diabetes Mellitus.Hepatitis B virus surface Ag [Presence] in Serum or Plasma by ImmunoassayOrdered By: Erich Gillis on 44-92-9689LHY surface Ag IA QlNegative NegativeMartins Ferry HospitalHepatitis C virus IgG Ab [Presence] in Serum or Plasma by ImmunoassayOrdered By: Erich Gillis on 31-65-2016OFC IgG IA Ql Non-ReactiveNon ReactiveMartins Ferry HospitalHepatitis C virus RNA [Units/volume] (viral load) in Serum or Plasma by HANNAH with probOrdered By: Erich Gillis on 35-01-3254OMM RNA HANNAH+probe QnN/[facility] Hepatitis C virus RNA [log units/volume] (viral load) in Serum or Plasma by HANNAH withOrdered By: Erich Gillis on 13-00-3204NIM RNA HANNAH+probe [Log units/Vol]N/A [facility] HospitalNo Panel InformationOrdered By: Erich Gillis on 56-73-2635Nwfispcwv GFR (CKD-EPI)57.371 mL/MinMartins Ferry Hospital Hepatitis A IgM AntibodyNegativeNegativeMartins Ferry Hospital Hepatitis B Core IgM AntibodyNegativeNegativeMartins Ferry Hospital Hepatitis C InterpretationSee comment.[facility] HospitalComment on above:Not infected with HCV unless early or acute infection issuspected (which may be delayed in an immunocompromisedindividual), or other evidence exists to indicate HCVinfection.Performed at: [employer] [id number] Director: Campbell Abrams PhD, Phone: [phone] Hepatitis C RNA QuantitativeN/[facility]Ph[facility] Creatinine Clearance (ChemN/[facility] HospitalPotassium [Moles/volume] in Serum or PlasmaOrdered By: Erich Gillis on 17-97-0550Ypgzasagz [Moles/Vol]3.7 mmol/L3.5-5.1FWright-Patterson Medical CenterProtein [Mass/volume] in Serum or PlasmaOrdered By: Erich Gillis on 17-66-8524Tmztfsh [Mass/Vol]6.3 g/dL6.4-8.9[facility] Hospitalerum or plasma albumin/globulin mass ratioOrdered By: Eirch Gillis on 12-86-1968Hhtnhfg/Globulin [Mass ratio]1.7 {ratio}[facility] Hospitalerum or plasma anion gap determinationOrdered By: Erich Gillis on 81-54-1608Rjrhn gap [Moles/Vol]15.0 mmol/L6.0-15.0[facility] Hospitalodium [Moles/volume] in Serum or PlasmaOrdered By: Erich Gillis on 89-22-2309Vznivl [Moles/Vol]143 mmol/F970-808 [facility] HospitalUrea nitrogen [Mass/volume] in Serum or Plasma Ordered By: Erich Gillis on 18-88-6725Vjkn nitrogen [Mass/Vol]12 mg/dL7-25 [facility] HospitalAlanine aminotransferase [Enzymatic activity/volume] in Serum or PlasmaOrdered By: Erich Gillis on 81-15-6979DML [Catalytic activity/Vol]65 U/L7-52[facility] HospitalAlbumin [Mass/volume] in Serum or Plasma by Bromocresol green (BCG) dye binding metho Ordered By: Erich Gillis on 29-07-7402Qklwqgr BCG dye [Mass/Vol]3.6 g/dL3.5-5.7 [facility] HospitalAlkaline phosphatase [Enzymatic activity/volume] in Serum or PlasmaOrdered By: Erich Gillis on 13-78-6679EHX [Catalytic activity/Vol]87 U/E48-590FzefgrjbpMartins Ferry HospitalAspartate aminotransferase [Enzymatic activity/volume] in Serum or PlasmaOrdered By: Erich Gillis on 21-02-6249LPQ [Catalytic activity/Vol]26 U/Z83-63QfmpijozaMartins Ferry HospitalBasophils Auto (Bld) [#/Vol]Ordered By: Erich Gillis on 09-08-2022 Basophils (Bld) [#/Vol]0.1 10*3/uL0.0-0.2FWright-Patterson [facility] Center Basophils/100 WBC Auto (Bld)Ordered By: Erich Gillis on 15-00-3565Irbjuwwxq/100 WBC (Bld)0.7 %.[facility] HospitalBilirubin.total [Mass/volume] in Serum or PlasmaOrdered By: Erich Gillis on 14-45-4059Sybmpcigc [Mass/Vol]0.3 mg/dL0.3-1.0[facility] HospitalCalcium [Mass/volume] in Serum or PlasmaOrdered By: Erich Gillis on 27-68-3229Jlbztgn [Mass/Vol]8.6 mg/dL8.6-10.3 [facility] HospitalCarbon dioxide, total [Moles/volume] in Serum or PlasmaOrdered By: Erich Gillis on 48-38-4029ZA7 [Moles/Vol]25.1 mmol/L21.0-31.0 [facility] HospitalChloride [Moles/volume] in Serum or Plasma Ordered By: Erich Gillis on 49-99-8332Vcnvsyuz [Moles/Vol]107 mmol/L98-107 [facility] HospitalCholesterol [Mass/volume] in Serum or Plasma Ordered By: Erich Gillis on 45-25-4451Vuysysyvaln [Mass/Vol]208 mg/xR625-180 [facility] HospitalComment on above:Chol less than 200 mg/dl low riskChol 201-239 mg/dl borderline riskChol 240 mg/dl and greater high risk Cholesterol in LDL Calc [Mass/Vol]Ordered By: Erich Gillis on 09-08-2022 Cholesterol in LDL [Mass/Vol]122 mg/dL0-100[facility] Comment on above:LDL ATP III CLASSIFICATIONLDL less than 100 mg/dL OptimalLDL 100-129 mg/dL Near or above rzbyfyzNVX957-380 mg/dL Borderline highLDL 160-189 mg/dL HighLDL greater than 189 mg/dL Very highCholesterol in VLDL Calc [Mass/Vol]Ordered By: Eirch Gillis on 80-95-5161Zzkerzmxpou in VLDL [Mass/Vol]44 mg/dLMartins Ferry HospitalCreatinine [Mass/volume] in Serum or PlasmaOrdered By: Erich Gillis on 39-90-4489Oauymsmkmf [Mass/Vol]0.92 mg/dL 0.60-1.20[facility] HospitalEosinophils Auto (Bld) [#/Vol]Ordered By: Erich Gillis on 20-87-1042Vfqyqiihule (Bld) [#/Vol]0.3 10*3/uL0.0-0.45 [facility] HospitalEosinophils/100 WBC Auto (Bld)Ordered By: Erich Gillis on 33-38-8095Aqpwnqvbivf/100 WBC (Bld)2.7 %.[facility] HospitalErythrocyte distribution width Auto (RBC) [Ratio]Ordered By: Erich Gillis on 30-44-7150Hhspxszqcoz distribution width (RBC) [Ratio]13.6 %11.9-15.3FWright-Patterson Medical CenterGlobulin Calc (S) [Mass/Vol]Ordered By: Erich Gillis on 31-80-4677Yklqbklr (S) [Mass/Vol]2.3 g/dLMartins Ferry Hospital Glucose [Mass/volume] in Serum or PlasmaOrdered By: Erich Gillis on 09-08-2022 Glucose [Mass/Vol]112 mg/eP89-326DfyxgunjsMartins Ferry HospitalComment on above:ADA recommended reference rangeRandom Glucose Reference Range is dependent on time and content of last meal. Glucose of more than 200 mg/dL in a nonstressed, ambulatory subject supports the diagnosisof Diabetes Mellitus. Glucose mean value [Mass/volume] in Blood Estimated from glycated hemoglobin Ordered By: Erich Gillis on 56-08-0570Xbxpbep glucose Estimated from glycated hemoglobin (Bld) [Mass/Vol]146 mg/dLMartins Ferry HospitalHematocrit Auto (Bld) [Volume fraction]Ordered By: Erich Gillis on 61-59-5220Afxxtbvmig (Bld) [Volume fraction]38.6 %34.0-46.4FWright-Patterson Medical CenterHemoglobin A1c percentageOrdered By: Erich Gillis on 62-76-7881FrB2d (Bld) [Mass fraction]6.7 % 4.3-5.6FWright-Patterson Medical CenterComment on above:Increased risk for diabetes: 5.7 - 6.4diabetes: >6.4glycemic control for adults with diabetes: &l t;7.0Hemoglobin [Mass/volume] in BloodOrdered By: Erich Gillis on 09-08-2022 Hemoglobin (Bld) [Mass/Vol]12.8 g/dL11.8-15.4FW[facility] Center Leukocytes [#/volume] corrected for nucleated erythrocytes in Blood by Automated counOrdered By: Erich Gillis on 40-74-0814TLS corrected for nucl RBC Auto (Bld) [#/Vol]11.5 10*3/uL3.8-11.6FWright-Patterson Medical CenterLymphocytes Auto (Bld) [#/Vol]Ordered By: Erich Gillis on 91-20-4579Mbhervxfpqy (Bld) [#/Vol]1.1 10*3/uL1.00-4.8[facility] HospitalLymphocytes/100 WBC Auto (Bld) Ordered By: Erich Gillis on 78-48-6381Ynvgwppzbnr/100 WBC (Bld)9.3 %.[facility] HospitalH Auto (RBC) [Entitic mass]Ordered By: Erich Gillis on 47-64-9557NBY (RBC) [Entitic mass]31.2 pg24.7-34.3FWright-Patterson Medical CenterMCHC Auto (RBC) [Mass/Vol]Ordered By: Erich Gillis on 87-23-3994YQQP (RBC) [Mass/Vol]33.2 g/dL32.0-35.0[facility] HospitalMCV Auto (RBC) [Entitic vol]Ordered By: Erich Gillis on 07-77-7163XVE (RBC) [Entitic vol]94.1 fL 80-100[facility] HospitalMonocytes Auto (Bld) [#/Vol]Ordered By: Erich Gillis on 89-25-4579Otizbsgpt (Bld) [#/Vol]1.0 10*3/uL0.0-0.8[facility] HospitalMonocytes/100 WBC Auto (Bld)Ordered By: Erich Gillis on 36-09-7606Cewpfqrer/100 WBC (Bld)8.9 %.[facility] Neutrophils Auto (Bld) [#/Vol]Ordered By: Erich Gillis on 69-05-3585Fevbgmcgnzc (Bld) [#/Vol]9.0 10*3/uL1.8-7.7FWright-Patterson Medical CenterNeutrophils/100 WBC Auto (Bld)Ordered By: Erich Gillis on 39-83-2555Dwgrmbpxssr/100 WBC (Bld)78.4 %.[facility] HospitalNo Panel InformationOrdered By: Erich Gillis on 57-87-6879Plnomioao GFR (CKD-EPI)> 60.0 mL/MinMartins Ferry Hospital Pharmacy Creatinine Clearance (ChemN/AFWright-Patterson Medical CenterNucleated erythrocytes [Presence] in Blood by Automated countOrdered By: Erich Gillis on 50-35-8161Eaejcjwiz RBC Auto Ql (Bld)0.1 /100{WBC}0-0.5FWright-Patterson Medical CenterPlatelet mean volume Auto (Bld) [Entitic vol]Ordered By: Erich Gillis on 31-00-3735Fdkdpkon mean volume (Bld) [Entitic vol]8.6 fL6.3-10.7 [facility] HospitalPlatelets Auto (Bld) [#/Vol]Ordered By: Erich Gillis on 87-53-5310Phnjhxijo (Bld) [#/Vol]302 10*3/hF681-479BdtlqwcjcMartins Ferry HospitalPotassium [Moles/volume] in Serum or PlasmaOrdered By: Erich Gillis on 27-50-4965Aooevfuvu [Moles/Vol]3.7 mmol/L3.5-5.1FWright-Patterson Medical CenterProtein [Mass/volume] in Serum or PlasmaOrdered By: rEich Gillis on 95-86-7888Cjefxfm [Mass/Vol]5.9 g/dL6.4-8.9[facility] HospitalRBC Auto (Bld) [#/Vol]Ordered By: Erich Gillis on 47-65-3704RQF (Bld) [#/Vol]4.10 10*6/uL3.60-5.00[facility] Hospitalerum or plasma albumin/globulin mass ratioOrdered By: Erich Gillis on 21-86-2590Rkcnkav/Globulin [Mass ratio]1.6 {ratio}[facility] Hospitalerum or plasma anion gap determinationOrdered By: Erich Gillis on 36-64-6993Qtsij gap [Moles/Vol]12.6 mmol/L6.0-15.0[facility] Hospitalerum or plasma high density lipoprotein (HDL) cholesterol measurementOrdered By: Erich Gillis on 09-08-2022 Cholesterol in HDL [Mass/Vol]42 mg/yO63-62QdxmxdzdwMartins Ferry Hospital Comment on above:HDL CHOL ATP-III CLASSIFICATION Cardiovascular RiskHDL > or equal to 60 mg/dL LOWHDL < 40 mg/dL HIGHSerum or plasma total cholesterol/high density lipoprotein (HDL) cholesterol mass ratOrdered By: Erich Gillis on 77-03-1576Ysvnmgryhgm.total/Cholesterol in HDL [Mass ratio]5.0 {ratio}<5.0 [facility] Hospitalodium [Moles/volume] in Serum or PlasmaOrdered By: Erich Gillis on 86-01-2295Tlsfqy [Moles/Vol]141 mmol/O352-619RfwooadptMartins Ferry HospitalThyrotropin [Units/volume] in Serum or PlasmaOrdered By: Erich Gillis on 04-79-3766DET Qn4.72 m[IU]/L0.45-5.33[facility]erry HospitalTriglyceride [Mass/volume] in Serum or PlasmaOrdered By: Erich Gillis on 92-37-8850Dwvagffsudmp [Mass/Vol]220 mg/dL0-149[facility] Comment on above:TRIG ATP III CLASSIFICATIONTRIG less than 150 mg/dL NormalTRIG 150-199 mg/dL Borderline highTRIG 200-500 mg/dL High TRIG greater than 500 mg/dL Very highStandard traceable to the Center for Disease Conrtrol and Prevention (CDC) test method.Urea nitrogen [Mass/volume] in Serum or PlasmaOrdered By: Erich Gillis on 89-98-1300Rbla nitrogen [Mass/Vol]16 mg/dL7-25[facility] HospitalWBC Auto (Bld) [#/Vol]Ordered By: Erich Gillis on 77-36-9896MLN (Bld) [#/Vol]11.5 10*3/uL3.8-11.6FWright-Patterson Medical CenterAlanine aminotransferase [Enzymatic activity/volume] in Serum or PlasmaOrdered By: PROVIDER TEMSkyler on 85-12-9605YYT [Catalytic activity/Vol]39 U/L7-52[facility] HospitalAlbumin [Mass/volume] in Serum or Plasma by Bromocresol green (BCG) dye binding methoOrdered By: PROVIDER TEMP on 56-39-7035Lamyvnm BCG dye [Mass/Vol]4.2 g/dL3.5-5.7FWright-Patterson Medical CenterAlkaline phosphatase [Enzymatic activity/volume] in Serum or PlasmaOrdered By: PROVIDER TEMP on 99-58-4554WNH [Catalytic activity/Vol]71 U/C84-632CjscjvuidMartins Ferry HospitalAspartate aminotransferase [Enzymatic activity/volume] in Serum or PlasmaOrdered By: PROVIDER TEMP on 91-12-1988BPR [Catalytic activity/Vol]46 U/L 13-39Mart[facility] HospitalBasophils Auto (Bld) [#/Vol]Ordered By: PROVIDER TEMP on 56-84-3379Zaotsoczm (Bld) [#/Vol]0.0 10*3/uL0.0-0.2FWright-Patterson Medical CenterBasophils/100 WBC Auto (Bld)Ordered By: PROVIDER TEMP on 56-25-3393Krgnzjtxp/100 WBC (Bld)0.3 %.[facility] Bilirubin.total [Mass/volume] in Serum or PlasmaOrdered By: PROVIDER TEMP on 00-25-3150Egdqeiibu [Mass/Vol]0.5 mg/dL0.3-1.0[facility] Calcium [Mass/volume] in Serum or PlasmaOrdered By: PROVIDER TEMP on 08-26-2022 Calcium [Mass/Vol]8.9 mg/dL8.6-10.3FWright-Patterson Medical CenterCarbon dioxide, total [Moles/volume] in Serum or PlasmaOrdered By: PROVIDER TEMP on 23-10-8865TJ2 [Moles/Vol]28.0 mmol/L21.0-31.0[facility] Chloride [Moles/volume] in Serum or PlasmaOrdered By: PROVIDER TEMP on 45-48-3764Ixqhehgf [Moles/Vol]104 mmol/M25-190RdkksqnbpMartins Ferry Hospital Creatinine [Mass/volume] in Serum or PlasmaOrdered By: PROVIDER TEMP on 86-81-7029Fragscfjul [Mass/Vol]0.92 mg/dL0.60-1.20[facility] HospitalEosinophils Auto (Bld) [#/Vol]Ordered By: PROVIDER TEMP on 08-26-2022 Eosinophils (Bld) [#/Vol]0.1 10*3/uL0.0-0.45[facility] Eosinophils/100 WBC Auto (Bld)Ordered By: PROVIDER TEMP on 08-26-2022 Eosinophils/100 WBC (Bld)0.7 %.[facility] HospitalErythrocyte distribution width Auto (RBC) [Ratio]Ordered By: PROVIDER TEMP on 08-26-2022 Erythrocyte distribution width (RBC) [Ratio]14.1 %11.9-15.3FWright-Patterson Medical CenterGlobulin Calc (S) [Mass/Vol]Ordered By: PROVIDER TEMP on 47-95-9635Bxsvptkn (S) [Mass/Vol]2.9 g/dLMartins Ferry Hospital Glucose [Mass/volume] in Serum or PlasmaOrdered By: PROVIDER TEMP on 08-26-2022 Glucose [Mass/Vol]140 mg/uJ61-266CgfloseopMartins Ferry HospitalComment on above:ADA recommended reference rangeRandom Glucose Reference Range is dependent on time and content of last meal. Glucose of more than 200 mg/dL in a nonstressed, ambulatory subject supports the diagnosisof Diabetes Mellitus. Hematocrit Auto (Bld) [Volume fraction]Ordered By: PROVIDER TEMP on 08-26-2022 Hematocrit (Bld) [Volume fraction]39.0 %34.0-46.4FWright-Patterson Medical CenterHemoglobin [Mass/volume] in BloodOrdered By: PROVIDER TEMP on 08-26-2022 Hemoglobin (Bld) [Mass/Vol]13.1 g/dL11.8-15.4FWright-Patterson [facility] Center Leukocytes [#/volume] corrected for nucleated erythrocytes in Blood by Automated counOrdered By: PROVIDER TEMP on 10-01-5762AQU corrected for nucl RBC Auto (Bld) [#/Vol]9.5 10*3/uL3.8-11.6FWright-Patterson Medical CenterLymphocytes Auto (Bld) [#/Vol]Ordered By: PROVIDER TEMP on 01-39-5867Qkyupeegexb (Bld) [#/Vol]0.6 10*3/uL1.00-4.8Martins Ferry HospitalLymphocytes/100 WBC Auto (Bld)Ordered By: PROVIDER TEMP on 10-57-8072Jjwhoeqnirm/100 WBC (Bld)6.3 %. [facility] (RBC) [Entitic mass]Ordered By: PROVIDER TEMP on 23-28-0812UJS (RBC) [Entitic mass]31.7 pg24.7-34.3FWright-Patterson Medical CenterMCHC Auto (RBC) [Mass/Vol]Ordered By: PROVIDER TEMP on 59-45-2454YPQA (RBC) [Mass/Vol]33.6 g/dL32.0-35.0[facility] HospitalMCV Auto (RBC) [Entitic vol]Ordered By: PROVIDER TEMP on 69-74-9160RFC (RBC) [Entitic vol]94.4 oN23-635FxgcxphtoMartins Ferry HospitalMonocyte distribution width [Entitic volume] in Blood by AutomatedOrdered By: PROVIDER TEMP on 71-96-0209Tdwayqut distribution width Auto (Bld) [Entitic vol]22.87 % 0.00-20.00[facility] HospitalComment on above:For adults in ED, MDW > 20.0 may be associated with a higher risk of sepsis during the first 12 h rs of hospital admissionMonocytes Auto (Bld) [#/Vol]Ordered By: PROVIDER TEMP on 68-30-6167Xjayozkho (Bld) [#/Vol]1.0 10*3/uL0.0-0.8[facility] HospitalMonocytes/100 WBC Auto (Bld)Ordered By: PROVIDER TEMP on 08-26-2022 Monocytes/100 WBC (Bld)10.7 %.[facility] HospitalNeutrophils Auto (Bld) [#/Vol]Ordered By: PROVIDER TEMP on 19-17-7762Iyvmnjmlpqp (Bld) [#/Vol]7.8 10*3/uL1.8-7.7FWright-Patterson Medical CenterNeutrophils/100 WBC Auto (Bld) Ordered By: PROVIDER TEMP on 38-84-6540Rhligucbnth/100 WBC (Bld)82.0 %.[facility] HospitalNo Panel InformationOrdered By: PROVIDER TEMP on 49-06-6422Ontrmbiqo GFR (CKD-EPI)> 60.0 mL/MinMartins Ferry Hospital Pharmacy Creatinine Clearance (Chem53.30[facility] Nucleated erythrocytes [Presence] in Blood by Automated countOrdered By: PROVIDER TEMP on 90-32-5171Uoxzljlne RBC Auto Ql (Bld)0.0 /100{WBC}0-0.5 [facility] HospitalPlatelet mean volume Auto (Bld) [Entitic vol] Ordered By: PROVIDER TEMP on 14-66-5369Fvosqgrs mean volume (Bld) [Entitic vol] 8.6 fL6.3-10.7FWright-Patterson Medical CenterPlatelets Auto (Bld) [#/Vol] Ordered By: PROVIDER TEMP on 17-44-1968Lcssafqth (Bld) [#/Vol]249 10*3/qN004-460 [facility] HospitalPotassium [Moles/volume] in Serum or Plasma Ordered By: PROVIDER TEMP on 04-81-6649Yzivvqnfs [Moles/Vol]3.7 mmol/L3.5-5.1 [facility] HospitalProtein [Mass/volume] in Serum or PlasmaOrdered By: PROVIDER TEMP on 33-40-2801Zricywt [Mass/Vol]7.1 g/dL6.4-8.9[facility] HospitalRBC Auto (Bld) [#/Vol]Ordered By: PROVIDER TEMP on 65-08-0806HRC (Bld) [#/Vol]4.13 10*6/uL3.60-5.00[facility] Hospitalerum or plasma albumin/globulin mass ratioOrdered By: PROVIDER TEMP on 06-48-1869Ylkkncc/Globulin [Mass ratio]1.4 {ratio}[facility] Hospitalerum or plasma anion gap determinationOrdered By: PROVIDER TEMP on 82-07-4527Slnyn gap [Moles/Vol]11.7 mmol/L6.0-15.0[facility] Hospitalodium [Moles/volume] in Serum or PlasmaOrdered By: PROVIDER TEMP on 04-81-5569Mvluvw [Moles/Vol]140 mmol/H365-122TnbhnafwaMartins Ferry Hospital Urea nitrogen [Mass/volume] in Serum or PlasmaOrdered By: PROVIDER TEMP on 56-36-8985Goys nitrogen [Mass/Vol]13 mg/dL7-25[facility] WBC Auto (Bld) [#/Vol]Ordered By: PROVIDER TEMP on 19-29-4937EJF (Bld) [#/Vol] 9.5 10*3/uL3.8-11.6FWright-Patterson Medical CenterAlanine aminotransferase [Enzymatic activity/volume] in Serum or PlasmaOrdered By: Erich Gillis on 30-75-5774PYD [Catalytic activity/Vol]30 U/L7-52[facility] HospitalAlbumin [Mass/volume] in Serum or Plasma by Bromocresol green (BCG) dye binding methoOrdered By: Erich Gillis on 11-16-9313Oedycoc BCG dye [Mass/Vol]4.3 g/dL3.5-5.7FWright-Patterson Medical CenterAlkaline phosphatase [Enzymatic activity/volume] in Serum or PlasmaOrdered By: Erich Gillis on 51-91-4844XCP [Catalytic activity/Vol]81 U/T61-517OmlxevcfpMartins Ferry HospitalAspartate aminotransferase [Enzymatic activity/volume] in Serum or PlasmaOrdered By: Erich Gillis on 82-07-7646KGG [Catalytic activity/Vol]25 U/T91-78VouskicweMartins Ferry HospitalBasophils Auto (Bld) [#/Vol]Ordered By: Erich Gillis on 06-24-2022 Basophils (Bld) [#/Vol]0.1 10*3/uL0.0-0.2FWright-Pat[facility] Center Basophils/100 WBC Auto (Bld)Ordered By: Erich Gillis on 40-63-3958Fsapivcul/100 WBC (Bld)1.0 %.[facility] HospitalBilirubin.total [Mass/volume] in Serum or PlasmaOrdered By: Erich Gillis on 10-27-3503Orqqgamwp [Mass/Vol]0.5 mg/dL0.3-1.0[facility] HospitalCalcium [Mass/volume] in Serum or PlasmaOrdered By: Erich Gillis on 07-85-1464Rfcfkgf [Mass/Vol]10.1 mg/dL8.6-10.3 [facility] HospitalCarbon dioxide, total [Moles/volume] in Serum or PlasmaOrdered By: Erich Gillis on 29-90-5895RA7 [Moles/Vol]29.6 mmol/L21.0-31.0 [facility] HospitalChloride [Moles/volume] in Serum or Plasma Ordered By: Erich Gillis on 54-25-7230Tfamkboa [Moles/Vol]105 mmol/L98-107 [facility] HospitalCholesterol [Mass/volume] in Serum or Plasma Ordered By: Erich Gillis on 74-73-8947Erlazzemxir [Mass/Vol]165 mg/gE409-592 [facility] HospitalComment on above:Chol less than 200 mg/dl low riskChol 201-239 mg/dl borderline riskChol 240 mg/dl and greater high risk Cholesterol in LDL Calc [Mass/Vol]Ordered By: Erich Gillis on 06-24-2022 Cholesterol in LDL [Mass/Vol]88 mg/dL0-100[facility] Comment on above:LDL ATP III CLASSIFICATIONLDL less than 100 mg/dL OptimalLDL 100-129 mg/dL Near or above upsebadNZQ905-454 mg/dL Borderline highLDL 160-189 mg/dL HighLDL greater than 189 mg/dL Very highCholesterol in VLDL Calc [Mass/Vol]Ordered By: Erich Gillis on 02-60-1029Jxhrqvsibuq in VLDL [Mass/Vol]26 mg/dLMartins Ferry HospitalCreatinine [Mass/volume] in Serum or PlasmaOrdered By: Erich Gillis on 54-22-4882Tjtjeyayit [Mass/Vol]0.97 mg/dL 0.60-1.20[facility] HospitalEosinophils Auto (Bld) [#/Vol]Ordered By: Erich Gillis on 87-63-0180Gtysligrmfo (Bld) [#/Vol]0.2 10*3/uL0.0-0.45 [facility] HospitalEosinophils/100 WBC Auto (Bld)Ordered By: Erich Gillis on 50-44-0266Uzuwcpqikqy/100 WBC (Bld)2.4 %.[facility] HospitalErythrocyte distribution width Auto (RBC) [Ratio]Ordered By: Erich Gillis on 03-69-7651Adcdlvhfufp distribution width (RBC) [Ratio]14.2 %11.9-15.3FWright-Patterson Medical CenterGlobulin Calc (S) [Mass/Vol]Ordered By: Erich Gillis on 91-73-1155Ecjdfmmd (S) [Mass/Vol]2.5 g/dLMartins Ferry Hospital Glucose [Mass/volume] in Serum or PlasmaOrdered By: Erich Gillis on 06-24-2022 Glucose [Mass/Vol]84 mg/pM10-795WpvhitfttMartins Ferry HospitalComment on above:ADA recommended reference rangeRandom Glucose Reference Range is dependent on time and content of last meal. Glucose of more than 200 mg/dL in a nonstressed, ambulatory subject supports the diagnosisof Diabetes Mellitus. Glucose mean value [Mass/volume] in Blood Estimated from glycated hemoglobin Ordered By: Erich Gillis on 78-11-6729Smocuph glucose Estimated from glycated hemoglobin (Bld) [Mass/Vol]140 mg/dLMartins Ferry HospitalHematocrit Auto (Bld) [Volume fraction]Ordered By: Erich Gillis on 53-07-9004Dviofnlpuf (Bld) [Volume fraction]41.1 %34.0-46.4FWright-Patterson Medical CenterHemoglobin A1c percentageOrdered By: Erich Gillis on 64-22-2139JtW8x (Bld) [Mass fraction]6.5 % 4.3-5.6FWright-Patterson Medical CenterComment on above:Increased risk for diabetes: 5.7 - 6.4diabetes: >6.4glycemic control for adults with diabetes: &l t;7.0Hemoglobin [Mass/volume] in BloodOrdered By: Erich Gillis on 06-24-2022 Hemoglobin (Bld) [Mass/Vol]13.7 g/dL11.8-15.4FWright-Pat[facility] Center Laboratory - Chemistry and Chemistry - challengeOrdered By: Erich Gillis on 20-57-0915AZU/1.73 sq M.predicted MDRD (S/P/Bld) [Vol rate/Area]mL/min/{1.73_m2} [facility] HospitalLeukocytes [#/volume] corrected for nucleated erythrocytes in Blood by Automated counOrdered By: Erich Gillis on 08-82-8127JBH corrected for nucl RBC Auto (Bld) [#/Vol]9.4 10*3/uL3.8-11.6FWright-Patterson Medical CenterLymphocytes Auto (Bld) [#/Vol]Ordered By: Erich Gillis on 06-24-2022 Lymphocytes (Bld) [#/Vol]2.0 10*3/uL1.00-4.8[facility] Lymphocytes/100 WBC Auto (Bld)Ordered By: Erich Gillis on 06-24-2022 Lymphocytes/100 WBC (Bld)20.7 %.[facility] HospitalH Auto (RBC) [Entitic mass]Ordered By: Erich Gillis on 53-51-1877FXU (RBC) [Entitic mass]31.5 pg24.7-34.3FWright-Patterson Medical CenterMCHC Auto (RBC) [Mass/Vol]Ordered By: Erich Gillis on 95-13-0317OEXO (RBC) [Mass/Vol]33.4 g/dL32.0-35.0[facility] HospitalMCV Auto (RBC) [Entitic vol]Ordered By: Erich Gillis on 50-14-8662SRK (RBC) [Entitic vol]94.2 qV92-280SngejskdnMartins Ferry Hospital Monocytes Auto (Bld) [#/Vol]Ordered By: Erich Gillis on 57-72-9976Kzuvqyeqp (Bld) [#/Vol]0.8 10*3/uL0.0-0.8[facility] HospitalMonocytes/100 WBC Auto (Bld)Ordered By: Erich Gillis on 62-08-9716Bmrvwddrv/100 WBC (Bld)8.0 %.[facility] HospitalNeutrophils Auto (Bld) [#/Vol]Ordered By: Erich Gillis on 02-29-3215Epfpwbgsbkq (Bld) [#/Vol]6.4 10*3/uL1.8-7.7FWright-Patterson Medical CenterNeutrophils/100 WBC Auto (Bld)Ordered By: Erich Gillis on 06-24-2022 Neutrophils/100 WBC (Bld)67.9 %.[facility] HospitalNo Panel InformationOrdered By: Erich Gillis on 34-19-9667Hgsphsjc Creatinine Clearance (ChemN/AFWright-Patterson Medical CenterNucleated erythrocytes [Presence] in Blood by Automated countOrdered By: Erich Gillis on 70-16-8291Tfsrebjil RBC Auto Ql (Bld)0.3 /100{WBC}0-0.5FWright-Patterson Medical CenterPlatelet mean volume Auto (Bld) [Entitic vol]Ordered By: Erich Gillis on 66-34-8290Nwgvasul mean volume (Bld) [Entitic vol]7.9 fL6.3-10.7FWright-Patterson Medical CenterPlatelets Auto (Bld) [#/Vol]Ordered By: Erich Gillis on 56-05-5917Buvojmgca (Bld) [#/Vol]314 10*3/wB026-100DunusizpeMartins Ferry HospitalPotassium [Moles/volume] in Serum or PlasmaOrdered By: Erich Gillis on 30-17-0985Ksgqezyum [Moles/Vol]4.6 mmol/L 3.5-5.1FWright-Patterson Medical CenterProtein [Mass/volume] in Serum or Plasma Ordered By: Erich Gillis on 21-92-9311Rvxslwa [Mass/Vol]6.8 g/dL6.4-8.9[facility] HospitalRBC Auto (Bld) [#/Vol]Ordered By: Erich Gillis on 09-92-4266HXU (Bld) [#/Vol]4.36 10*6/uL3.60-5.00[facility] Hospitalerum or plasma albumin/globulin mass ratioOrdered By: Erich Gillis on 20-52-0447Txaiqdy/Globulin [Mass ratio]1.7 {ratio}[facility] Hospitalerum or plasma anion gap determinationOrdered By: Erich Gillis on 50-83-0464Rpeia gap [Moles/Vol]13.0 mmol/L6.0-15.0[facility] Hospitalerum or plasma high density lipoprotein (HDL) cholesterol measurement Ordered By: Erich Gillis on 96-81-2549Xsipoawdrvk in HDL [Mass/Vol]51 mg/dL35-85 [facility] HospitalComment on above:HDL CHOL ATP-III CLASSIFICATION Cardiovascular RiskHDL > or equal to 60 mg/dL LOWHDL < 40 mg/dL HIGHSerum or plasma total cholesterol/high density lipoprotein (HDL) cholesterol mass ratOrdered By: Erich Gillis on 65-71-3691Ydjwqcqkvwr.total/Cholesterol in HDL [Mass ratio]3.2 {ratio}<5.0[facility] Hospitalodium [Moles/volume] in Serum or PlasmaOrdered By: Erich Gillis on 38-96-2432Gwwbto [Moles/Vol]143 mmol/U389-823HguzdeabbMartins Ferry HospitalThyrotropin [Units/volume] in Serum or PlasmaOrdered By: Erich Gillis on 68-40-4473OUB Qn2.41 m[IU]/L0.45-5.33[facility] HospitalTriglyceride [Mass/volume] in Serum or PlasmaOrdered By: Erich Gillis on 33-40-4767Btgxwmilbupj [Mass/Vol]130 mg/dL0-149[facility] HospitalComment on above:TRIG ATP III CLASSIFICATIONTRIG less than 150 mg/dL NormalTRIG 150-199 mg/dL Borderline highTRIG 200-500 mg/dL High TRIG greater than 500 mg/dL Very highStandard traceable to the Center for Disease Conrtrol and Prevention (CDC) test method. Urea nitrogen [Mass/volume] in Serum or PlasmaOrdered By: Erich Gillis on 96-34-8237Hdem nitrogen [Mass/Vol]19 mg/dL7-25[facility] WBC Auto (Bld) [#/Vol]Ordered By: Erich Gillis on 82-69-2051PBO (Bld) [#/Vol]9.4 10*3/uL3.8-11.6FWright-Patterson Medical CenterBasophils Auto (Bld) [#/Vol] Ordered By: Erich Gillis on 77-55-4652Dmidhmvab (Bld) [#/Vol]0.1 10*3/uL0.0-0.2 [facility] HospitalBasophils/100 WBC Auto (Bld)Ordered By: Erich Gillis on 68-82-4125Qqaimrpsk/100 WBC (Bld)0.7 %.[facility] Body fluid albumin measurement (mass/volume)Ordered By: Erich Gillis on 05-10-2022 Albumin (Body fld) [Mass/Vol]4.0 g/dL3.2-5.5FWright-Patterson [facility] Center COVID + FLU Quick Testingon 33-69-1172MVDG-CoV-2 (COVID-19) RNA HANNAH+probe Ql (Unsp spec)NegativeSaint Vincent [facility] Other COVID + FLU Quick TestingNegativeCitizens Memorial HealthcareMightyHive Other Complete Blood Count Auto Diffon 92-39-2872Ngpomwklw (Bld) [#/Vol]0.657743705 10*3/uLNormal0.0-0.2 10*3/[employer] Other Basophils/100 WBC (Bld)0.700 %. %[employer] Other Eosinophils (Bld) [#/Vol]0.474071431 10*3/uLNormal0.0- 0.45 10*3/[employer] Other Eosinophils/100 WBC (Bld)3.500 %. %[employer] Other Erythrocyte distribution width (RBC) [Ratio]13.900 % Lblzjs69.9-15.3 %[employer] Other Hematocrit (Bld) [Volume fraction]43.800 %Uryyuc90.0- 46.4 %[employer] Other Hemoglobin (Bld) [Mass/Vol]14.002555 g/uYEzrxxg25.8- 15.4 g/dLNoSnugg Home Other Lymphocytes (Bld) [#/Vol]1.289664339 10*3/uLNormal 1.00-4.8 10*3/[employer] Other Lymphocytes/100 WBC (Bld)20.700 %. %[employer] Other MCH (RBC) [Entitic mass]30.9000 roApbyic63.7-34.3 pg [employer] Other MCV (RBC) [Entitic vol]93.8000 jKLcgxuz08-750 KSButtercoin Other Monocytes (Bld) [#/Vol]0.729440327 10*3/uLNormal0.0- 0.8 10*3/[employer] Other Monocytes/100 WBC (Bld)9.500 %. %[employer] Other Neutrophils (Bld) [#/Vol]5.942023557 10*3/uLNormal1.8- 7.7 10*3/[employer] Other Neutrophils/100 WBC (Bld)65.600 %. %[employer] Other Platelet mean volume (Bld) [Entitic vol]8.4000 fL Normal6.3-10.7 [facility] CenterSn[facility] Home Other WBC (Bld) [#/Vol]8.792357818 10*3/uLNormal3.8-11.6 10*3/[employer] Other Complete Blood Count Auto Diff8.3 10*3/uLNormal3.8- 11.6 10*3/[employer] Other Complete Blood Count Auto Diff33.0 g/wCBldgzf88.0-35.0 g/dLBut[employer] Other Complete Blood Count Auto Diff0.1 /100{WBC}Normal0-0.5 /100{WBC}[facility] Other Comprehensive Metabolic Panelon 54-27-5662Duskfqc [Mass/Vol]4.752661 g/dLNormal3.2-5.5 g/dLSaint Vincent [facility] Other ALT [Catalytic activity/Vol]44 U/WSbiybk86-01 U/LNst. louis behavioral medicine institute [facility] Other Bilirubin [Mass/Vol]0.7328327 mg/dLNormal0.3-1.2 mg/dL [facility] Other Calcium [Mass/Vol]9.7619166 mg/dLNormal8.2-10.2 mg/dL [facility] Other CO2 [Moles/Vol]24.83843044 mmol/JPhpoov10.0-30.0 mmol/LNst. louis behavioral medicine institute [facility] Other Creatinine [Mass/Vol]1.52519461 mg/dLHigh0.44-1.03 mg/dLSaint Vincent [facility] Other Potassium [Moles/Vol]4.75057271 mmol/LNormal3.5-5.1 mmol/LNst. louis behavioral medicine institute [employer] Other Protein [Mass/Vol]7.185864 g/dLNormal6.1-7.9 g/dLSaint Vincent [facility] Other Comprehensive Metabolic Xmmcx88Jhqco [employer] Other Comprehensive Metabolic Yetax74Gbbiw [employer] Other Comprehensive Metabolic Panel3.0 g/dLSaint Vincent [facility] Other Creatinine and Glomerular filtration rate.predicted panel (S/P/Bld)Ordered By: Erich Gillis on 18-16-3015Vyqfsbvypn [Mass/Vol]1.18 mg/dL0.44-1.03[facility] HospitalEosinophils Auto (Bld) [#/Vol] Ordered By: Erich Gillis on 71-77-8871Vlibfupysjm (Bld) [#/Vol]0.3 10*3/uL0.0-0.45 [facility] HospitalEosinophils/100 WBC Auto (Bld)Ordered By: Erich Gillis on 56-14-4792Bdhukmgtefo/100 WBC (Bld)3.5 %.[facility] HospitalErythrocyte distribution width Auto (RBC) [Ratio]Ordered By: Erich Gillis on 77-61-1908Ithdoacrgpn distribution width (RBC) [Ratio]13.9 %11.9-15.3FWright-Patterson Medical CenterErythrocytes [#/volume] in Blood by Automated count Ordered By: Erich Gillis on 58-52-2082RBG (Bld) [#/Vol]4.67 10*6/uL3.60-5.00 [facility] HospitalEstimated glomerular filtration rate (GFR) non- AmericanOrdered By: Erich Gillis on 78-33-2416ALP/1.73 sq M.predicted among non-blacks MDRD (S/P/Bld) [Vol rate/Area]45 mL/MinMartins Ferry HospitalGlobulin Calc (S) [Mass/Vol]Ordered By: Erich Gillis on 05-10-2022 Globulin (S) [Mass/Vol]3.0 g/dLMartins Ferry HospitalHematocrit Auto (Bld) [Volume fraction]Ordered By: Erich Gillis on 41-03-5322Pokiwlddnf (Bld) [Volume fraction]43.8 %34.0-46.4FWright-Patterson Medical CenterHemoglobin [Mass/volume] in BloodOrdered By: Erich Gillis on 71-52-9602Ebownjiasq (Bld) [Mass/Vol]14.4 g/dL11.8-15.4FWright-Patterson Medical CenterLeukocytes [#/volume] corrected for nucleated erythrocytes in Blood by Automated coun Ordered By: Erich Gillis on 88-49-9769RWG corrected for nucl RBC Auto (Bld) [#/Vol]8.3 10*3/uL3.8-11.6FWright-Patterson Medical CenterLymphocytes Auto (Bld) [#/Vol]Ordered By: Erich Gillis on 91-98-7431Zvbddstvrxm (Bld) [#/Vol]1.7 10*3/uL1.00-4.8[facility] HospitalLymphocytes/100 WBC Auto (Bld) Ordered By: Erich Gillis on 64-46-8461Mnqcnnhbkvm/100 WBC (Bld)20.7 %.[facility] HospitalH Auto (RBC) [Entitic mass]Ordered By: Erich Gillis on 78-53-0360CPR (RBC) [Entitic mass]30.9 pg24.7-34.3FWright-Patterson Medical CenterMCHC Auto (RBC) [Mass/Vol]Ordered By: Erich Gillis on 08-09-9428NNMA (RBC) [Mass/Vol]33.0 g/dL32.0-35.0[facility] HospitalMCV Auto (RBC) [Entitic vol]Ordered By: Erich Gillis on 12-48-3310ZUB (RBC) [Entitic vol]93.8 fL 80-100[facility] HospitalMonocytes Auto (Bld) [#/Vol]Ordered By: Erich Gillis on 31-47-7668Sqyvijafv (Bld) [#/Vol]0.8 10*3/uL0.0-0.8[facility] HospitalMonocytes/100 WBC Auto (Bld)Ordered By: Erich Gillis on 14-58-7970Kjsfjwlug/100 WBC (Bld)9.5 %.[facility] Neutrophils Auto (Bld) [#/Vol]Ordered By: Erich Gillis on 35-46-6642Jdsfmgautmy (Bld) [#/Vol]5.4 10*3/uL1.8-7.7FWright-Patterson Medical CenterNeutrophils/100 WBC Auto (Bld)Ordered By: Erich iGllis on 36-87-2046Pximkwfafhs/100 WBC (Bld)65.6 %.[facility] HospitalNo Panel InformationOrdered By: Erich Gillis on 72-03-2900Zeskphqeo GFR ()54 mL/MinMartins Ferry HospitalComment on above:GFR estimated reference range: According to KDOQI guidelines, <60 ml/min/1.73m2 is sufficient todiagnose a patient with chronic kidney disease.Pharmacy Creatinine Clearance (ChemN/AFWright-Patterson Medical CenterNucleated erythrocytes [Presence] in Blood by Automated countOrdered By: Erich Gillis on 23-00-0169Zaxnmbvjo RBC Auto Ql (Bld)0.1 /100{WBC}0-0.5FWright-Patterson Medical CenterPlatelet mean volume Auto (Bld) [Entitic vol]Ordered By: Erich Gillis on 64-00-6280Ecvtqphi mean volume (Bld) [Entitic vol]8.4 fL6.3-10.7 [facility] HospitalPlatelets [#/volume] in Blood by Automated countOrdered By: Erich Gillis on 11-70-6811Clsftqthp (Bld) [#/Vol]327 10*3/uL 150-450[facility] HospitalProtein [Mass/volume] in Serum or Plasma Ordered By: Erich Gillis on 58-39-9572Kvsgqtk [Mass/Vol]7.0 g/dL6.1-7.9[facility] HospitalQuick Strepon 05-10-2022S. pyogenes Org specific cx Ql (Throat)NegativeSaint Vincent [facility] Other Quick StrepThe Editorialist [employer] Other RSVon 27-44-4630AME Ag IA Ql (Unsp spec)NegativeFairfax Hospital [employer] Other Serum or plasma alanine aminotransferase measurement without P-5'-P (enzymatic activiOrdered By: Erich Gillis on 74-04-5376WZQ No additional P-5'-P [Catalytic activity/Vol]44 U/D56-17BbkrnyypmNorwalk Memorial Hospitalerum or plasma albumin/globulin mass ratioOrdered By: Erich Gillis on 39-68-4617Olrkthh/Globulin [Mass ratio]1.3 {ratio}[facility] Hospitalerum or plasma alkaline phosphatase measurement (enzymatic activity/volume)Ordered By: Erich Gillis on 38-88-9997XFZ [Catalytic activity/Vol] 74 U/Y32-93KbsoreoxlNorwalk Memorial Hospitalerum or plasma anion gap determinationOrdered By: Erich Gillis on 34-26-7305Sltlv gap [Moles/Vol]14.3 mmol/L6.0-15.0[facility] Hospitalerum or plasma aspartate aminotransferase measurement (enzymatic activity/volume)Ordered By: Erich Gillis on 61-13-4645TFY [Catalytic activity/Vol]35 U/Q88-31FsebujfsdNorwalk Memorial Hospitalerum or plasma calcium measurement (mass/volume)Ordered By: Erich Gillis on 28-83-5264Mvzlotm [Mass/Vol]9.6 mg/dL8.2-10.2FWright-[facility] Center Serum or plasma chloride measurement (moles/volume)Ordered By: Erich Gillis on 33-30-7920Becljmzj [Moles/Vol]104 mmol/Q69-574KrgsyyzpsMartins Ferry Hospital Serum or plasma glucose measurement (mass/volume)Ordered By: Erich Gillis on 03-98-1251Lwaqseg [Mass/Vol]92 mg/tA10-024WwftyqsdnMartins Ferry Hospital Comment on above:ADA recommended reference rangeRandom Glucose Reference Range is dependent on time and content of last meal. Glucose of more than 200 mg/dL in a nonstressed, ambulatory subject supports the diagnosisof Diabetes Mellitus. Serum or plasma potassium measurement (moles/volume)Ordered By: Erich Gillis on 20-08-2205Tbvjeyfrw [Moles/Vol]4.1 mmol/L3.5-5.1FMercy Health St. Elizabeth Boardman Hospitalerum or plasma sodium measurement (moles/volume)Ordered By: Erich Gillis on 96-16-3473Azkhhx [Moles/Vol]139 mmol/V175-526FvoxusaeyMartins Ferry Hospital Serum or plasma total bilirubin measurement (mass/volume)Ordered By: Erich Gillis on 09-77-4167Ffiabyetm [Mass/Vol]0.4 mg/dL0.3-1.2FMercy Health St. Elizabeth Boardman Hospitalerum or plasma total carbon dioxide measurement (moles/volume)Ordered By: Erich Gillis on 19-88-0968JV3 [Moles/Vol]24.8 mmol/L22.0-30.0[facility] Hospitalerum or plasma urea nitrogen measurement (mass/volume)Ordered By: Erich Gillis on 92-17-3507Qwzj nitrogen [Mass/Vol]11 mg/dL9-[facility] HospitalWBC Auto (Bld) [#/Vol]Ordered By: Erich Gillis on 85-87-9070NMW (Bld) [#/Vol]8.3 10*3/uL3.8-11.6FWright-Patterson Medical CenterXR chest 2V*on 61-16-6851KD chest 2V*[facility] [employer] Other XR chest 2V*[facility] [employer] Other XR chest 2V*[address] [place] [address] [employer] Other XR chest 2V*GALA Bowers [address]Dutwh [employer] Other XR chest 2V*[facility] [employer] Other XR chest 2V*[facility] [employer] Other XR chest 2V*Patient: Hola Douglas MR#: [id number] [employer] Other XR chest 2V*[address] [place] [address] [employer] Other XR chest 2V*: 1945 Acct:[id number] [employer] Other XR chest 2V*Age/Sex: 76 / F ADM Date: 05/10/22[facility] [employer] Other XR chest 2V*Loc: XDS Room: Type: [facility] [employer] Other XR chest 2V*Attending Dr: Erich Gillis [facility] CenterRe.nooble Other XR chest 2V*Copies to: Erich Gillis,[employer] Other XR chest 2V*Ordering Provider: Erich Gillis,[facility] [employer] Other XR chest 2V*Date of Service: 05/10/22[facility] [employer] Other XR chest 2V* XR/XR chest 2V*: [facility]oughFair[facility] Hospital [employer] Other XR chest 2V*Chest 2 viewsFairfax Hospital [employer] Other XR chest 2V*CLINICAL HISTORY: Productive cough,[facility] [employer] Other XR chest 2V*COMPARISON: Chest 05/30/2017[facility] [employer] Other XR chest 2V*FINDINGS:[facility] [employer] Other XR chest 2V* XR/XR chest 2V*[facility] [employer] Other XR chest 2V*IMPRESSION:[facility] [employer] Other XR chest 2V*NO ACUTE CARDIOPULMONARY ABNORMALITY.[facility] [employer] Other XR chest 2V*Impression dictated by: Naldo Baltazar Jr., DRembertoORemberto05/10/2022 2:58 [facility] [employer] Other XR chest 2V*Dictation Location: [id number] [employer] Other XR chest 2V*Transcribed By: NATO 05/10/[address] [place] [address] [employer] Other XR chest 2V*Dictated By: Naldo Baltazar Jr, DO 05/10/[address] [place] [address] [employer] Other xr chest 2V*Signed By:[facility] [employer] Other xr chest 2V*05/10/[address] [place] [address] [employer] [address] head/brain wo/w conon [id number] head/brain wo/w [facility] [employer] Other ct head/brain [facility] [employer] Other ct head/brain wo/w [id number] [facility] [employer] Other ct head/brain wo/w [facility] [place] [id number] [employer] Other ct head/brain wo/w conCT Scan [facility] [employer] Other ct head/brain wo/w [facility] [employer] Other ct head/brain wo/w conPatient: Hola Douglas MR#: [id number] [employer] Other ct head/brain wo/w [id number] [place] [address] [employer] [address] head/brain wo/w conDOB: 1945 Acct:[id number] [facility] [employer] Other ct head/brain wo/w conAge/Sex: 76 / F ADM Date: 05/07/22[facility] [employer] Other ct head/brain wo/w conLoc: CT Room: Type: [facility] [employer] Other ct head/brain wo/w conAttending Dr: Erich Gillis [facility] [facility] Other ct head/brain wo/w conCopies to: Erich Gillis,[facility] Other ct head/brain wo/w conOrdering Provider: Erich Gillis,[facility] Other ct head/brain wo/w conDate of Service: 05/07/22[facility] Other ct head/brain wo/w conAccession #: ([id number]) CT/CT head/brain wo/w con: Headache;Lightheadedness;Right earNokindred hospital [facility]s Other ct head/brain wo/w conpain;MastoiditisNokindred hospital [facility] Other ct head/brain wo/w conEnhanced and unenhanced head CT [place] Other ct head/brain wo/w conTECHNIQUE: Contiguous axial imaging of the head.90 cc of Isovue-300The CT exam was performed usingSaint [facility] Other ct head/brain wo/w conone or more the following dose reduction techniques: Automated exposure control, adjustment of theNst. louis behavioral [facility] institute [facility] Other ct head/brain wo/w conMA and/or Kv according to patient size, or use of the iterative reconstruction technique.[place] Other ct head/brain wo/w conCOMPARISON:NoneNokindred hospital [facility]s Other ct head/brain wo/w conHISTORY:Headache. Lightheadedness.[place] Other ct head/brain wo/w conVentricles are normal in size and position allowing for diffuse brain parenchymal atrophy.[place] Other ct head/brain wo/w conDecreased density of the white matter is most consistent with chronic small vessel disease.[place] Other ct head/brain wo/w conNo intracranial hemorrhage, mass effect or herniation is identified.[place] Other ct head/brain wo/w conNo recent vascular distribution infarction is seen.[place] Other ct head/brain wo/w conNo abnormal extra-axial fluid collections identified.[place] Other ct head/brain wo/w conSinuses, orbits and mastoid air cells are unremarkable.[place] Other ct head/brain wo/w conBony structures are intact.[place] Other ct head/brain wo/w conNo pathologic enhancement or enhancing mass identified.[place] Other ct head/brain wo/w conORDER #: [id number] CT/CT head/brain wo/w [facility] Other ct head/brain wo/w conIMPRESSION:[place] Other ct head/brain wo/w conNo acute intracranial findings. [facility] Other ct head/brain wo/w conImpression dictated by: Meliton Herrera M.D.05/07/2022 3:01 [facility] Other ct head/brain wo/w conDictation Location: [facility] Other ct head/brain wo/w conTranscribed By: PWS 05/07/[address] [place] [address] [address] head/brain wo/w conDictated By: Meliton Herrera DO 05/07/[address] [place] [address] head/brain wo/w conSigned By:[place] Other ct head/brain wo/w con05/07/22 [facility] Other Creatinine (Bld) [Mass/Vol]Ordered By: Erich Gillis on 28-83-8094Zokrmpzcev [Mass/Vol]1.1 mg/dL0.6-1.3FWright-Patterson Medical Center Comment on above:ER/ESD physician is notified/shown all ISTAT results.Critical values may be confirmed by laboratorytesting ifdeemed necessary by ER attending doctor.No Panel InformationOrdered By: Erich Gillis on 55-82-3662MSX Estimated GFR Dvqoyclz20Hhjbqarza Regional Medical CenterComment on above:GFR estimated reference range: According to KDOQI guidelines, <60 ml/min/1.73m2 is sufficient todiagnose a patient with chronic kidney disease.POC Estimated GFR Non- Gfaf78AkyklovsrMartins Ferry HospitalCOVID + FLU Quick Testingon 57-81-7217MAVB-CoV-2 (COVID-19) RNA HANNAH+probe Ql (Unsp spec)NegativeButtercoin Other COVID + FLU Quick TestingNegativeButtercoin Other RSVon 25-77-5125NEL Ag IA Ql (Unsp spec)NegativeButtercoin Other Basi metabolic 2000 panelon 28-57-2227Ovlur gap [Moles/Vol]13 mmol/L9 - 18 mmol/LCleveland ClinicCalcium [Mass/Vol]9.5 mg/dL8.5 - 10.2 [address] Flat ClinicChloride [Moles/Vol]104 mmol/L97 - 105 mmol/L [address] [facility] ClinicCO2 [Moles/Vol]28 mmol/L22 - 30 mmol/LCleveland ClinicCreatinine [Mass/Vol]0.95 mg/dL0.58 - 0.96 mg/dLMercy Health St. Vincent Medical CenterEstimated Glomerular Filtration Rate63 mL/min/1.73m>=60 mL/min/1.73mCleveland ClinicGlucose [Mass/Vol]155 mg/wQKrgg35 - [address] Flat ClinicPotassium [Moles/Vol]3.8 mmol/L3.7 - 5.1 mmol/LCleveland ClinicSodium [Moles/Vol]145 mmol/GFxae884 - 144 mmol/LCleveland ClinicUrea nitrogen [Mass/Vol]13 mg/dL7 - 21 mg/dLMercy Health St. Vincent Medical CenterCHEMISTRYOrdered By: Dayan Hassan on 99-07-5539Jokmbhw [Mass/Vol]104 mg/dL High55 - 99 mg/dLCOMMUNITY H[facility] [place] POC SubsectionPOC Device [id number] Interpretation CodeCOMMUNITY HOSPITAL [facility] [place] POC SubsectionPOC User [id number] Interpretation CodeCOMMUNITY HOSPITAL [facility] [place] POC SubsectionPOC UsernameEBERSOLE, MARIAInvalid Interpretation Code [facility] [place] POC SubsectionMAM SCREENINGon 84-40-1369Bbazzgpdm ClinicBasophils Auto (Bld) [#/Vol]Ordered By: Erich Gillis on 18-31-8554Kdpcpctcw (Bld) [#/Vol]0.1 10*3/uL0.0-0.2FWright-Patterson Medical CenterBasophils/100 WBC Auto (Bld) Ordered By: Erich Gillis on 80-56-2547Fitdekqqz/100 WBC (Bld)0.9 %.[facility] Ferry HospitalBlood hemoglobin measurement (mass/volume)Ordered By: Erich Gillis on 08-00-0531Czvgvtuzux (Bld) [Mass/Vol]13.7 g/dL11.8-15.4FWright-Patterson Medical CenterBlood leukocytes automated count (number/volume)Ordered By: Erich Gillis on 94-67-3039BGZ (Bld) [#/Vol]9.2 10*3/uL4.5-11.0[facility]erry HospitalBody fluid albumin measurement (mass/volume)Ordered By: Erich Gillis on 83-13-9069Kqqhjnp (Body fld) [Mass/Vol]4.1 g/dL3.2-5.5FWright-Patterson Medical CenterCreatinine and Glomerular filtration rate.predicted panel (S/P/Bld)Ordered By: Erich Gillis on 41-98-1034Jxdidqbhna [Mass/Vol]1.17 mg/dL 0.44-1.03Mart[facility] Ferry HospitalEosinophils Auto (Bld) [#/Vol]Ordered By: Erich Gillis on 57-76-5460Kyzwnxahqio (Bld) [#/Vol]0.7 10*3/uL0.0-0.45 [facility] HospitalEosinophils/100 WBC Auto (Bld)Ordered By: Erich Gillis on 47-70-1068Tflqzuiegwm/100 WBC (Bld)7.3 %.[facility]erry HospitalErythrocyte distribution width Auto (RBC) [Ratio]Ordered By: Erich Gillis on 10-59-8541Npuwnacipsn distribution width (RBC) [Ratio]14.1 %11.9-15.3FWright-Patterson Medical CenterEstimated glomerular filtration rate (GFR) non- AmericanOrdered By: Erich Gillis on 77-55-0574VGS/1.73 sq M.predicted among non- blacks MDRD (S/P/Bld) [Vol rate/Area]45 mL/MinMartins Ferry Hospital Globulin Calc (S) [Mass/Vol]Ordered By: Erich Gillis on 27-45-0925Urvsrxej (S) [Mass/Vol]2.5 g/dLMartins Ferry HospitalHematocrit Auto (Bld) [Volume fraction]Ordered By: Erich Gillis on 91-89-4190Axucshvwrp (Bld) [Volume fraction] 40.9 %34.0-46.4FWright-Patterson Medical CenterLaboratory - Hematology and Cell countsOrdered By: Erich Gillis on 84-87-9730Kgfkizhnx RBC/100 WBC (Bld) [Ratio]0.1 %0-0.5FWright-Patterson Medical CenterLymphocytes Auto (Bld) [#/Vol]Ordered By: Erich Gillis on 01-66-3327Bxprbkwqxst (Bld) [#/Vol]2.1 10*3/uL1.00-4.8 [facility] HospitalLymphocytes/100 WBC Auto (Bld)Ordered By: Erich Gillis on 48-84-6967Vpwjbalhspn/100 WBC (Bld)23.2 %.[facility] Auto (RBC) [Entitic mass]Ordered By: Erich Gillis on 05-61-5134BNW (RBC) [Entitic mass]31.5 pg24.7-34.3FWright-Patterson Medical CenterMCHC Auto (RBC) [Mass/Vol]Ordered By: Erich Gillis on 18-18-4432PQSK (RBC) [Mass/Vol]33.4 g/dL 32.0-35.0Mart[facility]erry HospitalMCV Auto (RBC) [Entitic vol]Ordered By: Erich Gillis on 60-11-4157TIF (RBC) [Entitic vol]94.2 yE68-373CyoxbuqzyMartins Ferry HospitalMonocytes Auto (Bld) [#/Vol]Ordered By: Erich Gillis on 95-35-9590Yrimxhdio (Bld) [#/Vol]0.7 10*3/uL0.0-0.8Mart[facility] Ferry HospitalMonocytes/100 WBC Auto (Bld)Ordered By: Erich Gillis on 10-19-2021 Monocytes/100 WBC (Bld)7.7 %.[facility]erry HospitalNeutrophils Auto (Bld) [#/Vol]Ordered By: Erich Gillis on 77-89-5542Sjfwixvsxzi (Bld) [#/Vol]5.6 10*3/uL1.8-7.7FWright-Patterson Medical CenterNeutrophils/100 WBC Auto (Bld) Ordered By: Erich Gillis on 21-92-3248Zlcjagtlwro/100 WBC (Bld)60.9 %.[facility]erry HospitalNo Panel InformationOrdered By: Erich Gillis on 10-19-2021 Estimated GFR ()55 mL/MinMartins Ferry Hospital Comment on above:GFR estimated reference range: According to KDOQI guidelines, <60 ml/min/1.73m2 is sufficient todiagnose a patient with chronic kidney disease.Pharmacy Creatinine Clearance (ChemN/[facility] Platelet mean volume Auto (Bld) [Entitic vol]Ordered By: Erich Gillis on 88-55-5460Uwbmdtgg mean volume (Bld) [Entitic vol]9.1 fL6.3-10.7FWright-Patterson Medical CenterPlatelets Auto (Bld) [#/Vol]Ordered By: Erich Gillis on 44-79-9726Htqtnfqpa (Bld) [#/Vol]338 10*3/kP441-483MmzbxxltkMartins Ferry HospitalProtein [Mass/volume] in Serum or PlasmaOrdered By: Erich Gillis on 84-68-8890Qqqfzcf [Mass/Vol]6.6 g/dL6.1-7.9Mart[facility] Ferry HospitalRBC Auto (Bld) [#/Vol]Ordered By: Erich Gillis on 50-66-4986MZI (Bld) [#/Vol]4.34 10*6/uL3.60-5.00[facility] Hospitalerum or plasma alanine aminotransferase measurement without P-5'-P (enzymatic activiOrdered By: Erich Gillis on 13-90-4108DXN No additional P-5'-P [Catalytic activity/Vol]49 U/L10-60 [facility] Hospitalerum or plasma albumin/globulin mass ratio Ordered By: Erich Gillis on 24-72-8688Jufrbsg/Globulin [Mass ratio]1.6 {ratio} [facility] Hospitalerum or plasma alkaline phosphatase measurement (enzymatic activity/volume)Ordered By: Erich Gillis on 51-54-1551IYI [Catalytic activity/Vol]64 U/Q36-92RgsdrekepNorwalk Memorial Hospitalerum or plasma aspartate aminotransferase measurement (enzymatic activity/volume)Ordered By: Erich Gillis on 11-64-9280UQW [Catalytic activity/Vol]47 U/W62-42NzqqevguhNorwalk Memorial Hospitalerum or plasma calcium measurement (mass/volume)Ordered By: Erich Gillis on 35-10-4176Irooycj [Mass/Vol]10.0 mg/dL8.2-10.2FMercy Health St. Elizabeth Boardman Hospitalerum or plasma chloride measurement (moles/volume) Ordered By: Erich Gillis on 17-33-5522Alalyhgh [Moles/Vol]103 mmol/L95-114 [facility] Hospitalerum or plasma glucose measurement (mass/volume)Ordered By: Erich Gillis on 44-41-7251Akbstti [Mass/Vol]95 mg/dL 70-100Mart[facility] Ferry HospitalComment on above:ADA recommended reference range Random Glucose Reference Range is dependent on time and content of last meal. Glucose of more than 200 mg/dL in a nonstressed, ambulatory subject supports the diagnosis of Diabetes Mellitus.Serum or plasma potassium measurement (moles/volume)Ordered By: Erich Gillis on 97-82-5926Jlrmvpwau [Moles/Vol]4.0 mmol/L3.5-5.1FMercy Health St. Elizabeth Boardman Hospitalerum or plasma sodium measurement (moles/volume)Ordered By: Erich Gillis on 84-69-3257Sotfeb [Moles/Vol]139 mmol/L 136-146Norwalk Memorial Hospitalerum or plasma total bilirubin measurement (mass/volume)Ordered By: Erich Gillis on 67-32-7582Xbobwzvth [Mass/Vol]0.6 mg/dL0.3-1.2FMercy Health St. Elizabeth Boardman Hospitalerum or plasma total carbon dioxide measurement (moles/volume)Ordered By: Erich Gillis on 10-19-2021 CO2 [Moles/Vol]27.5 mmol/L22.0-30.0[facility] Hospitalerum or plasma urea nitrogen measurement (mass/volume)Ordered By: Erich Gillis on 63-50-8430Xwpp nitrogen [Mass/Vol]15 mg/dL9-23[facility] TSH DL <= 0.005 mIU/L QnOrdered By: Erich Gillis on 13-70-7178UBR Qn3.51 m[IU]/L 0.45-5.33Martins Ferry HospitalXR Knee AP and Lateral and Merchantson 44-23-8136LJFIREOIPN: Unchanged left knee arthroplasty without evidence of hardware complication. Qa Intern: HEIDI Transcribe Date/Time: Nov 29 2019 3:48P Dictated by : NATTY MALHOTRA MD This examination was interpreted and the report reviewed and electronically signed by: NATTY MALHOTRA MD on Nov 29 2019 3:49PM [facility] DIVISION OF RADIOLOGY* * *Final Report* * [...] osteolysis or periprosthetic fracture. DIVISION OF RADIOLOGYProvider, [facility] [place] - 11/29/2019 * * *Final Report* * [...] knee arthroplasty without evidence of hardware complication. Qa Intern: HEIDI Transcribe Date/Time: Nov 29 2019 3:48P Dictated by : NATTY MALHOTRA MD This examination was interpreted and the report reviewed and electronically signed by: NATTY MALHOTRA MD on Nov 29 2019 3:49PM EST [facility] CenterRadiology Study observation (narrative)[facility] CenterXR Knee AP and Lateral and MerchantsOrdered By: Ccf Provider on 36-39-7609Iftqmluwq Clinic Vital Signs Date TimeVital SignValuePerforming FrfmczqazSryectfm26-61-0554 10:33-0400Body yqschu629.91 cmBrett Kuns DO Work Phone: [facility]10-20-2025 10:33-0400 Body mass index (BMI) [Ratio]29.5 kg/e1Cmjtf Kuns DO Work Phone: [phone] [place], [place] 4580810-20-2025 10:33-0400 Body .4 kgBrett Kuns DO Work Phone: [phone] [place], [place] 4580810-20-2025 10:33-0400 Diastolic blood heziuuud69 mm[Hg]Erich Kuns DO Work Phone: [address] [place], [place] 2457910-20-2025 10:33-0400 Heart rate79 /minBrett Kuns DO Work Phone: [phone] [place], [place] 4580810-20-2025 10:33-0400 Respiratory rate16 /minBrett Kuns DO Work Phone: [phone]-[facility]10-20-2025 10:33-0400 SaO2% (BldA) [Mass fraction]97 %Erich Kuns DO Work Phone: [phone] [place], [place] 4580810-20-2025 10:33-0400 Systolic blood emncrftx810 mm[Hg]Erich Kuns DO Work Phone: [facility]09-09-2025 10:21-0400 Body qeyyqr868.72 cmBrett Kuns DO Work Phone: [facility]09-09-2025 10:21-0400 Body mass index (BMI) [Ratio]28.5 kg/j3Lflfd Kuns DO Work Phone: [facility]09-09-2025 10:21-0400 Body .27 kgBrett Kuns DO Work Phone: [phone] [place], [place] 4580809-09-2025 10:21-0400 Diastolic blood lchguqmm65 mm[Hg]Erich Kuns DO Work Phone: [phone]09-09-2025 10:21-0400 Heart rate79 /minBrett Kuns DO Work Phone: [phone]09-09-2025 10:21-0400 Respiratory rate16 /minBrett Kuns DO Work Phone: [phone]09-09-2025 10:21-0400 SaO2% (BldA) [Mass fraction]95 %Erich Kuns DO Work Phone: [phone]09-09-2025 10:21-0400 Systolic blood rxxtriyf743 mm[Hg]Erich Kuns DO Work Phone: [facility]06-04-2025 14:40-0400 Body .72 cmMartins Ferry Hospital06-04-2025 14:40-0400Body mass index (BMI) [Ratio]28.9 kg/c9YpulixfyeMartins Ferry Hospital06-04-2025 14:40-0400Body qibphz63.4 kgMartins Ferry Hospital06-04-2025 14:40-0400Diastolic blood mm[Hg][facility] 09-12-2024 14:40-0400Heart rate86 /minMartins Ferry Hospital 09-12-2024 14:40-0400Respiratory rate16 /[facility] 09-12-2024 14:40-9445AlB3% (BldA) [Mass fraction]93 %[facility]06-04-2025 14:40-0400Systolic blood qgwycvqm640 mm[Hg][facility]06-03-2025 09:49-0400Body euwhep392.7 Ruchi Wagoner MD Work Phone: [facility]06-03-2025 09:49-0400Body mass index (BMI) [Ratio]28.89 kg/u7ExdqzlwSteve Wagoner MD Work Phone: [facility]06-03-2025 09:49-0400Body cfbgur49.18 kgSteve Wagoner MD Work Phone: [facility]06-03-2025 09:49-0400Diastolic blood pekmicwr31 mm[Hg]Steve Wagoner MD Work Phone: [facility]06-03-2025 09:49-0400Heart rate79 /min Steve Wagoner MD Work Phone: [facility]06-03-2025 09:49-3939XjZ9% (BldA) [Mass fraction]92 %Steve Wagoner MD Work Phone: [facility]06-03-2025 09:49-0400Systolic blood pddukiqd089 mm[Hg]Steve Wagoner MD Work Phone: [facility]2025 14:49-0400Body mass index (BMI) [Ratio]29.5 kg/o8ZnloseLorraine Oneill MD Work Phone: [facility]2025 14:49-0400Body ndxgit88 kg Lorraine Oneill MD Work Phone: [facility]2025 14:49-0400Diastolic blood wajkkhhr23 mm[Hg]Lorraine Oneill MD Work Phone: [facility]2025 14:49-0400Heart rate80 /min Lorraine Oneill MD Work Phone: [facility]2025 14:49-0400Systolic blood ctdbtavi324 mm[Hg]Lorraine Oneill MD Work Phone: [facility]2025 09:59-0400Blood Pressure LocationRyan LIVE [facility]2025 09:59-0400Diastolic blood utpvdngt53 mm[Hg]Ryan LIVE [facility]2025 09:59-0400Heart rate76 /minRyan LIVE [facility]2025 09:59-0400Respiratory rate18 /minRyan LIVE [facility]2025 09:59-0400Systolic blood krqfjhny683 mm[Hg]Ryan LIVE [facility]03-17-2025 14:19-0400Body mass index (BMI) [Ratio]28.39 kg/m2Karl Cook APRN.MATERIAL FLOW ENGINEER Work Phone: [facility]03-17-2025 14:19-0400Body .7 kgKarl Cook APRN.MATERIAL FLOW ENGINEER Work Phone: [facility]03-17-2025 14:19-0400Diastolic blood mm[Hg]Karl Cook APRN.MATERIAL FLOW ENGINEER Work Phone: [facility]03-17-2025 14:19-0400Heart rate73 /min Karl Cook APRN.MATERIAL FLOW ENGINEER Work Phone: [facility]03-17-2025 14:19-0400Systolic blood urrebwos486 mm[Hg]Karl Cook APRN.CNP Work Phone: [facility]02-12-2025 12:57-0500Body aftnlw053.72 cmMartins Ferry Hospital02-12-2025 12:57-0500Body mass index (BMI) [Ratio]28.4 kg/m1NmncciqqcMartins Ferry Hospital02-12-2025 12:57-0500Body aadpno07.82 kgMartins Ferry Hospital02-12-2025 12:57-0500Diastolic blood sedxluok04 mm[Hg][facility]02-12-2025 12:57-0500 Heart rate75 /[facility]02-12-2025 12:57-0500 Respiratory rate16 /[facility]02-12-2025 12:57-0500 SaO2% (BldA) [Mass fraction]94 %[facility]02-12-2025 12:57-0500Systolic blood mm[Hg][facility] 03-20-2024 13:50-0500Body .7 Jose Luis Rubio MD Work Phone: [facility]12-10-2024 13:50-0500Body mass index (BMI) [Ratio]27.37 kg/m2Andres Rubio MD Work Phone: [facility]12-10-2024 13:50-0500Body vmzusy12.65 kgAndres Rubio MD Work Phone: [facility]12-10-2024 13:50-0500Diastolic blood nuocpmet38 mm[Hg]Andres Rubio MD Work Phone: [facility]12-10-2024 13:50-0500Heart rate75 /min Andres Rubio MD Work Phone: [facility]12-10-2024 13:50-8235SvU4% (BldA) [Mass fraction]97 %Andres Rubio MD Work Phone: [facility]12-10-2024 13:50-0500Systolic blood ufvwvtvq048 mm[Hg]Andres Rubio MD Work Phone: [facility]11-13-2024 13:31-0500Body leacgm935.72 cmMartins Ferry Hospital11-13-2024 13:31-0500Body mass index (BMI) [Ratio]27.6 kg/b8CykmbhqlpMartins Ferry Hospital11-13-2024 13:31-0500Body bwnuqz21.55 kgMartins Ferry Hospital11-13-2024 13:31-0500Diastolic blood muoxbbcb25 mm[Hg][facility]11-13-2024 13:31-0500 Heart rate87 /[facility]11-13-2024 13:31-0500 Respiratory rate18 /[facility]11-13-2024 13:31-0500 SaO2% (BldA) [Mass fraction]96 %[facility]11-13-2024 13:31-0500Systolic blood oqnhwqdn076 mm[Hg][facility] 02-16-2024 10:00-0500Diastolic blood mm[Hg]Karl Lion PT Work Phone: [facility]11-07-2024 10:00-0500Heart rate80 /min Karl Lion PT Work Phone: [facility]11-07-2024 10:00-0500Systolic blood ouktgflk509 mm[Hg]Karl Lion PT Work Phone: [address] [place], [place] 3303310-31-2024 15:00-0400Diastolic blood igjahgcj37 mm[Hg]Karl Lion PT Work Phone: [address] [place], [place] 3303310-31-2024 15:00-0400Heart rate63 /min Karl Lion PT Work Phone: [facility]10-31-2024 15:00-0400Systolic blood sczseoar452 mm[Hg]Karl Lion PT Work Phone: [phone] [place], [place] 5085810-28-2024 08:35-0400Blood Pressure LocationRyan General Specific [facility] 859520-28-2024 08:35-0400Diastolic blood qdonmohx66 mm[Hg]Ryan General Specific [facility] 859520-28-2024 08:35-0400Heart rate78 /minRyan General Specific [facility] 859520-28-2024 08:35-0400Respiratory rate16 /minRyan General Specific [facility] 859520-28-2024 08:35-0400Systolic blood cvmqugzc633 mm[Hg]Ryan General Specific [facility] 859520-24-2024 12:00-0400Diastolic blood jmjgodfs08 mm[Hg]Karl Albason PT Work Phone: [phone] [place], [place] 6893710-24-2024 12:00-0400Heart rate83 /min Karl Albason PT Work Phone: [phone])[facility] [place], [place] 5085810-24-2024 12:00-0400Systolic blood tzocrnpt564 mm[Hg]Karl Albason PT Work Phone: [phone])[facility] [place], [place] 5085810-17-2024 14:00-0400Diastolic blood mm[Hg]Karl Albason PT Work Phone: [phone])[facility] [place], [place] 5085810-17-2024 14:00-0400Heart rate75 /min Karl Albason PT Work Phone: [phone])[facility] [place], [place] 5085810-17-2024 14:00-2627GqZ5% (BldA) [Mass fraction]98 %Karl AveryLion PT Work Phone: [phone])[facility] [place], [place] 5085810-17-2024 14:00-0400Systolic blood lkomtkbu649 mm[Hg]Karl Albason PT Work Phone: [facility]10-10-2024 15:06-0400Body mass index (BMI) [Ratio]27.99 kg/p8UdrxsfLorraine Oneill MD Work Phone: [facility]10-10-2024 15:06-0400Body cgcbqo25.5 kgLorraine Oneill MD Work Phone: [facility]10-10-2024 15:06-0400Diastolic blood esaatlqf45 mm[Hg]Lorraine Oneill MD Work Phone: [facility]10-10-2024 15:06-0400Heart rate73 /min Lorraine Oneill MD Work Phone: [facility]10-10-2024 15:06-0400Respiratory rate 16 /minLorraine Oneill MD Work Phone: [facility]10-10-2024 15:06-0400Systolic blood qtazjjdb317 mm[Hg]Lorraine Oneill MD Work Phone: [facility]10-08-2024 11:00-0400Diastolic blood lkzvfeio91 mm[Hg]Karl Albason PT Work Phone: [facility]10-08-2024 11:00-0400Heart rate61 /min Karl Lion PT Work Phone: [address] [place], [place] 3303310-08-2024 11:00-1780BbG7% (BldA) [Mass fraction]100 %Karl Lion PT Work Phone: [facility]10-08-2024 11:00-0400Systolic blood obvjrubj065 mm[Hg]Karl AveryLion PT Work Phone: [facility]10-07-2024 09:10-0400Body tvvqyn078.7 Ruchi Wagoner MD Work Phone: [facility]10-07-2024 09:10-0400Body mass index (BMI) [Ratio]27.86 kg/x8Bxckuya Rizwana MD Work Phone: [facility]10-07-2024 09:10-0400Body ndpazx09.1 kgSteve Wagoner MD Work Phone: [facility]10-07-2024 09:10-0400Diastolic blood lotmmhvu31 mm[Hg]Steve Wagoner MD Work Phone: [facility]10-07-2024 09:10-0400Heart rate77 /min Steve Wagoner MD Work Phone: [facility]10-07-2024 09:10-0400Respiratory rate 12 /minSteve Wagoner MD Work Phone: [facility]10-07-2024 09:10-2410CgJ2% (BldA) [Mass fraction]96 %Steve Wagoner MD Work Phone: [phone] Medical CenterComment on above:room upi29-15-7754 09:10-0400Systolic blood vtujpwsp894 mm[Hg]Steve Wagoner MD Work Phone: [facility]09-26-2024 14:17-0400Body .7 cmLtamar Frod MD Work Phone: [facility]09-26-2024 14:17-0400Body mass index (BMI) [Ratio]26.76 kg/r2UqbbxszHeather Ford MD Work Phone: [facility]09-26-2024 14:17-0400Body pxdtas33.83 Concepción Ford MD Work Phone: [phone]09-05-2024 12:14-0400Body .7 cmnAdrea Lees MD Work Phone: [facility]09-05-2024 12:14-0400Body mass index (BMI) [Ratio]27.22 kg/f8FpgonknAndrea Lees MD Work Phone: [phone]09-05-2024 12:14-0400Body gaxfhn45.19 Maria Isabel Lees MD Work Phone: [phone]09-05-2024 11:38-0400Body oymoxf046.7 cmEkristen Garza MULTIMEDIA SPECIALIST.MATERIAL FLOW ENGINEER Work Phone: [facility]09-05-2024 11:38-0400Body mass index (BMI) [Ratio]27.76 kg/a2HeoyzSheryl Garza MULTIMEDIA SPECIALIST.MATERIAL FLOW ENGINEER Work Phone: [place] [address]-05-2024 11:38-0400Body .8 kgSheryl Garza MULTIMEDIA SPECIALIST.MATERIAL FLOW ENGINEER Work Phone: [place] [address]-05-2024 11:38-0400Diastolic blood fsosxoim18 mm[Hg]Sheryl Garza MULTIMEDIA SPECIALIST.MATERIAL FLOW ENGINEER Work Phone: [facility]09-05-2024 11:38-0400Heart rate84 /min Sheryl Garza MULTIMEDIA SPECIALIST.MATERIAL FLOW ENGINEER Work Phone: [facility]09-05-2024 11:38-6901AoM9% (BldA) [Mass fraction]93 %Sheryl Garza MULTIMEDIA SPECIALIST.MATERIAL FLOW ENGINEER Work Phone: [facility]09-05-2024 11:38-0400Systolic blood stvgockn989 mm[Hg]Sheryl Garza MULTIMEDIA SPECIALIST.MATERIAL FLOW ENGINEER Work Phone: [phone]08-20-2024 13:00-0400Diastolic blood tjyzqhjb90 mm[Hg]Rachele Santo PT Work Phone: [facility]08-20-2024 13:00-0400Systolic blood bmpyfecm77 mm[Hg]Rachele Santo PT Work Phone: [facility]08-20-2024 10:45-0400Body wwzalv830.7 Ruchi Wagoner MD Work Phone: [phone]08-20-2024 10:45-0400Diastolic blood qvlcuenu32 mm[Hg]Steve Wagoner MD Work Phone: [facility]08-20-2024 10:45-0400Heart rate80 /min Steve Wagoner MD Work Phone: [facility]08-20-2024 10:45-0400Respiratory rate 18 /minSteve Wagoner MD Work Phone: [facility]08-20-2024 10:45-1910MzR0% (BldA) [Mass fraction]94 %Steve Wagoner MD Work Phone: [facility]08-20-2024 10:45-0400Systolic blood ohmetolr394 mm[Hg]Steve Wagoner MD Work Phone: [facility]08-13-2024 12:49-0400Body .72 cmDO Erich [employer] Work Phone: [facility]08-13-2024 12:49-0400 Body mass index (BMI) [Ratio]27.5 kg/m2DO Erich [employer] Work Phone: [facility]08-13-2024 12:49-0400 Body qftsxu45.1 kgDO Erich [employer] Work Phone: [facility]08-13-2024 12:49-0400 Diastolic blood kkmvkhiu08 mm[Hg]DO Erich [employer] Work Phone: [facility]08-13-2024 12:49-0400 Heart rate96 /minDO Erich [employer] Work Phone: [facility]08-13-2024 12:49-0400 Respiratory rate18 /minDO Erich Kuns Work Phone: [facility]08-13-2024 12:49-0400 Systolic blood otiutnho095 mm[Hg]DO Erich [employer] Work Phone: [facility]07-27-2024 11:12-0400 Body mass index (BMI) [Ratio]26.61 kg/m2Mri (Istat/3t) Work Phone: [facility]07-27-2024 11:12-0400Body czjcfu36.38 kgMri (Istat/3t) Work Phone: [facility]07-17-2024 16:04-0400Body mass index (BMI) [Ratio]27.29 kg/m2Karl Peraltaleo MULTIMEDIA SPECIALIST.MATERIAL FLOW ENGINEER Work Phone: [facility]07-17-2024 16:04-0400Body rtykbr72.4 kgKarl Cook MULTIMEDIA SPECIALIST.MATERIAL FLOW ENGINEER Work Phone: [facility]07-17-2024 16:04-0400Diastolic blood dedlbnfh55 mm[Hg]Karl Cook MULTIMEDIA SPECIALIST.MATERIAL FLOW ENGINEER Work Phone: [facility]07-17-2024 16:04-0400Heart rate73 /min Karl Cook MULTIMEDIA SPECIALIST.MATERIAL FLOW ENGINEER Work Phone: [facility]07-17-2024 16:04-0400Respiratory rate 16 /minKarl Cook MULTIMEDIA SPECIALIST.MATERIAL FLOW ENGINEER Work Phone: [facility]07-17-2024 16:04-0400Systolic blood fkvzanlr856 mm[Hg]Karl Cook MULTIMEDIA SPECIALIST.MATERIAL FLOW ENGINEER Work Phone: [facility]07-12-2024 12:39-0400Diastolic blood qwmayxxm89 mm[Hg]Kristie Saavedra [facility]07-12-2024 12:39-0400Heart rate82 /minAmanda Saavedra [facility]07-12-2024 12:39-0400Mean blood cruliacu52 mm[Hg]Kristie Saavedra [facility]07-12-2024 12:39-0400 Respiratory rate14 /minAmanda Saavedra [facility]07-12-2024 12:39-0400 Systolic blood hkhtcijg13 mm[Hg]Kristie Saavedra [facility]06-10-2024 13:36-0400Heart rate73 /minBradfandi Cruz [facility]06-10-2024 13:36-2939GdR5% (BldA) [Mass fraction]96 %Anirudh Arroyo [facility]06-10-2024 13:36-0400 Respiratory rate16 /minBradford Cruz [facility]06-10-2024 13:35-0400 Diastolic blood ofhspgny41 mm[Hg]Anirudh Arroyo [facility]06-10-2024 13:35-0400Mean blood xosktytx39 mm[Hg]Anirudh Arroyo [facility]06-10-2024 13:35-0400 Systolic blood taiihgtx102 mm[Hg]Anirudh Arroyo [facility]06-10-2024 13:31-0400 Diastolic blood izbjgwlq82 mm[Hg]Anirudh Arroyo [facility]06-10-2024 13:31-0400Heart rate70 /minBradford Cruz [facility]06-10-2024 13:31-0400 Respiratory rate14 /minBradfandi Arroyo [facility]06-10-2024 13:31-7983LtU5% (BldA) [Mass fraction]96 %Anirudh Arroyo [facility]06-10-2024 13:31-0400 Systolic blood kuwpmudt647 mm[Hg]Anirudh Arroyo [facility]06-10-2024 12:46-0400Heart rate73 /minBradfandi Arroyo [facility]06-10-2024 12:46-5852CeV1% (BldA) [Mass fraction]95 %Anirudh Arroyo [facility]06-10-2024 12:46-0400 Respiratory rate13 /minBraevelinandi Arroyo [facility]06-10-2024 12:45-0400Body dshicocwauc00.7 [degF]Anirudh Arroyo [facility]06-10-2024 12:45-0400 Diastolic blood mm[Hg]Anirudh Arroyo [facility]06-10-2024 12:45-0400Mean blood cpgxckfy92 mm[Hg]Anirudh Arroyo [facility]06-10-2024 12:45-0400 Systolic blood wckupclu644 mm[Hg]Anirudh Arroyo [facility]06-04-2024 11:25-0400 Diastolic blood akyzgxov56 mm[Hg]Andres Rubio MD Work Phone: [facility]06-04-2024 11:25-0400Heart rate86 /min Andres Rubio MD Work Phone: [facility]06-04-2024 11:25-9059MzF8% (BldA) [Mass fraction]94 %Andres Rubio MD Work Phone: [facility]06-04-2024 11:25-0400Systolic blood zbirddpt792 mm[Hg]Andres Rubio MD Work Phone: [facility]05-22-2024 14:10-0400Body ykoffz179.72 cmDO Erich Gillis Work Phone: [facility]05-22-2024 14:10-0400 Body mass index (BMI) [Ratio]27.3 kg/m2DO Erich Gillis Work Phone: [facility]05-22-2024 14:10-0400 Body xneofp69.64 kgDO Erich Gillis Work Phone: [facility]05-22-2024 14:10-0400 Diastolic blood tidlpyzo16 mm[Hg]DO Erich Kuns Work Phone: [facility]05-22-2024 14:10-0400 Heart rate90 /minDO Erich Gillis Work Phone: [facility]05-22-2024 14:10-0400 Respiratory rate18 /minDO Erich Gillis Work Phone: [facility]05-22-2024 14:10-0400 SaO2% (BldA) [Mass fraction]94 %DO Erich Gillis Work Phone: [facility]05-22-2024 14:10-0400 Systolic blood vyblhvks584 mm[Hg]DO Erich Gillis Work Phone: [facility]05-07-2024 09:42-0400 Diastolic blood wbegdkmk16 mm[Hg]Anirudh Arroyo [facility]05-07-2024 09:42-0400Heart rate86 /minBradfandi Cruz [facility]05-07-2024 09:42-0400Mean blood gscsdkzi81 mm[Hg]Anirudh Arroyo [facility]05-07-2024 09:42-0400 Respiratory rate15 /minBradfandi Arroyo [facility]05-07-2024 09:42-0400 Systolic blood djirzunx428 mm[Hg]Anirudh Arroyo [facility]04-24-2024 12:07-0400Body .7 cmDa King MD Work Phone: [facility]04-24-2024 12:07-0400Body mass index (BMI) [Ratio]26.46 kg/i9WljosDa King MD Work Phone: [place] [address]-24-2024 12:07-0400Body zvaaij61.93 kgDa King MD Work Phone: [place] [address]-24-2024 12:07-0400Diastolic blood xnxbvuzy49 mm[Hg]Da King MD Work Phone: [phone] [address]-24-2024 12:07-0400Heart rate74 /min Da King MD Work Phone: [phone] [address]-24-2024 12:07-0400Respiratory rate 12 /minDa King MD Work Phone: [place] [address]-24-2024 12:07-3407UvA6% (BldA) [Mass fraction]98 %Da King MD Work Phone: [place] [address]-24-2024 12:07-0400Systolic blood umktuhbs823 mm[Hg]Da King MD Work Phone: [place] [address]-16-2024 15:33-0400Body .7 cmEmily Kayla MULTIMEDIA SPECIALIST.MATERIAL FLOW ENGINEER Work Phone: [phone] [address]-16-2024 15:33-0400Body qmjqin97.01 kgSheryl Garza MULTIMEDIA SPECIALIST.MATERIAL FLOW ENGINEER Work Phone: [phone] [address]-16-2024 15:33-0400Diastolic blood yzwxzuha87 mm[Hg]Sheryl Garza MULTIMEDIA SPECIALIST.MATERIAL FLOW ENGINEER Work Phone: [phone]16-2024 15:33-0400Heart rate88 /min Sheryl Garza APRN.MATERIAL FLOW ENGINEER Work Phone: [phone] [address]-16-2024 15:33-9952VrY7% (BldA) [Mass fraction]94 %Sheryl Garza MULTIMEDIA SPECIALIST.MATERIAL FLOW ENGINEER Work Phone: [phone] [address]-16-2024 15:33-0400Systolic blood inzxxsvf533 mm[Hg]Sheryl Garza HAN Work Phone: [facility]04-16-2024 08:57-0400Body temperature 98.6 [degF]Ryan LIVE [facility]04-16-2024 08:57-0400Diastolic blood hcanbwso37 mm[Hg]Ryan LIVE [facility] [place] [address]-16-2024 08:57-0400Heart rate70 /minRyan LIVE [facility] [place] [address]-16-2024 08:57-0400Respiratory rate16 /minRyan LIVE [facility] [place] [address]-16-2024 08:57-0400Systolic blood uoqlszzi091 mm[Hg]Ryan LIVE [facility]04-09-2024 11:21-0400Body ztorwr492.72 cmDO Erich Gillis Work Phone: [facility]04-09-2024 11:21-0400 Body mass index (BMI) [Ratio]27.3 kg/m2DO Erich Gillis Work Phone: [facility]04-09-2024 11:21-0400 Body ufrbrofuhqy93.1 [degF]DO Erich Gillis Work Phone: [facility]04-09-2024 11:21-0400 Body hslbib35.64 kgDO Erich Gillis Work Phone: [facility]04-09-2024 11:21-0400 Diastolic blood egxjueex73 mm[Hg]DO Erich Gillis Work Phone: [facility]04-09-2024 11:21-0400 Heart rate85 /minDO Erich Gillis Work Phone: [facility]04-09-2024 11:21-0400 SaO2% (BldA) [Mass fraction]96 %DO Erich Gillis Work Phone: [facility]04-09-2024 11:21-0400 Systolic blood ellavvos329 mm[Hg]DO Erich Gillis Work Phone: [facility]03-15-2024 10:34-0400 Diastolic blood awzdgcto15 mm[Hg]Kristie Saavedra [facility]03-15-2024 10:34-0400Heart rate90 /minAmanda Saavedra [facility]03-15-2024 10:34-0400Mean blood uhmjbnhq76 mm[Hg]Kristie Saavedra [facility]03-15-2024 10:34-0400 Respiratory rate18 /minAmanda Saavedra [facility]03-15-2024 10:34-0400 Systolic blood rtbyojrw415 mm[Hg]Kristie Saavedra [facility]03-14-2024 14:32-0400Body qnhgma07.5 kgLorraine Oneill MD Work Phone: [facility]03-14-2024 14:32-0400Diastolic blood tsbyhbki47 mm[Hg]Lorraine Oneill MD Work Phone: [facility]03-14-2024 14:32-0400Heart rate80 /min Lorraine Oneill MD Work Phone: [facility]03-14-2024 14:32-0400Systolic blood eksqeinx634 mm[Hg]Lorraine Oneill MD Work Phone: [facility]03-08-2024 15:21-0500Body yysizx330.72 cmDO Erich Kuns Work Phone: [facility]03-08-2024 15:21-0500 Body vhaueoxiozk46.5 [degF]DO Erich Kuns Work Phone: [facility]03-08-2024 15:21-0500 Body qujfaw12.64 kgDO Erich Kuns Work Phone: [facility]03-08-2024 15:21-0500 Diastolic blood bysnvyez17 mm[Hg]DO Erich Kuns Work Phone: [facility]03-08-2024 15:21-0500 Heart rate82 /minDO Erich Kuns Work Phone: [facility]03-08-2024 15:21-0500 Respiratory rate24 /minDO Erich Kuns Work Phone: [facility]03-08-2024 15:21-0500 SaO2% (BldA) [Mass fraction]97 %DO Erich Kuns Work Phone: [facility]03-08-2024 15:21-0500 Systolic blood drnjtuhw517 mm[Hg]DO Erich Kuns Work Phone: [facility]03-04-2024 10:34-0500 Body .7 cmAndrea Lees MD Work Phone: [facility]03-04-2024 10:34-0500Body wdnizq91.65 kgAndrea Lees MD Work Phone: [facility]02-28-2024 11:22-0500Diastolic blood arcvteqb43 mm[Hg]Anirudh Arroyo [facility]02-28-2024 11:22-0500Heart rate70 /minAnirudh Arroyo [facility]02-28-2024 11:22-0500 Respiratory rate16 /minBragiana Arroyo [facility]02-28-2024 11:22-7764GqR8% (BldA) [Mass fraction]95 %Anirudh Arroyo [facility]02-28-2024 11:22-0500 Systolic blood irmjovsg897 mm[Hg]Oleary Cruz [facility]02-28-2024 10:55-0500 Diastolic blood trxkomis19 mm[Hg]Anirudh Arroyo [facility]02-28-2024 10:55-0500Heart rate71 /minBradfandi Cruz [facility]02-28-2024 10:55-0500 Respiratory rate16 /minBradford Cruz [facility]02-28-2024 10:55-1642FcJ4% (BldA) [Mass fraction]97 %Anirudh Arroyo [facility]02-28-2024 10:55-0500 Systolic blood dfqyambt02 mm[Hg]Anirudh Arroyo [facility]02-28-2024 10:45-0500 Diastolic blood fqfthhub93 mm[Hg]Anirudh Arroyo [facility]02-28-2024 10:45-0500Heart rate81 /minBradfandi Arroyo [facility]02-28-2024 10:45-8278BpI1% (BldA) [Mass fraction]95 %Anirudh Arroyo [facility]02-28-2024 10:45-0500 Systolic blood cvrhpfyd634 mm[Hg]Anirudh Arroyo [facility]02-28-2024 10:29-0500Mean blood tmbqxtic74 mm[Hg]Anirudh Arroyo [facility]02-28-2024 10:29-0500 Respiratory rate20 /minBraevelinandi Arroyo [facility]02-28-2024 09:42-0500Body ffckaeqqnzg16.7 [degF]Anirudh Arroyo [facility]02-28-2024 09:42-0500Mean blood rwqseksa01 mm[Hg]Anirudh Arroyo [facility]02-27-2024 10:52-0500Body .72 cmDO Erich [employer] Work Phone: [facility]02-27-2024 10:52-0500 Body mass index (BMI) [Ratio]27.5 kg/m2DO Erich [employer] Work Phone: [facility]02-27-2024 10:52-0500 Body .6 [degF]DO Erich Kuns Work Phone: [facility]02-27-2024 10:52-0500 Body .1 kgDO Erich Kuns Work Phone: [facility]02-27-2024 10:52-0500 Diastolic blood nwgcjvjo00 mm[Hg]DO Erich Kuns Work Phone: [facility]02-27-2024 10:52-0500 Heart rate88 /minDO Erich Kuns Work Phone: [facility]02-27-2024 10:52-0500 Respiratory rate16 /minDO Erich Kuns Work Phone: [facility]02-27-2024 10:52-0500 SaO2% (BldA) [Mass fraction]98 %DO Erich Kuns Work Phone: [facility]02-27-2024 10:52-0500 Systolic blood vvulfuqo270 mm[Hg]DO Erich Kuns Work Phone: [facility]02-09-2024 10:17-0500 Diastolic blood taovmsyk08 mm[Hg]Kristie Saavedra [facility]02-09-2024 10:17-0500Heart rate87 /minAmanda Saavedra [facility]02-09-2024 10:17-0500Mean blood ysamxwea32 mm[Hg]Kristie Saavedra [address] [place], [place] [id number] 10:17-0500 Respiratory rate18 /minAmanda Saavedra [address] [place], [place] [id number] 10:17-0500 Systolic blood jregocak208 mm[Hg]Kristie Saavedra [address] [place], [place] [id number] 09:08-0500Heart rate74 /minBradfandi Cruz [address] [place], [place] 7823101-10-2024 09:08-0657PxT7% (BldA) [Mass fraction]96 %Anirudh Arroyo [address] [place], [place] 7823101-10-2024 09:08-0500 Respiratory rate16 /minBradfandi Arroyo [address] [place], [place] 7823101-10-2024 09:08-0500 Diastolic blood gixeqimy48 mm[Hg]Anirudh Arroyo [address] [place], [place] 7823101-10-2024 09:08-0500Mean blood mm[Hg]Anirudh Arroyo [address] [place], [place] 7823101-10-2024 09:08-0500 Systolic blood ezwqnzhq062 mm[Hg]Anirudh Arroyo [address] [place], [place] 7823101-10-2024 08:53-0500 Diastolic blood vkplasxm50 mm[Hg]Anirudh Arroyo [address] [place], [place] 7823101-10-2024 08:53-0500Heart rate70 /minBragiana Cruz [facility]01-10-2024 08:53-0500 Respiratory rate18 /minBragiana Cruz [facility]01-10-2024 08:53-0892PlA5% (BldA) [Mass fraction]96 %Anirudh Arroyo [facility]01-10-2024 08:53-0500 Systolic blood nihhcekq950 mm[Hg]Anirudh Cruz [facility]01-10-2024 08:10-0500gluc 122 mg/dLBfarrukh Cruz [facility]01-10-2024 08:09-0500Heart rate73 /minBragiana Cruz [facility]01-10-2024 08:09-8126KyG0% (BldA) [Mass fraction]96 %Anirudh Arroyo [facility]01-10-2024 08:08-0500Body qgyfyqkaoqp11.7 [degF]Anirudh Arroyo [facility]01-10-2024 08:08-0500 Respiratory rate18 /minBragiana Arroyo [facility]01-10-2024 08:08-0500 Diastolic blood lmwmlpuc60 mm[Hg]Anirudh Arroyo [facility]01-10-2024 08:08-0500Mean blood piondeud47 mm[Hg]Anirudh Arroyo [facility]01-10-2024 08:08-0500 Systolic blood gqxgyntx099 mm[Hg]Anirudh Arroyo [facility]11-29-2023 15:30-0500Body qonxed992.72 cmHon[facility] Centerdrew [facility] Other 11-29-2023 15:30-0500Body mass index (BMI) [Ratio] 27.58 kg/q2Yuarm Kunlisa Other [facility] Other 11-29-2023 15:30-0500Body sllgqi75.28 kgBredrew Gillis Other [facility] Other 11-29-2023 15:30-0500Diastolic blood qrlalugx15 mm[Hg] Erichdrew Gillis Other [facility] Other 11-29-2023 15:30-0500Respiratory rate18 /minBredrew Gillis Other [facility] Other 11-29-2023 15:30-5891DrN2% (BldA) [Mass fraction]96 % Erichdrew Gillis Other [facility] Other 11-29-2023 15:30-0500Systolic blood bhxlecap021 mm[Hg] Erichdrew Gillis [facility] Other 11-27-2023 11:01-0500Diastolic blood jjrcesgn53 mm[Hg] Kristie [employer] [facility]11-27-2023 11:01-0500Heart rate80 /minAmanda [facility] [employer] [facility]11-27-2023 11:01-0500Mean blood dqwlpmpe78 mm[Hg]rKistie [employer] [facility]11-27-2023 11:01-0500 Respiratory rate14 /minAmanda [employer] [facility]11-27-2023 11:01-0500 Systolic blood xbdmbdyn032 mm[Hg]Kristiecrow Saavedra [facility]11-20-2023 10:38-0500Heart rate72 /minJoshkelsey Faisal [facility]11-20-2023 10:38-7584CqO9% (BldA) [Mass fraction]94 %Jamey Faisal [address] [place], [place] 7823111-20-2023 10:37-0500 Diastolic blood ujftxwtx39 mm[Hg]Jamey Faisal [facility]11-20-2023 10:37-0500Mean blood mm[Hg]Jamey Faisal [facility]11-20-2023 10:37-0500 Systolic blood mm[Hg]Jamey Faisal [address] [place], [place] 7823111-20-2023 10:37-0500 Respiratory rate16 /minJoshkelsey Faisal [facility]11-20-2023 10:30-0500 Diastolic blood iqrsiugm22 mm[Hg]Jameykenisha Ramirezner [facility]11-20-2023 10:30-0500Heart rate76 /minJoshua Faisal [facility]11-20-2023 10:30-0500 Respiratory rate16 /minJoshua Faisal [facility]11-20-2023 10:30-9469NxD2% (BldA) [Mass fraction]94 %Jamey Faisal [facility]11-20-2023 10:30-0500 Systolic blood swawphma895 mm[Hg]Jamey Faisal [address] [place], [place] 7823111-20-2023 09:54-0500Heart rate81 /minJamey Faisal [address] [place], [place] 7823111-20-2023 09:54-4289JhP7% (BldA) [Mass fraction]95 %Jamey Malone [address] [place], [place] 9326811-20-2023 09:53-0500Body okhcitcammx25.52 [degF]Jameykenisha Ramirezner [address] [place], [place] [id number] 09:53-0500 Diastolic blood ykjdngjk18 mm[Hg]Jamey Malone [address] [place], [place] [id number] 09:53-0500Mean blood uayxfazv37 mm[Hg]Jameykelsey Ramirezner [address] [place], [place] 9326811-20-2023 09:53-0500 Systolic blood mm[Hg]Jamey Ramirezner [address] [place], [place] 9326811-20-2023 09:52-0500 Respiratory rate14 /minJamey Ramirezner [address] [place], [place] 9326810-23-2023 11:02-0400 Diastolic blood mm[Hg]Jamey Ramirezner [address] [place], [place] 9326810-23-2023 11:02-0400Heart rate79 /Zak Ramirezner [address] [place], [place] 9326810-23-2023 11:02-0400Mean blood nyfusdfg21 mm[Hg]Jameykenisha Ramirezner [address]10-23-2023 11:02-0400 Respiratory rate14 /minChristianneshkelsey Faisal [address] [place], [place] 7823110-23-2023 11:02-0400 Systolic blood orgkfkza93 mm[Hg]Jamey Faisal [address] [place], [place] 9326809-21-2023 14:18-0400Body .7 cmSjaida Penaloza MD Work Phone: [facility]09-21-2023 14:18-0400Body qumuop10.38 kgHola Penaloza MD Work Phone: [facility]09-21-2023 14:18-0400Diastolic blood hhzykzvx92 mm[Hg]Hola Penaloza MD Work Phone: [phone]09-21-2023 14:18-0400Heart rate84 /min Hola Penaloza MD Work Phone: [phone]09-21-2023 14:18-5734IjM0% (BldA) [Mass fraction]98 %Hola Penaloza MD Work Phone: [facility]09-21-2023 14:18-0400Systolic blood stvuczvn537 mm[Hg]Hola Penaloza MD Work Phone: [facility]08-30-2023 13:30-0400Body .72 cmErich Gillis Other [employer] Other 08-30-2023 13:30-0400Body mass index (BMI) [Ratio]26 kg/h5JrxwaErich Gillis Other [employer] Other 08-30-2023 13:30-0400Body .57 kgErich Gillis Other [employer] Other 08-30-2023 13:30-0400Diastolic blood vbfikcaq53 mm[Hg] Erich Gillis Other [employer] Other 08-30-2023 13:30-0400Respiratory rate16 /minErich Gillis Other [employer] Other 08-30-2023 13:30-5164QyU6% (BldA) [Mass fraction]94 % Erich Arsenios Other [facility] [employer] Other 08-30-2023 13:30-0400Systolic blood jnzetwbw858 mm[Hg] Erich Kuns Other [facility] [employer] Other 08-29-2023 08:17-0400Diastolic blood rwpugkch44 mm[Hg] Jamey Malone [facility]08-29-2023 08:17-0400Heart rate64 /Zak Malone [facility]08-29-2023 08:17-0400Mean blood mm[Hg]Jamey Malone [facility]08-29-2023 08:17-0400 Respiratory rate16 /Zak Malone [facility]08-29-2023 08:17-0400 Systolic blood mjbmoplp146 mm[Hg]Jamey Malone [facility]08-07-2023 12:45-0400 Diastolic blood mm[Hg]DO Erich Kuns Work Phone: [facility]08-07-2023 12:45-0400 Heart rate64 /minDO Erich Kuns Work Phone: [facility]08-07-2023 12:45-0400 Respiratory rate16 /minDO Erich Kuns Work Phone: [facility]08-07-2023 12:45-0400 SaO2% (BldA) [Mass fraction]94 %DO Erich Kuns Work Phone: [facility]08-07-2023 12:45-0400 Systolic blood oorqkhbu498 mm[Hg]DO Erich Gillis Work Phone: [facility]08-07-2023 08:05-0400 Body utyknw630.72 cmDO Erich Gillis Work Phone: [facility]08-07-2023 08:05-0400 Body mass index (BMI) [Ratio]25.1 kg/m2DO Erich Gillis Work Phone: [facility]08-07-2023 08:05-0400 Body imdpnh20 kgDO Erichdrew Gillis Work Phone: [facility]08-07-2023 07:03-0400 Body pbwytmixggv86.6 [degF]DO Erich Gillis Work Phone: [facility]07-31-2023 08:25-0400 Heart rate68 /minJamey Faisal [facility]07-31-2023 08:25-9474MpD1% (BldA) [Mass fraction]93 %Jamey Faisal [facility]07-31-2023 08:25-0400 Diastolic blood mm[Hg]Jamey Faisal [facility]07-31-2023 08:25-0400Mean blood wriphjol12 mm[Hg]Jamey Faisal [facility]07-31-2023 08:25-0400 Systolic blood rbydphuo139 mm[Hg]Jamey Faisal [facility]07-31-2023 08:25-0400 Respiratory rate14 /minJoshua Faisal [facility]07-31-2023 08:21-0400 Diastolic blood qiyfuemf25 mm[Hg]Jamey Faisal [facility]07-31-2023 08:21-0400Heart rate70 /minChristianneshkelsey Faisal [facility]07-31-2023 08:21-0400 Respiratory rate14 /minJoshua Faisal [facility]07-31-2023 08:21-3625AtJ4% (BldA) [Mass fraction]94 %Jamey Faisal [facility]07-31-2023 08:21-0400 Systolic blood bnshgelx808 mm[Hg]Jamey Faisal [facility]07-31-2023 07:49-0400Heart rate71 /minChristianneshkelsey Faisal [facility]07-31-2023 07:49-4714AxY3% (BldA) [Mass fraction]95 %Jamey Faisal [facility]07-31-2023 07:49-0400 Diastolic blood kewfsych89 mm[Hg]Jamey Faisal [facility]07-31-2023 07:49-0400Mean blood bwiqxefu37 mm[Hg]Jamey Faisal [facility]07-31-2023 07:49-0400 Systolic blood lpkcxsou312 mm[Hg]Jamey Faisal [facility]07-31-2023 07:49-0400Body hdbyvaorlyc08.7 [degF]Jamey Faisal [facility]07-31-2023 07:48-0400 Respiratory rate12 /minJamey Faisal [facility]07-26-2023 10:30-0400Body zaeeon216.72 [facility] Christina Other [employer] Other 07-26-2023 10:30-0400Body mass index (BMI) [Ratio] 24.48 kg/y4Aaiycik Christina [facility] [employer] Other 07-26-2023 10:30-0400Body zxgjiz20.03 kgCollmorena Booth Other [facility] [employer] Other 07-18-2023 10:21-0400Diastolic blood tzlvoafm55 mm[Hg] Jamey Faisal [facility]07-18-2023 10:21-0400Heart rate92 /minChristianneshkelsey Faisal [facility]07-18-2023 10:21-0400Mean blood xvesndap90 mm[Hg]Jamey Faisal [facility]07-18-2023 10:21-0400 Respiratory rate14 /minJamey Faisal [facility]07-18-2023 10:21-0400 Systolic blood uljyceou007 mm[Hg]Jamey Fasial [facility]06-27-2023 10:15-0400Body kzojxx548.72 cmColleen Christina Other [facility] [employer] Other 06-27-2023 10:15-0400Body mass index (BMI) [Ratio] 24.48 kg/p0Yhhrqjvmorena Booth Other [employer] Other 06-27-2023 10:15-0400Body weehzw19.03 kgCollmorena Booth Other [facility] [employer] Other 06-22-2023 10:15-0400Body lixfse945.72 cmBrett Arsenios Other [employer] Other 06-22-2023 10:15-0400Body mass index (BMI) [Ratio] 24.57 kg/z8Slkno Arsenios Other [employer] Other 06-22-2023 10:15-0400Body uwambr03.3 kgBrett Arsenios Other [employer] Other 06-22-2023 10:15-0400Diastolic blood yuomptpj96 mm[Hg] Erich Arsenios Other [employer] Other 06-22-2023 10:15-0400Respiratory rate16 /minBredrew Gillis Other [employer] Other 06-22-2023 10:15-3499KtI3% (BldA) [Mass fraction]95 % Erichdrew Gillis Other [employer] Other 06-22-2023 10:15-0400Systolic blood mm[Hg] Erichdrew Cesars Other [employer] Other 05-31-2023 13:00-0400Body kyvplm910.72 cmBrett Carlin Other [employer] Other 05-31-2023 13:00-0400Body mass index (BMI) [Ratio] 24.48 kg/g2Kjqej Arsenios Other [employer] Other 05-31-2023 13:00-0400Body jqzaeucdxds84.5 [degF]Erichdrew Cesars Other [employer] Other 05-31-2023 13:00-0400Body xysuvx18.03 kgBrett Kuns Other [facility] [employer] Other 05-31-2023 13:00-0400Diastolic blood poczxxau62 mm[Hg] Erich Kuns Other [facility] [employer] Other 05-31-2023 13:00-0400Respiratory rate18 /minBrett Kuns Other [facility] [employer] Other 05-31-2023 13:00-6423MkA6% (BldA) [Mass fraction]96 % Erich Kuns Other [facility] [employer] Other 05-31-2023 13:00-0400Systolic blood clboigcg43 mm[Hg] E[facility]uns [facility] [employer] Other 05-18-2023 20:08-0400Body ujbdoj017.72 cmDO Erich Kuns Work Phone: [facility]05-18-2023 20:08-0400 Body efszpbwitjx32.9 [degF]DO Erich Kuns Work Phone: [facility]05-18-2023 20:08-0400 Body wycyqr86.57 kgDO Erich Kuns Work Phone: [facility]05-18-2023 20:08-0400 Diastolic blood mm[Hg]DO Erich Kuns Work Phone: [facility]05-18-2023 20:08-0400 Heart rate96 /minDO Erich Kuns Work Phone: [facility]05-18-2023 20:08-0400 Respiratory rate20 /minDO Erich Arsenios Work Phone: [facility]05-18-2023 20:08-0400 SaO2% (BldA) [Mass fraction]94 %DO Erich Kuns Work Phone: [facility]05-18-2023 20:08-0400 Systolic blood cyrkjfwh255 mm[Hg]DO Erich Kuns Work Phone: [facility]05-04-2023 11:46-0400 Diastolic blood koeqfgfj47 mm[Hg]Reyes Zumbar [facility]05-04-2023 11:46-0400 Diastolic blood ubebdhco63 mm[Hg]Reyes Zumbar [facility]05-04-2023 11:46-0400Heart rate95 /minZachary Zumbar [facility]05-04-2023 11:46-0400Heart rate91 /minZachary Zumbar [facility]05-04-2023 11:46-0400Mean blood vvbwlhep57 mm[Hg]Reyes Zumbar [facility]05-04-2023 11:46-0400 Respiratory rate14 /minZachary Zumbar [facility]05-04-2023 11:46-0400 Systolic blood xvtkeskd66 mm[Hg]Reyes Zumbar [facility]05-04-2023 11:46-0400 Systolic blood eykgymkd971 mm[Hg]Reyes Zumbar [facility]04-25-2023 13:25-0400Body zotbmd849.7 cmDa King MD Work Phone: [place] [address]-25-2023 13:25-0400Body atbqmd04.58 kgDa King MD Work Phone: [facility]04-25-2023 13:25-0400Diastolic blood rnhingjj63 mm[Hg]Da King MD Work Phone: [facility]04-25-2023 13:25-0400Heart rate80 /min Da King MD Work Phone: [facility]04-25-2023 13:25-0400Respiratory rate 12 /minDa King MD Work Phone: [place] [address]-25-2023 13:25-3426KnP3% (BldA) [Mass fraction]98 %Da King MD Work Phone: [facility]04-25-2023 13:25-0400Systolic blood jpvtmpda174 mm[Hg]Da King MD Work Phone: [facility]02-16-2023 11:45-0500Body uukoxn584.72 cmErich Arseniolisa Other [employer] Other 02-16-2023 11:45-0500Body mass index (BMI) [Ratio] 24.78 kg/e4AhpdrErich Gillis Other [employer] Other 02-16-2023 11:45-0500Body fiotyg55.94 kgErich Gillis Other [employer] Other 02-16-2023 11:45-0500Diastolic blood kweqstce04 mm[Hg] Erich Gillis Other [employer] Other 02-16-2023 11:45-0500Respiratory rate18 /minErich Gillis Other [employer] Other 02-16-2023 11:45-0924UeC0% (BldA) [Mass fraction]97 % Erich Gillis Other [employer] [employer] Other 02-16-2023 11:45-0500Systolic blood tfceugwr350 mm[Hg] Erich Gillis Other [facility] [employer] Other 02-13-2023 13:00-0500Body ybceat44.07 kgKarl Cook MULTIMEDIA SPECIALIST.MATERIAL FLOW ENGINEER Work Phone: [employer] [id number] 13:00-0500Diastolic blood yugptpcw39 mm[Hg]Karl Cook MULTIMEDIA SPECIALIST.MATERIAL FLOW ENGINEER Work Phone: [facility] [phone] 13:00-0500Heart rate98 /min Karl Cook MULTIMEDIA SPECIALIST.MATERIAL FLOW ENGINEER Work Phone: [employer] [phone] 13:00-0500Systolic blood ucyzzets681 mm[Hg]Karl Cook MULTIMEDIA SPECIALIST.MATERIAL FLOW ENGINEER Work Phone: [facility]01-30-2023 10:45-0500Body pofggl020.72 cmErich Gillis Other [facility] [employer] Other 01-30-2023 10:45-0500Body mass index (BMI) [Ratio] 24.99 kg/m3PrdykErich Gillis Other [facility] [employer] Other 01-30-2023 10:45-0500Body qgjyvd66.57 kgErich Gillis Other [employer] Other 01-30-2023 10:45-0500Diastolic blood flzwymsb04 mm[Hg] Erich Gillis Other [employer] [employer] Other 01-30-2023 10:45-0500Respiratory rate18 /minBrett Arsenios Other [employer] Other 01-30-2023 10:45-0639MeO7% (BldA) [Mass fraction]95 % Erichdrew Cesars Other [employer] Other 01-30-2023 10:45-0500Systolic blood vglmipta407 mm[Hg] Erich Arsenios Other [employer] Other 01-23-2023 11:30-0500Body umifdo278.72 cmBredrew Gillis Other [employer] Other 01-23-2023 11:30-0500Body mass index (BMI) [Ratio] 24.99 kg/j4Qmqwn Kunlisa Other [employer] Other 01-23-2023 11:30-0500Body .57 kgBredrew Gillis Other [employer] Other 01-23-2023 11:30-0500Diastolic blood abffwkuy30 mm[Hg] Erich Arsenios Other [employer] Other 01-23-2023 11:30-0500Respiratory rate18 /minBrett Kuns Other [employer] Other 01-23-2023 11:30-1400OzF4% (BldA) [Mass fraction]97 % Erichdrew Cesars Other [employer] Other 01-23-2023 11:30-0500Systolic blood lysqiwis241 mm[Hg] Erich Gillis Other [facility] [employer] Other [id number] 09:11-0500Body izrovg753.7 cmDa King MD Work Phone: [facility]11-07-2022 09:11-0500Body .75 kgDa King MD Work Phone: [facility]11-07-2022 09:11-0500Diastolic blood mm[Hg]Da King MD Work Phone: [facility]11-07-2022 09:11-0500Heart rate70 /min Da King MD Work Phone: [facility]11-07-2022 09:11-0500Respiratory rate 12 /minDa King MD Work Phone: [facility]11-07-2022 09:11-8526AkG8% (BldA) [Mass fraction]98 %Da King MD Work Phone: [facility]11-07-2022 09:11-0500Systolic blood pemgkjxs064 mm[Hg]Da King MD Work Phone: [facility]10-27-2022 14:45-0400Body ybfdyg512.72 cmErich Gillis Other [facility] [employer] Other 10-27-2022 14:45-0400Body mass index (BMI) [Ratio] 26.15 kg/z1RmqssErich Gillis Other [facility] [employer] Other 10-27-2022 14:45-0400Body .02 kgErich Gillis Other [facility] [employer] Other 10-27-2022 14:45-0400Diastolic blood jnbkntnu64 mm[Hg] Erich Gillis Other [employer] Other 10-27-2022 14:45-0400Respiratory rate16 /minBrett Kuns Other [employer] Other 10-27-2022 14:45-8653ArQ8% (BldA) [Mass fraction]98 % Erich Kuns Other [employer] Other 10-27-2022 14:45-0400Systolic blood ngsxriyg008 mm[Hg] Erich Kuns Other [employer] Other 10-10-2022 15:53-0400Body oeujdz373.7 cmAndrea Lees MD Work Phone: [facility]10-10-2022 15:53-0400Body klxiar67.84 kgAndrea Lees MD Work Phone: [facility]09-29-2022 14:30-0400Body ttwbda610.72 cmErich Gillis Other [employer] Other 09-29-2022 14:30-0400Body mass index (BMI) [Ratio] 25.63 kg/u2BndazErich Cesars Other [employer] Other 09-29-2022 14:30-0400Body iuwazt78.48 kgBredrew Gillis Other [employer] Other 09-29-2022 14:30-0400Diastolic blood vggeooqd01 mm[Hg] Erich Kuns Other [employer] Other 09-29-2022 14:30-0400Respiratory rate16 /minBrett Kuns Other [employer] Other 09-29-2022 14:30-1423HmE6% (BldA) [Mass fraction]98 % Erich Kuns Other [employer] Other 09-29-2022 14:30-0400Systolic blood sznocyqt302 mm[Hg] Erich Kuns Other [facility] [employer] Other 09-09-2022 14:00-0400Body zrmlan670.72 cmBrett Kuns Other [employer] Other 09-09-2022 14:00-0400Diastolic blood mm[Hg] Erich Kuns Other [employer] Other 09-09-2022 14:00-0400Respiratory rate18 /minBrett Kuns Other [employer] Other 09-09-2022 14:00-8821HrH2% (BldA) [Mass fraction]95 % Erich Kuns [facility] [employer] Other 09-09-2022 14:00-0400Systolic blood lppeoqrs161 mm[Hg] Erich Kuns Other [facility] [employer] Other 08-29-2022 09:33-0400Diastolic blood mm[Hg] Jamey Ramirezner [facility]08-29-2022 09:33-0400 Systolic blood mm[Hg]Jamey Maloen [facility]08-29-2022 09:25-0400 Diastolic blood gndxgkil329 mm[Hg]Jamey Malone [facility]08-29-2022 09:25-0400Heart rate65 /Zak Malone [facility]08-29-2022 09:25-0400Mean blood mm[Hg]Jamey Malone [address] [place], [place] [id number] 09:25-1282FhZ6% (BldA) [Mass fraction]95 %Jamey Malone [facility]08-29-2022 09:25-0400 Systolic blood oiegwnsu819 mm[Hg]Jamey Malone [address] [place], [place] [id number] 09:21-0400 Diastolic blood bzewtckf33 mm[Hg]Jamey Malone [address] [place], [place] [id number] 09:21-0400Heart rate59 /Zak Malone [facility]08-29-2022 09:21-0400 Respiratory rate18 /Zak Malone [facility]08-29-2022 09:21-3647VdW6% (BldA) [Mass fraction]96 %Jamey Malone [facility]08-29-2022 09:21-0400 Systolic blood pmwuqmmh317 mm[Hg]Jamey Malone [address] [place], [place] [id number] 09:03-0400Body wjrtqfiddiu90.88 [degF]Jamey Malone [facility]08-29-2022 09:03-0400Heart rate67 /Zak Malone [address] [place], [place] [address]-29-2022 09:03-0400Mean blood xhqbqetr691 mm[Hg]Jamey Malone [facility]08-29-2022 09:03-0840GbB1% (BldA) [Mass fraction]96 %Jamey Malone [facility]08-19-2022 13:15-0400Body oaotvu729.72 cmErich Gillis Other [facility] [employer] Other 08-19-2022 13:15-0400Body mass index (BMI) [Ratio] 26.15 kg/a4AoeipErich Gillis Other [employer] Other 08-19-2022 13:15-0400Body zbjvhe91.02 kgErich Gillis Other [employer] Other 08-19-2022 13:15-0400Diastolic blood wpeodtrd48 mm[Hg] Erich Gillis Other [employer] Other 08-19-2022 13:15-0400Respiratory rate16 /minErich Gillis Other [facility] [employer] Other 08-19-2022 13:15-1656WxN2% (BldA) [Mass fraction]96 % Erich Gillis Other [employer] Other 08-19-2022 13:15-0400Systolic blood mdskpvdi579 mm[Hg] Erich Gillis Other [employer] Other 08-03-2022 11:06-0400Body wywofv238.7 cmaD King MD Work Phone: [facility]08-03-2022 11:06-0400Body .48 kgDa King MD Work Phone: [facility]08-03-2022 11:06-0400Diastolic blood jmndlabc92 mm[Hg]Da King MD Work Phone: [facility]08-03-2022 11:06-0400Heart rate74 /min Da King MD Work Phone: [facility]08-03-2022 11:06-1760UwE2% (BldA) [Mass fraction]96 %Da King MD Work Phone: [facility]08-03-2022 11:06-0400Systolic blood mm[Hg]Da King MD Work Phone: [facility]07-19-2022 14:00-0400Body yerwac853.72 cmErich Gillis Other [employer] Other 07-19-2022 14:00-0400Body mass index (BMI) [Ratio] 25.69 kg/z6MddqdErich Gillis Other [employer] Other 07-19-2022 14:00-0400Body zdjgqy91.66 kgErich Gillis Other [employer] Other 07-19-2022 14:00-0400Diastolic blood lrheqoqt58 mm[Hg] Erich Gillis Other [employer] Other 07-19-2022 14:00-0400Respiratory rate16 /minErich Gillis Other [employer] Other 07-19-2022 14:00-5552HgW0% (BldA) [Mass fraction]96 % Erich Gillis Other [facility] [employer] Other 07-19-2022 14:00-0400Systolic blood hfxbrray876 mm[Hg] Erich Gillis Other [facility] [employer] Other 07-14-2022 15:23-0400Body .7 Vicky Penaloza MD Work Phone: [phone]07-14-2022 15:23-0400Body lfexjj19.43 kgHola Penaloza MD Work Phone: [phone]07-14-2022 15:23-0400Diastolic blood mm[Hg]Hola Penaloza MD Work Phone: [phone]07-14-2022 15:23-0400Heart rate85 /min Hola Penaloza MD Work Phone: [facility]07-14-2022 15:23-0400Systolic blood vdbsktpi075 mm[Hg]Hola Penaloza MD Work Phone: [facility]07-14-2022 09:36-0400Body .7 cmEkristen Garza MULTIMEDIA SPECIALIST.MATERIAL FLOW ENGINEER Work Phone: [phone]07-14-2022 09:36-0400Body xznaww63.84 kgSheryl Garza MULTIMEDIA SPECIALIST.MATERIAL FLOW ENGINEER Work Phone: [facility]07-14-2022 09:36-0400Diastolic blood ybvfklyo76 mm[Hg]Sheryl Garza MULTIMEDIA SPECIALIST.MATERIAL FLOW ENGINEER Work Phone: [facility]07-14-2022 09:36-0400Heart rate96 /min Sheryl Garza MULTIMEDIA SPECIALIST.MATERIAL FLOW ENGINEER Work Phone: [facility]07-14-2022 09:36-4764IaW2% (BldA) [Mass fraction]95 %Sheryl Garza MULTIMEDIA SPECIALIST.MATERIAL FLOW ENGINEER Work Phone: [place] [address]-14-2022 09:36-0400Systolic blood yghznjwj439 mm[Hg]Sheryl Garza MULTIMEDIA SPECIALIST.MATERIAL FLOW ENGINEER Work Phone: [facility]07-11-2022 10:45-0400Body puhyjp315.72 cmErich Gillis Other [employer] Other 07-11-2022 10:45-0400Body mass index (BMI) [Ratio] 25.39 kg/a9OjqfeErich Gillis Other [employer] Other 07-11-2022 10:45-0400Body pykthjbjliz44.6 [degF]Erich Gillis Other [employer] Other 07-11-2022 10:45-0400Body yaqfiq59.75 kgErich Gillis Other [employer] Other 07-11-2022 10:45-0400Diastolic blood rashxxuz57 mm[Hg] Erich Gillis Other [employer] Other 07-11-2022 10:45-0400Respiratory rate18 /minErich Gillis Other [employer] Other 07-11-2022 10:45-3439NvX3% (BldA) [Mass fraction]98 % Erichdrew Gillis Other [employer] Other 07-11-2022 10:45-0400Systolic blood vyewpqtl670 mm[Hg] Erich Gillis Other [employer] Other 02-28-2022 10:15-0500Body kcalsy165.72 cmBredrew Gillis Other [facility] [employer] Other 02-24-2022 15:15-0500Body .72 cmCtiesha Abel Other [facility] [employer] Other 02-24-2022 15:15-0500Body mass index (BMI) [Ratio] 25.24 kg/r7Hztyojnmabel Abel Other [facility] [employer] Other 02-24-2022 15:15-0500Body xdgpei80.3 kgCammabel Abel Other [facility] [employer] Other 01-19-2022 11:30-0500Body .72 Maurice Booth Other [facility] [employer] Other 01-19-2022 11:30-0500Body mass index (BMI) [Ratio] 25.85 kg/d1Xzxmxsxnat Booth Other [employer] Other 01-19-2022 11:30-0500Body uvmtai56.11 kgConat Booth Other [employer] Other Encounters Encounter DateEncounter TypeCare ProviderFacilityStart: 90-24-2347yxuzmnukcs Ryan LIVEFacility:[place]andsaeidyStart: 02-12-2025 End: 20-27-6101pwzyzlrkzyUtwgunv P COOKFacility:[place]Start: 02-12-2025 End: 06-71-8772Dywshmq encounter procedureRyan LIVE [facility] [place] Start: 01-28-2025 End: 45-01-6004arjnuxudnoSixuu Kuns DO Work Phone: [phone]-CARIJjnkx: 01-28-2025 End: 74-61-4368Nwsfjiu encounter procedureAntony Ellis MD-[facility] Work Phone: Start: 01-18-2025 End: 74-02-2345bexyyuukpzFWUVM ROGER KUNSFacility:[facility] Start: 01-09-2025 End: 93-14-1360jekllgeurdJNVQY ROGER KUNSFacility:[facility] Start: 12-18-2024 End: 72-66-3474pmvxviqlptFgzme Kuns DO Work Phone: [facility] Work Phone: Start: 12-18-2024 End: 31-50-6141Qeuknmg encounter procedureErich Gillis DO-[facility] Work Phone: Start: 61-44-1160Pyt-patient / Non-visitLorraine Oneill- [facility] Work Phone: Start: 11-28-2024 End: 38-05-4134ztonwzirdaYLDUD ROGER KUNSFacility:[facility] Start: 11-13-2024 End: 05-72-0819Ykplzkosc encounterLorraine Oneill MD Work Phone: EndocrinologyComment on above:OrdersStart: 11-09-2024 End: 17-23-1711ykspwetkinEdyupo Hamaty MD Work Phone: EndocrinologyStart: 11-09-2024 End: 63-46-9660Itlgfin encounter procedureLorraine Oneill MD Work Phone: EndocrinologyComment on above:DiabetesStart: 10-26-2024 End: 70-37-4563OxviecFavgg Mazur PA-C Work Phone: NeurologyComment on above:Refill RequestStart: 10-22-2024 End: 61-44-7442keauewszqzOqoclhxppjz Subramaniam MD Work Phone: spine InstituteStart: 10-22-2024 End: 66-79-2004Tmyazuw encounter Jacoby Day MD Work Phone: spine InstituteComment on above:InjectionStart: 10-17-2024 End: 20-09-3495Jwomdzbao encounterDori Padilla PA-C Work Phone: NeurologyStart: 10-11-2024 End: 26-73-6056Jspjvxreq encounterPhillip Danika Cohen DO Work Phone: spine InstituteComment on above:Post Injection QuestionsStart: 10-09-2024 End: 05-08-6917ojjwpifslfABUYL LEONARDO GILLISFacility:[facility] Start: 09-27-2024 End: 41-88-1224Dghpzs consultation new/estab patient 62 Nohelia Day MD Work Phone: Spine InstituteComment on above:Lumbosacral spondylosis with radiculopathy; Scoliosis, unspecified scoliosis type, unspecified spinal region; Spinal stenosis of lumbar region, unspecified whether neurogenic claudication presentStart: 09-27-2024 End: 12-46-7091cfsinyxlefKWDZAFM KHALAFFacility:[facility] Hospitaltart: 09-26-2024 End: 88-01-1207Lajtshxob encounterPhiomar Cohen DO Work Phone: spine InstituteComment on above:Preperations for Procedure CallStart: 09-25-2024 End: 27-76-6689Tqbxjspcw encounterPhillip G Mendis DO Work Phone: spine InstituteComment on above:Preperations for ProcedureStart: 09-21-2024 End: 66-63-2265Lodyus OnlyPhillscar G Mendis DO Work Phone: spine InstituteComment on above:Trochanteric bursitis of right hip (Primary Dx); Lumbosacral spondylosis with radiculopathy; Scoliosis, unspecified scoliosis type, unspecified spinal region; Lumbosacral stenosisStart: 09-18-2024 End: 17-32-1766wrvgzxnvkkTkoaqqj M Khalaf MD Work Phone: spine InstituteComment on above:InjectionStart: 09-12-2024 End: 49-52-7865txkdwpcunqZfoiccnjm [facility] Work Phone: Start: 09-12-2024 End: 59-27-1839Bzllspr encounter procedureAtrium Health University City Physician GroupB[facility] Work Phone: Start: 09-11-2024 End: 95-36-7558pbzmbhkwfbVPYOY ROGER KUNSFacility:[facility] Start: 09-11-2024 End: 58-55-3748Hgdcdgb encounter procedureTamary Wagoner MD Work Phone: spine InstituteComment on above:Trochanteric bursitis of right hip (Primary Dx); Lumbosacral spondylosis with radiculopathy; Scoliosis, unspecified scoliosis type, unspecified spinal region; Lumbosacral stenosisStart: 09-04-2024 End: 30-40-9612yeuqjsjwakYg [facility]cp (Hist)[facility] EnterpriseStart: 09-04-2024 End: 56-66-5717Mqcmger encounter procedureNo Pcp (Hist)[facility] EnterpriseStart: 08-29-2024 End: 48-01-8229vxpdesnobuGUACW P GRIFFINFacility:[facility] Hospitaltart: 08-29-2024 End: 48-37-5048vutbtipgpvBJHGH ROGER KUNSFacility:[facility] Start: 08-27-2024 End: 09-76-9560wkynpjswvtUkjes Mazur PA-C Work Phone: NeurologyComment on above:Orthostatic hypotension (Primary Dx); Small fiber neuropathyStart: 08-27-2024 End: 27-36-1029Loizkfsjbbyj consultation with Jocelyn Padilla PA-C Work Phone: NeurologyStart: 08-21-2024 End: 20-31-2827nsmwuhfdwzDMLCF ROGER KUNSFacility:[facility] Start: 08-21-2024 End: 53-23-0534hwhrezzcrhTrnovlj P COOKFacility:SEAN SinghuskyStart: 08-21-2024 End: 72-36-7136Clnjdsy encounter Kelsy Oneill MD Work Phone: EndocrinologyComment on above:Type 2 diabetes mellitus with stage 3a chronic kidney disease, without long-term current use of insulin (HCC) (Primary Dx); Mixed hyperlipidemia; 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athy (HCC); Constipation, unspecified constipation typeStart: 08-16-2024 End: 31-61-0950Dummbdovz encounterPhillscar Cohen DO Work Phone: spine InstituteComment on above:Follow Up Phone Call (Post Injection/)Start: 08-14-2024 End: 23-70-6718wigmjkjxpsDTZLOGB MENDISFacility:[facility] Hospitaltart: 08-01-2024 End: 91-23-9128Gqsahf-up encounterKarl Cook APRN.CNP Work Phone: EndocrinologyStart: 07-31-2024 End: 31-33-5642Hnjotklki encounterPhiomar Cohen DO Work Phone: spine InstituteComment on above:Preperations for Procedure (Mychart)Start: 07-27-2024 End: 70-08-6152Qxbyhj OnlyPhiomar Garnica Mendpao DO Work Phone: spine InstituteComment on above:Lumbosacral spondylosis with radiculopathy (Primary Dx); Spinal stenosis of lumbar region, unspecified whether neurogenic claudication presentStart: 07-23-2024 End: 60-33-8855avmurgqsduDOENQMadelyn Juradoity:[facility] Start: 07-23-2024 End: 94-11-5634bffmnbelbkZAASL ROGER KUNSFacility:[facility] Start: 99-72-4289Hxb-patient / Non-visitFirhealthsouth medical center [facility] Work Phone: Start: 07-17-2024 End: 38-20-9286pzeklzbnefIwhbzit P COOKFacility:SEAN SanduskyStart: 07-13-2024 End: 12-99-4047Bobttbjgt encounterLorraine Oneill MD Work Phone: EndocrinologyComment on above:Patient Update (US MED) Start: 07-12-2024 End: 03-75-9684Dorquqm encounter procedureLorraine Oneill MD Work Phone: EndocrinologyComment on above:LyricaStart: 07-12-2024 End: 23-77-1559hyoulmrfmxBescfvy M Khalaf MD Work Phone: Spqen InstituteComment on above:Lumbosacral spondylosis with radiculopathy (Primary Dx); Scoliosis, unspecified scoliosis type, unspecified spinal region; Spinal stenosis of lumbar region, unspecified whether neurogenic claudication presentStart: 07-12-2024 End: 10-65-7927Sqyghuuhbesw consultation with patientSteve Wagoner MD Work Phone: Spxaj InstituteStart: 07-10-2024 End: 96-18-5636Lcnnmmvij encounterKarl Cook APRN.CNP Work Phone: EndocrinologyComment on above:Forms (US Med)Start: 06-29-2024 End: 02-31-7930Dkhkzemho encounterPhiomar Cohen DO Work Phone: Spine InstituteComment on above:Post Injection QuestionsStart: 06-26-2024 End: 42-41-6613Iafphkbow encounterKarl Cook APRN.MATERIAL FLOW ENGINEER Work Phone: EndocrinologyComment on above:Insurance Authorization (Approval - tirzepatide (MOUNJARO) 7.5 mg/0.5 mL pen injector)Start: 06-26-2024 End: 14-99-1139pwlynxazzkDLKXJ ROGER KUNSFacility:[facility] Start: 06-25-2024 End: 19-21-6441qxwpqrfdtbKWZRV ROGER KUNSFacility:[facility] Start: 06-25-2024 End: 01-48-9922Iuvhukh encounter Janessa Cook APRN.CNP Work Phone: EndocrinologyComment on above:Type 2 diabetes mellitus with stage 3a chronic kidney disease, without long-term current use of insulin (HCC) (Primary Dx); 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athy (HCC); Mixed hyperlipidemiaStart: 06-19-2024 End: 56-87-1639Tthzfeotg encounterEmwaqas Morrow RD Work Phone: EndocrinologyComment on above:Patient Question (Pt calling for initial appt for spouse - pt reports significant unintentional weig ht loss. )Start: 06-14-2024 End: 39-66-2860OyqejhUrqzk Griffin MD Work Phone: CardiologyComment on above:Refill RequestStart: 06-13-2024 End: 95-39-9570Lijvazubt encounterPhiomar Garnica Mendis DO Work Phone: Spmih InstituteComment on above:Preperations for Procedure CallStart: 06-12-2024 End: 25-22-5812Pyzuwdz encounter Charlene Gillis DO Work Phone: [facility] CtrStart: 06-12-2024 End: 97-13-3275zrxjtduezyLckds KunsFacility:[facility] Start: 06-06-2024 End: 75-64-3767Gvywxyeeu encounterPhillip G Mendis DO Work Phone: Spcxt InstituteComment on above:Preperations for Procedure (Mychart)Start: 06-05-2024 End: 89-84-9453Mkzftccgu encounterPhillip G Mendis DO Work Phone: NeurologyComment on above:AppointmentStart: 05-30-2024 End: 00-49-8394llkbcmcmyfXlpqaofmuUniversity Hospitals [facility] Work Phone: Start: 05-30-2024 End: 55-58-3101Gjwlnle encounter procedureAtrium Health [facility] Physician GroupB[facility] Work Phone: Start: 05-23-2024 End: 08-19-9838Buygrttba encounterPhillip G Mendis DO Work Phone: spine InstituteComment on above:Preperations for Procedure CallStart: 05-23-2024 End: 95-11-0540fnwimxbbejBsoifsgrcAdena Regional Medical Center Work Phone: Start: 05-23-2024 End: 92-95-4112Nltqstx encounter procedureAtrium Health [facility] Physician [facility] Work Phone: Start: 05-21-2024 End: 64-94-0868Rcopypway encounterPhillip G Mendis DO Work Phone: spine InstituteComment on above:Preperations for Procedure (Mychart)Start: 05-21-2024 End: 58-39-9327ckajebetkqOxlnvnk Candace Downs MDFacility:PM Jazmín Start: 05-17-2024 End: 51-56-5891Mnplil OnlyPhillip Danika Mendis DO Work Phone: spine InstituteComment on above:Spinal stenosis of lumbar region, unspecified whether neurogenic claudication present (Primary Dx); Lumbosacral spondylosis with radiculopathyStart: 05-17-2024 End: 20-61-1729ModsesObthk Hansel SHORT Work Phone: NeurologyComment on above:Refill RequestStart: 05-14-2024 End: 32-32-4751Aliqfhvhs encounterTamary Wagoner MD Work Phone: Spxjq InstituteComment on above:ResultsStart: 54-08-0960Bbv-patient / Non-visitAtrium Health University City Physician GroupO[facility] Work Phone: Start: 05-11-2024 End: 58-38-6200xvkpzoldbhCOLEET HAMATYFacility:[facility]ivien HospitalStart: 05-11-2024 End: 98-00-2233Syvlnpkezw hospital visit by physicianXr [facility] Work Phone: [facility] Radiology GeneralComment on above:Fall, initial encounter [W19.XXXA]Start: 05-09-2024 End: 18-53-5516mvicfsxxrpEdejatbpfAdena Regional Medical Center Work Phone: Start: 05-09-2024 End: 45-62-7077Qivcnuc encounter procedureAtrium Health [facility] Physician GroupAt[facility] Work Phone: Start: 05-01-2024 End: 81-14-5856Zguyfamwm encounterMarleo Cook MULTIMEDIA SPECIALIST.MATERIAL FLOW ENGINEER Work Phone: EndocrinologyComment on above:Prior Authorization (Mounjaro)Start: 04-26-2024 End: 25-86-9207Drsdcadic encounterMary Joyce MULTIMEDIA SPECIALIST.MATERIAL FLOW ENGINEER Work Phone: EndocrinologyComment on above:Medication ProblemStart: 04-24-2024 End: 59-43-4904xudtspvqfaMhrf Capelety MULTIMEDIA SPECIALIST.MATERIAL FLOW ENGINEER Work Phone: EndocrinologyStart: 04-24-2024 End: 90-03-6106Qjulpcu encounter procedureKarl Cook MULTIMEDIA SPECIALIST.MATERIAL FLOW ENGINEER Work Phone: EndocrinologyComment on above:Insurance [employer] for part DStart: 03-30-2024 End: 38-77-9785ryrpooiuutJzwf Rueth RD Work Phone: EndocrinologyStart: 03-30-2024 End: 33-19-9702Bluwyo-up encounterEmwaqas Morrow RD Work Phone: EndocrinologyComment on above:Medical Nutrition Therapy (Diabetes management follow-up)Start: 03-22-2024 End: 78-69-9603QrduxzWdcaj P Schwartz MULTIMEDIA SPECIALIST.MATERIAL FLOW ENGINEER Work Phone: NeurologyComment on above:Refill RequestStart: 03-20-2024 End: 17-53-1202xujywrdrdrPNRSE ROGER KUNSFacility:[facility] Start: 03-20-2024 End: 51-57-4537Riupdqf encounter Rody Rubio MD Work Phone: Neurological RestorationComment on above:Postural instability (Primary Dx); Abnormal saccadic eye movement; VertigoStart: 77-07-4635Nyp-patient / Non-visitAtrium Health [facility] Physician [facility] Work Phone: Start: 03-01-2024 End: 07-35-9747Trkpjxy encounter procedureSycamore Medical [facility] Work Phone: Start: 03-01-2024 End: 23-06-4777missfedfwiSozjyhx M Khalaf MD Work Phone: [facility] Work Phone: Comment on above:Fall, initial encounter (Primary Dx); Spinal stenosis of lumbar region, unspecified whether neurogenic claudication present; Lumbosacral spondylosis with radiculopathy; Scoliosis, unspecified scoliosis type, unspecified spinal regionStart: 03-01-2024 End: 78-34-0954Pbnvzwnmbbbj consultation with patientSteve Wagoner MD Work Phone: Spine InstituteStart: 02-29-2024 End: 98-90-3073LtetbmKuvuz P Manning MULTIMEDIA SPECIALIST.MATERIAL FLOW ENGINEER Work Phone: NeurologyComment on above:Refill RequestStart: 02-22-2024 End: 80-30-3834rcgdmkioxcQvrxuypzuAdena Regional Medical Center Work Phone: Start: 02-22-2024 End: 28-22-5431Ljmwngt encounter procedureAtrium Health [facility] Physician [facility] Work Phone: Start: 02-20-2024 End: 40-11-0814Qqdrqevnj encounterTamary Wagoner MD Work Phone: spine InstituteComment on above:Software Development Test Engineer - OtherStart: 02-16-2024 End: 71-41-0875ahuksdgweuWxty Hutchinson PT Work Phone: [facility] Physical TherapyComment on above:Imbalance (Primary Dx)Start: 02-15-2024 End: 93-85-6337NtphoaAhqds Griffin MD Work Phone: CardiologyComment on above:Refill RequestStart: 02-10-2024 End: 44-28-2857Ivwncwmra encounterZak Cohen DO Work Phone: spine InstituteComment on above:Post Injection call Start: 02-09-2024 End: 90-19-2331xfsacfcqotRuaq Hutchinson PT Work Phone: [facility] Physical TherapyComment on above:Imbalance (Primary Dx); 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athy (HCC)Start: 02-08-2024 End: 47-38-3973obxksqhxolFpdfxbfunAdena Regional Medical Center Work Phone: Start: 02-08-2024 End: 96-08-2229Uoyxdak encounter procedureAtrium Health [facility]ician [facility] Work Phone: Start: 02-07-2024 End: 49-59-4937wqityevdbbYSTYR ROGER KUNSFacility:[facility] Start: 02-06-2024 End: 01-56-8511ioybqggrztProclqr P COOKFacility:SEAN HawleyyStart: 02-06-2024 End: 67-06-3919Ernrmpf encounter Venkat LIVE [facility] Start: 02-02-2024 End: 80-59-8457Ppoodrihq encounterZak Cohen DO Work Phone: [facility] InstituteComment on above:Preparations For ProceduresStart: 02-02-2024 End: 36-09-6839xhrvhdcluaOfvt Hutchinson PT Work Phone: [facility] Physical TherapyComment on above:Imbalance (Primary Dx)Start: 01-30-2024 End: 50-53-1187Rdxwasgnd encounterEmjaret Schwartz APRN.MATERIAL FLOW ENGINEER Work Phone: NeurologyComment on above:Patient Update; Medication UpdateStart: 01-26-2024 End: 31-39-8896cxdtgxjizcUywu Hutchinson PT Work Phone: [facility] Physical TherapyComment on above: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athy (HCC) (Primary Dx); ImbalanceStart: 01-26-2024 End: 81-13-0255Pkkdmjtbn encounterKarl Lion PT Work Phone: [facility] Physical TherapyComment on above:Patient UpdateStart: 01-24-2024 End: 49-74-7085Jucyfpeea to same day surgery sebZak Cohen DO Work Phone: ambulatory SurgeryComment on above:Preprocedure instructionsStart: 01-24-2024 End: 57-71-7210O-mail encounter from caregiverZak Cohen DO Work Phone: ambulatory SurgeryStart: 01-20-2024 End: 57-99-4676miajzpdznvRkyyrok Mayuga MD Work Phone: CardiologyComment on above:Low blood pressureStart: 01-19-2024 End: 77-59-4063Gqjcjt OnlyVictor Manuelscar Cohen DO Work Phone: Spine InstituteComment on above:Spinal stenosis of lumbar region, unspecified whether neurogenic claudication present (Primary Dx); Lumbosacral spondylosis with radiculopathyType 2 diabetes mellitus with stage 3a chronic kidney disease, without long-term current use of insulin (HCC) (Primary Dx); 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athy (HCC); Mixed hyperlipidemiaStart: 01-17-2024 End: 12-75-3366bjlpxfeqpyRmveCorazon Lion PT Work Phone: [facility] Physical TherapyComment on above: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athy (HCC) (Primary Dx); ImbalanceStart: 01-16-2024 End: 51-14-2788iltdljbjpbSflo Biopsy Work Phone: NeurologyComment on above:ProcedureStart: 01-16-2024 End: 69-90-6211Yymoonq encounter procedureSkin Biopsy Work Phone: NeurologyStart: 01-16-2024 End: 25-25-7578Qaxmnfdgue hospital visit by physicianXr Main Zb8JnjjmbqmeGtvmrzz on above:Anterolisthesis of cervical spine [M43.12]Start: 01-16-2024 End: 49-39-9663Xraayyi encounter procedureTamary Wagoner MD Work Phone: ine InstituteComment on above:Lumbosacral spondylosis with radiculopathy (Primary Dx); Anterolisthesis of cervical spine; Spinal stenosis of lumbar region, unspecified whether neurogenic claudication present; Scoliosis, unspecified scoliosis type, unspecified spinal regionStart: 01-05-2024 End: 32-54-3178Dboodfy encounter procedureHeather Ford MD Work Phone: Breast CenterComment on above:Fibrocystic breast changes, bilateral (Primary Dx); Mastodynia; Family history of breast cancer; Family history of ovarian cancerStart: 01-05-2024 End: 44-06-3719Spippvtfoc hospital visit by physicianClinic Imaging Mammo Main MammographyComment on above:Screening breast examination [Z12.39]Start: 01-04-2024 End: 42-02-4100vcmtxgzwrkLajs Rueth RD Work Phone: EndocrinologyStart: 01-04-2024 End: 75-87-2130Dpydip-up encounterFarzana Morrow RD Work Phone: EndocrinologyComment on above:Medical Nutrition Therapy (Diabetes/ Weight management follow-up)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athy (HCC) (Primary Dx); ImbalanceStart: 12-27-2023 End: 31-35-4074Jtzewqrfu encounterHeather Ford MD Work Phone: Breast CenterComment on above:AppointmentStart: 12-26-2023 End: 59-56-4170wzudxevasaCfjkspc Mayuga MD Work Phone: CardiologyComment on above:Low Blood PresureStart: 12-22-2023 End: 14-30-8979dmqpommahqST Erich Gillis Work Phone: [facility] Work Phone: Start: 12-22-2023 End: 87-99-4216Uxnarkf encounter procedureDO Erich Gillis Work Phone: [facility] Work Phone: Start: 12-21-2023 End: 80-95-3705XnzcdoCrqiz Skyler Schwartz APRN.MATERIAL FLOW ENGINEER Work Phone: NeurologyComment on above:Refill RequestStart: 12-19-2023 End: 96-06-8698yhwlvjxztuQkrstf Hamaty MD Work Phone: EndocrinologyStart: 12-19-2023 End: 81-51-0456Lqqaevb encounter Kelsy Oneill MD Work Phone: EndocrinologyComment on above:Miley 3Start: 12-15-2023 End: 78-98-6222Xctwbvz encounter procedureSheryl Garza APRN.MATERIAL FLOW ENGINEER Work Phone: NeurologyComment on above:Neurogenic orthostatic hypotension (HCC) (Primary Dx); Imbalance; Orthostatic lightheadednessOrthostatic hypotension (Primary Dx)Start: 12-14-2023 End: 52-94-5314Usfpllg encounter procedureSyncope Opd Nurse Work Phone: CardiologyComment on above:Near syncope (Primary Dx); Labile blood pressureStart: 12-13-2023 End: 28-21-3121Gicshvcjd encounterLizbeth Keller RNCardiologyStart: 12-07-2023 End: 78-28-8064Ploxogxsx encounterSteve Wagoner MD Work Phone: spine InstituteComment on above:Software Development Test Engineer - OtherStart: 25-33-5516aktbfscnyaNDMPZOE M KHALAFFacility:[facility] Centertart: 12-04-2023 End: 48-17-6493Xotzstedoa hospital visit by physicianGuilherme [facility] (Istat/3t) Work Phone: [facility] Radiology MRIComment on above:Spinal stenosis of cervical region [M48.02]Spinal stenosis of lumbar region, unspecified whether neurogenic claudication present [M48.061]Start: 11-29-2023 End: 56-01-7843Nzcxhrf encounter procedureRachele Santo PT Work Phone: [facility] Physical TherapyComment on above: Chronic bilateral low back pain with right-sided sciatica (Primary Dx); Spinal stenosis of lumbar region, unspecified whether neurogenic claudication present; Lumbosacral spondylosis with radiculopathyStart: 11-29-2023 End: 10-44-3979cegadkcpidPmszt Adams PT Work Phone: Lopez Nicholson [facility] Physical TherapyStart: 11-29-2023 End: 17-69-7101Whhvvlpcwn hospital visit by physicianSamanta [facility] Work Phone: [facility] Radiology GeneralComment on above:Spinal stenosis of lumbar region, unspecified whether neurogenic claudication present [M48.061]Start: 11-29-2023 End: 76-28-7177Emmppdl encounter procedureTamary Wagoner MD Work Phone: spine InstituteComment on above:Spinal stenosis of cervical region (Primary Dx); Spinal stenosis of lumbar region, unspecified whether neurogenic claudication present; Lumbosacral spondylosis with radiculopathy; Bilateral arm weaknessRadiology XRStart: 11-22-2023 End: 53-87-4905erihemsuyhQW Erich Gillis Work Phone: [facility] Work Phone: Start: 11-22-2023 End: 99-63-9895Cwkiiqk encounter procedureDO Erich Cesarlisa Work Phone: [facility] Work Phone: Start: 39-97-6025Qrzdukhot encounterEmwaqas Morrow RD Work Phone: Endocrinology & Metabolic InstituteComment on above: AppointmentStart: 93-39-8702Uvdgsbcdb encounterEmwaqas Morrow RD Work Phone: EndocrinologyComment on above:Patient Question (Patient called to ask for assistance with primo sensor)Returning Patient's Call (Pt reports unable to open Primo 3 sample provided by educator. Requests an other sample. )Start: 95-20-6600byymwwfhybDDDFK ROGER KUNSFacility:[facility] Start: 11-05-2023 End: 05-60-5139Bestigtpdn hospital visit by physicianGuilherme [facility] (Istat/3t) Work Phone: [facility] Radiology MRIComment on above:Labile blood pressure [R09.89]Start: 10-98-0511Exjhju OnlySheryl Garza APRN.MATERIAL FLOW ENGINEER Work Phone: NeurologyComment on above:Labile blood pressure (Primary Dx); Abnormal saccadic eye movement; Pursuit movement deficiency; Other symptoms and signs involving the nervous systemOrdersStart: 10-26-2023 End: 32-05-7717Rynzfbx encounter Janessa Cook APRN.MATERIAL FLOW ENGINEER Work Phone: EndocrinologyComment on above:Type 2 diabetes mellitus with stage 3a chronic kidney disease, without long-term current use of insulin (HCC) (Primary Dx); 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athy (HCC); Mixed hyperlipidemiaStart: 10-21-2023 End: 49-32-1420Hihh [facility] Start: 41-24-6101JawwirKzggewBeth Alexander MD Work Phone: EndocrinologyComment on above:Refill RequestStart: 53-64-4969Jvl-patient / Non-visitDO Erich Gillis Work Phone: [facility] Work Phone: Start: 10-05-2023 End: 83-36-6600dwynzrlezqYbze Rueth RD Work Phone: EndocrinologyStart: 10-05-2023 End: 55-62-6978Lwqkvcb encounter procedureFarzana Morrow RD Work Phone: EndocrinologyComment on above:Medical Nutrition Therapy (Diabetes/ Abnormal weight gain management )Start: 10-03-2023 End: 37-09-1679Thejurb encounter procedureDO Erich Gillis Work Phone: [facility] Work Phone: Start: 10-03-2023 End: 89-05-6037gqtlkabmgzYW Erich Gillis Work Phone: [facility] Work Phone: Start: 10-03-2023 End: 66-21-3175mudjunyhbtIisofrbnmAdena [facility] Medical Center Work Phone: Start: 10-03-2023 End: 56-75-4109Qurbnfl encounter procedureAtrium Health [facility] Work Phone: Start: 68-59-9167Lrznqfgka encounterKarl Cook APRN.CNP Work Phone: EndocrinologyComment on above:OrdersStart: 09-22-2023 End: 76-53-1993Aqzrknofew hospital visit by physicianGuilherme Adams (Istat/3t) Work Phone: [facility] Radiology MRIComment on above:Canceled (Pt cx: Appointment Conflict)Start: 52-83-2308pzdzuanvxrPF Anirudh Arroyo Facility:FTMCStart: 09-19-2023 End: 74-21-1027Fcpn ManagementAnirudh Arroyo [facility] Start: 83-48-3915Fzv-patient / Non-visitAtrium Health University [facility] Physician GroupB[facility] Work Phone: Start: 89-91-0597NzheodXvgeiCayla Garza APRN.CNP Work Phone: NeurologyComment on above:Refill RequestStart: 09-13-2023 End: 43-90-7481Dfargxx encounter Rody Rubio MD Work Phone: Neurological RestorationComment on above:Postural instability (Primary Dx); Labile blood pressure; Abnormal saccadic eye movement; Pursuit movement deficiencyStart: 32-95-2912Rinynvvtb encounterLorraine Oneill MD Work Phone: EndocrinologyComment on above:Forms (DDM)Start: 33-36-2320Qsybpmjtz encounterLorraine Oneill MD Work Phone: Endocrinology & Metabolic InstituteComment on above: diabetic suppliesStart: 33-24-2976TatwdaNrtrge Hamaty MD Work Phone: EndocrinologyComment on above:Refill RequestStart: 08-31-2023 End: 76-70-9913wfhgkxbpnrVA Erich Gillis Work Phone: [facility] Work Phone: Start: 08-31-2023 End: 12-89-6756Tawbekp encounter procedureDO Erich Gillis Work Phone: [facility] Work Phone: Start: 65-92-0596Sttkdrthx encounterAndres Rubio MD Work Phone: Neurological RestorationComment on above:Question Start: 08-24-2023 End: 38-05-1349Nxupjsj encounter procedureEmg 2 Neur [facility] (Max Weight: 400) Work Phone: NeurologyComment on above:EMGStart: 08-16-2023 End: 83-27-2531efhtbztrtzPeemxmtp A. JonesFacility:FTMCStart: 08-16-2023 End: 18-57-2879Hhhs ManagementAnirudh Arroyo [facility] Start: 08-03-2023 End: 87-17-4967Eazwbsb encounter procedureDa King MD Work Phone: CardiologyComment on above:POTS (postural orthostatic tachycardia syndrome) (Primary Dx); Orthostatic lightheadedness; Palpitations; Dizziness; Mixed hyperlipidemiaStart: 07-30-2023 End: 28-21-9963nriozxdpanQdjpyp QuentinFacility:FTMCStart: 07-30-2023 End: 42-82-4032Ewuijqk encounter procedureAmanda Quentin [facility] Start: 12-07-9637ekcqjokgbdTrbno P Silberman APRN.MATERIAL FLOW ENGINEER Work Phone: NeurologyComment on above:NeuropathyStart: 07-26-2023 Non-patient / Non-visitDO Erich Gillis Work Phone: [facility] Work Phone: Start: 07-26-2023 End: 74-59-5890Cfquwgo encounter procedureSheryl Garza MULTIMEDIA SPECIALIST.MATERIAL FLOW ENGINEER Work Phone: NeurologyComment on above:Labile blood pressure (Primary Dx); Orthostatic lightheadedness; Abnormal saccadic eye movement; Pursuit movement deficiency; Other symptoms and signs involving the nervous system; Left leg weakness; Disturbance of skin sensation; Pain of foot, unspecified laterality; Postural instabilityStart: 07-26-2023 End: 35-73-7981ignuepurahVjpcvxw Skyler LIVEFacility:EU SanduskyStart: 07-26-2023 End: 62-57-6336Ujzobmc encounter procedureRyan Holland HIRO [facility] Start: 07-19-2023 End: 20-16-2155xvbbxrubntBF Erich Gillis Work Phone: [facility] Work Phone: Start: 07-19-2023 End: 86-61-3473Noubdzc encounter procedureDO Erich Gillis Work Phone: [facility] [facility] Vascular Surgery Work Phone: Start: 22-55-2910Kcdxngtey encounterNorma Ferreira Research CoordinatorEndocrinologyComment on above:Research (IRB # [id number]/Phase 2 Study to Evaluate the Safety and Efficacy of RTA 901 in Patients with Diabetic Peripheral Neuropathic Pain/PI: Starla Jaramillo /Research Coordinator: Norma Ferreira/)Start: 06-28-2023 End: 14-73-4715cztgagllbjTN Erich Gillis Work Phone: [facility] Work Phone: Start: 06-28-2023 End: 91-92-9469Ejtbanb encounter procedureDO Erich Gillis Work Phone: [facility] Orthopedics Work Phone: Start: 06-27-2023 End: 81-99-7998Ecjfbqq encounter procedureDO Erich Gillis Work Phone: [facility]-Ultrasound Main [place] Work Phone: Start: 06-27-2023 End: 55-44-0493fupyemaugkEZ Erich Gillis Work Phone: [facility] Work Phone: Start: 06-24-2023 End: 99-96-0666uvajovmorwPddiuq SpringerFacility:FTMCStart: 06-24-2023 End: 64-39-4338Shuo ManagementAmanEating Recovery Center [facility] Start: 06-23-2023 End: 68-25-3848Judemto encounter procedureLorraine Oneill MD Work Phone: EndocrinologyComment on above:Type 2 diabetes mellitus with stage 3a chronic kidney disease, without long-term current use of insulin (HCC) (Primary Dx); Abnormal weight gain; Mixed hyperlipidemia; 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athy (HCC)Start: 15-41-1036Oqq- patient / Non-visitDO Erich Gillis Work Phone: [facility] Work Phone: Start: 06-20-2023 End: 63-44-9836Byuiobl encounter procedureDO Erich Gillis Work Phone: [facility] Work Phone: Start: 06-17-2023 End: 66-44-1454Tqhlipdsg department patient visitDO Erich Gillis Work Phone: [facility]-Emergency Room Work Phone: Start: 08-82-9226txkdalkmksPtbpob Hamaty MD Work Phone: EndocrinologyComment on above:Blood testStart: 06-13-2023 End: 13-49-6573Emcxvdw encounter procedureAndrea Lees MD Work Phone: CardiologyComment on above:Labile blood pressure (Primary Dx); Near syncopeStart: 06-08-2023 End: 67-52-3718xuhnmnffttOokhqhwl A. JonesFacility:FTMCStart: 06-08-2023 End: 08-08-0868Rvkg ManagementAnirudh Arroyo [facility] Start: 06-07-2023 End: 06-97-6721Catnhqs encounter procedureDO Erich Gillis Work Phone: [facility] Vascular Surgery Work Phone: Start: 05-30-2023 End: 06-53-2666tsrafibdubXTSU STRAUBNot AvailableStart: 05-23-2023 End: 72-83-6091kmgtkuwxwsRQRSPJE L DAUCH-REDDINGNot AvailableStart: 05-23-2023 Bamboo flowsheetNichole L Dauch-Creola PT Work Phone: noms [facility] PTStart: 99-56-1225Fdjgyb flowsheetNichole L Dauch-Creola PT Work Phone: noms [facility] PTStart: 48-14-9819Bqijxseps encounterErich GillisST. MARY'S HOSPITAL Family Medicine [place]Start: 05-23-2023 End: 94-42-2615yjwsqfjzuiCqupkox L Dauch-Arline PT Work Phone: noms [facility] PTComment on above:Left foot pain (Primary Dx)Start: 05-20-2023 End: 02-78-8337bvlqscxiygQxrtnj QuentinFacility:FTMCStart: 05-20-2023 End: 80-16-4015Ggia ManagementKristie Saavedra [facility] Start: 05-16-2023 End: 72-81-1874gxxsebzvkcLDAVYAW L DAUCH-REDDINGNot AvailableStart: 05-15-2023 Chart abstractingNichole L Dauch-Arline PT Work Phone: noms [facility] PTStart: 05-12-2023 End: 74-45-7985rlndhmmlbiRgfjlpm L Dauch-Arline PT Work Phone: noms [facility] PTComment on above:Left foot pain (Primary Dx)Start: 05-06-2023 End: 79-26-1341nvtwmykgaxZPNHWTF L DAUCH-REDDINGNot AvailableStart: 05-03-2023 End: 87-06-9764thzbjhmyswSOEPEHO L DAUCH-REDDINGNot AvailableStart: 04-20-2023 End: 89-78-3996qishklsenlEN Bradford A. JonesFacility:FTMCStart: 04-20-2023 End: 24-82-1081Widl ManagementBragiana Arroyo [facility] Start: 04-06-2023 End: 92-18-1264qpeazoyrbxBkgjmdp [place] Other [facility] Other Start: 87-49-5934Rehrob outpatient visit 15 minutes Merary Vyas [place] OrthopedicsStart: 58-54-8622Shfvllz encounter procedureDO Erich Gillis Work Phone: Firsaint inigoesVeriana Networks [facility]-Start: 03-24-2023 End: 29-42-7649yqkoaihudsBwldf Kuns Other [facility] Other Start: 82-50-0965Ldsmlgqci encounterBrett Lexie Family Medicine [place]Start: 03-22-2023 End: 42-13-1573bjkonrfgumFklus Kuns Other [facility] [place] Other Start: 17-20-2345Pcizyqpxn encounterBrett DamarisG Family Medicine [place]Start: 03-15-2023 End: 86-90-8267zlqbcbgvfwTaynx Kuns Other north [place] Other Start: 33-80-0038Xoxosulom encounterErich Owen [facility] [place]Start: 03-10-2023 End: 66-70-2976cbumocygibCS Brett Kuns Work Phone: [facility] Work Phone: Start: 03-10-2023 End: 62-07-0922Jkndbvw encounter procedureDO Erich Gillis Work Phone: [facility]-Lab [place] Work Phone: Start: 03-09-2023 End: 36-00-9343mpylauynzeKfrjp Kuns Other [facility] Other Start: 10-70-2325Szekls outpatient visit [address] [facility] [place]Start: 03-07-2023 End: 37-28-1678pnliyrbhrxFRChris SaavedraFacility:FTMCStart: 03-07-2023 End: 10-61-2292Tmwr Chad Saavedra [facility] Start: 02-28-2023 End: 51-30-5806kyhuctoannHgfqjp D GoldnerFacility:FTMCStart: 02-28-2023 End: 27-30-9692Lqec Beth Malone [facility] Start: 66-04-2534Naypyk outpatient visit 15 minutes Merary [facility]opedicsStart: 02-25-2023 End: 10-27-2889plzfxcfjhpEV Erich Gillis Work Phone: [facility] Work Phone: Start: 02-25-2023 End: 12-71-3330Kjybdco encounter procedureDO Erich Kuns Work Phone: [facility] Start: 02-24-2023 End: 61-55-4267bbvlascgjqKjsue Arsenios Other [facility] Other Start: 82-25-9459Xnfrkkxdu encounterBrett DamarisG [facility] [place]Start: 02-21-2023 End: 22-62-5944ijdvnyoxpgFeoex Kuns Other [facility] Other Start: 70-06-3900Yqgjmrmxd encounterBrett DamarisG Family [facility] [place]Start: 02-18-2023 End: 74-13-6582ihjlnmaneuNT Erichdrew Gillis Work Phone: [facility] Work Phone: Start: 02-18-2023 End: 96-78-0300Ekfuwyr encounter procedureDO Erichdrew Gillis Work Phone: [facility]-XRay [facility] Work Phone: Start: 02-14-2023 End: 24-63-1726nlkqyqpcxaMujhf Kuns Other [facility] Other Start: 58-68-9795Dgzntxa evaluation of patient and reportBredrew CarlinG Family [facility] [place]Start: 75-37-5259Jetbhefil encounter Erichdrew OcampoG Family Medicine [place]Start: 02-08-2023 End: 68-49-7428isqvcbccsaVqusnmo P COOKFacility:SEAN SanduskyStart: 01-31-2023 End: 69-35-7047Ttox Beth Malone [facility] Start: 70-77-8177Tuumyy follow up visit related to original pxColleen CalveyFPG [place] OrthopedicsStart: 01-21-2023 End: 97-01-5797fwnmoqsmqiFZ Erich Gillis Work Phone: [facility] Work Phone: Start: 01-21-2023 End: 54-93-0347Rvhgpme encounter procedureDO Erich Gillis Work Phone: [facility]-XRay [place] [facility] Start: 12-30-2022 End: 53-38-2175Ucrvnra encounter procedureSjaida Penaloza MD Work Phone: Breast CenterComment on above:Costochondritis, acute (Primary Dx)Start: 12-30-2022 End: 00-03-0072Fhzjpbxijj hospital visit by physicianClinic Imaging Mammo Main MammographyStart: 38-84-7409Datotj follow up visit related to original Ibanllmorena [facility]ers OrthopedicsStart: 12-24-2022 End: 30-53-1314kuhghhyesiJR Erich Gillis Work Phone: [employer] Other Start: 12-24-2022 End: 28-58-9719Sjvwbay encounter procedureDO Erich Gillis Work Phone: [facility]-XRay [place] [facility] Start: 12-20-2022 End: 79-54-0069lrpjkhbrwgKxujv Kuns Other [employer] Other Start: 20-18-0089Nyjngocme encounterBredrew OcampoG Family Medicine [place]Start: 53-86-0113Aurmccpjh encounterLorraine Oneill MD Work Phone: Endocrinology & Metabolic InstituteComment on above: Lab OrdersStart: 17-37-3985Zbaozrzwg encounterSjaida Penaloza MD Work Phone: General SurgeryComment on above:AppointmentStart: 12-08-2022 End: 60-52-2728gjddmvkxysUmrwu Kuns Other [employer] Other Start: 93-22-5624Uyjdje outpatient visit 25 minutes Erich Owen [facility] [place]Start: 12-07-2022 End: 00-13-7260Pwkz Beth Malone [facility] Start: 12-01-2022 End: 28-91-8198nrzeysqhtgZhwuqnc [place] Other [facility] Other Start: 39-17-6900Srsgiq follow up visit related to original pxColleen CalveyFPG [facility]icsStart: 11-23-2022 End: 06-13-8946bdzqqqkpblYqijchx [place] Other noThe Editorialist [place] Other Start: 63-10-4300Mlnqui follow up visit related to original pxColleen CalveyFPG [facility]opedicsStart: 11-15-2022 End: 66-23-1482Eaesbpoqh to same day surgery Radha Gillis Work Phone: [facility]Start: 11-15-2022 End: 07-47-2840oyexslyrqrQR Brett Kuns Work Phone: [facility] Work Phone: Start: 33-98-7120Gwszdbzfn Isela King MD Work Phone: CardiologyComment on above:Blood PressureStart: 11-08-2022 End: 20-98-5864Mjsw Beth Malone [facility] Start: 11-05-2022 End: 26-05-7298lubufjupetOH Erichdrew Gillis Work Phone: [facility] Work Phone: Start: 11-05-2022 End: 95-95-1960Zrxpray encounter procedureDO Erichdrew Gillis Work Phone: [facility] Xan-Mcy-Wsztaznp Testing Work Phone: Start: 53-22-6639Ubadaz outpatient visit 25 minutes Merary Luna [facility] OrthopedicsStart: 11-03-2022 End: 55-60-6433lmafqqyukvUI Erich Gillis Work Phone: [facility] Other Start: 11-03-2022 End: 15-93-4800Eiuqqsz encounter procedureDO Erich Gillis Work Phone: [facility] Start: 10-26-2022 End: 26-42-8833Ssvk [facility] Douglas Malone [facility] Start: 10-20-2022 End: 54-86-5485oycfdircteHpslw Kuns Other [facility] Other Start: 60-24-3676Xegljguee encounterBredrew OcampoG Family Medicine [place]Start: 10-07-2022 End: 11-92-1820Tyjpuox encounter procedureDO Erich Gillis Work Phone: [facility]-CT [address] Work Phone: Start: 10-05-2022 End: 61-43-8381xhwstnylqmFwbvwma [place] Other [facility] Other Start: 38-27-8552Yolqrt outpatient visit 15 minutes Merary CalvRosa ElenaG [place] OrthopedicsStart: 09-30-2022 End: 44-13-5451ngplioulidTxzfj Kuns Other [facility] Other Start: 44-16-4996Cqljea outpatient visit 25 minutes Erich Owen [facility] [place]Start: 62-40-0210Qfnve abstractingJustice Andrews MAEndocrinologyComment on above:endocrine specialitesStart: 09-29-2022 Telephone encounterLorraine Oneill MD Work Phone: EndocrinologyComment on above:Forms ([facility] ) Start: 09-27-2022 End: 60-22-4047Aqhytpv encounter procedureDO Erich Gillis Work Phone: [facility]-Ultrasound [place] Work Phone: Start: 09-24-2022 End: 50-11-3716tndkthkxbhBqxvk Kuns Other [employer] Other Start: 01-46-9711Haukyoksy encounterBredrew Owen [facility] [place]Start: 09-20-2022 End: 19-64-2867Xusajqc encounter procedureDO Erich Gillis Work Phone: [facility]-Lab [place] Work Phone: Start: 64-48-3950AisbevHtoyzq Hamaty MD Work Phone: EndocrinologyComment on above:Refill RequestStart: 09-09-2022 End: 42-88-8909btpiyspiqjQdxcq Kuns Other [employer] Other Start: 27-27-6551Ywfzwkwos encounterBredrew CarlinDanika Family Medicine [place]Start: 09-08-2022 End: 80-58-4535Fbuvyye encounter procedureDO Erich Gillis Work Phone: [facility] CtrStart: 09-08-2022 End: 43-99-5456ahzvqnombnJF Erich Gillis Work Phone: [facility] Work Phone: Start: 56-07-0633Ehscru outpatient visit 25 minutes Erich [facility] Cast[place]Start: 45-46-2933Ddvmxsnne encounterDa King MD Work Phone: CardiologyComment on above:Medication Question; Blood PressureStart: 08-26-2022 End: 31-88-3552Degrbomqw department patient visitDO Erich Gillis Work Phone: [facility]-Emergency Room Work Phone: Start: 08-12-2022 End: 85-15-6767Sxmaevn encounter procedurePenobscot [facility] Start: 08-12-2022 End: 21-91-8492Cmcn ManagementPenobscot [facility] Start: 08-09-2022 End: 79-83-6188pnhpmimdzpVxsmc Carlin Other [facility] [employer] Other Start: 72-88-2344Tcpaegxgr encounterErich GillisWrentham Developmental Center [place]Start: 08-03-2022 End: 57-10-2335Czkokai encounter procedureDa King MD Work Phone: CardiologyComment on above:POTS (postural orthostatic tachycardia syndrome) (Primary Dx); Hypotension, chronic; Palpitations; DizzinessStart: 04-68-4599Vfqgdjyay encounterKarl Cook APRN.CNP Work Phone: EndocrinologyComment on above:Forms ([employer] Medicare DWP)Start: 30-66-6912Spdsjikkp encounterKarl Cook APRN.MATERIAL FLOW ENGINEER Work Phone: EndocrinologyComment on above:FormsStart: 06-24-2022 End: 68-35-1442ohoogclnenNJ Brett Kuns Work Phone: [facility] Work Phone: Start: 06-24-2022 End: 09-17-6192Wcyyrrt encounter procedure Erich Gillis Work Phone: [facility]-Lab [place] Work Phone: Start: 06-21-2022 End: 58-96-2380nlmsracttgTqiia Carlin Other [facility] [employer] Other Start: 25-61-9470Pjbbisewq encounterErich CesarlisaKEYANA Family Medicine [place]Start: 06-15-2022 End: 39-09-0275rwvtjepxkbTkrva Kuns Other [facility] [employer] Other Start: 56-57-9806Ftskxefwz encounterBredrew CesarlisaDanika Family [facility] [place]Start: 06-14-2022 End: 52-10-2556dlqgzabtnpMxratys [place] Other [facility] [employer] Other Start: 60-99-0819Vvzxge outpatient visit 15 minutes Merary BoothDanika [facility] OrthopedicsStart: 13-06-6605Aewwhivom encounterLorraine Oneill MD Work Phone: EndocrinologyComment on above:FormsStart: 06-03-2022 Telephone encounterKarl Cook APRN.CNP Work Phone: EndocrinologyComment on above:Henry lombardo DWOStart: 14-53-9296LouhtvVhmaPuneet Cook APRN.CNP Work Phone: [phone] InstituteStart: 05-27-2022 End: 48-65-8624trklvqdleqPnzyd Kuns Other [facility] [employer] Other Start: 34-32-7392Tndtpd outpatient visit 25 minutes Erich CesarlisaPenikese [facility] Medicine [place]Start: 32-64-5942Mxoqbnubg encounterKarl Cook APRN.MATERIAL FLOW ENGINEER Work Phone: EndocrinologyComment on above:Received Outside Medical Records (Podiatry )Start: 05-24-2022 End: 58-45-5576Wssnyng encounter procedureKarl Cook APRN.MATERIAL FLOW ENGINEER Work Phone: EndocrinologyComment on above:Elevated TSH (Primary Dx); Well controlled type 2 diabetes mellitus with neurological manifestations (HCC); Other hyperlipidemia [E78.49 (ICD-10-CM)]Start: 99-42-6491Ifdwgsowz encounter Karl Cook APRN.MATERIAL FLOW ENGINEER Work Phone: [phone] InstituteComment on above:OrdersStart: 05-12-2022 End: 73-74-9830ebozgaqulgDcsog Kuns Other [employer] Other Start: 55-24-4595Obgpuxwdu encounterKeshadrew GillisST. MARY'S HOSPITAL Family [facility] [place]Start: 03-07-3951Afozib outpatient visit 25 minutesErich GillisWrentham Developmental Center [place]Start: 05-10-2022 End: 87-08-6692zyzjzcbpzgBA Erich Gillis Work Phone: [facility] Work Phone: Start: 05-10-2022 End: 68-38-5042Hrjujye encounter procedureDO Erich Cesars Work Phone: [facility] CtrStart: 05-07-2022 End: 37-46-8274Astlcfh encounter procedureDO Erich Cesars Work Phone: [facility]-CT Scan [place] Work Phone: Start: 05-06-2022 End: 71-93-6434ttapyejzqfSiewu Kuns Other [facility] [employer] Other Start: 14-73-8241Wrpzpdaxq encounterBrett Lexie Family [facility] [place]Start: 05-04-2022 End: 40-92-1077xivdxwgtrjNlaux Kuns Other [facility] [employer] Other Start: 19-89-3902Kdacliaen encounterBrett CarlinG Family Medicine [place]Start: 05-03-2022 End: 54-02-4124payofoaagkIqgio Arsenios Other [facility] [employer] Other Start: 39-73-2263Fdsxnl outpatient visit 25 minutes Erich CarlinST. MARY'S [facility]PITAL Family Medicine [place]Start: 64-79-5822Feomlvhmv encounterBrett CarlinG Family Medicine [place]Start: 31-51-2794EjrfihKpbivl Hamaty MD Work Phone: EndocrinologyComment on above:Med Change RequestStart: 04-13-2022 End: 74-84-9177ckpfuxgvebBsbqy Kuns Other [facility] Other Start: 93-22-7613Oblybnoex encounterBrett CarlinST. MARY'S HOSPITAL Family Medicine [place]Start: 06-78-5259tbdcmsnaqvSwnjh P Silberman MULTIMEDIA SPECIALIST.MATERIAL FLOW ENGINEER Work Phone: NeurologyComment on above:Blood Pressure charting Start: 04-06-2022 End: 83-34-3775tkmvkjwtczMexbx Kuns Other [facility] [employer] Other Start: 70-13-7697Txgxraa evaluation of patient and reportBrett CarlinST. MARY'S HOSPITAL Family Medicine [place]Start: 48-76-4649Bvjtcdhzv encounter Erich GillisWrentham Developmental Center [place]Start: 03-19-2022 End: 07-71-1055ukjozazvgiWruzebn Cal[place] Other [facility] [employer] Other Start: 60-92-0084Gcayev outpatient visit 15 minutes Merayr ShardagilbertoST. MARY'S HOSPITAL [facility]icsStart: 02-15-2022 End: 25-83-4354Wpnixb Jorge King MD Work Phone: CardiologyComment on above:Dizziness (Primary Dx) Dizziness (Primary Dx); Hypotension, chronic; POTS (postural orthostatic tachycardia syndrome)Start: 54-25-8103pfikkmvnxg Carlita Henley APRN.CNP Work Phone: NeurologyComment on above:Blood pressure charting Start: 02-04-2022 End: 58-70-0947rnfzyuxojfYjtxx Kuns Other [facility] [employer] Other Start: 45-57-3496Npyxar outpatient visit 25 minutes Erichdrew CesarVal[facility] [place]Start: 99-13-6651Cjjltejbv encounterLorraine Oneill MD Work Phone: EndocrinologyComment on above:carlos PodiatryStart: 01-29-2022 End: 25-93-3032sjizakohxoAfxgyg Dimare APRN.MATERIAL FLOW ENGINEER Work Phone: NeurologyComment on above:Orthostatic lightheadedness (Primary Dx)Start: 01-29-2022 End: 78-47-1357Bpsrwllrmbns consultation with patientCarlita Henley APRN.MATERIAL FLOW ENGINEER Work Phone: [facility] MAINStart: 06-93-2225Lcfqkwoxb encounterLorraine Oneill MD Work Phone: EndocrinologyComment on above:Forms (Carlos)Start: 01-18-2022 End: 38-54-3947naeqnhapngRfkckex Mayuga MD Work Phone: CardiologyComment on above:Transient loss of consciousness (Primary Dx)Start: 01-18-2022 End: 11-06-3400Oljaveezsrmt consultation with Richa Lees MD Work Phone: [facility] MAINStart: 01-12-2022 End: 70-17-1509Dcadhwi encounter procedureGregory Skyler LIVE [facility] [place] Start: 01-11-2022 End: 04-39-9406qonkdyumwwQbttz Kuns Other [employer] Other Start: 74-80-4686Hhjrzuxts encounterBrett Lexie [facility] [place]Start: 01-07-2022 End: 87-33-9250xtncifwybsLilcq Kuns Other [employer] Other Start: 26-27-5231Jpkqgl outpatient visit 25 minutes Erichdrew Owen [facility] [place]Start: 12-18-2021 End: 88-32-2279bdwbxbczzfWoegz Kuns Other [employer] Other Start: 51-45-9897Qvqodi outpatient visit 25 minutes Erichdrew Owen [facility] [place]Start: 12-07-2021 End: 90-12-6564Myvy ManagementJamey Malone [facility] Start: 12-04-2021 End: 93-66-6055vkygmimeaaQlklt Kuns Other [employer] Other Start: 88-16-0504Qhdcexhdp encounterBrett Lexie [facility] [place]Start: 11-27-2021 End: 23-49-7245puerfsvkpvZsvmq Kuns Other [facility] [employer] Other Start: 01-48-1849Flgnhr outpatient visit 25 minutes Erich Owen Family [facility] [place]Start: 11-27-2021 End: 97-05-4699Aqqvzbq encounter procedureDO Erich Gillis Work Phone: [facility] Start: 11-23-2021 End: 53-56-0602arkyehnktdGohhz Kuns Other [facility] [employer] Other Start: 35-94-4532Vygfptwkd encounterBrett Lexie [facility] [place]Start: 11-17-2021 End: 29-57-7391glbtjhaaxlOdkbv Kuns Other [facility] [employer] Other Start: 19-02-8901Zcklyuweh encounterBredrew GillisWrentham Developmental Center [place]aliaStart: 95-76-4881Jhujzt OnlyDa King MD Work Phone: CardiologyComment on above:Dizziness (Primary Dx) Start: 11-12-2021 End: 52-26-3959Jczvhkg encounter procedureJamey Malone [facility] Start: 11-11-2021 End: 86-96-6818Taahwxt encounter Freda King MD Work Phone: CardiologyComment on above:Dizziness (Primary Dx); Hypotension, chronic; Syncope, unspecified syncope type; POTS (postural orthostatic tachycardia syndrome)Start: 48-77-9396Eorjpscrf encounterSheryl Garza APRN.MATERIAL FLOW ENGINEER Work Phone: NeurologyComment on above:Orders ([employer]ression [employer]ings )Start: 56-77-4777naptbkzrlkRiarg P Silberman APRN.MATERIAL FLOW ENGINEER Work Phone: NeurologyComment on above:ResultsOrthostatic lightheadedness (Primary Dx)Start: 82-25-6888I-mail encounter from caregiver Sheryl Garza HAN Work Phone: [facility] MAINStart: 16-56-7618Wbbqie Only Sheryl Holland Kayla HAN Work Phone: NeurologyComment on above:Orthostatic hypotension (Primary Dx)Blood pressure resultsStart: 29-73-0396Oqdjpckyb encounterEmjaret Garza HAN Work Phone: NeurologyComment on above:OrdersStart: 10-27-2021 End: 02-19-7810qmbtsqlxyxTfkei Kuns Other [facility] [employer] Other Start: 14-28-0075Rioeen outpatient visit 25 minutes Erich [facility] [place]Start: 86-85-4428Zwqisdggfzfbq procedure Mammography CoordinatorCCF [facility] MAINStart: 14-99-4171Tzewch encounterMammography CoordinatorMercy Health St. [facility] DepartmentStart: 10-22-2021 End: 19-37-0813Stfeievsoa hospital visit by physicianClinic Imaging Mammo Main MammographyComment on above:Screening breast examination [Z12.39]Start: 10-22-2021 End: 97-27-5545Ylmfbks encounter procedureEmjaret Skyler Kayla HAN Work Phone: NeurologyComment on above:Orthostatic intolerance (Primary Dx); Disturbance of skin sensation; Resting tremor; DizzinessMastalgia (Primary Dx); Rib pain on left sideStart: 10-19-2021 End: 29-38-2024mhaiiozwqmDxyul Kuns Other [facility] [employer] Other Start: 84-38-0488Thmiah outpatient visit 25 minutes Erich [facility] [place]Start: 10-19-2021 End: 03-77-6993Fvspged encounter procedureDO Erich Gillis Work Phone: [facility] C[facility]-CT [address] RdStart: 10-16-2021 End: 96-14-2163xvcdglozyhYpporss Ditty Other [facility] [employer] Other Start: 79-31-5842Uwxdcdsxj encounterMayco Myers GastroenterologyStart: 10-15-2021 End: 30-03-2434jqhljagibdRtuxo Kuns Other [facility] [employer] Other Start: 37-07-3915Jhdrbjwmx encounterBredrew [facility] CastaliaStart: 03-52-5073Fimewnlom encounterLizbeth Hines RNCardiologyComment on above:Software Development Test Engineer - OtherStart: 09-16-2021 End: 47-26-4843ercdtceoszRzjrsmhdb MainNeurologyComment on above:DizzinessStart: 09-16-2021 End: 71-73-1182Qxlbebw encounter procedureAutonomic 2 Neur MainCCF [facility] MAINStart: 09-16-2021 End: 87-01-3201dcjcwinomsOavpmesca MainNeurologyComment on above:DizzinessStart: 09-16-2021 End: 81-49-9423Skyghkk encounter procedureAutonomic 2 Neur MainCCF [facility] MAINStart: 09-16-2021 End: 96-50-5656Yrntkmb encounter procedureSyncope Opd Nurse Work Phone: CardiologyComment on above:Transient loss of consciousness (Primary Dx); Near syncope; Labile blood pressureStart: 55-48-6478Prihfyllg encounterLizbeth Hines RN CardiologyComment on above:Software Development Test Engineer - OtherStart: 09-01-2021 End: 31-12-4429xgabhwhynhVzioh Kuns Other [facility] Other Start: 30-54-6097Rwkddoqjw encounterBredrew [facility] CastaliaStart: 08-26-2021 End: 50-24-2487tnawhhrclqJohac Kuns Other [facility] Other Start: 26-53-6865Kwxbpitro encounterBredrew OcampoG Family Medicine CastaliaStart: 68-76-9814Gsucozfgm encounterRobryder Norwood DO Work Phone: NeurologyComment on above:Important Medication Instruction for ANS w/o TILT QSART 09/16Start: 08-12-2021 End: 52-80-6998ecpohyyqowLfsjz Kuns Other [facility] Other Start: 08-18-0256Bqxaqmbus encounterBredrew [facility] CastaliaStart: 07-28-2021 End: 83-98-8222vacqaekfwvDefrhpn Ditty Other [facility] Other Start: 27-31-8811Qycvzlpwq encounterCammabel Myers GastroenterologyStart: 07-02-2021 End: 96-63-4142Qjxyayo encounter Nell Saavedra [facility] Start: 06-09-2021 End: 84-22-9609jfhnibaqejKexni Kuns Other [facility] Other Start: 15-37-7185Qaoygy outpatient visit 15 minutes Erich [facility] [place]Start: 06-08-2021 End: 61-04-5622zoegznlryvUsbma Kuns Other [facility] Other Start: 69-09-0358Hdvylt outpatient visit 15 minutes Erich OcampoG [facility] Medicine CastaliaStart: 91-61-8491Ecvhaziub encounter Maycoroque Myers GastroenterologyStart: 06-05-2021 End: 18-52-9755ztblhwaieqAvldwgl Ditty Other noThe Editorialist [employer] Other Start: 29-30-3627Bveldufii encounterMayco ZaydaySOLISG Referral CoordinatorStart: 06-04-2021 End: 82-92-2223jrcrecajeuFbbdzyb Ditty Other [facility] Other Start: 36-45-4767ZFUH visit new patientMayco Colten RIDLEY GastroenterologyStart: 06-02-2021 End: 40-47-0395krvqaxerrhZnwpj Carlin Other [facility] Other Start: 66-59-5226Otthvumtn encounterBrett Lexie [facility] CastaliaStart: 05-04-2021 End: 35-72-2819tcqpwuyqdqCoygg Carlin Other [facility] Other Start: 34-99-6033Nsdpgfjwf encounterBrett Lexie [facility] CastaliaStart: 04-29-2021 End: 28-88-8693wljrnznjvzWeuvwuq Calvey Other [facility] Other Start: 39-67-5032Mdxnrl outpatient visit 25 minutes [facility]ST[facility] Robinson OrthopedicsStart: 11-29-2019 End: 37-49-8273Zmvbpgbyps hospital visit by physicianSamanta Benson 1 Work Phone: RadiologyComment on above:Post-op pain [G89.18] Procedures DateProcedureProcedure DetailPerforming ClinicianStart: 06-06-3819Tnjyzbbc of urethraGregory HOOKERTON Start: 27-54-9959YMYSWJ ON DEMANDCcf ProviderStart: 96-80-3197Rpevp chest X-rayErich Arseniolisa DO Work Phone: Start: 28-11-9023Dzsjc hip unilateral with pelvis 2-3 viewsTamary Wagoner MD Work Phone: Start: 78-69-8326Qnbsz Strep (POC)Start: 62-03-1455MKX (POC)Start: 93-40-9533SMWQWH ON DEMANDCcf ProviderStart: 40-06-9399Eganvgdwoq A1c/Hemoglobin.total in BloodLorraine Oneill MD Work Phone: Start: 50-97-3151Xsmpu spine cervical 4 or 5 views Chrisreedouglas Wagoner MD Work Phone: Start: 15-24-4961Buukqrs breast tomosynthesis bilateralLaksamisha Ford MD Work Phone: Start: 12-04-2023 End: 84-06-1859Eil spinal canal cervical w/o contrast matrlTagrmiles Wagoner MD Work Phone: Start: 03-67-7884Wejwj spine lumbosacral minimum 4 viewsTagrmiles Wagoner MD Work Phone: Start: 30-33-9308Hfz brain brain stem w/o w/contrast materialEmjaret Garza MULTIMEDIA SPECIALIST.MATERIAL FLOW ENGINEER Work Phone: Start: 11-83-4398Tbmq bld gluc mntr dev cleared fda spec home useCcf ProviderStart: 34-26-4503Trvju Strep (POC)DO Erich Carlin Work Phone: Start: 75-15-4780Nukuwkfui of sacroiliac joint using fluoroscopic guidanceAmanda Saavedra comment on above:0% reliefStart: 01-72-0175Prthl conduction studies 5-6 studiesEmjaret Garza APRN.MATERIAL FLOW ENGINEER Work Phone: Start: 68-55-1004Ezkbjd scan of lower limb veinsDO Erich Kuns Work Phone: Start: 31-36-6381GNB (POC)DO Erichdrew Cesars Work Phone: Start: 89-28-8836Qvqog X-ray of right handDO Erich Kuns Work Phone: Start: 33-29-6576Dzushxkec of sacroiliac joint using fluoroscopic guidanceHarrisonburg Circle of Moms comment on above:100% reliefStart: 04-20-2023 Radiofrequency ablation of nerve root of lumbar spine using fluoroscopic guidanceAmanda Circle of Moms comment on above:Right L4/5+L5/S1- 25% reliefStart: 66-87-9009Ylpecfnzvqi Panel (PCR)DO Erich Gillis Work Phone: Start: 32-37-8641Gvrsxjutq into facet joint of lumbar spine using fluoroscopic guidanceHarrisonburg Circle of Moms comment on above:100% reliefStart: 36-32-2794Beagx X- ray of left handDO Erich Gillis Work Phone: Start: 54-80-2874Zowzz chest X-rayDO Erich Gillis Work Phone: Start: 01-73-2075Okjvf X-ray of left handDO Erich Gillis Work Phone: Start: 28-24-4473Jularmsmn digital breast tomosynthesis Josy Babin MD Work Phone: Start: 84-90-4817Pqtyc X-ray of left handDO Erichdrew Gillis Work Phone: Start: 49-95-7644Iajlacgl of the trapeziumDO Erichdrew Cesars Work Phone: Start: 42-16-8706Vdnnh X-ray of left thumbDO Erich Gillis Work Phone: Start: 20-41-9661Kdzdhciuz of left wrist (body structure)Jamey Malone start: 21-85-5271Jjcvjgvia of sacroiliac joint using fluoroscopic guidanceJamey Malone comment on above:bilat SIJI (diagnostic)- 90% relief for at least 4 weeksStart: 66-70-2040Soggw X-ray of left handDO Erich Gillis Work Phone: Start: 84-08-0955MB of paranasal sinus without contrastDO Erich Carlin Work Phone: Start: 99-25-7385Hsgjrtpqtorqvyx of liverDO Erich Gillis Work Phone: Start: 58-43-2755Iotyk chest X-rayDO Erich Gillis Work Phone: Start: 41-84-8072Zfajycl point (body structure)Jamey Malone comment on above:100% relief until fall 1 week later. Start: 66-64-8267Fypvu chest X-rayDO Erich Gillis Work Phone: Start: 25-73-9934DN of head with contrastDO Erich Gillis Work Phone: Start: 20-89-8864Shvnfvmt injection of lumbar spine using fluoroscopic guidanceRyan LIVE Comment on above:L4/5 ANGELA- 95% reliefStart: 11-27-2021 Plain X-ray of bilateral handsDO Erich Gillis Work Phone: Start: 10-22-2021 End: 42-24-1955MjviqrtucvgVtsclc F Grundfest MD Work Phone: Start: 32-99-1295TQ of abdomen and pelvis without contrastDO Erich Arsenios Work Phone: Start: 30-82-5010Kxpi hip region structure (body structure)Jameykenisha Malone comment on above:80% reliefStart: 09-11-8277Tkumscfvyzr Carl Norwood DO Work Phone: Start: 41-72-5402Ukhublva of urethraAmanda Circle of Moms start: 82-11-1252Ibotmgusok examination knee 3 views Naldo Browne MD Work Phone: Start: 85-20-6400Qiyjqjxg of urethraAmanda Circle of Moms start: 25-28-5783Epfuoavf of urethraAmanda Circle of Moms start: 66-89-9845Jrdzipqsde, device (physical object) Waluzi carpal tunnel syndrome (disorder)Jamey Malone closed fracture of left foot (disorder)Jamey Malone colonoscopyColonoscopy( Confirmed )Waluzi History of cataract extractionS/P cataract surgery Comment on above:bilateral eyes 08/2023History of decompression of median nerve Erich Gillis Other History of decompression of median nerveH/O carpal tunnel repairDO Erich Gillis Work Phone: HysterectomyHysterectomy( Confirmed )Waluzi Injection of facet joint using fluoroscopic guidance Jamey Malone comment on above:R L4/L5 L5/S1 MBB-100% relief for 24 hoursLumpectomy of breastLumpectomy of breast( Confirmed )Waluzi Plan of Treatment DateCare ActivityDetailAuthorStart: 22-76-1368Gklzn microalbumin profile DTaP,Tdap,Td Vaccine (2 - Td or Tdap)[facility] 08-21[facility]2025 End: 92-02-0865Orwiosm encounter /13/2026 2:40 PM EDT Office Visit Endocrinology [address] [place] [address] Lorraine Oneill MD [address] [place] [address] follow upEndocrinologyComment on above:follow upStart: 76-32-4699Zzsfgprj foot examinationDiabetic Foot ExamUC [facility] Hospitaltart: 88-32-5302Duwqdphzyz measurementSerum CreatinineUC [facility] Hospitaltart: 84-02-9508Qzqqbmyqc B screeningUrine Albumin:Creatinine RatioUC [facility]: 07-23-2025 Hepatitis B surface antibody levelLDL CholesterolUC [facility] Hospitaltart: 98-94-6987Rhlxipdudj measurementSerum CreatinineUC West [facility] Hospitaltart: 94-28-9710Ncqbscrfm B screeningUrine Albumin:Creatinine RatioMercy Health St. [facility] Start: 14-79-0182Tpacvklqp B surface antibody levelLDL CholesterolUC [facility] Hospitaltart: 04-19-2025 End: 00-34-1308Lyikupv encounter nixmxkpdp00/09/2026 11:00 AM EST Office Visit Endocrinology [address] [facility] [place] [address] Karl Cook APRN.MATERIAL FLOW ENGINEER [address] [place] [address] Return in about 6 months (around 02/21/2025) for with nurse practitioner and in one year with Aury Oneill.EndocrinologyComment on above:Return in about 6 months (around 02/21/2025) for with nurse practitioner and in one year with Aury Oneill.Start: 03-05-2025 End: 38-11-3505Wglsqzx encounter krokfnxzf21/25/2025 10:00 AM EST Office Visit Neurology [address] [place] [address] Dori Padilla PA-C [address] [place] [address] NeurologyStart: 02-21-2025 End: 81-87-8808Jrwfszyhqdgdz metabolic 2000 panel - Serum or PlasmaCOMPREHENSIVE METABOLIC PANEL Lab Routine Type 2 diabetes mellitus with stage 3a chronic kidney disease, without long-term current use of insulin (HCC) Expected: 02/21/2025, Expires: 05/23/2025[facility] ClinicComment on above:Expected: 02/21/2025, Expires: 05/23/2025Start: 02-21-2025 End: 43-82-6332Nzpypudqic A1c in BloodHEMOGLOBIN A1C Lab Routine Type 2 diabetes mellitus with stage 3a chronic kidney disease, without long-term current use of insulin (HCC) Expected: 02/21/2025, Expires: 05/23/2025[facility] Work Phone: Comment on above:Expected: 02/21/2025, Expires: 05/23/2025Start: 02-21-2025 End: 68-29-1688Ozudz 1996 panel - Serum or PlasmaLIPID PANEL, FASTING Lab Routine Type 2 diabetes mellitus with stage 3a chronic kidney disease, without long-term current use of insulin (HCC) Expected: 02/21/2025, Expires: 05/23/[address] [facility] CenterComment on above:Expected: 02/21/2025, Expires: 05/23/2025Start: 02-21-2025 End: 64-25-3488Teincmzlueqr/Creatinine [Mass Ratio] in UrineALBUMIN/CREATININE RATIO, URINE Lab Routine Type 2 diabetes mellitus with stage 3a chronic kidney disease, without long-term current use of insulin (HCC) Expected: 02/21/2025, Expires: 05/23/2025[facility] ClinicComment on above:Expected: 02/21/2025, Expires: 05/23/2025Start: 02-21-2025 End: 09-29-5427HJB W/REFLEX FT4TSH W/REFLEX FT4 Lab Routine Type 2 diabetes mellitus with stage 3a chronic kidney disease, withoutlong-term current use of insulin (HCC) Expected: 02/21/2025, Expires: 05/23/2025[facility] ClinicComment on above:Expected: 02/21/2025, Expires: 05/23/2025Start: 32-97-5577Utceismfuz A1c psehdarswuoGoC0XAlefdymjd ClinicStart: 24-98-2965Xxnnbzqe foot examination Diabetic Foot ExamUC [facility]: 01-18-2025 End: 97-62-1750Fvsewdk encounter kryiqyjgr05/10/2025 11:00 AM EDT Office Visit Endocrinology [address] [place] [address] Karl Cook APRN.MATERIAL FLOW ENGINEER [address] [place] [address] Return in about 6 months (around 12/26/2024).Endocrinology Comment on above:Return in about 6 months (around 12/26/2024).Start: 01-09-2025 End: 34-63-0414Hqdloiz encounter fqeeqmqzz93/01/2025 2:00 PM EDT Education Endocrinology [address] [place] [address] [place] [address] [place] [address] joint, in-person appt 10/17/24 @ 11AM-12PMEndocrinologyComment on above:joint, in-person appt 10/17/24 @ 11AM-12PMStart: 96-73-7672Drxxneozv vaccinationInfluenza Vaccine (#1)[facility]: 90-07-0150Akcroxnkvs A1c yoewnhuqbsnMnE0JWcliigcmb ClinicStart: 10-17-2024 End: 34-15-9436Gttlezn encounter obvbuczzr59/09/2025 11:00 AM EDT Education Endocrinology [address] [place] [address] [place] [address] [place] [address] joint, in-person appt 10/17/24 @ 11AM-12PMEndocrinologyComment on above:joint, in-person appt 10/17/24 @ 11AM-12PMStart: 10-09-2024 End: 88-42-6819Ckmhanpgh to same day surgery centerAmbulatory SurgeryComment on above:INJECT GREATER TROCHANTERIC BURSA RIGHTINJECTION(S) STEROID TRANSFORAMINAL EPIDURAL LUMBAR W/IMAGE GUIDANCE FLUORO OR CTStart: 10-09-2024 End: 80-17-0029Roowkhfoxsyokk aspir&/inj major jt/bursa w/o [facility] [place] Start: 10-09-2024 End: 25-25-6045Chyokcfjyilw guidance needle placement add [facility] [place]AINStart: 10-09-2024 End: 03-10-5248Xop anes&/strd w/img tfrml edrl lmbr/sac 1 lvlINJECTION(S) STEROID TRANSFORAMINAL EPIDURAL LUMBAR W/IMAGE GUIDANCE FLUORO OR CT Lumbosacral spondylosis with radiculopathy Scoliosis, unspecified scoliosis type, unspecified spinal region Lumbosacral stenosis Spinal stenosis, lumbar region, without neurogenic claudication 10/09/2024 12:[address] [facility]: 10-09-2024 End: 68-70-9552Ree anes&/strd w/img tfrml edrl lmbr/sac ea lvINJECT ANES AGENT STEROID TRANSFORAMINAL EPIDURAL LUMBAR OR SACRAL EA ADD'L LEVEL W/IMAGE GUIDANCE FLUORO OR CT Lumbosacral spondylosis with radiculopathy Scoliosis, unspecified scoliosis type, unspecified spinal region Lumbosacral stenosis Spinal stenosis, lumbar region, without neurogenic claudication 10/09/2024 12:[address]Start: 49-95-3365Zrnhpozlut hospital visit by physicianAmbulatory Surgery Comment on above:Trochanteric bursitis of right hip [M70.61], Lumbosacral spondylosis with radiculopathy [M47.27], Scoliosis, unspecified scoliosis type, unspecified spinal region [M41.9], Lumbosacral stenosis [M48.07]Lumbosacral spondylosis with radiculopathy [M47.27], Scoliosis, unspecified scoliosis type, unspecified spinal region [M41.9], Lumbosacral stenosis [M48.07], Spinal stenosis, lumbar region, without neurogenic claudication [M48.061]Start: 91-82-2633Bvqqoqewwi measurementSerum CreatinineUC [facility] Hospitaltart: 56-11-2952Wzvfeuhfu B screeningUrine Albumin:Creatinine RatioMercy Health St. [facility] Start: 09-27-2024 End: 50-18-9925Eaeldid encounter gqckbrakx29/19/2025 11:00 AM EDT Office Visit [place] [address] [place] [address] [place] [address] [place] [address] s/p injectiosn with Dr. Hunt 08/14[facility] Comment on above:s/p injectiosn with Dr. Hunt 08/14Start: 09-13-2024 End: 21-71-7565Jgovqvd encounter zhmecbwqq31/05/2025 11:00 AM EDT Office Visit Neurology [address] [place] [address] Sheryl Schwartz, MARÍA ELENA.MATERIAL FLOW ENGINEER [address] [place], [place] [id number] 6 month follow upNeurologyComment on above:6 month follow upStart: 09-11-2024 End: 35-39-8099Mbkkjmz encounter xomacquke12/03/2025 9:40 AM EDT Office Visit [facility] [place] [address] [place] [address] Steve Wagoner MD [address] [place], [place] [id number] 4-6 weeksSpnew orleans east hospital InstituteComment on above:4-6 weeksStart: 08-29-2024 End: 00-41-2785Ujbljgq encounter procedureCardiologyComment on above:potsDX:POTS (postural orthostatic tachycardia syndrome)Start: 08-27-2024 End: 40-75-9973Jhgixhw encounter pyanbrujn01/19/2025 12:30 PM EDT Office Visit Neurology [address] [place] [address] Dori Padilla PA-C [address] [place], [place] [id number] 6 month follow upNeurologyComment on above:6 month follow upStart: 08-24-2024 End: 17-90-7049Dldohuc encounter ivftugxrp60/16/2025 9:30 AM EDT Office Visit Neurology [address] [place] [address] Sheryl Schwartz APRN.MATERIAL FLOW ENGINEER [address] [place] [address] 6 month follow upNeurologyComment on above:6 month follow upStart: 08-21-2024 End: 27-89-6445Dsczzya encounter seuluoxrr85/13/2025 3:00 PM EDT Office Visit Endocrinology [address] [place], [place] [id number] Lorraine Oneill MD [address] [place] [address] 6 month follow upEndocrinologyComment on above:6 month follow upStart: 08-21-2024 End: 92-19-6345Uvtpkjaxou A1c in BloodHEMOGLOBIN A1C Lab Routine Type 2 diabetes mellitus with stage 3a chronic kidney disease, without long-term current use of insulin (HCC) 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athy (HCC) Expec evans: 08/21/2024, Expires: 11/20/2024[facility] ClinicComment on above:Expected: 08/21/2024, Expires: 11/20/2024Start: 08-21-2024 End: 60-90-0409Wznko 1996 panel - Serum or PlasmaLIPID PANEL BASIC Lab Routine Type 2 diabetes mellitus with stage 3a chronic kidney disease, without long-term current use of insulin (HCC) 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athy (HCC) Expected: 08/21/2024, Expires: 11/20/2024[facility] Work Phone: Comment on above:Expected: 08/21/2024, Expires: 11/20/2024Start: 08-21-2024 End: 29-20-4734Ebntmfdqenip/Creatinine [Mass Ratio] in UrineALBUMIN/CREATININE RATIO, URINE Lab Routine Type 2 diabetes mellitus with stage 3a chronic kidney disease, without long-term current use of insulin (HCC) 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athy (HCC) Expected: 08/21/2024, Expires: 11/20/[address] [facility] Medical CenterComment on above:Expected: 08/21/2024, Expires: 11/20/2024Start: 08-21-2024 End: 85-33-7644Lgfvy function 2000 panel - Serum or PlasmaRENAL FUNCTION PANEL Lab Routine Type 2 diabetes mellitus with stage 3a chronic kidney disease, with out long-term current use of insulin (HCC) 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athy (HCC) Expected: 08/21/2024, Expires: 11/20/2024[facility] ClinicComment on above:Expected: 08/21/2024, Expires: 11/20/2024Start: 08-21-2024 End: 21-05-4647Ocelrmknvru [Units/volume] in Serum or PlasmaTHYROID STIMULATING HORMONE Lab Routine Type 2 diabetes mellitus with stage 3a chronic kidney diseas e, without long-term current use of insulin (HCC) 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athy (HCC) Expected: 08/21/2024, Expires: 11/20/2024[facility] ClinicComment on above:Expected: 08/21/2024, Expires: 11/20/2024Start: 08-16-2024 End: 51-62-5618Bkywyti encounter yhjhydibd78/08/2025 11:00 AM EDT Office Visit [facility] [place] [address] [facility] [place] [place] [address] [place] [address] [place] [address] Lumbosacral spondylosis with radiculopathy [M47.27] Spine InstituteComment on above:Lumbosacral spondylosis with radiculopathy [M47.27]Start: 08-14-2024 End: 28-55-6657Gvytmfaqm to same day surgery ohvpkb8508/14/2024 11:07 AM EDT - 08/14/2024 11:45 AM EDT Surgery Ambulatory Surgery [address] [place] [address] Zak Cohen, DO [address] [place] [address] SACRAL(CAUDAL) EPIDURAL BLOCK W/INJECTION NON NEUROLYTIC W/IMAGE GUIDANCEAmbulatory SurgeryComment on above: SACRAL(CAUDAL) EPIDURAL BLOCK W/INJECTION NON NEUROLYTIC W/IMAGE GUIDANCEStart: 08-14-2024 End: 08-08-4601Szs dx/ther sbst intrlmnr lmbr/sac w/img gdnSACRAL(CAUDAL) EPIDURAL BLOCK W/INJECTION NON NEUROLYTIC W/IMAGE GUIDANCE Lumbosacral spondylosis with radiculopathy Spinal stenosis of lumbar region, unspecified whether neurogenic claudication present 08/14/2024 11:07 AM EDTMC [place] Start: 86-18-6924Jregwednsz hospital visit by qwylzvypo14/06/2025 11:07 AM EDT Hospital Encounter Ambulatory Surgery [address] [place] [address] Zak Cohen, DO [address] [place] [address] Lumbosacral spondylosis with radiculopathy [M47.27], Spinal stenosis of lumbar region,unspecified whether neurogenic claudication present [M48.061]Ambulatory SurgeryComment on above: Lumbosacral spondylosis with radiculopathy [M47.27], Spinal stenosis of lumbar region, unspecified whether neurogenic claudication present [M48.061]Start: 94-17-1373Vwzaijrrxh measurementSerum CreatinineRail Road Flat ClinicStart: 77-40-7782Bfmztrepbb A1c icuhywwmbguHnG1XTufyfqptx ClinicStart: 07-12-2024 End: 49-05-9456rrcpjmbkun10/03/2025 9:30 AM EDT [facility] [place] [address] [place] [address] Steve Wagoner MD [address] [place], [place] [id number] 2-4 weeks Spine InstituteComment on above:2-4 weeksStart: 10-88-1150Vkgqdysy screening Dilated Retinal ExamUC [facility] Hospitaltart: 01-34-9484Ggfuk-19 Vaccine ( season)Covid-19 Vaccine ( season)[facility]: 06-28-2024 End: 22-78-7089ttafczlgir18/20/2025 9:30 AM EDT [facility] [place] [address] [place] [address] Steve Wagoner MD [address] [place] [address] 2-4 weeks Spine InstituteComment on above:2-4 weeksStart: 06-26-2024 End: 55-07-2004Veoxzuhwu to same day surgery centerAmbulatory SurgeryComment on above:INJECTION(S) ANESTHETIC AGENT AND STEROID TRANSFORAMINAL EPIDURAL LUMBAR W/IMAGE GUIDANCE FLUORO ORCTStart: 59-22-7548Ahrvhvhgzo hospital visit by physicianAmbulatory SurgeryComment on above:Spinal stenosis of lumbar region, unspecified whether neurogenic claudication present [M48.061], Lumbosacral spondylosis with radiculopathy [M47.27]Start: 06-26-2024 End: 93-34-1841Ivk anes&/strd w/img tfrml edrl lmbr/sac 1 lvlCdayton va medical center [facility] Start: 06-25-2024 End: 09-07-6061Gryssbd encounter bfusbaoug57/17/2025 3:00 PM EDT Office Visit Endocrinology [address] [place] [address] Karl Cook, MULTIMEDIA SPECIALIST.MATERIAL FLOW ENGINEER [address] [place], [place] [id number] 6 month follow upEndocrinologyComment on above:6 month follow upStart: 54-86-1451Izmavnph foot examinationDiabetic Foot ExamMercy Health St. [facility] Start: 06-14-2024 End: 85-10-2459Mfirejb encounter procedureNeurologyComment on above:6 month follow upStart: 06-07-2024 End: 81-39-6638Rltlnaipu to same day surgery iswsga1706/07/2024 10:39 AM EST - 06/07/2024 11:07 AM EST Surgery Ambulatory Surgery [address] [facility] [place] [address] Zak Cohen, DO [address] [place] [address] INJECTION(S) ANESTHETIC AGENT AND STEROID TRANSFORAMINAL EPIDURAL LUMBAR W/IMAGE GUIDANCE FLUORO OR CT Ambulatory SurgeryComment on above:INJECTION(S) ANESTHETIC AGENT AND STEROID TRANSFORAMINAL EPIDURAL LUMBAR W/IMAGE GUIDANCE FLUORO ORCTStart: 06-07-2024 End: 17-34-1851Spy anes&/strd w/img tfrml edrl lmbr/sac 1 lvlINJECTION(S) ANESTHETIC AGENT AND STEROID TRANSFORAMINAL EPIDURAL LUMBAR W/IMAGE GUIDANCE FLUORO ORCT Spinal stenosis of lumbar region, unspecified whether neurogenic claudication present Lumbosacral spondylosis with radiculopathy 06/07/2024 10:39 AM [facility]: 25-17-8400Ncwqrovbwo hospital visit by physician 06/07/2024 10:39 AM [facility] Hospital Encounter Ambulatory Surgery [address] [facility] [place] [address] JoelleZak cedeno, DO [address] [place] [address] Spinal stenosis of lumbar region, unspecified whether neurogenic claudication present [M48.061], Lumbosacral spondylosis with radiculopathy [M47.27]Ambulatory SurgeryComment on above:Spinal stenosis of lumbar region, unspecified whether neurogenic claudication present [M48.061], Lumbosacral spondylosis with radiculopathy [M47.27]Start: 06-07-2024 End: 07-65-2508Pashenyle to same day surgery tyufrx7206/07/2024 8:04 AM EST - 06/07/2024 8:32 AM [facility] Surgery Ambulatory Surgery [address] [facility] [place] [address] Zak Cohen, DO [address] [place] [address] INJECTION(S) ANESTHETIC AGENT AND STEROID TRANSFORAMINAL EPIDURAL LUMBAR W/IMAGE GUIDANCE FLUORO OR CTAmbulatory SurgeryComment on above:INJECTION(S) ANESTHETIC AGENT AND STEROID TRANSFORAMINAL EPIDURAL LUMBAR W/IMAGE GUIDANCE FLUORO ORCTStart: 06-07-2024 End: 95-41-0084Mvq anes&/strd w/img tfrml edrl lmbr/sac 1 lvlINJECTION(S) ANESTHETIC AGENT AND STEROID TRANSFORAMINAL EPIDURAL LUMBAR W/IMAGE GUIDANCE FLUORO ORCT Spinal stenosis of lumbar region, unspecified whether neurogenic claudication present Lumbosacral spondylosis with radiculopathy 06/07/2024 8:04 AM [facility]: 22-42-1946Yhhhcvwkul hospital visit by physician 06/07/2024 8:04 AM EST Hospital Encounter Ambulatory Surgery [address] [place] [address] Zak Cohen, DO [address] [place] [address] Spinal stenosis of lumbar region, unspecified whether neurogenic claudication present [M48.061], Lumbosacral spondylosis with radiculopathy [M47.27]Ambulatory SurgeryComment on above:Spinal stenosis of lumbar region, unspecified whether neurogenic claudication present [M48.061], Lumbosacral spondylosis with radiculopathy [M47.27]Start: 63-15-9210Dgpmmhtjfz measurementSerum CreatinineMercy Health St. Vincent Medical Center Start: 27-80-3325Pgwhvfynk B screeningUrine Albumin:Creatinine RatioUC West Chester Hospitaltart: 29-46-4609Rqkeffbzs B surface antibody levelLDL Cholesterol [facility]: 04-27-2024 End: 15-73-1936Hgfdhgi encounter rqyjdvqdy18/17/2025 11:00 AM EST Office Visit Endocrinology [address] [place] [address] Karl Cook APRN.MATERIAL FLOW ENGINEER [address] [place] [address] 6 month follow upEndocrinologyComment on above:6 month follow upStart: 04-20-2024 End: 39-98-7651Hqhmbxpdqbmhq metabolic 2000 panel - Serum or PlasmaCOMPREHENSIVE METABOLIC PANEL Lab Routine Type 2 diabetes mellitus with stage 3a chronic kidney disease, without long-term current use of insulin (HCC) Expected: 04/20/2024, Expires: 07/20/2024[facility] ClinicComment on above:Expected: 04/20/2024, Expires: 07/20/2024Start: 04-20-2024 End: 60-58-9415Tukzfnsxdo A1c in BloodHEMOGLOBIN A1C Lab Routine Type 2 diabetes mellitus with stage 3a chronic kidney disease, without long-term current use of insulin (HCC) Expected: 04/20/2024, Expires: 07/20/2024[facility] Work Phone: Comment on above:Expected: 04/20/2024, Expires: 07/20/2024Start: 04-20-2024 End: 77-15-8363Yewnu 1996 panel - Serum or PlasmaLIPID PANEL BASIC Lab Routine Type 2 diabetes mellitus with stage 3a chronic kidney disease, without long-term current use of insulin (HCC) Expected: 04/20/2024, Expires: 07/20/2024[facility] ClinicComment on above:Expected: 04/20/2024, Expires: 07/20/2024Start: 04-20-2024 End: 90-66-0655Bgyefebrosiu/Creatinine [Mass Ratio] in UrineALBUMIN/CREATININE RATIO, URINE Lab Routine Type 2 diabetes mellitus with stage 3a chronic kidney disease, without long-term current use of insulin (HCC) Expected: 04/20/2024, Expires: 07/20/2024[facility] ClinicComment on above:Expected: 04/20/2024, Expires: 07/20/2024Start: 04-20-2024 End: 56-54-5083Potbjvmpdny [Units/volume] in Serum or PlasmaTHYROID STIMULATING HORMONE Lab Routine Type 2 diabetes mellitus with stage 3a chronic kidney diseas e, without long-term current use of insulin (HCC) Expected: 04/20/2024, Expires: 5C[facility] ClinicComment on above:Expected: 04/20/2024, Expires: 07/20/2024Start: 32-47-1077Pcwqhdq Directive DiscussionAdvance Directive DiscussionUC West Chester Hospitaltart: 66-67-6870Sgfzuxjder A1c cdcbzvcqparWfC3S [facility]: 03-30-2024 End: 96-86-7115Ungzxr-up /20/2024 10:00 AM EST Education Endocrinology [address] [place] [address] [place] [address] [place] [address] FOLLOW UPEndocrinologyComment on above:FOLLOW UPStart: 03-20-2024 End: 15-87-2682Tewgbtn encounter fsbpliybu89/10/2024 2:00 PM EST Office Visit Neurological Shinto [address] [id number] Andres Rubio MD [address] [place] [address] follow upNeurological RestorationComment on above:follow up Start: 03-01-2024 End: 05-81-1509mppvczuwer83/21/2024 10:00 AM EST [facility] [place] [address] [place] [address] Steve Wagoner MD [address] [place] [address] f/uSpine InstituteComment on above:f/uStart: 02-16-2024 End: 19-24-1422gdfwclbidzHlzgHouston [facility] Physical TherapyComment on above: 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athy (HCC) [E11.42]Abnormality of GaitStart: 02-09-2024 End: 51-75-3635iqxnwhkkxrNzcuHouston [facility] Physical TherapyComment on above: 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athy (HCC) [E11.42]Abnormality of GaitStart: 02-07-2024 End: 04-46-5347Ycuulztnt to same day surgery kziqne4802/07/2024 1:20 PM EDT - 02/07/2024 1:55 PM EDT Surgery Ambulatory Surgery [address] [place] [address] Zak Cohen DO [address] [place] [address] INJECTION(S) ANESTHETIC AGENT AND STEROID TRANSFORAMINAL EPIDURAL LUMBAR W/IMAGE GUIDANCE FLUORO OR CTAmbulatory SurgeryComment on above:INJECTION(S) ANESTHETIC AGENT AND STEROID TRANSFORAMINAL EPIDURAL LUMBAR W/IMAGE GUIDANCE FLUORO ORCTStart: 02-07-2024 End: 14-80-4505Gxw anes&/strd w/img tfrml edrl lmbr/sac 1 lvlINJECTION(S) ANESTHETIC AGENT AND STEROID TRANSFORAMINAL EPIDURAL LUMBAR W/IMAGE GUIDANCE FLUORO ORCT Spinal stenosis of lumbar region, unspecified whether neurogenic claudication present Lumbosacral spondylosis with radiculopathy 02/07/2024 1:20 PM EDTMC [facility]ORAINStart: 64-40-6107Cdjuranbvr hospital visit by physician 02/07/2024 1:20 PM EDT Hospital Encounter Ambulatory Surgery [address] [place] [address] Zak Cohen, DO [address] [place] [address] Spinal stenosis of lumbar region, unspecified whether neurogenic claudication present [M48.061], Lumbosacral spondylosis with radiculopathy [M47.27]Ambulatory SurgeryComment on above:Spinal stenosis of lumbar region, unspecified whether neurogenic claudication present [M48.061], Lumbosacral spondylosis with radiculopathy [M47.27]Start: 02-07-2024 End: 31-39-1251Wynqyjlno to same day surgery pjzqvt0302/07/2024 8:38 AM EDT - 02/07/2024 9:13 AM EDT Surgery Ambulatory Surgery [address] [place] [address] Zak Cohen, [address] [place] [address] INJECTION(S) ANESTHETIC AGENT AND STEROID TRANSFORAMINAL EPIDURAL LUMBAR W/IMAGE GUIDANCE FLUORO OR CTAmbulatory SurgeryComment on above:INJECTION(S) ANESTHETIC AGENT AND STEROID TRANSFORAMINAL EPIDURAL LUMBAR W/IMAGE GUIDANCE FLUORO ORCTStart: 02-07-2024 End: 33-46-1215Ciq anes&/strd w/img tfrml edrl lmbr/sac 1 lvlINJECTION(S) ANESTHETIC AGENT AND STEROID TRANSFORAMINAL EPIDURAL LUMBAR W/IMAGE GUIDANCE FLUORO ORCT Spinal stenosis of lumbar region, unspecified whether neurogenic claudication present Lumbosacral spondylosis with radiculopathy 02/07/2024 8:38 AM EDTMC ASC LORAINStart: 21-06-0620Xtivxgznnc hospital visit by physician 02/07/2024 8:38 AM EDT Hospital Encounter Ambulatory Surgery [address] [place] [address] Zak Cohen DO [address] [place] [address] Spinal stenosis of lumbar region, unspecified whether neurogenic claudication present [M48.061], Lumbosacral spondylosis with radiculopathy [M47.27]Ambulatory SurgeryComment on above:Spinal stenosis of lumbar region, unspecified whether neurogenic claudication present [M48.061], Lumbosacral spondylosis with radiculopathy [M47.27]Start: 02-07-2024 End: 70-28-5884Hfksckn encounter bgvlnyeoc87/29/2024 7:00 AM EDT Office Visit Pre Admission Testing [address] [place] [address] JoelleisPre Admission TestingComment on above:MendisStart: 02-02-2024 End: 44-26-5203lwawoaxipmGnef [facility] Physical TherapyComment on above: 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athy (HCC) [E11.42]Abnormality of GaitStart: 01-26-2024 End: 98-55-7972dvuueavxjr37/17/2024 3:15 PM EDT OT/PT/Speech Visit [facility] Physical Therapy [address] [place] [address] Karl Lion, PT [address] [place] [address] 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athy (HCC) [E11.42][facility] Physical TherapyComment on above: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athy (HCC) [E11.42]Start: 01-19-2024 End: 83-55-2978Vqagmuv encounter mquwocyqm50/10/2024 3:00 PM EDT Office Visit Endocrinology [address] [place] [address] Lorraine Oneill MD [address] [place] [address] 6 month follow upEndocrinologyComment on above:6 month follow upStart: 01-17-2024 End: 31-69-0133Gcivcii encounter xvobhompl81/08/2024 11:15 AM EDT OT/PT/Speech Visit [facility] Physical Therapy [address] [place] [address] LionKarl watt, PT [address] [place] [address] PT consultCameron Memorial Community Hospital Physical TherapyComment on above:PT consultStart: 01-16-2024 End: 93-49-3471ckkflpxzjr92/07/2024 1:05 PM EDT Procedure Neurology [address] [place] [address] Neurogenic orthostatic hypotension NeurologyComment on above:Neurogenic orthostatic hypotensionStart: 01-16-2024 End: 50-96-5638Kkxwajz encounter wuquwdixd45/07/2024 9:40 AM EDT Office Visit [facility] [place] [address] [place] [address] Steve Wagoner MD [address] [place], [place] [phone] f/u with provider,Spine InstituteComment on above:f/u with provider,Start: 01-14-2024 End: 29-88-1455Ukwnjhgtdaaam metabolic 2000 panel - Serum or PlasmaCOMPREHENSIVE METABOLIC PANEL Lab Routine Neurogenic orthostatic hypotension (HCC) Expected: 01/14/2024, Expires: 04/14/2024leveland ClinicComment on above:Expected: 01/14/2024, Expires: 04/14/2024Start: 01-06-2024 End: 51-55-5532Rigmelo encounter uxjutsgxv39/27/2024 11:30 AM EDT Appointment Mammography [address] [address] Befugnhjuew Start: 01-05-2024 End: 65-67-0759Ebvuuil encounter procedureBreast CenterComment on above:Annual exam/mammogramIMAGING AT 245P; ESTABLISH CAREStart: 01-04-2024 End: 41-47-4557Kpqviu-up cvavxfsgr59/25/2024 10:00 AM EDT Education Endocrinology [address] [place] [address] [place] [address] [place] [address] FOLLOW UPEndocrinologyComment on above:FOLLOW UPStart: 43-44-2294Rnfjlgncn B surface antibody levelLDL CholesterolMercy Health St. Vincent Medical [facility] Start: 08-67-6019Thzlf CreatinineSerum CreatinineUC West [facility] Hospitaltart: 12-15-2023 End: 92-91-8057wpqwntkawy70/05/2024 1:00 PM EDT Results Only Cardiology [address] [place] [address] 6 month f/uCardiologyComment on above:6 month f/uStart: 12-15-2023 End: 48-92-7718Dofkzqs encounter procedureNeurologyComment on above:f/u6 month f/uStart: 12-14-2023 End: 69-16-3504Lnqbje OnlyCardiologyComment on above:[place] - Labile blood pressure [R09.89]; Near syncope [R55]Start: 00-16-4712Whfun-19 Vaccine ()Covid-19 Vaccine ()[facility]: 01-86-6250Mrchr-19 Vaccine ()Covid-19 Vaccine ()[facility]: 87-39-7456Oslpbtwfo vaccinationInfluenza Vaccine (#1)[facility]: 12-09-2023 End: 90-05-7837Ynedqod encounter procedureCardiologyComment on above:Labile blood pressure [R09.89]; Near syncope [R55][place] - Labile blood pressure [R09.89]; Near syncope [R55]Start: 12-04-2023 End: 45-61-2476Hpewmxw [facility]Log[facility] Radiology MRIComment on above:Spinal stenosis of cervical region [M48.02]Spinal stenosis of lumbar region, unspecified whether neurogenic claudication present [M48.061]Start: 11-29-2023 End: 05-68-1036Jqqhpey encounter xjomojjil82/20/2024 11:20 AM EDT Office Visit [facility] [place] [address] [place], [place] [id number] Steve Wagoner MD [address] [place], [place] [id number] Former Pt--requests to see Dr. Wagoner [facility] Comment on above:Former Pt--requests to see Dr. Wagoner againStart: 11-18-2023 Hemoglobin A1c tvplvsvafxuUiN0KPrqgeseki ClinicStart: 11-05-2023 End: 10-61-0457Ckcoqel encounter zevcsergu87/27/2024 10:40 AM EDT Appointment [facility] [place] [address] [place], [place] [id number] [facility] B[facility]Av[facility] Radiology MRIComment on above:MRI BRAIN WO/W IVCONStart: 17-71-3075Unoglzuoyt hospital visit by [facility] Radiology MRIComment on above:Labile blood pressure [R09.89]Start: 10-26-2023 End: 05-27-3180Dpymxbr encounter /17/2024 4:00 PM EDT Office Visit Endocrinology [address] [facility] [place] [address] Karl Cook, MULTIMEDIA SPECIALIST.MATERIAL FLOW ENGINEER [address] [place] [address] 3 month follow upEndocrinologyComment on above:3 month follow upStart: 10-17-2023 End: 47-32-1612Pjhujomxaxhqh metabolic 2000 panel - Serum or PlasmaCOMPREHENSIVE METABOLIC PANEL Lab Routine Well controlled type 2 diabetes mellitus with neurological manifestations (HCC) Expected: 10/17/2023, Expires: 01/16/[address] [facility] Medical CenterComment on above:Expected: 10/17/2023, Expires: 01/16/2024Start: 10-17-2023 End: 32-88-7731Afxcccglxf A1c in BloodHEMOGLOBIN A1C Lab Routine Well controlled type 2 diabetes mellitus with neurological manifestations (HCC) Expected: 10/17/2023, Expires: 01/16/2024[facility] HospitalComment on above:Expected: 10/17/2023, Expires: 01/16/2024Start: 10-17-2023 End: 27-98-8915Erhvfjkpvjsl/Creatinine [Mass Ratio] in UrineALBUMIN/CREATININE RATIO, URINE Lab Routine Well controlled type 2 diabetes mellitus with neurological manifestations (HCC) Expected: 10/17/2023 (Approximate), Expires: 01/16/2024[facility] Work Phone: Comment on above:Expected: 10/17/2023 (Approximate), Expires: 01/16/2024Start: 10-17-2023 End: 42-88-6796Fwlnakqgfsz [Units/volume] in Serum or PlasmaTHYROID STIMULATING HORMONE Lab Routine Well controlled type 2 diabetes mellitus with neurological m anifestations (HCC) Expected: 10/17/2023, Expires: 01/16/2024[facility] Comment on above:Expected: 10/17/2023, Expires: 01/16/2024Start: 10-17-2023 End: 01-57-9810Fdsftxudf (T4) free [Mass/volume] in Serum or PlasmaT4 FREE/FREE THYROXINE Lab Routine Well controlled type 2 diabetes mellitus with neurological manifestations (HCC) Expected: 10/17/2023, Expires: 01/16/2024[facility] Comment on above:Expected: 10/17/2023, Expires: 01/16/2024Start: 10-05-2023 End: 46-58-5343Kcejbih encounter wlpxzksyd63/26/2024 11:00 AM EDT Education Endocrinology [address] [place] [address] [place] [address] [place] [address] Type 2 diabetes mellitus with stage 3a chronic kidney disease, without long-term current use of insulin (HCC) [E11.22, N18.31] EndocrinologyComment on above:Type 2 diabetes mellitus with stage 3a chronic kidney disease, without long-term current use of insulin (HCC) [E11.22, N18.31] Start: 44-54-2958BzrtodojuNorwalk Memorial Hospitaltart: 09-22-2023 End: 60-16-9161Hiclfpi encounter lagdcxswy99/13/2024 2:00 PM EDT Appointment [facility] [place] [address] [place], [place] Labile blood pressure [R09.89][facility] Radiology MRIComment on above:Labile blood pressure [R09.89]Start: 01-77-1724Iobaatvncu hospital visit by ocetuxkgq2024 2:00 PM EDT Hospital Encounter [facility] [place] [address] [place] [address] Canceled (Pt cx: Appointment Conflict)[facility] Radiology MRIComment on above:Canceled (Pt cx: Appointment Conflict)Start: 94-79-1362Qpttatj referralBellevue Hospital Work Phone: Start: 09-13-2023 End: 59-86-2977Qibggxm encounter ieksjmklf81/04/2024 11:00 AM EDT Office Visit Neurological [facility]into [address] [place] [address] Andres Rubio MD [address] [place] [address] Labile blood pressure [R09.89]Neurological RestorationComment on above:Labile blood pressure [R09.89]Start: 08-24-2023 End: 64-80-0337Xyqtvba encounter stcuogqqb42/15/2024 10:35 AM EDT Procedure [facility] [address] [place] [place] [address] Xgkc leg weakness [R29.898]NeurologyComment on above:Left leg weakness [R29.898]Start: 58-56-2226YL CONTROLLED (<130/80)BP CONTROLLED (<130/80)[facility]: 07-26-2023 End: 23-35-9685Smszr tocopherol [Mass/volume] in Serum or PlasmaAcmc Healthcare System [facility] Work Phone: Comment on above:Expected: 07/26/2023, Expires: 10/25/2023Start: 07-26-2023 End: 29-04-6145UJEFOU BLOODAcmc Healthcare System Glenbeigh Work Phone: Comment on above:Expected: 07/26/2023, Expires: 10/25/2023Start: 07-26-2023 End: 65-96-3534QLSXZWELTT NACHR ANTIBODYAcmc Healthcare System Glenbeigh Work Phone: Comment on above:Expected: 07/26/2023, Expires: 10/25/2023Start: 07-26-2023 End: 21-36-5418PRJOLQBRYQSWGO SCREEN, SERUMAcmc Healthcare System Glenbeigh Work Phone: Comment on above:Expected: 07/26/2023, Expires: 10/25/2023Start: 07-26-2023 End: 79-97-0886ZATMA/JOLYNN PURI,SERAcmc Healthcare System Glenbeigh Work Phone: Comment on above:Expected: 07/26/2023, Expires: 10/25/2023Start: 06-60-7507Xvrlyd scan of lower limb veinsUS venous duplex LE RT [facility]tart: 60-36-7604DM Lower extremity vein - rightNorwalk Memorial Hospitaltart: 24-59-5653Fnupwyveyr A1c/Hemoglobin.total in GeleeYfT4QUejbvcwnc ClinicStart: 06-02-2023 End: 42-75-4175nmfmjhzfrb65/22/2024 1:30 PM EST Treatment [facility] PT [address] [place] [address] Neva Epps PTANOMS [facility] PTStart: 05-30-2023 End: 98-40-8198brlqlkpojf30/19/2024 1:30 PM EST Treatment [facility] PT [address] [place] [address] Neva Epps [facility]ANOMS [facility] PTStart: 05-26-2023 End: 63-06-2024wcletrbnir82/15/2024 1:30 PM EST Treatment [facility] PT [address] [place] [address] Tameka Krause, PT [address] [place] [address] [facility] PTStart: comp foot exam completedDIABETIC FOOT EXAM [facility]: 19-43-5616FL CONTROLLED (<130/80)BP CONTROLLED (<130/80) [facility]: 09-57-6324Cjfisdnq foot examinationDiabetic Foot Exam [facility]: 05-23-2023 End: 42-67-7526iklfunenplNXGM SWS PTComment on above:ArrivedStart: 05-21-2023 Hepatitis B screeningURINE ALBUMIN:CREATININE RATIOUC [facility] Hospitaltart: 27-27-4969Ypeavgxca B surface antibody levelLDL CHOLESTEROLMercy Health St. [facility] Start: 21-30-3781VMYQH CREATININESERUM CREATININEUC West Chester Hospitaltart: 05-19-2023 End: 34-13-8478mabywlcqbn25/08/2024 1:30 PM EST Treatment [facility] PT [address] [place] [address] Tameka Krause, PT [address] [place] [address] [facility] PTStart: 05-16-2023 End: 65-34-2345djelsiibts43/05/2024 1:30 PM EST Treatment [facility] PT [address] [place] [address] Tameka Krause, PT [address] [place] [address] [facility] PTStart: 45-22-4010Hlaadhn Directive DiscussionAdvance Directive DiscussionUC West [facility] Hospitaltart: 60-98-5837NH CONTROLLED (<130/80)BP CONTROLLED (<130/80)[facility]: 06-76-4617DNMXX CREATININESERUM CREATININE [facility]: 12-19-2022 End: 90-11-9351Oxtgoayfldsmo metabolic 2000 panel - Serum or PlasmaCOMP METABOLIC PANEL Lab Routine 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athy (HCC) Expected: 12/19/2022, Expires: 02/18/2023[facility] Work Phone: Comment on above:Expected: 12/19/2022, Expires: 02/18/2023Start: 12-19-2022 End: 19-11-6205Ewblhtppbl A1c in BloodHGB A1C Lab Routine 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athy (HCC) Expected: 12/19/2022,Expires: 02/18/2023[facility] Work Phone: Comment on above:Expected: 12/19/2022, Expires: 02/18/2023Start: 12-19-2022 End: 50-48-1986Dpkrv 1996 panel - Serum or PlasmaLIPID PANEL BASIC Lab Routine 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athy (HCC) Expected: 12/19/2022, Expires: 02/18/2023[facility] Work Phone: Comment on above:Expected: 12/19/2022, Expires: 02/18/2023Start: 12-19-2022 End: 57-15-5905Uteedjqwmpm [Units/volume] in Serum or PlasmaTSH BLD Lab Routine 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athy (HCC) Expected: 12/19/2022, Expires: 02/18/2023[facility] Work Phone: Comment on above:Expected: 12/19/2022, Expires: 02/18/2023Start: 12-19-2022 End: 76-36-8197Anzzfljlw (T4) free [Mass/volume] in Serum or PlasmaT4 FREE/FREE THYROX Lab Routine 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athy (HCC) Expected:12/19/2022, Expires: 02/18/2023[facility] Work Phone: Comment on above:Expected: 12/19/2022, Expires: 02/18/2023Start: 12-19-2022 End: 11-50-2037Fcnqexycezlqggsf (T3) Free [Mass/volume] in Serum or PlasmaT3 FREE BLD Lab Routine 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athy (HCC) Expected: 12/19/2022, Expires: 02/18/2023[facility] Work Phone: Comment on above:Expected: 12/19/2022, Expires: 02/18/2023Start: 94-38-3697Kvbfw-19 Vaccine ()Covid-19 Vaccine ()[facility]: 53-94-6327Eoemg-19 Vaccine ()Covid-19 Vaccine ()[facility]: 59-70-4449Ryzngwacp vaccinationUC [facility] Hospitaltart: comp foot exam completedDIABETIC FOOT EXAMUC West Chester Hospitaltart: 44-49-0637UT CONTROLLED (<130/80)BP CONTROLLED (<130/80)[facility]: 35-26-7885Bvevlyebep A1c/Hemoglobin.total in UlxrzBVZ2OKesvgchux ClinicStart: 29-70-0040JlpbktzubNorwalk Memorial Hospitaltart: 96-17-4805RqrisouqqNorwalk Memorial Hospitaltart: 03-26-1913Icdkd X-ray of left thumbXR finger LT thumbNorwalk Memorial Hospitaltart: 68-92-7220JA Thumb - left ViewsMartins Ferry Hospital Start: 14-73-8964PH CONTROLLED (<130/80)BP CONTROLLED (<130/80)[facility] Start: 72-10-5699Mizczsyfm B screeningURINE ALBUMIN:CREATININE RATIOUC [facility] Hospitaltart: 44-66-1871Xqpqxzbel B surface antibody levelLDL CHOLESTEROL [facility]: 07-37-1858RBTRQ CREATININESERUM CREATININEUC West Chester Hospitaltart: 05-54-2738DOHHW-19 VACCINE (7 - Pfizer series)COVID-19 VACCINE (7 - Pfizer series)[facility]: 65-06-6628NF CONTROLLED (<130/80)BP CONTROLLED (<130/80)[facility]: 97-24-2258GcozjyrscbeRYBXJAQEM [facility]: 08-21-2022 End: 73-53-3006Davribwvczs [Units/volume] in Serum or PlasmaTSH BLD Lab Routine Elevated TSH Well controlled type 2 diabetes mellitus with neurological manifest ations (HCC) Expected: 08/21/2022, Expires: 10/21/2022[facility] Work Phone: Comment on above:Expected: 08/21/2022, Expires: 10/21/2022Start: 08-21-2022 End: 59-67-9252Fdmqelxlm (T4) free [Mass/volume] in Serum or PlasmaT4 FREE/FREE THYROX Lab Routine Elevated TSH Well controlled type 2 diabetes mellitus with neurological manifestations (HCC) Expected: 08/21/2022, Expires: 10/21/2022 [facility] Work Phone: Comment on above:Expected: 08/21/2022, Expires: 10/21/2022Start: comp foot exam completedDIABETIC FOOT EXAMUC West Chester Hospitaltart: 97-80-1713QS CONTROLLED (<130/80)BP CONTROLLED (<130/80)[facility]: 05-20-2022 End: 55-19-8246TLAHLJN/CREAT RATIO RND URALBUMIN/CREAT RATIO RND UR Lab Routine 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athy (HCC) Expected: 05/20/2022, Expires: 05/20/2023[facility] Work Phone: Comment on above:Expected: 05/20/2022, Expires: 05/20/2023Start: 05-20-2022 End: 19-15-6197Pyxwerhgkvpfn metabolic 2000 panel - Serum or PlasmaCOMP METABOLIC PANEL Lab Routine 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athy (HCC) Expected: 05/20/2022, Expires: 05/20/2023[facility] Work Phone: Comment on above:Expected: 05/20/2022, Expires: 05/20/2023Start: 05-20-2022 End: 19-98-9576Dmctvktqsu A1c in BloodHGB A1C Lab Routine 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athy (HCC) Expected: 05/20/2022,Expires: 07/20/2022[facility] Work Phone: Comment on above:Expected: 05/20/2022, Expires: 07/20/2022Start: 05-20-2022 End: 98-85-6290Ehpua 1996 panel - Serum or PlasmaLIPID PANEL BASIC Lab Routine Mixed hyperlipidemia Expected: 05/20/2022, Expires: 05/20/2023[facility] Work Phone: Comment on above:Expected: 05/20/2022, Expires: 05/20/2023Start: 05-20-2022 End: 69-36-2421Kcxnuikimap [Units/volume] in Serum or PlasmaTSH BLD Lab Routine 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athy (HCC) Expected: 05/20/2022, Expires: 4CMer[facility] Work Phone: Comment on above:Expected: 05/20/2022, Expires: 05/20/2023Start: 11-34-0007Abylupzwep A1c/Hemoglobin.total in AigewONR0I [facility]: 26-60-7024Bnubfxez blood countHemoglobin/Hematocrit [facility]: 32-53-3256PQYOXAXHDI/HEMATOCRITHEMOGLOBIN/HEMATOCRIT [facility]: 89-35-3325Ihamsmnni B screeningURINE ALBUMIN:CREATININE RATIOU[facility]: 53-99-8585Gpqjydpjz B surface antibody levelLDL CHOLESTEROLUC [facility]: 96-08-3084IYE Vaccine (1 - 1-dose 75+ series) RSV Vaccine (1 - 1-dose 75+ series)[facility]: 12-94-3215OBEGQLW DIRECTIVE DISCUSSIONADVANCE DIRECTIVE DISCUSSIONUC [facility]: 01-29-2022 End: 84-53-8730Xqcrq metabolic 2000 panel - Serum or PlasmaBASIC METABOLIC PNL Lab Routine Orthostatic lightheadedness Expected: 01/29/2022, Expires: [address] [place] [address] Work Phone: Comment on above:Expected: 01/29/2022, Expires: 03/31/2022tart: 86-09-1490Hldfdbjqq vaccinationINFLUENZA (#1)[facility] Start: 11-13-2021 End: 07-80-9792Uwibi metabolic 2000 panel - Serum or PlasmaBASIC METABOLIC PNL Lab Routine Orthostatic lightheadedness Expected: 11/13/2021, [facility] Work Phone: Comment on above:Expected: 11/13/2021, Expires: 01/13/2022tart: 29-78-5513Salhhkgpir A1c/Hemoglobin.total in VedqiUBY9O [facility]: 10-22-2021 End: 28-70-9045Coqiq tocopherol [Mass/volume] in Serum or PlasmaVITAMIN E/TOCOPHEROL Lab Routine Resting tremor Expected: 10/22/2021, Expires: 12/22/2021[facility] Work Phone: Comment on above:Expected: 10/22/2021, Expires: 12/22/2021tart: 10-22-2021 End: 56-09-4709Hohbktdzgectq [Mass/volume] in Serum or PlasmaCERULOPLASMIN BLD Lab Routine Resting tremor Expected: 10/22/2021, Expires: 12/22/2021[facility] Work Phone: Comment on above:Expected: 10/22/2021, Expires: 12/22/2021tart: 10-22-2021 End: 16-44-9317Mdtmgkiux (Vitamin B12) [Mass/volume] in Serum or PlasmaVITAMIN B12 BLOOD Lab Routine Disturbance of skin sensation Expected: 10/22/2021, Expires: 12/22/2021[facility] Work Phone: Comment on above:Expected: 10/22/2021, Expires: 12/22/2021tart: 10-22-2021 End: 57-00-0646CVICVFJBTBNMNK SCREEN, SERUMIMMUNOFIXATION SCREEN, SERUM Lab Routine Disturbance of skin sensation Expected: 10/22/2021, Expires: 12/22/2021 [facility] Work Phone: Comment on above:Expected: 10/22/2021, Expires: 12/22/2021tart: 10-22-2021 End: 63-89-4287HIDJX/PURI,FREE,SERKAPPA/PURI,FREE,SER Lab Routine Disturbance of skin sensation Expected: 10/22/2021, Expires: 12/22/2021[facility] Work Phone: Comimwl on above:Expected: 10/22/2021, Expires: 12/22/2021tart: 10-22-2021 End: 43-57-9147Rkbbtdlxutwwco [Moles/volume] in Serum or PlasmaMETHYLMALONIC ACID Lab Routine Disturbance of skin sensation Expected: 10/22/2021, Expires: 12/22/2021[facility] Work Phone: Comment on above:Expected: 10/22/2021, Expires: 12/22/2021tart: 07-74-7182DvowjnimgjbMFEASLCBYRisrrysav ClinicStart: 05-03-2021 COVID-19 VACCINE (5 - Booster)COVID-19 VACCINE (5 - Booster)[facility] Start: 06-54-1924UWANDCW DIRECTIVE DISCUSSIONADVANCE DIRECTIVE DISCUSSION [facility]art: 97-39-2542Fqycpxgb screeningDilated Retinal ExamCleParkview Healthtart: 89-64-5004Yxahfmfwf C antibody, confirmatory testDILATED RETINAL EXAMUC West Chester Hospitaltart: 01-01-2014Medicare Annual Wellness VisitMedicare Annual Wellness VisitUC West Chester Hospitaltart: 82-82-8284LISLINIJ VACCINE (2 of 3) SHINGRIX VACCINE (2 of 3)[facility]: 46-73-9212ICQW DENSITYBONE DENSITYUC West [facility] Hospitaltart: 92-12-3634Ipel Density ScreeningBone Density ScreeningUC [facility] Hospitaltart: 38-14-5564GQQLYIKPK AGE 65 AND OVER WITH 5YR LOOKBACK (#1)PNEUMOVAX AGE 65 AND OVER WITH 5YR LOOKBACK (#1)[facility] Start: 91-79-0101Hkujgdwfz for osteoporosisBone Density ScreeningUC [facility] Hospitaltart: 01-22-0126Tzesemokj B Vaccine (1 of 3 - Risk 3-dose series) Hepatitis B Vaccine (1 of 3 - Risk 3-dose series)[facility]: 97-07-1077ELL Vaccine (1 - 1-dose 60+ series)RSV Vaccine (1 - 1-dose 60+ series) [facility]: 08-82-9497WBXGONOGX (FIT-DNA)COLOGUARD (FIT-DNA)[facility]art: 28-63-2783AsucnlvifpmOWVOLLEVNVJErlfpvwog ClinicStart: 1992 COLORECTAL CANCER SCREENINGCOLORECTAL CANCER SCREENINGCleParkview Healthtart: 83-61-9706GB COLONOGRAPHYCT COLONOGRAPHYCleParkview Healthtart: 05-84-3076NFIPC OCCULT BLOODFECAL OCCULT BLOODUC West Chester Hospitaltart: 77-75-1912QPPPTEMTPIYCI SIGMOIDOSCOPYUC [facility] Hospitaltart: 02-48-1489Neewz microalbumin profile [facility]art: 60-80-4044CDBBYU PCP TEAM CHRONIC DISEASE VISITANNUAL PCP TEAM CHRONIC DISEASE VISITUC West Chester Hospitaltart: 30-41-6385NKXZBBZJU C SCREENINGHEPATITIS C SCREENINGUC [facility] Hospitaltart: 81-79-1745Fstrufevt C screeningHepatitis C ScreeningUC [facility] Hospitaltart: 42-12-9166Phlkxkscxexz Vaccine: 65+ (1 - PCV)Pneumococcal Vaccine: 65+ (1 - PCV)[facility]: 08-81-4337YPZAWVOBKDNG: 65+ (1 - PCV)PNEUMOCOCCAL: 65+ (1 - PCV)[facility] Start: 83-26-8594Vzqkkyenn for malignant neoplasm of colonMercy [facility] Ambulatory bp mntr w/sw 24 hr+ rec scan miguel i&rAMBULATORY BP MONITORING Cardiology Routine Labile blood pressure Ordered: 07/26/2023[facility] Work Phone: Comment on above:Ordered: 07/26/2023ardiovascular function eval w/tilt table w/mntrTILT TABLE EVALUATION Cardiology Routine Labile blood pressure Near syncope Ordered: 06/13/2023[facility] Work Phone: Comment on above:Ordered: 06/13/2023omprehensive metabolic 2000 panel - Serum or PlasmaMartins Ferry Hospital End: 24-52-5392NVV COMPLETEECG COMPLETE ECG Routine Dizziness 1 Occurrences starting 11/12/[address] [place] [address] Work Phone: Comment on above:1 Occurrences starting 11/12/2021 until 11/12/2022 End: 47-19-1799EES COMPLETEECG COMPLETE ECG Routine Dizziness 1 Occurrences starting 02/15/[address] [place] [address] Work Phone: Comment on above:1 Occurrences starting 02/15/2022 until 02/15/2023ECG COMPLETEECG COMPLETE ECG Routine Orthostatic lightheadedness POTS (postural orthostatic tachycardia syndrome) Palpitations Dizziness Mixed hyperlipidemia 1 Occurrences starting 08/03/2023[facility] Work Phone: Comment on above:1 Occurrences starting 08/03/2023 End: 46-82-9718SkvcejrldpncsvjtYGVD Cardiology Routine Labile blood pressure Near syncope 1 Occurrences starting 06/13/2023 until 06/12/2024[facility] Work Phone: Comment on above:1 Occurrences starting 06/13/2023 until 06/12/2024 End: 66-71-3580XzlbsabktqcvcejgYGTC Cardiology Routine Orthostatic lightheadedness POTS (postural orthostatic tachycardia syndrome) Palpitations Dizziness Mixed hyperlipidemia 1 Occurrences starting 08/03/2023 until 08/02/2024[facility] Occurrences starting 08/03/2023 until 08/02/2024 End: 44-80-5986MWX(NEURO/NI)EMG(NEURO/NI) EMG Routine Left leg weakness Disturbance of skin sensation 1 Occurrences starting 07/26/2023 until 07/25/2024 [facility] Work Phone: Comment on above:1 Occurrences starting 07/26/2023 until 07/25/2024Glucose measurement estimated from glycated hemoglobinMartins Ferry HospitalGlucose measurement estimated from glycated hemoglobin [facility] Ferry HospitalHemoglobin A1c/Hemoglobin.total in [facility] CenterHemoglobin A1c/Hemoglobin.total in Blood [facility] End: 23-45-0211IG Brain WO and W contrast IVMRI BRAIN WO/W IVCON Radiology Routine Labile blood pressure Abnormal saccadic eye movement Pursuitmovement deficiency Other symptoms and signs involving the nervous system 1 Occurrences starting 07/26/[address] [place] [address] Work Phone: Comuruh on above:1 Occurrences starting 07/26/2023 until 08/24/2024 End: 45-93-9503RW Brain WO and W contrast IVMRI BRAIN WO/W IVCON Radiology Routine Labile blood pressure Abnormal saccadic eye movement Pursuitmovement deficiency Other symptoms and signs involving the nervous system 1 Occurrences starting 11/02/[address] [place] [address] Work Phone: Comment on above:1 Occurrences starting 11/02/2023 until 12/01/2024 End: 47-82-6845IA Cervical spine WO contrastMRI CERVICAL SPINE WO IVCON Radiology Routine Spinal stenosis of cervical region Bilateral arm weakness 1 Occurrences starting 11/29/2023 until 12/28/2024[facility] ClinicComment on above:1 Occurrences starting 11/29/2023 until 12/28/2024 End: 80-52-9736ZS Lumbar spine WO contrastMRI LUMBAR SPINE WO IVCON Radiology Routine Spinal stenosis of lumbar region, unspecified whether neurogenic claudication present Lumbosacral spondylosis with radiculopathy 1 Occurrences starting 11/29/2023 until 12/28/2024leveland ClinicComment on above:1 Occurrences starting 11/29/2023 until 12/28/2024Patient EducationWound Care ED Animal Bites [facility]Prem[facility] Work Phone: Patient referralPremier Health Upper Valley [facility] Work Phone: SKIN BIOPSY FOR NEUROPATHY/CNLSKIN BIOPSY FOR NEUROPATHY/CNL Procedures Routine Neurogenic orthostatic hypotension (HCC) Ordered:12/15/2023[facility] Work Phone: Comment on above:Ordered: 12/15/2023SPINE INTERVENTION PROCEDURESPINE INTERVENTION PROCEDURE Procedures Routine Spinal stenosis of lumbar region, unspecified whether neurogenic claudication present Lumbosacral spondylosis with radiculopathy Ordered: 01/16/2024[facility] Work Phone: Comment on above:Ordered: 01/16/2024SPINE INTERVENTION PROCEDURESPINE INTERVENTION PROCEDURE Procedures Routine Lumbosacral spondylosis with radiculopathy Spinal stenosis of lumbar region, unspecified whether neurogenic claudication present Ordered: 07/12/2024[facility] Work Phone: Comment on above:Ordered: 07/12/2024[facility] INTERVENTION PROCEDURESPINE INTERVENTION PROCEDURE Procedures Routine Trochanteric bursitis of right hip Lumbosacral spondylosis with radiculopathy Scoliosis, unspecified scoliosis type, unspecified spinal region Lumbosacral stenosis Ordered: [address] [place] [address] Work Phone: Comment on above:Ordered: 09/11/2024SPINE INTERVENTION PROCEDURESPINE INTERVENTION PROCEDURE Procedures Routine Spinal stenosis of lumbar region, unspecified whether neurogenic claudication present Ordered: [address] [place] [address] Work Phone: comment on above:Ordered: 09/27/2024Thyroglobulin Ab [Units/volume] in Serum or [facility] Thyroperoxidase Ab [Units/volume] in Serum or [facility] End: 88-37-6317EA Lumbar spine 3 ViewsXR LUMBAR GENERAL 3V AP/LAT/L5-S1 Radiology Routine Fall, initial encounter 1 Occurrences starting 03/01/[address] [place] [address] Work Phone: Comment on above:1 Occurrences starting 03/01/2024 until 03/31/2025 End: 84-29-8028KB Lumbar spine Views W flexion and W extensionXR LUMBAR MOTION 4V AP/LAT/ FLEX/EXT Radiology Routine Spinal stenosis of lumbar region, unspecified whether neurogenic claudication present Lumbosacral spondylosis with radiculopathy 1 Occurrences starting 11/29/[address] [place] [address] Work Phone: Comment on above:1 Occurrences starting 11/29/2023 until 12/28/2024XR Lumbar spine Views W flexion and W extensionXR LUMBAR MOTION 4V AP/LAT/ FLEX/EXT Radiology Routine Spinal stenosis of lumbar region, unspecified whether neurogenic claudication present Lumbosacral spondylosis with radiculopathy 11/29/2023 2:28PM [facility] End: 38-81-7887QW Pelvis and Hip - right AP and Lateral frogXR HIP GENERAL 3V PELV/AP/LAT RIGHT Radiology Routine Fall, initial encounter 1 Occurrences starting 03/01/[address] [place], [place] [address]Comment on above:1 Occurrences starting 03/01/[address] [place] [address] Immunizations Immunization DateImmunizationNotesCare UuzbklgfFeggsstt28-34-5893MVMKV-48 (PFIZER) 12Y and olderMartins Ferry Hospital09-20-2024 influenza virus vaccine, unspecified formulationGregSenior Moments [facility]09-20-2024influenza, high dose seasonal, preservative-freeMartins Ferry Hospital03-08-2024tetanus toxoid, reduced diphtheria toxoid, and acellular pertussis vaccine, adsorbedDO Erich Gillis Work Phone: [facility]01-02-2024Fluzone QIV High-Dose 65YR+[facility]01-02-2024influenza virus vaccine, unspecified formulationGregSenior Moments [facility]03-17-2023COVID-19 Pfizer (bivalent)Erich Gillis Other [facility] 859522-05-2022influenza, seasonal, injectableBrett Carlin Other [facility]12-05-2022Fluzone QIV High-Dose 65YR+[facility]12-05-2022pneumococcal polysaccharide vaccine, 23 valentBredrew Gillis Other [facility] 859522-05-2022influenza virus vaccine, unspecified formulationSjaida Penaloza MD Work Phone: [facility] 859521-28-2021COVID-19 mRNA, Comirnaty (Pfizer)DO Erich Gillis Work Phone: [facility]10-28-2021SARS-CoV-2 (COVID-19) mRNA BNT-162b2 vaxMapori [facility] 859520-16-2021COVID-19 vaccine, age 12+ yr (PFIZER-BIONTECH - PURPLE TOP) Carl Norwood DO Work Phone: [facility] CenterDgxxha25-92-8641Zidrdwv QIV High-Dose 65YR+ [facility]08-30-2021influenza virus vaccine, unspecified formulationGregSenior Moments [facility]08-30-2021zoster vaccine recombinantGregory General Specific [facility]y06-10-2021zoster vaccine recombinantColleen Calvey Other [facility]y03-02-2021COVID-19 Vaccine Pfizer - Documentation Purposes OnlyColleen Calvey Other [facility] CenterComment on above:Result Comment: 2022-01-12: [id number]-36 Vaccine Pfizer - Documentation Purposes Only Merary Calvey Other [facility] HospitalComment on above: Result Comment: 2022-01-12: [id number]-80 vaccine, age 12+ yr (PFIZER- BIONTECH - PURPLE TOP)Carl Cuco DO Work Phone: [facility] CenterInpbcx75-95-9715qiaqrndew virus vaccine, unspecified formulationGregRanovus [facility]y08-23-2020influenza, injectable, quadrivalent, preservative free [facility]08-23-2020influenza, seasonal, injectable Merary Calvey Other [facility]08-23-2020 pneumococcal conjugate vaccine, 13 valentColleen Calvey Other [facility]y10-26-2019influenza, seasonal, injectableColleen Calvey Other [facility]10-26-2019influenza virus vaccine, unspecified formulationGregory General Specific [facility] 859520-26-2019Seasonal trivalent influenza vaccine, adjuvanted, preservative freeRobert [employer] DO Work Phone: [facility] CenterYchsne35-82-1543uaemwwrwi virus vaccine, unspecified formulationGregory General Specific [facility]y08-23-2018Seasonal trivalent influenza vaccine, adjuvanted, preservative freeRobert [employer] DO Work Phone: [facility] CenterHyhloo79-69-9532boynfxvbf, seasonal, injectableColleen Calvey Other [facility]12-06-2016influenza, injectable, quadrivalent, preservative freeColleen Calvey Other [facility]12-20-2014influenza virus vaccine, unspecified formulationGregory [employer] [facility]y12-20-2014influenza, high dose seasonal, preservative-freeColleen Calvey Other [facility] CenterWpcucb17-48-7742picbmy vaccine, liveColleen Calvey Other [facility] Payers DatePayer CategoryPayerPolicy [id number]-iia [id number] MEDICARE A AND B [id number] 2013-[facility] [phone] [facility] [place] [address] [id number] 2014Medicare [id number] Health InsuranceMUTOUR LADY [facility] .[id number]416.52504-51-5595DmnxpivVHPUFL [facility] MEDICARE SUPPLEMENT [id number] 2013-Present [phone] [place] [address] [id number] 1.2.840.717171.1.13.159.2.7.3.112896.28614-58-1805Qxvajgj 1.2.840.492418.1.13.159.2.7.3.263621.315 [id number] 2..[id number] 2..2.036343.9646-02-1948 [id number] 2..1.495573.3.579.2.492124-99-2105Gtltcsp8529479 2.0.1.204544.3.579.2.078523-85-0729Nxtdoeh3024186 2.0.1.789186.3.579.2.751613-88-5133Nrcyyeq5467168 2.160.1.325411.3.579.2.982426-05-8818Zdayyuf8424476 2.0.1.475827.3.579.2.863538-71-8375Myljljf8788756 2.0.1.919937.3.579.2.735249-84-8913Fvyydps68624642 2.0.1.768957.3.579.2.89763-88-5367Iocnwmw42797728 2.0.1.542663.3.579.2.36007-16-5457Clfvjvc72368283 2..1.919978.3.579.2.04053-74-8199Wthzibb57200061 2..1.509638.3.579.2.71957-62-6879Zzbkqaq83949942 2..1.932954.3.579.2.21481-21-2534Xexdvoc89176361 2..1.644247.3.579.2.03934-86-3076Mfucrll13514966 2..1.147862.3.579.2.68426-42-4322Nyfjfar64405499 2..1.249257.3.579.2.36769-31-4903Mgouwsn81573236 2..1.619232.3.579.2.15718-05-1170Xkfxrpk09907465 2.0.1.281800.3.579.2.57488-51-3848Sgbsckp47101900 2.0.1.499449.3.579.2.36665-81-2071Wfixkra11687242 2.16.840.1.343668.3.579.2.71615-61-4091Jdraulw882821535 2.16.840.1.583903.3.579.2.44776-85-8767Oagryav66079276 2.16.840.1.434932.3.579.2.34745-75-5713Brhojbd66983909 2.16.840.1.739534.3.579.2.82289-33-5414Qzbieqo45313231 2.16.840.1.993645.3.579.2.40797-02-5356Woxbthj68397886 2.16.840.1.017690.3.579.2.810Oeqsdxe437816207 2103t911-87th-1h03-6d49-0j10193m34d9Cywiyqs39307800 2.16.840.1.615544.3.579.2.475Yjtntwt39989336 2.16.840.1.119926.3.579.2.531 Ioieplw81659909 2.16.840.1.066699.3.579.2.814Xzxhvst90694930 2.16.840.1.562312.3.579.2.531 Social History DateTypeDetailFacilityStart: 03-27-2020 End: 32-04-4585Wkafzlf smoking statusNever smoked tobacco (finding)[facility] [employer] Other Start: 08-03-2022 End: 49-15-3377Mnr Assigned At [facility] [employer] Other Start: 05-21-2021 End: 81-67-9033Dpcwmih intakeEx-drinker (finding)[facility]art: 82-55-8698Dzv [facility] At [facility]: 09-06-2021 End: 52-03-2873Jmyuqmsd to SARS-CoV-2 (event)Unable to assessMer[facility] Health St. [facility] Start: 10-12-2021 End: 85-37-9183Cmhnehdo to SARS-CoV-2 (event)Not sureUC [facility] Hospitaltart: 06-03-2011 End: 10-01-9761Fisdtcu use and exposureSmokeless tobacco non-userUC [facility] Hospitaltart: 08-03-2022 End: 91-06-9099Cjpguff of Social functionMercy Health St. Vincent Medical CenterAdult Depression Screening Kzhsldtixs9Duqldxjdg ClinicStart: 85-96-8085Uwldzt identityIdentifies as female gender (finding)[facility]: 44-78-3176Ylvhiy orientation Heterosexual (finding)[facility]: 40-60-6257Xnzbiav intakeLifetime non-drinker (finding)[facility] HealthcareStart: 04-89-9706Yzitrxa Commentcaffeine 1-2 cups/dayCEDAR CITY HOSPITAL HealthcareStart: 26-88-3977Ycf Assigned At BirthNot on fileCEDAR CITY HOSPITAL HealthcareStart: 07-23-2009 End: 09-30-5171YlaXolkxg (finding)[facility] Hospitalexual OrientationExec[facility] Medical Equipment Procedure CodeEquipment CodeEquipment Original TextEquipment IdentifierDates TrapeziectomyOrthopaedic bone staple, non-adjustable, sterile ()[id number] FDAStart: 20-24-2456Jasenuqdpdpyv Orthopaedic bone staple, non-adjustable, sterile ()[id number] FDAStart: 67-88-0385Ipjjkfpfimnoe Orthopaedic bone screw, non-bioabsorbable, non-sterile()[id number] [facility] Start: 28-75-8926Jblzcaqop 32mm Tritanium 10mm Patellar Asymmetric - [id number]: 74-95-4589Gthtmz Triathlon 4 X3 9mm Tibial Condylar Stabilized Knee - [id number]_nbxPadrf: 37-03-9685Tufllrsua Triathalon 4 Tritanium Tibial Coated Sterile Knee - [id number]_swvRxmoo: 78-15-9057Exwzvowln Triathlon 4 Pa Femoral Cruciate Retain Bead Knee Left - [id number]_[id number] Start: 17-57-02481010808868, [id number], [id number], [id number], [id number], [id number], [id number], [id number], [id number], [id number]: 04-13-2019 End: 11-00-8000Pltghdz on above:To inject weeklyUse as instructed to check blood glucose dailyUse as instructed to check blood sugar dailyUse as instructed to check blood glucose daily. Dx: E11.49 not on insulinUse as instructed to check blood sugar daily. Dx: E11.49 not on insulin Goals DatePatient GoalDesired Activity/StatePersonal health goal Functional Status ObffSyrtemtogmIrtjmoRcujmiio15-45-8402Hnkrltcrnf StatusN/AExec[facility]rology of [facility] Institutey10-28-2024Functional StatusN/A[facility]07-12-2024Functional StatusN/A [facility]06-10-2024Functional StatusN/[facility]05-07-2024Functional StatusN/[facility] 79-85-5243Bfsfhqdjls StatusN/A[facility]03-15-2024Functional StatusN/[facility]02-28-2024 Functional StatusN/[facility]02-09-2024Functional StatusN/A [facility]01-10-2024Functional StatusN/[facility]11-27-2023Functional StatusN/[facility] 23-58-5425Sbrwovgcpr StatusN/[facility]08-29-2023Functional StatusN/[facility]07-31-2023Functional StatusN/[facility]07-18-2023Functional StatusN/[facility] 71-82-9752Wrfqkspurl StatusN/[facility]10-04-2022Functional StatusN/AExec[facility] Ltcpifjq41-22-4764 Functional StatusN/[facility]04-15-2015Are you deaf, or do you have serious difficulty hearingNoMercy Health St. Vincent Medical CenterRqlofe75-69-0141Ydi you blind, or do you have serious difficulty seeing, even when wearing glassesNoMercy Health St. Vincent Medical CenterNnvxwq44-85-9523Mk you have serious difficulty walking or climbing stairsOhiohealth Berger Hospital04-15-2015Do you have difficulty dressing or bathingBlanchard Valley Health System Bluffton HospitalHyzbkt47-50-3162Imuauln of a physical, mental, or emotional condition, do you have difficulty doing errands alone such as visiting a physician's office or shoppingBlanchard Valley Health System [facility] Hospital Mental Status WnuhVkzagjdufwRxeekuMykkicey25-11-0428Stpjenn of a physical, mental, or emotional condition, do you have serious difficulty concentrating, remembering, or making decisionsBlanchard Valley Health System [facility] Hospital Clinical Notes 12-15-2004 to 02-12-2025 Note Date & OkugEujkDbcqztwc53-69-7507 Hospital Discharge instructions Patient Education 02/12/2025 09:36:54 [...] including vitamins, herbs, eye drops, creams, and xnob-tls-uehsuqo medicines. Any problems you or family members [...] unless your provider tells you to. Taking ftpi-xxi-ixbnhmn medicines, vitamins, herbs, and supplements. General instructions [...] Follow these instructions at home: Medicines Take krnd-rwd-opdbnnz and prescription medicines only as told by [...] actions to prevent or treat constipation: ?Take kmhn-dcp-ufjlhqj or prescription medicines. ?Eat foods that are [...] provider. Document Revised: 01/20/2023 Document Reviewed: 01/20/2023 ElseYOOSE Patient Education 2023 [employer]at. Follow Up Care 08/21/2024 10:23:37 With:HIRO BRICENO, Ryan Holland, URL Address: [address] [address]- When: Unknown [facility] [place] [id number] NotePatient Education Urology Urethral Dilation Urethral dilation [...] including vitamins, herbs, eye drops, creams, and smto-tny-xydwgip medicines. ??? Any problems you or family [...] your provider tells you to. ??? Taking mgwy-rox-dwjkngo medicines, vitamins, herbs, and supplements. General instructions [...] these instructions at home: Medicines ??? Take yfxp-ovm-xndpqer and prescription medicines only as told by [...] to prevent or treat constipation: ? Take vcga-uxt-vqvljsx or prescription medicines. ? Eat foods that [...] a soft tube (catheter) (more content not included)...[facility]10-10-2025 NoteHNO ID: [id number] Author: MILI HANDY LPN Service: ? Author Type: Licensed Nurse Type: Progress Notes Filed: 01/18/2025 12:40 Note Text: Patient consents to the use of AI technology during visit.[facility]10-10-2025 NoteHNO ID: [id number] Author: KARL COOK APRN.JUAN ANTONIO Service: ? Author Type: Nurse Practitioner Type: Progress Notes Filed: 01/18/2025 12:40 Note Text: Endocrinology Follow-up Recording using ambient AI software for draft documentation of the visit was discussed with the patient/authorized outside industrial sales representative; all questions welcomed and answered. Patient/authorized outside industrial sales representative agreed to proceed History of Present [...] mouth once daily. Mult (more content not included)...[facility]10-01-2025 NoteHNO ID: [id number] Author: FARZANA MORROW RD Service: ? Author Type: Registered Dietitian Type: Progress Notes Filed: 01/09/2025 14:49 Note Text: [facility] Nutritional Assessment Patient states reason [...] chair-exercises with small du (more content not included)...[facility]10-01-2025 NoteEducation (ENDAV3) HOLA DOUGLAS ([id number]) 1945 F Date Time Provider Department 01/09/25 [...] daily. Encounter Status:Closed by FARZANA MORROW on 01/09/25[facility] 11-13-2024 Telephone encounter Note* Telephone Encounter - [...] drawn noah. She can be reached at [phone]. Mone Parekh Advertising Director Endocrinology & Metabolism [facility] F20 & X20 [facility]08-05-2025 Miscellaneous Notes* Telephone Encounter - Mone Parekh [...] drawn noah. She can be reached at [phone]. Mone Parekh Advertising Director II Endocrinology & Metabolism [place] [facility] F20 & X20 documented in this encounterMer[facility]07-[facility]-2025 Telephone encounter Note * Telephone Encounter - Jefry Raphael RN - 10/26/2024 12:04 PM EDT Florinef 0.1 mg tablet Last OV: VV on 08/27/24 Last Refill: 06/15/24 F/U OV: 03/05/25 Appropriate for refill. Routed to AM for review. Jefry Raphael RN, BSN [facility]07-18-2025 Miscellaneous Notes* Telephone Encounter - Jefry Raphael RN - 10/26/2024 12:04 PM EDT Florinef 0.1 mg tablet Last OV: VV on 08/27/24 Last Refill: 06/15/24 F/U OV: 03/05/25 Appropriate for refill. Routed to AM for review. Jefry Raphael RN, BSN documented in this encounterMer[facility]07-09-2025 Telephone encounter Note * Telephone Encounter - Dori Padilla PA-C - 10/17/2024 3:07 PM EDT Looks good thank you. If new dizziness or new or worsening symptoms ER. Dori Jhaveri PA-C [facility] Work Phone: [phone] Miscellaneous Notes* Telephone Encounter - Dori Padilla [...] pharmacy. Patient says she will check [facility]. RN also suggested searching [facility]. Last, RN explained plan to send patientinstructions for an orthostatic log so that her provider has some objective data to help guide recom mendations. Patient verbalized understanding and thanked RN for the call. GENESIS Vitale, RN, SCRN documented in this encounterMer[facility] Health St. [facility]07-09-2025 Telephone encounter Note * Telephone Encounter - [...] pharmacy. Patient says she will check [facility]. RN also suggested searching [facility]. Last, RN explained plan to send patientinstructions for an orthostatic log so that her provider has some objective data to help guide recom mendations. Patient verbalized understanding and thanked RN for the call. GENESIS Vitale, RN, SCRN [facility]07-03-2025 Telephone encounter Note* Telephone Encounter - Sofiya [...] appointment 4-6 weeks post procedure by calling [phone] Patient does not have any questions or concerns. Patient will call office with any questions or concerns. [facility]07-03-2025 Miscellaneous Notes* Telephone Encounter - Sofiya Haynes [...] appointment 4-6 weeks post procedure by calling [phone] Patient does not have any questions or concerns. Patient will call office with any questions or concerns. documented in this encounterMer[facility] Health St. [facility]06-19-2025 History of Present illness Narrative* Buck Day [...] DATE OF EXAM: Dec 04 2023 11:18AM [facility] 0297 - MRI CERVICAL SPINE WO IVCON [...] TIME: 11:33 AM PAGER: documented in this encounterMercy Health St. [facility]06-19-2025 NoteHNO ID: [id number] Author: BUCK DAY MD Service: ? Author [...] Disease, Without Long-Term Current Use of Insulin ([facility]) Mixed Hyperlipidemia Bursitis of Hip Vitamin D [...] BR/WA SPX Laparoscopy PAST (more content not included)...[facility]06-18-2025 Telephone encounter Note* Telephone Encounter - Sofiya Haynes LPN - 09/26/2024 10:51 AM EDT Phoned patient and spoke with patient to confirm appointment for Hola Douglas for spine procedureon 10/09/24. Patient notified that [facility] will call patient the night before with the time to arrive for injection. Patient verbalized understanding of the following: -Provided education on spine procedure and answered questions related to spine injection procedure. -Financial Operations Consultant is needed to drive patient home: Yes, and patient aware hearse driver will need to stay for procedure [...] take morning diabetes medication. Patient given number [phone], spine injections schedulers, if there is any [...] UNDERSTANDING OF PRE AND POST INJECTION INSTRUCTIONS [facility]06-18-2025 Miscellaneous Notes* Telephone Encounter - Sofiya Haynes LPN - 09/26/2024 10:51 AM EDT Phoned patient and spoke with patient to confirm appointment for Hola Douglas for spine procedureon 10/09/24. Patient notified that [facility] will call patient the night before with the time to arrive for injection. Patient verbalized understanding of the following: -Provided education on spine procedure and answered questions related to spine injection procedure. -Financial Operations Consultant is needed to drive patient home: Yes, and patient aware hearse driver will need to stay for procedure [...] take morning diabetes medication. Patient given number [phone], spine injections schedulers, if there is any [...] AND POST INJECTION INSTRUCTIONS documented in this encounterMer[facility] St. [facility]06-17-2025 Telephone encounter Note * Telephone Encounter - Sofiya Haynes LPN - 09/25/2024 12:15 PM EDT [employer] message sent to patient with Procedure Instructions. [facility]06-17-2025 Miscellaneous Notes* Telephone Encounter - Sofiya Haynes LPN - 09/25/2024 12:15 PM EDT [employer] message sent to patient with Procedure Instructions. documented in this encounterMer[facility] Health St. [facility]06-03-2025 Instructions* Patient Instructions* Steve Wagoner MD - 09/11/2024 10:10 AM EDT Please update office 2 weeks after injection with update. Steve Wagoner MD documented in this encounterMercy Health St. [facility]06-03-2025 NoteHNO ID: [id number] Author: STEVE WAGONER MD Service: ? Author Type: Physician Type: Progress Notes Filed: 09/11/2024 10:21 Note Text: [facility] Established Visit CC: low [...] outlined above and verbalized understanding. Steve Wagoner, [facility]06-03-2025 History of Present illness Narrative* Steve Wagoner MD - 09/11/2024 9:51 AM EDT [facility] Established Visit CC: low [...] understanding. Steve Wagoner MD documented in this encounterMercy Health St. [facility]05-27-2025 NoteHNO ID: [id number] Author: ?, ?, ? Service: ? Author Type: ? Type: Progress Notes Filed: 09/04/2024 15:59 Note Text: POPULATION HEALTH NAVIGATION OUTREACH [facility] Support: Called pt to schedule an appt [...] Signature: Marianne Norton September 04, 2024 3:58 [facility]05-27-2025 History of Present illness Narrative* Marianne Norton - 09/04/2024 3:58 PM EDT POPULATION HEALTH NAVIGATION OUTREACH [facility] Support: Called pt to schedule an appt [...] 04, 2024 3:58 PM documented in this encounterMer[facility] Health St. [facility]05-27-2025 NotePatient Outreach (NETNAV) HOLA DOUGLAS ([id number]) 1945 F Date Time Provider Department 09/04/24 NO PCP (MANDO) DANIEL During your visit today, we recorded the following information about you: Marianne Norton 09/04/2024 3:59 PM Signed POPULATION HEALTH NAVIGATION OUTREACH Action/[facility] [place] Support: Called pt to schedule an appt [...] 08/21/2024 Encounter Status:Closed by MARIANNE NORTON on 09/04/24[facility] 08-29-2024 NoteHNO ID: [id number] Author: DA KING MD Service: ? Author Type: Physician Type: Progress Notes Filed: 08/29/2024 18:26 Note Text: [facility] [place] Ingrid Cotton Department of Cardiovascular Medicine SECTION OF CARDIOVASCULAR IMAGING OUTPATIENT VISIT DATE 08/29/2024 OUTPATIENT VISIT TYPE ESTABLISHED PRIMARY CARE PHYSICIAN: Erich Gillis [address] [address] CHIEF COMPLAINT: CV health management visit. HISTORY [...] Negative for: Heat o (more content not included)...[facility]05-19-2025 Instructions* Patient Instructions* Dori Padilla PA-C - [...] obtained over the counter or from a nutraceutical/[employer] store. The beneficial effects of this medication may be perceived after a couple months of consistent daily dosing. documented in this encounterMercy Health St. [facility]05-19-2025 History of Present illness Narrative* Dori Padilla PA-C - 08/27/2024 12:30 PM EDT Images from the original note were not included. [facility] Follow-Up VIRTUAL VISIT This is a virtual visit using [employer] Zoom Video Visit. It required patient- provider interaction for the medical decision making as documented below. I have communicated my name and active licensure. The patient's identity and physical location wereverified at the time of this visit. Either the patient or their legal outside industrial sales representative has been informed of the risks [...] SBP reduction of 21 mmHg both at tzadyr06 of tiltm at which time testing was [...] Cardiology 12/2023: Supportive therapies, increasing florinef Neurological Shinto 03/2024: no evidence of parkinsonism, schdeuled for [...] the progression of neuropathy; provided information for zqaw-byd-ucfugmi purchase in after visit summary. - Referral [...] which included preparing to see the patient, kfrk-en-ruee patient care, completing clinical documentation, obtaining and/or reviewing separately obtained history, performing a medically appropriate examination, counseling and educating the pat ient/family/caregiver, and ordering medications, tests, or procedures. Dori Padilla PA-C Neuromuscular Medicine [address] [place]. [address] Appointment: [phone] During our virtual visit encounter we discussed [...] to bright light?: Moderate documented in this encounterMercy Health St. [facility]05-19-2025 NoteHNO ID: [id number] Author: DORI PADILLA PA-C Service: ? Author Type: Physician Polygraph Technician Type: Progress Notes Filed: 08/27/2024 15:23 Note Text: [facility] Follow-Up VIRTUAL VISIT This is a virtual visit using TRAN[employer]SLom Video Visit. It required patient-provider interaction for the medical decision making as documented below. I have communicated my name and active licensure. The patient's identity and physical location were verified at the time of this visit. Either the patient or their legal outside industrial sales representative has been informed of the risks [...] Cardiology 12/2023: Supportive therapies, increasing florinef Neurological Shinto 03/2024: no evidence of parkinsonism, schdeuled for [...] 0.1 mg - taking (more content not included)...[facility]2025 Instructions* Patient Instructions* Lorraine Oneill MD - 08/21/2024 3:52 PM EDT Increase Mounjaro to 10 mg daily. For constipation: Consider Fibercon and Miralax (as a combination therapy) Follow with your primary care provider for other possible options. Discuss with your primary care physician the use of Cymbalata for your foot pain (it could be takenalong with Lyrica if needed). documented in this encounterMercy [facility]. [facility]2025 NoteHNO ID: [id number] Author: LORRAINE ONEILL MD Service: ? Author [...] - Glucose Monitoring Test Supplies Blood-Glucose Sensor (HotPads G7 SENSOR) nimesh Change sensor every 10 [...] weekly Medical Supplies and DME - Insulin [employer]-Syringes and Admin Supplies LABS Creatinine (mg/dL) Date Value 07/23/2024 1.06 2021 1.08 Hemoglobin A1C (%) Date Value 07/23/2024 6.4 2021 6.7 Hemoglobin A1C (POCT) (%) Date Value 01/19/2024 6.8 Albumin, U (more content not included)...[facility]2025 History of Present illness Narrative* Lorraine Oneill [...] - Glucose Monitoring Test Supplies Blood-Glucose Sensor (HotPads G7 SENSOR) nimesh Change sensor every 10 [...] weekly Medical Supplies and DME - Insulin [employer]-Syringes and Admin Supplies LABS Creatinine (mg/dL) Date [...] Additional BP Medication Information: On treatment with [place]-f by another provider. Weight Status: Overweight Complications: [...] which included preparing to see the patient, vdgw-yx-ygme patient care, completing clinical documentation, obtaining and/or reviewing separately obtained history, performing a medically appropriate examination, counseling and educating the pat ient/family/caregiver, and ordering medications, tests, or procedures. SIGNATURE Lorraine Oneill MD August 21, 2024 [address]. [facility]2025 Hospital Discharge instructions Patient Education 08/21/2024 10:05:35 [...] including vitamins, herbs, eye drops, creams, and krmo-wfh-raelnbi medicines. Any problems you or family members [...] unless your provider tells you to. Taking avrf-nke-hjnrzxk medicines, vitamins, herbs, and supplements. General instructions [...] Follow these instructions at home: Medicines Take nlau-wuq-izkciai and prescription medicines only as told by [...] actions to prevent or treat constipation: ?Take bfeu-ktg-wdxljqn or prescription medicines. ?Eat foods that are [...] Document Reviewed: 01/20/2023 Elsevier Patient Education 2023 [employer]icat. Follow Up Care 08/09/2024 12:40:26 With:HIRO BRICENO, Ryan Holland, URL Address: Kala ARNOLD [address] [place] [address]- When: Unknown [facility] 2025 NotePatient Education Urology Urethral [...] including vitamins, herbs, eye drops, creams, and nyol-klf-egigfei medicines. ??? Any problems you or family [...] your provider tells you to. ??? Taking fzzb-plu-evqtsvc medicines, vitamins, herbs, and supplements. General instructions [...] these instructions at home: Medicines ??? Take gwtn-sdr-hkkpxnf and prescription medicines only as told by [...] to prevent or treat constipation: ? Take ihth-rbt-fayubge or prescription medicines. ? Eat foods that [...] a soft tube (catheter) (more content not included)...[facility]05-08-2025 Telephone encounter Note* Telephone Encounter - [...] call office with any questions or concerns. [facility]05-08-2025 Miscellaneous Notes* Telephone Encounter - Sofiya Haynes [...] any questions or concerns. documented in this encounterMercy Health St. [facility]04-22-2025 Telephone encounter Note * Telephone Encounter - Sofiya Haynes LPN - 07/31/2024 11:58 AM EDT [employer] message sent to patient with Procedure Instructions. [facility]04-22-2025 Miscellaneous Notes* Telephone Encounter - Sofiya Haynes LPN - 07/31/2024 11:58 AM EDT [employer] message sent to patient with Procedure Instructions. documented in this encounterMercy Health St. [facility]04-08-2025 Telephone encounter Note * Telephone Encounter - Vijaya Borrego RN - 07/17/2024 8:44 AM EDT Please see patient's message and advise. AVE: 06/25/2024 Next visit: 08/21/2024 Thank you! Maggy Borrego RN [facility]04-08-2025 Miscellaneous Notes* Telephone Encounter - Vijaya Borrego RN - 07/17/2024 8:44 AM EDT Please see patient's message and advise. AVE: 06/25/2024 Next visit: 08/21/2024 Thank you! Maggy Borrego RN documented in this encounterMer[facility] Health St. [facility]04-04-2025 Telephone encounter Note * Telephone Encounter - Mili Handy LPN - 07/13/2024 2:19 PM EDT Continuous glucose monitoring supplies order form received from [employer]. Form placed in Dr. Gonzalez for review. [facility]04-04-2025 Miscellaneous Notes* Telephone Encounter - Mili Handy LPN - 07/13/2024 2:19 PM EDT Continuous glucose monitoring supplies order form received from [employer]. Form placed in Dr. Gonzalez for review. documented in this encounterMer[facility]. [facility]04-03-2025 Note* Addendum Note - Steve Wagoner MD - 07/12/2024 11:57 AM EDTAddended by: STEVE WAGONER on: 07/12/2024 11:57 AM Modules accepted: Orders [facility]04-03-2025 Miscellaneous Notes* Addendum Note - Steve Wagoner MD - 07/12/2024 11:57 AM EDTAddended by: STEVE WAGONER on: 07/12/2024 11:57 AM Modules accepted: Orders documented in this encounterMercy Health St. [facility]04-03-2025 NoteHNO ID: [id number] Author: STEVE WAGONER MD Service: ? Author Type: Physician Type: Progress Notes Filed: 07/12/2024 11:57 Note Text: [facility] Virtual Established Visit I have communicated my name and active licensure. The patient's identity and physical location were verified at the time of this visit. Either the patient or their legal outside industrial sales representative has been informed of the risks [...] subcutaneously one time a week. Blood-Glucose Sensor (HotPads G7 SENSOR) nimesh Change sensor every 10 [...] To inject weekly MULTIVI (more content not included)...[facility]04-03-2025 History of Present illness Narrative* Steve Wagoner MD - 07/12/2024 9:39 AM EDT Images from the original note were not included. [facility] Virtual Established Visit I have communicated my name and active licensure. The patient's identity and physical location wereverified at the time of this visit. Either the patient or their legal outside industrial sales representative has been informed of the risks [...] subcutaneously one time a week. Blood-Glucose Sensor (HotPads G7 SENSOR) nimesh Change sensor every 10 [...] after. Steve Wagoner MD documented in this encounterMercy Health [facility]. [facility]04-01-2025 Telephone encounter Note * Telephone Encounter - Edith Knott MA - 07/10/2024 2:44 PM EDT Received CGM supply form from [employer]. Form placed in Karl Cook's folder for completion. [facility]04-01-2025 Miscellaneous Notes* Telephone Encounter - Edith Knott MA - 07/10/2024 2:44 PM EDT Received CGM supply form from [employer]. Form placed in Karl Cook's folder for completion. documented in this encounterMer[facility]. [facility]03-21-2025 Telephone encounter Note * Telephone Encounter - [...] call office with any questions or concerns. [facility]03-21-2025 Miscellaneous Notes* Telephone Encounter - Sofiya Haynes [...] any questions or concerns. documented in this encounterMercy Health St. [facility]03-18-2025 Telephone encounter Note * Telephone Encounter - Phyllis Thomas - 06/26/2024 7:56 AM EDT Images from the original note were not included. tirzepatide (MOUNJARO) 7.5 mg/0.5 mL pen injector has been approved Notified patient through [employer] HEYDI DURAND Advertising Director II Endocrinology & Metabolism [place] [facility] X-[address] [facility]03-18-2025 Miscellaneous Notes* Telephone Encounter - Phyllis Thomas - 06/26/2024 7:56 AM EDT Images from the original note were not included. tirzepatide (MOUNJARO) 7.5 mg/0.5 mL pen injector has been approved Notified patient through foodjunkyHEYDI Pablo Advertising Director II Endocrinology & Metabolism [facility] X-20 documented in this encounterMer[facility]. [facility]03-17-2025 Instructions* Patient Instructions* Karl Cook APRN.CNP - [...] Dec Can consider dexcom stelo- subscription at [employer] documented in this encounterMercy Health St. [facility]03-17-2025 NoteHNO ID: [id number] Author: KARL COOK APRN.CNP Service: ? Author [...] mouth DAILY (6 AM). 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 - Proton Pump Inhibitors (PPIs) fludrocortisone (FLORINEF) [...] weekly Medical Supplies and DME - Insulin [employer]-Syringes and Admin Supplies Past History, Medications, Allergies [...] Onset Dementia Mother Co (more content not included)...[facility]03-17-2025 History of Present illness Narrative* Karl Cook APRN.MATERIAL FLOW ENGINEER - 06/25/2024 2:24 PM EDT Endocrinology Follow-up [...] mouth DAILY (6 AM). 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 - Proton Pump Inhibitors (PPIs) fludrocortisone (FLORINEF) [...] weekly Medical Supplies and DME - Insulin [employer]-Syringes and Admin Supplies Past History, Medications, Allergies [...] Dec Can consider dexcom stelo- subscription at [employer] The patient was reminded to check their [...] which included preparing to see the patient, ueqt-ne-gtfr patient care, completing clinical documentation, obtaining and/or reviewing separately obtained history, performing a medically appropriate examination, counseling and educating the pat ient/family/caregiver, ordering medications, tests, or procedures, independently interpreting results (not separately reported), and communicating results to the patient/family/caregiver. Karl Cook APRN.JUAN ANTONIO documented in this encounterMercy Health St. [facility]03-13-2025 Telephone encounter Note * Telephone Encounter - Farzana Morrow RD - 06/21/2024 4:06 PM EDT Spoke with pt via phone - pt set initial appt for spouse at end of September 2024. Pt reports spouse is experiencing unintentional weight loss. Set appt for [address] [facility] Work Phone: 1(278) 526-829503-13-2025 Miscellaneous Notes* Telephone Encounter - Farzana Morrow [...] calling: self Call patient at: on cell [phone] (home) [phone] (cell) Was an appointment scheduled: No Closing statement: Results or non-symptom based questions: Thank you for calling [facility], your call will be returned within the next business day. Lisa Orona documented in this encounterMercy Health St. [facility]03-11-2025 Telephone encounter Note * Telephone Encounter - [...] calling: self Call patient at: on cell [phone] (home) [phone] (cell) Was an appointment scheduled: No Closing statement: Results or non-symptom based questions: Thank you for calling [facility], your call will be returned within the next business day. Lisa Maxwell Pss [facility]03-07-2025 Telephone encounter Note* Telephone Encounter - Swapnil Borrego RN - 06/15/2024 3:47 PM EST Last OV: 12/15/2023 Last Refill: FUV: 09/13/2024 Appropriate for refill. Routed to for review. GENESIS Vitale, RN, SCRN [facility]03-07-2025 Miscellaneous Notes* Telephone Encounter - Swapnil Borrego RN - 06/15/2024 3:47 PM EST Last OV: 12/15/2023 Last Refill: FUV: 09/13/2024 Appropriate for refill. Routed to for review. GENESIS Vitale, RN, SCRN documented in this encounterMercy Health St. [facility]03-06-2025 Telephone encounter Note * Telephone Encounter - [...] and also to the endo scheduling pool. [facility]03-06-2025 Miscellaneous Notes* Telephone Encounter - Bryanna Valdez [...] the endo scheduling pool. documented in this encounterMer[facility] Telephone encounter Note * Telephone Encounter - Sofiya HaynesNAM - 06/13/2024 12:42 PM EST Phoned patient and spoke with patient to confirm appointment for Hola Douglas for spine procedureon 06/26/24. Patient notified that Rutherford will call patient the night before with the time to arrivefor injection. Patient verbalized understanding of the following: -Provided education on spine procedure and answered questions related to spine injection procedure. -Financial Operations Consultant is needed to drive patient home: Yes, and patient aware hearse driver will need to stay for procedure [...] take morning diabetes medication. Patient given number [phone], spine injections schedulers, if there is any [...] UNDERSTANDING OF PRE AND POST INJECTION INSTRUCTIONS [facility]03-05-2025 Miscellaneous Notes* Telephone Encounter - Sofiya Haynes LPN - 06/13/2024 12:42 PM EST Phoned patient and spoke with patient to confirm appointment for Hola Douglas for spine procedureon 06/26/24. Patient notified that Rutherford will call patient the night before with the time to arrivefor injection. Patient verbalized understanding of the following: -Provided education on spine procedure and answered questions related to spine injection procedure. -Financial Operations Consultant is needed to drive patient home: Yes, and patient aware hearse driver will need to stay for procedure [...] take morning diabetes medication. Patient given number [phone], spine injections schedulers, if there is any [...] AND POST INJECTION INSTRUCTIONS documented in this encounterMer[facility] Telephone encounter Note * Telephone Encounter - Sofiya Haynes LPN - 06/06/2024 1:00 PM EST [employer] message sent to patient with Procedure Instructions. [facility]02-26-2025 Miscellaneous Notes* Telephone Encounter - Sofiya Haynes LPN - 06/06/2024 1:00 PM EST [employer] message sent to patient with Procedure Instructions. documented in this encounterMer[facility]02[facility] Telephone encounter Note * Telephone Encounter - Elayne Hdz RN - 06/05/2024 10:37 AM EST Forwarded to schedulers to cancel [facility]02-25-2025 Miscellaneous Notes* Telephone Encounter - Elayne Hdz [...] not found Best number to reach caller: [phone] Best time to reach caller: any Is it OK to leave a detailed voice message? Yes Deborah Oscar documented in this encounterMer[facility] Telephone encounter Note * Telephone Encounter - [...] not found Best number to reach caller: [phone] Best time to reach caller: any Is it OK to leave a detailed voice message? Yes Deborah Oscar [facility]02-19-2025 Telephone encounter Note* Telephone Encounter - Sofiya Haynes LPN - 05/30/2024 1:19 PM EST Phoned patient and spoke with patient to confirm appointment for Hola Douglas for spine procedureon 06/07/24. Patient notified that Rutherford will call patient the night before with the time to arrivefor injection. Patient verbalized understanding of the following: -Provided education on spine procedure and answered questions related to spine injection procedure. -Financial Operations Consultant is needed to drive patient home: Yes, patient is aware hearse driver will need to stay for procedure [...] take morning diabetes medication. Patient given number [phone], spine injections schedulers, if there is any [...] UNDERSTANDING OF PRE AND POST INJECTION INSTRUCTIONS [facility]02-19-2025 Miscellaneous Notes* Telephone Encounter - Sofiya Haynes LPN - 05/30/2024 1:19 PM EST Phoned patient and spoke with patient to confirm appointment for Hola Douglas for spine procedureon 06/07/24. Patient notified that Rutherford will call patient the night before with the time to arrivefor injection. Patient verbalized understanding of the following: -Provided education on spine procedure and answered questions related to spine injection procedure. -Financial Operations Consultant is needed to drive patient home: Yes, patient is aware hearse driver will need to stay for procedure [...] take morning diabetes medication. Patient given number [phone], spine injections schedulers, if there is any [...] spine procedure on 06/07/24. documented in this encounterMer[facility]25 Telephone encounter Note * Telephone Encounter - Sofiya Haynes LPN - 05/23/2024 6:25 PM EST Called and left patient a message for patient to give office a call back regarding her spine procedure on 06/07/24. [facility]02-12-2025 Evaluation note* Author Nichole Castro [facility] HospitalAuthoMunson Healthcare Grayling Hospitalbruary 2024 2:18pmThe above note written by PATRICIA Donnelly acting as human recorder, note dictated by Dr.Brett Gillis. [facility] Work Phone: 1(797) 230-453302-12-2025 Evaluation note* Author Nichole Castro [facility]erry HospitalAuthoredFebruary 2024 1:18pmThe above note written by PATRICIA Donnelly acting as human recorder, note dictated by Dr.Brett Gillis. [facility] Work Phone: 1(623) 967-179002-10-2025 Telephone encounter Note* Telephone Encounter - Sofiya Haynes LPN - 05/21/2024 6:07 PM EST [employer] message sent to patient with Procedure Instructions. [facility]02-10-2025 Miscellaneous Notes* Telephone Encounter - Sofiya Haynes LPN - 05/21/2024 6:07 PM EST [employer] message sent to patient with Procedure Instructions. documented in this encounterMer[facility]02[facility]2025 Telephone encounter Note * Telephone Encounter - Swapnil Borrego RN - 05/21/2024 9:06 AM EST Last OV: 12/15/2023 Last Refill: 03/01/2024 FUV: 09/13/2024 Appropriate for refill. Routed to EM for review. GENESIS Vitale, RN, SCRN [facility]02-10-2025 Miscellaneous Notes* Telephone Encounter - Swapnil Borrego RN - 05/21/2024 9:06 AM EST Last OV: 12/15/2023 Last Refill: 03/01/2024 FUV: 09/13/2024 Appropriate for refill. Routed to EM for review. Bridgitte Borrego, BSN, RN, SCRN documented in this encounterMer[facility]02[facility]2025 Telephone encounter Note * Telephone Encounter - [...] consider spine surgery consult or repeat ANGELA. [facility]02-03-2025 Miscellaneous Notes* Telephone Encounter - Fadumo Winchester [...] patient. Steve Wagoner MD documented in this encounterMer[facility] St. [facility]02[facility]25 Telephone encounter Note * Telephone Encounter - Steve Wagoner MD - 05/14/2024 12:43 PM EST Last visit 03/01. Reviewed the hip and lumbar x-rays-no fracture noted. Please get update from patient. Steve Wagoner MD [facility] Work Phone: 1(182) 475-608101-31-2025 NoteCholesterol Ratio (LDL/HDL)May 11, 2024 10:49am2.45<2.54Reference:1. National Cholesterol Education Program ATP III Guideline At-A-Glance Quick Desk Reference: National Heart, Lung, and Blood [place]. National Institutes of Health. 2001: NIH PublicationNo. 3304.2. An International Atherosclerosis Society position paper: global recommendations for the management of dyslipidemia: executive summary, Atherosclerosis. 2014: 232(2):410-413.[facility] Ferry HospitalComment on above:Reference:1. National Cholesterol Education Program ATP III Guideline At-A-Glance Quick Desk Reference: National Heart, Lung, and Blood [place]. National Institutes of Health. 2001: NIH PublicationNo. .2. An International Atherosclerosis Society position paper: global recommendations for the management of dyslipidemia: executive summary, Atherosclerosis. 2014: 232(2):410-413.05-11-2024 NoteCholesterol Ratio (LDL/HDL)May 11, 2024 10:49am2.45<2.54Reference:1. National Cholesterol Education Program ATP III Guideline At-A-Glance Quick Desk Reference: National Heart, Lung, and Blood [place]. National Institutes of Health. 2001: NIH PublicationNo. .2. An International Atherosclerosis Society position paper: global recommendations for the management of dyslipidemia: executive summary, Atherosclerosis. 2014: 232(2):410-413.[facility] Ferry HospitalComment on above:Reference:1. National Cholesterol Education Program ATP III Guideline At-A-Glance Quick Desk Reference: National Heart, Lung, and Blood [place]. National Institutes of Health. 2001: NIH PublicationNo. .2. An International Atherosclerosis Society position paper: global recommendations for the management of dyslipidemia: executive summary, Atherosclerosis. 2014: 232(2):410-413. 05-11-2024 NoteCholesterol Ratio (LDL/HDL)May 11, 2024 11:49am2.45<2.54 Reference:1. National Cholesterol Education Program ATP III Guideline At-A-Glance Quick Desk Reference: National Heart, Lung, and Blood [place]. National Institutes of Health. 2001: NIH PublicationNo. 3305.2. An International Atherosclerosis Society position paper: global recommendations for the management of dyslipidemia: executive summary, Atherosclerosis. 2014: 232(2):410-413.[facility] Ferry HospitalComment on above:Reference:1. National Cholesterol Education Program ATP III Guideline At-A-Glance Quick Desk Reference: National Heart, Lung, and Blood [place]. National Institutes of Health. 2001: NIH PublicationNo. [...] PATIENT PRESENTS WITH AN IMPLANTABLE OR ATTACHED RADAR OPERATOR: No RADIOLOGY DEPARTMENT: General X-ray: Exam(s) Completed: Spine X-Ray(s): Lumbar AP / LAT / L5-S1 Pelvis X-Ray: Pelvis with Hip Right PERIPHERAL IV DATA: Not applicable SIGNED BY: RT Olegario(R) May 11, 2024 10:20 AM documented in this encounterMer[facility]01-31-2025 NoteHNO ID: [id number] Author: BC JOYCE RT(Selam) Service: ? Author [...] PATIENT PRESENTS WITH AN IMPLANTABLE OR ATTACHED RADAR OPERATOR: No RADIOLOGY DEPARTMENT: General X-ray: Exam(s) Completed: Spine X-Ray(s): Lumbar AP / LAT / L5-S1 Pelvis X-Ray: Pelvis with Hip Right PERIPHERAL IV DATA: Not applicable SIGNED BY: RT Olegario(Selam) May 11, 2024 10:20 AMLogan Regional [id number] Telephone encounter Note* Telephone Encounter - Mili Handy LPN - 05/01/2024 11:32 AM EST PA completed for Wiliam see determination below. Approval Details Authorization number: [id number] Authorized from May 01, 2024 to April 10, [address] [facility]01-21-2025 Miscellaneous Notes* Telephone Encounter - Mili Handy LPN - 05/01/2024 11:32 AM EST PA completed for Wiliam see determination below. Approval Details Authorization number: [id number] Authorized from May 01, 2024 to April 10, 2025 [address] [address]01[facility]2025 Telephone encounter Note * Telephone Encounter - Mili Handy LPN - 05/01/2024 10:35 AM EST Spoke with the patient and updated her on Karl's recommendation. Patient verbalized understanding. [facility]01-21-2025 Miscellaneous Notes* Telephone Encounter - Mili Handy [...] She would like the prescription sent to [facility] in [place] on [address] * Telephone Encounter - Karl [...] She discussed that with Farzana Morrow, the silviculture professor and when she checked with her insurance,mounjaro would also be cheaper. Insurance would still need a prior auth. Please contact patient to advise. Patient has been identified by name and birthdate. Duration of symptoms: N/A Person calling: self Call patient at: on cell [phone] (home) [phone] (cell) Was an appointment scheduled: No Closing statement: Results or non-symptom based questions: Thank you for calling [facility], your call will be returned within the next business day. Roberth Cruz documented in this encounterMer[facility] Health St[facility]01-21-2025 Telephone encounter Note * Telephone Encounter - Karl Cook APRN.CNP - 05/01/2024 9:04 AM EST Rx sent for Mounjaro 5 mg 90 day supply - she may start one week from her last Ozempic dosage ( sheshould finish out what she has) [facility]01-21-2025 Telephone encounter Note* Telephone Encounter - Mili Handy LPN - 05/01/2024 8:47 AM EST Spoke with patient who reports she has enough Ozempic for this month. She would like the prescription sent to [facility] in [place] on . [facility]01-21-2025 Telephone encounter Note* Telephone Encounter - Karl Cook APRN.CNP - 05/01/2024 8:13 AM EST OK to switch to Mounjaro. Does patient have a supply of Ozempic left or is she looking to switch now. Please confirm pharmacy. [facility]01-16-2025 Telephone encounter Note* Telephone Encounter - Roberth Cruz - 04/26/2024 3:06 PM EST Hola is calling Karl Cook APRN.CNP today to request to switch to Mounjaro instead of Ozempic. She discussed that with Farzana Mororw, the silviculture professor and when she checked with her insurance,mounjaro would also be cheaper. Insurance would still need a prior auth. Please contact patient to advise. Patient has been identified by name and birthdate. Duration of symptoms: N/A Person calling: self Call patient at: on cell [phone] (home) [phone] (cell) Was an appointment scheduled: No Closing statement: Results or non-symptom based questions: Thank you for calling [facility], your call will be returned within the next business day. Roberth Cruz [facility]01-14-2025 Telephone encounter Note* Telephone Encounter - Mili Handy LPN - 04/24/2024 4:15 PM EST PA completed for Ozempic see approval below. Approval Details Authorization number: [id number] Authorized from April 24, 2024 to April 10, [address] [facility]01-14-2025 Miscellaneous Notes* Telephone Encounter - Mili Handy LPN - 04/24/2024 4:15 PM EST PA completed for Ozempic see approval below. Approval Details Authorization number: [id number] Authorized from April 24, 2024 to April 10, 2025 * Telephone Encounter - Edith Knott MA - 04/24/2024 1:58 PM EST Prior authorization for Ozempic submitted via [employer]. Awaiting response from plan. documented in this encounterMer[facility]01[facility]2025 Telephone encounter Note * Telephone Encounter - Edith Knott MA - 04/24/2024 1:58 PM EST Prior authorization for Ozempic submitted via [employer]. Awaiting response from plan. [facility]12-20-2024 NoteEducation (ENDAV3) HOLA DOUGLAS ([id number]) 1945 F Date Time Provider Department 03/30/24 10:00 AM FARZANA MORROW3 Reason for Visit: Medical Nutrition Therapy [1695] Cmt: Diabetes management follow-up During your visit [...] daily. Encounter Status:Closed by FARZANA MORROW on 03/30/24[facility] 03-30-2024 NoteHNO ID: [id number] Author: FARZANA MORROW RD Service: ? Author Type: Registered Dietitian Type: Progress Notes Filed: 03/30/2024 11:06 Note Text: [facility] Nutritional Assessment Patient states reason [...] 2: I might b (more content not included)...[facility]12-20-2024 History of Present illness Narrative* Farzana Morrow, RD - 03/30/2024 9:44 AM EST [facility] Nutritional Assessment Patient states reason [...] OTC capsicin cream, but recommended discussed with diversified crops farmer and avoiding all areaswith cracked skin. Per [...] by: Farzana Morrow RD documented in this encounterMer[facility]12-13-2024 Telephone encounter Note * Telephone Encounter - [...] her refill request. Gayle Roberto RN, BSN [facility] Work Phone: [phone] Miscellaneous Notes* Telephone Encounter - Rosa Roberto [...] Gayle Roberto RN, BSN documented in this encounterMer[facility]12-10-2024 NoteHNO ID: [id number] Author: ANDRES RUBIO MD Service: ? Author Type: Physician Type: Progress Notes Filed: 03/21/2024 08:39 Note Text: [facility] - FOLLOW UP EVALUATION Erich Gillis DO [address] [place] [phone] Dear Erich Gillis DO: I had the [...] PM Office Visit from 01/16/2024 in [facility] [place] Most recent reading at 01/13/2024 9:15 PM [...] 3 capsules daily at (more content not included)...[facility]12-10-2024 History of Present illness Narrative* Andres Rubio MD - 03/20/2024 1:51 PM EST [facility] - FOLLOW UP EVALUATION Erich Gillis, [address] [place] [phone] Dear Erich Gillis, DO: I had the [...] PM Office Visit from 01/16/2024 in [facility] [place] Most recent reading at 01/13/2024 9:15 PM [...] are non-specific findings but frequently seen in 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 Previous EMG shows [...] which included preparing to see the patient, [id number] patient care, completing clinical documentation, obtaining and/or [...] Movement Disorders Associate Staff [facility] documented in this encounterMer[facility] St[facility]11-25-2024 Telephone encounter Note * Telephone Encounter - [...] manage this script. Gayle Roberto RN, BSN [facility] Work Phone: 1([phone]) 464-325611-25-2024 Miscellaneous Notes* Telephone Encounter - Rosa Roberto [...] all this for 90 days. Pharmacy Name: [facility] Phone #: [phone] Naina Ch documented in this encounterMer[facility]11-22-2024 Telephone encounter Note * Telephone Encounter - Rosa Robreto RN - 03/02/2024 9:34 AM EST Patient sent another request for gabapentin refill. Left for Sheryl to review upon her return next week. AGUSTÍN Ludwig RNN [facility] Work Phone: [phone]) 850-120811-22-2024 Miscellaneous Notes* Telephone Encounter - Rosa Roberto RN - 03/02/2024 9:34 AM EST Patient sent another request for gabapentin refill. Left for Sheryl to review upon her return next week. AGUSTÍN Luwdig RNN * Telephone Encounter - Rosa Roberto RN - 12/22/2023 3:23 PM EDT Message sent to patient to ask why another provider in [place] filled gabapentin for her since Sheryl has [...] all this for 90 days. Pharmacy Name: [facility] Phone #: [phone] Naina hC documented in this encounterMer[facility]11-21-2024 Telephone encounter Note * Telephone Encounter - Rosa Roberto RN - 03/01/2024 11:33 AM EST Last OV: 12/15/23 Last Refill: Fludrocortisone 12/15/23 Gabapentin 09/20/23 but had PCP fill as pharmacy told her they could not get response from [facility] FU OV: 06/14/24 Appropriate for refill routed to for review due to EM NICO Gayle Roberto RN [facility]11-21-2024 NoteHNO ID: [id number] Author: STEVE WAGONER MD Service: ? Author Type: Physician Type: Progress Notes Filed: 03/01/2024 10:15 Note Text: [facility] Virtual Established Visit I have communicated my name and active licensure. The patient's identity and physical location were verified at the time of this visit. Either the patient or their legal outside industrial sales representative has been informed of the risks [...] daily. No current facility-a (more content not included)...[facility] 03-01-2024 History of Present illness Narrative* Steve Wagoner MD - 03/01/2024 9:56 AM EST [facility] Established Visit I have communicated my name and active licensure. The patient's identity and physical location wereverified at the time of this visit. Either the patient or their legal outside industrial sales representative has been informed of the risks [...] understanding. Steve Wagoner MD documented in this encounterMer[facility]11-20-2024 Telephone encounter Note * Telephone Encounter - [...] all this for 90 days. Pharmacy Name: [facility] Phone #: [phone] [address]aina Ch [facility]11-13-2024 Evaluation note* Diagnosis Onset Date Resolution Status Admit Date Anxiety and depression acuteNovember 2023 1:21pmHistory of fallacuteNovember 2023 1:21pm HyperlipidemiaacuteNovember 2023 1:21pmLumbar radiculopathyacuteNovember 2023 1:21pmType 2 diabetes mellitus with complicationsacuteNovember 2023 1:21pmArthritis of carpometacarpal (CMC) joint of right thumbacuteJanuary 2024 9:44amCarpal tunnel syndrome, leftacuteJanuary 2024 9:44am Carpal tunnel syndrome, rightacuteJanuary 2024 9:44am [facility] Work Phone: 1(361) 160-112611-11-2024 Telephone encounter Note* Telephone Encounter - Steve Wagoner MD - 02/20/2024 11:06 AM EST Seen for R LE symptoms-s/p R Lumbar ANGELA, glad to hear is better. Appears now having new symptoms of L LE symptoms s/p fall 02/15. Given fall and pain recommend urgent care to best address and r/o fracture. Steve Wagoner MD [facility] Work Phone: 1([phone]) 332-307111-11-2024 Miscellaneous Notes* Telephone Encounter - Steve Wagoner [...] 3 capsules at bedtime. documented in this encounterMer[facility]11-11-2024 Telephone encounter Note * Telephone Encounter - [...] capsule BID and 3 capsules at bedtime. [facility]11-07-2024 NoteHNO ID: [id number] Author: KARL LION PT Service: ? Author Type: Physical Therapist Type: Progress Notes Filed: 05/10/2024 10:46 Note Text: 05/10/2024 [facility] PHYSICAL THERAPY DISCONTINUANCE OF CARE Plan of Care Period: Start of Care Date: 01/17/24 Last Visit Date: 02/16/2024 Therapy Program: The following is a summary of the interventions provided for this episode of care; Therapeutic exercise, Neuromuscular re-education, Therapeutic activities, and Self-fci management Assessment: The following is the goal [...] Patient to be seen for Therapeutic exercise (05207), Neuromuscular re-education (57348), Manual therapy (12634), Therapeutic activities (72505), Self-fci management (59174), Gait Training (01879), Body Mechanics Training, Functional training, General Conditioning [...] Better Phys Func - (more content not included)...[facility]11-07-2024 History of Present illness Narrative* Karl Lion, [...] Patient to be seen for Therapeutic exercise (45418), Neuromuscular re-education (60143), Manual therapy (74706), Therapeutic activities (55802), Self-fci management (13224), Gait Training (27394), Body Mechanics Training, Functional training, General Conditioning [...] 1129 Karl Lion PT documented in this encounterMer[facility]11-04-2024 Telephone encounter Note * Telephone Encounter - [...] appointment 2-4 weeks post procedure by calling [phone] Patient does not have any questions or [...] mg 1 BID and 3 at bedtime. [facility]11-04-2024 Miscellaneous Notes* Telephone Encounter - Elayne Hdz [...] appointment 2-4 weeks post procedure by calling [phone] Patient does not have any questions or [...] to call office back or to read [employer] message regarding PostSpine Injection phone call: Right L4-5 transforaminal epidural steroid injection on 02/07/2024 [address]11-01-2024 Telephone encounter Note * Telephone Encounter - Elayne Hdz RN - 02/10/2024 9:09 AM EDT Left message on voicemail for patient to call office back or to read [employer] message regarding PostSpine Injection phone call: Right L4-5 transforaminal epidural steroid injection on 02/07/[address] [facility]10-31-2024 NoteHNO ID: [id number] Author: KARL LION PT Service: ? Author [...] Session Stop Time : 1600 Karl Lion [facility]10-31-2024 History of Present illness Narrative* Karl Lion, [...] 1600 Karl Lion PT documented in this encounter[facility] Hospital Discharge instructions Patient Education 02/06/2024 08:58:38 [...] including vitamins, herbs, eye drops, creams, and qxqf-raf-bivszsq medicines. Any problems you or family members [...] unless your provider tells you to. Taking igdo-zct-xvjvfbw medicines, vitamins, herbs, and supplements. General instructions [...] Follow these instructions at home: Medicines Take cxmh-dpz-swarrld and prescription medicines only as told by [...] actions to prevent or treat constipation: ?Take oerd-hjn-plvlgdk or prescription medicines. ?Eat foods that are [...] provider. Document Revised: 01/20/2023 Document Reviewed: 01/20/2023 ZAINA PHARMA Patient Education 2023 Signicat. Follow Up Care 07/26/2023 09:21:35 With:HIRO BRICENO, Ryan Holland, URL Address: [address] [place], [place] [address]- When: Unknown [facility] [place] [id number] NotePatient Education Urology Urethral Dilation Urethral dilation [...] including vitamins, herbs, eye drops, creams, and rfsy-qhm-ghylyut medicines. ??? Any problems you or family [...] your provider tells you to. ??? Taking qdte-hwq-dvqmywz medicines, vitamins, herbs, and supplements. General instructions [...] these instructions at home: Medicines ??? Take aixo-tgt-bznweih and prescription medicines only as told by [...] to prevent or treat constipation: ? Take yvll-ptq-gemoqfz or prescription medicines. ? Eat foods that [...] a soft tube (catheter) (more content not included)...[facility]10-24-2024 NoteHNO ID: [id number] Author: KARL LION, PT Service: ? Author [...] Session Stop Time : 1250 Karl Lion [facility]10-24-2024 History of Present illness Narrative* Karl Lion, [...] 1250 Karl Lion PT documented in this encounterMer[facility]10-24-2024 Telephone encounter Note * Telephone Encounter - Elayne Hdz RN - 02/02/2024 10:43 AM EDT Phoned patient and spoke with patient to confirm appointment for Hola Douglas for spine procedureon 02/07/2024. Patient notified that Rutherford will call patient the night before with the time to arrive for injection. Patient verbalized understanding of the following: -Provided education on spine procedure and answered questions related to spine injection procedure. -Financial Operations Consultant is needed to drive patient home. Patient's [...] take morning diabetes medication. Patient given number [phone], spine injections schedulers, if there is any [...] UNDERSTANDING OF PRE AND POST INJECTION INSTRUCTIONS [facility]10-24-2024 Miscellaneous Notes* Telephone Encounter - Elayne Hdz RN - 02/02/2024 10:43 AM EDT Phoned patient and spoke with patient to confirm appointment for Hola Douglas for spine procedureon 02/07/2024. Patient notified that R[place]ford will call patient the night before with the time to arrive for injection. Patient verbalized understanding of the following: -Provided education on spine procedure and answered questions related to spine injection procedure. -Financial Operations Consultant is needed to drive patient home. Patient's [...] take morning diabetes medication. Patient given number [phone], spine injections schedulers, if there is any [...] AND POST INJECTION INSTRUCTIONS documented in this encounterMercy Health St. [facility]10-21-2024 Telephone encounter Note * Telephone Encounter - Rosa Roberto RN - 01/30/2024 11:01 AM EDT Message sent to patient to obtain orthostatic vitals over 3 days. AGUSTÍN Ludwig RNN [facility] Work Phone: [phone] Miscellaneous Notes* Telephone Encounter - Rosa Roberto RN - 01/30/2024 11:01 AM EDT Message sent to patient to obtain orthostatic vitals over 3 days. AGUSTÍN Ludwig RNN * Telephone Encounter - Naina Ch - 01/30/2024 10:21 AM EDT Call received for Sheryl Schwartz APRN.MATERIAL FLOW ENGINEER regarding Hola Doulgas 1945. Caller: Self Patient Identified by Name and : Yes Was permission obtained from patient ? NA Reason for Call: Other: Patient called stating her BP is now high and wants to discuss dose of Fludrocortisone. Last Office Visit: 12/15/23 Last Distance Health visit: Visit date not found Next scheduled appointment: 06/14/2024 Best number to reach caller: [phone] Best time to reach caller: any Is it OK to leave a detailed voice message? Yes Naina Ch documented in this encounterMer[facility]10-21-2024 Telephone encounter Note * Telephone Encounter - Naina Ch - 01/30/2024 10:21 AM EDT Call received for Sheryl Schwartz APRN.MATERIAL FLOW ENGINEER regarding Hola Douglas 1945. Caller: Self Patient Identified by Name and : Yes Was permission obtained from patient ? NA Reason for Call: Other: Patient called stating her BP is now high and wants to discuss dose of Fludrocortisone. Last Office Visit: 12/15/23 Last Distance Health visit: Visit date not found Next scheduled appointment: 06/14/2024 Best number to reach caller: [phone] Best time to reach caller: any Is it OK to leave a detailed voice message? Yes Naina Ch [facility]10-17-2024 Telephone encounter Note* Telephone Encounter - Karl [...] PT, DPT Board Certified Neurologic Clinical Specialist [facility] Work Phone: [phone] Miscellaneous Notes* Telephone Encounter - Karl Lion [...] Certified Neurologic Clinical Specialist documented in this encounterMercy Health St. [facility]10-17-2024 NoteHNO ID: [id number] Author: KARL LION PT Service: ? Author [...] falls risk 5: Balanc (more content not included)...[facility]10-17-2024 History of Present illness Narrative* Karl Lion, [...] 155 Karl Lion PT documented in this encounterMer[facility]. [facility]10-10-2024 Instructions* Patient Instructions* Lorraine Oneill MD - [...] some in your car documented in this encounterMercy Health St. [facility]10-10-2024 History of Present illness Narrative* Lorraine Oneill [...] mouth DAILY (6 AM). 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 Patient is on [place]-f by another provider. She is going to [...] which included preparing to see the patient, wsgn-uv-lasd patient care, completing clinical documentation, obtaining and/or reviewing separately obtained history, performing a medically appropriate examination, counseling and educating the pat ient/family/caregiver, and ordering medications, tests, or procedures. SIGNATURE Lorraine Oneill MD January 19, 2024 documented in [address]Mer[facility] St. [facility]10-08-2024 History of Present illness Narrative* Karl Lion PT - 01/17/2024 12:15 PM EDT Program_ID:[id number] Access Code: [email or web address] URL: [email or web address] Date: 01-17-2024 Prepared By: Karl Lion Program [...] Planned: 8 Planned Treatment Interventions: Therapeutic exercise (30436), Neuromuscular re- education (32305), Manual therapy (17026), Therapeutic activities (25691), Self- fci management (94800), Gait Training (52586), Body Mechanics Training, Functional training, General Conditioning [...] Surgical Conditions: Total Knee Replacement-Left 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 [facility]10-07-2024 History of Present illness Narrative* Anibal Borges APRN.MATERIAL FLOW ENGINEER - 01/16/2024 12:34 PM EDT Skin Biopsy Procedure Note Skin Biopsy Accession Number: [id number] Biopsy Date: 01/16/2024 Referring physician: Sheryl Garza APRN MATERIAL FLOW ENGINEER UNIVERSAL PROTOCOL / SAFETY CHECKLIST Procedure to [...] All specimen containers correctly labeled. NAM Amador APRN.MATERIAL FLOW ENGINEER Sign in Pt ID verified with patient. [...] Procedure Note Procedure confirmed with provider and legal support manager. Yes, right leg 2 skin biopsies. The [...] home. Specimens were labeled and sent to [facility] Cutaneous Nerve Laboratory. Procedure was performed by: Anibal Borges APRN.JUAN ANTONIO Assistance in supply/equipment preparation performed by: Pilar Tristan LPN Sign out is complete. documented in this encounterMercy Health St. 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 [...] understanding. Steve Wagoner MD documented in this encounterMercy Health St. [facility]09-26-2024 History of Present illness Narrative* Jailene Garcia [...] PATIENT PRESENTS WITH AN IMPLANTABLE OR ATTACHED RADAR OPERATOR: No RADIOLOGY DEPARTMENT: Mammography PERIPHERAL IV DATA: Not applicable SIGNED BY: RT Tina(R) January 05, 2024 2:51 PM documented in this encounterMercy Health St. [facility]09-26-2024 History of Present illness Narrative* Heather Ford MD - 01/05/2024 2:00 PM EDT MEDICAL BREAST PATIENT NAME: Hola Douglas January 05, 2024 REFERRAL: She is self referred for an opinion regarding left breast soreness. HISTORY of PRESENT ILLNESS: Hola Douglas is a 78 year old postmenopausal female who [facility] the [facility] today for to establish breast [...] which included preparing to see the patient, tbjs-ls-ffko patient care, completing clinical documentation, obtaining and/or reviewing separately obtained history, performing a medically appropriate examination, counseling and educating the pat ient/family/caregiver, ordering medications, tests, or procedures, communicating with other HCPs (not separately reported), independently interpreting results (not separately reported), communicatingresults to the patient/family/caregiver, and care coordination (not separately reported). Heather Ford MD Medical Breast Specialist January 05, 2024 CC: Hola Penaloza [id number] [facility] [address] [address] [place] [id number] documented in [address]Mer[address]. [facility]09-25-2024 History of Present illness Narrative* Farzana Morrow, RD - 01/04/2024 10:00 AM EDT Images from the original note were not included. [facility] Nutritional Assessment Patient states reason [...] eating, peer/social eating, lack of readiness for preparation department supervisor lifestyle changes, convenient eating/time management, etc.) Weight [...] 03/30/24 @ 10-11AM in-person Referred/Supervised by: Lorraine Oniell MD Consult Billing Type: Re-assess/15 minutes, 4 increment(s), 60 minutes Number of Increments: 4 (60 minutes) My final report will be communicated back to the requesting physician by way of shared medical record. Signed by: Farzana Morrow RD documented in this encounterMercy Health St. [facility]09-24-2024 Telephone encounter Note * Telephone Encounter - [...] 15-20 minutes earlyfor paperwork. Vale Holguin MA [facility]09-24-2024 Miscellaneous Notes* Telephone Encounter - Vale Holguin [...] call. Vale Holguin MA documented in this encounterMercy Health St. [facility]09-17-2024 Telephone encounter Note * Telephone Encounter - Vale Holguin MA - 12/27/2023 9:08 AM EDT I called patient regarding her upcoming new patient appointment on 01/05/[address] Fodr. Patient previously saw Dr. Penaloza due to right breast pain. Mammogram benigno- 12/30/2022 Benign (scattered) I left a message asking for patient to return my call. Vale Holguin MA [facility]09-12-2024 Telephone encounter Note* Telephone Encounter - Rosa Roberto RN - 12/22/2023 3:23 PM EDT Message sent to patient to ask why another provider in [place] filled gabapentin for her since Sheryl has begun managing script. Gayle Roberto RN, BSN [facility]09-12-2024 Evaluation note* Author [facility] 20[facility] 11:34amNurse visit by Zenobia Jackson LPN [facility] Work Phone: [phone]) 366-185909-12-2024 Evaluation note* Author Zenobia [facility] 2023 10:34amNurse visit by Zenobia Jackson LPN [facility] Work Phone: [phone]) 407-294409-12-2024 Telephone encounter Note* Telephone Encounter - Rosa Roberto RN - 12/22/2023 9:42 AM EDT Last OV: 12/15/23 Last Refill: 09/20/23 FU OV: 06/14/24 Appropriate for refill routed to for review Gayle Roberto RN [facility]09-11-2024 Telephone encounter Note* Telephone Encounter - Naina [...] all this for 90 days. Pharmacy Name: [facility] Phone #: [phone] Naina Ch [facility]09-11-2024 Telephone encounter Note* Telephone Encounter - Vijaya Borrego RN - 12/21/2023 10:01 AM EDT This matter is being addressed in a separate encounter ( 9/10). Closing this encounter. Maggy Borrego RN [facility]09-11-2024 Miscellaneous Notes* Telephone Encounter - Vijaya Borrego RN - 12/21/2023 10:01 AM EDT This matter is being addressed in a separate encounter ( 9/10). Closing this encounter. Maggy Borrego RN documented in this encounterMercy Health St. [facility]09-05-2024 Instructions* Patient Instructions* Andrea Lees MD - [...] help with severe symptoms. documented in this encounterMercy Health St. [facility]09-05-2024 History of Present illness Narrative* Andrea Lees [...] often, can occur while standing singing at [employer], better with sitting down Per Nursing Intake [...] repeat 45-minute passive Tilt Table Test with wfhk-ew-mztp blood pressure measurement (to see how low [...] She denies TLOC since last visit with ks 03/26/2021. Advised that she monitor her blood pressures while on florinef and update Dr King with any persistently high blood pressures > 140s mmHg systolic. Advise periodic assessment for hypokalemia while taking florinef. 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 A prescription for pantyhose length compression stockings [...] of syncope. [ACC/AHA Syncope Guidelines 2017. PMID 37379199] -If syncope is frequent (more than 6 episodes in 1 year), then no private driving until symptoms are controlled. [ACC/AHA Syncope Guidelines 2017. PMID 25015750] -For professional or commercial driving, driving recommendations may differ depending upon company or governmental regulations. Andrea Lees MD, [facility], [facility] Director of the Syncope Center Cardiac Electrophysiology [facility] The Nurses and Nurse Practitioners at [facility] are integral to your care. -*Test results will be available on Quewey.* -For brief questions regarding the test results, please send a Quewey message or call the office ([phone]), and a Nurse will be in contact. [...] note were not included. [facility] [place] Ingrid Cotton Department of Cardiovascular Medicine SECTION OF CARDIAC PACING and ELECTROPHYSIOLOGY OUTPATIENT VISIT DATE December 15, 2023 PRIMARY CARE PHYSICIAN: Erich Gillis DO [address] [place] [phone] NURSING INTAKE HISTORY: Ms. Douglas is a [...] -- Supine -- -- REVIEW OF SYSTEMS: [facility] Syncope Center Score Please estimate the frequency [...] 20 Kelsea Figueroa RN documented in this encounterMercy Health St. [facility]09-05-2024 Instructions* Patient Instructions* Sheryl Garza APRN.CNP - [...] / top number >150). documented in this encounterMercy Health St. [facility]09-05-2024 History of Present illness Narrative* Sheryl Garza, MARÍA ELENA.MATERIAL FLOW ENGINEER - 12/15/2023 12:00 PM EDT Images from the original note were not included. [facility] Follow-Up/Established Patient Visit Chief Complaint/Issues: Hola Douglas is a 78 year old handed right-handed female seen in the [facility] for: Follow up Orthostatic [...] are non-specific findings but frequently seen in 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 Recent EMG shows [...] & Plan 12/15/2023 - Neuromuscular, Sheryl Garza, MULTIMEDIA SPECIALIST.MATERIAL FLOW ENGINEER ASSESSMENT Hola Douglas is a 78 year [...] SBP reduction of 21 mmHg both at of tiltm at which time testing was [...] which included preparing to see the patient, fnuj-nc-kvzd patient care, completing clinical documentation, obtaining and/or reviewing separately obtained history, counseling and educating the patient/family/caregiver, and ordering medications, tests, or procedures. Sheryl Garza APRN.JUAN ANTONIO General Neurology [address] [place]. [address] Appointment: [phone] During our face to face clinical encounter [...] of your PCP/referring physician documented in this encounterMercy Health St. [facility]09-04-2024 History of Present illness Narrative* Elvi Fenton [...] Andrea Lees MD . Procedure Start Time: 11:06 Height [...] Procedure Finish Time: 12:10 documented in [address]Mer[address] [facility] [address]. [facility]09-03-2024 Telephone encounter Note * Telephone Encounter - Lizbeth Keller RN - 12/13/2023 11:34 AM EDT Called patient, left message on patient-identifying VM requesting patient to call back regarding a medication question prior to her tilt table test [facility]09-03-2024 Miscellaneous Notes* Telephone Encounter - Lizbeth Keller RN - 12/13/2023 11:34 AM EDT Called patient, left message on patient-identifying VM requesting patient to call back regarding a medication question prior to her tilt table test documented in this encounterMercy Health St. [facility]08-25-2024 History of Present illness Narrative* Zack Pichardo [...] PATIENT PRESENTS WITH AN IMPLANTABLE OR ATTACHED RADAR OPERATOR: No RADIOLOGY DEPARTMENT: MR; Exam(s) Completed: Spine: Cervical spine and Lumbar spine PERIPHERAL IV DATA: Not applicable SIGNED BY: GUILHERME Saenz December 04, 2023 10:45 AM documented in this encounterMercy Health St. [facility]08-25-2024 NoteHNO ID: [id number] Author: ZACK PICHARDO MRI Tech Service: Radiology [...] PATIENT PRESENTS WITH AN IMPLANTABLE OR ATTACHED RADAR OPERATOR: No RADIOLOGY DEPARTMENT: MR; Exam(s) Completed: Spine: Cervical spine and Lumbar spine PERIPHERAL IV DATA: Not applicable SIGNED BY: Zack Pichardo, yarrow gatherer December 04, 2023 10:45 [id number] NoteHNO ID: [id number] Author: ANNA MARIE TREJO RT(Selam) Service: ? Author Type: Hospice Plan Administrator Type: Progress Notes Filed: 11/29/2023 14:25 Note [...] PATIENT PRESENTS WITH AN IMPLANTABLE OR ATTACHED RADAR OPERATOR: No RADIOLOGY DEPARTMENT: General X-ray: Exam(s) Completed: Spine X-Ray(s): Lumbar AP / LAT / L5-S1 / FLEX-EXT PERIPHERAL IV DATA: Not applicable SIGNED BY: RT Yury(R) November 29, 2023 2:24 [id number] History of Present illness Narrative* Anna Marie [...] PATIENT PRESENTS WITH AN IMPLANTABLE OR ATTACHED RADAR OPERATOR: No RADIOLOGY DEPARTMENT: General X-ray: Exam(s) Completed: Spine X-Ray(s): Lumbar AP / LAT / L5-S1 / FLEX-EXT PERIPHERAL IV DATA: Not applicable SIGNED BY: RT Yury(R) November 29, 2023 2:24 PM documented in this encounterMercy Health St. [facility]08-20-2024 History of Present illness Narrative* Rachele Snato, PT - 11/29/2023 1:19 PM EDT Images [...] Patient and wouldlike to be seen in [place] outside of [facility]. Order issued. She will benefit from [...] (patient wants to fu with PT in [place] , PT order copied and given to patient) Planned Treatment Interventions: PLAN FOR NEXT VISIT: Patient demonstrates fair understanding of plan of care and treatment. The above goals and plan of care were discussed and agreed upon by patient/family. SUBJECTIVE: chronic low back pain x 12 years . Hx of low back and RLE radicular pain .She has seen pain management at [facility] with injections this year and last [...] States/Identifies, Return Demonstration, Requires Review/Additional Education TREATMENT: Self-Custodial Management: 1: * does not drink water during the day . Educated on drinking water. 2: pateint would like to f/u with PT in [place] 3: discussed need for trunk strengthening and general conditioning Skilled Intervention: Reviewed patient specific diagnosis in relation to activities of daily living/home management. Activity progression based on professional judgement. PT Treatment Interventions: Therapeutic Exercise, Self-Custodial Management Evaluation Self-Custodial Management: 1: * does not drink water during the day . Educated on drinking water. 2: pateint would like to f/u with PT in [place] 3: discussed need for trunk strengthening and [...] 1407 Rachele Santo PT documented in this encounterMercy Health St. [facility]08-20-2024 History of Present illness Narrative* Steve Wagoner [...] continues to help PT in past-none recent Uieppqrnotq-hpgxwhqwjs-qdfg not feeling helps much Patient Entered Questionnaires [...] 2023 TIME: 10:52 AM documented in this encounterMercy Health St. [facility]08-05-2024 Telephone encounter Note * Telephone Encounter - Maryjo Bach - 11/14/2023 1:27 PM EDT Pt called and said that Farzana wanted her to come in for a new sensor on Tuesday (11/16/23) at noon. Pt stated she forgot that she had another appointment during that time and wanted to know if she could come sooner. Please adviseRemberto Barrett [facility]08-05-2024 Miscellaneous Notes* Telephone Encounter - Maryjo Bach - 11/14/2023 1:27 PM EDT Pt called and said that Farzana wanted her to come in for a new sensor on Tuesday (11/16/23) at noon. Pt stated she forgot that she had another appointment during that time and wanted to know if she could come sooner. Please advise. Nena documented in this encounterMercy Health St. [facility]08-02-2024 Telephone encounter Note * Telephone Encounter - Farzana Morrow RD - 11/11/2023 2:36 PM EDT Pt reports she and spouse are unable to twist-open a Primo 3 CGM sample provided by chief writer at [facility] appt. Discussed briefly. Set time for pt to turkey picker new CMG sample. Farzana Morrow RD 11/11/[address] [facility] Work Phone: 1(486) 699-322308-02-2024 Miscellaneous Notes* Telephone Encounter - Farzana Morrow RD - 11/11/2023 2:36 PM EDT Pt reports she and spouse are unable to twist-open a Primo 3 CGM sample provided by chief writer at [facility] appt. Discussed briefly. Set time for pt to turkey picker new CMG sample. Farzana Morrow RD 11/11/2023 documented in [address]Mer[facility]08-02-2024 Telephone encounter Note * Telephone Encounter - Alma Delia Stout - 11/11/2023 12:46 PM EDT Patient called to ask for assistance with primo sensor [facility]08-02-2024 Miscellaneous Notes* Telephone Encounter - Alma Delia Stout - 11/11/2023 12:46 PM EDT Patient called to ask for assistance with primo sensor documented in this encounterMercy Health St. [facility]07-27-2024 History of Present illness Narrative* Karl Magaña [...] PATIENT PRESENTS WITH AN IMPLANTABLE OR ATTACHED RADAR OPERATOR: No RADIOLOGY DEPARTMENT: MR; Exam(s) Completed: Head: Routine Brain PERIPHERAL IV DATA: Site assessment: Clean,Dry and Intact, Site disposition Discontinued SIGNED BY: GUILHERME Saenz, RT(R)(MR) November 05, 2023 11:47 AM documented in this encounterMercy Health St. [facility]07-27-2024 NoteHNO ID: [id number] Author: KARL MAGAÑA RN Service: Nursing Author [...] Douglas DATE: November 05, 2023 TIME: 11:12 [facility]ogan [facility] HospitalMoagdlnz45-87-0485 NoteHNO ID: [id number] Author: ZACK PICHARDO MRI Tech Service: Radiology [...] PATIENT PRESENTS WITH AN IMPLANTABLE OR ATTACHED RADAR OPERATOR: No RADIOLOGY DEPARTMENT: MR; Exam(s) Completed: Head: Routine Brain PERIPHERAL IV DATA: Site assessment: Clean,Dry and Intact, Site disposition Discontinued SIGNED BY: Zack Pichardo, yarrow gatherer Diana Mccoy, RT(R)(MR) November 05, 2023 11:47 [id number] Telephone encounter Note* Telephone Encounter - Sheryl Garza APRN.CNP - 11/02/2023 8:33 AM EDT New order placed, thank you. Sheryl Garza APRN.CNP [facility]07-24-2024 Miscellaneous Notes* Telephone Encounter - Sheryl Garza [...] Thank you in advance documented in this encounterMer[facility] St. [facility]07-24-2024 Telephone encounter Note * Telephone Encounter - Humera Lubin - 11/02/2023 8:28 AM EDT Patient is coming in for an MRI on 11/04 and it looks like the order got discontinued for some reason. Can we get a new one placed ? MRI BRAIN WO/W IVCON Thank you in advance [facility]07-23-2024 Evaluation note* Diagnosis Type 2 diabetes mellitus with stage 3a chronic kidney disease, without long-term current use of insulin (HCC)- Primary 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athy (HCC) Mixed hyperlipidemia documented in this encounter [facility]07-17-2024 Instructions* Patient Instructions* Karl Cook APRN.CNP - 10/26/2023 4:49 PM EDT Continue Ozempic 1 mg once weekly Notify the office if you have frequent highs Test sometimes in the evening Follow up with Dr Oneill in January, see me in April documented in this encounterMer[facility]. [facility]07-17-2024 History of Present illness Narrative* Karl Cook APRN.CNP - 10/26/2023 4:30 PM EDT Endocrinology Follow-up I have communicated my name and active licensure. The patient's identity and physical location wereverified at the time of this visit. Either the patient or their legal outside industrial sales representative has been informed of the risks [...] mouth DAILY (6 AM). 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 Will assess A1C, discussed meeting with operations director as well. I have recommended patient follow [...] which included preparing to see the patient, lzkt-ps-bcft patient care, completing clinical documentation, obtaining and/or reviewing separately obtained history, performing a medically appropriate examination, counseling and educating the pat ient/family/caregiver, ordering medications, tests, or procedures, independently interpreting results (not separately reported), and communicating results to the patient/family/caregiver. Karl Cook APRN.JUAN ANTONIO documented in this encounterMer[facility] Health St. [facility]07-12-2024 Evaluation + Plan note Extracted from:Title:Pain Managment [...] Date:02/07/2024 01:00:00 PM Scheduled Provider:Ryan LIVE MD Location:[facility] Appointment Type:URO Office Visit [facility]06-28-2024 Telephone encounter Note* Telephone Encounter - Livia [...] PSS NOTE: Patient needs scheduled appointment No [facility]06-28-2024 Miscellaneous Notes* Telephone Encounter - Livia Calhoun [...] needs scheduled appointment No documented in this encounterMercy Health St. [facility]06-26-2024 History of Present illness Narrative* Farzana Morrow RD - 10/05/2023 11:00 AM EDT [facility] Medical Nutrition Therapy Visit Type: In-Person (Face [...] by: Farzana Morrow RD documented in this encounterMer[facility] Health St. [facility]06-26-2024 Evaluation note* Diagnosis Type 2 diabetes mellitus with stage 3a chronic kidney disease, without long-term current use of insulin (HCC)- Primary Abnormal weight gain Overweight (BMI 25.0-29.9) Overweight documented in this encounter [facility]06-20-2024 Telephone encounter Note* Telephone Encounter - Lizett Wang RN - 09/29/2023 11:21 AM EDT Spoke with patient and advised her of below. [facility]06-20-2024 Miscellaneous Notes* Telephone Encounter - Lizett Wang [...] calling: self Call patient at: at home [phone] (home) [phone] (cell) Was an appointment scheduled: No Closing statement: Results or non-symptom based questions: Thank you for calling [facility], your call will be returned within the next business day. Nikki Orona documented in this encounterMercy Health St. [facility]06-20-2024 Telephone encounter Note * Telephone Encounter - Karl Cook APRN.CNP - 09/29/2023 10:51 AM EDT Labs placed- nonfasting + urine test [facility] Work Phone: 1(265) 438-344606-19-2024 Telephone encounter Note* Telephone Encounter - Lucia Nguyen RN - 09/28/2023 3:24 PM EDT Pended labs if agreeable. [facility]06-19-2024 Telephone encounter Note* Telephone Encounter - Nikki Marmolejo - 09/28/2023 2:51 PM EDT Hola is calling Karl Cook APRN.MATERIAL FLOW ENGINEER today to ask if she should have labs done prior to her appointment in October Please advise Patient has been identified by name and birthdate. Duration of symptoms: N/A Person calling: self Call patient at: at home [phone] (home) [phone] (cell) Was an appointment scheduled: No Closing statement: Results or non-symptom based questions: Thank you for calling [facility], your call will be returned within the next business day. Nikki Orona [facility]06-10-2024 Miscellaneous Notes* Telephone Encounter - Rosa Roberto RN - 09/19/2023 4:51 PM EDT Last OV: 07/26/23 Last Refill: 07/29/23 FU OV: 12/15/23 Appropriate for refill routed to ES for review Gayle Roberto RN documented in this encounterMer[facility]06-10-2024 Telephone encounter Note * Telephone Encounter - Rosa Roberto RN - 09/19/2023 4:51 PM EDT Last OV: 07/26/23 Last Refill: 07/29/23 FU OV: 12/15/23 Appropriate for refill routed to ES for review Gayle Roberto RN [facility] Work Phone: 1(847) 783-238706-10-2024 Evaluation + Plan noteExtracted from:Title: Right diagnostic [...] Date:10/21/2023 01:00:00 PM Scheduled Provider:Kristie Saavedra PA-C Location:[facility] Appointment Type:Pain Management - Follow Up (FT) Appointment Date:02/07/2024 01:00:00 PM Scheduled Provider:Ryan LIVE MD Location:[facility] Appointment Type:URO Office Visit [facility]06-07-2024 Telephone encounter Note* Telephone Encounter - Lizett Wang RN - 09/16/2023 10:27 AM EDT Signed note and office notes faxed back. [facility]06-07-2024 Miscellaneous Notes* Telephone Encounter - Lizett Wang RN - 09/16/2023 10:27 AM EDT Signed note and office notes faxed back. * Telephone Encounter - Lizett Wang RN - 09/09/2023 11:20 AM EDT Fax from [facility], needing office notes and signature on form from Dr. Oneill. Placed in folder. documented in this encounterMercy Health St. [facility]06-04-2024 Instructions* Patient Instructions* Andres Rubio MD - [...] check on everything again. documented in this encounterMercy Health St. [facility]06-04-2024 History of Present illness Narrative* Andres Rubio MD - 09/13/2023 11:00 AM EDT [facility] - NEW PATIENT EVALUATION Referring Provider: Sheryl Garza [address] [place] [id number] Primary Care Provider: Erich Gillis, [address] [address] Dear Sheryl Garza: Thank you for referring [...] 5 mg by mouth once daily. lancets (Alim InnovationsTOUCH DELICA PLUS LANCET) 33 gauge Use as instructed to check blood sugar daily. blood sugar diagnostic (Alim InnovationsTOUCH ULTRA TEST) test strip Use as instructed [...] the past. 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 Recent EMG shows [...] which included preparing to see the patient, awoq-is-rxvx patient care, completing clinical documentation, obtaining and/or [...] Sincerely, Andres Rubio MD documented in this encounterMer[facility]05-31-2024 Telephone encounter Note * Telephone Encounter - Lizett Wang RN - 09/09/2023 11:20 AM EDT Fax from [facility], [facility] office notes and signature on form from Dr. Oneill. Placed in folder. [facility]05-29-2024 Miscellaneous Notes* Telephone Encounter - Lizett Wang RN - 09/07/2023 2:04 PM EDT Patients last Endocrinology visit occurred Last encounter Visit on 06/23/2023 (with Lorraine Oneill) Follow-up evaluation has been established Upcoming Endocrinology Appointments - Next 365 Days Visit Type Date Time Department SORAYA DIETITIAN VISIT 10/05/2023 11:00 AM ENDO DIAB ED [facility] REJ EST SORAYA PATIENT 10/26/2023 4:00 PM ENDO [facility] REJ EST SORAYA PATIENT 01/19/2024 3:00 PM ENDO [facility] REJ . Requested Prescriptions Pending Prescriptions Disp [...] notes from last visit to Rocael Samuels [facility]. She does not have the fax number. Please disregard previous message for refills of lancets and test strips as she needs this new brand. Patient has been identified by name and birthdate. Person calling: self Call patient at: at home [phone] (home) [phone] (cell) Was an appointment scheduled: No Closing statement: Results or non-symptom based questions: Thank you for calling [facility], your call will be returned within the next business day. Shannon Moeller documented in this encounterMercy Health St. [facility]05-29-2024 Telephone encounter Note * Telephone Encounter - Lizett Wang RN - 09/07/2023 2:04 PM EDT Patients last Endocrinology visit occurred Last encounter Visit on 06/23/2023 (with Lorraine Oneill) Follow-up evaluation has been established Upcoming Endocrinology Appointments - Next 365 Days Visit Type Date Time Department SORAYA DIETITIAN VISIT 10/05/2023 11:00 AM ENDO DIAB ED [facility] REJ EST SORAYA PATIENT 10/26/2023 4:00 PM ENDO [facility] REJ EST SORAYA PATIENT 01/19/2024 3:00 PM ENDO [facility] REJ . Requested Prescriptions Pending Prescriptions Disp [...] and also to the endo scheduling pool. [facility]05-29-2024 Telephone encounter Note* Telephone Encounter - Lizett Wang RN - 09/07/2023 1:36 PM EDT Per patient please disregard she needs a new brand. [facility]05-29-2024 Miscellaneous Notes* Telephone Encounter - Lizett Wang RN - 09/07/2023 1:36 PM EDT Per patient please disregard she needs a new brand. documented in this encounterMer[facility] Health St. [facility]05-29-2024 Telephone encounter Note * Telephone Encounter - [...] calling: self Call patient at: at home [phone] (home) [phone] (cell) Was an appointment scheduled: No Closing statement: Results or non-symptom based questions: Thank you for calling [facility], your call will be returned within the next business day. Shannon Moeller [facility]05-22-2024 Evaluation note* Author Francisca Godwin [facility] HospitalAuthoredIny 2023 2:14pmThe above note written by Francisca GOMEZ acting as human recorder, note dictated by Dr. Erich Gillis. [facility] Work Phone: 1(115) 896-577405-16-2024 Telephone encounter Note* Telephone Encounter - Magalis Baldwin - 08/25/2023 3:56 PM EDT Contacted pt to advise that she's in the right place and we look forward to seeing her in September! She thanked me for the return call. [facility]05-16-2024 Miscellaneous Notes* Telephone Encounter - Magalis Baldwin [...] Movement Disorders Associate Staff [facility] * Telephone Encounter - Magalis Baldwin - 08/25/2023 10:11 AM EDT Pt phoned - she is scheduled in September with Dr. Rubio and wanted to make sure this is an appropriate appointment. Referral info in ChaoWIFI. Forwarding to [facility] to advise. [phone] documented in [address] [address]05-16-2024 Telephone encounter Note * Telephone Encounter - [...] Movement Disorders Associate Staff [facility] Work Phone: 1(810) 896-312805-16-2024 Telephone encounter Note* Telephone Encounter - Magalis Baldwin - 08/25/2023 10:11 AM EDT Pt phoned - she is scheduled in September with Dr. Rubio and wanted to make sure this is an appropriate appointment. Referral info in ChaoWIFI. Forwarding to [facility] to advise. [phone] [facility]05-15-2024 History of Present illness Narrative* Brian Marcelo [...] Lind. Brian Marcelo MD documented in this encounterMercy Health St. [facility]05-07-2024 Evaluation + Plan note Extracted from:Title:chronic painAuthor:Arroyo [...] Date:02/07/2024 01:00:00 PM Scheduled Provider:Ryan LIVE MD Location:[facility] Appointment Type:URO Office Visit [facility]04-24-2024 History of Present illness Narrative* Da King MD - 08/03/2023 12:50 PM EDT Images from the original note were not included. [facility] [place] Ingrid Cotton Department of Cardiovascular Medicine SECTION OF CARDIOVASCULAR IMAGING OUTPATIENT VISIT DATE 08/03/23 OUTPATIENT VISIT TYPE ESTABLISHED PRIMARY CARE PHYSICIAN: Erich Gillis DO [address] [place] [id number] CHIEF COMPLAINT: CV health management visit. HISTORY [...] by others. CONTACT INFORMATION: Da King M.D., [facility] Section Head, Cardiovascular Imaging Carl and Cee Cotton Department of Cardiovascular Medicine [facility] [place] [facility] Desk [address] [place] [address] Office - [phone] extension [phone] Office Appointments: [phone] extension [phone] documented in [address] encounterMer[facility]04-19-2024 Miscellaneous Notes* Telephone Encounter - Sheryl Garza [...] Gayle Roberto RN, BSN documented in this encounterMercy Health St. [facility]04-16-2024 Instructions* Patient Instructions* Sheryl Garza APRN.CNP - 07/26/2023 4:38 PM EDT 1) Labs 2) Agree with repeat EPS tilt 3) Ambulatory BP monitor -Closely record symptoms and BP medications 4) EMG 5) MRI Brain w/ w/o 6) Consult to movement disorders 7) Follow up with pain mangement for leg / back pain documented in this encounterMercy Health St. [facility]04-16-2024 History of Present illness Narrative* Sheryl Garza APRN.CNP - 07/26/2023 3:30 PM EDT Images from the original note were not included. [facility] Follow-Up/Established Patient Visit Chief Complaint/Issues: Hola Douglas is a 78 year old handed right-handed female seen in the [facility] for: Follow up Labile [...] back pain. She sees pain management at [facility] and had a radiofrequency ablation which has [...] Plantarflexion 5/5 5/5 Movement/Coordination Finger-to- nose-finger and gvjt-hp-icjk intact bilaterally. No evidence of ataxia arms. [...] & Plan 07/26/2023 - Neuromuscular, Sheryl Garza APRN.MATERIAL FLOW ENGINEER ASSESSMENT Hola Douglas is a 78 year [...] SBP reduction of 21 mmHg both at uuwhgl84 of tiltm at which time testing was [...] which included preparing to see the patient, pzax-yu-cdav patient care, completing clinical documentation, obtaining and/or reviewing separately obtained history, performing a medically appropriate examination, counseling and educating the pat ient/family/caregiver, and ordering medications, tests, or procedures. Sheryl Garza APRN.[facility] General Neurology [address] [place] [address]. [phone] Appointment: [phone] During our face to face clinical encounter [...] of your PCP/referring physician documented in this encounterMercy Health St. [facility]04-16-2024 Hospital Discharge instructions Patient Education 07/26/2023 09:15:59 [...] including vitamins, herbs, eye drops, creams, and xaom-zvr-kkscfiy medicines. Any problems you or family members [...] provider tells you to take them. Taking wnwl-usy-pyxknrs medicines, vitamins, herbs, and supplements. General instructions [...] Follow these instructions at home: Medicines Take qhvh-srs-qtbqarm and prescription medicines only as told by [...] actions to prevent or treat constipation: ?Take gheq-jwe-vjudqfz or prescription medicines. ?Eat foods that are [...] provider. Document Revised: 05/10/2019 Document Reviewed: 05/10/2019 ElseYOOSE Patient Education 2022 Signicat. Follow Up Care 02/08/2023 11:20:09 With:HIRO BRICENO, Ryan Holland, URL Address: [address] [address]- When: Unknown Comments:6 mos for IO [facility] [phone] Miscellaneous Notes* Telephone Encounter - Norma Ferreira, Research Coordinator - 07/05/2023 9:10 AM EDT Messaged patient about research study opportunity. documented in this encounterMercy Health St. [facility]03-15-2024 Evaluation + Plan note Extracted from:Title:Pain Managment [...] Date:07/26/2023 08:45:00 AM Scheduled Provider:Ryan LIVE MD Location:[facility] Appointment Type:URO Office Visit [facility]03-14-2024 Instructions* Patient Instructions* Lorraine Oneill MD - [...] (H) High (L) Low documented in this encounterMercy Health St. [facility]03-14-2024 History of Present illness Narrative* Lorraine Oneill [...] mouth DAILY (6 AM). 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 She had multiple use [...] MD June 23, 2023 [address]Mer[address] [facility] [address]03-14-2024 Evaluation note* Diagnosis Type 2 diabetes mellitus with stage 3a chronic kidney disease, without long-term current use of insulin (HCC)- Primary Abnormal weight gain Mixed hyperlipidemia 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athy (HCC) documented in this encounter [facility]03-11-2024 Evaluation note* Author Carmen Arroyo [facility] 2023 3:30pmNurse visit performed by Taina Arroyo PROJECT ENG [facility] Work Phone: 1(903) 675-745303-11-2024 Evaluation note* Author Francisca Godwin [facility] 2023 2:14pmThe above note written by Francisca GOMEZ acting as human recorder, note dictated by Dr. Erich Gillis. Author Carmen Arroyo [facility] 2023 3:30pmNurse visit performed by Taina Arroyo PROJECT ENG [facility] Work Phone: 1(883) 485-712003-04-2024 History of Present illness Narrative* Andrea Lees [...] often, can occur while standing singing at [employer], better with sitting down Per Nursing Intake [...] repeat 45-minute passive Tilt Table Test with cfgx-cf-enjt blood pressure measurement (to see how low [...] She denies TLOC since last visit with ks 03/26/2021. Advised that she monitor her blood pressures while on florinef and update Dr King with any persistently high blood pressures > 140s mmHg systolic. Advise periodic assessment for hypokalemia while taking florinef. Advise calcium and vitamin D supplementation if the patient is to take florinef shelter. Discussed preparation department supervisor cardiac monitoring with an Implantable Loop Recorder [...] repeat 45-minute passive Tilt Table Test with uxxq-tw-egbz blood pressure measurement and the patient agrees; [...] of syncope. [ACC/AHA Syncope Guidelines 2017. PMID 21781175] -If syncope is frequent (more than 6 episodes in 1 year), then no private driving until symptoms are controlled. [ACC/AHA Syncope Guidelines 2017. PMID 54413506] -For professional or commercial driving, driving recommendations may differ depending upon company or governmental regulations. Andrea Lees MD, [facility], [facility] Director of the Syncope Center Cardiac Electrophysiology [facility] The Nurses and Nurse Practitioners at [facility] are integral to your care. -*Test results will be available on Quewey.* -For brief questions regarding the test results, please send a Quewey message or call the office ([phone]), and a Nurse will be in contact. [...] with the referring or primary physician for preparation department supervisor ongoing care. Please contact your referring or [...] note were not included. [facility] [place] Ingrid Cotton Department of Cardiovascular Medicine SECTION OF CARDIAC PACING and ELECTROPHYSIOLOGY OUTPATIENT VISIT DATE June 13, 2023 PRIMARY CARE PHYSICIAN: Erich Gillis, DO [address] [place] [address] REFERRING PHYSICIAN: No referring provider defined for [...] / dizziness. Discussed possible ILR placement for preparation department supervisor monitoring and she wanted to consider further. [...] (81.6kg) BMI 27.38 kg/(m^2). Sheryl Sargent RN [facility] Syncope Center Score Please estimate the frequency [...] of Both Sections: 17 documented in [address] encounterMer[address]. [facility]02-28-2024 Evaluation + Plan note Extracted from:Title:Bilateral sacroiliac [...] Date:06/24/2023 10:30:00 AM Scheduled Provider:Kristie Saavedra PA-C Location:[facility] Appointment Type:Pain Management - Follow Up () Appointment Date:07/26/2023 08:45:00 AM Scheduled Provider:Ryan LIVE MD Location:[facility] Appointment Type:URO Office Visit [facility]02-28-2024 Note [id number] [facility] 06-08-2023 NoteDiagnosis: M46.1, bilateral sacroiliitis Procedure: Bilateral [...] procedure, and agrees to continue currently prescribed/recommended therapies.[facility] Comment on above:Result Comment: Electronically Signed By: Anirudh Arroyo DO\Date and Time Signed: 06/08/23 10:27 [id number] History of Present illness Narrative* Tameka Krause, [...] attempts for recovery of her sx's. Pt. [place] sx's recover after 15 minutes, however BP [...] per plan of care. documented in this encounterMercy [id number] Evaluation + Plan note Extracted from:Title:Pain Managment [...] Date:07/26/2023 08:45:00 AM Scheduled Provider:Ryan LIVE MD Location:[facility] Appointment Type:URO Office Visit [facility]02-01-2024 History of Present illness Narrative* Tameka Krause [...] per plan of care. documented in this encounterMercy Hospital [id number] Evaluation + Plan note Extracted from:Title:Right lumbar [...] Date:05/20/2023 10:15:00 AM Scheduled Provider:Kristie Saavedra PA-C Location:[facility] Appointment Type:Pain Management - Follow Up (FT) Appointment Date:07/26/2023 08:45:00 AM Scheduled Provider:Ryan LIVE MD Location:[facility] Appointment Type:URO Office Visit [facility]01-10-2024 Note [id number] [facility] 04-20-2023 NoteDiagnosis: M47.816, right-sided lumbar spondyloarthropathy Procedure: [...] The patient agrees to continue currently prescribed/recommended therapies.[facility] HospitalComment on above: Result Comment: Electronically Signed By: Anirudh Arroyo DO\Date and Time Signed: 04/20/23 09:07 [id number] Evaluation note* Encounter Date Diagnosis Assessment Notes [...] Z98.890) Mar,Left foot pain (ICD-10 - M79.672) [employer] Other 12-12-2023 Evaluation note* Encounter Date Diagnosis Assessment Notes Treatment Notes Treatment Clinical Notes Mar, Restless leg syndrome (ICD-10 - G25.81) [employer] Other 11-29-2023 Evaluation note* Encounter Date Diagnosis [...] out of her boot and walking well. 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 Feb,Unilateral primary osteoarthritis of first carpometacarpal joint, right hand (ICD-10 - M18.11) Feb,3Carpal tunnel syndrome, left (ICD-10 - G56.02) Feb,3Carpal tunnel syndrome, right (ICD-10 - G56.01) Feb,Other specified postprocedural states (ICD-10 - Z98.890) [facility] [employer] Other 11-16-2023 Evaluation note* Encounter Date Diagnosis Assessment Notes Treatment Notes Treatment Clinical Notes Feb, Moderate persistent asthmatic bronchitis with acute exacerbation (ICD-10 - J45.41) [facility] [employer] Other 11-06-2023 Evaluation note* Encounter Date Diagnosis Assessment Notes Treatment Notes Treatment Clinical Notes Feb, Acute cough (ICD-10 - R05.1) See TE for clinical treatment plan. Patient and provider aware of testing results. [employer] Other 10-23-2023 Evaluation + Plan noteExtracted from:Title: FUVAuthor:Faisal BRICENO, Jamey DDate:01/31/23 Impression and Plan 77-year-old female with right-sided severe low back pain consistent with lumbar spondylosis. The patient had excellent response to her first set of diagnostic facet blocks to the right L4-5 and L5-I7vxpdrq. I recommend repeating the injections to confirm [...] Date:02/08/2023 10:15:00 AM Scheduled Provider:Ryan LIVE MD Location:[facility] Appointment Type:URO Office Visit [facility]10-13-2023 Evaluation note* Encounter Date Diagnosis Assessment Notes [...] order to buderer for compounded topical medication. 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09-21-2023 History of Present illness Narrative* Hermila Llamas [...] 30, 2022 2:23 PM documented in this encounterMercy Health St. [facility]09-15-2023 Evaluation note* Encounter Date Diagnosis Assessment Notes [...] weight on the left hand as tolerated. [employer] Other 09-09-2023 Miscellaneous Notes* Telephone Encounter - Lorraine Oneill MD - 12/18/2022 3:32 PM EDT Orders are approved. I sent a Quewey message with a request for a notification [...] patient at: at home and on cell [phone] (home) [phone] (cell) Was an appointment scheduled: No Closing statement: Results or non-symptom based questions: Thank you for calling [facility], your call will be returned within the next business day. Elli Hopkins Ma documented in this encounterMercy Health St. [facility]09-05-2023 Miscellaneous Notes* Telephone Encounter - Dilcia Murphy RN - 12/14/2022 1:51 PM EDT Confirmed upcoming appointment with Dr. Penaloza on 12/30. Patient aware of appointment location change to A10. New appointment location will be available in [employer]. Patient verbalized understandingand appreciative of call. documented in this encounterMercy Health St. [facility] Center08-30-2023 Evaluation note* Encounter Date Diagnosis Assessment Notes Treatment Notes Treatment Clinical Notes Nov, Maxillary sinusitis, unspecified chronicity (ICD-10 - J32.0) The patient states sinusitis symptoms comes and goes, triggered by allergies and the recent [place] fires. CT of the sinus obtained 10/07/22 [...] instructions provided. We will continue to monitor. [employer] Other [id number] Evaluation + Plan noteExtracted from:Title: DAMARISuthor:Jamey Malone [...] Date:02/08/2023 10:15:00 AM Scheduled Provider:Ryan LIVE MD Location:[facility] Appointment Type:URO Office Visit [facility]08-23-2023 Evaluation note* Encounter Date Diagnosis Assessment Notes [...] Nov,Other specified postprocedural states (ICD-10 - Z98.890) [employer] Other 08-15-2023 Evaluation note* Encounter Date Diagnosis [...] Nov,Other specified postprocedural states (ICD-10 - Z98.890) [employer] Other 08-04-2023 Miscellaneous Notes* Telephone Encounter - Brigid Guthrie - 11/12/2022 4:57 PM EDT November 12, 2022 Patient Contact Number: [phone] (home) Patient last seen within the last year: Yes Date of last office visit: Reason For Call: BP is in low 50's/40's for last 2 days, SOB, wont go to ED Physician: Da King MD Patient was informed that non-urgent calls may be returned within the next three business days. Yes Brigid STARKS documented in this encounterMercy Health St. [facility]07-26-2023 Evaluation note* Encounter Date Diagnosis Assessment Notes [...] Oct,arpal tunnel syndrome, right (ICD-10 - G56.01) [employer] Other 07-18-2023 Evaluation + Plan noteExtracted from:Title: [...] Date:01/14/2023 09:15:00 AM Scheduled Provider:Ryan LIVE MD Location:[facility] Appointment Type:URO Office Visit [facility]06-22-2023 Evaluation note* Encounter Date Diagnosis Assessment Notes [...] Upon review of her ultrasound today the office secretary noted a positive yessica sign, however her [...] if persists will need to see dermatology. [employer] Other [id number] Miscellaneous Notes* Telephone Encounter - Lizett Wang RN - 09/29/2022 3:50 PM EDT Faxed back. * Telephone Encounter - Lizett Wang RN - 09/29/2022 10:23 AM EDT Form here from [facility] for signature. Placed in Dr. Pizano's inbox. documented in this encounterMercy Health St. [facility]06-21-2023 History of Present illness Narrative* Agusto Andrews MA - 09/29/2022 3:12 PM EDT Fax Report for [facility] regarding [place] [place] Fax Confirmation Number [id number] documented in this encounterMercy Health St. [facility]06-06-2023 Miscellaneous Notes* Telephone Encounter - Carlita Drake LPN - 09/14/2022 3:55 PM EDT Requester: Patient Patients last Endocrinology visit occurred Last encounter Visit on 09/13/2022 (with Karl Cook) Follow-up evaluation has been established Upcoming Endocrinology Appointments - Next 365 Days Visit Type Date Time Department EST SORAYA PATIENT 12/23/2022 10:40 AM ENDO [facility] REJ Requested Prescriptions Pending Prescriptions Disp Refills gabapentin (NEURONTIN) 300 mg capsule [Pharmacy Med Name: GABAPENTIN CAP 300MG] 270 capsule 0 Sig: TAKE 3 CAPSULES DAILY AT BEDTIME If patient is due for an appointment please route to provider for refill consideration and also to the endo scheduling pool. PSS NOTE: Patient needs scheduled appointment No documented in this encounterMercy Health St. [facility]05-31-2023 Miscellaneous Notes* Telephone Encounter - Kristie Ward PA-C - 09/08/2022 5:01 PM EDT I called the patient to discuss low blood pressure. Her fludrocorticosone had been discontinued. She saw her PCP today where her blood pressure was 90/60. I advised she needs to start taking the fludrocortisone again and offered a TELEPHONE ENGINEER follow up but patient declined, she would like to wait and see Dr. King. I explained signs/symptoms and parameters for her to go to the ED. Patient verbalized understanding. Kristie Ward PA-C * Telephone Encounter - Brigid STARKS - 09/08/2022 4:39 PM EDT September 08, 2022 Patient Contact Number: [phone] Patient last seen within the last year: [...] Yes Brigid Tolbert ADM documented in this encounterMercy Health St. [facility]05-31-2023 Evaluation note* Encounter Date Diagnosis Assessment Notes [...] the medrol dp and advised her to turkey picker the refill for the zpak. Patient and [...] today and advised the to call her locksmith helper, CC Dr. Johnston, to let them know of her current situation and get their opinion on starting midodrine. Patient and voiced understanding. [employer] Other 05-04-2023 Evaluation + Plan noteExtracted from:Title: Clinical DocumentAuthor:Gagan BRICENO, Aishasaint joseph eastDate:08/12/22 Chief complaint: Right-sided low back and leg [...] going to be taking a trip to [facility] 4 days from now.She denies new neurologic [...] Date:08/30/2022 10:15:00 AM Scheduled Provider:Ryan LIVE MD Location:[facility] Appointment Type:URO Office Visit Appointment Date:08/31/2022 11:30:00 AM Scheduled Provider:Jamey Malone MD Location:[facility] Appointment Type:Pain Management - Follow Up (FT) Appointment Date:01/14/2023 09:15:00 AM Scheduled Provider:Ryan LIVE MD Location:[facility] Appointment Type:URO Office Visit [facility]04-25-2023 History of Present illness Narrative* Da King MD - 08/03/2022 1:42 PM EDT Images from the original note were not included. [facility] [place] In[facility] Cotton Department of Cardiovascular Medicine SECTION OF CARDIOVASCULAR IMAGING OUTPATIENT VISIT DATE August 03, 2022 OUTPATIENT VISIT TYPE ESTABLISHED PRIMARY CARE PHYSICIAN: Erich Gillis DO [address] [place] [id number] CHIEF COMPLAINT: CV health management visit. HISTORY [...] MD. August 03, 2022 Da King M.D., [facility] Section Head, Cardiovascular Imaging Carl [facility] Cee [facility] Department of Cardiovascular Medicine [facility] [place] [facility] Desk [id number] [address] Office - [phone] extension [phone] Office Appointments: [phone] extension [phone] documented in this encounterMercy Health St. [facility]03-23-2023 Miscellaneous Notes* Telephone Encounter - Edith Knott Ma - 07/01/2022 2:53 PM EDT Medicare Part B Detailed Written Order form for lancets completed by provider and faxed back to [facility]. documented in this encounterMercy Health St. [facility]03-16-2023 Miscellaneous Notes* Telephone Encounter - Juanita Beltran [employer] - 06/24/2022 9:[address] notes to [facility]. Successfully transmitted to [phone] Juanita Beltran Advertising Director [address] [phone] documented in [address]Mer[address]. [facility]03-13-2023 Evaluation note* Encounter Date Diagnosis Assessment Notes Treatment Notes Treatment Clinical Notes Jun, Abnormal bleeding time (ICD-10 - R79.1) [employer] Other 03-07-2023 Evaluation note* Encounter Date Diagnosis Assessment Notes Treatment Notes Treatment Clinical Notes Jun, Cough (ICD-10 - R05.9) [employer] Other 03-06-2023 Evaluation note* Encounter Date Diagnosis [...] and tingle for hours after this injection. [employer] Other 03-01-2023 Miscellaneous Notes* Telephone Encounter - Jamil ORONA - 06/09/2022 10:51 AM EST Received CGM form from [facility] ,sent to to review and signed . documented in this encounterMercy Health St. [facility]02-23-2023 Miscellaneous Notes* Telephone Encounter - Tiara Skaggs RN - 06/03/2022 1:39 PM EST Dwo for one touch delica, test strips, and lancets from [facility] received, completed form placed inKarl Cook's in box for review and signature documented in this encounterMercy Health St. [facility] Center02-17-2023 Miscellaneous Notes* Telephone Encounter - Edith Knott [...] Levaquin [Levofloxacin], and Avelox [Moxifloxacin Hcl] (home) [phone] (cell) Reason for call: robbie told patient the orders for the glucose meter, lancets and test strips need to go to [facility] and must be Medicare Part B. Patient last appointment: 05/19/2022 The patients preferred pharmacy has been captured for this encounter? no Marcela Madrid documented in this encounterMercy Health St. [facility]02-16-2023 Evaluation note* Encounter Date Diagnosis Assessment Notes [...] The patient encouraged to continue following with steel rigger as scheduled. Hgb a1c appears to be [...] been ordered to repeat in three months. [employer] Other [id number] Miscellaneous Notes* Telephone Encounter - Lizett Wang RN - 05/27/2022 11:58 AM EST Received office notes from Carlos Flood. Placed in Karl's folder. documented in this encounterMercy Health St. [facility]02-13-2023 Instructions* Patient Instructions* Karl Cook APRN.CNP - 05/24/2022 1:28 PM EST Continue Ozempic 0.5 mg once weekly Continue Metformin- if you start to have diarrhea, then go ahead and stop and do not restart. Call this number to see if there is a program for the Ozempic: By phone: Call [phone] ( ) Tuesday-Tuesday, 8:00am-11:00pm, and Tuesday, 11:00am-7:00pm ET. Follow up in [address] Oneill Repeat thyroid levels in 3 months- hold biotin for 3-5 days prior to your test. documented in this encounterMercy Health St. [facility]02-13-2023 History of Present illness Narrative* Karl Cook [...] mouth DAILY (6 AM). 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 She was given [employer] phone number to see if she would [...] which included preparing to see the patient, ffeb-pp-ipya patient care, completing clinical documentation, obtaining and/or reviewing separately obtained history, performing a medically appropriate examination, counseling and educating the pat ient/family/caregiver, ordering medications, tests, or procedures, independently interpreting results (not separately reported), and communicating results to the patient/family/caregiver. Karl Cook APRN.CNP documented in this encounterMercy Health St. [facility]02-09-2023 Miscellaneous Notes* Telephone Encounter - Edith Knott [...] Levaquin [Levofloxacin], and Avelox [Moxifloxacin Hcl] (home) [phone] (cell) Reason for call: Patient calling in asking if you would like her to complete labs prior to appt. Please call patient back. Patient last appointment: Visit date not found The patients preferred pharmacy has been captured for this encounter? no Dinorah ORONA documented in this encounterMercy Health St. [facility]01-30-2023 Evaluation note* Encounter Date Diagnosis Assessment Notes [...] tried flushing this out on her own. [employer] Other 01-26-2023 Evaluation note* Encounter Date Diagnosis Assessment Notes Treatment Notes Treatment Clinical Notes Apr, Headache (ICD-10 - R51.9) Apr,Lightheadedness (ICD-10 - R42) Apr,Right ear pain (ICD-10 - H92.01) Apr,Mastoiditis (ICD-10 - H70.90) [employer] Other 01-24-2023 Evaluation note* Encounter Date Diagnosis Assessment Notes Treatment Notes Treatment Clinical Notes Apr, Headache (ICD-10 - R51.9) Apr,Lightheadedness (ICD-10 - R42) Apr,Mastoiditis (ICD-10 - H70.90) Apr,Right ear pain (ICD-10 - H92.01) [employer] Other 01-23-2023 Evaluation note* Encounter Date Diagnosis Assessment Notes Treatment Notes Treatment Clinical Notes Apr, Mastoiditis (ICD-10 - H70.90) [employer] Other 01-23-2023 Evaluation note* Encounter Date Diagnosis [...] we will recheck that in 1 week [employer] Other 12-27-2022 Evaluation note* Encounter Date Diagnosis Assessment Notes Treatment Notes Treatment Clinical Notes Mar, Cough (ICD-10 - R05.9) In house covid, flu and rsv test all negative. Mar,hills (ICD-10 - R68.83) [employer] Other 12-09-2022 Evaluation note* Encounter Date Diagnosis [...] Mar,arpal tunnel syndrome, right (ICD-10 - G56.01) [employer] Other 11-07-2022 History of Present illness Narrative* Da King MD - 02/15/2022 9:24 AM EST Images from the original note were not included. [facility] [place] In[facility] Department of Cardiovascular Medicine SECTION OF CARDIOVASCULAR IMAGING OUTPATIENT VISIT DATE February 15, 2022 OUTPATIENT VISIT TYPE ESTABLISHED PRIMARY CARE PHYSICIAN: Erich Gillis DO [address] [place] [id number] CHIEF COMPLAINT: CV health management visit. HISTORY [...] 15, 2022 9:24 AM Da King M.D., [facility] Section Head, Cardiovascular Imaging Carl [employer] Cee Cotton Department of Cardiovascular Medicine [facility] [place] [facility] Des[address] [address] Office - [phone] extension [phone] Office Appointments: [phone] extension [phone] documented in [address] encounterMercy Health St. [facility]11-03-2022 Miscellaneous Notes* Telephone Encounter - Rosa Roberto RN - 02/11/2022 4:05 PM EDT Patient sending in blood pressure readings. Gayle Roberto RN documented in this encounterMercy Health St. [facility] Center10-27-2022 Evaluation note* Encounter Date Diagnosis Assessment Notes [...] encouraged to contact her specialist at the [facility] to report her blood pressure readings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 as of this encounter (statuses as of 04/29/2022) [facility] of [facility] illness Narrative* ProblemNoted Date Resolved DateLesion of ulnar nervePain in limb12/15/2004 11/10/2018documented as of this encounter (statuses as of 05/20/2022) [facility] of [facility] illness Narrative* ProblemNoted Date Resolved DateLesion of ulnar nervePain in limb12/15/2004 11/10/2018documented as of this encounter (statuses as of 05/25/2022) [facility] of [facility] illness Narrative* ProblemNoted Date Resolved DateLesion of ulnar nervePain in limb12/15/2004 11/10/2018documented as of this encounter (statuses as of 05/28/2022) [address]06[address] History of Past illness Narrative* ProblemNoted Date Resolved DateLesion of ulnar nervePain in limb12/15/2004 11/10/2018documented as of this encounter (statuses as of 06/03/2022) [place] [address] History of Past illness Narrative* ProblemNoted Date Resolved DateLesion of ulnar nervePain in limb12/15/2004 11/10/2018documented as of this encounter (statuses as of 06/09/2022) [facility] of [facility] illness Narrative* ProblemNoted Date Resolved DateLesion of ulnar nervePain in limb12/15/2004 11/10/2018documented as of this encounter (statuses as of 06/24/2022) [facility] of [facility] illness Narrative* ProblemNoted Date Resolved DateLesion of ulnar nervePain in limb12/15/2004 11/10/2018documented as of this encounter (statuses as of 06/24/2022) [facility] of [facility] illness Narrative* ProblemNoted Date Resolved DateLesion of ulnar nervePain in limb12/15/2004 11/10/2018documented as of this encounter (statuses as of 07/01/2022) [facility] of [facility] illness Narrative* ProblemNoted Date Resolved DateLesion of ulnar nervePain in limb12/15/2004 11/10/2018documented as of this encounter (statuses as of 08/04/2022) [facility] of [facility] illness Narrative* ProblemNoted Date Resolved DateLesion of ulnar nervePain in limb12/15/2004 11/10/2018documented as of this encounter (statuses as of 09/09/2022) [place] [address]2005 History of Past illness Narrative* ProblemNoted Date Resolved DateLesion of ulnar nervePain in limb12/15/2004 11/10/2018documented as of this encounter (statuses as of 09/15/2022) [facility] Narrative* ProblemNoted Date Resolved DateLesion of ulnar nervePain in limb12/15/2004 11/10/2018documented as of this encounter (statuses as of 09/30/2022) [facility] of [facility] illness Narrative* ProblemNoted Date Diagnosed DateResolved DateLesion of ulnar nervePain in limbdocumented as of this encounter (statuses as of 11/13/2022) [facility] of [facility] illness Narrative* ProblemNoted Date Diagnosed DateResolved DateLesion of ulnar nervePain in limbdocumented as of this encounter (statuses as of 12/15/2022) [facility] Past illness Narrative* ProblemNoted Date Diagnosed DateResolved DateLesion of ulnar nervePain in limbdocumented as of this encounter (statuses as of 12/18/2022) [facility]09[facility] History of Past illness Narrative* ProblemNoted Date Diagnosed DateResolved DateLesion of ulnar nervePain in limbdocumented as of this encounter (statuses as of 12/31/2022) [facility] History of Past illness Narrative* ProblemNoted Date Diagnosed DateResolved DateLesion of ulnar nervePain in limbdocumented as of this encounter (statuses as of 12/31/2022) [facility] History of Past illness Narrative* ProblemNoted Date Diagnosed DateResolved DateLesion of ulnar nervePain in limb12/15/documented as of this encounter (statuses as of 06/13/2023) [facility] History of Past illness Narrative* ProblemNoted Date Diagnosed DateResolved DateLesion of ulnar nervePain in limbdocumented as of this encounter (statuses as of 06/16/2023) [facility] History of Past illness Narrative* ProblemNoted Date Diagnosed DateResolved DateLesion of ulnar nervePain in limbdocumented as of this encounter (statuses as of 06/24/2023) [facility] History of Past illness Narrative* ProblemNoted Date Diagnosed DateResolved DateLesion of ulnar nervePain in limb12/15/documented as of this encounter (statuses as of 07/27/2023) [facility]09[facility] History of Past illness Narrative* ProblemNoted Date Diagnosed DateResolved DateLesion of ulnar nervePain in limbdocumented as of this encounter (statuses as of 07/27/2023) [facility] History of Past illness Narrative* ProblemNoted Date Diagnosed DateResolved DateLesion of ulnar nervePain in limbdocumented as of this encounter (statuses as of 07/29/2023) [facility] Future App[facility]ments Appointment Date:07/07/2021 09:45:00 AM Scheduled Provider:Jamey Malone MD Location[facility] Appointment Type:Pain Management - Follow Up (FT) [facility] Future Appointments Appointment Date:11/24/2021 01:15:00 PM Scheduled Provider:Jamey Malone MD Location:[facility] [place] Appointment Type:[facility] - [facility] Future Appointments Appointment Date:12/21/2021 02:15:00 PM Scheduled Provider:Jamey Malone MD Location:[facility] [place] Appointment Type:Pain Management - Follow Up (FT) Appointment Date:01/12/2022 03:15:00 PM Scheduled Provider:Ryan LIVE MD Location:[facility] App[facility] Future Appointments Appointment Date:01/14/2023 09:15:00 AM Scheduled Provider:Ryan LIVE MD Location:[facility] Appointment Type:URO Office Visit [facility] Evaluation + Plan note Future Appointments Appointment Date:08/30/2022 10:15:00 AM Scheduled Provider:Ryan LIVE MD Location:[facility] Appointment Type:URO Office Visit Appointment Date:08/31/2022 11:30:00 AM Scheduled Provider:Jamey Malone MD Location:[facility] [place] Appointment Type:Pain Management - Follow Up (FT) Appointment Date:01/14/2023 09:15:00 AM Scheduled Provider:Ryan LIVE MD Location:[facility] Appointment Type:URO [facility] Future Appointments Appointment Date:11/22/2022 11:00:00 AM Scheduled Provider:Jamey Malone MD Location:[facility] [place] Appointment Type:Pain Management - Follow Up (FT) Appointment Date:01/14/2023 09:15:00 AM Scheduled Provider:Ryan LIVE MD Location:[facility] App[facility]ment [facility] Future Appointments Appointment Date:03/07/2023 11:15:00 AM Scheduled Provider:Kristie Saavedra PA-C Location:[facility] [place] Appointment Type:Pain Management - Follow Up (FT) Appointment Date:07/26/2023 08:45:00 AM Scheduled Provider:Ryan LIVE MD Location:[facility] Appointment Type:URO [facility] Plan [facility] Future Appointments Appointment Date:02/07/2024 01:00:00 PM Scheduled Provider:Ryan LIVE MD Location:[facility] Appointment Type:URO Office Visit [facility] Evaluation + Plan note Future Appointments Appointment Date:08/18/2023 11:15:00 AM Scheduled Provider:Anirudh Arroyo DO Location:[facility] Appointment Type:Pain Management - Follow Up (FT) Appointment Date:02/07/2024 01:00:00 PM Scheduled Provider:Ryan LIVE MD Location:[facility] Appointment Type:URO [facility] note Future Appointments Appointment Date:07/17/2024 08:45:00 AM Scheduled Provider:Ryan LIVE MD Location:[facility] Appointment Type:URO Office Visit [facility] evaluation + Plan note Future Appointments Appointment Date:02/21/2025 10:20:00 AM Scheduled Provider:ROSEMARY Rodas APRN, [place] [facility] Location:[facility] Appointment Type:URO Office Visit [facility] evaluation note* Diagnosis Transient loss of consciousness- Primary Syncope and collapse Near syncope Syncope and collapse Labile blood pressure Elevated blood pressure reading without diagnosis of hypertension documented in this encounter [facility] note* Diagnosis Orthostatic lightheadedness- Primary Dizziness and giddiness documented in this encounter [facility] note* Diagnosis Orthostatic lightheadedness- Primary Dizziness and giddiness documented in this encounter [facility] noteNo [facility] [employer] Other [employer] note* Diagnosis Orthostatic intolerance- Primary Disturbance of skin sensation Resting tremor Abnormal involuntary movements Dizziness Dizziness and giddiness documented in this encounter [facility] note* Diagnosis Screening breast examination Breast screening, unspecified documented in this encounter [facility] note* Diagnosis Mastalgia- Primary Mastodynia Rib pain on left side Chest pain, unspecified documented in this encounter [facility] note* Diagnosis Orthostatic hypotension- Primary documented in this encounter [facility] note* Diagnosis Orthostatic lightheadedness- Primary Dizziness and giddiness documented in this encounter [facility] note* Diagnosis Dizziness- Primary Dizziness and giddiness Hypotension, chronic Chronic hypotension Syncope, unspecified syncope type POTS (postural orthostatic tachycardia syndrome) Tachycardia, unspecified documented in this encounter [facility] note* Diagnosis Dizziness- Primary Dizziness and giddiness documented in this encounter [facility] noteNo assessment information availableAvita Health System Work Phone: Evaluation note* Diagnosis Transient loss of consciousness- Primary Syncope and collapse documented in this encounter [facility] note* Diagnosis Orthostatic lightheadedness- Primary Dizziness and giddiness documented in this encounter [facility] note* Diagnosis Dizziness- Primary Dizziness and giddiness documented in this encounter [facility] note* Diagnosis Dizziness- Primary Dizziness and giddiness Hypotension, chronic Chronic hypotension POTS (postural orthostatic tachycardia syndrome) Tachycardia, unspecified documented in this encounter [facility] note* Diagnosis Well controlled type 2 diabetes mellitus with neurological manifestations (HCC) Type II or unspecified type diabetes mellitus with neurological manifestations, not stated as uncontrolled documented in this encounter [facility] note* Diagnosis 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 Mixed hyperlipidemia documented in this encounter [facility] note* Diagnosis Elevated TSH- Primary Nonspecific abnormal results of thyroid function study Well controlled type 2 diabetes mellitus with neurological manifestations (HCC) Type II or unspecified type diabetes mellitus with neurological manifestations, not stated as uncontrolled Other hyperlipidemia [E78.49 (ICD-10-CM)] documented in this encounter [facility] note* Diagnosis POTS (postural orthostatic tachycardia syndrome)- Primary Tachycardia, unspecified Hypotension, chronic Chronic hypotension Palpitations Dizziness Dizziness and giddiness documented in this encounter [facility] note* Diagnosis Pain of foot, unspecified laterality documented in this encounter [facility] noteNort [employer] Other [facility]NoLe[facility] [employer] Other Evaluation note* Diagnosis 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 Fatigue, unspecified type documented in this encounter [facility] note* Diagnosis Costochondritis, acute- Primary Tietze's disease documented in this encounter [facility] note* Diagnosis Encounter for breast cancer screening other than mammogram Breast screening, unspecified Breast pain Mastodynia Encounter for screening mammogram for malignant neoplasm of breast Other screening mammogram [facility]* Diagnosis Left foot pain- Primary Pain in soft tissues of limb [facility] Diagnosis Left foot pain- Primary Pain in soft tissues of limb [facility]* Diagnosis Labile blood pressure- Primary Elevated blood pressure reading without diagnosis of hypertension Near syncope Syncope and collapse documented in this encounter [facility] note* Diagnosis Labile blood pressure- Primary Elevated [...] soft tissue, unspecified [facility]* Diagnosis Pain of foot, unspecified laterality documented in this encounter [facility] note* Diagnosis POTS (postural orthostatic tachycardia syndrome)- Primary Tachycardia, unspecified Orthostatic lightheadedness Dizziness and giddiness Palpitations Dizziness Dizziness and giddiness Mixed hyperlipidemia documented in this encounter [facility] note* Diagnosis Low back pain with right-sided sciatica, unspecified back pain laterality, unspecified chronicity- Primary Left leg weakness Other musculoskeletal symptoms referable to limbs Disturbance of skin sensation Type 2 diabetes mellitus with diabetic polyneuropathy, without long-term current use of insulin (HCC) Paresthesia of skin Disturbance of skin sensation documented in this encounter [facility] note* Diagnosis 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 Diagnosis Postural instability- Primary Disorders [...] the nervous system [facility]* Diagnosis Labile blood pressure Elevated blood pressure reading without diagnosis of hypertension Abnormal saccadic eye movement Pursuit movement deficiency Deficiencies of smooth pursuit movements Other symptoms and signs involving the nervous system documented 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 Diagnosis Labile blood pressure- Primary Elevated blood pressure reading without diagnosis of hypertension Abnormal saccadic eye movement Pursuit movement deficiency Deficiencies of smooth pursuit movements Other symptoms and signs involving the nervous system [facility] encounter [facility]* Diagnosis Labile blood pressure Elevated blood pressure reading without diagnosis of hypertension Abnormal saccadic eye movement Pursuit movement deficiency Deficiencies of smooth pursuit movements Other symptoms and signs involving the nervous system [facility] Diagnosis Pre-operative clearance- Primary Preoperative [...] referable to limbs documented [facility] Diagnosis Pre-operative clearance- Primary Preoperative [...] spondylosis with radiculopathy documented [facility] Diagnosis Pre-operative clearance- Primary Preoperative [...] spondylosis with radiculopathy [facility]* Diagnosis Pre-operative clearance- Primary Preoperative [...] referable to limbs documented [facility] Diagnosis Pre-operative clearance- Primary Preoperative [...] spondylosis with radiculopathy documented [facility] Diagnosis Pre-operative clearance- Primary Preoperative [...] diagnosis of hypertension documented [facility] Diagnosis Pre-operative clearance- Primary Preoperative [...] Dizziness and giddiness documented [facility]* Diagnosis Pre-operative clearance- Primary Preoperative examination, unspecified Pain in extremity, unspecified extremity Essential hypertension, benign Uncontrolled type 2 diabetes with neuropathy Type II or unspecified type diabetes mellitus with neurological manifestations, uncontrolled Mixed hyperlipidemia Iron deficiency anemia, unspecified iron deficiency anemia type Diarrhea due to malabsorption Personal history of other diseases of digestive system Orthostatic hypotension- Primary documented in this encounter [facility] note* Author Zenobia Jackson [facility] HospitalAuthoredSeptember 2023 11:34amNurse visit by Zenobia Jackson LPN [facility] Work Phone: Evaluation note* Diagnosis Pre-operative [...] Index 27.0-27.9, adult documented in this encounter [facility] note* Diagnosis Pre-operative clearance- Primary Preoperative examination, [...] Abnormality of gait documented in this encounter [facility] note* Diagnosis Pre-operative clearance- Primary Preoperative examination, [...] neoplasm of ovary [facility]* Diagnosis Pre-operative clearance- Primary Preoperative [...] breast disorder Mastodynia [facility]* Diagnosis Pre-operative clearance- Primary Preoperative [...] of cervical spine documented [facility] this [facility]* Diagnosis Pre-operative clearance- Primary Preoperative [...] skin sensation- Primary [facility]* Diagnosis Pre-operative clearance- Primary Preoperative [...] Abnormality of gait [facility]* Diagnosis Pre-operative clearance- Primary Preoperative [...] of cervical spine [facility] Diagnosis Pre-operative clearance- Primary Preoperative [...] acute postoperative pain documented in this encounter [facility] note* Diagnosis Pre-operative clearance- Primary Preoperative examination, [...] spondylosis with radiculopathy documented in this encounter [facility] note* Diagnosis Pre-operative clearance- Primary Preoperative examination, [...] spondylosis with radiculopathy documented in this encounter [facility] note* Diagnosis Pre-operative clearance- Primary Preoperative examination, [...] spondylosis with radiculopathy documented in this encounter [facility] note* Diagnosis Pre-operative clearance- Primary Preoperative examination, [...] spondylosis with radiculopathy [facility]* Diagnosis Pre-operative clearance- Primary Preoperative [...] peripheral neuropathy (HCC) documented [facility]* Diagnosis Pre-operative clearance- Primary Preoperative [...] Abnormality of gait [facility]* Diagnosis Pre-operative clearance- Primary Preoperative [...] unspecified spinal region [facility] Diagnosis Pre-operative clearance- Primary Preoperative [...] Dizziness and giddiness documented [facility]* Diagnosis Pre-operative clearance- Primary Preoperative [...] Dizziness and giddiness documented [facility]* Diagnosis Pre-operative clearance- Primary Preoperative [...] disease, without long-term current use of insulin ([facility])- Primary documented in this encounter [facility] note* Diagnosis Pre-operative clearance- Primary Preoperative examination, unspecified Pain in extremity, unspecified extremity Essential hypertension, benign Uncontrolled type 2 diabetes with neuropathy Type II or unspecified type diabetes mellitus with neurological manifestations, uncontrolled Mixed hyperlipidemia Iron deficiency anemia, unspecified iron deficiency anemia type Diarrhea due to malabsorption Personal history of other diseases of digestive system Fall, initial encounter documented in this encounter [facility] note* Diagnosis Pre-operative clearance- Primary Preoperative examination, [...] spondylosis with radiculopathy documented in this encounter [facility] note* Diagnosis Pre-operative clearance- Primary Preoperative examination, [...] spondylosis with radiculopathy [facility]* Author Nichole Castro [facility] HospitalAuthoredFebruary 2024 1:18pmThe above note written by PATRICIA Donnelly acting as human recorder, note dictated by Dr.Brett Gillis. [facility] Work Phone: Evaluation note* Diagnosis Pre-operative [...] spondylosis with radiculopathy documented in this encounter [facility] note* Diagnosis Pre-operative clearance- Primary Preoperative examination, [...] spondylosis with radiculopathy [facility]* Diagnosis Pre-operative clearance- Primary Preoperative [...] (HCC) Mixed hyperlipidemia documented in this encounter [facility] note* Diagnosis Pre-operative clearance- Primary Preoperative examination, [...] neurogenic claudication present documented [facility]* Diagnosis Pre-operative clearance- Primary Preoperative [...] insulin (HCC)- Primary documented [facility]* Diagnosis Pre-operative clearance- Primary Preoperative [...] neurogenic claudication present [facility] Diagnosis Pre-operative clearance- Primary Preoperative [...] unspecified constipation type documented [facility] this [facility]* Diagnosis Pre-operative clearance- Primary Preoperative [...] idiopathic peripheral neuropathy [facility] Author Nichole Castro [facility] HospitalAuthoredJune 2024 2:56pmThe above note written by PATRICIA Donnelly acting as human recorder, note dictated by Dr. Erich Gillis. [facility] Work Phone: Evaluation note* Diagnosis Pre-operative [...] without neurogenic claudication documented [facility]* Diagnosis Pre-operative clearance- Primary Preoperative [...] without neurogenic claudication documented [facility]* Diagnosis Pre-operative clearance- Primary Preoperative [...] without neurogenic claudication [facility] Diagnosis Pre-operative clearance- Primary Preoperative examination, [...] Dizziness and giddiness documented [facility]* Diagnosis Onset Date Resolution Status Admit Date Anxiety and depression acuteSeptember 2024 9:54amConstipationacuteSeptember 2024 9:54am Elevated TSHacuteSeptember 2024 9:54amLumbar radiculopathyacuteSeptember 2024 9:54amNeuropathyacuteSeptember 2024 9:54amType 2 diabetes mellitus with complicationsacuteSeptember 2024 9:54am [facility] Work Phone: Evaluation note* Author Corina Carter [facility] HospitalAuthoredOctharrison memorial hospital 2024 10:57amAssessment: Highest weight: 191.0 lbs [...] Our exercise program was recommended with our road patcher/obesity exercise group. Handout given. Our free weekly [...] and benefits of prescribed meds discussed. Initial [id number] interview/evaluation. The patient was counseled in detail on the options for weight loss in an individual setting. [ ] minutes was spent caring for the patient, counseling/educating patient on the options for the treatment of obesity and related healthcare issues. The program's treatment goals were reviewed with the patient. Each aspect of the program was discussed with the patient. [facility] Work Phone: History general Narrative - ReportedButtercoin Other History general Narrative - ReportedButtercoin Other History general Narrative - ReportedButtercoin Other Hospital course Narrative No data available for this section [facility] Discharge instructions No data available for this section [facility] Discharge instructions Additional Instructions DR. BOOTH'S [...] to decrease risk of infection after surgery [facility] Work Phone: Progress note No data available for this section [facility] for referral (narrative)* Diagnostic Procedure Only (Routine) - ClosedSpecialtyDiagnoses / ProceduresReferred By ContactReferred To [facility] Diagnoses Screening breast examination Procedures ITALO SCREENING SCREENING MAMMOGRAPHY BI 2-VIEW BREAST [place], [place] [address] [place] [id number] [facility] [address] [place] [phone] Ref[facility] DateExpiration DateVisits RequestedVisits [id number] Auto-Generated Referral / [facility] for referral (narrative)* Outpatient Procedure (Routine) - AuthorizedSpecialtyDiagnoses / ProceduresReferred By ContactReferred To [facility] Diagnoses Dizziness Procedures ECG COMPLETE ECG ROUTINE ECG W/LEAST 12 LDS W/I&R Da King MD [address] [place] [address] [facility] [place] [address] [place] [address] Ref[facility]Status[facility] DateExpiration DateVisits RequestedVisits [id number] Auto-Generated Referral [facility] for referral (narrative)* Outpatient Procedure (Routine) - AuthorizedSpecialtyDiagnoses / ProceduresReferred By ContactReferred To [facility] Diagnoses Dizziness Procedures ECG COMPLETE ECG ROUTINE ECG W/LEAST 12 LDS W/I&R Da King MD [address] [place] [address] [place] [address] Referral IDStatusReasonStart DateExpiration DateVisits RequestedVisits [id number] Auto-Generated Referral [facility] for referral (narrative)* Outpatient Procedure (Routine) - Pending ReviewSpecialtyDiagnoses / ProceduresReferred By ContactReferred To [facility] Diagnoses Orthostatic lightheadedness POTS (postural orthostatic tachycardia syndrome) Palpitations Dizziness Mixed hyperlipidemia Procedures ECHO ECHO TTHRC R-T 2D W/WOM-MODE COMPL SPEC&COLR D Da King MD [address] [place] [address] [place] [address] Referral IDStatusKatieasonart DateExpiration DateVisits RequestedVisits [id number] Review Auto-Generated Referral * Outpatient Procedure (Routine) - Pending ReviewSpecialtyDiagnoses / Procedures Referred By ContactReferred To [facility] Diagnoses Orthostatic lightheadedness POTS (postural orthostatic tachycardia syndrome) Palpitations Dizziness Mixed hyperlipidemia Procedures ECG COMPLETE ECG ROUTINE ECG W/LEAST 12 LDS W/I[place] [address] [place] [address] [place] [address] Referral IDStatusReasonStart DateExpiration DateVisits RequestedVisits [id number] Review Auto-Generated Referral [id number] * Transition of Care (Routine) - Ref Not RequiredSpecialtyDiagnoses / Procedures Referred By ContactReferred To [facility] Procedures CARDIOVASCULAR MEDICINE OP FOLLOW UP APPT ORDER Da King MD [address] [place] [address] [facility] [place] [address] [place] [address] Ref[facility]Status[facility] DateExpiration DateVisits RequestedVisits [id number] Not Required PCP Requested Referral [facility] for referral (narrative)* Diagnostic Procedure Only (Routine) - ClosedSpecialtyDiagnoses / ProceduresReferred By ContactReferred To ContactXR IMAGING Diagnoses Spinal stenosis of lumbar region, unspecified whether neurogenic claudication present Lumbosacral spondylosis with radiculopathy Procedures XR LUMBAR MOTION 4V AP/LAT/ FLEX/EXT RADEX SPINE LUMBOSACRAL MINIMUM 4 VIEWS Steve Wagoner MD [address] [place] [address] [facility] [place] [address] Referral IDStatusReasonLogan DateExpiration DateVisits RequestedVisits [id number] Auto-Generated Referral [facility] for referral (narrative)* Diagnostic Procedure Only (Routine) - ClosedSpecialtyDiagnoses / ProceduresReferred By ContactReferred To ContactXR IMAGING Diagnoses Anterolisthesis of cervical spine Procedures XR CERV OTHER 4V AP/LAT/FLX/EXT RADEX SPINE CERVICAL 4 OR 5 VIEWS Steve Wagoner MD [address] [place] [address] [facility] [place] [address] Referral IDStatusReasonLogan DateExpiration DateVisits RequestedVisits [id number] Auto-Generated Referral / T [facility] for referral (narrative)* Diagnostic Procedure Only (Routine) - ClosedSpecialtyDiagnoses / ProceduresReferred By ContactReferred To ContactXR IMAGING Diagnoses Anterolisthesis of cervical spine Procedures XR CERV OTHER 4V AP/LAT/FLX/EXT RADEX SPINE CERVICAL 4 OR 5 VIEWS Steve Wagoner MD [address] [place] [address] [facility] [place] [address] Referral IDStatusReasonLogan DateExpiration DateVisits RequestedVisits [id number] Auto-Generated Referral / [facility] for referral (narrative)* Diagnostic Procedure Only (Routine) - New RequestSpecialtyDiagnoses / ProceduresReferred By Contact Referred To ContactXR IMAGING Diagnoses Fall, initial encounter Procedures XR HIP GENERAL 3V PELV/AP/LAT RIGHT RADEX HIP UNILATERAL WITH PELVIS 2-3 VIEWS Steve Wagoner MD [address] [place] [address] [facility] [place] [address] Ref[facility]Status[facility] DateExpiration DateVisits RequestedVisits [id number] Request Auto-Generated Referral / * Diagnostic Procedure Only (Routine) - New RequestSpecialtyDiagnoses / ProceduresReferred By ContactReferred To ContactXR IMAGING Diagnoses Fall, initial encounter Procedures XR LUMBAR GENERAL 3V AP/LAT/L5-S1 RADEX SPINE LUMBOSACRAL 2/3 VIEWS Steve Wagoner MD [address] [place] [phone] [facility] [place] [address] Referral IDStatusReasonStart DateExpiration DateVisits RequestedVisits [id number] Request Auto-Generated Referral [facility] for referral (narrative)* Diagnostic Procedure Only (Routine) - ClosedSpecialtyDiagnoses / ProceduresReferred By ContactReferred To ContactXR IMAGING Diagnoses Fall, initial encounter Procedures XR HIP GENERAL 3V PELV/AP/LAT RIGHT RADEX HIP UNILATERAL WITH PELVIS 2-3 VIEWS Steve Wagoner MD [address] [place] [address] [facility] [place] [address] Referral IDStatusReasonStart DateExpiration DateVisits RequestedVisits [id number] Auto-Generated Referral * Diagnostic Procedure Only (Routine) - ClosedSpecialtyDiagnoses / Procedures Referred By ContactReferred To ContactXR IMAGING Diagnoses Fall, initial encounter Procedures XR LUMBAR GENERAL 3V AP/LAT/L5-S1 RADEX SPINE LUMBOSACRAL 2/3 VIEWS Steve Wagoner MD [address] [place] [address] [facility] [place] [address] Referral IDStatusReasonStart DateExpiration DateVisits RequestedVisits [id number] Auto-Generated Referral [facility] for referral (narrative)No reason for referral information availableBellevue Hospital Work Phone: Reason for visit NarrativePATIENT HERE AT THE REQUEST OF DR. ERICH GILLIS FOR EVALUATION & TREATMENT OF DIVERTICULITIS., PATIENT IS ON MEDICATION AT THIS TIME. PATIENT STATES DOING BETTER BUT STILL HAVING THE PAIN. PATIENT STATES IN THE 4 MONTHS SHE HAS HAD 3 EPISODES. PATIENT HAS HAD COLONOSCOPY IN THE PST MAYBE 5 YEARS.[employer] Other [facility] for visit Narrative* Diagnostic Procedure Only (Routine) - ClosedSpecialtyDiagnoses / ProceduresReferred By ContactReferred To ContactXR IMAGING Diagnoses Spinal stenosis of lumbar region, unspecified whether neurogenic claudication present Lumbosacral spondylosis with radiculopathy Procedures XR LUMBAR MOTION 4V AP/LAT/ FLEX/EXT RADEX SPINE LUMBOSACRAL MINIMUM 4 VIEWS Steve Wagoner MD [address] [place] [address] [facility] [place] [address] Referral IDStatusReasonStart DateExpiration DateVisits RequestedVisits [id number] Auto-Generated Referral / [facility] for visit Narrative* Diagnostic Procedure Only (Routine) - ClosedSpecialtyDiagnoses / ProceduresReferred By ContactReferred To Contact X[facility] Diagnoses Anterolisthesis of cervical spine Procedures XR CERV OTHER 4V AP/LAT/FLX/EXT RADEX SPINE CERVICAL 4 OR 5 VIEWS Steve Wagoner MD [address] [place] [address] [facility] [place] [address] Referral IDStatusReasonStart DateExpiration DateVisits RequestedVisits [id number] Auto-Generated Referral / [facility] Advance Directives No Advanced Directives Records FoundDocuments [...] of hand/rewrap [facility] Hospital/ED Follow-Up I83.813 ER [facility] BITE RT HANDReason for VisitSymptomatic varicose veins of right lower extremity Varicose veins of bilateral lower extremities with pain Cough Dog bite of right hand Dog bite of right hand H/O carpal tunnel repair Chief Complaint SELF REF FOR VARICOS E VEINS rt hand dog bite covid, flu, rsv, strep- take pic of hand/rewrap [facility] Hospital/ED Follow-Up I83.813 ER [facility] BITE RT HAND GO OVER VENOUS DUPLEXReason for VisitSymptomatic varicose veins of right lower extremity Varicose veins of bilateral lower extremities with pain Cough Dog bite of right hand Dog bite of right hand Chief Complaint SELF REF FOR VARICOS E VEINS rt hand dog bite covid, flu, rsv, strep- take pic of hand/rewrap [facility] Hospital/ED Follow-Up I83.813 ER [facility] BITE RT HAND GO OVER VENOUS [...] covid/flu [place] out to car [facility] 2023 11:10am OP SP TIARA [...] [place] [facility]ARA HAND PAIN [...] 3 month f/u- December 18, 2024 9:54am [facility] (QDone) January 102024 9:53am Reason for Visit [...] Referral SpecialtyDiagnoses / ProceduresReferred By ContactReferred To ContactTHE [facility] Diagnoses 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athy (HCC) Imbalance Procedures CONSULT TO PHYSICAL THERAPY PHYSICAL THERAPY EVALUATION HIGH COMPLEX 45 MINS Sheryl Garza, MULTIMEDIA SPECIALIST.MATERIAL FLOW ENGINEER [address] [place] [address] [place] [address] Referral IDStatusReasonStart DateExpiration DateVisits RequestedVisits [id number] PCP Requested Referral Auto-Generated Referral [id number] / ProceduresReferred By ContactReferred To [facility] Diagnoses Spinal stenosis of lumbar region, unspecified whether neurogenic claudication present Lumbosacral spondylosis with radiculopathy Procedures CONSULT TO PHYSICAL THERAPY PHYSICAL THERAPY EVALUATION HIGH COMPLEX 45 MINS Steve Wagoner MD [address] [place] [address] [place] [address] Referral IDStatusReasonStart DateExpiration DateVisits RequestedVisits [id number] PCP Requested Referral Auto-Generated Referral [id number] / ProceduresReferred By ContactReferred To ContactMR IMAGING Diagnoses Spinal stenosis of lumbar region, unspecified whether neurogenic claudication present Lumbosacral spondylosis with radiculopathy Procedures MRI LUMBAR SPINE WO IVCON MRI SPINAL CANAL LUMBAR W/O CONTRAST MATERIAL Steve Wagoner MD [address] [place] [address] [facility] [place] [address] Referral IDStatusReasonStart DateExpiration DateVisits RequestedVisits [id number] Auto-Generated Referral [id number] / ProceduresReferred By ContactReferred To ContactMR IMAGING Diagnoses Spinal stenosis of cervical region Bilateral arm weakness Procedures MRI CERVICAL SPINE WO IVCON MRI SPINAL CANAL CERVICAL W/O CONTRAST MATRL Steve Wagoner MD [address] [place] [address] [facility] [place] [address] Referral IDStatusReasonStart DateExpiration DateVisits RequestedVisits [id number] Auto-Generated Referral [id number] / ProceduresReferred By ContactReferred To ContactXR IMAGING Diagnoses Spinal stenosis of lumbar region, unspecified whether neurogenic claudication present Lumbosacral spondylosis with radiculopathy Procedures XR LUMBAR MOTION 4V AP/LAT/ FLEX/EXT RADEX SPINE LUMBOSACRAL MINIMUM 4 VIEWS Steve Wagoner MD [address] [place] [address] [facility] [place] [address] Referral IDStatusReasonStart DateExpiration DateVisits RequestedVisits [id number] Auto-Generated Referral [id number] / ProceduresReferred By ContactReferred To Contact Karl Cook, MULTIMEDIA SPECIALIST.MATERIAL FLOW ENGINEER [address] [place] [address] Referral IDStatusReasonStart DateExpiration DateVisits RequestedVisits [id number] / ProceduresReferred By Contact Referred To ContactNeurology Diagnoses Labile blood pressure Abnormal saccadic eye movement Pursuit movement deficiency Postural instability Procedures CONSULT TO NEUROLOGY OFFICE/OUTPATIENT [facility] 60 MINUTES Sheryl Garza, MULTIMEDIA SPECIALIST.MATERIAL FLOW ENGINEER [address] [place] [address] Referral IDStatusReasonStart DateExpiration DateVisits RequestedVisits [id number] PCP Requested Referral [id number] / ProceduresReferred By ContactReferred To ContactNEUROLOGICAL INSTITUTE Diagnoses Left leg weakness Disturbance of skin sensation Procedures EMG(NEURO/NI) NERVE CONDUCTION STUDIES 9-10 STUDIES Sheryl Garza APRN.MATERIAL FLOW ENGINEER [address] [place] [address] [facility] [place] [address] [place] [address] Referral IDStatusReasonStart DateExpiration DateVisits RequestedVisits [id number] Auto-Generated Referral [id number] / ProceduresReferred By ContactReferred To ContactMR IMAGING Diagnoses Labile blood pressure Abnormal saccadic eye movement Pursuit movement deficiency Other symptoms and signs involving the nervous system Procedures MRI BRAIN WO/W IVCON MRI BRAIN BRAIN STEM W/O W/CONTRAST MATERIAL Sheryl Garza APRN.MATERIAL FLOW ENGINEER [address] [place] [address] [facility] [place] [address] Referral IDStatusReasonStart DateExpiration DateVisits RequestedVisits [id number] Auto-Generated Referral [id number] / ProceduresReferred By ContactReferred To Contact Lorraine Oneill MD [address] [place] [address] Referral IDStatusReasonStart DateExpiration DateVisits RequestedVisits [id number] / ProceduresReferred By Contact Referred To Contact Diagnoses Type 2 diabetes mellitus with stage 3a chronic kidney disease, without long-term current use of insulin (HCC) Abnormal weight gain Procedures ENDOCRINOLOGY DIETITIAN VISIT (MNT) MEDICAL NUTRITION ASSMT&IVNTJ INDIV EACH 15 ME MEDICAL NUTRITION ASSMT&IVNTJ INDIV EACH 15 ME MEDICAL NUTRITION ASSMT&IVNTJ INDIV EACH 15 ME MEDICAL NUTRITION ASSMT&IVNTJ INDIV EACH 15 ME Lorraine Oneill MD [address] [place] [id number] Referral IDStatusReasonStart DateExpiration DateVisits RequestedVisits [id number] PCP Requested Referral [id number] / ProceduresReferred By ContactReferred To Contact Procedures CARDIOVASCULAR MEDICINE OP FOLLOW UP APPT ORDER Andrea Lees MD [address] [place] [address] Referral IDStatusReasonStart DateExpiration DateVisits RequestedVisits [id number] Not Required PCP Requested Referral [id number] / ProceduresReferred By ContactReferred To ContactPROMEDICA [facility] Diagnoses Labile blood pressure Near syncope Procedures ECHO ECHO TTHRC R-T 2D W/WOM-MODE COMPL SPEC&COLR D Andrea Lees MD [address] [place] [address] [place] [address] Referral IDStatusReasonStophelia DateExpiration DateVisits RequestedVisits [id number] Auto-Generated Referral Reason Please refer patient to Dr Bentley for left foot pain, previous fracture Diagnosis 1 Left foot pain (M79. 672) Referral Organization [facility] Referring Provider First Name [...] or prosecute any alcohol or drug abuse patient.[facility] CenterIn the event this information is protected by the Federal Confidentiality of Alcohol and Drug Abuse Patient Records regulations: The Federal rules restrict any use of the information to criminally investigate or prosecute any alcohol or drug abuse patient.[facility] CenterIn the event this information is protected by the Federal Confidentiality of Alcohol and Drug Abuse Patient Records regulations: The Federal rules restrict any use of the information to criminally investigate or prosecute any alcohol or drug abuse patient.[facility] CenterIn the event this information is protected by the Federal Confidentiality of Alcohol and Drug Abuse Patient Records regulations: The Federal rules restrict any use of the information to criminally investigate or prosecute any alcohol or drug abuse patient.[facility] CenterIn the event this information is protected by the Federal Confidentiality of Alcohol and Drug Abuse Patient Records regulations: The Federal rules restrict any use of the information to criminally investigate or prosecute any alcohol or drug abuse patient.[facility] CenterIn the event this information is protected by the Federal Confidentiality of Alcohol and Drug Abuse Patient Records regulations: The Federal rules restrict any use of the information to criminally investigate or prosecute any alcohol or drug abuse patient.[facility] CenterIn the event this information is protected by the Federal Confidentiality of Alcohol and Drug Abuse Patient Records regulations: The Federal rules restrict any use of the information to criminally investigate or prosecute any alcohol or drug abuse patient.[facility] CenterIn the event this information is protected by the Federal Confidentiality of Alcohol and Drug Abuse Patient Records regulations: The Federal rules restrict any use of the information to criminally investigate or prosecute any alcohol or drug abuse patient.[facility] CenterIn the event this information is protected by the Federal Confidentiality of Alcohol and Drug Abuse Patient Records regulations: The Federal rules restrict any use of the information to criminally investigate or prosecute any alcohol or drug abuse patient.[facility] CenterIn the event this information is protected by the Federal Confidentiality of Alcohol and Drug Abuse Patient Records regulations: The Federal rules restrict any use of the information to criminally investigate or prosecute any alcohol or drug abuse patient.[facility] CenterIn the event this information is protected by the Federal Confidentiality of Alcohol and Drug Abuse Patient Records regulations: The Federal rules restrict any use of the information to criminally investigate or prosecute any alcohol or drug abuse patient.[facility] CenterIn the event this information is protected by the Federal Confidentiality of Alcohol and Drug Abuse Patient Records regulations: The Federal rules restrict any use of the information to criminally investigate or prosecute any alcohol or drug abuse patient.[facility] CenterIn the event this information is protected by the Federal Confidentiality of Alcohol and Drug Abuse Patient Records regulations: The Federal rules restrict any use of the information to criminally investigate or prosecute any alcohol or drug abuse patient.[facility] CenterIn the event this information is protected by the Federal Confidentiality of Alcohol and Drug Abuse Patient Records regulations: The Federal rules restrict any use of the information to criminally investigate or prosecute any alcohol or drug abuse patient.[facility] CenterIn the event this information is protected by the Federal Confidentiality of Alcohol and Drug Abuse Patient Records regulations: The Federal rules restrict any use of the information to criminally investigate or prosecute any alcohol or drug abuse patient.[facility] CenterIn the event this information is protected by the Federal Confidentiality of Alcohol and Drug Abuse Patient Records regulations: The Federal rules restrict any use of the information to criminally investigate or prosecute any alcohol or drug abuse patient.[facility] CenterIn the event this information is protected by the Federal Confidentiality of Alcohol and Drug Abuse Patient Records regulations: The Federal rules restrict any use of the information to criminally investigate or prosecute any alcohol or drug abuse patient.[facility] CenterIn the event this information is protected by the Federal Confidentiality of Alcohol and Drug Abuse Patient Records regulations: The Federal rules restrict any use of the information to criminally investigate or prosecute any alcohol or drug abuse patient.[facility] CenterIn the event this information is protected by the Federal Confidentiality of Alcohol and Drug Abuse Patient Records regulations: The Federal rules restrict any use of the information to criminally investigate or prosecute any alcohol or drug abuse patient.[facility] CenterIn the event this information is protected by the Federal Confidentiality of Alcohol and Drug Abuse Patient Records regulations: The Federal rules restrict any use of the information to criminally investigate or prosecute any alcohol or drug abuse patient.[facility] CenterIn the event this information is protected by the Federal Confidentiality of Alcohol and Drug Abuse Patient Records regulations: The Federal rules restrict any use of the information to criminally investigate or prosecute any alcohol or drug abuse patient.[facility] CenterIn the event this information is protected by the Federal Confidentiality of Alcohol and Drug Abuse Patient Records regulations: The Federal rules restrict any use of the information to criminally investigate or prosecute any alcohol or drug abuse patient.[facility] CenterIn the event this information is protected by the Federal Confidentiality of Alcohol and Drug Abuse Patient Records regulations: The Federal rules restrict any use of the information to criminally investigate or prosecute any alcohol or drug abuse patient.[facility] CenterIn the event this information is protected by the Federal Confidentiality of Alcohol and Drug Abuse Patient Records regulations: The Federal rules restrict any use of the information to criminally investigate or prosecute any alcohol or drug abuse patient.[facility] CenterIn the event this information is protected by the Federal Confidentiality of Alcohol and Drug Abuse Patient Records regulations: The Federal rules restrict any use of the information to criminally investigate or prosecute any alcohol or drug abuse patient.[facility] CenterIn the event this information is protected by the Federal Confidentiality of Alcohol and Drug Abuse Patient Records regulations: The Federal rules restrict any use of the information to criminally investigate or prosecute any alcohol or drug abuse patient.[facility] CenterIn the event this information is protected by the Federal Confidentiality of Alcohol and Drug Abuse Patient Records regulations: The Federal rules restrict any use of the information to criminally investigate or prosecute any alcohol or drug abuse patient.[facility] CenterIn the event this information is protected by the Federal Confidentiality of Alcohol and Drug Abuse Patient Records regulations: The Federal rules restrict any use of the information to criminally investigate or prosecute any alcohol or drug abuse patient.[facility] CenterIn the event this information is protected by the Federal Confidentiality of Alcohol and Drug Abuse Patient Records regulations: The Federal rules restrict any use of the information to criminally investigate or prosecute any alcohol or drug abuse patient.[facility] CenterIn the event this information is protected by the Federal Confidentiality of Alcohol and Drug Abuse Patient Records regulations: The Federal rules restrict any use of the information to criminally investigate or prosecute any alcohol or drug abuse patient.[facility] CenterIn the event this information is protected by the Federal Confidentiality of Alcohol and Drug Abuse Patient Records regulations: The Federal rules restrict any use of the information to criminally investigate or prosecute any alcohol or drug abuse patient.[facility] CenterIn the event this information is protected by the Federal Confidentiality of Alcohol and Drug Abuse Patient Records regulations: The Federal rules restrict any use of the information to criminally investigate or prosecute any alcohol or drug abuse patient.[facility] CenterIn the event this information is protected by the Federal Confidentiality of Alcohol and Drug Abuse Patient Records regulations: The Federal rules restrict any use of the information to criminally investigate or prosecute any alcohol or drug abuse patient.[facility] CenterIn the event this information is protected by the Federal Confidentiality of Alcohol and Drug Abuse Patient Records regulations: The Federal rules restrict any use of the information to criminally investigate or prosecute any alcohol or drug abuse patient.[facility] CenterIn the event this information is protected by the Federal Confidentiality of Alcohol and Drug Abuse Patient Records regulations: The Federal rules restrict any use of the information to criminally investigate or prosecute any alcohol or drug abuse patient.[facility] CenterIn the event this information is protected by the Federal Confidentiality of Alcohol and Drug Abuse Patient Records regulations: The Federal rules restrict any use of the information to criminally investigate or prosecute any alcohol or drug abuse patient.[facility] CenterIn the event this information is protected by the Federal Confidentiality of Alcohol and Drug Abuse Patient Records regulations: The Federal rules restrict any use of the information to criminally investigate or prosecute any alcohol or drug abuse patient.[facility] CenterIn the event this information is protected by the Federal Confidentiality of Alcohol and Drug Abuse Patient Records regulations: The Federal rules restrict any use of the information to criminally investigate or prosecute any alcohol or drug abuse patient.[facility] CenterIn the event this information is protected by the Federal Confidentiality of Alcohol and Drug Abuse Patient Records regulations: The Federal rules restrict any use of the information to criminally investigate or prosecute any alcohol or drug abuse patient.[facility] CenterIn the event this information is protected by the Federal Confidentiality of Alcohol and Drug Abuse Patient Records regulations: The Federal rules restrict any use of the information to criminally investigate or prosecute any alcohol or drug abuse patient.[facility] CenterIn the event this information is protected by the Federal Confidentiality of Alcohol and Drug Abuse Patient Records regulations: The Federal rules restrict any use of the information to criminally investigate or prosecute any alcohol or drug abuse patient.[facility] CenterIn the event this information is protected by the Federal Confidentiality of Alcohol and Drug Abuse Patient Records regulations: The Federal rules restrict any use of the information to criminally investigate or prosecute any alcohol or drug abuse patient.[facility] CenterIn the event this information is protected by the Federal Confidentiality of Alcohol and Drug Abuse Patient Records regulations: The Federal rules restrict any use of the information to criminally investigate or prosecute any alcohol or drug abuse patient.[facility] CenterIn the event this information is protected by the Federal Confidentiality of Alcohol and Drug Abuse Patient Records regulations: The Federal rules restrict any use of the information to criminally investigate or prosecute any alcohol or drug abuse patient.[facility] CenterIn the event this information is protected by the Federal Confidentiality of Alcohol and Drug Abuse Patient Records regulations: The Federal rules restrict any use of the information to criminally investigate or prosecute any alcohol or drug abuse patient.[facility] CenterIn the event this information is protected by the Federal Confidentiality of Alcohol and Drug Abuse Patient Records regulations: The Federal rules restrict any use of the information to criminally investigate or prosecute any alcohol or drug abuse patient.[facility] CenterIn the event this information is protected by the Federal Confidentiality of Alcohol and Drug Abuse Patient Records regulations: The Federal rules restrict any use of the information to criminally investigate or prosecute any alcohol or drug abuse patient.[facility] CenterIn the event this information is protected by the Federal Confidentiality of Alcohol and Drug Abuse Patient Records regulations: The Federal rules restrict any use of the information to criminally investigate or prosecute any alcohol or drug abuse patient.[facility] CenterIn the event this information is protected by the Federal Confidentiality of Alcohol and Drug Abuse Patient Records regulations: The Federal rules restrict any use of the information to criminally investigate or prosecute any alcohol or drug abuse patient.[facility] CenterIn the event this information is protected by the Federal Confidentiality of Alcohol and Drug Abuse Patient Records regulations: The Federal rules restrict any use of the information to criminally investigate or prosecute any alcohol or drug abuse patient.[facility] CenterIn the event this information is protected by the Federal Confidentiality of Alcohol and Drug Abuse Patient Records regulations: The Federal rules restrict any use of the information to criminally investigate or prosecute any alcohol or drug abuse patient.[facility] CenterIn the event this information is protected by the Federal Confidentiality of Alcohol and Drug Abuse Patient Records regulations: The Federal rules restrict any use of the information to criminally investigate or prosecute any alcohol or drug abuse patient.[facility] CenterIn the event this information is protected by the Federal Confidentiality of Alcohol and Drug Abuse Patient Records regulations: The Federal rules restrict any use of the information to criminally investigate or prosecute any alcohol or drug abuse patient.[facility] CenterIn the event this information is protected by the Federal Confidentiality of Alcohol and Drug Abuse Patient Records regulations: The Federal rules restrict any use of the information to criminally investigate or prosecute any alcohol or drug abuse patient.[facility] CenterIn the event this information is protected by the Federal Confidentiality of Alcohol and Drug Abuse Patient Records regulations: The Federal rules restrict any use of the information to criminally investigate or prosecute any alcohol or drug abuse patient.[facility] CenterIn the event this information is protected by the Federal Confidentiality of Alcohol and Drug Abuse Patient Records regulations: The Federal rules restrict any use of the information to criminally investigate or prosecute any alcohol or drug abuse patient.[facility] CenterIn the event this information is protected by the Federal Confidentiality of Alcohol and Drug Abuse Patient Records regulations: The Federal rules restrict any use of the information to criminally investigate or prosecute any alcohol or drug abuse patient.[facility] CenterIn the event this information is protected by the Federal Confidentiality of Alcohol and Drug Abuse Patient Records regulations: The Federal rules restrict any use of the information to criminally investigate or prosecute any alcohol or drug abuse patient.[facility] CenterIn the event this information is protected by the Federal Confidentiality of Alcohol and Drug Abuse Patient Records regulations: The Federal rules restrict any use of the information to criminally investigate or prosecute any alcohol or drug abuse patient.[facility] CenterIn the event this information is protected by the Federal Confidentiality of Alcohol and Drug Abuse Patient Records regulations: The Federal rules restrict any use of the information to criminally investigate or prosecute any alcohol or drug abuse patient.[facility] CenterIn the event this information is protected by the Federal Confidentiality of Alcohol and Drug Abuse Patient Records regulations: The Federal rules restrict any use of the information to criminally investigate or prosecute any alcohol or drug abuse patient.[facility] CenterIn the event this information is protected by the Federal Confidentiality of Alcohol and Drug Abuse Patient Records regulations: The Federal rules restrict any use of the information to criminally investigate or prosecute any alcohol or drug abuse patient.[facility] CenterIn the event this information is protected by the Federal Confidentiality of Alcohol and Drug Abuse Patient Records regulations: The Federal rules restrict any use of the information to criminally investigate or prosecute any alcohol or drug abuse patient.[facility] CenterIn the event this information is protected by the Federal Confidentiality of Alcohol and Drug Abuse Patient Records regulations: The Federal rules restrict any use of the information to criminally investigate or prosecute any alcohol or drug abuse patient.[facility] CenterIn the event this information is protected by the Federal Confidentiality of Alcohol and Drug Abuse Patient Records regulations: The Federal rules restrict any use of the information to criminally investigate or prosecute any alcohol or drug abuse patient.[facility] CenterIn the event this information is protected by the Federal Confidentiality of Alcohol and Drug Abuse Patient Records regulations: The Federal rules restrict any use of the information to criminally investigate or prosecute any alcohol or drug abuse patient.[facility] CenterIn the event this information is protected by the Federal Confidentiality of Alcohol and Drug Abuse Patient Records regulations: The Federal rules restrict any use of the information to criminally investigate or prosecute any alcohol or drug abuse patient.[facility] CenterIn the event this information is protected by the Federal Confidentiality of Alcohol and Drug Abuse Patient Records regulations: The Federal rules restrict any use of the information to criminally investigate or prosecute any alcohol or drug abuse patient.[facility] CenterIn the event this information is protected by the Federal Confidentiality of Alcohol and Drug Abuse Patient Records regulations: The Federal rules restrict any use of the information to criminally investigate or prosecute any alcohol or drug abuse patient.[facility] CenterIn the event this information is protected by the Federal Confidentiality of Alcohol and Drug Abuse Patient Records regulations: The Federal rules restrict any use of the information to criminally investigate or prosecute any alcohol or drug abuse patient.[facility] CenterIn the event this information is protected by the Federal Confidentiality of Alcohol and Drug Abuse Patient Records regulations: The Federal rules restrict any use of the information to criminally investigate or prosecute any alcohol or drug abuse patient.[facility] CenterIn the event this information is protected by the Federal Confidentiality of Alcohol and Drug Abuse Patient Records regulations: The Federal rules restrict any use of the information to criminally investigate or prosecute any alcohol or drug abuse patient.[facility] CenterIn the event this information is protected by the Federal Confidentiality of Alcohol and Drug Abuse Patient Records regulations: The Federal rules restrict any use of the information to criminally investigate or prosecute any alcohol or drug abuse patient.[facility] CenterIn the event this information is protected by the Federal Confidentiality of Alcohol and Drug Abuse Patient Records regulations: The Federal rules restrict any use of the information to criminally investigate or prosecute any alcohol or drug abuse patient.[facility] CenterIn the event this information is protected by the Federal Confidentiality of Alcohol and Drug Abuse Patient Records regulations: The Federal rules restrict any use of the information to criminally investigate or prosecute any alcohol or drug abuse patient.[facility] CenterIn the event this information is protected by the Federal Confidentiality of Alcohol and Drug Abuse Patient Records regulations: The Federal rules restrict any use of the information to criminally investigate or prosecute any alcohol or drug abuse patient.[facility] CenterIn the event this information is protected by the Federal Confidentiality of Alcohol and Drug Abuse Patient Records regulations: The Federal rules restrict any use of the information to criminally investigate or prosecute any alcohol or drug abuse patient.[facility] CenterIn the event this information is protected by the Federal Confidentiality of Alcohol and Drug Abuse Patient Records regulations: The Federal rules restrict any use of the information to criminally investigate or prosecute any alcohol or drug abuse patient.[facility] CenterIn the event this information is protected by the Federal Confidentiality of Alcohol and Drug Abuse Patient Records regulations: The Federal rules restrict any use of the information to criminally investigate or prosecute any alcohol or drug abuse patient.[facility] CenterIn the event this information is protected by the Federal Confidentiality of Alcohol and Drug Abuse Patient Records regulations: The Federal rules restrict any use of the information to criminally investigate or prosecute any alcohol or drug abuse patient.[facility] CenterIn the event this information is protected by the Federal Confidentiality of Alcohol and Drug Abuse Patient Records regulations: The Federal rules restrict any use of the information to criminally investigate or prosecute any alcohol or drug abuse patient.[facility] CenterIn the event this information is protected by the Federal Confidentiality of Alcohol and Drug Abuse Patient Records regulations: The Federal rules restrict any use of the information to criminally investigate or prosecute any alcohol or drug abuse patient.[facility] CenterIn the event this information is protected by the Federal Confidentiality of Alcohol and Drug Abuse Patient Records regulations: The Federal rules restrict any use of the information to criminally investigate or prosecute any alcohol or drug abuse patient.[facility] CenterIn the event this information is protected by the Federal Confidentiality of Alcohol and Drug Abuse Patient Records regulations: The Federal rules restrict any use of the information to criminally investigate or prosecute any alcohol or drug abuse patient.[facility] CenterIn the event this information is protected by the Federal Confidentiality of Alcohol and Drug Abuse Patient Records regulations: The Federal rules restrict any use of the information to criminally investigate or prosecute any alcohol or drug abuse patient.[facility] CenterIn the event this information is protected by the Federal Confidentiality of Alcohol and Drug Abuse Patient Records regulations: The Federal rules restrict any use of the information to criminally investigate or prosecute any alcohol or drug abuse patient.[facility] CenterIn the event this information is protected by the Federal Confidentiality of Alcohol and Drug Abuse Patient Records regulations: The Federal rules restrict any use of the information to criminally investigate or prosecute any alcohol or drug abuse patient.[facility] CenterIn the event this information is protected by the Federal Confidentiality of Alcohol and Drug Abuse Patient Records regulations: The Federal rules restrict any use of the information to criminally investigate or prosecute any alcohol or drug abuse patient.[facility] CenterIn the event this information is protected by the Federal Confidentiality of Alcohol and Drug Abuse Patient Records regulations: The Federal rules restrict any use of the information to criminally investigate or prosecute any alcohol or drug abuse patient.[facility] CenterIn the event this information is protected by the Federal Confidentiality of Alcohol and Drug Abuse Patient Records regulations: The Federal rules restrict any use of the information to criminally investigate or prosecute any alcohol or drug abuse patient.[facility] CenterIn the event this information is protected by the Federal Confidentiality of Alcohol and Drug Abuse Patient Records regulations: The Federal rules restrict any use of the information to criminally investigate or prosecute any alcohol or drug abuse patient.[facility] CenterIn the event this information is protected by the Federal Confidentiality of Alcohol and Drug Abuse Patient Records regulations: The Federal rules restrict any use of the information to criminally investigate or prosecute any alcohol or drug abuse patient.[facility] CenterIn the event this information is protected by the Federal Confidentiality of Alcohol and Drug Abuse Patient Records regulations: The Federal rules restrict any use of the information to criminally investigate or prosecute any alcohol or drug abuse patient.[facility] CenterIn the event this information is protected by the Federal Confidentiality of Alcohol and Drug Abuse Patient Records regulations: The Federal rules restrict any use of the information to criminally investigate or prosecute any alcohol or drug abuse patient.[facility] CenterIn the event this information is protected by the Federal Confidentiality of Alcohol and Drug Abuse Patient Records regulations: The Federal rules restrict any use of the information to criminally investigate or prosecute any alcohol or drug abuse patient.[facility] CenterIn the event this information is protected by the Federal Confidentiality of Alcohol and Drug Abuse Patient Records regulations: The Federal rules restrict any use of the information to criminally investigate or prosecute any alcohol or drug abuse patient.[facility] CenterIn the event this information is protected by the Federal Confidentiality of Alcohol and Drug Abuse Patient Records regulations: The Federal rules restrict any use of the information to criminally investigate or prosecute any alcohol or drug abuse patient.[facility] CenterIn the event this information is protected by the Federal Confidentiality of Alcohol and Drug Abuse Patient Records regulations: The Federal rules restrict any use of the information to criminally investigate or prosecute any alcohol or drug abuse patient.[facility] CenterIn the event this information is protected by the Federal Confidentiality of Alcohol and Drug Abuse Patient Records regulations: The Federal rules restrict any use of the information to criminally investigate or prosecute any alcohol or drug abuse patient.[facility] CenterIn the event this information is protected by the Federal Confidentiality of Alcohol and Drug Abuse Patient Records regulations: The Federal rules restrict any use of the information to criminally investigate or prosecute any alcohol or drug abuse patient.[facility] CenterIn the event this information is protected by the Federal Confidentiality of Alcohol and Drug Abuse Patient Records regulations: The Federal rules restrict any use of the information to criminally investigate or prosecute any alcohol or drug abuse patient.[facility] CenterIn the event this information is protected by the Federal Confidentiality of Alcohol and Drug Abuse Patient Records regulations: The Federal rules restrict any use of the information to criminally investigate or prosecute any alcohol or drug abuse patient.[facility] CenterIn the event this information is protected by the Federal Confidentiality of Alcohol and Drug Abuse Patient Records regulations: The Federal rules restrict any use of the information to criminally investigate or prosecute any alcohol or drug abuse patient.[facility] CenterIn the event this information is protected by the Federal Confidentiality of Alcohol and Drug Abuse Patient Records regulations: The Federal rules restrict any use of the information to criminally investigate or prosecute any alcohol or drug abuse patient.[facility] CenterIn the event this information is protected by the Federal Confidentiality of Alcohol and Drug Abuse Patient Records regulations: The Federal rules restrict any use of the information to criminally investigate or prosecute any alcohol or drug abuse patient.[facility] CenterIn the event this information is protected by the Federal Confidentiality of Alcohol and Drug Abuse Patient Records regulations: The Federal rules restrict any use of the information to criminally investigate or prosecute any alcohol or drug abuse patient.[facility] CenterIn the event this information is protected by the Federal Confidentiality of Alcohol and Drug Abuse Patient Records regulations: The Federal rules restrict any use of the information to criminally investigate or prosecute any alcohol or drug abuse patient.[facility] CenterIn the event this information is protected by the Federal Confidentiality of Alcohol and Drug Abuse Patient Records regulations: The Federal rules restrict any use of the information to criminally investigate or prosecute any alcohol or drug abuse patient.[facility] CenterIn the event this information is protected by the Federal Confidentiality of Alcohol and Drug Abuse Patient Records regulations: The Federal rules restrict any use of the information to criminally investigate or prosecute any alcohol or drug abuse patient.[facility] CenterIn the event this information is protected by the Federal Confidentiality of Alcohol and Drug Abuse Patient Records regulations: The Federal rules restrict any use of the information to criminally investigate or prosecute any alcohol or drug abuse patient.[facility] CenterIn the event this information is protected by the Federal Confidentiality of Alcohol and Drug Abuse Patient Records regulations: The Federal rules restrict any use of the information to criminally investigate or prosecute any alcohol or drug abuse patient.[facility] [facility] CenterIn the event this information is protected by the Federal Confidentiality of Alcohol and Drug Abuse Patient Records regulations: The Federal rules restrict any use of the information to criminally investigate or prosecute any alcohol or drug abuse patient.[facility] CenterIn the event this information is protected by the Federal Confidentiality of Alcohol and Drug Abuse Patient Records regulations: The Federal rules restrict any use of the information to criminally investigate or prosecute any alcohol or drug abuse patient.[facility] CenterIn the event this information is protected by the Federal Confidentiality of Alcohol and Drug Abuse Patient Records regulations: The Federal rules restrict any use of the information to criminally investigate or prosecute any alcohol or drug abuse patient.[facility] CenterIn the event this information is protected by the Federal Confidentiality of Alcohol and Drug Abuse Patient Records regulations: The Federal rules restrict any use of the information to criminally investigate or prosecute any alcohol or drug abuse patient.[facility] CenterIn the event this information is protected by the Federal Confidentiality of Alcohol and Drug Abuse Patient Records regulations: The Federal rules restrict any use of the information to criminally investigate or prosecute any alcohol or drug abuse patient.[facility] CenterIn the event this information is protected by the Federal Confidentiality of Alcohol and Drug Abuse Patient Records regulations: The Federal rules restrict any use of the information to criminally investigate or prosecute any alcohol or drug abuse patient.[facility] CenterIn the event this information is protected by the Federal Confidentiality of Alcohol and Drug Abuse Patient Records regulations: The Federal rules restrict any use of the information to criminally investigate or prosecute any alcohol or drug abuse patient.[facility] CenterIn the event this information is protected by the Federal Confidentiality of Alcohol and Drug Abuse Patient Records regulations: The Federal rules restrict any use of the information to criminally investigate or prosecute any alcohol or drug abuse patient.[facility] CenterIn the event this information is protected by the Federal Confidentiality of Alcohol and Drug Abuse Patient Records regulations: The Federal rules restrict any use of the information to criminally investigate or prosecute any alcohol or drug abuse patient.[facility] CenterIn the event this information is protected by the Federal Confidentiality of Alcohol and Drug Abuse Patient Records regulations: The Federal rules restrict any use of the information to criminally investigate or prosecute any alcohol or drug abuse patient.[facility] CenterIn the event this information is protected by the Federal Confidentiality of Alcohol and Drug Abuse Patient Records regulations: The Federal rules restrict any use of the information to criminally investigate or prosecute any alcohol or drug abuse patient.[facility] CenterIn the event this information is protected by the Federal Confidentiality of Alcohol and Drug Abuse Patient Records regulations: The Federal rules restrict any use of the information to criminally investigate or prosecute any alcohol or drug abuse patient.[facility] CenterIn the event this information is protected by the Federal Confidentiality of Alcohol and Drug Abuse Patient Records regulations: The Federal rules restrict any use of the information to criminally investigate or prosecute any alcohol or drug abuse patient.[facility] CenterIn the event this information is protected by the Federal Confidentiality of Alcohol and Drug Abuse Patient Records regulations: The Federal rules restrict any use of the information to criminally investigate or prosecute any alcohol or drug abuse patient.[facility] CenterIn the event this information is protected by the Federal Confidentiality of Alcohol and Drug Abuse Patient Records regulations: The Federal rules restrict any use of the information to criminally investigate or prosecute any alcohol or drug abuse patient.[facility] CenterIn the event this information is protected by the Federal Confidentiality of Alcohol and Drug Abuse Patient Records regulations: The Federal rules restrict any use of the information to criminally investigate or prosecute any alcohol or drug abuse patient.[facility] CenterIn the event this information is protected by the Federal Confidentiality of Alcohol and Drug Abuse Patient Records regulations: The Federal rules restrict any use of the information to criminally investigate or prosecute any alcohol or drug abuse patient.[facility] CenterIn the event this information is protected by the Federal Confidentiality of Alcohol and Drug Abuse Patient Records regulations: The Federal rules restrict any use of the information to criminally investigate or prosecute any alcohol or drug abuse patient.[facility] CenterIn the event this information is protected by the Federal Confidentiality of Alcohol and Drug Abuse Patient Records regulations: The Federal rules restrict any use of the information to criminally investigate or prosecute any alcohol or drug abuse patient.[facility] CenterIn the event this information is protected by the Federal Confidentiality of Alcohol and Drug Abuse Patient Records regulations: The Federal rules restrict any use of the information to criminally investigate or prosecute any alcohol or drug abuse patient.[facility] CenterIn the event this information is protected by the Federal Confidentiality of Alcohol and Drug Abuse Patient Records regulations: The Federal rules restrict any use of the information to criminally investigate or prosecute any alcohol or drug abuse patient.[facility] CenterIn the event this information is protected by the Federal Confidentiality of Alcohol and Drug Abuse Patient Records regulations: The Federal rules restrict any use of the information to criminally investigate or prosecute any alcohol or drug abuse patient.[facility] CenterIn the event this information is protected by the Federal Confidentiality of Alcohol and Drug Abuse Patient Records regulations: The Federal rules restrict any use of the information to criminally investigate or prosecute any alcohol or drug abuse patient.[facility] CenterIn the event this information is protected by the Federal Confidentiality of Alcohol and Drug Abuse Patient Records regulations: The Federal rules restrict any use of the information to criminally investigate or prosecute any alcohol or drug abuse patient.[facility] CenterIn the event this information is protected by the Federal Confidentiality of Alcohol and Drug Abuse Patient Records regulations: The Federal rules restrict any use of the information to criminally investigate or prosecute any alcohol or drug abuse patient.[facility] CenterIn the event this information is protected by the Federal Confidentiality of Alcohol and Drug Abuse Patient Records regulations: The Federal rules restrict any use of the information to criminally investigate or prosecute any alcohol or drug abuse patient.[facility] CenterIn the event this information is protected by the Federal Confidentiality of Alcohol and Drug Abuse Patient Records regulations: The Federal rules restrict any use of the information to criminally investigate or prosecute any alcohol or drug abuse patient.[facility] CenterIn the event this information is protected by the Federal Confidentiality of Alcohol and Drug Abuse Patient Records regulations: The Federal rules restrict any use of the information to criminally investigate or prosecute any alcohol or drug abuse patient.[facility] CenterIn the event this information is protected by the Federal Confidentiality of Alcohol and Drug Abuse Patient Records regulations: The Federal rules restrict any use of the information to criminally investigate or prosecute any alcohol or drug abuse patient.[facility] CenterIn the event this information is protected by the Federal Confidentiality of Alcohol and Drug Abuse Patient Records regulations: The Federal rules restrict any use of the information to criminally investigate or prosecute any alcohol or drug abuse patient.[facility] CenterIn the event this information is protected by the Federal Confidentiality of Alcohol and Drug Abuse Patient Records regulations: The Federal rules restrict any use of the information to criminally investigate or prosecute any alcohol or drug abuse patient.[facility] CenterIn the event this information is protected by the Federal Confidentiality of Alcohol and Drug Abuse Patient Records regulations: The Federal rules restrict any use of the information to criminally investigate or prosecute any alcohol or drug abuse patient.[facility] CenterIn the event this information is protected by the Federal Confidentiality of Alcohol and Drug Abuse Patient Records regulations: The Federal rules restrict any use of the information to criminally investigate or prosecute any alcohol or drug abuse patient.[facility] CenterIn the event this information is protected by the Federal Confidentiality of Alcohol and Drug Abuse Patient Records regulations: The Federal rules restrict any use of the information to criminally investigate or prosecute any alcohol or drug abuse patient.[facility] CenterIn the event this information is protected by the Federal Confidentiality of Alcohol and Drug Abuse Patient Records regulations: The Federal rules restrict any use of the information to criminally investigate or prosecute any alcohol or drug abuse patient.[facility] CenterIn the event this information is protected by the Federal Confidentiality of Alcohol and Drug Abuse Patient Records regulations: The Federal rules restrict any use of the information to criminally investigate or prosecute any alcohol or drug abuse patient.[facility] CenterIn the event this information is protected by the Federal Confidentiality of Alcohol and Drug Abuse Patient Records regulations: The Federal rules restrict any use of the information to criminally investigate or prosecute any alcohol or drug abuse patient.[facility] CenterIn the event this information is protected by the Federal Confidentiality of Alcohol and Drug Abuse Patient Records regulations: The Federal rules restrict any use of the information to criminally investigate or prosecute any alcohol or drug abuse patient.[facility] CenterIn the event this information is protected by the Federal Confidentiality of Alcohol and Drug Abuse Patient Records regulations: The Federal rules restrict any use of the information to criminally investigate or prosecute any alcohol or drug abuse patient.[facility] CenterIn the event this information is protected by the Federal Confidentiality of Alcohol and Drug Abuse Patient Records regulations: The Federal rules restrict any use of the information to criminally investigate or prosecute any alcohol or drug abuse patient.[facility] CenterIn the event this information is protected by the Federal Confidentiality of Alcohol and Drug Abuse Patient Records regulations: The Federal rules restrict any use of the information to criminally investigate or prosecute any alcohol or drug abuse patient.[facility] CenterIn the event this information is protected by the Federal Confidentiality of Alcohol and Drug Abuse Patient Records regulations: The Federal rules restrict any use of the information to criminally investigate or prosecute any alcohol or drug abuse patient.[facility] CenterIn the event this information is protected by the Federal Confidentiality of Alcohol and Drug Abuse Patient Records regulations: The Federal rules restrict any use of the information to criminally investigate or prosecute any alcohol or drug abuse patient.[facility] CenterIn the event this information is protected by the Federal Confidentiality of Alcohol and Drug Abuse Patient Records regulations: The Federal rules restrict any use of the information to criminally investigate or prosecute any alcohol or drug abuse patient.[facility] CenterIn the event this information is protected by the Federal Confidentiality of Alcohol and Drug Abuse Patient Records regulations: The Federal rules restrict any use of the information to criminally investigate or prosecute any alcohol or drug abuse patient.[facility] Reason for Visit (unrecogniz ed section and content) ReasonCommentsPT Progress NoteSpecialtyDiagnoses / ProceduresReferred By Contact Referred To ContactREHAB AND SPORTS THERAPY INS Diagnoses Spinal stenosis of lumbar region, unspecified whether neurogenic claudication present Lumbosacral spondylosis with radiculopathy Procedures CONSULT TO PHYSICAL THERAPY PHYSICAL THERAPY EVALUATION HIGH COMPLEX 45 MINS Steve Wagoner MD [address] [place] [address] [facility] [place] [address] [place] [address] Referral IDStatusReasonStart DateExpiration DateVisits RequestedVisits [id number] PCP Requested Referral Auto-Generated Referral [id number] TherapyReasonCommentsImportant Medication Instruction for ANS w/o TILT QSART 09/16ReasonCommentsCare Coordinator - OtherReasonCommentsDizzinessReasonCommentsNew PatientReasonCommentsRadiology MammogramSpecialtyDiagnoses / ProceduresReferred By ContactReferred To ContactBR IMAGING Diagnoses Screening breast examination Procedures ITALO SCREENING SCREENING MAMMOGRAPHY BI 2-[place] [address] [place] [id number] [facility] [address] [place] [phone] Referral IDStatusReasonStart DateExpiration DateVisits RequestedVisits [id number] Auto-Generated Referral [id number]zyJktfcxzlFbddbqKoeunsjhaip StockingsReasonCommentsSyncopeReasonCommentsFormsHuronReasonCommentsEstablished PatientReasonCommentshuron PodiatryReasonCommentsMed Change RequestReason CommentsFollow UpReasonCommentsRite [...] BREAST INC CAD Marizol Babin MD [address] [place] [address] [facility] [address] [place] [phone] Referral IDStatusReasonStart DateExpiration DateVisits RequestedVisits [id number] Auto-Generated Referral [id number] / ProceduresReferred By ContactReferred To ContactPhysical Therapy Diagnoses Pain in right foot Procedures [place] PHYSICAL THERAPY EVALUATION LOW COMPLEX 20 MINS Reji Bentley MD [address] [place] [address] [place] [address] Tameka Krause, PT [address] [place] [address] Referral IDStatusReasonStart DateExpiration DateVisits RequestedVisits [id number] Consult and Treat [id number] UpReasonCommentsResearchIRB # [id number] 2 Study to Evaluate the Safety and Efficacy of RTA 901 in Patients with Diabetic Peripheral Neuropathic PainPI: Starla Jaramillo Research Coordinator: Norma DelacruzCommentsEstablished PatientFollow UpReasonOnset DateCommentsEMG 08/24/2023SpecialtyDiagnoses / ProceduresReferred By ContactReferred To Contact [facility] Diagnoses Left leg weakness Disturbance of skin sensation Procedures EMG(NEURO/NI) NERVE CONDUCTION STUDIES 9-10 STUDIES Sheryl Garza APRN.MATERIAL FLOW ENGINEER [address] [place] [address] [facility] [place] [address] [place] [address] Referral IDStatusReasonStart DateExpiration DateVisits RequestedVisits [id number] Auto-Generated Referral /[id number]nipqJwjrjtjiahtsudge suppliesReason CommentsNew PatientNEW NI MEDICALSpecialtyDiagnoses / ProceduresReferred By ContactReferred To ContactNeurology Diagnoses Labile blood pressure Abnormal saccadic eye movement Pursuit movement deficiency Postural instability Procedures CONSULT TO NEUROLOGY OFFICE/OUTPATIENT [facility] 60 MINUTES Sheryl Garza APRN.MATERIAL FLOW ENGINEER [address] [phone] Referral IDStatusReasonStart DateExpiration DateVisits RequestedVisits [id number] PCP Requested Referral /[id number]kbnaTdgpn DateCommentsRefill Request 4ReasonCommentsMedical Nutrition TherapyDiabetes/ Abnormal weight gain managementSpecialtyDiagnoses / ProceduresReferred By ContactReferred To Contact Diagnoses Type 2 diabetes mellitus with stage 3a chronic kidney disease, without long-term current use of insulin (HCC) Abnormal weight gain Procedures ENDOCRINOLOGY DIETITIAN VISIT (MNT) MEDICAL NUTRITION ASSMT&IVNTJ INDIV EACH 15 ME MEDICAL NUTRITION ASSMT&IVNTJ INDIV EACH 15 ME MEDICAL NUTRITION ASSMT&IVNTJ INDIV EACH 15 ME MEDICAL NUTRITION ASSMT&IVNTJ INDIV EACH 15 ME Lorraine Oneill MD [facility] [place] [address] Referral IDStatusReasonStart DateExpiration DateVisits RequestedVisits [id number] PCP Requested Referral /[id number]ocrePemgarggWwmljloil MRISpecialty Diagnoses / ProceduresReferred By ContactReferred To ContactMR IMAGING Diagnoses Labile blood pressure Abnormal saccadic eye movement Pursuit movement deficiency Other symptoms and signs involving the nervous system Procedures MRI BRAIN WO/W IVCON MRI BRAIN BRAIN STEM W/O W/CONTRAST MATERIAL Sheryl Garza, [place] [address] [facility] [place] [address] Referral IDStatusReasonStart DateExpiration DateVisits RequestedVisits [id number] Auto-Generated Referral /[id number] QuestionPatient called to ask for assistance with [...] W/O CONTRAST MATRL Steve Wagoner MD [address] [place] [address] [facility] [place] [address] Referral IDStatusReasonStart DateExpiration DateVisits RequestedVisits [id number] Auto-Generated Referral [id number] / ProceduresReferred By ContactReferred To ContactMR IMAGING Diagnoses Spinal stenosis of lumbar region, unspecified whether neurogenic claudication present Lumbosacral spondylosis with radiculopathy Procedures MRI LUMBAR SPINE WO IVCON MRI SPINAL CANAL LUMBAR W/O CONTRAST MATERIAL Steve Wagoner MD [address] [place] [address] [facility] [place] [address] [facility] DateExpiration DateVisits RequestedVisits [id number] Auto-Generated Referral [id number]w PatientFollow UpSpecialtyDiagnoses / ProceduresReferred By ContactReferred To Contact Procedures CARDIOVASCULAR MEDICINE OP FOLLOW UP APPT ORDER Andrea Lees MD [address] [place] [address] Referral IDStatusReasonLogan DateExpiration DateVisits RequestedVisits [id number] Not Required PCP Requested Referral [id number] Nutrition TherapyDiabetes/ Weight management follow-upSpecialtyDiagnoses / ProceduresReferred By ContactReferred To ContactBR IMAGING Diagnoses Breast disease Procedures ITALO DIAGNOSTIC BILATERAL DIAGNOSTIC MAMMOGRAPHY COMPUTER-AIDED DETCJ BI Heather Ford MD [address] [place] [address] [facility] [address] [place], [place] [phone] Referral IDStatusReasonStart DateExpiration DateVisits RequestedVisits [id number] Auto-Generated Referral [id number]a PatientReasonCommentsProcedure SpecialtyDiagnoses / ProceduresReferred By ContactReferred To ContactREHAB AND SPORTS THERAPY INS Diagnoses 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athy (HCC) Imbalance Procedures CONSULT TO PHYSICAL THERAPY PHYSICAL THERAPY EVALUATION HIGH COMPLEX 45 MINS Sheryl Schwartz, MULTIMEDIA SPECIALIST.MATERIAL FLOW ENGINEER [address] [place] [address] [facility] [place] [address] Referral IDStatusReasonStart DateExpiration DateVisits RequestedVisits [id number] PCP Requested Referral Auto-Generated Referral /[id number]xxjiPunzlceoMotxgrc UpdateReason CommentsPatient UpdateMedication UpdateReasonCommentsPreparations For Procedures ReasonCommentsPost Injection callReasonOnset DateCommentsRefill Request 4ReasonCommentsFollow UpLeg PainLow Back PainReasonOnset DateComments Refill Rggccvh55/11/2024ReasonOnset DateCommentsRefill Uzscrtu38/20/2024Reason Onset DateCommentsRefill Skjnsly58/12/2024ReasonCommentsMedical Nutrition TherapyDiabetes management follow-upReasonCommentsMedication ProblemReason CommentsPrior AuthorizationMounjaroReasonCommentsRadio Gen RMPSpecialtyDiagnoses / ProceduresReferred By ContactReferred To ContactXR IMAGING Diagnoses Fall, initial encounter Procedures XR HIP GENERAL 3V PELV/AP/LAT RIGHT RADEX HIP UNILATERAL WITH PELVIS 2-3 VIEWS Steve Wagoner MD [address] [place] [address] [facility] [place] [address] Referral IDStatusReasonStart DateExpiration DateVisits RequestedVisits [id number] Auto-Generated Referral [id number]rtqGdjuubgcDouiypwovgsc for ProcedureMychartReasonCommentsPreperations for Procedure CallReasonComments Preperations for [...] present Procedures CONSULT TO SPINE SURGERY OFFICE/OUTPATIENT [facility] 60 MINUTES Steve Wagoner MD [address] [place] [address] Phone: tel: fax: Referral IDStatusReasonStart DateExpiration DateVisits RequestedVisits [id number] PCP Requested Referral 1ReasonOnset DateCommentsRefill Jcsxhxa1610/26/2024 Care Teams (unrecognized sec tion and content) Team Status: Active Member Role Status Dates Erich Gillis DO Primary Care Provider Active Team Status: Inactive Member Role Status Dates Erich Gillis DO Primary Care Provider, Attending Provi jair Active Team MemberRelationshipSpecialtyStart DateEnd Date Erich Gillis [address] [place] [phone] PCP - General10/28/09 No, Referral Referring12/29/17 Da King MD [address] [place] [address] Primary Staff PhysicianCardiology06/27/18Team MemberRelationshipSpecialtyStart DateEnd [facility] Erich Gillis [place] [phone] PCP - General10/28/09 No, Referral Referring12/29/17 Da King MD [address] [place] [phone] Primary Staff PhysicianCardiology06/27/18Team MemberRelationshipSpecialtyStart DateEnd Date ArsenioKesha [place] [phone] PCP - General10/28/09 No, Referral Referring12/29/17 Da King MD [address] [phone] Primary Staff PhysicianCardiology06/27/18Team MemberRelationshipSpecialtyStart DateEnd Date Kesha [place] [phone] PCP - General10/28/09 No, Referral Referring12/29/17 Da King MD [address] [phone] Primary Staff PhysicianCardiology06/27/18Team MemberRelationshipSpecialtyStart DateEnd Date Arsen[address] [phone] PCP - [facility]10/28/09 No, Referral Referring12/29/17 Da King MD [address] [place] [address] Primary Staff PhysicianCardiology3Team MemberRelationshipSpecialtyStart DateEnd Date Erich Gillis [place] [phone] PCP - General10/28/09 No, Referral Referring12/29/17 Da King MD [address] [place] [address] Primary Staff PhysicianCardiology3Team MemberRelationshipSpecialtyStart DateEnd Date [place] [phone] PCP - General10/28/09 No, Referral Referring12/29/17 Da King MD [address] [place] [address] Primary Staff PhysicianCardiology3Team MemberRelationshipSpecialtyStart DateEnd Date K[place] [phone] PCP - General10/28/09 No, Referral Referring12/29/17 Da King MD [address] [place] [address] Primary Staff PhysicianCardiology3Team MemberRelationshipSpecialtyStart DateEnd Date Kesha GillisDavid Ville [phone] PCP - General10/28/09 No, Referral Referring12/29/17 Da King MD [address] [place] [address] Primary Staff PhysicianCardiology06/27/18Team MemberRelationshipSpecialtyStart DateEnd Date Erich GillisMichelle Ville [phone] PCP - General10/28/09 No, Referral Referring12/29/17 Da King MD [address] [place] [address] Primary Staff PhysicianCardiology06/27/18Team MemberRelationshipSpecialtyStart DateEnd Date ArsenioErich saenz [place] [phone] PCP - General10/28/09 No, Referral Referring12/29/17 Da King MD [address] [place] [address] Primary Staff PhysicianCardiology06/27/18Team MemberRelationshipSpecialtyStart DateEnd Date ArsenioErich saenz [place] [phone] PCP - General10/28/09 No, Referral Referring12/29/17 Da King MD [address] [place] [address] Primary Staff PhysicianCardiology06/27/18 Team Status: Inactive Member Role Status Dates Erich Gillis DO Primary Care Provider Active Misty Marshall ProviderActive Team Status: Inactive Member Role Status Dates Erich Gillis , Primary Care Provider Active Erich Gillis DO CHCAttending ProviderActiveTeam MemberRelationshipSpecialtyStart DateEnd Date CarlinEricher [address] [place] [phone] PCP - General10/28/09 No, Referral Referring12/29/17 Da King MD [address] [place] [address] Primary Staff PhysicianCardiology06/27/18Team MemberRelationshipSpecialtyStart DateEnd Date ArsenioAllison [place] [phone] PCP - General10/28/09 No, Referral Referring12/29/17 Da King MD [address] [place] [address] Primary Staff PhysicianCardiology06/27/18Team MemberRelationshipSpecialtyStart DateEnd Date [place] [phone] PCP - General7 No, Referral Referring12/29/17 Da King MD [address] [place] [address] Primary Staff PhysicianCardiology06/27/18Team MemberRelationshipSpecialtyStart DateEnd Date [place] [phone] PCP - General10/28/09 No, Referral Referring12/29/17 Da King MD [address] [place] [address] Primary Staff PhysicianCardiology06/27/18Team MemberRelationshipSpecialtyStart DateEnd Date ArsenioKesha saenz[address] [address] PCP - General710 No, Referral Referring12/29/17 Da King MD [address] [place], [place] [id number] Primary Staff PhysicianCardiology06/27/18Team MemberRelationshipSpecialtyStart DateEnd Date Erich Gillis [address] [place], [place] [phone] PCP - General10/28/09 No, Referral Referring12/29/17 Da King MD [address] [place] [address] Primary Staff PhysicianCardiology06/27/18Team MemberRelationshipSpecialtyStart DateEnd Date Erich Gillis [address] [place] [phone] PCP - General10/28/09 No, Referral Referring12/29/17 Da King MD [address] [place] [address] Primary Staff PhysicianCardiology06/27/18 Team Status: Inactive Member Role Status Dates Erich Gillis DO Primary Care Provider Active Madi lAmonte , [facility] ProviderActiveTeam MemberRelationshipSpecialtyStart DateEnd Date Erich Gillis [address] [place] [phone] PCP - General10/28/09 No, Referral Referring12/29/17 Da King MD [address] [place] [address] Primary Staff PhysicianCardiology06/27/18Team MemberRelationshipSpecialtyStart DateEnd Date Erich Gillis [address] [place], [place] [phone] PCP - General10/28/09 No, Referral Referring12/29/17 Da King MD [address] [place] [address] Primary Staff PhysicianCardiology06/27/18Team MemberRelationshipSpecialtyStart DateEnd Date Erich Gillis [address] [place], [place] [phone] PCP - General10/28/09 No, Referral Referring12/29/17 Da King MD [address] [place] [address] Primary Staff PhysicianCardiology06/27/18Team MemberRelationshipSpecialtyStart DateEnd Date Erich Gillis [address] [place], [place] [phone] PCP - General10/28/09 No, Referral Referring12/29/17 Da King MD [address] [place] [id number] Primary Staff PhysicianCardiology06/27/18Team MemberRelationshipSpecialtyStart DateEnd Date Erich Gillis [address] [place], [place] [phone] PCP - General10/28/09 No, Referral Referring12/29/17 Da King MD [address] [place] [address] Primary Staff PhysicianCardiology06/27/18Team MemberRelationshipSpecialtyStart DateEnd [facility] Erich Gillis [address] [place], [place] [phone] PCP - General10/28/09 No, Referral Referring12/29/17 Da King MD [address] [place] [id number] Primary Staff PhysicianCardiology06/27/18Team MemberRelationshipSpecialtyStart DateEnd [facility] Erich Gillis [address] [place] [phone] PCP - General10/28/09 No, Referral Referring12/29/17 aD King MD [address] [place] [address] Primary Staff PhysicianCardiology06/27/18 Team Status: Active Member [...] 19, 2023Team MemberRelationshipSpecialtyStart DateEnd Date Erich Gillis [address] [place], [place] [phone] PCP - General10/28/09 No, Referral Referring12/29/17 Da King MD [address] [place] [address] Primary Staff PhysicianCardiology06/27/18Team MemberRelationshipSpecialtyStart DateEnd Date Erich Gillis [address] [place] [phone] PCP - General10/28/09 No, Referral Referring12/29/17 Da King MD [address] [place], [place] [id number] Primary Staff PhysicianCardiology06/27/18Team MemberRelationshipSpecialtyStart DateEnd Date Erich Gillis [address] [place], [place] [phone] PCP - General10/28/09 No, Referral Referring12/29/17 Da King MD [address] [place], [place] [id number] Primary Staff PhysicianCardiology06/27/18Team MemberRelationshipSpecialtyStart DateEnd Date Erich Gillis [address] [place], [place] [phone] PCP - General10/28/09 No, Referral Referring12/29/17 Da King MD [address] [place] [address] Primary Staff PhysicianCardiology06/27/18 Team Status: Active Member Role Status Dates Erich Gillis DO Primary Care Provide r, Attending Provider Active Start: July 26, 2023 Team Status: Inactive Member Role Status Dates Erich Gillis DO Primary Care Provide r, Attending Provider Active Start: August 31, 2023 End: August 31, 2023Team MemberRelationshipSpecialtyStart DateEnd Date Erich Gillis [address] [place], [place] [phone] PCP - General10/28/09 No, Referral Referring12/29/17 Da King MD [address] [place] [address] Primary Staff PhysicianCardiology06/27/18Team MemberRelationshipSpecialtyStart DateEnd Date Erich Gillis [address] [place], [place] [phone] PCP - General10/28/09 No, Referral Referring12/29/17 Da King MD [address] [place] [id number] Primary Staff PhysicianCardiology06/27/18Team MemberRelationshipSpecialtyStart DateEnd Date Erich Gillis [address] [place] [address] PCP - General10/28/09 No, Referral Referring12/29/17 Da King MD [address] [place] [address] Primary Staff PhysicianCardiology06/27/18Team MemberRelationshipSpecialtyStart DateEnd Date Erich Gillis [address] [place], [place] [phone] PCP - General10/28/09 No, Referral Referring12/29/17 Da King MD [address] [place] [id number] Primary Staff PhysicianCardiology06/27/18 Team Status: Active Member Role Status Dates Erich Gillis DO Primary Care Provider Active Sta rt: September 19, 2023 Jordan Lim ProviderActiveStart: September 19, 2023 Team Status: Inactive Member Role Status Dates Erich Gillis DO Primary Care Provide r, Attending Provider Active Start: October 03, 2023 End: October 03, 2023Team MemberRelationshipSpecialtyStart DateEnd Date Erich Gillis [address] [place], [place] [phone] PCP - General10/28/09 No, Referral Referring12/29/17 Da King MD [address] [place] [address] Primary Staff PhysicianCardiology06/27/18Team MemberRelationshipSpecialtyStart DateEnd Date Erich Gillis [address] [place], [place] [phone] PCP - General10/28/09 No, Referral Referring12/29/17 Da King MD [address] [place] [id number] Primary Staff PhysicianCardiology06/27/18Team MemberRelationshipSpecialtyStart DateEnd Date Erich Gillis [address] [place], [place] [phone] PCP - General10/28/09 No, Referral Referring12/29/17 Da King MD [address] [place], [place] [address] Primary Staff PhysicianCardiology06/27/18Team MemberRelationshipSpecialtyStart DateEnd Date Erich Gillis [address] [place], [place] [phone] PCP - General10/28/09 No, Referral Referring12/29/17 Da King MD [address] [place] [address] Primary Staff PhysicianCardiology06/27/18 Team Status: Active Member Role Status Dates Erich Gillis DO Primary Care Provider Active Sta rt: October 06, 2023 Eri Capelety , TELEPHONE ENGINEER-CAttending ProviderActiveStart: October 06, 2023 Team Status: Inactive Member Role Status Dates Erich Gillis DO Primary Care Provide r, Attending Provider Active Start: November 22, 2023 End: November 22, 2023Team MemberRelationshipSpecialtyStart DateEnd Date Erich Gillis [address] [place], [place] [phone] PCP - General10/28/09 No, Referral Referring12/29/17 Da King MD [address] [place] [address] Primary Staff PhysicianCardiology06/27/18Team MemberRelationshipSpecialtyStart DateEnd Date Erich Gillis [address] [place] [address] PCP - General10/28/09 No, Referral Referring12/29/17 Da King MD [address] [place] [address] Primary Staff PhysicianCardiology06/27/18Team MemberRelationshipSpecialtyStart DateEnd Date Erich Gillis [address] [place] [phone] PCP - General10/28/09 No, Referral Referring12/29/17 Da King MD [address] [place] [id number] Primary Staff PhysicianCardiology06/27/18Team MemberRelationshipSpecialtyStart DateEnd Date Erich Gillis [address] [place], [place] [phone] PCP - General10/28/09 No, Referral Referring12/29/17 Da King MD [address] [place] [id number] Primary Staff PhysicianCardiology06/27/18Team MemberRelationshipSpecialtyStart DateEnd Date Erich Gillis [address] [place], [place] [phone] PCP - General10/28/09 No, Referral Referring12/29/17 Da King MD [address] [place] [address] Primary Staff PhysicianCardiology06/27/18Team MemberRelationshipSpecialtyStart DateEnd Date Erich Gillis [address] [place], [place] [phone] PCP - General10/28/09 No, Referral Referring12/29/17 Da King MD [address] [place] [id number] Primary Staff PhysicianCardiology3Team MemberRelationshipSpecialtyStart DateEnd Date Erich Gillis [address] [place] [phone] PCP - General10/28/09 No, Referral Referring12/29/17 Da King MD [address] [place] [address] Primary Staff PhysicianCardiology06/27/18 Team Status: Inactive Member Role Status Dates Erich Gillis DO Primary Care Provide r, Attending Provider Active Start: December 22, 2023 End: December 22, 2023Team MemberRelationshipSpecialtyStart DateEnd Date Erich Gillis [address] [place], [place] [phone] PCP - General10/28/09 No, Referral Referring12/29/17 Da King MD [address] [place] [address] Primary Staff PhysicianCardiology06/27/18Team MemberRelationshipSpecialtyStart DateEnd Date Erich Gillis [address] [place], [place] [phone] PCP - General10/28/09 No, Referral Referring12/29/17 Da King MD [address] [place] [address] Primary Staff PhysicianCardiology06/27/18Team MemberRelationshipSpecialtyStart DateEnd Date Erich Gillis [address] [place] [address] PCP - General10/28/09 No, Referral Referring12/29/17 Da King MD [address] [place] [address] Primary Staff PhysicianCardiology06/27/18Team MemberRelationshipSpecialtyStart DateEnd Date Erich Gillis [address] [place], [place] [phone] PCP - General10/28/09 No, Referral Referring12/29/17 Da King MD [address] [place] [id number] Primary Staff PhysicianCardiology06/27/18Team MemberRelationshipSpecialtyStart DateEnd Date Erich Gillis [address] [place], [place] [phone] PCP - General10/28/09 No, Referral Referring12/29/17 Da King MD [address] [place] [address] Primary Staff PhysicianCardiology06/27/18Team MemberRelationshipSpecialtyStart DateEnd Date Erich Gillis [address] [place], [place] [phone] PCP - General10/28/09 No, Referral Referring12/29/17 Da King MD [address] [place] [address] Primary Staff PhysicianCardiology06/27/18 Team Status: Inactive Member Role Status Dates Erich Kuns , DO Primary Care Provider Active Sta rt: February 08, 2024 End: February 07olleen Misty Ramires ProviderActiveStart: February 08, 2024 End: February 08, 2024Team MemberRelationshipSpecialtyStart DateEnd Date Erich Gillis [address] [place], [place] [phone] PCP - General10/28/09 No, Referral Referring12/29/17 Da King MD [address] [place] [address] Primary Staff PhysicianCardiology06/27/18 Team Status: [...] 2024 Team MemberRelationshipSpecialtyStart DateEnd Date Erich Gillis [address] [place] [phone] PCP - General10/28/09 No, Referral Referring12/29/17 Da King MD [address] [place], [place] [id number] Primary Staff PhysicianCardiology06/27/18Team MemberRelationshipSpecialtyStart DateEnd Date Erich Gillis [address] [place] [phone] PCP - General10/28/09 No, Referral Referring12/29/17 Da King MD [address] [place] [address] Primary Staff PhysicianCardiology06/27/18 Team Status: Inactive Member Role Status Dates Erich Gillis DO Primary Care Provider Active Sta rt: May 09, 2024 End: May 09Misty Kirkland ProviderActiveStart: May 09, 2024 End: May 09, 2024 Team Status: Active Member Role Status Dates Meliton Smith MD Specialist Active Lauren Reddy [facility] ManagerActiveLorraine DegrootpecialistActiveCamKENYATTA HaddadpecialistActiveCoKENYATTA WatkinspecialistActiveAndnilda Downs MD SpecialistActiveReji Bentley , RAZIA [facility] MIDWEST CITYpecialistARimma Gillis DO Primary Care ProviderActive Team Status: [...] 12, 2024Team MemberRelationshipSpecialtyStart DateEnd Date Erich Gillis [address] [place] [phone] PCP - General10/28/09 No, Referral Referring12/29/17 Da King MD [address] [place] [address] Primary Staff PhysicianCardiology06/27/18Team MemberRelationshipSpecialtyStart DateEnd Date Erich Gillis [address] [place], [place] [phone] PCP - General10/28/09 No, Referral Referring12/29/17 Da King MD [address] [place] [id number] Primary Staff PhysicianCardiology06/27/18 Team Status: Active Member Role Status Dates Erich Gillis DO Primary Care Provider Active Sta rt: July 23, 2024 Karl Cook , TELEPHONE ENGINEER-CAttending ProviderActiveStart: July 23, 2024 Team Status: Inactive Member Role Status Dates Erich Gillis DO Primary Care Provide r, Attending Provider Active Start: September 12, 2024 End: September 12, 2024Team MemberRelationshipSpecialtyStart DateEnd Date Erich Gillis [address] [place], [place] [phone] PCP - General10/28/09 No, Referral Referring12/29/17 Da King MD [address] [place] [id number] Primary Staff PhysicianCardiology06/27/18Team MemberRelationshipSpecialtyStart DateEnd Date Erich Gillis [address] [place], [place] [phone] PCP - General10/28/09 No, Referral Referring12/29/17 Da King MD [address] [place] [id number] Primary Staff PhysicianCardiology3Team MemberRelationshipSpecialtyStart DateEnd Date Erich Gillis [address] [place], [place] [phone] PCP - General10/28/09 No, Referral Referring12/29/17 Da King MD [address] [place] [address] Primary Staff PhysicianCardiology06/27/18Team MemberRelationshipSpecialtyStart DateEnd Date Erich Gillis [address] [place], [place] [phone] PCP - General10/28/09 No, Referral Referring12/29/17 Da King MD [address] [place] [address] Primary Staff PhysicianCardiology3Team MemberRelationshipSpecialtyStart DateEnd Date Erich Gillis [address] [place], [place] [phone] PCP - General10/28/09 No, Referral Referring12/29/17 Da King MD [address] [place] [id number] Primary Staff PhysicianCardiology3Team MemberRelationshipSpecialtyStart DateEnd Date Erich Gillis [address] [place], [place] [phone] PCP - General10/28/09 No, Referral Referring12/29/17 Da King MD [address] [place] [address] Primary Staff PhysicianCardiology06/27/18 Team Status: Active Member [...] Meliton Smith MD Specialist Active Lauren Reddy [facility] ManagerActivePascack Valley Medical Centerflower DegrootpecialistActiveCamKENYATTA HaddadpecialistActiveCollKENYATTA CardonapecialistActiveAndnilda Downs MD SpecialistActivePeRice DPM [facility] MID[facility] CITYpecialistARimma Gillis DO Primary Care ProviderActive Team Status: [...] section and content) DATE CREATED AUTHOR 05/31/2023 [facility] DATE CREATED AUTHOR AUTHOR'S ORGANIZ ATION 02/08/2024 [facility] DATE CREATED AUTHOR AUTHOR'S ORGANIZ ATION 2024 [facility] DATE CREATED AUTHOR AUTHOR'S ORGANIZ ATION 05/27/2024 [facility] DATE CREATED AUTHOR AUTHOR'S ORGANIZ ATION 06/14/2024 [facility] DATE CREATED AUTHOR AUTHOR'S ORGANIZ ATION 01/20/2025 [facility] DATE CREATED AUTHOR AUTHOR'S ORGANIZ ATION 02/14/2025 [facility] FOR RECORDS PERTAINING TO PATIENTS WHO [...] BE BASED ON THE PRIMARY CLINICAL RECORDS. [email or web address] [facility]. provides no warranty or guarantee of the accuracy or completeness of information in this document.
== END 2025-03-21 08:25 | disposition home or self-care (01) ==
LOC: MRI 08:24
PROVIDERS: PCP Family Medicine; Visit Provider Podiatrist Foot & Ankle Surgery
DX: M76.71 Peroneal tendinitis, right leg (principal)
CPT/HCPCS: 73721